=== PATIENT | female | born 1950 | race Caucasian/White ===

== ENCOUNTER → 2017-10-01 07:11 | Outpatient (CLI) | payer MEDICARE, BC, SELFPAY ==
[2017-10-01 09:07] LABS: Add Manual Diff / Slide Review NO; Basophils Percent Auto 1.2 % (0-2); Eosinophils Percent Auto 5.7 % (2-4); Hematocrit 38.4 % (36-46); Hemoglobin 12.8 g/dL (12.0-16.0); Lymphocytes Percent Auto 23.9 % (25-40); Mean Corpuscular HGB Conc 33.4 % (30-36); Mean Corpuscular Hemoglobin 29.2 PG (26-34); Mean Corpuscular Volume 87.4 fL (80-100); Monocytes Percent Auto 8.1 % (3-14); Neutrophils Absolute Auto 4800 /uL (3000-5900); Neutrophils Percent Auto 61.1 % (50-75); Platelet Count 230 X10^3/uL (150-400); Red Blood Cell Count 4.39 X10^6/uL (4.0-5.2); Red Cell Distribution Width 13.9 % (11.6-14.8); White Blood Cell Count 7.9 X10^3/uL (4.5-11.0)
[2017-10-01 09:28] LABS: Alanine Aminotransferase 38 IU/L (9-52); Albumin 4.1 g/dL (3.5-5.0); Albumin Globulin Ratio 1.8 (1.0-2.8); Alkaline Phosphatase 85 U/L (38-126); Aspartate Aminotransferase 27 IU/L (14-36); BUN Creatinine Ratio 17.5 (6-22); Bilirubin Total 0.5 mg/dL (0.2-1.3); Calcium 9.5 mg/dL (8.4-10.2); Creatine Kinase 110 U/L (30-135); Estimated Glomerular Filt Rate > 60.0 mL/min (>60); Globulin 2.3 g/dL (1.7-4.1); Glucose 88 mg/dL (80-110); HEMOLYSIS < 15 (0-50); Potassium 4.4 mmol/L (3.4-5.1); Sodium 141 mmol/L (137-145); Total Protein 6.4 g/dL (6.3-8.2)
[2017-10-03 12:59] LABS: Aldolase 5.2 U/L (< 8.2)
== END ==
PROVIDERS: PCP Family Medicine; Visit Provider Psychiatry & Neurology Neurology
DX: M60.9 Myositis, unspecified (principal)
CPT/HCPCS: 36415; 80053; 82085; 82550; 85025

== ENCOUNTER 2017-11-08 13:08 | Emergency (ER) | payer MEDICARE, BC, SELFPAY ==
[2017-11-08 13:23] VITALS: BP 160/96; PULSE 66; RESP 16; TEMP 36.4; O2SAT 97; BMI 32.8
[2017-11-08 13:36] LABS: Bacteria Urine None Seen; RBC Urine None Seen (0-5/HPF); WBC Urine None Seen (0-5/HPF)
[2017-11-08 13:37] LABS: Appearance Urine UA CLEAR; Bilirubin Urine UA NEGATIVE (NEGATIVE); Color Urine UA YELLOW; Glucose Urine UA NEGATIVE (Normal); Ketones Urine UA NEGATIVE (NEGATIVE); Leukocyte Esterase Urine UA NEGATIVE (NEGATIVE); Nitrite Urine UA Negative (Negative); Occult Blood Urine UA NEGATIVE (Negative); Protein Urine UA NEGATIVE (Negative); Urobilinogen Urine UA 0.2 E.U./dL (0.2)
[2017-11-08 13:43] LABS: Culture Indicated Urine Cult Not Indicated; Urine Comments Microscopic Normal
--- NOTE | 2017-11-08 14:01 | ED.ABDPAIN ---
HPI - Abdominal Pain <JENAE Moncada - Last Filed: 11/08/17 21:30> General Chief Complaint: Abdominal Pain Stated Complaint: Pt states possible pendicitis Time Seen by Provider: 11/08/17 13:32 History of Present Illness HPI narrative: 67-year-old female here for complaint of a right lower quadrant pain that started yesterday. She denies any trauma to the abdomen. She denies any stressor or relievers of the pain. Her last bowel movement was earlier today and was normal. No vomiting. She has had periodic nausea. No urinary symptoms. She was seen at walk-in clinic earlier today and was sent to the emergency room for further evaluation. She denies any other concerns or complaints at this time. MD complaint: abdominal pain Related Data Home Medications Medication Instructions Recorded Confirmed [turmeric] #0 05/17/16 11/08/17 coQ10 (ubiquinol) #0 05/17/16 11/08/17 vitamin B complex [B 1 tab PO QDAY #0 05/17/16 11/08/17 Complex-Vitamin B12] aspirin 81 mg PO QDAY #0 01/25/17 11/08/17 amlodipine [Norvasc] 2.5 mg PO QDAY #0 03/27/17 11/08/17 Previous Rx's Medication Instructions Recorded aripiprazole [Abilify] 10 mg PO QDAY #90 tab 06/09/17 neomycin-polymyxin B-dexameth 1 drp OP TID #5 ml 09/03/17 clobetasol 0.05 % topical ointment See Label Instructions TOP BID #15 10/23/17 gram hydrochlorothiazide 25 mg tablet 12.5 mg PO QDAY #90 tab 11/02/17 Allergies Allergy/AdvReac Type Severity Reaction Status Date / Time cimetidine [From TAGAMET] Allergy Mild hallucinati Verified 11/08/17 12:29 ons codeine [CODEINE] Allergy Mild hallucinati Verified 11/08/17 12:29 ons lisinopril [LISINOPRIL] Allergy Mild cough/GI Verified 11/08/17 12:29 issues ranitidine [From ZANTAC] Allergy Mild hallucinati Verified 11/08/17 12:29 ons Review of Systems <JENAE Moncada - Last Filed: 11/08/17 21:30> Constitutional Denies chills, Denies fatigue, Denies fever(s), Denies lethargy and Denies weakness Eyes Denies change in vision, Denies eye discharge, Denies irritation and Denies loss of vision ENT Ears, Nose, Mouth, and Throat: Denies change in voice, Denies neck pain and Denies sore throat Cardiovascular Denies dyspnea and Denies dyspnea on exertion Respiratory Denies cough, Denies dyspnea, Denies dyspnea on exertion and Denies wheezing Gastrointestinal Gastrointestinal: Reports abdominal pain and Reports nausea Genitourinary Denies hematuria, Denies flank pain, Denies urinary incontinence and Denies urinary urgency Musculoskeletal Denies neck pain Integumentary/Breasts Denies pruritus, Denies erythema, Denies rash and Denies wounds Neurologic Denies confusion, Denies loss of vision and Denies weakness Psychiatric Denies anxiety, Denies confusion, Denies depression, Denies homicidal ideation and Denies suicidal ideation Endocrine Denies fatigue and Denies flushing Hematologic/Lymphatic Denies easy bruising Allergic/Immunologic Denies wheezing Exam <JENAE Moncada - Last Filed: 11/08/17 21:30> Initial Vital Signs Initial Vital Signs: Vital Signs Temperature 97.6 F 11/08/17 13:23 Pulse Rate 66 11/08/17 13:23 Respiratory Rate 16 11/08/17 13:23 Blood Pressure 160/96 H 11/08/17 13:23 Pulse Oximetry 97 11/08/17 13:23 Const General: cooperative and well developed Nutritional Appearance: well nourished Orientation: alert, awake, oriented x3 and not confused [facility] Mouth: oral mucosae normal, oropharynx normal and moist mucous membranes Eyes General: appearance normal, both eyes and all related structures Eyelids: eyelids normal Conjunctivae: conjunctivae normal Sclera: sclerae normal Pupils: PERRL EOM: EOM intact bilaterally Resp Effort & Inspection: normal respiratory effort, able to speak in complete sentences, no respiratory distress and no use of accessory muscles Auscultation: clear to auscultation bilaterally, no rales, no rhonchi and no wheezes Cardio Rate: regular rate Rhythm: regular rhythm Heart Sounds: no click, no gallops, no murmurs and no rubs GI Inspection: normal to inspection Palpation: soft, no hepatosplenomegaly, No guarding, No pulsatile mass and tender Auscultation: normal bowel sounds General: No CVA tenderness Skin General: no rashes or lesions noted, No jaundice and No petechiae <DO Fernando Pan Last Filed: 11/09/17 07:17> Initial Vital Signs Initial Vital Signs: Vital Signs Temperature 97.6 F 11/08/17 13:23 Pulse Rate 66 11/08/17 13:23 Respiratory Rate 16 11/08/17 13:23 Blood Pressure 160/96 H 11/08/17 13:23 Pulse Oximetry 97 11/08/17 13:23 Course <JENAE Moncada - Last Filed: 11/08/17 21:30> Orders Ordered: Discontinued Medications Sodium Chloride (Normal Saline 0.9%) 1,000 mls @ 150 mls/hr IV CONT FREDDIE Last Infusion: 11/08/17 16:39 Dose: 0 mls/hr Admin: 11/08/17 15:00 Dose: 150 mls/hr Vital Signs - 8 hr 11/08/17 16:44 Pulse Rate 74 Respiratory Rate 15 Blood Pressure [Left Arm] 144/86 H Pulse Oximetry 96 <Declan Bond DO - Last Filed: 11/09/17 07:17> Orders Ordered: Discontinued Medications Sodium Chloride (Normal Saline 0.9%) 1,000 mls @ 150 mls/hr IV CONT FREDDIE Last Infusion: 11/08/17 16:39 Dose: 0 mls/hr Admin: 11/08/17 15:00 Dose: 150 mls/hr Vital Signs - 8 hr 11/08/17 16:44 Pulse Rate 74 Respiratory Rate 15 Blood Pressure [Left Arm] 144/86 H Pulse Oximetry 96 MDM - Abdominal Pain <JENAE Moncada - Last Filed: 11/08/17 21:30> Lab Data Result diagrams: 11/08/17 14:35 11/08/17 14:35 Lab Results 11/08/17 11/08/17 11/08/17 Range/Units 13:28 14:35 14:35 WBC 7.0 (4.5-11.0) X10^3/uL RBC 4.56 (4.0-5.2) X10^6/uL Hgb 13.0 (12.0-16.0) g/dL Hct 39.3 (36-46) % MCV 86.3 (80-100) fL MCH 28.6 (26-34) PG MCHC 33.1 (30-36) % RDW 14.4 (11.6-14.8) % Plt Count 278 (150-400) X10^3/uL Neut % (Auto) 62.3 (50-75) % Lymph % (Auto) 26.4 (25-40) % Sac % (Auto) 6.9 (3-14) % Eos % (Auto) 3.2 (2-4) % Baso % (Auto) 1.2 (0-2) % Neut # (Auto) 4400 (2794-8232) /uL Sodium 143 (137-145) mmol/L Potassium 4.1 (3.4-5.1) mmol/L Chloride 103 (98-107) mmol/L Carbon Dioxide 28 (22-32) mmol/L BUN 10 (7-17) mg/dL Creatinine 0.70 (0.52-1.04) mg/dL Estimated GFR > 60.0 (>60) mL/min BUN/Creatinine Ratio 14.3 (6-22) Glucose 89 (80-110) mg/dL Calcium 10.1 (8.4-10.2) mg/dL Total Bilirubin 0.5 (0.2-1.3) mg/dL AST 32 (14-36) IU/L ALT 41 (9-52) IU/L Alkaline Phosphatase 108 (38-126) U/L Total Protein 7.2 (6.3-8.2) g/dL Albumin 4.4 (3.5-5.0) g/dL Globulin 2.8 (1.7-4.1) g/dL Albumin/Globulin Ratio 1.6 (1.0-2.8) Lipase 114 (23-300) U/L Urine Color Yellow Urine Appearance Clear Urine pH 7.0 (4.5-8.0) Ur Specific [place] 1.010 (1.000-1.035) Urine Protein Negative (Negative) Urine Glucose (UA) Negative (Normal) g/dL Urine Ketones Negative (NEGATIVE) Urine Occult Blood Negative (Negative) Urine Nitrate Negative (Negative) Urine Bilirubin Negative (NEGATIVE) Urine Urobilinogen 0.2 (0.2) E.U./dL Ur Leukocyte Esterase Negative (NEGATIVE) Urine RBC None seen (0-5/HPF) Urine WBC None seen (0-5/HPF) Urine Bacteria None seen (None) Ur Culture Indicated? Cult not indicated Micro UA Comment Microscopic normal Imaging Data CT scan - abdomen: Radiologist's impression: PROCEDURE: CT ABDOMEN PELVIS W CON INDICATIONS: Pain right lower quadrant TECHNIQUE: After the administration of intravenous contrast, 5 mm thick sections acquired from the diaphragm to the symphysis. 5 mm coronal and sagittal reformats were acquired. For radiation dose reduction, the following was used: automated exposure control, adjustment of mA and/or kV according to patient size. COMPARISON: [facility], CT, ABDOMEN/PELVIS WITH CONTRAST, 08/05/2015, 13:30. FINDINGS: Image quality: Excellent. ABDOMEN: Lung bases: Lung bases are clear. Heart size is normal. Solid organs: Hepatic steatosis.. Gallbladder surgically absent. Biliary system is non dilated. Pancreas enhances normally. Spleen is normal in size and enhancement. No adrenal nodules. Kidneys demonstrate normal size and enhancement, without hydronephrosis. Peritoneum and bowel: Bowel loops demonstrate normal wall thickness and caliber. No free fluid or air. Normal appendix. Colonic diverticulosis. Nodes and vessels: No retroperitoneal or mesenteric adenopathy by size criteria. Aorta and inferior vena cava are normal in size. Miscellaneous: No ventral hernias. PELVIS: Genitourinary: Bladder wall thickness is normal. Miscellaneous: 3.5 x 3.7 cm right inguinal hernia which contains bowel loops. No evidence of obstruction seen at this time Bones: Unchanged size and appearance of water attenuation lesion within the spinal canal at the level of the sacrum with expansile appearance, since 08/05/15. No vertebral body compression fractures. IMPRESSION: Right inguinal hernia containing bowel loops without evidence of obstruction. This was present on the prior study dated 08/05/15. Normal appendix. Colonic diverticulosis. Chronic and incidental findings as above. MDM Narrative Medical decision making narrative: CBC Chem panel and lipase were obtained were unremarkable. Urinalysis was negative for any abnormalities. CT of the abdomen was obtained was negative for any acute findings. CT does show inguinal hernia however appears to be stable based on CT from 2016. No obstruction is appreciated on CT. No emergent cause for her pain is found today. Signs and symptoms and negative findings present as abdominal wall discomfort. [id number] Tylenol as needed for any discomfort. Follow up with primary care provider in the next few days for re-evaluation. For any worsening symptoms return to the emergency room. <Declan Bond DO - Last Filed: 11/09/17 07:17> Lab Data Lab Results 11/08/17 11/08/17 11/08/17 Range/Units 13:28 14:35 14:35 WBC 7.0 (4.5-11.0) X10^3/uL RBC 4.56 (4.0-5.2) X10^6/uL Hgb 13.0 (12.0-16.0) g/dL Hct 39.3 (36-46) % MCV 86.3 (80-100) fL MCH 28.6 (26-34) PG MCHC 33.1 (30-36) % RDW 14.4 (11.6-14.8) % Plt Count 278 (150-400) X10^3/uL Neut % (Auto) 62.3 (50-75) % Lymph % (Auto) 26.4 (25-40) % Sac % (Auto) 6.9 (3-14) % Eos % (Auto) 3.2 (2-4) % Baso % (Auto) 1.2 (0-2) % Neut # (Auto) 4400 (3171-1651) /uL Sodium 143 (137-145) mmol/L Potassium 4.1 (3.4-5.1) mmol/L Chloride 103 (98-107) mmol/L Carbon Dioxide 28 (22-32) mmol/L BUN 10 (7-17) mg/dL Creatinine 0.70 (0.52-1.04) mg/dL Estimated GFR > 60.0 (>60) mL/min BUN/Creatinine Ratio 14.3 (6-22) Glucose 89 (80-110) mg/dL Calcium 10.1 (8.4-10.2) mg/dL Total Bilirubin 0.5 (0.2-1.3) mg/dL AST 32 (14-36) IU/L ALT 41 (9-52) IU/L Alkaline Phosphatase 108 (38-126) U/L Total Protein 7.2 (6.3-8.2) g/dL Albumin 4.4 (3.5-5.0) g/dL Globulin 2.8 (1.7-4.1) g/dL Albumin/Globulin Ratio 1.6 (1.0-2.8) Lipase 114 (23-300) U/L Urine Color Yellow Urine Appearance Clear Urine pH 7.0 (4.5-8.0) Ur Specific [place] 1.010 (1.000-1.035) Urine Protein Negative (Negative) Urine Glucose (UA) Negative (Normal) g/dL Urine Ketones Negative (NEGATIVE) Urine Occult Blood Negative (Negative) Urine Nitrate Negative (Negative) Urine Bilirubin Negative (NEGATIVE) Urine Urobilinogen 0.2 (0.2) E.U./dL Ur Leukocyte Esterase Negative (NEGATIVE) Urine RBC None seen (0-5/HPF) Urine WBC None seen (0-5/HPF) Urine Bacteria None seen (None) Ur Culture Indicated? Cult not indicated Micro UA Comment Microscopic normal Discharge Plan Departure Patient Disposition: Home, Self-Care Clinical Impression: Abdominal pain Discharge Date/Time: 11/08/17 16:45 Interventions: ED Discharge Assessment Last Done: 11/08/17 16:44 Instructions: DI for Abdominal Pain-Adult Activity Restrictions/Additional Instructions: Laboratory results today were unremarkable. Urinalysis was negative for any abnormalities. CT of the abdomen was obtained was negative for any acute findings. CT does show inguinal hernia however appears to be stable based on CT from 2016. CT does show diverticulosis with no diverticulitis. No obstruction is appreciated on CT. No emergent cause for her pain is found today. Signs and symptoms and negative findings present as abdominal wall discomfort. [id number] Tylenol as needed for any discomfort. Follow up with primary care provider in the next few days for re-evaluation. For any worsening symptoms return to the emergency room. Prescriptions: No Action vitamin B complex [B Complex-Vitamin B12] 1 EACH tablet 1 tab PO QDAY Qty: 0 RF: 0 coQ10 (ubiquinol) 100 MG capsule Qty: 0 RF: 0 [turmeric] Qty: 0 RF: 0 aspirin 81 MG tablet,delayed release (DR/EC) 81 mg PO QDAY Qty: 0 RF: 0 amlodipine [Norvasc] 2.5 MG tablet 2.5 mg PO QDAY Qty: 0 RF: 0 aripiprazole [Abilify] 10 MG tablet 10 mg PO QDAY Qty: 90 RF: 0 neomycin-polymyxin B-dexameth 5 ML drops,suspension 1 drp OP TID Qty: 5 RF: 0 hydrochlorothiazide 25 mg tablet 12.5 mg PO QDAY Qty: 90 RF: 1 clobetasol 0.05 % ointment See Label Instructions TOP BID Qty: 15 RF: 1 Referrals: Rowdy Saldaña MD [Primary Care Provider] - <Declan Bond DO - Last Filed: 11/09/17 07:17> Cosign ED Attending Cosmikeature Attestation: I was immediately available in the department for consultation. Documentation has been reviewed. I agree with assessment and plan.
--- NOTE | 2017-11-08 14:16 | DI.CT.S_ITS ---
PROCEDURE: CT ABDOMEN PELVIS W CON INDICATIONS: Pain right lower quadrant TECHNIQUE: After the administration of intravenous contrast, 5 mm thick sections acquired from the diaphragm to the symphysis. 5 mm coronal and sagittal reformats were acquired. For radiation dose reduction, the following was used: automated exposure control, adjustment of mA and/or kV according to patient size. COMPARISON: [facility], CT, ABDOMEN/PELVIS WITH CONTRAST, 08/05/2015, 13:30. FINDINGS: Image quality: Excellent. ABDOMEN: Lung bases: Lung bases are clear. Heart size is normal. Solid organs: Hepatic steatosis.. Gallbladder surgically absent. Biliary system is non dilated. Pancreas enhances normally. Spleen is normal in size and enhancement. No adrenal nodules. Kidneys demonstrate normal size and enhancement, without hydronephrosis. Peritoneum and bowel: Bowel loops demonstrate normal wall thickness and caliber. No free fluid or air. Normal appendix. Colonic diverticulosis. Nodes and vessels: No retroperitoneal or mesenteric adenopathy by size criteria. Aorta and inferior vena cava are normal in size. Miscellaneous: No ventral hernias. PELVIS: Genitourinary: Bladder wall thickness is normal. Miscellaneous: 3.5 x 3.7 cm right inguinal hernia which contains bowel loops. No evidence of obstruction seen at this time Bones: Unchanged size and appearance of water attenuation lesion within the spinal canal at the level of the sacrum with expansile appearance, since 08/05/15. No vertebral body compression fractures. IMPRESSION: Right inguinal hernia containing bowel loops without evidence of obstruction. This was present on the prior study dated 08/05/15. Normal appendix. Colonic diverticulosis. Chronic and incidental findings as above. Dictated by: Christian Kelley M.D. on 11/08/2017 at 15:48 Approved by: Christian Kelley M.D. on 11/08/2017 at 15:56
[2017-11-08 14:42] LABS: Add Manual Diff / Slide Review NO; Basophils Percent Auto 1.2 % (0-2); Eosinophils Percent Auto 3.2 % (2-4); Hematocrit 39.3 % (36-46); Lymphocytes Percent Auto 26.4 % (25-40); Mean Corpuscular HGB Conc 33.1 % (30-36); Mean Corpuscular Hemoglobin 28.6 PG (26-34); Mean Corpuscular Volume 86.3 fL (80-100); Monocytes Percent Auto 6.9 % (3-14); Neutrophils Absolute Auto 4400 /uL (3000-5900); Neutrophils Percent Auto 62.3 % (50-75); Platelet Count 278 X10^3/uL (150-400); Red Blood Cell Count 4.56 X10^6/uL (4.0-5.2); Red Cell Distribution Width 14.4 % (11.6-14.8)
[2017-11-08 14:53] LABS: Alanine Aminotransferase 41 IU/L (9-52); Albumin 4.4 g/dL (3.5-5.0); Albumin Globulin Ratio 1.6 (1.0-2.8); Alkaline Phosphatase 108 U/L (38-126); Aspartate Aminotransferase 32 IU/L (14-36); BUN Creatinine Ratio 14.3 (6-22); Bilirubin Total 0.5 mg/dL (0.2-1.3); Blood Urea Nitrogen 10 mg/dL (7-17); Calcium 10.1 mg/dL (8.4-10.2); Carbon Dioxide 28 mmol/L (22-32); Chloride 103 mmol/L (98-107); Estimated Glomerular Filt Rate > 60.0 mL/min (>60); Globulin 2.8 g/dL (1.7-4.1); Glucose 89 mg/dL (80-110); HEMOLYSIS 27 (0-50); Lipase 114 U/L (23-300); Potassium 4.1 mmol/L (3.4-5.1); Sodium 143 mmol/L (137-145); Total Protein 7.2 g/dL (6.3-8.2)
[2017-11-08] MEDS: SODIUM CHLORIDE 0.9% 1,000 ML 150 ML IV (15:00)
[2017-11-08 16:44] VITALS: BP 144/86; PULSE 74; RESP 15; O2SAT 96
== END 2017-11-08 16:45 | disposition home or self-care (01) ==
PROVIDERS: Emergency Medicine; Emergency Provider Nurse Practitioner Family; Family Provider Family Medicine; PCP Family Medicine
DX: R10.9 Unspecified abdominal pain (principal)
CPT/HCPCS: 36415; 74177; 80053; 81001; 83690; 85025; 96360; 99283; 99284; Q9967

== ENCOUNTER → 2017-11-12 08:37 | Outpatient (CLI) | payer MEDICARE, BC, SELFPAY ==
--- NOTE | 2017-11-12 | DI.NM.S_ITS ---
PROCEDURE: NM BONE 3 PHASE RADIOPHARMACEUTICAL: 18.8 mCi Tc-99m MDP IV. INDICATIONS: RIGHT FOOT PAIN TECHNIQUE: Multiple bone scintigrams were obtained after intravenous injection of Tc-99m MDP, including flow, blood pool, and delayed images centered to the region of interest. COMPARISON: [facility] [place], CR, XR FOOT 3+ VIEWS RIGHT, 10/22/2017, 10:29. FINDINGS: Immediate blood flow images demonstrate no areas of hyperemia. Intermediate phase images demonstrate no areas of blood pooling. Delayed images demonstrate increased radiotracer uptake in the right fourth tarsal-metatarsal joint and in the first metatarsal-phalangeal joints bilaterally. No abnormal soft tissue uptake identified in the delayed images. No areas of photopenia identified in the delayed images. IMPRESSION: 1. Normal immediate blood flow and intermediate blood pool phase images. 2. Increased delayed phase radiotracer uptake involving the right fourth tarsal-metatarsal joint and the bilateral first metatarsal phalange joints most compatible with osteoarthritis. Dictated by: Cheri Perez MD, PhD on 11/12/2017 at 16:35 Approved by: Cheri Perez MD, PhD on 11/12/2017 at 16:40
== END ==
PROVIDERS: Family Provider Family Medicine; PCP Family Medicine; Visit Provider Podiatrist
DX: M79.671 Pain in right foot (principal)
CPT/HCPCS: 78315; A9503

== ENCOUNTER → 2018-02-15 10:35 | Outpatient (CLI) | payer MEDICARE, BC, SELFPAY ==
[2018-02-15 11:21] LABS: Add Manual Diff / Slide Review NO; Basophils Percent Auto 1.2 % (0-2); Eosinophils Percent Auto 6.8 % (2-4); Hemoglobin 12.7 g/dL (12.0-16.0); Lymphocytes Percent Auto 25.2 % (25-40); Mean Corpuscular HGB Conc 33.5 % (30-36); Mean Corpuscular Hemoglobin 29.3 PG (26-34); Mean Corpuscular Volume 87.4 fL (80-100); Monocytes Percent Auto 9.8 % (3-14); Neutrophils Absolute Auto 4500 /uL (3000-5900); Platelet Count 231 X10^3/uL (150-400); Red Blood Cell Count 4.35 X10^6/uL (4.0-5.2); Red Cell Distribution Width 14.5 % (11.6-14.8); White Blood Cell Count 7.9 X10^3/uL (4.5-11.0)
[2018-02-15 11:38] LABS: Appearance Urine UA CLEAR; Bilirubin Urine UA NEGATIVE (NEGATIVE); Color Urine UA YELLOW; Glucose Urine UA NEGATIVE (Normal); Ketones Urine UA NEGATIVE (NEGATIVE); Leukocyte Esterase Urine UA NEGATIVE (NEGATIVE); Nitrite Urine UA Negative (Negative); Occult Blood Urine UA NEGATIVE (Negative); Protein Urine UA NEGATIVE (Negative); Specific Gravity Urine UA <=1.005 (1.000-1.035); Urobilinogen Urine UA 0.2 E.U./dL (0.2)
[2018-02-15 11:50] LABS: Alanine Aminotransferase 34 IU/L (9-52); Albumin 4.2 g/dL (3.5-5.0); Albumin Globulin Ratio 1.8 (1.0-2.8); Alkaline Phosphatase 107 U/L (38-126); Aspartate Aminotransferase 29 IU/L (14-36); BUN Creatinine Ratio 15.7 (6-22); Bilirubin Total 0.4 mg/dL (0.2-1.3); Blood Urea Nitrogen 11 mg/dL (7-17); Carbon Dioxide 31 mmol/L (22-32); Chloride 104 mmol/L (98-107); Estimated Glomerular Filt Rate > 60.0 mL/min (>60); Globulin 2.4 g/dL (1.7-4.1); Glucose 79 mg/dL (80-110); HEMOLYSIS < 15 (0-50); Potassium 4.4 mmol/L (3.4-5.1); Sodium 144 mmol/L (137-145); Total Protein 6.6 g/dL (6.3-8.2)
== END ==
PROVIDERS: Family Provider Family Medicine; PCP Family Medicine; Visit Provider Internal Medicine
DX: I10 Essential (primary) hypertension (principal); K40.90 Unilateral inguinal hernia, without obstruction or gangrene, not specified as recurrent; R10.31 Right lower quadrant pain
CPT/HCPCS: 36415; 80053; 81003; 85025

== ENCOUNTER → 2018-04-02 12:25 | Outpatient (CLI) | payer MEDICARE, BC, SELFPAY ==
--- NOTE | 2018-04-02 | DI.CT.S_ITS ---
PROCEDURE: CT CHEST W CON INDICATIONS: SHORTNESS OF BREATH TECHNIQUE: After the administration of intravenous contrast, 5 mm thick sections acquired from the pulmonary apices to the posterior costophrenic angles. 7 mm thick coronal and sagittal MIP reformats were acquired. For radiation dose reduction, the following was used: automated exposure control, adjustment of mA and/or kV according to patient size. COMPARISON: None. FINDINGS: Image quality: Excellent. Lungs and pleura: No acute consolidation. Minimal scattered subsegmental scarring or atelectasis.. No pleural effusions or pneumothorax. Central and peripheral airways are patent and normal in caliber. Mediastinum: Heart size is normal. Coronary artery calcifications are present. No pericardial effusion. Incidental calcified right hilar lymph node on image 22. No mediastinal or hilar adenopathy by size criteria. Thoracic aorta and central pulmonary arteries are normal in size. Esophagus is normal in caliber. No hiatal hernia. Bones and chest wall: No suspicious bony lesions. No vertebral body compression fractures. No axillary or supraclavicular adenopathy by size criteria. Thyroid gland unremarkable. Mild hepatic steatosis. IMPRESSION: No acute consolidation. Mild hepatic steatosis incidentally noted. Coronary artery disease. Dictated by: Christian Kelley M.D. on 04/02/2018 at 13:48 Approved by: Christian Kelley M.D. on 04/02/2018 at 13:52
[2018-04-02 12:52] LABS: BUN Creatinine Ratio 12.5 (6-22); Blood Urea Nitrogen 10 mg/dL (7-17); Estimated Glomerular Filt Rate > 60.0 mL/min (>60)
== END ==
PROVIDERS: Family Provider Family Medicine; PCP Family Medicine; Visit Provider Psychiatry & Neurology Neurology
DX: R06.02 Shortness of breath (principal); I25.10 Atherosclerotic heart disease of native coronary artery without angina pectoris; K76.0 Fatty (change of) liver, not elsewhere classified; M62.81 Muscle weakness (generalized)
CPT/HCPCS: 36415; 71260; 82565; 84520; Q9967

== ENCOUNTER → 2018-04-15 10:20 | Outpatient (CLI) | payer MEDICARE, BC, SELFPAY ==
--- NOTE | 2018-04-15 | DI.MRI.S_ITS ---
PROCEDURE: MR HEAD/BRAIN WO/W CON INDICATIONS: vertigo TECHNIQUE: Noncontrast axial T1 spin echo, axial T2 fast spin echo, sagittal and axial FLAIR, coronal T2 fast spin echo, axial gradient echo, axial diffusion and ADC through the brain. After the administration of contrast, axial and coronal 3D VIBE or T1 spin echo with fat saturation through the brain. COMPARISON: None. FINDINGS: Image quality: Excellent. CSF Spaces: Basal cisterns are patent. No extra-axial fluid collections. Ventricles are normal in shape. There is prominence of the ventricles which represents central volume loss versus normal pressure hydrocephalus. Brain: No midline shift. No intracranial bleeds or masses. No abnormal intracranial enhancement. Mild periventricular and subcortical white matter chronic microvascular ischemic changes noted. The brainstem appears normal. Diffusion-weighted images demonstrate no acute ischemic insults. No chronic ischemic insults. Normal intravascular flow voids are present. Skull and face: Calvarial marrow is normal in signal. Orbits appear normal. Sinuses: Mucosal thickening and air-fluid level noted in the left maxillary sinus. The mastoids appear clear. IMPRESSION: 1. No acute intracranial disease process. 2. Mild ventriculomegaly which could be due to central volume loss versus normal pressure hydrocephalus. Please correlate with clinical data. 3. Mild, diffuse cerebral volume loss 4. Mild periventricular and subcortical white matter chronic microvascular ischemic changes. 5. No abnormal intracranial mass or suspicious postcontrast enhancement. 6. Left maxillary sinus mucosal thickening and air-fluid level compatible with acute superimposed on chronic sinusitis. Dictated by: Cheri Perez MD, PhD on 04/15/2018 at 15:55 Approved by: Cheri Perez MD, PhD on 04/15/2018 at 16:00
== END ==
PROVIDERS: Family Provider Family Medicine; PCP Family Medicine; Visit Provider Psychiatry & Neurology Neurology
DX: R42 Dizziness and giddiness (principal); G93.89 Other specified disorders of brain; J01.00 Acute maxillary sinusitis, unspecified
CPT/HCPCS: 70553; A9579

== ENCOUNTER → 2018-06-28 14:30 | Outpatient (CLI) | payer MEDICARE, BC, SELFPAY ==
--- NOTE | 2018-06-28 | DI.MG.S_ITS ---
BILATERAL DIGITAL SCREENING MAMMOGRAM 3D/2D WITH CAD: 06/28/2018 CLINICAL: Routine screening. Family history of breast cancer. Comparison is made to exams dated: 06/24/2017 mammogram, 05/28/2016 mammogram, and 05/15/2015 mammogram - [facility]. There are scattered fibroglandular elements in both breasts. Current study was also evaluated with a Computer Aided Detection (CAD) system. There are benign calcifications in both breasts. No significant masses, calcifications, or other findings are seen in either breast. There has been no significant interval change. IMPRESSION: There is no mammographic evidence of malignancy. A 1 year screening mammogram is recommended. This exam was interpreted at Station ID: [id number]. NOTE: For mammograms, a report in lay terms will be sent to the patient. Approximately 15% of breast malignancies will not be visualized mammographically. In the management of a palpable breast mass, a negative mammogram must not discourage biopsy of a clinically suspicious lesion. Electronically Signed By: Jimbo ramirez/eleonora:06/28/2018 15:31:23 letter sent: Normal Exam ACR BI-RADS Category 2: Benign Finding(s) 3342F
== END ==
PROVIDERS: PCP Family Medicine; Visit Provider Family Medicine
DX: Z12.31 Encounter for screening mammogram for malignant neoplasm of breast (principal); Z80.3 Family history of malignant neoplasm of breast
CPT/HCPCS: 77063; 77067

== ENCOUNTER → 2018-07-15 11:29 | Outpatient (CLI) | payer MEDICARE, BC, SELFPAY ==
[2018-07-15 11:56] LABS: Add Manual Diff / Slide Review NO; Basophils Absolute Auto 100 /uL (0-100); Basophils Percent Auto 0.8 % (0-2); Eosinophils Absolute Auto 400 /uL (0-450); Eosinophils Percent Auto 4.2 % (2-4); Hematocrit 38.4 % (36-46); Hemoglobin 12.7 g/dL (12.0-16.0); Lymphocytes Absolute Auto 2200 /uL (1100-4500); Lymphocytes Percent Auto 23.8 % (25-40); Mean Corpuscular Hemoglobin 28.7 PG (26-34); Monocytes Absolute Auto 600 /uL (0-900); Monocytes Percent Auto 6.9 % (3-14); Neutrophils Absolute Auto 5900 /uL (1500-7000); Neutrophils Percent Auto 64.3 % (50-75); Platelet Count 293 X10^3/uL (150-400); Red Blood Cell Count 4.41 X10^6/uL (4.0-5.2); Red Cell Distribution Width 14.5 % (11.6-14.8); White Blood Cell Count 9.2 X10^3/uL (4.5-11.0)
[2018-07-15 14:00] LABS: Vitamin B12 893 pg/mL (239-931)
== END ==
PROVIDERS: PCP Family Medicine; Visit Provider Family Medicine
DX: R06.02 Shortness of breath (principal); R53.82 Chronic fatigue, unspecified
CPT/HCPCS: 36415; 82607; 85025

== ENCOUNTER → 2018-09-30 11:57 | Outpatient (CLI) | payer OTHER, MEDICARE, BC, SELFPAY ==
--- NOTE | 2018-09-30 | DI.RAD.S_ITS ---
PROCEDURE: XR LUMBAR SPINE 2-3V INDICATIONS: Lumbago with sciatica, right side TECHNIQUE: 3 views of the lumbar spine were acquired. COMPARISON: [facility], , -SPINE 2-3 VIEWS, 06/03/2017, 14:24. FINDINGS: Bones: No fracture or focal osseous destruction. Multilevel degenerative endplate sclerosis and spurring. Diffuse facet arthropathy. Dextrocurvature of the lumbar spine. Diffuse mild to moderate narrowing of the lumbar disc spaces, without definite interval change. Soft tissues: Overlying bowel gas pattern is normal. No suspicious soft tissue calcifications. IMPRESSION: No interval change in diffuse lumbar spondylosis and dextroscoliosis since 06/03/17. Dictated by: Christian Kelley M.D. on 09/30/2018 at 13:20 Approved by: Christian Kelley M.D. on 09/30/2018 at 13:22
== END ==
PROVIDERS: PCP Family Medicine; Visit Provider Internal Medicine
DX: M54.41 Lumbago with sciatica, right side (principal); M47.816 Spondylosis without myelopathy or radiculopathy, lumbar region; M41.86 Other forms of scoliosis, lumbar region
CPT/HCPCS: 72100

== ENCOUNTER 2018-11-10 19:39 | Emergency (ER) | payer MEDICARE, BC, SELFPAY ==
[2018-11-10 19:40] VITALS: BP 187/86; PULSE 80; RESP 14; TEMP 36.7; O2SAT 97
--- NOTE | 2018-11-10 19:52 | DI.CT.S_ITS ---
PROCEDURE: CT HEAD/BRAIN WO CON INDICATIONS: worst headache of life, sent by PCP. Headache since 10 AM. TECHNIQUE: Noncontrast 4.5 mm thick angled axial sections acquired from the foramen magnum to the vertex, with coronal and sagittal reformats. For radiation dose reduction, the following was used: automated exposure control, adjustment of mA and/or kV according to patient size. COMPARISON: [facility], MR, MR HEAD/BRAIN WO/W CON, 04/15/2018, 10:38. FINDINGS: Image quality: Excellent. CSF spaces: Basal cisterns are patent. No extra-axial fluid collections. Ventricles are normal in size and shape. Brain: No midline shift. No intracranial masses or hemorrhage. Duong-white matter interface is normal. Mild small vessel ischemic change. Skull and face: Calvarium and visualized facial bones are intact, without suspicious lesions. Sinuses: Left maxillary sinus air-fluid level. IMPRESSION: 1. Acute left maxillary sinusitis. 2. Negative for acute stroke, hemorrhage, or mass. 3. Mild small vessel ischemic change. Dictated by: Ernie Peralta M.D. on 11/10/2018 at 20:08 Approved by: Ernie Peralta M.D. on 11/10/2018 at 20:10
[2018-11-10 19:58] LABS: Add Manual Diff / Slide Review NO; Basophils Absolute Auto 100 /uL (0-100); Basophils Percent Auto 0.6 % (0-2); Eosinophils Absolute Auto 0 /uL (0-450); Hematocrit 36.1 % (36-46); Hemoglobin 12.1 g/dL (12.0-16.0); Lymphocytes Absolute Auto 1500 /uL (1100-4500); Lymphocytes Percent Auto 17.1 % (25-40); Mean Corpuscular HGB Conc 33.7 % (30-36); Mean Corpuscular Hemoglobin 29.2 PG (26-34); Mean Corpuscular Volume 86.7 fL (80-100); Monocytes Absolute Auto 500 /uL (0-900); Neutrophils Absolute Auto 6500 /uL (1500-7000); Neutrophils Percent Auto 76.3 % (50-75); Platelet Count 284 X10^3/uL (150-400); Red Blood Cell Count 4.16 X10^6/uL (4.0-5.2); Red Cell Distribution Width 14.2 % (11.6-14.8); White Blood Cell Count 8.6 X10^3/uL (4.5-11.0)
[2018-11-10 20:08] LABS: BUN Creatinine Ratio 23.3 (6-22); Blood Urea Nitrogen 14 mg/dL (7-17); Calcium 9.8 mg/dL (8.4-10.2); Carbon Dioxide 24 mmol/L (22-32); Chloride 97 mmol/L (98-107); Estimated Glomerular Filt Rate > 60.0 mL/min (>60); Glucose 132 mg/dL (80-110); HEMOLYSIS < 15 (0-50); Potassium 3.8 mmol/L (3.4-5.1); Sodium 133 mmol/L (137-145)
[2018-11-10 20:12] LABS: C-Reactive Protein Quant 0.6 mg/dL (<1.0)
[2018-11-10 20:26] LABS: Erythrocyte Sedimentation Rate 15 MM/HR (0-20)
[2018-11-10] MEDS: SODIUM CHLORIDE 0.9% 1,000 ML 1000 ML IV (20:26)
[2018-11-10] MEDS: KETOROLAC 60 MG/2 ML VIAL 15 MG IV (20:26)
[2018-11-10 20:32] VITALS: BP 162/89; PULSE 57; RESP 16; O2SAT 96
--- NOTE | 2018-11-10 20:54 | ED_ITS ---
HPI - Headache General Chief Complaint: Headache Stated Complaint: headache, buzzing in ears Time Seen by Provider: 11/10/18 19:40 Source: patient and family Mode of arrival: ambulatory Limitations: no limitations History of Present Illness HPI Narrative: A 60-year-old female nonsmoker with history of hypertension and ongoing evaluation for possible muscular dystrophy given the evolution of generalized weakness over the past 2years or so. She presents with her and the chief complaint of severe frontal headache and ringing ears over the course of the day. She comes at the request of her PCP for evaluation. She denies any injury, use of blood thinners or other symptoms such as blurred vision, trouble with speech, focal neurologic symptoms such as numbness, tingling or weakness out of character with her norm. She states she does have a history of blood pressure and is found to be slightly elevated today. She denies chest pain, shortness of breath or abdominal pain. She denies any specific provocation, palliation or radiation. She has no fever nor neck pain Related Data Home Medications Medication Instructions Recorded Confirmed [turmeric] #0 05/17/16 11/08/18 coQ10 (ubiquinol) #0 05/17/16 11/08/18 vitamin B complex [B 1 tab PO QDAY #0 05/17/16 11/08/18 Complex-Vitamin B12] aspirin 81 mg PO QDAY #0 01/25/17 11/08/18 Previous Rx's Medication Instructions Recorded neomycin-polymyxin B-dexameth 1 drp OP TID #5 ml 09/03/17 losartan 50 mg-hydrochlorothiazide 1 tab PO DAILY #90 tab 01/04/18 12.5 mg tablet aripiprazole 20 mg tablet 10 mg PO DAILY #45 tab 03/08/18 prednisolone 5 mg (48 tabs) See Rx Instructions PO PER PKG DIR 11/08/18 tablets in a dose pack #48 each Allergies Allergy/AdvReac Type Severity Reaction Status Date / Time cimetidine [From TAGAMET] Allergy Mild hallucinati Verified 11/10/18 19:50 ons codeine [CODEINE] Allergy Mild hallucinati Verified 11/10/18 19:50 ons lisinopril [LISINOPRIL] Allergy Mild cough/GI Verified 11/10/18 19:50 issues ranitidine [From ZANTAC] Allergy Mild hallucinati Verified 11/10/18 19:50 ons Review of Systems Constitutional Denies chills, Denies fever(s), Reports headache(s), Denies lethargy and Denies weakness Eyes Denies change in vision, Denies eye discharge, Denies irritation and Denies loss of vision ENT Ears, Nose, Mouth, and Throat: Denies change in voice, Reports headache(s), Denies neck pain and Denies sore throat Cardiovascular Denies chest pain, Denies irregular heart rhythm, Denies lightheadedness, Denies palpitations, Denies dyspnea, Denies dyspnea on exertion and Denies orthopnea Respiratory Denies cough, Denies dyspnea, Denies dyspnea on exertion and Denies wheezing Gastrointestinal Gastrointestinal: Denies abdominal pain, Denies change in bowel habits, Denies diarrhea, Denies nausea and Denies vomiting Genitourinary Denies hematuria, Denies flank pain, Denies urinary incontinence and Denies urinary urgency Musculoskeletal Denies neck pain Integumentary/Breasts Denies pruritus, Denies erythema, Denies rash and Denies wounds Neurologic Denies confusion, Reports headache(s), Denies loss of vision and Denies weakness Psychiatric Denies anxiety, Denies confusion, Denies depression, Denies homicidal ideation and Denies suicidal ideation Endocrine Denies palpitations Hematologic/Lymphatic Denies easy bruising Allergic/Immunologic Denies wheezing PFSH Medical History Cervical dystonia (Chronic 1986) Depression (Chronic 1974) Hyperlipidemia (Chronic) Hypertension (Chronic) Peripheral neuropathy (Chronic 2012) SOB (shortness of breath) (Chronic 2010) Sjogren's syndrome (Chronic 2012) Sleep apnea (Chronic 2009) CTS (carpal tunnel syndrome) (Resolved 1986) Chicken pox (Resolved 1956) Cholecystectomy planned (Resolved) Colon polyps (Resolved) Denervation of muscle (Resolved) Measles (Resolved 1957) Mumps (Resolved 1958) Skin cancer (Resolved 2015) Status post DANILO-BSO (Resolved) Surgical History Anesthesia complication (Resolved) History of carpal tunnel repair (Resolved 1989) History of cervical spinal surgery (Resolved 07/2008) History of laparoscopic cholecystectomy (Resolved 2006) S/P DANILO-BSO (total abdominal hysterectomy and bilateral salpingo-oophorectomy) (Resolved 01/2007) Status post hernia repair (Resolved 2013) Status post hernia repair (Resolved 2007) Family History Brother Age: 61 Prostate cancer Heart disease Hypertension High cholesterol Heart attack Brother Age: 59 Hypertension Mental health problem Kidney transplant recipient Chronic kidney disease with end stage renal failure on dialysis Father Colon cancer Heart disease Mental health problem Heart failure Grandfather Heart disease Hypertension Brain aneurysm Mother Cancer Hypertension NHL (non-Hodgkin's lymphoma) Grandmother Stroke Sister Age: 67 Celiac disease High cholesterol Mental health problem Thyroid disorder Sister Age: 63 Psoriatic arthritis Thyroid disorder Grandmother Alzheimer's disease Grandfather Colon cancer Sister Breast cancer Sister Suicide Brother No problems noted. Sister Thyroid disorder Social History Smoking Status: Never smoker Family History Brother Age: 61 Prostate cancer Heart disease Hypertension High cholesterol Heart attack Brother Age: 59 Hypertension Mental health problem Kidney transplant recipient Chronic kidney disease with end stage renal failure on dialysis Father Colon cancer Heart disease Mental health problem Heart failure Grandfather Heart disease Hypertension Brain aneurysm Mother Cancer Hypertension NHL (non-Hodgkin's lymphoma) Grandmother Stroke Sister Age: 67 Celiac disease High cholesterol Mental health problem Thyroid disorder Sister Age: 63 Psoriatic arthritis Thyroid disorder Grandmother Alzheimer's disease Grandfather Colon cancer Sister Breast cancer Sister Suicide Brother No problems noted. Sister Thyroid disorder Social History Smoking Status: Never smoker Exam Narrative Exam Narrative: GENERAL: This is a well-nourished, well-developed patient, in mild distress. HEAD: Atraumatic. Normocephalic. No temporal or scalp tenderness. EYES: Pupils equal round and reactive. Extraocular motions intact. No scleral icterus. No injection or drainage. ENT: Nose without bleeding, purulent drainage or septal hematoma. Throat without erythema, tonsillar hypertrophy or exudate. Uvula midline. Airway patent. NECK: Trachea midline. No JVD or lymphadenopathy. Supple, nontender, no meningeal signs. CARDIOVASCULAR: Regular rate and rhythm without murmurs, gallops, or rubs. RESPIRATORY: Clear to auscultation. Breath sounds equal bilaterally. No wheezes, rales, or rhonchi. GASTROINTESTINAL: Abdomen soft, non-tender, nondistended. No hepato-sp lenomegaly, or palpable masses. No guarding. EXTREMITIES: No clubbing, cyanosis, or edema. No joint tenderness, effusion, or edema noted. BACK: Nontender without deformity or crepitance. No flank tenderness. NEURO: AOx3. SKIN: No rash or erythema. Initial Vital Signs Initial Vital Signs: Vital Signs Temperature 98.1 F 11/10/18 19:40 Pulse Rate 80 11/10/18 19:40 Respiratory Rate 14 11/10/18 19:40 Blood Pressure 187/86 H 11/10/18 19:40 Pulse Oximetry 97 11/10/18 19:40 Course Orders Ordered: ED Orders 11/10/18 19:43 Basic Metabolic Panel Stat C-Reactive Protein Quant Stat Complete Blood Count AUTO DIFF Stat Erythrocyte Sedimentation Rate Stat 11/10/18 19:52 CT head/brain wo con Stat Discontinued Medications Sodium Chloride (Normal Saline 0.9%) 1,000 mls @ 1,000 mls/hr IV BOLUS ONE Stop: 11/10/18 21:17 Last Admin: 11/10/18 20:26 Dose: 1,000 mls/hr Ketorolac Tromethamine (Toradol) 15 mg IV NOW ONE Stop: 11/10/18 20:19 Last Admin: 11/10/18 20:26 Dose: 15 mg Reevaluation(s) Reevaluation #1: patient had near complete resolution of symptoms after above stated therapies. BP down to 160s Vital Signs - 8 hr 11/10/18 19:40 11/10/18 20:32 Temperature 98.1 F Pulse Rate 80 57 L Respiratory Rate 14 16 Blood Pressure 187/86 H Blood Pressure [Left Arm] 162/89 H Pulse Oximetry 97 96 MDM - Headache Lab Data Result diagrams: 11/10/18 19:43 11/10/18 19:43 Lab Results 11/10/18 11/10/18 11/10/18 Range/Units 19:43 19:43 19:43 WBC 8.6 (4.5-11.0) X10^3/uL RBC 4.16 (4.0-5.2) X10^6/uL Hgb 12.1 (12.0-16.0) g/dL Hct 36.1 (36-46) % MCV 86.7 (80-100) fL MCH 29.2 (26-34) PG MCHC 33.7 (30-36) % RDW 14.2 (11.6-14.8) % Plt Count 284 (150-400) X10^3/uL Neut % (Auto) 76.3 H (50-75) % Lymph % (Auto) 17.1 L (25-40) % [place] % (Auto) 6.0 (3-14) % Eos % (Auto) 0.0 L (2-4) % Baso % (Auto) 0.6 (0-2) % Neut # (Auto) 6500 (8462-0668) /uL Lymph # (Auto) 1500 (1351-1096) /uL [place] # (Auto) 500 (0-900) /uL Eos # (Auto) 0 (0-450) /uL Baso # (Auto) 100 (0-100) /uL ESR 15 (0-20) MM/HR Sodium (137-145) mmol/L Potassium (3.4-5.1) mmol/L Chloride (98-107) mmol/L Carbon Dioxide (22-32) mmol/L BUN (7-17) mg/dL Creatinine (0.52-1.04) mg/dL Estimated GFR (>60) mL/min BUN/Creatinine Ratio (6-22) Glucose (80-110) mg/dL Calcium (8.4-10.2) mg/dL C-Reactive Protein 0.6 (<1.0) mg/dL 11/10/18 Range/Units 19:43 WBC (4.5-11.0) X10^3/uL RBC (4.0-5.2) X10^6/uL Hgb (12.0-16.0) g/dL Hct (36-46) % MCV (80-100) fL MCH (26-34) PG MCHC (30-36) % RDW (11.6-14.8) % Plt Count (150-400) X10^3/uL Neut % (Auto) (50-75) % Lymph % (Auto) (25-40) % [place] % (Auto) (3-14) % Eos % (Auto) (2-4) % Baso % (Auto) (0-2) % Neut # (Auto) (4452-5057) /uL Lymph # (Auto) (9038-8035) /uL [place] # (Auto) (0-900) /uL Eos # (Auto) (0-450) /uL Baso # (Auto) (0-100) /uL ESR (0-20) MM/HR Sodium 133 L (137-145) mmol/L Potassium 3.8 (3.4-5.1) mmol/L Chloride 97 L (98-107) mmol/L Carbon Dioxide 24 (22-32) mmol/L BUN 14 (7-17) mg/dL Creatinine 0.60 (0.52-1.04) mg/dL Estimated GFR > 60.0 (>60) mL/min BUN/Creatinine Ratio 23.3 H (6-22) Glucose 132 H (80-110) mg/dL Calcium 9.8 (8.4-10.2) mg/dL C-Reactive Protein (<1.0) mg/dL Imaging Data CT scan - head: Radiologist's impression: NAP MDM Narrative Medical decision making narrative: Multiple etiologies for patient's symptoms considered including: [SAH vs. meningitis vs. HTN vs. other] Patient's symptoms improved or duration of stay with above-stated therapies. Findings and discharge diagnosis discussed with patient/family followed by verb alization of understanding Return precautions discussed with patient/family whom verbalize understanding. Discharge Plan Departure Patient Disposition: Home Clinical Impression: Headache Qualifiers: Headache type: unspecified Headache chronicity pattern: acute headache Intractability: not intractable Qualified Code(s): R51 - Headache Discharge Date/Time: 11/10/18 21:15 Interventions: ED Discharge Assessment Last Done: 11/10/18 21:15 Instructions: DI for Headache Activity Restrictions/Additional Instructions: *You have been diagnosed with [acute nonspecific headache] *What to do: *Take medications as directed, however (as discussed) it seems reasonable to stop the Prednisone *Follow up with your primary care provider in 2-3 days, call for an ap pointment. Let them know you were seen in the Emergency Department and that we ask that you be seen in follow up *Return to ER if you should have any new, worsening or concerning symptoms, such as [worsening headache, vomiting, fever > 101F, focal (one sided) neurologic problems, or any other concerning symptoms. ] Prescriptions: No Action vitamin B complex [B Complex-Vitamin B12] 1 EACH tablet 1 tab PO QDAY Qty: 0 RF: 0 coQ10 (ubiquinol) 100 MG capsule Qty: 0 RF: 0 [turmeric] Qty: 0 RF: 0 aspirin 81 MG tablet,delayed release (DR/EC) 81 mg PO QDAY Qty: 0 RF: 0 neomycin-polymyxin B-dexameth 5 ML drops,suspension 1 drp OP TID Qty: 5 RF: 0 aripiprazole 20 mg tablet 10 mg PO DAILY Qty: 45 RF: 3 Millipred DP 5 mg (48 tabs) tablets,dose pack See Rx Instructions PO PER PKG DIR Qty: 48 RF: 3 losartan-hydrochlorothiazide 50-12.5 mg tablet 1 tab PO DAILY Qty: 90 RF: 3 Referrals: Rowdy Saldaña MD [Primary Care Provider] -
== END 2018-11-10 21:15 | disposition home or self-care (01) ==
PROVIDERS: Emergency Provider Emergency Medicine; PCP Family Medicine
DX: R51 Headache (principal)
CPT/HCPCS: 36591; 70450; 80048; 85025; 85651; 86140; 96361; 96374; 99283; 99284; J1885

== ENCOUNTER → 2018-11-15 10:03 | Outpatient (CLI) | payer MEDICARE, BC, SELFPAY | PROVIDERS: PCP Nurse Practitioner; Visit Provider Nurse Practitioner | DX: M85.852 Other specified disorders of bone density and structure, left thigh (principal); Z78.0 Asymptomatic menopausal state; Z90.722 Acquired absence of ovaries, bilateral | CPT/HCPCS: 77080 ==

== ENCOUNTER → 2018-11-23 17:07 | Outpatient (CLI) | payer MEDICARE, BC, SELFPAY ==
--- NOTE | 2018-11-23 17:11 | DI.MRI.S_ITS ---
PROCEDURE: MR HEAD/BRAIN WO/W CON INDICATIONS: HTN, anomia, headache TECHNIQUE: Noncontrast axial T1 spin echo, axial T2 fast spin echo, sagittal and axial FLAIR, coronal T2 fast spin echo, axial gradient echo, axial diffusion and ADC through the brain. After the administration of contrast, axial and coronal T1 spin echo with fat saturation through the brain. COMPARISON: [facility], , MR HEAD/BRAIN WO/W CON, 04/15/2018, 10:38. FINDINGS: Image quality: Excellent. CSF spaces: Basal cisterns are patent. No extra-axial fluid collections. Ventricles are mildly enlarged, as before. Brain: No midline shift. No intracranial bleeds or masses. No abnormal intracranial enhancement. There is cerebral volume loss for age. There is periventricular white matter chronic small vessel ischemic change. The brainstem appears normal. Diffusion-weighted images demonstrate no acute ischemic insults. No chronic ischemic insults. Normal intravascular flow voids are present. Skull and face: Calvarial marrow is normal in signal. Orbits appear normal. Sinuses: Mild left maxillary sinus the coastal thickening. Air-fluid level within the left maxillary sinus. Sinuses and mastoids otherwise appear clear. IMPRESSION: 1. Mild volume loss and small vessel ischemic disease. 2. No acute process. No recent infarct. 3. Left maxillary sinus disease. Dictated by: Keo Pope M.D. on 11/23/2018 at 18:14 Approved by: Keo Pope M.D. on 11/23/2018 at 18:16
== END ==
PROVIDERS: Family Provider Nurse Practitioner; PCP Nurse Practitioner; Visit Provider Nurse Practitioner
DX: R51 Headache (principal); I10 Essential (primary) hypertension; R48.8 Other symbolic dysfunctions; J32.0 Chronic maxillary sinusitis
CPT/HCPCS: 70553; A9579

== ENCOUNTER 2018-12-08 18:45 | Emergency (ER) | payer MEDICARE, BC, SELFPAY ==
[2018-12-08 18:47] VITALS: BP 151/84; PULSE 71; RESP 20; TEMP 36.2; O2SAT 97; BMI 32.2
--- NOTE | 2018-12-08 20:08 | ED.HA ---
HPI - Headache General Chief Complaint: Headache Stated Complaint: head ache, thinks from prednisone Time Seen by Provider: 12/08/18 19:48 Source: patient Mode of arrival: ambulatory Limitations: no limitations History of Present Illness HPI Narrative: Patient is a 68-year-old female here for evaluation of left-sided headache. She states that it started after she took an initial dose of 80 mg of prednisone. She states she is on prednisone prescribed by her neurologist for a ?neuromuscular disorder ?she stated that she was told by her neurologist that she could potentially get headache after taking this medicine. She states she did take some of the ?migraine medicine put that she was given during her last visit here in the ER. She does not remember the name of this. She states she normally does not get headaches however approximately 1 month ago she took a dose of prednisone and developed a headache afterwards. She is concerned that it could be the prednisone that is causing his headache. Related Data Home Medications Medication Instructions Recorded Confirmed [turmeric] #0 05/17/16 11/16/18 coQ10 (ubiquinol) #0 05/17/16 11/16/18 vitamin B complex [B 1 tab PO QDAY #0 05/17/16 11/16/18 Complex-Vitamin B12] aspirin 81 mg PO QDAY #0 01/25/17 11/16/18 Previous Rx's Medication Instructions Recorded neomycin-polymyxin B-dexameth 1 drp OP TID #5 ml 09/03/17 aripiprazole 20 mg tablet 10 mg PO DAILY #45 tab 03/08/18 prednisolone 5 mg (48 tabs) See Rx Instructions PO PER PKG DIR 11/08/18 tablets in a dose pack #48 each promethazine 25 mg tablet 25 mg PO TID PRN #30 tab 11/19/18 hydrochlorothiazide 50 mg tablet 50 mg PO DAILY #90 tab 11/30/18 losartan 100 mg tablet 100 mg PO DAILY #90 tab 11/30/18 Allergies Allergy/AdvReac Type Severity Reaction Status Date / Time cimetidine [From TAGAMET] Allergy Mild hallucinati Verified 11/24/18 10:20 ons codeine [CODEINE] Allergy Mild hallucinati Verified 11/24/18 10:20 ons lisinopril [LISINOPRIL] Allergy Mild cough/GI Verified 11/24/18 10:20 issues ranitidine [From ZANTAC] Allergy Mild hallucinati Verified 11/24/18 10:20 ons Review of Systems Constitutional Denies fever(s), Reports headache(s), Denies lethargy, Denies malaise and Denies weakness Eyes Denies blurry vision, Denies itchy eyes, Denies loss of vision and Reports photophobia ENT Ears, Nose, Mouth, and Throat: Denies vertigo, Denies dizziness, Reports headache(s), Denies neck pain, Denies disequilibrium, Denies tinnitus, Denies sore throat and Denies throat swelling Cardiovascular Denies chest pain and Denies dyspnea Respiratory Denies dyspnea Gastrointestinal Gastrointestinal: Denies abdominal pain, Denies change in stool character and Reports nausea Genitourinary Denies dysuria Musculoskeletal Denies abnormal gait, Denies myalgias, Denies arthralgias, Denies neck pain, Denies numbness and Denies tingling Integumentary/Breasts Denies new lesions and Denies rash Neurologic Denies abnormal speech, Denies abnormal gait, Denies behavioral changes, Denies confusion, Denies vertigo, Denies dizziness, Reports headache(s), Denies loss of vision, Denies numbness, Denies sensory deficit, Denies tingling, Denies paresthesias, Denies disequilibrium and Denies weakness Psychiatric Denies behavioral changes and Denies confusion Hematologic/Lymphatic Denies easy bleeding and Denies easy bruising Allergic/Immunologic Denies urticaria, Denies itchy eyes and Denies throat swelling PFSH Medical History Cervical dystonia (Chronic 1986) Depression (Chronic 1974) Hyperlipidemia (Chronic) Hypertension (Chronic) Peripheral neuropathy (Chronic 2012) SOB (shortness of breath) (Chronic 2010) Sjogren's syndrome (Chronic 2012) Sleep apnea (Chronic 2009) CTS (carpal tunnel syndrome) (Resolved 1986) Chicken pox (Resolved 1956) Cholecystectomy planned (Resolved) Colon polyps (Resolved) Denervation of muscle (Resolved) Measles (Resolved 1957) Mumps (Resolved 1958) Skin cancer (Resolved 2015) Status post DANILO-BSO (Resolved) Social History Smoking Status: Never smoker Exam Initial Vital Signs Initial Vital Signs: Vital Signs Temperature 97.1 F L 12/08/18 18:47 Pulse Rate 71 12/08/18 18:47 Respiratory Rate 20 12/08/18 18:47 Blood Pressure 151/84 H 12/08/18 18:47 Pulse Oximetry 97 12/08/18 18:47 Const General: cooperative, well developed, well groomed and No acute distress Orientation: alert, awake and oriented x3 HENMT Head: normal to inspection and normocephalic Eyes Pupils: PERRL Neck Neck: no meningeal signs Resp Effort & Inspection: normal respiratory effort Auscultation: clear to auscultation bilaterally Cardio Rate: regular rate Rhythm: regular rhythm GI Inspection: non-distended Palpation: soft Skin Lesions: no lesions Rashes: no rashes Neuro General: alert, awake and oriented x3 Cranial Nerves: CN's II-XI intact bilaterally Cognition: normal cognition Speech: speech normal Gait: normal gait Motor: muscle tone normal throughout Sensory Exam: no sensory deficits noted Extrem General: normal to inspection and capillary refill normal Psych Appearance: grossly normal and well kempt Scores GCS Warren coma scale eye opening: Spontaneous Nancy coma scale verbal response: Orientated Nancy coma scale motor response: Obey commands Warren coma scale total score: 15 Course Orders Ordered: Discontinued Medications Diphenhydramine HCl (Benadryl) 25 mg IV NOW ONE Stop: 12/08/18 20:17 Last Admin: 12/08/18 20:33 Dose: 25 mg Sodium Chloride (Normal Saline 0.9%) 1,000 mls @ 1,000 mls/hr IV BOLUS ONE Stop: 12/08/18 21:15 Last Infusion: 12/08/18 22:15 Dose: 1,000 mls/hr Admin: 12/08/18 20:35 Dose: 1,000 mls/hr Ketorolac Tromethamine (Toradol) 30 mg IV NOW ONE Stop: 12/08/18 20:17 Last Admin: 12/08/18 20:33 Dose: 30 mg Metoclopramide HCl (Reglan) 10 mg IV NOW ONE Stop: 12/08/18 20:17 Last Admin: 12/08/18 20:35 Dose: 10 mg Vital Signs - 8 hr 12/08/18 22:03 Pulse Rate 54 L Blood Pressure [Left Arm] 142/72 H Pulse Oximetry 99 MDM - Headache MDM Narrative Medical decision making narrative: Patient did report improvement of symptoms after medicines here in the ER. The 2 headaches that it brought her to the emergency department in both occurred after taking prednisone. I do suspect that this is the cause of her symptoms. She has no signs of meningitis. Low suspicion for intracerebral hemorrhage. Hold on CT scan for now. Was not of sudden onset. Has a normal neurologic exam. We did discuss her prednisone at home she is going to hold on using this until she talks with her neurologist again. We discussed return precautions and follow-up instructions. She expressed understanding and agreement with plan. Discharge Plan Departure Patient Disposition: Home Clinical Impression: Headache Qualifiers: Headache type: unspecified Headache chronicity pattern: unspecified pattern Intractability: not intractable Qualified Code(s): R51 - Headache Discharge Date/Time: 12/08/18 22:20 Interventions: ED Discharge Assessment Last Done: 12/08/18 22:20 Instructions: DI for Headache Activity Restrictions/Additional Instructions: Recommend you talk with your neurologist before taking any further prednisone. Continue other medications like we discussed. Return to the emergency department for any new or worsening symptoms Prescriptions: No Action vitamin B complex [B Complex-Vitamin B12] 1 EACH tablet 1 tab PO QDAY Qty: 0 RF: 0 coQ10 (ubiquinol) 100 MG capsule Qty: 0 RF: 0 [turmeric] Qty: 0 RF: 0 aspirin 81 MG tablet,delayed release (DR/EC) 81 mg PO QDAY Qty: 0 RF: 0 neomycin-polymyxin B-dexameth 5 ML drops,suspension 1 drp OP TID Qty: 5 RF: 0 aripiprazole 20 mg tablet 10 mg PO DAILY Qty: 45 RF: 3 promethazine 25 mg tablet 25 mg PO TID PRN (Reason: nausea) Qty: 30 RF: 0 losartan 100 mg tablet 100 mg PO DAILY Qty: 90 RF: 1 hydrochlorothiazide 50 mg tablet 50 mg PO DAILY Qty: 90 RF: 1 Millipred DP 5 mg (48 tabs) tablets,dose pack See Rx Instructions PO PER PKG DIR Qty: 48 RF: 3 Referrals: Doris Schreiber ARNP [Primary Care Provider] -
[2018-12-08] MEDS: diphenhydrAMINE 50 MG/ML VIAL 25 MG IV (20:33)
[2018-12-08] MEDS: KETOROLAC 60 MG/2 ML VIAL 30 MG IV (20:33)
[2018-12-08] MEDS: METOCLOPRAMIDE 10 MG/2 ML INJ IV (20:35)
[2018-12-08] MEDS: SODIUM CHLORIDE 0.9% 1,000 ML 1000 ML IV (20:35)
[2018-12-08 22:03] VITALS: BP 142/72; PULSE 54; O2SAT 99
== END 2018-12-08 22:20 | disposition home or self-care (01) ==
PROVIDERS: Emergency Provider Emergency Medicine; Family Provider Nurse Practitioner; PCP Nurse Practitioner
DX: R51 Headache (principal)
CPT/HCPCS: 96361; 96374; 96375; 99283; 99284; J1200; J1885; J2765

== ENCOUNTER → 2019-07-15 15:00 | Outpatient (CLI) | payer MEDICARE, BC, SELFPAY ==
--- NOTE | 2019-07-15 | DI.MG.S_ITS ---
BILATERAL DIGITAL SCREENING MAMMOGRAM 3D/2D WITH CAD: 07/15/2019 CLINICAL: Routine screening. Family history of breast cancer. Comparison is made to exams dated: 06/28/2018 mammogram, 06/24/2017 mammogram, and 05/28/2016 mammogram - [facility]. There are scattered fibroglandular elements in both breasts. Current study was also evaluated with a Computer Aided Detection (CAD) system. There are benign calcifications in both breasts. No significant masses, calcifications, or other findings are seen in either breast. There has been no significant interval change. IMPRESSION: There is no mammographic evidence of malignancy. A 1 year screening mammogram is recommended. This exam was interpreted at Station ID: [id number]. NOTE: For mammograms, a report in lay terms will be sent to the patient. Approximately 15% of breast malignancies will not be visualized mammographically. In the management of a palpable breast mass, a negative mammogram must not discourage biopsy of a clinically suspicious lesion. Electronically Signed By: Jimbo ramirez/eleonora:07/15/2019 18:33:31 letter sent: Normal Exam ACR BI-RADS Category 2: Benign Finding(s) [id number]
--- NOTE | 2019-08-02 12:42 | DIET.PN ---
Dietary Progress Note Assessment: 69y F referred to RD for help c ketogenic diet plan per recommendation of her neurologist. Pt has been sticking to 1200kcal and is doing intermittent fasting, has lost 4# in 2w. Supplements: 2 fiber tabs, turmeric, D3 c K2, Calcium Physical Activity: 10 min recumbent bike daily and PT through [facility] Interventions: 1. Discussed ketogenic diet, how it works, ratios for staying in ketosis. 2. Shared food plan with two weeks of menus. 3. Discussed label reading, what to look for. 4. Discussed current supplementation and possible need for continued monitoring for adequate nutrition if staying on diet more than 4mo. Monitoring/Evaluations: pt will schedule f/u as needed
== END ==
PROVIDERS: Family Provider Nurse Practitioner; PCP Nurse Practitioner; Referring Provider Nurse Practitioner; Visit Provider Nurse Practitioner
DX: Z12.31 Encounter for screening mammogram for malignant neoplasm of breast (principal); Z80.3 Family history of malignant neoplasm of breast
CPT/HCPCS: 77063; 77067

== ENCOUNTER → 2019-08-02 12:30 | Outpatient (CLI) | payer MEDICARE, BC, SELFPAY ==
--- NOTE | 2019-08-09 10:07 | DIET.PN ---
Addendum entered by Mariel Ortega 08/10/19 14:37: appt was on 08/02/2019 Original Note: Dietary Progress Note Assessment: 69y F referred to RD for help with ketogenic diet plan from neurologist. Pt has bilateral weakness associated c neurological condition. Her doctor wants her to go on strict keto diet in order to manage sx. Nutrition Diagnosis: nutrition related knowledge deficit r/t diet instructions for maintaining ketosis aeb pt has no previous knowledge of keto diet, pt experiencing neurological sx indicated for ketogenic diet trial. Interventions: 1. Discussed keto diet and neurology. 2. Helped pt download lyubov to manage macronutrient ratios for ketosis. 3. Problem solved meal planning and important objectives of choosing healthy fats, incorporating MVI as well as fiber supplement. Monitoring/Evaluations: f/u as desired by pt.
== END ==
PROVIDERS: Family Provider Nurse Practitioner; PCP Nurse Practitioner; Referring Provider Nurse Practitioner; Visit Provider Nurse Practitioner
DX: R53.1 Weakness (principal); G98.8 Other disorders of nervous system; Z71.3 Dietary counseling and surveillance
CPT/HCPCS: 97802

== ENCOUNTER → 2019-08-22 16:22 | Outpatient (CLI) | payer MEDICARE, BC, SELFPAY ==
[2019-08-23 12:13] LABS: Influenza A - CEPHEID Flu A NEGATIVE (NEGATIVE); Influenza B - CEPHEID Flu B NEGATIVE (NEGATIVE)
[2019-08-25 11:29] LABS: COVID19 Sendout Not Detected (Not Detected)
== END ==
PROVIDERS: Family Provider Nurse Practitioner; PCP Nurse Practitioner; Visit Provider Physician Assistant
DX: R05 Cough (principal); R06.02 Shortness of breath
CPT/HCPCS: 87502; 87635

== ENCOUNTER → 2019-09-16 10:04 | Outpatient (CLI) | payer MEDICARE, BC, SELFPAY ==
[2019-09-16 12:26] LABS: Add Manual Diff / Slide Review NO; Basophils Absolute Auto 100 /uL (0-100); Basophils Percent Auto 1.1 % (0-2); Eosinophils Absolute Auto 200 /uL (0-450); Eosinophils Percent Auto 3.3 % (2-4); Hematocrit 38.8 % (36-46); Hemoglobin 12.6 g/dL (12.0-16.0); Lymphocytes Absolute Auto 1300 /uL (1100-4500); Lymphocytes Percent Auto 18.5 % (25-40); Mean Corpuscular HGB Conc 32.4 % (30-36); Mean Corpuscular Volume 86.5 fL (80-100); Monocytes Absolute Auto 500 /uL (0-900); Monocytes Percent Auto 7.8 % (3-14); Neutrophils Absolute Auto 4800 /uL (1500-7000); Neutrophils Percent Auto 69.3 % (50-75); Platelet Count 269 X10^3/uL (150-400); Red Blood Cell Count 4.48 X10^6/uL (4.0-5.2); Red Cell Distribution Width 14.6 % (11.6-14.8); White Blood Cell Count 6.9 X10^3/uL (4.5-11.0)
[2019-09-16 12:45] LABS: Alanine Aminotransferase 29 IU/L (<35); Albumin 4.6 g/dL (3.5-5.0); Albumin Globulin Ratio 1.5 (1.0-2.8); Alkaline Phosphatase 104 U/L (38-126); Aspartate Aminotransferase 34 IU/L (14-36); BUN Creatinine Ratio 20.5 (6-22); Bilirubin Total 0.4 mg/dL (0.2-1.3); Blood Urea Nitrogen 17 mg/dL (7-17); Calcium 10.1 mg/dL (8.4-10.2); Carbon Dioxide 26 mmol/L (22-32); Chloride 101 mmol/L (98-107); Estimated Glomerular Filt Rate > 60.0 mL/min (>60); Globulin 3.1 g/dL (1.7-4.1); Glucose 94 mg/dL (80-110); HEMOLYSIS < 15 (0-50); Phosphorous 3.5 mg/dL (2.8-4.1); Potassium 4.3 mmol/L (3.4-5.1); Sodium 138 mmol/L (137-145); Total Protein 7.7 g/dL (6.3-8.2)
[2019-09-16 13:00] LABS: Free T3, Triiodothyronine Free 4.95 pg/mL (2.77-5.27); Free T4, Direct Thyroxine 0.95 ng/dL (0.78-2.19)
[2019-09-16 13:14] LABS: Thyroid Stimulating Hormone 1.43 uIU/mL (0.47-4.68)
[2019-09-16 13:32] LABS: Vitamin B12 575 pg/mL (239-931)
== END ==
PROVIDERS: Family Provider Nurse Practitioner; PCP Nurse Practitioner; Referring Provider Nurse Practitioner; Visit Provider Nurse Practitioner
DX: L29.9 Pruritus, unspecified (principal); R06.02 Shortness of breath; R53.82 Chronic fatigue, unspecified; Z78.9 Other specified health status; E87.1 Hypo-osmolality and hyponatremia; E87.6 Hypokalemia; R82.4 Acetonuria
CPT/HCPCS: 36415; 80053; 82607; 84100; 84439; 84443; 84481; 85025

== ENCOUNTER → 2019-12-27 09:50 | Outpatient (CLI) | payer MEDICARE, BC, SELFPAY ==
[2019-12-27 10:45] LABS: BUN Creatinine Ratio 14.9 (6-22); Blood Urea Nitrogen 11 mg/dL (7-17); Calcium 10.3 mg/dL (8.4-10.2); Carbon Dioxide 30 mmol/L (22-32); Chloride 97 mmol/L (98-107); Estimated Glomerular Filt Rate > 60.0 mL/min (>60); Glucose 103 mg/dL (80-110); HEMOLYSIS < 15 (0-50); Potassium 3.9 mmol/L (3.4-5.1); Sodium 134 mmol/L (137-145)
== END ==
PROVIDERS: Family Provider Nurse Practitioner; PCP Nurse Practitioner; Referring Provider Hospitalist; Visit Provider Hospitalist
DX: I10 Essential (primary) hypertension (principal)
CPT/HCPCS: 36415; 80048

== ENCOUNTER → 2020-01-15 10:05 | Outpatient (CLI) | payer MEDICARE, BC, SELFPAY ==
[2020-01-17 06:41] LABS: COVID19 Sendout Not Detected (Not Detected)
== END ==
PROVIDERS: Family Provider Nurse Practitioner; PCP Nurse Practitioner; Visit Provider Physician Assistant
DX: R10.9 Unspecified abdominal pain (principal); R63.0 Anorexia; R51 Headache
CPT/HCPCS: 87635

== ENCOUNTER 2020-01-15 10:17 | Emergency (ER) | payer MEDICARE, BC, SELFPAY ==
[2020-01-15] VITALS (10 sets, daily range): BP systolic 129–154; BP diastolic 67–82; PULSE 62–87; RESP 16; TEMP 37.2; O2SAT 94–99; BMI 32.1
[2020-01-15 11:13] LABS: Add Manual Diff / Slide Review NO; Basophils Absolute Auto 100 /uL (0-100); Basophils Percent Auto 1.3 % (0-2); Eosinophils Absolute Auto 200 /uL (0-450); Eosinophils Percent Auto 1.8 % (2-4); Hematocrit 37.3 % (36-46); Hemoglobin 12.2 g/dL (12.0-16.0); Lymphocytes Absolute Auto 2000 /uL (1100-4500); Lymphocytes Percent Auto 17.9 % (25-40); Mean Corpuscular HGB Conc 32.8 % (30-36); Mean Corpuscular Hemoglobin 27.7 PG (26-34); Mean Corpuscular Volume 84.5 fL (80-100); Monocytes Absolute Auto 600 /uL (0-900); Monocytes Percent Auto 5.7 % (3-14); Neutrophils Absolute Auto 8000 /uL (1500-7000); Neutrophils Percent Auto 73.3 % (50-75); Platelet Count 300 X10^3/uL (150-400); Red Blood Cell Count 4.42 X10^6/uL (4.0-5.2); Red Cell Distribution Width 14.9 % (11.6-14.8); White Blood Cell Count 10.9 X10^3/uL (4.5-11.0)
[2020-01-15 11:22] LABS: Alanine Aminotransferase 21 IU/L (<35); Albumin 4.5 g/dL (3.5-5.0); Albumin Globulin Ratio 1.5 (1.0-2.8); Alkaline Phosphatase 121 U/L (38-126); Aspartate Aminotransferase 30 IU/L (14-36); BUN Creatinine Ratio 17.9 (6-22); Bilirubin Total 0.6 mg/dL (0.2-1.3); Blood Urea Nitrogen 14 mg/dL (7-17); Calcium 10.1 mg/dL (8.4-10.2); Carbon Dioxide 27 mmol/L (22-32); Chloride 97 mmol/L (98-107); Estimated Glomerular Filt Rate > 60.0 mL/min (>60); Globulin 3.1 g/dL (1.7-4.1); Glucose 99 mg/dL (80-110); HEMOLYSIS 16 (0-50); Lipase 130 U/L (23-300); Potassium 3.5 mmol/L (3.4-5.1); Sodium 134 mmol/L (137-145); Total Protein 7.6 g/dL (6.3-8.2)
--- NOTE | 2020-01-15 11:26 | DI.CT.S_ITS ---
PROCEDURE: CT ABDOMEN PELVIS W CON INDICATIONS: rlq pain, nausea, chills TECHNIQUE: After the administration of intravenous contrast, 5 mm thick sections acquired from the diaphragm to the symphysis. 5 mm coronal and sagittal reformats were acquired. For radiation dose reduction, the following was used: automated exposure control, adjustment of mA and/or kV according to patient size. COMPARISON: [facility], CT, ABDOMEN/PELVIS WITH CONTRAST, 08/05/2015, 13:30. [facility], CT, CT ABDOMEN PELVIS W CON, 11/08/2017, 15:03. [facility], CT, CT CHEST W CON, 04/02/2018, 12:49. [facility], CR, XR LUMBAR SPINE 2-3V, 09/30/2018, 12:09. FINDINGS: Image quality: Excellent. ABDOMEN: Lung bases: Lung bases are clear. Heart size is normal. A small hiatal hernia is incidentally noted. Solid organs: Liver is normal in size and enhancement. Gallbladder has been removed. Biliary system is non dilated. Pancreas enhances normally. Spleen is normal in size and enhancement. Calcified granulomas are seen within the spleen. No adrenal nodules. Kidneys demonstrate normal size and enhancement, without hydronephrosis. Peritoneum and bowel: In this patient with this given history, scrutiny is given to the appendix. The appendix is well seen and is normal. No focal right lower quadrant inflammatory changes are seen. Focal wall thickening is seen involving the sigmoid colon, with mild surrounding inflammatory change. Diverticulosis can be seen within this region. No free air is seen. No loculated abscess is seen. No significant free fluid is seen. No other areas of bowel wall thickening are seen. No dilated loops of small bowel are seen. Nodes and vessels: No retroperitoneal or mesenteric adenopathy by size criteria. Aorta and inferior vena cava are normal in size. Miscellaneous: No ventral hernias. PELVIS: Genitourinary: Bladder wall thickness is normal. Miscellaneous: There is a right inguinal hernia seen, which contains fat and nondilated small bowel. This is not significantly changed compared to prior studies. No enlarged inguinal lymph nodes are seen. Bones: There is an expansile water density lesion seen within the sacrum, which is best seen on sagittal images, as on series 5, image 49. No vertebral body compression fractures. Mild to moderate dextroconvex scoliosis is seen. Degenerative changes are seen throughout, which are most prominent involving the lower lumbar spine. IMPRESSION: Negative for appendicitis. Moderate sigmoid diverticulitis, without findings of perforation or abscess. When clinically appropriate (following adequate treatment of the patient's current clinical episode) a colonoscopy is recommended for further evaluation for a potential underlying mass (if not already recently done). Stable water density lesion within the sacrum, unchanged compared to 2016 and regarded to be benign. Incidental note is made of: Small hiatal hernia Cholecystectomy Stable right inguinal hernia, with nondilated small bowel. Dictated by: Juan Ramon Diana M.D. on 01/15/2020 at 11:38 Approved by: Juan Ramon Diana M.D. on 01/15/2020 at 11:46
[2020-01-15 11:27] LABS: Bacteria Urine None Seen; WBC Urine None Seen (0-5/HPF)
[2020-01-15] MEDS: SODIUM CHLORIDE 0.9% 1,000 ML 1000 ML IV (11:31)
[2020-01-15] MEDS: ONDANSETRON 4 MG/2 ML INJ IV (11:31)
[2020-01-15 11:35] LABS: Culture Indicated Urine Cult Not Indicated; RBC Urine 1-5/HPF (0-5/HPF)
--- NOTE | 2020-01-15 12:24 | ED_ITS ---
HPI - Abdominal Pain <Yina ShenROSAP-BC - Last Filed: 01/15/20 15:10> General Chief Complaint: Abdominal Pain Stated Complaint: Sent by [facility], abdominal pain, nausea Time Seen by Provider: 01/15/20 11:06 Source: patient Mode of arrival: Ambulatory Limitations: no limitations History of Present Illness HPI narrative: The patient is a very pleasant 69-year-old female nonsmoker with complicated medical history including gastritis, fatigue, Sjogren's syndrome, and a ?neurological disorder who presents with a chief complaint of abdominal pain. She was referred by the respiratory/walk-in clinic where she presented requesting a coronavirus test before her infusions for her neurological disorder. She complains of headache, nausea with no vomiting. She states that she has had right lower quadrant pain on and off since the end of November or early December. It started in her periumbilical area that radiated down to her right lower quadrant. She states she has history of a cholecystectomy and has had a total hysterectomy. She denies any dysuria urgency or frequency. Related Data Home Medications Medication Instructions Recorded Confirmed [turmeric] #0 05/17/16 09/16/19 aspirin 81 mg PO QDAY #0 01/25/17 09/16/19 N-Acetyl- L- Cysteine PO .QDAY 09/16/19 09/16/19 Yale 3 PO .QDAY 09/16/19 09/16/19 Psyllium fiber PO .QDAY 09/16/19 09/16/19 alpha lipoic acid PO .QDAY 09/16/19 09/16/19 calcium citrate,magnesium, zinc PO .QDAY 09/16/19 09/16/19 Previous Rx's Medication Instructions Recorded aripiprazole 20 mg tablet See Rx Instructions .ROUTE 02/25/19 .COMPLEX #45 tablet miscellaneous medical supply 1 each .ROUTE .COMPLEX #1 each 08/23/19 hydrochlorothiazide 50 mg tablet 50 mg PO DAILY #90 tab 11/23/19 losartan 100 mg tablet 100 mg PO DAILY #90 tab 11/23/19 amoxicillin-pot clavulanate 1 tab PO Q8HR 7 Days #21 tab 01/15/20 [Augmentin] ondansetron 4 mg PO Q6H PRN #20 tab 01/15/20 Allergies Allergy/AdvReac Type Severity Reaction Status Date / Time cimetidine [From TAGAMET] Allergy Mild hallucinati Verified 01/15/20 10:29 ons codeine [CODEINE] Allergy Mild hallucinati Verified 01/15/20 10:29 ons lisinopril [LISINOPRIL] Allergy Mild cough/GI Verified 01/15/20 10:29 issues ranitidine [From ZANTAC] Allergy Mild hallucinati Verified 01/15/20 10:29 ons Review of Systems <WILMER Gilbert - Last Filed: 01/15/20 15:10> Review of Systems Narrative: GENERAL: See HPI HEENT: Denies sinus pain, ear pain, sore throat, difficulty swallowing, dizziness. RESPIRATORY: Denies dyspnea, cough, wheezing, hemoptysis, sputum. CARDIOVASCULAR: Denies chest pain, palpitations, orthopnea, edema, GASTROINTESTINAL: See HPI : Denies dysuria, frequency, incontinence, hematuria, urinary retention. MUSCULOSKELETAL: denies weakness, joint pain, or bony pain SKIN: Denies rash, skin lesions, or other NEUROLOGIC: Denies weakness, headache, numbness, change in speech, confusion, seizures, incoordination. PSYCHIATRIC: No concerning psychosocial issues. 12 point review of systems is negative except for those stated above Patient History <WILMER Gilbert - Last Filed: 01/15/20 15:10> Medical History Activity intolerance (Acute) Cervical dystonia (Chronic 1986) Chicken pox (Resolved 1956) Cholecystectomy planned (Resolved) Colon polyps (Resolved) CTS (carpal tunnel syndrome) (Resolved 1986) Denervation of muscle (Resolved) Depression (Chronic 1974) Dyspnea on exertion (Acute) Fatigue (Acute) Hyperlipidemia (Chronic) Hypertension (Chronic) Itch of skin (Acute) Measles (Resolved 1957) Mumps (Resolved 1958) NSAID induced gastritis (Acute) Peripheral neuropathy (Chronic 2012) Sjogren's syndrome (Chronic 2012) Skin cancer (Resolved 2015) Sleep apnea (Chronic 2009) Small fiber polyneuropathy (Acute) SOB (shortness of breath) (Chronic 2010) Status post DANILO-BSO (Resolved) Surgical History Anesthesia complication (Resolved) History of carpal tunnel repair (Resolved 1989) History of cervical spinal surgery (Resolved 07/2008) History of laparoscopic cholecystectomy (Resolved 2006) S/P DANILO-BSO (total abdominal hysterectomy and bilateral salpingo-oophorectomy) (Resolved 01/2007) Status post hernia repair (Resolved 2013) Status post hernia repair (Resolved 2007) Family History Brother Age: 63 Prostate cancer Heart disease Hypertension High cholesterol Heart attack Brother Age: 61 Hypertension Mental health problem Kidney transplant recipient Chronic kidney disease with end stage renal failure on dialysis Father Colon cancer Heart disease Mental health problem Heart failure Grandfather Heart disease Hypertension Brain aneurysm Mother Cancer Hypertension NHL (non-Hodgkin's lymphoma) Grandmother Stroke Sister Age: 69 Celiac disease High cholesterol Mental health problem Thyroid disorder Sister Age: 65 Psoriatic arthritis Thyroid disorder Grandmother Alzheimer's disease Grandfather Colon cancer Sister Breast cancer Sister Suicide Brother No problems noted. Sister Thyroid disorder Social History Smoking Status: Never smoker Smoking Status: Never smoker alcohol intake frequency: holidays/special occasions only Substance Use Type: does not use Exam <WILMER Gilbert - Last Filed: 01/15/20 15:10> Narrative Exam Narrative: GENERAL: This is a well-nourished, well-developed patient, no acute distress lying on stretcher HEAD: Atraumatic. Normocephalic. No temporal or scalp tenderness. EYES: Pupils equal round and reactive. Extraocular motions intact. No scleral icterus. No injection or drainage. ENT: Nose without bleeding, purulent drainage or septal hematoma. Throat without erythema, tonsillar hypertrophy or exudate. Uvula midline. Airway patent. NECK: Trachea midline. No JVD or lymphadenopathy. Supple, nontender, no meningeal signs. CARDIOVASCULAR: Regular rate and rhythm RESPIRATORY: Clear to auscultation. Breath sounds equal bilaterally. No wheezes, rales, or rhonchi. No cough. No increased respiratory effort. No accessory muscle use. GASTROINTESTINAL: Abdomen soft, active bowel sounds all 4 quadrants, nondistended. No hepato-splenomegaly, or palpable masses. Pain to palpation with slight guarding noted right lower quadrant over McBurney's point. No peritoneal signs noted. rebound tenderness noted on right and lower quadrants. EXTREMITIES: No clubbing, cyanosis, or edema. No joint tenderness, effusion, or edema noted. BACK: Nontender without deformity or crepitance. No flank tenderness. NEURO: AOx3. SKIN: No rash or erythema on visible skin Initial Vital Signs Initial Vital Signs: Vital Signs Temperature 99 F 01/15/20 10:30 Pulse Rate 87 01/15/20 10:30 Respiratory Rate 16 01/15/20 10:30 Blood Pressure 154/82 H 01/15/20 10:30 Pulse Oximetry 97 01/15/20 10:30 <Yadira Ram DO - Last Filed: 01/16/20 07:32> Initial Vital Signs Initial Vital Signs: Vital Signs Temperature 99 F 01/15/20 10:30 Pulse Rate 87 01/15/20 10:30 Respiratory Rate 16 01/15/20 10:30 Blood Pressure 154/82 H 01/15/20 10:30 Pulse Oximetry 97 01/15/20 10:30 Scores <WILMER Gilbert - Last Filed: 01/15/20 15:10> GCS [place] coma scale eye opening: Spontaneous [place] coma scale verbal response: Orientated [place] coma scale motor response: Obey commands [place] coma scale total score: 15 Course <WILMER Gilbert - Last Filed: 01/15/20 15:10> Orders Ordered: Discontinued Medications Acetaminophen (Tylenol) 975 mg PO NOW ONE Stop: 01/15/20 12:31 Last Admin: 01/15/20 12:36 Dose: 975 mg Documented by: PARRISH Amoxicillin/Clavulanate Potassium (Augmentin 875-125 Mg) 1 tab PO NOW ONE Stop: 01/15/20 13:37 Last Admin: 01/15/20 13:52 Dose: 1 tab Documented by: DILLON Sodium Chloride (Normal Saline 0.9%) 1,000 mls @ 1,000 mls/hr IV BOLUS ONE Stop: 01/15/20 12:25 Last Infusion: 01/15/20 13:06 Dose: 0 mls/hr Documented by: Admin: 01/15/20 11:31 Dose: 1,000 mls/hr Documented by: DILLON Ondansetron HCl (Zofran) 4 mg IV NOW ONE Stop: 01/15/20 11:27 Last Admin: 01/15/20 11:31 Dose: 4 mg Documented by: DILLON Vital Signs Vital signs: Vital Signs - 8 hr 01/15/20 10:30 01/15/20 11:27 01/15/20 11:30 Temperature 99 F Pulse Rate 87 85 83 Respiratory Rate 16 Blood Pressure 154/82 H 148/80 H Pulse Oximetry 97 98 96 01/15/20 12:00 01/15/20 12:29 01/15/20 12:30 Temperature Pulse Rate 80 79 77 Respiratory Rate Blood Pressure 138/67 152/80 H Pulse Oximetry 94 99 99 01/15/20 13:00 01/15/20 13:30 01/15/20 14:00 Temperature Pulse Rate 74 68 62 Respiratory Rate Blood Pressure 148/72 H 152/75 H 146/79 H Pulse Oximetry 97 97 98 01/15/20 14:30 Temperature Pulse Rate 65 Respiratory Rate Blood Pressure 129/73 Pulse Oximetry 98 <Yadira Ram, - Last Filed: 01/16/20 07:32> Orders Ordered: Discontinued Medications Acetaminophen (Tylenol) 975 mg PO NOW ONE Stop: 01/15/20 12:31 Last Admin: 01/15/20 12:36 Dose: 975 mg Documented by: PARRISH Amoxicillin/Clavulanate Potassium (Augmentin 875-125 Mg) 1 tab PO NOW ONE Stop: 01/15/20 13:37 Last Admin: 01/15/20 13:52 Dose: 1 tab Documented by: DILLON Sodium Chloride (Normal Saline 0.9%) 1,000 mls @ 1,000 mls/hr IV BOLUS ONE Stop: 01/15/20 12:25 Last Infusion: 01/15/20 13:06 Dose: 0 mls/hr Documented by: Admin: 01/15/20 11:31 Dose: 1,000 mls/hr Documented by: DILLON Ondansetron HCl (Zofran) 4 mg IV NOW ONE Stop: 01/15/20 11:27 Last Admin: 01/15/20 11:31 Dose: 4 mg Documented by: DILLON Vital Signs Vital signs: Vital Signs - 8 hr 01/15/20 10:30 01/15/20 11:27 01/15/20 11:30 Temperature 99 F Pulse Rate 87 85 83 Respiratory Rate 16 Blood Pressure 154/82 H 148/80 H Pulse Oximetry 97 98 96 01/15/20 12:00 01/15/20 12:29 01/15/20 12:30 Temperature Pulse Rate 80 79 77 Respiratory Rate Blood Pressure 138/67 152/80 H Pulse Oximetry 94 99 99 01/15/20 13:00 01/15/20 13:30 01/15/20 14:00 Temperature Pulse Rate 74 68 62 Respiratory Rate Blood Pressure 148/72 H 152/75 H 146/79 H Pulse Oximetry 97 97 98 01/15/20 14:30 Temperature Pulse Rate 65 Respiratory Rate Blood Pressure 129/73 Pulse Oximetry 98 MDM - Abdominal Pain <HONG Gilbert- - Last Filed: 01/15/20 15:10> Differential Diagnosis Differential diagnosis: Likely abdominal pain, acute appendicitis, constipation and diverticulitis Lab Data Result diagrams: 01/15/20 10:55 01/15/20 10:55 Labs: Lab Results 01/15/20 01/15/20 01/15/20 Range/Units 10:55 10:55 10:55 WBC 10.9 (4.5-11.0) X10^3/uL RBC 4.42 (4.0-5.2) X10^6/uL Hgb 12.2 (12.0-16.0) g/dL Hct 37.3 (36-46) % MCV 84.5 (80-100) fL MCH 27.7 (26-34) PG MCHC 32.8 (30-36) % RDW 14.9 H (11.6-14.8) % Plt Count 300 (150-400) X10^3/uL Neut % (Auto) 73.3 (50-75) % Lymph % (Auto) 17.9 L (25-40) % Todd % (Auto) 5.7 (3-14) % Eos % (Auto) 1.8 L (2-4) % Baso % (Auto) 1.3 (0-2) % Neut # (Auto) 8000 H (1028-7471) /uL Lymph # (Auto) 2000 (6467-0420) /uL Todd # (Auto) 600 (0-900) /uL Eos # (Auto) 200 (0-450) /uL Baso # (Auto) 100 (0-100) /uL Sodium 134 L (137-145) mmol/L Potassium 3.5 (3.4-5.1) mmol/L Chloride 97 L (98-107) mmol/L Carbon Dioxide 27 (22-32) mmol/L BUN 14 (7-17) mg/dL Creatinine 0.78 (0.52-1.04) mg/dL Estimated GFR > 60.0 (>60) mL/min BUN/Creatinine Ratio 17.9 (6-22) Glucose 99 (80-110) mg/dL Calcium 10.1 (8.4-10.2) mg/dL Total Bilirubin 0.6 (0.2-1.3) mg/dL AST 30 (14-36) IU/L ALT 21 (<35) IU/L Alkaline Phosphatase 121 (38-126) U/L Total Protein 7.6 (6.3-8.2) g/dL Albumin 4.5 (3.5-5.0) g/dL Globulin 3.1 (1.7-4.1) g/dL Albumin/Globulin Ratio 1.5 (1.0-2.8) Lipase 130 (23-300) U/L Urine RBC 1-5/hpf (0-5/HPF) Urine WBC None seen (0-5/HPF) Urine Bacteria None seen (None) Ur Culture Indicated? Cult not indicated Point of care testing: Urine Dip Bedside Urine Glucose Negative Bedside Urine Bilirubin - Negative Bedside Urine Ketone - Negative Urine Specific Mallie 1.005 Bedside Urine Occult Blood ++ Bedside Urine pH 7.5 Bedside Urine Protein - Negative Bedside Urine Urobilinogen - Negative Bedside Urine Nitrite - Negative Bedside Urine Leukocytes - Negative Esterase Imaging Data CT scan - abdomen/pelvis: Radiologist's Impression: [address] [place] [id number] Scan Report Signed Patient: Elizabeth Maravilla [facility]#: [id number] : 1950Acct:[id number] Age/Sex: 69 / FDate of Service: 01/15/20 Loc: ED Accession Number: [id number] Procedure: CT abdomen pelvis w con Ordering Provider: Yina Shen CODER- PROCEDURE: CT ABDOMEN PELVIS W CON INDICATIONS: rlq pain, nausea, chills TECHNIQUE: After the administration of intravenous contrast, 5 mm thick sections acquired from the diaphragm to the symphysis. 5 mm coronal and sagittal reformats were acquired. For radiation dose reduction, the following was used: automated exposure control, adjustment of mA and/or kV according to patient size. COMPARISON: [facility], CT, ABDOMEN/PELVIS WITH CONTRAST, 08/05/2015, 13:30. [facility], CT, CT ABDOMEN PELVIS W CON, 11/08/2017, 15:03. [facility], CT, CT CHEST W CON, 04/02/2018, 12:49. [facility], CR, XR LUMBAR SPINE 2-3V, 09/30/2018, 12:09. FINDINGS: Image quality: Excellent. ABDOMEN: Lung bases: Lung bases are clear. Heart size is normal. A small hiatal hernia is incidentally noted. Solid organs: Liver is normal in size and enhancement. Gallbladder has been removed. Biliary system is non dilated. Pancreas enhances normally. Spleen is normal in size and enhancement. Calcified granulomas are seen within the spleen. No adrenal nodules. Kidneys demonstrate normal size and enhancement, without hydronephrosis. Peritoneum and bowel: In this patient with this given history, scrutiny is given to the appendix. The appendix is well seen and is normal. No focal right lower quadrant inflammatory changes are seen. Focal wall thickening is seen involving the sigmoid colon, with mild surrounding inflammatory change. Diverticulosis can be seen within this region. No free air is seen. No loculated abscess is seen. No significant free fluid is seen. No other areas of bowel wall thickening are seen. No dilated loops of small bowel are seen. Nodes and vessels: No retroperitoneal or mesenteric adenopathy by size criteria. Aorta and inferior vena cava are normal in size. Miscellaneous: No ventral hernias. PELVIS: Genitourinary: Bladder wall thickness is normal. Miscellaneous: There is a right inguinal hernia seen, which contains fat and nondilated small bowel. This is not significantly changed compared to prior studies. No enlarged inguinal lymph nodes are seen. Bones: There is an expansile water density lesion seen within the sacrum, which is best seen on sagittal images, as on series 5, image 49. No vertebral body compression fractures. Mild to moderate dextroconvex scoliosis is seen. Degenerative mayte nges are seen throughout, which are most prominent involving the lower lumbar spine. IMPRESSION: Negative for appendicitis. Moderate sigmoid diverticulitis, without findings of perforation or abscess. When clinically appropriate (following adequate treatment of the patient's current clinical episode) a colonoscopy is recommended for further evaluation for a potential underlying mass (if not already recently done). Stable water density lesion within the sacrum, unchanged compared to 2016 and regarded to be benign. Incidental note is made of: Small hiatal hernia Cholecystectomy Stable right inguinal hernia, with nondilated small bowel. Dictated by: Juan Ramon Diana M.D. on 01/15/2020 at 11:38 Approved by: Juan Ramon Diana M.D. on 01/15/2020 at 11:46 [facility] Narrative Medical decision making narrative: The patient is a 69-year-old female who presents with a chief complaint of abdominal pain general malaise not feeling well. Her exam is concerning with some right lower quadrant pain to palpation, a CT was obtained to help rule out appendicitis, diverticulitis etcetera. Patient was found to have diverticulitis. I did discuss with her the medication regimes of metronidazole and ciprofloxacin, however the patient like to avoid fluoroquinolones due to her already known tendon and musculoskeletal issues. Did elect to use Augmentin t.i.d. as per up-to-date recommendations rather than and metronidazole and Cipro. I did discuss with the patient the metronidazole and Cipro might be more effective, but she was still like to proceed with Augmentin. I discussed at length the importance of following up with her PCP in the next 48-72 hours, gave her prescription for Zofran as well. Encouraged taking probiotic with antibiotic. Patient repeatedly declined pain medication throughout her stay in the emergency department and upon discharge. Did discuss with patient recommended colonoscopy to evaluate for potential underlying mass as per Radiology recommendations. Patient was able to tolerate p.o. antibiotics in the emergency department prior to discharge. Discussed at length dietary changes for diverticulitis. Patient has no questions or concerns upon discharge and states understanding return precautions of any acute concerns including inability keep down fluids/antibiotics, severe worsening and follow up with primary care provider. She has bad hemodynamically stable and nontoxic appearing throughout her stay in the emergency department. <Yadira Ram, - Last Filed: 01/16/20 07:32> Lab Data Labs: Lab Results 01/15/20 01/15/20 01/15/20 Range/Units 10:55 10:55 10:55 WBC 10.9 (4.5-11.0) X10^3/uL RBC 4.42 (4.0-5.2) X10^6/uL Hgb 12.2 (12.0-16.0) g/dL Hct 37.3 (36-46) % MCV 84.5 (80-100) fL MCH 27.7 (26-34) PG MCHC 32.8 (30-36) % RDW 14.9 H (11.6-14.8) % Plt Count 300 (150-400) X10^3/uL Neut % (Auto) 73.3 (50-75) % Lymph % (Auto) 17.9 L (25-40) % Todd % (Auto) 5.7 (3-14) % Eos % (Auto) 1.8 L (2-4) % Baso % (Auto) 1.3 (0-2) % Neut # (Auto) 8000 H (7700-3371) /uL Lymph # (Auto) 2000 (3479-9174) /uL Todd # (Auto) 600 (0-900) /uL Eos # (Auto) 200 (0-450) /uL Baso # (Auto) 100 (0-100) /uL Sodium 134 L (137-145) mmol/L Potassium 3.5 (3.4-5.1) mmol/L Chloride 97 L (98-107) mmol/L Carbon Dioxide 27 (22-32) mmol/L BUN 14 (7-17) mg/dL Creatinine 0.78 (0.52-1.04) mg/dL Estimated GFR > 60.0 (>60) mL/min BUN/Creatinine Ratio 17.9 (6-22) Glucose 99 (80-110) mg/dL Calcium 10.1 (8.4-10.2) mg/dL Total Bilirubin 0.6 (0.2-1.3) mg/dL AST 30 (14-36) IU/L ALT 21 (<35) IU/L Alkaline Phosphatase 121 (38-126) U/L Total Protein 7.6 (6.3-8.2) g/dL Albumin 4.5 (3.5-5.0) g/dL Globulin 3.1 (1.7-4.1) g/dL Albumin/Globulin Ratio 1.5 (1.0-2.8) Lipase 130 (23-300) U/L Urine RBC 1-5/hpf (0-5/HPF) Urine WBC None seen (0-5/HPF) Urine Bacteria None seen (None) Ur Culture Indicated? Cult not indicated Point of care testing: Urine Dip Bedside Urine Glucose Negative Bedside Urine Bilirubin - Negative Bedside Urine Ketone - Negative Urine Specific Mallie 1.005 Bedside Urine Occult Blood ++ Bedside Urine pH 7.5 Bedside Urine Protein - Negative Bedside Urine Urobilinogen - Negative Bedside Urine Nitrite - Negative Bedside Urine Leukocytes - Negative Esterase Discharge Plan Departure Patient Disposition: Home Clinical Impression: Diverticulitis Discharge Date/Time: 01/15/20 15:03 Instructions: DI for Diverticulitis Activity Restrictions/Additional Instructions: Thank you for trusting us with your care today. As discussed, your CT showed evidence of diverticulitis. I sent in antibiotics to [facility]. I suggest taking this with probiotic. I also sent in a prescription of nausea medicine. As discussed, please follow-up with primary care provider in the next few days. I would like you to be re-evaluated next 48-72 hours. As discussed, please come back to the emergency department for any acute concerns. This includes inability keep down fluids or your antibiotics. Regarding the martinez virus test, as discussed please follow-up with the walk-in clinic for your test results. As discussed, please act as though you are sick and stay home and self quarantine until your test results come in. wash your hands etcetera Prescriptions: New amoxicillin-pot clavulanate [Augmentin] 875-125 mg tablet 1 tab PO Q8HR 7 Days Qty: 21 RF: 0 ondansetron 4 mg tablet,disintegrating 4 mg PO Q6H PRN (Reason: nausea and vomiting) Qty: 20 RF: 0 No Action [turmeric] Qty: 0 RF: 0 aspirin 81 MG tablet,delayed release (DR/EC) 81 mg PO QDAY Qty: 0 RF: 0 aripiprazole 20 mg tablet See Rx Instructions .ROUTE .COMPLEX Qty: 45 RF: 3 miscellaneous medical supply Misc 1 each .ROUTE .COMPLEX Qty: 1 RF: 0 losartan 100 mg tablet 100 mg PO DAILY Qty: 90 RF: 3 hydrochlorothiazide 50 mg tablet 50 mg PO DAILY Qty: 90 RF: 3 alpha lipoic acid 600 mg PO .QDAY RF: 0 calcium citrate,magnesium, zinc 1,000 mg PO .QDAY RF: 0 Psyllium fiber 12 mg PO .QDAY RF: 0 N-Acetyl- L- Cysteine 600 mg PO .QDAY RF: 0 Yale 3 690 mg PO .QDAY RF: 0 Referrals: Doris Schreiber ARNP [Primary Care Provider] - <Yadira Ram DO - Last Filed: 01/16/20 07:32> Cosign ED Attending Cosignature Attestation: I was immediately available in the department for consultation. Documentation has been reviewed. I agree with assessment and plan.
[2020-01-15] MEDS: ACETAMINOPHEN 325 MG TABLET 975 MG PO (12:36)
[2020-01-15] MEDS: AMOXICILLIN/CLAV 875/125 MG 1 TAB PO (13:52)
== END 2020-01-15 15:03 | disposition home or self-care (01) ==
PROVIDERS: Emergency Medicine; Emergency Provider Nurse Practitioner Family; Family Provider Nurse Practitioner; PCP Nurse Practitioner
DX: K57.92 Diverticulitis of intestine, part unspecified, without perforation or abscess without bleeding (principal); R51 Headache; R11.0 Nausea; R10.9 Unspecified abdominal pain; R63.0 Anorexia
CPT/HCPCS: 36415; 74177; 80053; 81003; 81015; 83690; 85025; 87635; 96361; 96374; 99284; J2405; Q9967

== ENCOUNTER → 2020-02-09 13:48 | Outpatient (CLI) | payer MEDICARE, BC, SELFPAY ==
[2020-02-09 14:58] LABS: Alanine Aminotransferase 25 IU/L (<35); Albumin 4.2 g/dL (3.5-5.0); Albumin Globulin Ratio 1.9 (1.0-2.8); Alkaline Phosphatase 105 U/L (38-126); Aspartate Aminotransferase 29 IU/L (14-36); BUN Creatinine Ratio 15.9 (6-22); Bilirubin Total 0.4 mg/dL (0.2-1.3); Blood Urea Nitrogen 11 mg/dL (7-17); Calcium 9.7 mg/dL (8.4-10.2); Carbon Dioxide 28 mmol/L (22-32); Chloride 98 mmol/L (98-107); Estimated Glomerular Filt Rate > 60.0 mL/min (>60); Globulin 2.2 g/dL (1.7-4.1); Glucose 99 mg/dL (80-110); HEMOLYSIS < 15 (0-50); Potassium 3.9 mmol/L (3.4-5.1); Sodium 133 mmol/L (137-145); Total Protein 6.4 g/dL (6.3-8.2)
== END ==
PROVIDERS: Family Provider Nurse Practitioner; PCP Nurse Practitioner; Referring Provider Nurse Practitioner; Visit Provider Nurse Practitioner
DX: Z01.818 Encounter for other preprocedural examination (principal)
CPT/HCPCS: 36415; 80053

== ENCOUNTER → 2020-02-10 13:53 | Outpatient (CLI) | payer MEDICARE, BC, SELFPAY ==
--- NOTE | 2020-02-10 | DI.CT.S_ITS ---
PROCEDURE: CT HEAD/BRAIN W CON INDICATIONS: WORSENING HEADACHE TECHNIQUE: 4.5 mm thick angled axial sections acquired from the foramen magnum to the vertex after the administration of intravenous contrast, with coronal and sagittal reformats. For radiation dose reduction, the following was used: automated exposure control, adjustment of mA and/or kV according to patient size. COMPARISON: [facility], MR, MR HEAD/BRAIN WO/W CON, 11/23/2018, 17:23. [facility], CT, CT HEAD/BRAIN WO CON, 11/10/2018, 19:56. FINDINGS: Image quality: Excellent. CSF Spaces: Basal cisterns are patent. No extra-axial fluid collections. Ventricles are normal in size and shape. Brain: No midline shift. No intracranial bleeds or masses. No abnormal intracranial enhancement. Duong-white interface appears normal. Skull and face: Calvarium and visualized facial bones appear intact, without suspicious lesions. Sinuses: A small amount of layering fluid is seen within the left maxillary sinus. The paranasal sinuses otherwise appear clear. No abnormal fluid is seen within the mastoid air cells. IMPRESSION: Unremarkable intracranial study, without an imaging explanation found for the patient's presenting history of headache. No masses or abnormal enhancement can be seen. Improved appearance of the left maxillary sinus compared to 2019. Dictated by: Juan Ramon Diana M.D. on 02/10/2020 at 13:34 Approved by: Juan Ramon Diana M.D. on 02/10/2020 at 13:35
== END ==
PROVIDERS: Family Provider Nurse Practitioner; PCP Nurse Practitioner; Referring Provider Nurse Practitioner; Visit Provider Nurse Practitioner
DX: R51 Headache (principal)
CPT/HCPCS: 70460; Q9967

== ENCOUNTER → 2020-05-30 15:12 | Outpatient (CLI) | payer MEDICARE, BC, SELFPAY ==
[2020-05-30 15:37] LABS: COVID19 -Nasal RAPID Negative (Negative)
== END ==
PROVIDERS: Family Provider Nurse Practitioner; PCP Nurse Practitioner; Visit Provider Family Medicine
DX: R05 Cough (principal); R06.02 Shortness of breath; Z20.828 Contact with and (suspected) exposure to other viral communicable diseases
CPT/HCPCS: 87635

== ENCOUNTER → 2020-05-30 15:36 | Outpatient (CLI) | payer MEDICARE, BC, SELFPAY ==
--- NOTE | 2020-05-30 15:37 | DI.RAD.S_ITS ---
PROCEDURE: XR CHEST 2V INDICATIONS: cough TECHNIQUE: 2 views of the chest were acquired. COMPARISON: [facility], , CHEST 1 VIEW, 01/25/2017, 8:38. FINDINGS: Surgical changes and devices: Right upper quadrant surgical clips. Lungs and pleura: Lungs are clear. No pleural effusions or pneumothorax. Mediastinum: Mediastinal contours are normal. Heart size is normal. Bones and chest wall: No suspicious bony abnormalities. Soft tissues appear unremarkable. IMPRESSION: No acute disease. Dictated by: Christian Kelley M.D. on 05/30/2020 at 17:20 Approved by: Christian Kelley M.D. on 05/30/2020 at 17:23
== END ==
PROVIDERS: Family Provider Nurse Practitioner; PCP Nurse Practitioner; Referring Provider Nurse Practitioner; Visit Provider Family Medicine
DX: R05 Cough (principal); R06.02 Shortness of breath; Z20.828 Contact with and (suspected) exposure to other viral communicable diseases
CPT/HCPCS: 71046; 87635

== ENCOUNTER → 2020-06-13 10:48 | Outpatient (CLI) | payer MEDICARE, BC, SELFPAY ==
[2020-06-13 11:28] LABS: Add Manual Diff / Slide Review NO; Basophils Absolute Auto 0 /uL (0-100); Basophils Percent Auto 0.4 % (0-2); Eosinophils Absolute Auto 100 /uL (0-450); Eosinophils Percent Auto 2.5 % (2-4); Hematocrit 33.9 % (36-46); Hemoglobin 11.1 g/dL (12.0-16.0); Lymphocytes Absolute Auto 1400 /uL (1100-4500); Lymphocytes Percent Auto 33.5 % (25-40); Mean Corpuscular HGB Conc 32.8 % (30-36); Mean Corpuscular Hemoglobin 27.5 PG (26-34); Mean Corpuscular Volume 83.8 fL (80-100); Monocytes Absolute Auto 500 /uL (0-900); Monocytes Percent Auto 11.4 % (3-14); Neutrophils Absolute Auto 2100 /uL (1500-7000); Neutrophils Percent Auto 52.2 % (50-75); Platelet Count 232 X10^3/uL (150-400); Red Blood Cell Count 4.05 X10^6/uL (4.0-5.2); Red Cell Distribution Width 15.9 % (11.6-14.8); White Blood Cell Count 4.1 X10^3/uL (4.5-11.0)
[2020-06-13 11:46] LABS: Alanine Aminotransferase 42 IU/L (<35); Albumin 4.1 g/dL (3.5-5.0); Alkaline Phosphatase 108 U/L (38-126); Aspartate Aminotransferase 38 IU/L (14-36); BUN Creatinine Ratio 13.8 (6-22); Bilirubin Total 0.4 mg/dL (0.2-1.3); Blood Urea Nitrogen 11 mg/dL (7-17); Calcium 9.6 mg/dL (8.4-10.2); Carbon Dioxide 29 mmol/L (22-32); Chloride 99 mmol/L (98-107); Estimated Glomerular Filt Rate > 60.0 mL/min (>60); Globulin 4.3 g/dL (1.7-4.1); Glucose 88 mg/dL (80-110); HEMOLYSIS < 15 (0-50); Potassium 3.9 mmol/L (3.4-5.1); Sodium 133 mmol/L (137-145); Total Protein 8.4 g/dL (6.3-8.2)
== END ==
PROVIDERS: Family Provider Nurse Practitioner; PCP Nurse Practitioner; Referring Provider Nurse Practitioner; Visit Provider Nurse Practitioner
DX: G24.3 Spasmodic torticollis (principal); I10 Essential (primary) hypertension; G62.9 Polyneuropathy, unspecified; M35.00 Sjogren syndrome, unspecified; R06.00 Dyspnea, unspecified; R53.83 Other fatigue
CPT/HCPCS: 36415; 80053; 85025

== ENCOUNTER → 2020-06-29 10:56 | Outpatient (CLI) | payer MEDICARE, BC, SELFPAY ==
--- NOTE | 2020-06-29 10:58 | DI.CT.S_ITS ---
PROCEDURE: CT CHEST W CON INDICATIONS: Shortness of breath. Possible thymus gland abnormality TECHNIQUE: After the administration of intravenous contrast, 5 mm thick sections acquired from the pulmonary apices to the posterior costophrenic angles. 1 mm axial lung, 5 mm thick coronal and sagittal reformats and 7 mm axial MIP were acquired. For radiation dose reduction, the following was used: automated exposure control, adjustment of mA and/or kV according to patient size. COMPARISON: [facility], CT, ABDOMEN/PELVIS WITH CONTRAST, 08/05/2015, 13:30. [facility], CT, CT ABDOMEN PELVIS W CON, 11/08/2017, 15:03. [facility], CT, CT CHEST W CON, 04/02/2018, 12:49. FINDINGS: Image quality: Excellent. Lungs and pleura: No acute air space opacities. No pleural effusions or pneumothorax. Central and peripheral airways are patent and normal in caliber. Mediastinum: Heart size is normal. No pericardial effusion. There is moderate coronary artery calcification. A borderline sized mediastinal lymph node measures 9 mm, which is within normal limits by size criteria. No mediastinal or hilar adenopathy by size criteria. Thoracic aorta and central pulmonary arteries are normal in size. Esophagus is normal in caliber. Small hiatal hernia. Bones and chest wall: No suspicious bony lesions. No vertebral body compression fractures. No axillary or supraclavicular adenopathy by size criteria. Thyroid gland small is normal. Abdomen: Gallbladder is surgically absent. There is a 1.2 cm left adrenal nodule, unchanged since 08/05/2015. Hepatic steatosis. A calcified nodule in spleen is compatible with an old granuloma. IMPRESSION: 1. No mediastinal mass or lymphadenopathy. 3. A 1.2 cm indeterminate left adrenal nodule, stable since 08/05/2015, most likely benign such as an adrenal adenoma. If clinically indicated, adrenal protocol MRI may be helpful. 3. Moderate coronary artery atherosclerosis. 4. Hepatic steatosis. Dictated by: Yossi Garcia M.D. on 06/29/2020 at 11:42 Approved by: Yossi Garcia M.D. on 06/29/2020 at 14:31
== END ==
PROVIDERS: Family Provider Nurse Practitioner; PCP Nurse Practitioner; Referring Provider Psychiatry & Neurology Neurology; Visit Provider Psychiatry & Neurology Neurology
DX: R06.02 Shortness of breath (principal); E27.9 Disorder of adrenal gland, unspecified; I25.10 Atherosclerotic heart disease of native coronary artery without angina pectoris; K76.0 Fatty (change of) liver, not elsewhere classified
CPT/HCPCS: 71260

== ENCOUNTER → 2020-07-19 08:31 | Outpatient (CLI) | payer MEDICARE, BC, SELFPAY ==
[2020-07-20 15:36] LABS: Fecal Immunochemical Test Negative (Negative)
== END ==
PROVIDERS: Family Provider Nurse Practitioner; PCP Nurse Practitioner; Referring Provider Nurse Practitioner; Visit Provider Nurse Practitioner
DX: Z12.11 Encounter for screening for malignant neoplasm of colon (principal)
CPT/HCPCS: 82274

== ENCOUNTER → 2020-07-20 11:02 | Outpatient (CLI) | payer MEDICARE, BC, SELFPAY ==
--- NOTE | 2020-07-20 11:04 | DI.MG.S_ITS ---
BILATERAL DIGITAL SCREENING MAMMOGRAM 3D/2D WITH CAD: 07/20/2020 CLINICAL: Routine screening. Family history of breast cancer. Comparison is made to exams dated: 07/15/2019 mammogram, 06/28/2018 mammogram, and 06/24/2017 mammogram - [facility]. There are scattered fibroglandular elements in both breasts. Current study was also evaluated with a Computer Aided Detection (CAD) system. There is a stable benign focal asymmetry in the left breast. There also are stable benign calcifications in both breasts. No significant masses, calcifications, or other findings are seen in either breast. There has been no significant interval change. IMPRESSION: BENIGN There is no mammographic evidence of malignancy. A 1 year screening mammogram is recommended. This exam was interpreted at Station ID: [id number]. NOTE: For mammograms, a report in lay terms will be sent to the patient. Approximately 15% of breast malignancies will not be visualized mammographically. In the management of a palpable breast mass, a negative mammogram must not discourage biopsy of a clinically suspicious lesion. Electronically Signed By: Sam Fox acr/penrad:07/20/2020 12:47:28 letter sent: Normal Exam ACR BI-RADS Category 2: Benign Finding(s) [id number]
== END ==
PROVIDERS: Family Provider Nurse Practitioner; PCP Nurse Practitioner; Referring Provider Nurse Practitioner; Visit Provider Nurse Practitioner
DX: Z12.31 Encounter for screening mammogram for malignant neoplasm of breast (principal); Z80.3 Family history of malignant neoplasm of breast
CPT/HCPCS: 77063; 77067

== ENCOUNTER 2020-07-24 14:15 | Inpatient (IN) | payer MEDICARE, BC, SELFPAY ==
[2020-07-24] VITALS (18 sets, daily range): BP systolic 135–162; BP diastolic 65–82; PULSE 56–86; RESP 12–23; TEMP 36–36.6; O2SAT 96–100; BMI 33.3
--- NOTE | 2020-07-24 14:29 | DI.RAD.S_ITS ---
PROCEDURE: XR CHEST 1V INDICATIONS: chest pain TECHNIQUE: One view of the chest was acquired. COMPARISON: [facility], CT, CT CHEST W CON, 04/02/2018, 12:49. [facility], CT, CT CHEST W CON, 06/29/2020, 11:20. [facility], CR, XR CHEST 2V, 05/30/2020, 15:39. FINDINGS: Surgical changes and devices: Surgical clips are noted in the right lower neck. Lungs and pleura: Lungs are clear. No pleural effusions or pneumothorax. Mediastinum: Mediastinal contours appear normal. Heart size is normal. Bones and chest wall: No suspicious bony lesions. Overlying soft tissues appear unremarkable. IMPRESSION: No acute cardiopulmonary disease. Dictated by: Yossi Garcia M.D. on 07/24/2020 at 15:08 Approved by: Yossi Garcia M.D. on 07/24/2020 at 15:11
[2020-07-24 15:02] LABS: Add Manual Diff / Slide Review NO; Basophils Absolute Auto 100 /uL (0-100); Basophils Percent Auto 0.9 % (0-2); Eosinophils Absolute Auto 100 /uL (0-450); Eosinophils Percent Auto 1.8 % (2-4); Hemoglobin 11.8 g/dL (12.0-16.0); Lymphocytes Absolute Auto 1300 /uL (1100-4500); Lymphocytes Percent Auto 18.7 % (25-40); Mean Corpuscular HGB Conc 32.9 % (30-36); Mean Corpuscular Volume 85.3 fL (80-100); Monocytes Absolute Auto 400 /uL (0-900); Monocytes Percent Auto 6.1 % (3-14); Neutrophils Absolute Auto 5200 /uL (1500-7000); Neutrophils Percent Auto 72.5 % (50-75); Platelet Count 277 X10^3/uL (150-400); Red Blood Cell Count 4.22 X10^6/uL (4.0-5.2); Red Cell Distribution Width 15.5 % (11.6-14.8); White Blood Cell Count 7.1 X10^3/uL (4.5-11.0)
[2020-07-24 15:10] LABS: INR 1.1 (0.9-1.3); Prothrombin Time 12.2 SECONDS (10.1-12.7)
[2020-07-24 15:12] LABS: PTT Partial Thromboplastin Tim 33 SECONDS (26.4-36.2)
[2020-07-24 15:18] LABS: Alanine Aminotransferase 23 IU/L (<35); Albumin 4.4 g/dL (3.5-5.0); Albumin Globulin Ratio 1.3 (1.0-2.8); Alkaline Phosphatase 109 U/L (38-126); Aspartate Aminotransferase 27 IU/L (14-36); BUN Creatinine Ratio 13.7 (6-22); Bilirubin Total 0.4 mg/dL (0.2-1.3); Blood Urea Nitrogen 13 mg/dL (7-17); Calcium 10.1 mg/dL (8.4-10.2); Carbon Dioxide 31 mmol/L (22-32); Chloride 101 mmol/L (98-107); Creatine Kinase 112 U/L (30-135); Estimated Glomerular Filt Rate 58.2 mL/min (>60); Globulin 3.3 g/dL (1.7-4.1); Glucose 158 mg/dL (80-110); HEMOLYSIS < 15 (0-50); Potassium 3.4 mmol/L (3.4-5.1); Sodium 136 mmol/L (137-145); Total Protein 7.7 g/dL (6.3-8.2)
[2020-07-24 15:25] LABS: Lipase 3009 U/L (23-300)
[2020-07-24 15:27] LABS: Troponin I < 0.012 ng/mL (0.01-0.034)
[2020-07-24 15:33] LABS: CKMB % Relative Index 1.1 % (1.5-5.0); Creatine Kinase MB 1.24 ng/mL (<2.37)
--- NOTE | 2020-07-24 15:40 | ED.CHESTPAIN ---
HPI - Chest Pain General Chief Complaint: Chest Pain Stated Complaint: SHORTNESS OF BREATH, CHEST PAIN Time Seen by Provider: 07/24/20 14:42 Source: patient Mode of arrival: Ambulatory Limitations: no limitations History of Present Illness HPI narrative: Patient is a 70-year-old female with history of cholecystectomy, sjogrens syndrome, presenting today with chest pain and some shortness of breath. She says that over the last 2 weeks she has had some burning in her chest and some right shoulder discomfort. She occasionally feels nauseated but no real vomiting or abdominal pain. Today she was talking on the phone with her daughter while eating lunch and had significant burning in her chest and radiated to her right shoulder. She felt slightly short of breath at that time. No fever or chills. No productive cough. She actually now states that maybe she had intense abdominal pain which started suddenly and then maybe radiated up to her chest. She is no longer having abdominal pain she feels a little nauseous but no vomiting. MD complaint: chest pain Duration: now resolved Onset: during rest Pain location: substernal Pain radiation: other (right shoulder) Related Data Home Medications Medication Instructions Recorded Confirmed [turmeric] #0 05/17/16 06/22/20 aspirin 81 mg PO QDAY #0 01/25/17 06/22/20 Loraine 3 PO .QDAY 09/16/19 06/22/20 Psyllium fiber PO .QDAY 09/16/19 06/22/20 alpha lipoic acid PO .QDAY 09/16/19 06/22/20 magnesium citrate PO 05/30/20 06/22/20 Previous Rx's Medication Instructions Recorded miscellaneous medical supply 1 each .ROUTE .COMPLEX #1 each 08/23/19 hydrochlorothiazide 50 mg tablet 50 mg PO DAILY #90 tab 11/23/19 losartan 100 mg tablet 100 mg PO DAILY #90 tab 11/23/19 ondansetron 4 mg PO Q6H PRN #20 tab 01/15/20 aripiprazole 20 mg tablet See Rx Instructions .ROUTE 02/17/20 .COMPLEX #45 tab benzonatate 100 mg capsule 100 mg PO TID PRN #30 cap 05/30/20 ferrous sulfate 325 mg (65 mg 325 mg PO DAILY #90 tab 06/22/20 iron) tablet Allergies Allergy/AdvReac Type Severity Reaction Status Date / Time cimetidine [From TAGAMET] Allergy Mild hallucinati Verified 07/24/20 14:29 ons codeine [CODEINE] Allergy Mild hallucinati Verified 07/24/20 14:29 ons lisinopril [LISINOPRIL] Allergy Mild cough/GI Verified 07/24/20 14:29 issues ranitidine [From ZANTAC] Allergy Mild hallucinati Verified 07/24/20 14:29 ons Review of Systems Review of Systems ROS Unobtainable: All systems reviewed & are unremarkable except as noted in HPI and below Constitutional Constitutional: Denies chills, Denies fever(s), Denies lethargy and Denies weakness Eyes Eyes: Denies change in vision, Denies eye discharge, Denies irritation and Denies loss of vision Cardiovascular Cardiovascular: Reports as per HPI, Denies dyspnea and Denies dyspnea on exertion Respiratory Respiratory: Denies cough, Denies dyspnea, Denies dyspnea on exertion and Denies wheezing Gastrointestinal Gastrointestinal: Reports as per HPI and Reports nausea Musculoskeletal Musculoskeletal: Denies back pain and Denies myalgias Integumentary/Breasts Skin/Breast: Denies pruritus, Denies erythema, Denies rash and Denies wounds Neurologic Neurologic: Denies loss of vision and Denies weakness Allergic/Immunologic Allergic/Immunologic: Denies wheezing Patient History Medical History Abdominal pain Activity intolerance Anemia Anosmia Atypical chest pain Cervical dystonia (1986) Chicken pox (1956) Cholecystectomy planned Chronic fatigue (08/07/15) Colon polyps Cough CTS (carpal tunnel syndrome) (1986) Denervation of muscle Depression (1974) Diastasis of rectus abdominis (08/07/15) Dyspnea Dyspnea Dyspnea on exertion Episodic lightheadedness Fatigue Gastritis Generalized abdominal pain (08/07/15) Headache Hyperlipidemia Hypertension Itch of skin Measles (8) Metallic taste (10/11/15) Mumps (1958) Neoplasm of uncertain behavior of skin (10/11/15) NSAID induced gastritis Osteopenia after menopause Peripheral neuropathy (2012) Piriformis syndrome of right side Progressive neurological disorder Right hip pain Shortness of breath (08/27/15) Sjogren's syndrome (2012) Skin cancer (2015) Sleep apnea (2009) Small fiber polyneuropathy SOB (shortness of breath) (2010) Status post DANILO-BSO Visual disturbance Surgical History Anesthesia complication History of carpal tunnel repair (1989) History of cervical spinal surgery (07/2008) History of laparoscopic cholecystectomy (2006) S/P DANILO-BSO (total abdominal hysterectomy and bilateral salpingo-oophorectomy) (01/2007) Status post hernia repair (2013) Status post hernia repair (2007) Family History Brother Age: 63 Prostate cancer Heart disease Hypertension High cholesterol Heart attack Brother Age: 61 Hypertension Mental health problem Kidney transplant recipient Chronic kidney disease with end stage renal failure on dialysis Father Colon cancer Heart disease Mental health problem Heart failure Grandfather Heart disease Hypertension Brain aneurysm Mother Cancer Hypertension NHL (non-Hodgkin's lymphoma) Grandmother Stroke Sister Age: 69 Celiac disease High cholesterol Mental health problem Thyroid disorder Sister Age: 65 Psoriatic arthritis Thyroid disorder Grandmother Alzheimer's disease Grandfather Colon cancer Sister Breast cancer Sister Suicide Brother No problems noted. Sister Thyroid disorder Social History marital status: household members: spouse occupational status: previously employed Smoking Status: Never smoker alcohol intake: current substance use type: does not use Smoking Status: Never smoker alcohol intake frequency: holidays/special occasions only Substance Use Type: does not use Exam Initial Vital Signs Initial Vital Signs: Vital Signs Temperature 97.8 F 07/24/20 14:22 Pulse Rate 85 07/24/20 14:22 Respiratory Rate 16 07/24/20 14:22 Blood Pressure 144/79 H 07/24/20 14:22 Pulse Oximetry 99 07/24/20 14:22 GENERAL: Well-appearing, well-nourished and in no acute distress. HEENT: Head atraumatic,EOMI, pupils reactive, face symmetric, moist mucous membranes CARDIOVASCULAR: Regular rate and rhythm without murmurs, rubs or gallops. RESPIRATORY: Breath sounds equal bilaterally, no wheezes rales or rhonchi. ABDOMEN: Soft, nontender. Negative Bourgeois sign EXTREMITIES: Normal range of motion, no clubbing or edema. Neurovascularly intact NEUROLOGICAL: Alert and oriented x4.Normal gait and speech. Cranial nerves II through XII grossly intact. SKIN: Warm, dry, no laceration, no petechiae, no rashes or lesions. Course Orders Ordered: ED Orders 07/24/20 14:29 XR chest 1V Stat EKG-12 Lead Stat 07/24/20 14:55 Complete Blood Count AUTO DIFF Stat Comprehensive Metabolic Panel Stat Lipase Stat Partial Thromboplastin Time Stat Prothrombin Time INR Stat Troponin & CK Cardiac Panel Stat 07/24/20 16:00 US abdomen limited Stat 07/24/20 17:38 CT abdomen pelvis w con Stat Sodium Chloride (Normal Saline 0.9%) 1,000 mls @ 125 mls/hr IV CONT FREDDIE Last Admin: 07/24/20 19:20 Dose: 125 mls/hr Documented by: SYDNI Discontinued Medications Sodium Chloride (Normal Saline 0.9%) 1,000 mls @ 1,000 mls/hr IV BOLUS ONE Stop: 07/24/20 16:59 Last Infusion: 07/24/20 17:42 Dose: 0 mls/hr Documented by: Admin: 07/24/20 16:18 Dose: 1,000 mls/hr Documented by: SYDNI Vital Signs Vital signs: Vital Signs - 8 hr 07/24/20 14:22 07/24/20 14:24 07/24/20 14:26 Temperature 97.8 F Pulse Rate 85 86 Respiratory Rate 16 15 Blood Pressure 144/79 H 144/79 H Pulse Oximetry 99 97 100 07/24/20 14:30 07/24/20 15:00 07/24/20 15:21 Temperature Pulse Rate 83 76 73 Respiratory Rate 17 15 Blood Pressure 144/82 H 157/80 H Pulse Oximetry 100 99 99 07/24/20 15:27 07/24/20 15:30 07/24/20 16:00 Temperature Pulse Rate 74 73 69 Respiratory Rate 18 13 15 Blood Pressure 154/75 H 149/80 H 143/81 H Pulse Oximetry 99 98 97 07/24/20 16:30 07/24/20 17:00 07/24/20 17:30 Temperature Pulse Rate 75 56 L 69 Respiratory Rate 22 12 16 Blood Pressure 135/78 140/72 Pulse Oximetry 96 99 100 07/24/20 18:07 07/24/20 18:30 07/24/20 19:00 Temperature Pulse Rate 64 65 Respiratory Rate 23 17 Blood Pressure Pulse Oximetry 100 97 98 MDM - Chest Pain Lab Data Attestation: I reviewed the patient's lab results. Result diagrams: 07/24/20 14:55 07/24/20 14:55 Labs: Lab Results 07/24/20 07/24/20 07/24/20 Range/Units 14:55 14:55 14:55 WBC 7.1 (4.5-11.0) X10^3/uL RBC 4.22 (4.0-5.2) X10^6/uL Hgb 11.8 L (12.0-16.0) g/dL Hct 36.0 (36-46) % MCV 85.3 (80-100) fL MCH 28.0 (26-34) PG MCHC 32.9 (30-36) % RDW 15.5 H (11.6-14.8) % Plt Count 277 (150-400) X10^3/uL Neut % (Auto) 72.5 (50-75) % Lymph % (Auto) 18.7 L (25-40) % Mccracken % (Auto) 6.1 (3-14) % Eos % (Auto) 1.8 L (2-4) % Baso % (Auto) 0.9 (0-2) % Neut # (Auto) 5200 (0639-4654) /uL Lymph # (Auto) 1300 (7961-4280) /uL Mccracken # (Auto) 400 (0-900) /uL Eos # (Auto) 100 (0-450) /uL Baso # (Auto) 100 (0-100) /uL PT 12.2 (10.1-12.7) SECONDS INR 1.1 (0.9-1.3) APTT 33 (26.4-36.2) SECONDS Sodium 136 L (137-145) mmol/L Potassium 3.4 (3.4-5.1) mmol/L Chloride 101 (98-107) mmol/L Carbon Dioxide 31 (22-32) mmol/L BUN 13 (7-17) mg/dL Creatinine 0.95 (0.52-1.04) mg/dL Estimated GFR 58.2 L (>60) mL/min BUN/Creatinine Ratio 13.7 (6-22) Glucose 158 H (80-110) mg/dL Calcium 10.1 (8.4-10.2) mg/dL Total Bilirubin 0.4 (0.2-1.3) mg/dL AST 27 (14-36) IU/L ALT 23 (<35) IU/L Alkaline Phosphatase 109 (38-126) U/L Total Creatine Kinase 112 (30-135) U/L CK-MB (CK-2) 1.24 (<2.37) ng/mL CK-MB (CK-2) Rel Index 1.1 L (1.5-5.0) % Troponin I < 0.012 (0.01-0.034) ng/mL Total Protein 7.7 (6.3-8.2) g/dL Albumin 4.4 (3.5-5.0) g/dL Globulin 3.3 (1.7-4.1) g/dL Albumin/Globulin Ratio 1.3 (1.0-2.8) Lipase 3009 H (23-300) U/L Imaging Data Chest x-ray: Radiologist's Impression: PROCEDURE: XR CHEST 1V INDICATIONS: chest pain TECHNIQUE: One view of the chest was acquired. COMPARISON: [facility], CT, CT CHEST W CON, 04/02/2018, 12:49. [facility], CT, CT CHEST W CON, 06/29/2020, 11:20. [facility], CR, XR CHEST 2V, 05/30/2020, 15:39. FINDINGS: Surgical changes and devices: Surgical clips are noted in the right lower neck. Lungs and pleura: Lungs are clear. No pleural effusions or pneumothorax. Mediastinum: Mediastinal contours appear normal. Heart size is normal. Bones and chest wall: No suspicious bony lesions. Overlying soft tissues appear unremarkable. IMPRESSION: No acute cardiopulmonary disease. Dictated by: Yossi Garcia M.D. on 07/24/2020 at 15:08 US - abdomen: Radiologist's Impression: PROCEDURE: US ABDOMEN LIMITED INDICATIONS: RUQ pancreatitis, hx ibrahima TECHNIQUE: Real-time focused scanning was performed of the abdomen, with image documentation. COMPARISON: [facility], CT, CT CHEST W CON, 06/29/2020, 11:20. FINDINGS: Diffusely increased hepatic echotexture consistent with fatty infiltration. Gallbladder is surgically absent. No fluid collection in the gallbladder fossa. Common bile duct is normal in caliber measuring 5 mm. Pancreas is not well seen. IMPRESSION: Diffusely increased hepatic echotexture. This finding is most likely secondary to hepatic fatty infiltration although other hepatocellular disease may have a similar appearance. Recommend clinical correlation. Dictated by: Yossi Garcia M.D. on 07/24/2020 at 17:26 CT scan - abdomen/pelvis: Radiologist's Impression: PROCEDURE: CT ABDOMEN PELVIS W CON INDICATIONS: pancreatitis TECHNIQUE: After the administration of intravenous contrast, 5 mm thick sections acquired from the diaphragm to the symphysis. 5 mm coronal and sagittal reformats were acquired. For radiation dose reduction, the following was used: automated exposure control, adjustment of mA and/or kV according to patient size. COMPARISON: [facility], CR, L-SPINE 2-3 VIEWS, 06/03/2017, 14:24. [facility], CT, ABDOMEN/PELVIS WITH CONTRAST, 08/05/2015, 13:30. [facility], [place], [place] BONE 3 PHASE, 11/12/2017, 9:36. [facility], CT, CT ABDOMEN PELVIS W CON, 11/08/2017, 15:03. [facility], CT, CT ABDOMEN PELVIS W CON, 01/15/2020, 11:57. FINDINGS: Image quality: Excellent. ABDOMEN: Lung bases: Lung bases are clear. Heart size is normal. Small hiatal hernia. Solid organs: There is hepatic steatosis. Liver is normal in size and enhancement. Gallbladder is surgically absent. Common bile duct is mildly dilated measuring 8.5 mm, presumably secondary to cholecystectomy. Pancreas enhances normally. Spleen is normal in size and enhancement. Calcific densities in spleen are most likely old granulomas. There is a 1.2 cm left adrenal nodule, unchanged in size. Kidneys demonstrate normal size and enhancement, without hydronephrosis. There is a 1.2 cm exophytic cyst in the inferior pole of the left kidney. Peritoneum and bowel: There are numerous colonic diverticula. No CT findings to suggest acute diverticulitis. Bowel loops demonstrate normal wall thickness and caliber. No free fluid or air. Nodes and vessels: No retroperitoneal or mesenteric adenopathy by size criteria. Aorta and inferior vena cava are normal in size. Miscellaneous: Small fat containing ventral hernia is noted. There is thinning of the right rectus abdominis muscle, unchanged since 08/05/2015. PELVIS: Genitourinary: Bladder wall thickness is normal. Miscellaneous: No inguinal hernias or adenopathy. Bones: No suspicious bony lesions. No vertebral body compression fractures. There is a cystic lesion in sacrum within the sacral spinal canal, which appears unchanged since 08/05/2015. IMPRESSION: 1. Normal CT appearance of pancreas which does not rule out clinical pancreatitis. No findings to suggest pancreatic necrosis. No pancreatic duct dilation, pancreatic pseudocyst or calcification. 2. Diverticulosis without acute diverticulitis. 3. Hepatic steatosis. 4. Stable left adrenal nodule. 5. Stable cystic in lesion in sacrum. Dictated by: Yossi Garcia M.D. on 07/24/2020 at 18:18 ECG Data Attestation: I personally reviewed and interpreted this ECG as follows: Prior ECG tracings: available for review Interpretation: Normal sinus rhythm rate 76 p.r. interval 160 QRS [address] changes no T-wave inversions similar to previous EKG MDM Narrative Medical decision making narrative: Patient is surprisingly found to have elevated lipase of 3000. No levator id bilirubin ultrasound and CT not show any sign of acute pancreatitis. She actually has very minimal signs and symptoms of pancreatitis except that she had severe sudden onset of abdominal pain which is now resolved. She states that she still feels little bit nauseous and has some mild right upper quadrant pain which she has had off and on. No clear cause of pancreatitis does not appear to be gallbladder induced especially since she has had a cholecystectomy and does not seem to have significant alcohol use. Dr. Cassidy updated on patient's sinus symptoms agrees with observation Discharge Plan Departure Patient Disposition: Admitted as Observation Clinical Impression: Acute pancreatitis Qualifiers: Pancreatitis type: unspecified pancreatitis type Acute pancreatitis complication: unspecified Qualified Code(s): K85.90 - Acute pancreatitis without necrosis or infection, unspecified Admit Date/Time: 07/24/20 19:10 Admit Provider: Alli Cassidy
--- NOTE | 2020-07-24 16:00 | DI.US.S_ITS ---
PROCEDURE: US ABDOMEN LIMITED INDICATIONS: RUQ pancreatitis, hx ibrahima TECHNIQUE: Real-time focused scanning was performed of the abdomen, with image documentation. COMPARISON: [facility], CT, CT CHEST W CON, 06/29/2020, 11:20. FINDINGS: Diffusely increased hepatic echotexture consistent with fatty infiltration. Gallbladder is surgically absent. No fluid collection in the gallbladder fossa. Common bile duct is normal in caliber measuring 5 mm. Pancreas is not well seen. IMPRESSION: Diffusely increased hepatic echotexture. This finding is most likely secondary to hepatic fatty infiltration although other hepatocellular disease may have a similar appearance. Recommend clinical correlation. Dictated by: Yossi Garcia M.D. on 07/24/2020 at 17:26 Approved by: Yossi Garcia M.D. on 07/24/2020 at 17:27
[2020-07-24] MEDS: SODIUM CHLORIDE 0.9% 1,000 ML 1000 ML IV (16:18)
--- NOTE | 2020-07-24 17:38 | DI.CT.S_ITS ---
PROCEDURE: CT ABDOMEN PELVIS W CON INDICATIONS: pancreatitis TECHNIQUE: After the administration of intravenous contrast, 5 mm thick sections acquired from the diaphragm to the symphysis. 5 mm coronal and sagittal reformats were acquired. For radiation dose reduction, the following was used: automated exposure control, adjustment of mA and/or kV according to patient size. COMPARISON: [facility], CR, L-SPINE 2-3 VIEWS, 06/03/2017, 14:24. [facility], CT, ABDOMEN/PELVIS WITH CONTRAST, 08/05/2015, 13:30. [facility], [place], [place] BONE 3 PHASE, 11/12/2017, 9:36. [facility], CT, CT ABDOMEN PELVIS W CON, 11/08/2017, 15:03. [facility], CT, CT ABDOMEN PELVIS W CON, 01/15/2020, 11:57. FINDINGS: Image quality: Excellent. ABDOMEN: Lung bases: Lung bases are clear. Heart size is normal. Small hiatal hernia. Solid organs: There is hepatic steatosis. Liver is normal in size and enhancement. Gallbladder is surgically absent. Common bile duct is mildly dilated measuring 8.5 mm, presumably secondary to cholecystectomy. Pancreas enhances normally. Spleen is normal in size and enhancement. Calcific densities in spleen are most likely old granulomas. There is a 1.2 cm left adrenal nodule, unchanged in size. Kidneys demonstrate normal size and enhancement, without hydronephrosis. There is a 1.2 cm exophytic cyst in the inferior pole of the left kidney. Peritoneum and bowel: There are numerous colonic diverticula. No CT findings to suggest acute diverticulitis. Bowel loops demonstrate normal wall thickness and caliber. No free fluid or air. Nodes and vessels: No retroperitoneal or mesenteric adenopathy by size criteria. Aorta and inferior vena cava are normal in size. Miscellaneous: Small fat containing ventral hernia is noted. There is thinning of the right rectus abdominis muscle, unchanged since 08/05/2015. PELVIS: Genitourinary: Bladder wall thickness is normal. Miscellaneous: No inguinal hernias or adenopathy. Bones: No suspicious bony lesions. No vertebral body compression fractures. There is a cystic lesion in sacrum within the sacral spinal canal, which appears unchanged since 08/05/2015. IMPRESSION: 1. Normal CT appearance of pancreas which does not rule out clinical pancreatitis. No findings to suggest pancreatic necrosis. No pancreatic duct dilation, pancreatic pseudocyst or calcification. 2. Diverticulosis without acute diverticulitis. 3. Hepatic steatosis. 4. Stable left adrenal nodule. 5. Stable cystic in lesion in sacrum. Dictated by: Yossi Garcia M.D. on 07/24/2020 at 18:18 Approved by: Yossi Garcia M.D. on 07/24/2020 at 18:31
[2020-07-24] MEDS: SODIUM CHLORIDE 0.9% 1,000 ML 125 ML IV (19:20)
[2020-07-24 19:53] LABS: Cholesterol 195 mg/dL (140-199); HDL Cholesterol 48 mg/dL (40-60); LDL Cholesterol Calculated 104 mg/dL (<100); Triglycerides 215 mg/dL (35-150)
[2020-07-24] MEDS: PANTOPRAZOLE 40 MG VIAL IV (20:34)
[2020-07-24] MEDS: PYRIDOSTIGMINE 60 MG TABLET PO (21:22)
--- NOTE | 2020-07-24 22:08 | PC.ADMIT ---
[email or web address] [place] [address] Admission Note: 1931 A/Ox4, arrived via gurney from ED, able to ambulate to bed with minimal assistance, at bedside, VSS, connected to monitoring, oriented to room and call light system. Bed low and locked, call light within reach, will continue to monitor The patient,Elizabeth Maravilla,70 y/o, was given written information regarding hospital policies, unit procedures and contact persons. Patient's smoking status: Never smoker. Vital Signs - 8 hr 07/24/20 14:22 07/24/20 14:24 07/24/20 14:26 Temperature 97.8 F Pulse Rate 85 86 Respiratory Rate 16 15 Blood Pressure 144/79 H 144/79 H Pulse Oximetry 99 97 100 07/24/20 14:30 07/24/20 15:00 07/24/20 15:21 Temperature Pulse Rate 83 76 73 Respiratory Rate 17 15 Blood Pressure 144/82 H 157/80 H Pulse Oximetry 100 99 99 07/24/20 15:27 07/24/20 15:30 07/24/20 16:00 Temperature Pulse Rate 74 73 69 Respiratory Rate 18 13 15 Blood Pressure 154/75 H 149/80 H 143/81 H Pulse Oximetry 99 98 97 07/24/20 16:30 07/24/20 17:00 07/24/20 17:30 Temperature Pulse Rate 75 56 L 69 Respiratory Rate 22 12 16 Blood Pressure 135/78 140/72 Pulse Oximetry 96 99 100 07/24/20 18:07 07/24/20 18:30 07/24/20 19:00 Temperature Pulse Rate 64 65 Respiratory Rate 23 17 Blood Pressure Pulse Oximetry 100 97 98 07/24/20 19:52 07/24/20 20:01 Temperature 96.8 F L Pulse Rate 56 L Respiratory Rate 16 Blood Pressure 162/65 H Pulse Oximetry 97 98
--- NOTE | 2020-07-24 23:14 | P.HP_ITS ---
History of Present Illness History of Present Illness Date Patient Seen: 07/24/20 Time Patient Seen: 20:42 Chief complaint: SHORTNESS OF BREATH, CHEST PAIN Narrative: Ms. Elizabeth hernandez is a 70-year-old female with past medical history significant for small fiber polyneuropathy, cervical dystonia, atypical chest pain, dyspnea on exertion, chronic fatigue, HTN, hyperlipidemia, NSAID induced gastritis and Sjogren's who presents to the ER with complaints chest tightness and shortness of breath. The patient states that she developed an abrupt onset of tightness in her chest and right upper quadrant abdominal pain following eating at approximately 12:20 p.m. this afternoon. The patient the patient has had progressive difficulty breathing and has been evaluated and worked up for neurological disorder that is thought to possibly myasthenia gravis. The patient acknowledges exertional dyspnea and is unable to ascend a flight of stairs without stopping and resting that is not new but is improved with treatment with pyridostigmine. The patient describes right upper quadrant discomfort at the costal margin with point tenderness. She reports associated intermittent nausea without vomiting but denies fevers and chills, cough or wheezing, diarrhea or constipation and denies urinary symptoms. The patient does acknowledge that she had a 2nd COVID vaccination 2 weeks ago after which she did have symptoms including headache and malaise that resulted prior to today's episode. The patient uses a cane or walker for ambulation related to her neurologic disorder and polyneuropathy. Upon arrival to the ER the patient's temperature 97.8?, heart rate of 85, blood pressure 144/78, respirations 16 saturating 99% on room air. Twelve lead EKG is obtained which finds sinus rhythm with PVC biphasic P wave consistent with left atrial enlargement, no ST or T-wave changes, Q-waves inferiorly. Chest x-ray is obtained which finds no acute cardiopulmonary findings. CT of the finds normal pancreas, no suggestion of necrosis or pseudocyst, no ductal dilatation, hepatic steatosis, diverticulosis without diverticulitis. Abdominal ultrasound of the right upper quadrant identifies diffusely increased hepatic echotexture, gallbladder surgically absent without fluid collection. CBC reveals a white count of 7.1 with no shift, hemoglobin 11.8, hematocrit 36.0 platelets 277. Coags are all within normal limits. On chemistries are electrolytes are within normal range has a BUN of 13 and creatinine 0.95. She has a EGFR of 58.2. Her nonfasting glucose is 158. Liver functions are all within normal limits, albumin is 4.4 lipase is 3009. Total CK is 112 with CK-MB of 1.24 for an index of 1.1. Troponin is negative at less than 0.012. In the ER the patient received 1 L bolus of saline and normal saline 125 cc/hour. The patient is admitted to the hospitalist service for acute pancreatitis of unclear etiology. Neurologist: Dr. Julian Meza [employer] Teacher: Dr. Art Maravilla Patient History Medical History Abdominal pain Activity intolerance Anemia Anosmia Atypical chest pain Cervical dystonia (1986) Chicken pox (1956) Cholecystectomy planned Chronic fatigue (08/07/15) Colon polyps Cough CTS (carpal tunnel syndrome) (1986) Denervation of muscle Depression (1974) Diastasis of rectus abdominis (08/07/15) Dyspnea Dyspnea Dyspnea on exertion Episodic lightheadedness Fatigue Gastritis Generalized abdominal pain (08/07/15) Headache Hyperlipidemia Hypertension Itch of skin Measles (1957) Metallic taste (10/11/15) Mumps (1958) Neoplasm of uncertain behavior of skin (10/11/15) NSAID induced gastritis Osteopenia after menopause Peripheral neuropathy (2012) Piriformis syndrome of right side Progressive neurological disorder Right hip pain Shortness of breath (08/27/15) Sjogren's syndrome (2012) Skin cancer (2015) Sleep apnea (2009) Small fiber polyneuropathy SOB (shortness of breath) (2010) Status post DANILO-BSO Visual disturbance Surgical History Anesthesia complication History of carpal tunnel repair (1989) History of cervical spinal surgery (07/2008) History of laparoscopic cholecystectomy (2006) S/P DANILO-BSO (total abdominal hysterectomy and bilateral salpingo-oophorectomy) (01/2007) Status post hernia repair (2013) Status post hernia repair (2007) Family & Social History Family History Brother Age: 63 Prostate cancer Heart disease Hypertension High cholesterol Heart attack Brother Age: 61 Hypertension Mental health problem Kidney transplant recipient Chronic kidney disease with end stage renal failure on dialysis Father Colon cancer Heart disease Mental health problem Heart failure Grandfather Heart disease Hypertension Brain aneurysm Mother Cancer Hypertension NHL (non-Hodgkin's lymphoma) Grandmother Stroke Sister Age: 69 Celiac disease High cholesterol Mental health problem Thyroid disorder Sister Age: 65 Psoriatic arthritis Thyroid disorder Grandmother Alzheimer's disease Grandfather Colon cancer Sister Breast cancer Sister Suicide Brother No problems noted. Sister Thyroid disorder Social History: household members spouse Prior Living Arrangements House Safety & Behavioral: Feels Safe in Current Yes Environment Been Physically Hurt or No Threatened By a Person Suicidal Ideation Description None Suicide Plan Description No Plan Tobacco & Substance use: Smoking Status Never smoker alcohol intake current alcohol intake frequency holiday/special occasion Substance Use Type does not use Meds Home Medications and Allergies Home Medications Medication Instructions Recorded Confirmed Type [turmeric] 1,000 mg PO DAILY #0 05/17/16 07/24/20 History aspirin 81 mg PO QPM #0 01/25/17 07/24/20 History miscellaneous medical supply 1 each .ROUTE .COMPLEX #1 each 08/23/19 07/24/20 Rx Ferron 3 690 mg PO .QDAY 09/16/19 07/24/20 History Psyllium fiber 12 mg PO .QDAY 09/16/19 07/24/20 History alpha lipoic acid 600 mg PO .QDAY 09/16/19 07/24/20 History hydrochlorothiazide 50 mg tablet 50 mg PO DAILY #90 tab 11/23/19 07/24/20 Rx losartan 100 mg tablet 100 mg PO DAILY #90 tab 11/23/19 07/24/20 Rx aripiprazole 20 mg tablet See Rx Instructions .ROUTE 02/17/20 07/24/20 Rx .COMPLEX #45 tab pyridostigmine bromide 60 mg PO TID 07/24/20 07/24/20 History Allergies Allergy/AdvReac Type Severity Reaction Status Date / Time cimetidine [From TAGAMET] Allergy Mild hallucinati Verified 07/24/20 14:29 ons codeine [CODEINE] Allergy Mild hallucinati Verified 07/24/20 14:29 ons lisinopril [LISINOPRIL] Allergy Mild cough/GI Verified 07/24/20 14:29 issues ranitidine [From ZANTAC] Allergy Mild hallucinati Verified 07/24/20 14:29 ons Review of Systems Review of Systems ROS: Yes All systems reviewed with the patient and are negative except as otherwise documented Exam Vital Signs (past 8 hours): - 07/24/20 15:21 07/24/20 15:27 07/24/20 15:30 Temperature Pulse Rate 73 74 73 Respiratory Rate 15 18 13 Blood Pressure 154/75 H 149/80 H Pulse Oximetry 99 99 98 07/24/20 16:00 07/24/20 16:30 07/24/20 17:00 Temperature Pulse Rate 69 75 56 L Respiratory Rate 15 22 12 Blood Pressure 143/81 H 135/78 140/72 Pulse Oximetry 97 96 99 07/24/20 17:30 07/24/20 18:07 07/24/20 18:30 Temperature Pulse Rate 69 64 65 Respiratory Rate 16 23 17 Blood Pressure Pulse Oximetry 100 100 97 07/24/20 19:00 07/24/20 19:52 07/24/20 20:01 Temperature 96.8 F L Pulse Rate 56 L Respiratory Rate 16 Blood Pressure 162/65 H Pulse Oximetry 98 97 98 Oxygen Delivery Method Room Air Narrative Exam Narrative: GENERAL APPEARANCE: well developed, well nourished, in no acute distress. HEENT: Normocephalic, PERRLA, conjunctiva clear, EOMs intact without nystagmus, mucous membranes are moist and pink without lesions or exudate. NECK/THYROID: neck supple, no JVD, no thyromegaly, trachea midline. LYMPH NODES: no cervical or supraclavicular lymphadenopathy. SKIN: [place], warm and dry, no visible rashes. HEART: regular rate and rhythm, S1-S2, no murmur, no rubs or gallops, brisk capillary refill, trace edema LUNGS: clear to auscultation bilaterally, no coarseness crackles or wheezing, no cough present, no conversational dyspnea. CHEST: Symmetrical movement, no accessory muscle use, good tidal volume, no pain on AP and lateral compression.. ABDOMEN: Soft, obese, point tenderness on palpation RUQ at the costal margin at the midclavicular line, no guarding or peritoneal signs, no organomegaly, no f lank tenderness, active bowel tones. BACK: Normal curvature, nontender to palpation, no CVA tenderness on percussion EXTREMITIES: moves all extremities, strength is 5/5 and symmetrical, no deformities or joint effusions. NEUROLOGIC: AAO x4, cranial nerves II-XII grossly intact, neuropathy bilateral lower extremities, hearing grossly normal to speech. PSYCH: Calm and interactive with good eye contact, cooperative, appropriate with stable behavior Objective Labs Result Diagrams: 07/24/20 14:55 07/24/20 14:55 Labs: Laboratory Results - last 24 hr 07/24/20 07/24/20 07/24/20 14:55 14:55 14:55 WBC 7.1 RBC 4.22 Hgb 11.8 L Hct 36.0 MCV 85.3 MCH 28.0 MCHC 32.9 RDW 15.5 H Plt Count 277 Neut % (Auto) 72.5 Lymph % (Auto) 18.7 L [place] % (Auto) 6.1 Eos % (Auto) 1.8 L Baso % (Auto) 0.9 Neut # (Auto) 5200 Lymph # (Auto) 1300 [place] # (Auto) 400 Eos # (Auto) 100 Baso # (Auto) 100 PT 12.2 INR 1.1 APTT 33 Sodium 136 L Potassium 3.4 Chloride 101 Carbon Dioxide 31 BUN 13 Creatinine 0.95 Estimated GFR 58.2 L BUN/Creatinine Ratio 13.7 Glucose 158 H Calcium 10.1 Magnesium Total Bilirubin 0.4 AST 27 ALT 23 Alkaline Phosphatase 109 Total Creatine Kinase 112 CK-MB (CK-2) 1.24 CK-MB (CK-2) Rel Index 1.1 L Troponin I < 0.012 Total Protein 7.7 Albumin 4.4 Globulin 3.3 Albumin/Globulin Ratio 1.3 Triglycerides Cholesterol LDL Cholesterol, Calc HDL Cholesterol Lipase 3009 H 07/24/20 07/24/20 14:55 14:55 WBC RBC Hgb Hct MCV MCH MCHC RDW Plt Count Neut % (Auto) Lymph % (Auto) [place] % (Auto) Eos % (Auto) Baso % (Auto) Neut # (Auto) Lymph # (Auto) [place] # (Auto) Eos # (Auto) Baso # (Auto) PT INR APTT Sodium Potassium Chloride Carbon Dioxide BUN Creatinine Estimated GFR BUN/Creatinine Ratio Glucose Calcium Magnesium 2.0 Total Bilirubin AST ALT Alkaline Phosphatase Total Creatine Kinase CK-MB (CK-2) CK-MB (CK-2) Rel Index Troponin I Total Protein Albumin Globulin Albumin/Globulin Ratio Triglycerides 215 H Cholesterol 195 LDL Cholesterol, Calc 104 H HDL Cholesterol 48 Lipase Assessment & Plan Assessment & Plan narrative: This is a 70-year-old female patient with a complex past medical history who presents with right upper quadrant abdominal pain appearing to radiate into the chest with associated shortness of breath onset following eating. 1. Acute pancreatitis, present on admission, active -patient with palpable reproducible right upper quadrant pain. Patient's previous intense pain was following eating. -CT exam of finds a normal pancreas without suggestion of necrosis or pseudocyst, no ductal dilatation. Hepatic steatosis is noted. Abdominal ul trasound of the right upper quadrant further defines diffusely increased hepatic echotexture, gallbladder surgically absent no fluid collection. -white count is within normal range of 7.2 with no shift, liver function tests are all within normal range, lipase is elevated at 3009. -patient will be NPO except for meds. Ordered normal saline 125 cc/hour. -Protonix is ordered for GI protection. -will re-evaluate in the morning and consider trial of clear liquid diet. 2. Atypical chest pain, acute, active. -patient reports episodic burning chest discomfort that radiates to the right shoulder. Today the patient reports chest tightness opposed to burning without shoulder radiation. The patient is for pain-free at time of exam. -patient presently denies shortness of breath and reports mild nausea without diaphoresis. -12 lead EKG is feels sinus rhythm with PVC, left atrial enlargement, previous inferior infarct. -chest x-ray finds no acute cardiopulmonary findings, no cardiomegaly or pulmo nary edema. -total CK is 112, CK-MB is 1.24, index is 1.1 and troponin is less than 0.012. -patient will be monitored on telemetry. 3. Hyperglycemia without diagnosis of diabetes, present on admission, active -on initial labs the patient has an elevated serum glucose of 158. She has no previous diagnosis of diabetes. -elevation believed to be secondary to pancreatitis, ordered fingerstick glucose checks every 6 hours, coverage with low-dose correctional insulin. -will obtain hemoglobin A1c. 4. Hypertension, chronic, stable -Will continue patient's home regimen of losartan 100 mg daily, will hold hydrochlorothiazide 50 mg which she takes daily. -will follow blood pressure trends. 5. Progressive neurologic disorder, chronic, stable -per patient report condition has been improved with pyridostigmine. -patient continues to report bilateral lower extremity neuropathy and uses a cane or walker for ambulation.. -patient feels she has a baseline function in this regard. VTE prophylaxis: Enoxaparin IV fluid: Normal saline 125 cc/hour. Diet: NPO. Code status: Full code, patient designates her Abhijit to be her surrogate decision maker. The patient is admitted to the hospital due to the severity of her symptoms and to prevent further complications or adverse events. The patient is admitted observation status with expected length of stay to be less than 2 midnights. COVID-19 COVID-19 status: Negative Result date/Date tested (Pos, Neg/Pending): 07/24/20 Scores GCS Winter coma scale eye opening: Spontaneous Winter coma scale verbal response: Orientated Nancy coma scale motor response: Obey commands Nancy coma scale total score: 15
[2020-07-25] VITALS (10 sets, daily range): BP systolic 125–164; BP diastolic 58–85; PULSE 32–71; RESP 16–20; TEMP 36.4–36.9; O2SAT 96–98
[2020-07-25] MEDS: SODIUM CHLORIDE 0.9% 1,000 ML 125 ML IV (03:40)
[2020-07-25 05:32] LABS: BUN Creatinine Ratio 15.4 (6-22); Blood Urea Nitrogen 12 mg/dL (7-17); Calcium 9.2 mg/dL (8.4-10.2); Carbon Dioxide 24 mmol/L (22-32); Chloride 111 mmol/L (98-107); Estimated Glomerular Filt Rate > 60.0 mL/min (>60); Glucose 95 mg/dL (80-110); HEMOLYSIS < 15 (0-50); Potassium 3.6 mmol/L (3.4-5.1); Sodium 139 mmol/L (137-145)
[2020-07-25 07:36] LABS: Add Manual Diff / Slide Review NO; Basophils Absolute Auto 0 /uL (0-100); Basophils Percent Auto 0.8 % (0-2); Eosinophils Absolute Auto 300 /uL (0-450); Eosinophils Percent Auto 5.1 % (2-4); Hematocrit 33.2 % (36-46); Hemoglobin 10.9 g/dL (12.0-16.0); Lymphocytes Absolute Auto 1700 /uL (1100-4500); Lymphocytes Percent Auto 33.7 % (25-40); Mean Corpuscular HGB Conc 32.8 % (30-36); Mean Corpuscular Hemoglobin 28.1 PG (26-34); Mean Corpuscular Volume 85.7 fL (80-100); Monocytes Absolute Auto 500 /uL (0-900); Monocytes Percent Auto 9.7 % (3-14); Neutrophils Absolute Auto 2600 /uL (1500-7000); Neutrophils Percent Auto 50.7 % (50-75); Platelet Count 249 X10^3/uL (150-400); Red Blood Cell Count 3.88 X10^6/uL (4.0-5.2); Red Cell Distribution Width 15.4 % (11.6-14.8); White Blood Cell Count 5.1 X10^3/uL (4.5-11.0)
[2020-07-25 07:47] LABS: Hemoglobin A1C% w Est Avg Glu 5.8 % (4.0-6.0)
[2020-07-25] MEDS: PYRIDOSTIGMINE 60 MG TABLET PO (09:39)
[2020-07-25] MEDS: ENOXAPARIN 40 MG/0.4 ML SYRINGE SUBCUT (09:39)
[2020-07-25] MEDS: LOSARTAN 50 MG TABLET 100 MG PO (09:39)
[2020-07-25] MEDS: ARIPiprazole 10 MG TABLET PO (09:39)
--- NOTE | 2020-07-25 11:03 | CM.DANOTE ---
Addendum entered by KERLINE Cooper 07/25/20 15:14: ADD: Per , pt tolerated advancing diet and medically stable to d/c home today. Per RN, completed bedside d/c instructions with pt and spouse and no concerns at this time. Plan: Patient to d/c home this afternoon via spouse POV and outpt follow up with Neurologist and second opinion with [facility] Neurologist scheduled. No further SW needs at this time. BF Original Note: Patient is a 70 year old female who was admitted on 07/24/20 for SOB, Chest Pain. Pt has MCR and BX FED for insurance and her PCP is Doris EMANUEL. EMR was reviewed. Per , pt with hx of possible neurological disorder that is being worked up towards dx and has had increased dyspnea and had her 2nd COVID vaccine 2 weeks ago. Pt admitted for acute pancreatitis and NPO currently. Pt's Neurologist is Dr. Meza and [facility] [employer] is Dr. Maravilla. SW met bedside with pt and spouse and explained role and they confirm that they recently moved from a 2 story house to a one level in [place] with easier floor plan and walk in shower/tub without stairs to better accommodate her walker which has increased her ability to be more independent with ADL's. Pt's spouse is very supportive and assists pt when needed and spouse drives and runs errands/goes to the store. Pt no longer drives. Pt denies any hx of HH or SNF but states she is aware that her independence will likely begin declining and she will need more assist in the future and is looking forward to a second opinion from a Neurologist at [facility] next month towards getting a clearer diagnosis and tx plan. SW provided the Senior Resource Guidebook and discussed resources available for likely future needs and pt and spouse very appreciative and realize they need to begin planning now for the future, especially since spouse is primary CG for pt and if he gets sick or injured they would need back up. Pt's neighbor has been a PP CG and is willing to provide care to pt once needed. Pt's spouse Abhijit and their adult son Aaron Hyman (who lives in [place]) are pt's DPOA's. Plan: SW to follow closely to confirm pt safe for d/c home with spouse assist when medically stable and any further identified discharge planning needs. KERLINE Cooper Discharge Planning/Care Management CM Discharge Assessment Start: 07/25/20 10:55 Freq: Status: Active Protocol: Document 07/25/20 10:56 BF (Rec: 07/25/20 11:03 BF [id number]) Discharge Planning Assessment Assigned Educational Adviser KERLINE Chatman DPOA/Assigned Designee Name Spouse Abhijit Hyman and son Aaron Advance Directives? Yes Advance Directives on File No History Provided By Patient,Significant Other, Medical Record Has Patient been admitted in last 30 No days? Prior Living Arrangements House Household Members spouse Type of transporation used prior to Relies on Others admit Comment spouse drives Independent with ADL's Yes: mostly Is patient alert and oriented? Yes Needs Assistance With Meal Prep,Home Chores / Shopping Caregiver for Another No DME Already Rented / Owned Bath Bench,FWW / Walker,Cane Barriers to Discharge No Discharge Plan Home Whiteboard Updated in Patient Room with Yes name and ext. # of Educational Adviser Review Status In Process Please Provide Date Initial DC 07/25/20 Assessment Was Performed Next Review Type Continued Stay Review
--- NOTE | 2020-07-25 14:10 | P.DS_ITS ---
History of Present Illness History of Present Illness Date Patient Seen: 07/25/20 Chief complaint: SHORTNESS OF BREATH, CHEST PAIN Narrative: Ms. Elizabeth hernandez is a 70-year-old female with past medical history significant for small fiber polyneuropathy, cervical dystonia, atypical chest pain, dyspnea on exertion, chronic fatigue, HTN, hyperlipidemia, NSAID induced gastritis and Sjogren's who presents to the ER with complaints chest tightness and shortness of breath. The patient states that she developed an abrupt onset of tightness in her chest and right upper quadrant abdominal pain following eating at approximately 12:20 p.m. this afternoon. The patient the patient has had progressive difficulty breathing and has been evaluated and worked up for neurological disorder that is thought to possibly myasthenia gravis. The patient acknowledges exertional dyspnea and is unable to ascend a flight of stairs without stopping and resting that is not new but is improved wi th treatment with pyridostigmine. The patient describes right upper quadrant discomfort at the costal margin with point tenderness. She reports associated intermittent nausea without vomiting but denies fevers and chills, cough or wheezing, diarrhea or constipation and denies urinary symptoms. The patient does acknowledge that she had a 2nd COVID vaccination 2 weeks ago after which she did have symptoms including headache and malaise that resulted prior to today's episode. The patient uses a cane or walker for ambulation related to her neurologic disorder and polyneuropathy. Upon arrival to the ER the patient's temperature 97.8?, heart rate of 85, blood pressure 144/78, respirations 16 saturating 99% on room air. Twelve lead EKG is obtained which finds sinus rhythm with PVC biphasic P wave consistent with left atrial enlargement, no ST or T-wave changes, Q-waves inferiorly. Chest x-ray is obtained which finds no acute cardiopulmonary findings. CT of the finds normal pancreas, no suggestion of necrosis or pseudocyst, no ductal dilatation, hepatic steatosis, diverticulosis without diverticulitis. Abdominal ultrasound of the right upper quadrant identifies diffusely increased hepatic echotexture, gallbladder surgically absent without fluid collection. CBC reveals a white c ount of 7.1 with no shift, hemoglobin 11.8, hematocrit 36.0 platelets 277. Coags are all within normal limits. On chemistries are electrolytes are within normal range has a BUN of 13 and creatinine 0.95. She has a EGFR of 58.2. Her nonfasting glucose is 158. Liver functions are all within normal limits, albumin is 4.4 lipase is 3009. Total CK is 112 with CK-MB of 1.24 for an index of 1.1. Troponin is negative at less than 0.012. In the ER the patient received 1 L bolus of saline and normal saline 125 cc/hour. The patient is admitted to the hospitalist service for acute pancreatitis of unclear etiology. Neurologist: Dr. Julian Meza Medicare Contact Specialist: Dr. Art Maravilla Discharge Providers Provider Date of admission: 07/24/20 19:10 Discharge Date: 07/25/20 Primary care physician: JENAE Mark Consults: 07/24/20 19:52 Consult to Dietitian, Adult Routine Comment: Reason For Exam: Pancreatitis, hepatic steatosis Consult to Discharge Planning Routine Comment: 07/24/20 20:45 Consult to Respiratory Therapy Evaluate & Treat Comment: OSCAR on CPAP Physician Instructions: Evaluate and treat Discharge provider: Alli Cassidy DO Summary Hospital Course Discharge Diagnosis: Acute pancreatitis Atypical chest pain Hyperglycemia without diagnosis of diabetes Hypertension Suspected myasthenia gravis Hospital Course: This is a 70-year-old female with past medical history of hypertension and an atypical neurological disorder that is presumed to be myasthenia gravis who presented to the hospital with 1 day of burning chest and epigastric pain and was found to have acute pancreatitis. Presented with a soreness in her epigastric area that she described as a radiating pain through her upper abdomen. She also reported intermittent stabbing pains diffusely in her abdomen. She reported mild nausea. There was some concern for cardiovascular etiology however EKG did not reveal any acute ST/T-wave changes. Her troponin was normal. As part of her workup she had a lipase performed which was found to be significantly elevated at 3000. She had CT of her abdomen pelvis which revealed a normal pancreas without suggestion of necrosis, pseudocyst, ductal dilation, hepatic steatosis, or diverticulitis. There is no evidence of gallstone pancreatitis. Of note, the patient is status post cholecystectomy. The patient is a nondrinker. The etiology of her pancreatitis is unclear however she was admitted to the hospital and treated with high rate IV fluids. She was kept NPO for the 1st 12 hours of her admission. She reported significant improvement in her abdominal pain during admission and the next day she was able to tolerate regular foods. She was not requiring pain medications. It is felt that given her rapid recovery she would be safe for discharge home. At home she is advised to have generous fluid intake. She is also advised to return to the hospital if she has any increase in nausea, vomiting, or abdominal pain. The patient had a sudden unexpected rapid recovery. Status at Discharge Cognitive/behavioral status at discharge: oriented Functional status at discharge: independent ambulation Overall status at discharge: patient is back to baseline Time Spent with Patient Time spent: Greater than 30 minutes Exam Vital Signs (past 8 hours): - 07/25/20 08:00 07/25/20 12:00 Temperature 97.5 F L 98.2 F Pulse Rate 57 L 62 Respiratory Rate 16 16 Blood Pressure 156/85 H 164/84 H Pulse Oximetry 97 98 Oxygen Delivery Method Room Air Oxygen Flow Rate 0 Narrative Exam Narrative: Const General: cooperative Orientation: alert, awake and oriented x3 HENMT Head: normal to inspection, normocephalic and atraumatic Eyes General: appearance normal, both eyes and all related structures Pupils: PERRL EOM: EOM intact bilaterally Neck Neck: normal visual inspection and full ROM Chest Chest: normal inspection of the chest and normal palpation of entire chest wall Resp Effort & Inspection: normal respiratory effort Auscultation: no rales, no rhonchi and no wheezes Cardio Palpation: normal PMI Rate: regular rate Rhythm: regular rhythm Heart Sounds: S1 normal and S2 normal GI Inspection: normal to inspection Palpation: soft, No guarding and No tender Auscultation: normal bowel sounds Neuro General: patient alert, patient awake, patient oriented x3 and CN's II-XI intact bilaterally Motor: muscle tone normal throughout Sensory Exam: no sensory deficits noted Extrem General: normal to inspection Psych Mood: congruent mood Affect: normal affect Attitude: cooperative Thought Content: normal Objective Labs Result Diagrams: 07/25/20 04:50 07/25/20 04:50 Labs: Laboratory Results - last 24 hr 07/24/20 07/24/20 07/24/20 14:55 14:55 14:55 WBC 7.1 RBC 4.22 Hgb 11.8 L Hct 36.0 MCV 85.3 MCH 28.0 MCHC 32.9 RDW 15.5 H Plt Count 277 Neut % (Auto) 72.5 Lymph % (Auto) 18.7 L [place] % (Auto) 6.1 Eos % (Auto) 1.8 L Baso % (Auto) 0.9 Neut # (Auto) 5200 Lymph # (Auto) 1300 [place] # (Auto) 400 Eos # (Auto) 100 Baso # (Auto) 100 PT 12.2 INR 1.1 APTT 33 Sodium 136 L Potassium 3.4 Chloride 101 Carbon Dioxide 31 BUN 13 Creatinine 0.95 Estimated GFR 58.2 L BUN/Creatinine Ratio 13.7 Glucose 158 H Hemoglobin A1c Calcium 10.1 Magnesium Total Bilirubin 0.4 AST 27 ALT 23 Alkaline Phosphatase 109 Total Creatine Kinase 112 CK-MB (CK-2) 1.24 CK-MB (CK-2) Rel Index 1.1 L Troponin I < 0.012 Total Protein 7.7 Albumin 4.4 Globulin 3.3 Albumin/Globulin Ratio 1.3 Triglycerides Cholesterol LDL Cholesterol, Calc HDL Cholesterol Lipase 3009 H Nasal Screen MRSA (PCR) 07/24/20 07/24/20 07/24/20 14:55 14:55 21:50 WBC RBC Hgb Hct MCV MCH MCHC RDW Plt Count Neut % (Auto) Lymph % (Auto) [place] % (Auto) Eos % (Auto) Baso % (Auto) Neut # (Auto) Lymph # (Auto) [place] # (Auto) Eos # (Auto) Baso # (Auto) PT INR APTT Sodium Potassium Chloride Carbon Dioxide BUN Creatinine Estimated GFR BUN/Creatinine Ratio Glucose Hemoglobin A1c Calcium Magnesium 2.0 Total Bilirubin AST ALT Alkaline Phosphatase Total Creatine Kinase CK-MB (CK-2) CK-MB (CK-2) Rel Index Troponin I Total Protein Albumin Globulin Albumin/Globulin Ratio Triglycerides 215 H Cholesterol 195 LDL Cholesterol, Calc 104 H HDL Cholesterol 48 Lipase Nasal Screen MRSA (PCR) Negative for mrsa 07/25/20 07/25/20 07/25/20 04:50 04:50 04:50 WBC 5.1 RBC 3.88 L Hgb 10.9 L Hct 33.2 L MCV 85.7 MCH 28.1 MCHC 32.8 RDW 15.4 H Plt Count 249 Neut % (Auto) 50.7 D Lymph % (Auto) 33.7 [place] % (Auto) 9.7 Eos % (Auto) 5.1 H Baso % (Auto) 0.8 Neut # (Auto) 2600 Lymph # (Auto) 1700 [place] # (Auto) 500 Eos # (Auto) 300 Baso # (Auto) 0 PT INR APTT Sodium 139 Potassium 3.6 Chloride 111 H Carbon Dioxide 24 BUN 12 Creatinine 0.78 Estimated GFR > 60.0 BUN/Creatinine Ratio 15.4 Glucose 95 Hemoglobin A1c 5.8 Calcium 9.2 Magnesium Total Bilirubin AST ALT Alkaline Phosphatase Total Creatine Kinase CK-MB (CK-2) CK-MB (CK-2) Rel Index Troponin I Total Protein Albumin Globulin Albumin/Globulin Ratio Triglycerides Cholesterol LDL Cholesterol, Calc HDL Cholesterol Lipase Nasal Screen MRSA (PCR) [facility] Medical History Abdominal pain Activity intolerance Anemia Anosmia Atypical chest pain Cervical dystonia (1986) Chicken pox (1956) Cholecystectomy planned Chronic fatigue (08/07/15) Colon polyps Cough CTS (carpal tunnel syndrome) (1986) Denervation of muscle Depression (1974) Diastasis of rectus abdominis (08/07/15) Dyspnea Dyspnea Dyspnea on exertion Episodic lightheadedness Fatigue Gastritis Generalized abdominal pain (08/07/15) Headache Hyperlipidemia Hypertension Itch of skin Measles (1957) Metallic taste (10/11/15) Mumps (1958) Neoplasm of uncertain behavior of skin (10/11/15) NSAID induced gastritis Osteopenia after menopause Peripheral neuropathy (2012) Piriformis syndrome of right side Progressive neurological disorder Right hip pain Shortness of breath (08/27/15) Sjogren's syndrome (2012) Skin cancer (2015) Sleep apnea (2009) Small fiber polyneuropathy SOB (shortness of breath) (2010) Status post DANILO-BSO Visual disturbance Surgical History Anesthesia complication History of carpal tunnel repair (1989) History of cervical spinal surgery (07/2008) History of laparoscopic cholecystectomy (2006) S/P DANILO-BSO (total abdominal hysterectomy and bilateral salpingo-oophorectomy) (01/2007) Status post hernia repair (2013) Status post hernia repair (2007) Family History Brother Age: 63 Prostate cancer Heart disease Hypertension High cholesterol Heart attack Brother Age: 61 Hypertension Mental health problem Kidney transplant recipient Chronic kidney disease with end stage renal failure on dialysis Father Colon cancer Heart disease Mental health problem Heart failure Grandfather Heart disease Hypertension Brain aneurysm Mother Cancer Hypertension NHL (non-Hodgkin's lymphoma) Grandmother Stroke Sister Age: 69 Celiac disease High cholesterol Mental health problem Thyroid disorder Sister Age: 65 Psoriatic arthritis Thyroid disorder Grandmother Alzheimer's disease Grandfather Colon cancer Sister Breast cancer Sister Suicide Brother No problems noted. Sister Thyroid disorder Social History marital status: household members: spouse occupational status: previously employed Smoking Status: Never smoker alcohol intake: current substance use type: does not use Discharge Assessment & Plan Assessment and Plan Assessment: Assessment & Plan narrative: This is a 70-year-old female patient with a complex past medical history who presents with right upper quadrant abdominal pain and is found to have acute pancreatitis. 1. Acute pancreatitis CT shows normal appearing pancreas. No gallstones. She is a nondrinker.. She does meet criteria for acute pancreatitis with abdominal pain and elevated lipase. She was kept NPO and received high rate IV fluids. Her abdominal pain had the rapid recovery and the patient was trialed on regular food which he tolerated well without increase in pain. She is discharged home with instructions to return to the hospital with pain, nausea, vomiting increased. He is also instructed to have generous fluid intake at home. 2. Atypical chest pain She presented with some atypical chest pain that was most likely related to pancreatitis. Troponin was normal. EKG did not appear ischemic. 3. Hypertension, chronic, stable Continued on home meds. 4. Suspected myasthenia gravis. The patient is being followed by Neurology as an outpatient. She reports that she has had an unclassified neurologic disorder however her neurologist suspects that she has seronegative myasthenia gravis. She has been taking pyridostigmine which she reports has been improving her condition. This does not appear to be in exacerbation at this time. Code status: Full code, patient designates her Abhijit to be her surrogate decision maker. Discharge Plan Discharge Plan Patient Disposition: Home Discharge orders & Medications Prescriptions: Continued [turmeric] 1,000 mg PO DAILY Qty: 0 RF: 0 aspirin 81 MG tablet,delayed release (DR/EC) 81 mg PO QPM Qty: 0 RF: 0 miscellaneous medical supply Misc 1 each .ROUTE .COMPLEX Qty: 1 RF: 0 losartan 100 mg tablet 100 mg PO DAILY Qty: 90 RF: 3 hydrochlorothiazide 50 mg tablet 50 mg PO DAILY Qty: 90 RF: 3 aripiprazole 20 mg tablet See Rx Instructions .ROUTE .COMPLEX Qty: 45 RF: 2 alpha lipoic acid 600 mg 600 mg PO .QDAY RF: 0 Psyllium fiber 12 mg 12 mg PO .QDAY RF: 0 [place] 3 690 mg 690 mg PO .QDAY RF: 0 pyridostigmine bromide 60 mg tablet 60 mg PO TID RF: 0 Follow up/Referrals: Doris Schreiber ARNP [Primary Care Provider] - Visit Report/Discharge Packet Instructions: DI for Pancreatitis Discharge Data Primary Care Provider: Doris Schreiber
--- NOTE | 2020-07-25 14:47 | PC.NURSE ---
Pt's diet was advanced to general. Pt tolerated well. Denies pain. Goal is to go home. Hospitalist rounded and assessed pt. Orders received to dc home. Provided dc education both written and verbal. Reviewed medication reg. Pt and spouse verbalize understanding. Removed PIV with cath tip intact. Removed tele. Pt dressed herself and transferred independently to w/c. Pt was escorted to [facility] by RN at 1440 for dc home. Pt had all belongings.
== END 2020-07-25 13:40 | disposition home or self-care (01) | DRG 440 ==
LOC: ED 14:42 → ICU 19:49 → AC 07-25 12:44
PROVIDERS: Nurse Practitioner Adult Health; Admitting Provider Hospitalist; Emergency Provider Emergency Medicine; Family Provider Nurse Practitioner; PCP Nurse Practitioner; Referring Provider Emergency Medicine; Visit Provider Hospitalist
DX: K85.90 Acute pancreatitis without necrosis or infection, unspecified (principal); R07.89 Other chest pain; G70.00 Myasthenia gravis without (acute) exacerbation; G62.89 Other specified polyneuropathies; R73.9 Hyperglycemia, unspecified; I10 Essential (primary) hypertension; Z20.822 Contact with and (suspected) exposure to COVID-19
CPT/HCPCS: 36415; 71045; 74177; 76705; 80048; 80053; 80061; 82550; 82553; 82962; 83036; 83690; 83735; 84484; 85025; 85610; 85730; 87797; 93005; 96360; 97110; 97112; 99283; 99284; C9113; J1650

== ENCOUNTER 2020-08-06 11:24 | Emergency (ER) | payer MEDICARE, BC, SELFPAY ==
[2020-07-24 19:27] VITALS: BMI 33.3
[2020-08-06] VITALS (10 sets, daily range): BP systolic 129–172; BP diastolic 69–87; PULSE 52–63; RESP 16; O2SAT 95–100; BMI 33.5
--- NOTE | 2020-08-06 11:39 | ED_ITS ---
HPI - Abdominal Pain General Chief Complaint: Abdominal Pain Stated Complaint: acute pancreatitis symptoms returning, SOB Time Seen by Provider: 08/06/20 11:26 Source: patient and family Mode of arrival: Ambulatory Limitations: no limitations History of Present Illness HPI narrative: 70-year-old female nonsmoker with history of pancreatitis presents with her in the chief complaint of episodes of epigastric and right upper quadrant pain that seemed to be coming and going for the past few days and without any obvious provocation, palliation or radiation. She states it feels vaguely similar to prior episodes of pancreatitis but not a severe and more intermittent. She does state that it feels like prior episodes of diverticulitis. She has had multiple episodes of loose stools. She denies fever or chills. Related Data Home Medications Medication Instructions Recorded Confirmed [turmeric] 1,000 mg PO DAILY #0 05/17/16 07/27/20 aspirin 81 mg PO QPM #0 01/25/17 07/27/20 Eaton 3 690 mg PO .QDAY 09/16/19 07/27/20 Psyllium fiber 12 mg PO .QDAY 09/16/19 07/27/20 alpha lipoic acid 600 mg PO .QDAY 09/16/19 07/27/20 pyridostigmine bromide 60 mg PO TID 07/24/20 07/27/20 Previous Rx's Medication Instructions Recorded miscellaneous medical supply 1 each .ROUTE .COMPLEX #1 each 08/23/19 hydrochlorothiazide 50 mg tablet 50 mg PO DAILY #90 tab 11/23/19 losartan 100 mg tablet 100 mg PO DAILY #90 tab 11/23/19 aripiprazole 20 mg tablet See Rx Instructions .ROUTE 02/17/20 .COMPLEX #45 tab promethazine 12.5 mg tablet 12.5 mg PO Q6H PRN #20 tab 07/27/20 ciprofloxacin HCl 500 mg PO BID #14 tab 08/06/20 hydrocodone-acetaminophen 1 tab PO Q4-6H PRN #10 tab 08/06/20 metronidazole 500 mg PO Q8H 7 Days #21 tab 08/06/20 ondansetron HCl [Zofran] 4 mg PO Q8H PRN #10 tab 08/06/20 Allergies Allergy/AdvReac Type Severity Reaction Status Date / Time cimetidine [From TAGAMET] Allergy Mild hallucinati Verified 07/24/20 14:29 ons codeine [CODEINE] Allergy Mild hallucinati Verified 07/24/20 14:29 ons lisinopril [LISINOPRIL] Allergy Mild cough/GI Verified 07/24/20 14:29 issues ranitidine [From ZANTAC] Allergy Mild hallucinati Verified 07/24/20 14:29 ons Review of Systems Constitutional Constitutional: Denies chills, Denies fatigue, Denies fever(s), Denies frequent falls, Denies lethargy and Denies weakness Eyes Eyes: Denies change in vision, Denies eye discharge, Denies irritation and Denies loss of vision ENT Ears, Nose, Mouth, and Throat: Denies change in voice, Denies dizziness, Denies neck pain, Denies sore throat and Denies throat swelling Cardiovascular Cardiovascular: Denies chest pain, Denies irregular heart rhythm, Denies lightheadedness, Denies palpitations, Denies dyspnea, Denies dyspnea on exertion and Denies orthopnea Respiratory Respiratory: Denies cough, Denies dyspnea, Denies dyspnea on exertion and Denies wheezing Gastrointestinal Gastrointestinal: Reports abdominal pain, Denies change in bowel habits, Reports diarrhea, Denies nausea and Denies vomiting Musculoskeletal Musculoskeletal: Denies neck pain and Denies numbness Integumentary/Breasts Skin/Breast: Denies pruritus, Denies erythema, Denies rash and Denies wounds Neurologic Neurologic: Denies behavioral changes, Denies confusion, Denies dizziness, Denies frequent falls, Denies loss of vision, Denies numbness and Denies weakness Psychiatric Psychiatric: Denies anxiety, Denies behavioral changes, Denies confusion, Denies depression, Denies homicidal ideation and Denies suicidal ideation Endocrine Endocrine: Denies fatigue, Denies flushing and Denies palpitations Hematologic/Lymphatic Hematologic/Lymphatic: Denies easy bruising Allergic/Immunologic Allergic/Immunologic: Denies urticaria, Denies throat swelling and Denies wheezing Patient History Medical History Abdominal pain Activity intolerance Anemia Anosmia Atypical chest pain Cervical dystonia (1986) Chicken pox (1956) Cholecystectomy planned Chronic fatigue (08/07/15) Colon polyps Cough CTS (carpal tunnel syndrome) (1986) Denervation of muscle Depression (1974) Diastasis of rectus abdominis (08/07/15) Dyspnea Dyspnea Dyspnea on exertion Episodic lightheadedness Fatigue Gastritis Generalized abdominal pain (08/07/15) Headache Hyperlipidemia Hypertension Itch of skin Measles (1957) Metallic taste (10/11/15) Mumps (1958) Neoplasm of uncertain behavior of skin (10/11/15) NSAID induced gastritis Osteopenia after menopause Peripheral neuropathy (2012) Piriformis syndrome of right side Progressive neurological disorder Right hip pain Shortness of breath (08/27/15) Sjogren's syndrome (2012) Skin cancer (2015) Sleep apnea (2009) Small fiber polyneuropathy SOB (shortness of breath) (2010) Status post DANILO-BSO Visual disturbance Surgical History Anesthesia complication History of carpal tunnel repair (1989) History of cervical spinal surgery (07/2008) History of laparoscopic cholecystectomy (2006) S/P DANILO-BSO (total abdominal hysterectomy and bilateral salpingo-oophorectomy) (01/2007) Status post hernia repair (2013) Status post hernia repair (2007) Family History Brother Age: 63 Prostate cancer Heart disease Hypertension High cholesterol Heart attack Brother Age: 61 Hypertension Mental health problem Kidney transplant recipient Chronic kidney disease with end stage renal failure on dialysis Father Colon cancer Heart disease Mental health problem Heart failure Grandfather Heart disease Hypertension Brain aneurysm Mother Cancer Hypertension NHL (non-Hodgkin's lymphoma) Grandmother Stroke Sister Age: 69 Celiac disease High cholesterol Mental health problem Thyroid disorder Sister Age: 65 Psoriatic arthritis Thyroid disorder Grandmother Alzheimer's disease Grandfather Colon cancer Sister Breast cancer Sister Suicide Brother No problems noted. Sister Thyroid disorder Social History marital status: household members: spouse occupational status: previously employed Smoking Status: Never smoker alcohol intake: current substance use type: does not use Smoking Status: Never smoker alcohol intake frequency: holidays/special occasions only Substance Use Type: does not use Exam Narrative Exam Narrative: GENERAL: [70] year old patient appears stated age. Well- nourished, well-developed patient, in mild distress. HEAD: Atraumatic. Normocephalic. EYES: Pupils equal round and reactive. Extraocular motions intact. No scleral icterus. No injection or drainage. ENT: Nose without bleeding, purulent drainage. Throat without erythema, tonsillar hypertrophy or exudate. Airway patent. NECK: Trachea midline. Non tender CARDIOVASCULAR: Regular rate and rhythm without murmurs, gallops, or rubs. RESPIRATORY: Clear to auscultation. Breath sounds equal bilaterally. No wheezes, rales, or rhonchi. GASTROINTESTINAL: Abdomen soft, mild tenderness in right side of abdomen, nondistended. Bowel sounds present in all 4 quadrants EXTREMITIES: No edema or joint tenderness. BACK: Nontender without deformity or crepitance. No flank tenderness. NEURO: AOx3. SKIN: No rash or erythema of visible areas Initial Vital Signs Initial Vital Signs: Vital Signs Pulse Rate 61 08/06/20 11:26 Respiratory Rate 16 08/06/20 11:26 Blood Pressure 172/85 H 08/06/20 11:26 Pulse Oximetry 100 08/06/20 11:26 Course Orders Ordered: Discontinued Medications Sodium Chloride (Normal Saline 0.9%) 1,000 mls @ 1,000 mls/hr IV BOLUS ONE Stop: 08/06/20 12:38 Last Infusion: 08/06/20 15:01 Dose: 0 mls/hr Documented by: Admin: 08/06/20 12:01 Dose: 1,000 mls/hr Documented by: LALI Pantoprazole Sodium (Pantoprazole 40 Mg Vial) 40 mg IV NOW ONE Stop: 08/06/20 11:40 Last Admin: 08/06/20 12:02 Dose: 40 mg Documented by: LALI Vital Signs Vital signs: Vital Signs - 8 hr 08/06/20 11:26 08/06/20 11:46 08/06/20 12:00 Pulse Rate 61 61 59 L Respiratory Rate 16 Blood Pressure 172/85 H 165/87 H Pulse Oximetry 100 96 97 08/06/20 12:31 08/06/20 13:00 08/06/20 13:01 Pulse Rate 54 L 55 L 56 L Respiratory Rate Blood Pressure 165/77 H 153/77 H Pulse Oximetry 100 99 100 08/06/20 13:34 08/06/20 14:06 08/06/20 14:23 Pulse Rate 55 L 63 62 Respiratory Rate Blood Pressure 151/69 H 154/75 H Pulse Oximetry 95 96 98 03/08/21 14:30 Pulse Rate 52 L Respiratory Rate Blood Pressure 129/70 Pulse Oximetry 98 MDM - Abdominal Pain Lab Data Result diagrams: 08/06/20 11:40 08/06/20 11:40 Labs: Lab Results 08/06/20 08/06/20 08/06/20 Range/Units 11:40 11:40 11:40 WBC 5.7 (4.5-11.0) X10^3/uL RBC 4.20 (4.0-5.2) X10^6/uL Hgb 11.9 L (12.0-16.0) g/dL Hct 35.9 L (36-46) % MCV 85.3 (80-100) fL MCH 28.2 (26-34) PG MCHC 33.1 (30-36) % RDW 15.1 H (11.6-14.8) % Plt Count 268 (150-400) X10^3/uL Neut % (Auto) 61.2 (50-75) % Lymph % (Auto) 28.8 (25-40) % [place] % (Auto) 7.1 (3-14) % Eos % (Auto) 2.6 (2-4) % Baso % (Auto) 0.3 (0-2) % Neut # (Auto) 3500 (0336-0365) /uL Lymph # (Auto) 1700 (2661-9543) /uL [place] # (Auto) 400 (0-900) /uL Eos # (Auto) 200 (0-450) /uL Baso # (Auto) 0 (0-100) /uL D-Dimer 448 H (<230) ng/mL Sodium 132 L (137-145) mmol/L Potassium 3.6 (3.4-5.1) mmol/L Chloride 100 (98-107) mmol/L Carbon Dioxide 26 (22-32) mmol/L BUN 14 (7-17) mg/dL Creatinine 0.80 (0.52-1.04) mg/dL Estimated GFR > 60.0 (>60) mL/min BUN/Creatinine Ratio 17.5 (6-22) Glucose 104 (80-110) mg/dL Calcium 10.0 (8.4-10.2) mg/dL Total Bilirubin 0.5 (0.2-1.3) mg/dL AST 25 (14-36) IU/L ALT 18 (<35) IU/L Alkaline Phosphatase 119 (38-126) U/L Total Creatine Kinase 108 (30-135) U/L CK-MB (CK-2) 1.94 (<2.37) ng/mL CK-MB (CK-2) Rel Index 1.8 (1.5-5.0) % Troponin I < 0.012 (0.01-0.034) ng/mL NT-Pro-B Natriuret Pep 27 (<125) pg/mL Total Protein 7.7 (6.3-8.2) g/dL Albumin 4.5 (3.5-5.0) g/dL Globulin 3.2 (1.7-4.1) g/dL Albumin/Globulin Ratio 1.4 (1.0-2.8) Lipase 179 (23-300) U/L Point of care testing: Urine Dip Bedside Urine Glucose Negative Bedside Urine Bilirubin - Negative Bedside Urine Ketone - Negative Urine Specific [place] 1.015 Bedside Urine Occult Blood - Negative Bedside Urine pH 6.5 Bedside Urine Protein - Negative Bedside Urine Urobilinogen - Negative Bedside Urine Nitrite - Negative Bedside Urine Leukocytes - Negative Esterase Imaging Data Abdominal x-ray: Radiologist's Impression: [address] [id number] ReportSigned Patient: [facility] Maravilla [facility]#: [id number]: 1950Acct:[id number]/Sex: 70 / FDate of Service: 08/06/20Loc: EDAccession Number: [id number] Procedure: XR acute abdomen series Ordering Provider: Declan Bond D.O. PROCEDURE: XR ACUTE ABDOMEN SERIES INDICATIONS: Abdominal pain TECHNIQUE: One view chest and two views of the abdomen were acquired. COMPARISON: None. FINDINGS: Surgical changes and devices: Surgical clips are seen in gallbladder fossa.. Chest: Lungs are clear. Heart size is normal. No pleural effusions. No pneumoperitoneum. Abdomen: Bowel gas pattern is nonobstructive. Mild to moderate fecal stasis throughout the colon is seen.. Small calcification is seen projecting in the region of upper pole left kidney. Visualized solid organ contours appear normal. Bones: No suspicious bony lesions. IMPRESSION: 1. Constipation. No evidence of bowel obstruction or gross free air. 2. Suggestion of left-sided renal stone as above. Dictated by: Javon Wallace M.D. on 08/06/2020 at 14:14 Approved by: Javon Wallace M.D. on 08/06/2020 at 14:16 US - abdomen: Radiologist's Impression: [address] [id number] ReportSigned Patient: Elizabeth Maravilla MMR#: [id number]: 1950Acct:[id number]/Sex: 70 / FDate of Service: 08/06/20Loc: EDAccession Number: [id number] Procedure: US abdomen limited Ordering Provider: Declan Bond D.O. PROCEDURE: US ABDOMEN LIMITED INDICATIONS: SEVERE EPIGASTRIC AND RIGHT UPPER QUADRANT PAIN TECHNIQUE: Real-time focused scanning was performed of the abdomen, with image documentation. COMPARISON: [facility], , US ABDOMEN LIMITED, 07/24/2020, 16:59. FINDINGS: Study was targeted to the right upper quadrant at clinician request. The liver appears normal, the main portal vein is normal in caliber. Prior cholecystectomy. The common bile duct is unusually prominent after cholecystectomy at 10 mm. The pancreas is relatively heterogeneous and the quality of visualization is limited by bowel gas. IMPRESSION: Please correlate for whether common bile duct calculus may be present, versus pancreatitis. Follow-up by MR cholangiogram may be warranted at this time. Prior cholecystectomy. No hepatic lesion found. Dictated by: Salazar Hargrove M.D. on 08/06/2020 at 12:39 Approved by: Salazar Hargrove M.D. on 08/06/2020 at 12:40 MDM Narrative Medical decision making narrative: Patient returns with upper abdominal pain. More intermittent and moving and location when compared to prior episode of panc reatitis. Labs are very reassuring. Pain well controlled, patient tolerating orals. Patient does have a history of right-sided diverticulitis. We did discuss treating with antibiotics and pain control, encouraging clear liquids and close follow-up. Pancreatitis considered but thought unlikely given lack of classic presenting symptoms, or abnormalities on labs. Gallbladder ultrasound did note a slightly dilated common bile duct and choledocholithiasis considered but thought unlikely given lack of lab abnormalities. Return precautions given and questions answered to her apparent satisfaction Discharge Plan Departure Patient Disposition: Home Clinical Impression: Abdominal pain Qualifiers: Abdominal location: right upper quadrant Qualified Code(s): R10.11 - Right upper quadrant pain Instructions: Diverticulitis Activity Restrictions/Additional Instructions: *You have been diagnosed with [right-sided abdominal pain, no evidence of liver or pancreas abnormality. Given your history this could certainly be a r ecurrence of diverticulitis.] *What to do: *Take medications as directed: Prescriptions sent to your pharmacy *Follow up with your primary care provider in 2-3 days, call for an appointment. Let them know you were seen in the Emergency Department and that we ask that you be seen in follow up *Return to ER if you should have any new, worsening or concerning symptoms, such as [increasing pain, persistent vomiting, fever greater than 101 F, shaking chills *Please consider a clear liquid diet for the next 24-48 hours and then advance to BRAT diet (Banans, Rice, Apples [place], etc) ] Prescriptions: New ciprofloxacin HCl 500 mg tablet 500 mg PO BID Qty: 14 RF: 0 metronidazole 500 mg tablet 500 mg PO Q8H 7 Days Qty: 21 RF: 0 ondansetron HCl [Zofran] 4 mg tablet 4 mg PO Q8H PRN (Reason: nausea and vomiting) Qty: 10 RF: 0 hydrocodone-acetaminophen 5-325 mg tablet 1 tab PO Q4-6H PRN (Reason: pain) Qty: 10 RF: 0 No Action [turmeric] 1,000 mg PO DAILY Qty: 0 RF: 0 aspirin 81 MG tablet,delayed release (DR/EC) 81 mg PO QPM Qty: 0 RF: 0 miscellaneous medical supply [facility] 1 each .ROUTE .COMPLEX Qty: 1 RF: 0 losartan 100 mg tablet 100 mg PO DAILY Qty: 90 RF: 3 hydrochlorothiazide 50 mg tablet 50 mg PO DAILY Qty: 90 RF: 3 aripiprazole 20 mg tablet See Rx Instructions .ROUTE .COMPLEX Qty: 45 RF: 2 promethazine 12.5 mg tablet 12.5 mg PO Q6H PRN (Reason: nausea) Qty: 20 RF: 2 alpha lipoic acid 600 mg 600 mg PO .QDAY RF: 0 Psyllium fiber 12 mg 12 mg PO .QDAY RF: 0 Eaton 3 690 mg 690 mg PO .QDAY RF: 0 pyridostigmine bromide 60 mg tablet 60 mg PO TID RF: 0 Referrals: Doris Schreiber ARNP [Primary Care Provider] -
[2020-08-06] MEDS: SODIUM CHLORIDE 0.9% 1,000 ML 1000 ML IV (12:01)
[2020-08-06] MEDS: PANTOPRAZOLE 40 MG VIAL IV (12:02)
--- NOTE | 2020-08-06 12:07 | DI.US.S_ITS ---
PROCEDURE: US ABDOMEN LIMITED INDICATIONS: SEVERE EPIGASTRIC AND RIGHT UPPER QUADRANT PAIN TECHNIQUE: Real-time focused scanning was performed of the abdomen, with image documentation. COMPARISON: [facility], , US ABDOMEN LIMITED, 07/24/2020, 16:59. FINDINGS: Study was targeted to the right upper quadrant at clinician request. The liver appears normal, the main portal vein is normal in caliber. Prior cholecystectomy. The common bile duct is unusually prominent after cholecystectomy at 10 mm. The pancreas is relatively heterogeneous and the quality of visualization is limited by bowel gas. IMPRESSION: Please correlate for whether common bile duct calculus may be present, versus pancreatitis. Follow-up by MR cholangiogram may be warranted at this time. Prior cholecystectomy. No hepatic lesion found. Dictated by: Salazar Hargrove M.D. on 08/06/2020 at 12:39 Approved by: Salazar Hargrove M.D. on 08/06/2020 at 12:40
[2020-08-06 12:11] LABS: Alanine Aminotransferase 18 IU/L (<35); Albumin 4.5 g/dL (3.5-5.0); Albumin Globulin Ratio 1.4 (1.0-2.8); Alkaline Phosphatase 119 U/L (38-126); Aspartate Aminotransferase 25 IU/L (14-36); BUN Creatinine Ratio 17.5 (6-22); Bilirubin Total 0.5 mg/dL (0.2-1.3); Blood Urea Nitrogen 14 mg/dL (7-17); Carbon Dioxide 26 mmol/L (22-32); Chloride 100 mmol/L (98-107); Creatine Kinase 108 U/L (30-135); D Dimer 448 ng/mL (<230); Estimated Glomerular Filt Rate > 60.0 mL/min (>60); Globulin 3.2 g/dL (1.7-4.1); Glucose 104 mg/dL (80-110); HEMOLYSIS < 15 (0-50); Lipase 179 U/L (23-300); Potassium 3.6 mmol/L (3.4-5.1); Sodium 132 mmol/L (137-145); Total Protein 7.7 g/dL (6.3-8.2)
[2020-08-06 12:12] LABS: Add Manual Diff / Slide Review NO; Basophils Absolute Auto 0 /uL (0-100); Basophils Percent Auto 0.3 % (0-2); Eosinophils Absolute Auto 200 /uL (0-450); Eosinophils Percent Auto 2.6 % (2-4); Hematocrit 35.9 % (36-46); Hemoglobin 11.9 g/dL (12.0-16.0); Lymphocytes Absolute Auto 1700 /uL (1100-4500); Lymphocytes Percent Auto 28.8 % (25-40); Mean Corpuscular HGB Conc 33.1 % (30-36); Mean Corpuscular Hemoglobin 28.2 PG (26-34); Mean Corpuscular Volume 85.3 fL (80-100); Monocytes Absolute Auto 400 /uL (0-900); Monocytes Percent Auto 7.1 % (3-14); Neutrophils Absolute Auto 3500 /uL (1500-7000); Neutrophils Percent Auto 61.2 % (50-75); Platelet Count 268 X10^3/uL (150-400); Red Cell Distribution Width 15.1 % (11.6-14.8); White Blood Cell Count 5.7 X10^3/uL (4.5-11.0)
[2020-08-06 12:22] LABS: NT-proBNP (BNP-Adult 18+) 27 pg/mL (<125); Troponin I < 0.012 ng/mL (0.01-0.034)
[2020-08-06 12:26] LABS: CKMB % Relative Index 1.8 % (1.5-5.0); Creatine Kinase MB 1.94 ng/mL (<2.37)
--- NOTE | 2020-08-06 13:47 | DI.RAD.S_ITS ---
PROCEDURE: XR ACUTE ABDOMEN SERIES INDICATIONS: Abdominal pain TECHNIQUE: One view chest and two views of the abdomen were acquired. COMPARISON: None. FINDINGS: Surgical changes and devices: Surgical clips are seen in gallbladder fossa.. Chest: Lungs are clear. Heart size is normal. No pleural effusions. No pneumoperitoneum. Abdomen: Bowel gas pattern is nonobstructive. Mild to moderate fecal stasis throughout the colon is seen.. Small calcification is seen projecting in the region of upper pole left kidney. Visualized solid organ contours appear normal. Bones: No suspicious bony lesions. IMPRESSION: 1. Constipation. No evidence of bowel obstruction or gross free air. 2. Suggestion of left-sided renal stone as above. Dictated by: Javon Wallace M.D. on 08/06/2020 at 14:14 Approved by: Javon Wallace M.D. on 08/06/2020 at 14:16
== END 2020-08-06 15:18 | disposition home or self-care (01) ==
PROVIDERS: Emergency Provider Emergency Medicine; Family Provider Nurse Practitioner; PCP Nurse Practitioner
DX: R10.11 Right upper quadrant pain (principal); R19.7 Diarrhea, unspecified
CPT/HCPCS: 36415; 74022; 76705; 80053; 81003; 82550; 82553; 83690; 83880; 84484; 85025; 85379; 93005; 96361; 96374; 99284; C9113

== ENCOUNTER 2020-08-21 13:07 | Emergency (ER) | payer MEDICARE, BC, SELFPAY ==
[2020-07-24 19:27] VITALS: BMI 33.3
[2020-08-21] VITALS (11 sets, daily range): BP systolic 148–174; BP diastolic 70–75; PULSE 53–69; RESP 13–24; TEMP 36.5–36.8; O2SAT 96–100; BMI 33.1
[2020-08-21 14:00] LABS: Add Manual Diff / Slide Review NO; Basophils Absolute Auto 100 /uL (0-100); Basophils Percent Auto 1.1 % (0-2); Eosinophils Absolute Auto 200 /uL (0-450); Eosinophils Percent Auto 2.8 % (2-4); Hematocrit 34.9 % (36-46); Hemoglobin 11.4 g/dL (12.0-16.0); Lymphocytes Absolute Auto 1300 /uL (1100-4500); Lymphocytes Percent Auto 22.4 % (25-40); Mean Corpuscular HGB Conc 32.6 % (30-36); Mean Corpuscular Hemoglobin 27.7 PG (26-34); Mean Corpuscular Volume 84.9 fL (80-100); Monocytes Absolute Auto 300 /uL (0-900); Monocytes Percent Auto 5.8 % (3-14); Neutrophils Absolute Auto 4000 /uL (1500-7000); Neutrophils Percent Auto 67.9 % (50-75); Platelet Count 245 X10^3/uL (150-400); Red Blood Cell Count 4.11 X10^6/uL (4.0-5.2); Red Cell Distribution Width 15.2 % (11.6-14.8)
[2020-08-21 14:13] LABS: INR 1.1 (0.9-1.3); Prothrombin Time 12.4 SECONDS (10.1-12.7)
[2020-08-21 14:15] LABS: PTT Partial Thromboplastin Tim 35 SECONDS (26.4-36.2)
[2020-08-21 14:35] LABS: Alanine Aminotransferase 26 IU/L (<35); Albumin 4.4 g/dL (3.5-5.0); Albumin Globulin Ratio 1.5 (1.0-2.8); Alkaline Phosphatase 96 U/L (38-126); Aspartate Aminotransferase 27 IU/L (14-36); BUN Creatinine Ratio 23.3 (6-22); Bilirubin Total 0.3 mg/dL (0.2-1.3); Blood Urea Nitrogen 17 mg/dL (7-17); Calcium 9.8 mg/dL (8.4-10.2); Carbon Dioxide 24 mmol/L (22-32); Chloride 104 mmol/L (98-107); Estimated Glomerular Filt Rate > 60.0 mL/min (>60); Globulin 2.9 g/dL (1.7-4.1); Glucose 96 mg/dL (80-110); HEMOLYSIS < 15 (0-50); Lipase 228 U/L (23-300); Potassium 3.6 mmol/L (3.4-5.1); Sodium 135 mmol/L (137-145); Total Protein 7.3 g/dL (6.3-8.2)
[2020-08-21] MEDS: ONDANSETRON 4 MG/2 ML INJ IV (14:41)
[2020-08-21] MEDS: SODIUM CHLORIDE 0.9% 1,000 ML 1000 ML IV (14:42)
--- NOTE | 2020-08-21 14:54 | ED_ITS ---
HPI - Abdominal Pain <Yina Shen, MICROSCOPIST-BC - Last Filed: 08/21/20 18:47> General Chief Complaint: Abdominal Pain Stated Complaint: abdominal pain since 3am, nausea, GI referred Time Seen by Provider: 08/21/20 13:44 Source: patient Mode of arrival: Ambulatory Limitations: no limitations History of Present Illness HPI narrative: The patient is a 7-year-old female nonsmoker with history of d iverticulitis, pancreatitis, and a neurological disorder being worked up for myasthenia gravis presents with a chief complaint of right-sided abdominal pain since 3:00 a.m. in the morning. She was treated for diverticulitis earlier this month, was placed on metronidazole and ciprofloxacin. She stop taking the ciprofloxacin because she read it can make myasthenia gravis worse. She states that she woke up with pain right lower quadrant extending up to right middle abdomen and around to her back. She denies any dysuria urgency or frequency. She states that she spoke with her GI physician at [facility], who referred her to the emergency department for more rapid workup as she was recently treated for diverticulitis and there is concerned about an abscess or perforation. She has not taken anything to feel better. She does feel nauseous, has no vomiting. She notes multiple loose stools, particularly since she was admitted for pancreatitis. She presents with her .. Related Data Home Medications Medication Instructions Recorded Confirmed [turmeric] 1,000 mg PO DAILY #0 05/17/16 08/09/20 aspirin 81 mg PO QPM #0 01/25/17 08/09/20 Majestic 3 690 mg PO .QDAY 09/16/19 08/09/20 Psyllium fiber 12 mg PO .QDAY 09/16/19 08/09/20 alpha lipoic acid 600 mg PO .QDAY 09/16/19 08/09/20 pyridostigmine bromide 60 mg tablet 60 mg PO 6XD tab 08/09/20 08/09/20 Previous Rx's Medication Instructions Recorded miscellaneous medical supply 1 each .ROUTE .COMPLEX #1 each 08/23/19 hydrochlorothiazide 50 mg tablet 50 mg PO DAILY #90 tab 11/23/19 losartan 100 mg tablet 100 mg PO DAILY #90 tab 11/23/19 aripiprazole 20 mg tablet See Rx Instructions .ROUTE 02/17/20 .COMPLEX #45 tab promethazine 12.5 mg tablet 12.5 mg PO Q6H PRN #20 tab 07/27/20 hydrocodone-acetaminophen 1 tab PO Q4-6H PRN #10 tab 08/06/20 ondansetron HCl [Zofran] 4 mg PO Q8H PRN #10 tab 08/06/20 ondansetron 4 mg PO Q6H PRN #14 tab 08/21/20 Allergies Allergy/AdvReac Type Severity Reaction Status Date / Time cimetidine [From TAGAMET] Allergy Mild hallucinati Verified 08/21/20 13:13 ons codeine [CODEINE] Allergy Mild hallucinati Verified 08/21/20 13:13 ons lisinopril [LISINOPRIL] Allergy Mild cough/GI Verified 08/21/20 13:13 issues ranitidine [From ZANTAC] Allergy Mild hallucinati Verified 08/21/20 13:13 ons Review of Systems <WILMER Gilbert - Last Filed: 08/21/20 18:47> Review of Systems Narrative: GENERAL: Denies chills, fatigue, malaise, fever, sweats. HEENT: Denies sinus pain, ear pain, sore throat, difficulty swallowing, dizziness. RESPIRATORY: Denies dyspnea, cough, wheezing, hemoptysis, sputum. CARDIOVASCULAR: Denies chest pain, palpitations, orthopnea, edema, GASTROINTESTINAL: See HPI : Denies dysuria, frequency, incontinence, hematuria, urinary retention. MUSCULOSKELETAL: denies weakness, joint pain, or bony pain SKIN: Denies rash, skin lesions, or other NEUROLOGIC: Denies weakness, headache, numbness, change in speech, confusion, seizures, incoordination. PSYCHIATRIC: No concerning psychosocial issues. 12 point review of systems is negative except for those stated above Patient History <WILMER Gilbert - Last Filed: 08/21/20 18:47> Medical History Abdominal pain Activity intolerance Acute pancreatitis Anemia Anosmia Atypical chest pain Cervical dystonia (1986) Chicken pox (1956) Cholecystectomy planned Chronic fatigue (08/07/15) Colon polyps Cough CTS (carpal tunnel syndrome) (1986) Denervation of muscle Depression (1974) Diastasis of rectus abdominis (08/07/15) Diverticulitis Dyspnea Dyspnea Dyspnea on exertion Episodic lightheadedness Fatigue Gastritis Generalized abdominal pain (08/07/15) Headache Hyperlipidemia Hypertension Itch of skin Measles (1957) Metallic taste (10/11/15) Mumps (1958) Neoplasm of uncertain behavior of skin (10/11/15) NSAID induced gastritis Osteopenia after menopause Peripheral neuropathy (2012) Piriformis syndrome of right side Progressive neurological disorder Right hip pain Shortness of breath (08/27/15) Sjogren's syndrome (2012) Skin cancer (2015) Sleep apnea (2009) Small fiber polyneuropathy SOB (shortness of breath) (2010) Status post DANILO-BSO Visual disturbance Surgical History Anesthesia complication History of carpal tunnel repair (1989) History of cervical spinal surgery (07/2008) History of laparoscopic cholecystectomy (2006) S/P DANILO-BSO (total abdominal hysterectomy and bilateral salpingo-oophorectomy) (01/2007) Status post hernia repair (2013) Status post hernia repair (2007) Family History Brother Age: 63 Prostate cancer Heart disease Hypertension High cholesterol Heart attack Brother Age: 61 Hypertension Mental health problem Kidney transplant recipient Chronic kidney disease with end stage renal failure on dialysis Father Colon cancer Heart disease Mental health problem Heart failure Grandfather Heart disease Hypertension Brain aneurysm Mother Cancer Hypertension NHL (non-Hodgkin's lymphoma) Grandmother Stroke Sister Age: 69 Celiac disease High cholesterol Mental health problem Thyroid disorder Sister Age: 65 Psoriatic arthritis Thyroid disorder Grandmother Alzheimer's disease Grandfather Colon cancer Sister Breast cancer Sister Suicide Brother No problems noted. Sister Thyroid disorder Social History marital status: household members: spouse occupational status: previously employed Smoking Status: Never smoker alcohol intake: current substance use type: does not use Smoking Status: Never smoker alcohol intake frequency: holidays/special occasions only Substance Use Type: does not use Exam <WILMER Gilbert - Last Filed: 08/21/20 18:47> Narrative Exam Narrative: GENERAL: This is a well-nourished, well-developed patient, in no acute HEAD: Atraumatic. Normocephalic. No temporal or scalp tenderness. EYES: Pupils equal round and reactive. Extraocular motions intact. No scleral icterus. No injection or drainage. ENT: Nose without bleeding, purulent drainage or septal hematoma. Wearing a mask Airway patent. NECK: Trachea midline. No JVD or lymphadenopathy. Supple, nontender, no meningeal signs. CARDIOVASCULAR: Regular rate and rhythm RESPIRATORY: Clear to auscultation. Breath sounds equal bilaterally. No wheezes, rales, or rhonchi. No cough. No increased respiratory effort. No accessory muscle use. GASTROINTESTINAL: Abdomen soft, diffuse tender right lower quadrant to mid abdomen, nondistended. No hepato-splenomegaly, or palpable masses. No guarding. Active bowel sounds all 4 quadrants EXTREMITIES: No clubbing, cyanosis, or edema. No joint tenderness, effusion, or edema noted. BACK: Nontender without deformity or crepitance. No flank tenderness. NEURO: AOx3. SKIN: No rash or erythema on visible skin Initial Vital Signs Initial Vital Signs: Vital Signs Temperature 98.2 F 08/21/20 13:11 Pulse Rate 64 08/21/20 13:11 Respiratory Rate 15 08/21/20 13:11 Blood Pressure 174/74 H 08/21/20 13:11 Pulse Oximetry 100 08/21/20 13:11 <Yadira Ram DO - Last Filed: 08/21/20 18:56> Initial Vital Signs Initial Vital Signs: Vital Signs Temperature 98.2 F 08/21/20 13:11 Pulse Rate 64 08/21/20 13:11 Respiratory Rate 15 08/21/20 13:11 Blood Pressure 174/74 H 08/21/20 13:11 Pulse Oximetry 100 08/21/20 13:11 Scores <WILMER Gilbert - Last Filed: 08/21/20 18:47> GCS Nancy coma scale eye opening: Spontaneous [place] coma scale verbal response: Orientated Nancy coma scale motor response: Obey commands [place] coma scale total score: 15 Course <WILMER Gilbert - Last Filed: 08/21/20 18:47> Orders Ordered: ED Orders 08/21/20 13:17 EKG-12 Lead Stat 08/21/20 13:50 Amylase Stat Complete Blood Count AUTO DIFF Stat Comprehensive Metabolic Panel Stat Lipase Stat Magnesium Stat Partial Thromboplastin Time Stat Prothrombin Time INR Stat 08/21/20 15:01 CT abdomen pelvis w con Stat Discontinued Medications Sodium Chloride (Normal Saline 0.9%) 1,000 mls @ 1,000 mls/hr IV BOLUS PRN PRN Reason: Fluid replacement Last Infusion: 08/21/20 16:17 Dose: 0 mls/hr Documented by: Admin: 08/21/20 14:42 Dose: 1,000 mls/hr Documented by: SYDNI Ondansetron HCl (Ondansetron 4 Mg/2 Ml Inj) 4 mg IV NOW ONE Stop: 08/21/20 14:20 Last Admin: 08/21/20 14:41 Dose: 4 mg Documented by: SYDNI Vital Signs Vital signs: Vital Signs - 8 hr 08/21/20 13:11 08/21/20 13:26 08/21/20 13:30 Temperature 98.2 F 97.7 F Pulse Rate 64 58 L 69 Respiratory Rate 15 15 16 Blood Pressure 174/74 H 169/75 H Pulse Oximetry 100 97 99 08/21/20 14:00 08/21/20 14:30 08/21/20 15:16 Temperature Pulse Rate 55 L 53 L 57 L Respiratory Rate 13 19 Blood Pressure Pulse Oximetry 96 99 98 08/21/20 15:18 08/21/20 15:30 08/21/20 16:00 Temperature Pulse Rate 54 L 57 L Respiratory Rate 15 19 Blood Pressure 156/71 H 154/74 H 159/74 H Pulse Oximetry 100 98 08/21/20 16:30 08/21/20 16:31 Temperature Pulse Rate 56 L 57 L Respiratory Rate 24 24 Blood Pressure 148/70 H Pulse Oximetry 99 99 <Yadira Ram, - Last Filed: 08/21/20 18:56> Orders Ordered: ED Orders 08/21/20 13:17 EKG-12 Lead Stat 08/21/20 13:50 Amylase Stat Complete Blood Count AUTO DIFF Stat Comprehensive Metabolic Panel Stat Lipase Stat Magnesium Stat Partial Thromboplastin Time Stat Prothrombin Time INR Stat 08/21/20 15:01 CT abdomen pelvis w con Stat Discontinued Medications Sodium Chloride (Normal Saline 0.9%) 1,000 mls @ 1,000 mls/hr IV BOLUS PRN PRN Reason: Fluid replacement Last Infusion: 08/21/20 16:17 Dose: 0 mls/hr Documented by: Admin: 08/21/20 14:42 Dose: 1,000 mls/hr Documented by: SYDNI Ondansetron HCl (Ondansetron 4 Mg/2 Ml Inj) 4 mg IV NOW ONE Stop: 08/21/20 14:20 Last Admin: 08/21/20 14:41 Dose: 4 mg Documented by: SYDNI Vital Signs Vital signs: Vital Signs - 8 hr 08/21/20 13:11 08/21/20 13:26 08/21/20 13:30 Temperature 98.2 F 97.7 F Pulse Rate 64 58 L 69 Respiratory Rate 15 15 16 Blood Pressure 174/74 H 169/75 H Pulse Oximetry 100 97 99 08/21/20 14:00 08/21/20 14:30 08/21/20 15:16 Temperature Pulse Rate 55 L 53 L 57 L Respiratory Rate 13 19 Blood Pressure Pulse Oximetry 96 99 98 08/21/20 15:18 08/21/20 15:30 08/21/20 16:00 Temperature Pulse Rate 54 L 57 L Respiratory Rate 15 19 Blood Pressure 156/71 H 154/74 H 159/74 H Pulse Oximetry 100 98 08/21/20 16:30 08/21/20 16:31 Temperature Pulse Rate 56 L 57 L Respiratory Rate 24 24 Blood Pressure 148/70 H Pulse Oximetry 99 99 MDM - Abdominal Pain <HONG Gilbert- - Last Filed: 08/21/20 18:47> Lab Data Attestation: I reviewed the patient's lab results. Result diagrams: 08/21/20 13:50 08/21/20 13:50 Labs: Lab Results 08/21/20 08/21/20 08/21/20 Range/Units 13:50 13:50 13:50 WBC 6.0 (4.5-11.0) X10^3/uL RBC 4.11 (4.0-5.2) X10^6/uL Hgb 11.4 L (12.0-16.0) g/dL Hct 34.9 L (36-46) % MCV 84.9 (80-100) fL MCH 27.7 (26-34) PG MCHC 32.6 (30-36) % RDW 15.2 H (11.6-14.8) % Plt Count 245 (150-400) X10^3/uL Neut % (Auto) 67.9 (50-75) % Lymph % (Auto) 22.4 L (25-40) % [place] % (Auto) 5.8 (3-14) % Eos % (Auto) 2.8 (2-4) % Baso % (Auto) 1.1 (0-2) % Neut # (Auto) 4000 (5807-8197) /uL Lymph # (Auto) 1300 (7844-4443) /uL [place] # (Auto) 300 (0-900) /uL Eos # (Auto) 200 (0-450) /uL Baso # (Auto) 100 (0-100) /uL PT 12.4 (10.1-12.7) SECONDS INR 1.1 (0.9-1.3) APTT 35 (26.4-36.2) SECONDS Sodium 135 L (137-145) mmol/L Potassium 3.6 (3.4-5.1) mmol/L Chloride 104 (98-107) mmol/L Carbon Dioxide 24 (22-32) mmol/L BUN 17 (7-17) mg/dL Creatinine 0.73 (0.52-1.04) mg/dL Estimated GFR > 60.0 (>60) mL/min BUN/Creatinine Ratio 23.3 H (6-22) Glucose 96 (80-110) mg/dL Calcium 9.8 (8.4-10.2) mg/dL Magnesium (1.6-2.3) mg/dL Total Bilirubin 0.3 (0.2-1.3) mg/dL AST 27 (14-36) IU/L ALT 26 (<35) IU/L Alkaline Phosphatase 96 (38-126) U/L Total Protein 7.3 (6.3-8.2) g/dL Albumin 4.4 (3.5-5.0) g/dL Globulin 2.9 (1.7-4.1) g/dL Albumin/Globulin Ratio 1.5 (1.0-2.8) Amylase (30-110) U/L Lipase 228 (23-300) U/L 03/23/21 Range/Units 13:50 WBC (4.5-11.0) X10^3/uL RBC (4.0-5.2) X10^6/uL Hgb (12.0-16.0) g/dL Hct (36-46) % MCV (80-100) fL MCH (26-34) PG MCHC (30-36) % RDW (11.6-14.8) % Plt Count (150-400) X10^3/uL Neut % (Auto) (50-75) % Lymph % (Auto) (25-40) % [place] % (Auto) (3-14) % Eos % (Auto) (2-4) % Baso % (Auto) (0-2) % Neut # (Auto) (2761-5017) /uL Lymph # (Auto) (0965-1857) /uL [place] # (Auto) (0-900) /uL Eos # (Auto) (0-450) /uL Baso # (Auto) (0-100) /uL PT (10.1-12.7) SECONDS INR (0.9-1.3) APTT (26.4-36.2) SECONDS Sodium (137-145) mmol/L Potassium (3.4-5.1) mmol/L Chloride (98-107) mmol/L Carbon Dioxide (22-32) mmol/L BUN (7-17) mg/dL Creatinine (0.52-1.04) mg/dL Estimated GFR (>60) mL/min BUN/Creatinine Ratio (6-22) Glucose (80-110) mg/dL Calcium (8.4-10.2) mg/dL Magnesium 1.7 (1.6-2.3) mg/dL Total Bilirubin (0.2-1.3) mg/dL AST (14-36) IU/L ALT (<35) IU/L Alkaline Phosphatase (38-126) U/L Total Protein (6.3-8.2) g/dL Albumin (3.5-5.0) g/dL Globulin (1.7-4.1) g/dL Albumin/Globulin Ratio (1.0-2.8) Amylase 86 (30-110) U/L Lipase (23-300) U/L Point of care testing: Urine Dip Bedside Urine Glucose Negative Bedside Urine Bilirubin - Negative Bedside Urine Ketone - Negative Urine Specific Kelley 1.025 Bedside Urine Occult Blood - Negative Bedside Urine pH 6 Bedside Urine Protein - Negative Bedside Urine Urobilinogen - Negative Bedside Urine Nitrite - Negative Bedside Urine Leukocytes - Negative Esterase Imaging Data CT scan - abdomen/pelvis: Radiologist's Impression: [address] [place] [id number] Scan ReportSigned Patient: Elizabeth Maravilla MMR#: [id number]: [id number]:[id number]/Sex: 70 / FDate of Service: 08/21/20Loc: EDAccession Number: [id number] Procedure: CT abdomen pelvis w con Ordering Provider: Yina Shen MICROSCOPIST-BC PROCEDURE: CT ABDOMEN PELVIS W CON INDICATIONS: r abd pain, recent divertic dx, did not finish abx TECHNIQUE: After the administration of intravenous contrast, 5 mm thick sections acquired from the diaphragm to the symphysis. 5 mm coronal and sagittal reformats were acquired. For radiation dose reduction, the following was used: automated exposure control, adjustment of mA and/or kV according to patient size. COMPARISON: [facility], CT, ABDOMEN/PELVIS WITH CONTRAST, 08/05/2015, 13:30. [facility], CT, CT ABDOMEN PELVIS W CON, 07/24/2020, 17:53. FINDINGS: Image quality: Excellent. ABDOMEN: Lung bases: Lung bases are clear. Heart size is normal. Solid organs: Liver is with steatosis. Gallbladder has been removed. There is mild prominence of the common bile duct, unchanged. This is suspected to be related to post cholecystectomy sequela. Otherwise, biliary system is non dilated. Pancreas enhances normally. Spleen is normal in size and enhancement. Left adrenal nodule is unchanged. Kidneys demonstrate normal size and enhancement, without hydronephrosis. Left renal cysts are present. Peritoneum and bowel: Bowel loops obstructive. Prominent colonic diverticula are present. There is a stable appearance of colonic thickening. There is a very minimal appearance of pericolonic stranding at the left inferior aspect of the sigmoid colon appearing minimally more prominent when compared to prior exam. No free fluid or free air. No free fluid or air. Nodes and vessels: No retroperitoneal or mesenteric adenopathy by size criteria. Aorta and inferior vena cava are normal in size. Miscellaneous: Bowel containing pelvic ventral hernia without incarceration or strangulation. PELVIS: Genitourinary: Bladder wall thickness is normal. Miscellaneous: No inguinal hernias or adenopathy. Bones: No suspicious bony lesions. No vertebral body compression fractures. Sacral cyst is unchanged. IMPRESSION: 1. Persistent appearance colonic diverticula with thickening relatively unchanged compared to prior exam. However, there is a focus of left lower quadrant distal sigmoid colon demonstrating a minimal appearance of pericolonic stranding, more prominent when compared to prior exam. Overall appearance is suggestive of a focal area of colitis secondary to diverticulitis. Dictated by: Betsy Melgar M.D. on 08/21/2020 at 15:20 Approved by: Betsy Melgar M.D. on 08/21/2020 at 15:30 [facility] Narrative Medical decision making narrative: The patient is a 70-year-old female with history of pancreatitis as well as diverticulitis who presents with a chief co mplaint of right lower quadrant pain consistent with previous episodes of diverticulitis. She was recently diagnosed at the beginning of this month, but stopped taking her antibiotics for fear that it would interfere with myasthenia gravis, for which she is being worked up. However this does increase her risk for abscess etcetera. She spoke with her supervisor labor gang, who requested a CT scan. Her lab work was reassuring with no leukocytosis or elevated lactate. Lipase is normal. Patient was noted to have colitis on CT scan. Discussed the possibility of infectious versus inflammatory, I believe this is inflammatory at this point she has no leukocytosis or fevers. Discussed labs/ results with Dr Ram. Discussed the possibility of steroids, but the patient would like to hold off on those for now as she has bad reactions to them such as migraine. Discussed simple diet, avoiding spicy foods deep fried fatty foods etcetera. We discussed conservative treatment including pushing fluids, Zofran as needed for nausea follow-up with primary care provider as well as her GI provider. I did encourage her to get a colonoscopy which she has yet to do. Discussed at length come back to ER for acute concerns such as abdominal pain with fever, inability keep down fluids etcetera. Patient has no questions or concerns upon discharge states understanding return precautions as well as follow-up care. She has tolerated p.o. fluids in the emergency department. <Yadira Ram, DO - Last Filed: 08/21/20 18:56> Lab Data Labs: Lab Results 08/21/20 08/21/20 08/21/20 Range/Units 13:50 13:50 13:50 WBC 6.0 (4.5-11.0) X10^3/uL RBC 4.11 (4.0-5.2) X10^6/uL Hgb 11.4 L (12.0-16.0) g/dL Hct 34.9 L (36-46) % MCV 84.9 (80-100) fL MCH 27.7 (26-34) PG MCHC 32.6 (30-36) % RDW 15.2 H (11.6-14.8) % Plt Count 245 (150-400) X10^3/uL Neut % (Auto) 67.9 (50-75) % Lymph % (Auto) 22.4 L (25-40) % [place] % (Auto) 5.8 (3-14) % Eos % (Auto) 2.8 (2-4) % Baso % (Auto) 1.1 (0-2) % Neut # (Auto) 4000 (1718-3676) /uL Lymph # (Auto) 1300 (4096-6952) /uL [place] # (Auto) 300 (0-900) /uL Eos # (Auto) 200 (0-450) /uL Baso # (Auto) 100 (0-100) /uL PT 12.4 (10.1-12.7) SECONDS INR 1.1 (0.9-1.3) APTT 35 (26.4-36.2) SECONDS Sodium 135 L (137-145) mmol/L Potassium 3.6 (3.4-5.1) mmol/L Chloride 104 (98-107) mmol/L Carbon Dioxide 24 (22-32) mmol/L BUN 17 (7-17) mg/dL Creatinine 0.73 (0.52-1.04) mg/dL Estimated GFR > 60.0 (>60) mL/min BUN/Creatinine Ratio 23.3 H (6-22) Glucose 96 (80-110) mg/dL Calcium 9.8 (8.4-10.2) mg/dL Magnesium (1.6-2.3) mg/dL Total Bilirubin 0.3 (0.2-1.3) mg/dL AST 27 (14-36) IU/L ALT 26 (<35) IU/L Alkaline Phosphatase 96 (38-126) U/L Total Protein 7.3 (6.3-8.2) g/dL Albumin 4.4 (3.5-5.0) g/dL Globulin 2.9 (1.7-4.1) g/dL Albumin/Globulin Ratio 1.5 (1.0-2.8) Amylase (30-110) U/L Lipase 228 (23-300) U/L 08/21/20 Range/Units 13:50 WBC (4.5-11.0) X10^3/uL RBC (4.0-5.2) X10^6/uL Hgb (12.0-16.0) g/dL Hct (36-46) % MCV (80-100) fL MCH (26-34) PG MCHC (30-36) % RDW (11.6-14.8) % Plt Count (150-400) X10^3/uL Neut % (Auto) (50-75) % Lymph % (Auto) (25-40) % [place] % (Auto) (3-14) % Eos % (Auto) (2-4) % Baso % (Auto) (0-2) % Neut # (Auto) (1969-5609) /uL Lymph # (Auto) (4418-6071) /uL [place] # (Auto) (0-900) /uL Eos # (Auto) (0-450) /uL Baso # (Auto) (0-100) /uL PT (10.1-12.7) SECONDS INR (0.9-1.3) APTT (26.4-36.2) SECONDS Sodium (137-145) mmol/L Potassium (3.4-5.1) mmol/L Chloride (98-107) mmol/L Carbon Dioxide (22-32) mmol/L BUN (7-17) mg/dL Creatinine (0.52-1.04) mg/dL Estimated GFR (>60) mL/min BUN/Creatinine Ratio (6-22) Glucose (80-110) mg/dL Calcium (8.4-10.2) mg/dL Magnesium 1.7 (1.6-2.3) mg/dL Total Bilirubin (0.2-1.3) mg/dL AST (14-36) IU/L ALT (<35) IU/L Alkaline Phosphatase (38-126) U/L Total Protein (6.3-8.2) g/dL Albumin (3.5-5.0) g/dL Globulin (1.7-4.1) g/dL Albumin/Globulin Ratio (1.0-2.8) Amylase 86 (30-110) U/L Lipase (23-300) U/L Point of care testing: Urine Dip Bedside Urine Glucose Negative Bedside Urine Bilirubin - Negative Bedside Urine Ketone - Negative Urine Specific Kelley 1.025 Bedside Urine Occult Blood - Negative Bedside Urine pH 6 Bedside Urine Protein - Negative Bedside Urine Urobilinogen - Negative Bedside Urine Nitrite - Negative Bedside Urine Leukocytes - Negative Esterase Discharge Plan Departure Patient Disposition: Home Clinical Impression: Colitis Instructions: DI for Colitis Activity Restrictions/Additional Instructions: Thank you for trusting us with your care today As discussed, your lab work is reassuring, and your CT scan shows evidence of colitis or inflammation in your colon. As discussed, I encouraged a light diet to begin with, pushing clear fluids and advancing as tolerated and able. Please avoid deep fried fatty foods, spicy foods acidic foods and other foods that can irritate your GI tract. Please follow-up with primary care provider as well as your GI specialist. As discussed please come back to the emergency department for any acute concerns. This includes abdominal pain with fever, inability keep down fluids etcetera I did send a prescription of ondansetron for nausea to [facility]. Prescriptions: New ondansetron 4 mg tablet,disintegrating 4 mg PO Q6H PRN (Reason: nausea and vomiting) Qty: 14 RF: 0 No Action [turmeric] 1,000 mg PO DAILY Qty: 0 RF: 0 aspirin 81 MG tablet,delayed release (DR/EC) 81 mg PO QPM Qty: 0 RF: 0 miscellaneous medical supply Misc 1 each .ROUTE .COMPLEX Qty: 1 RF: 0 losartan 100 mg tablet 100 mg PO DAILY Qty: 90 RF: 3 hydrochlorothiazide 50 mg tablet 50 mg PO DAILY Qty: 90 RF: 3 aripiprazole 20 mg tablet See Rx Instructions .ROUTE .COMPLEX Qty: 45 RF: 2 promethazine 12.5 mg tablet 12.5 mg PO Q6H PRN (Reason: nausea) Qty: 20 RF: 2 alpha lipoic acid 600 mg 600 mg PO .QDAY RF: 0 Psyllium fiber 12 mg 12 mg PO .QDAY RF: 0 Majestic 3 690 mg 690 mg PO .QDAY RF: 0 pyridostigmine bromide 60 mg tablet 60 mg PO 6XD RF: 0 ondansetron HCl [Zofran] 4 mg tablet 4 mg PO Q8H PRN (Reason: nausea and vomiting) Qty: 10 RF: 0 hydrocodone-acetaminophen 5-325 mg tablet 1 tab PO Q4-6H PRN (Reason: pain) Qty: 10 RF: 0 Referrals: Doris Schreiber ARNP [Family Provider] - <Yadira Ram DO - Last Filed: 08/21/20 18:56> Cosign ED Attending Cosignature Attestation: I was immediately available in the department for consultation. Documentation has been reviewed. I agree with assessment and plan.
--- NOTE | 2020-08-21 15:01 | DI.CT.S_ITS ---
PROCEDURE: CT ABDOMEN PELVIS W CON INDICATIONS: r abd pain, recent divertic dx, did not finish abx TECHNIQUE: After the administration of intravenous contrast, 5 mm thick sections acquired from the diaphragm to the symphysis. 5 mm coronal and sagittal reformats were acquired. For radiation dose reduction, the following was used: automated exposure control, adjustment of mA and/or kV according to patient size. COMPARISON: [facility], CT, ABDOMEN/PELVIS WITH CONTRAST, 08/05/2015, 13:30. [facility], CT, CT ABDOMEN PELVIS W CON, 07/24/2020, 17:53. FINDINGS: Image quality: Excellent. ABDOMEN: Lung bases: Lung bases are clear. Heart size is normal. Solid organs: Liver is with steatosis. Gallbladder has been removed. There is mild prominence of the common bile duct, unchanged. This is suspected to be related to post cholecystectomy sequela. Otherwise, biliary system is non dilated. Pancreas enhances normally. Spleen is normal in size and enhancement. Left adrenal nodule is unchanged. Kidneys demonstrate normal size and enhancement, without hydronephrosis. Left renal cysts are present. Peritoneum and bowel: Bowel loops obstructive. Prominent colonic diverticula are present. There is a stable appearance of colonic thickening. There is a very minimal appearance of pericolonic stranding at the left inferior aspect of the sigmoid colon appearing minimally more prominent when compared to prior exam. No free fluid or free air. No free fluid or air. Nodes and vessels: No retroperitoneal or mesenteric adenopathy by size criteria. Aorta and inferior vena cava are normal in size. Miscellaneous: Bowel containing pelvic ventral hernia without incarceration or strangulation. PELVIS: Genitourinary: Bladder wall thickness is normal. Miscellaneous: No inguinal hernias or adenopathy. Bones: No suspicious bony lesions. No vertebral body compression fractures. Sacral cyst is unchanged. IMPRESSION: 1. Persistent appearance colonic diverticula with thickening relatively unchanged compared to prior exam. However, there is a focus of left lower quadrant distal sigmoid colon demonstrating a minimal appearance of pericolonic stranding, more prominent when compared to prior exam. Overall appearance is suggestive of a focal area of colitis secondary to diverticulitis. Dictated by: Betsy Melgar M.D. on 08/21/2020 at 15:20 Approved by: Betsy Melgar M.D. on 08/21/2020 at 15:30
[2020-08-21 15:18] LABS: Amylase 86 U/L (30-110); Magnesium 1.7 mg/dL (1.6-2.3)
== END 2020-08-21 17:14 | disposition home or self-care (01) ==
PROVIDERS: Emergency Medicine; Emergency Provider Nurse Practitioner Family; Family Provider Nurse Practitioner; PCP Student in an Organized Health Care Education/Training Program
DX: K52.9 Noninfective gastroenteritis and colitis, unspecified (principal); R11.0 Nausea; I10 Essential (primary) hypertension
CPT/HCPCS: 36415; 74177; 80053; 81003; 82150; 83690; 83735; 85025; 85610; 85730; 93005; 93010; 96361; 96374; 99284; J2405; Q9967

== ENCOUNTER 2020-09-23 08:21 | Emergency (ER) | payer MEDICARE, BC, SELFPAY ==
[2020-07-24 19:27] VITALS: BMI 33.3
[2020-09-23 08:36] VITALS: BP 152/72; PULSE 65; RESP 15; TEMP 36.8; O2SAT 99; BMI 32.4
--- NOTE | 2020-09-23 08:44 | ED.GENADULT ---
HPI - General Adult General Chief complaint: Abdominal Pain Stated complaint: abdominal pain since 215am, poss diverticulitis Time Seen by Provider: 09/23/20 08:23 Source: patient Mode of arrival: Ambulatory Limitations: no limitations History of Present Illness HPI narrative: Patient is a 70-year-old female. Has had diverticulitis in the past. She states that her diverticulitis pain presents in her right lower quadrant. A couple nights ago she started having pain in the right lower quadrant. Did wake her from sleep but she was able to go back to sleep. The night afterwards symptoms seem to get a little worse and then last night symptoms persisted. She did have the sensation that she had to go to the bathroom. She felt like she was going to have diarrhea but did have a normal bowel movement. There was no blood in the stool. She states that it did improve her sensation of having to go to the bathroom but did not improve her abdominal pain all that much. Has had some nausea but no vomiting. Has had her gallbladder out. Has had a hysterectomy. She took some Advil last night with no improvement. Related Data Home Medications Medication Instructions Recorded Confirmed [turmeric] 1,000 mg PO DAILY #0 05/17/16 08/28/20 aspirin 81 mg PO QPM #0 01/25/17 08/28/20 [place] 3 690 mg PO .QDAY 09/16/19 08/28/20 Psyllium fiber 12 mg PO .QDAY 09/16/19 08/28/20 alpha lipoic acid 600 mg PO .QDAY 09/16/19 08/28/20 pyridostigmine bromide 60 mg tablet 60 mg PO 6XD tab 08/09/20 08/28/20 Previous Rx's Medication Instructions Recorded miscellaneous medical supply 1 each .ROUTE .COMPLEX #1 each 08/23/19 hydrochlorothiazide 50 mg tablet 50 mg PO DAILY #90 tab 11/23/19 losartan 100 mg tablet 100 mg PO DAILY #90 tab 11/23/19 aripiprazole 20 mg tablet See Rx Instructions .ROUTE 02/17/20 .COMPLEX #45 tab promethazine 12.5 mg tablet 12.5 mg PO Q6H PRN #20 tab 07/27/20 hydrocodone-acetaminophen 1 tab PO Q4-6H PRN #10 tab 08/06/20 ondansetron HCl [Zofran] 4 mg PO Q8H PRN #10 tab 08/06/20 ondansetron 4 mg PO Q6H PRN #14 tab 08/21/20 amoxicillin-pot clavulanate 1 tab PO Q12H 7 Days #14 tab 09/23/20 [Augmentin XR] ondansetron 4 mg PO Q6H PRN #14 tab 09/23/20 Allergies Allergy/AdvReac Type Severity Reaction Status Date / Time cimetidine [From TAGAMET] Allergy Mild hallucinati Verified 09/23/20 08:40 ons codeine [CODEINE] Allergy Mild hallucinati Verified 09/23/20 08:40 ons lisinopril [LISINOPRIL] Allergy Mild cough/GI Verified 09/23/20 08:40 issues ranitidine [From ZANTAC] Allergy Mild hallucinati Verified 09/23/20 08:40 ons Review of Systems Constitutional Constitutional: Denies fatigue and Denies fever(s) Eyes Eyes: Denies change in vision ENT Ears, Nose, Mouth, and Throat: Denies sore throat Cardiovascular Cardiovascular: Denies chest pain and Denies dyspnea Respiratory Respiratory: Denies dyspnea Gastrointestinal Gastrointestinal: Reports abdominal pain, Denies change in bowel habits, Reports nausea and Denies vomiting Genitourinary Genitourinary: Denies hematuria and Denies dysuria Genitourinary: Denies hematuria and Denies dysuria Musculoskeletal Musculoskeletal: Denies arthralgias and Denies myalgias Integumentary/Breasts Skin/Breast: Denies rash Neurologic Neurologic: Denies behavioral changes Psychiatric Psychiatric: Denies behavioral changes Endocrine Endocrine: Denies fatigue Hematologic/Lymphatic On Anticoagulants: No Allergic/Immunologic Allergic/Immunologic: Denies urticaria Patient History Medical History Abdominal pain Activity intolerance Acute pancreatitis Anemia Anosmia Atypical chest pain Cervical dystonia (1986) Chicken pox (1956) Cholecystectomy planned Chronic fatigue (08/07/15) Colon polyps Cough CTS (carpal tunnel syndrome) (1986) Denervation of muscle Depression (1974) Diastasis of rectus abdominis (08/07/15) Diverticulitis Dyspnea Dyspnea Dyspnea on exertion Episodic lightheadedness Fatigue Gastritis Generalized abdominal pain (08/07/15) Headache Hyperlipidemia Hypertension Itch of skin Measles (1957) Metallic taste (10/11/15) Mumps (1959) Neoplasm of uncertain behavior of skin (10/11/15) NSAID induced gastritis Osteopenia after menopause Peripheral neuropathy (2012) Piriformis syndrome of right side Progressive neurological disorder Right hip pain Shortness of breath (08/27/15) Sjogren's syndrome (2012) Skin cancer (2016) Sleep apnea (2009) Small fiber polyneuropathy SOB (shortness of breath) (2010) Status post DANILO-BSO Visual disturbance Surgical History Anesthesia complication History of carpal tunnel repair (1989) History of cervical spinal surgery (07/2008) History of laparoscopic cholecystectomy (2006) S/P DANILO-BSO (total abdominal hysterectomy and bilateral salpingo-oophorectomy) (01/2007) Status post hernia repair (2013) Status post hernia repair (2007) Family History Brother Age: 63 Prostate cancer Heart disease Hypertension High cholesterol Heart attack Brother Age: 61 Hypertension Mental health problem Kidney transplant recipient Chronic kidney disease with end stage renal failure on dialysis Father Colon cancer Heart disease Mental health problem Heart failure Grandfather Heart disease Hypertension Brain aneurysm Mother Cancer Hypertension NHL (non-Hodgkin's lymphoma) Grandmother Stroke Sister Age: 69 Celiac disease High cholesterol Mental health problem Thyroid disorder Sister Age: 65 Psoriatic arthritis Thyroid disorder Grandmother Alzheimer's disease Grandfather Colon cancer Sister Breast cancer Sister Suicide Brother No problems noted. Sister Thyroid disorder Social History marital status: household members: spouse occupational status: previously employed Smoking Status: Never smoker alcohol intake: current substance use type: does not use Smoking Status: Never smoker alcohol intake frequency: holidays/special occasions only Substance Use Type: does not use Exam Initial Vital Signs Initial Vital Signs: Vital Signs Temperature 98.3 F 09/23/20 08:36 Pulse Rate 65 09/23/20 08:36 Respiratory Rate 15 09/23/20 08:36 Blood Pressure 152/72 H 09/23/20 08:36 Pulse Oximetry 99 09/23/20 08:36 Const General: cooperative and comfortable Limitations: mental status not altered HENMT Head: normal to inspection and atraumatic Resp Effort & Inspection: normal respiratory effort Auscultation: clear to auscultation bilaterally Cardio Rate: regular rate Rhythm: regular rhythm GI Inspection: non-distended Palpation: soft, No firm, No guarding and tender (Right lower quadrant) General: bladder normal to inspection Back/Spine/Pelvis Back: No CVA tenderness Skin Lesions: no lesions Rashes: no rashes Neuro General: patient alert, patient awake and patient oriented x3 Cognition: normal cognition Speech: speech normal Extrem General: normal to inspection and capillary refill normal Psych Appearance: grossly normal and well kempt Course Vital Signs Vital signs: Vital Signs - 8 hr 09/23/20 08:36 Temperature 98.3 F Pulse Rate 65 Respiratory Rate 15 Blood Pressure 152/72 H Pulse Oximetry 99 Medical Decision Making MDM Narrative Medical decision making narrative: Had a long discussion with the patient regarding her symptoms. She states that she is fairly convinced that her symptoms that she presents with today is very similar to her prior diagnosis of diverticulitis. Discussed with her the options to include obtaining IV and blood work and CT scan verses presumptively treating her with antibiotics and nausea medication in an attempt to avoid repeat CT scans which she has had multiple times in the past. We did discuss the risks of this to include potentially missing another surgical issue versus missing something such as an abscess. She expressed understanding of this and was okay with just treating with antibiotics. She was given return precautions and follow-up instructions. She expressed understanding and agreement plan. Discharge Plan Departure Patient Disposition: Home Clinical Impression: Abdominal pain, Diverticulitis Instructions: DI for Diverticulitis, DI for Abdominal Pain-Adult Activity Restrictions/Additional Instructions: I recommend that you take the antibiotics and the nausea medication as directed. Contact your primary provider for a follow-up. Return to the emergency department for any new or worsening symptoms Prescriptions: New ondansetron 4 mg tablet,disintegrating 4 mg PO Q6H PRN (Reason: nausea and vomiting) Qty: 14 RF: 0 amoxicillin-pot clavulanate [Augmentin XR] 1,000-62.5 mg tablet extended release 12 hr 1 tab PO Q12H 7 Days Qty: 14 RF: 0 No Action [turmeric] 1,000 mg PO DAILY Qty: 0 RF: 0 aspirin 81 MG tablet,delayed release (DR/EC) 81 mg PO QPM Qty: 0 RF: 0 miscellaneous medical supply Misc 1 each .ROUTE .COMPLEX Qty: 1 RF: 0 losartan 100 mg tablet 100 mg PO DAILY Qty: 90 RF: 3 hydrochlorothiazide 50 mg tablet 50 mg PO DAILY Qty: 90 RF: 3 aripiprazole 20 mg tablet See Rx Instructions .ROUTE .COMPLEX Qty: 45 RF: 2 promethazine 12.5 mg tablet 12.5 mg PO Q6H PRN (Reason: nausea) Qty: 20 RF: 2 alpha lipoic acid 600 mg 600 mg PO .QDAY RF: 0 Psyllium fiber 12 mg 12 mg PO .QDAY RF: 0 [place] 3 690 mg 690 mg PO .QDAY RF: 0 pyridostigmine bromide 60 mg tablet 60 mg PO 6XD RF: 0 ondansetron HCl [Zofran] 4 mg tablet 4 mg PO Q8H PRN (Reason: nausea and vomiting) Qty: 10 RF: 0 hydrocodone-acetaminophen 5-325 mg tablet 1 tab PO Q4-6H PRN (Reason: pain) Qty: 10 RF: 0 ondansetron 4 mg tablet,disintegrating 4 mg PO Q6H PRN (Reason: nausea and vomiting) Qty: 14 RF: 0 Referrals: Doris Schreiber ARNP [Primary Care Provider] -
== END 2020-09-23 08:57 | disposition home or self-care (01) ==
PROVIDERS: Emergency Provider Emergency Medicine; Family Provider Nurse Practitioner; PCP Nurse Practitioner
DX: K57.92 Diverticulitis of intestine, part unspecified, without perforation or abscess without bleeding (principal); R10.31 Right lower quadrant pain; R11.0 Nausea
CPT/HCPCS: 99281

== ENCOUNTER 2020-09-29 16:47 | Emergency (ER) | payer MEDICARE, BC, SELFPAY ==
[2020-07-24 19:27] VITALS: BMI 33.3
[2020-09-29 17:05] VITALS: BP 160/92; PULSE 62; RESP 20; TEMP 36.7; O2SAT 100; BMI 32.9
== END 2020-09-29 18:52 | disposition left against medical advice (07) ==
PROVIDERS: Emergency Provider Emergency Medicine; Family Provider Nurse Practitioner; PCP Nurse Practitioner
CPT/HCPCS: 99281

== ENCOUNTER 2020-09-29 21:17 | Emergency (ER) | payer MEDICARE, BC, SELFPAY ==
[2020-07-24 19:27] VITALS: BMI 33.3
[2020-09-29] VITALS (8 sets, daily range): BP systolic 132–163; BP diastolic 70–79; PULSE 60–68; RESP 13–22; TEMP 36.2; O2SAT 95–99; BMI 32.4
[2020-09-29] MEDS: ONDANSETRON 4 MG/2 ML INJ IV (21:56)
[2020-09-29 22:03] LABS: Add Manual Diff / Slide Review NO; Basophils Absolute Auto 100 /uL (0-100); Basophils Percent Auto 0.9 % (0-2); Eosinophils Absolute Auto 800 /uL (0-450); Hematocrit 35.3 % (36-46); Hemoglobin 11.7 g/dL (12.0-16.0); INR 1.1 (0.9-1.3); Lymphocytes Absolute Auto 1500 /uL (1100-4500); Lymphocytes Percent Auto 17.8 % (25-40); Mean Corpuscular Hemoglobin 27.6 PG (26-34); Mean Corpuscular Volume 83.7 fL (80-100); Monocytes Absolute Auto 400 /uL (0-900); Monocytes Percent Auto 5.4 % (3-14); Neutrophils Absolute Auto 5600 /uL (1500-7000); Neutrophils Percent Auto 66.9 % (50-75); Platelet Count 261 X10^3/uL (150-400); Prothrombin Time 12.4 SECONDS (10.1-12.7); Red Blood Cell Count 4.22 X10^6/uL (4.0-5.2); Red Cell Distribution Width 14.4 % (11.6-14.8); White Blood Cell Count 8.3 X10^3/uL (4.5-11.0)
[2020-09-29 22:06] LABS: PTT Partial Thromboplastin Tim 35 SECONDS (26.4-36.2)
--- NOTE | 2020-09-29 22:07 | ED.ABDPAIN ---
HPI - Abdominal Pain General Chief Complaint: Abdominal Pain Stated Complaint: lower abdominal pain, nausea Time Seen by Provider: 09/29/20 21:59 Source: patient Mode of arrival: Wheelchair Limitations: no limitations History of Present Illness HPI narrative: 70-year-old female nonsmoker with history of diverticulitis and colitis presents with a chief complaint severe, if not worsening right lower quadrant and side pain over the past week or so. She was seen and evaluated here last week and clinically was diagnosed with diverticulitis and she was placed on Augmentin. There is extensive bedside discussion about the utility of blood work and imaging and they elected to hold off. Over the course of the week the patient took her full complement of antibiotics and presents tonight with increasing pain. She admits that the pain is worse with motion and improves with rest. She denies any correlation with eating or drinking. She denies any dysuria, frequency or urgency. She denies any change in bowel habits. Patient states that she has had chills but denies any measured fever. She denies nausea or vomiting. MD complaint: abdominal pain Onset (ago): day(s) Pain Consistency: constant Location: RLQ Severity: severe Severity scale (1-10): 8 Quality: cramping and aching Radiation: none Relieving factors: rest Exacerbating factors: movement Associated symptoms: denies other symptoms Related Data Home Medications Medication Instructions Recorded Confirmed [turmeric] 1,000 mg PO DAILY #0 05/17/16 08/28/20 aspirin 81 mg PO QPM #0 01/25/17 08/28/20 [place] 3 690 mg PO .QDAY 09/16/19 08/28/20 Psyllium fiber 12 mg PO .QDAY 09/16/19 08/28/20 alpha lipoic acid 600 mg PO .QDAY 09/16/19 08/28/20 pyridostigmine bromide 60 mg tablet 60 mg PO 6XD tab 08/09/20 08/28/20 Previous Rx's Medication Instructions Recorded miscellaneous medical supply 1 each .ROUTE .COMPLEX #1 each 08/23/19 hydrochlorothiazide 50 mg tablet 50 mg PO DAILY #90 tab 11/23/19 losartan 100 mg tablet 100 mg PO DAILY #90 tab 11/23/19 aripiprazole 20 mg tablet See Rx Instructions .ROUTE 02/17/20 .COMPLEX #45 tab promethazine 12.5 mg tablet 12.5 mg PO Q6H PRN #20 tab 07/27/20 hydrocodone-acetaminophen 1 tab PO Q4-6H PRN #10 tab 08/06/20 ondansetron HCl [Zofran] 4 mg PO Q8H PRN #10 tab 08/06/20 ondansetron 4 mg PO Q6H PRN #14 tab 08/21/20 ondansetron 4 mg PO Q6H PRN #14 tab 09/23/20 amoxicillin-pot clavulanate 1 tab PO BID #20 tab 09/29/20 [Augmentin] ciprofloxacin HCl 500 mg PO BID 10 Days #20 tab 09/29/20 ketorolac 10 mg PO Q6H PRN #14 tab 09/29/20 metronidazole [Flagyl] 500 mg PO Q8H 10 Days #30 tab 09/29/20 Allergies Allergy/AdvReac Type Severity Reaction Status Date / Time cimetidine [From TAGAMET] Allergy Mild hallucinati Verified 09/29/20 21:25 ons codeine [CODEINE] Allergy Mild hallucinati Verified 09/29/20 21:25 ons lisinopril [LISINOPRIL] Allergy Mild cough/GI Verified 09/29/20 21:25 issues ranitidine [From ZANTAC] Allergy Mild hallucinati Verified 09/29/20 21:25 ons Review of Systems Constitutional Constitutional: Denies chills, Denies fatigue, Denies fever(s), Denies frequent falls, Denies lethargy and Denies weakness Eyes Eyes: Denies change in vision, Denies eye discharge, Denies irritation and Denies loss of vision ENT Ears, Nose, Mouth, and Throat: Denies change in voice, Denies dizziness, Denies neck pain, Denies sore throat and Denies throat swelling Cardiovascular Cardiovascular: Denies chest pain, Denies irregular heart rhythm, Denies lightheadedness, Denies palpitations, Denies dyspnea, Denies dyspnea on exertion and Denies orthopnea Respiratory Respiratory: Denies cough, Denies dyspnea, Denies dyspnea on exertion and Denies wheezing Gastrointestinal Gastrointestinal: Reports abdominal pain, Denies change in bowel habits, Denies diarrhea, Denies nausea and Denies vomiting Musculoskeletal Musculoskeletal: Denies neck pain and Denies numbness Integumentary/Breasts Skin/Breast: Denies pruritus, Denies erythema, Denies rash and Denies wounds Neurologic Neurologic: Denies behavioral changes, Denies confusion, Denies dizziness, Denies frequent falls, Denies loss of vision, Denies numbness and Denies weakness Psychiatric Psychiatric: Denies anxiety, Denies behavioral changes, Denies confusion, Denies depression, Denies homicidal ideation and Denies suicidal ideation Endocrine Endocrine: Denies fatigue, Denies flushing and Denies palpitations Hematologic/Lymphatic Hematologic/Lymphatic: Denies easy bruising Allergic/Immunologic Allergic/Immunologic: Denies urticaria, Denies throat swelling and Denies wheezing Patient History Medical History Abdominal pain Activity intolerance Acute pancreatitis Anemia Anosmia Atypical chest pain Cervical dystonia (1986) Chicken pox (1956) Cholecystectomy planned Chronic fatigue (08/07/15) Colon polyps Cough CTS (carpal tunnel syndrome) (1986) Denervation of muscle Depression (1974) Diastasis of rectus abdominis (08/07/15) Diverticulitis Dyspnea Dyspnea Dyspnea on exertion Episodic lightheadedness Fatigue Gastritis Generalized abdominal pain (08/07/15) Headache Hyperlipidemia Hypertension Itch of skin Measles (1957) Metallic taste (10/11/15) Mumps (1958) Neoplasm of uncertain behavior of skin (10/11/15) NSAID induced gastritis Osteopenia after menopause Peripheral neuropathy (2012) Piriformis syndrome of right side Progressive neurological disorder Right hip pain Shortness of breath (08/27/15) Sjogren's syndrome (2012) Skin cancer (2015) Sleep apnea (2009) Small fiber polyneuropathy SOB (shortness of breath) (2010) Status post DANILO-BSO Visual disturbance Surgical History Anesthesia complication History of carpal tunnel repair (1989) History of cervical spinal surgery (07/2008) History of laparoscopic cholecystectomy (2006) S/P DANILO-BSO (total abdominal hysterectomy and bilateral salpingo-oophorectomy) (01/2007) Status post hernia repair (2013) Status post hernia repair (2007) Family History Brother Age: 63 Prostate cancer Heart disease Hypertension High cholesterol Heart attack Brother Age: 61 Hypertension Mental health problem Kidney transplant recipient Chronic kidney disease with end stage renal failure on dialysis Father Colon cancer Heart disease Mental health problem Heart failure Grandfather Heart disease Hypertension Brain aneurysm Mother Cancer Hypertension NHL (non-Hodgkin's lymphoma) Grandmother Stroke Sister Age: 69 Celiac disease High cholesterol Mental health problem Thyroid disorder Sister Age: 65 Psoriatic arthritis Thyroid disorder Grandmother Alzheimer's disease Grandfather Colon cancer Sister Breast cancer Sister Suicide Brother No problems noted. Sister Thyroid disorder Social History marital status: household members: spouse occupational status: previously employed Smoking Status: Never smoker alcohol intake: current substance use type: does not use Smoking Status: Never smoker alcohol intake frequency: holidays/special occasions only Substance Use Type: does not use Exam Narrative Exam Narrative: GENERAL: [70] year old patient appears stated age. Well-nourished, well-developed patient, in mild distress. HEAD: Atraumatic. Normocephalic. EYES: Pupils equal round and reactive. Extraocular motions intact. No scleral icterus. No injection or drainage. ENT: Nose without bleeding, purulent drainage. Throat without erythema, tonsillar hypertrophy or exudate. Airway patent. NECK: Trachea midline. Non tender CARDIOVASCULAR: Regular rate and rhythm without murmurs, gallops, or rubs. RESPIRATORY: Clear to auscultation. Breath sounds equal bilaterally. No wheezes, rales, or rhonchi. GASTROINTESTINAL: Abdomen soft, tender in the right lower quadrant, nondistended. EXTREMITIES: No edema or joint tenderness. BACK: Nontender without deformity or crepitance. No flank tenderness. NEURO: AOx3. SKIN: No rash or erythema of visible areas Initial Vital Signs Initial Vital Signs: Vital Signs Temperature 97.1 F L 09/29/20 21:22 Pulse Rate 68 09/29/20 21:22 Respiratory Rate 14 09/29/20 21:22 Blood Pressure 163/79 H 09/29/20 21:22 Pulse Oximetry 99 09/29/20 21:22 Course Orders Ordered: ED Orders 09/29/20 21:26 EKG-12 Lead Stat 09/29/20 21:45 Complete Blood Count AUTO DIFF Stat Comprehensive Metabolic Panel Stat Lipase Stat Partial Thromboplastin Time Stat Prothrombin Time INR Stat 09/29/20 22:19 CT abdomen pelvis w con Stat Discontinued Medications Sodium Chloride (Normal Saline 0.9%) 1,000 mls @ 1,000 mls/hr IV BOLUS ONE Stop: 09/29/20 23:07 Last Infusion: 09/29/20 23:53 Dose: 0 mls/hr Documented by: Admin: 09/29/20 22:18 Dose: 1,000 mls/hr Documented by: MAY Ketorolac Tromethamine (Ketorolac 30 Mg/Ml Vial) 15 mg IV NOW ONE Stop: 09/29/20 23:27 Last Admin: 09/29/20 23:37 Dose: 15 mg Documented by: MAY Levofloxacin (Levofloxacin 250 Mg Tablet) 500 mg PO NOW ONE Stop: 09/29/20 23:14 Last Admin: 09/29/20 23:52 Dose: Not Given Documented by: MAY Ondansetron HCl (Ondansetron 4 Mg/2 Ml Inj) 4 mg IV NOW ONE Stop: 09/29/20 21:27 Last Admin: 09/29/20 21:56 Dose: 4 mg Documented by: MAY Vital Signs Vital signs: Vital Signs - 8 hr 09/29/20 21:22 09/29/20 21:41 09/29/20 21:42 Temperature 97.1 F L Pulse Rate 68 61 64 Respiratory Rate 14 17 15 Blood Pressure 163/79 H 142/77 H Pulse Oximetry 99 99 98 09/29/20 22:00 09/29/20 22:38 09/29/20 22:39 Temperature Pulse Rate 64 61 61 Respiratory Rate 15 22 17 Blood Pressure 149/76 H 144/72 H Pulse Oximetry 97 99 98 09/29/20 23:00 09/29/20 23:30 Temperature Pulse Rate 60 60 Respiratory Rate 16 13 Blood Pressure 132/70 Pulse Oximetry 95 96 MDM - Abdominal Pain Lab Data Result diagrams: 09/29/20 21:45 09/29/20 21:45 Labs: Lab Results 09/29/20 09/29/20 09/29/20 Range/Units 21:45 21:45 21:45 WBC 8.3 (4.5-11.0) X10^3/uL RBC 4.22 (4.0-5.2) X10^6/uL Hgb 11.7 L (12.0-16.0) g/dL Hct 35.3 L (36-46) % MCV 83.7 (80-100) fL MCH 27.6 (26-34) PG MCHC 33.0 (30-36) % RDW 14.4 (11.6-14.8) % Plt Count 261 (150-400) X10^3/uL Neut % (Auto) 66.9 (50-75) % Lymph % (Auto) 17.8 L (25-40) % [place] % (Auto) 5.4 (3-14) % Eos % (Auto) 9.0 H (2-4) % Baso % (Auto) 0.9 (0-2) % Neut # (Auto) 5600 (7420-3336) /uL Lymph # (Auto) 1500 (9708-0060) /uL [place] # (Auto) 400 (0-900) /uL Eos # (Auto) 800 H (0-450) /uL Baso # (Auto) 100 (0-100) /uL PT 12.4 (10.1-12.7) SECONDS INR 1.1 (0.9-1.3) APTT 35 (26.4-36.2) SECONDS Sodium 134 L (137-145) mmol/L Potassium 3.4 (3.4-5.1) mmol/L Chloride 100 (98-107) mmol/L Carbon Dioxide 26 (22-32) mmol/L BUN 11 (7-17) mg/dL Creatinine 0.67 (0.52-1.04) mg/dL Estimated GFR > 60.0 (>60) mL/min BUN/Creatinine Ratio 16.4 (6-22) Glucose 143 H (80-110) mg/dL Calcium 9.8 (8.4-10.2) mg/dL Total Bilirubin 0.4 (0.2-1.3) mg/dL AST 23 (14-36) IU/L ALT 19 (<35) IU/L Alkaline Phosphatase 121 (38-126) U/L Total Protein 6.9 (6.3-8.2) g/dL Albumin 4.2 (3.5-5.0) g/dL Globulin 2.7 (1.7-4.1) g/dL Albumin/Globulin Ratio 1.6 (1.0-2.8) Lipase 133 (23-300) U/L Point of care testing: Urine Dip Bedside Urine Glucose Negative Bedside Urine Bilirubin - Negative Bedside Urine Ketone - Negative Urine Specific [place] 1.015 Bedside Urine Occult Blood - Negative Bedside Urine pH 6 Bedside Urine Protein - Negative Bedside Urine Urobilinogen - Negative Bedside Urine Nitrite - Negative Bedside Urine Leukocytes - Negative Esterase Imaging Data Extremity x-ray #1: Radiologist's Impression: Non complicated acute sigmoid diverticulitis, subcentimeter hypodense lesion in the pancreatic body MDM Narrative Medical decision making narrative: Patient with history of diverticulitis presents with a very convincing story and physical exam. She has reassuring blood work and a CT showing non complicated diverticulitis. She hasn't improved on Augmentin, but is not a candidate for quinolones and Flagyl due to her suspected diagnosis of myasthenia gravis. I did have an extensive discussion with the patient and and sure the opinion that it is not worth the risk of trying a quinolone given the fact that she has improved on the operative state me in and has an upcoming EMG for confirmatory study. I had already sent prescriptions to her pharmacy prior to the discussion about her myasthenia gravis and have instructed her not to fill the Cipro and Flagyl. We will do a 2nd round of the Augmentin and encouraged close follow-up. Return precautions discussed and questions answered to her apparent satisfaction Discharge Plan Departure Patient Disposition: Home Clinical Impression: Diverticulitis Instructions: Diverticulitis Activity Restrictions/Additional Instructions: *You have been diagnosed with [acute uncomplicated sigmoid diverticulitis, no evidence of abscess or perforation. No evidence of appendicitis.] *What to do: *Take medications as directed *Follow up with your primary care provider in 2-3 days, call for an appointment. Let them know you were seen in the Emergency Department and that we ask that you be seen in follow up *Return to ER if you should have any new, worsening or concerning symptoms such as fever, shaking chills, persistent nausea and vomiting, or other bothersome symptoms Prescriptions: New ciprofloxacin HCl 500 mg tablet 500 mg PO BID 10 Days Qty: 20 RF: 0 metronidazole [Flagyl] 500 mg tablet 500 mg PO Q8H 10 Days Qty: 30 RF: 0 amoxicillin-pot clavulanate [Augmentin] 875-125 mg tablet 1 tab PO BID Qty: 20 RF: 0 ketorolac 10 mg tablet 10 mg PO Q6H PRN (Reason: pain) Qty: 14 RF: 0 No Action [turmeric] 1,000 mg PO DAILY Qty: 0 RF: 0 aspirin 81 MG tablet,delayed release (DR/EC) 81 mg PO QPM Qty: 0 RF: 0 miscellaneous medical supply Misc 1 each .ROUTE .COMPLEX Qty: 1 RF: 0 losartan 100 mg tablet 100 mg PO DAILY Qty: 90 RF: 3 hydrochlorothiazide 50 mg tablet 50 mg PO DAILY Qty: 90 RF: 3 aripiprazole 20 mg tablet See Rx Instructions .ROUTE .COMPLEX Qty: 45 RF: 2 promethazine 12.5 mg tablet 12.5 mg PO Q6H PRN (Reason: nausea) Qty: 20 RF: 2 alpha lipoic acid 600 mg 600 mg PO .QDAY RF: 0 Psyllium fiber 12 mg 12 mg PO .QDAY RF: 0 [place] 3 690 mg 690 mg PO .QDAY RF: 0 pyridostigmine bromide 60 mg tablet 60 mg PO 6XD RF: 0 ondansetron HCl [Zofran] 4 mg tablet 4 mg PO Q8H PRN (Reason: nausea and vomiting) Qty: 10 RF: 0 hydrocodone-acetaminophen 5-325 mg tablet 1 tab PO Q4-6H PRN (Reason: pain) Qty: 10 RF: 0 ondansetron 4 mg tablet,disintegrating 4 mg PO Q6H PRN (Reason: nausea and vomiting) Qty: 14 RF: 0 ondansetron 4 mg tablet,disintegrating 4 mg PO Q6H PRN (Reason: nausea and vomiting) Qty: 14 RF: 0 Referrals: Doris Schreiber ARNP [Primary Care Provider] -
[2020-09-29 22:11] LABS: Alanine Aminotransferase 19 IU/L (<35); Albumin 4.2 g/dL (3.5-5.0); Albumin Globulin Ratio 1.6 (1.0-2.8); Alkaline Phosphatase 121 U/L (38-126); Aspartate Aminotransferase 23 IU/L (14-36); BUN Creatinine Ratio 16.4 (6-22); Bilirubin Total 0.4 mg/dL (0.2-1.3); Blood Urea Nitrogen 11 mg/dL (7-17); Calcium 9.8 mg/dL (8.4-10.2); Carbon Dioxide 26 mmol/L (22-32); Chloride 100 mmol/L (98-107); Estimated Glomerular Filt Rate > 60.0 mL/min (>60); Globulin 2.7 g/dL (1.7-4.1); Glucose 143 mg/dL (80-110); HEMOLYSIS < 15 (0-50); Lipase 133 U/L (23-300); Potassium 3.4 mmol/L (3.4-5.1); Sodium 134 mmol/L (137-145); Total Protein 6.9 g/dL (6.3-8.2)
[2020-09-29] MEDS: SODIUM CHLORIDE 0.9% 1,000 ML 1000 ML IV (22:18)
--- NOTE | 2020-09-29 22:19 | DI.CT.S_ITS ---
PROCEDURE: CT ABDOMEN PELVIS W CON INDICATIONS: severe RLQ and R flank pain TECHNIQUE: After the administration of intravenous contrast, 5 mm thick sections acquired from the diaphragm to the symphysis. 5 mm coronal and sagittal reformats were acquired. For radiation dose reduction, the following was used: automated exposure control, adjustment of mA and/or kV according to patient size. COMPARISON: [facility], CT, CT ABDOMEN PELVIS W CON, 01/15/2020, 11:57. [facility], CT, CT ABDOMEN PELVIS W CON, 08/21/2020, 15:07. FINDINGS: Image quality: Excellent. ABDOMEN: Lung bases: Mild basilar atelectasis. Lung bases are otherwise clear. There is a very small hiatal hernia. Fluid is noted within the distal esophagus. There is likely mild circumferential wall thickening, similar to the prior exams. Heart size is normal. Solid organs: Liver is normal in size and enhancement. Gallbladder is surgically absent. Biliary system is prominent, likely within normal limits given surgical status. 1.0 centimeter likely cystic lesion within the body of the pancreas is stable dating back to at least 01/15/2020 Spleen is normal in size and enhancement. Stable appearance of the left 1.3 centimeter adrenal nodule and 1.1 centimeter right adrenal nodule dating back to at least 01/15/2020. Kidneys demonstrate normal size and enhancement, without hydronephrosis. Stable simple renal cysts. Peritoneum and bowel: Small hiatal hernia. The stomach is otherwise unremarkable. The small bowel are unremarkable without evidence of obstruction. The appendix is normal. There is colonic diverticula most prominent within the sigmoid colon. There is an approximate 10 centimeter stretch of inflammation surrounding the sigmoid colon and multiple diverticula within the pelvis with adjacent wall thickening. No pneumoperitoneum or focal fluid collection. Nodes and vessels: No retroperitoneal or mesenteric adenopathy by size criteria. Aorta and inferior vena cava are normal in size. Miscellaneous: No ventral hernias. PELVIS: Genitourinary: Bladder wall thickness is normal. Miscellaneous: Large fat and small bowel containing right inguinal hernia, similar prior examination. No adjacent wall thickening of the bowel or surrounding inflammation to suggest complication. Bones: Stable fluid density lesion within the sacrum widening the spinal canal. This likely represents Tarlov cysts versus arachnoid cyst. Degenerative changes of the spine. No acute osseous abnormality or aggressive appearing osseous lesion. No vertebral body compression fractures. IMPRESSION: Findings most consistent with acute uncomplicated sigmoid diverticulitis. Given multiple episodes in it, consider surgical referral and correlation with recent colonoscopy. 1.0 centimeter likely cystic lesion within the body of the pancreas is stable dating back to at least 01/15/2020, per ACR guidelines, recommend follow-up in approximately 2 years with dedicated pancreatic protocol MRI or CT. Stable adrenal nodules. Additional chronic findings as above. Agree with preliminary report. Dictated by: Sachin Plunkett D.O. on 09/30/2020 at 7:58 Approved by: Sachin Plunkett D.O. on 09/30/2020 at 8:16
[2020-09-29] MEDS: KETOROLAC 30 MG/ML VIAL 15 MG IV (23:37)
== END 2020-09-30 | disposition home or self-care (01) ==
PROVIDERS: Emergency Medicine; Emergency Provider Emergency Medicine; Family Provider Nurse Practitioner; PCP Nurse Practitioner
DX: K57.92 Diverticulitis of intestine, part unspecified, without perforation or abscess without bleeding (principal)
CPT/HCPCS: 36415; 74177; 80053; 81003; 83690; 85025; 85610; 85730; 93005; 96361; 96374; 96375; 99284; J1885; J2405; Q9967

== ENCOUNTER 2020-10-13 06:12 | Emergency (ER) | payer MEDICARE, BC, SELFPAY ==
[2020-10-04 13:43] VITALS: BMI 33.3
[2020-10-13 06:23] VITALS: BP 164/86; PULSE 64; RESP 17; TEMP 36.6; O2SAT 100; BMI 31.5
--- NOTE | 2020-10-13 06:34 | ED_ITS ---
HPI - General Adult General Chief complaint: Abdominal Pain Stated complaint: Lower abd pain Time Seen by Provider: 10/13/20 06:14 Source: patient Mode of arrival: Ambulatory Limitations: no limitations History of Present Illness HPI narrative: 70-year-old female with a history of diverticulitis who has been seen multiple times the past several weeks for right-sided abdominal discomfort. I saw her several weeks ago in after an extensive discussion we decided to treat her empirically with antibiotics and hold on any CT scans. She was sent home on Augmentin. She completed the course of this and continued to have discomfort and was seen here again in the emergency department by another provider. At that visit she had a CT scan performed which did show uncomplicated diverticulitis. She was started on a 2nd round of Augmentin. Since that visit she has seen her primary provider for continued pain. She c ompleted the 2nd round of antibiotics earlier this week however about a day before the finish of these antibiotic she had a return of the right-sided abdominal pain. Some nausea but no vomiting. Has had some chills but no fevers. No change in her bowel habits. No urinary symptoms. She stated that she talked with her GI provider who thought that she ought to come in to be evaluated. She is also talk with her neurologist. She does not have a definitive diagnosis of my standing gravis but there is concern for this. Patient states that her neurologist told her that if her symptoms were not getting better and because there was not a definitive diagnosis of by stay any a that if she needed to be started on a fluoroquinolone that it would not be unreasonable to do so. Related Data Home Medications Medication Instructions Recorded Confirmed [turmeric] 1,000 mg PO DAILY #0 05/17/16 08/28/20 aspirin 81 mg PO QPM #0 01/25/17 08/28/20 Rose Bud 3 690 mg PO .QDAY 09/16/19 08/28/20 Psyllium fiber 12 mg PO .QDAY 09/16/19 08/28/20 alpha lipoic acid 600 mg PO .QDAY 09/16/19 08/28/20 pyridostigmine bromide 60 mg tablet 60 mg PO 6XD tab 08/09/20 08/28/20 Previous Rx's Medication Instructions Recorded miscellaneous medical supply 1 each .ROUTE .COMPLEX #1 each 08/23/19 hydrochlorothiazide 50 mg tablet 50 mg PO DAILY #90 tab 11/23/19 losartan 100 mg tablet 100 mg PO DAILY #90 tab 11/23/19 aripiprazole 20 mg tablet See Rx Instructions .ROUTE 02/17/20 .COMPLEX #45 tab promethazine 12.5 mg tablet 12.5 mg PO Q6H PRN #20 tab 07/27/20 ondansetron HCl [Zofran] 4 mg PO Q8H PRN #10 tab 08/06/20 ondansetron 4 mg PO Q6H PRN #14 tab 08/21/20 ondansetron 4 mg PO Q6H PRN #14 tab 09/23/20 amoxicillin-pot clavulanate 1 tab PO BID #20 tab 09/29/20 [Augmentin] ketorolac 10 mg PO Q6H PRN #14 tab 09/29/20 tramadol 50 mg tablet 50 mg PO Q8H PRN #20 tab 10/02/20 metronidazole [Flagyl] 500 mg PO TID 10 Days #30 tab 10/13/20 sulfamethoxazole-trimethoprim 1 tab PO BID 10 Days #20 tab 10/13/20 [Bactrim DS] Allergies Allergy/AdvReac Type Severity Reaction Status Date / Time cimetidine [From TAGAMET] Allergy Mild hallucinati Verified 09/29/20 21:25 ons codeine [CODEINE] Allergy Mild hallucinati Verified 09/29/20 21:25 ons lisinopril [LISINOPRIL] Allergy Mild cough/GI Verified 09/29/20 21:25 issues ranitidine [From ZANTAC] Allergy Mild hallucinati Verified 09/29/20 21:25 ons Review of Systems Constitutional Constitutional: Reports chills and Denies fever(s) Cardiovascular Cardiovascular: Reports system reviewed and no additional complaints, except as documented Respiratory Respiratory: Reports system reviewed and no additional complaints, except as documented Gastrointestinal Gastrointestinal: Reports abdominal pain, Denies change in bowel habits, Reports nausea and Denies vomiting Genitourinary Genitourinary: Denies dysuria Genitourinary: Denies dysuria Musculoskeletal Musculoskeletal: Reports system reviewed and no additional complaints, except as documented Integumentary/Breasts Skin/Breast: Denies rash Neurologic Neurologic: Reports system reviewed and no additional complaints, except as documented Psychiatric Psychiatric: Reports system reviewed and no additional complaints, except as documented Endocrine Endocrine: Reports system reviewed and no additional complaints, except as documented Hematologic/Lymphatic On Anticoagulants: No Allergic/Immunologic Allergic/Immunologic: Reports system reviewed and no additional complaints, except as documented Patient History Medical History Abdominal pain Activity intolerance Acute pancreatitis Anemia Anosmia Atypical chest pain Cervical dystonia (1986) Chicken pox (1956) Cholecystectomy planned Chronic fatigue (08/07/15) Colon polyps Cough CTS (carpal tunnel syndrome) (1986) Denervation of muscle Depression (1974) Diastasis of rectus abdominis (08/07/15) Dyspnea Dyspnea Dyspnea on exertion Episodic lightheadedness Fatigue Gastritis Generalized abdominal pain (08/07/15) Headache Hyperlipidemia Hypertension Itch of skin Measles (1957) Metallic taste (10/11/15) Mumps (1958) Neoplasm of uncertain behavior of skin (10/11/15) NSAID induced gastritis Osteopenia after menopause Peripheral neuropathy (2012) Piriformis syndrome of right side Progressive neurological disorder Right hip pain Shortness of breath (08/27/15) Sjogren's syndrome (2012) Skin cancer (2015) Sleep apnea (2009) Small fiber polyneuropathy SOB (shortness of breath) (2010) Status post DANILO-BSO Visual disturbance Surgical History Anesthesia complication History of carpal tunnel repair (1989) History of cervical spinal surgery (07/2008) History of laparoscopic cholecystectomy (2006) S/P DANILO-BSO (total abdominal hysterectomy and bilateral salpingo-oophorectomy) (01/2007) Status post hernia repair (2013) Status post hernia repair (2007) Family History Brother Age: 63 Prostate cancer Heart disease Hypertension High cholesterol Heart attack Brother Age: 61 Hypertension Mental health problem Kidney transplant recipient Chronic kidney disease with end stage renal failure on dialysis Father Colon cancer Heart disease Mental health problem Heart failure Grandfather Heart disease Hypertension Brain aneurysm Mother Cancer Hypertension NHL (non-Hodgkin's lymphoma) Grandmother Stroke Sister Age: 69 Celiac disease High cholesterol Mental health problem Thyroid disorder Sister Age: 65 Psoriatic arthritis Thyroid disorder Grandmother Alzheimer's disease Grandfather Colon cancer Sister Breast cancer Sister Suicide Brother No problems noted. Sister Thyroid disorder Social History marital status: household members: spouse occupational status: previously employed Smoking Status: Never smoker alcohol intake: current substance use type: does not use Smoking Status: Never smoker alcohol intake frequency: holidays/special occasions only Substance Use Type: does not use Exam Initial Vital Signs Initial Vital Signs: Vital Signs Temperature 98 F 10/13/20 06:23 Pulse Rate 64 10/13/20 06:23 Respiratory Rate 17 10/13/20 06:23 Blood Pressure 164/86 H 10/13/20 06:23 Pulse Oximetry 100 10/13/20 06:23 Const General: cooperative and comfortable Limitations: mental status not altered HENMT Head: normal to inspection and normocephalic Resp Effort & Inspection: normal respiratory effort Cardio Rate: regular rate GI Inspection: non-distended Palpation: soft, No firm and tender (Right-sided abdomen) Skin Lesions: no lesions Rashes: no rashes Neuro General: patient alert, patient awake and patient oriented x3 Cognition: normal cognition Speech: speech normal Extrem General: normal to inspection and capillary refill normal Psych Appearance: grossly normal and well kempt Course Orders Ordered: ED Orders 10/13/20 06:20 Complete Blood Count AUTO DIFF Stat Comprehensive Metabolic Panel Stat Lactate (Lactic Acid) Stat Lipase Stat Discontinued Medications Metronidazole (Metronidazole 500 Mg Tablet) 500 mg PO NOW ONE Stop: 10/13/20 07:12 Trimethoprim/Sulfamethoxazole (Trimeth/Sulfa 160/800 (Ds) Tablet) 1 tab PO NOW ONE Stop: 10/13/20 07:12 Vital Signs Vital signs: Vital Signs - 8 hr 10/13/20 06:23 Temperature 98 F Pulse Rate 64 Respiratory Rate 17 Blood Pressure 164/86 H Pulse Oximetry 100 Medical Decision Making Lab Data Lab results reviewed: Yes I reviewed the patient's lab results. Result diagrams: 10/13/20 06:20 10/13/20 06:20 Labs: Lab Results 10/13/20 10/13/20 10/13/20 Range/Units 06:20 06:20 06:20 WBC 5.5 (4.5-11.0) X10^3/uL RBC 4.32 (4.0-5.2) X10^6/uL Hgb 11.8 L (12.0-16.0) g/dL Hct 36.1 (36-46) % MCV 83.6 (80-100) fL MCH 27.4 (26-34) PG MCHC 32.7 (30-36) % RDW 14.0 (11.6-14.8) % Plt Count 288 (150-400) X10^3/uL Neut % (Auto) 59.0 (50-75) % Lymph % (Auto) 26.5 (25-40) % [place] % (Auto) 9.0 (3-14) % Eos % (Auto) 4.4 H (2-4) % Baso % (Auto) 1.1 (0-2) % Neut # (Auto) 3200 (0446-3764) /uL Lymph # (Auto) 1400 (9549-9972) /uL [place] # (Auto) 500 (0-900) /uL Eos # (Auto) 200 (0-450) /uL Baso # (Auto) 100 (0-100) /uL Sodium 131 L (137-145) mmol/L Potassium 3.7 (3.4-5.1) mmol/L Chloride 98 (98-107) mmol/L Carbon Dioxide 27 (22-32) mmol/L BUN 14 (7-17) mg/dL Creatinine 0.89 (0.52-1.04) mg/dL Estimated GFR > 60.0 (>60) mL/min BUN/Creatinine Ratio 15.7 (6-22) Glucose 103 (80-110) mg/dL Lactate 1.4 (0.7-2.1) mmol/L Calcium 10.0 (8.4-10.2) mg/dL Total Bilirubin 0.4 (0.2-1.3) mg/dL AST 23 (14-36) IU/L ALT 20 (<35) IU/L Alkaline Phosphatase 122 (38-126) U/L Total Protein 7.1 (6.3-8.2) g/dL Albumin 4.4 (3.5-5.0) g/dL Globulin 2.7 (1.7-4.1) g/dL Albumin/Globulin Ratio 1.6 (1.0-2.8) Lipase 135 (23-300) U/L MDM Narrative Medical decision making narrative: 7-year-old female with a longstanding history of diverticulitis. Has had a CT scan within the past couple weeks that confirmed diverticulitis. She comes the emergency department today with the same symptoms potentially slightly worse and having some chills however is afebrile, not tachycardic, no leukocytosis, no left shift, normal lactate. Has a relatively benign abdominal exam. After discussion with her and her the plan will be is to hold on further CT scan. There has been avoidance of fluoroquinolones given her presumed diagnosis of myasthenia gravis however she has essentially failed 2 courses of Augmentin. Plan will be is to place the patient on Bactrim and Flagyl. This should treat her diverticulitis in avoid the fluoroquinolones. She agreed to this plan. Was given 1st dose of antibiotics here in the emergency department. She expressed understanding and agreement. Discharge Plan Departure Patient Disposition: Home Clinical Impression: Diverticulitis, Abdominal pain Instructions: DI for Diverticulitis Activity Restrictions/Additional Instructions: Take the antibiotics as directed. Be sure to contact your GI provider for a follow-up and also your primary provider. Return to the emergency department for any new or worsening symptoms Prescriptions: New sulfamethoxazole-trimethoprim [Bactrim DS] 800-160 mg tablet 1 tab PO BID 10 Days Qty: 20 RF: 0 metronidazole [Flagyl] 500 mg tablet 500 mg PO TID 10 Days Qty: 30 RF: 0 No Action [turmeric] 1,000 mg PO DAILY Qty: 0 RF: 0 aspirin 81 MG tablet,delayed release (DR/EC) 81 mg PO QPM Qty: 0 RF: 0 miscellaneous medical supply Misc 1 each .ROUTE .COMPLEX Qty: 1 RF: 0 losartan 100 mg tablet 100 mg PO DAILY Qty: 90 RF: 3 hydrochlorothiazide 50 mg tablet 50 mg PO DAILY Qty: 90 RF: 3 aripiprazole 20 mg tablet See Rx Instructions .ROUTE .COMPLEX Qty: 45 RF: 2 tramadol 50 mg tablet 50 mg PO Q8H PRN (Reason: pain) Qty: 20 RF: 1 promethazine 12.5 mg tablet 12.5 mg PO Q6H PRN (Reason: nausea) Qty: 20 RF: 2 alpha lipoic acid 600 mg 600 mg PO .QDAY RF: 0 Psyllium fiber 12 mg 12 mg PO .QDAY RF: 0 Rose Bud 3 690 mg 690 mg PO .QDAY RF: 0 pyridostigmine bromide 60 mg tablet 60 mg PO 6XD RF: 0 ondansetron HCl [Zofran] 4 mg tablet 4 mg PO Q8H PRN (Reason: nausea and vomiting) Qty: 10 RF: 0 ondansetron 4 mg tablet,disintegrating 4 mg PO Q6H PRN (Reason: nausea and vomiting) Qty: 14 RF: 0 ondansetron 4 mg tablet,disintegrating 4 mg PO Q6H PRN (Reason: nausea and vomiting) Qty: 14 RF: 0 amoxicillin-pot clavulanate [Augmentin] 875-125 mg tablet 1 tab PO BID Qty: 20 RF: 0 ketorolac 10 mg tablet 10 mg PO Q6H PRN (Reason: pain) Qty: 14 RF: 0 Referrals: Doris Schreiber ARNP [Primary Care Provider] -
[2020-10-13 06:47] LABS: Add Manual Diff / Slide Review NO; Basophils Absolute Auto 100 /uL (0-100); Basophils Percent Auto 1.1 % (0-2); Eosinophils Absolute Auto 200 /uL (0-450); Eosinophils Percent Auto 4.4 % (2-4); Hematocrit 36.1 % (36-46); Hemoglobin 11.8 g/dL (12.0-16.0); Lymphocytes Absolute Auto 1400 /uL (1100-4500); Lymphocytes Percent Auto 26.5 % (25-40); Mean Corpuscular HGB Conc 32.7 % (30-36); Mean Corpuscular Hemoglobin 27.4 PG (26-34); Mean Corpuscular Volume 83.6 fL (80-100); Monocytes Absolute Auto 500 /uL (0-900); Neutrophils Absolute Auto 3200 /uL (1500-7000); Platelet Count 288 X10^3/uL (150-400); Red Blood Cell Count 4.32 X10^6/uL (4.0-5.2); White Blood Cell Count 5.5 X10^3/uL (4.5-11.0)
[2020-10-13 06:59] LABS: Alanine Aminotransferase 20 IU/L (<35); Albumin 4.4 g/dL (3.5-5.0); Albumin Globulin Ratio 1.6 (1.0-2.8); Alkaline Phosphatase 122 U/L (38-126); Aspartate Aminotransferase 23 IU/L (14-36); BUN Creatinine Ratio 15.7 (6-22); Bilirubin Total 0.4 mg/dL (0.2-1.3); Blood Urea Nitrogen 14 mg/dL (7-17); Carbon Dioxide 27 mmol/L (22-32); Chloride 98 mmol/L (98-107); Estimated Glomerular Filt Rate > 60.0 mL/min (>60); Globulin 2.7 g/dL (1.7-4.1); Glucose 103 mg/dL (80-110); HEMOLYSIS < 15 (0-50); Lactate (Lactic Acid) 1.4 mmol/L (0.7-2.1); Lipase 135 U/L (23-300); Potassium 3.7 mmol/L (3.4-5.1); Sodium 131 mmol/L (137-145); Total Protein 7.1 g/dL (6.3-8.2)
[2020-10-13] MEDS: metroNIDAZOLE 500 MG TABLET PO (07:32)
[2020-10-13] MEDS: TRIMETH/SULFA 160/800 (DS) TABLET 1 TAB PO (07:32)
[2020-10-13 07:51] VITALS: BP 121/65; PULSE 52; RESP 12; O2SAT 99
== END 2020-10-13 07:52 | disposition home or self-care (01) ==
PROVIDERS: Emergency Provider Emergency Medicine; Family Provider Nurse Practitioner; PCP Nurse Practitioner
DX: K57.92 Diverticulitis of intestine, part unspecified, without perforation or abscess without bleeding (principal); R10.9 Unspecified abdominal pain; R11.0 Nausea
CPT/HCPCS: 36415; 80053; 83605; 83690; 85025; 99284

== ENCOUNTER 2020-10-21 07:01 | Emergency (ER) | payer MEDICARE, BC, SELFPAY ==
[2020-10-04 13:43] VITALS: BMI 33.3
[2020-10-21 07:10] VITALS: BP 140/95; PULSE 70; RESP 14; TEMP 36.6; O2SAT 99; BMI 32.2
--- NOTE | 2020-10-21 07:17 | ED.ABDPAIN ---
HPI - Abdominal Pain General Chief Complaint: Abdominal Pain Stated Complaint: stomach pain/chills Time Seen by Provider: 10/21/20 07:11 Source: patient, family () and old records reviewed Mode of arrival: Ambulatory Limitations: no limitations History of Present Illness HPI narrative: This is a 70-year-old female comes to the emergency department with complaint of right lower quadrant abdominal pain soon present intermittently for the past several weeks. Patient has had diverticulitis noted on her CT imaging in the right lower abdomen and has had 2 courses of Augmentin, Flagyl and Bactrim which was then switched to Flagyl and Cipro 5 days ago. Patient had some mild improvement with the Flagyl and Cipro but her pain has once again reoccurred. She states it became significantly worse starting at 2:00 a.m. this morning and she has not been able to sleep since then. She has not had any fevers but has felt chilled. She has had nausea but no active vomiting. She states that she has had her pain shift from just the right lower quadrant to little bit of suprapubic. She had some improvement over the last couple days but has since worsened again. She states walking and movement make it significantly worse. She denies any dysuria, urgency or frequency. She denies any vaginal bleeding or discharge. She has had soft bowel movements but noted that they seem black in coloration the past 2 days. She states this feels similar to her prior diverticulosis. Patient does take an aspirin daily, medication for hypertension as well as mood. She states she has been in the process of being worked up for myasthenia gravis, she has been told by her neurologist and her most recent testing that she is less likely to have it but she is not totally completed her workup. Her neurologist did tell her that she could take a fluoroquinolone if absolutely necessary after her most recent testing. Patient has had a total hysterectomy with bilateral oophorectomy, cholecystectomy and laparoscopic hernia repair. She states that codeine causes her to have hallucinations. She is accompanied by her . Dorisshaun schreiber is her primary care. Related Data Home Medications Medication Instructions Recorded Confirmed [turmeric] 1,000 mg PO DAILY #0 05/17/16 10/16/20 aspirin 81 mg PO QPM #0 01/25/17 10/16/20 [place] 3 690 mg PO .QDAY 09/16/19 10/16/20 Psyllium fiber 12 mg PO .QDAY 09/16/19 10/16/20 alpha lipoic acid 600 mg PO .QDAY 09/16/19 10/16/20 pyridostigmine bromide 60 mg tablet 60 mg PO 6XD tab 08/09/20 10/16/20 cholecalciferol (vitamin D3) 10 10 mcg PO DAILY 10/16/20 10/16/20 mcg (400 unit) capsule ciprofloxacin HCl 500 mg tablet 500 mg PO BID 10/17/20 Previous Rx's Medication Instructions Recorded miscellaneous medical supply 1 each .ROUTE .COMPLEX #1 each 08/23/19 hydrochlorothiazide 50 mg tablet 50 mg PO DAILY #90 tab 11/23/19 losartan 100 mg tablet 100 mg PO DAILY #90 tab 11/23/19 aripiprazole 20 mg tablet See Rx Instructions .ROUTE 02/17/20 .COMPLEX #45 tab promethazine 12.5 mg tablet 12.5 mg PO Q6H PRN #20 tab 07/27/20 ondansetron HCl [Zofran] 4 mg PO Q8H PRN #10 tab 08/06/20 ondansetron 4 mg PO Q6H PRN #14 tab 08/21/20 ondansetron 4 mg PO Q6H PRN #14 tab 09/23/20 amoxicillin-pot clavulanate 1 tab PO BID #20 tab 09/29/20 [Augmentin] ketorolac 10 mg PO Q6H PRN #14 tab 09/29/20 tramadol 50 mg tablet 50 mg PO Q8H PRN #20 tab 10/02/20 metronidazole [Flagyl] 500 mg PO TID 10 Days #30 tab 10/13/20 ciprofloxacin HCl 500 mg PO BID #14 tab 10/21/20 meloxicam [Mobic] 7.5 mg PO DAILY PRN #10 tab 10/21/20 metronidazole [Flagyl] 500 mg PO TID #27 tab 10/21/20 ondansetron 4 mg PO QID PRN #7 tab 10/21/20 Allergies Allergy/AdvReac Type Severity Reaction Status Date / Time cimetidine [From [facility]] Allergy Mild hallucinati Verified 09/29/20 21:25 ons codeine [CODEINE] Allergy Mild hallucinati Verified 09/29/20 21:25 ons lisinopril [LISINOPRIL] Allergy Mild cough/GI Verified 09/29/20 21:25 issues ranitidine [From [facility]] Allergy Mild hallucinati Verified 09/29/20 21:25 ons prednisone Allergy Unknown Verified 10/16/20 09:38 Review of Systems Review of Systems ROS Unobtainable: All systems reviewed & are unremarkable except as noted in HPI and below Patient History Medical History Abdominal pain Activity intolerance Acute pancreatitis Anemia Anosmia Atypical chest pain Cervical dystonia (1986) Chicken pox (1956) Cholecystectomy planned Chronic fatigue (08/07/15) Colon polyps Cough CTS (carpal tunnel syndrome) (1986) Denervation of muscle Depression (1974) Diastasis of rectus abdominis (08/07/15) Dyspnea Dyspnea Dyspnea on exertion Episodic lightheadedness Fatigue Gastritis Generalized abdominal pain (08/07/15) Headache Hyperlipidemia Hypertension Itch of skin Measles (1957) Metallic taste (10/11/15) Mumps (1958) Neoplasm of uncertain behavior of skin (10/11/15) NSAID induced gastritis Osteopenia after menopause Peripheral neuropathy (2012) Piriformis syndrome of right side Progressive neurological disorder Right hip pain Shortness of breath (08/27/15) Sjogren's syndrome (2012) Skin cancer (2015) Sleep apnea (2009) Small fiber polyneuropathy SOB (shortness of breath) (2010) Status post DANILO-BSO Visual disturbance Surgical History Anesthesia complication History of carpal tunnel repair (1989) History of cervical spinal surgery (07/2008) History of laparoscopic cholecystectomy (2006) S/P DANILO-BSO (total abdominal hysterectomy and bilateral salpingo-oophorectomy) (01/2007) Status post hernia repair (2013) Status post hernia repair (2007) Family History Brother Age: 63 Prostate cancer Heart disease Hypertension High cholesterol Heart attack Brother Age: 61 Hypertension Mental health problem Kidney transplant recipient Chronic kidney disease with end stage renal failure on dialysis Father Colon cancer Heart disease Mental health problem Heart failure Grandfather Heart disease Hypertension Brain aneurysm Mother Cancer Hypertension NHL (non-Hodgkin's lymphoma) Grandmother Stroke Sister Age: 69 Celiac disease High cholesterol Mental health problem Thyroid disorder Sister Age: 65 Psoriatic arthritis Thyroid disorder Grandmother Alzheimer's disease Grandfather Colon cancer Sister Breast cancer Sister Suicide Brother No problems noted. Sister Thyroid disorder Social History marital status: household members: spouse occupational status: previously employed Smoking Status: Never smoker alcohol intake: current substance use type: does not use Smoking Status: Never smoker alcohol intake frequency: holidays/special occasions only Substance Use Type: does not use Exam Narrative Exam Narrative: GENERAL: Alert and oriented x three, well-nourished female in mild distress. HEENT: Head normocephalic, atraumatic, EOMI, pupils reactive, face symmetric, moist mucous membranes NECK: Supple, full range of motion CARDIOVASCULAR: Regular rate and rhythm without murmurs, rubs or gallops. RESPIRATORY: Breath sounds equal bilaterally, no wheezes rales or rhonchi. ABDOMEN: Soft, mild right lower quadrant tenderness. Normoactive bowel sounds all 4 quadrants. No guarding or rebound, rigidity, no mass, nondistended. MARSHA is exam shows small external which is nontender. Stool occult is negative with no other mass, tenderness or changes noted on exam. : No CVA tenderness EXTREMITIES: Normal range of motion. Neurovascularly intact NEUROLOGICAL: Cranial nerves II through XII grossly intact. Moving all extremities SKIN: Warm, dry, no petechiae, no rashes or lesions. Initial Vital Signs Initial Vital Signs: Vital Signs Temperature 97.8 F 10/21/20 07:10 Pulse Rate 70 10/21/20 07:10 Respiratory Rate 14 10/21/20 07:10 Blood Pressure 140/95 H 10/21/20 07:10 Pulse Oximetry 99 10/21/20 07:10 Course Orders Ordered: ED Orders 10/21/20 07:28 Complete Blood Count AUTO DIFF Stat Comprehensive Metabolic Panel Stat Lipase Stat Procalcitonin Stat 10/21/20 08:04 CT abdomen pelvis w con Stat 10/21/20 08:35 Urine Microscopic Stat 10/21/20 08:45 COVID19 - ADMIT (BOTTLE LABELER swab/PCR) Stat Discontinued Medications Sodium Chloride (Normal Saline 0.9%) 1,000 mls @ 1,000 mls/hr IV BOLUS ONE Stop: 10/21/20 08:42 Last Admin: 10/21/20 07:59 Dose: 1,000 mls/hr Documented by: APRIL Ketorolac Tromethamine (Ketorolac 30 Mg/Ml Vial) 15 mg IV NOW ONE Stop: 10/21/20 07:44 Last Admin: 10/21/20 08:04 Dose: 15 mg Documented by: APRIL Ondansetron HCl (Ondansetron 4 Mg/2 Ml Inj) 4 mg IV NOW ONE Stop: 10/21/20 07:44 Last Admin: 10/21/20 08:04 Dose: 4 mg Documented by: APRIL Reevaluation(s) Reevaluation #1: Patient feels improved at this time. We reviewed her CT imaging. Also as well general surgery recommendations which she is familiar with. She had a course for 7 days of Cipro and this was extended an additional 7 as per General surgery recommendations from their note. Patient is also does not have enough medication for full 14 days of Flagyl and was extended as well. Discussed Zofran as needed for nausea. We also discussed patient should not be drinking any alcohol with Flagyl will make her vomit. She prefers to avoid narcotics, we discussed she can do Mobic but there is risk for harm to her as well as ulcers and if she can downgrade to and ibuprofen/Tylenol this to be improved but can take for short term. All questions were answered. Time: 09:19 Vital Signs Vital signs: Vital Signs - 8 hr 10/21/20 07:10 10/21/20 09:31 Temperature 97.8 F Pulse Rate 70 56 L Respiratory Rate 14 24 Blood Pressure 140/95 H 134/65 Pulse Oximetry 99 99 MDM - Abdominal Pain Lab Data Attestation: I reviewed the patient's lab results. Result diagrams: 10/21/20 07:28 10/21/20 07:28 Labs: Lab Results 10/21/20 10/21/20 10/21/20 Range/Units 07:28 07:28 07:28 WBC 5.7 (4.5-11.0) X10^3/uL RBC 4.19 (4.0-5.2) X10^6/uL Hgb 11.4 L (12.0-16.0) g/dL Hct 35.1 L (36-46) % MCV 83.8 (80-100) fL MCH 27.1 (26-34) PG MCHC 32.4 (30-36) % RDW 14.4 (11.6-14.8) % Plt Count 269 (150-400) X10^3/uL Neut % (Auto) 59.1 (50-75) % Lymph % (Auto) 27.0 (25-40) % [place] % (Auto) 7.7 (3-14) % Eos % (Auto) 4.9 H (2-4) % Baso % (Auto) 1.3 (0-2) % Neut # (Auto) 3400 (2566-8302) /uL Lymph # (Auto) 1500 (8111-8664) /uL Robeson # (Auto) 400 (0-900) /uL Eos # (Auto) 300 (0-450) /uL Baso # (Auto) 100 (0-100) /uL Sodium 130 L (137-145) mmol/L Potassium 3.5 (3.4-5.1) mmol/L Chloride 98 (98-107) mmol/L Carbon Dioxide 24 (22-32) mmol/L BUN 11 (7-17) mg/dL Creatinine 0.80 (0.52-1.04) mg/dL Estimated GFR > 60.0 (>60) mL/min BUN/Creatinine Ratio 13.8 (6-22) Glucose 95 (80-110) mg/dL Calcium 9.5 (8.4-10.2) mg/dL Total Bilirubin 0.2 (0.2-1.3) mg/dL AST 26 (14-36) IU/L ALT 22 (<35) IU/L Alkaline Phosphatase 103 (38-126) U/L Total Protein 6.8 (6.3-8.2) g/dL Albumin 4.2 (3.5-5.0) g/dL Globulin 2.6 (1.7-4.1) g/dL Albumin/Globulin Ratio 1.6 (1.0-2.8) Lipase 148 (23-300) U/L Procalcitonin 0.04 (<0.5) ng/mL Urine RBC (0-5/HPF) Urine WBC (0-5/HPF) Urine Bacteria (None) Ur Culture Indicated? 10/21/20 Range/Units 08:35 WBC (4.5-11.0) X10^3/uL RBC (4.0-5.2) X10^6/uL Hgb (12.0-16.0) g/dL Hct (36-46) % MCV (80-100) fL MCH (26-34) PG MCHC (30-36) % RDW (11.6-14.8) % Plt Count (150-400) X10^3/uL Neut % (Auto) (50-75) % Lymph % (Auto) (25-40) % Robeson % (Auto) (3-14) % Eos % (Auto) (2-4) % Baso % (Auto) (0-2) % Neut # (Auto) (1506-3555) /uL Lymph # (Auto) (4119-0262) /uL Robeson # (Auto) (0-900) /uL Eos # (Auto) (0-450) /uL Baso # (Auto) (0-100) /uL Sodium (137-145) mmol/L Potassium (3.4-5.1) mmol/L Chloride (98-107) mmol/L Carbon Dioxide (22-32) mmol/L BUN (7-17) mg/dL Creatinine (0.52-1.04) mg/dL Estimated GFR (>60) mL/min BUN/Creatinine Ratio (6-22) Glucose (80-110) mg/dL Calcium (8.4-10.2) mg/dL Total Bilirubin (0.2-1.3) mg/dL AST (14-36) IU/L ALT (<35) IU/L Alkaline Phosphatase (38-126) U/L Total Protein (6.3-8.2) g/dL Albumin (3.5-5.0) g/dL Globulin (1.7-4.1) g/dL Albumin/Globulin Ratio (1.0-2.8) Lipase (23-300) U/L Procalcitonin (<0.5) ng/mL Urine RBC 0-1/hpf (0-5/HPF) Urine WBC None seen (0-5/HPF) Urine Bacteria Occasional (0-1) (None) Ur Culture Indicated? Cult not indicated Point of care testing: Point of Care Testing Stool Occult Blood Negative Urine Dip Bedside Urine Glucose Negative Bedside Urine Bilirubin - Negative Bedside Urine Ketone - Negative Urine Specific [place] 1.010 Bedside Urine Occult Blood + Bedside Urine pH 7.0 Bedside Urine Protein - Negative Bedside Urine Urobilinogen - Negative Bedside Urine Nitrite - Negative Imaging Data CT scan - abdomen/pelvis: Radiologist's Impression: [address] [id number] Scan ReportSigned Patient: Elizabeth Maravilla [facility]#: [id number]: 1950Acct:[id number]/Sex: 70 / FDate of Service: 10/21/20Loc: EDAccession Number: [id number] Procedure: CT abdomen pelvis w con Ordering Provider: Yina Madrigal D.O. PROCEDURE: CT ABDOMEN PELVIS W CON INDICATIONS: RLQ pain, diveriticulitis in seen on CT in September TECHNIQUE: After the administration of intravenous contrast, 5 mm thick sections acquired from the diaphragm to the symphysis. 5 mm coronal and sagittal reformats were acquired. For radiation dose reduction, the following was used: automated exposure control, adjustment of mA and/or kV according to patient size. COMPARISON: [facility], CT, CT ABDOMEN PELVIS W CON, 09/29/2020, 22:26. [facility], CT, CT ABDOMEN PELVIS W CON, 08/21/2020, 15:07. [facility], CT, CT ABDOMEN PELVIS W CON, 07/24/2020, 17:53. FINDINGS: Image quality: Excellent. ABDOMEN: Lung bases: Lung bases are clear. Heart size is normal. Solid organs: Liver is normal in size and enhancement. Gallbladder has been removed. Biliary system is non dilated. There is a 1 cm cystic focus again seen involving the head of the pancreas. Spleen is normal in size and enhancement. There are stable bilateral adrenal nodules. Kidneys demonstrate normal size and enhancement, without hydronephrosis. There is an exophytic left renal cyst seen that measures 1.5 cm. Peritoneum and bowel: In this patient with this given history, scrutiny is given to the appendix. The appendix is normal and is seen in a retrocecal location. No focal right lower quadrant inflammatory changes are seen. There is mild wall thickening seen involving the sigmoid colon, which is improved compared to the prior examination. Diverticula formation can be seen within this region. No dilated loops of small bowel are seen. No free air or significant free fluid can be seen. Nodes and vessels: No retroperitoneal or mesenteric adenopathy by size criteria. Aorta and inferior vena cava are normal in size. Miscellaneous: There is a right lower quadrant anterior abdominal wall hernia seen, which contains nondilated small bowel and a portion of the bladder wall. PELVIS: Genitourinary: Bladder wall thickness is normal. This patient is status post hysterectomy. No adnexal masses are seen. Miscellaneous: No inguinal hernias or adenopathy. Bones: No suspicious bony lesions. No vertebral body compression fractures. Tarlov cysts are seen involving the sacrum. [id number] dextroconvex lumbar scoliosis is seen. Age-appropriate bony degenerative changes are seen. IMPRESSION: Normal appendix. Right lower quadrant anterior abdominal wall hernia seen containing nondilated small bowel and a portion of the bladder wall. This is similar to the prior CT. Resolving diverticulitis. Stable cystic focus seen within the head of the pancreas. Incidental note is made of: Cholecystectomy Simple appearing left renal cyst Stable adrenal nodules Hysterectomy Dextroconvex scoliotic curvature Sacrum Tarlov cysts Dictated by: Juan Ramon Diana M.D. on 10/21/2020 at 7:28 Approved by: Juan Ramon Diana M.D. on 10/21/2020 at 7:33 MDM Narrative Medical decision making narrative: 70-year-old female patient's persistent uncomplicated diverticulitis with most recent CT scanning on September 29. Discussed with patient she has been throughout the typical oral outpatient medications would be appropriate to reimage her as she would require inpatient admission and possibly urgent colonoscopy she continues to have worsening diverticulitis. Patient's abdominal exam she is tender in the right lower quadrant but does not have any rebound, rigidity or guarding. She has persistent Hyponatremia but no other significant laboratory changes or elevated white count. Procalcitonin is negative. Urine microscopy shows hematuria. stool guiac is negative. CT imaging shows improving sigmoid diverticulitis from comparison at the beginning of September. Patient is also noted to have a simple appearing left renal cyst, stable adrenal nodules without any change in size as well as a anterior abdominal wall hernia which contains bladder as well as bowel but no obvious signs of obstruction and patient has not had any obstructive symptoms. Patient saw General surgery on 10/16/2020 and their note was reviewed and they already had discussion about having colonoscopy 6 weeks after this episode has resolved. There is also discussion regarding hernia repair with our general surgeon is there is a plan to recontact the office for repair when improved from her current course. Patient was recommended to continue oral antibiotics for full 14 day course of Cipro/Flagyl by general surgery as well as daily fiber supplementation to help prevent recurrences, she is current on day 5. Prescription for Zofran was given and after discussion about pain control patient wishes to avoid narcotic medications. Discharge Plan Departure Patient Disposition: Home Clinical Impression: Diverticulitis of sigmoid colon, Renal cyst, left, Adrenal nodule, Hernia of anterior abdominal wall Activity Restrictions/Additional Instructions: Your CT today shows improvement of your diverticulitis from prior imaging. Please continue your antibiotics of Flagyl and Ciprofloxacin for a full [address] does show a renal cyst and adrenal nodules which appear unchanges from prior imaging as well as a hernia of the anterior abdominal wall that has some bowel and bladder within it and is similar to your prior CT as well. Please follow up with general surgery at 6 weeks after completion of antibiotics for colonscopy as well as for discussion and planning for surgical repair of your hernia. Continue with fiber supplemention such as metamucil daily as recommended by general surgery. Take zofran 1 tablet every 6 hours as needed for nausea/vomiting. Take pain medications as prescribed. You may take tylenol up to 1000mg every 8 hours with mobic. Do not take other NSAIDs with mobic but you may switch to motrin/ibuprofen if it controls your pain. [facility]. Please return for fevers greater than 100.4F, increasing or new abdominal, back or flank pain, persistent vomiting, lightheadedness or passing out, if you are not having bowel movements/passing flatus, new black or bloody stools or other new or concerning symptoms. Prescriptions: New ciprofloxacin HCl 500 mg tablet 500 mg PO BID Qty: 14 RF: 0 metronidazole [Flagyl] 500 mg tablet 500 mg PO TID Qty: 27 RF: 0 ondansetron 4 mg tablet,disintegrating 4 mg PO QID PRN (Reason: nausea and vomiting) Qty: 7 RF: 0 meloxicam [Mobic] 7.5 mg tablet 7.5 mg PO DAILY PRN (Reason: pain) Qty: 10 RF: 0 No Action [turmeric] 1,000 mg PO DAILY Qty: 0 RF: 0 aspirin 81 MG tablet,delayed release (DR/EC) 81 mg PO QPM Qty: 0 RF: 0 miscellaneous medical supply Misc 1 each .ROUTE .COMPLEX Qty: 1 RF: 0 losartan 100 mg tablet 100 mg PO DAILY Qty: 90 RF: 3 hydrochlorothiazide 50 mg tablet 50 mg PO DAILY Qty: 90 RF: 3 aripiprazole 20 mg tablet See Rx Instructions .ROUTE .COMPLEX Qty: 45 RF: 2 tramadol 50 mg tablet 50 mg PO Q8H PRN (Reason: pain) Qty: 20 RF: 1 ciprofloxacin HCl 500 mg tablet 500 mg PO BID RF: 0 promethazine 12.5 mg tablet 12.5 mg PO Q6H PRN (Reason: nausea) Qty: 20 RF: 2 alpha lipoic acid 600 mg 600 mg PO .QDAY RF: 0 Psyllium fiber 12 mg 12 mg PO .QDAY RF: 0 [place] 3 690 mg 690 mg PO .QDAY RF: 0 pyridostigmine bromide 60 mg tablet 60 mg PO 6XD RF: 0 cholecalciferol (vitamin D3) 10 mcg (400 unit) capsule 10 mcg PO DAILY RF: 0 ondansetron HCl [Zofran] 4 mg tablet 4 mg PO Q8H PRN (Reason: nausea and vomiting) Qty: 10 RF: 0 ondansetron 4 mg tablet,disintegrating 4 mg PO Q6H PRN (Reason: nausea and vomiting) Qty: 14 RF: 0 ondansetron 4 mg tablet,disintegrating 4 mg PO Q6H PRN (Reason: nausea and vomiting) Qty: 14 RF: 0 amoxicillin-pot clavulanate [Augmentin] 875-125 mg tablet 1 tab PO BID Qty: 20 RF: 0 ketorolac 10 mg tablet 10 mg PO Q6H PRN (Reason: pain) Qty: 14 RF: 0 metronidazole [Flagyl] 500 mg tablet 500 mg PO TID 10 Days Qty: 30 RF: 0 Referrals: Doris Schreiber ARNP [Primary Care Provider] -
[2020-10-21 07:58] LABS: Add Manual Diff / Slide Review NO; Basophils Absolute Auto 100 /uL (0-100); Basophils Percent Auto 1.3 % (0-2); Eosinophils Absolute Auto 300 /uL (0-450); Eosinophils Percent Auto 4.9 % (2-4); Hematocrit 35.1 % (36-46); Hemoglobin 11.4 g/dL (12.0-16.0); Lymphocytes Absolute Auto 1500 /uL (1100-4500); Mean Corpuscular HGB Conc 32.4 % (30-36); Mean Corpuscular Hemoglobin 27.1 PG (26-34); Mean Corpuscular Volume 83.8 fL (80-100); Monocytes Absolute Auto 400 /uL (0-900); Monocytes Percent Auto 7.7 % (3-14); Neutrophils Absolute Auto 3400 /uL (1500-7000); Neutrophils Percent Auto 59.1 % (50-75); Platelet Count 269 X10^3/uL (150-400); Red Blood Cell Count 4.19 X10^6/uL (4.0-5.2); Red Cell Distribution Width 14.4 % (11.6-14.8); White Blood Cell Count 5.7 X10^3/uL (4.5-11.0)
[2020-10-21] MEDS: SODIUM CHLORIDE 0.9% 1,000 ML 1000 ML IV (07:59)
[2020-10-21 08:03] LABS: Alanine Aminotransferase 22 IU/L (<35); Albumin 4.2 g/dL (3.5-5.0); Albumin Globulin Ratio 1.6 (1.0-2.8); Alkaline Phosphatase 103 U/L (38-126); Aspartate Aminotransferase 26 IU/L (14-36); BUN Creatinine Ratio 13.8 (6-22); Bilirubin Total 0.2 mg/dL (0.2-1.3); Blood Urea Nitrogen 11 mg/dL (7-17); Calcium 9.5 mg/dL (8.4-10.2); Carbon Dioxide 24 mmol/L (22-32); Chloride 98 mmol/L (98-107); Estimated Glomerular Filt Rate > 60.0 mL/min (>60); Globulin 2.6 g/dL (1.7-4.1); Glucose 95 mg/dL (80-110); HEMOLYSIS < 15 (0-50); Lipase 148 U/L (23-300); Potassium 3.5 mmol/L (3.4-5.1); Sodium 130 mmol/L (137-145); Total Protein 6.8 g/dL (6.3-8.2)
[2020-10-21] MEDS: KETOROLAC 30 MG/ML VIAL 15 MG IV (08:04)
[2020-10-21] MEDS: ONDANSETRON 4 MG/2 ML INJ IV (08:04)
--- NOTE | 2020-10-21 08:04 | DI.CT.S_ITS ---
PROCEDURE: CT ABDOMEN PELVIS W CON INDICATIONS: RLQ pain, diveriticulitis in seen on CT in September TECHNIQUE: After the administration of intravenous contrast, 5 mm thick sections acquired from the diaphragm to the symphysis. 5 mm coronal and sagittal reformats were acquired. For radiation dose reduction, the following was used: automated exposure control, adjustment of mA and/or kV according to patient size. COMPARISON: [facility], CT, CT ABDOMEN PELVIS W CON, 09/29/2020, 22:26. [facility], CT, CT ABDOMEN PELVIS W CON, 08/21/2020, 15:07. [facility], CT, CT ABDOMEN PELVIS W CON, 07/24/2020, 17:53. FINDINGS: Image quality: Excellent. ABDOMEN: Lung bases: Lung bases are clear. Heart size is normal. Solid organs: Liver is normal in size and enhancement. Gallbladder has been removed. Biliary system is non dilated. There is a 1 cm cystic focus again seen involving the head of the pancreas. Spleen is normal in size and enhancement. There are stable bilateral adrenal nodules. Kidneys demonstrate normal size and enhancement, without hydronephrosis. There is an exophytic left renal cyst seen that measures 1.5 cm. Peritoneum and bowel: In this patient with this given history, scrutiny is given to the appendix. The appendix is normal and is seen in a retrocecal location. No focal right lower quadrant inflammatory changes are seen. There is mild wall thickening seen involving the sigmoid colon, which is improved compared to the prior examination. Diverticula formation can be seen within this region. No dilated loops of small bowel are seen. No free air or significant free fluid can be seen. Nodes and vessels: No retroperitoneal or mesenteric adenopathy by size criteria. Aorta and inferior vena cava are normal in size. Miscellaneous: There is a right lower quadrant anterior abdominal wall hernia seen, which contains nondilated small bowel and a portion of the bladder wall. PELVIS: Genitourinary: Bladder wall thickness is normal. This patient is status post hysterectomy. No adnexal masses are seen. Miscellaneous: No inguinal hernias or adenopathy. Bones: No suspicious bony lesions. No vertebral body compression fractures. Tarlov cysts are seen involving the sacrum. [id number] dextroconvex lumbar scoliosis is seen. Age-appropriate bony degenerative changes are seen. IMPRESSION: Normal appendix. Right lower quadrant anterior abdominal wall hernia seen containing nondilated small bowel and a portion of the bladder wall. This is similar to the prior CT. Resolving diverticulitis. Stable cystic focus seen within the head of the pancreas. Incidental note is made of: Cholecystectomy Simple appearing left renal cyst Stable adrenal nodules Hysterectomy Dextroconvex scoliotic curvature Sacrum Tarlov cysts Dictated by: Juan Ramon Diana M.D. on 10/21/2020 at 7:28 Approved by: Juan Ramon Diana M.D. on 10/21/2020 at 7:33
[2020-10-21 08:19] LABS: Procalcitonin 0.04 ng/mL (<0.5)
[2020-10-21 08:47] LABS: WBC Urine None Seen (0-5/HPF)
[2020-10-21 09:05] LABS: Bacteria Urine Occasional (0-1); Culture Indicated Urine Cult Not Indicated; RBC Urine 0-1/HPF (0-5/HPF)
[2020-10-21 09:31] VITALS: BP 134/65; PULSE 56; RESP 24; O2SAT 99
[2020-10-21 09:51] LABS: COVID19 - ADMIT (NP swab/PCR) Negative (Negative)
== END 2020-10-21 09:32 | disposition home or self-care (01) ==
PROVIDERS: Emergency Provider Emergency Medicine; Family Provider Nurse Practitioner; PCP Nurse Practitioner
DX: K57.32 Diverticulitis of large intestine without perforation or abscess without bleeding (principal); N28.1 Cyst of kidney, acquired; E27.8 Other specified disorders of adrenal gland; K43.9 Ventral hernia without obstruction or gangrene; Z20.822 Contact with and (suspected) exposure to COVID-19
CPT/HCPCS: 36415; 74177; 80053; 81003; 81015; 82272; 83690; 84145; 85025; 87635; 96361; 96374; 96375; 99284; C9803; J1885; J2405; Q9967

== ENCOUNTER → 2020-11-08 15:06 | Outpatient (CLI) | payer MEDICARE, BC, SELFPAY ==
[2020-07-24 19:27] VITALS: BMI 33.3
[2020-10-04 13:43] VITALS: BMI 33.3
== END ==
PROVIDERS: Family Provider Nurse Practitioner; PCP Nurse Practitioner; Referring Provider Nurse Practitioner; Visit Provider Nurse Practitioner
DX: M81.0 Age-related osteoporosis without current pathological fracture (principal); Z90.722 Acquired absence of ovaries, bilateral; Z78.0 Asymptomatic menopausal state; K92.9 Disease of digestive system, unspecified
CPT/HCPCS: 77080

== ENCOUNTER 2020-11-12 15:15 | Outpatient (RCR) | payer MEDICARE, BC, SELFPAY ==
--- NOTE | 2019-01-06 12:57 | PT.OIE ---
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) Muscle weakness (generalized) (01/06/19) Past Medical History Cervical dystonia (Chronic 1986) Depression (Chronic 1974) Hyperlipidemia (Chronic) Hypertension (Chronic) Peripheral neuropathy (Chronic 2012) SOB (shortness of breath) (Chronic 2010) Sjogren's syndrome (Chronic 2012) Sleep apnea (Chronic 2009) CTS (carpal tunnel syndrome) (Resolved 1986) Chicken pox (Resolved 1956) Cholecystectomy planned (Resolved) Colon polyps (Resolved) Denervation of muscle (Resolved) Measles (Resolved 1957) Mumps (Resolved 1958) Skin cancer (Resolved 2015) Status post DANILO-BSO (Resolved) Past Surgical History (Last Reviewed 11/11/18 @ 00:23 by Declan Bond DO) Anesthesia complication (Resolved) History of carpal tunnel repair (Resolved 1989) History of cervical spinal surgery (Resolved 07/2008) History of laparoscopic cholecystectomy (Resolved 2006) S/P DANILO-BSO (total abdominal hysterectomy and bilateral salpingo-oophorectomy) (Resolved 01/2007) Status post hernia repair (Resolved 2013) Status post hernia repair (Resolved 2007) Provider Visit Care Team Role Provider Type JENAE [place] Family Provider Advanced Route Cdl Driver Primary Care Provider Specialty: Family Practice Address: [address] [place] [address], [id number] Email: Julian Meza MD Attending Provider Non-Staff Specialty: Neurology Address: [address] [place] [address], [phone] Email: Physical Therapy Initial Evaluation PT-OP-A Visit Information Start: 01/05/19 16:21 Freq: Status: Active Protocol: Document 01/06/19 12:57 SAK (Rec: 01/06/19 13:25 SAK [id number]) Out-Patient Physical Therapy Visit Information Visit Information Visit Type Initial Evaluation Visit Start Time 13:00 Visit Number 1 Precautions Precautions HTN PT-OP-B Current Condition Start: 01/05/19 16:21 Freq: Status: Active Protocol: Document 01/06/19 12:57 SAK (Rec: 01/06/19 13:25 SAK [id number]) Current Condition History of Current Condition Onset Date 4 yrs Current Complaints LE weakness and achiness, SOB History of Current Condition Gradual progressive weakness, started using cane May 2017. Has been seeing specialists and having tests with diagnosis of possible indeterminate type of muscular dystrophy. Also reports exercise intolerance with SOB, increasing fatigue, need for much slower pace. The more I do the worse I feel . Hoping to see if she can establish an exercise program that will not exhaust her. Requesting possible aquatic therapy. Difficulty getting out of chairs, off floor. 2018 8-10 falls, this year being more careful, last fall was in July. Has not suffererd injury. Started Prednisone yesterday 15 mg. Prior experience with Prednisone caused migraine; has headache but not migraine. LE weakness symmetrical, no numbness or tingling. With falls, reports usually [address] Frequently uses cane or walker. No dizziness. BP well-managed. Uses electric tricycle. Has recumbant exercise bike, reports not using, has tendency to overdo. 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 Stool in shower, can dress self. Trip to [place] next week, has anxiety about being able to tolerate. Prior Treatments and Tests muscle biopsy negative [facility] neurologist States MS and ALS ruled out as diagnoses. Future Testing and Treatments Planned Spoke today with Claudy Sotelo, doctor inclusion body myositis specialist at [facility] in [place]; has February 16 appointment Patient reports a second muscle biopsy recommended by [facility] physician Treatment Goals Patient/Caregiver Goals Improve strength/maintain, establish exercise program. Hoping for aquatic therapy. Had difficulty getting in/out of pool and felt uncoordinated last time in pool. Knows how to swim, but body has changed and it felt very difficult. Prior Functional Status Baseline Function- ADL's Independent Baseline Function- Mobility Independent Baseline Function- Gait independent without device Baseline Function- Work/School retired Baseline Function- Recreation/Hobbies walk, bike, hike Current Functional Impairments (Reported) Functional Limitations- ADL's slow, fatiguing Functional Limitations- Mobility/Gait very limited with c/o SOB, frequent rest breaks Functional Limitations- Work/School retired Functional Limitations- Recreation/ unable except has electric Hobbies tricycle PT-OP-D Balance Start: 01/05/19 16:21 Freq: Status: Active Protocol: Document 01/06/19 12:57 SAK (Rec: 01/09/19 12:55 SAK [id number]) OP-PT Balance Assessment Sitting Balance Static Sitting Balance Ability Normal Dynamic Sitting Balance Ability Normal Standing Balance Static Standing Balance Ability Fair Dynamic Standing Balance Ability Fair Balance Tests Other Other Balance Tests Performed Observation only, no objective tests due to fatigue from strength testing. Will do next session. Hebert Fall Scale Copyright Permission PT-OP-G Mobility & Gait Start: 01/05/19 16:21 Freq: Status: Active Protocol: Document 01/06/19 12:57 SAK (Rec: 01/09/19 12:55 [facility] [id number]) OP Mobility Evaluation Bed Mobility Rolling Indep Supine to and from Sit Indep Transfers Sit to Stand Indep with use of hands Bed to Chair Transfers Independent without device Car Transfers Independent Floor Transfers with effort per patient report Functional Movements Lifting and Carrying difficulty per patient report Squats difficult and exhausting Running Assessment unable OP Gait Assessment Gait Gait Assistance Required: Independent Distance (Feet) 50 Assistive Devices Assistive Device None Orthotic/Prosthetic Devices or Brace: No Gait Deviations General Gait Pattern Decreased Stride Length Decreased Feet Clearance Comments Gait Comments slow speed PT-OP-H Neuro Start: 01/05/19 16:21 Freq: Status: Active Protocol: Document 01/06/19 12:57 SAK (Rec: 01/09/19 12:55 [facility] [id number]) Sensation Evaluation Gross Sensation Gross Sensation WNL Comments Summary Comments denies N/T Muscle Tone Tone Assessment girma UE and LE Flexor Tone Description Normal Extensor Tone Description Normal PT-OP-J Posture/Palpation/Skin Start: 01/05/19 16:21 Freq: Status: Active Protocol: Document 01/06/19 12:57 SAK (Rec: 01/09/19 12:55 [facility] [id number]) Skin Assessment Other Assessments Skin Assessment Comments intact, no edema or brusing evident PT-OP-K Range of Motion Start: 01/05/19 16:21 Freq: Status: Active Protocol: Document 01/06/19 12:57 SAK (Rec: 01/09/19 12:55 SAK [id number]) Cervical Spine Range of Motion Cervical Spine Active Comments WNL Lumbar Spine Range of Motion Lumbar Spine Active Comments WNL Shoulder Goniometric Range of Motion Shoulder left Shoulder ROM WFL Yes right Shoulder ROM WFL Yes Elbow/Forearm Range of Motion Elbow/Forearm girma Elbow/Forearm ROM WFL Yes Wrist Goniometric Range of Motion Wrist girma Wrist ROM WFL Yes Hip Goniometric Range of Motion Hip girma Hip ROM WFL Yes Knee Goniometric Range of Motion Knee girma Knee ROM WFL Yes Ankle and Foot Goniometric Range of Motion Ankle and Foot girma Ankle/Foot ROM WFL Yes PT-OP-M Strength Start: 01/05/19 16:21 Freq: Status: Active Protocol: Document 01/06/19 12:57 [facility] (Rec: 01/09/19 12:55 [facility] [id number]) Trunk Strength Trunk Manual Muscle Testing Flexion 4- Good- Extension 4- Good- Shoulder Strength Shoulder Manual Muscle Testing Left Flexion 4- Good- Extension 4 Good Right Flexion 4+ Good+ Extension 4+ Good+ Elbow/Forearm Strength Elbow and Forearm Manual Muscle Testing Left Extension (C7) 4- Good- Pronation 4- Good- Right Flexion (C6) 4+ Good+ Extension (C7) 4+ Good+ Wrist Strength Wrist Manual Muscle Testing Right Flexion (C7) 4 Good Extension (C6) 4 Good Hand Telesales Advisor/Pinch Strength Hand Strength Left Comments 3+/5 (dynamometer not available) Right Comments 4/5 (dynamometer not available ) Hip Strength Hip Manual Muscle Testing Left Flexion (L2) 4 Good Extension (S1) 4- Good- Abduction 4 Good Adduction 4- Good- External Rotation 4 Good Right Flexion (L2) 4 Good Extension (S1) 4 Good Abduction 4 Good External Rotation 4- Good- Internal Rotation 4 Good Knee Strength Knee Manual Muscle Testing Left Flexion (S2) 4 Good Extension (L3) 4 Good Right Flexion (S2) 4+ Good+ Extension (L3) 4 Good Ankle/Foot Strength Ankle and Foot Manual Muscle Testing Left Dorsiflexion (L4) 4+ Good+ Plantarflexion (S1) 4- Good- Right Dorsiflexion (L4) 4+ Good+ Plantarflexion (S1) 4+ Good+ PT-OP-Q Treatments Start: 01/05/19 16:21 Freq: Status: Active Protocol: Document 01/06/19 12:57 [facility] (Rec: 01/09/19 12:55 [facility] [id number]) Self-Care/Home Management Treatment Education Patient Education Safety Activities Self-Care/Home Management Activities need for activity pacing, accept help, start recumbant bike 5 min every other day. Use cane or walker for safety. PT-OP-T Assessment and Plan Start: 01/05/19 16:21 Freq: Status: Active Protocol: Document 01/06/19 12:57 [facility] (Rec: 01/09/19 12:55 [facility] [id number]) Physical Therapy Assessment Rehab Potential Rehabilitation Potential Fair Evaluation Complexity Number of Personal Factors/Comorbidities 1-2 Number of Body Systems Impaired 3 Clinical Presentation at Evaluation Unstable Impairments Impairments Activity Tolerance Functional Mobility Strength Goals Three Impairment strength Short Term Goal (STG) Initiate aquatic therapy and HEP STG Duration 6 wks Timber Inspector Goal (LTG) Establish well-tolerated aquatic exercise program and HEP focused on strengthening and balance for patient with patient demonstrated independence and compliance and demonstrate good knowledge of how to modify depending on symptoms. LTG Duration 12 wks Two Impairment balance Short Term Goal (STG) Complete objective balance testing for baseline measurements STG Duration 6 wks Longterm Goal (LTG) Patient to be safe and independent with gait on level and uneven surfaces with least restrictive device, and have no reported falls. Will be compliant with recommendations for home safety. LTG Duration 12 wks One Impairment activity tolerance Short Term Goal (STG) instruct in energy conservation and pacing STG Duration 6 wks Timber Inspector Goal (LTG) Patient to demonstrate good understanding and compliance with energy conservation and pacing of activities. LTG Duration 12 wks Assessment Summary Assessment Patient presents with muscle weakness of undetermined diagnosis, causing moderate to severe fatigue, SOB, and activity intolerance. Patient has history of multiple falls . Continues with medical work -up including making appointment with specialist for next month at [facility]. She previously was highly physically active. Would like to establish an exercise program she can tolerate, and decrease her fall risk. Is interested in aquatic therapy. Muscle testing reveled bilateral weakness throughout left greater than right, with low muscle endurance. Fatigued after gross muscle testing. Objective assessment will be completed at next visit due to fatigue from patient interview and strength testing , plus patient education regarding activity and exercise pacing. She will be leaving on vacation next week for 1 month and will resume PT when she returns. Physical Therapy Plan Frequency and Duration Frequency of Treatment 1x/Week Duration of Treatment 12 Plan of Care Start Date 01/06/19 Plan of Care End Date 04/08/19 Therapeutic Interventions Therapeutic Interventions Aquatic Therapy Balance Training Gait Training Home Exercise Program Neuromuscular Re-education Patient/Caregiver Education Self-Care/Home Management Therapeutic Activities Therapeutic Exercises Next Visit Focus/Plan Next Note Type Treatment Note Next Visit Plan Further balance and gait tests including 2 min walk test, Get Up and Go Test, Sheth Balance Test. Initiate gentle exercise as tolerated.
--- NOTE | 2019-01-06 12:57 | PT.OPPOC ---
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) Muscle weakness (generalized) (01/06/19) Provider Visit Care Team Role Provider Type JENAE [place] Family Provider Advanced Fur Blender Primary Care Provider Specialty: Family Practice Address: [address] [place] [address], [phone] Email: Julian Meza MD Attending Provider Non-Staff Specialty: Neurology Address: [address] [place], [address] Email: Plan Of Care PT-OP-T Assessment and Plan Start: 01/05/19 16:21 Freq: Status: Active Protocol: Document 01/06/19 12:57 CATARINO (Rec: 01/09/19 12:55 SAK [id number]) Physical Therapy Assessment Rehab Potential Rehabilitation Potential Fair Evaluation Complexity Number of Personal Factors/Comorbidities 1-2 Number of Body Systems Impaired 3 Clinical Presentation at Evaluation Unstable Impairments Impairments Activity Tolerance Functional Mobility Strength Goals Three Impairment strength Short Term Goal (STG) Initiate aquatic therapy and HEP STG Duration 6 wks Halfway Goal (LTG) Establish well-tolerated aquatic exercise program and HEP focused on strengthening and balance for patient with patient demonstrated independence and compliance and demonstrate good knowledge of how to modify depending on symptoms. LTG Duration 12 wks Two Impairment balance Short Term Goal (STG) Complete objective balance testing for baseline measurements STG Duration 6 wks [employer] District Law Clerk Goal (LTG) Patient to be safe and independent with gait on level and uneven surfaces with least restrictive device, and have no reported falls. Will be compliant with recommendations for home safety. LTG Duration 12 wks One Impairment activity tolerance Short Term Goal (STG) instruct in energy conservation and pacing STG Duration 6 wks Halfway Goal (LTG) Patient to demonstrate good understanding and compliance with energy conservation and pacing of activities. LTG Duration 12 wks Assessment Summary Assessment Patient presents with muscle weakness of undetermined diagnosis, causing moderate to severe fatigue, SOB, and activity intolerance. Patient has history of multiple falls . Continues with medical work -up including making appointment with specialist for next month at [facility]. She previously was highly physically active. Would like to establish an exercise program she can tolerate, and decrease her fall risk. Is interested in aquatic therapy. Muscle testing reveled bilateral weakness throughout left greater than right, with low muscle endurance. Fatigued after gross muscle testing. Objective assessment will be completed at next visit due to fatigue from patient interview and strength testing , plus patient education regarding activity and exercise pacing. She will be leaving on vacation next week for 1 month and will resume PT when she returns. Physical Therapy Plan Frequency and Duration Frequency of Treatment 1x/Week Duration of Treatment 12 Plan of Care Start Date 01/06/19 Plan of Care End Date 04/08/19 Therapeutic Interventions Therapeutic Interventions Aquatic Therapy Balance Training Gait Training Home Exercise Program Neuromuscular Re-education Patient/Caregiver Education Self-Care/Home Management Therapeutic Activities Therapeutic Exercises Next Visit Focus/Plan Next Note Type Treatment Note Next Visit Plan Further balance and gait tests including 2 min walk test, Get Up and Go Test, Sheth Balance Test. Initiate gentle exercise as tolerated. Plan of Care Dates Plan of Care Start Date 01/06/19 Plan of Care End Date 04/08/19 Please Sign and Return: I have reviewed this Plan of Care and certify that the skilled therapy services above are required to meet the patient?s needs. Physician Signature Date Printed Name and Credentials Clinical Instructor Signature Printed Name and Credentials
--- NOTE | 2019-02-21 17:08 | PT.OTN ---
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) Muscle weakness (generalized) (02/21/19) Physical Therapy Treatment Note PT-OP-A Visit Information Start: 01/05/19 16:21 Freq: Status: Active Protocol: Document 02/21/19 15:16 SAK (Rec: 02/21/19 16:20 SAK [id number]) Out-Patient Physical Therapy Visit Information Visit Information Visit Type Treatment Note Visit Start Time 15:16 Visit Stop Time 16:01 Total Visit Minutes 45 Visit Number 1 Precautions Precautions HTN PT-OP-B Current Condition Start: 01/05/19 16:21 Freq: Status: Active Protocol: Document 01/06/19 12:57 SAK (Rec: 01/06/19 13:25 SAK [id number]) Current Condition History of Current Condition Onset Date 4 yrs Current Complaints LE weakness and achiness, SOB History of Current Condition Gradual progressive weakness, started using cane May 2017. Has been seeing specialists and having tests with diagnosis of possible indeterminate type of muscular dystrophy. Also reports exercise intolerance with SOB, increasing fatigue, need for much slower pace. The more I do the worse I feel . Hoping to see if she can establish an exercise program that will not exhaust her. Requesting possible aquatic therapy. Difficulty getting out of chairs, off floor. 2018 8-10 falls, this year being more careful, last fall was in July. Has not suffererd injury. Started Prednisone yesterday 15 mg. Prior experience with Prednisone caused migraine; has headache but not migraine. LE weakness symmetrical, no numbness or tingling. With falls, reports usually [address] Frequently uses cane or walker. No dizziness. BP well-managed. Uses electric tricycle. Has recumbant exercise bike, reports not using, has tendency to overdo. 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 Stool in shower, can dress self. Trip to [place] next week, has anxiety about being able to tolerate. Prior Treatments and Tests muscle biopsy negative [facility] neurologist States MS and ALS ruled out as diagnoses. Future Testing and Treatments Planned Spoke today with Claudy Sotelo, doctor inclusion body myositis specialist at [facility] in [place]; has February 16 appointment Patient reports a second muscle biopsy recommended by [facility] physician Treatment Goals Patient/Caregiver Goals Improve strength/maintain, establish exercise program. Hoping for aquatic therapy. Had difficulty getting in/out of pool and felt uncoordinated last time in pool. Knows how to swim, but body has changed and it felt very difficult. Prior Functional Status Baseline Function- ADL's Independent Baseline Function- Mobility Independent Baseline Function- Gait independent without device Baseline Function- Work/School retired Baseline Function- Recreation/Hobbies walk, bike, hike Current Functional Impairments (Reported) Functional Limitations- ADL's slow, fatiguing Functional Limitations- Mobility/Gait very limited with c/o SOB, frequent rest breaks Functional Limitations- Work/School retired Functional Limitations- Recreation/ unable except has electric Hobbies tricycle PT-OP-C Subjective Start: 01/05/19 16:21 Freq: Status: Active Protocol: Document 02/21/19 15:16 SAK (Rec: 02/21/19 16:20 SAK [id number]) OP-PT Subjective Patient Comments Patient Comments Saw specialist (neurologist) in [facility] in [facility] last week, did some labs, EMG and other tests. Will get results next week but indications were Myosits, Sjogren's, autonomic system findings, possible neuropathy. Patient is researching a treatment performed [facility]; nerve pain treatment with INF. PT-OP-D Balance Start: 01/05/19 16:21 Freq: Status: Active Protocol: Document 01/06/19 12:57 SAK (Rec: 01/09/19 12:55 [facility] [id number]) OP-PT Balance Assessment Sitting Balance Static Sitting Balance Ability Normal Dynamic Sitting Balance Ability Normal Standing Balance Static Standing Balance Ability Fair Dynamic Standing Balance Ability Fair Balance Tests Other Other Balance Tests Performed Observation only, no objective tests due to fatigue from strength testing. Will do next session. Hebert Fall Scale Copyright Permission PT-OP-G Mobility & Gait Start: 01/05/19 16:21 Freq: Status: Active Protocol: Document 01/06/19 12:57 SAK (Rec: 01/09/19 12:55 SAK [id number]) OP Mobility Evaluation Bed Mobility Rolling Indep Supine to and from Sit Indep Transfers Sit to Stand Indep with use of hands Bed to Chair Transfers Independent without device Car Transfers Independent Floor Transfers with effort per patient report Functional Movements Lifting and Carrying difficulty per patient report Squats difficult and exhausting Running Assessment unable OP Gait Assessment Gait Gait Assistance Required: Independent Distance (Feet) 50 Assistive Devices Assistive Device None Orthotic/Prosthetic Devices or Brace: No Gait Deviations General Gait Pattern Decreased Stride Length, Decreased Feet Clearance Comments Gait Comments slow speed PT-OP-H Neuro Start: 01/05/19 16:21 Freq: Status: Active Protocol: Document 01/06/19 12:57 SAK (Rec: 01/09/19 12:55 [facility] [id number]) Sensation Evaluation Gross Sensation Gross Sensation WNL Comments Summary Comments denies N/T Muscle Tone Tone Assessment girma UE and LE Flexor Tone Description Normal Extensor Tone Description Normal PT-OP-J Posture/Palpation/Skin Start: 01/05/19 16:21 Freq: Status: Active Protocol: Document 01/06/19 12:57 SAK (Rec: 01/09/19 12:55 [facility] [id number]) Skin Assessment Other Assessments Skin Assessment Comments intact, no edema or brusing evident PT-OP-K Range of Motion Start: 01/05/19 16:21 Freq: Status: Active Protocol: Document 01/06/19 12:57 SAK (Rec: 01/09/19 12:55 [facility] [id number]) Cervical Spine Range of Motion Cervical Spine Active Comments WNL Lumbar Spine Range of Motion Lumbar Spine Active Comments WNL Shoulder Goniometric Range of Motion Shoulder left Shoulder ROM WFL Yes right Shoulder ROM WFL Yes Elbow/Forearm Range of Motion Elbow/Forearm girma Elbow/Forearm ROM WFL Yes Wrist Goniometric Range of Motion Wrist girma Wrist ROM WFL Yes Hip Goniometric Range of Motion Hip girma Hip ROM WFL Yes Knee Goniometric Range of Motion Knee girma Knee ROM WFL Yes Ankle and Foot Goniometric Range of Motion Ankle and Foot girma Ankle/Foot ROM WFL Yes PT-OP-M Strength Start: 01/05/19 16:21 Freq: Status: Active Protocol: Document 01/06/19 12:57 SAK (Rec: 01/09/19 12:55 [facility] [id number]) Trunk Strength Trunk Manual Muscle Testing Flexion 4- Good- Extension 4- Good- Shoulder Strength Shoulder Manual Muscle Testing Left Flexion 4- Good- Extension 4 Good Right Flexion 4+ Good+ Extension 4+ Good+ Elbow/Forearm Strength Elbow and Forearm Manual Muscle Testing Left Extension (C7) 4- Good- Pronation 4- Good- Right Flexion (C6) 4+ Good+ Extension (C7) 4+ Good+ Wrist Strength Wrist Manual Muscle Testing Right Flexion (C7) 4 Good Extension (C6) 4 Good Hand Remediation Consultant/Pinch Strength Hand Strength Left Comments 3+/5 (dynamometer not available) Right Comments 4/5 (dynamometer not available ) Hip Strength Hip Manual Muscle Testing Left Flexion (L2) 4 Good Extension (S1) 4- Good- Abduction 4 Good Adduction 4- Good- External Rotation 4 Good Right Flexion (L2) 4 Good Extension (S1) 4 Good Abduction 4 Good External Rotation 4- Good- Internal Rotation 4 Good Knee Strength Knee Manual Muscle Testing Left Flexion (S2) 4 Good Extension (L3) 4 Good Right Flexion (S2) 4+ Good+ Extension (L3) 4 Good Ankle/Foot Strength Ankle and Foot Manual Muscle Testing Left Dorsiflexion (L4) 4+ Good+ Plantarflexion (S1) 4- Good- Right Dorsiflexion (L4) 4+ Good+ Plantarflexion (S1) 4+ Good+ PT-OP-Q Treatments Start: 01/05/19 16:21 Freq: Status: Active Protocol: Document 02/21/19 15:16 [facility] (Rec: 02/21/19 16:20 [facility] [id number]) Cardio Equipment Recumbent Elliptical ([employer]) Duration (Minutes) 6 Resistance 1 Other slow pace Therapeutic Exercises Sitting Exercises overhead stretch Reps/Minutes 1x with deep breath pec stretch Reps/Minutes 2x with deep breathing Standing Exercises LE strength and balance ex Standing Exercise Name heel raises, toe raises, mini- squats, march, SLS, tandem stand, sidestep Reps/Minutes 2 min ea, seated rest in between each ex Comments parallel bars, min UE support, verbal cues Self-Care/Home Management Treatment Education Patient Education Home Exercise Program,Safety Other Education Aquatic information sheet provided and aquatic therapy discussed. Activities Self-Care/Home Management Activities pacing of exercises of exercises and activities; break up into several exercise bouts, start with every other day, frequent rest breaks PT-OP-T Assessment and Plan Start: 01/05/19 16:21 Freq: Status: Active Protocol: Document 02/21/19 15:16 [facility] (Rec: 02/21/19 16:20 SAK [id number]) Physical Therapy Assessment Goals Three Impairment strength Short Term Goal (STG) Initiate aquatic therapy and HEP STG Duration 6 wks Mcfp Goal (LTG) Establish well-tolerated aquatic exercise program and HEP focused on strengthening and balance for patient with patient demonstrated independence and compliance and demonstrate good knowledge of how to modify depending on symptoms. LTG Duration 12 wks Two Impairment balance Short Term Goal (STG) Complete objective balance testing for baseline measurements STG Duration 6 wks Garbage Truck Driver Goal (LTG) Patient to be safe and independent with gait on level and uneven surfaces with least restrictive device, and have no reported falls. Will be compliant with recommendations for home safety. LTG Duration 12 wks One Impairment activity tolerance Short Term Goal (STG) instruct in energy conservation and pacing STG Duration 6 wks Garbage Truck Driver Goal (LTG) Patient to demonstrate good understanding and compliance with energy conservation and pacing of activities. LTG Duration 12 wks Assessment Summary Assessment Elizabeth fatigues very easily and great care was taken to have patient rest in between exercises, and encouraged her to listen to her body throughout our session. Education provided on pacing of exercises and activity and will be highly important for this patient. She reported fatigue and muscle aching after today's PT treatment. Will need to be progressed very slowly. Physical Therapy Plan Frequency and Duration Frequency of Treatment 1x/Week Duration of Treatment 12 Plan of Care Start Date 01/06/19 Plan of Care End Date 04/08/19 Therapeutic Interventions Therapeutic Interventions Aquatic Therapy,Balance Training,Gait Training,Home Exercise Program,Neuromuscular Re-education,Patient/ Caregiver Education,Self-Care/ Home Management,Therapeutic Activities,Therapeutic Exercises Next Visit Focus/Plan Next Note Type Treatment Note Next Visit Plan Initiate aquatic therapy. Next session: urther balance and gait tests including 2 min walk test, Get Up and Go Test, Sheth Balance Test. Modify exercises as indicated.
--- NOTE | 2019-02-23 16:24 | PT.OTN ---
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) Muscle weakness (generalized) (02/23/19) Physical Therapy Treatment Note PT-OP-A Visit Information Start: 01/05/19 16:21 Freq: Status: Active Protocol: Document 02/23/19 16:06 [facility] (Rec: 02/23/19 16:24 SAK [id number]) Out-Patient Physical Therapy Visit Information Visit Information Visit Type Treatment Note Visit Start Time 12:30 Visit Stop Time 13:15 Total Visit Minutes 30 Visit Number 2 Precautions Precautions HTN PT-OP-B Current Condition Start: 01/05/19 16:21 Freq: Status: Active Protocol: Document 01/06/19 12:57 SAK (Rec: 01/06/19 13:25 SAK [id number]) Current Condition History of Current Condition Onset Date 4 yrs Current Complaints LE weakness and achiness, SOB History of Current Condition Gradual progressive weakness, started using cane May 2017. Has been seeing specialists and having tests with diagnosis of possible indeterminate type of muscular dystrophy. Also reports exercise intolerance with SOB, increasing fatigue, need for much slower pace. The more I do the worse I feel . Hoping to see if she can establish an exercise program that will not exhaust her. Requesting possible aquatic therapy. Difficulty getting out of chairs, off floor. 2018 8-10 falls, this year being more careful, last fall was in July. Has not suffererd injury. Started Prednisone yesterday 15 mg. Prior experience with Prednisone caused migraine; has headache but not migraine. LE weakness symmetrical, no numbness or tingling. With falls, reports usually [address] Frequently uses cane or walker. No dizziness. BP well-managed. Uses electric tricycle. Has recumbant exercise bike, reports not using, has tendency to overdo. 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 Stool in shower, can dress self. Trip to [place] next week, has anxiety about being able to tolerate. Prior Treatments and Tests muscle biopsy negative [facility] neurologist States MS and ALS ruled out as diagnoses. Future Testing and Treatments Planned Spoke today with Claudy Sotelo, doctor inclusion body myositis specialist at [facility] in [place]; has February 16 appointment Patient reports a second muscle biopsy recommended by [facility] physician Treatment Goals Patient/Caregiver Goals Improve strength/maintain, establish exercise program. Hoping for aquatic therapy. Had difficulty getting in/out of pool and felt uncoordinated last time in pool. Knows how to swim, but body has changed and it felt very difficult. Prior Functional Status Baseline Function- ADL's Independent Baseline Function- Mobility Independent Baseline Function- Gait independent without device Baseline Function- Work/School retired Baseline Function- Recreation/Hobbies walk, bike, hike Current Functional Impairments (Reported) Functional Limitations- ADL's slow, fatiguing Functional Limitations- Mobility/Gait very limited with c/o SOB, frequent rest breaks Functional Limitations- Work/School retired Functional Limitations- Recreation/ unable except has electric Hobbies tricycle PT-OP-C Subjective Start: 01/05/19 16:21 Freq: Status: Active Protocol: Document 02/23/19 16:06 SAK (Rec: 02/23/19 16:24 [facility] [id number]) OP-PT Subjective Patient Comments Patient Comments Stated she was tired but not excessively after first full treatment session in clinic. Agreeable to keeping treatment session to approximately 30 min in pool today due ton increased physical demands of changing prior and after. PT-OP-D Balance Start: 01/05/19 16:21 Freq: Status: Active Protocol: Document 01/06/19 12:57 SAK (Rec: 01/09/19 12:55 [facility] [id number]) OP-PT Balance Assessment Sitting Balance Static Sitting Balance Ability Normal Dynamic Sitting Balance Ability Normal Standing Balance Static Standing Balance Ability Fair Dynamic Standing Balance Ability Fair Balance Tests Other Other Balance Tests Performed Observation only, no objective tests due to fatigue from strength testing. Will do next session. Hebert Fall Scale Copyright Permission PT-OP-G Mobility & Gait Start: 01/05/19 16:21 Freq: Status: Active Protocol: Document 01/06/19 12:57 SAK (Rec: 01/09/19 12:55 [facility] [id number]) OP Mobility Evaluation Bed Mobility Rolling Indep Supine to and from Sit Indep Transfers Sit to Stand Indep with use of hands Bed to Chair Transfers Independent without device Car Transfers Independent Floor Transfers with effort per patient report Functional Movements Lifting and Carrying difficulty per patient report Squats difficult and exhausting Running Assessment unable OP Gait Assessment Gait Gait Assistance Required: Independent Distance (Feet) 50 Assistive Devices Assistive Device None Orthotic/Prosthetic Devices or Brace: No Gait Deviations General Gait Pattern Decreased Stride Length, Decreased Feet Clearance Comments Gait Comments slow speed PT-OP-H Neuro Start: 01/05/19 16:21 Freq: Status: Active Protocol: Document 01/06/19 12:57 SAK (Rec: 01/09/19 12:55 [facility] [id number]) Sensation Evaluation Gross Sensation Gross Sensation WNL Comments Summary Comments denies N/T Muscle Tone Tone Assessment girma UE and LE Flexor Tone Description Normal Extensor Tone Description Normal PT-OP-J Posture/Palpation/Skin Start: 01/05/19 16:21 Freq: Status: Active Protocol: Document 01/06/19 12:57 SAK (Rec: 01/09/19 12:55 [facility] [id number]) Skin Assessment Other Assessments Skin Assessment Comments intact, no edema or brusing evident PT-OP-K Range of Motion Start: 01/05/19 16:21 Freq: Status: Active Protocol: Document 01/06/19 12:57 SAK (Rec: 01/09/19 12:55 [facility] [id number]) Cervical Spine Range of Motion Cervical Spine Active Comments WNL Lumbar Spine Range of Motion Lumbar Spine Active Comments WNL Shoulder Goniometric Range of Motion Shoulder left Shoulder ROM WFL Yes right Shoulder ROM WFL Yes Elbow/Forearm Range of Motion Elbow/Forearm girma Elbow/Forearm ROM WFL Yes Wrist Goniometric Range of Motion Wrist girma Wrist ROM WFL Yes Hip Goniometric Range of Motion Hip girma Hip ROM WFL Yes Knee Goniometric Range of Motion Knee girma Knee ROM WFL Yes Ankle and Foot Goniometric Range of Motion Ankle and Foot girma Ankle/Foot ROM WFL Yes PT-OP-M Strength Start: 01/05/19 16:21 Freq: Status: Active Protocol: Document 01/06/19 12:57 SAK (Rec: 01/09/19 12:55 [facility] [id number]) Trunk Strength Trunk Manual Muscle Testing Flexion 4- Good- Extension 4- Good- Shoulder Strength Shoulder Manual Muscle Testing Left Flexion 4- Good- Extension 4 Good Right Flexion 4+ Good+ Extension 4+ Good+ Elbow/Forearm Strength Elbow and Forearm Manual Muscle Testing Left Extension (C7) 4- Good- Pronation 4- Good- Right Flexion (C6) 4+ Good+ Extension (C7) 4+ Good+ Wrist Strength Wrist Manual Muscle Testing Right Flexion (C7) 4 Good Extension (C6) 4 Good Hand Fisher Troll Line/Pinch Strength Hand Strength Left Comments 3+/5 (dynamometer not available) Right Comments 4/5 (dynamometer not available ) Hip Strength Hip Manual Muscle Testing Left Flexion (L2) 4 Good Extension (S1) 4- Good- Abduction 4 Good Adduction 4- Good- External Rotation 4 Good Right Flexion (L2) 4 Good Extension (S1) 4 Good Abduction 4 Good External Rotation 4- Good- Internal Rotation 4 Good Knee Strength Knee Manual Muscle Testing Left Flexion (S2) 4 Good Extension (L3) 4 Good Right Flexion (S2) 4+ Good+ Extension (L3) 4 Good Ankle/Foot Strength Ankle and Foot Manual Muscle Testing Left Dorsiflexion (L4) 4+ Good+ Plantarflexion (S1) 4- Good- Right Dorsiflexion (L4) 4+ Good+ Plantarflexion (S1) 4+ Good+ PT-OP-Q Treatments Start: 01/05/19 16:21 Freq: Status: Active Protocol: Document 02/21/19 15:16 [facility] (Rec: 02/21/19 16:20 [facility] [id number]) Cardio Equipment Recumbent Elliptical ([employer]) Duration (Minutes) 6 Resistance 1 Other slow pace Therapeutic Exercises Sitting Exercises overhead stretch Reps/Minutes 1x with deep breath pec stretch Reps/Minutes 2x with deep breathing Standing Exercises LE strength and balance ex Standing Exercise Name heel raises, toe raises, mini- squats, march, SLS, tandem stand, sidestep Reps/Minutes 2 min ea, seated rest in between each ex Comments parallel bars, min UE support, verbal cues Self-Care/Home Management Treatment Education Patient Education Home Exercise Program,Safety Other Education Aquatic information sheet provided and aquatic therapy discussed. Activities Self-Care/Home Management Activities pacing of exercises of exercises and activities; break up into several exercise bouts, start with every other day, frequent rest breaks PT-OP-S Aquatic Treatment Start: 01/05/19 16:21 Freq: Status: Active Protocol: Document 02/23/19 16:06 [facility] (Rec: 02/23/19 16:24 [facility] [id number]) Aquatics Treatment Pool Entry/Exit Pool Entry/Exit Method Stairs Assistance Standby Assistance,Verbal Cues Water Walking Sideways Water Level Chest Level Level of Assistance Standby Assistance,Verbal Cues Comments UE support Backwards Water Level Chest Level Level of Assistance Standby Assistance,Verbal Cues Comments UE support Forwards Water Level Chest Level Level of Assistance Standby Assistance,Verbal Cues Comments UE support Lower Extremity Exercises side to side weight-shifts Body Position Standing Water Level Chest Level Reps/Duration 10x squats Body Position Standing Water Level Chest Level Reps/Duration 10x Spinal Exercises DKTC, SKTC Body Position Standing Water Level Cullen Equipment at wall Reps/Duration 2x Cullen Activities Cullen Activities Bicycle,Running Other Activities deep water hang Equipment [place] float Duration 10 Comments slow pace Swim Strokes [employer] Backstroke Other Equipment Used [place] float Laps/Duration 3 min Comments slow pace Other water recovery Details supine to stand Reps/Duration 3x Comments mod assist PT-OP-T Assessment and Plan Start: 01/05/19 16:21 Freq: Status: Active Protocol: Document 02/23/19 16:06 [facility] (Rec: 02/23/19 16:24 [facility] [id number]) Physical Therapy Assessment Goals Three Impairment strength Short Term Goal (STG) Initiate aquatic therapy and HEP STG Duration 6 wks Longterm Goal (LTG) Establish well-tolerated aquatic exercise program and HEP focused on strengthening and balance for patient with patient demonstrated independence and compliance and demonstrate good knowledge of how to modify depending on symptoms. LTG Duration 12 wks Two Impairment balance Short Term Goal (STG) Complete objective balance testing for baseline measurements STG Duration 6 wks Work Over Rig Operator Goal (LTG) Patient to be safe and independent with gait on level and uneven surfaces with least restrictive device, and have no reported falls. Will be compliant with recommendations for home safety. LTG Duration 12 wks One Impairment activity tolerance Short Term Goal (STG) instruct in energy conservation and pacing STG Duration 6 wks Longterm Goal (LTG) Patient to demonstrate good understanding and compliance with energy conservation and pacing of activities. LTG Duration 12 wks Assessment Summary Assessment Good tolerance for gentle aquatic exercise today with frequent rests and slow pace. Patient assisted to locker room and shown accessable shower and cautioned to use grab bars for stabilization on wet floor. Physical Therapy Plan Frequency and Duration Frequency of Treatment 1x/Week Duration of Treatment 12 Plan of Care Start Date 01/06/19 Plan of Care End Date 04/08/19 Therapeutic Interventions Therapeutic Interventions Aquatic Therapy,Balance Training,Gait Training,Home Exercise Program,Neuromuscular Re-education,Patient/ Caregiver Education,Self-Care/ Home Management,Therapeutic Activities,Therapeutic Exercises Next Visit Focus/Plan Next Note Type Treatment Note Next Visit Plan Gentle progression of ther ex in aquatic and land-based PT. 2 min walk test, Get Up and Go Test, Sheth Balance test next land-based session.
--- NOTE | 2019-03-04 13:56 | PT.OTN ---
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) Muscle weakness (generalized) (02/23/19) Physical Therapy Treatment Note PT-OP-A Visit Information Start: 01/05/19 16:21 Freq: Status: Active Protocol: Document 02/23/19 16:06 [facility] (Rec: 02/23/19 16:24 SAK [id number]) Out-Patient Physical Therapy Visit Information Visit Information Visit Type Treatment Note Visit Start Time 12:30 Visit Stop Time 13:15 Total Visit Minutes 30 Visit Number 2 Precautions Precautions HTN PT-OP-B Current Condition Start: 01/05/19 16:21 Freq: Status: Active Protocol: Document 01/06/19 12:57 SAK (Rec: 01/06/19 13:25 SAK [id number]) Current Condition History of Current Condition Onset Date 4 yrs Current Complaints LE weakness and achiness, SOB History of Current Condition Gradual progressive weakness, started using cane May 2017. Has been seeing specialists and having tests with diagnosis of possible indeterminate type of muscular dystrophy. Also reports exercise intolerance with SOB, increasing fatigue, need for much slower pace. The more I do the worse I feel . Hoping to see if she can establish an exercise program that will not exhaust her. Requesting possible aquatic therapy. Difficulty getting out of chairs, off floor. 2018 8-10 falls, this year being more careful, last fall was in July. Has not suffererd injury. Started Prednisone yesterday 15 mg. Prior experience with Prednisone caused migraine; has headache but not migraine. LE weakness symmetrical, no numbness or tingling. With falls, reports usually [address] Frequently uses cane or walker. No dizziness. BP well-managed. Uses electric tricycle. Has recumbant exercise bike, reports not using, has tendency to overdo. 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 Stool in shower, can dress self. Trip to [place] next week, has anxiety about being able to tolerate. Prior Treatments and Tests muscle biopsy negative [facility] neurologist States MS and ALS ruled out as diagnoses. Future Testing and Treatments Planned Spoke today with Claudy Sotelo, doctor inclusion body myositis specialist at [facility] in [place]; has February 16 appointment Patient reports a second muscle biopsy recommended by [facility] physician Treatment Goals Patient/Caregiver Goals Improve strength/maintain, establish exercise program. Hoping for aquatic therapy. Had difficulty getting in/out of pool and felt uncoordinated last time in pool. Knows how to swim, but body has changed and it felt very difficult. Prior Functional Status Baseline Function- ADL's Independent Baseline Function- Mobility Independent Baseline Function- Gait independent without device Baseline Function- Work/School retired Baseline Function- Recreation/Hobbies walk, bike, hike Current Functional Impairments (Reported) Functional Limitations- ADL's slow, fatiguing Functional Limitations- Mobility/Gait very limited with c/o SOB, frequent rest breaks Functional Limitations- Work/School retired Functional Limitations- Recreation/ unable except has electric Hobbies tricycle PT-OP-C Subjective Start: 01/05/19 16:21 Freq: Status: Active Protocol: Document 03/04/19 13:55 LJ (Rec: 03/04/19 13:56 LJ [id number]) OP-PT Subjective Patient Comments Patient Comments Pt showed up at the pool to report that she would not be able to participate today due to fatigue. PT-OP-D Balance Start: 01/05/19 16:21 Freq: Status: Active Protocol: Document 01/06/19 12:57 SAK (Rec: 01/09/19 12:55 SAK [id number]) OP-PT Balance Assessment Sitting Balance Static Sitting Balance Ability Normal Dynamic Sitting Balance Ability Normal Standing Balance Static Standing Balance Ability Fair Dynamic Standing Balance Ability Fair Balance Tests Other Other Balance Tests Performed Observation only, no objective tests due to fatigue from strength testing. Will do next session. Hebert Fall Scale Copyright Permission PT-OP-G Mobility & Gait Start: 01/05/19 16:21 Freq: Status: Active Protocol: Document 01/06/19 12:57 SAK (Rec: 01/09/19 12:55 SAK [id number]) OP Mobility Evaluation Bed Mobility Rolling Indep Supine to and from Sit Indep Transfers Sit to Stand Indep with use of hands Bed to Chair Transfers Independent without device Car Transfers Independent Floor Transfers with effort per patient report Functional Movements Lifting and Carrying difficulty per patient report Squats difficult and exhausting Running Assessment unable OP Gait Assessment Gait Gait Assistance Required: Independent Distance (Feet) 50 Assistive Devices Assistive Device None Orthotic/Prosthetic Devices or Brace: No Gait Deviations General Gait Pattern Decreased Stride Length, Decreased Feet Clearance Comments Gait Comments slow speed PT-OP-H Neuro Start: 01/05/19 16:21 Freq: Status: Active Protocol: Document 01/06/19 12:57 SAK (Rec: 01/09/19 12:55 [facility] [id number]) Sensation Evaluation Gross Sensation Gross Sensation WNL Comments Summary Comments denies N/T Muscle Tone Tone Assessment girma UE and LE Flexor Tone Description Normal Extensor Tone Description Normal PT-OP-J Posture/Palpation/Skin Start: 01/05/19 16:21 Freq: Status: Active Protocol: Document 01/06/19 12:57 SAK (Rec: 01/09/19 12:55 [facility] [id number]) Skin Assessment Other Assessments Skin Assessment Comments intact, no edema or brusing evident PT-OP-K Range of Motion Start: 01/05/19 16:21 Freq: Status: Active Protocol: Document 01/06/19 12:57 SAK (Rec: 01/09/19 12:55 [facility] [id number]) Cervical Spine Range of Motion Cervical Spine Active Comments WNL Lumbar Spine Range of Motion Lumbar Spine Active Comments WNL Shoulder Goniometric Range of Motion Shoulder left Shoulder ROM WFL Yes right Shoulder ROM WFL Yes Elbow/Forearm Range of Motion Elbow/Forearm girma Elbow/Forearm ROM WFL Yes Wrist Goniometric Range of Motion Wrist girma Wrist ROM WFL Yes Hip Goniometric Range of Motion Hip girma Hip ROM WFL Yes Knee Goniometric Range of Motion Knee girma Knee ROM WFL Yes Ankle and Foot Goniometric Range of Motion Ankle and Foot girma Ankle/Foot ROM WFL Yes PT-OP-M Strength Start: 01/05/19 16:21 Freq: Status: Active Protocol: Document 01/06/19 12:57 SAK (Rec: 01/09/19 12:55 [facility] [id number]) Trunk Strength Trunk Manual Muscle Testing Flexion 4- Good- Extension 4- Good- Shoulder Strength Shoulder Manual Muscle Testing Left Flexion 4- Good- Extension 4 Good Right Flexion 4+ Good+ Extension 4+ Good+ Elbow/Forearm Strength Elbow and Forearm Manual Muscle Testing Left Extension (C7) 4- Good- Pronation 4- Good- Right Flexion (C6) 4+ Good+ Extension (C7) 4+ Good+ Wrist Strength Wrist Manual Muscle Testing Right Flexion (C7) 4 Good Extension (C6) 4 Good Hand Grocery Clerk Checking/Pinch Strength Hand Strength Left Comments 3+/5 (dynamometer not available) Right Comments 4/5 (dynamometer not available ) Hip Strength Hip Manual Muscle Testing Left Flexion (L2) 4 Good Extension (S1) 4- Good- Abduction 4 Good Adduction 4- Good- External Rotation 4 Good Right Flexion (L2) 4 Good Extension (S1) 4 Good Abduction 4 Good External Rotation 4- Good- Internal Rotation 4 Good Knee Strength Knee Manual Muscle Testing Left Flexion (S2) 4 Good Extension (L3) 4 Good Right Flexion (S2) 4+ Good+ Extension (L3) 4 Good Ankle/Foot Strength Ankle and Foot Manual Muscle Testing Left Dorsiflexion (L4) 4+ Good+ Plantarflexion (S1) 4- Good- Right Dorsiflexion (L4) 4+ Good+ Plantarflexion (S1) 4+ Good+ PT-OP-Q Treatments Start: 01/05/19 16:21 Freq: Status: Active Protocol: Document 02/21/19 15:16 [facility] (Rec: 02/21/19 16:20 [facility] [id number]) Cardio Equipment Recumbent Elliptical (S B E) Duration (Minutes) 6 Resistance 1 Other slow pace Therapeutic Exercises Sitting Exercises overhead stretch Reps/Minutes 1x with deep breath pec stretch Reps/Minutes 2x with deep breathing Standing Exercises LE strength and balance ex Standing Exercise Name heel raises, toe raises, mini- squats, march, SLS, tandem stand, sidestep Reps/Minutes 2 min ea, seated rest in between each ex Comments parallel bars, min UE support, verbal cues Self-Care/Home Management Treatment Education Patient Education Home Exercise Program,Safety Other Education Aquatic information sheet provided and aquatic therapy discussed. Activities Self-Care/Home Management Activities pacing of exercises of exercises and activities; break up into several exercise bouts, start with every other day, frequent rest breaks PT-OP-S Aquatic Treatment Start: 01/05/19 16:21 Freq: Status: Active Protocol: Document 02/23/19 16:06 [facility] (Rec: 02/23/19 16:24 [facility] [id number]) Aquatics Treatment Pool Entry/Exit Pool Entry/Exit Method Stairs Assistance Standby Assistance,Verbal Cues Water Walking Sideways Water Level Chest Level Level of Assistance Standby Assistance,Verbal Cues Comments UE support Backwards Water Level Chest Level Level of Assistance Standby Assistance,Verbal Cues Comments UE support Forwards Water Level Chest Level Level of Assistance Standby Assistance,Verbal Cues Comments UE support Lower Extremity Exercises side to side weight-shifts Body Position Standing Water Level Chest Level Reps/Duration 10x squats Body Position Standing Water Level Chest Level Reps/Duration 10x Spinal Exercises DKTC, SKTC Body Position Standing Water Level [place] Equipment at wall Reps/Duration 2x [place] Activities [place] Activities Bicycle,Running Other Activities deep water hang Equipment lower brule float Duration 10 Comments slow pace Swim Strokes Elementary Backstroke Other Equipment Used lower brule float Laps/Duration 3 min Comments slow pace Other water recovery Details supine to stand Reps/Duration 3x Comments mod assist PT-OP-T Assessment and Plan Start: 01/05/19 16:21 Freq: Status: Active Protocol: Document 02/23/19 16:06 [facility] (Rec: 02/23/19 16:24 [facility] [id number]) Physical Therapy Assessment Goals Three Impairment strength Short Term Goal (STG) Initiate aquatic therapy and HEP STG Duration 6 wks Care Home Goal (LTG) Establish well-tolerated aquatic exercise program and HEP focused on strengthening and balance for patient with patient demonstrated independence and compliance and demonstrate good knowledge of how to modify depending on symptoms. LTG Duration 12 wks Two Impairment balance Short Term Goal (STG) Complete objective balance testing for baseline measurements STG Duration 6 wks Care Home Goal (LTG) Patient to be safe and independent with gait on level and uneven surfaces with least restrictive device, and have no reported falls. Will be compliant with recommendations for home safety. LTG Duration 12 wks One Impairment activity tolerance Short Term Goal (STG) instruct in energy conservation and pacing STG Duration 6 wks Care Home Goal (LTG) Patient to demonstrate good understanding and compliance with energy conservation and pacing of activities. LTG Duration 12 wks Assessment Summary Assessment Good tolerance for gentle aquatic exercise today with frequent rests and slow pace. Patient assisted to locker room and shown accessable shower and cautioned to use grab bars for stabilization on wet floor. Physical Therapy Plan Frequency and Duration Frequency of Treatment 1x/Week Duration of Treatment 12 Plan of Care Start Date 01/06/19 Plan of Care End Date 04/08/19 Therapeutic Interventions Therapeutic Interventions Aquatic Therapy,Balance Training,Gait Training,Home Exercise Program,Neuromuscular Re-education,Patient/ Caregiver Education,Self-Care/ Home Management,Therapeutic Activities,Therapeutic Exercises Next Visit Focus/Plan Next Note Type Treatment Note Next Visit Plan Gentle progression of ther ex in aquatic and land-based PT. 2 min walk test, Get Up and Go Test, Sheth Balance test next land-based session.
--- NOTE | 2019-03-08 15:12 | PT.OTN ---
Current Diagnoses Spasmodic torticollis (03/08/19) Myotonic muscular dystrophy (03/08/19) Muscle weakness (generalized) (03/08/19) Physical Therapy Treatment Note PT-OP-A Visit Information Start: 01/05/19 16:21 Freq: Status: Active Protocol: Document 02/23/19 16:06 [facility] (Rec: 02/23/19 16:24 [facility] [id number]) Out-Patient Physical Therapy Visit Information Visit Information Visit Type Treatment Note Visit Start Time 12:30 Visit Stop Time 13:15 Total Visit Minutes 30 Visit Number 2 Precautions Precautions HTN PT-OP-B Current Condition Start: 01/05/19 16:21 Freq: Status: Active Protocol: Document 01/06/19 12:57 SAK (Rec: 01/06/19 13:25 SAK [id number]) Current Condition History of Current Condition Onset Date 4 yrs Current Complaints LE weakness and achiness, SOB History of Current Condition Gradual progressive weakness, started using cane May 2017. Has been seeing specialists and having tests with diagnosis of possible indeterminate type of muscular dystrophy. Also reports exercise intolerance with SOB, increasing fatigue, need for much slower pace. The more I do the worse I feel . Hoping to see if she can establish an exercise program that will not exhaust her. Requesting possible aquatic therapy. Difficulty getting out of chairs, off floor. 2018 8-10 falls, this year being more careful, last fall was in July. Has not suffererd injury. Started Prednisone yesterday 15 mg. Prior experience with Prednisone caused migraine; has headache but not migraine. LE weakness symmetrical, no numbness or tingling. With falls, reports usually [address] Frequently uses cane or walker. No dizziness. BP well-managed. Uses electric tricycle. Has recumbant exercise bike, reports not using, has tendency to overdo. 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 Stool in shower, can dress self. Trip to [place] next week, has anxiety about being able to tolerate. Prior Treatments and Tests muscle biopsy negative [facility] neurologist States MS and ALS ruled out as diagnoses. Future Testing and Treatments Planned Spoke today with Claudy Sotelo, doctor inclusion body myositis specialist at [facility] in [place]; has February 16 appointment Patient reports a second muscle biopsy recommended by [facility] physician Treatment Goals Patient/Caregiver Goals Improve strength/maintain, establish exercise program. Hoping for aquatic therapy. Had difficulty getting in/out of pool and felt uncoordinated last time in pool. Knows how to swim, but body has changed and it felt very difficult. Prior Functional Status Baseline Function- ADL's Independent Baseline Function- Mobility Independent Baseline Function- Gait independent without device Baseline Function- Work/School retired Baseline Function- Recreation/Hobbies walk, bike, hike Current Functional Impairments (Reported) Functional Limitations- ADL's slow, fatiguing Functional Limitations- Mobility/Gait very limited with c/o SOB, frequent rest breaks Functional Limitations- Work/School retired Functional Limitations- Recreation/ unable except has electric Hobbies tricycle PT-OP-C Subjective Start: 01/05/19 16:21 Freq: Status: Active Protocol: Document 03/08/19 12:58 SP (Rec: 03/08/19 15:11 SP [email or web address]) OP-PT Subjective Patient Comments Patient Comments Pt reported today is a good day, not to tired. Pt stated has been compliant with coordinating outings, ADLs with HEP and or bike each day. Pt is noticing improvement in balance and strength, hasn't fallen in quite a while. PT-OP-D Balance Start: 01/05/19 16:21 Freq: Status: Active Protocol: Document 01/06/19 12:57 SAK (Rec: 01/09/19 12:55 SAK [id number]) OP-PT Balance Assessment Sitting Balance Static Sitting Balance Ability Normal Dynamic Sitting Balance Ability Normal Standing Balance Static Standing Balance Ability Fair Dynamic Standing Balance Ability Fair Balance Tests Other Other Balance Tests Performed Observation only, no objective tests due to fatigue from strength testing. Will do next session. Hebert Fall Scale Copyright Permission PT-OP-E Functional Tests Start: 01/05/19 16:21 Freq: Status: Active Protocol: Document 03/08/19 12:58 SP (Rec: 03/08/19 15:11 SP [email or web address]) Functional Tests 6 Minute Walk Test Distance 755 ft Device Used none initially, SC preferred after 1/2 distance Comments took 4 brief stopped rest breaks, cuing for awareness of pacing Timed Up and Go (TUG) Comments 13.04 sec, slight wt shift off midline during turn to L Other Sheth Functional Balance Scale Name of Test Sheth Functional Balance Scale Score 51/56 Comment Needed rest breaks between testing for recovery time. PT-OP-G Mobility & Gait Start: 01/05/19 16:21 Freq: Status: Active Protocol: Document 01/06/19 12:57 [facility] (Rec: 01/09/19 12:55 [facility] [id number]) OP Mobility Evaluation Bed Mobility Rolling Indep Supine to and from Sit Indep Transfers Sit to Stand Indep with use of hands Bed to Chair Transfers Independent without device Car Transfers Independent Floor Transfers with effort per patient report Functional Movements Lifting and Carrying difficulty per patient report Squats difficult and exhausting Running Assessment unable OP Gait Assessment Gait Gait Assistance Required: Independent Distance (Feet) 50 Assistive Devices Assistive Device None Orthotic/Prosthetic Devices or Brace: No Gait Deviations General Gait Pattern Decreased Stride Length, Decreased Feet Clearance Comments Gait Comments slow speed PT-OP-H Neuro Start: 01/05/19 16:21 Freq: Status: Active Protocol: Document 01/06/19 12:57 [facility] (Rec: 01/09/19 12:55 [facility] [id number]) Sensation Evaluation Gross Sensation Gross Sensation WNL Comments Summary Comments denies N/T Muscle Tone Tone Assessment girma UE and LE Flexor Tone Description Normal Extensor Tone Description Normal PT-OP-J Posture/Palpation/Skin Start: 01/05/19 16:21 Freq: Status: Active Protocol: Document 01/06/19 12:57 [facility] (Rec: 01/09/19 12:55 [facility] [id number]) Skin Assessment Other Assessments Skin Assessment Comments intact, no edema or brusing evident PT-OP-K Range of Motion Start: 01/05/19 16:21 Freq: Status: Active Protocol: Document 01/06/19 12:57 [facility] (Rec: 01/09/19 12:55 [facility] [id number]) Cervical Spine Range of Motion Cervical Spine Active Comments WNL Lumbar Spine Range of Motion Lumbar Spine Active Comments WNL Shoulder Goniometric Range of Motion Shoulder left Shoulder ROM WFL Yes right Shoulder ROM WFL Yes Elbow/Forearm Range of Motion Elbow/Forearm girma Elbow/Forearm ROM WFL Yes Wrist Goniometric Range of Motion Wrist girma Wrist ROM WFL Yes Hip Goniometric Range of Motion Hip girma Hip ROM WFL Yes Knee Goniometric Range of Motion Knee girma Knee ROM WFL Yes Ankle and Foot Goniometric Range of Motion Ankle and Foot girma Ankle/Foot ROM WFL Yes PT-OP-M Strength Start: 01/05/19 16:21 Freq: Status: Active Protocol: Document 03/08/19 12:58 SP (Rec: 03/08/19 15:11 SP [email or web address]) Hand Postal Sorting Officer/Pinch Strength Hand Strength Left Postal Sorting Officer (lbs) 21 Comments 40, 20, 20 lbs elbow bent rested on chair arm at side. Right Postal Sorting Officer (lbs) 26.66 Comments 20, 20, 22 lbs elbow bent rested on chair arm at side. PT-OP-Q Treatments Start: 01/05/19 16:21 Freq: Status: Active Protocol: Document 03/08/19 12:58 SP (Rec: 03/08/19 15:11 SP [email or web address]) Therapeutic Exercises Standing Exercises LE strength and balance ex Standing Exercise Name Review HEP: HRTR, standing march, tandem stance, sidestepping, SLS Side bilateral Resistance AROM Equipment Used none Reps/Minutes 2x10 each Comments Recall 4/6, rest breaks needed between exercises PT-OP-S Aquatic Treatment Start: 01/05/19 16:21 Freq: Status: Active Protocol: Document 02/23/19 16:06 SAK (Rec: 02/23/19 16:24 SAK [id number]) Aquatics Treatment Pool Entry/Exit Pool Entry/Exit Method Stairs Assistance Standby Assistance,Verbal Cues Water Walking Sideways Water Level Chest Level Level of Assistance Standby Assistance,Verbal Cues Comments UE support Backwards Water Level Chest Level Level of Assistance Standby Assistance,Verbal Cues Comments UE support Forwards Water Level Chest Level Level of Assistance Standby Assistance,Verbal Cues Comments UE support Lower Extremity Exercises side to side weight-shifts Body Position Standing Water Level Chest Level Reps/Duration 10x squats Body Position Standing Water Level Chest Level Reps/Duration 10x Spinal Exercises DKTC, SKTC Body Position Standing Water Level [place] Equipment at wall Reps/Duration 2x [place] Activities [place] Activities Bicycle,Running Other Activities deep water hang Equipment [place] float Duration 10 Comments slow pace Swim Strokes Elementary Backstroke Other Equipment Used [place] float Laps/Duration 3 min Comments slow pace Other water recovery Details supine to stand Reps/Duration 3x Comments mod assist PT-OP-T Assessment and Plan Start: 01/05/19 16:21 Freq: Status: Active Protocol: Document 03/08/19 14:56 SP (Rec: 03/08/19 15:11 SP [email or web address]) Physical Therapy Assessment Assessment Summary Assessment Pt tolerated HEP review and balance testing well. Educated patient on importance of pacing and rest breaks needed for recovery. Noted slight SOB , increased with conversation. Pt will continue 1 day a week aquatic PT and 1 day a week land PT. Physical Therapy Plan Frequency and Duration Frequency of Treatment 1x/Week Duration of Treatment 12 Plan of Care Start Date 01/06/19 Plan of Care End Date 04/08/19 Next Visit Focus/Plan Next Note Type Treatment Note Next Visit Plan Continue progress UE & LE strengthening, balance, modify exercises as indicated to work toward personal goal of increase endurance for activities of interest.
--- NOTE | 2019-03-14 12:26 | PT.OTN ---
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) Muscle weakness (generalized) (03/14/19) Physical Therapy Treatment Note PT-OP-A Visit Information Start: 01/05/19 16:21 Freq: Status: Active Protocol: Document 03/14/19 11:20 SP (Rec: 03/14/19 12:26 SP [email or web address]) Out-Patient Physical Therapy Visit Information Visit Information Visit Type Treatment Note Visit Start Time 10:35 Visit Stop Time 11:20 Total Visit Minutes 45 Visit Number 5 Number of CORRESPONDENCE DICTATOR Visits 2 PT-OP-B Current Condition Start: 01/05/19 16:21 Freq: Status: Active Protocol: Document 01/06/19 12:57 SAK (Rec: 01/06/19 13:25 SAK [id number]) Current Condition History of Current Condition Onset Date 4 yrs Current Complaints LE weakness and achiness, SOB History of Current Condition Gradual progressive weakness, started using cane May 2017. Has been seeing specialists and having tests with diagnosis of possible indeterminate type of muscular dystrophy. Also reports exercise intolerance with SOB, increasing fatigue, need for much slower pace. The more I do the worse I feel . Hoping to see if she can establish an exercise program that will not exhaust her. Requesting possible aquatic therapy. Difficulty getting out of chairs, off floor. 2018 8-10 falls, this year being more careful, last fall was in July. Has not suffererd injury. Started Prednisone yesterday 15 mg. Prior experience with Prednisone caused migraine; has headache but not migraine. LE weakness symmetrical, no numbness or tingling. With falls, reports usually [address] Frequently uses cane or walker. No dizziness. BP well-managed. Uses electric tricycle. Has recumbant exercise bike, reports not using, has tendency to overdo. 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 Stool in shower, can dress self. Trip to [place] next week, has anxiety about being able to tolerate. Prior Treatments and Tests muscle biopsy negative [facility] neurologist States MS and ALS ruled out as diagnoses. Future Testing and Treatments Planned Spoke today with Claudy Sotelo, doctor inclusion body myositis specialist at [facility] in [place]; has February 16 appointment Patient reports a second muscle biopsy recommended by [facility] physician Treatment Goals Patient/Caregiver Goals Improve strength/maintain, establish exercise program. Hoping for aquatic therapy. Had difficulty getting in/out of pool and felt uncoordinated last time in pool. Knows how to swim, but body has changed and it felt very difficult. Prior Functional Status Baseline Function- ADL's Independent Baseline Function- Mobility Independent Baseline Function- Gait independent without device Baseline Function- Work/School retired Baseline Function- Recreation/Hobbies walk, bike, hike Current Functional Impairments (Reported) Functional Limitations- ADL's slow, fatiguing Functional Limitations- Mobility/Gait very limited with c/o SOB, frequent rest breaks Functional Limitations- Work/School retired Functional Limitations- Recreation/ unable except has electric Hobbies tricycle PT-OP-C Subjective Start: 01/05/19 16:21 Freq: Status: Active Protocol: Document 03/14/19 11:20 SP (Rec: 03/14/19 12:26 SP [email or web address]) OP-PT Subjective Patient Comments Patient Comments Pt reported not the best day today, tired and lower endurance. Did some more walking over the weekend in [facility] and was able to go more without her cane. Compliant with HEP. PT-OP-D Balance Start: 01/05/19 16:21 Freq: Status: Active Protocol: Document 01/06/19 12:57 SAK (Rec: 01/09/19 12:55 SAK [id number]) OP-PT Balance Assessment Sitting Balance Static Sitting Balance Ability Normal Dynamic Sitting Balance Ability Normal Standing Balance Static Standing Balance Ability Fair Dynamic Standing Balance Ability Fair Balance Tests Other Other Balance Tests Performed Observation only, no objective tests due to fatigue from strength testing. Will do next session. Hebert Fall Scale Copyright Permission PT-OP-E Functional Tests Start: 01/05/19 16:21 Freq: Status: Active Protocol: Document 03/08/19 12:58 SP (Rec: 03/08/19 15:11 SP [email or web address]) Functional Tests 6 Minute Walk Test Distance 755 ft Device Used none initially, SC preferred after 1/2 distance Comments took 4 brief stopped rest breaks, cuing for awareness of pacing Timed Up and Go (TUG) Comments 13.04 sec, slight wt shift off midline during turn to L Other Sheth Functional Balance Scale Name of Test Sheth Functional Balance Scale Score 51/56 Comment Needed rest breaks between testing for recovery time. PT-OP-G Mobility & Gait Start: 01/05/19 16:21 Freq: Status: Active Protocol: Document 01/06/19 12:57 [facility] (Rec: 01/09/19 12:55 [facility] [id number]) OP Mobility Evaluation Bed Mobility Rolling Indep Supine to and from Sit Indep Transfers Sit to Stand Indep with use of hands Bed to Chair Transfers Independent without device Car Transfers Independent Floor Transfers with effort per patient report Functional Movements Lifting and Carrying difficulty per patient report Squats difficult and exhausting Running Assessment unable OP Gait Assessment Gait Gait Assistance Required: Independent Distance (Feet) 50 Assistive Devices Assistive Device None Orthotic/Prosthetic Devices or Brace: No Gait Deviations General Gait Pattern Decreased Stride Length, Decreased Feet Clearance Comments Gait Comments slow speed PT-OP-H Neuro Start: 01/05/19 16:21 Freq: Status: Active Protocol: Document 01/06/19 12:57 [facility] (Rec: 01/09/19 12:55 [facility] [id number]) Sensation Evaluation Gross Sensation Gross Sensation WNL Comments Summary Comments denies N/T Muscle Tone Tone Assessment girma UE and LE Flexor Tone Description Normal Extensor Tone Description Normal PT-OP-J Posture/Palpation/Skin Start: 01/05/19 16:21 Freq: Status: Active Protocol: Document 01/06/19 12:57 [facility] (Rec: 01/09/19 12:55 [facility] [id number]) Skin Assessment Other Assessments Skin Assessment Comments intact, no edema or brusing evident PT-OP-K Range of Motion Start: 01/05/19 16:21 Freq: Status: Active Protocol: Document 01/06/19 12:57 [facility] (Rec: 01/09/19 12:55 [facility] [id number]) Cervical Spine Range of Motion Cervical Spine Active Comments WNL Lumbar Spine Range of Motion Lumbar Spine Active Comments WNL Shoulder Goniometric Range of Motion Shoulder left Shoulder ROM WFL Yes right Shoulder ROM WFL Yes Elbow/Forearm Range of Motion Elbow/Forearm girma Elbow/Forearm ROM WFL Yes Wrist Goniometric Range of Motion Wrist girma Wrist ROM WFL Yes Hip Goniometric Range of Motion Hip girma Hip ROM WFL Yes Knee Goniometric Range of Motion Knee girma Knee ROM WFL Yes Ankle and Foot Goniometric Range of Motion Ankle and Foot girma Ankle/Foot ROM WFL Yes PT-OP-M Strength Start: 01/05/19 16:21 Freq: Status: Active Protocol: Document 03/08/19 12:58 SP (Rec: 03/08/19 15:11 SP [email or web address]) Hand Stylist Assistant/Pinch Strength Hand Strength Left Stylist Assistant (lbs) 21 Comments 40, 20, 20 lbs elbow bent rested on chair arm at side. Right Stylist Assistant (lbs) 26.66 Comments 20, 20, 22 lbs elbow bent rested on chair arm at side. PT-OP-Q Treatments Start: 01/05/19 16:21 Freq: Status: Active Protocol: Document 03/14/19 11:20 SP (Rec: 03/14/19 12:26 SP [email or web address]) Cardio Equipment Recumbent Elliptical (Biodex) Duration (Minutes) 5 Resistance level 1 Therapeutic Exercises Standing Exercises Eccentric step down Standing Exercise Name Lateral step downs Equipment Used 4 step Reps/Minutes 3x10 reps Comments alternating BLE 4 way hip Standing Exercise Name Flex, ext, abd, add Side right Resistance OTB Reps/Minutes x5-10 reps each Comments R and L LE, level one TB provided HEP. Cued for slow pacing, rest PT-OP-S Aquatic Treatment Start: 01/05/19 16:21 Freq: Status: Active Protocol: Document 02/23/19 16:06 SAK (Rec: 02/23/19 16:24 SAK [id number]) Aquatics Treatment Pool Entry/Exit Pool Entry/Exit Method Stairs Assistance Standby Assistance,Verbal Cues Water Walking Sideways Water Level Chest Level Level of Assistance Standby Assistance,Verbal Cues Comments UE support Backwards Water Level Chest Level Level of Assistance Standby Assistance,Verbal Cues Comments UE support Forwards Water Level Chest Level Level of Assistance Standby Assistance,Verbal Cues Comments UE support Lower Extremity Exercises side to side weight-shifts Body Position Standing Water Level Chest Level Reps/Duration 10x squats Body Position Standing Water Level Chest Level Reps/Duration 10x Spinal Exercises DKTC, SKTC Body Position Standing Water Level [place] Equipment at wall Reps/Duration 2x [place] Activities [place] Activities Bicycle,Running Other Activities deep water hang Equipment [place] float Duration 10 Comments slow pace [employer] Backstroke Other Equipment Used [place] float Laps/Duration 3 min Comments slow pace Other water recovery Details supine to stand Reps/Duration 3x Comments mod assist PT-OP-T Assessment and Plan Start: 01/05/19 16:21 Freq: Status: Active Protocol: Document 03/14/19 11:20 SP (Rec: 03/14/19 12:26 SP [email or web address]) Physical Therapy Assessment Rehab Potential Rehabilitation Potential Fair Assessment Summary Assessment Pt required standing rest breaks between each exercise and seated rest break between BLE for recovery. Cued for upright posture with level pelvis and contact with back of a chair for safety and facilitation of glut activation. Low endurance today noted, and occasional SOB improved with slower pacing feedback. Physical Therapy Plan Frequency and Duration Frequency of Treatment 1x/Week Duration of Treatment 12 Plan of Care Start Date 01/06/19 Plan of Care End Date 04/08/19 Next Visit Focus/Plan Next Note Type Treatment Note Next Visit Plan Continue progress UE & LE strengthening, balance, modify exercises as indicated to work toward personal goal of increase endurance for activities of interest.
--- NOTE | 2019-03-21 15:57 | PT.OTN ---
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) Muscle weakness (generalized) (03/14/19) Physical Therapy Treatment Note PT-OP-A Visit Information Start: 01/05/19 16:21 Freq: Status: Active Protocol: Document 03/21/19 10:15 LJ (Rec: 03/21/19 15:57 LJ [id number]) Out-Patient Physical Therapy Visit Information Visit Information Visit Type Aquatic Treatment Note Visit Start Time 10:15 Visit Stop Time 11:00 Total Visit Minutes 45 Visit Number 3 Number of ENVIRONMENTAL SCIENCES PROFESSOR Visits 3 PT-OP-B Current Condition Start: 01/05/19 16:21 Freq: Status: Active Protocol: Document 01/06/19 12:57 SAK (Rec: 01/06/19 13:25 SAK [id number]) Current Condition History of Current Condition Onset Date 4 yrs Current Complaints LE weakness and achiness, SOB History of Current Condition Gradual progressive weakness, started using cane May 2017. Has been seeing specialists and having tests with diagnosis of possible indeterminate type of muscular dystrophy. Also reports exercise intolerance with SOB, increasing fatigue, need for much slower pace. The more I do the worse I feel . Hoping to see if she can establish an exercise program that will not exhaust her. Requesting possible aquatic therapy. Difficulty getting out of chairs, off floor. 2018 8-10 falls, this year being more careful, last fall was in July. Has not suffererd injury. Started Prednisone yesterday 15 mg. Prior experience with Prednisone caused migraine; has headache but not migraine. LE weakness symmetrical, no numbness or tingling. With falls, reports usually [address] Frequently uses cane or walker. No dizziness. BP well-managed. Uses electric tricycle. Has recumbant exercise bike, reports not using, has tendency to overdo. 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 Stool in shower, can dress self. Trip to [place] next week, has anxiety about being able to tolerate. Prior Treatments and Tests muscle biopsy negative [facility] neurologist States MS and ALS ruled out as diagnoses. Future Testing and Treatments Planned Spoke today with Claudy Sotelo, doctor inclusion body myositis specialist at [facility] in [place]; has February 16 appointment Patient reports a second muscle biopsy recommended by [facility] physician Treatment Goals Patient/Caregiver Goals Improve strength/maintain, establish exercise program. Hoping for aquatic therapy. Had difficulty getting in/out of pool and felt uncoordinated last time in pool. Knows how to swim, but body has changed and it felt very difficult. Prior Functional Status Baseline Function- ADL's Independent Baseline Function- Mobility Independent Baseline Function- Gait independent without device Baseline Function- Work/School retired Baseline Function- Recreation/Hobbies walk, bike, hike Current Functional Impairments (Reported) Functional Limitations- ADL's slow, fatiguing Functional Limitations- Mobility/Gait very limited with c/o SOB, frequent rest breaks Functional Limitations- Work/School retired Functional Limitations- Recreation/ unable except has electric Hobbies tricycle PT-OP-C Subjective Start: 01/05/19 16:21 Freq: Status: Active Protocol: Document 03/21/19 10:15 LJ (Rec: 03/21/19 15:57 LJ [id number]) OP-PT Subjective Patient Comments Patient Comments Pt states she is feeling good this day. She feels her balance is improving. PT-OP-D Balance Start: 01/05/19 16:21 Freq: Status: Active Protocol: Document 01/06/19 12:57 SAK (Rec: 01/09/19 12:55 SAK [id number]) OP-PT Balance Assessment Sitting Balance Static Sitting Balance Ability Normal Dynamic Sitting Balance Ability Normal Standing Balance Static Standing Balance Ability Fair Dynamic Standing Balance Ability Fair Balance Tests Other Other Balance Tests Performed Observation only, no objective tests due to fatigue from strength testing. Will do next session. Hebert Fall Scale Copyright Permission PT-OP-E Functional Tests Start: 01/05/19 16:21 Freq: Status: Active Protocol: Document 03/08/19 12:58 SP (Rec: 03/08/19 15:11 SP [email or web address]) Functional Tests 6 Minute Walk Test Distance 755 ft Device Used none initially, SC preferred after 1/2 distance Comments took 4 brief stopped rest breaks, cuing for awareness of pacing Timed Up and Go (TUG) Comments 13.04 sec, slight wt shift off midline during turn to L Other Sheth Functional Balance Scale Name of Test Sheth Functional Balance Scale Score 51/56 Comment Needed rest breaks between testing for recovery time. PT-OP-G Mobility & Gait Start: 01/05/19 16:21 Freq: Status: Active Protocol: Document 01/06/19 12:57 [facility] (Rec: 01/09/19 12:55 [facility] [id number]) OP Mobility Evaluation Bed Mobility Rolling Indep Supine to and from Sit Indep Transfers Sit to Stand Indep with use of hands Bed to Chair Transfers Independent without device Car Transfers Independent Floor Transfers with effort per patient report Functional Movements Lifting and Carrying difficulty per patient report Squats difficult and exhausting Running Assessment unable OP Gait Assessment Gait Gait Assistance Required: Independent Distance (Feet) 50 Assistive Devices Assistive Device None Orthotic/Prosthetic Devices or Brace: No Gait Deviations General Gait Pattern Decreased Stride Length, Decreased Feet Clearance Comments Gait Comments slow speed PT-OP-H Neuro Start: 01/05/19 16:21 Freq: Status: Active Protocol: Document 01/06/19 12:57 [facility] (Rec: 01/09/19 12:55 [facility] [id number]) Sensation Evaluation Gross Sensation Gross Sensation WNL Comments Summary Comments denies N/T Muscle Tone Tone Assessment girma UE and LE Flexor Tone Description Normal Extensor Tone Description Normal PT-OP-J Posture/Palpation/Skin Start: 01/05/19 16:21 Freq: Status: Active Protocol: Document 01/06/19 12:57 [facility] (Rec: 01/09/19 12:55 [facility] [id number]) Skin Assessment Other Assessments Skin Assessment Comments intact, no edema or brusing evident PT-OP-K Range of Motion Start: 01/05/19 16:21 Freq: Status: Active Protocol: Document 01/06/19 12:57 [facility] (Rec: 01/09/19 12:55 [facility] [id number]) Cervical Spine Range of Motion Cervical Spine Active Comments WNL Lumbar Spine Range of Motion Lumbar Spine Active Comments WNL Shoulder Goniometric Range of Motion Shoulder left Shoulder ROM WFL Yes right Shoulder ROM WFL Yes Elbow/Forearm Range of Motion Elbow/Forearm girma Elbow/Forearm ROM WFL Yes Wrist Goniometric Range of Motion Wrist girma Wrist ROM WFL Yes Hip Goniometric Range of Motion Hip girma Hip ROM WFL Yes Knee Goniometric Range of Motion Knee girma Knee ROM WFL Yes Ankle and Foot Goniometric Range of Motion Ankle and Foot girma Ankle/Foot ROM WFL Yes PT-OP-M Strength Start: 01/05/19 16:21 Freq: Status: Active Protocol: Document 03/08/19 12:58 SP (Rec: 03/08/19 15:11 SP [email or web address]) Hand Contact Lens Lathe Operator/Pinch Strength Hand Strength Left Contact Lens Lathe Operator (lbs) 21 Comments 40, 20, 20 lbs elbow bent rested on chair arm at side. Right Contact Lens Lathe Operator (lbs) 26.66 Comments 20, 20, 22 lbs elbow bent rested on chair arm at side. PT-OP-Q Treatments Start: 01/05/19 16:21 Freq: Status: Active Protocol: Document 03/14/19 11:20 SP (Rec: 03/14/19 12:26 SP [email or web address]) Cardio Equipment Recumbent Elliptical ([facility]) Duration (Minutes) 5 Resistance level 1 Therapeutic Exercises Standing Exercises Eccentric step down Standing Exercise Name Lateral step downs Equipment Used 4 step Reps/Minutes 3x10 reps Comments alternating BLE 4 way hip Standing Exercise Name Flex, ext, abd, add Side right Resistance OTB Reps/Minutes x5-10 reps each Comments R and L LE, level one TB provided HEP. Cued for slow pacing, rest PT-OP-S Aquatic Treatment Start: 01/05/19 16:21 Freq: Status: Active Protocol: Document 03/21/19 10:15 LJ (Rec: 03/21/19 15:57 LJ [id number]) Aquatics Treatment Pool Entry/Exit Pool Entry/Exit Method Stairs Assistance Standby Assistance,Verbal Cues Water Walking quick directional change Water Level Chest Level Level of Assistance Verbal Cues Monster Walk Water Level Chest Level Level of Assistance Verbal Cues Marching Water Level Chest Level Level of Assistance Verbal Cues Sideways Water Level Chest Level Level of Assistance Standby Assistance,Verbal Cues Backwards Water Level Chest Level Level of Assistance Standby Assistance,Verbal Cues Forwards Water Level Chest Level Level of Assistance Standby Assistance,Verbal Cues Lower Extremity Exercises hacky sac Water Level Waist Level Reps/Duration 10x bilat hip flex/ext, ab/ad, circles Body Position Standing Water Level Waist Level Reps/Duration 10 ea Comments gentle side to side weight-shifts Body Position Standing Water Level Chest Level Reps/Duration 10x squats Body Position Standing Water Level Chest Level Reps/Duration 10x Lower Extremity Stretches hip flexor Body Position Standing Water Level Waist Level Equipment Small Noodle Reps/Duration 2x30 Comments at wall quads Body Position Standing Water Level Waist Level Equipment Small Noodle Comments at wall HC Body Position Standing Water Level Waist Level Equipment Small Noodle Reps/Duration 2x30 Comments toes on wall HS Body Position Standing Water Level Waist Level Reps/Duration 2x30 Upper Extremity Exercises flex/ext, ab/ad, horiz ab/ad Body Position Sitting Water Level Neck Level Reps/Duration 10 each direction Comments braced at wall, focus on core stability Spinal Exercises DKTC, SKTC Body Position Standing Water Level [place] Equipment at wall Reps/Duration 2x Balance bilateral and unilateral standing w/perturbations Body Position Standing Water Level Chest Level Reps/Duration 3 min PT-OP-T Assessment and Plan Start: 01/05/19 16:21 Freq: Status: Active Protocol: Document 03/21/19 10:15 NATASHA (Rec: 03/21/19 15:57 NATASHA [id number]) Physical Therapy Assessment Rehab Potential Rehabilitation Potential Fair Evaluation Complexity Number of Personal Factors/Comorbidities 1-2 Number of Body Systems Impaired 3 Clinical Presentation at Evaluation Unstable Impairments Impairments Activity Tolerance,Functional Mobility,Strength Goals Three Impairment strength Short Term Goal (STG) Initiate aquatic therapy and HEP STG Duration 6 wks Care Home Goal (LTG) Establish well-tolerated aquatic exercise program and HEP focused on strengthening and balance for patient with patient demonstrated independence and compliance and demonstrate good knowledge of how to modify depending on symptoms. LTG Duration 12 wks Two Impairment balance Short Term Goal (STG) Complete objective balance testing for baseline measurements STG Duration 6 wks Care Home Goal (LTG) Patient to be safe and independent with gait on level and uneven surfaces with least restrictive device, and have no reported falls. Will be compliant with recommendations for home safety. LTG Duration 12 wks One Impairment activity tolerance Short Term Goal (STG) instruct in energy conservation and pacing STG Duration 6 wks Soaking Pit Operator Goal (LTG) Patient to demonstrate good understanding and compliance with energy conservation and pacing of activities. LTG Duration 12 wks Assessment Summary Assessment Pt had good balance in walking and standing activities. Demonstrated good balance with quick directional changes and single leg standing with perturbations. Able to perform exercises w/o handhold other than occasional correction with hand on wall. Physical Therapy Plan Frequency and Duration Frequency of Treatment 1x/Week Duration of Treatment 12 Plan of Care Start Date 01/06/19 Plan of Care End Date 04/08/19 Next Visit Focus/Plan Next Note Type Treatment Note Next Visit Plan Continue progress UE & LE strengthening, balance, modify exercises as indicated to work toward personal goal of increase endurance for activities of interest.
--- NOTE | 2019-03-28 09:45 | PT.OTN ---
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) Muscle weakness (generalized) (03/28/19) Physical Therapy Treatment Note PT-OP-A Visit Information Start: 01/05/19 16:21 Freq: Status: Active Protocol: Document 03/28/19 09:45 SP (Rec: 03/28/19 11:52 SP [email or web address]) Out-Patient Physical Therapy Visit Information Visit Information Visit Type Treatment Note Visit Start Time 09:00 Visit Stop Time 09:45 Total Visit Minutes 45 Visit Number 7 Number of REVENUE CYCLE ADMINISTRATOR Visits 4 PT-OP-B Current Condition Start: 01/05/19 16:21 Freq: Status: Active Protocol: Document 01/06/19 12:57 SAK (Rec: 01/06/19 13:25 SAK [id number]) Current Condition History of Current Condition Onset Date 4 yrs Current Complaints LE weakness and achiness, SOB History of Current Condition Gradual progressive weakness, started using cane May 2017. Has been seeing specialists and having tests with diagnosis of possible indeterminate type of muscular dystrophy. Also reports exercise intolerance with SOB, increasing fatigue, need for much slower pace. The more I do the worse I feel . Hoping to see if she can establish an exercise program that will not exhaust her. Requesting possible aquatic therapy. Difficulty getting out of chairs, off floor. 2018 8-10 falls, this year being more careful, last fall was in July. Has not suffererd injury. Started Prednisone yesterday 15 mg. Prior experience with Prednisone caused migraine; has headache but not migraine. LE weakness symmetrical, no numbness or tingling. With falls, reports usually [address] Frequently uses cane or walker. No dizziness. BP well-managed. Uses electric tricycle. Has recumbant exercise bike, reports not using, has tendency to overdo. 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 Stool in shower, can dress self. Trip to [place] next week, has anxiety about being able to tolerate. Prior Treatments and Tests muscle biopsy negative [facility] neurologist States MS and ALS ruled out as diagnoses. Future Testing and Treatments Planned Spoke today with Claudy Sotelo, doctor inclusion body myositis specialist at [facility] in [place]; has February 16 appointment Patient reports a second muscle biopsy recommended by [facility] physician Treatment Goals Patient/Caregiver Goals Improve strength/maintain, establish exercise program. Hoping for aquatic therapy. Had difficulty getting in/out of pool and felt uncoordinated last time in pool. Knows how to swim, but body has changed and it felt very difficult. Prior Functional Status Baseline Function- ADL's Independent Baseline Function- Mobility Independent Baseline Function- Gait independent without device Baseline Function- Work/School retired Baseline Function- Recreation/Hobbies walk, bike, hike Current Functional Impairments (Reported) Functional Limitations- ADL's slow, fatiguing Functional Limitations- Mobility/Gait very limited with c/o SOB, frequent rest breaks Functional Limitations- Work/School retired Functional Limitations- Recreation/ unable except has electric Hobbies tricycle PT-OP-C Subjective Start: 01/05/19 16:21 Freq: Status: Active Protocol: Document 03/28/19 09:45 SP (Rec: 03/28/19 11:52 SP [email or web address]) OP-PT Subjective Patient Comments Patient Comments Pt stated not seeing significant change in increased stamina, still has to choose between activities secondary to lack of endurance through the day, frustrating. No pain or changes since last tx. Pt stated wants to try and keep with same therapists pool/land for consistancy. Unable to make early am appts secondary to needing time to recovery with the basic am ADLs. PT-OP-D Balance Start: 01/05/19 16:21 Freq: Status: Active Protocol: Document 01/06/19 12:57 SAK (Rec: 01/09/19 12:55 SAK [id number]) OP-PT Balance Assessment Sitting Balance Static Sitting Balance Ability Normal Dynamic Sitting Balance Ability Normal Standing Balance Static Standing Balance Ability Fair Dynamic Standing Balance Ability Fair Balance Tests Other Other Balance Tests Performed Observation only, no objective tests due to fatigue from strength testing. Will do next session. Hebert Fall Scale Copyright Permission PT-OP-E Functional Tests Start: 01/05/19 16:21 Freq: Status: Active Protocol: Document 03/08/19 12:58 SP (Rec: 03/08/19 15:11 SP [email or web address]) Functional Tests 6 Minute Walk Test Distance 755 ft Device Used none initially, SC preferred after 1/2 distance Comments took 4 brief stopped rest breaks, cuing for awareness of pacing Timed Up and Go (TUG) Comments 13.04 sec, slight wt shift off midline during turn to L Other Sheth Functional Balance Scale Name of Test Sheth Functional Balance Scale Score 51/56 Comment Needed rest breaks between testing for recovery time. PT-OP-G Mobility & Gait Start: 01/05/19 16:21 Freq: Status: Active Protocol: Document 01/06/19 12:57 [facility] (Rec: 01/09/19 12:55 [facility] [id number]) OP Mobility Evaluation Bed Mobility Rolling Indep Supine to and from Sit Indep Transfers Sit to Stand Indep with use of hands Bed to Chair Transfers Independent without device Car Transfers Independent Floor Transfers with effort per patient report Functional Movements Lifting and Carrying difficulty per patient report Squats difficult and exhausting Running Assessment unable OP Gait Assessment Gait Gait Assistance Required: Independent Distance (Feet) 50 Assistive Devices Assistive Device None Orthotic/Prosthetic Devices or Brace: No Gait Deviations General Gait Pattern Decreased Stride Length, Decreased Feet Clearance Comments Gait Comments slow speed PT-OP-H Neuro Start: 01/05/19 16:21 Freq: Status: Active Protocol: Document 01/06/19 12:57 [facility] (Rec: 01/09/19 12:55 [facility] [id number]) Sensation Evaluation Gross Sensation Gross Sensation WNL Comments Summary Comments denies N/T Muscle Tone Tone Assessment girma UE and LE Flexor Tone Description Normal Extensor Tone Description Normal PT-OP-J Posture/Palpation/Skin Start: 01/05/19 16:21 Freq: Status: Active Protocol: Document 01/06/19 12:57 [facility] (Rec: 01/09/19 12:55 [facility] [id number]) Skin Assessment Other Assessments Skin Assessment Comments intact, no edema or brusing evident PT-OP-K Range of Motion Start: 01/05/19 16:21 Freq: Status: Active Protocol: Document 01/06/19 12:57 SAK (Rec: 01/09/19 12:55 [facility] [id number]) Cervical Spine Range of Motion Cervical Spine Active Comments WNL Lumbar Spine Range of Motion Lumbar Spine Active Comments WNL Shoulder Goniometric Range of Motion Shoulder left Shoulder ROM WFL Yes right Shoulder ROM WFL Yes Elbow/Forearm Range of Motion Elbow/Forearm girma Elbow/Forearm ROM WFL Yes Wrist Goniometric Range of Motion Wrist girma Wrist ROM WFL Yes Hip Goniometric Range of Motion Hip girma Hip ROM WFL Yes Knee Goniometric Range of Motion Knee girma Knee ROM WFL Yes Ankle and Foot Goniometric Range of Motion Ankle and Foot girma Ankle/Foot ROM WFL Yes PT-OP-M Strength Start: 01/05/19 16:21 Freq: Status: Active Protocol: Document 03/08/19 12:58 SP (Rec: 03/08/19 15:11 SP [email or web address]) Hand Kelly Machine Operator/Pinch Strength Hand Strength Left Kelly Machine Operator (lbs) 21 Comments 40, 20, 20 lbs elbow bent rested on chair arm at side. Right Kelly Machine Operator (lbs) 26.66 Comments 20, 20, 22 lbs elbow bent rested on chair arm at side. PT-OP-Q Treatments Start: 01/05/19 16:21 Freq: Status: Active Protocol: Document 03/28/19 09:45 SP (Rec: 03/28/19 11:52 SP [email or web address]) Cardio Equipment Recumbent Bicycle Duration (Minutes) 8 Resistance 1 Seat Position 1 Gym Equipment Shuttle Balance 1 Details Blue, red Reps/Duration 3 min Comments wt shift F/B/side R and L, contact as needed (gait belt on safety-CGA), no LOB Therapeutic Exercises Standing Exercises Eccentric step down Standing Exercise Name Lateral step downs Equipment Used 4 step Reps/Minutes 3x10 reps Comments alternating BLE Neuro Re-Education Treatment Balance Activities jose f stepping Details side stepping Surface level Equipment hurdles x5 Reps/Duration 10 ft x3 laps R and L Comments Cued slow pacing, patterning for safety, stop if SOB recovery as needed between lengths, COG over BERNARDO SLS Surface level Equipment rail for contact as needed Reps/Duration 22 sec R, 21 sec L Comments Cued for COG over BERNARDO and allow trunk movement recover not just step down recover. PT-OP-S Aquatic Treatment Start: 01/05/19 16:21 Freq: Status: Active Protocol: Document 03/21/19 10:15 LJ (Rec: 03/21/19 15:57 LJ [id number]) Aquatics Treatment Pool Entry/Exit Pool Entry/Exit Method Stairs Assistance Standby Assistance,Verbal Cues Water Walking quick directional change Water Level Chest Level Level of Assistance Verbal Cues Monster Walk Water Level Chest Level Level of Assistance Verbal Cues Marching Water Level Chest Level Level of Assistance Verbal Cues Sideways Water Level Chest Level Level of Assistance Standby Assistance,Verbal Cues Backwards Water Level Chest Level Level of Assistance Standby Assistance,Verbal Cues Forwards Water Level Chest Level Level of Assistance Standby Assistance,Verbal Cues Lower Extremity Exercises hacky sac Water Level Waist Level Reps/Duration 10x bilat hip flex/ext, ab/ad, circles Body Position Standing Water Level Waist Level Reps/Duration 10 ea Comments gentle side to side weight-shifts Body Position Standing Water Level Chest Level Reps/Duration 10x squats Body Position Standing Water Level Chest Level Reps/Duration 10x Lower Extremity Stretches hip flexor Body Position Standing Water Level Waist Level Equipment Small Noodle Reps/Duration 2x30 Comments at wall quads Body Position Standing Water Level Waist Level Equipment Small Noodle Comments at wall HC Body Position Standing Water Level Waist Level Equipment Small Noodle Reps/Duration 2x30 Comments toes on wall HS Body Position Standing Water Level Waist Level Reps/Duration 2x30 Upper Extremity Exercises flex/ext, ab/ad, horiz ab/ad Body Position Sitting Water Level Neck Level Reps/Duration 10 each direction Comments braced at wall, focus on core stability Spinal Exercises DKTC, SKTC Body Position Standing Water Level Berthold Equipment at wall Reps/Duration 2x Balance bilateral and unilateral standing w/perturbations Body Position Standing Water Level Chest Level Reps/Duration 3 min PT-OP-T Assessment and Plan Start: 01/05/19 16:21 Freq: Status: Active Protocol: Document 03/28/19 09:45 SP (Rec: 03/28/19 11:52 SP [email or web address]) Physical Therapy Assessment Assessment Summary Assessment Pt required cues for slow pacing reclined bike, balance jose f stepping, step downs for rest recovery and energy conservation to decrease noted SOB with improvement. Pt is able to tolerate more challenging balance activities to work toward increasing activity tolerance for outings without adjusting ADLs. Physical Therapy Plan Frequency and Duration Frequency of Treatment 1x/Week Duration of Treatment 12 Plan of Care Start Date 01/06/19 Plan of Care End Date 04/08/19 Next Visit Focus/Plan Next Note Type Treatment Note Next Visit Plan FOllow up appt with PT. Continue progress UE & LE strengthening, balance, modify exercises as indicated to work toward personal goal of increase endurance for activities of interest.
--- NOTE | 2019-03-31 16:42 | PT.OPPN ---
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) Muscle weakness (generalized) (03/31/19) Physical Therapy Progress Note PT-OP-A Visit Information Start: 01/05/19 16:21 Freq: Status: Active Protocol: Document 03/31/19 08:15 NFW (Rec: 03/31/19 16:42 NFW [id number]) Out-Patient Physical Therapy Visit Information Visit Information Visit Type Progress Note Visit Start Time 08:15 Visit Stop Time 09:00 Total Visit Minutes 45 Visit Number 8 PT-OP-B Current Condition Start: 01/05/19 16:21 Freq: Status: Active Protocol: Document 01/06/19 12:57 SAK (Rec: 01/06/19 13:25 SAK [id number]) Current Condition History of Current Condition Onset Date 4 yrs Current Complaints LE weakness and achiness, SOB History of Current Condition Gradual progressive weakness, started using cane May 2017. Has been seeing specialists and having tests with diagnosis of possible indeterminate type of muscular dystrophy. Also reports exercise intolerance with SOB, increasing fatigue, need for much slower pace. The more I do the worse I feel . Hoping to see if she can establish an exercise program that will not exhaust her. Requesting possible aquatic therapy. Difficulty getting out of chairs, off floor. 2018 8-10 falls, this year being more careful, last fall was in July. Has not suffererd injury. Started Prednisone yesterday 15 mg. Prior experience with Prednisone caused migraine; has headache but not migraine. LE weakness symmetrical, no numbness or tingling. With falls, reports usually [address] Frequently uses cane or walker. No dizziness. BP well-managed. Uses electric tricycle. Has recumbant exercise bike, reports not using, has tendency to overdo. 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 Stool in shower, can dress self. Trip to [place] next week, has anxiety about being able to tolerate. Prior Treatments and Tests muscle biopsy negative [facility] neurologist States MS and ALS ruled out as diagnoses. Future Testing and Treatments Planned Spoke today with Claudy Sotelo, doctor inclusion body myositis specialist at [facility] in [place]; has February 16 appointment Patient reports a second muscle biopsy recommended by [facility] physician Treatment Goals Patient/Caregiver Goals Improve strength/maintain, establish exercise program. Hoping for aquatic therapy. Had difficulty getting in/out of pool and felt uncoordinated last time in pool. Knows how to swim, but body has changed and it felt very difficult. Prior Functional Status Baseline Function- ADL's Independent Baseline Function- Mobility Independent Baseline Function- Gait independent without device Baseline Function- Work/School retired Baseline Function- Recreation/Hobbies walk, bike, hike Current Functional Impairments (Reported) Functional Limitations- ADL's slow, fatiguing Functional Limitations- Mobility/Gait very limited with c/o SOB, frequent rest breaks Functional Limitations- Work/School retired Functional Limitations- Recreation/ unable except has electric Hobbies tricycle PT-OP-C Subjective Start: 01/05/19 16:21 Freq: Status: Active Protocol: Document 03/31/19 08:15 NFW (Rec: 03/31/19 16:42 NFW [id number]) OP-PT Subjective Patient Comments Patient Comments Since initiating PT, pt feels that she is 30% improved. This is noted with improved balance noted when she is getting dressed. She is having to lean against the dresser the whole time. She is also able to walk short distances around her home without the use of her cane. She has been able to double her walking tolerance to one square block. Her phone tracks her steps to an average of 1000/day from the previous 300/day. On occ. she will reach 2400 steps in one day. Patient Reported Progress Improving OP-PT Pain Assessment Comments Pain Comments States pain is now a low ache relieved with medication PT-OP-D Balance Start: 01/05/19 16:21 Freq: Status: Active Protocol: Document 03/31/19 08:15 NFW (Rec: 03/31/19 16:42 NFW [id number]) Balance Tests Single Limb Standing Single Limb- Right 28 Single Limb- Left 13 Sheth Balance Assessment Total Score Sheth Impairment Rating 1 to 19% Impaired (Score 45-55 ) PT-OP-E Functional Tests Start: 01/05/19 16:21 Freq: Status: Active Protocol: Document 03/31/19 08:15 NFW (Rec: 03/31/19 16:42 NFW [id number]) Functional Tests Timed Up and Go (TUG) Score 13.04 Comments Performed 03/08/19 TUG Impairment Rating 1 to <20% Impaired (Score 11) PT-OP-G Mobility & Gait Start: 01/05/19 16:21 Freq: Status: Active Protocol: Document 03/31/19 08:15 NFW (Rec: 03/31/19 16:42 NFW [id number]) OP Mobility Evaluation Functional Movements Lifting and Carrying Difficult for patient to perform Squats 1/3 squats, heels up with good form Running Assessment unable OP Gait Assessment Assistive Devices Assistive Device Straight Cane Comments Gait Comments Left medial list in ambulation . Reveals positive trendelenberg left. PT-OP-H Neuro Start: 01/05/19 16:21 Freq: Status: Active Protocol: Document 01/06/19 12:57 SAK (Rec: 01/09/19 12:55 SAK [id number]) Sensation Evaluation Gross Sensation Gross Sensation WNL Comments Summary Comments denies N/T Muscle Tone Tone Assessment girma UE and LE Flexor Tone Description Normal Extensor Tone Description Normal PT-OP-J Posture/Palpation/Skin Start: 01/05/19 16:21 Freq: Status: Active Protocol: Document 01/06/19 12:57 SAK (Rec: 01/09/19 12:55 SAK [id number]) Skin Assessment Other Assessments Skin Assessment Comments intact, no edema or brusing evident PT-OP-K Range of Motion Start: 01/05/19 16:21 Freq: Status: Active Protocol: Document 01/06/19 12:57 SAK (Rec: 01/09/19 12:55 SAK [id number]) Cervical Spine Range of Motion Cervical Spine Active Comments WNL Lumbar Spine Range of Motion Lumbar Spine Active Comments WNL Shoulder Goniometric Range of Motion Shoulder Measured in Degrees left Shoulder ROM WFL Yes right Shoulder ROM WFL Yes Elbow/Forearm Range of Motion Elbow/Forearm Measured in Degrees girma Elbow/Forearm ROM WFL Yes Wrist Goniometric Range of Motion Wrist Measured in Degrees girma Wrist ROM WFL Yes Hip Goniometric Range of Motion Hip Measured in Degrees girma Hip ROM WFL Yes Knee Goniometric Range of Motion Knee Measured in Degrees girma Knee ROM WFL Yes Ankle and Foot Goniometric Range of Motion Ankle and Foot Measured in Degrees girma Ankle/Foot ROM WFL Yes PT-OP-M Strength Start: 01/05/19 16:21 Freq: Status: Active Protocol: Document 03/08/19 12:58 SP (Rec: 03/08/19 15:11 SP [email or web address]) Hand Charge Weigher/Pinch Strength Hand Strength Left Charge Weigher (lbs) 21 Comments 40, 20, 20 lbs elbow bent rested on chair arm at side. Right Charge Weigher (lbs) 26.66 Comments 20, 20, 22 lbs elbow bent rested on chair arm at side. PT-OP-T Assessment and Plan Start: 01/05/19 16:21 Freq: Status: Active Protocol: Document 03/31/19 08:15 NFW (Rec: 03/31/19 16:42 NFW [id number]) Physical Therapy Assessment Impairments Impairments Activity Tolerance,Functional Mobility,Strength Goals Three Impairment strength Short Term Goal (STG) Initiate aquatic therapy and HEP STG Duration 6 wks Grain Elevator Man Goal (LTG) Establish well-tolerated aquatic exercise program and HEP focused on strengthening and balance for patient with patient demonstrated independence and compliance and demonstrate good knowledge of how to modify depending on symptoms. LTG Duration 12 wks Two Impairment balance Short Term Goal (STG) Complete objective balance testing for baseline measurements STG Duration 6 wks Grain Elevator Man Goal (LTG) Patient to be safe and independent with gait on level and uneven surfaces with least restrictive device, and have no reported falls. Will be compliant with recommendations for home safety. LTG Duration 12 wks One Impairment activity tolerance Short Term Goal (STG) instruct in energy conservation and pacing STG Duration 6 wks Grain Elevator Man Goal (LTG) Patient to demonstrate good understanding and compliance with energy conservation and pacing of activities. LTG Duration 12 wks Assessment Summary Assessment Patient has shown nice progress in strength and in her functional activities. She has residual functional weaknesses in her abdominals, pelvic girdle muscles. She requires further guidance with dynamic balance activities. Physical Therapy Plan Frequency and Duration Frequency of Treatment 1x/Week Duration of Treatment 12 Plan of Care Start Date 03/31/19 Plan of Care End Date 06/23/19 Therapeutic Interventions Therapeutic Interventions Aquatic Therapy,Balance Training,Coordination Training ,Gait Training,Home Exercise Program,Neuromuscular Re- education,Self-Care/Home Management,Therapeutic Activities,Therapeutic Exercises Next Visit Focus/Plan Next Note Type Treatment Note Next Visit Plan Continue progress UE & LE strengthening, balance, modify exercises as indicated to work toward personal goal of increase endurance for activities of interest.
--- NOTE | 2019-03-31 16:47 | PT.OPPN ---
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) Muscle weakness (generalized) (03/31/19) Physical Therapy Progress Note PT-OP-A Visit Information Start: 01/05/19 16:21 Freq: Status: Active Protocol: Document 03/31/19 08:15 NFW (Rec: 03/31/19 16:42 NFW [id number]) Out-Patient Physical Therapy Visit Information Visit Information Visit Type Progress Note Visit Start Time 08:15 Visit Stop Time 09:00 Total Visit Minutes 45 Visit Number 8 PT-OP-B Current Condition Start: 01/05/19 16:21 Freq: Status: Active Protocol: Document 01/06/19 12:57 SAK (Rec: 01/06/19 13:25 SAK [id number]) Current Condition History of Current Condition Onset Date 4 yrs Current Complaints LE weakness and achiness, SOB History of Current Condition Gradual progressive weakness, started using cane May 2017. Has been seeing specialists and having tests with diagnosis of possible indeterminate type of muscular dystrophy. Also reports exercise intolerance with SOB, increasing fatigue, need for much slower pace. The more I do the worse I feel . Hoping to see if she can establish an exercise program that will not exhaust her. Requesting possible aquatic therapy. Difficulty getting out of chairs, off floor. 2018 8-10 falls, this year being more careful, last fall was in July. Has not suffererd injury. Started Prednisone yesterday 15 mg. Prior experience with Prednisone caused migraine; has headache but not migraine. LE weakness symmetrical, no numbness or tingling. With falls, reports usually [address] Frequently uses cane or walker. No dizziness. BP well-managed. Uses electric tricycle. Has recumbant exercise bike, reports not using, has tendency to overdo. 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 Stool in shower, can dress self. Trip to [place] next week, has anxiety about being able to tolerate. Prior Treatments and Tests muscle biopsy negative [facility] neurologist States MS and ALS ruled out as diagnoses. Future Testing and Treatments Planned Spoke today with Claudy Sotelo, doctor inclusion body myositis specialist at [facility] in [place]; has February 16 appointment Patient reports a second muscle biopsy recommended by [facility] physician Treatment Goals Patient/Caregiver Goals Improve strength/maintain, establish exercise program. Hoping for aquatic therapy. Had difficulty getting in/out of pool and felt uncoordinated last time in pool. Knows how to swim, but body has changed and it felt very difficult. Prior Functional Status Baseline Function- ADL's Independent Baseline Function- Mobility Independent Baseline Function- Gait independent without device Baseline Function- Work/School retired Baseline Function- Recreation/Hobbies walk, bike, hike Current Functional Impairments (Reported) Functional Limitations- ADL's slow, fatiguing Functional Limitations- Mobility/Gait very limited with c/o SOB, frequent rest breaks Functional Limitations- Work/School retired Functional Limitations- Recreation/ unable except has electric Hobbies tricycle PT-OP-C Subjective Start: 01/05/19 16:21 Freq: Status: Active Protocol: Document 03/31/19 08:15 NFW (Rec: 03/31/19 16:42 NFW [id number]) OP-PT Subjective Patient Comments Patient Comments Since initiating PT, pt feels that she is 30% improved. This is noted with improved balance noted when she is getting dressed. She is having to lean against the dresser the whole time. She is also able to walk short distances around her home without the use of her cane. She has been able to double her walking tolerance to one square block. Her phone tracks her steps to an average of 1000/day from the previous 300/day. On occ. she will reach 2400 steps in one day. Patient Reported Progress Improving OP-PT Pain Assessment Comments Pain Comments States pain is now a low ache relieved with medication PT-OP-D Balance Start: 01/05/19 16:21 Freq: Status: Active Protocol: Document 03/31/19 08:15 NFW (Rec: 03/31/19 16:42 NFW [id number]) Balance Tests Single Limb Standing Single Limb- Right 28 Single Limb- Left 13 Sheth Balance Assessment Total Score Sheth Impairment Rating 1 to 19% Impaired (Score 45-55 ) PT-OP-E Functional Tests Start: 01/05/19 16:21 Freq: Status: Active Protocol: Document 03/31/19 08:15 NFW (Rec: 03/31/19 16:42 NFW [id number]) Functional Tests Timed Up and Go (TUG) Score 13.04 Comments Performed 03/08/19 TUG Impairment Rating 1 to <20% Impaired (Score 11) PT-OP-G Mobility & Gait Start: 01/05/19 16:21 Freq: Status: Active Protocol: Document 03/31/19 08:15 NFW (Rec: 03/31/19 16:42 NFW [id number]) OP Mobility Evaluation Functional Movements Lifting and Carrying Difficult for patient to perform Squats 1/3 squats, heels up with good form Running Assessment unable OP Gait Assessment Assistive Devices Assistive Device Straight Cane Comments Gait Comments Left medial list in ambulation . Reveals positive trendelenberg left. PT-OP-H Neuro Start: 01/05/19 16:21 Freq: Status: Active Protocol: Document 01/06/19 12:57 SAK (Rec: 01/09/19 12:55 SAK [id number]) Sensation Evaluation Gross Sensation Gross Sensation WNL Comments Summary Comments denies N/T Muscle Tone Tone Assessment girma UE and LE Flexor Tone Description Normal Extensor Tone Description Normal PT-OP-J Posture/Palpation/Skin Start: 01/05/19 16:21 Freq: Status: Active Protocol: Document 01/06/19 12:57 SAK (Rec: 01/09/19 12:55 SAK [id number]) Skin Assessment Other Assessments Skin Assessment Comments intact, no edema or brusing evident PT-OP-K Range of Motion Start: 01/05/19 16:21 Freq: Status: Active Protocol: Document 01/06/19 12:57 SAK (Rec: 01/09/19 12:55 SAK [id number]) Cervical Spine Range of Motion Cervical Spine Active Comments WNL Lumbar Spine Range of Motion Lumbar Spine Active Comments WNL Shoulder Goniometric Range of Motion Shoulder Measured in Degrees left Shoulder ROM WFL Yes right Shoulder ROM WFL Yes Elbow/Forearm Range of Motion Elbow/Forearm Measured in Degrees girma Elbow/Forearm ROM WFL Yes Wrist Goniometric Range of Motion Wrist Measured in Degrees girma Wrist ROM WFL Yes Hip Goniometric Range of Motion Hip Measured in Degrees girma Hip ROM WFL Yes Knee Goniometric Range of Motion Knee Measured in Degrees girma Knee ROM WFL Yes Ankle and Foot Goniometric Range of Motion Ankle and Foot Measured in Degrees girma Ankle/Foot ROM WFL Yes PT-OP-M Strength Start: 01/05/19 16:21 Freq: Status: Active Protocol: Document 03/08/19 12:58 SP (Rec: 03/08/19 15:11 SP [id number]) Hand Bridge Painter/Pinch Strength Hand Strength Left Bridge Painter (lbs) 21 Comments 40, 20, 20 lbs elbow bent rested on chair arm at side. Right Bridge Painter (lbs) 26.66 Comments 20, 20, 22 lbs elbow bent rested on chair arm at side. PT-OP-T Assessment and Plan Start: 01/05/19 16:21 Freq: Status: Active Protocol: Document 03/31/19 08:15 NFW (Rec: 03/31/19 16:42 NFW [id number]) Physical Therapy Assessment Impairments Impairments Activity Tolerance,Functional Mobility,Strength Goals Three Impairment strength Short Term Goal (STG) Initiate aquatic therapy and HEP STG Duration 6 wks Decorator Store Goal (LTG) Establish well-tolerated aquatic exercise program and HEP focused on strengthening and balance for patient with patient demonstrated independence and compliance and demonstrate good knowledge of how to modify depending on symptoms. LTG Duration 12 wks Two Impairment balance Short Term Goal (STG) Complete objective balance testing for baseline measurements STG Duration 6 wks Decorator Store Goal (LTG) Patient to be safe and independent with gait on level and uneven surfaces with least restrictive device, and have no reported falls. Will be compliant with recommendations for home safety. LTG Duration 12 wks One Impairment activity tolerance Short Term Goal (STG) instruct in energy conservation and pacing STG Duration 6 wks Decorator Store Goal (LTG) Patient to demonstrate good understanding and compliance with energy conservation and pacing of activities. LTG Duration 12 wks Assessment Summary Assessment Patient has shown nice progress in strength and in her functional activities. She has residual functional weaknesses in her abdominals, pelvic girdle muscles. She requires further guidance with dynamic balance activities. Physical Therapy Plan Frequency and Duration Frequency of Treatment 1x/Week Duration of Treatment 12 Plan of Care Start Date 03/31/19 Plan of Care End Date 06/23/19 Therapeutic Interventions Therapeutic Interventions Aquatic Therapy,Balance Training,Coordination Training ,Gait Training,Home Exercise Program,Neuromuscular Re- education,Self-Care/Home Management,Therapeutic Activities,Therapeutic Exercises Next Visit Focus/Plan Next Note Type Treatment Note Next Visit Plan Continue progress UE & LE strengthening, balance, modify exercises as indicated to work toward personal goal of increase endurance for activities of interest.
--- NOTE | 2019-04-11 09:45 | PT.OTN ---
Current Diagnoses Spasmodic torticollis (04/11/19) Myotonic muscular dystrophy (04/11/19) Muscle weakness (generalized) (04/11/19) Physical Therapy Treatment Note PT-OP-A Visit Information Start: 01/05/19 16:21 Freq: Status: Active Protocol: Document 04/11/19 09:05 SP (Rec: 04/11/19 10:05 SP [id number]) Out-Patient Physical Therapy Visit Information Visit Information Visit Type Treatment Note Visit Start Time 09:05 Visit Stop Time 09:45 Total Visit Minutes 40 Visit Number 9 Number of INSULATION SPRAYER Visits 1 PT-OP-B Current Condition Start: 01/05/19 16:21 Freq: Status: Active Protocol: Document 01/06/19 12:57 SAK (Rec: 01/06/19 13:25 SAK [id number]) Current Condition History of Current Condition Onset Date 4 yrs Current Complaints LE weakness and achiness, SOB History of Current Condition Gradual progressive weakness, started using cane May 2017. Has been seeing specialists and having tests with diagnosis of possible indeterminate type of muscular dystrophy. Also reports exercise intolerance with SOB, increasing fatigue, need for much slower pace. The more I do the worse I feel . Hoping to see if she can establish an exercise program that will not exhaust her. Requesting possible aquatic therapy. Difficulty getting out of chairs, off floor. 2018 8-10 falls, this year being more careful, last fall was in July. Has not suffererd injury. Started Prednisone yesterday 15 mg. Prior experience with Prednisone caused migraine; has headache but not migraine. LE weakness symmetrical, no numbness or tingling. With falls, reports usually [address] Frequently uses cane or walker. No dizziness. BP well-managed. Uses electric tricycle. Has recumbant exercise bike, reports not using, has tendency to overdo. 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 Stool in shower, can dress self. Trip to [place] next week, has anxiety about being able to tolerate. Prior Treatments and Tests muscle biopsy negative [facility] neurologist States MS and ALS ruled out as diagnoses. Future Testing and Treatments Planned Spoke today with Claudy Sotelo, doctor inclusion body myositis specialist at [facility] in [place]; has February 16 appointment Patient reports a second muscle biopsy recommended by [facility] physician Treatment Goals Patient/Caregiver Goals Improve strength/maintain, establish exercise program. Hoping for aquatic therapy. Had difficulty getting in/out of pool and felt uncoordinated last time in pool. Knows how to swim, but body has changed and it felt very difficult. Prior Functional Status Baseline Function- ADL's Independent Baseline Function- Mobility Independent Baseline Function- Gait independent without device Baseline Function- Work/School retired Baseline Function- Recreation/Hobbies walk, bike, hike Current Functional Impairments (Reported) Functional Limitations- ADL's slow, fatiguing Functional Limitations- Mobility/Gait very limited with c/o SOB, frequent rest breaks Functional Limitations- Work/School retired Functional Limitations- Recreation/ unable except has electric Hobbies tricycle PT-OP-C Subjective Start: 01/05/19 16:21 Freq: Status: Active Protocol: Document 04/11/19 09:05 SP (Rec: 04/11/19 10:05 SP [id number]) OP-PT Subjective Patient Comments Patient Comments Pt reported was really exhausted and empty feeling for 2 days after last follow up with PT. Pt states frustrated that has to choose what activity to do that day so can last the day not tired just empty feeling. PT-OP-D Balance Start: 01/05/19 16:21 Freq: Status: Active Protocol: Document 03/31/19 08:15 NFW (Rec: 03/31/19 16:42 NFW [id number]) Balance Tests Single Limb Standing Single Limb- Right 28 Single Limb- Left 13 Sheth Balance Assessment Total Score Sheth Impairment Rating 1 to 19% Impaired (Score 45-55 ) PT-OP-E Functional Tests Start: 01/05/19 16:21 Freq: Status: Active Protocol: Document 03/31/19 08:15 NFW (Rec: 03/31/19 16:42 NFW [id number]) Functional Tests Timed Up and Go (TUG) Score 13.04 Comments Performed 03/08/19 TUG Impairment Rating 1 to <20% Impaired (Score 11) PT-OP-G Mobility & Gait Start: 01/05/19 16:21 Freq: Status: Active Protocol: Document 03/31/19 08:15 NFW (Rec: 03/31/19 16:42 NFW [id number]) OP Mobility Evaluation Functional Movements Lifting and Carrying Difficult for patient to perform Squats 1/3 squats, heels up with good form Running Assessment unable OP Gait Assessment Assistive Devices Assistive Device Straight Cane Comments Gait Comments Left medial list in ambulation . Reveals positive trendelenberg left. PT-OP-H Neuro Start: 01/05/19 16:21 Freq: Status: Active Protocol: Document 01/06/19 12:57 SAK (Rec: 01/09/19 12:55 SAK [id number]) Sensation Evaluation Gross Sensation Gross Sensation WNL Comments Summary Comments denies N/T Muscle Tone Tone Assessment girma UE and LE Flexor Tone Description Normal Extensor Tone Description Normal PT-OP-J Posture/Palpation/Skin Start: 01/05/19 16:21 Freq: Status: Active Protocol: Document 01/06/19 12:57 SAK (Rec: 01/09/19 12:55 SAK [id number]) Skin Assessment Other Assessments Skin Assessment Comments intact, no edema or brusing evident PT-OP-K Range of Motion Start: 01/05/19 16:21 Freq: Status: Active Protocol: Document 01/06/19 12:57 SAK (Rec: 01/09/19 12:55 SAK [id number]) Cervical Spine Range of Motion Cervical Spine Active Comments WNL Lumbar Spine Range of Motion Lumbar Spine Active Comments WNL Shoulder Goniometric Range of Motion Shoulder left Shoulder ROM WFL Yes right Shoulder ROM WFL Yes Elbow/Forearm Range of Motion Elbow/Forearm girma Elbow/Forearm ROM WFL Yes Wrist Goniometric Range of Motion Wrist girma Wrist ROM WFL Yes Hip Goniometric Range of Motion Hip girma Hip ROM WFL Yes Knee Goniometric Range of Motion Knee girma Knee ROM WFL Yes Ankle and Foot Goniometric Range of Motion Ankle and Foot girma Ankle/Foot ROM WFL Yes PT-OP-M Strength Start: 01/05/19 16:21 Freq: Status: Active Protocol: Document 03/08/19 12:58 SP (Rec: 03/08/19 15:11 SP [id number]) Hand Truck Rental Service Attendant/Pinch Strength Hand Strength Left Truck Rental Service Attendant (lbs) 21 Comments 40, 20, 20 lbs elbow bent rested on chair arm at side. Right Truck Rental Service Attendant (lbs) 26.66 Comments 20, 20, 22 lbs elbow bent rested on chair arm at side. PT-OP-Q Treatments Start: 01/05/19 16:21 Freq: Status: Active Protocol: Document 04/11/19 09:05 SP (Rec: 04/11/19 10:05 SP [id number]) Cardio Equipment Recumbent Elliptical (Biodex) Duration (Minutes) 8 Resistance 1 Seat Position 6 Therapeutic Exercises Standing Exercises band walk Standing Exercise Name Foward/backward/side step R and L Resistance L1 theraloop Equipment Used //bar Reps/Minutes 10ft 1 lap each Comments cued slow pacing eccentric LE to assist balance Eccentric squats Reps/Minutes 2x10 Comments arms across chest 4 way hip Standing Exercise Name Flex, ext, abd, add Side right Resistance OTB Reps/Minutes x5-10 reps each Comments R and L LE, level one TB provided HEP. Cued for slow pacing, rest Neuro Re-Education Treatment Balance Activities jose f stepping Details forward/side stepping Surface level Equipment hurdles x5 Reps/Duration 10 ft x3 laps R and L Comments Cued slow pacing to allow COG over BERNARDO, patterning for safety, stop if SOB recovery as needed between lengths, COG over BERNARDO PT-OP-S Aquatic Treatment Start: 01/05/19 16:21 Freq: Status: Active Protocol: Document 03/21/19 10:15 LJ (Rec: 03/21/19 15:57 LJ [id number]) Aquatics Treatment Pool Entry/Exit Pool Entry/Exit Method Stairs Assistance Standby Assistance,Verbal Cues Water Walking quick directional change Water Level Chest Level Level of Assistance Verbal Cues Monster Walk Water Level Chest Level Level of Assistance Verbal Cues Marching Water Level Chest Level Level of Assistance Verbal Cues Sideways Water Level Chest Level Level of Assistance Standby Assistance,Verbal Cues Backwards Water Level Chest Level Level of Assistance Standby Assistance,Verbal Cues Forwards Water Level Chest Level Level of Assistance Standby Assistance,Verbal Cues Lower Extremity Exercises hacky sac Water Level Waist Level Reps/Duration 10x bilat hip flex/ext, ab/ad, circles Body Position Standing Water Level Waist Level Reps/Duration 10 ea Comments gentle side to side weight-shifts Body Position Standing Water Level Chest Level Reps/Duration 10x squats Body Position Standing Water Level Chest Level Reps/Duration 10x Lower Extremity Stretches hip flexor Body Position Standing Water Level Waist Level Equipment Small Noodle Reps/Duration 2x30 Comments at wall quads Body Position Standing Water Level Waist Level Equipment Small Noodle Comments at wall HC Body Position Standing Water Level Waist Level Equipment Small Noodle Reps/Duration 2x30 Comments toes on wall HS Body Position Standing Water Level Waist Level Reps/Duration 2x30 Upper Extremity Exercises flex/ext, ab/ad, horiz ab/ad Body Position Sitting Water Level Neck Level Reps/Duration 10 each direction Comments braced at wall, focus on core stability Spinal Exercises DKTC, SKTC Body Position Standing Water Level [place] Equipment at wall Reps/Duration 2x Balance bilateral and unilateral standing w/perturbations Body Position Standing Water Level Chest Level Reps/Duration 3 min PT-OP-T Assessment and Plan Start: 01/05/19 16:21 Freq: Status: Active Protocol: Document 04/11/19 09:05 SP (Rec: 04/11/19 10:05 SP [id number]) Physical Therapy Assessment Goals Three Impairment strength Short Term Goal (STG) Initiate aquatic therapy and HEP STG Duration 6 wks Group Home Goal (LTG) Establish well-tolerated aquatic exercise program and HEP focused on strengthening and balance for patient with patient demonstrated independence and compliance and demonstrate good knowledge of how to modify depending on symptoms. LTG Duration 12 wks Two Impairment balance Short Term Goal (STG) Complete objective balance testing for baseline measurements STG Duration 6 wks Gin Pole Operator Goal (LTG) Patient to be safe and independent with gait on level and uneven surfaces with least restrictive device, and have no reported falls. Will be compliant with recommendations for home safety. LTG Duration 12 wks One Impairment activity tolerance Short Term Goal (STG) instruct in energy conservation and pacing STG Duration 6 wks Group Home Goal (LTG) Patient to demonstrate good understanding and compliance with energy conservation and pacing of activities. LTG Duration 12 wks Assessment Summary Assessment Tx focused on strength and balance stepping. Pt required cuing for slower pacing to allow for SLS COG over BERNARDO with eccentric LE return together, able to self recover LOB side step to R. Picking activities to progress strengthening and endurance to improve functional weakness. Physical Therapy Plan Frequency and Duration Frequency of Treatment 1x/Week Duration of Treatment 12 Plan of Care Start Date 03/31/19 Plan of Care End Date 06/23/19 Therapeutic Interventions Therapeutic Interventions Aquatic Therapy,Balance Training,Coordination Training ,Gait Training,Home Exercise Program,Neuromuscular Re- education,Self-Care/Home Management,Therapeutic Activities,Therapeutic Exercises Next Visit Focus/Plan Next Note Type Treatment Note Next Visit Plan Next land Tx: balance stepping cushions, side step cord resistance, SL sweep, shuttle recovery. Continue progress UE & LE strengthening, balance, modify exercises as indicated to work toward personal goal of increase endurance for activities of interest.
--- NOTE | 2019-04-18 16:09 | PT.OTN ---
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) Muscle weakness (generalized) (04/18/19) Physical Therapy Treatment Note PT-OP-A Visit Information Start: 01/05/19 16:21 Freq: Status: Active Protocol: Document 04/18/19 11:00 LJ (Rec: 04/18/19 16:09 LJ [id number]) Out-Patient Physical Therapy Visit Information Visit Information Visit Type Aquatic Treatment Note Visit Start Time 11:00 Visit Stop Time 11:45 Total Visit Minutes 45 Visit Number 10 Number of BEVERAGE HOST Visits 2 PT-OP-B Current Condition Start: 01/05/19 16:21 Freq: Status: Active Protocol: Document 01/06/19 12:57 SAK (Rec: 01/06/19 13:25 SAK [id number]) Current Condition History of Current Condition Onset Date 4 yrs Current Complaints LE weakness and achiness, SOB History of Current Condition Gradual progressive weakness, started using cane May 2017. Has been seeing specialists and having tests with diagnosis of possible indeterminate type of muscular dystrophy. Also reports exercise intolerance with SOB, increasing fatigue, need for much slower pace. The more I do the worse I feel . Hoping to see if she can establish an exercise program that will not exhaust her. Requesting possible aquatic therapy. Difficulty getting out of chairs, off floor. 2018 8-10 falls, this year being more careful, last fall was in July. Has not suffererd injury. Started Prednisone yesterday 15 mg. Prior experience with Prednisone caused migraine; has headache but not migraine. LE weakness symmetrical, no numbness or tingling. With falls, reports usually [address] Frequently uses cane or walker. No dizziness. BP well-managed. Uses electric tricycle. Has recumbant exercise bike, reports not using, has tendency to overdo. Also weakness in UE's; hard to wash hair, can't hold chair pad maker, can only get 1 plate out of cupboard at a time, doesn't carry groceries. Stool in shower, can dress self. Trip to [place] next week, has anxiety about being able to tolerate. Prior Treatments and Tests muscle biopsy negative [facility] neurologist States MS and ALS ruled out as diagnoses. Future Testing and Treatments Planned Spoke today with Claudy Sotelo, doctor inclusion body myositis specialist at [facility] in [place]; has February 16 appointment Patient reports a second muscle biopsy recommended by [facility] physician Treatment Goals Patient/Caregiver Goals Improve strength/maintain, establish exercise program. Hoping for aquatic therapy. Had difficulty getting in/out of pool and felt uncoordinated last time in pool. Knows how to swim, but body has changed and it felt very difficult. Prior Functional Status Baseline Function- ADL's Independent Baseline Function- Mobility Independent Baseline Function- Gait independent without device Baseline Function- Work/School retired Baseline Function- Recreation/Hobbies walk, bike, hike Current Functional Impairments (Reported) Functional Limitations- ADL's slow, fatiguing Functional Limitations- Mobility/Gait very limited with c/o SOB, frequent rest breaks Functional Limitations- Work/School retired Functional Limitations- Recreation/ unable except has electric Hobbies tricycle PT-OP-C Subjective Start: 01/05/19 16:21 Freq: Status: Active Protocol: Document 04/18/19 11:00 LJ (Rec: 04/18/19 16:09 LJ [id number]) OP-PT Subjective Patient Comments Patient Comments Pt is glad to get back into pool. States she has some good days and some tough days. States today she is feeling somewhat weak. OP-PT Pain Assessment Comments Pain Comments States pain is now a low ache relieved with medication PT-OP-D Balance Start: 01/05/19 16:21 Freq: Status: Active Protocol: Document 03/31/19 08:15 NFW (Rec: 03/31/19 16:42 NFW [id number]) Balance Tests Single Limb Standing Single Limb- Right 28 Single Limb- Left 13 Sheth Balance Assessment Total Score Sheth Impairment Rating 1 to 19% Impaired (Score 45-55 ) PT-OP-E Functional Tests Start: 01/05/19 16:21 Freq: Status: Active Protocol: Document 03/31/19 08:15 NFW (Rec: 03/31/19 16:42 NFW [id number]) Functional Tests Timed Up and Go (TUG) Score 13.04 Comments Performed 03/08/19 TUG Impairment Rating 1 to <20% Impaired (Score 11) PT-OP-G Mobility & Gait Start: 01/05/19 16:21 Freq: Status: Active Protocol: Document 03/31/19 08:15 NFW (Rec: 03/31/19 16:42 NFW [id number]) OP Mobility Evaluation Functional Movements Lifting and Carrying Difficult for patient to perform Squats 1/3 squats, heels up with good form Running Assessment unable OP Gait Assessment Assistive Devices Assistive Device Straight Cane Comments Gait Comments Left medial list in ambulation . Reveals positive trendelenberg left. PT-OP-H Neuro Start: 01/05/19 16:21 Freq: Status: Active Protocol: Document 01/06/19 12:57 SAK (Rec: 01/09/19 12:55 SAK [id number]) Sensation Evaluation Gross Sensation Gross Sensation WNL Comments Summary Comments denies N/T Muscle Tone Tone Assessment girma UE and LE Flexor Tone Description Normal Extensor Tone Description Normal PT-OP-J Posture/Palpation/Skin Start: 01/05/19 16:21 Freq: Status: Active Protocol: Document 01/06/19 12:57 SAK (Rec: 01/09/19 12:55 SAK [id number]) Skin Assessment Other Assessments Skin Assessment Comments intact, no edema or brusing evident PT-OP-K Range of Motion Start: 01/05/19 16:21 Freq: Status: Active Protocol: Document 01/06/19 12:57 SAK (Rec: 01/09/19 12:55 SAK [id number]) Cervical Spine Range of Motion Cervical Spine Active Comments WNL Lumbar Spine Range of Motion Lumbar Spine Active Comments WNL Shoulder Goniometric Range of Motion Shoulder left Shoulder ROM WFL Yes right Shoulder ROM WFL Yes Elbow/Forearm Range of Motion Elbow/Forearm girma Elbow/Forearm ROM WFL Yes Wrist Goniometric Range of Motion Wrist girma Wrist ROM WFL Yes Hip Goniometric Range of Motion Hip girma Hip ROM WFL Yes Knee Goniometric Range of Motion Knee girma Knee ROM WFL Yes Ankle and Foot Goniometric Range of Motion Ankle and Foot girma Ankle/Foot ROM WFL Yes PT-OP-M Strength Start: 01/05/19 16:21 Freq: Status: Active Protocol: Document 03/08/19 12:58 SP (Rec: 03/08/19 15:11 SP [id number]) Hand Dam Worker/Pinch Strength Hand Strength Left Dam Worker (lbs) 21 Comments 40, 20, 20 lbs elbow bent rested on chair arm at side. Right Dam Worker (lbs) 26.66 Comments 20, 20, 22 lbs elbow bent rested on chair arm at side. PT-OP-Q Treatments Start: 01/05/19 16:21 Freq: Status: Active Protocol: Document 04/11/19 09:05 SP (Rec: 04/11/19 10:05 SP [id number]) Cardio Equipment Recumbent Elliptical (Biodex) Duration (Minutes) 8 Resistance 1 Seat Position 6 Therapeutic Exercises Standing Exercises band walk Standing Exercise Name Foward/backward/side step R and L Resistance L1 theraloop Equipment Used //bar Reps/Minutes 10ft 1 lap each Comments cued slow pacing eccentric LE to assist balance Eccentric squats Reps/Minutes 2x10 Comments arms across chest 4 way hip Standing Exercise Name Flex, ext, abd, add Side right Resistance OTB Reps/Minutes x5-10 reps each Comments R and L LE, level one TB provided HEP. Cued for slow pacing, rest Neuro Re-Education Treatment Balance Activities jose f stepping Details forward/side stepping Surface level Equipment hurdles x5 Reps/Duration 10 ft x3 laps R and L Comments Cued slow pacing to allow COG over BERNARDO, patterning for safety, stop if SOB recovery as needed between lengths, COG over BERNARDO PT-OP-S Aquatic Treatment Start: 01/05/19 16:21 Freq: Status: Active Protocol: Document 04/18/19 11:00 NATASHA (Rec: 04/18/19 16:09 LJ [id number]) Aquatics Treatment Pool Entry/Exit Pool Entry/Exit Method Stairs Assistance Standby Assistance,Verbal Cues Water Walking Monster Walk Water Level Chest Level Level of Assistance Verbal Cues Comments slow pace Marching Water Level Chest Level Level of Assistance Verbal Cues Comments slow pace Sideways Water Level Chest Level Level of Assistance Standby Assistance,Verbal Cues Comments slow pace Forwards Water Level Chest Level Level of Assistance Standby Assistance,Verbal Cues Comments slow pace Lower Extremity Exercises hip flex/ext, ab/ad, circles Body Position Standing Water Level Waist Level Reps/Duration 10 ea Comments gentle side to side weight-shifts Body Position Standing Water Level Chest Level Reps/Duration 10x squats Body Position Standing Water Level Chest Level Reps/Duration 10x Lower Extremity Stretches hip flexor Body Position Standing Water Level Waist Level Equipment Small Noodle Reps/Duration 2x30 Comments at wall quads Body Position Standing Water Level Waist Level Equipment Small Noodle Comments at wall HC Body Position Standing Water Level Waist Level Equipment Small Noodle Reps/Duration 2x30 Comments toes on wall HS Body Position Standing Water Level Waist Level Reps/Duration 2x30 Upper Extremity Exercises flex/ext, ab/ad, horiz ab/ad Body Position Sitting Water Level Neck Level Reps/Duration 10 each direction Comments braced at wall, focus on core stability Spinal Exercises stretch cord resisted walking Body Position Standing Water Level Chest Level Reps/Duration 2 steps 4x each direction Comments stabilizing with mvmt stretch cord rotations Body Position Standing Water Level Chest Level Reps/Duration 8 each direction PT-OP-T Assessment and Plan Start: 01/05/19 16:21 Freq: Status: Active Protocol: Document 04/18/19 11:00 NATASHA (Rec: 04/18/19 16:09 NATASHA [id number]) Physical Therapy Assessment Impairments Impairments Activity Tolerance,Functional Mobility,Strength Goals Three Impairment strength Short Term Goal (STG) Initiate aquatic therapy and HEP STG Duration 6 wks Skilled Nursing Goal (LTG) Establish well-tolerated aquatic exercise program and HEP focused on strengthening and balance for patient with patient demonstrated independence and compliance and demonstrate good knowledge of how to modify depending on symptoms. LTG Duration 12 wks Two Impairment balance Short Term Goal (STG) Complete objective balance testing for baseline measurements STG Duration 6 wks Supply Aide Goal (LTG) Patient to be safe and independent with gait on level and uneven surfaces with least restrictive device, and have no reported falls. Will be compliant with recommendations for home safety. LTG Duration 12 wks One Impairment activity tolerance Short Term Goal (STG) instruct in energy conservation and pacing STG Duration 6 wks Supply Aide Goal (LTG) Patient to demonstrate good understanding and compliance with energy conservation and pacing of activities. LTG Duration 12 wks Assessment Summary Assessment Pt required several rest breaks during exercises. Effort was kept to a moderate level d/t pt's tendancy to push herself too much. Pt was able to finish the entire treatment time but was ready to leave by the end. Pt was cued often to keep effort to a moderate-minimal level to avoid overdoing it. Physical Therapy Plan Frequency and Duration Frequency of Treatment 1x/Week Duration of Treatment 12 Plan of Care Start Date 03/31/19 Plan of Care End Date 06/23/19 Therapeutic Interventions Therapeutic Interventions Aquatic Therapy,Balance Training,Coordination Training ,Gait Training,Home Exercise Program,Neuromuscular Re- education,Self-Care/Home Management,Therapeutic Activities,Therapeutic Exercises Next Visit Focus/Plan Next Note Type Treatment Note Next Visit Plan Continue to address balance and strengthening as tolerated . Focus on core strengthening and stabilizing exercises with cords.
--- NOTE | 2019-04-26 10:30 | PT.OTN ---
Current Diagnoses Spasmodic torticollis (04/26/19) Myotonic muscular dystrophy (04/26/19) Muscle weakness (generalized) (04/26/19) Physical Therapy Treatment Note PT-OP-A Visit Information Start: 01/05/19 16:21 Freq: Status: Active Protocol: Document 04/26/19 09:50 SP (Rec: 04/26/19 10:54 SP [id number]) Out-Patient Physical Therapy Visit Information Visit Information Visit Type Treatment Note Visit Start Time 09:50 Visit Stop Time 10:30 Total Visit Minutes 40 Visit Number 11 Number of CERTIFIED LEGAL SECRETARY SPECIALIST Visits 3 PT-OP-B Current Condition Start: 01/05/19 16:21 Freq: Status: Active Protocol: Document 01/06/19 12:57 SAK (Rec: 01/06/19 13:25 SAK [id number]) Current Condition History of Current Condition Onset Date 4 yrs Current Complaints LE weakness and achiness, SOB History of Current Condition Gradual progressive weakness, started using cane May 2017. Has been seeing specialists and having tests with diagnosis of possible indeterminate type of muscular dystrophy. Also reports exercise intolerance with SOB, increasing fatigue, need for much slower pace. The more I do the worse I feel . Hoping to see if she can establish an exercise program that will not exhaust her. Requesting possible aquatic therapy. Difficulty getting out of chairs, off floor. 2018 8-10 falls, this year being more careful, last fall was in July. Has not suffererd injury. Started Prednisone yesterday 15 mg. Prior experience with Prednisone caused migraine; has headache but not migraine. LE weakness symmetrical, no numbness or tingling. With falls, reports usually [address] Frequently uses cane or walker. No dizziness. BP well-managed. Uses electric tricycle. Has recumbant exercise bike, reports not using, has tendency to overdo. Also weakness in UE's; hard to wash hair, can't hold dining chair seat cushion trimmer, can only get 1 plate out of cupboard at a time, doesn't carry groceries. Stool in shower, can dress self. Trip to [place] next week, has anxiety about being able to tolerate. Prior Treatments and Tests muscle biopsy negative [facility] neurologist States MS and ALS ruled out as diagnoses. Future Testing and Treatments Planned Spoke today with Claudy Sotelo, doctor inclusion body myositis specialist at [facility] in [place]; has February 16 appointment Patient reports a second muscle biopsy recommended by [facility] physician Treatment Goals Patient/Caregiver Goals Improve strength/maintain, establish exercise program. Hoping for aquatic therapy. Had difficulty getting in/out of pool and felt uncoordinated last time in pool. Knows how to swim, but body has changed and it felt very difficult. Prior Functional Status Baseline Function- ADL's Independent Baseline Function- Mobility Independent Baseline Function- Gait independent without device Baseline Function- Work/School retired Baseline Function- Recreation/Hobbies walk, bike, hike Current Functional Impairments (Reported) Functional Limitations- ADL's slow, fatiguing Functional Limitations- Mobility/Gait very limited with c/o SOB, frequent rest breaks Functional Limitations- Work/School retired Functional Limitations- Recreation/ unable except has electric Hobbies tricycle PT-OP-C Subjective Start: 01/05/19 16:21 Freq: Status: Active Protocol: Document 04/26/19 09:50 SP (Rec: 04/26/19 10:54 SP [id number]) OP-PT Subjective Patient Comments Patient Comments Pt reported has been feeling worsening activity tolerance, noticing tingling into B feet and legs in the past 2 weeks but her LE muscle achiness is still controlled by taking Aleve. Her standing exercises for home haven't been tolerant. Wants to back off standing activities today and maybe lay down. Pt states her balance still seems to be ok. Pt has a call into her neurologist on response to ex but doesn't have an appt til July. PT-OP-D Balance Start: 01/05/19 16:21 Freq: Status: Active Protocol: Document 03/31/19 08:15 NFW (Rec: 03/31/19 16:42 NFW [id number]) Balance Tests Single Limb Standing Single Limb- Right 28 Single Limb- Left 13 Sheth Balance Assessment Total Score Sheth Impairment Rating 1 to 19% Impaired (Score 45-55 ) PT-OP-E Functional Tests Start: 01/05/19 16:21 Freq: Status: Active Protocol: Document 03/31/19 08:15 NFW (Rec: 03/31/19 16:42 NFW [id number]) Functional Tests Timed Up and Go (TUG) Score 13.04 Comments Performed 03/08/19 TUG Impairment Rating 1 to <20% Impaired (Score 11) PT-OP-G Mobility & Gait Start: 01/05/19 16:21 Freq: Status: Active Protocol: Document 03/31/19 08:15 NFW (Rec: 03/31/19 16:42 NFW [id number]) OP Mobility Evaluation Functional Movements Lifting and Carrying Difficult for patient to perform Squats 1/3 squats, heels up with good form Running Assessment unable OP Gait Assessment Assistive Devices Assistive Device Straight Cane Comments Gait Comments Left medial list in ambulation . Reveals positive trendelenberg left. PT-OP-H Neuro Start: 01/05/19 16:21 Freq: Status: Active Protocol: Document 01/06/19 12:57 SAK (Rec: 01/09/19 12:55 SAK [id number]) Sensation Evaluation Gross Sensation Gross Sensation WNL Comments Summary Comments denies N/T Muscle Tone Tone Assessment girma UE and LE Flexor Tone Description Normal Extensor Tone Description Normal PT-OP-J Posture/Palpation/Skin Start: 01/05/19 16:21 Freq: Status: Active Protocol: Document 01/06/19 12:57 SAK (Rec: 01/09/19 12:55 SAK [id number]) Skin Assessment Other Assessments Skin Assessment Comments intact, no edema or brusing evident PT-OP-K Range of Motion Start: 01/05/19 16:21 Freq: Status: Active Protocol: Document 01/06/19 12:57 SAK (Rec: 01/09/19 12:55 SAK [id number]) Cervical Spine Range of Motion Cervical Spine Active Comments WNL Lumbar Spine Range of Motion Lumbar Spine Active Comments WNL Shoulder Goniometric Range of Motion Shoulder left Shoulder ROM WFL Yes right Shoulder ROM WFL Yes Elbow/Forearm Range of Motion Elbow/Forearm girma Elbow/Forearm ROM WFL Yes Wrist Goniometric Range of Motion Wrist girma Wrist ROM WFL Yes Hip Goniometric Range of Motion Hip girma Hip ROM WFL Yes Knee Goniometric Range of Motion Knee girma Knee ROM WFL Yes Ankle and Foot Goniometric Range of Motion Ankle and Foot girma Ankle/Foot ROM WFL Yes PT-OP-M Strength Start: 01/05/19 16:21 Freq: Status: Active Protocol: Document 03/08/19 12:58 SP (Rec: 03/08/19 15:11 SP [id number]) Hand Signals Collection Technician/Pinch Strength Hand Strength Left Signals Collection Technician (lbs) 21 Comments 40, 20, 20 lbs elbow bent rested on chair arm at side. Right Signals Collection Technician (lbs) 26.66 Comments 20, 20, 22 lbs elbow bent rested on chair arm at side. PT-OP-Q Treatments Start: 01/05/19 16:21 Freq: Status: Active Protocol: Document 04/26/19 09:50 SP (Rec: 04/26/19 10:54 SP [id number]) Therapeutic Exercises Supine Exercises hip abd Supine Exercise Name hooklying Side bilateral Equipment Used YTB Reps/Minutes 3x5 bridging Reps/Minutes 3x5 Standing Exercises band walk Standing Exercise Name Foward/backward/side step R and L Resistance L1 theraloop Equipment Used rail Reps/Minutes 10ft 1 lap each Comments cued slow pacing eccentric LE to assist balance Eccentric squats Standing Exercise Name sit to stands modification Reps/Minutes x5 Comments hands on thighs, to challenged by eccentric squat 4 way hip Standing Exercise Name ABD, Ext Side bilateral Resistance AROM Equipment Used rail Reps/Minutes 2x5 each direction PT-OP-S Aquatic Treatment Start: 01/05/19 16:21 Freq: Status: Active Protocol: Document 04/18/19 11:00 LJ (Rec: 04/18/19 16:09 LJ [id number]) Aquatics Treatment Pool Entry/Exit Pool Entry/Exit Method Stairs Assistance Standby Assistance,Verbal Cues Water Walking Monster Walk Water Level Chest Level Level of Assistance Verbal Cues Comments slow pace Marching Water Level Chest Level Level of Assistance Verbal Cues Comments slow pace Sideways Water Level Chest Level Level of Assistance Standby Assistance,Verbal Cues Comments slow pace Forwards Water Level Chest Level Level of Assistance Standby Assistance,Verbal Cues Comments slow pace Lower Extremity Exercises hip flex/ext, ab/ad, circles Body Position Standing Water Level Waist Level Reps/Duration 10 ea Comments gentle side to side weight-shifts Body Position Standing Water Level Chest Level Reps/Duration 10x squats Body Position Standing Water Level Chest Level Reps/Duration 10x Lower Extremity Stretches hip flexor Body Position Standing Water Level Waist Level Equipment Small Noodle Reps/Duration 2x30 Comments at wall quads Body Position Standing Water Level Waist Level Equipment Small Noodle Comments at wall HC Body Position Standing Water Level Waist Level Equipment Small Noodle Reps/Duration 2x30 Comments toes on wall HS Body Position Standing Water Level Waist Level Reps/Duration 2x30 Upper Extremity Exercises flex/ext, ab/ad, horiz ab/ad Body Position Sitting Water Level Neck Level Reps/Duration 10 each direction Comments braced at wall, focus on core stability Spinal Exercises stretch cord resisted walking Body Position Standing Water Level Chest Level Reps/Duration 2 steps 4x each direction Comments stabilizing with mvmt stretch cord rotations Body Position Standing Water Level Chest Level Reps/Duration 8 each direction PT-OP-T Assessment and Plan Start: 01/05/19 16:21 Freq: Status: Active Protocol: Document 04/26/19 09:50 SP (Rec: 04/26/19 10:54 SP [id number]) Physical Therapy Assessment Goals Three Impairment strength Short Term Goal (STG) Initiate aquatic therapy and HEP STG Duration 6 wks Marketing Consultant Goal (LTG) Establish well-tolerated aquatic exercise program and HEP focused on strengthening and balance for patient with patient demonstrated independence and compliance and demonstrate good knowledge of how to modify depending on symptoms. LTG Duration 12 wks Two Impairment balance Short Term Goal (STG) Complete objective balance testing for baseline measurements STG Duration 6 wks Marketing Consultant Goal (LTG) Patient to be safe and independent with gait on level and uneven surfaces with least restrictive device, and have no reported falls. Will be compliant with recommendations for home safety. LTG Duration 12 wks One Impairment activity tolerance Short Term Goal (STG) instruct in energy conservation and pacing STG Duration 6 wks Longterm Goal (LTG) Patient to demonstrate good understanding and compliance with energy conservation and pacing of activities. LTG Duration 12 wks Assessment Summary Assessment Pt tolerated modification in ther ex today, required rest breaks between set/reps for recovery. Noted little SOB, recovered within 30-60 sec breaks. Cued slow controlled pacing. Pt stated felt better than when came in today. Provided copies of HEP supine, standing for recall and cuing added during tx. Didn't progress as stated in last land tx plan secondary to patient report pre PT. Physical Therapy Plan Frequency and Duration Frequency of Treatment 1x/Week Duration of Treatment 12 Plan of Care Start Date 03/31/19 Plan of Care End Date 06/23/19 Therapeutic Interventions Therapeutic Interventions Aquatic Therapy,Balance Training,Coordination Training ,Gait Training,Home Exercise Program,Neuromuscular Re- education,Self-Care/Home Management,Therapeutic Activities,Therapeutic Exercises Next Visit Focus/Plan Next Note Type Treatment Note Next Visit Plan Assess later in day response to modifiication in HEP exercises last tx (copy in chart). Continue to address balance and strengthening as tolerated . Continue per PT's POC: progress UE & LE strengthening , balance, modify exercises as indicated to work toward personal goal of increase endurance for activities of interest.
--- NOTE | 2019-05-30 16:38 | PT-OP ANOTE ---
Returned phone call regarding patient request to cancel the rest of her PT appointments due to medical reasons. Left phone message asking if she wanted to be placed on hold or if I should go ahead and discharge her. Await patient response
--- NOTE | 2019-06-06 13:51 | PT.OTN ---
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) Muscle weakness (generalized) (06/06/19) Physical Therapy Treatment Note PT-OP-A Visit Information Start: 01/05/19 16:21 Freq: Status: Active Protocol: Document 06/06/19 08:59 SAK (Rec: 06/06/19 13:37 SAK [id number]) Out-Patient Physical Therapy Visit Information Visit Information Visit Type Progress Note Visit Start Time 08:59 Visit Stop Time 09:44 Total Visit Minutes 45 Visit Number 12 Number of ART PROFESSOR Visits 4 PT-OP-B Current Condition Start: 01/05/19 16:21 Freq: Status: Active Protocol: Document 01/06/19 12:57 SAK (Rec: 01/06/19 13:25 SAK [id number]) Current Condition History of Current Condition Onset Date 4 yrs Current Complaints LE weakness and achiness, SOB History of Current Condition Gradual progressive weakness, started using cane May 2017. Has been seeing specialists and having tests with diagnosis of possible indeterminate type of muscular dystrophy. Also reports exercise intolerance with SOB, increasing fatigue, need for much slower pace. The more I do the worse I feel . Hoping to see if she can establish an exercise program that will not exhaust her. Requesting possible aquatic therapy. Difficulty getting out of chairs, off floor. 2018 8-10 falls, this year being more careful, last fall was in July. Has not suffererd injury. Started Prednisone yesterday 15 mg. Prior experience with Prednisone caused migraine; has headache but not migraine. LE weakness symmetrical, no numbness or tingling. With falls, reports usually [address] Frequently uses cane or walker. No dizziness. BP well-managed. Uses electric tricycle. Has recumbant exercise bike, reports not using, has tendency to overdo. Also weakness in UE's; hard to wash hair, can't hold chair pad maker, can only get 1 plate out of cupboard at a time, doesn't carry groceries. Stool in shower, can dress self. Trip to [place] next week, has anxiety about being able to tolerate. Prior Treatments and Tests muscle biopsy negative [facility] neurologist States MS and ALS ruled out as diagnoses. Future Testing and Treatments Planned Spoke today with Claudy Sotelo, doctor inclusion body myositis specialist at [facility] in [place]; has February 16 appointment Patient reports a second muscle biopsy recommended by [facility] physician Treatment Goals Patient/Caregiver Goals Improve strength/maintain, establish exercise program. Hoping for aquatic therapy. Had difficulty getting in/out of pool and felt uncoordinated last time in pool. Knows how to swim, but body has changed and it felt very difficult. Prior Functional Status Baseline Function- ADL's Independent Baseline Function- Mobility Independent Baseline Function- Gait independent without device Baseline Function- Work/School retired Baseline Function- Recreation/Hobbies walk, bike, hike Current Functional Impairments (Reported) Functional Limitations- ADL's slow, fatiguing Functional Limitations- Mobility/Gait very limited with c/o SOB, frequent rest breaks Functional Limitations- Work/School retired Functional Limitations- Recreation/ unable except has electric Hobbies tricycle PT-OP-C Subjective Start: 01/05/19 16:21 Freq: Status: Active Protocol: Document 06/06/19 08:[address] [facility] (Rec: 06/06/19 09:[address] [facility] [id number]) OP-PT Subjective Patient Comments Patient Comments Since last seen, gradual decline, has appointment with neurologist tomorrow and 2nd neurologist for repeat EMG later in week. SOB worse, doesn't take much to bring it on. Feels balance better from PT but energy level minimal. Has done a little bit of walking last few days; initially stiff, then loosens up, then after 10 min concerned about how long it will take to get back home. Does a lot of sitting resting, doesn't like to lay down. States had an episode after laying supine for medical test felt she couldn't move her legs; had to have help to get off the table. Neurologist started her on medication for MG (Mestinon; no positive benefit, actually thinks made her symptoms some worse). Having testing to see if Lamberd eaton the diagnosis. Doesn't feel she has the stamina to do PT right now. Hopeful within the next couple weeks will have diagnosis and possibly new medication and/ or other treatment option including PT. Has been 2 years since she started using a cane; feels more dependent on it. States she feels she is careening without cane. Tends to use cane plus hold onto someone. Process required to get in and out of the pool too fatiguing for her . Every day feels a little harder to get through. Dystonia becoming worse including ability to write. Fatigue and achiness. No difficulty swallowing. Blurry vision and dry mouth have worsened. Seeing counselor 1x /wk. PT-OP-D Balance Start: 01/05/19 16:21 Freq: Status: Active Protocol: Document 06/06/19 08:59 SAK (Rec: 06/06/19 13:[address] [facility] [id number]) Balance Tests Sheth Balance Test Sheth Balance Test Score 53 Sheth Impairment Rating 1 to 19% Impaired (Score 45-55 ) PT-OP-E Functional Tests Start: 01/05/19 16:21 Freq: Status: Active Protocol: Document 06/06/19 08:59 SAK (Rec: 06/06/19 13:[address] [facility] [id number]) Functional Tests 6 Minute Walk Test Comments not done due to fatigue Timed Up and Go (TUG) Score 16.4 PT-OP-G Mobility & Gait Start: 01/05/19 16:21 Freq: Status: Active Protocol: Document 06/06/19 08:59 SAK (Rec: 06/06/19 13:[address] [facility] [id number]) OP Mobility Evaluation Transfers Sit to Stand Indep, no hands initially. Requires use of hands with fatigue OP Gait Assessment Gait Gait Assistance Required: Independent Distance (Feet) 50 Assistive Devices Assistive Device Straight Cane Comments Gait Comments fatigue level limits gait. Unsafe without cane PT-OP-H Neuro Start: 01/05/19 16:21 Freq: Status: Active Protocol: Document 06/06/19 08:[address] [facility] (Rec: 06/06/19 13:[address] [facility] [id number]) Sensation Evaluation Gross Sensation Gross Sensation WNL PT-OP-J Posture/Palpation/Skin Start: 01/05/19 16:21 Freq: Status: Active Protocol: Document 01/06/19 12:57 SAK (Rec: 01/09/19 12:[address] [facility] [id number]) Skin Assessment Other Assessments Skin Assessment Comments intact, no edema or brusing evident PT-OP-K Range of Motion Start: 01/05/19 16:21 Freq: Status: Active Protocol: Document 01/06/19 12:57 SAK (Rec: 01/09/19 12:[address] [facility] [id number]) Cervical Spine Range of Motion Cervical Spine Active Comments WNL Lumbar Spine Range of Motion Lumbar Spine Active Comments WNL Shoulder Goniometric Range of Motion Shoulder left Shoulder ROM WFL Yes right Shoulder ROM WFL Yes Elbow/Forearm Range of Motion Elbow/Forearm girma Elbow/Forearm ROM WFL Yes Wrist Goniometric Range of Motion Wrist girma Wrist ROM WFL Yes Hip Goniometric Range of Motion Hip girma Hip ROM WFL Yes Knee Goniometric Range of Motion Knee girma Knee ROM WFL Yes Ankle and Foot Goniometric Range of Motion Ankle and Foot girma Ankle/Foot ROM WFL Yes PT-OP-M Strength Start: 01/05/19 16:21 Freq: Status: Active Protocol: Document 06/06/19 08:[address] [facility] (Rec: 06/06/19 13:[address] [facility] [id number]) Shoulder Strength Shoulder Manual Muscle Testing Left Comments not tested due to fatigue Right Comments not tested due to fatigue Elbow/Forearm Strength Elbow and Forearm Manual Muscle Testing Left Comments not tested due to fatigue Right Comments not tested due to fatigue Hip Strength Hip Manual Muscle Testing Left Comments not tested due to fatigue Right Comments not tested due to fatigue Knee Strength Knee Manual Muscle Testing Left Comments not tested due to fatigue Right Comments not tested due to fatigue Ankle/Foot Strength Ankle and Foot Manual Muscle Testing Left Comments not tested due to fatigue Right Comments not tested due to fatigue PT-OP-Q Treatments Start: 01/05/19 16:21 Freq: Status: Active Protocol: Document 06/06/19 08:59 SAK (Rec: 06/06/19 13:50 SAK [id number]) Cardio Equipment Recumbent Elliptical (Quantum Secure) Other did not feel up to it Therapeutic Activity Therapeutic Activity balance and gait testing Reps/Minutes 25 Self-Care/Home Management Treatment Education Patient Education Home Exercise Program,Posture Other Education deep breathing; diaphragmatic, lateral trunk, chest PT-OP-S Aquatic Treatment Start: 01/05/19 16:21 Freq: Status: Active Protocol: Document 04/18/19 11:00 NATASHA (Rec: 04/18/19 16:09 LJ [id number]) Aquatics Treatment Pool Entry/Exit Pool Entry/Exit Method Stairs Assistance Standby Assistance,Verbal Cues Water Walking Monster Walk Water Level Chest Level Level of Assistance Verbal Cues Comments slow pace Marching Water Level Chest Level Level of Assistance Verbal Cues Comments slow pace Sideways Water Level Chest Level Level of Assistance Standby Assistance,Verbal Cues Comments slow pace Forwards Water Level Chest Level Level of Assistance Standby Assistance,Verbal Cues Comments slow pace Lower Extremity Exercises hip flex/ext, ab/ad, circles Body Position Standing Water Level Waist Level Reps/Duration 10 ea Comments gentle side to side weight-shifts Body Position Standing Water Level Chest Level Reps/Duration 10x squats Body Position Standing Water Level Chest Level Reps/Duration 10x Lower Extremity Stretches hip flexor Body Position Standing Water Level Waist Level Equipment Small Noodle Reps/Duration 2x30 Comments at wall quads Body Position Standing Water Level Waist Level Equipment Small Noodle Comments at wall HC Body Position Standing Water Level Waist Level Equipment Small Noodle Reps/Duration 2x30 Comments toes on wall HS Body Position Standing Water Level Waist Level Reps/Duration 2x30 Upper Extremity Exercises flex/ext, ab/ad, horiz ab/ad Body Position Sitting Water Level Neck Level Reps/Duration 10 each direction Comments braced at wall, focus on core stability Spinal Exercises stretch cord resisted walking Body Position Standing Water Level Chest Level Reps/Duration 2 steps 4x each direction Comments stabilizing with mvmt stretch cord rotations Body Position Standing Water Level Chest Level Reps/Duration 8 each direction PT-OP-T Assessment and Plan Start: 01/05/19 16:21 Freq: Status: Active Protocol: Document 06/06/19 08:[address] [facility] (Rec: 06/06/19 13:[address] [facility] [id number]) Physical Therapy Assessment Goals Three Impairment strength Short Term Goal (STG) Initiate aquatic therapy and HEP 06/06/19: goal met STG Duration MET Expansion Envelope Maker Hand Goal (LTG) Establish well-tolerated aquatic exercise program and HEP focused on strengthening and balance for patient with patient demonstrated independence and compliance and demonstrate good knowledge of how to modify depending on symptoms. LTG Duration 12 wks Two Impairment balance Short Term Goal (STG) Complete objective balance testing for baseline measurements 06/06/19: goal progress STG Duration 6 wks Expansion Envelope Maker Hand Goal (LTG) Patient to be safe and independent with gait on level and uneven surfaces with least restrictive device, and have no reported falls. Will be compliant with recommendations for home safety. 06/06/19: good goal progress LTG Duration 12 wks One Impairment activity tolerance Short Term Goal (STG) instruct in energy conservation and pacing 06/06/19: goal met STG Duration MET Expansion Envelope Maker Hand Goal (LTG) Patient to demonstrate good understanding and compliance with energy conservation and pacing of activities. 06/06/19: good goal progress LTG Duration 12 wks Assessment Summary Assessment Patient has very low tolerance (decreased) for activity at this time. Patient is hopeful for a diagnosis after seeing both of her neurologists this week and is hopeful for new treatment approach. Is interested in continuing PT and agreeable for next visit to be in 2-3 weeks following physician visits and initiating any new recommended treatment(s). Not able to complete full physical reassessment due to patient extreme fatigue with need for rest after minimal tasks. Physical Therapy Plan Frequency and Duration Frequency of Treatment 1x/Week Duration of Treatment 12 Plan of Care Start Date 03/31/19 Plan of Care End Date 06/23/19 Therapeutic Interventions Therapeutic Interventions Aquatic Therapy,Balance Training,Coordination Training ,Gait Training,Home Exercise Program,Neuromuscular Re- education,Self-Care/Home Management,Therapeutic Activities,Therapeutic Exercises Next Visit Focus/Plan Next Note Type Re-Evaluation Next Visit Plan Complete reassessment, discuss physician recommendations, update POC.
--- NOTE | 2019-06-22 09:02 | PT.OTN ---
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) Muscle weakness (generalized) (06/22/19) Physical Therapy Treatment Note PT-OP-A Visit Information Start: 01/05/19 16:21 Freq: Status: Active Protocol: Document 06/22/19 09:02 [facility] (Rec: 06/25/19 11:08 [facility] [id number]) Out-Patient Physical Therapy Visit Information Visit Information Visit Type Re-Evaluation Visit Start Time 09:00 Visit Stop Time 09:45 Total Visit Minutes 45 Visit Number 13 Precautions Precautions extreme fatigue PT-OP-B Current Condition Start: 01/05/19 16:21 Freq: Status: Active Protocol: Document 01/06/19 12:57 SAK (Rec: 01/06/19 13:25 SAK [id number]) Current Condition History of Current Condition Onset Date 4 yrs Current Complaints LE weakness and achiness, SOB History of Current Condition Gradual progressive weakness, started using cane May 2017. Has been seeing specialists and having tests with diagnosis of possible indeterminate type of muscular dystrophy. Also reports exercise intolerance with SOB, increasing fatigue, need for much slower pace. The more I do the worse I feel . Hoping to see if she can establish an exercise program that will not exhaust her. Requesting possible aquatic therapy. Difficulty getting out of chairs, off floor. 2018 8-10 falls, this year being more careful, last fall was in July. Has not suffererd injury. Started Prednisone yesterday 15 mg. Prior experience with Prednisone caused migraine; has headache but not migraine. LE weakness symmetrical, no numbness or tingling. With falls, reports usually [address] Frequently uses cane or walker. No dizziness. BP well-managed. Uses electric tricycle. Has recumbant exercise bike, reports not using, has tendency to overdo. 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 Stool in shower, can dress self. Trip to [place] next week, has anxiety about being able to tolerate. Prior Treatments and Tests muscle biopsy negative [facility] neurologist States MS and ALS ruled out as diagnoses. Future Testing and Treatments Planned Spoke today with Claudy Sotelo, doctor inclusion body myositis specialist at [facility] in [place]; has February 16 appointment Patient reports a second muscle biopsy recommended by [facility] physician Treatment Goals Patient/Caregiver Goals Improve strength/maintain, establish exercise program. Hoping for aquatic therapy. Had difficulty getting in/out of pool and felt uncoordinated last time in pool. Knows how to swim, but body has changed and it felt very difficult. Prior Functional Status Baseline Function- ADL's Independent Baseline Function- Mobility Independent Baseline Function- Gait independent without device Baseline Function- Work/School retired Baseline Function- Recreation/Hobbies walk, bike, hike Current Functional Impairments (Reported) Functional Limitations- ADL's slow, fatiguing Functional Limitations- Mobility/Gait very limited with c/o SOB, frequent rest breaks Functional Limitations- Work/School retired Functional Limitations- Recreation/ unable except has electric Hobbies tricycle PT-OP-C Subjective Start: 01/05/19 16:21 Freq: Status: Active Protocol: Document 06/22/19 09:02 SAK (Rec: 06/22/19 09:15 [facility] [id number]) OP-PT Subjective Patient Comments Patient Comments Having biopsy next week with doctor suspicious of small nerve neuropathy. Feels balance ok, prolonged standing difficult, exhausting, becomes stiff. Mornings the worst, feeling like her legs can't hold her up. Continues with extremely low activity tolerance. Wants to be able to maintain her walking ability. Some aching, but minimal pain. Feels better sleeping 6-7 hrs vs 8 hrs. Still has cough and SOB. Was at [facility] 3 yrs ago, seen for cardiac. Can get in for rheumatology, not neurology at this time; is considering. Blurry vision not improved with eye drops for dryness. PT-OP-D Balance Start: 01/05/19 16:21 Freq: Status: Active Protocol: Document 06/06/19 08:59 SAK (Rec: 06/06/19 13:50 [facility] [id number]) Balance Tests Sheth Balance Test Sheth Balance Test Score 53 Sheth Impairment Rating 1 to 19% Impaired (Score 45-55 ) PT-OP-E Functional Tests Start: 01/05/19 16:21 Freq: Status: Active Protocol: Document 06/06/19 08:59 SAK (Rec: 06/06/19 13:50 [facility] [id number]) Functional Tests 6 Minute Walk Test Comments not done due to fatigue Timed Up and Go (TUG) Score 16.4 PT-OP-G Mobility & Gait Start: 01/05/19 16:21 Freq: Status: Active Protocol: Document 06/06/19 08:59 SAK (Rec: 06/06/19 13:50 [facility] [id number]) OP Mobility Evaluation Transfers Sit to Stand Indep, no hands initially. Requires use of hands with fatigue OP Gait Assessment Gait Gait Assistance Required: Independent Distance (Feet) 50 Assistive Devices Assistive Device Straight Cane Comments Gait Comments fatigue level limits gait. Unsafe without cane PT-OP-H Neuro Start: 01/05/19 16:21 Freq: Status: Active Protocol: Document 06/06/19 08:59 SAK (Rec: 06/06/19 13:50 [facility] [id number]) Sensation Evaluation Gross Sensation Gross Sensation WNL PT-OP-J Posture/Palpation/Skin Start: 01/05/19 16:21 Freq: Status: Active Protocol: Document 01/06/19 12:57 SAK (Rec: 01/09/19 12:55 [facility] [id number]) Skin Assessment Other Assessments Skin Assessment Comments intact, no edema or brusing evident PT-OP-K Range of Motion Start: 01/05/19 16:21 Freq: Status: Active Protocol: Document 01/06/19 12:57 SAK (Rec: 01/09/19 12:55 [facility] [id number]) Cervical Spine Range of Motion Cervical Spine Active Comments WNL Lumbar Spine Range of Motion Lumbar Spine Active Comments WNL Shoulder Goniometric Range of Motion Shoulder left Shoulder ROM WFL Yes right Shoulder ROM WFL Yes Elbow/Forearm Range of Motion Elbow/Forearm girma Elbow/Forearm ROM WFL Yes Wrist Goniometric Range of Motion Wrist girma Wrist ROM WFL Yes Hip Goniometric Range of Motion Hip girma Hip ROM WFL Yes Knee Goniometric Range of Motion Knee girma Knee ROM WFL Yes Ankle and Foot Goniometric Range of Motion Ankle and Foot girma Ankle/Foot ROM WFL Yes PT-OP-M Strength Start: 01/05/19 16:21 Freq: Status: Active Protocol: Document 06/06/19 08:59 SAK (Rec: 06/06/19 13:50 [facility] [id number]) Shoulder Strength Shoulder Manual Muscle Testing Left Comments not tested due to fatigue Right Comments not tested due to fatigue Elbow/Forearm Strength Elbow and Forearm Manual Muscle Testing Left Comments not tested due to fatigue Right Comments not tested due to fatigue Hip Strength Hip Manual Muscle Testing Left Comments not tested due to fatigue Right Comments not tested due to fatigue Knee Strength Knee Manual Muscle Testing Left Comments not tested due to fatigue Right Comments not tested due to fatigue Ankle/Foot Strength Ankle and Foot Manual Muscle Testing Left Comments not tested due to fatigue Right Comments not tested due to fatigue PT-OP-Q Treatments Start: 01/05/19 16:21 Freq: Status: Active Protocol: Document 06/22/19 09:02 SAK (Rec: 06/25/19 11:08 SAK [id number]) Therapeutic Exercises Supine Exercises LTR Reps/Minutes 10x hip ab/ER Reps/Minutes 10x pillow squeeze Reps/Minutes 10x abdominal draw in Reps/Minutes 10x Therapeutic Activity Therapeutic Activity balance and gait testing Reps/Minutes 10 Comments 6 min walk test plus rest Manual Therapy Treatment Other Other Manual Treatments MMT LE's Self-Care/Home Management Treatment Education Patient Education Fall Risk,Home Exercise Program,Safety Other Education deep breathing; diaphragmatic, lateral trunk, chest updated HEP PT-OP-S Aquatic Treatment Start: 01/05/19 16:21 Freq: Status: Active Protocol: Document 04/18/19 11:00 NATASHA (Rec: 04/18/19 16:09 LJ [id number]) Aquatics Treatment Pool Entry/Exit Pool Entry/Exit Method Stairs Assistance Standby Assistance,Verbal Cues Water Walking Monster Walk Water Level Chest Level Level of Assistance Verbal Cues Comments slow pace Marching Water Level Chest Level Level of Assistance Verbal Cues Comments slow pace Sideways Water Level Chest Level Level of Assistance Standby Assistance,Verbal Cues Comments slow pace Forwards Water Level Chest Level Level of Assistance Standby Assistance,Verbal Cues Comments slow pace Lower Extremity Exercises hip flex/ext, ab/ad, circles Body Position Standing Water Level Waist Level Reps/Duration 10 ea Comments gentle side to side weight-shifts Body Position Standing Water Level Chest Level Reps/Duration 10x squats Body Position Standing Water Level Chest Level Reps/Duration 10x Lower Extremity Stretches hip flexor Body Position Standing Water Level Waist Level Equipment Small Noodle Reps/Duration 2x30 Comments at wall quads Body Position Standing Water Level Waist Level Equipment Small Noodle Comments at wall HC Body Position Standing Water Level Waist Level Equipment Small Noodle Reps/Duration 2x30 Comments toes on wall HS Body Position Standing Water Level Waist Level Reps/Duration 2x30 Upper Extremity Exercises flex/ext, ab/ad, horiz ab/ad Body Position Sitting Water Level Neck Level Reps/Duration 10 each direction Comments braced at wall, focus on core stability Spinal Exercises stretch cord resisted walking Body Position Standing Water Level Chest Level Reps/Duration 2 steps 4x each direction Comments stabilizing with mvmt stretch cord rotations Body Position Standing Water Level Chest Level Reps/Duration 8 each direction PT-OP-T Assessment and Plan Start: 01/05/19 16:21 Freq: Status: Active Protocol: Document 06/22/19 09:02 [facility]INO (Rec: 06/25/19 11:08 [facility] [id number]) Physical Therapy Assessment Rehab Potential Rehabilitation Potential Fair Evaluation Complexity Number of Personal Factors/Comorbidities 1-2 Number of Body Systems Impaired 3 Clinical Presentation at Evaluation Unstable Impairments Impairments Activity Tolerance,Functional Mobility,Strength Goals Three Impairment strength Residential Goal (LTG) Establish well-tolerated aquatic exercise program and HEP focused on strengthening and balance for patient with patient demonstrated independence and compliance and demonstrate good knowledge of how to modify depending on symptoms. 06/22/19: goal progress Two Impairment balance Short Term Goal (STG) Complete objective balance testing for baseline measurements 06/06/19: goal progress 06/22/19: further testing reveals good balance, cane required more for fatigue STG Duration 6 wks Automobile Washer Steam Goal (LTG) Patient to be safe and independent with gait on level and uneven surfaces with least restrictive device, and have no reported falls. Will be compliant with recommendations for home safety. 06/22/19: patient currently using single point cane for gait. Feel she would benefit from use of 4WW in the community to allow her to rest when needed, but she is resistant to this at this time . 06/06/19: good goal progress LTG Duration 12 wks One Impairment activity tolerance Short Term Goal (STG) instruct in energy conservation and pacing 06/06/19: goal met STG Duration MET Residential Goal (LTG) Patient to demonstrate good understanding and compliance with energy conservation and pacing of activities. 06/22/19: good goal progress LTG Duration 09/23/19 Assessment Summary Assessment No new diagnosis at this time with patient continuing to suffer from extreme fatigue and generalized weakness. Patient reports she feels she would like to have wheelchair for use at home at times but her expresses fear of what is to come including her potentially being in a wheelchair. After today's session which included a 6 min walk test (576 ft). Patient was assisted from PT gym to her car via wheelchair to assure she could make it home safely. Physical Therapy Plan Frequency and Duration Frequency of Treatment 1x/Week Duration of Treatment 12 wks Plan of Care Start Date 03/22/19 Plan of Care End Date 09/23/19 Therapeutic Interventions Therapeutic Interventions Aquatic Therapy,Balance Training,Coordination Training ,Gait Training,Home Exercise Program,Neuromuscular Re- education,Self-Care/Home Management,Therapeutic Activities,Therapeutic Exercises Next Visit Focus/Plan Next Note Type Treatment Note Next Visit Plan Continue gentle progression of ther ex as patient tolerates with emphasis on pacing, modification alternatives, deep breathing.
--- NOTE | 2019-06-22 09:02 | PT.OPPOC ---
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) Muscle weakness (generalized) (06/22/19) Visit Care Team Role Provider Type JENAE Mark Family Provider Advanced Product Development Manager Primary Care Provider Specialty: Family Practice Address: [address] [place] [address], [id number] Email: [email or web address] Julian Meza MD Attending Provider Non-Staff Specialty: Neurology Address: [address] [place], [address] Email: Plan Of Care PT-OP-T Assessment and Plan Start: 01/05/19 16:21 Freq: Status: Active Protocol: Document 06/22/19 09:02 CATARINO (Rec: 06/25/19 11:08 [facility] [id number]) Physical Therapy Assessment Rehab Potential Rehabilitation Potential Fair Evaluation Complexity Number of Personal Factors/Comorbidities 1-2 Number of Body Systems Impaired 3 Clinical Presentation at Evaluation Unstable Impairments Impairments Activity Tolerance,Functional Mobility,Strength Goals Three Impairment strength Inventory Representative Goal (LTG) Establish well-tolerated aquatic exercise program and HEP focused on strengthening and balance for patient with patient demonstrated independence and compliance and demonstrate good knowledge of how to modify depending on symptoms. 06/22/19: goal progress Two Impairment balance Short Term Goal (STG) Complete objective balance testing for baseline measurements 06/06/19: goal progress 06/22/19: further testing reveals good balance, cane required more for fatigue STG Duration 6 wks Inventory Representative Goal (LTG) Patient to be safe and independent with gait on level and uneven surfaces with least restrictive device, and have no reported falls. Will be compliant with recommendations for home safety. 06/22/19: patient currently using single point cane for gait. Feel she would benefit from use of 4WW in the community to allow her to rest when needed, but she is resistant to this at this time . 06/06/19: good goal progress LTG Duration 12 wks One Impairment activity tolerance Short Term Goal (STG) instruct in energy conservation and pacing 06/06/19: goal met STG Duration MET Inventory Representative Goal (LTG) Patient to demonstrate good understanding and compliance with energy conservation and pacing of activities. 06/22/19: good goal progress LTG Duration 09/23/19 Assessment Summary Assessment No new diagnosis at this time with patient continuing to suffer from extreme fatigue and generalized weakness. Patient reports she feels she would like to have wheelchair for use at home at times but her expresses fear of what is to come including her potentially being in a wheelchair. After today's session which included a 6 min walk test (576 ft). Patient was assisted from PT gym to her car via wheelchair to assure she could make it home safely. Physical Therapy Plan Frequency and Duration Frequency of Treatment 1x/Week Duration of Treatment 12 wks Plan of Care Start Date 03/22/19 Plan of Care End Date 09/23/19 Therapeutic Interventions Therapeutic Interventions Aquatic Therapy,Balance Training,Coordination Training ,Gait Training,Home Exercise Program,Neuromuscular Re- education,Self-Care/Home Management,Therapeutic Activities,Therapeutic Exercises Next Visit Focus/Plan Next Note Type Treatment Note Next Visit Plan Continue gentle progression of ther ex as patient tolerates with emphasis on pacing, modification alternatives, deep breathing. Plan of Care Dates Plan of Care Start Date 03/22/19 Plan of Care End Date 09/23/19 Electronically Signed by: Sydnie Clark PT 06/25/19 [id number] Please Sign and Return: I have reviewed this Plan of Care and certify that the skilled therapy services above are required to meet the patient?s needs. Physician Signature Date Printed Name and Credentials Clinical Instructor Signature Printed Name and Credentials
--- NOTE | 2019-07-04 10:34 | PT.OTN ---
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 Has been seeing specialists and having tests with diagnosis of possible indeterminate type of muscular dystrophy. Also reports exercise intolerance with SOB, increasing fatigue, need for much slower pace. The more I do the worse I feel . Hoping to see if she can establish an exercise program that will not exhaust her. Requesting possible aquatic therapy. Difficulty getting out of chairs, off floor. 2018 8-10 falls, this year being more careful, last fall was in July. Has not suffererd injury. Started Prednisone yesterday 15 mg. Prior experience with Prednisone caused migraine; has headache but not migraine. LE weakness symmetrical, no numbness or tingling. With falls, reports usually [address] Frequently uses cane or walker. No dizziness. BP well-managed. Uses electric tricycle. Has recumbant exercise bike, reports not using, has tendency to overdo. 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 Stool in shower, can dress self. Trip to [place] next week, has anxiety about being able to tolerate. Prior Treatments and Tests muscle biopsy negative [facility] neurologist States MS and ALS ruled out as diagnoses. Future Testing and Treatments Planned Spoke today with Claudy oStelo, doctor inclusion body myositis specialist at [facility] in [place]; has February 16 appointment Patient reports a second muscle biopsy recommended by [facility] physician Treatment Goals Patient/Caregiver Goals Improve strength/maintain, establish exercise program. Hoping for aquatic therapy. Had difficulty getting in/out of pool and felt uncoordinated last time in pool. Knows how to swim, but body has changed and it felt very difficult. Prior Functional Status Baseline Function- ADL's Independent Baseline Function- Mobility Independent Baseline Function- Gait independent without device Baseline Function- Work/School retired Baseline Function- Recreation/Hobbies walk, bike, hike Current Functional Impairments (Reported) Functional Limitations- ADL's slow, fatiguing Functional Limitations- Mobility/Gait very limited with c/o SOB, frequent rest breaks Functional Limitations- Work/School retired Functional Limitations- Recreation/ unable except has electric Hobbies tricycle PT-OP-C Subjective Start: 01/05/19 16:21 Freq: Status: Active Protocol: Document 07/04/19 09:44 SP (Rec: 07/04/19 11:54 SP [id number]) OP-PT Subjective Patient Comments Patient Comments Pt stated had 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 Compliant with HEP given and trying to do as tolerant with daily activities wanting to complete without fatiguing. Pt stated has been using 4 WW at home from [employer] for after shower dressing and ADL at sink so can sit for recovery. PT-OP-D Balance Start: 01/05/19 16:21 Freq: Status: Active Protocol: Document 06/06/19 08:59 SAK (Rec: 06/06/19 13:50 SAK [id number]) Balance Tests Sheth Balance Test Sheth Balance Test Score 53 Sheth Impairment Rating 1 to 19% Impaired (Score 45-55 ) PT-OP-E Functional Tests Start: 01/05/19 16:21 Freq: Status: Active Protocol: Document 06/06/19 08:59 SAK (Rec: 06/06/19 13:50 SAK [id number]) Functional Tests 6 Minute Walk Test Comments not done due to fatigue Timed Up and Go (TUG) Score 16.4 PT-OP-G Mobility & Gait Start: 01/05/19 16:21 Freq: Status: Active Protocol: Document 07/04/19 11:54 SP (Rec: 07/04/19 11:56 SP [id number]) OP Mobility Evaluation Bed Mobility Rolling I Supine to and from Sit I Transfers Sit to Stand Indep, no hands initially. Requires use of hands with fatigue PT-OP-H Neuro Start: 01/05/19 16:21 Freq: Status: Active Protocol: Document 06/06/19 08:59 [facility] (Rec: 06/06/19 13:50 [facility] [id number]) Sensation Evaluation Gross Sensation Gross Sensation WNL PT-OP-J Posture/Palpation/Skin Start: 01/05/19 16:21 Freq: Status: Active Protocol: Document 01/06/19 12:57 [facility] (Rec: 01/09/19 12:55 [facility] [id number]) Skin Assessment Other Assessments Skin Assessment Comments intact, no edema or brusing evident PT-OP-K Range of Motion Start: 01/05/19 16:21 Freq: Status: Active Protocol: Document 01/06/19 12:57 [facility] (Rec: 01/09/19 12:55 [facility] [id number]) Cervical Spine Range of Motion Cervical Spine Active Comments WNL Lumbar Spine Range of Motion Lumbar Spine Active Comments WNL Shoulder Goniometric Range of Motion Shoulder left Shoulder ROM WFL Yes right Shoulder ROM WFL Yes Elbow/Forearm Range of Motion Elbow/Forearm girma Elbow/Forearm ROM WFL Yes Wrist Goniometric Range of Motion Wrist girma Wrist ROM WFL Yes Hip Goniometric Range of Motion Hip girma Hip ROM WFL Yes Knee Goniometric Range of Motion Knee girma Knee ROM WFL Yes Ankle and Foot Goniometric Range of Motion Ankle and Foot girma Ankle/Foot ROM WFL Yes PT-OP-M Strength Start: 01/05/19 16:21 Freq: Status: Active Protocol: Document 06/06/19 08:59 [facility] (Rec: 06/06/19 13:50 [facility] [id number]) Shoulder Strength Shoulder Manual Muscle Testing Left Comments not tested due to fatigue Right Comments not tested due to fatigue Elbow/Forearm Strength Elbow and Forearm Manual Muscle Testing Left Comments not tested due to fatigue Right Comments not tested due to fatigue Hip Strength Hip Manual Muscle Testing Left Comments not tested due to fatigue Right Comments not tested due to fatigue Knee Strength Knee Manual Muscle Testing Left Comments not tested due to fatigue Right Comments not tested due to fatigue Ankle/Foot Strength Ankle and Foot Manual Muscle Testing Left Comments not tested due to fatigue Right Comments not tested due to fatigue PT-OP-Q Treatments Start: 01/05/19 16:21 Freq: Status: Active Protocol: Document 07/04/19 09:44 SP (Rec: 07/04/19 11:54 SP [id number]) Therapeutic Exercises Supine Exercises LTR Reps/Minutes 10x hip ab/ER Reps/Minutes 10x abdominal draw in Reps/Minutes 10x hip abd Supine Exercise Name hooklying Side bilateral Equipment Used YTB Reps/Minutes x10 Comments alternate, cued PPT awareness Self-Care/Home Management Treatment Activities Self-Care/Home Management Activities Bed mobility: rolling, use of stool in/out assist energy conservation on/off high bed. See mobility. PT-OP-S Aquatic Treatment Start: 01/05/19 16:21 Freq: Status: Active Protocol: Document 04/18/19 11:00 LJ (Rec: 04/18/19 16:09 LJ [id number]) Aquatics Treatment Pool Entry/Exit Pool Entry/Exit Method Stairs Assistance Standby Assistance,Verbal Cues Water Walking Monster Walk Water Level Chest Level Level of Assistance Verbal Cues Comments slow pace Marching Water Level Chest Level Level of Assistance Verbal Cues Comments slow pace Sideways Water Level Chest Level Level of Assistance Standby Assistance,Verbal Cues Comments slow pace Forwards Water Level Chest Level Level of Assistance Standby Assistance,Verbal Cues Comments slow pace Lower Extremity Exercises hip flex/ext, ab/ad, circles Body Position Standing Water Level Waist Level Reps/Duration 10 ea Comments gentle side to side weight-shifts Body Position Standing Water Level Chest Level Reps/Duration 10x squats Body Position Standing Water Level Chest Level Reps/Duration 10x Lower Extremity Stretches hip flexor Body Position Standing Water Level Waist Level Equipment Small Noodle Reps/Duration 2x30 Comments at wall quads Body Position Standing Water Level Waist Level Equipment Small Noodle Comments at wall HC Body Position Standing Water Level Waist Level Equipment Small Noodle Reps/Duration 2x30 Comments toes on wall HS Body Position Standing Water Level Waist Level Reps/Duration 2x30 Upper Extremity Exercises flex/ext, ab/ad, horiz ab/ad Body Position Sitting Water Level Neck Level Reps/Duration 10 each direction Comments braced at wall, focus on core stability Spinal Exercises stretch cord resisted walking Body Position Standing Water Level Chest Level Reps/Duration 2 steps 4x each direction Comments stabilizing with mvmt stretch cord rotations Body Position Standing Water Level Chest Level Reps/Duration 8 each direction PT-OP-T Assessment and Plan Start: 01/05/19 16:21 Freq: Status: Active Protocol: Document 07/04/19 09:44 SP (Rec: 07/04/19 11:54 SP [id number]) Physical Therapy Assessment Goals Three Impairment strength Gas Meter Checker Goal (LTG) Establish well-tolerated aquatic exercise program and HEP focused on strengthening and balance for patient with patient demonstrated independence and compliance and demonstrate good knowledge of how to modify depending on symptoms. 06/22/19: goal progress Two Impairment balance Short Term Goal (STG) Complete objective balance testing for baseline measurements 06/06/19: goal progress 06/22/19: further testing reveals good balance, cane required more for fatigue STG Duration 6 wks Gas Meter Checker Goal (LTG) Patient to be safe and independent with gait on level and uneven surfaces with least restrictive device, and have no reported falls. Will be compliant with recommendations for home safety. 06/22/19: patient currently using single point cane for gait. Feel she would benefit from use of 4WW in the community to allow her to rest when needed, but she is resistant to this at this time . 06/06/19: good goal progress LTG Duration 12 wks One Impairment activity tolerance Short Term Goal (STG) instruct in energy conservation and pacing 06/06/19: goal met STG Duration MET Gas Meter Checker Goal (LTG) Patient to demonstrate good understanding and compliance with energy conservation and pacing of activities. 06/22/19: good goal progress LTG Duration 09/23/19 Assessment Summary Assessment Tx focused on HEP review with occasional cuing for slow pacing, PPT and importance of rest for recovery between ex. Tx also focused on energy conservation during bed mobility on/off high bed using stool vs forward climb quadruped and transitioning to side sit to supine very fatiguing, instructed use of stool at EOB and back step then transitionto supine with + results that's much easier . R side (side she sleeps on) more fatiguing than L side of bed but wanting to decrease life changes right now with . Pt felt more confident using stool to use at home. Will review again next tx. Recommended patient bring 4WW next tx to work on proper brake mgt for safety during use in bathroom dressing and brushing teeth seated suupport. Physical Therapy Plan Frequency and Duration Frequency of Treatment 1x/Week Duration of Treatment 12 wks Plan of Care Start Date 03/22/19 Plan of Care End Date 09/23/19 Therapeutic Interventions Therapeutic Interventions Aquatic Therapy,Balance Training,Coordination Training ,Gait Training,Home Exercise Program,Neuromuscular Re- education,Self-Care/Home Management,Therapeutic Activities,Therapeutic Exercises Next Visit Focus/Plan Next Note Type Treatment Note Next Visit Plan Continue gentle progression of ther ex as patient tolerates with emphasis on pacing, modification alternatives, deep breathing.
--- NOTE | 2019-07-20 10:13 | PT.OTN ---
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) Muscle weakness (generalized) (07/20/19) Physical Therapy Treatment Note PT-OP-A Visit Information Start: 01/05/19 16:21 Freq: Status: Active Protocol: Document 07/20/19 09:01 SAK (Rec: 07/20/19 10:00 SAK [id number]) Out-Patient Physical Therapy Visit Information Visit Information Visit Type Treatment Note Visit Start Time 09:01 Visit Stop Time 09:46 Total Visit Minutes 45 Visit Number 15 Number of DUCT LAYER HELPER Visits 0 Precautions Precautions extreme fatigue PT-OP-B Current Condition Start: 01/05/19 16:21 Freq: Status: Active Protocol: Document 01/06/19 12:57 SAK (Rec: 01/06/19 13:25 SAK [id number]) Current Condition History of Current Condition Onset Date 4 yrs Current Complaints LE weakness and achiness, SOB History of Current Condition Gradual progressive weakness, started using cane May 2017. Has been seeing specialists and having tests with diagnosis of possible indeterminate type of muscular dystrophy. Also reports exercise intolerance with SOB, increasing fatigue, need for much slower pace. The more I do the worse I feel . Hoping to see if she can establish an exercise program that will not exhaust her. Requesting possible aquatic therapy. Difficulty getting out of chairs, off floor. 2018 8-10 falls, this year being more careful, last fall was in July. Has not suffererd injury. Started Prednisone yesterday 15 mg. Prior experience with Prednisone caused migraine; has headache but not migraine. LE weakness symmetrical, no numbness or tingling. With falls, reports usually [address] Frequently uses cane or walker. No dizziness. BP well-managed. Uses electric tricycle. Has recumbant exercise bike, reports not using, has tendency to overdo. 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 Stool in shower, can dress self. Trip to [place] next week, has anxiety about being able to tolerate. Prior Treatments and Tests muscle biopsy negative [facility] neurologist States MS and ALS ruled out as diagnoses. Future Testing and Treatments Planned Spoke today with Claudy Sotelo, doctor inclusion body myositis specialist at [facility] in [place]; has February 16 appointment Patient reports a second muscle biopsy recommended by [facility] physician Treatment Goals Patient/Caregiver Goals Improve strength/maintain, establish exercise program. Hoping for aquatic therapy. Had difficulty getting in/out of pool and felt uncoordinated last time in pool. Knows how to swim, but body has changed and it felt very difficult. Prior Functional Status Baseline Function- ADL's Independent Baseline Function- Mobility Independent Baseline Function- Gait independent without device Baseline Function- Work/School retired Baseline Function- Recreation/Hobbies walk, bike, hike Current Functional Impairments (Reported) Functional Limitations- ADL's slow, fatiguing Functional Limitations- Mobility/Gait very limited with c/o SOB, frequent rest breaks Functional Limitations- Work/School retired Functional Limitations- Recreation/ unable except has electric Hobbies tricycle PT-OP-C Subjective Start: 01/05/19 16:21 Freq: Status: Active Protocol: Document 07/20/19 09:01 [facility] (Rec: 07/20/19 10:00 [facility] [id number]) OP-PT Subjective Patient Comments Patient Comments No results from biopsy yet. Seeing Dr. Meza 07/22/19. Has been using walker more, sitting more during ADL's such as brushing teeth. Legs achy , fatigued, feeling weak. Min HEP, but riding recumbant bike every morning, has increased to 8 min per day, feels it lifts her spirits, though not strengthening so much. Walking less, using FWW more. Bowel and bladder unaffected. Feels UEs fatigue faster with emails, no N/T UE's or LE's. States she is more achy and doesn't do as well with more than 5-6 hrs of sleep. PT-OP-D Balance Start: 01/05/19 16:21 Freq: Status: Active Protocol: Document 06/06/19 08:59 [facility] (Rec: 06/06/19 13:50 [facility] [id number]) Balance Tests Sheth Balance Test Sheth Balance Test Score 53 Sheth Impairment Rating 1 to 19% Impaired (Score 45-55 ) PT-OP-E Functional Tests Start: 01/05/19 16:21 Freq: Status: Active Protocol: Document 07/20/19 09:01 [facility] (Rec: 07/20/19 10:00 SAK [id number]) Functional Tests 6 Minute Walk Test Comments not done due to fatigue PT-OP-G Mobility & Gait Start: 01/05/19 16:21 Freq: Status: Active Protocol: Document 07/04/19 11:54 SP (Rec: 07/04/19 11:56 SP [id number]) OP Mobility Evaluation Bed Mobility Rolling I Supine to and from Sit I Transfers Sit to Stand Indep, no hands initially. Requires use of hands with fatigue PT-OP-H Neuro Start: 01/05/19 16:21 Freq: Status: Active Protocol: Document 06/06/19 08:59 SAK (Rec: 06/06/19 13:50 SAK [id number]) Sensation Evaluation Gross Sensation Gross Sensation WNL PT-OP-J Posture/Palpation/Skin Start: 01/05/19 16:21 Freq: Status: Active Protocol: Document 01/06/19 12:57 SAK (Rec: 01/09/19 12:55 SAK [id number]) Skin Assessment Other Assessments Skin Assessment Comments intact, no edema or brusing evident PT-OP-K Range of Motion Start: 01/05/19 16:21 Freq: Status: Active Protocol: Document 01/06/19 12:57 SAK (Rec: 01/09/19 12:55 SAK [id number]) Cervical Spine Range of Motion Cervical Spine Active Comments WNL Lumbar Spine Range of Motion Lumbar Spine Active Comments WNL Shoulder Goniometric Range of Motion Shoulder left Shoulder ROM WFL Yes right Shoulder ROM WFL Yes Elbow/Forearm Range of Motion Elbow/Forearm girma Elbow/Forearm ROM WFL Yes Wrist Goniometric Range of Motion Wrist girma Wrist ROM WFL Yes Hip Goniometric Range of Motion Hip girma Hip ROM WFL Yes Knee Goniometric Range of Motion Knee girma Knee ROM WFL Yes Ankle and Foot Goniometric Range of Motion Ankle and Foot girma Ankle/Foot ROM WFL Yes PT-OP-M Strength Start: 01/05/19 16:21 Freq: Status: Active Protocol: Document 07/20/19 10:10 SAK (Rec: 07/20/19 10:13 SAK [id number]) Hip Strength Hip Manual Muscle Testing Left Flexion (L2) 4- Good- Right Flexion (L2) 4- Good- Knee Strength Knee Manual Muscle Testing Left Flexion (S2) 4 Good Extension (L3) 4 Good Right Flexion (S2) 4 Good Extension (L3) 4 Good Ankle/Foot Strength Ankle and Foot Manual Muscle Testing Left Dorsiflexion (L4) 4 Good Right Dorsiflexion (L4) 4 Good PT-OP-Q Treatments Start: 01/05/19 16:21 Freq: Status: Active Protocol: Document 07/20/19 09:01 SAK (Rec: 07/20/19 10:00 SAK [id number]) Cardio Equipment Recumbent Elliptical (Biodex) Duration (Minutes) 5 Resistance 1 Seat Position 4 Other low RPM Therapeutic Exercises Sitting Exercises hip abd Reps/Minutes 5x shoulder blade squeeze Reps/Minutes 5x shoulder shrugs Reps/Minutes 5x hip add Sitting Exercise Name pillow squeeze Reps/Minutes 5x LAQ Reps/Minutes 5x ea heel/toe raise Reps/Minutes 5x ea Therapeutic Activity Therapeutic Activity balance and gait testing Comments 2 min walk 184 ft with FWW Manual Therapy Treatment Other Other Manual Treatments MMT LE's Self-Care/Home Management Treatment Education Patient Education Home Exercise Program Other Education updated HEP; issued seated HEP per patient request after discussion about what she can best work into her day. PT-OP-S Aquatic Treatment Start: 01/05/19 16:21 Freq: Status: Active Protocol: Document 04/18/19 11:00 NATASHA (Rec: 04/18/19 16:09 NATASHA [id number]) Aquatics Treatment Pool Entry/Exit Pool Entry/Exit Method Stairs Assistance Standby Assistance,Verbal Cues Water Walking Monster Walk Water Level Chest Level Level of Assistance Verbal Cues Comments slow pace Marching Water Level Chest Level Level of Assistance Verbal Cues Comments slow pace Sideways Water Level Chest Level Level of Assistance Standby Assistance,Verbal Cues Comments slow pace Forwards Water Level Chest Level Level of Assistance Standby Assistance,Verbal Cues Comments slow pace Lower Extremity Exercises hip flex/ext, ab/ad, circles Body Position Standing Water Level Waist Level Reps/Duration 10 ea Comments gentle side to side weight-shifts Body Position Standing Water Level Chest Level Reps/Duration 10x squats Body Position Standing Water Level Chest Level Reps/Duration 10x Lower Extremity Stretches hip flexor Body Position Standing Water Level Waist Level Equipment Small Noodle Reps/Duration 2x30 Comments at wall quads Body Position Standing Water Level Waist Level Equipment Small Noodle Comments at wall HC Body Position Standing Water Level Waist Level Equipment Small Noodle Reps/Duration 2x30 Comments toes on wall HS Body Position Standing Water Level Waist Level Reps/Duration 2x30 Upper Extremity Exercises flex/ext, ab/ad, horiz ab/ad Body Position Sitting Water Level Neck Level Reps/Duration 10 each direction Comments braced at wall, focus on core stability Spinal Exercises stretch cord resisted walking Body Position Standing Water Level Chest Level Reps/Duration 2 steps 4x each direction Comments stabilizing with mvmt stretch cord rotations Body Position Standing Water Level Chest Level Reps/Duration 8 each direction PT-OP-T Assessment and Plan Start: 01/05/19 16:21 Freq: Status: Active Protocol: Document 07/20/19 09:01 CATARINO (Rec: 07/20/19 10:00 CATARINO [id number]) Physical Therapy Assessment Goals Three Impairment strength Pharmacy Stock Clerk Goal (LTG) Establish well-tolerated aquatic exercise program and HEP focused on strengthening and balance for patient with patient demonstrated independence and compliance and demonstrate good knowledge of how to modify depending on symptoms. 06/22/19: goal progress Two Impairment balance Short Term Goal (STG) Complete objective balance testing for baseline measurements 06/06/19: goal progress 06/22/19: further testing reveals good balance, cane required more for fatigue STG Duration 6 wks [facility] Goal (LTG) Patient to be safe and independent with gait on level and uneven surfaces with least restrictive device, and have no reported falls. Will be compliant with recommendations for home safety. 06/22/19: patient currently using single point cane for gait. Feel she would benefit from use of 4WW in the community to allow her to rest when needed, but she is resistant to this at this time . 06/06/19: good goal progress LTG Duration 12 wks One Impairment activity tolerance Short Term Goal (STG) instruct in energy conservation and pacing 06/06/19: goal met STG Duration MET Pharmacy Stock Clerk Goal (LTG) Patient to demonstrate good understanding and compliance with energy conservation and pacing of activities. 06/22/19: good goal progress LTG Duration 09/23/19 Assessment Summary Assessment Patient endurance improved today, though speed of walking slower and now using FWW mostly. She is awaiting the results of her biopsy and sees neurologist in 2 days. She talks with a counselor, but her refuses despite the toll her functional decline is taking on him as well. Patient receptive to seated exercise program, prefers over standing (too fatiguing) or laying down. Physical Therapy Plan Frequency and Duration Frequency of Treatment 1x/Week Duration of Treatment 12 wks Plan of Care Start Date 06/22/18 Plan of Care End Date 09/23/19 Therapeutic Interventions Therapeutic Interventions Aquatic Therapy,Balance Training,Coordination Training ,Gait Training,Home Exercise Program,Neuromuscular Re- education,Self-Care/Home Management,Therapeutic Activities,Therapeutic Exercises Next Visit Focus/Plan Next Note Type Treatment Note Next Visit Plan Continue gentle progression of ther ex as patient tolerates with emphasis on pacing, modification alternatives, deep breathing.
--- NOTE | 2019-07-25 10:30 | PT.OTN ---
Current Diagnoses Spasmodic torticollis (07/25/19) Myotonic muscular dystrophy (07/25/19) Muscle weakness (generalized) (07/25/19) Physical Therapy Treatment Note PT-OP-A Visit Information Start: 01/05/19 16:21 Freq: Status: Active Protocol: Document 07/25/19 10:30 RB (Rec: 07/25/19 13:29 RB [id number]) Out-Patient Physical Therapy Visit Information Visit Information Visit Type Treatment Note Visit Start Time 09:52 Visit Stop Time 10:30 Total Visit Minutes 38 Visit Number 16 Number of CHIEF GREEN OFFICER Visits 1 Precautions Precautions extreme fatigue PT-OP-B Current Condition Start: 01/05/19 16:21 Freq: Status: Active Protocol: Document 01/06/19 12:57 SAK (Rec: 01/06/19 13:25 SAK [id number]) Current Condition History of Current Condition Onset Date 4 yrs Current Complaints LE weakness and achiness, SOB History of Current Condition Gradual progressive weakness, started using cane May 2017. Has been seeing specialists and having tests with diagnosis of possible indeterminate type of muscular dystrophy. Also reports exercise intolerance with SOB, increasing fatigue, need for much slower pace. The more I do the worse I feel . Hoping to see if she can establish an exercise program that will not exhaust her. Requesting possible aquatic therapy. Difficulty getting out of chairs, off floor. 2018 8-10 falls, this year being more careful, last fall was in July. Has not suffererd injury. Started Prednisone yesterday 15 mg. Prior experience with Prednisone caused migraine; has headache but not migraine. LE weakness symmetrical, no numbness or tingling. With falls, reports usually [address] Frequently uses cane or walker. No dizziness. BP well-managed. Uses electric tricycle. Has recumbant exercise bike, reports not using, has tendency to overdo. 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 Stool in shower, can dress self. Trip to [place] next week, has anxiety about being able to tolerate. Prior Treatments and Tests muscle biopsy negative [facility] neurologist States MS and ALS ruled out as diagnoses. Future Testing and Treatments Planned Spoke today with Claudy Sotelo, doctor inclusion body myositis specialist at [facility] in [place]; has February 16 appointment Patient reports a second muscle biopsy recommended by [facility] physician Treatment Goals Patient/Caregiver Goals Improve strength/maintain, establish exercise program. Hoping for aquatic therapy. Had difficulty getting in/out of pool and felt uncoordinated last time in pool. Knows how to swim, but body has changed and it felt very difficult. Prior Functional Status Baseline Function- ADL's Independent Baseline Function- Mobility Independent Baseline Function- Gait independent without device Baseline Function- Work/School retired Baseline Function- Recreation/Hobbies walk, bike, hike Current Functional Impairments (Reported) Functional Limitations- ADL's slow, fatiguing Functional Limitations- Mobility/Gait very limited with c/o SOB, frequent rest breaks Functional Limitations- Work/School retired Functional Limitations- Recreation/ unable except has electric Hobbies tricycle PT-OP-C Subjective Start: 01/05/19 16:21 Freq: Status: Active Protocol: Document 07/25/19 10:30 RB (Rec: 07/25/19 13:29 RB [id number]) OP-PT Subjective Patient Comments Patient Comments Pt. states that she used her home recumbent bike this morning for 10 min w/ no resistance. She hope to add resistance next week. Pt. had a biopsy and states the Dr. she may have polyneuropthy and requested IVIG therapy. Pt. states PT is helping her to think clearer, boost energy for talking, overall helping. She is able to load the pipe smoking machine offbearer at her home up to 2 persons worth. Pt. states she sits while getting dressed and showering because it is draining. PT-OP-D Balance Start: 01/05/19 16:21 Freq: Status: Active Protocol: Document 06/06/19 08:59 SAK (Rec: 06/06/19 13:50 SAK [id number]) Balance Tests Sheth Balance Test Sheth Balance Test Score 53 Sheth Impairment Rating 1 to 19% Impaired (Score 45-55 ) PT-OP-E Functional Tests Start: 01/05/19 16:21 Freq: Status: Active Protocol: Document 07/20/19 09:01 SAK (Rec: 07/20/19 10:00 SAK [id number]) Functional Tests 6 Minute Walk Test Comments not done due to fatigue PT-OP-G Mobility & Gait Start: 01/05/19 16:21 Freq: Status: Active Protocol: Document 07/04/19 11:54 SP (Rec: 07/04/19 11:56 SP [id number]) OP Mobility Evaluation Bed Mobility Rolling I Supine to and from Sit I Transfers Sit to Stand Indep, no hands initially. Requires use of hands with fatigue PT-OP-H Neuro Start: 01/05/19 16:21 Freq: Status: Active Protocol: Document 06/06/19 08:59 SAK (Rec: 06/06/19 13:50 SAK [id number]) Sensation Evaluation Gross Sensation Gross Sensation WNL PT-OP-J Posture/Palpation/Skin Start: 01/05/19 16:21 Freq: Status: Active Protocol: Document 01/06/19 12:57 SAK (Rec: 01/09/19 12:55 SAK [id number]) Skin Assessment Other Assessments Skin Assessment Comments intact, no edema or brusing evident PT-OP-K Range of Motion Start: 01/05/19 16:21 Freq: Status: Active Protocol: Document 01/06/19 12:57 SAK (Rec: 01/09/19 12:55 SAK [id number]) Cervical Spine Range of Motion Cervical Spine Active Comments WNL Lumbar Spine Range of Motion Lumbar Spine Active Comments WNL Shoulder Goniometric Range of Motion Shoulder left Shoulder ROM WFL Yes right Shoulder ROM WFL Yes Elbow/Forearm Range of Motion Elbow/Forearm girma Elbow/Forearm ROM WFL Yes Wrist Goniometric Range of Motion Wrist girma Wrist ROM WFL Yes Hip Goniometric Range of Motion Hip girma Hip ROM WFL Yes Knee Goniometric Range of Motion Knee girma Knee ROM WFL Yes Ankle and Foot Goniometric Range of Motion Ankle and Foot girma Ankle/Foot ROM WFL Yes PT-OP-M Strength Start: 01/05/19 16:21 Freq: Status: Active Protocol: Document 07/20/19 10:10 SAK (Rec: 07/20/19 10:13 SAK [id number]) Hip Strength Hip Manual Muscle Testing Left Flexion (L2) 4- Good- Right Flexion (L2) 4- Good- Knee Strength Knee Manual Muscle Testing Left Flexion (S2) 4 Good Extension (L3) 4 Good Right Flexion (S2) 4 Good Extension (L3) 4 Good Ankle/Foot Strength Ankle and Foot Manual Muscle Testing Left Dorsiflexion (L4) 4 Good Right Dorsiflexion (L4) 4 Good PT-OP-Q Treatments Start: 01/05/19 16:21 Freq: Status: Active Protocol: Document 07/25/19 10:30 RB (Rec: 07/25/19 13:29 RB [id number]) Cardio Equipment Recumbent Stepper (Sci-Fit) Duration (Minutes) 5 Resistance 1.5 Seat Position 7 Therapeutic Exercises Sitting Exercises hip abd Reps/Minutes 5x shoulder blade squeeze Resistance TB 1 Reps/Minutes Hold for 5 sec x5 shoulder shrugs Reps/Minutes 5x hip add Sitting Exercise Name ball squeeze Reps/Minutes hold 5 sec x5 LAQ Reps/Minutes 10x ea heel/toe raise Reps/Minutes 5x ea Standing Exercises Sit to Stand Standing Exercise Name arms across chest Equipment Used high low table Reps/Minutes x 5 Gait Training Gait Activity gait Device Used SPC Distance/Duration 154 ft Comments aprox. 80ft stride pacing decreased significantly PT-OP-S Aquatic Treatment Start: 01/05/19 16:21 Freq: Status: Active Protocol: Document 04/18/19 11:00 LJ (Rec: 04/18/19 16:09 LJ [id number]) Aquatics Treatment Pool Entry/Exit Pool Entry/Exit Method Stairs Assistance Standby Assistance,Verbal Cues Water Walking Monster Walk Water Level Chest Level Level of Assistance Verbal Cues Comments slow pace Marching Water Level Chest Level Level of Assistance Verbal Cues Comments slow pace Sideways Water Level Chest Level Level of Assistance Standby Assistance,Verbal Cues Comments slow pace Forwards Water Level Chest Level Level of Assistance Standby Assistance,Verbal Cues Comments slow pace Lower Extremity Exercises hip flex/ext, ab/ad, circles Body Position Standing Water Level Waist Level Reps/Duration 10 ea Comments gentle side to side weight-shifts Body Position Standing Water Level Chest Level Reps/Duration 10x squats Body Position Standing Water Level Chest Level Reps/Duration 10x Lower Extremity Stretches hip flexor Body Position Standing Water Level Waist Level Equipment Small Noodle Reps/Duration 2x30 Comments at wall quads Body Position Standing Water Level Waist Level Equipment Small Noodle Comments at wall HC Body Position Standing Water Level Waist Level Equipment Small Noodle Reps/Duration 2x30 Comments toes on wall HS Body Position Standing Water Level Waist Level Reps/Duration 2x30 Upper Extremity Exercises flex/ext, ab/ad, horiz ab/ad Body Position Sitting Water Level Neck Level Reps/Duration 10 each direction Comments braced at wall, focus on core stability Spinal Exercises stretch cord resisted walking Body Position Standing Water Level Chest Level Reps/Duration 2 steps 4x each direction Comments stabilizing with mvmt stretch cord rotations Body Position Standing Water Level Chest Level Reps/Duration 8 each direction PT-OP-T Assessment and Plan Start: 01/05/19 16:21 Freq: Status: Active Protocol: Document 07/25/19 10:30 RB (Rec: 07/25/19 13:29 RB [email or web address]) Physical Therapy Assessment Goals Three Impairment strength [facility] Goal (LTG) Establish well-tolerated aquatic exercise program and HEP focused on strengthening and balance for patient with patient demonstrated independence and compliance and demonstrate good knowledge of how to modify depending on symptoms. 06/22/19: goal progress Two Impairment balance Short Term Goal (STG) Complete objective balance testing for baseline measurements 06/06/19: goal progress 06/22/19: further testing reveals good balance, cane required more for fatigue STG Duration 6 wks [facility] Goal (LTG) Patient to be safe and independent with gait on level and uneven surfaces with least restrictive device, and have no reported falls. Will be compliant with recommendations for home safety. 06/22/19: patient currently using single point cane for gait. Feel she would benefit from use of 4WW in the community to allow her to rest when needed, but she is resistant to this at this time . 06/06/19: good goal progress LTG Duration 12 wks One Impairment activity tolerance Short Term Goal (STG) instruct in energy conservation and pacing 06/06/19: goal met STG Duration MET Application Support Technician Goal (LTG) Patient to demonstrate good understanding and compliance with energy conservation and pacing of activities. 06/22/19: good goal progress LTG Duration 09/23/19 Assessment Summary Assessment Tx focused on HEP review and seated therex, required rest breaks between sets for recovery. Was able to add resistance to scap squeeze w/ good tolerance. Perfomed gait at end treatment w/ SPC and noted decresed pace as distance progressed secondary to tireing. Pt. working with PCP to meet with a dietitian to assist with boosting energy levels. Physical Therapy Plan Next Visit Focus/Plan Next Note Type Treatment Note Next Visit Plan Continue gentle progression of ther ex as patient tolerates with emphasis on pacing, modification alternatives, deep breathing.
--- NOTE | 2019-08-03 17:07 | PT.OTN ---
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) Muscle weakness (generalized) (08/03/19) Physical Therapy Treatment Note PT-OP-A Visit Information Start: 01/05/19 16:21 Freq: Status: Active Protocol: Document 08/03/19 09:02 SAK (Rec: 08/03/19 09:47 SAK [id number]) Out-Patient Physical Therapy Visit Information Visit Information Visit Type Treatment Note Visit Start Time 09:52 Visit Stop Time 10:30 Total Visit Minutes 45 Visit Number 17 Number of CHEMIST Visits 1 Precautions Precautions extreme fatigue PT-OP-B Current Condition Start: 01/05/19 16:21 Freq: Status: Active Protocol: Document 01/06/19 12:57 SAK (Rec: 01/06/19 13:25 SAK [id number]) Current Condition History of Current Condition Onset Date 4 yrs Current Complaints LE weakness and achiness, SOB History of Current Condition Gradual progressive weakness, started using cane May 2017. Has been seeing specialists and having tests with diagnosis of possible indeterminate type of muscular dystrophy. Also reports exercise intolerance with SOB, increasing fatigue, need for much slower pace. The more I do the worse I feel . Hoping to see if she can establish an exercise program that will not exhaust her. Requesting possible aquatic therapy. Difficulty getting out of chairs, off floor. 2018 8-10 falls, this year being more careful, last fall was in July. Has not suffererd injury. Started Prednisone yesterday 15 mg. Prior experience with Prednisone caused migraine; has headache but not migraine. LE weakness symmetrical, no numbness or tingling. With falls, reports usually [address] Frequently uses cane or walker. No dizziness. BP well-managed. Uses electric tricycle. Has recumbant exercise bike, reports not using, has tendency to overdo. 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 Stool in shower, can dress self. Trip to [place] next week, has anxiety about being able to tolerate. Prior Treatments and Tests muscle biopsy negative [facility] neurologist States MS and ALS ruled out as diagnoses. Future Testing and Treatments Planned Spoke today with Claudy Sotelo, doctor inclusion body myositis specialist at [facility] in [place]; has February 16 appointment Patient reports a second muscle biopsy recommended by [facility] physician Treatment Goals Patient/Caregiver Goals Improve strength/maintain, establish exercise program. Hoping for aquatic therapy. Had difficulty getting in/out of pool and felt uncoordinated last time in pool. Knows how to swim, but body has changed and it felt very difficult. Prior Functional Status Baseline Function- ADL's Independent Baseline Function- Mobility Independent Baseline Function- Gait independent without device Baseline Function- Work/School retired Baseline Function- Recreation/Hobbies walk, bike, hike Current Functional Impairments (Reported) Functional Limitations- ADL's slow, fatiguing Functional Limitations- Mobility/Gait very limited with c/o SOB, frequent rest breaks Functional Limitations- Work/School retired Functional Limitations- Recreation/ unable except has electric Hobbies tricycle PT-OP-C Subjective Start: 01/05/19 16:21 Freq: Status: Active Protocol: Document 08/03/19 09:02 [facility] (Rec: 08/03/19 09:47 [facility] [id number]) OP-PT Subjective Patient Comments Patient Comments There has been a shift, feeling some improvement. Continues to use exercise bike 10 min daily and has added a little resistanace . Hasn't used walker in a few days, went up the stairs for the first time in months. Also eating low/no carb and doing intermittant fasting. First time in 3 years able to stand to get dressed. Has hired a caregiver to help with things around the house 1 afternoon per week. Saw radiology director who stated she didn't think diagnosis small fiber polyneuropathy and Sjogren's PT-OP-D Balance Start: 01/05/19 16:21 Freq: Status: Active Protocol: Document 06/06/19 08:59 [facility] (Rec: 06/06/19 13:50 [facility] [id number]) Balance Tests Sheth Balance Test Sheth Balance Test Score 53 Sheth Impairment Rating 1 to 19% Impaired (Score 45-55 ) PT-OP-E Functional Tests Start: 01/05/19 16:21 Freq: Status: Active Protocol: Document 07/20/19 09:01 SAK (Rec: 07/20/19 10:00 [facility] [id number]) Functional Tests 6 Minute Walk Test Comments not done due to fatigue PT-OP-G Mobility & Gait Start: 01/05/19 16:21 Freq: Status: Active Protocol: Document 07/04/19 11:54 SP (Rec: 07/04/19 11:56 SP [id number]) OP Mobility Evaluation Bed Mobility Rolling I Supine to and from Sit I Transfers Sit to Stand Indep, no hands initially. Requires use of hands with fatigue PT-OP-H Neuro Start: 01/05/19 16:21 Freq: Status: Active Protocol: Document 06/06/19 08:59 SAK (Rec: 06/06/19 13:50 SAK [id number]) Sensation Evaluation Gross Sensation Gross Sensation WNL PT-OP-J Posture/Palpation/Skin Start: 01/05/19 16:21 Freq: Status: Active Protocol: Document 01/06/19 12:57 SAK (Rec: 01/09/19 12:55 SAK [id number]) Skin Assessment Other Assessments Skin Assessment Comments intact, no edema or brusing evident PT-OP-K Range of Motion Start: 01/05/19 16:21 Freq: Status: Active Protocol: Document 01/06/19 12:57 SAK (Rec: 01/09/19 12:55 SAK [id number]) Cervical Spine Range of Motion Cervical Spine Active Comments WNL Lumbar Spine Range of Motion Lumbar Spine Active Comments WNL Shoulder Goniometric Range of Motion Shoulder left Shoulder ROM WFL Yes right Shoulder ROM WFL Yes Elbow/Forearm Range of Motion Elbow/Forearm girma Elbow/Forearm ROM WFL Yes Wrist Goniometric Range of Motion Wrist girma Wrist ROM WFL Yes Hip Goniometric Range of Motion Hip girma Hip ROM WFL Yes Knee Goniometric Range of Motion Knee girma Knee ROM WFL Yes Ankle and Foot Goniometric Range of Motion Ankle and Foot girma Ankle/Foot ROM WFL Yes PT-OP-M Strength Start: 01/05/19 16:21 Freq: Status: Active Protocol: Document 07/20/19 10:10 SAK (Rec: 07/20/19 10:13 SAK [id number]) Hip Strength Hip Manual Muscle Testing Left Flexion (L2) 4- Good- Right Flexion (L2) 4- Good- Knee Strength Knee Manual Muscle Testing Left Flexion (S2) 4 Good Extension (L3) 4 Good Right Flexion (S2) 4 Good Extension (L3) 4 Good Ankle/Foot Strength Ankle and Foot Manual Muscle Testing Left Dorsiflexion (L4) 4 Good Right Dorsiflexion (L4) 4 Good PT-OP-Q Treatments Start: 01/05/19 16:21 Freq: Status: Active Protocol: Document 08/03/19 09:02 SAK (Rec: 08/03/19 09:47 SAK [id number]) Cardio Equipment Recumbent Elliptical (Biodex) Duration (Minutes) 7 Resistance 1 Seat Position 4 Therapeutic Exercises Sitting Exercises march Reps/Minutes 10x horizontal abduction Reps/Minutes 3x Comments with deep breathing hip abd Reps/Minutes 5x shoulder blade squeeze Resistance TB 1 Reps/Minutes Hold for 5 sec x5 hip add Sitting Exercise Name ball squeeze Reps/Minutes 10 x 2 sec LAQ Reps/Minutes 10x ea Standing Exercises march Reps/Minutes 10x heel raise, toe raise Reps/Minutes 5x ea Sit to Stand Standing Exercise Name arms across chest Equipment Used chair Reps/Minutes x 6 Therapeutic Activity Therapeutic Activity balance and gait testing Comments 2 min walk 248 ft with single point cane Gait Training Gait Activity gait Distance/Duration 50 x 3 PT-OP-S Aquatic Treatment Start: 01/05/19 16:21 Freq: Status: Active Protocol: Document 04/18/19 11:00 NATASHA (Rec: 04/18/19 16:09 LJ [id number]) Aquatics Treatment Pool Entry/Exit Pool Entry/Exit Method Stairs Assistance Standby Assistance,Verbal Cues Water Walking Monster Walk Water Level Chest Level Level of Assistance Verbal Cues Comments slow pace Marching Water Level Chest Level Level of Assistance Verbal Cues Comments slow pace Sideways Water Level Chest Level Level of Assistance Standby Assistance,Verbal Cues Comments slow pace Forwards Water Level Chest Level Level of Assistance Standby Assistance,Verbal Cues Comments slow pace Lower Extremity Exercises hip flex/ext, ab/ad, circles Body Position Standing Water Level Waist Level Reps/Duration 10 ea Comments gentle side to side weight-shifts Body Position Standing Water Level Chest Level Reps/Duration 10x squats Body Position Standing Water Level Chest Level Reps/Duration 10x Lower Extremity Stretches hip flexor Body Position Standing Water Level Waist Level Equipment Small Noodle Reps/Duration 2x30 Comments at wall quads Body Position Standing Water Level Waist Level Equipment Small Noodle Comments at wall HC Body Position Standing Water Level Waist Level Equipment Small Noodle Reps/Duration 2x30 Comments toes on wall HS Body Position Standing Water Level Waist Level Reps/Duration 2x30 Upper Extremity Exercises flex/ext, ab/ad, horiz ab/ad Body Position Sitting Water Level Neck Level Reps/Duration 10 each direction Comments braced at wall, focus on core stability Spinal Exercises stretch cord resisted walking Body Position Standing Water Level Chest Level Reps/Duration 2 steps 4x each direction Comments stabilizing with mvmt stretch cord rotations Body Position Standing Water Level Chest Level Reps/Duration 8 each direction PT-OP-T Assessment and Plan Start: 01/05/19 16:21 Freq: Status: Active Protocol: Document 08/03/19 09:02 SAK (Rec: 08/03/19 09:47 [facility] [id number]) Physical Therapy Assessment Goals Three Impairment strength Anesthetist Goal (LTG) Establish well-tolerated aquatic exercise program and HEP focused on strengthening and balance for patient with patient demonstrated independence and compliance and demonstrate good knowledge of how to modify depending on symptoms. 06/22/19: goal progress Two Impairment balance Short Term Goal (STG) Complete objective balance testing for baseline measurements 06/06/19: goal progress 06/22/19: further testing reveals good balance, cane required more for fatigue STG Duration 6 wks Snf Goal (LTG) Patient to be safe and independent with gait on level and uneven surfaces with least restrictive device, and have no reported falls. Will be compliant with recommendations for home safety. 06/22/19: patient currently using single point cane for gait. Feel she would benefit from use of 4WW in the community to allow her to rest when needed, but she is resistant to this at this time . 06/06/19: good goal progress LTG Duration 12 wks One Impairment activity tolerance Short Term Goal (STG) instruct in energy conservation and pacing 06/06/19: goal met STG Duration MET Anesthetist Goal (LTG) Patient to demonstrate good understanding and compliance with energy conservation and pacing of activities. 06/22/19: good goal progress LTG Duration 09/23/19 Assessment Summary Assessment Good improvement in exercise and functional activity tolerance, patient affect more positive and hopeful, though diagnosis still uncertain. Expressing hope that she will be able to return for aquatic therapy, though feel and this time not read, will continue to evaluate. Continue to have frequent rest breaks but able to tolerate full 45 min session today. Physical Therapy Plan Frequency and Duration Frequency of Treatment 1x/Week Duration of Treatment 12 wks Plan of Care Start Date 06/22/18 Plan of Care End Date 09/23/19 Therapeutic Interventions Therapeutic Interventions Aquatic Therapy,Balance Training,Coordination Training ,Gait Training,Home Exercise Program,Neuromuscular Re- education,Self-Care/Home Management,Therapeutic Activities,Therapeutic Exercises Next Visit Focus/Plan Next Note Type Treatment Note Next Visit Plan ASsess response to increase in exercise last session, and current activity tolerance at home. Continue gentle progression of ther ex as patient tolerates with emphasis on pacing, modification alternatives, deep breathing.
--- NOTE | 2019-08-08 10:33 | PT.OTN ---
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) Muscle weakness (generalized) (08/08/19) Physical Therapy Treatment Note PT-OP-A Visit Information Start: 01/05/19 16:21 Freq: Status: Active Protocol: Document 08/08/19 09:51 SP (Rec: 08/08/19 10:35 SP [id number]) Out-Patient Physical Therapy Visit Information Visit Information Visit Type Treatment Note Visit Start Time 09:51 Visit Stop Time 10:33 Total Visit Minutes 42 Visit Number 18 Number of RECOVERY SPECIALIST Visits 1 PT-OP-B Current Condition Start: 01/05/19 16:21 Freq: Status: Active Protocol: Document 01/06/19 12:57 SAK (Rec: 01/06/19 13:25 SAK [id number]) Current Condition History of Current Condition Onset Date 4 yrs Current Complaints LE weakness and achiness, SOB History of Current Condition Gradual progressive weakness, started using cane May 2017. Has been seeing specialists and having tests with diagnosis of possible indeterminate type of muscular dystrophy. Also reports exercise intolerance with SOB, increasing fatigue, need for much slower pace. The more I do the worse I feel . Hoping to see if she can establish an exercise program that will not exhaust her. Requesting possible aquatic therapy. Difficulty getting out of chairs, off floor. 2018 8-10 falls, this year being more careful, last fall was in July. Has not suffererd injury. Started Prednisone yesterday 15 mg. Prior experience with Prednisone caused migraine; has headache but not migraine. LE weakness symmetrical, no numbness or tingling. With falls, reports usually [address] Frequently uses cane or walker. No dizziness. BP well-managed. Uses electric tricycle. Has recumbant exercise bike, reports not using, has tendency to overdo. 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 Stool in shower, can dress self. Trip to [place] next week, has anxiety about being able to tolerate. Prior Treatments and Tests muscle biopsy negative [facility] neurologist States MS and ALS ruled out as diagnoses. Future Testing and Treatments Planned Spoke today with Claudy Sotelo, doctor inclusion body myositis specialist at [facility] in [place]; has February 16 appointment Patient reports a second muscle biopsy recommended by [facility] physician Treatment Goals Patient/Caregiver Goals Improve strength/maintain, establish exercise program. Hoping for aquatic therapy. Had difficulty getting in/out of pool and felt uncoordinated last time in pool. Knows how to swim, but body has changed and it felt very difficult. Prior Functional Status Baseline Function- ADL's Independent Baseline Function- Mobility Independent Baseline Function- Gait independent without device Baseline Function- Work/School retired Baseline Function- Recreation/Hobbies walk, bike, hike Current Functional Impairments (Reported) Functional Limitations- ADL's slow, fatiguing Functional Limitations- Mobility/Gait very limited with c/o SOB, frequent rest breaks Functional Limitations- Work/School retired Functional Limitations- Recreation/ unable except has electric Hobbies tricycle PT-OP-C Subjective Start: 01/05/19 16:21 Freq: Status: Active Protocol: Document 08/08/19 09:51 SP (Rec: 08/08/19 10:35 SP [id number]) OP-PT Subjective Patient Comments Patient Comments Pt stated felt pretty good after last tx. Overall doing better, legs feeling stronger with nice day yesterday so went for a walk and made around the block with her but pacing decreased as distance progressed. Has been intermittent fasting 3 pm to 7am and seeing results in weight, mental more clear and energy feeling like more. Endurance is still not as well as would like. Recovery time is shorter than has been. Pt stated tried increasing her home bike 10 min and little more resistance and was little to much and took couple days to recover. PT-OP-D Balance Start: 01/05/19 16:21 Freq: Status: Active Protocol: Document 06/06/19 08:59 SAK (Rec: 06/06/19 13:50 SAK [id number]) Balance Tests Sheth Balance Test Sheth Balance Test Score 53 Sheth Impairment Rating 1 to 19% Impaired (Score 45-55 ) PT-OP-E Functional Tests Start: 01/05/19 16:21 Freq: Status: Active Protocol: Document 07/20/19 09:01 SAK (Rec: 07/20/19 10:00 SAK [id number]) Functional Tests 6 Minute Walk Test Comments not done due to fatigue PT-OP-G Mobility & Gait Start: 01/05/19 16:21 Freq: Status: Active Protocol: Document 07/04/19 11:54 SP (Rec: 07/04/19 11:56 SP [id number]) OP Mobility Evaluation Bed Mobility Rolling I Supine to and from Sit I Transfers Sit to Stand Indep, no hands initially. Requires use of hands with fatigue PT-OP-H Neuro Start: 01/05/19 16:21 Freq: Status: Active Protocol: Document 06/06/19 08:59 SAK (Rec: 06/06/19 13:50 SAK [id number]) Sensation Evaluation Gross Sensation Gross Sensation WNL PT-OP-J Posture/Palpation/Skin Start: 01/05/19 16:21 Freq: Status: Active Protocol: Document 01/06/19 12:57 SAK (Rec: 01/09/19 12:55 SAK [id number]) Skin Assessment Other Assessments Skin Assessment Comments intact, no edema or brusing evident PT-OP-K Range of Motion Start: 01/05/19 16:21 Freq: Status: Active Protocol: Document 01/06/19 12:57 SAK (Rec: 01/09/19 12:55 SAK [id number]) Cervical Spine Range of Motion Cervical Spine Active Comments WNL Lumbar Spine Range of Motion Lumbar Spine Active Comments WNL Shoulder Goniometric Range of Motion Shoulder left Shoulder ROM WFL Yes right Shoulder ROM WFL Yes Elbow/Forearm Range of Motion Elbow/Forearm girma Elbow/Forearm ROM WFL Yes Wrist Goniometric Range of Motion Wrist girma Wrist ROM WFL Yes Hip Goniometric Range of Motion Hip girma Hip ROM WFL Yes Knee Goniometric Range of Motion Knee girma Knee ROM WFL Yes Ankle and Foot Goniometric Range of Motion Ankle and Foot girma Ankle/Foot ROM WFL Yes PT-OP-M Strength Start: 01/05/19 16:21 Freq: Status: Active Protocol: Document 07/20/19 10:10 SAK (Rec: 07/20/19 10:13 SAK [id number]) Hip Strength Hip Manual Muscle Testing Left Flexion (L2) 4- Good- Right Flexion (L2) 4- Good- Knee Strength Knee Manual Muscle Testing Left Flexion (S2) 4 Good Extension (L3) 4 Good Right Flexion (S2) 4 Good Extension (L3) 4 Good Ankle/Foot Strength Ankle and Foot Manual Muscle Testing Left Dorsiflexion (L4) 4 Good Right Dorsiflexion (L4) 4 Good PT-OP-Q Treatments Start: 01/05/19 16:21 Freq: Status: Active Protocol: Document 08/08/19 09:51 SP (Rec: 08/08/19 10:35 SP [id number]) Cardio Equipment Recumbent Elliptical (Biodex) Duration (Minutes) 8 Resistance 1 Seat Position 7 Therapeutic Exercises Sitting Exercises hip abd Resistance TB #1 Reps/Minutes x8 hip add Sitting Exercise Name ball squeeze Reps/Minutes 10 (2 sec hold each) LAQ Reps/Minutes 5x ea heel/toe raise Reps/Minutes 10x ea Standing Exercises Sit to Stand Standing Exercise Name arms across chest Equipment Used chair Reps/Minutes x [address] hip Standing Exercise Name hip abd, ext, march Neuro Re-Education Treatment Balance Activities walking balance Details f/b/ high knee Surface floor Equipment no AD Reps/Duration 2 laps each direction Comments cued slow pacing PT-OP-S Aquatic Treatment Start: 01/05/19 16:21 Freq: Status: Active Protocol: Document 04/18/19 11:00 LJ (Rec: 04/18/19 16:09 LJ [id number]) Aquatics Treatment Pool Entry/Exit Pool Entry/Exit Method Stairs Assistance Standby Assistance,Verbal Cues Water Walking Monster Walk Water Level Chest Level Level of Assistance Verbal Cues Comments slow pace Marching Water Level Chest Level Level of Assistance Verbal Cues Comments slow pace Sideways Water Level Chest Level Level of Assistance Standby Assistance,Verbal Cues Comments slow pace Forwards Water Level Chest Level Level of Assistance Standby Assistance,Verbal Cues Comments slow pace Lower Extremity Exercises hip flex/ext, ab/ad, circles Body Position Standing Water Level Waist Level Reps/Duration 10 ea Comments gentle side to side weight-shifts Body Position Standing Water Level Chest Level Reps/Duration 10x squats Body Position Standing Water Level Chest Level Reps/Duration 10x Lower Extremity Stretches hip flexor Body Position Standing Water Level Waist Level Equipment Small Noodle Reps/Duration 2x30 Comments at wall quads Body Position Standing Water Level Waist Level Equipment Small Noodle Comments at wall HC Body Position Standing Water Level Waist Level Equipment Small Noodle Reps/Duration 2x30 Comments toes on wall HS Body Position Standing Water Level Waist Level Reps/Duration 2x30 Upper Extremity Exercises flex/ext, ab/ad, horiz ab/ad Body Position Sitting Water Level Neck Level Reps/Duration 10 each direction Comments braced at wall, focus on core stability Spinal Exercises stretch cord resisted walking Body Position Standing Water Level Chest Level Reps/Duration 2 steps 4x each direction Comments stabilizing with mvmt stretch cord rotations Body Position Standing Water Level Chest Level Reps/Duration 8 each direction PT-OP-T Assessment and Plan Start: 01/05/19 16:21 Freq: Status: Active Protocol: Document 08/08/19 09:51 SP (Rec: 08/08/19 10:35 SP [id number]) Physical Therapy Assessment Goals Three Impairment strength Penitentiary Goal (LTG) Establish well-tolerated aquatic exercise program and HEP focused on strengthening and balance for patient with patient demonstrated independence and compliance and demonstrate good knowledge of how to modify depending on symptoms. 06/22/19: goal progress Two Impairment balance Short Term Goal (STG) Complete objective balance testing for baseline measurements 06/06/19: goal progress 06/22/19: further testing reveals good balance, cane required more for fatigue STG Duration 6 wks Penitentiary Goal (LTG) Patient to be safe and independent with gait on level and uneven surfaces with least restrictive device, and have no reported falls. Will be compliant with recommendations for home safety. 06/22/19: patient currently using single point cane for gait. Feel she would benefit from use of 4WW in the community to allow her to rest when needed, but she is resistant to this at this time . 06/06/19: good goal progress LTG Duration 12 wks One Impairment activity tolerance Short Term Goal (STG) instruct in energy conservation and pacing 06/06/19: goal met STG Duration MET Brim Shaper Goal (LTG) Patient to demonstrate good understanding and compliance with energy conservation and pacing of activities. 06/22/19: good goal progress LTG Duration 09/23/19 Assessment Summary Assessment Pt tolerated increaes 8 min with same# 1 resistance, 11 min at home but performs exercises different time in day for recovery. Pt toleranted exercises today to assimulate possible class performance, tolerated walking different balance in mirror with no AD, very little wt shift off balance today. Reps of ex increase 8-10 on some. Physical Therapy Plan Frequency and Duration Frequency of Treatment 1x/Week Duration of Treatment 12 wks Plan of Care Start Date 06/22/18 Plan of Care End Date 09/23/19 Therapeutic Interventions Therapeutic Interventions Aquatic Therapy,Balance Training,Coordination Training ,Gait Training,Home Exercise Program,Neuromuscular Re- education,Self-Care/Home Management,Therapeutic Activities,Therapeutic Exercises Next Visit Focus/Plan Next Note Type Treatment Note Next Visit Plan ASsess response to increase in exercise last session, and current activity tolerance at home. Continue gentle progression of ther ex as patient tolerates with emphasis on pacing, modification alternatives, deep breathing.
--- NOTE | 2019-08-15 13:08 | PT.OTN ---
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) Muscle weakness (generalized) (08/15/19) Physical Therapy Treatment Note PT-OP-A Visit Information Start: 01/05/19 16:21 Freq: Status: Active Protocol: Document 08/15/19 09:01 SAK (Rec: 08/15/19 09:49 SAK [id number]) Out-Patient Physical Therapy Visit Information Visit Information Visit Type Treatment Note Visit Start Time 09:00 Visit Stop Time 09:45 Total Visit Minutes 45 Visit Number 19 Number of METERS SUPERINTENDENT Visits 0 PT-OP-B Current Condition Start: 01/05/19 16:21 Freq: Status: Active Protocol: Document 01/06/19 12:57 SAK (Rec: 01/06/19 13:25 SAK [id number]) Current Condition History of Current Condition Onset Date 4 yrs Current Complaints LE weakness and achiness, SOB History of Current Condition Gradual progressive weakness, started using cane May 2017. Has been seeing specialists and having tests with diagnosis of possible indeterminate type of muscular dystrophy. Also reports exercise intolerance with SOB, increasing fatigue, need for much slower pace. The more I do the worse I feel . Hoping to see if she can establish an exercise program that will not exhaust her. Requesting possible aquatic therapy. Difficulty getting out of chairs, off floor. 2018 8-10 falls, this year being more careful, last fall was in July. Has not suffererd injury. Started Prednisone yesterday 15 mg. Prior experience with Prednisone caused migraine; has headache but not migraine. LE weakness symmetrical, no numbness or tingling. With falls, reports usually [address] Frequently uses cane or walker. No dizziness. BP well-managed. Uses electric tricycle. Has recumbant exercise bike, reports not using, has tendency to overdo. 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 Stool in shower, can dress self. Trip to [place] next week, has anxiety about being able to tolerate. Prior Treatments and Tests muscle biopsy negative [facility] neurologist States MS and ALS ruled out as diagnoses. Future Testing and Treatments Planned Spoke today with Claudy Sotelo, doctor inclusion body myositis specialist at [facility] in [place]; has February 16 appointment Patient reports a second muscle biopsy recommended by [facility] physician Treatment Goals Patient/Caregiver Goals Improve strength/maintain, establish exercise program. Hoping for aquatic therapy. Had difficulty getting in/out of pool and felt uncoordinated last time in pool. Knows how to swim, but body has changed and it felt very difficult. Prior Functional Status Baseline Function- ADL's Independent Baseline Function- Mobility Independent Baseline Function- Gait independent without device Baseline Function- Work/School retired Baseline Function- Recreation/Hobbies walk, bike, hike Current Functional Impairments (Reported) Functional Limitations- ADL's slow, fatiguing Functional Limitations- Mobility/Gait very limited with c/o SOB, frequent rest breaks Functional Limitations- Work/School retired Functional Limitations- Recreation/ unable except has electric Hobbies tricycle PT-OP-C Subjective Start: 01/05/19 16:21 Freq: Status: Active Protocol: Document 08/15/19 09:01 SAK (Rec: 08/15/19 09:49 SAK [id number]) OP-PT Subjective Patient Comments Patient Comments Reports has a cold. Continues to feel a little better. Legs ache and feel weak, feels she lurches without use of cane. PT-OP-D Balance Start: 01/05/19 16:21 Freq: Status: Active Protocol: Document 06/06/19 08:59 SAK (Rec: 06/06/19 13:50 [facility] [id number]) Balance Tests Sheth Balance Test Sheth Balance Test Score 53 Sheth Impairment Rating 1 to 19% Impaired (Score 45-55 ) PT-OP-E Functional Tests Start: 01/05/19 16:21 Freq: Status: Active Protocol: Document 07/20/19 09:01 SAK (Rec: 07/20/19 10:00 SAK [id number]) Functional Tests 6 Minute Walk Test Comments not done due to fatigue PT-OP-G Mobility & Gait Start: 01/05/19 16:21 Freq: Status: Active Protocol: Document 07/04/19 11:54 SP (Rec: 07/04/19 11:56 SP [id number]) OP Mobility Evaluation Bed Mobility Rolling I Supine to and from Sit I Transfers Sit to Stand Indep, no hands initially. Requires use of hands with fatigue PT-OP-H Neuro Start: 01/05/19 16:21 Freq: Status: Active Protocol: Document 06/06/19 08:59 SAK (Rec: 06/06/19 13:50 SAK [id number]) Sensation Evaluation Gross Sensation Gross Sensation WNL PT-OP-J Posture/Palpation/Skin Start: 01/05/19 16:21 Freq: Status: Active Protocol: Document 01/06/19 12:57 SAK (Rec: 01/09/19 12:55 SAK [id number]) Skin Assessment Other Assessments Skin Assessment Comments intact, no edema or brusing evident PT-OP-K Range of Motion Start: 01/05/19 16:21 Freq: Status: Active Protocol: Document 01/06/19 12:57 SAK (Rec: 01/09/19 12:55 [facility] [id number]) Cervical Spine Range of Motion Cervical Spine Active Comments WNL Lumbar Spine Range of Motion Lumbar Spine Active Comments WNL Shoulder Goniometric Range of Motion Shoulder left Shoulder ROM WFL Yes right Shoulder ROM WFL Yes Elbow/Forearm Range of Motion Elbow/Forearm girma Elbow/Forearm ROM WFL Yes Wrist Goniometric Range of Motion Wrist girma Wrist ROM WFL Yes Hip Goniometric Range of Motion Hip girma Hip ROM WFL Yes Knee Goniometric Range of Motion Knee girma Knee ROM WFL Yes Ankle and Foot Goniometric Range of Motion Ankle and Foot girma Ankle/Foot ROM WFL Yes PT-OP-M Strength Start: 01/05/19 16:21 Freq: Status: Active Protocol: Document 07/20/19 10:10 [facility] (Rec: 07/20/19 10:13 [facility] [id number]) Hip Strength Hip Manual Muscle Testing Left Flexion (L2) 4- Good- Right Flexion (L2) 4- Good- Knee Strength Knee Manual Muscle Testing Left Flexion (S2) 4 Good Extension (L3) 4 Good Right Flexion (S2) 4 Good Extension (L3) 4 Good Ankle/Foot Strength Ankle and Foot Manual Muscle Testing Left Dorsiflexion (L4) 4 Good Right Dorsiflexion (L4) 4 Good PT-OP-Q Treatments Start: 01/05/19 16:21 Freq: Status: Active Protocol: Document 08/15/19 09:01 SAK (Rec: 08/15/19 09:49 SAK [id number]) Therapeutic Exercises Sitting Exercises seated crunch Reps/Minutes 5x Standing Exercises march Reps/Minutes 10x Comments moving march in parallel bars Therapeutic Activity Therapeutic Activity balance and gait testing Comments 2 min walk 303 ft with single point cane Neuro Re-Education Treatment Balance Activities Tiltboard stand Details balance EO with head nods and turns Equipment tiltboard Reps/Duration 4' walking balance Details f/b/ high knee Surface floor Equipment no AD, in parallel bars Reps/Duration 2 laps each direction Comments cued slow pacing PT-OP-S Aquatic Treatment Start: 01/05/19 16:21 Freq: Status: Active Protocol: Document 04/18/19 11:00 LJ (Rec: 04/18/19 16:09 LJ [id number]) Aquatics Treatment Pool Entry/Exit Pool Entry/Exit Method Stairs Assistance Standby Assistance,Verbal Cues Water Walking Monster Walk Water Level Chest Level Level of Assistance Verbal Cues Comments slow pace Marching Water Level Chest Level Level of Assistance Verbal Cues Comments slow pace Sideways Water Level Chest Level Level of Assistance Standby Assistance,Verbal Cues Comments slow pace Forwards Water Level Chest Level Level of Assistance Standby Assistance,Verbal Cues Comments slow pace Lower Extremity Exercises hip flex/ext, ab/ad, circles Body Position Standing Water Level Waist Level Reps/Duration 10 ea Comments gentle side to side weight-shifts Body Position Standing Water Level Chest Level Reps/Duration 10x squats Body Position Standing Water Level Chest Level Reps/Duration 10x Lower Extremity Stretches hip flexor Body Position Standing Water Level Waist Level Equipment Small Noodle Reps/Duration 2x30 Comments at wall quads Body Position Standing Water Level Waist Level Equipment Small Noodle Comments at wall HC Body Position Standing Water Level Waist Level Equipment Small Noodle Reps/Duration 2x30 Comments toes on wall HS Body Position Standing Water Level Waist Level Reps/Duration 2x30 Upper Extremity Exercises flex/ext, ab/ad, horiz ab/ad Body Position Sitting Water Level Neck Level Reps/Duration 10 each direction Comments braced at wall, focus on core stability Spinal Exercises stretch cord resisted walking Body Position Standing Water Level Chest Level Reps/Duration 2 steps 4x each direction Comments stabilizing with mvmt stretch cord rotations Body Position Standing Water Level Chest Level Reps/Duration 8 each direction PT-OP-T Assessment and Plan Start: 01/05/19 16:21 Freq: Status: Active Protocol: Document 08/15/19 09:01 SAK (Rec: 08/15/19 09:49 SAK [id number]) Physical Therapy Assessment Goals Three Impairment strength Clinical Training Specialist Goal (LTG) Establish well-tolerated aquatic exercise program and HEP focused on strengthening and balance for patient with patient demonstrated independence and compliance and demonstrate good knowledge of how to modify depending on symptoms. 06/22/19: goal progress Two Impairment balance Short Term Goal (STG) Complete objective balance testing for baseline measurements 06/06/19: goal progress 06/22/19: further testing reveals good balance, cane required more for fatigue STG Duration 6 wks Clinical Training Specialist Goal (LTG) Patient to be safe and independent with gait on level and uneven surfaces with least restrictive device, and have no reported falls. Will be compliant with recommendations for home safety. 06/22/19: patient currently using single point cane for gait. Feel she would benefit from use of 4WW in the community to allow her to rest when needed, but she is resistant to this at this time . 06/06/19: good goal progress LTG Duration 12 wks One Impairment activity tolerance Short Term Goal (STG) instruct in energy conservation and pacing 06/06/19: goal met STG Duration MET Custodial Goal (LTG) Patient to demonstrate good understanding and compliance with energy conservation and pacing of activities. 06/22/19: good goal progress LTG Duration 09/23/19 Assessment Summary Assessment 2 min walk test 303'. Reporting shorter recovery time required when becomes fatigued. Difficulty with balance with head nods and turns, worst with looking up. Physical Therapy Plan Frequency and Duration Frequency of Treatment 1x/Week Duration of Treatment 12 wks Plan of Care Start Date 06/22/18 Plan of Care End Date 09/23/19 Therapeutic Interventions Therapeutic Interventions Aquatic Therapy,Balance Training,Coordination Training ,Gait Training,Home Exercise Program,Neuromuscular Re- education,Self-Care/Home Management,Therapeutic Activities,Therapeutic Exercises Next Visit Focus/Plan Next Note Type Treatment Note Next Visit Plan Further balance work with head turns, continue gentle strengthening
--- NOTE | 2019-11-16 15:58 | PT.OTRE ---
Current Diagnoses Spasmodic torticollis (11/16/19) Myotonic muscular dystrophy (11/16/19) Muscle weakness (generalized) (11/16/19) Past Medical History Activity intolerance (Acute) Cervical dystonia (Chronic 1986) Chicken pox (Resolved 1956) Cholecystectomy planned (Resolved) Colon polyps (Resolved) CTS (carpal tunnel syndrome) (Resolved 1986) Denervation of muscle (Resolved) Depression (Chronic 1974) Dyspnea on exertion (Acute) Fatigue (Acute) Hyperlipidemia (Chronic) Hypertension (Chronic) Itch of skin (Acute) Measles (Resolved 1957) Mumps (Resolved 1958) Peripheral neuropathy (Chronic 2012) Sjogren's syndrome (Chronic 2012) Skin cancer (Resolved 2015) Sleep apnea (Chronic 2009) Small fiber polyneuropathy (Acute) SOB (shortness of breath) (Chronic 2010) Status post DANILO-BSO (Resolved) Surgical History (Last Reviewed 09/16/19 @ 10:00 by JENAE Mark) Anesthesia complication (Resolved) History of carpal tunnel repair (Resolved 1989) History of cervical spinal surgery (Resolved 07/2008) History of laparoscopic cholecystectomy (Resolved 2006) S/P DANILO-BSO (total abdominal hysterectomy and bilateral salpingo-oophorectomy) (Resolved 01/2007) Status post hernia repair (Resolved 2013) Status post hernia repair (Resolved 2007) Visit Care Team Role Provider Type JENAE Mark Family Provider Advanced Adult Basic Studies Teacher Primary Care Provider Specialty: Family Practice Address: [address] [place] [address], [id number] Email: [email or web address] Julian Meza MD Attending Provider Non-Staff Specialty: Neurology Address: [address] [place] [address], [phone] Email: Physical Therapy Re-Evaluation PT-OP-A Visit Information Start: 01/05/19 16:21 Freq: Status: Active Protocol: Document 11/16/19 12:44 CATARINO (Rec: 11/16/19 15:58 SAK [id number]) Out-Patient Physical Therapy Visit Information Visit Information Visit Type Re-Evaluation Visit Start Time 12:45 Visit Stop Time 13:30 Total Visit Minutes 45 Visit Number 20 Number of REVENUE CYCLE SPECIALIST Visits 0 PT-OP-B Current Condition Start: 01/05/19 16:21 Freq: Status: Active Protocol: Document 01/06/19 12:57 CATARINO (Rec: 01/06/19 13:25 SAK [id number]) Current Condition History of Current Condition Onset Date 4 yrs Current Complaints LE weakness and achiness, SOB History of Current Condition Gradual progressive weakness, started using cane May 2017. Has been seeing specialists and having tests with diagnosis of possible indeterminate type of muscular dystrophy. Also reports exercise intolerance with SOB, increasing fatigue, need for much slower pace. The more I do the worse I feel . Hoping to see if she can establish an exercise program that will not exhaust her. Requesting possible aquatic therapy. Difficulty getting out of chairs, off floor. 2018 8-10 falls, this year being more careful, last fall was in July. Has not suffererd injury. Started Prednisone yesterday 15 mg. Prior experience with Prednisone caused migraine; has headache but not migraine. LE weakness symmetrical, no numbness or tingling. With falls, reports usually [address] Frequently uses cane or walker. No dizziness. BP well-managed. Uses electric tricycle. Has recumbant exercise bike, reports not using, has tendency to overdo. 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 Stool in shower, can dress self. Trip to [place] next week, has anxiety about being able to tolerate. Prior Treatments and Tests muscle biopsy negative [facility] neurologist States MS and ALS ruled out as diagnoses. Future Testing and Treatments Planned Spoke today with Claudy Sotelo, doctor inclusion body myositis specialist at [facility] in [place]; has February 16 appointment Patient reports a second muscle biopsy recommended by [facility] physician Treatment Goals Patient/Caregiver Goals Improve strength/maintain, establish exercise program. Hoping for aquatic therapy. Had difficulty getting in/out of pool and felt uncoordinated last time in pool. Knows how to swim, but body has changed and it felt very difficult. Prior Functional Status Baseline Function- ADL's Independent Baseline Function- Mobility Independent Baseline Function- Gait independent without device Baseline Function- Work/School retired Baseline Function- Recreation/Hobbies walk, bike, hike Current Functional Impairments (Reported) Functional Limitations- ADL's slow, fatiguing Functional Limitations- Mobility/Gait very limited with c/o SOB, frequent rest breaks Functional Limitations- Work/School retired Functional Limitations- Recreation/ unable except has electric Hobbies tricycle PT-OP-C Subjective Start: 01/05/19 16:21 Freq: Status: Active Protocol: Document 11/16/19 12:44 SAK (Rec: 11/16/19 13:30 [facility] [id number]) OP-PT Subjective Patient Comments Patient Comments Moved 2 weeks ago to 1 level accessable home, was very stressful time. Feels more independent but also more disabled. Now using 4- wheeled walker primarily. Has lost 14 lbs. Energy level very low. Got new recumbant bicycle which is a step- through for easier access. Legs feel weaker. New house has ramp, bathroom counter is wheelchair height. Can't stand or walk very far. Has had more tingling sensations in LE's, takes Alleve, sensations worst at night. Feels she is walking on something very soft due to numbness in her feet. Scheduled for IVIG in December 19. Considering accupuncture for the small fiber neuropathy possibility. Wants routine for using ex bike, and for exercises for her legs and core, states she needs guidance with her ther ex. PT-OP-D Balance Start: 01/05/19 16:21 Freq: Status: Active Protocol: Document 06/06/19 08:59 SAK (Rec: 06/06/19 13:50 [facility] [id number]) Balance Tests Sheth Balance Test Sheth Balance Test Score 53 Sheth Impairment Rating 1 to 19% Impaired (Score 45-55 ) PT-OP-E Functional Tests Start: 01/05/19 16:21 Freq: Status: Active Protocol: Document 07/20/19 09:01 SAK (Rec: 07/20/19 10:00 SAK [id number]) Functional Tests 6 Minute Walk Test Comments not done due to fatigue PT-OP-G Mobility & Gait Start: 01/05/19 16:21 Freq: Status: Active Protocol: Document 07/04/19 11:54 SP (Rec: 07/04/19 11:56 SP [id number]) OP Mobility Evaluation Bed Mobility Rolling I Supine to and from Sit I Transfers Sit to Stand Indep, no hands initially. Requires use of hands with fatigue PT-OP-H Neuro Start: 01/05/19 16:21 Freq: Status: Active Protocol: Document 06/06/19 08:59 [facility] (Rec: 06/06/19 13:50 [facility] [id number]) Sensation Evaluation Gross Sensation Gross Sensation WNL PT-OP-J Posture/Palpation/Skin Start: 01/05/19 16:21 Freq: Status: Active Protocol: Document 01/06/19 12:57 [facility] (Rec: 01/09/19 12:55 [facility] [id number]) Skin Assessment Other Assessments Skin Assessment Comments intact, no edema or brusing evident PT-OP-K Range of Motion Start: 01/05/19 16:21 Freq: Status: Active Protocol: Document 01/06/19 12:57 [facility] (Rec: 01/09/19 12:55 [facility] [id number]) Cervical Spine Range of Motion Cervical Spine Active Comments WNL Lumbar Spine Range of Motion Lumbar Spine Active Comments WNL Shoulder Goniometric Range of Motion Shoulder Measured in Degrees left Shoulder ROM WFL Yes right Shoulder ROM WFL Yes Elbow/Forearm Range of Motion Elbow/Forearm Measured in Degrees girma Elbow/Forearm ROM WFL Yes Wrist Goniometric Range of Motion Wrist Measured in Degrees girma Wrist ROM WFL Yes Hip Goniometric Range of Motion Hip Measured in Degrees girma Hip ROM WFL Yes Knee Goniometric Range of Motion Knee Measured in Degrees girma Knee ROM WFL Yes Ankle and Foot Goniometric Range of Motion Ankle and Foot Measured in Degrees girma Ankle/Foot ROM WFL Yes PT-OP-M Strength Start: 01/05/19 16:21 Freq: Status: Active Protocol: Document 11/16/19 12:44 [facility] (Rec: 11/16/19 13:30 [facility] [id number]) Hip Strength Hip Manual Muscle Testing Left Flexion (L2) 4- Good- Extension (S1) 3- Fair- Abduction 3- Fair- Adduction 4- Good- Right Flexion (L2) 4- Good- Extension (S1) 4- Good- Abduction 4- Good- Adduction 4- Good- Comments not tested due to fatigue Knee Strength Knee Manual Muscle Testing Left Flexion (S2) 4- Good- Extension (L3) 4- Good- Right Flexion (S2) 4 Good Extension (L3) 4 Good Ankle/Foot Strength Ankle and Foot Manual Muscle Testing Left Dorsiflexion (L4) 4- Good- Plantarflexion (S1) 3+ Fair+ Right Dorsiflexion (L4) 4 Good Plantarflexion (S1) 4 Good PT-OP-Q Treatments Start: 01/05/19 16:21 Freq: Status: Active Protocol: Document 11/16/19 12:44 [facility] (Rec: 11/16/19 15:58 [facility] [id number]) Neuro Re-Education Treatment Balance Activities tandem stand Surface level Equipment parallel bars Reps/Duration needs min to mod UE support SLS Surface level Equipment rail for contact as needed Reps/Duration 16 sec R, 4 sec L Self-Care/Home Management Treatment Education Patient Education Home Exercise Program Other Education updated written HEP handout, instructions for use of exercise bike PT-OP-T Assessment and Plan Start: 01/05/19 16:21 Freq: Status: Active Protocol: Document 11/16/19 12:44 [facility] (Rec: 11/16/19 13:30 [facility] [id number]) Physical Therapy Assessment Goals Three Impairment strength It Support Specialist Goal (LTG) Establish well-tolerated aquatic exercise program and HEP focused on strengthening and balance for patient with patient demonstrated independence and compliance and demonstrate good knowledge of how to modify depending on symptoms. 06/22/19: goal progress 08/16/19: decline in LE strength left side, will need modification. Patient lost written HEP during move, and stress of move didn't allow her to exercise. LTG Duration 01/15/20 Two Impairment balance Short Term Goal (STG) Complete objective balance testing for baseline measurements 06/06/19: goal progress 06/22/19: further testing reveals good balance, cane required more for fatigue 11/16/19: decline in balance noted with SLS and tandem stand today, denies any falls. Custodial Goal (LTG) Patient to be safe and independent with gait on level and uneven surfaces with least restrictive device, and have no reported falls. Will be compliant with recommendations for home safety. 06/22/19: patient currently using single point cane for gait. Feel she would benefit from use of 4WW in the community to allow her to rest when needed, but she is resistant to this at this time . 06/06/19: good goal progress 11/16/19: patient now using 4WW in community as recommended previously due to decline in strength and activity tolerance. Decreased foot clearance with gait noted today which increases fall risk. Will need addition and modification to HEP. LTG Duration 01/15/20 One Impairment activity tolerance Short Term Goal (STG) instruct in energy conservation and pacing 06/06/19: goal met STG Duration MET It Support Specialist Goal (LTG) Patient to demonstrate good understanding and compliance with energy conservation and pacing of activities. 06/22/19: good goal progress 11/16/19: due to decline in strength and function, needs further education and modification LTG Duration 01/15/20 Assessment Summary Assessment 2 min walk test decreased at 232' with need for 4WW vs cane previously. Times of day when feels better less and shorter. Patient is demonstrating increased weakness left LE, decreased balance, need for use of 4WW. Would benefit from further skilled PT to address above goals. Patient to see her neurologist next month. Physical Therapy Plan Frequency and Duration Frequency of Treatment 1x/Week Duration of Treatment 12 wks Plan of Care Start Date 11/16/19 Plan of Care End Date 01/15/20 Therapeutic Interventions Therapeutic Interventions Aquatic Therapy,Balance Training,Coordination Training ,Gait Training,Home Exercise Program,Neuromuscular Re- education,Self-Care/Home Management,Therapeutic Activities,Therapeutic Exercises Next Visit Focus/Plan Next Note Type Treatment Note Next Visit Plan Ther ex for gentle strengthening and balance, modification of HEP as indicated.
--- NOTE | 2019-11-16 15:58 | PT.OPPOC ---
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) Muscle weakness (generalized) (11/16/19) Visit Care Team Role Provider Type JENAE Mark Family Provider Advanced Associate Professor Of Violin Primary Care Provider Specialty: Family Practice Address: [address] [place] [address], [address] Email: [email or web address] Julian Meza MD Attending Provider Non-Staff Specialty: Neurology Address: [address] [place], [address] Email: Plan Of Care PT-OP-T Assessment and Plan Start: 01/05/19 16:21 Freq: Status: Active Protocol: Document 11/16/19 12:44 [facility] (Rec: 11/16/19 13:30 [facility] [id number]) Physical Therapy Assessment Goals Three Impairment strength Collector Goal (LTG) Establish well-tolerated aquatic exercise program and HEP focused on strengthening and balance for patient with patient demonstrated independence and compliance and demonstrate good knowledge of how to modify depending on symptoms. 06/22/19: goal progress 08/16/19: decline in LE strength left side, will need modification. Patient lost written HEP during move, and stress of move didn't allow her to exercise. LTG Duration 01/15/20 Two Impairment balance Short Term Goal (STG) Complete objective balance testing for baseline measurements 06/06/19: goal progress 06/22/19: further testing reveals good balance, cane required more for fatigue 11/16/19: decline in balance noted with SLS and tandem stand today, denies any falls. Mcfp Goal (LTG) Patient to be safe and independent with gait on level and uneven surfaces with least restrictive device, and have no reported falls. Will be compliant with recommendations for home safety. 06/22/19: patient currently using single point cane for gait. Feel she would benefit from use of 4WW in the community to allow her to rest when needed, but she is resistant to this at this time . 06/06/19: good goal progress 11/16/19: patient now using 4WW in community as recommended previously due to decline in strength and activity tolerance. Decreased foot clearance with gait noted today which increases fall risk. Will need addition and modification to HEP. LTG Duration 01/15/20 One Impairment activity tolerance Short Term Goal (STG) instruct in energy conservation and pacing 06/06/19: goal met STG Duration MET Mcfp Goal (LTG) Patient to demonstrate good understanding and compliance with energy conservation and pacing of activities. 06/22/19: good goal progress 11/16/19: due to decline in strength and function, needs further education and modification LTG Duration 01/15/20 Assessment Summary Assessment 2 min walk test decreased at 232' with need for 4WW vs cane previously. Times of day when feels better less and shorter. Patient is demonstrating increased weakness left LE, decreased balance, need for use of 4WW. Would benefit from further skilled PT to address above goals. Patient to see her neurologist next month. Physical Therapy Plan Frequency and Duration Frequency of Treatment 1x/Week Duration of Treatment 12 wks Plan of Care Start Date 11/16/19 Plan of Care End Date 01/15/20 Therapeutic Interventions Therapeutic Interventions Aquatic Therapy,Balance Training,Coordination Training ,Gait Training,Home Exercise Program,Neuromuscular Re- education,Self-Care/Home Management,Therapeutic Activities,Therapeutic Exercises Next Visit Focus/Plan Next Note Type Treatment Note Next Visit Plan Ther ex for gentle strengthening and balance, modification of HEP as indicated. Plan of Care Dates Plan of Care Start Date 11/16/19 Plan of Care End Date 01/15/20 Electronically Signed by: Sydnie Clark, PT 11/16/19 [id number] Please Sign and Return: I have reviewed this Plan of Care and certify that the skilled therapy services above are required to meet the patient?s needs. Physician Signature Date Printed Name and Credentials Clinical Instructor Signature Printed Name and Credentials
--- NOTE | 2019-11-28 16:25 | PT.OTN ---
Current Diagnoses Spasmodic torticollis (11/28/19) Myotonic muscular dystrophy (11/28/19) Muscle weakness (generalized) (11/28/19) Physical Therapy Treatment Note PT-OP-A Visit Information Start: 01/05/19 16:21 Freq: Status: Active Protocol: Document 11/28/19 15:19 SAK (Rec: 11/28/19 16:03 SAK [id number]) Out-Patient Physical Therapy Visit Information Visit Information Visit Type Treatment Note Visit Start Time 15:15 Visit Stop Time 16:00 Total Visit Minutes 45 Visit Number 21 PT-OP-B Current Condition Start: 01/05/19 16:21 Freq: Status: Active Protocol: Document 01/06/19 12:57 SAK (Rec: 01/06/19 13:25 SAK [id number]) Current Condition History of Current Condition Onset Date 4 yrs Current Complaints LE weakness and achiness, SOB History of Current Condition Gradual progressive weakness, started using cane May 2017. Has been seeing specialists and having tests with diagnosis of possible indeterminate type of muscular dystrophy. Also reports exercise intolerance with SOB, increasing fatigue, need for much slower pace. The more I do the worse I feel . Hoping to see if she can establish an exercise program that will not exhaust her. Requesting possible aquatic therapy. Difficulty getting out of chairs, off floor. 2018 8-10 falls, this year being more careful, last fall was in July. Has not suffererd injury. Started Prednisone yesterday 15 mg. Prior experience with Prednisone caused migraine; has headache but not migraine. LE weakness symmetrical, no numbness or tingling. With falls, reports usually [address] Frequently uses cane or walker. No dizziness. BP well-managed. Uses electric tricycle. Has recumbant exercise bike, reports not using, has tendency to overdo. Also weakness in UE's; hard to wash hair, can't hold hair spring cutter, can only get 1 plate out of cupboard at a time, doesn't carry groceries. Stool in shower, can dress self. Trip to [place] next week, has anxiety about being able to tolerate. Prior Treatments and Tests muscle biopsy negative [facility] neurologist States MS and ALS ruled out as diagnoses. Future Testing and Treatments Planned Spoke today with Claudy Sotelo, doctor inclusion body myositis specialist at [facility] in [place]; has February 16 appointment Patient reports a second muscle biopsy recommended by [facility] physician Treatment Goals Patient/Caregiver Goals Improve strength/maintain, establish exercise program. Hoping for aquatic therapy. Had difficulty getting in/out of pool and felt uncoordinated last time in pool. Knows how to swim, but body has changed and it felt very difficult. Prior Functional Status Baseline Function- ADL's Independent Baseline Function- Mobility Independent Baseline Function- Gait independent without device Baseline Function- Work/School retired Baseline Function- Recreation/Hobbies walk, bike, hike Current Functional Impairments (Reported) Functional Limitations- ADL's slow, fatiguing Functional Limitations- Mobility/Gait very limited with c/o SOB, frequent rest breaks Functional Limitations- Work/School retired Functional Limitations- Recreation/ unable except has electric Hobbies tricycle PT-OP-C Subjective Start: 01/05/19 16:21 Freq: Status: Active Protocol: Document 11/28/19 15:19 SAK (Rec: 11/28/19 16:03 SAK [id number]) OP-PT Subjective Patient Comments Patient Comments Reports she had a pedicure recently and noticed not able to feel as well on left LE with massage. PT-OP-D Balance Start: 01/05/19 16:21 Freq: Status: Active Protocol: Document 06/06/19 08:59 SAK (Rec: 06/06/19 13:50 [facility] [id number]) Balance Tests Sheth Balance Test Sheth Balance Test Score 53 Sheth Impairment Rating 1 to 19% Impaired (Score 45-55 ) PT-OP-E Functional Tests Start: 01/05/19 16:21 Freq: Status: Active Protocol: Document 07/20/19 09:01 SAK (Rec: 07/20/19 10:00 SAK [id number]) Functional Tests 6 Minute Walk Test Comments not done due to fatigue PT-OP-G Mobility & Gait Start: 01/05/19 16:21 Freq: Status: Active Protocol: Document 07/04/19 11:54 SP (Rec: 07/04/19 11:56 SP [id number]) OP Mobility Evaluation Bed Mobility Rolling I Supine to and from Sit I Transfers Sit to Stand Indep, no hands initially. Requires use of hands with fatigue PT-OP-H Neuro Start: 01/05/19 16:21 Freq: Status: Active Protocol: Document 06/06/19 08:59 [facility] (Rec: 06/06/19 13:50 [facility] [id number]) Sensation Evaluation Gross Sensation Gross Sensation WNL PT-OP-J Posture/Palpation/Skin Start: 01/05/19 16:21 Freq: Status: Active Protocol: Document 01/06/19 12:57 [facility] (Rec: 01/09/19 12:55 [facility] [id number]) Skin Assessment Other Assessments Skin Assessment Comments intact, no edema or brusing evident PT-OP-K Range of Motion Start: 01/05/19 16:21 Freq: Status: Active Protocol: Document 01/06/19 12:57 [facility] (Rec: 01/09/19 12:55 [facility] [id number]) Cervical Spine Range of Motion Cervical Spine Active Comments WNL Lumbar Spine Range of Motion Lumbar Spine Active Comments WNL Shoulder Goniometric Range of Motion Shoulder left Shoulder ROM WFL Yes right Shoulder ROM WFL Yes Elbow/Forearm Range of Motion Elbow/Forearm girma Elbow/Forearm ROM WFL Yes Wrist Goniometric Range of Motion Wrist girma Wrist ROM WFL Yes Hip Goniometric Range of Motion Hip girma Hip ROM WFL Yes Knee Goniometric Range of Motion Knee girma Knee ROM WFL Yes Ankle and Foot Goniometric Range of Motion Ankle and Foot girma Ankle/Foot ROM WFL Yes PT-OP-M Strength Start: 01/05/19 16:21 Freq: Status: Active Protocol: Document 11/16/19 12:44 [facility] (Rec: 11/16/19 13:30 [facility] [id number]) Hip Strength Hip Manual Muscle Testing Left Flexion (L2) 4- Good- Extension (S1) 3- Fair- Abduction 3- Fair- Adduction 4- Good- Right Flexion (L2) 4- Good- Extension (S1) 4- Good- Abduction 4- Good- Adduction 4- Good- Comments not tested due to fatigue Knee Strength Knee Manual Muscle Testing Left Flexion (S2) 4- Good- Extension (L3) 4- Good- Right Flexion (S2) 4 Good Extension (L3) 4 Good Ankle/Foot Strength Ankle and Foot Manual Muscle Testing Left Dorsiflexion (L4) 4- Good- Plantarflexion (S1) 3+ Fair+ Right Dorsiflexion (L4) 4 Good Plantarflexion (S1) 4 Good PT-OP-Q Treatments Start: 01/05/19 16:21 Freq: Status: Active Protocol: Document 11/28/19 15:19 SAK (Rec: 11/28/19 16:03 SAK [id number]) Therapeutic Exercises Supine Exercises bridging Reps/Minutes 5x Standing Exercises sidestepping Reps/Minutes 2 min march Reps/Minutes 10x Comments moving march in parallel bars heel raise, toe raise Reps/Minutes 5x ea Gait Training Gait Activity grapevine Distance/Duration 20' Comments parallel bars backwards gait Distance/Duration 12' Comments parallel bars gait Device Used 4WW Distance/Duration 75 x 1, 60'x1,50x1 Neuro Re-Education Treatment Balance Activities tandem gait Reps/Duration 20 feet tandem stand Surface level Equipment parallel bars Reps/Duration needs min to mod UE support PT-OP-S Aquatic Treatment Start: 01/05/19 16:21 Freq: Status: Active Protocol: Document 04/18/19 11:00 NATASHA (Rec: 04/18/19 16:09 LJ [id number]) Aquatics Treatment Pool Entry/Exit Pool Entry/Exit Method Stairs Assistance Standby Assistance,Verbal Cues Water Walking Monster Walk Water Level Chest Level Level of Assistance Verbal Cues Comments slow pace Marching Water Level Chest Level Level of Assistance Verbal Cues Comments slow pace Sideways Water Level Chest Level Level of Assistance Standby Assistance,Verbal Cues Comments slow pace Forwards Water Level Chest Level Level of Assistance Standby Assistance,Verbal Cues Comments slow pace Lower Extremity Exercises hip flex/ext, ab/ad, circles Body Position Standing Water Level Waist Level Reps/Duration 10 ea Comments gentle side to side weight-shifts Body Position Standing Water Level Chest Level Reps/Duration 10x squats Body Position Standing Water Level Chest Level Reps/Duration 10x Lower Extremity Stretches hip flexor Body Position Standing Water Level Waist Level Equipment Small Noodle Reps/Duration 2x30 Comments at wall quads Body Position Standing Water Level Waist Level Equipment Small Noodle Comments at wall HC Body Position Standing Water Level Waist Level Equipment Small Noodle Reps/Duration 2x30 Comments toes on wall HS Body Position Standing Water Level Waist Level Reps/Duration 2x30 Upper Extremity Exercises flex/ext, ab/ad, horiz ab/ad Body Position Sitting Water Level Neck Level Reps/Duration 10 each direction Comments braced at wall, focus on core stability Spinal Exercises stretch cord resisted walking Body Position Standing Water Level Chest Level Reps/Duration 2 steps 4x each direction Comments stabilizing with mvmt stretch cord rotations Body Position Standing Water Level Chest Level Reps/Duration 8 each direction PT-OP-T Assessment and Plan Start: 01/05/19 16:21 Freq: Status: Active Protocol: Document 11/28/19 15:19 CATARINO (Rec: 11/28/19 16:03 [facility] [id number]) Physical Therapy Assessment Goals Three Impairment strength Hanger Off Goal (LTG) Establish well-tolerated aquatic exercise program and HEP focused on strengthening and balance for patient with patient demonstrated independence and compliance and demonstrate good knowledge of how to modify depending on symptoms. 06/22/19: goal progress 08/16/19: decline in LE strength left side, will need modification. Patient lost written HEP during move, and stress of move didn't allow her to exercise. LTG Duration 01/15/20 Two Impairment balance Short Term Goal (STG) Complete objective balance testing for baseline measurements 06/06/19: goal progress 06/22/19: further testing reveals good balance, cane required more for fatigue 11/16/19: decline in balance noted with SLS and tandem stand today, denies any falls. Half-Way Goal (LTG) Patient to be safe and independent with gait on level and uneven surfaces with least restrictive device, and have no reported falls. Will be compliant with recommendations for home safety. 06/22/19: patient currently using single point cane for gait. Feel she would benefit from use of 4WW in the community to allow her to rest when needed, but she is resistant to this at this time . 06/06/19: good goal progress 11/16/19: patient now using 4WW in community as recommended previously due to decline in strength and activity tolerance. Decreased foot clearance with gait noted today which increases fall risk. Will need addition and modification to HEP. LTG Duration 01/15/20 One Impairment activity tolerance Short Term Goal (STG) instruct in energy conservation and pacing 06/06/19: goal met STG Duration MET Half-Way Goal (LTG) Patient to demonstrate good understanding and compliance with energy conservation and pacing of activities. 06/22/19: good goal progress 11/16/19: due to decline in strength and function, needs further education and modification LTG Duration 01/15/20 Assessment Summary Assessment Patient concerned she may not be able to do much today due to late in day, but overall tolerated more activities in standing today, will need to assess if too much. Sensory changes left LE. Sees neurologist 12/13/19, then new neurologist for second opinion the following week. Physical Therapy Plan Frequency and Duration Frequency of Treatment 1x/Week Duration of Treatment 12 wks Plan of Care Start Date 11/16/19 Plan of Care End Date 01/15/20 Therapeutic Interventions Therapeutic Interventions Aquatic Therapy,Balance Training,Coordination Training ,Gait Training,Home Exercise Program,Neuromuscular Re- education,Self-Care/Home Management,Therapeutic Activities,Therapeutic Exercises Next Visit Focus/Plan Next Note Type Treatment Note Next Visit Plan Evaluate response to today's treatment and modify as indicated.
--- NOTE | 2019-12-07 14:52 | PT.OTN ---
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) Muscle weakness (generalized) (12/07/19) Physical Therapy Treatment Note PT-OP-A Visit Information Start: 01/05/19 16:21 Freq: Status: Active Protocol: Document 12/07/19 13:46 SAK (Rec: 12/07/19 14:31 SAK [id number]) Out-Patient Physical Therapy Visit Information Visit Information Visit Type Treatment Note Visit Start Time 13:45 Visit Stop Time 16:00 Total Visit Minutes 45 Visit Number 22 PT-OP-B Current Condition Start: 01/05/19 16:21 Freq: Status: Active Protocol: Document 01/06/19 12:57 SAK (Rec: 01/06/19 13:25 SAK [id number]) Current Condition History of Current Condition Onset Date 4 yrs Current Complaints LE weakness and achiness, SOB History of Current Condition Gradual progressive weakness, started using cane May 2017. Has been seeing specialists and having tests with diagnosis of possible indeterminate type of muscular dystrophy. Also reports exercise intolerance with SOB, increasing fatigue, need for much slower pace. The more I do the worse I feel . Hoping to see if she can establish an exercise program that will not exhaust her. Requesting possible aquatic therapy. Difficulty getting out of chairs, off floor. 2018 8-10 falls, this year being more careful, last fall was in July. Has not suffererd injury. Started Prednisone yesterday 15 mg. Prior experience with Prednisone caused migraine; has headache but not migraine. LE weakness symmetrical, no numbness or tingling. With falls, reports usually [address] Frequently uses cane or walker. No dizziness. BP well-managed. Uses electric tricycle. Has recumbant exercise bike, reports not using, has tendency to overdo. Also weakness in UE's; hard to wash hair, can't hold social sciences chair, can only get 1 plate out of cupboard at a time, doesn't carry groceries. Stool in shower, can dress self. Trip to [place] next week, has anxiety about being able to tolerate. Prior Treatments and Tests muscle biopsy negative [facility] neurologist States MS and ALS ruled out as diagnoses. Future Testing and Treatments Planned Spoke today with Claudy Sotelo, doctor inclusion body myositis specialist at [facility] in [place]; has February 16 appointment Patient reports a second muscle biopsy recommended by [facility] physician Treatment Goals Patient/Caregiver Goals Improve strength/maintain, establish exercise program. Hoping for aquatic therapy. Had difficulty getting in/out of pool and felt uncoordinated last time in pool. Knows how to swim, but body has changed and it felt very difficult. Prior Functional Status Baseline Function- ADL's Independent Baseline Function- Mobility Independent Baseline Function- Gait independent without device Baseline Function- Work/School retired Baseline Function- Recreation/Hobbies walk, bike, hike Current Functional Impairments (Reported) Functional Limitations- ADL's slow, fatiguing Functional Limitations- Mobility/Gait very limited with c/o SOB, frequent rest breaks Functional Limitations- Work/School retired Functional Limitations- Recreation/ unable except has electric Hobbies tricycle PT-OP-C Subjective Start: 01/05/19 16:21 Freq: Status: Active Protocol: Document 12/07/19 13:46 [facility] (Rec: 12/07/19 14:31 [facility] [id number]) OP-PT Subjective Patient Comments Patient Comments Has done bike a few times, but getting more used to using her walker; 3WW in house, 4WW outside. Walking 10 min x 2 in 4WW. Done for the rest of the day after walking. Doing some of the other exercises as well everyday. IVIg in 1 1/2 weeks. Nervous about that treatment including fear of migraine due to use of Prednisone which has been a trigger. Fees stable. Has stopped taking Alleve, taking Tylenol instead. States very fatigued but didn't feel we overdid ex last session, I did recover. PT-OP-D Balance Start: 01/05/19 16:21 Freq: Status: Active Protocol: Document 06/06/19 08:59 [facility] (Rec: 06/06/19 13:50 [facility] [id number]) Balance Tests Sheth Balance Test Sheth Balance Test Score 53 Sheth Impairment Rating 1 to 19% Impaired (Score 45-55 ) PT-OP-E Functional Tests Start: 01/05/19 16:21 Freq: Status: Active Protocol: Document 07/20/19 09:01 [facility] (Rec: 07/20/19 10:00 [facility] [id number]) Functional Tests 6 Minute Walk Test Comments not done due to fatigue PT-OP-G Mobility & Gait Start: 01/05/19 16:21 Freq: Status: Active Protocol: Document 07/04/19 11:54 SP (Rec: 07/04/19 11:56 SP [id number]) OP Mobility Evaluation Bed Mobility Rolling I Supine to and from Sit I Transfers Sit to Stand Indep, no hands initially. Requires use of hands with fatigue PT-OP-H Neuro Start: 01/05/19 16:21 Freq: Status: Active Protocol: Document 06/06/19 08:59 SAK (Rec: 06/06/19 13:50 SAK [id number]) Sensation Evaluation Gross Sensation Gross Sensation WNL PT-OP-J Posture/Palpation/Skin Start: 01/05/19 16:21 Freq: Status: Active Protocol: Document 01/06/19 12:57 SAK (Rec: 01/09/19 12:55 SAK [id number]) Skin Assessment Other Assessments Skin Assessment Comments intact, no edema or brusing evident PT-OP-K Range of Motion Start: 01/05/19 16:21 Freq: Status: Active Protocol: Document 01/06/19 12:57 SAK (Rec: 01/09/19 12:55 SAK [id number]) Cervical Spine Range of Motion Cervical Spine Active Comments WNL Lumbar Spine Range of Motion Lumbar Spine Active Comments WNL Shoulder Goniometric Range of Motion Shoulder left Shoulder ROM WFL Yes right Shoulder ROM WFL Yes Elbow/Forearm Range of Motion Elbow/Forearm girma Elbow/Forearm ROM WFL Yes Wrist Goniometric Range of Motion Wrist girma Wrist ROM WFL Yes Hip Goniometric Range of Motion Hip girma Hip ROM WFL Yes Knee Goniometric Range of Motion Knee girma Knee ROM WFL Yes Ankle and Foot Goniometric Range of Motion Ankle and Foot girma Ankle/Foot ROM WFL Yes PT-OP-M Strength Start: 01/05/19 16:21 Freq: Status: Active Protocol: Document 11/16/19 12:44 SAK (Rec: 11/16/19 13:30 SAK [id number]) Hip Strength Hip Manual Muscle Testing Left Flexion (L2) 4- Good- Extension (S1) 3- Fair- Abduction 3- Fair- Adduction 4- Good- Right Flexion (L2) 4- Good- Extension (S1) 4- Good- Abduction 4- Good- Adduction 4- Good- Comments not tested due to fatigue Knee Strength Knee Manual Muscle Testing Left Flexion (S2) 4- Good- Extension (L3) 4- Good- Right Flexion (S2) 4 Good Extension (L3) 4 Good Ankle/Foot Strength Ankle and Foot Manual Muscle Testing Left Dorsiflexion (L4) 4- Good- Plantarflexion (S1) 3+ Fair+ Right Dorsiflexion (L4) 4 Good Plantarflexion (S1) 4 Good PT-OP-Q Treatments Start: 01/05/19 16:21 Freq: Status: Active Protocol: Document 12/07/19 13:46 SAK (Rec: 12/07/19 14:31 SAK [id number]) Therapeutic Exercises Standing Exercises grapevine Reps/Minutes 2x Comments parallel bars march Reps/Minutes 10x Comments moving march in parallel bars Gait Training Gait Activity stairs Device Used bilateral railings Level of Assistance SBA Surface 4, 6 grapevine Distance/Duration 20' Comments parallel bars backwards gait Distance/Duration 12' Comments parallel bars gait Device Used 4WW Distance/Duration 100'x 1 Treatment Focus activity tolerance, stability, left LE motor control Neuro Re-Education Treatment Balance Activities tandem gait Reps/Duration 20 feet tandem stand Surface level Equipment parallel bars Reps/Duration needs min to mod UE support PT-OP-S Aquatic Treatment Start: 01/05/19 16:21 Freq: Status: Active Protocol: Document 04/18/19 11:00 NATASHA (Rec: 04/18/19 16:09 LJ [id number]) Aquatics Treatment Pool Entry/Exit Pool Entry/Exit Method Stairs Assistance Standby Assistance,Verbal Cues Water Walking Monster Walk Water Level Chest Level Level of Assistance Verbal Cues Comments slow pace Marching Water Level Chest Level Level of Assistance Verbal Cues Comments slow pace Sideways Water Level Chest Level Level of Assistance Standby Assistance,Verbal Cues Comments slow pace Forwards Water Level Chest Level Level of Assistance Standby Assistance,Verbal Cues Comments slow pace Lower Extremity Exercises hip flex/ext, ab/ad, circles Body Position Standing Water Level Waist Level Reps/Duration 10 ea Comments gentle side to side weight-shifts Body Position Standing Water Level Chest Level Reps/Duration 10x squats Body Position Standing Water Level Chest Level Reps/Duration 10x Lower Extremity Stretches hip flexor Body Position Standing Water Level Waist Level Equipment Small Noodle Reps/Duration 2x30 Comments at wall quads Body Position Standing Water Level Waist Level Equipment Small Noodle Comments at wall HC Body Position Standing Water Level Waist Level Equipment Small Noodle Reps/Duration 2x30 Comments toes on wall HS Body Position Standing Water Level Waist Level Reps/Duration 2x30 Upper Extremity Exercises flex/ext, ab/ad, horiz ab/ad Body Position Sitting Water Level Neck Level Reps/Duration 10 each direction Comments braced at wall, focus on core stability Spinal Exercises stretch cord resisted walking Body Position Standing Water Level Chest Level Reps/Duration 2 steps 4x each direction Comments stabilizing with mvmt stretch cord rotations Body Position Standing Water Level Chest Level Reps/Duration 8 each direction PT-OP-T Assessment and Plan Start: 01/05/19 16:21 Freq: Status: Active Protocol: Document 12/07/19 13:46 SAK (Rec: 12/07/19 14:31 SAK [id number]) Physical Therapy Assessment Goals Three Impairment strength Halfway Goal (LTG) Establish well-tolerated aquatic exercise program and HEP focused on strengthening and balance for patient with patient demonstrated independence and compliance and demonstrate good knowledge of how to modify depending on symptoms. 06/22/19: goal progress 08/16/19: decline in LE strength left side, will need modification. Patient lost written HEP during move, and stress of move didn't allow her to exercise. LTG Duration 01/15/20 Two Impairment balance Short Term Goal (STG) Complete objective balance testing for baseline measurements 06/06/19: goal progress 06/22/19: further testing reveals good balance, cane required more for fatigue 11/16/19: decline in balance noted with SLS and tandem stand today, denies any falls. Review Scheduling Coordinator Goal (LTG) Patient to be safe and independent with gait on level and uneven surfaces with least restrictive device, and have no reported falls. Will be compliant with recommendations for home safety. 06/22/19: patient currently using single point cane for gait. Feel she would benefit from use of 4WW in the community to allow her to rest when needed, but she is resistant to this at this time . 06/06/19: good goal progress 11/16/19: patient now using 4WW in community as recommended previously due to decline in strength and activity tolerance. Decreased foot clearance with gait noted today which increases fall risk. Will need addition and modification to HEP. LTG Duration 01/15/20 One Impairment activity tolerance Short Term Goal (STG) instruct in energy conservation and pacing 06/06/19: goal met STG Duration MET Halfway Goal (LTG) Patient to demonstrate good understanding and compliance with energy conservation and pacing of activities. 06/22/19: good goal progress 11/16/19: due to decline in strength and function, needs further education and modification LTG Duration 01/15/20 Assessment Summary Assessment Patient required frequent rest breaks but overal improved tolerance for therapeutic exercises and activities today including stair training ( patient reported she has been mostly avoiding stairs at home recently) Physical Therapy Plan Frequency and Duration Frequency of Treatment 1x/Week Duration of Treatment 12 wks Plan of Care Start Date 11/16/19 Plan of Care End Date 01/15/20 Therapeutic Interventions Therapeutic Interventions Aquatic Therapy,Balance Training,Coordination Training ,Gait Training,Home Exercise Program,Neuromuscular Re- education,Self-Care/Home Management,Therapeutic Activities,Therapeutic Exercises Next Visit Focus/Plan Next Note Type Treatment Note Next Visit Plan Start session with 2 minute or 6 minute walk test depending on patient tolerance. Continue to progress strengthening and gait training as tolerated.
--- NOTE | 2019-12-14 09:45 | PT.OTN ---
Current Diagnoses Spasmodic torticollis (12/14/19) Myotonic muscular dystrophy (12/14/19) Muscle weakness (generalized) (12/14/19) Physical Therapy Treatment Note PT-OP-A Visit Information Start: 01/05/19 16:21 Freq: Status: Active Protocol: Document 12/14/19 08:58 SAK (Rec: 12/14/19 09:13 SAK [id number]) Out-Patient Physical Therapy Visit Information Visit Information Visit Type Treatment Note Visit Start Time 09:00 Visit Stop Time 09:45 Total Visit Minutes 45 Visit Number 23 PT-OP-B Current Condition Start: 01/05/19 16:21 Freq: Status: Active Protocol: Document 01/06/19 12:57 SAK (Rec: 01/06/19 13:25 SAK [id number]) Current Condition History of Current Condition Onset Date 4 yrs Current Complaints LE weakness and achiness, SOB History of Current Condition Gradual progressive weakness, started using cane May 2017. Has been seeing specialists and having tests with diagnosis of possible indeterminate type of muscular dystrophy. Also reports exercise intolerance with SOB, increasing fatigue, need for much slower pace. The more I do the worse I feel . Hoping to see if she can establish an exercise program that will not exhaust her. Requesting possible aquatic therapy. Difficulty getting out of chairs, off floor. 2018 8-10 falls, this year being more careful, last fall was in July. Has not suffererd injury. Started Prednisone yesterday 15 mg. Prior experience with Prednisone caused migraine; has headache but not migraine. LE weakness symmetrical, no numbness or tingling. With falls, reports usually [address] Frequently uses cane or walker. No dizziness. BP well-managed. Uses electric tricycle. Has recumbant exercise bike, reports not using, has tendency to overdo. Also weakness in UE's; hard to wash hair, can't hold chair, can only get 1 plate out of cupboard at a time, doesn't carry groceries. Stool in shower, can dress self. Trip to [place] next week, has anxiety about being able to tolerate. Prior Treatments and Tests muscle biopsy negative [facility] neurologist States MS and ALS ruled out as diagnoses. Future Testing and Treatments Planned Spoke today with Claudy Sotelo, doctor inclusion body myositis specialist at [facility] in [place]; has February 16 appointment Patient reports a second muscle biopsy recommended by [facility] physician Treatment Goals Patient/Caregiver Goals Improve strength/maintain, establish exercise program. Hoping for aquatic therapy. Had difficulty getting in/out of pool and felt uncoordinated last time in pool. Knows how to swim, but body has changed and it felt very difficult. Prior Functional Status Baseline Function- ADL's Independent Baseline Function- Mobility Independent Baseline Function- Gait independent without device Baseline Function- Work/School retired Baseline Function- Recreation/Hobbies walk, bike, hike Current Functional Impairments (Reported) Functional Limitations- ADL's slow, fatiguing Functional Limitations- Mobility/Gait very limited with c/o SOB, frequent rest breaks Functional Limitations- Work/School retired Functional Limitations- Recreation/ unable except has electric Hobbies tricycle PT-OP-C Subjective Start: 01/05/19 16:21 Freq: Status: Active Protocol: Document 12/14/19 08:58 SAK (Rec: 12/14/19 09:13 SAK [id number]) OP-PT Subjective Patient Comments Patient Comments Has been walking with on [employer] trail frequently, tries to make it to the first bench (10 min) at slow pace. Didn't feel up to it yesterday. Saw Dr. Meza about cervical dystonia. Wants to try accupuncture instead of IVIG after doing some research. Going to see Lenny Ortega accupuncturist in [place]. states no diagnosis for neuropathy/ dystonia. PT-OP-D Balance Start: 01/05/19 16:21 Freq: Status: Active Protocol: Document 06/06/19 08:59 SAK (Rec: 06/06/19 13:50 SAK [id number]) Balance Tests Sheth Balance Test Sheth Balance Test Score 53 Sheth Impairment Rating 1 to 19% Impaired (Score 45-55 ) PT-OP-E Functional Tests Start: 01/05/19 16:21 Freq: Status: Active Protocol: Document 07/20/19 09:01 SAK (Rec: 07/20/19 10:00 SAK [id number]) Functional Tests 6 Minute Walk Test Comments not done due to fatigue PT-OP-G Mobility & Gait Start: 01/05/19 16:21 Freq: Status: Active Protocol: Document 07/04/19 11:54 SP (Rec: 07/04/19 11:56 SP [id number]) OP Mobility Evaluation Bed Mobility Rolling I Supine to and from Sit I Transfers Sit to Stand Indep, no hands initially. Requires use of hands with fatigue PT-OP-H Neuro Start: 01/05/19 16:21 Freq: Status: Active Protocol: Document 06/06/19 08:59 SAK (Rec: 06/06/19 13:50 SAK [id number]) Sensation Evaluation Gross Sensation Gross Sensation WNL PT-OP-J Posture/Palpation/Skin Start: 01/05/19 16:21 Freq: Status: Active Protocol: Document 01/06/19 12:57 SAK (Rec: 01/09/19 12:55 SAK [id number]) Skin Assessment Other Assessments Skin Assessment Comments intact, no edema or brusing evident PT-OP-K Range of Motion Start: 01/05/19 16:21 Freq: Status: Active Protocol: Document 01/06/19 12:57 SAK (Rec: 01/09/19 12:55 SAK [id number]) Cervical Spine Range of Motion Cervical Spine Active Comments WNL Lumbar Spine Range of Motion Lumbar Spine Active Comments WNL Shoulder Goniometric Range of Motion Shoulder left Shoulder ROM WFL Yes right Shoulder ROM WFL Yes Elbow/Forearm Range of Motion Elbow/Forearm girma Elbow/Forearm ROM WFL Yes Wrist Goniometric Range of Motion Wrist girma Wrist ROM WFL Yes Hip Goniometric Range of Motion Hip girma Hip ROM WFL Yes Knee Goniometric Range of Motion Knee girma Knee ROM WFL Yes Ankle and Foot Goniometric Range of Motion Ankle and Foot girma Ankle/Foot ROM WFL Yes PT-OP-M Strength Start: 01/05/19 16:21 Freq: Status: Active Protocol: Document 11/16/19 12:44 SAK (Rec: 11/16/19 13:30 SAK [id number]) Hip Strength Hip Manual Muscle Testing Left Flexion (L2) 4- Good- Extension (S1) 3- Fair- Abduction 3- Fair- Adduction 4- Good- Right Flexion (L2) 4- Good- Extension (S1) 4- Good- Abduction 4- Good- Adduction 4- Good- Comments not tested due to fatigue Knee Strength Knee Manual Muscle Testing Left Flexion (S2) 4- Good- Extension (L3) 4- Good- Right Flexion (S2) 4 Good Extension (L3) 4 Good Ankle/Foot Strength Ankle and Foot Manual Muscle Testing Left Dorsiflexion (L4) 4- Good- Plantarflexion (S1) 3+ Fair+ Right Dorsiflexion (L4) 4 Good Plantarflexion (S1) 4 Good PT-OP-Q Treatments Start: 01/05/19 16:21 Freq: Status: Active Protocol: Document 12/14/19 08:58 SAK (Rec: 12/14/19 09:13 SAK [id number]) Gym Equipment Shuttle Recovery Unilateral Squats Resistance 25 Shuttle Recovery Platform Stable Reps/Time 5x Bilateral Squats Resistance 50 Shuttle Recovery Platform Stable Reps/Time 6x Shuttle Balance 1 Details red Reps/Duration 7 min Comments wt shift F/B/side R and L, contact as needed (gait belt on safety-CGA), no LOB Gait Training Gait Activity gait Distance/Duration 261', 50', 75' Treatment Focus activity tolerance, stability, left LE motor control PT-OP-S Aquatic Treatment Start: 01/05/19 16:21 Freq: Status: Active Protocol: Document 04/18/19 11:00 NATASHA (Rec: 04/18/19 16:09 [id number]) Aquatics Treatment Pool Entry/Exit Pool Entry/Exit Method Stairs Assistance Standby Assistance,Verbal Cues Water Walking Monster Walk Water Level Chest Level Level of Assistance Verbal Cues Comments slow pace Marching Water Level Chest Level Level of Assistance Verbal Cues Comments slow pace Sideways Water Level Chest Level Level of Assistance Standby Assistance,Verbal Cues Comments slow pace Forwards Water Level Chest Level Level of Assistance Standby Assistance,Verbal Cues Comments slow pace Lower Extremity Exercises hip flex/ext, ab/ad, circles Body Position Standing Water Level Waist Level Reps/Duration 10 ea Comments gentle side to side weight-shifts Body Position Standing Water Level Chest Level Reps/Duration 10x squats Body Position Standing Water Level Chest Level Reps/Duration 10x Lower Extremity Stretches hip flexor Body Position Standing Water Level Waist Level Equipment Small Noodle Reps/Duration 2x30 Comments at wall quads Body Position Standing Water Level Waist Level Equipment Small Noodle Comments at wall HC Body Position Standing Water Level Waist Level Equipment Small Noodle Reps/Duration 2x30 Comments toes on wall HS Body Position Standing Water Level Waist Level Reps/Duration 2x30 Upper Extremity Exercises flex/ext, ab/ad, horiz ab/ad Body Position Sitting Water Level Neck Level Reps/Duration 10 each direction Comments braced at wall, focus on core stability Spinal Exercises stretch cord resisted walking Body Position Standing Water Level Chest Level Reps/Duration 2 steps 4x each direction Comments stabilizing with mvmt stretch cord rotations Body Position Standing Water Level Chest Level Reps/Duration 8 each direction PT-OP-T Assessment and Plan Start: 01/05/19 16:21 Freq: Status: Active Protocol: Document 12/14/19 08:58 [facility] (Rec: 12/14/19 09:13 [facility] [id number]) Physical Therapy Assessment Goals Three Impairment strength Casino Games Dealer Goal (LTG) Establish well-tolerated aquatic exercise program and HEP focused on strengthening and balance for patient with patient demonstrated independence and compliance and demonstrate good knowledge of how to modify depending on symptoms. 06/22/19: goal progress 08/16/19: decline in LE strength left side, will need modification. Patient lost written HEP during move, and stress of move didn't allow her to exercise. LTG Duration 01/15/20 Two Impairment balance Short Term Goal (STG) Complete objective balance testing for baseline measurements 06/06/19: goal progress 06/22/19: further testing reveals good balance, cane required more for fatigue 11/16/19: decline in balance noted with SLS and tandem stand today, denies any falls. Snf Goal (LTG) Patient to be safe and independent with gait on level and uneven surfaces with least restrictive device, and have no reported falls. Will be compliant with recommendations for home safety. 06/22/19: patient currently using single point cane for gait. Feel she would benefit from use of 4WW in the community to allow her to rest when needed, but she is resistant to this at this time . 06/06/19: good goal progress 11/16/19: patient now using 4WW in community as recommended previously due to decline in strength and activity tolerance. Decreased foot clearance with gait noted today which increases fall risk. Will need addition and modification to HEP. LTG Duration 01/15/20 One Impairment activity tolerance Short Term Goal (STG) instruct in energy conservation and pacing 06/06/19: goal met STG Duration MET Casino Games Dealer Goal (LTG) Patient to demonstrate good understanding and compliance with energy conservation and pacing of activities. 1/22/20: good goal progress 11/16/19: due to decline in strength and function, needs further education and modification LTG Duration 01/15/20 Assessment Summary Assessment 261 ft (improvement of 29') with 2 min walk using 4WW. Added shuttle leg press, inc challenge on shuttle balance. Patient fatigued after treatment, had PT aide walk with her to her car to help manage her 4WW. Physical Therapy Plan Frequency and Duration Frequency of Treatment 1x/Week Duration of Treatment 12 wks Plan of Care Start Date 11/16/19 Plan of Care End Date 01/15/20 Therapeutic Interventions Therapeutic Interventions Aquatic Therapy,Balance Training,Coordination Training ,Gait Training,Home Exercise Program,Neuromuscular Re- education,Self-Care/Home Management,Therapeutic Activities,Therapeutic Exercises Next Visit Focus/Plan Next Note Type Treatment Note Next Visit Plan Assess response to last PT session, progress ther ex as tolerated.
--- NOTE | 2019-12-28 13:16 | PT.OTN ---
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) Muscle weakness (generalized) (12/28/19) Physical Therapy Treatment Note PT-OP-A Visit Information Start: 01/05/19 16:21 Freq: Status: Active Protocol: Document 12/28/19 13:07 SAK (Rec: 12/28/19 13:16 SAK [id number]) Out-Patient Physical Therapy Visit Information Visit Information Visit Type Treatment Note Visit Start Time 11:15 Visit Stop Time 12:00 Total Visit Minutes 45 Visit Number 24 PT-OP-B Current Condition Start: 01/05/19 16:21 Freq: Status: Active Protocol: Document 01/06/19 12:57 SAK (Rec: 01/06/19 13:25 SAK [id number]) Current Condition History of Current Condition Onset Date 4 yrs Current Complaints LE weakness and achiness, SOB History of Current Condition Gradual progressive weakness, started using cane May 2017. Has been seeing specialists and having tests with diagnosis of possible indeterminate type of muscular dystrophy. Also reports exercise intolerance with SOB, increasing fatigue, need for much slower pace. The more I do the worse I feel . Hoping to see if she can establish an exercise program that will not exhaust her. Requesting possible aquatic therapy. Difficulty getting out of chairs, off floor. 2018 8-10 falls, this year being more careful, last fall was in July. Has not suffererd injury. Started Prednisone yesterday 15 mg. Prior experience with Prednisone caused migraine; has headache but not migraine. LE weakness symmetrical, no numbness or tingling. With falls, reports usually [address] Frequently uses cane or walker. No dizziness. BP well-managed. Uses electric tricycle. Has recumbant exercise bike, reports not using, has tendency to overdo. 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 Stool in shower, can dress self. Trip to [place] next week, has anxiety about being able to tolerate. Prior Treatments and Tests muscle biopsy negative [facility] neurologist States MS and ALS ruled out as diagnoses. Future Testing and Treatments Planned Spoke today with Claudy Sotelo, doctor inclusion body myositis specialist at [facility] in [place]; has February 16 appointment Patient reports a second muscle biopsy recommended by [facility] physician Treatment Goals Patient/Caregiver Goals Improve strength/maintain, establish exercise program. Hoping for aquatic therapy. Had difficulty getting in/out of pool and felt uncoordinated last time in pool. Knows how to swim, but body has changed and it felt very difficult. Prior Functional Status Baseline Function- ADL's Independent Baseline Function- Mobility Independent Baseline Function- Gait independent without device Baseline Function- Work/School retired Baseline Function- Recreation/Hobbies walk, bike, hike Current Functional Impairments (Reported) Functional Limitations- ADL's slow, fatiguing Functional Limitations- Mobility/Gait very limited with c/o SOB, frequent rest breaks Functional Limitations- Work/School retired Functional Limitations- Recreation/ unable except has electric Hobbies tricycle PT-OP-C Subjective Start: 01/05/19 16:21 Freq: Status: Active Protocol: Document 12/28/19 13:07 [facility] (Rec: 12/28/19 13:16 [facility] [id number]) OP-PT Subjective Patient Comments Patient Comments Reports her excessive fatigue has been coming on earlier in the day. Trying to walk on [employer] trail up to 1/4 mile, but states exhausted after. Frustrated by need to conserve energy so much and tolerate so little each day. Will be seeing neurologist regarding this fatigue and wants to consult regarding possible referal to [facility]. Poor experience with accupuncturist, may try to see another as had read research about it being helpful for Sjogrens and small fiber neuropathy. PT-OP-D Balance Start: 01/05/19 16:21 Freq: Status: Active Protocol: Document 06/06/19 08:59 [facility] (Rec: 06/06/19 13:50 [facility] [id number]) Balance Tests Sheth Balance Test Sheth Balance Test Score 53 Sheth Impairment Rating 1 to 19% Impaired (Score 45-55 ) PT-OP-E Functional Tests Start: 01/05/19 16:21 Freq: Status: Active Protocol: Document 07/20/19 09:01 SAK (Rec: 07/20/19 10:00 [facility] [id number]) Functional Tests 6 Minute Walk Test Comments not done due to fatigue PT-OP-G Mobility & Gait Start: 01/05/19 16:21 Freq: Status: Active Protocol: Document 07/04/19 11:54 SP (Rec: 07/04/19 11:56 SP [id number]) OP Mobility Evaluation Bed Mobility Rolling I Supine to and from Sit I Transfers Sit to Stand Indep, no hands initially. Requires use of hands with fatigue PT-OP-H Neuro Start: 01/05/19 16:21 Freq: Status: Active Protocol: Document 06/06/19 08:59 SAK (Rec: 06/06/19 13:50 SAK [id number]) Sensation Evaluation Gross Sensation Gross Sensation WNL PT-OP-J Posture/Palpation/Skin Start: 01/05/19 16:21 Freq: Status: Active Protocol: Document 01/06/19 12:57 SAK (Rec: 01/09/19 12:55 SAK [id number]) Skin Assessment Other Assessments Skin Assessment Comments intact, no edema or brusing evident PT-OP-K Range of Motion Start: 01/05/19 16:21 Freq: Status: Active Protocol: Document 01/06/19 12:57 SAK (Rec: 01/09/19 12:55 SAK [id number]) Cervical Spine Range of Motion Cervical Spine Active Comments WNL Lumbar Spine Range of Motion Lumbar Spine Active Comments WNL Shoulder Goniometric Range of Motion Shoulder left Shoulder ROM WFL Yes right Shoulder ROM WFL Yes Elbow/Forearm Range of Motion Elbow/Forearm girma Elbow/Forearm ROM WFL Yes Wrist Goniometric Range of Motion Wrist girma Wrist ROM WFL Yes Hip Goniometric Range of Motion Hip girma Hip ROM WFL Yes Knee Goniometric Range of Motion Knee girma Knee ROM WFL Yes Ankle and Foot Goniometric Range of Motion Ankle and Foot girma Ankle/Foot ROM WFL Yes PT-OP-M Strength Start: 01/05/19 16:21 Freq: Status: Active Protocol: Document 11/16/19 12:44 SAK (Rec: 11/16/19 13:30 SAK [id number]) Hip Strength Hip Manual Muscle Testing Left Flexion (L2) 4- Good- Extension (S1) 3- Fair- Abduction 3- Fair- Adduction 4- Good- Right Flexion (L2) 4- Good- Extension (S1) 4- Good- Abduction 4- Good- Adduction 4- Good- Comments not tested due to fatigue Knee Strength Knee Manual Muscle Testing Left Flexion (S2) 4- Good- Extension (L3) 4- Good- Right Flexion (S2) 4 Good Extension (L3) 4 Good Ankle/Foot Strength Ankle and Foot Manual Muscle Testing Left Dorsiflexion (L4) 4- Good- Plantarflexion (S1) 3+ Fair+ Right Dorsiflexion (L4) 4 Good Plantarflexion (S1) 4 Good PT-OP-Q Treatments Start: 01/05/19 16:21 Freq: Status: Active Protocol: Document 12/28/19 13:07 SAK (Rec: 12/28/19 13:16 SAK [id number]) Gym Equipment Shuttle Recovery Unilateral Squats Resistance 25 Shuttle Recovery Platform Stable Reps/Time 6x Bilateral Squats Resistance 50 Shuttle Recovery Platform Stable Reps/Time 6x Shuttle Balance 1 Details red Reps/Duration 7 min Comments wt shift F/B/side R and L, contact as needed (gait belt on safety-CGA), no LOB Therapeutic Exercises Sitting Exercises seated crunch Reps/Minutes 5x Standing Exercises LE strength and balance ex Standing Exercise Name SLS, weight shifts Reps/Minutes glut activation, stability, strengthening Gait Training Gait Activity gait level without device Level of Assistance SB to CGA Surface firm Distance/Duration 10'x4 Treatment Focus hip stability, safety stairs Device Used bilateral railings Level of Assistance SBA Surface 6 stairs (4) x 2 gait Distance/Duration 237', 15', 75' Treatment Focus activity tolerance, stability, left LE motor control PT-OP-S Aquatic Treatment Start: 01/05/19 16:21 Freq: Status: Active Protocol: Document 04/18/19 11:00 NATASHA (Rec: 04/18/19 16:09 NATASHA [id number]) Aquatics Treatment Pool Entry/Exit Pool Entry/Exit Method Stairs Assistance Standby Assistance,Verbal Cues Water Walking Monster Walk Water Level Chest Level Level of Assistance Verbal Cues Comments slow pace Marching Water Level Chest Level Level of Assistance Verbal Cues Comments slow pace Sideways Water Level Chest Level Level of Assistance Standby Assistance,Verbal Cues Comments slow pace Forwards Water Level Chest Level Level of Assistance Standby Assistance,Verbal Cues Comments slow pace Lower Extremity Exercises hip flex/ext, ab/ad, circles Body Position Standing Water Level Waist Level Reps/Duration 10 ea Comments gentle side to side weight-shifts Body Position Standing Water Level Chest Level Reps/Duration 10x squats Body Position Standing Water Level Chest Level Reps/Duration 10x Lower Extremity Stretches hip flexor Body Position Standing Water Level Waist Level Equipment Small Noodle Reps/Duration 2x30 Comments at wall quads Body Position Standing Water Level Waist Level Equipment Small Noodle Comments at wall HC Body Position Standing Water Level Waist Level Equipment Small Noodle Reps/Duration 2x30 Comments toes on wall HS Body Position Standing Water Level Waist Level Reps/Duration 2x30 Upper Extremity Exercises flex/ext, ab/ad, horiz ab/ad Body Position Sitting Water Level Neck Level Reps/Duration 10 each direction Comments braced at wall, focus on core stability Spinal Exercises stretch cord resisted walking Body Position Standing Water Level Chest Level Reps/Duration 2 steps 4x each direction Comments stabilizing with mvmt stretch cord rotations Body Position Standing Water Level Chest Level Reps/Duration 8 each direction PT-OP-T Assessment and Plan Start: 01/05/19 16:21 Freq: Status: Active Protocol: Document 12/28/19 13:07 [facility] (Rec: 12/28/19 13:16 [facility] [id number]) Physical Therapy Assessment Goals Three Impairment strength Mortician Helper Goal (LTG) Establish well-tolerated aquatic exercise program and HEP focused on strengthening and balance for patient with patient demonstrated independence and compliance and demonstrate good knowledge of how to modify depending on symptoms. 06/22/19: goal progress 08/16/19: decline in LE strength left side, will need modification. Patient lost written HEP during move, and stress of move didn't allow her to exercise. LTG Duration 01/15/20 Two Impairment balance Short Term Goal (STG) Complete objective balance testing for baseline measurements 06/06/19: goal progress 06/22/19: further testing reveals good balance, cane required more for fatigue 11/16/19: decline in balance noted with SLS and tandem stand today, denies any falls. Half-Way Goal (LTG) Patient to be safe and independent with gait on level and uneven surfaces with least restrictive device, and have no reported falls. Will be compliant with recommendations for home safety. 06/22/19: patient currently using single point cane for gait. Feel she would benefit from use of 4WW in the community to allow her to rest when needed, but she is resistant to this at this time . 06/06/19: good goal progress 11/16/19: patient now using 4WW in community as recommended previously due to decline in strength and activity tolerance. Decreased foot clearance with gait noted today which increases fall risk. Will need addition and modification to HEP. LTG Duration 01/15/20 One Impairment activity tolerance Short Term Goal (STG) instruct in energy conservation and pacing 06/06/19: goal met STG Duration MET Half-Way Goal (LTG) Patient to demonstrate good understanding and compliance with energy conservation and pacing of activities. 06/22/19: good goal progress 11/16/19: due to decline in strength and function, needs further education and modification LTG Duration 01/15/20 Assessment Summary Assessment Patient stability on strength improved. Without assistive device note Trendelenberg left . Physical Therapy Plan Frequency and Duration Frequency of Treatment 1x/Week Duration of Treatment 12 wks Plan of Care Start Date 11/16/19 Plan of Care End Date 01/15/20 Therapeutic Interventions Therapeutic Interventions Aquatic Therapy,Balance Training,Coordination Training ,Gait Training,Home Exercise Program,Neuromuscular Re- education,Self-Care/Home Management,Therapeutic Activities,Therapeutic Exercises
--- NOTE | 2020-01-02 17:19 | PT.OTN ---
Current Diagnoses Spasmodic torticollis (01/02/20) Myotonic muscular dystrophy (01/02/20) Muscle weakness (generalized) (01/02/20) Physical Therapy Treatment Note PT-OP-A Visit Information Start: 01/05/19 16:21 Freq: Status: Active Protocol: Document 01/02/20 09:03 SAK (Rec: 01/02/20 09:23 SAK [id number]) Out-Patient Physical Therapy Visit Information Visit Information Visit Type Treatment Note Visit Start Time 09:02 Visit Stop Time 09:45 Total Visit Minutes 43 Visit Number 25 PT-OP-B Current Condition Start: 01/05/19 16:21 Freq: Status: Active Protocol: Document 01/06/19 12:57 SAK (Rec: 01/06/19 13:25 SAK [id number]) Current Condition History of Current Condition Onset Date 4 yrs Current Complaints LE weakness and achiness, SOB History of Current Condition Gradual progressive weakness, started using cane May 2017. Has been seeing specialists and having tests with diagnosis of possible indeterminate type of muscular dystrophy. Also reports exercise intolerance with SOB, increasing fatigue, need for much slower pace. The more I do the worse I feel . Hoping to see if she can establish an exercise program that will not exhaust her. Requesting possible aquatic therapy. Difficulty getting out of chairs, off floor. 2018 8-10 falls, this year being more careful, last fall was in July. Has not suffererd injury. Started Prednisone yesterday 15 mg. Prior experience with Prednisone caused migraine; has headache but not migraine. LE weakness symmetrical, no numbness or tingling. With falls, reports usually [address] Frequently uses cane or walker. No dizziness. BP well-managed. Uses electric tricycle. Has recumbant exercise bike, reports not using, has tendency to overdo. 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 Stool in shower, can dress self. Trip to [place] next week, has anxiety about being able to tolerate. Prior Treatments and Tests muscle biopsy negative [facility] neurologist States MS and ALS ruled out as diagnoses. Future Testing and Treatments Planned Spoke today with Claudy Sotelo, doctor inclusion body myositis specialist at [facility] in [place]; has February 16 appointment Patient reports a second muscle biopsy recommended by [facility] physician Treatment Goals Patient/Caregiver Goals Improve strength/maintain, establish exercise program. Hoping for aquatic therapy. Had difficulty getting in/out of pool and felt uncoordinated last time in pool. Knows how to swim, but body has changed and it felt very difficult. Prior Functional Status Baseline Function- ADL's Independent Baseline Function- Mobility Independent Baseline Function- Gait independent without device Baseline Function- Work/School retired Baseline Function- Recreation/Hobbies walk, bike, hike Current Functional Impairments (Reported) Functional Limitations- ADL's slow, fatiguing Functional Limitations- Mobility/Gait very limited with c/o SOB, frequent rest breaks Functional Limitations- Work/School retired Functional Limitations- Recreation/ unable except has electric Hobbies tricycle PT-OP-C Subjective Start: 01/05/19 16:21 Freq: Status: Active Protocol: Document 01/02/20 09:03 [facility] (Rec: 01/02/20 09:23 [facility] [id number]) OP-PT Subjective Patient Comments Patient Comments States yesterday had a really good morning, walked at increased pace, and increased distance, visited friends, but by mid afternoon was extremely exhausted, unable to do anything the rest of the day. States she could barely make it to bed due to fatigue. Poor sleep last night with LE pain, had to take Alleve last night and this morning. Has changed her mind about doing IVIg, is waiting to see if that will be possible. States after last PT session was fatigued but not excessively, recovered well. PT-OP-D Balance Start: 01/05/19 16:21 Freq: Status: Active Protocol: Document 06/06/19 08:59 [facility] (Rec: 06/06/19 13:50 [facility] [id number]) Balance Tests Sheth Balance Test Sheth Balance Test Score 53 Sheth Impairment Rating 1 to 19% Impaired (Score 45-55 ) PT-OP-E Functional Tests Start: 01/05/19 16:21 Freq: Status: Active Protocol: Document 07/20/19 09:01 [facility] (Rec: 07/20/19 10:00 [facility] [id number]) Functional Tests 6 Minute Walk Test Comments not done due to fatigue PT-OP-G Mobility & Gait Start: 08/07/19 16:21 Freq: Status: Active Protocol: Document 07/04/19 11:54 SP (Rec: 07/04/19 11:56 SP [id number]) OP Mobility Evaluation Bed Mobility Rolling I Supine to and from Sit I Transfers Sit to Stand Indep, no hands initially. Requires use of hands with fatigue PT-OP-H Neuro Start: 01/05/19 16:21 Freq: Status: Active Protocol: Document 06/06/19 08:59 SAK (Rec: 06/06/19 13:50 SAK [id number]) Sensation Evaluation Gross Sensation Gross Sensation WNL PT-OP-J Posture/Palpation/Skin Start: 01/05/19 16:21 Freq: Status: Active Protocol: Document 01/06/19 12:57 SAK (Rec: 01/09/19 12:55 SAK [id number]) Skin Assessment Other Assessments Skin Assessment Comments intact, no edema or brusing evident PT-OP-K Range of Motion Start: 01/05/19 16:21 Freq: Status: Active Protocol: Document 01/06/19 12:57 SAK (Rec: 01/09/19 12:55 SAK [id number]) Cervical Spine Range of Motion Cervical Spine Active Comments WNL Lumbar Spine Range of Motion Lumbar Spine Active Comments WNL Shoulder Goniometric Range of Motion Shoulder left Shoulder ROM WFL Yes right Shoulder ROM WFL Yes Elbow/Forearm Range of Motion Elbow/Forearm girma Elbow/Forearm ROM WFL Yes Wrist Goniometric Range of Motion Wrist girma Wrist ROM WFL Yes Hip Goniometric Range of Motion Hip girma Hip ROM WFL Yes Knee Goniometric Range of Motion Knee girma Knee ROM WFL Yes Ankle and Foot Goniometric Range of Motion Ankle and Foot girma Ankle/Foot ROM WFL Yes PT-OP-M Strength Start: 01/05/19 16:21 Freq: Status: Active Protocol: Document 11/16/19 12:44 SAK (Rec: 11/16/19 13:30 SAK [id number]) Hip Strength Hip Manual Muscle Testing Left Flexion (L2) 4- Good- Extension (S1) 3- Fair- Abduction 3- Fair- Adduction 4- Good- Right Flexion (L2) 4- Good- Extension (S1) 4- Good- Abduction 4- Good- Adduction 4- Good- Comments not tested due to fatigue Knee Strength Knee Manual Muscle Testing Left Flexion (S2) 4- Good- Extension (L3) 4- Good- Right Flexion (S2) 4 Good Extension (L3) 4 Good Ankle/Foot Strength Ankle and Foot Manual Muscle Testing Left Dorsiflexion (L4) 4- Good- Plantarflexion (S1) 3+ Fair+ Right Dorsiflexion (L4) 4 Good Plantarflexion (S1) 4 Good PT-OP-Q Treatments Start: 01/05/19 16:21 Freq: Status: Active Protocol: Document 01/02/20 09:03 SAK (Rec: 01/02/20 09:23 SAK [id number]) Gym Equipment Shuttle Recovery Unilateral Squats Resistance 25 Shuttle Recovery Platform Stable Reps/Time 10x Bilateral Squats Resistance 50 Shuttle Recovery Platform Stable Reps/Time 10x Shuttle Balance 1 Details red Reps/Duration 3 min x 2 Comments wt shift F/B/side R and L, contact as needed (gait belt on safety-CGA), no LOB Therapeutic Exercises Supine Exercises pec stretch Reps/Minutes 2x30 Standing Exercises posture press Reps/Minutes 1 min Therapeutic Activity Therapeutic Activity deep breathing Name alternating abdominal and chest Reps/Minutes 1 min x 3 Gait Training Gait Activity gait Distance/Duration 50', 10', 10', 20' Treatment Focus activity tolerance, stability, left LE motor control PT-OP-S Aquatic Treatment Start: 01/05/19 16:21 Freq: Status: Active Protocol: Document 04/18/19 11:00 NATASHA (Rec: 04/18/19 16:09 LJ [id number]) Aquatics Treatment Pool Entry/Exit Pool Entry/Exit Method Stairs Assistance Standby Assistance,Verbal Cues Water Walking Monster Walk Water Level Chest Level Level of Assistance Verbal Cues Comments slow pace Marching Water Level Chest Level Level of Assistance Verbal Cues Comments slow pace Sideways Water Level Chest Level Level of Assistance Standby Assistance,Verbal Cues Comments slow pace Forwards Water Level Chest Level Level of Assistance Standby Assistance,Verbal Cues Comments slow pace Lower Extremity Exercises hip flex/ext, ab/ad, circles Body Position Standing Water Level Waist Level Reps/Duration 10 ea Comments gentle side to side weight-shifts Body Position Standing Water Level Chest Level Reps/Duration 10x squats Body Position Standing Water Level Chest Level Reps/Duration 10x Lower Extremity Stretches hip flexor Body Position Standing Water Level Waist Level Equipment Small Noodle Reps/Duration 2x30 Comments at wall quads Body Position Standing Water Level Waist Level Equipment Small Noodle Comments at wall HC Body Position Standing Water Level Waist Level Equipment Small Noodle Reps/Duration 2x30 Comments toes on wall HS Body Position Standing Water Level Waist Level Reps/Duration 2x30 Upper Extremity Exercises flex/ext, ab/ad, horiz ab/ad Body Position Sitting Water Level Neck Level Reps/Duration 10 each direction Comments braced at wall, focus on core stability Spinal Exercises stretch cord resisted walking Body Position Standing Water Level Chest Level Reps/Duration 2 steps 4x each direction Comments stabilizing with mvmt stretch cord rotations Body Position Standing Water Level Chest Level Reps/Duration 8 each direction PT-OP-T Assessment and Plan Start: 01/05/19 16:21 Freq: Status: Active Protocol: Document 01/02/20 09:03 CATARINO (Rec: 01/02/20 09:23 [facility] [id number]) Physical Therapy Assessment Goals Three Impairment strength Press Hand Supervisor Goal (LTG) Establish well-tolerated aquatic exercise program and HEP focused on strengthening and balance for patient with patient demonstrated independence and compliance and demonstrate good knowledge of how to modify depending on symptoms. 06/22/19: goal progress 08/16/19: decline in LE strength left side, will need modification. Patient lost written HEP during move, and stress of move didn't allow her to exercise. LTG Duration 01/15/20 Two Impairment balance Short Term Goal (STG) Complete objective balance testing for baseline measurements 06/06/19: goal progress 06/22/19: further testing reveals good balance, cane required more for fatigue 11/16/19: decline in balance noted with SLS and tandem stand today, denies any falls. Shelter Goal (LTG) Patient to be safe and independent with gait on level and uneven surfaces with least restrictive device, and have no reported falls. Will be compliant with recommendations for home safety. 06/22/19: patient currently using single point cane for gait. Feel she would benefit from use of 4WW in the community to allow her to rest when needed, but she is resistant to this at this time . 06/06/19: good goal progress 11/16/19: patient now using 4WW in community as recommended previously due to decline in strength and activity tolerance. Decreased foot clearance with gait noted today which increases fall risk. Will need addition and modification to HEP. LTG Duration 01/15/20 One Impairment activity tolerance Short Term Goal (STG) instruct in energy conservation and pacing 06/06/19: goal met STG Duration MET Shelter Goal (LTG) Patient to demonstrate good understanding and compliance with energy conservation and pacing of activities. 06/22/19: good goal progress 11/16/19: due to decline in strength and function, needs further education and modification LTG Duration 01/15/20 Assessment Summary Assessment Decrease in activity tolerance today with increased rest breaks. Reviewed abdominal breathing and instructed in alernating abdominal and chest breathing for relaxation. Worked on posture with pec stretch and postural isometric due to forward bent posture from fatigue and weakness. Physical Therapy Plan Frequency and Duration Frequency of Treatment 1x/Week Duration of Treatment 12 wks Plan of Care Start Date 11/16/19 Plan of Care End Date 01/15/20 Therapeutic Interventions Therapeutic Interventions Aquatic Therapy,Balance Training,Coordination Training ,Gait Training,Home Exercise Program,Neuromuscular Re- education,Self-Care/Home Management,Therapeutic Activities,Therapeutic Exercises
--- NOTE | 2020-01-24 12:09 | PT.OTN ---
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) Muscle weakness (generalized) (01/24/20) Physical Therapy Treatment Note PT-OP-A Visit Information Start: 01/05/19 16:21 Freq: Status: Active Protocol: Document 01/24/20 11:23 SAK (Rec: 01/24/20 12:08 SAK [id number]) Out-Patient Physical Therapy Visit Information Visit Information Visit Type Treatment Note Visit Start Time 11:20 Visit Stop Time 12:02 Total Visit Minutes 42 Visit Number 27 PT-OP-B Current Condition Start: 01/05/19 16:21 Freq: Status: Active Protocol: Document 01/06/19 12:57 SAK (Rec: 01/06/19 13:25 SAK [id number]) Current Condition History of Current Condition Onset Date 4 yrs Current Complaints LE weakness and achiness, SOB History of Current Condition Gradual progressive weakness, started using cane May 2017. Has been seeing specialists and having tests with diagnosis of possible indeterminate type of muscular dystrophy. Also reports exercise intolerance with SOB, increasing fatigue, need for much slower pace. The more I do the worse I feel . Hoping to see if she can establish an exercise program that will not exhaust her. Requesting possible aquatic therapy. Difficulty getting out of chairs, off floor. 2018 8-10 falls, this year being more careful, last fall was in July. Has not suffererd injury. Started Prednisone yesterday 15 mg. Prior experience with Prednisone caused migraine; has headache but not migraine. LE weakness symmetrical, no numbness or tingling. With falls, reports usually [address] Frequently uses cane or walker. No dizziness. BP well-managed. Uses electric tricycle. Has recumbant exercise bike, reports not using, has tendency to overdo. 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 Stool in shower, can dress self. Trip to [place] next week, has anxiety about being able to tolerate. Prior Treatments and Tests muscle biopsy negative [facility] neurologist States MS and ALS ruled out as diagnoses. Future Testing and Treatments Planned Spoke today with Claudy Sotelo, doctor inclusion body myositis specialist at [facility] in [place]; has February 16 appointment Patient reports a second muscle biopsy recommended by [facility] physician Treatment Goals Patient/Caregiver Goals Improve strength/maintain, establish exercise program. Hoping for aquatic therapy. Had difficulty getting in/out of pool and felt uncoordinated last time in pool. Knows how to swim, but body has changed and it felt very difficult. Prior Functional Status Baseline Function- ADL's Independent Baseline Function- Mobility Independent Baseline Function- Gait independent without device Baseline Function- Work/School retired Baseline Function- Recreation/Hobbies walk, bike, hike Current Functional Impairments (Reported) Functional Limitations- ADL's slow, fatiguing Functional Limitations- Mobility/Gait very limited with c/o SOB, frequent rest breaks Functional Limitations- Work/School retired Functional Limitations- Recreation/ unable except has electric Hobbies tricycle PT-OP-C Subjective Start: 01/05/19 16:21 Freq: Status: Active Protocol: Document 01/24/20 11:23 SAK (Rec: 01/24/20 12:08 SAK [id number]) OP-PT Subjective Patient Comments Patient Comments 01/15/20 in ER, started on Augmentum due to diverticulitis, just finished medicine 01/22/20. Stayed mostly in bed for 1 week. Reports feeling better past couple days, able to ambulate with cane, energy a little better. Thinks accunpuncture helpful as well as possibly the antibiotic. PT-OP-D Balance Start: 01/05/19 16:21 Freq: Status: Active Protocol: Document 06/06/19 08:59 SAK (Rec: 06/06/19 13:50 SAK [id number]) Balance Tests Sheth Balance Test Sheth Balance Test Score 53 Sheth Impairment Rating 1 to 19% Impaired (Score 45-55 ) PT-OP-E Functional Tests Start: 01/05/19 16:21 Freq: Status: Active Protocol: Document 07/20/19 09:01 SAK (Rec: 07/20/19 10:00 SAK [id number]) Functional Tests 6 Minute Walk Test Comments not done due to fatigue PT-OP-G Mobility & Gait Start: 01/05/19 16:21 Freq: Status: Active Protocol: Document 07/04/19 11:54 SP (Rec: 07/04/19 11:56 SP [id number]) OP Mobility Evaluation Bed Mobility Rolling I Supine to and from Sit I Transfers Sit to Stand Indep, no hands initially. Requires use of hands with fatigue PT-OP-H Neuro Start: 01/05/19 16:21 Freq: Status: Active Protocol: Document 06/06/19 08:59 [facility] (Rec: 06/06/19 13:50 [facility] [id number]) Sensation Evaluation Gross Sensation Gross Sensation WNL PT-OP-J Posture/Palpation/Skin Start: 01/05/19 16:21 Freq: Status: Active Protocol: Document 01/06/19 12:57 [facility] (Rec: 01/09/19 12:55 [facility] [id number]) Skin Assessment Other Assessments Skin Assessment Comments intact, no edema or brusing evident PT-OP-K Range of Motion Start: 01/05/19 16:21 Freq: Status: Active Protocol: Document 01/06/19 12:57 [facility] (Rec: 01/09/19 12:55 [facility] [id number]) Cervical Spine Range of Motion Cervical Spine Active Comments WNL Lumbar Spine Range of Motion Lumbar Spine Active Comments WNL Shoulder Goniometric Range of Motion Shoulder left Shoulder ROM WFL Yes right Shoulder ROM WFL Yes Elbow/Forearm Range of Motion Elbow/Forearm girma Elbow/Forearm ROM WFL Yes Wrist Goniometric Range of Motion Wrist girma Wrist ROM WFL Yes Hip Goniometric Range of Motion Hip girma Hip ROM WFL Yes Knee Goniometric Range of Motion Knee girma Knee ROM WFL Yes Ankle and Foot Goniometric Range of Motion Ankle and Foot girma Ankle/Foot ROM WFL Yes PT-OP-M Strength Start: 01/05/19 16:21 Freq: Status: Active Protocol: Document 11/16/19 12:44 [facility] (Rec: 11/16/19 13:30 [facility] [id number]) Hip Strength Hip Manual Muscle Testing Left Flexion (L2) 4- Good- Extension (S1) 3- Fair- Abduction 3- Fair- Adduction 4- Good- Right Flexion (L2) 4- Good- Extension (S1) 4- Good- Abduction 4- Good- Adduction 4- Good- Comments not tested due to fatigue Knee Strength Knee Manual Muscle Testing Left Flexion (S2) 4- Good- Extension (L3) 4- Good- Right Flexion (S2) 4 Good Extension (L3) 4 Good Ankle/Foot Strength Ankle and Foot Manual Muscle Testing Left Dorsiflexion (L4) 4- Good- Plantarflexion (S1) 3+ Fair+ Right Dorsiflexion (L4) 4 Good Plantarflexion (S1) 4 Good PT-OP-Q Treatments Start: 01/05/19 16:21 Freq: Status: Active Protocol: Document 01/24/20 11:23 SAK (Rec: 01/24/20 12:08 SAK [id number]) Gym Equipment Shuttle Recovery Unilateral Squats Resistance 25 Shuttle Recovery Platform Stable Reps/Time 10x Bilateral Squats Resistance 50 Shuttle Recovery Platform Stable Reps/Time 10x2 Shuttle Balance 1 Details red Reps/Duration 3 min x 2 Comments staggered feet balance and weight shift, UE support as needed (gait belt on safety- CGA), frequent LOB Therapeutic Exercises Supine Exercises pec stretch Reps/Minutes 2x30 Standing Exercises posture press Reps/Minutes 1 min Therapeutic Activity Therapeutic Activity deep breathing Name alternating abdominal and chest Reps/Minutes 1 min x 3 Gait Training Gait Activity gait Comments 2 min walk test x 2. (only second one timed); 310'. PT-OP-S Aquatic Treatment Start: 01/05/19 16:21 Freq: Status: Active Protocol: Document 04/18/19 11:00 LJ (Rec: 04/18/19 16:09 LJ [id number]) Aquatics Treatment Pool Entry/Exit Pool Entry/Exit Method Stairs Assistance Standby Assistance,Verbal Cues Water Walking Monster Walk Water Level Chest Level Level of Assistance Verbal Cues Comments slow pace Marching Water Level Chest Level Level of Assistance Verbal Cues Comments slow pace Sideways Water Level Chest Level Level of Assistance Standby Assistance,Verbal Cues Comments slow pace Forwards Water Level Chest Level Level of Assistance Standby Assistance,Verbal Cues Comments slow pace Lower Extremity Exercises hip flex/ext, ab/ad, circles Body Position Standing Water Level Waist Level Reps/Duration 10 ea Comments gentle side to side weight-shifts Body Position Standing Water Level Chest Level Reps/Duration 10x squats Body Position Standing Water Level Chest Level Reps/Duration 10x Lower Extremity Stretches hip flexor Body Position Standing Water Level Waist Level Equipment Small Noodle Reps/Duration 2x30 Comments at wall quads Body Position Standing Water Level Waist Level Equipment Small Noodle Comments at wall HC Body Position Standing Water Level Waist Level Equipment Small Noodle Reps/Duration 2x30 Comments toes on wall HS Body Position Standing Water Level Waist Level Reps/Duration 2x30 Upper Extremity Exercises flex/ext, ab/ad, horiz ab/ad Body Position Sitting Water Level Neck Level Reps/Duration 10 each direction Comments braced at wall, focus on core stability Spinal Exercises stretch cord resisted walking Body Position Standing Water Level Chest Level Reps/Duration 2 steps 4x each direction Comments stabilizing with mvmt stretch cord rotations Body Position Standing Water Level Chest Level Reps/Duration 8 each direction PT-OP-T Assessment and Plan Start: 01/05/19 16:21 Freq: Status: Active Protocol: Document 01/24/20 11:23 [facility] (Rec: 01/24/20 12:08 [facility] [id number]) Physical Therapy Assessment Goals Three Impairment strength Shelver Goal (LTG) Establish well-tolerated aquatic exercise program and HEP focused on strengthening and balance for patient with patient demonstrated independence and compliance and demonstrate good knowledge of how to modify depending on symptoms. 06/22/19: goal progress 08/16/19: decline in LE strength left side, will need modification. Patient lost written HEP during move, and stress of move didn't allow her to exercise. LTG Duration 01/15/20 Two Impairment balance Short Term Goal (STG) Complete objective balance testing for baseline measurements 06/06/19: goal progress 06/22/19: further testing reveals good balance, cane required more for fatigue 11/16/19: decline in balance noted with SLS and tandem stand today, denies any falls. Assisted Goal (LTG) Patient to be safe and independent with gait on level and uneven surfaces with least restrictive device, and have no reported falls. Will be compliant with recommendations for home safety. 06/22/19: patient currently using single point cane for gait. Feel she would benefit from use of 4WW in the community to allow her to rest when needed, but she is resistant to this at this time . 06/06/19: good goal progress 11/16/19: patient now using 4WW in community as recommended previously due to decline in strength and activity tolerance. Decreased foot clearance with gait noted today which increases fall risk. Will need addition and modification to HEP. LTG Duration 01/15/20 One Impairment activity tolerance Short Term Goal (STG) instruct in energy conservation and pacing 06/06/19: goal met STG Duration MET Assisted Goal (LTG) Patient to demonstrate good understanding and compliance with energy conservation and pacing of activities. 06/22/19: good goal progress 11/16/19: due to decline in strength and function, needs further education and modification LTG Duration 01/15/20 Assessment Summary Assessment 310' 2 min walk. Able to ambulate with straight cane, increased energy level today. Patient sees accupuncturist . Physical Therapy Plan Frequency and Duration Frequency of Treatment 1x/Week Duration of Treatment 12 wks Plan of Care Start Date 11/16/19 Plan of Care End Date 01/15/20 Therapeutic Interventions Therapeutic Interventions Aquatic Therapy,Balance Training,Coordination Training ,Gait Training,Home Exercise Program,Neuromuscular Re- education,Self-Care/Home Management,Therapeutic Activities,Therapeutic Exercises
--- NOTE | 2020-01-24 16:28 | PT.OTRE ---
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) Muscle weakness (generalized) (01/24/20) Past Medical History (Last Reviewed 01/19/20 @ 14:13 by Fabian Lagos MD) Abdominal pain (Acute) Activity intolerance (Acute) Atypical chest pain (Inactive) Cervical dystonia (Chronic 1986) Chicken pox (Resolved 1956) Cholecystectomy planned (Resolved) Colon polyps (Resolved) Cough (Inactive) CTS (carpal tunnel syndrome) (Resolved 1986) Denervation of muscle (Resolved) Depression (Chronic 1974) Diastasis of rectus abdominis (08/07/15) Dyspnea (Inactive) Dyspnea on exertion (Acute) Episodic lightheadedness (Inactive) Fatigue (Acute) Gastritis (Inactive) Generalized abdominal pain (08/07/15) Hyperlipidemia (Chronic) Hypertension (Chronic) Itch of skin (Inactive) Measles (Resolved 1957) Metallic taste (10/11/15) Mumps (Resolved 1958) Neoplasm of uncertain behavior of skin (10/11/15) NSAID induced gastritis (Inactive) Peripheral neuropathy (Chronic 2012) Piriformis syndrome of right side (Inactive) Progressive neurological disorder (Inactive) Right hip pain (Inactive) Shortness of breath (08/27/15) Sjogren's syndrome (Chronic 2012) Skin cancer (Resolved 2015) Sleep apnea (Chronic 2009) Small fiber polyneuropathy (Acute) SOB (shortness of breath) (Chronic 2010) Status post DANILO-BSO (Resolved) Visual disturbance (Inactive) Surgical History (Last Reviewed 01/19/20 @ 14:13 by Fabian Lagos MD) Anesthesia complication (Resolved) History of carpal tunnel repair (Resolved 1989) History of cervical spinal surgery (Resolved 07/2008) History of laparoscopic cholecystectomy (Resolved 2006) S/P DANILO-BSO (total abdominal hysterectomy and bilateral salpingo-oophorectomy) (Resolved 01/2007) Status post hernia repair (Resolved 2013) Status post hernia repair (Resolved 2007) Visit Care Team Role Provider Type JENAE Mark Family Provider Advanced Prisoner Classification Interviewer Primary Care Provider Specialty: Family Practice Address: [address] [place] [address], [id number] Email: [email or web address] Julian Meza MD Attending Provider Non-Staff Specialty: Neurology Address: [address], [place], [address] Email: Physical Therapy Re-Evaluation PT-OP-A Visit Information Start: 01/05/19 16:21 Freq: Status: Active Protocol: Document 01/24/20 11:23 SAK (Rec: 01/24/20 12:08 SAK [id number]) Out-Patient Physical Therapy Visit Information Visit Information Visit Type Treatment Note Visit Start Time 11:20 Visit Stop Time 12:02 Total Visit Minutes 42 Visit Number 27 PT-OP-B Current Condition Start: 01/05/19 16:21 Freq: Status: Active Protocol: Document 01/06/19 12:57 SAK (Rec: 01/06/19 13:25 SAK [id number]) Current Condition History of Current Condition Onset Date 4 yrs Current Complaints LE weakness and achiness, SOB History of Current Condition Gradual progressive weakness, started using cane May 2017. Has been seeing specialists and having tests with diagnosis of possible indeterminate type of muscular dystrophy. Also reports exercise intolerance with SOB, increasing fatigue, need for much slower pace. The more I do the worse I feel . Hoping to see if she can establish an exercise program that will not exhaust her. Requesting possible aquatic therapy. Difficulty getting out of chairs, off floor. 2018 8-10 falls, this year being more careful, last fall was in July. Has not suffererd injury. Started Prednisone yesterday 15 mg. Prior experience with Prednisone caused migraine; has headache but not migraine. LE weakness symmetrical, no numbness or tingling. With falls, reports usually [address] Frequently uses cane or walker. No dizziness. BP well-managed. Uses electric tricycle. Has recumbant exercise bike, reports not using, has tendency to overdo. 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 Stool in shower, can dress self. Trip to [place] next week, has anxiety about being able to tolerate. Prior Treatments and Tests muscle biopsy negative [facility] neurologist States MS and ALS ruled out as diagnoses. Future Testing and Treatments Planned Spoke today with Claudy Sotelo, doctor inclusion body myositis specialist at [facility] in [place]; has February 16 appointment Patient reports a second muscle biopsy recommended by [facility] physician Treatment Goals Patient/Caregiver Goals Improve strength/maintain, establish exercise program. Hoping for aquatic therapy. Had difficulty getting in/out of pool and felt uncoordinated last time in pool. Knows how to swim, but body has changed and it felt very difficult. Prior Functional Status Baseline Function- ADL's Independent Baseline Function- Mobility Independent Baseline Function- Gait independent without device Baseline Function- Work/School retired Baseline Function- Recreation/Hobbies walk, bike, hike Current Functional Impairments (Reported) Functional Limitations- ADL's slow, fatiguing Functional Limitations- Mobility/Gait very limited with c/o SOB, frequent rest breaks Functional Limitations- Work/School retired Functional Limitations- Recreation/ unable except has electric Hobbies tricycle PT-OP-C Subjective Start: 01/05/19 16:21 Freq: Status: Active Protocol: Document 01/24/20 11:23 SAK (Rec: 01/24/20 12:08 [facility] [id number]) OP-PT Subjective Patient Comments Patient Comments 01/15/20 in ER, started on Augmentum due to diverticulitis, just finished medicine 01/22/20. Stayed mostly in bed for 1 week. Reports feeling better past couple days, able to ambulate with cane, energy a little better. Thinks accunpuncture helpful as well as possibly the antibiotic. PT-OP-D Balance Start: 01/05/19 16:21 Freq: Status: Active Protocol: Document 06/06/19 08:59 SAK (Rec: 06/06/19 13:50 [facility] [id number]) Balance Tests Sheth Balance Test Sheth Balance Test Score 53 Sheth Impairment Rating 1 to 19% Impaired (Score 45-55 ) PT-OP-E Functional Tests Start: 01/05/19 16:21 Freq: Status: Active Protocol: Document 07/20/19 09:01 SAK (Rec: 07/20/19 10:00 SAK [id number]) Functional Tests 6 Minute Walk Test Comments not done due to fatigue PT-OP-G Mobility & Gait Start: 01/05/19 16:21 Freq: Status: Active Protocol: Document 07/04/19 11:54 SP (Rec: 07/04/19 11:56 SP [id number]) OP Mobility Evaluation Bed Mobility Rolling I Supine to and from Sit I Transfers Sit to Stand Indep, no hands initially. Requires use of hands with fatigue PT-OP-H Neuro Start: 01/05/19 16:21 Freq: Status: Active Protocol: Document 06/06/19 08:59 SAK (Rec: 06/06/19 13:50 SAK [id number]) Sensation Evaluation Gross Sensation Gross Sensation WNL PT-OP-J Posture/Palpation/Skin Start: 01/05/19 16:21 Freq: Status: Active Protocol: Document 01/06/19 12:57 SAK (Rec: 01/09/19 12:55 [facility] [id number]) Skin Assessment Other Assessments Skin Assessment Comments intact, no edema or brusing evident PT-OP-K Range of Motion Start: 01/05/19 16:21 Freq: Status: Active Protocol: Document 01/06/19 12:57 SAK (Rec: 01/09/19 12:55 [facility] [id number]) Cervical Spine Range of Motion Cervical Spine Active Comments WNL Lumbar Spine Range of Motion Lumbar Spine Active Comments WNL Shoulder Goniometric Range of Motion Shoulder Measured in Degrees left Shoulder ROM WFL Yes right Shoulder ROM WFL Yes Elbow/Forearm Range of Motion Elbow/Forearm Measured in Degrees girma Elbow/Forearm ROM WFL Yes Wrist Goniometric Range of Motion Wrist Measured in Degrees girma Wrist ROM WFL Yes Hip Goniometric Range of Motion Hip Measured in Degrees girma Hip ROM WFL Yes Knee Goniometric Range of Motion Knee Measured in Degrees girma Knee ROM WFL Yes Ankle and Foot Goniometric Range of Motion Ankle and Foot Measured in Degrees girma Ankle/Foot ROM WFL Yes PT-OP-M Strength Start: 01/05/19 16:21 Freq: Status: Active Protocol: Document 11/16/19 12:44 SAK (Rec: 11/16/19 13:30 SAK [id number]) Hip Strength Hip Manual Muscle Testing Left Flexion (L2) 4- Good- Extension (S1) 3- Fair- Abduction 3- Fair- Adduction 4- Good- Right Flexion (L2) 4- Good- Extension (S1) 4- Good- Abduction 4- Good- Adduction 4- Good- Comments not tested due to fatigue Knee Strength Knee Manual Muscle Testing Left Flexion (S2) 4- Good- Extension (L3) 4- Good- Right Flexion (S2) 4 Good Extension (L3) 4 Good Ankle/Foot Strength Ankle and Foot Manual Muscle Testing Left Dorsiflexion (L4) 4- Good- Plantarflexion (S1) 3+ Fair+ Right Dorsiflexion (L4) 4 Good Plantarflexion (S1) 4 Good PT-OP-Q Treatments Start: 01/05/19 16:21 Freq: Status: Active Protocol: Document 01/24/20 11:23 [facility] (Rec: 01/24/20 12:08 [facility] [id number]) Gym Equipment Shuttle Recovery Unilateral Squats Resistance 25 Shuttle Recovery Platform Stable Reps/Time 10x Bilateral Squats Resistance 50 Shuttle Recovery Platform Stable Reps/Time 10x2 Shuttle Balance 1 Details red Reps/Duration 3 min x 2 Comments staggered feet balance and weight shift, UE support as needed (gait belt on safety- CGA), frequent LOB Therapeutic Exercises Supine Exercises pec stretch Reps/Minutes 2x30 Standing Exercises posture press Reps/Minutes 1 min Therapeutic Activity Therapeutic Activity deep breathing Name alternating abdominal and chest Reps/Minutes 1 min x 3 Gait Training Gait Activity gait Comments 2 min walk test x 2. (only second one timed); 310'. PT-OP-T Assessment and Plan Start: 01/05/19 16:21 Freq: Status: Active Protocol: Document 01/24/20 11:23 [facility] (Rec: 01/24/20 12:08 [facility] [id number]) Physical Therapy Assessment Goals Three Impairment strength Fci Goal (LTG) Establish well-tolerated aquatic exercise program and HEP focused on strengthening and balance for patient with patient demonstrated independence and compliance and demonstrate good knowledge of how to modify depending on symptoms. 06/22/19: goal progress 08/16/19: decline in LE strength left side, will need modification. Patient lost written HEP during move, and stress of move didn't allow her to exercise. 01/24/20: Patient has written ex for supine, sitting, and standing depending on how she is doing and what she feels she can tolerate any given day . Has been trying to walk most days. LTG Duration 04/25/20 Two Impairment balance Short Term Goal (STG) Complete objective balance testing for baseline measurements 06/06/19: goal progress 06/22/19: further testing reveals good balance, cane required more for fatigue 11/16/19: decline in balance noted with SLS and tandem stand today, denies any falls. Sculpture Instructor Goal (LTG) Patient to be safe and independent with gait on level and uneven surfaces with least restrictive device, and have no reported falls. Will be compliant with recommendations for home safety. 06/22/19: patient currently using single point cane for gait. Feel she would benefit from use of 4WW in the community to allow her to rest when needed, but she is resistant to this at this time . 06/06/19: good goal progress 11/16/19: patient now using 4WW in community as recommended previously due to decline in strength and activity tolerance. Decreased foot clearance with gait noted today which increases fall risk. Will need addition and modification to HEP. 01/24/20: Patient has been ambulating with 4WW primarily, although today able to ambulate with straight cane for first time in weeks. She attributes this to possibly taking antibiotics. LTG Duration 04/25/20 One Impairment activity tolerance Short Term Goal (STG) instruct in energy conservation and pacing 06/06/19: goal met STG Duration MET Sculpture Instructor Goal (LTG) Patient to demonstrate good understanding and compliance with energy conservation and pacing of activities. 06/22/19: good goal progress 11/16/19: due to decline in strength and function, needs further education and modification 04/25/20: continues to require modification due to variability of patient's energy level and activity tolerance. Today her activity tolerance was increased to her max of 310' on 2 min walk test. LTG Duration 04/25/20 Assessment Summary Assessment 310' 2 min walk. Able to ambulate with straight cane for first time in weeks, increased energy level today. Patient attributes the improvement today to possibly both antibiotics as well as accupuncture. Patient sees accupuncturist again 08/26/19. Would benefit from further PT to address above goals for improved gait, balance, activity tolerance, and HEP instruction Physical Therapy Plan Frequency and Duration Frequency of Treatment 1x/Week Duration of Treatment 12 wks Plan of Care Start Date 11/16/19 Plan of Care End Date 01/15/20 Therapeutic Interventions Therapeutic Interventions Aquatic Therapy,Balance Training,Coordination Training ,Gait Training,Home Exercise Program,Neuromuscular Re- education,Self-Care/Home Management,Therapeutic Activities,Therapeutic Exercises Next Visit Focus/Plan Next Note Type Treatment Note Next Visit Plan Progress ther ex as tolerated, with adjustments to HEP as indicated.
--- NOTE | 2020-01-24 16:32 | PT.OTRE ---
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) Muscle weakness (generalized) (01/24/20) Past Medical History (Last Reviewed 01/19/20 @ 14:13 by Fabian Lagos MD) Abdominal pain (Acute) Activity intolerance (Acute) Atypical chest pain (Inactive) Cervical dystonia (Chronic 1986) Chicken pox (Resolved 1956) Cholecystectomy planned (Resolved) Colon polyps (Resolved) Cough (Inactive) CTS (carpal tunnel syndrome) (Resolved 1986) Denervation of muscle (Resolved) Depression (Chronic 1974) Diastasis of rectus abdominis (08/07/15) Dyspnea (Inactive) Dyspnea on exertion (Acute) Episodic lightheadedness (Inactive) Fatigue (Acute) Gastritis (Inactive) Generalized abdominal pain (08/07/15) Hyperlipidemia (Chronic) Hypertension (Chronic) Itch of skin (Inactive) Measles (Resolved 1957) Metallic taste (10/11/15) Mumps (Resolved 1958) Neoplasm of uncertain behavior of skin (10/11/15) NSAID induced gastritis (Inactive) Peripheral neuropathy (Chronic 2012) Piriformis syndrome of right side (Inactive) Progressive neurological disorder (Inactive) Right hip pain (Inactive) Shortness of breath (08/27/15) Sjogren's syndrome (Chronic 2012) Skin cancer (Resolved 2015) Sleep apnea (Chronic 2009) Small fiber polyneuropathy (Acute) SOB (shortness of breath) (Chronic 2010) Status post DANILO-BSO (Resolved) Visual disturbance (Inactive) Surgical History (Last Reviewed 01/19/20 @ 14:13 by Fabian Lagos MD) Anesthesia complication (Resolved) History of carpal tunnel repair (Resolved 1989) History of cervical spinal surgery (Resolved 07/2008) History of laparoscopic cholecystectomy (Resolved 2006) S/P DANILO-BSO (total abdominal hysterectomy and bilateral salpingo-oophorectomy) (Resolved 01/2007) Status post hernia repair (Resolved 2013) Status post hernia repair (Resolved 2007) Visit Care Team Role Provider Type JENAE Mark Family Provider Advanced Aircraft Structural Repairer Primary Care Provider Specialty: Family Practice Address: [address] [place] [address], [id number] Email: [email or web address] Julian Meza MD Attending Provider Non-Staff Specialty: Neurology Address: [address], [place], [address] Email: Physical Therapy Re-Evaluation PT-OP-A Visit Information Start: 01/05/19 16:21 Freq: Status: Active Protocol: Document 01/24/20 11:23 SAK (Rec: 01/24/20 12:08 SAK [id number]) Out-Patient Physical Therapy Visit Information Visit Information Visit Type Treatment Note Visit Start Time 11:20 Visit Stop Time 12:02 Total Visit Minutes 42 Visit Number 27 PT-OP-B Current Condition Start: 01/05/19 16:21 Freq: Status: Active Protocol: Document 01/06/19 12:57 SAK (Rec: 01/06/19 13:25 SAK [id number]) Current Condition History of Current Condition Onset Date 4 yrs Current Complaints LE weakness and achiness, SOB History of Current Condition Gradual progressive weakness, started using cane May 2017. Has been seeing specialists and having tests with diagnosis of possible indeterminate type of muscular dystrophy. Also reports exercise intolerance with SOB, increasing fatigue, need for much slower pace. The more I do the worse I feel . Hoping to see if she can establish an exercise program that will not exhaust her. Requesting possible aquatic therapy. Difficulty getting out of chairs, off floor. 2018 8-10 falls, this year being more careful, last fall was in July. Has not suffererd injury. Started Prednisone yesterday 15 mg. Prior experience with Prednisone caused migraine; has headache but not migraine. LE weakness symmetrical, no numbness or tingling. With falls, reports usually [address] Frequently uses cane or walker. No dizziness. BP well-managed. Uses electric tricycle. Has recumbant exercise bike, reports not using, has tendency to overdo. 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 Stool in shower, can dress self. Trip to [place] next week, has anxiety about being able to tolerate. Prior Treatments and Tests muscle biopsy negative [facility] neurologist States MS and ALS ruled out as diagnoses. Future Testing and Treatments Planned Spoke today with Claudy Sotelo, doctor inclusion body myositis specialist at [facility] in [place]; has February 16 appointment Patient reports a second muscle biopsy recommended by [facility] physician Treatment Goals Patient/Caregiver Goals Improve strength/maintain, establish exercise program. Hoping for aquatic therapy. Had difficulty getting in/out of pool and felt uncoordinated last time in pool. Knows how to swim, but body has changed and it felt very difficult. Prior Functional Status Baseline Function- ADL's Independent Baseline Function- Mobility Independent Baseline Function- Gait independent without device Baseline Function- Work/School retired Baseline Function- Recreation/Hobbies walk, bike, hike Current Functional Impairments (Reported) Functional Limitations- ADL's slow, fatiguing Functional Limitations- Mobility/Gait very limited with c/o SOB, frequent rest breaks Functional Limitations- Work/School retired Functional Limitations- Recreation/ unable except has electric Hobbies tricycle PT-OP-C Subjective Start: 01/05/19 16:21 Freq: Status: Active Protocol: Document 01/24/20 11:23 SAK (Rec: 01/24/20 12:08 [facility] [id number]) OP-PT Subjective Patient Comments Patient Comments 01/15/20 in ER, started on Augmentum due to diverticulitis, just finished medicine 01/22/20. Stayed mostly in bed for 1 week. Reports feeling better past couple days, able to ambulate with cane, energy a little better. Thinks accunpuncture helpful as well as possibly the antibiotic. PT-OP-D Balance Start: 01/05/19 16:21 Freq: Status: Active Protocol: Document 06/06/19 08:59 SAK (Rec: 06/06/19 13:50 [facility] [id number]) Balance Tests Sheth Balance Test Hseth Balance Test Score 53 Sheth Impairment Rating 1 to 19% Impaired (Score 45-55 ) PT-OP-E Functional Tests Start: 01/05/19 16:21 Freq: Status: Active Protocol: Document 07/20/19 09:01 SAK (Rec: 07/20/19 10:00 SAK [id number]) Functional Tests 6 Minute Walk Test Comments not done due to fatigue PT-OP-G Mobility & Gait Start: 01/05/19 16:21 Freq: Status: Active Protocol: Document 07/04/19 11:54 SP (Rec: 07/04/19 11:56 SP [id number]) OP Mobility Evaluation Bed Mobility Rolling I Supine to and from Sit I Transfers Sit to Stand Indep, no hands initially. Requires use of hands with fatigue PT-OP-H Neuro Start: 01/05/19 16:21 Freq: Status: Active Protocol: Document 06/06/19 08:59 SAK (Rec: 06/06/19 13:50 SAK [id number]) Sensation Evaluation Gross Sensation Gross Sensation WNL PT-OP-J Posture/Palpation/Skin Start: 01/05/19 16:21 Freq: Status: Active Protocol: Document 01/06/19 12:57 SAK (Rec: 01/09/19 12:55 [facility] [id number]) Skin Assessment Other Assessments Skin Assessment Comments intact, no edema or brusing evident PT-OP-K Range of Motion Start: 01/05/19 16:21 Freq: Status: Active Protocol: Document 01/06/19 12:57 SAK (Rec: 01/09/19 12:55 [facility] [id number]) Cervical Spine Range of Motion Cervical Spine Active Comments WNL Lumbar Spine Range of Motion Lumbar Spine Active Comments WNL Shoulder Goniometric Range of Motion Shoulder Measured in Degrees left Shoulder ROM WFL Yes right Shoulder ROM WFL Yes Elbow/Forearm Range of Motion Elbow/Forearm Measured in Degrees girma Elbow/Forearm ROM WFL Yes Wrist Goniometric Range of Motion Wrist Measured in Degrees girma Wrist ROM WFL Yes Hip Goniometric Range of Motion Hip Measured in Degrees girma Hip ROM WFL Yes Knee Goniometric Range of Motion Knee Measured in Degrees girma Knee ROM WFL Yes Ankle and Foot Goniometric Range of Motion Ankle and Foot Measured in Degrees girma Ankle/Foot ROM WFL Yes PT-OP-M Strength Start: 01/05/19 16:21 Freq: Status: Active Protocol: Document 11/16/19 12:44 SAK (Rec: 11/16/19 13:30 SAK [id number]) Hip Strength Hip Manual Muscle Testing Left Flexion (L2) 4- Good- Extension (S1) 3- Fair- Abduction 3- Fair- Adduction 4- Good- Right Flexion (L2) 4- Good- Extension (S1) 4- Good- Abduction 4- Good- Adduction 4- Good- Comments not tested due to fatigue Knee Strength Knee Manual Muscle Testing Left Flexion (S2) 4- Good- Extension (L3) 4- Good- Right Flexion (S2) 4 Good Extension (L3) 4 Good Ankle/Foot Strength Ankle and Foot Manual Muscle Testing Left Dorsiflexion (L4) 4- Good- Plantarflexion (S1) 3+ Fair+ Right Dorsiflexion (L4) 4 Good Plantarflexion (S1) 4 Good PT-OP-Q Treatments Start: 01/05/19 16:21 Freq: Status: Active Protocol: Document 01/24/20 11:23 [facility] (Rec: 01/24/20 12:08 [facility] [id number]) Gym Equipment Shuttle Recovery Unilateral Squats Resistance 25 Shuttle Recovery Platform Stable Reps/Time 10x Bilateral Squats Resistance 50 Shuttle Recovery Platform Stable Reps/Time 10x2 Shuttle Balance 1 Details red Reps/Duration 3 min x 2 Comments staggered feet balance and weight shift, UE support as needed (gait belt on safety- CGA), frequent LOB Therapeutic Exercises Supine Exercises pec stretch Reps/Minutes 2x30 Standing Exercises posture press Reps/Minutes 1 min Therapeutic Activity Therapeutic Activity deep breathing Name alternating abdominal and chest Reps/Minutes 1 min x 3 Gait Training Gait Activity gait Comments 2 min walk test x 2. (only second one timed); 310'. PT-OP-T Assessment and Plan Start: 01/05/19 16:21 Freq: Status: Active Protocol: Document 01/24/20 11:23 [facility] (Rec: 01/24/20 12:08 [facility] [id number]) Physical Therapy Assessment Goals Three Impairment strength Long-Term Goal (LTG) Establish well-tolerated aquatic exercise program and HEP focused on strengthening and balance for patient with patient demonstrated independence and compliance and demonstrate good knowledge of how to modify depending on symptoms. 06/22/19: goal progress 08/16/19: decline in LE strength left side, will need modification. Patient lost written HEP during move, and stress of move didn't allow her to exercise. 01/24/20: Patient has written ex for supine, sitting, and standing depending on how she is doing and what she feels she can tolerate any given day . Has been trying to walk most days. LTG Duration 04/25/20 Two Impairment balance Short Term Goal (STG) Complete objective balance testing for baseline measurements 06/06/19: goal progress 06/22/19: further testing reveals good balance, cane required more for fatigue 11/16/19: decline in balance noted with SLS and tandem stand today, denies any falls. Equipment Maintenance Superintendent Goal (LTG) Patient to be safe and independent with gait on level and uneven surfaces with least restrictive device, and have no reported falls. Will be compliant with recommendations for home safety. 06/22/19: patient currently using single point cane for gait. Feel she would benefit from use of 4WW in the community to allow her to rest when needed, but she is resistant to this at this time . 06/06/19: good goal progress 11/16/19: patient now using 4WW in community as recommended previously due to decline in strength and activity tolerance. Decreased foot clearance with gait noted today which increases fall risk. Will need addition and modification to HEP. 01/24/20: Patient has been ambulating with 4WW primarily, although today able to ambulate with straight cane for first time in weeks. She attributes this to possibly taking antibiotics. LTG Duration 04/25/20 One Impairment activity tolerance Short Term Goal (STG) instruct in energy conservation and pacing 06/06/19: goal met STG Duration MET Equipment Maintenance Superintendent Goal (LTG) Patient to demonstrate good understanding and compliance with energy conservation and pacing of activities. 06/22/19: good goal progress 11/16/19: due to decline in strength and function, needs further education and modification 04/25/20: continues to require modification due to variability of patient's energy level and activity tolerance. Today her activity tolerance was increased to her max of 310' on 2 min walk test. LTG Duration 04/25/20 Assessment Summary Assessment 310' 2 min walk. Able to ambulate with straight cane for first time in weeks, increased energy level today. Patient attributes the improvement today to possibly both antibiotics as well as accupuncture. Patient sees accupuncturist again 08/26/19. Would benefit from further PT to address above goals for improved gait, balance, activity tolerance, and HEP instruction Physical Therapy Plan Frequency and Duration Frequency of Treatment 1x/Week Duration of Treatment 12 wks Plan of Care Start Date 01/24/20 Plan of Care End Date 04/25/20 Therapeutic Interventions Therapeutic Interventions Aquatic Therapy,Balance Training,Coordination Training ,Gait Training,Home Exercise Program,Neuromuscular Re- education,Self-Care/Home Management,Therapeutic Activities,Therapeutic Exercises Next Visit Focus/Plan Next Note Type Treatment Note Next Visit Plan Progress ther ex as tolerated, with adjustments to HEP as indicated.
--- NOTE | 2020-01-24 16:32 | PT.OPPOC ---
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) Muscle weakness (generalized) (01/24/20) Visit Care Team Role Provider Type JENAE Mark Family Provider Advanced Porter Baggage Primary Care Provider Specialty: Family Practice Address: [address] [place] [address], [address] Email: [email or web address] Julian Meza MD Attending Provider Non-Staff Specialty: Neurology Address: [address] [place], [address] Email: Plan Of Care PT-OP-T Assessment and Plan Start: 01/05/19 16:21 Freq: Status: Active Protocol: Document 01/24/20 11:23 [facility] (Rec: 01/24/20 12:08 [facility] [id number]) Physical Therapy Assessment Goals Three Impairment strength Electronics Hardware Design Engineer Goal (LTG) Establish well-tolerated aquatic exercise program and HEP focused on strengthening and balance for patient with patient demonstrated independence and compliance and demonstrate good knowledge of how to modify depending on symptoms. 06/22/19: goal progress 08/16/19: decline in LE strength left side, will need modification. Patient lost written HEP during move, and stress of move didn't allow her to exercise. 01/24/20: Patient has written ex for supine, sitting, and standing depending on how she is doing and what she feels she can tolerate any given day . Has been trying to walk most days. LTG Duration 04/25/20 Two Impairment balance Short Term Goal (STG) Complete objective balance testing for baseline measurements 06/06/19: goal progress 06/22/19: further testing reveals good balance, cane required more for fatigue 11/16/19: decline in balance noted with SLS and tandem stand today, denies any falls. Correction Goal (LTG) Patient to be safe and independent with gait on level and uneven surfaces with least restrictive device, and have no reported falls. Will be compliant with recommendations for home safety. 06/22/19: patient currently using single point cane for gait. Feel she would benefit from use of 4WW in the community to allow her to rest when needed, but she is resistant to this at this time . 06/06/19: good goal progress 11/16/19: patient now using 4WW in community as recommended previously due to decline in strength and activity tolerance. Decreased foot clearance with gait noted today which increases fall risk. Will need addition and modification to HEP. 01/24/20: Patient has been ambulating with 4WW primarily, although today able to ambulate with straight cane for first time in weeks. She attributes this to possibly taking antibiotics. LTG Duration 04/25/20 One Impairment activity tolerance Short Term Goal (STG) instruct in energy conservation and pacing 06/06/19: goal met STG Duration MET Correction Goal (LTG) Patient to demonstrate good understanding and compliance with energy conservation and pacing of activities. 06/22/19: good goal progress 11/16/19: due to decline in strength and function, needs further education and modification 04/25/20: continues to require modification due to variability of patient's energy level and activity tolerance. Today her activity tolerance was increased to her max of 310' on 2 min walk test. LTG Duration 04/25/20 Assessment Summary Assessment 310' 2 min walk. Able to ambulate with straight cane for first time in weeks, increased energy level today. Patient attributes the improvement today to possibly both antibiotics as well as accupuncture. Patient sees accupuncturist again 08/26/19. Would benefit from further PT to address above goals for improved gait, balance, activity tolerance, and HEP instruction Physical Therapy Plan Frequency and Duration Frequency of Treatment 1x/Week Duration of Treatment 12 wks Plan of Care Start Date 01/24/20 Plan of Care End Date 04/25/20 Therapeutic Interventions Therapeutic Interventions Aquatic Therapy,Balance Training,Coordination Training ,Gait Training,Home Exercise Program,Neuromuscular Re- education,Self-Care/Home Management,Therapeutic Activities,Therapeutic Exercises Next Visit Focus/Plan Next Note Type Treatment Note Next Visit Plan Progress ther ex as tolerated, with adjustments to HEP as indicated. Plan of Care Dates Plan of Care Start Date 01/24/20 Plan of Care End Date 04/25/20 Electronically Signed by: Sydnie Clark, PT 01/26/20 [id number] Please Sign and Return: I have reviewed this Plan of Care and certify that the skilled therapy services above are required to meet the patient?s needs. Physician Signature Date Printed Name and Credentials Clinical Instructor Signature Printed Name and Credentials
--- NOTE | 2020-01-30 09:46 | PT.OTN ---
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) Muscle weakness (generalized) (01/30/20) Physical Therapy Treatment Note PT-OP-A Visit Information Start: 01/05/19 16:21 Freq: Status: Active Protocol: Document 01/30/20 09:00 SAK (Rec: 01/30/20 09:45 SAK [id number]) Out-Patient Physical Therapy Visit Information Visit Information Visit Type Treatment Note Visit Start Time 09:00 Visit Stop Time 09:45 Total Visit Minutes 45 Visit Number 28 PT-OP-B Current Condition Start: 01/05/19 16:21 Freq: Status: Active Protocol: Document 01/06/19 12:57 SAK (Rec: 01/06/19 13:25 SAK [id number]) Current Condition History of Current Condition Onset Date 4 yrs Current Complaints LE weakness and achiness, SOB History of Current Condition Gradual progressive weakness, started using cane May 2017. Has been seeing specialists and having tests with diagnosis of possible indeterminate type of muscular dystrophy. Also reports exercise intolerance with SOB, increasing fatigue, need for much slower pace. The more I do the worse I feel . Hoping to see if she can establish an exercise program that will not exhaust her. Requesting possible aquatic therapy. Difficulty getting out of chairs, off floor. 2018 8-10 falls, this year being more careful, last fall was in July. Has not suffererd injury. Started Prednisone yesterday 15 mg. Prior experience with Prednisone caused migraine; has headache but not migraine. LE weakness symmetrical, no numbness or tingling. With falls, reports usually [address] Frequently uses cane or walker. No dizziness. BP well-managed. Uses electric tricycle. Has recumbant exercise bike, reports not using, has tendency to overdo. 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 Stool in shower, can dress self. Trip to [place] next week, has anxiety about being able to tolerate. Prior Treatments and Tests muscle biopsy negative [facility] neurologist States MS and ALS ruled out as diagnoses. Future Testing and Treatments Planned Spoke today with Claudy Sotelo, doctor inclusion body myositis specialist at [facility] in [place]; has February 16 appointment Patient reports a second muscle biopsy recommended by [facility] physician Treatment Goals Patient/Caregiver Goals Improve strength/maintain, establish exercise program. Hoping for aquatic therapy. Had difficulty getting in/out of pool and felt uncoordinated last time in pool. Knows how to swim, but body has changed and it felt very difficult. Prior Functional Status Baseline Function- ADL's Independent Baseline Function- Mobility Independent Baseline Function- Gait independent without device Baseline Function- Work/School retired Baseline Function- Recreation/Hobbies walk, bike, hike Current Functional Impairments (Reported) Functional Limitations- ADL's slow, fatiguing Functional Limitations- Mobility/Gait very limited with c/o SOB, frequent rest breaks Functional Limitations- Work/School retired Functional Limitations- Recreation/ unable except has electric Hobbies tricycle PT-OP-C Subjective Start: 01/05/19 16:21 Freq: Status: Active Protocol: Document 01/30/20 09:00 [facility] (Rec: 01/30/20 09:45 [facility] [id number]) OP-PT Subjective Patient Comments Patient Comments Fatigued but ok after last session. Has been walking without the walker more. Walkis some in house without cane. Doesn't feel fully stable, but no giving way of her leg. Rode exercise bike 6 min x 2 since last seen.Had another accupunture session, worked on digestive issues. Didn't notice improvement in legs until yesterday. Tingling and deep aching mostly gone. States she feels better when she sleeps a little less. Finished antibiotics a week from yesterday. Takes Tumeric for anti-inflammatory PT-OP-D Balance Start: 01/05/19 16:21 Freq: Status: Active Protocol: Document 06/06/19 08:59 SAK (Rec: 06/06/19 13:50 [facility] [id number]) Balance Tests Sheth Balance Test Sheth Balance Test Score 53 Sheth Impairment Rating 1 to 19% Impaired (Score 45-55 ) PT-OP-E Functional Tests Start: 01/05/19 16:21 Freq: Status: Active Protocol: Document 07/20/19 09:01 SAK (Rec: 07/20/19 10:00 [facility] [id number]) Functional Tests 6 Minute Walk Test Comments not done due to fatigue PT-OP-G Mobility & Gait Start: 01/05/19 16:21 Freq: Status: Active Protocol: Document 07/04/19 11:54 SP (Rec: 07/04/19 11:56 SP [id number]) OP Mobility Evaluation Bed Mobility Rolling I Supine to and from Sit I Transfers Sit to Stand Indep, no hands initially. Requires use of hands with fatigue PT-OP-H Neuro Start: 01/05/19 16:21 Freq: Status: Active Protocol: Document 06/06/19 08:59 SAK (Rec: 06/06/19 13:50 SAK [id number]) Sensation Evaluation Gross Sensation Gross Sensation WNL PT-OP-J Posture/Palpation/Skin Start: 01/05/19 16:21 Freq: Status: Active Protocol: Document 01/06/19 12:57 SAK (Rec: 01/09/19 12:55 SAK [id number]) Skin Assessment Other Assessments Skin Assessment Comments intact, no edema or brusing evident PT-OP-K Range of Motion Start: 01/05/19 16:21 Freq: Status: Active Protocol: Document 01/06/19 12:57 SAK (Rec: 01/09/19 12:55 [facility] [id number]) Cervical Spine Range of Motion Cervical Spine Active Comments WNL Lumbar Spine Range of Motion Lumbar Spine Active Comments WNL Shoulder Goniometric Range of Motion Shoulder left Shoulder ROM WFL Yes right Shoulder ROM WFL Yes Elbow/Forearm Range of Motion Elbow/Forearm girma Elbow/Forearm ROM WFL Yes Wrist Goniometric Range of Motion Wrist girma Wrist ROM WFL Yes Hip Goniometric Range of Motion Hip girma Hip ROM WFL Yes Knee Goniometric Range of Motion Knee girma Knee ROM WFL Yes Ankle and Foot Goniometric Range of Motion Ankle and Foot girma Ankle/Foot ROM WFL Yes PT-OP-M Strength Start: 01/05/19 16:21 Freq: Status: Active Protocol: Document 11/16/19 12:44 SAK (Rec: 11/16/19 13:30 SAK [id number]) Hip Strength Hip Manual Muscle Testing Left Flexion (L2) 4- Good- Extension (S1) 3- Fair- Abduction 3- Fair- Adduction 4- Good- Right Flexion (L2) 4- Good- Extension (S1) 4- Good- Abduction 4- Good- Adduction 4- Good- Comments not tested due to fatigue Knee Strength Knee Manual Muscle Testing Left Flexion (S2) 4- Good- Extension (L3) 4- Good- Right Flexion (S2) 4 Good Extension (L3) 4 Good Ankle/Foot Strength Ankle and Foot Manual Muscle Testing Left Dorsiflexion (L4) 4- Good- Plantarflexion (S1) 3+ Fair+ Right Dorsiflexion (L4) 4 Good Plantarflexion (S1) 4 Good PT-OP-Q Treatments Start: 01/05/19 16:21 Freq: Status: Active Protocol: Document 01/30/20 09:00 SAK (Rec: 01/30/20 09:45 SAK [id number]) Gym Equipment Shuttle Recovery Unilateral Squats Resistance 37 Shuttle Recovery Platform Stable Reps/Time 10 (3x 25#, 7x 37# right), ( 10x 37# left) Bilateral Squats Resistance 62 Shuttle Recovery Platform Stable Reps/Time 10 (4x 50#, 6x 62#) Therapeutic Exercises Standing Exercises posture press Reps/Minutes 1 min Gait Training Gait Activity gait Comments 2 min walk test x 1: 287' with FWW Neuro Re-Education Treatment Balance Activities BOSU balance Reps/Duration 1'x1, 2'x Comments on blue side also lunges 2x each side PT-OP-S Aquatic Treatment Start: 01/05/19 16:21 Freq: Status: Active Protocol: Document 04/18/19 11:00 NATASHA (Rec: 04/18/19 16:09 LJ [id number]) Aquatics Treatment Pool Entry/Exit Pool Entry/Exit Method Stairs Assistance Standby Assistance,Verbal Cues Water Walking Monster Walk Water Level Chest Level Level of Assistance Verbal Cues Comments slow pace Marching Water Level Chest Level Level of Assistance Verbal Cues Comments slow pace Sideways Water Level Chest Level Level of Assistance Standby Assistance,Verbal Cues Comments slow pace Forwards Water Level Chest Level Level of Assistance Standby Assistance,Verbal Cues Comments slow pace Lower Extremity Exercises hip flex/ext, ab/ad, circles Body Position Standing Water Level Waist Level Reps/Duration 10 ea Comments gentle side to side weight-shifts Body Position Standing Water Level Chest Level Reps/Duration 10x squats Body Position Standing Water Level Chest Level Reps/Duration 10x Lower Extremity Stretches hip flexor Body Position Standing Water Level Waist Level Equipment Small Noodle Reps/Duration 2x30 Comments at wall quads Body Position Standing Water Level Waist Level Equipment Small Noodle Comments at wall HC Body Position Standing Water Level Waist Level Equipment Small Noodle Reps/Duration 2x30 Comments toes on wall HS Body Position Standing Water Level Waist Level Reps/Duration 2x30 Upper Extremity Exercises flex/ext, ab/ad, horiz ab/ad Body Position Sitting Water Level Neck Level Reps/Duration 10 each direction Comments braced at wall, focus on core stability Spinal Exercises stretch cord resisted walking Body Position Standing Water Level Chest Level Reps/Duration 2 steps 4x each direction Comments stabilizing with mvmt stretch cord rotations Body Position Standing Water Level Chest Level Reps/Duration 8 each direction PT-OP-T Assessment and Plan Start: 01/05/19 16:21 Freq: Status: Active Protocol: Document 01/30/20 09:00 CATARINO (Rec: 01/30/20 09:45 SAK [id number]) Physical Therapy Assessment Goals Three Impairment strength Alf Goal (LTG) Establish well-tolerated aquatic exercise program and HEP focused on strengthening and balance for patient with patient demonstrated independence and compliance and demonstrate good knowledge of how to modify depending on symptoms. 06/22/19: goal progress 08/16/19: decline in LE strength left side, will need modification. Patient lost written HEP during move, and stress of move didn't allow her to exercise. 01/24/20: Patient has written ex for supine, sitting, and standing depending on how she is doing and what she feels she can tolerate any given day . Has been trying to walk most days. LTG Duration 04/25/20 Two Impairment balance Short Term Goal (STG) Complete objective balance testing for baseline measurements 06/06/19: goal progress 06/22/19: further testing reveals good balance, cane required more for fatigue 11/16/19: decline in balance noted with SLS and tandem stand today, denies any falls. Alf Goal (LTG) Patient to be safe and independent with gait on level and uneven surfaces with least restrictive device, and have no reported falls. Will be compliant with recommendations for home safety. 06/22/19: patient currently using single point cane for gait. Feel she would benefit from use of 4WW in the community to allow her to rest when needed, but she is resistant to this at this time . 06/06/19: good goal progress 11/16/19: patient now using 4WW in community as recommended previously due to decline in strength and activity tolerance. Decreased foot clearance with gait noted today which increases fall risk. Will need addition and modification to HEP. 01/24/20: Patient has been ambulating with 4WW primarily, although today able to ambulate with straight cane for first time in weeks. She attributes this to possibly taking antibiotics. LTG Duration 04/25/20 One Impairment activity tolerance Short Term Goal (STG) instruct in energy conservation and pacing 06/06/19: goal met STG Duration [employer] Goal (LTG) Patient to demonstrate good understanding and compliance with energy conservation and pacing of activities. 06/22/19: good goal progress 11/16/19: due to decline in strength and function, needs further education and modification 04/25/20: continues to require modification due to variability of patient's energy level and activity tolerance. Today her activity tolerance was increased to her max of 310' on 2 min walk test. LTG Duration 04/25/20 Assessment Summary Assessment 287' 2 min walk, used FWW today due to increased fatigue , though able to increase resistance per her request on shuttle leg press, trial use of BOSU for strengthening and balance.45 Physical Therapy Plan Frequency and Duration Frequency of Treatment 1x/Week Duration of Treatment 12 wks Plan of Care Start Date 01/24/20 Plan of Care End Date 04/25/20 Therapeutic Interventions Therapeutic Interventions Aquatic Therapy,Balance Training,Coordination Training ,Gait Training,Home Exercise Program,Neuromuscular Re- education,Self-Care/Home Management,Therapeutic Activities,Therapeutic Exercises Next Visit Focus/Plan Next Note Type Treatment Note Next Visit Plan Progress ther ex as tolerated, with adjustments to HEP as indicated.
--- NOTE | 2020-02-13 11:08 | PT.OTN ---
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) Muscle weakness (generalized) (02/13/20) Physical Therapy Treatment Note PT-OP-A Visit Information Start: 01/05/19 16:21 Freq: Status: Active Protocol: Document 02/13/20 09:00 SAK (Rec: 02/13/20 09:44 SAK [id number]) Out-Patient Physical Therapy Visit Information Visit Information Visit Type Treatment Note Visit Start Time 09:00 Visit Stop Time 09:45 Total Visit Minutes 45 Visit Number 29 PT-OP-B Current Condition Start: 01/05/19 16:21 Freq: Status: Active Protocol: Document 01/06/19 12:57 SAK (Rec: 01/06/19 13:25 SAK [id number]) Current Condition History of Current Condition Onset Date 4 yrs Current Complaints LE weakness and achiness, SOB History of Current Condition Gradual progressive weakness, started using cane May 2017. Has been seeing specialists and having tests with diagnosis of possible indeterminate type of muscular dystrophy. Also reports exercise intolerance with SOB, increasing fatigue, need for much slower pace. The more I do the worse I feel . Hoping to see if she can establish an exercise program that will not exhaust her. Requesting possible aquatic therapy. Difficulty getting out of chairs, off floor. 2018 8-10 falls, this year being more careful, last fall was in July. Has not suffererd injury. Started Prednisone yesterday 15 mg. Prior experience with Prednisone caused migraine; has headache but not migraine. LE weakness symmetrical, no numbness or tingling. With falls, reports usually [address] Frequently uses cane or walker. No dizziness. BP well-managed. Uses electric tricycle. Has recumbant exercise bike, reports not using, has tendency to overdo. Also weakness in UE's; hard to wash hair, can't hold chair, can only get 1 plate out of cupboard at a time, doesn't carry groceries. Stool in shower, can dress self. Trip to [place] next week, has anxiety about being able to tolerate. Prior Treatments and Tests muscle biopsy negative [facility] neurologist States MS and ALS ruled out as diagnoses. Future Testing and Treatments Planned Spoke today with Claudy Sotelo, doctor inclusion body myositis specialist at [facility] in [place]; has February 16 appointment Patient reports a second muscle biopsy recommended by [facility] physician Treatment Goals Patient/Caregiver Goals Improve strength/maintain, establish exercise program. Hoping for aquatic therapy. Had difficulty getting in/out of pool and felt uncoordinated last time in pool. Knows how to swim, but body has changed and it felt very difficult. Prior Functional Status Baseline Function- ADL's Independent Baseline Function- Mobility Independent Baseline Function- Gait independent without device Baseline Function- Work/School retired Baseline Function- Recreation/Hobbies walk, bike, hike Current Functional Impairments (Reported) Functional Limitations- ADL's slow, fatiguing Functional Limitations- Mobility/Gait very limited with c/o SOB, frequent rest breaks Functional Limitations- Work/School retired Functional Limitations- Recreation/ unable except has electric Hobbies tricycle PT-OP-C Subjective Start: 01/05/19 16:21 Freq: Status: Active Protocol: Document 02/13/20 09:00 SAK (Rec: 02/13/20 09:44 SAK [id number]) OP-PT Subjective Patient Comments Patient Comments Has had headache and ringing in ears, nausea, off balance for at least 1 week, doesn't usually get headaches. Prescribed Tramedol. Had CT scan Thursday, no results yet. Obtained BOSU for home use, hasn't tried yet. PT-OP-D Balance Start: 01/05/19 16:21 Freq: Status: Active Protocol: Document 06/06/19 08:59 SAK (Rec: 06/06/19 13:50 SAK [id number]) Balance Tests Sheth Balance Test Sheth Balance Test Score 53 Sheth Impairment Rating 1 to 19% Impaired (Score 45-55 ) PT-OP-E Functional Tests Start: 01/05/19 16:21 Freq: Status: Active Protocol: Document 07/20/19 09:01 SAK (Rec: 07/20/19 10:00 SAK [id number]) Functional Tests 6 Minute Walk Test Comments not done due to fatigue PT-OP-G Mobility & Gait Start: 01/05/19 16:21 Freq: Status: Active Protocol: Document 07/04/19 11:54 SP (Rec: 07/04/19 11:56 SP [id number]) OP Mobility Evaluation Bed Mobility Rolling I Supine to and from Sit I Transfers Sit to Stand Indep, no hands initially. Requires use of hands with fatigue PT-OP-H Neuro Start: 01/05/19 16:21 Freq: Status: Active Protocol: Document 06/06/19 08:59 [facility] (Rec: 06/06/19 13:50 [facility] [id number]) Sensation Evaluation Gross Sensation Gross Sensation WNL PT-OP-J Posture/Palpation/Skin Start: 01/05/19 16:21 Freq: Status: Active Protocol: Document 01/06/19 12:57 [facility] (Rec: 01/09/19 12:55 [facility] [id number]) Skin Assessment Other Assessments Skin Assessment Comments intact, no edema or brusing evident PT-OP-K Range of Motion Start: 01/05/19 16:21 Freq: Status: Active Protocol: Document 01/06/19 12:57 [facility] (Rec: 01/09/19 12:55 [facility] [id number]) Cervical Spine Range of Motion Cervical Spine Active Comments WNL Lumbar Spine Range of Motion Lumbar Spine Active Comments WNL Shoulder Goniometric Range of Motion Shoulder left Shoulder ROM WFL Yes right Shoulder ROM WFL Yes Elbow/Forearm Range of Motion Elbow/Forearm girma Elbow/Forearm ROM WFL Yes Wrist Goniometric Range of Motion Wrist girma Wrist ROM WFL Yes Hip Goniometric Range of Motion Hip girma Hip ROM WFL Yes Knee Goniometric Range of Motion Knee girma Knee ROM WFL Yes Ankle and Foot Goniometric Range of Motion Ankle and Foot girma Ankle/Foot ROM WFL Yes PT-OP-M Strength Start: 01/05/19 16:21 Freq: Status: Active Protocol: Document 11/16/19 12:44 [facility] (Rec: 11/16/19 13:30 [facility] [id number]) Hip Strength Hip Manual Muscle Testing Left Flexion (L2) 4- Good- Extension (S1) 3- Fair- Abduction 3- Fair- Adduction 4- Good- Right Flexion (L2) 4- Good- Extension (S1) 4- Good- Abduction 4- Good- Adduction 4- Good- Comments not tested due to fatigue Knee Strength Knee Manual Muscle Testing Left Flexion (S2) 4- Good- Extension (L3) 4- Good- Right Flexion (S2) 4 Good Extension (L3) 4 Good Ankle/Foot Strength Ankle and Foot Manual Muscle Testing Left Dorsiflexion (L4) 4- Good- Plantarflexion (S1) 3+ Fair+ Right Dorsiflexion (L4) 4 Good Plantarflexion (S1) 4 Good PT-OP-Q Treatments Start: 01/05/19 16:21 Freq: Status: Active Protocol: Document 02/13/20 09:00 SAK (Rec: 02/13/20 09:44 SAK [id number]) Gym Equipment Shuttle Recovery Unilateral Squats Resistance 37 Shuttle Recovery Platform Stable Reps/Time 10 (3x 25#, 7x 37# right), ( 10x 37# left) Bilateral Squats Resistance 62 Shuttle Recovery Platform Stable Reps/Time 10 (4x 50#, 6x 62#) Shuttle Balance 1 Details red Reps/Duration 3 min x 2 Comments staggered feet balance and weight shift, UE support as needed (gait belt on safety- CGA), frequent LOB Therapeutic Exercises Supine Exercises pec stretch Reps/Minutes 2x30 Therapeutic Activity Therapeutic Activity deep breathing Name alternating abdominal and chest Reps/Minutes 1 min x 3 Gait Training Gait Activity gait Comments 2 min walk test x 1: 290' with FWW Manual Therapy Treatment Soft Tissue Mobilization UT, CS Body Position Supine Neuro Re-Education Treatment Balance Activities BOSU balance Reps/Duration 1'x1 Comments on blue side also lunges 3x each side PT-OP-S Aquatic Treatment Start: 01/05/19 16:21 Freq: Status: Active Protocol: Document 04/18/19 11:00 NATASHA (Rec: 04/18/19 16:09 LJ [id number]) Aquatics Treatment Pool Entry/Exit Pool Entry/Exit Method Stairs Assistance Standby Assistance,Verbal Cues Water Walking Monster Walk Water Level Chest Level Level of Assistance Verbal Cues Comments slow pace Marching Water Level Chest Level Level of Assistance Verbal Cues Comments slow pace Sideways Water Level Chest Level Level of Assistance Standby Assistance,Verbal Cues Comments slow pace Forwards Water Level Chest Level Level of Assistance Standby Assistance,Verbal Cues Comments slow pace Lower Extremity Exercises hip flex/ext, ab/ad, circles Body Position Standing Water Level Waist Level Reps/Duration 10 ea Comments gentle side to side weight-shifts Body Position Standing Water Level Chest Level Reps/Duration 10x squats Body Position Standing Water Level Chest Level Reps/Duration 10x Lower Extremity Stretches hip flexor Body Position Standing Water Level Waist Level Equipment Small Noodle Reps/Duration 2x30 Comments at wall quads Body Position Standing Water Level Waist Level Equipment Small Noodle Comments at wall HC Body Position Standing Water Level Waist Level Equipment Small Noodle Reps/Duration 2x30 Comments toes on wall HS Body Position Standing Water Level Waist Level Reps/Duration 2x30 Upper Extremity Exercises flex/ext, ab/ad, horiz ab/ad Body Position Sitting Water Level Neck Level Reps/Duration 10 each direction Comments braced at wall, focus on core stability Spinal Exercises stretch cord resisted walking Body Position Standing Water Level Chest Level Reps/Duration 2 steps 4x each direction Comments stabilizing with mvmt stretch cord rotations Body Position Standing Water Level Chest Level Reps/Duration 8 each direction PT-OP-T Assessment and Plan Start: 01/05/19 16:21 Freq: Status: Active Protocol: Document 02/13/20 09:00 CATARINO (Rec: 02/13/20 09:44 SAK [id number]) Physical Therapy Assessment Goals Three Impairment strength [employer] Goal (LTG) Establish well-tolerated aquatic exercise program and HEP focused on strengthening and balance for patient with patient demonstrated independence and compliance and demonstrate good knowledge of how to modify depending on symptoms. 06/22/19: goal progress 08/16/19: decline in LE strength left side, will need modification. Patient lost written HEP during move, and stress of move didn't allow her to exercise. 01/24/20: Patient has written ex for supine, sitting, and standing depending on how she is doing and what she feels she can tolerate any given day . Has been trying to walk most days. LTG Duration 04/25/20 Two Impairment balance Short Term Goal (STG) Complete objective balance testing for baseline measurements 06/06/19: goal progress 06/22/19: further testing reveals good balance, cane required more for fatigue 11/16/19: decline in balance noted with SLS and tandem stand today, denies any falls. [employer] Goal (LTG) Patient to be safe and independent with gait on level and uneven surfaces with least restrictive device, and have no reported falls. Will be compliant with recommendations for home safety. 06/22/19: patient currently using single point cane for gait. Feel she would benefit from use of 4WW in the community to allow her to rest when needed, but she is resistant to this at this time . 06/06/19: good goal progress 11/16/19: patient now using 4WW in community as recommended previously due to decline in strength and activity tolerance. Decreased foot clearance with gait noted today which increases fall risk. Will need addition and modification to HEP. 01/24/20: Patient has been ambulating with 4WW primarily, although today able to ambulate with straight cane for first time in weeks. She attributes this to possibly taking antibiotics. LTG Duration 04/25/20 One Impairment activity tolerance Short Term Goal (STG) instruct in energy conservation and pacing 06/06/19: goal met STG Duration MET [employer] Goal (LTG) Patient to demonstrate good understanding and compliance with energy conservation and pacing of activities. 06/22/19: good goal progress 11/16/19: due to decline in strength and function, needs further education and modification 04/25/20: continues to require modification due to variability of patient's energy level and activity tolerance. Today her activity tolerance was increased to her max of 310' on 2 min walk test. LTG Duration 04/25/20 Assessment Summary Assessment 290' 2 min walk Physical Therapy Plan Frequency and Duration Frequency of Treatment 1x/Week Duration of Treatment 12 wks Plan of Care Start Date 01/24/20 Plan of Care End Date 04/25/20 Therapeutic Interventions Therapeutic Interventions Aquatic Therapy,Balance Training,Coordination Training ,Gait Training,Home Exercise Program,Neuromuscular Re- education,Self-Care/Home Management,Therapeutic Activities,Therapeutic Exercises Next Visit Focus/Plan Next Note Type Treatment Note Next Visit Plan Progress ther ex as tolerated, with adjustments to HEP as indicated.
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
--- NOTE | 2020-02-27 16:32 | PT.OTN ---
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) Muscle weakness (generalized) (02/27/20) Physical Therapy Treatment Note PT-OP-A Visit Information Start: 01/05/19 16:21 Freq: Status: Active Protocol: Document 02/27/20 09:12 SAK (Rec: 02/27/20 09:49 SAK [id number]) Out-Patient Physical Therapy Visit Information Visit Information Visit Type Treatment Note Visit Start Time 09:01 Visit Stop Time 09:45 Total Visit Minutes 44 Visit Number 31 PT-OP-B Current Condition Start: 01/05/19 16:21 Freq: Status: Active Protocol: Document 01/06/19 12:57 SAK (Rec: 01/06/19 13:25 SAK [id number]) Current Condition History of Current Condition Onset Date 4 yrs Current Complaints LE weakness and achiness, SOB History of Current Condition Gradual progressive weakness, started using cane May 2017. Has been seeing specialists and having tests with diagnosis of possible indeterminate type of muscular dystrophy. Also reports exercise intolerance with SOB, increasing fatigue, need for much slower pace. The more I do the worse I feel . Hoping to see if she can establish an exercise program that will not exhaust her. Requesting possible aquatic therapy. Difficulty getting out of chairs, off floor. 2018 8-10 falls, this year being more careful, last fall was in July. Has not suffererd injury. Started Prednisone yesterday 15 mg. Prior experience with Prednisone caused migraine; has headache but not migraine. LE weakness symmetrical, no numbness or tingling. With falls, reports usually [address] Frequently uses cane or walker. No dizziness. BP well-managed. Uses electric tricycle. Has recumbant exercise bike, reports not using, has tendency to overdo. 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 Stool in shower, can dress self. Trip to [place] next week, has anxiety about being able to tolerate. Prior Treatments and Tests muscle biopsy negative [facility] neurologist States MS and ALS ruled out as diagnoses. Future Testing and Treatments Planned Spoke today with Claudy Sotelo, doctor inclusion body myositis specialist at [facility] in [place]; has February 16 appointment Patient reports a second muscle biopsy recommended by [facility] physician Treatment Goals Patient/Caregiver Goals Improve strength/maintain, establish exercise program. Hoping for aquatic therapy. Had difficulty getting in/out of pool and felt uncoordinated last time in pool. Knows how to swim, but body has changed and it felt very difficult. Prior Functional Status Baseline Function- ADL's Independent Baseline Function- Mobility Independent Baseline Function- Gait independent without device Baseline Function- Work/School retired Baseline Function- Recreation/Hobbies walk, bike, hike Current Functional Impairments (Reported) Functional Limitations- ADL's slow, fatiguing Functional Limitations- Mobility/Gait very limited with c/o SOB, frequent rest breaks Functional Limitations- Work/School retired Functional Limitations- Recreation/ unable except has electric Hobbies tricycle PT-OP-C Subjective Start: 01/05/19 16:21 Freq: Status: Active Protocol: Document 02/27/20 09:12 [facility] (Rec: 02/27/20 09:49 [facility] [id number]) OP-PT Subjective Patient Comments Patient Comments Reports didn't have a good week, decreased ability to walk, feeling week. Looking to buy a power wheelchair off [employer]. Eventually wants to [employer] Rode ex bike 1x for about 10 min, exhausted for several days after. Also moved seasonal clothes using her walker. Lots of discomfort in her legs . From 5-7 in am has a hard time getting moving, then 7-11 or 12 feels better, then in am doesn't tolerate other activity. Doing IVIG next week. PT-OP-D Balance Start: 01/05/19 16:21 Freq: Status: Active Protocol: Document 06/06/19 08:59 SAK (Rec: 06/06/19 13:50 [facility] [id number]) Balance Tests Sheth Balance Test Sheth Balance Test Score 53 Sheth Impairment Rating 1 to 19% Impaired (Score 45-55 ) PT-OP-E Functional Tests Start: 01/05/19 16:21 Freq: Status: Active Protocol: Document 07/20/19 09:01 SAK (Rec: 07/20/19 10:00 SAK [id number]) Functional Tests 6 Minute Walk Test Comments not done due to fatigue PT-OP-G Mobility & Gait Start: 01/05/19 16:21 Freq: Status: Active Protocol: Document 07/04/19 11:54 SP (Rec: 07/04/19 11:56 SP [id number]) OP Mobility Evaluation Bed Mobility Rolling I Supine to and from Sit I Transfers Sit to Stand Indep, no hands initially. Requires use of hands with fatigue PT-OP-H Neuro Start: 01/05/19 16:21 Freq: Status: Active Protocol: Document 06/06/19 08:59 SAK (Rec: 06/06/19 13:50 SAK [id number]) Sensation Evaluation Gross Sensation Gross Sensation WNL PT-OP-J Posture/Palpation/Skin Start: 01/05/19 16:21 Freq: Status: Active Protocol: Document 01/06/19 12:57 SAK (Rec: 01/09/19 12:55 SAK [id number]) Skin Assessment Other Assessments Skin Assessment Comments intact, no edema or brusing evident PT-OP-K Range of Motion Start: 01/05/19 16:21 Freq: Status: Active Protocol: Document 01/06/19 12:57 SAK (Rec: 01/09/19 12:55 SAK [id number]) Cervical Spine Range of Motion Cervical Spine Active Comments WNL Lumbar Spine Range of Motion Lumbar Spine Active Comments WNL Shoulder Goniometric Range of Motion Shoulder left Shoulder ROM WFL Yes right Shoulder ROM WFL Yes Elbow/Forearm Range of Motion Elbow/Forearm girma Elbow/Forearm ROM WFL Yes Wrist Goniometric Range of Motion Wrist girma Wrist ROM WFL Yes Hip Goniometric Range of Motion Hip girma Hip ROM WFL Yes Knee Goniometric Range of Motion Knee girma Knee ROM WFL Yes Ankle and Foot Goniometric Range of Motion Ankle and Foot girma Ankle/Foot ROM WFL Yes PT-OP-M Strength Start: 01/05/19 16:21 Freq: Status: Active Protocol: Document 11/16/19 12:44 SAK (Rec: 11/16/19 13:30 SAK [id number]) Hip Strength Hip Manual Muscle Testing Left Flexion (L2) 4- Good- Extension (S1) 3- Fair- Abduction 3- Fair- Adduction 4- Good- Right Flexion (L2) 4- Good- Extension (S1) 4- Good- Abduction 4- Good- Adduction 4- Good- Comments not tested due to fatigue Knee Strength Knee Manual Muscle Testing Left Flexion (S2) 4- Good- Extension (L3) 4- Good- Right Flexion (S2) 4 Good Extension (L3) 4 Good Ankle/Foot Strength Ankle and Foot Manual Muscle Testing Left Dorsiflexion (L4) 4- Good- Plantarflexion (S1) 3+ Fair+ Right Dorsiflexion (L4) 4 Good Plantarflexion (S1) 4 Good PT-OP-Q Treatments Start: 01/05/19 16:21 Freq: Status: Active Protocol: Document 02/20/20 09:02 SAK (Rec: 02/20/20 09:44 SAK [id number]) Therapeutic Activity Therapeutic Activity deep breathing Name alternating abdominal and chest Reps/Minutes 1 min x 3 Gait Training Gait Activity gait level without device Description parallel bars Level of Assistance SBA Surface firm Distance/Duration 2 laps Treatment Focus hip stability, safety Comments NO LOB backwards gait Distance/Duration 2 laps Comments parallel bars no LOB gait Comments 2 min walk test x 1: 303' with FWW Neuro Re-Education Treatment Balance Activities sidestepping Details parallel bars Reps/Duration 2 laps BOSU balance Details standing bal, weight-shift Comments on blue side also lunges 3x each side Self-Care/Home Management Treatment Education Other Education pacing of activities PT-OP-S Aquatic Treatment Start: 01/05/19 16:21 Freq: Status: Active Protocol: Document 04/18/19 11:00 NATASHA (Rec: 04/18/19 16:09 LJ [id number]) Aquatics Treatment Pool Entry/Exit Pool Entry/Exit Method Stairs Assistance Standby Assistance,Verbal Cues Water Walking Monster Walk Water Level Chest Level Level of Assistance Verbal Cues Comments slow pace Marching Water Level Chest Level Level of Assistance Verbal Cues Comments slow pace Sideways Water Level Chest Level Level of Assistance Standby Assistance,Verbal Cues Comments slow pace Forwards Water Level Chest Level Level of Assistance Standby Assistance,Verbal Cues Comments slow pace Lower Extremity Exercises hip flex/ext, ab/ad, circles Body Position Standing Water Level Waist Level Reps/Duration 10 ea Comments gentle side to side weight-shifts Body Position Standing Water Level Chest Level Reps/Duration 10x squats Body Position Standing Water Level Chest Level Reps/Duration 10x Lower Extremity Stretches hip flexor Body Position Standing Water Level Waist Level Equipment Small Noodle Reps/Duration 2x30 Comments at wall quads Body Position Standing Water Level Waist Level Equipment Small Noodle Comments at wall HC Body Position Standing Water Level Waist Level Equipment Small Noodle Reps/Duration 2x30 Comments toes on wall HS Body Position Standing Water Level Waist Level Reps/Duration 2x30 Upper Extremity Exercises flex/ext, ab/ad, horiz ab/ad Body Position Sitting Water Level Neck Level Reps/Duration 10 each direction Comments braced at wall, focus on core stability Spinal Exercises stretch cord resisted walking Body Position Standing Water Level Chest Level Reps/Duration 2 steps 4x each direction Comments stabilizing with mvmt stretch cord rotations Body Position Standing Water Level Chest Level Reps/Duration 8 each direction PT-OP-T Assessment and Plan Start: 01/05/19 16:21 Freq: Status: Active Protocol: Document 02/27/20 09:12 [facility] (Rec: 02/27/20 09:49 [facility] [id number]) Physical Therapy Assessment Goals Three Impairment strength [employer] Goal (LTG) Establish well-tolerated aquatic exercise program and HEP focused on strengthening and balance for patient with patient demonstrated independence and compliance and demonstrate good knowledge of how to modify depending on symptoms. 06/22/19: goal progress 08/16/19: decline in LE strength left side, will need modification. Patient lost written HEP during move, and stress of move didn't allow her to exercise. 01/24/20: Patient has written ex for supine, sitting, and standing depending on how she is doing and what she feels she can tolerate any given day . Has been trying to walk most days. LTG Duration 04/25/20 Two Impairment balance Short Term Goal (STG) Complete objective balance testing for baseline measurements 06/06/19: goal progress 06/22/19: further testing reveals good balance, cane required more for fatigue 11/16/19: decline in balance noted with SLS and tandem stand today, denies any falls. Custodial Goal (LTG) Patient to be safe and independent with gait on level and uneven surfaces with least restrictive device, and have no reported falls. Will be compliant with recommendations for home safety. 06/22/19: patient currently using single point cane for gait. Feel she would benefit from use of 4WW in the community to allow her to rest when needed, but she is resistant to this at this time . 06/06/19: good goal progress 11/16/19: patient now using 4WW in community as recommended previously due to decline in strength and activity tolerance. Decreased foot clearance with gait noted today which increases fall risk. Will need addition and modification to HEP. 01/24/20: Patient has been ambulating with 4WW primarily, although today able to ambulate with straight cane for first time in weeks. She attributes this to possibly taking antibiotics. LTG Duration 04/25/20 One Impairment activity tolerance Short Term Goal (STG) instruct in energy conservation and pacing 06/06/19: goal met STG Duration MET Manager [employer] Goal (LTG) Patient to demonstrate good understanding and compliance with energy conservation and pacing of activities. 06/22/19: good goal progress 11/16/19: due to decline in strength and function, needs further education and modification 04/25/20: continues to require modification due to variability of patient's energy level and activity tolerance. Today her activity tolerance was increased to her max of 310' on 2 min walk test. LTG Duration 04/25/20 Assessment Summary Assessment 267 2 min walk. Continued review of energy conservation. Discussion about w/c options , benefits; patient may buy a used one online at this time. Physical Therapy Plan Frequency and Duration Frequency of Treatment 1x/Week Duration of Treatment 12 wks Plan of Care Start Date 01/24/20 Plan of Care End Date 04/25/20 Therapeutic Interventions Therapeutic Interventions Aquatic Therapy,Balance Training,Coordination Training ,Gait Training,Home Exercise Program,Neuromuscular Re- education,Self-Care/Home Management,Therapeutic Activities,Therapeutic Exercises Next Visit Focus/Plan Next Note Type Treatment Note Next Visit Plan Evaluate patient status, physical response to IVIG. Progress ex as tolerated.
--- NOTE | 2020-03-14 12:12 | PT.OTN ---
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) Muscle weakness (generalized) (03/14/20) Physical Therapy Treatment Note PT-OP-A Visit Information Start: 01/05/19 16:21 Freq: Status: Active Protocol: Document 03/14/20 11:17 SAK (Rec: 03/14/20 12:12 SAK [id number]) Out-Patient Physical Therapy Visit Information Visit Information Visit Type Treatment Note Visit Start Time 11:18 Visit Stop Time 12:00 Total Visit Minutes 42 Visit Number 32 PT-OP-B Current Condition Start: 01/05/19 16:21 Freq: Status: Active Protocol: Document 01/06/19 12:57 SAK (Rec: 01/06/19 13:25 SAK [id number]) Current Condition History of Current Condition Onset Date 4 yrs Current Complaints LE weakness and achiness, SOB History of Current Condition Gradual progressive weakness, started using cane May 2017. Has been seeing specialists and having tests with diagnosis of possible indeterminate type of muscular dystrophy. Also reports exercise intolerance with SOB, increasing fatigue, need for much slower pace. The more I do the worse I feel . Hoping to see if she can establish an exercise program that will not exhaust her. Requesting possible aquatic therapy. Difficulty getting out of chairs, off floor. 2018 8-10 falls, this year being more careful, last fall was in July. Has not suffererd injury. Started Prednisone yesterday 15 mg. Prior experience with Prednisone caused migraine; has headache but not migraine. LE weakness symmetrical, no numbness or tingling. With falls, reports usually [address] Frequently uses cane or walker. No dizziness. BP well-managed. Uses electric tricycle. Has recumbant exercise bike, reports not using, has tendency to overdo. 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 Stool in shower, can dress self. Trip to [place] next week, has anxiety about being able to tolerate. Prior Treatments and Tests muscle biopsy negative [facility] neurologist States MS and ALS ruled out as diagnoses. Future Testing and Treatments Planned Spoke today with Claudy Sotelo, doctor inclusion body myositis specialist at [facility] in [place]; has February 16 appointment Patient reports a second muscle biopsy recommended by [facility] physician Treatment Goals Patient/Caregiver Goals Improve strength/maintain, establish exercise program. Hoping for aquatic therapy. Had difficulty getting in/out of pool and felt uncoordinated last time in pool. Knows how to swim, but body has changed and it felt very difficult. Prior Functional Status Baseline Function- ADL's Independent Baseline Function- Mobility Independent Baseline Function- Gait independent without device Baseline Function- Work/School retired Baseline Function- Recreation/Hobbies walk, bike, hike Current Functional Impairments (Reported) Functional Limitations- ADL's slow, fatiguing Functional Limitations- Mobility/Gait very limited with c/o SOB, frequent rest breaks Functional Limitations- Work/School retired Functional Limitations- Recreation/ unable except has electric Hobbies tricycle PT-OP-C Subjective Start: 01/05/19 16:21 Freq: Status: Active Protocol: Document 03/14/20 11:17 [facility] (Rec: 03/14/20 12:12 SAK [id number]) OP-PT Subjective Patient Comments Patient Comments Migraine and nausea reaction to IVIG treatments last week. Scheduled to repeat every 4 weeks. Not sure she feels any improvement from IVIG. Yesterday was best day since IVIG treatments, but feels overdid her activity yesterday . waiting and observing. PT-OP-D Balance Start: 01/05/19 16:21 Freq: Status: Active Protocol: Document 06/06/19 08:59 SAK (Rec: 06/06/19 13:50 SAK [id number]) Balance Tests Sheth Balance Test Sheth Balance Test Score 53 Sheth Impairment Rating 1 to 19% Impaired (Score 45-55 ) PT-OP-E Functional Tests Start: 01/05/19 16:21 Freq: Status: Active Protocol: Document 07/20/19 09:01 SAK (Rec: 07/20/19 10:00 SAK [id number]) Functional Tests 6 Minute Walk Test Comments not done due to fatigue PT-OP-G Mobility & Gait Start: 01/05/19 16:21 Freq: Status: Active Protocol: Document 07/04/19 11:54 SP (Rec: 07/04/19 11:56 SP [id number]) OP Mobility Evaluation Bed Mobility Rolling I Supine to and from Sit I Transfers Sit to Stand Indep, no hands initially. Requires use of hands with fatigue PT-OP-H Neuro Start: 01/05/19 16:21 Freq: Status: Active Protocol: Document 06/06/19 08:59 [facility] (Rec: 06/06/19 13:50 [facility] [id number]) Sensation Evaluation Gross Sensation Gross Sensation WNL PT-OP-J Posture/Palpation/Skin Start: 01/05/19 16:21 Freq: Status: Active Protocol: Document 01/06/19 12:57 [facility] (Rec: 01/09/19 12:55 [facility] [id number]) Skin Assessment Other Assessments Skin Assessment Comments intact, no edema or brusing evident PT-OP-K Range of Motion Start: 01/05/19 16:21 Freq: Status: Active Protocol: Document 01/06/19 12:57 [facility] (Rec: 01/09/19 12:55 [facility] [id number]) Cervical Spine Range of Motion Cervical Spine Active Comments WNL Lumbar Spine Range of Motion Lumbar Spine Active Comments WNL Shoulder Goniometric Range of Motion Shoulder left Shoulder ROM WFL Yes right Shoulder ROM WFL Yes Elbow/Forearm Range of Motion Elbow/Forearm girma Elbow/Forearm ROM WFL Yes Wrist Goniometric Range of Motion Wrist girma Wrist ROM WFL Yes Hip Goniometric Range of Motion Hip girma Hip ROM WFL Yes Knee Goniometric Range of Motion Knee girma Knee ROM WFL Yes Ankle and Foot Goniometric Range of Motion Ankle and Foot girma Ankle/Foot ROM WFL Yes PT-OP-M Strength Start: 01/05/19 16:21 Freq: Status: Active Protocol: Document 11/16/19 12:44 [facility] (Rec: 11/16/19 13:30 [facility] [id number]) Hip Strength Hip Manual Muscle Testing Left Flexion (L2) 4- Good- Extension (S1) 3- Fair- Abduction 3- Fair- Adduction 4- Good- Right Flexion (L2) 4- Good- Extension (S1) 4- Good- Abduction 4- Good- Adduction 4- Good- Comments not tested due to fatigue Knee Strength Knee Manual Muscle Testing Left Flexion (S2) 4- Good- Extension (L3) 4- Good- Right Flexion (S2) 4 Good Extension (L3) 4 Good Ankle/Foot Strength Ankle and Foot Manual Muscle Testing Left Dorsiflexion (L4) 4- Good- Plantarflexion (S1) 3+ Fair+ Right Dorsiflexion (L4) 4 Good Plantarflexion (S1) 4 Good PT-OP-Q Treatments Start: 01/05/19 16:21 Freq: Status: Active Protocol: Document 03/14/20 11:17 SAK (Rec: 03/14/20 12:12 SAK [id number]) Gym Equipment Shuttle Balance 2 Details green Comments balloon volleyball 1 Details red Reps/Duration 3 min x 2 Comments staggered feet balance and weight shift, UE support as needed (gait belt on safety- CGA), frequent LOB Therapeutic Exercises Supine Exercises overhead stretch Reps/Minutes 2x30 bent knee hip IR/ER Reps/Minutes 5x pec stretch Reps/Minutes 2x30 LTR Reps/Minutes 10x Therapeutic Activity Therapeutic Activity deep breathing Name alternating abdominal and chest Reps/Minutes 1 min x 3 Gait Training Gait Activity gait Comments 2 min walk test x 1: 272' with FWW PT-OP-S Aquatic Treatment Start: 01/05/19 16:21 Freq: Status: Active Protocol: Document 04/18/19 11:00 NATASHA (Rec: 04/18/19 16:09 LJ [id number]) Aquatics Treatment Pool Entry/Exit Pool Entry/Exit Method Stairs Assistance Standby Assistance,Verbal Cues Water Walking Monster Walk Water Level Chest Level Level of Assistance Verbal Cues Comments slow pace Marching Water Level Chest Level Level of Assistance Verbal Cues Comments slow pace Sideways Water Level Chest Level Level of Assistance Standby Assistance,Verbal Cues Comments slow pace Forwards Water Level Chest Level Level of Assistance Standby Assistance,Verbal Cues Comments slow pace Lower Extremity Exercises hip flex/ext, ab/ad, circles Body Position Standing Water Level Waist Level Reps/Duration 10 ea Comments gentle side to side weight-shifts Body Position Standing Water Level Chest Level Reps/Duration 10x squats Body Position Standing Water Level Chest Level Reps/Duration 10x Lower Extremity Stretches hip flexor Body Position Standing Water Level Waist Level Equipment Small Noodle Reps/Duration 2x30 Comments at wall quads Body Position Standing Water Level Waist Level Equipment Small Noodle Comments at wall HC Body Position Standing Water Level Waist Level Equipment Small Noodle Reps/Duration 2x30 Comments toes on wall HS Body Position Standing Water Level Waist Level Reps/Duration 2x30 Upper Extremity Exercises flex/ext, ab/ad, horiz ab/ad Body Position Sitting Water Level Neck Level Reps/Duration 10 each direction Comments braced at wall, focus on core stability Spinal Exercises stretch cord resisted walking Body Position Standing Water Level Chest Level Reps/Duration 2 steps 4x each direction Comments stabilizing with mvmt stretch cord rotations Body Position Standing Water Level Chest Level Reps/Duration 8 each direction PT-OP-T Assessment and Plan Start: 01/05/19 16:21 Freq: Status: Active Protocol: Document 03/14/20 11:17 SAK (Rec: 03/14/20 12:12 SAK [id number]) Physical Therapy Assessment Goals Three Impairment strength Gum Sprayer Goal (LTG) Establish well-tolerated aquatic exercise program and HEP focused on strengthening and balance for patient with patient demonstrated independence and compliance and demonstrate good knowledge of how to modify depending on symptoms. 06/22/19: goal progress 08/16/19: decline in LE strength left side, will need modification. Patient lost written HEP during move, and stress of move didn't allow her to exercise. 01/24/20: Patient has written ex for supine, sitting, and standing depending on how she is doing and what she feels she can tolerate any given day . Has been trying to walk most days. LTG Duration 04/25/20 Two Impairment balance Short Term Goal (STG) Complete objective balance testing for baseline measurements 06/06/19: goal progress 06/22/19: further testing reveals good balance, cane required more for fatigue 11/16/19: decline in balance noted with SLS and tandem stand today, denies any falls. Gum Sprayer Goal (LTG) Patient to be safe and independent with gait on level and uneven surfaces with least restrictive device, and have no reported falls. Will be compliant with recommendations for home safety. 06/22/19: patient currently using single point cane for gait. Feel she would benefit from use of 4WW in the community to allow her to rest when needed, but she is resistant to this at this time . 06/06/19: good goal progress 11/16/19: patient now using 4WW in community as recommended previously due to decline in strength and activity tolerance. Decreased foot clearance with gait noted today which increases fall risk. Will need addition and modification to HEP. 01/24/20: Patient has been ambulating with 4WW primarily, although today able to ambulate with straight cane for first time in weeks. She attributes this to possibly taking antibiotics. LTG Duration 04/25/20 One Impairment activity tolerance Short Term Goal (STG) instruct in energy conservation and pacing 06/06/19: goal met STG Duration MET Gum Sprayer Goal (LTG) Patient to demonstrate good understanding and compliance with energy conservation and pacing of activities. 06/22/19: good goal progress 11/16/19: due to decline in strength and function, needs further education and modification 04/25/20: continues to require modification due to variability of patient's energy level and activity tolerance. Today her activity tolerance was increased to her max of 310' on 2 min walk test. LTG Duration 04/25/20 Assessment Summary Assessment 272 2 min walk. Improved balance noted on shuttle balanace machine. Physical Therapy Plan Frequency and Duration Frequency of Treatment 1x/Week Duration of Treatment 12 wks Plan of Care Start Date 01/24/20 Plan of Care End Date 04/25/20 Therapeutic Interventions Therapeutic Interventions Aquatic Therapy,Balance Training,Coordination Training ,Gait Training,Home Exercise Program,Neuromuscular Re- education,Self-Care/Home Management,Therapeutic Activities,Therapeutic Exercises Next Visit Focus/Plan Next Note Type Treatment Note Next Visit Plan Continue gentle progression of ther ex as tolerated
--- NOTE | 2020-03-26 14:39 | PT.OTN ---
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) Muscle weakness (generalized) (03/26/20) Physical Therapy Treatment Note PT-OP-A Visit Information Start: 01/05/19 16:21 Freq: Status: Active Protocol: Document 03/26/20 11:19 SAK (Rec: 03/26/20 11:38 SAK [id number]) Out-Patient Physical Therapy Visit Information Visit Information Visit Type Treatment Note Visit Start Time 11:19 Visit Stop Time 12:05 Total Visit Minutes 45 Visit Number 33 PT-OP-B Current Condition Start: 01/05/19 16:21 Freq: Status: Active Protocol: Document 01/06/19 12:57 SAK (Rec: 01/06/19 13:25 SAK [id number]) Current Condition History of Current Condition Onset Date 4 yrs Current Complaints LE weakness and achiness, SOB History of Current Condition Gradual progressive weakness, started using cane May 2017. Has been seeing specialists and having tests with diagnosis of possible indeterminate type of muscular dystrophy. Also reports exercise intolerance with SOB, increasing fatigue, need for much slower pace. The more I do the worse I feel . Hoping to see if she can establish an exercise program that will not exhaust her. Requesting possible aquatic therapy. Difficulty getting out of chairs, off floor. 2018 8-10 falls, this year being more careful, last fall was in July. Has not suffererd injury. Started Prednisone yesterday 15 mg. Prior experience with Prednisone caused migraine; has headache but not migraine. LE weakness symmetrical, no numbness or tingling. With falls, reports usually [address] Frequently uses cane or walker. No dizziness. BP well-managed. Uses electric tricycle. Has recumbant exercise bike, reports not using, has tendency to overdo. 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 Stool in shower, can dress self. Trip to [place] next week, has anxiety about being able to tolerate. Prior Treatments and Tests muscle biopsy negative [facility] neurologist States MS and ALS ruled out as diagnoses. Future Testing and Treatments Planned Spoke today with Claudy Sotelo, doctor inclusion body myositis specialist at [facility] in [place]; has February 16 appointment Patient reports a second muscle biopsy recommended by [facility] physician Treatment Goals Patient/Caregiver Goals Improve strength/maintain, establish exercise program. Hoping for aquatic therapy. Had difficulty getting in/out of pool and felt uncoordinated last time in pool. Knows how to swim, but body has changed and it felt very difficult. Prior Functional Status Baseline Function- ADL's Independent Baseline Function- Mobility Independent Baseline Function- Gait independent without device Baseline Function- Work/School retired Baseline Function- Recreation/Hobbies walk, bike, hike Current Functional Impairments (Reported) Functional Limitations- ADL's slow, fatiguing Functional Limitations- Mobility/Gait very limited with c/o SOB, frequent rest breaks Functional Limitations- Work/School retired Functional Limitations- Recreation/ unable except has electric Hobbies tricycle PT-OP-C Subjective Start: 01/05/19 16:21 Freq: Status: Active Protocol: Document 03/26/20 11:19 [facility] (Rec: 03/26/20 11:38 [facility] [id number]) OP-PT Subjective Patient Comments Patient Comments Reports more tingly, arms feel they are getting weaker; ie had difficulty stirring cookie dough. 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 Sees doctor (Dr. Meza) 03/30/20, and supposed to have second IVIG 04/03/20. Brain MRI supposed to be ordered by Dr. Meza, not scheduled yet. Has used her electric w/c some in the house; offers some independence but is also scared of becoming dependent. Is concerned about who would take care of her if something were to happen to her . PT-OP-D Balance Start: 01/05/19 16:21 Freq: Status: Active Protocol: Document 06/06/19 08:59 SAK (Rec: 06/06/19 13:50 [facility] [id number]) Balance Tests Sheth Balance Test Sheth Balance Test Score 53 Sheth Impairment Rating 1 to 19% Impaired (Score 45-55 ) PT-OP-E Functional Tests Start: 01/05/19 16:21 Freq: Status: Active Protocol: Document 07/20/19 09:01 SAK (Rec: 07/20/19 10:00 SAK [id number]) Functional Tests 6 Minute Walk Test Comments not done due to fatigue PT-OP-G Mobility & Gait Start: 01/05/19 16:21 Freq: Status: Active Protocol: Document 07/04/19 11:54 SP (Rec: 07/04/19 11:56 SP [id number]) OP Mobility Evaluation Bed Mobility Rolling I Supine to and from Sit I Transfers Sit to Stand Indep, no hands initially. Requires use of hands with fatigue PT-OP-H Neuro Start: 01/05/19 16:21 Freq: Status: Active Protocol: Document 06/06/19 08:59 SAK (Rec: 06/06/19 13:50 SAK [id number]) Sensation Evaluation Gross Sensation Gross Sensation WNL PT-OP-J Posture/Palpation/Skin Start: 01/05/19 16:21 Freq: Status: Active Protocol: Document 01/06/19 12:57 SAK (Rec: 01/09/19 12:55 SAK [id number]) Skin Assessment Other Assessments Skin Assessment Comments intact, no edema or brusing evident PT-OP-K Range of Motion Start: 01/05/19 16:21 Freq: Status: Active Protocol: Document 01/06/19 12:57 SAK (Rec: 01/09/19 12:55 SAK [id number]) Cervical Spine Range of Motion Cervical Spine Active Comments WNL Lumbar Spine Range of Motion Lumbar Spine Active Comments WNL Shoulder Goniometric Range of Motion Shoulder left Shoulder ROM WFL Yes right Shoulder ROM WFL Yes Elbow/Forearm Range of Motion Elbow/Forearm girma Elbow/Forearm ROM WFL Yes Wrist Goniometric Range of Motion Wrist girma Wrist ROM WFL Yes Hip Goniometric Range of Motion Hip girma Hip ROM WFL Yes Knee Goniometric Range of Motion Knee girma Knee ROM WFL Yes Ankle and Foot Goniometric Range of Motion Ankle and Foot girma Ankle/Foot ROM WFL Yes PT-OP-M Strength Start: 01/05/19 16:21 Freq: Status: Active Protocol: Document 03/26/20 11:38 SAK (Rec: 03/26/20 12:11 SAK [id number]) Shoulder Strength Shoulder Manual Muscle Testing Left Flexion 4- Good- Extension 4 Good Right Flexion 4+ Good+ Extension 4+ Good+ Elbow/Forearm Strength Elbow and Forearm Manual Muscle Testing Left Extension (C7) 4- Good- Pronation 4- Good- Right Flexion (C6) 4+ Good+ Extension (C7) 4+ Good+ Wrist Strength Wrist Manual Muscle Testing Right Flexion (C7) 4- Good- Extension (C6) 4- Good- Hand Sifting Operator/Pinch Strength Hand Strength Left Comments 40,40, after a few UE ex: 24, 38lbs elbow bent rested on chair arm at side. Right Comments 24, 24, after a few UE ex; 12,20 lbs elbow bent rested on chair arm at side. PT-OP-Q Treatments Start: 01/05/19 16:21 Freq: Status: Active Protocol: Document 03/26/20 11:19 SAK (Rec: 03/26/20 14:32 SAK [id number]) Gait Training Gait Activity gait Comments 2 min walk test x1: 230' with FWW Self-Care/Home Management Treatment Education Other Education use of power chair as needed pacing of activities asking for help consider interviewing private caregiver companies or people to be prepared as needed PT-OP-S Aquatic Treatment Start: 01/05/19 16:21 Freq: Status: Active Protocol: Document 04/18/19 11:00 NATASHA (Rec: 04/18/19 16:09 LJ [id number]) Aquatics Treatment Pool Entry/Exit Pool Entry/Exit Method Stairs Assistance Standby Assistance,Verbal Cues Water Walking Monster Walk Water Level Chest Level Level of Assistance Verbal Cues Comments slow pace Marching Water Level Chest Level Level of Assistance Verbal Cues Comments slow pace Sideways Water Level Chest Level Level of Assistance Standby Assistance,Verbal Cues Comments slow pace Forwards Water Level Chest Level Level of Assistance Standby Assistance,Verbal Cues Comments slow pace Lower Extremity Exercises hip flex/ext, ab/ad, circles Body Position Standing Water Level Waist Level Reps/Duration 10 ea Comments gentle side to side weight-shifts Body Position Standing Water Level Chest Level Reps/Duration 10x squats Body Position Standing Water Level Chest Level Reps/Duration 10x Lower Extremity Stretches hip flexor Body Position Standing Water Level Waist Level Equipment Small Noodle Reps/Duration 2x30 Comments at wall quads Body Position Standing Water Level Waist Level Equipment Small Noodle Comments at wall HC Body Position Standing Water Level Waist Level Equipment Small Noodle Reps/Duration 2x30 Comments toes on wall HS Body Position Standing Water Level Waist Level Reps/Duration 2x30 Upper Extremity Exercises flex/ext, ab/ad, horiz ab/ad Body Position Sitting Water Level Neck Level Reps/Duration 10 each direction Comments braced at wall, focus on core stability Spinal Exercises stretch cord resisted walking Body Position Standing Water Level Chest Level Reps/Duration 2 steps 4x each direction Comments stabilizing with mvmt stretch cord rotations Body Position Standing Water Level Chest Level Reps/Duration 8 each direction PT-OP-T Assessment and Plan Start: 01/05/19 16:21 Freq: Status: Active Protocol: Document 03/26/20 11:19 SAK (Rec: 03/26/20 11:38 [facility] [id number]) Physical Therapy Assessment Goals Three Impairment strength Fpc Goal (LTG) Establish well-tolerated aquatic exercise program and HEP focused on strengthening and balance for patient with patient demonstrated independence and compliance and demonstrate good knowledge of how to modify depending on symptoms. 06/22/19: goal progress 08/16/19: decline in LE strength left side, will need modification. Patient lost written HEP during move, and stress of move didn't allow her to exercise. 01/24/20: Patient has written ex for supine, sitting, and standing depending on how she is doing and what she feels she can tolerate any given day . Has been trying to walk most days. LTG Duration 04/25/20 Two Impairment balance Short Term Goal (STG) Complete objective balance testing for baseline measurements 06/06/19: goal progress 06/22/19: further testing reveals good balance, cane required more for fatigue 11/16/19: decline in balance noted with SLS and tandem stand today, denies any falls. Fpc Goal (LTG) Patient to be safe and independent with gait on level and uneven surfaces with least restrictive device, and have no reported falls. Will be compliant with recommendations for home safety. 06/22/19: patient currently using single point cane for gait. Feel she would benefit from use of 4WW in the community to allow her to rest when needed, but she is resistant to this at this time . 06/06/19: good goal progress 11/16/19: patient now using 4WW in community as recommended previously due to decline in strength and activity tolerance. Decreased foot clearance with gait noted today which increases fall risk. Will need addition and modification to HEP. 01/24/20: Patient has been ambulating with 4WW primarily, although today able to ambulate with straight cane for first time in weeks. She attributes this to possibly taking antibiotics. LTG Duration 04/25/20 One Impairment activity tolerance Short Term Goal (STG) instruct in energy conservation and pacing 06/06/19: goal met STG Duration MET Car Seat Upholsterer Goal (LTG) Patient to demonstrate good understanding and compliance with energy conservation and pacing of activities. 06/22/19: good goal progress 11/16/19: due to decline in strength and function, needs further education and modification 04/25/20: continues to require modification due to variability of patient's energy level and activity tolerance. Today her activity tolerance was increased to her max of 310' on 2 min walk test. LTG Duration 04/25/20 Assessment Summary Assessment 230 ' 2 min walk, more fatigued, shorter distance. Doesn't feel benefiting from IVIG. Sees her physician . Low tolerance for activity in PT, needed patient education regarding self-care , options for private caregiving, importance of being honest with her son about how she is doing so she can get family help as able. Strength measurements in UE's minimally changed but muscle endurance and activity tolerance very low. Encouraged patient to interview private caregivers or companies to be prepared if /when assistance needed. Patient doing mostly the supine ex including breathing ex plus trying to walk as much as able. She is concerned about declining function, decreased muscle enducance and activity tolerance with UE's now as well as LE's, will discuss with physician at next appointment 03/30/20 Physical Therapy Plan Frequency and Duration Frequency of Treatment 1x/Week Duration of Treatment 12 wks Plan of Care Start Date 01/24/20 Plan of Care End Date 04/25/20 Therapeutic Interventions Therapeutic Interventions Aquatic Therapy,Balance Training,Coordination Training ,Gait Training,Home Exercise Program,Neuromuscular Re- education,Self-Care/Home Management,Therapeutic Activities,Therapeutic Exercises Next Visit Focus/Plan Next Note Type Treatment Note Next Visit Plan LE strength testing, continue gentle ther ex, patient education, self-care and activity modification education.
--- NOTE | 2020-04-10 10:58 | PT.OTN ---
Current Diagnoses Spasmodic torticollis (04/10/20) Myotonic muscular dystrophy (04/10/20) Muscle weakness (generalized) (04/10/20) Physical Therapy Treatment Note PT-OP-A Visit Information Start: 01/05/19 16:21 Freq: Status: Active Protocol: Document 04/10/20 09:00 SAK (Rec: 04/10/20 09:41 SAK [id number]) Out-Patient Physical Therapy Visit Information Visit Information Visit Type Treatment Note Visit Start Time 09:01 Visit Stop Time 09:40 Total Visit Minutes 39 Visit Number 34 PT-OP-B Current Condition Start: 01/05/19 16:21 Freq: Status: Active Protocol: Document 01/06/19 12:57 SAK (Rec: 01/06/19 13:25 SAK [id number]) Current Condition History of Current Condition Onset Date 4 yrs Current Complaints LE weakness and achiness, SOB History of Current Condition Gradual progressive weakness, started using cane May 2017. Has been seeing specialists and having tests with diagnosis of possible indeterminate type of muscular dystrophy. Also reports exercise intolerance with SOB, increasing fatigue, need for much slower pace. The more I do the worse I feel . Hoping to see if she can establish an exercise program that will not exhaust her. Requesting possible aquatic therapy. Difficulty getting out of chairs, off floor. 2018 8-10 falls, this year being more careful, last fall was in July. Has not suffererd injury. Started Prednisone yesterday 15 mg. Prior experience with Prednisone caused migraine; has headache but not migraine. LE weakness symmetrical, no numbness or tingling. With falls, reports usually [address] Frequently uses cane or walker. No dizziness. BP well-managed. Uses electric tricycle. Has recumbant exercise bike, reports not using, has tendency to overdo. 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 Stool in shower, can dress self. Trip to [place] next week, has anxiety about being able to tolerate. Prior Treatments and Tests muscle biopsy negative [facility] neurologist States MS and ALS ruled out as diagnoses. Future Testing and Treatments Planned Spoke today with Claudy Sotelo, doctor inclusion body myositis specialist at [facility] in [place]; has February 16 appointment Patient reports a second muscle biopsy recommended by [facility] physician Treatment Goals Patient/Caregiver Goals Improve strength/maintain, establish exercise program. Hoping for aquatic therapy. Had difficulty getting in/out of pool and felt uncoordinated last time in pool. Knows how to swim, but body has changed and it felt very difficult. Prior Functional Status Baseline Function- ADL's Independent Baseline Function- Mobility Independent Baseline Function- Gait independent without device Baseline Function- Work/School retired Baseline Function- Recreation/Hobbies walk, bike, hike Current Functional Impairments (Reported) Functional Limitations- ADL's slow, fatiguing Functional Limitations- Mobility/Gait very limited with c/o SOB, frequent rest breaks Functional Limitations- Work/School retired Functional Limitations- Recreation/ unable except has electric Hobbies tricycle PT-OP-C Subjective Start: 01/05/19 16:21 Freq: Status: Active Protocol: Document 04/10/20 09:00 SAK (Rec: 04/10/20 09:41 SAK [id number]) OP-PT Subjective Patient Comments Patient Comments Better today. Started TQI anti-inflammatory diet starting 2 days ago, feels it may be helpful; energy level higher. 2/3 vegetables and fruit, 1/3 lean protein and whole grains. Trying to walk a little more, but not using exercise bike. Previously has been exhausted by walks and no energy for anything else. PT-OP-D Balance Start: 01/05/19 16:21 Freq: Status: Active Protocol: Document 06/06/19 08:59 SAK (Rec: 06/06/19 13:50 SAK [id number]) Balance Tests Sheth Balance Test Sheth Balance Test Score 53 Sheth Impairment Rating 1 to 19% Impaired (Score 45-55 ) PT-OP-E Functional Tests Start: 01/05/19 16:21 Freq: Status: Active Protocol: Document 07/20/19 09:01 SAK (Rec: 07/20/19 10:00 SAK [id number]) Functional Tests 6 Minute Walk Test Comments not done due to fatigue PT-OP-G Mobility & Gait Start: 01/05/19 16:21 Freq: Status: Active Protocol: Document 07/04/19 11:54 SP (Rec: 07/04/19 11:56 SP [id number]) OP Mobility Evaluation Bed Mobility Rolling I Supine to and from Sit I Transfers Sit to Stand Indep, no hands initially. Requires use of hands with fatigue PT-OP-H Neuro Start: 01/05/19 16:21 Freq: Status: Active Protocol: Document 06/06/19 08:59 [facility] (Rec: 06/06/19 13:50 [facility] [id number]) Sensation Evaluation Gross Sensation Gross Sensation WNL PT-OP-J Posture/Palpation/Skin Start: 01/05/19 16:21 Freq: Status: Active Protocol: Document 01/06/19 12:57 [facility] (Rec: 01/09/19 12:55 [facility] [id number]) Skin Assessment Other Assessments Skin Assessment Comments intact, no edema or brusing evident PT-OP-K Range of Motion Start: 01/05/19 16:21 Freq: Status: Active Protocol: Document 01/06/19 12:57 [facility] (Rec: 01/09/19 12:55 [facility] [id number]) Cervical Spine Range of Motion Cervical Spine Active Comments WNL Lumbar Spine Range of Motion Lumbar Spine Active Comments WNL Shoulder Goniometric Range of Motion Shoulder left Shoulder ROM WFL Yes right Shoulder ROM WFL Yes Elbow/Forearm Range of Motion Elbow/Forearm girma Elbow/Forearm ROM WFL Yes Wrist Goniometric Range of Motion Wrist girma Wrist ROM WFL Yes Hip Goniometric Range of Motion Hip girma Hip ROM WFL Yes Knee Goniometric Range of Motion Knee girma Knee ROM WFL Yes Ankle and Foot Goniometric Range of Motion Ankle and Foot girma Ankle/Foot ROM WFL Yes PT-OP-M Strength Start: 01/05/19 16:21 Freq: Status: Active Protocol: Document 03/26/20 11:38 [facility] (Rec: 03/26/20 12:11 [facility] [id number]) Shoulder Strength Shoulder Manual Muscle Testing Left Flexion 4- Good- Extension 4 Good Right Flexion 4+ Good+ Extension 4+ Good+ Elbow/Forearm Strength Elbow and Forearm Manual Muscle Testing Left Extension (C7) 4- Good- Pronation 4- Good- Right Flexion (C6) 4+ Good+ Extension (C7) 4+ Good+ Wrist Strength Wrist Manual Muscle Testing Right Flexion (C7) 4- Good- Extension (C6) 4- Good- Hand Senior Clinical Consultant/Pinch Strength Hand Strength Left Comments 40,40, after a few UE ex: 24, 38lbs elbow bent rested on chair arm at side. Right Comments 24, 24, after a few UE ex; 12,20 lbs elbow bent rested on chair arm at side. PT-OP-Q Treatments Start: 01/05/19 16:21 Freq: Status: Active Protocol: Document 04/10/20 09:00 [facility] (Rec: 04/10/20 09:41 [facility] [id number]) Cardio Equipment Recumbent Elliptical (BiodLikeAndy) Duration (Minutes) 10 Resistance 1 Seat Position 5 Gait Training Gait Activity gait Comments 2 min walk test x 1: 297' with FWW Self-Care/Home Management Treatment Education Other Education discussion of pacing, trade- off of decreased exercise to allow her to tolerate other activities as needed PT-OP-T Assessment and Plan Start: 01/05/19 16:21 Freq: Status: Active Protocol: Document 04/10/20 09:00 [facility] (Rec: 04/10/20 09:41 [facility] [id number]) Physical Therapy Assessment Goals Three Impairment strength Intermediate Goal (LTG) Establish well-tolerated aquatic exercise program and HEP focused on strengthening and balance for patient with patient demonstrated independence and compliance and demonstrate good knowledge of how to modify depending on symptoms. 06/22/19: goal progress 08/16/19: decline in LE strength left side, will need modification. Patient lost written HEP during move, and stress of move didn't allow her to exercise. 01/24/20: Patient has written ex for supine, sitting, and standing depending on how she is doing and what she feels she can tolerate any given day . Has been trying to walk most days. LTG Duration 04/25/20 Two Impairment balance Short Term Goal (STG) Complete objective balance testing for baseline measurements 06/06/19: goal progress 06/22/19: further testing reveals good balance, cane required more for fatigue 11/16/19: decline in balance noted with SLS and tandem stand today, denies any falls. Alarm Installation Technician Goal (LTG) Patient to be safe and independent with gait on level and uneven surfaces with least restrictive device, and have no reported falls. Will be compliant with recommendations for home safety. 06/22/19: patient currently using single point cane for gait. Feel she would benefit from use of 4WW in the community to allow her to rest when needed, but she is resistant to this at this time . 06/06/19: good goal progress 11/16/19: patient now using 4WW in community as recommended previously due to decline in strength and activity tolerance. Decreased foot clearance with gait noted today which increases fall risk. Will need addition and modification to HEP. 01/24/20: Patient has been ambulating with 4WW primarily, although today able to ambulate with straight cane for first time in weeks. She attributes this to possibly taking antibiotics. LTG Duration 04/25/20 One Impairment activity tolerance Short Term Goal (STG) instruct in energy conservation and pacing 06/06/19: goal met STG Duration MET Alarm Installation Technician Goal (LTG) Patient to demonstrate good understanding and compliance with energy conservation and pacing of activities. 06/22/19: good goal progress 11/16/19: due to decline in strength and function, needs further education and modification 04/25/20: continues to require modification due to variability of patient's energy level and activity tolerance. Today her activity tolerance was increased to her max of 310' on 2 min walk test. LTG Duration 04/25/20 Assessment Summary Assessment 297' 2 min walk, improved energy level, which patient is attributing to change in diet vs IVIG. Continue with patient education for pacing and prioritizing of activities and exercises with patient demonstrating improving understanding and follow- through. Physical Therapy Plan Frequency and Duration Frequency of Treatment 1x/Week Duration of Treatment 12 wks Plan of Care Start Date 01/24/20 Plan of Care End Date 04/25/20 Therapeutic Interventions Therapeutic Interventions Aquatic Therapy,Balance Training,Coordination Training ,Gait Training,Home Exercise Program,Neuromuscular Re- education,Self-Care/Home Management,Therapeutic Activities,Therapeutic Exercises Next Visit Focus/Plan Next Note Type Treatment Note Next Visit Plan LE strength testing, continue gentle ther ex, patient education, self-care and activity modification education.
--- NOTE | 2020-04-16 14:58 | PT.OTN ---
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) Muscle weakness (generalized) (04/16/20) Physical Therapy Treatment Note PT-OP-A Visit Information Start: 01/05/19 16:21 Freq: Status: Active Protocol: Document 04/16/20 09:46 SAK (Rec: 04/16/20 10:30 SAK [id number]) Out-Patient Physical Therapy Visit Information Visit Information Visit Type Treatment Note Visit Start Time 09:45 Visit Stop Time 10:30 Total Visit Minutes 45 Visit Number 35 PT-OP-B Current Condition Start: 01/05/19 16:21 Freq: Status: Active Protocol: Document 01/06/19 12:57 SAK (Rec: 01/06/19 13:25 SAK [id number]) Current Condition History of Current Condition Onset Date 4 yrs Current Complaints LE weakness and achiness, SOB History of Current Condition Gradual progressive weakness, started using cane May 2017. Has been seeing specialists and having tests with diagnosis of possible indeterminate type of muscular dystrophy. Also reports exercise intolerance with SOB, increasing fatigue, need for much slower pace. The more I do the worse I feel . Hoping to see if she can establish an exercise program that will not exhaust her. Requesting possible aquatic therapy. Difficulty getting out of chairs, off floor. 2018 8-10 falls, this year being more careful, last fall was in July. Has not suffererd injury. Started Prednisone yesterday 15 mg. Prior experience with Prednisone caused migraine; has headache but not migraine. LE weakness symmetrical, no numbness or tingling. With falls, reports usually [address] Frequently uses cane or walker. No dizziness. BP well-managed. Uses electric tricycle. Has recumbant exercise bike, reports not using, has tendency to overdo. Also weakness in UE's; hard to wash hair, can't hold chair springer, can only get 1 plate out of cupboard at a time, doesn't carry groceries. Stool in shower, can dress self. Trip to [place] next week, has anxiety about being able to tolerate. Prior Treatments and Tests muscle biopsy negative [facility] neurologist States MS and ALS ruled out as diagnoses. Future Testing and Treatments Planned Spoke today with Claudy Sotelo, doctor inclusion body myositis specialist at [facility] in [place]; has February 16 appointment Patient reports a second muscle biopsy recommended by [facility] physician Treatment Goals Patient/Caregiver Goals Improve strength/maintain, establish exercise program. Hoping for aquatic therapy. Had difficulty getting in/out of pool and felt uncoordinated last time in pool. Knows how to swim, but body has changed and it felt very difficult. Prior Functional Status Baseline Function- ADL's Independent Baseline Function- Mobility Independent Baseline Function- Gait independent without device Baseline Function- Work/School retired Baseline Function- Recreation/Hobbies walk, bike, hike Current Functional Impairments (Reported) Functional Limitations- ADL's slow, fatiguing Functional Limitations- Mobility/Gait very limited with c/o SOB, frequent rest breaks Functional Limitations- Work/School retired Functional Limitations- Recreation/ unable except has electric Hobbies tricycle PT-OP-C Subjective Start: 01/05/19 16:21 Freq: Status: Active Protocol: Document 04/16/20 09:46 SAK (Rec: 04/16/20 10:30 SAK [id number]) OP-PT Subjective Patient Comments Patient Comments No new c/o; had a busy 3 days then crashed last week. Thinking of modifying anti- inflammatory diet. States she feels a little better in am, but still fatigues quite easily. Has been riding her exercise bike, L2 up to 15 min . Walking very tiring, has difficulty with planning outings. PT-OP-D Balance Start: 01/05/19 16:21 Freq: Status: Active Protocol: Document 06/06/19 08:59 SAK (Rec: 06/06/19 13:50 SAK [id number]) Balance Tests Sheth Balance Test Sheth Balance Test Score 53 Sheth Impairment Rating 1 to 19% Impaired (Score 45-55 ) PT-OP-E Functional Tests Start: 01/05/19 16:21 Freq: Status: Active Protocol: Document 07/20/19 09:01 SAK (Rec: 07/20/19 10:00 SAK [id number]) Functional Tests 6 Minute Walk Test Comments not done due to fatigue PT-OP-G Mobility & Gait Start: 01/05/19 16:21 Freq: Status: Active Protocol: Document 07/04/19 11:54 SP (Rec: 07/04/19 11:56 SP [id number]) OP Mobility Evaluation Bed Mobility Rolling I Supine to and from Sit I Transfers Sit to Stand Indep, no hands initially. Requires use of hands with fatigue PT-OP-H Neuro Start: 01/05/19 16:21 Freq: Status: Active Protocol: Document 06/06/19 08:59 [facility] (Rec: 06/06/19 13:50 [facility] [id number]) Sensation Evaluation Gross Sensation Gross Sensation WNL PT-OP-J Posture/Palpation/Skin Start: 01/05/19 16:21 Freq: Status: Active Protocol: Document 01/06/19 12:57 [facility] (Rec: 01/09/19 12:55 [facility] [id number]) Skin Assessment Other Assessments Skin Assessment Comments intact, no edema or brusing evident PT-OP-K Range of Motion Start: 01/05/19 16:21 Freq: Status: Active Protocol: Document 01/06/19 12:57 [facility] (Rec: 01/09/19 12:55 [facility] [id number]) Cervical Spine Range of Motion Cervical Spine Active Comments WNL Lumbar Spine Range of Motion Lumbar Spine Active Comments WNL Shoulder Goniometric Range of Motion Shoulder left Shoulder ROM WFL Yes right Shoulder ROM WFL Yes Elbow/Forearm Range of Motion Elbow/Forearm girma Elbow/Forearm ROM WFL Yes Wrist Goniometric Range of Motion Wrist girma Wrist ROM WFL Yes Hip Goniometric Range of Motion Hip girma Hip ROM WFL Yes Knee Goniometric Range of Motion Knee girma Knee ROM WFL Yes Ankle and Foot Goniometric Range of Motion Ankle and Foot girma Ankle/Foot ROM WFL Yes PT-OP-M Strength Start: 01/05/19 16:21 Freq: Status: Active Protocol: Document 03/26/20 11:38 [facility] (Rec: 03/26/20 12:11 [facility] [id number]) Shoulder Strength Shoulder Manual Muscle Testing Left Flexion 4- Good- Extension 4 Good Right Flexion 4+ Good+ Extension 4+ Good+ Elbow/Forearm Strength Elbow and Forearm Manual Muscle Testing Left Extension (C7) 4- Good- Pronation 4- Good- Right Flexion (C6) 4+ Good+ Extension (C7) 4+ Good+ Wrist Strength Wrist Manual Muscle Testing Right Flexion (C7) 4- Good- Extension (C6) 4- Good- Hand Report Programmer/Pinch Strength Hand Strength Left Comments 40,40, after a few UE ex: 24, 38lbs elbow bent rested on chair arm at side. Right Comments 24, 24, after a few UE ex; 12,20 lbs elbow bent rested on chair arm at side. PT-OP-Q Treatments Start: 01/05/19 16:21 Freq: Status: Active Protocol: Document 04/16/20 09:46 [facility] (Rec: 04/16/20 10:30 [facility] [id number]) Cardio Equipment Recumbent Elliptical (Biodex) Duration (Minutes) 10 Resistance 1 Seat Position 5 Gym Equipment Shuttle Balance 1 Details red Comments balance and weight shift fwd/ bck, side/side Therapeutic Exercises Sitting Exercises horizontal abduction Reps/Minutes 3x Comments with deep breathing hip abd Resistance TB #2 Reps/Minutes x5 hip add Sitting Exercise Name ball squeeze Reps/Minutes 10 (2 sec hold each) LAQ Reps/Minutes 5x ea Gait Training Gait Activity gait Comments 2 min walk test x 1 296' with FWW Self-Care/Home Management Treatment Education Other Education Continue discussion of pacing, trade-off of decreased exercise to allow her to tolerate other activities as needed PT-OP-T Assessment and Plan Start: 01/05/19 16:21 Freq: Status: Active Protocol: Document 04/16/20 09:46 [facility] (Rec: 04/16/20 10:30 [facility] [id number]) Physical Therapy Assessment Goals Three Impairment strength Accounting Systems Analyst Goal (LTG) Establish well-tolerated aquatic exercise program and HEP focused on strengthening and balance for patient with patient demonstrated independence and compliance and demonstrate good knowledge of how to modify depending on symptoms. 06/22/19: goal progress 08/16/19: decline in LE strength left side, will need modification. Patient lost written HEP during move, and stress of move didn't allow her to exercise. 01/24/20: Patient has written ex for supine, sitting, and standing depending on how she is doing and what she feels she can tolerate any given day . Has been trying to walk most days. LTG Duration 04/25/20 Two Impairment balance Short Term Goal (STG) Complete objective balance testing for baseline measurements 06/06/19: goal progress 06/22/19: further testing reveals good balance, cane required more for fatigue 11/16/19: decline in balance noted with SLS and tandem stand today, denies any falls. Accounting Systems Analyst Goal (LTG) Patient to be safe and independent with gait on level and uneven surfaces with least restrictive device, and have no reported falls. Will be compliant with recommendations for home safety. 06/22/19: patient currently using single point cane for gait. Feel she would benefit from use of 4WW in the community to allow her to rest when needed, but she is resistant to this at this time . 06/06/19: good goal progress 11/16/19: patient now using 4WW in community as recommended previously due to decline in strength and activity tolerance. Decreased foot clearance with gait noted today which increases fall risk. Will need addition and modification to HEP. 01/24/20: Patient has been ambulating with 4WW primarily, although today able to ambulate with straight cane for first time in weeks. She attributes this to possibly taking antibiotics. LTG Duration 04/25/20 One Impairment activity tolerance Short Term Goal (STG) instruct in energy conservation and pacing 06/06/19: goal met STG Duration MET Senior Care Goal (LTG) Patient to demonstrate good understanding and compliance with energy conservation and pacing of activities. 06/22/19: good goal progress 11/16/19: due to decline in strength and function, needs further education and modification 04/25/20: continues to require modification due to variability of patient's energy level and activity tolerance. Today her activity tolerance was increased to her max of 310' on 2 min walk test. LTG Duration 04/25/20 Assessment Summary Assessment Reviewed patient's sitting HEP , pacing and prioritizing of her activities as at last session; patient demonstrating improved understanding and followl-through. Physical Therapy Plan Frequency and Duration Frequency of Treatment 1x/Week Duration of Treatment 12 wks Plan of Care Start Date 01/24/20 Plan of Care End Date 04/25/20 Therapeutic Interventions Therapeutic Interventions Aquatic Therapy,Balance Training,Coordination Training ,Gait Training,Home Exercise Program,Neuromuscular Re- education,Self-Care/Home Management,Therapeutic Activities,Therapeutic Exercises Next Visit Focus/Plan Next Note Type Treatment Note Next Visit Plan Review any HEP as needed, upgrade as tolerated with further options for increasing or decreasing difficulty as indicated. Anticipate discharge after next PT session.
--- NOTE | 2020-05-29 08:40 | PT.OTRE ---
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) Muscle weakness (generalized) (05/28/20) Past Medical History (Last Updated 02/09/20 @ 11:53 by JENAE Mark) Abdominal pain Activity intolerance Anosmia Atypical chest pain Cervical dystonia (1986) Chicken pox (1956) Cholecystectomy planned Chronic fatigue (08/07/15) Colon polyps Cough CTS (carpal tunnel syndrome) (1986) Denervation of muscle Depression (1974) Diastasis of rectus abdominis (08/07/15) Dyspnea Dyspnea on exertion Episodic lightheadedness Fatigue Gastritis Generalized abdominal pain (08/07/15) Headache Hyperlipidemia Hypertension Itch of skin Measles (1957) Metallic taste (10/11/15) Mumps (1958) Neoplasm of uncertain behavior of skin (10/11/15) NSAID induced gastritis Osteopenia after menopause Peripheral neuropathy (2012) Piriformis syndrome of right side Progressive neurological disorder Right hip pain Shortness of breath (08/27/15) Sjogren's syndrome (2012) Skin cancer (2015) Sleep apnea (2009) Small fiber polyneuropathy SOB (shortness of breath) (2010) Status post DANILO-BSO Visual disturbance Surgical History (Last Reviewed 01/19/20 @ 14:13 by Fabian Lagos MD) Anesthesia complication History of carpal tunnel repair (1989) History of cervical spinal surgery (07/2008) History of laparoscopic cholecystectomy (2006) S/P DANILO-BSO (total abdominal hysterectomy and bilateral salpingo-oophorectomy) (01/2007) Status post hernia repair (2013) Status post hernia repair (2007) Visit Care Team Role Provider Type JENAE Mark Family Provider Advanced Fishing Rod Trimmer Primary Care Provider Specialty: Family Practice Address: [address] [place] [address], [id number] Email: [email or web address] Julian Meza MD Attending Provider Non-Staff Specialty: Neurology Address: [address] [place] [address], [phone] Email: Physical Therapy Re-Evaluation PT-OP-A Visit Information Start: 01/05/19 16:21 Freq: Status: Active Protocol: Document 05/28/20 09:02 [facility] (Rec: 05/28/20 09:43 [facility] [id number]) Out-Patient Physical Therapy Visit Information Visit Information Visit Type Treatment Note Visit Start Time 09:02 Visit Stop Time 09:41 Total Visit Minutes 39 Visit Number 36 PT-OP-B Current Condition Start: 01/05/19 16:21 Freq: Status: Active Protocol: Document 01/06/19 12:57 [facility] (Rec: 01/06/19 13:25 [facility] [id number]) Current Condition History of Current Condition Onset Date 4 yrs Current Complaints LE weakness and achiness, SOB History of Current Condition Gradual progressive weakness, started using cane May 2017. Has been seeing specialists and having tests with diagnosis of possible indeterminate type of muscular dystrophy. Also reports exercise intolerance with SOB, increasing fatigue, need for much slower pace. The more I do the worse I feel . Hoping to see if she can establish an exercise program that will not exhaust her. Requesting possible aquatic therapy. Difficulty getting out of chairs, off floor. 2018 8-10 falls, this year being more careful, last fall was in July. Has not suffererd injury. Started Prednisone yesterday 15 mg. Prior experience with Prednisone caused migraine; has headache but not migraine. LE weakness symmetrical, no numbness or tingling. With falls, reports usually [address] Frequently uses cane or walker. No dizziness. BP well-managed. Uses electric tricycle. Has recumbant exercise bike, reports not using, has tendency to overdo. 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 Stool in shower, can dress self. Trip to [place] next week, has anxiety about being able to tolerate. Prior Treatments and Tests muscle biopsy negative [facility] neurologist States MS and ALS ruled out as diagnoses. Future Testing and Treatments Planned Spoke today with Claudy Sotelo, doctor inclusion body myositis specialist at [facility] in [place]; has February 16 appointment Patient reports a second muscle biopsy recommended by [facility] physician Treatment Goals Patient/Caregiver Goals Improve strength/maintain, establish exercise program. Hoping for aquatic therapy. Had difficulty getting in/out of pool and felt uncoordinated last time in pool. Knows how to swim, but body has changed and it felt very difficult. Prior Functional Status Baseline Function- ADL's Independent Baseline Function- Mobility Independent Baseline Function- Gait independent without device Baseline Function- Work/School retired Baseline Function- Recreation/Hobbies walk, bike, hike Current Functional Impairments (Reported) Functional Limitations- ADL's slow, fatiguing Functional Limitations- Mobility/Gait very limited with c/o SOB, frequent rest breaks Functional Limitations- Work/School retired Functional Limitations- Recreation/ unable except has electric Hobbies tricycle PT-OP-C Subjective Start: 01/05/19 16:21 Freq: Status: Active Protocol: Document 05/28/20 09:02 [facility] (Rec: 05/28/20 09:43 [facility] [id number]) OP-PT Subjective Patient Comments Patient Comments Achiness and SOB worse over past couple weeks. Has contacted her physician by phone and email but hasn't heard back. Yesterday only able to take a shower, get dressed, no other activity. Hoping to get IVIG this week. SOB worst thing. Also arms feel very tired. No LOB or falls, needs to use walker or cane. No N/T. PT-OP-D Balance Start: 01/05/19 16:21 Freq: Status: Active Protocol: Document 06/06/19 08:59 [facility] (Rec: 06/06/19 13:50 [facility] [id number]) Balance Tests Sheth Balance Test Sheth Balance Test Score 53 Sheth Impairment Rating 1 to 19% Impaired (Score 45-55 ) PT-OP-E Functional Tests Start: 01/05/19 16:21 Freq: Status: Active Protocol: Document 07/20/19 09:01 [facility] (Rec: 07/20/19 10:00 [facility] [id number]) Functional Tests 6 Minute Walk Test Comments not done due to fatigue PT-OP-G Mobility & Gait Start: 01/05/19 16:21 Freq: Status: Active Protocol: Document 07/04/19 11:54 [facility] (Rec: 07/04/19 11:56 [facility] [id number]) OP Mobility Evaluation Bed Mobility Rolling I Supine to and from Sit I Transfers Sit to Stand Indep, no hands initially. Requires use of hands with fatigue PT-OP-H Neuro Start: 01/05/19 16:21 Freq: Status: Active Protocol: Document 06/06/19 08:59 [facility] (Rec: 06/06/19 13:50 [facility] [id number]) Sensation Evaluation Gross Sensation Gross Sensation WNL PT-OP-J Posture/Palpation/Skin Start: 01/05/19 16:21 Freq: Status: Active Protocol: Document 01/06/19 12:57 [facility] (Rec: 01/09/19 12:55 [facility] [id number]) Skin Assessment Other Assessments Skin Assessment Comments intact, no edema or brusing evident PT-OP-K Range of Motion Start: 01/05/19 16:21 Freq: Status: Active Protocol: Document 01/06/19 12:57 [facility] (Rec: 01/09/19 12:55 [facility] [id number]) Cervical Spine Range of Motion Cervical Spine Active Comments WNL Lumbar Spine Range of Motion Lumbar Spine Active Comments WNL Shoulder Goniometric Range of Motion Shoulder Measured in Degrees left Shoulder ROM WFL Yes right Shoulder ROM WFL Yes Elbow/Forearm Range of Motion Elbow/Forearm Measured in Degrees girma Elbow/Forearm ROM WFL Yes Wrist Goniometric Range of Motion Wrist Measured in Degrees girma Wrist ROM WFL Yes Hip Goniometric Range of Motion Hip Measured in Degrees girma Hip ROM WFL Yes Knee Goniometric Range of Motion Knee Measured in Degrees girma Knee ROM WFL Yes Ankle and Foot Goniometric Range of Motion Ankle and Foot Measured in Degrees girma Ankle/Foot ROM WFL Yes PT-OP-M Strength Start: 01/05/19 16:21 Freq: Status: Active Protocol: Document 03/26/20 11:38 [facility] (Rec: 03/26/20 12:11 [facility] [id number]) Shoulder Strength Shoulder Manual Muscle Testing Left Flexion 4- Good- Extension 4 Good Right Flexion 4+ Good+ Extension 4+ Good+ Elbow/Forearm Strength Elbow and Forearm Manual Muscle Testing Left Extension (C7) 4- Good- Pronation 4- Good- Right Flexion (C6) 4+ Good+ Extension (C7) 4+ Good+ Wrist Strength Wrist Manual Muscle Testing Right Flexion (C7) 4- Good- Extension (C6) 4- Good- Hand Trench Shovel Operator/Pinch Strength Hand Strength Left Comments 40,40, after a few UE ex: 24, 38lbs elbow bent rested on chair arm at side. Right Comments 24, 24, after a few UE ex; 12,20 lbs elbow bent rested on chair arm at side. PT-OP-Q Treatments Start: 01/05/19 16:21 Freq: Status: Active Protocol: Document 05/28/20 09:02 [facility] (Rec: 05/28/20 09:43 [facility] [id number]) Cardio Equipment Recumbent Bicycle Duration (Minutes) 5 Resistance 1 Seat Position 1 Therapeutic Exercises Sitting Exercises horizontal abduction Reps/Minutes 3x Comments with deep breathing shoulder blade squeeze Resistance TB 1 Reps/Minutes Hold for 5 sec x5 pec stretch Reps/Minutes 2x with deep breathing Therapeutic Activity Therapeutic Activity deep breathing Name alternating abdominal and chest Reps/Minutes 1 min Gait Training Gait Activity gait Comments 2 min walk test x 1 203' with FWW Self-Care/Home Management Treatment Education Other Education Deep breathing, postural correction importance, consider use of power wheelchair to allow increased mobility with decreased energy expenditure. PT-OP-T Assessment and Plan Start: 01/05/19 16:21 Freq: Status: Active Protocol: Document 05/28/20 09:02 [facility] (Rec: 05/28/20 09:43 [facility] [id number]) Physical Therapy Assessment Goals Three Impairment strength Halfway Goal (LTG) Establish well-tolerated aquatic exercise program and HEP focused on strengthening and balance for patient with patient demonstrated independence and compliance and demonstrate good knowledge of how to modify depending on symptoms. 06/22/19: goal progress 08/16/19: decline in LE strength left side, will need modification. Patient lost written HEP during move, and stress of move didn't allow her to exercise. 01/24/20: Patient has written ex for supine, sitting, and standing depending on how she is doing and what she feels she can tolerate any given day . Has been trying to walk most days. 05/28/20: Patient reports she has been unable to perform exercises past couple weeks due to SOB, fatigue, achiness. Hasn't felt up to trying ex bike. LTG Duration 08/27/20 Two Impairment balance Short Term Goal (STG) Complete objective balance testing for baseline measurements 06/06/19: goal progress 06/22/19: further testing reveals good balance, cane required more for fatigue 11/16/19: decline in balance noted with SLS and tandem stand today, denies any falls. Steam Powerplant Supervisor Goal (LTG) Patient to be safe and independent with gait on level and uneven surfaces with least restrictive device, and have no reported falls. Will be compliant with recommendations for home safety. 06/22/19: patient currently using single point cane for gait. Feel she would benefit from use of 4WW in the community to allow her to rest when needed, but she is resistant to this at this time . 06/06/19: good goal progress 11/16/19: patient now using 4WW in community as recommended previously due to decline in strength and activity tolerance. Decreased foot clearance with gait noted today which increases fall risk. Will need addition and modification to HEP. 01/24/20: Patient has been ambulating with 4WW primarily, although today able to ambulate with straight cane for first time in weeks. She attributes this to possibly taking antibiotics. 05/28/20: No change noted in balance functionally, though patient unable to tolerate formal balance testing LTG Duration 08/27/20 One Impairment activity tolerance Short Term Goal (STG) instruct in energy conservation and pacing 06/06/19: goal met STG Duration MET Halfway Goal (LTG) Patient to demonstrate good understanding and compliance with energy conservation and pacing of activities. 06/22/19: good goal progress 11/16/19: due to decline in strength and function, needs further education and modification 04/25/20: continues to require modification due to variability of patient's energy level and activity tolerance. Today her activity tolerance was increased to her max of 310' on 2 min walk test. 05/28/20: much discussion required regarding modification of activity level and patient to consider use of power wheelchair for improved mobility less energy expenture. Also reviewed importance of gentle postural correction and deep breathing techniques to improve lung capacity. LTG Duration 08/27/20 Assessment Summary Assessment 203' 2 min walk with use of 4WW(decrease from 296' last session). Patient unable to to tolerate MMT due to fatigue and achiness. Trial ex bike x 5 min at lowest resistance, patient with heavy fatigue. Discussed importance of deep breathing techniques for relaxation, improved oxygenation as well as gentle postural exercises to improve lung capacity. Also discussed potential use of power wheelchair to improve patient mobility with less energy expenditure; patient to consider. She is hoping to receive IVIG again this week and is waiting to hear from physician regarding her increased achiness and SOB. O2 sats remained 97-99% throughout PT session. Recommend continued PT to monitor patient status, modify HEP as indicated, continue breathing exercise instruction and progression, assist with modifications for mobility as indicated. Physical Therapy Plan Frequency and Duration Frequency of Treatment Every Other Week Duration of Treatment 12 wks Plan of Care Start Date 05/28/20 Plan of Care End Date 08/27/20 Therapeutic Interventions Therapeutic Interventions Aquatic Therapy,Balance Training,Coordination Training ,Gait Training,Home Exercise Program,Neuromuscular Re- education,Self-Care/Home Management,Therapeutic Activities,Therapeutic Exercises Next Visit Focus/Plan Next Note Type Treatment Note Next Visit Plan Follow up in 3-4 weeks after patient sees physician, potentially has IVIG again. Patient to consider use of power wheelchair to allow her to be more mobile with less energy exertion.
--- NOTE | 2020-07-04 16:11 | PT.OTN ---
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) Muscle weakness (generalized) (07/04/20) Physical Therapy Treatment Note PT-OP-A Visit Information Start: 01/05/19 16:21 Freq: Status: Active Protocol: Document 07/04/20 11:17 SAK (Rec: 07/04/20 11:59 SAK [id number]) Out-Patient Physical Therapy Visit Information Visit Information Visit Type Treatment Note Visit Start Time 11:15 Visit Stop Time 12:00 Total Visit Minutes 45 Visit Number 37 Number of EMT DRIVER Visits 0 PT-OP-B Current Condition Start: 01/05/19 16:21 Freq: Status: Active Protocol: Document 01/06/19 12:57 SAK (Rec: 01/06/19 13:25 SAK [id number]) Current Condition History of Current Condition Onset Date 4 yrs Current Complaints LE weakness and achiness, SOB History of Current Condition Gradual progressive weakness, started using cane May 2017. Has been seeing specialists and having tests with diagnosis of possible indeterminate type of muscular dystrophy. Also reports exercise intolerance with SOB, increasing fatigue, need for much slower pace. The more I do the worse I feel . Hoping to see if she can establish an exercise program that will not exhaust her. Requesting possible aquatic therapy. Difficulty getting out of chairs, off floor. 2018 8-10 falls, this year being more careful, last fall was in July. Has not suffererd injury. Started Prednisone yesterday 15 mg. Prior experience with Prednisone caused migraine; has headache but not migraine. LE weakness symmetrical, no numbness or tingling. With falls, reports usually [address] Frequently uses cane or walker. No dizziness. BP well-managed. Uses electric tricycle. Has recumbant exercise bike, reports not using, has tendency to overdo. 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 Stool in shower, can dress self. Trip to [place] next week, has anxiety about being able to tolerate. Prior Treatments and Tests muscle biopsy negative [facility] neurologist States MS and ALS ruled out as diagnoses. Future Testing and Treatments Planned Spoke today with Claudy Sotelo, doctor inclusion body myositis specialist at [facility] in [place]; has February 16 appointment Patient reports a second muscle biopsy recommended by [facility] physician Treatment Goals Patient/Caregiver Goals Improve strength/maintain, establish exercise program. Hoping for aquatic therapy. Had difficulty getting in/out of pool and felt uncoordinated last time in pool. Knows how to swim, but body has changed and it felt very difficult. Prior Functional Status Baseline Function- ADL's Independent Baseline Function- Mobility Independent Baseline Function- Gait independent without device Baseline Function- Work/School retired Baseline Function- Recreation/Hobbies walk, bike, hike Current Functional Impairments (Reported) Functional Limitations- ADL's slow, fatiguing Functional Limitations- Mobility/Gait very limited with c/o SOB, frequent rest breaks Functional Limitations- Work/School retired Functional Limitations- Recreation/ unable except has electric Hobbies tricycle PT-OP-C Subjective Start: 01/05/19 16:21 Freq: Status: Active Protocol: Document 07/04/20 11:17 [facility] (Rec: 07/04/20 11:59 [facility] [id number]) OP-PT Subjective Patient Comments Patient Comments Since last seen states she has had worsened SOB, mostly using wheelchair, was unable to stand long enough to brush teeth or do other ADL's. Hasn 't gone anywhere until today. O2 sats have been 98%. 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 Recommended COVID test: negative. States she was feeling weaker, had to use wheelchair, couldn't hardly move. Never heard back from neurologist about whether or not to still do IVIG. Went ahead and did the IVIG, experienced high BP got phlebitis in her arm. No benefit from the IVIG. Had dystonia appointment scheduled to see neurologist, got usual dystonia shot. Had another appointment 2 weeks later still weak and SOB, no benefit from IVIG. Waste Recycler says not a pulmonary issue. Differential diagnosis includes inclusion body myositis vs MG vs CIDP. Patient also asked for referral to another neurologist for 2nd opinioin; started 30mg TID Mestinon, increased now to 60 mg TID. Feels SOB improved, felt legs stronger, today first day trying not to use w/c. Thinking MG probably the issue . Will be seeing new neurologist 07/12/20 Dr. Ferrer . Is going to attend virtual MG support group meeting this Thursday. Wants more PT to work on walking with less support. Bloodwork also showed mild anemia. PT-OP-D Balance Start: 01/05/19 16:21 Freq: Status: Active Protocol: Document 06/06/19 08:59 SAK (Rec: 06/06/19 13:50 SAK [id number]) Balance Tests Sheth Balance Test Sheth Balance Test Score 53 Sheth Impairment Rating 1 to 19% Impaired (Score 45-55 ) PT-OP-E Functional Tests Start: 01/05/19 16:21 Freq: Status: Active Protocol: Document 07/20/19 09:01 SAK (Rec: 07/20/19 10:00 SAK [id number]) Functional Tests 6 Minute Walk Test Comments not done due to fatigue PT-OP-G Mobility & Gait Start: 01/05/19 16:21 Freq: Status: Active Protocol: Document 07/04/19 11:54 SP (Rec: 07/04/19 11:56 SP [id number]) OP Mobility Evaluation Bed Mobility Rolling I Supine to and from Sit I Transfers Sit to Stand Indep, no hands initially. Requires use of hands with fatigue PT-OP-H Neuro Start: 01/05/19 16:21 Freq: Status: Active Protocol: Document 06/06/19 08:59 SAK (Rec: 06/06/19 13:50 SAK [id number]) Sensation Evaluation Gross Sensation Gross Sensation WNL PT-OP-J Posture/Palpation/Skin Start: 01/05/19 16:21 Freq: Status: Active Protocol: Document 01/06/19 12:57 SAK (Rec: 01/09/19 12:55 SAK [id number]) Skin Assessment Other Assessments Skin Assessment Comments intact, no edema or brusing evident PT-OP-K Range of Motion Start: 01/05/19 16:21 Freq: Status: Active Protocol: Document 01/06/19 12:57 SAK (Rec: 01/09/19 12:55 SAK [id number]) Cervical Spine Range of Motion Cervical Spine Active Comments WNL Lumbar Spine Range of Motion Lumbar Spine Active Comments WNL Shoulder Goniometric Range of Motion Shoulder left Shoulder ROM WFL Yes right Shoulder ROM WFL Yes Elbow/Forearm Range of Motion Elbow/Forearm girma Elbow/Forearm ROM WFL Yes Wrist Goniometric Range of Motion Wrist girma Wrist ROM WFL Yes Hip Goniometric Range of Motion Hip girma Hip ROM WFL Yes Knee Goniometric Range of Motion Knee girma Knee ROM WFL Yes Ankle and Foot Goniometric Range of Motion Ankle and Foot girma Ankle/Foot ROM WFL Yes PT-OP-M Strength Start: 01/05/19 16:21 Freq: Status: Active Protocol: Document 03/26/20 11:38 [facility] (Rec: 03/26/20 12:11 [facility] [id number]) Shoulder Strength Shoulder Manual Muscle Testing Left Flexion 4- Good- Extension 4 Good Right Flexion 4+ Good+ Extension 4+ Good+ Elbow/Forearm Strength Elbow and Forearm Manual Muscle Testing Left Extension (C7) 4- Good- Pronation 4- Good- Right Flexion (C6) 4+ Good+ Extension (C7) 4+ Good+ Wrist Strength Wrist Manual Muscle Testing Right Flexion (C7) 4- Good- Extension (C6) 4- Good- Hand Supervisor Incising/Pinch Strength Hand Strength Left Comments 40,40, after a few UE ex: 24, 38lbs elbow bent rested on chair arm at side. Right Comments 24, 24, after a few UE ex; 12,20 lbs elbow bent rested on chair arm at side. PT-OP-Q Treatments Start: 01/05/19 16:21 Freq: Status: Active Protocol: Document 05/28/20 09:02 [facility] (Rec: 05/28/20 09:43 [facility] [id number]) Cardio Equipment Recumbent Bicycle Duration (Minutes) 5 Resistance 1 Seat Position 1 Therapeutic Exercises Sitting Exercises horizontal abduction Reps/Minutes 3x Comments with deep breathing shoulder blade squeeze Resistance TB 1 Reps/Minutes Hold for 5 sec x5 pec stretch Reps/Minutes 2x with deep breathing Therapeutic Activity Therapeutic Activity deep breathing Name alternating abdominal and chest Reps/Minutes 1 min Gait Training Gait Activity gait Comments 2 min walk test x 1 203' with FWW Self-Care/Home Management Treatment Education Other Education Deep breathing, postural correction importance, consider use of power wheelchair to allow increased mobility with decreased energy expenditure. PT-OP-T Assessment and Plan Start: 01/05/19 16:21 Freq: Status: Active Protocol: Document 07/04/20 11:17 [facility] (Rec: 07/04/20 11:59 SAK [id number]) Physical Therapy Assessment Goals Three Impairment strength Machine Filler Goal (LTG) Establish well-tolerated aquatic exercise program and HEP focused on strengthening and balance for patient with patient demonstrated independence and compliance and demonstrate good knowledge of how to modify depending on symptoms. 06/22/19: goal progress 08/16/19: decline in LE strength left side, will need modification. Patient lost written HEP during move, and stress of move didn't allow her to exercise. 01/24/20: Patient has written ex for supine, sitting, and standing depending on how she is doing and what she feels she can tolerate any given day . Has been trying to walk most days. 05/28/20: Patient reports she has been unable to perform exercises past couple weeks due to SOB, fatigue, achiness. Hasn't felt up to trying ex bike. 07/04/20: hip flex 4/5 right 4-/ 5 left, hip abduction 4+/5 right, 3-/5 left, adduction 4+ /5 right, 4-/5 left, knee extension 5/5 right, 4+/5 left . Functional weakness left hip and knee. LTG Duration 08/27/20 Two Impairment balance Short Term Goal (STG) Complete objective balance testing for baseline measurements 06/06/19: goal progress 06/22/19: further testing reveals good balance, cane required more for fatigue 11/16/19: decline in balance noted with SLS and tandem stand today, denies any fall Machine Filler Goal (LTG) Patient to be safe and independent with gait on level and uneven surfaces with least restrictive device, and have no reported falls. Will be compliant with recommendations for home safety. 06/22/19: patient currently using single point cane for gait. Feel she would benefit from use of 4WW in the community to allow her to rest when needed, but she is resistant to this at this time . 06/06/19: good goal progress 11/16/19: patient now using 4WW in community as recommended previously due to decline in strength and activity tolerance. Decreased foot clearance with gait noted today which increases fall risk. Will need addition and modification to HEP. 01/24/20: Patient has been ambulating with 4WW primarily, although today able to ambulate with straight cane for first time in weeks. She attributes this to possibly taking antibiotics. 05/28/20: No change noted in balance functionally, though patient unable to tolerate formal balance testing 07/04/20: SLS right 3 sec, left unable LTG Duration 08/27/20 One Impairment activity tolerance Short Term Goal (STG) instruct in energy conservation and pacing 06/06/19: goal met STG Duration MET Machine Filler Goal (LTG) Patient to demonstrate good understanding and compliance with energy conservation and pacing of activities. 06/22/19: good goal progress 11/16/19: due to decline in strength and function, needs further education and modification 07/04/20: ongoing education. Will need work on deep breathing and thoracic mobility to maximize breathing 04/25/20: continues to require modification due to variability of patient's energy level and activity tolerance. Today her activity tolerance was increased to her max of 310' on 2 min walk test. 05/28/20: much discussion required regarding modification of activity level and patient to consider use of power wheelchair for improved mobility less energy expenture. Also reviewed importance of gentle postural correction and deep breathing techniques to improve lung capacity. LTG Duration 08/27/20 Assessment Summary Assessment 297 ft in 3 min today. Biggest goals are to improve her walking and functional LE strength with less need for assistive device support, improved breathing through deep breathing exercises and thoracic mobility exercises, continue patient education and home program modification as needed. Physical Therapy Plan Frequency and Duration Frequency of Treatment Every Other Week Duration of Treatment 12 wks Plan of Care Start Date 05/28/20 Plan of Care End Date 08/27/20 Therapeutic Interventions Therapeutic Interventions Aquatic Therapy,Balance Training,Coordination Training ,Gait Training,Home Exercise Program,Neuromuscular Re- education,Self-Care/Home Management,Therapeutic Activities,Therapeutic Exercises Next Visit Focus/Plan Next Note Type Treatment Note Next Visit Plan evaluate response to last session, deep breathing exercises including emphasis on exhalation phase of breathing, thoracic mobility and LE strengthening exercises .
--- NOTE | 2020-07-19 16:26 | PT.OTN ---
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) Muscle weakness (generalized) (07/19/20) Physical Therapy Treatment Note PT-OP-A Visit Information Start: 01/05/19 16:21 Freq: Status: Active Protocol: Document 07/19/20 15:32 SAK (Rec: 07/19/20 16:25 SAK [id number]) Out-Patient Physical Therapy Visit Information Visit Information Visit Type Treatment Note Visit Start Time 15:20 Visit Stop Time 16:04 Total Visit Minutes 44 Visit Number 39 Number of ROOM MANAGER Visits 0 PT-OP-B Current Condition Start: 01/05/19 16:21 Freq: Status: Active Protocol: Document 01/06/19 12:57 SAK (Rec: 01/06/19 13:25 SAK [id number]) Current Condition History of Current Condition Onset Date 4 yrs Current Complaints LE weakness and achiness, SOB History of Current Condition Gradual progressive weakness, started using cane May 2017. Has been seeing specialists and having tests with diagnosis of possible indeterminate type of muscular dystrophy. Also reports exercise intolerance with SOB, increasing fatigue, need for much slower pace. The more I do the worse I feel . Hoping to see if she can establish an exercise program that will not exhaust her. Requesting possible aquatic therapy. Difficulty getting out of chairs, off floor. 2018 8-10 falls, this year being more careful, last fall was in July. Has not suffererd injury. Started Prednisone yesterday 15 mg. Prior experience with Prednisone caused migraine; has headache but not migraine. LE weakness symmetrical, no numbness or tingling. With falls, reports usually [address] Frequently uses cane or walker. No dizziness. BP well-managed. Uses electric tricycle. Has recumbant exercise bike, reports not using, has tendency to overdo. 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 Stool in shower, can dress self. Trip to [place] next week, has anxiety about being able to tolerate. Prior Treatments and Tests muscle biopsy negative [facility] neurologist States MS and ALS ruled out as diagnoses. Future Testing and Treatments Planned Spoke today with Claudy Sotelo, doctor inclusion body myositis specialist at [facility] in [place]; has February 16 appointment Patient reports a second muscle biopsy recommended by [facility] physician Treatment Goals Patient/Caregiver Goals Improve strength/maintain, establish exercise program. Hoping for aquatic therapy. Had difficulty getting in/out of pool and felt uncoordinated last time in pool. Knows how to swim, but body has changed and it felt very difficult. Prior Functional Status Baseline Function- ADL's Independent Baseline Function- Mobility Independent Baseline Function- Gait independent without device Baseline Function- Work/School retired Baseline Function- Recreation/Hobbies walk, bike, hike Current Functional Impairments (Reported) Functional Limitations- ADL's slow, fatiguing Functional Limitations- Mobility/Gait very limited with c/o SOB, frequent rest breaks Functional Limitations- Work/School retired Functional Limitations- Recreation/ unable except has electric Hobbies tricycle PT-OP-C Subjective Start: 01/05/19 16:21 Freq: Status: Active Protocol: Document 07/19/20 15:32 SAK (Rec: 07/19/20 16:25 SAK [id number]) OP-PT Subjective Patient Comments Patient Comments Feels medication helping a little, feels able to walk a little further but still feeling weaker left leg. Has had a couple episodes of difficulty getting water down. Had second Covid19 shot 07/16 had a few days of headache and nausea, better today. Feeling more sensation in her legs, not painful, more like tingling. Feels energylevel maybe a little better; not capable of more but feels exhausted. SOB much improved (about 90%). Feeling more fatigue in her arms while emailing though reports had stopped even Sees neurologist in [facility] next Thursday (Dr. Meza), and neurologist at [facility] in 2 weeks. PT-OP-D Balance Start: 01/05/19 16:21 Freq: Status: Active Protocol: Document 06/06/19 08:59 SAK (Rec: 06/06/19 13:50 SAK [id number]) Balance Tests Sheth Balance Test Sheth Balance Test Score 53 Sheth Impairment Rating 1 to 19% Impaired (Score 45-55 ) PT-OP-E Functional Tests Start: 01/05/19 16:21 Freq: Status: Active Protocol: Document 07/20/19 09:01 SAK (Rec: 07/20/19 10:00 SAK [id number]) Functional Tests 6 Minute Walk Test Comments not done due to fatigue PT-OP-G Mobility & Gait Start: 01/05/19 16:21 Freq: Status: Active Protocol: Document 07/04/19 11:54 SP (Rec: 07/04/19 11:56 SP [id number]) OP Mobility Evaluation Bed Mobility Rolling I Supine to and from Sit I Transfers Sit to Stand Indep, no hands initially. Requires use of hands with fatigue PT-OP-H Neuro Start: 01/05/19 16:21 Freq: Status: Active Protocol: Document 06/06/19 08:59 SAK (Rec: 06/06/19 13:50 SAK [id number]) Sensation Evaluation Gross Sensation Gross Sensation WNL PT-OP-J Posture/Palpation/Skin Start: 01/05/19 16:21 Freq: Status: Active Protocol: Document 01/06/19 12:57 SAK (Rec: 01/09/19 12:55 SAK [id number]) Skin Assessment Other Assessments Skin Assessment Comments intact, no edema or brusing evident PT-OP-K Range of Motion Start: 01/05/19 16:21 Freq: Status: Active Protocol: Document 01/06/19 12:57 SAK (Rec: 01/09/19 12:55 SAK [id number]) Cervical Spine Range of Motion Cervical Spine Active Comments WNL Lumbar Spine Range of Motion Lumbar Spine Active Comments WNL Shoulder Goniometric Range of Motion Shoulder left Shoulder ROM WFL Yes right Shoulder ROM WFL Yes Elbow/Forearm Range of Motion Elbow/Forearm girma Elbow/Forearm ROM WFL Yes Wrist Goniometric Range of Motion Wrist girma Wrist ROM WFL Yes Hip Goniometric Range of Motion Hip girma Hip ROM WFL Yes Knee Goniometric Range of Motion Knee girma Knee ROM WFL Yes Ankle and Foot Goniometric Range of Motion Ankle and Foot girma Ankle/Foot ROM WFL Yes PT-OP-M Strength Start: 01/05/19 16:21 Freq: Status: Active Protocol: Document 03/26/20 11:38 SAK (Rec: 03/26/20 12:11 SAK [id number]) Shoulder Strength Shoulder Manual Muscle Testing Left Flexion 4- Good- Extension 4 Good Right Flexion 4+ Good+ Extension 4+ Good+ Elbow/Forearm Strength Elbow and Forearm Manual Muscle Testing Left Extension (C7) 4- Good- Pronation 4- Good- Right Flexion (C6) 4+ Good+ Extension (C7) 4+ Good+ Wrist Strength Wrist Manual Muscle Testing Right Flexion (C7) 4- Good- Extension (C6) 4- Good- Hand Demi Chef/Pinch Strength Hand Strength Left Comments 40,40, after a few UE ex: 24, 38lbs elbow bent rested on chair arm at side. Right Comments 24, 24, after a few UE ex; 12,20 lbs elbow bent rested on chair arm at side. PT-OP-Q Treatments Start: 01/05/19 16:21 Freq: Status: Active Protocol: Document 07/19/20 15:32 [facility] (Rec: 07/19/20 16:25 [facility] [id number]) Gym Equipment Shuttle Recovery Unilateral Squats Resistance 25 right, 12 left Shuttle Recovery Platform Stable Reps/Time 10x Bilateral Squats Resistance 37 Shuttle Recovery Platform Stable Reps/Time 10x Therapeutic Exercises Supine Exercises overhead stretch Side bilateral Reps/Minutes 2x Comments with deep breathing pec stretch Side bilateral Reps/Minutes 2x Comments with deep breathing Sitting Exercises shoulder blade squeeze Resistance TB 1 Reps/Minutes Hold for 5 sec x5 Gait Training Gait Activity gait level without device Description parallel bars Level of Assistance SBA Surface firm Distance/Duration 2 laps Treatment Focus hip stability, safety Comments mirror for visual feedback, cues for gluteal activation gait Comments 3 min walk test 347'' with FWW Self-Care/Home Management Treatment Education Patient Education Home Exercise Program,Posture PT-OP-T Assessment and Plan Start: 01/05/19 16:21 Freq: Status: Active Protocol: Document 07/19/20 15:32 [facility] (Rec: 07/19/20 16:25 [facility] [id number]) Physical Therapy Assessment Goals Three Impairment strength Halfway Goal (LTG) Establish well-tolerated aquatic exercise program and HEP focused on strengthening and balance for patient with patient demonstrated independence and compliance and demonstrate good knowledge of how to modify depending on symptoms. 06/22/19: goal progress 08/16/19: decline in LE strength left side, will need modification. Patient lost written HEP during move, and stress of move didn't allow her to exercise. 01/24/20: Patient has written ex for supine, sitting, and standing depending on how she is doing and what she feels she can tolerate any given day . Has been trying to walk most days. 05/28/20: Patient reports she has been unable to perform exercises past couple weeks due to SOB, fatigue, achiness. Hasn't felt up to trying ex bike. 07/04/20: hip flex 4/5 right 4-/ 5 left, hip abduction 4+/5 right, 3-/5 left, adduction 4+ /5 right, 4-/5 left, knee extension 5/5 right, 4+/5 left . Functional weakness left hip and knee. LTG Duration 08/27/20 Two Impairment balance Short Term Goal (STG) Complete objective balance testing for baseline measurements 06/06/19: goal progress 06/22/19: further testing reveals good balance, cane required more for fatigue 11/16/19: decline in balance noted with SLS and tandem stand today, denies any fall Halfway Goal (LTG) Patient to be safe and independent with gait on level and uneven surfaces with least restrictive device, and have no reported falls. Will be compliant with recommendations for home safety. 06/22/19: patient currently using single point cane for gait. Feel she would benefit from use of 4WW in the community to allow her to rest when needed, but she is resistant to this at this time . 06/06/19: good goal progress 11/16/19: patient now using 4WW in community as recommended previously due to decline in strength and activity tolerance. Decreased foot clearance with gait noted today which increases fall risk. Will need addition and modification to HEP. 01/24/20: Patient has been ambulating with 4WW primarily, although today able to ambulate with straight cane for first time in weeks. She attributes this to possibly taking antibiotics. 05/28/20: No change noted in balance functionally, though patient unable to tolerate formal balance testing 07/04/20: SLS right 3 sec, left unable LTG Duration 08/27/20 One Impairment activity tolerance Short Term Goal (STG) instruct in energy conservation and pacing 06/06/19: goal met STG Duration MET Director Of Math Goal (LTG) Patient to demonstrate good understanding and compliance with energy conservation and pacing of activities. 06/22/19: good goal progress 11/16/19: due to decline in strength and function, needs further education and modification 07/04/20: ongoing education. Will need work on deep breathing and thoracic mobility to maximize breathing 04/25/20: continues to require modification due to variability of patient's energy level and activity tolerance. Today her activity tolerance was increased to her max of 310' on 2 min walk test. 05/28/20: much discussion required regarding modification of activity level and patient to consider use of power wheelchair for improved mobility less energy expenture. Also reviewed importance of gentle postural correction and deep breathing techniques to improve lung capacity. LTG Duration 08/27/20 Assessment Summary Assessment Patient noting improved walking ability and tested at 347' 3 min walk today despite being the latest appointment she has ever had in PT. Improved energy level including resuming being able to type emails which she had stopped doing due to severe fatigue. Physical Therapy Plan Frequency and Duration Frequency of Treatment 1x/Week Duration of Treatment 12 wks Plan of Care Start Date 05/28/20 Plan of Care End Date 08/27/20 Therapeutic Interventions Therapeutic Interventions Aquatic Therapy,Balance Training,Coordination Training ,Gait Training,Home Exercise Program,Neuromuscular Re- education,Self-Care/Home Management,Therapeutic Activities,Therapeutic Exercises Next Visit Focus/Plan Next Note Type Treatment Note Next Visit Plan Continue PT to progress functional strengthening and gait training.
--- NOTE | 2020-07-24 11:05 | PT.OTN ---
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 Has been seeing specialists and having tests with diagnosis of possible indeterminate type of muscular dystrophy. Also reports exercise intolerance with SOB, increasing fatigue, need for much slower pace. The more I do the worse I feel . Hoping to see if she can establish an exercise program that will not exhaust her. Requesting possible aquatic therapy. Difficulty getting out of chairs, off floor. 2018 8-10 falls, this year being more careful, last fall was in July. Has not suffererd injury. Started Prednisone yesterday 15 mg. Prior experience with Prednisone caused migraine; has headache but not migraine. LE weakness symmetrical, no numbness or tingling. With falls, reports usually [address] Frequently uses cane or walker. No dizziness. BP well-managed. Uses electric tricycle. Has recumbant exercise bike, reports not using, has tendency to overdo. Also weakness in UE's; hard to wash hair, can't hold chair mender, can only get 1 plate out of cupboard at a time, doesn't carry groceries. Stool in shower, can dress self. Trip to [place] next week, has anxiety about being able to tolerate. Prior Treatments and Tests muscle biopsy negative [facility] neurologist States MS and ALS ruled out as diagnoses. Future Testing and Treatments Planned Spoke today with Claudy Sotelo, doctor inclusion body myositis specialist at [facility] in [place]; has February 16 appointment Patient reports a second muscle biopsy recommended by [facility] physician Treatment Goals Patient/Caregiver Goals Improve strength/maintain, establish exercise program. Hoping for aquatic therapy. Had difficulty getting in/out of pool and felt uncoordinated last time in pool. Knows how to swim, but body has changed and it felt very difficult. Prior Functional Status Baseline Function- ADL's Independent Baseline Function- Mobility Independent Baseline Function- Gait independent without device Baseline Function- Work/School retired Baseline Function- Recreation/Hobbies walk, bike, hike Current Functional Impairments (Reported) Functional Limitations- ADL's slow, fatiguing Functional Limitations- Mobility/Gait very limited with c/o SOB, frequent rest breaks Functional Limitations- Work/School retired Functional Limitations- Recreation/ unable except has electric Hobbies tricycle PT-OP-C Subjective Start: 01/05/19 16:21 Freq: Status: Active Protocol: Document 07/24/20 09:02 SAK (Rec: 07/24/20 09:53 SAK [id number]) OP-PT Subjective Patient Comments Patient Comments Less SOB, and better energy level. Took a short walk already this am. Legs feel better, arms fatiguing and aching; don't seem to be improving. Reports UE's quickly fatigue while typing emails at desk. Sees Dr. Meza tomorrow. Still questioning MG diagnosis. Patient Reported Progress Improving PT-OP-D Balance Start: 01/05/19 16:21 Freq: Status: Active Protocol: Document 06/06/19 08:59 SAK (Rec: 06/06/19 13:50 SAK [id number]) Balance Tests Sheth Balance Test Sheth Balance Test Score 53 Sheth Impairment Rating 1 to 19% Impaired (Score 45-55 ) PT-OP-E Functional Tests Start: 01/05/19 16:21 Freq: Status: Active Protocol: Document 07/20/19 09:01 SAK (Rec: 07/20/19 10:00 SAK [id number]) Functional Tests 6 Minute Walk Test Comments not done due to fatigue PT-OP-G Mobility & Gait Start: 01/05/19 16:21 Freq: Status: Active Protocol: Document 07/04/19 11:54 SP (Rec: 07/04/19 11:56 SP [id number]) OP Mobility Evaluation Bed Mobility Rolling I Supine to and from Sit I Transfers Sit to Stand Indep, no hands initially. Requires use of hands with fatigue PT-OP-H Neuro Start: 01/05/19 16:21 Freq: Status: Active Protocol: Document 06/06/19 08:59 [facility] (Rec: 06/06/19 13:50 [facility] [id number]) Sensation Evaluation Gross Sensation Gross Sensation WNL PT-OP-J Posture/Palpation/Skin Start: 01/05/19 16:21 Freq: Status: Active Protocol: Document 01/06/19 12:57 [facility] (Rec: 01/09/19 12:55 [facility] [id number]) Skin Assessment Other Assessments Skin Assessment Comments intact, no edema or brusing evident PT-OP-K Range of Motion Start: 01/05/19 16:21 Freq: Status: Active Protocol: Document 01/06/19 12:57 [facility] (Rec: 01/09/19 12:55 [facility] [id number]) Cervical Spine Range of Motion Cervical Spine Active Comments WNL Lumbar Spine Range of Motion Lumbar Spine Active Comments WNL Shoulder Goniometric Range of Motion Shoulder left Shoulder ROM WFL Yes right Shoulder ROM WFL Yes Elbow/Forearm Range of Motion Elbow/Forearm girma Elbow/Forearm ROM WFL Yes Wrist Goniometric Range of Motion Wrist girma Wrist ROM WFL Yes Hip Goniometric Range of Motion Hip girma Hip ROM WFL Yes Knee Goniometric Range of Motion Knee girma Knee ROM WFL Yes Ankle and Foot Goniometric Range of Motion Ankle and Foot girma Ankle/Foot ROM WFL Yes PT-OP-M Strength Start: 01/05/19 16:21 Freq: Status: Active Protocol: Document 03/26/20 11:38 [facility] (Rec: 03/26/20 12:11 [facility] [id number]) Shoulder Strength Shoulder Manual Muscle Testing Left Flexion 4- Good- Extension 4 Good Right Flexion 4+ Good+ Extension 4+ Good+ Elbow/Forearm Strength Elbow and Forearm Manual Muscle Testing Left Extension (C7) 4- Good- Pronation 4- Good- Right Flexion (C6) 4+ Good+ Extension (C7) 4+ Good+ Wrist Strength Wrist Manual Muscle Testing Right Flexion (C7) 4- Good- Extension (C6) 4- Good- Hand Road Machine Runner/Pinch Strength Hand Strength Left Comments 40,40, after a few UE ex: 24, 38lbs elbow bent rested on chair arm at side. Right Comments 24, 24, after a few UE ex; 12,20 lbs elbow bent rested on chair arm at side. PT-OP-Q Treatments Start: 01/05/19 16:21 Freq: Status: Active Protocol: Document 07/24/20 09:02 [facility] (Rec: 07/24/20 09:53 [facility] [id number]) Gym Equipment Shuttle Recovery Unilateral Squats Resistance 25 right, 12 left Shuttle Recovery Platform Stable Reps/Time 10x Bilateral Squats Resistance 37 Shuttle Recovery Platform Stable Reps/Time 10x Shuttle Balance 2 Details chains blue Comments EO, EC, head turns 1 Details red Comments balance and weight shift fwd/ bck Therapeutic Exercises Supine Exercises overhead stretch Side bilateral Reps/Minutes 2x Comments with deep breathing pec stretch Side bilateral Reps/Minutes 2x Comments with deep breathing Sitting Exercises bicep curl Resistance 1# Reps/Minutes 5x shoulder flex Reps/Minutes 5 deep breathing Sitting Exercise Name with exhale focus Side bilateral Reps/Minutes 5x shoulder blade squeeze Resistance TB 1 Reps/Minutes Hold for 5 sec x5 Gait Training Gait Activity stairs Device Used bilateral railings Level of Assistance SBA Surface 4 stairs (6) x 2 Treatment Focus gluteal activation gait Comments 3 min walk test 408'' with FWW PT-OP-T Assessment and Plan Start: 01/05/19 16:21 Freq: Status: Active Protocol: Document 07/24/20 09:02 [facility] (Rec: 07/24/20 09:53 [facility] [id number]) Physical Therapy Assessment Impairments Impairments Activity Tolerance,Functional Mobility,Strength Goals Three Impairment strength Senior Care Goal (LTG) Establish well-tolerated aquatic exercise program and HEP focused on strengthening and balance for patient with patient demonstrated independence and compliance and demonstrate good knowledge of how to modify depending on symptoms. 06/22/19: goal progress 08/16/19: decline in LE strength left side, will need modification. Patient lost written HEP during move, and stress of move didn't allow her to exercise. 01/24/20: Patient has written ex for supine, sitting, and standing depending on how she is doing and what she feels she can tolerate any given day . Has been trying to walk most days. 05/28/20: Patient reports she has been unable to perform exercises past couple weeks due to SOB, fatigue, achiness. Hasn't felt up to trying ex bike. 07/04/20: hip flex 4/5 right 4-/ 5 left, hip abduction 4+/5 right, 3-/5 left, adduction 4+ /5 right, 4-/5 left, knee extension 5/5 right, 4+/5 left . Functional weakness left hip and knee. LTG Duration 08/27/20 Two Impairment balance Short Term Goal (STG) Complete objective balance testing for baseline measurements 06/06/19: goal progress 06/22/19: further testing reveals good balance, cane required more for fatigue 11/16/19: decline in balance noted with SLS and tandem stand today, denies any fall 07/24/20: Patient denies any recent falls, fatigues quickly with balance ex, but noting improved stability on left LE Senior Care Goal (LTG) Patient to be safe and independent with gait on level and uneven surfaces with least restrictive device, and have no reported falls. Will be compliant with recommendations for home safety. 06/22/19: patient currently using single point cane for gait. Feel she would benefit from use of 4WW in the community to allow her to rest when needed, but she is resistant to this at this time . 06/06/19: good goal progress 11/16/19: patient now using 4WW in community as recommended previously due to decline in strength and activity tolerance. Decreased foot clearance with gait noted today which increases fall risk. Will need addition and modification to HEP. 01/24/20: Patient has been ambulating with 4WW primarily, although today able to ambulate with straight cane for first time in weeks. She attributes this to possibly taking antibiotics. 05/28/20: No change noted in balance functionally, though patient unable to tolerate formal balance testing 07/04/20: SLS right 3 sec, left unable LTG Duration 08/27/20 One Impairment activity tolerance Short Term Goal (STG) instruct in energy conservation and pacing 06/06/19: goal met STG Duration MET Marine Technician Goal (LTG) Patient to demonstrate good understanding and compliance with energy conservation and pacing of activities. 06/22/19: good goal progress 11/16/19: due to decline in strength and function, needs further education and modification 07/04/20: ongoing education. Will need work on deep breathing and thoracic mobility to maximize breathing 04/25/20: continues to require modification due to variability of patient's energy level and activity tolerance. Today her activity tolerance was increased to her max of 310' on 2 min walk test. 05/28/20: much discussion required regarding modification of activity level and patient to consider use of power wheelchair for improved mobility less energy expenture. Also reviewed importance of gentle postural correction and deep breathing techniques to improve lung capacity. 07/24/20: Improving activity tolerance past couple weeks with patient reporting decrease in SOB, was able to take very short walk with this am and then tolerate 45 min PT session today (with frequent seated rest breaks). Continues to demonstrate improved understanding and follow- through with energy conservation and pacing of activities. LTG Duration 08/27/20 Assessment Summary Assessment 3 min walk improved to 405' today. Minimal SOB noted. Denies recent falls. Continues to ambulate with 4WW for support and ability to rest when needed. Most concerned today about continued feeling of weakness and achiness in UE's with minimal activity, expressed guarded hope about recent gains in activity tolerance. Physical Therapy Plan Frequency and Duration Frequency of Treatment 1x/Week Duration of Treatment 12 wks Plan of Care Start Date 05/28/20 Plan of Care End Date 08/27/20 Therapeutic Interventions Therapeutic Interventions Aquatic Therapy,Balance Training,Coordination Training ,Gait Training,Home Exercise Program,Neuromuscular Re- education,Self-Care/Home Management,Therapeutic Activities,Therapeutic Exercises Next Visit Focus/Plan Next Note Type Treatment Note Next Visit Plan Continue PT to progress functional strengthening and gait training pending any other recommendations from Dr. Meza.
--- NOTE | 2020-08-02 13:18 | PT.OTN ---
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) Muscle weakness (generalized) (08/02/20) Physical Therapy Treatment Note PT-OP-A Visit Information Start: 01/05/19 16:21 Freq: Status: Active Protocol: Document 08/02/20 09:02 SAK (Rec: 08/02/20 09:48 SAK [id number]) Out-Patient Physical Therapy Visit Information Visit Information Visit Type Treatment Note Visit Start Time 09:02 Visit Stop Time 09:47 Total Visit Minutes 45 Visit Number 41 Number of MEDICAL PARASITOLOGIST Visits 0 PT-OP-B Current Condition Start: 01/05/19 16:21 Freq: Status: Active Protocol: Document 01/06/19 12:57 SAK (Rec: 01/06/19 13:25 SAK [id number]) Current Condition History of Current Condition Onset Date 4 yrs Current Complaints LE weakness and achiness, SOB History of Current Condition Gradual progressive weakness, started using cane May 2017. Has been seeing specialists and having tests with diagnosis of possible indeterminate type of muscular dystrophy. Also reports exercise intolerance with SOB, increasing fatigue, need for much slower pace. The more I do the worse I feel . Hoping to see if she can establish an exercise program that will not exhaust her. Requesting possible aquatic therapy. Difficulty getting out of chairs, off floor. 2018 8-10 falls, this year being more careful, last fall was in July. Has not suffererd injury. Started Prednisone yesterday 15 mg. Prior experience with Prednisone caused migraine; has headache but not migraine. LE weakness symmetrical, no numbness or tingling. With falls, reports usually [address] Frequently uses cane or walker. No dizziness. BP well-managed. Uses electric tricycle. Has recumbant exercise bike, reports not using, has tendency to overdo. 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 Stool in shower, can dress self. Trip to [place] next week, has anxiety about being able to tolerate. Prior Treatments and Tests muscle biopsy negative [facility] neurologist States MS and ALS ruled out as diagnoses. Future Testing and Treatments Planned Spoke today with Claudy Sotelo, doctor inclusion body myositis specialist at [facility] in [place]; has February 16 appointment Patient reports a second muscle biopsy recommended by [facility] physician Treatment Goals Patient/Caregiver Goals Improve strength/maintain, establish exercise program. Hoping for aquatic therapy. Had difficulty getting in/out of pool and felt uncoordinated last time in pool. Knows how to swim, but body has changed and it felt very difficult. Prior Functional Status Baseline Function- ADL's Independent Baseline Function- Mobility Independent Baseline Function- Gait independent without device Baseline Function- Work/School retired Baseline Function- Recreation/Hobbies walk, bike, hike Current Functional Impairments (Reported) Functional Limitations- ADL's slow, fatiguing Functional Limitations- Mobility/Gait very limited with c/o SOB, frequent rest breaks Functional Limitations- Work/School retired Functional Limitations- Recreation/ unable except has electric Hobbies tricycle PT-OP-C Subjective Start: 01/05/19 16:21 Freq: Status: Active Protocol: Document 08/02/20 09:02 SAK (Rec: 08/02/20 09:48 SAK [id number]) OP-PT Subjective Patient Comments Patient Comments Day after last seen started having horrible abdominal pain , admitted with acute pancreatitis, was in hospital x 2 days. Hasn't done much exercising or walking but symptoms resolved with treatment except having some rolling waves of nausea. Sees neurologist at [facility] today, excited and nervous. PT-OP-D Balance Start: 01/05/19 16:21 Freq: Status: Active Protocol: Document 06/06/19 08:59 SAK (Rec: 06/06/19 13:50 SAK [id number]) Balance Tests Sheth Balance Test Sheth Balance Test Score 53 Sheth Impairment Rating 1 to 19% Impaired (Score 45-55 ) PT-OP-E Functional Tests Start: 01/05/19 16:21 Freq: Status: Active Protocol: Document 07/20/19 09:01 SAK (Rec: 07/20/19 10:00 SAK [id number]) Functional Tests 6 Minute Walk Test Comments not done due to fatigue PT-OP-G Mobility & Gait Start: 01/05/19 16:21 Freq: Status: Active Protocol: Document 07/04/19 11:54 SP (Rec: 07/04/19 11:56 SP [id number]) OP Mobility Evaluation Bed Mobility Rolling I Supine to and from Sit I Transfers Sit to Stand Indep, no hands initially. Requires use of hands with fatigue PT-OP-H Neuro Start: 01/05/19 16:21 Freq: Status: Active Protocol: Document 06/06/19 08:59 [facility] (Rec: 06/06/19 13:50 [facility] [id number]) Sensation Evaluation Gross Sensation Gross Sensation WNL PT-OP-J Posture/Palpation/Skin Start: 01/05/19 16:21 Freq: Status: Active Protocol: Document 01/06/19 12:57 [facility] (Rec: 01/09/19 12:55 [facility] [id number]) Skin Assessment Other Assessments Skin Assessment Comments intact, no edema or brusing evident PT-OP-K Range of Motion Start: 01/05/19 16:21 Freq: Status: Active Protocol: Document 01/06/19 12:57 [facility] (Rec: 01/09/19 12:55 [facility] [id number]) Cervical Spine Range of Motion Cervical Spine Active Comments WNL Lumbar Spine Range of Motion Lumbar Spine Active Comments WNL Shoulder Goniometric Range of Motion Shoulder left Shoulder ROM WFL Yes right Shoulder ROM WFL Yes Elbow/Forearm Range of Motion Elbow/Forearm girma Elbow/Forearm ROM WFL Yes Wrist Goniometric Range of Motion Wrist girma Wrist ROM WFL Yes Hip Goniometric Range of Motion Hip girma Hip ROM WFL Yes Knee Goniometric Range of Motion Knee girma Knee ROM WFL Yes Ankle and Foot Goniometric Range of Motion Ankle and Foot girma Ankle/Foot ROM WFL Yes PT-OP-M Strength Start: 01/05/19 16:21 Freq: Status: Active Protocol: Document 03/26/20 11:38 [facility] (Rec: 03/26/20 12:11 [facility] [id number]) Shoulder Strength Shoulder Manual Muscle Testing Left Flexion 4- Good- Extension 4 Good Right Flexion 4+ Good+ Extension 4+ Good+ Elbow/Forearm Strength Elbow and Forearm Manual Muscle Testing Left Extension (C7) 4- Good- Pronation 4- Good- Right Flexion (C6) 4+ Good+ Extension (C7) 4+ Good+ Wrist Strength Wrist Manual Muscle Testing Right Flexion (C7) 4- Good- Extension (C6) 4- Good- Hand Regional Project Manager/Pinch Strength Hand Strength Left Comments 40,40, after a few UE ex: 24, 38lbs elbow bent rested on chair arm at side. Right Comments 24, 24, after a few UE ex; 12,20 lbs elbow bent rested on chair arm at side. PT-OP-Q Treatments Start: 01/05/19 16:21 Freq: Status: Active Protocol: Document 08/02/20 09:02 [facility] (Rec: 08/02/20 09:48 [facility] [id number]) Gym Equipment Shuttle Recovery Unilateral Squats Resistance 25 right, 12 left Shuttle Recovery Platform Stable Reps/Time 10x Bilateral Squats Resistance 37 Shuttle Recovery Platform Stable Reps/Time 10x Therapeutic Exercises Sitting Exercises pulleys Sitting Exercise Name flex, abduction Reps/Minutes 5x ea deep breathing Sitting Exercise Name with exhale focus Side bilateral Reps/Minutes 5x horizontal abduction Reps/Minutes 3x Comments with deep breathing Gait Training Gait Activity gait Comments 3 min walk test 421'' with FWW Neuro Re-Education Treatment Balance Activities BOSU Reps/Duration 5x Comments step touch, bal with one foot on top one on ground PT-OP-T Assessment and Plan Start: 01/05/19 16:21 Freq: Status: Active Protocol: Document 08/02/20 09:02 [facility] (Rec: 08/02/20 09:48 [facility] [id number]) Physical Therapy Assessment Goals Three Impairment strength Enrobing Machine Operator Goal (LTG) Establish well-tolerated aquatic exercise program and HEP focused on strengthening and balance for patient with patient demonstrated independence and compliance and demonstrate good knowledge of how to modify depending on symptoms. 06/22/19: goal progress 08/16/19: decline in LE strength left side, will need modification. Patient lost written HEP during move, and stress of move didn't allow her to exercise. 01/24/20: Patient has written ex for supine, sitting, and standing depending on how she is doing and what she feels she can tolerate any given day . Has been trying to walk most days. 05/28/20: Patient reports she has been unable to perform exercises past couple weeks due to SOB, fatigue, achiness. Hasn't felt up to trying ex bike. 07/04/20: hip flex 4/5 right 4-/ 5 left, hip abduction 4+/5 right, 3-/5 left, adduction 4+ /5 right, 4-/5 left, knee extension 5/5 right, 4+/5 left . Functional weakness left hip and knee. LTG Duration 08/27/20 Two Impairment balance Short Term Goal (STG) Complete objective balance testing for baseline measurements 06/06/19: goal progress 06/22/19: further testing reveals good balance, cane required more for fatigue 11/16/19: decline in balance noted with SLS and tandem stand today, denies any fall 07/24/20: Patient denies any recent falls, fatigues quickly with balance ex, but noting improved stability on left LE Detention Goal (LTG) Patient to be safe and independent with gait on level and uneven surfaces with least restrictive device, and have no reported falls. Will be compliant with recommendations for home safety. 06/22/19: patient currently using single point cane for gait. Feel she would benefit from use of 4WW in the community to allow her to rest when needed, but she is resistant to this at this time . 06/06/19: good goal progress 11/16/19: patient now using 4WW in community as recommended previously due to decline in strength and activity tolerance. Decreased foot clearance with gait noted today which increases fall risk. Will need addition and modification to HEP. 01/24/20: Patient has been ambulating with 4WW primarily, although today able to ambulate with straight cane for first time in weeks. She attributes this to possibly taking antibiotics. 05/28/20: No change noted in balance functionally, though patient unable to tolerate formal balance testing 07/04/20: SLS right 3 sec, left unable LTG Duration 08/27/20 One Impairment activity tolerance Short Term Goal (STG) instruct in energy conservation and pacing 06/06/19: goal met STG Duration MET Enrobing Machine Operator Goal (LTG) Patient to demonstrate good understanding and compliance with energy conservation and pacing of activities. 06/22/19: good goal progress 11/16/19: due to decline in strength and function, needs further education and modification 07/04/20: ongoing education. Will need work on deep breathing and thoracic mobility to maximize breathing 04/25/20: continues to require modification due to variability of patient's energy level and activity tolerance. Today her activity tolerance was increased to her max of 310' on 2 min walk test. 05/28/20: much discussion required regarding modification of activity level and patient to consider use of power wheelchair for improved mobility less energy expenture. Also reviewed importance of gentle postural correction and deep breathing techniques to improve lung capacity. 07/24/20: Improving activity tolerance past couple weeks with patient reporting decrease in SOB, was able to take very short walk with this am and then tolerate 45 min PT session today (with frequent seated rest breaks). Continues to demonstrate improved understanding and follow- through with energy conservation and pacing of activities. LTG Duration 08/27/20 Assessment Summary Assessment Improved 3 min walk again today to 421', arms fatigued with pulleys but reorted good stretch and ability to lift overhead with assistance. Sees neurologist today. Physical Therapy Plan Frequency and Duration Frequency of Treatment 1x/Week Duration of Treatment 12 wks Plan of Care Start Date 05/28/20 Plan of Care End Date 08/27/20 Therapeutic Interventions Therapeutic Interventions Aquatic Therapy,Balance Training,Coordination Training ,Gait Training,Home Exercise Program,Neuromuscular Re- education,Self-Care/Home Management,Therapeutic Activities,Therapeutic Exercises Next Visit Focus/Plan Next Note Type Treatment Note Next Visit Plan Continue PT to progress functional strengthening and gait training pending any other recommendations from Dr. Hiral Kapadia
--- NOTE | 2020-08-06 10:13 | PT-OP ANOTE ---
Patient cancelled due to feeling ill, possibly going to ER
--- NOTE | 2020-08-13 16:03 | PT.OTN ---
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) Muscle weakness (generalized) (08/13/20) Physical Therapy Treatment Note PT-OP-A Visit Information Start: 01/05/19 16:21 Freq: Status: Active Protocol: Document 08/13/20 13:00 SAK (Rec: 08/13/20 13:46 SAK [id number]) Out-Patient Physical Therapy Visit Information Visit Information Visit Type Treatment Note Visit Start Time 13:00 Visit Stop Time 13:45 Total Visit Minutes 45 Visit Number 42 Number of COUNTER STACKER Visits 0 PT-OP-B Current Condition Start: 01/05/19 16:21 Freq: Status: Active Protocol: Document 01/06/19 12:57 SAK (Rec: 01/06/19 13:25 SAK [id number]) Current Condition History of Current Condition Onset Date 4 yrs Current Complaints LE weakness and achiness, SOB History of Current Condition Gradual progressive weakness, started using cane May 2017. Has been seeing specialists and having tests with diagnosis of possible indeterminate type of muscular dystrophy. Also reports exercise intolerance with SOB, increasing fatigue, need for much slower pace. The more I do the worse I feel . Hoping to see if she can establish an exercise program that will not exhaust her. Requesting possible aquatic therapy. Difficulty getting out of chairs, off floor. 2018 8-10 falls, this year being more careful, last fall was in July. Has not suffererd injury. Started Prednisone yesterday 15 mg. Prior experience with Prednisone caused migraine; has headache but not migraine. LE weakness symmetrical, no numbness or tingling. With falls, reports usually [address] Frequently uses cane or walker. No dizziness. BP well-managed. Uses electric tricycle. Has recumbant exercise bike, reports not using, has tendency to overdo. 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 Stool in shower, can dress self. Trip to [place] next week, has anxiety about being able to tolerate. Prior Treatments and Tests muscle biopsy negative [facility] neurologist States MS and ALS ruled out as diagnoses. Future Testing and Treatments Planned Spoke today with Claudy Sotelo, doctor inclusion body myositis specialist at [facility] in [place]; has February 16 appointment Patient reports a second muscle biopsy recommended by [facility] physician Treatment Goals Patient/Caregiver Goals Improve strength/maintain, establish exercise program. Hoping for aquatic therapy. Had difficulty getting in/out of pool and felt uncoordinated last time in pool. Knows how to swim, but body has changed and it felt very difficult. Prior Functional Status Baseline Function- ADL's Independent Baseline Function- Mobility Independent Baseline Function- Gait independent without device Baseline Function- Work/School retired Baseline Function- Recreation/Hobbies walk, bike, hike Current Functional Impairments (Reported) Functional Limitations- ADL's slow, fatiguing Functional Limitations- Mobility/Gait very limited with c/o SOB, frequent rest breaks Functional Limitations- Work/School retired Functional Limitations- Recreation/ unable except has electric Hobbies tricycle PT-OP-C Subjective Start: 01/05/19 16:21 Freq: Status: Active Protocol: Document 08/13/20 13:00 SAK (Rec: 08/13/20 13:46 SAK [id number]) OP-PT Subjective Patient Comments Patient Comments Had to cancel last session due to exacerbation of diverticulitis. Bad day yesterday, legs not working well; had to sit to do ADL's. Today so far has been a good day, has already taken a couple small walks. States can't identify anything that results in a good day or bad day. Saw new neurologist, needs simple fiber EMG at to confirm whether diagnosis is MG. PT-OP-D Balance Start: 01/05/19 16:21 Freq: Status: Active Protocol: Document 06/06/19 08:59 SAK (Rec: 06/06/19 13:50 SAK [id number]) Balance Tests Sheth Balance Test Sheth Balance Test Score 53 Sheth Impairment Rating 1 to 19% Impaired (Score 45-55 ) PT-OP-E Functional Tests Start: 01/05/19 16:21 Freq: Status: Active Protocol: Document 07/20/19 09:01 SAK (Rec: 07/20/19 10:00 SAK [id number]) Functional Tests 6 Minute Walk Test Comments not done due to fatigue PT-OP-G Mobility & Gait Start: 01/05/19 16:21 Freq: Status: Active Protocol: Document 07/04/19 11:54 SP (Rec: 07/04/19 11:56 SP [id number]) OP Mobility Evaluation Bed Mobility Rolling I Supine to and from Sit I Transfers Sit to Stand Indep, no hands initially. Requires use of hands with fatigue PT-OP-H Neuro Start: 01/05/19 16:21 Freq: Status: Active Protocol: Document 06/06/19 08:59 SAK (Rec: 06/06/19 13:50 SAK [id number]) Sensation Evaluation Gross Sensation Gross Sensation WNL PT-OP-J Posture/Palpation/Skin Start: 01/05/19 16:21 Freq: Status: Active Protocol: Document 01/06/19 12:57 SAK (Rec: 01/09/19 12:55 SAK [id number]) Skin Assessment Other Assessments Skin Assessment Comments intact, no edema or brusing evident PT-OP-K Range of Motion Start: 01/05/19 16:21 Freq: Status: Active Protocol: Document 01/06/19 12:57 SAK (Rec: 01/09/19 12:55 SAK [id number]) Cervical Spine Range of Motion Cervical Spine Active Comments WNL Lumbar Spine Range of Motion Lumbar Spine Active Comments WNL Shoulder Goniometric Range of Motion Shoulder left Shoulder ROM WFL Yes right Shoulder ROM WFL Yes Elbow/Forearm Range of Motion Elbow/Forearm girma Elbow/Forearm ROM WFL Yes Wrist Goniometric Range of Motion Wrist girma Wrist ROM WFL Yes Hip Goniometric Range of Motion Hip girma Hip ROM WFL Yes Knee Goniometric Range of Motion Knee girma Knee ROM WFL Yes Ankle and Foot Goniometric Range of Motion Ankle and Foot girma Ankle/Foot ROM WFL Yes PT-OP-M Strength Start: 01/05/19 16:21 Freq: Status: Active Protocol: Document 03/26/20 11:38 SAK (Rec: 03/26/20 12:11 SAK [id number]) Shoulder Strength Shoulder Manual Muscle Testing Left Flexion 4- Good- Extension 4 Good Right Flexion 4+ Good+ Extension 4+ Good+ Elbow/Forearm Strength Elbow and Forearm Manual Muscle Testing Left Extension (C7) 4- Good- Pronation 4- Good- Right Flexion (C6) 4+ Good+ Extension (C7) 4+ Good+ Wrist Strength Wrist Manual Muscle Testing Right Flexion (C7) 4- Good- Extension (C6) 4- Good- Hand Shipyard Helper/Pinch Strength Hand Strength Left Comments 40,40, after a few UE ex: 24, 38lbs elbow bent rested on chair arm at side. Right Comments 24, 24, after a few UE ex; 12,20 lbs elbow bent rested on chair arm at side. PT-OP-Q Treatments Start: 01/05/19 16:21 Freq: Status: Active Protocol: Document 08/13/20 13:00 [facility] (Rec: 08/13/20 13:46 [facility] [id number]) Therapeutic Exercises Sitting Exercises pulleys Sitting Exercise Name flex, abduction Reps/Minutes 5x ea deep breathing Sitting Exercise Name with exhale focus Side bilateral Reps/Minutes 5x horizontal abduction Reps/Minutes 3x Comments with deep breathing Standing Exercises tandem stand Reps/Minutes 2x ea side SLS Reps/Minutes 3x ea Comments right 10, left 3sec Gait Training Gait Activity gait Comments 3 min walk test 469'' with FWW Neuro Re-Education Treatment Balance Activities BOSU Reps/Duration 5x Comments lungmargret lara standing on blue side sidestepping Details parallel bars Reps/Duration 2 laps Comments no UE support tandem stand Surface level Equipment parallel bars Reps/Duration needs min to mod support walking balance Details fwd Surface at bar Equipment no AD, in parallel bars Reps/Duration 2 laps each direction Comments no UE support Self-Care/Home Management Treatment Education Other Education energy conservation PT-OP-T Assessment and Plan Start: 01/05/19 16:21 Freq: Status: Active Protocol: Document 08/13/20 13:00 [facility] (Rec: 08/13/20 13:46 [facility] [id number]) Physical Therapy Assessment Goals Three Impairment strength Woodworker Helper Goal (LTG) Establish well-tolerated aquatic exercise program and HEP focused on strengthening and balance for patient with patient demonstrated independence and compliance and demonstrate good knowledge of how to modify depending on symptoms. 06/22/19: goal progress 08/16/19: decline in LE strength left side, will need modification. Patient lost written HEP during move, and stress of move didn't allow her to exercise. 01/24/20: Patient has written ex for supine, sitting, and standing depending on how she is doing and what she feels she can tolerate any given day . Has been trying to walk most days. 05/28/20: Patient reports she has been unable to perform exercises past couple weeks due to SOB, fatigue, achiness. Hasn't felt up to trying ex bike. 07/04/20: hip flex 4/5 right 4-/ 5 left, hip abduction 4+/5 right, 3-/5 left, adduction 4+ /5 right, 4-/5 left, knee extension 5/5 right, 4+/5 left . Functional weakness left hip and knee. LTG Duration 08/27/20 Two Impairment balance Short Term Goal (STG) Complete objective balance testing for baseline measurements 06/06/19: goal progress 06/22/19: further testing reveals good balance, cane required more for fatigue 11/16/19: decline in balance noted with SLS and tandem stand today, denies any fall 07/24/20: Patient denies any recent falls, fatigues quickly with balance ex, but noting improved stability on left LE Prison Goal (LTG) Patient to be safe and independent with gait on level and uneven surfaces with least restrictive device, and have no reported falls. Will be compliant with recommendations for home safety. 06/22/19: patient currently using single point cane for gait. Feel she would benefit from use of 4WW in the community to allow her to rest when needed, but she is resistant to this at this time . 06/06/19: good goal progress 11/16/19: patient now using 4WW in community as recommended previously due to decline in strength and activity tolerance. Decreased foot clearance with gait noted today which increases fall risk. Will need addition and modification to HEP. 01/24/20: Patient has been ambulating with 4WW primarily, although today able to ambulate with straight cane for first time in weeks. She attributes this to possibly taking antibiotics. 05/28/20: No change noted in balance functionally, though patient unable to tolerate formal balance testing 07/04/20: SLS right 3 sec, left unable LTG Duration 08/27/20 One Impairment activity tolerance Short Term Goal (STG) instruct in energy conservation and pacing 06/06/19: goal met STG Duration MET Woodworker Helper Goal (LTG) Patient to demonstrate good understanding and compliance with energy conservation and pacing of activities. 06/22/19: good goal progress 11/16/19: due to decline in strength and function, needs further education and modification 07/04/20: ongoing education. Will need work on deep breathing and thoracic mobility to maximize breathing 04/25/20: continues to require modification due to variability of patient's energy level and activity tolerance. Today her activity tolerance was increased to her max of 310' on 2 min walk test. 05/28/20: much discussion required regarding modification of activity level and patient to consider use of power wheelchair for improved mobility less energy expenture. Also reviewed importance of gentle postural correction and deep breathing techniques to improve lung capacity. 07/24/20: Improving activity tolerance past couple weeks with patient reporting decrease in SOB, was able to take very short walk with this am and then tolerate 45 min PT session today (with frequent seated rest breaks). Continues to demonstrate improved understanding and follow- through with energy conservation and pacing of activities. LTG Duration 08/27/20 Assessment Summary Assessment Improved 3 min walk test to 469' today even after taking a couple short walks with her earlier today, though horrible day yesterday. Patient pleased with new neurologist and will be having EMG at end of month to confirm diagnosis. Physical Therapy Plan Frequency and Duration Frequency of Treatment 1x/Week Duration of Treatment 12 wks Plan of Care Start Date 05/28/20 Plan of Care End Date 08/27/20 Therapeutic Interventions Therapeutic Interventions Aquatic Therapy,Balance Training,Coordination Training ,Gait Training,Home Exercise Program,Neuromuscular Re- education,Self-Care/Home Management,Therapeutic Activities,Therapeutic Exercises Next Visit Focus/Plan Next Note Type Treatment Note Next Visit Plan Assess response to today's PT session due to increased tolerance in activity today; frequent brief rest breaks required. Progress as indicated with emphasis on functional balance as patient reported unable to stand to don LE clothing.
--- NOTE | 2020-08-20 14:09 | PT.OTN ---
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) Muscle weakness (generalized) (08/20/20) Physical Therapy Treatment Note PT-OP-A Visit Information Start: 01/05/19 16:21 Freq: Status: Active Protocol: Document 08/20/20 12:58 SAK (Rec: 08/20/20 13:53 SAK [id number]) Out-Patient Physical Therapy Visit Information Visit Information Visit Type Treatment Note Visit Start Time 13:00 Visit Stop Time 13:45 Total Visit Minutes 45 Visit Number 43 Number of PHYSICIAN INDUSTRIAL Visits 0 PT-OP-B Current Condition Start: 01/05/19 16:21 Freq: Status: Active Protocol: Document 01/06/19 12:57 SAK (Rec: 01/06/19 13:25 SAK [id number]) Current Condition History of Current Condition Onset Date 4 yrs Current Complaints LE weakness and achiness, SOB History of Current Condition Gradual progressive weakness, started using cane May 2017. Has been seeing specialists and having tests with diagnosis of possible indeterminate type of muscular dystrophy. Also reports exercise intolerance with SOB, increasing fatigue, need for much slower pace. The more I do the worse I feel . Hoping to see if she can establish an exercise program that will not exhaust her. Requesting possible aquatic therapy. Difficulty getting out of chairs, off floor. 2018 8-10 falls, this year being more careful, last fall was in July. Has not suffererd injury. Started Prednisone yesterday 15 mg. Prior experience with Prednisone caused migraine; has headache but not migraine. LE weakness symmetrical, no numbness or tingling. With falls, reports usually [address] Frequently uses cane or walker. No dizziness. BP well-managed. Uses electric tricycle. Has recumbant exercise bike, reports not using, has tendency to overdo. 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 Stool in shower, can dress self. Trip to [place] next week, has anxiety about being able to tolerate. Prior Treatments and Tests muscle biopsy negative [facility] neurologist States MS and ALS ruled out as diagnoses. Future Testing and Treatments Planned Spoke today with Claudy Sotelo, doctor inclusion body myositis specialist at [facility] in [place]; has February 16 appointment Patient reports a second muscle biopsy recommended by [facility] physician Treatment Goals Patient/Caregiver Goals Improve strength/maintain, establish exercise program. Hoping for aquatic therapy. Had difficulty getting in/out of pool and felt uncoordinated last time in pool. Knows how to swim, but body has changed and it felt very difficult. Prior Functional Status Baseline Function- ADL's Independent Baseline Function- Mobility Independent Baseline Function- Gait independent without device Baseline Function- Work/School retired Baseline Function- Recreation/Hobbies walk, bike, hike Current Functional Impairments (Reported) Functional Limitations- ADL's slow, fatiguing Functional Limitations- Mobility/Gait very limited with c/o SOB, frequent rest breaks Functional Limitations- Work/School retired Functional Limitations- Recreation/ unable except has electric Hobbies tricycle PT-OP-C Subjective Start: 01/05/19 16:21 Freq: Status: Active Protocol: Document 08/20/20 12:58 [facility] (Rec: 08/20/20 13:53 [facility] [id number]) OP-PT Subjective Patient Comments Patient Comments Decided to try not taking Mestinon for 24-36 hours to see if it is really helping. Reports her legs don't feel as good and she feels more short of breath. Waiting to hear back about Went away for weekend, had to use cane in the [place], more fatiguing. Maybe did too much in 1 day over weekend. Has been trying to stand on one leg getting paints on if she leans against wall. PT-OP-D Balance Start: 01/05/19 16:21 Freq: Status: Active Protocol: Document 06/06/19 08:59 [facility] (Rec: 06/06/19 13:50 [facility] [id number]) Balance Tests Sheth Balance Test Sheth Balance Test Score 53 Sheth Impairment Rating 1 to 19% Impaired (Score 45-55 ) PT-OP-E Functional Tests Start: 01/05/19 16:21 Freq: Status: Active Protocol: Document 07/20/19 09:01 SAK (Rec: 07/20/19 10:00 [facility] [id number]) Functional Tests 6 Minute Walk Test Comments not done due to fatigue PT-OP-G Mobility & Gait Start: 01/05/19 16:21 Freq: Status: Active Protocol: Document 07/04/19 11:54 SP (Rec: 07/04/19 11:56 SP [id number]) OP Mobility Evaluation Bed Mobility Rolling I Supine to and from Sit I Transfers Sit to Stand Indep, no hands initially. Requires use of hands with fatigue PT-OP-H Neuro Start: 01/05/19 16:21 Freq: Status: Active Protocol: Document 06/06/19 08:59 SAK (Rec: 06/06/19 13:50 SAK [id number]) Sensation Evaluation Gross Sensation Gross Sensation WNL PT-OP-J Posture/Palpation/Skin Start: 01/05/19 16:21 Freq: Status: Active Protocol: Document 01/06/19 12:57 SAK (Rec: 01/09/19 12:55 SAK [id number]) Skin Assessment Other Assessments Skin Assessment Comments intact, no edema or brusing evident PT-OP-K Range of Motion Start: 01/05/19 16:21 Freq: Status: Active Protocol: Document 01/06/19 12:57 SAK (Rec: 01/09/19 12:55 SAK [id number]) Cervical Spine Range of Motion Cervical Spine Active Comments WNL Lumbar Spine Range of Motion Lumbar Spine Active Comments WNL Shoulder Goniometric Range of Motion Shoulder left Shoulder ROM WFL Yes right Shoulder ROM WFL Yes Elbow/Forearm Range of Motion Elbow/Forearm girma Elbow/Forearm ROM WFL Yes Wrist Goniometric Range of Motion Wrist gimra Wrist ROM WFL Yes Hip Goniometric Range of Motion Hip girma Hip ROM WFL Yes Knee Goniometric Range of Motion Knee girma Knee ROM WFL Yes Ankle and Foot Goniometric Range of Motion Ankle and Foot girma Ankle/Foot ROM WFL Yes PT-OP-M Strength Start: 01/05/19 16:21 Freq: Status: Active Protocol: Document 03/26/20 11:38 SAK (Rec: 03/26/20 12:11 SAK [id number]) Shoulder Strength Shoulder Manual Muscle Testing Left Flexion 4- Good- Extension 4 Good Right Flexion 4+ Good+ Extension 4+ Good+ Elbow/Forearm Strength Elbow and Forearm Manual Muscle Testing Left Extension (C7) 4- Good- Pronation 4- Good- Right Flexion (C6) 4+ Good+ Extension (C7) 4+ Good+ Wrist Strength Wrist Manual Muscle Testing Right Flexion (C7) 4- Good- Extension (C6) 4- Good- Hand Closing Agent/Pinch Strength Hand Strength Left Comments 40,40, after a few UE ex: 24, 38lbs elbow bent rested on chair arm at side. Right Comments 24, 24, after a few UE ex; 12,20 lbs elbow bent rested on chair arm at side. PT-OP-Q Treatments Start: 01/05/19 16:21 Freq: Status: Active Protocol: Document 08/20/20 12:58 [facility] (Rec: 08/20/20 13:53 [facility] [id number]) Gym Equipment Shuttle Balance 2 Details chains red Comments bal and wt shift fwd/bck 1 Details chains blue Comments bal WBOS side to side bal and head turns balloon volleyball Therapeutic Exercises Sitting Exercises pulleys Sitting Exercise Name flex, abduction Reps/Minutes 5x ea deep breathing Sitting Exercise Name with exhale focus Side bilateral Reps/Minutes 5x Gait Training Gait Activity gait Comments 3 min walk test 415'' with FWW Neuro Re-Education Treatment Balance Activities sidestepping Details parallel bars Reps/Duration 2 laps Comments no UE support walking balance Details fwd Surface firm Equipment no AD, in parallel bars Reps/Duration 3 laps each direction Comments no UE support PT-OP-T Assessment and Plan Start: 01/05/19 16:21 Freq: Status: Active Protocol: Document 08/20/20 12:58 [facility] (Rec: 08/20/20 13:53 [facility] [id number]) Physical Therapy Assessment Goals Three Impairment strength Jail Goal (LTG) Establish well-tolerated aquatic exercise program and HEP focused on strengthening and balance for patient with patient demonstrated independence and compliance and demonstrate good knowledge of how to modify depending on symptoms. 06/22/19: goal progress 08/16/19: decline in LE strength left side, will need modification. Patient lost written HEP during move, and stress of move didn't allow her to exercise. 01/24/20: Patient has written ex for supine, sitting, and standing depending on how she is doing and what she feels she can tolerate any given day . Has been trying to walk most days. 05/28/20: Patient reports she has been unable to perform exercises past couple weeks due to SOB, fatigue, achiness. Hasn't felt up to trying ex bike. 07/04/20: hip flex 4/5 right 4-/ 5 left, hip abduction 4+/5 right, 3-/5 left, adduction 4+ /5 right, 4-/5 left, knee extension 5/5 right, 4+/5 left . Functional weakness left hip and knee. LTG Duration 08/27/20 Two Impairment balance Short Term Goal (STG) Complete objective balance testing for baseline measurements 06/06/19: goal progress 06/22/19: further testing reveals good balance, cane required more for fatigue 11/16/19: decline in balance noted with SLS and tandem stand today, denies any fall 07/24/20: Patient denies any recent falls, fatigues quickly with balance ex, but noting improved stability on left LE Jail Goal (LTG) Patient to be safe and independent with gait on level and uneven surfaces with least restrictive device, and have no reported falls. Will be compliant with recommendations for home safety. 06/22/19: patient currently using single point cane for gait. Feel she would benefit from use of 4WW in the community to allow her to rest when needed, but she is resistant to this at this time . 06/06/19: good goal progress 11/16/19: patient now using 4WW in community as recommended previously due to decline in strength and activity tolerance. Decreased foot clearance with gait noted today which increases fall risk. Will need addition and modification to HEP. 01/24/20: Patient has been ambulating with 4WW primarily, although today able to ambulate with straight cane for first time in weeks. She attributes this to possibly taking antibiotics. 05/28/20: No change noted in balance functionally, though patient unable to tolerate formal balance testing 07/04/20: SLS right 3 sec, left unable LTG Duration 08/27/20 One Impairment activity tolerance Short Term Goal (STG) instruct in energy conservation and pacing 06/06/19: goal met STG Duration MET [employer]raft[employer] Teacher Goal (LTG) Patient to demonstrate good understanding and compliance with energy conservation and pacing of activities. 06/22/19: good goal progress 11/16/19: due to decline in strength and function, needs further education and modification 07/04/20: ongoing education. Will need work on deep breathing and thoracic mobility to maximize breathing 04/25/20: continues to require modification due to variability of patient's energy level and activity tolerance. Today her activity tolerance was increased to her max of 310' on 2 min walk test. 05/28/20: much discussion required regarding modification of activity level and patient to consider use of power wheelchair for improved mobility less energy expenture. Also reviewed importance of gentle postural correction and deep breathing techniques to improve lung capacity. 07/24/20: Improving activity tolerance past couple weeks with patient reporting decrease in SOB, was able to take very short walk with this am and then tolerate 45 min PT session today (with frequent seated rest breaks). Continues to demonstrate improved understanding and follow- through with energy conservation and pacing of activities. LTG Duration 08/27/20 Assessment Summary Assessment Patient not feeling as well without taking Mestinon, states she is going to resume today. Given that she did fairly well in PT today, walked 415' in 3 min with FWW, also walked 3 laps in parallel bars without device and increased balance activities on shuttle balance today Physical Therapy Plan Frequency and Duration Frequency of Treatment 1x/Week Duration of Treatment 12 wks Plan of Care Start Date 05/28/20 Plan of Care End Date 08/27/20 Therapeutic Interventions Therapeutic Interventions Aquatic Therapy,Balance Training,Coordination Training ,Gait Training,Home Exercise Program,Neuromuscular Re- education,Self-Care/Home Management,Therapeutic Activities,Therapeutic Exercises Next Visit Focus/Plan Next Note Type Treatment Note Next Visit Plan Continue progress of ther ex per POC
--- NOTE | 2020-08-29 09:18 | PT.OTRE ---
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) Muscle weakness (generalized) (08/29/20) Past Medical History (Last Reviewed 08/28/20 @ 16:44 by JENAE Mark) Abdominal pain Activity intolerance Acute pancreatitis Anemia Anosmia Atypical chest pain Cervical dystonia (1986) Chicken pox (1956) Cholecystectomy planned Chronic fatigue (08/07/15) Colon polyps Cough CTS (carpal tunnel syndrome) (1986) Denervation of muscle Depression (1974) Diastasis of rectus abdominis (08/07/15) Diverticulitis Dyspnea Dyspnea Dyspnea on exertion Episodic lightheadedness Fatigue Gastritis Generalized abdominal pain (08/07/15) Headache Hyperlipidemia Hypertension Itch of skin Measles (1957) Metallic taste (10/11/15) Mumps (1958) Neoplasm of uncertain behavior of skin (10/11/15) NSAID induced gastritis Osteopenia after menopause Peripheral neuropathy (2012) Piriformis syndrome of right side Progressive neurological disorder Right hip pain Shortness of breath (08/27/15) Sjogren's syndrome (2012) Skin cancer (2015) Sleep apnea (2009) Small fiber polyneuropathy SOB (shortness of breath) (2010) Status post DANILO-BSO Visual disturbance Surgical History (Last Reviewed 08/28/20 @ 16:44 by JENAE Mark) Anesthesia complication History of carpal tunnel repair (1989) History of cervical spinal surgery (07/2008) History of laparoscopic cholecystectomy (2006) S/P DANILO-BSO (total abdominal hysterectomy and bilateral salpingo-oophorectomy) (01/2007) Status post hernia repair (2013) Status post hernia repair (2007) Visit Care Team Role Provider Type JENAE Mark Family Provider Advanced Daycare Director Primary Care Provider Specialty: Family Practice Address: [address] [place] [address], [id number] Email: [email or web address] Julian Meza MD Attending Provider Non-Staff Specialty: Neurology Address: [address] [place] [address], [id number] Email: Physical Therapy Re-Evaluation PT-OP-A Visit Information Start: 01/05/19 16:21 Freq: Status: Active Protocol: Document 08/29/20 08:14 [facility] (Rec: 08/29/20 09:03 [facility] [id number]) Out-Patient Physical Therapy Visit Information Visit Information Visit Type Treatment Note Visit Start Time 08:15 Visit Stop Time 09:01 Total Visit Minutes 46 Visit Number 44 PT-OP-B Current Condition Start: 01/05/19 16:21 Freq: Status: Active Protocol: Document 01/06/19 12:57 [facility] (Rec: 01/06/19 13:25 [facility] [id number]) Current Condition History of Current Condition Onset Date 4 yrs Current Complaints LE weakness and achiness, SOB History of Current Condition Gradual progressive weakness, started using cane May 2017. Has been seeing specialists and having tests with diagnosis of possible indeterminate type of muscular dystrophy. Also reports exercise intolerance with SOB, increasing fatigue, need for much slower pace. The more I do the worse I feel . Hoping to see if she can establish an exercise program that will not exhaust her. Requesting possible aquatic therapy. Difficulty getting out of chairs, off floor. 2018 8-10 falls, this year being more careful, last fall was in July. Has not suffererd injury. Started Prednisone yesterday 15 mg. Prior experience with Prednisone caused migraine; has headache but not migraine. LE weakness symmetrical, no numbness or tingling. With falls, reports usually [address] Frequently uses cane or walker. No dizziness. BP well-managed. Uses electric tricycle. Has recumbant exercise bike, reports not using, has tendency to overdo. 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 Stool in shower, can dress self. Trip to [place] next week, has anxiety about being able to tolerate. Prior Treatments and Tests muscle biopsy negative [facility] neurologist States MS and ALS ruled out as diagnoses. Future Testing and Treatments Planned Spoke today with Claudy Sotelo, doctor inclusion body myositis specialist at [facility] in [place]; has February 16 appointment Patient reports a second muscle biopsy recommended by [facility] physician Treatment Goals Patient/Caregiver Goals Improve strength/maintain, establish exercise program. Hoping for aquatic therapy. Had difficulty getting in/out of pool and felt uncoordinated last time in pool. Knows how to swim, but body has changed and it felt very difficult. Prior Functional Status Baseline Function- ADL's Independent Baseline Function- Mobility Independent Baseline Function- Gait independent without device Baseline Function- Work/School retired Baseline Function- Recreation/Hobbies walk, bike, hike Current Functional Impairments (Reported) Functional Limitations- ADL's slow, fatiguing Functional Limitations- Mobility/Gait very limited with c/o SOB, frequent rest breaks Functional Limitations- Work/School retired Functional Limitations- Recreation/ unable except has electric Hobbies tricycle PT-OP-C Subjective Start: 01/05/19 16:21 Freq: Status: Active Protocol: Document 08/29/20 08:14 [facility] (Rec: 08/29/20 09:03 [facility] [id number]) OP-PT Subjective Patient Comments Patient Comments Went to ER 08/21/20 put on soft foods due to diagnosis of colitis. Saw Dr. Doris Schreiber , long visit, had long discussion, recommended [facility]. Has telehealth visit with aviation technician aircraft today, also recommended consult with perforator loader. Previously denied from [facility], but hopeful with progression of symptoms she may qualify. Taking Mestinon and feels it is helpful in function, walking outside, practicing sanding on one leg. Feels like PT is her lifeline. PT-OP-D Balance Start: 01/05/19 16:21 Freq: Status: Active Protocol: Document 06/06/19 08:59 [facility] (Rec: 06/06/19 13:50 [facility] [id number]) Balance Tests Sheth Balance Test Sheth Balance Test Score 53 Sheth Impairment Rating 1 to 19% Impaired (Score 45-55 ) PT-OP-E Functional Tests Start: 01/05/19 16:21 Freq: Status: Active Protocol: Document 07/20/19 09:01 [facility] (Rec: 07/20/19 10:00 [facility] [id number]) Functional Tests 6 Minute Walk Test Comments not done due to fatigue PT-OP-G Mobility & Gait Start: 01/05/19 16:21 Freq: Status: Active Protocol: Document 07/04/19 11:54 [facility] (Rec: 07/04/19 11:56 [facility] [id number]) OP Mobility Evaluation Bed Mobility Rolling I Supine to and from Sit I Transfers Sit to Stand Indep, no hands initially. Requires use of hands with fatigue PT-OP-H Neuro Start: 01/05/19 16:21 Freq: Status: Active Protocol: Document 06/06/19 08:59 [facility] (Rec: 06/06/19 13:50 [facility] [id number]) Sensation Evaluation Gross Sensation Gross Sensation WNL PT-OP-J Posture/Palpation/Skin Start: 01/05/19 16:21 Freq: Status: Active Protocol: Document 01/06/19 12:57 [facility] (Rec: 01/09/19 12:55 [facility] [id number]) Skin Assessment Other Assessments Skin Assessment Comments intact, no edema or brusing evident PT-OP-K Range of Motion Start: 01/05/19 16:21 Freq: Status: Active Protocol: Document 01/06/19 12:57 [facility] (Rec: 01/09/19 12:55 [facility] [id number]) Cervical Spine Range of Motion Cervical Spine Active Comments WNL Lumbar Spine Range of Motion Lumbar Spine Active Comments WNL Shoulder Goniometric Range of Motion Shoulder Measured in Degrees left Shoulder ROM WFL Yes right Shoulder ROM WFL Yes Elbow/Forearm Range of Motion Elbow/Forearm Measured in Degrees girma Elbow/Forearm ROM WFL Yes Wrist Goniometric Range of Motion Wrist Measured in Degrees girma Wrist ROM WFL Yes Hip Goniometric Range of Motion Hip Measured in Degrees girma Hip ROM WFL Yes Knee Goniometric Range of Motion Knee Measured in Degrees girma Knee ROM WFL Yes Ankle and Foot Goniometric Range of Motion Ankle and Foot Measured in Degrees girma Ankle/Foot ROM WFL Yes PT-OP-M Strength Start: 01/05/19 16:21 Freq: Status: Active Protocol: Document 03/26/20 11:38 [facility] (Rec: 03/26/20 12:11 [facility] [id number]) Shoulder Strength Shoulder Manual Muscle Testing Left Flexion 4- Good- Extension 4 Good Right Flexion 4+ Good+ Extension 4+ Good+ Elbow/Forearm Strength Elbow and Forearm Manual Muscle Testing Left Extension (C7) 4- Good- Pronation 4- Good- Right Flexion (C6) 4+ Good+ Extension (C7) 4+ Good+ Wrist Strength Wrist Manual Muscle Testing Right Flexion (C7) 4- Good- Extension (C6) 4- Good- Hand Blood Bank Booking Clerk/Pinch Strength Hand Strength Left Comments 40,40, after a few UE ex: 24, 38lbs elbow bent rested on chair arm at side. Right Comments 24, 24, after a few UE ex; 12,20 lbs elbow bent rested on chair arm at side. PT-OP-Q Treatments Start: 01/05/19 16:21 Freq: Status: Active Protocol: Document 08/29/20 08:14 [facility] (Rec: 08/29/20 09:03 [facility] [id number]) Gym Equipment Shuttle Balance 2 Details chains red Comments bal and wt shift fwd/bck and side to side 1 Details chains blue Comments bal WBOS side to side bal and head turns balloon volleyball Gait Training Gait Activity gait with trekking poles Device Used 2 IceBreakering poles Level of Assistance SBA, cues Distance/Duration 10'x2 Treatment Focus balance, options for gait gait Treatment Focus activity tolerance, stability, left LE motor control Comments 3 min walk test 469' with FWW PT-OP-T Assessment and Plan Start: 01/05/19 16:21 Freq: Status: Active Protocol: Document 08/29/20 08:14 [facility] (Rec: 08/29/20 09:03 [facility] [id number]) Physical Therapy Assessment Goals Four Impairment low activity tolerance with 3 min walk test 250' Alf Goal (LTG) Improve 3 min walk test to 500 ' with single point cane 08/27/20: has recently improved 469' today with 4WW LTG Duration 10/28/20 Three Impairment strength Alf Goal (LTG) Establish well-tolerated aquatic exercise program and HEP focused on strengthening and balance for patient with patient demonstrated independence and compliance and demonstrate good knowledge of how to modify depending on symptoms. 06/22/19: goal progress 08/16/19: decline in LE strength left side, will need modification. Patient lost written HEP during move, and stress of move didn't allow her to exercise. 01/24/20: Patient has written ex for supine, sitting, and standing depending on how she is doing and what she feels she can tolerate any given day . Has been trying to walk most days. 05/28/20: Patient reports she has been unable to perform exercises past couple weeks due to SOB, fatigue, achiness. Hasn't felt up to trying ex bike. 07/04/20: hip flex 4/5 right 4-/ 5 left, hip abduction 4+/5 right, 3-/5 left, adduction 4+ /5 right, 4-/5 left, knee extension 5/5 right, 4+/5 left . Functional weakness left hip and knee. 08/28/20: hip flex 4/5 right, 4 -/5 left, hip abduction 4/5 right, 4-/5 left, adduction 4+ /5 right, 4-/5 left, knee extension 5-/5 right, 4+/5 left. Patient demonstrates Trendelenberg gait left though improved from previously, less apparent. LTG Duration 10/28/20 Two Impairment balance Short Term Goal (STG) Complete objective balance testing for baseline measurements 06/06/19: goal progress 06/22/19: further testing reveals good balance, cane required more for fatigue 11/16/19: decline in balance noted with SLS and tandem stand today, denies any fall 07/24/20: Patient denies any recent falls, fatigues quickly with balance ex, but noting improved stability on left LE Lighting Engineer Goal (LTG) Patient to be safe and independent with gait on level and uneven surfaces with least restrictive device, and have no reported falls. Will be compliant with recommendations for home safety. 06/22/19: patient currently using single point cane for gait. Feel she would benefit from use of 4WW in the community to allow her to rest when needed, but she is resistant to this at this time . 06/06/19: good goal progress 11/16/19: patient now using 4WW in community as recommended previously due to decline in strength and activity tolerance. Decreased foot clearance with gait noted today which increases fall risk. Will need addition and modification to HEP. 01/24/20: Patient has been ambulating with 4WW primarily, although today able to ambulate with straight cane for first time in weeks. She attributes this to possibly taking antibiotics. 05/28/20: No change noted in balance functionally, though patient unable to tolerate formal balance testing 07/04/20: SLS right 3 sec, left unable 08/27/20: SLS right 4 sec, left 2 sec LTG Duration 10/28/20 One Impairment activity tolerance Short Term Goal (STG) instruct in energy conservation and pacing 06/06/19: goal met STG Duration MET Alf Goal (LTG) Patient to demonstrate good understanding and compliance with energy conservation and pacing of activities. 06/22/19: good goal progress 11/16/19: due to decline in strength and function, needs further education and modification 07/04/20: ongoing education. Will need work on deep breathing and thoracic mobility to maximize breathing 04/25/20: continues to require modification due to variability of patient's energy level and activity tolerance. Today her activity tolerance was increased to her max of 310' on 2 min walk test. 05/28/20: much discussion required regarding modification of activity level and patient to consider use of power wheelchair for improved mobility less energy expenture. Also reviewed importance of gentle postural correction and deep breathing techniques to improve lung capacity. 07/24/20: Improving activity tolerance past couple weeks with patient reporting decrease in SOB, was able to take very short walk with this am and then tolerate 45 min PT session today (with frequent seated rest breaks). Continues to demonstrate improved understanding and follow- through with energy conservation and pacing of activities. LTG Duration 10/28/20 Assessment Summary Assessment Improvement in 3 min walk test , functional balance, activity tolerance, though very fatigued after PT. Primarily worked on balance with shuttle balance machine and did gait training with trekking poles with SBA and cues for sequencing, safety, discussion of trekking poles as option for gait; patient demonstrated good balance but found very fatiguing. Concerned over patient going to ER 3x over past month with gut issues, at least 2 of the times very close to PT sessions. Patient to be speaking to aviation technician aircraft today, and go back to perforator loader soon per physician recommendation. Hopeful about referral to [facility]. Physical Therapy Plan Frequency and Duration Frequency of Treatment 1x/Week Duration of Treatment 8 weeks Plan of Care Start Date 08/29/20 Plan of Care End Date 10/28/20 Therapeutic Interventions Therapeutic Interventions Aquatic Therapy,Balance Training,Coordination Training ,Gait Training,Home Exercise Program,Neuromuscular Re- education,Self-Care/Home Management,Therapeutic Activities,Therapeutic Exercises Next Visit Focus/Plan Next Note Type Treatment Note Next Visit Plan Assess response to today's treatment, progress ther ex, HEP, mobility skills as tolerated.
--- NOTE | 2020-09-10 16:56 | PT.OTN ---
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) Muscle weakness (generalized) (09/10/20) Physical Therapy Treatment Note PT-OP-A Visit Information Start: 01/05/19 16:21 Freq: Status: Active Protocol: Document 09/10/20 15:18 SAK (Rec: 09/10/20 15:26 SAK [id number]) Out-Patient Physical Therapy Visit Information Visit Information Visit Type Treatment Note Visit Start Time 15:20 Visit Stop Time 16:02 Total Visit Minutes 42 Visit Number 45 PT-OP-B Current Condition Start: 01/05/19 16:21 Freq: Status: Active Protocol: Document 01/06/19 12:57 SAK (Rec: 01/06/19 13:25 SAK [id number]) Current Condition History of Current Condition Onset Date 4 yrs Current Complaints LE weakness and achiness, SOB History of Current Condition Gradual progressive weakness, started using cane May 2017. Has been seeing specialists and having tests with diagnosis of possible indeterminate type of muscular dystrophy. Also reports exercise intolerance with SOB, increasing fatigue, need for much slower pace. The more I do the worse I feel . Hoping to see if she can establish an exercise program that will not exhaust her. Requesting possible aquatic therapy. Difficulty getting out of chairs, off floor. 2018 8-10 falls, this year being more careful, last fall was in July. Has not suffererd injury. Started Prednisone yesterday 15 mg. Prior experience with Prednisone caused migraine; has headache but not migraine. LE weakness symmetrical, no numbness or tingling. With falls, reports usually [address] Frequently uses cane or walker. No dizziness. BP well-managed. Uses electric tricycle. Has recumbant exercise bike, reports not using, has tendency to overdo. 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 Stool in shower, can dress self. Trip to [place] next week, has anxiety about being able to tolerate. Prior Treatments and Tests muscle biopsy negative [facility] neurologist States MS and ALS ruled out as diagnoses. Future Testing and Treatments Planned Spoke today with Claudy Sotelo, doctor inclusion body myositis specialist at [facility] in [place]; has February 16 appointment Patient reports a second muscle biopsy recommended by [facility] physician Treatment Goals Patient/Caregiver Goals Improve strength/maintain, establish exercise program. Hoping for aquatic therapy. Had difficulty getting in/out of pool and felt uncoordinated last time in pool. Knows how to swim, but body has changed and it felt very difficult. Prior Functional Status Baseline Function- ADL's Independent Baseline Function- Mobility Independent Baseline Function- Gait independent without device Baseline Function- Work/School retired Baseline Function- Recreation/Hobbies walk, bike, hike Current Functional Impairments (Reported) Functional Limitations- ADL's slow, fatiguing Functional Limitations- Mobility/Gait very limited with c/o SOB, frequent rest breaks Functional Limitations- Work/School retired Functional Limitations- Recreation/ unable except has electric Hobbies tricycle PT-OP-C Subjective Start: 01/05/19 16:21 Freq: Status: Active Protocol: Document 09/10/20 15:18 SAK (Rec: 09/10/20 15:26 SAK [id number]) OP-PT Subjective Patient Comments Patient Comments Has been more fatigued, not feeling as well past few days; down a level from where it was. Patient planning to contact her neurologist online as well as call [facility] to determine what will be involved for a referral or if she can self refer. Still feeling she doesn't have a diagnoses and doesn't fully fit into either MG or CIDP diagnoses. PT-OP-D Balance Start: 01/05/19 16:21 Freq: Status: Active Protocol: Document 06/06/19 08:59 SAK (Rec: 06/06/19 13:50 SAK [id number]) Balance Tests Sheth Balance Test Sheth Balance Test Score 53 Sheth Impairment Rating 1 to 19% Impaired (Score 45-55 ) PT-OP-E Functional Tests Start: 01/05/19 16:21 Freq: Status: Active Protocol: Document 07/20/19 09:01 SAK (Rec: 07/20/19 10:00 SAK [id number]) Functional Tests 6 Minute Walk Test Comments not done due to fatigue PT-OP-G Mobility & Gait Start: 01/05/19 16:21 Freq: Status: Active Protocol: Document 07/04/19 11:54 SP (Rec: 07/04/19 11:56 SP [id number]) OP Mobility Evaluation Bed Mobility Rolling I Supine to and from Sit I Transfers Sit to Stand Indep, no hands initially. Requires use of hands with fatigue PT-OP-H Neuro Start: 01/05/19 16:21 Freq: Status: Active Protocol: Document 06/06/19 08:59 [facility] (Rec: 06/06/19 13:50 [facility] [id number]) Sensation Evaluation Gross Sensation Gross Sensation WNL PT-OP-J Posture/Palpation/Skin Start: 01/05/19 16:21 Freq: Status: Active Protocol: Document 01/06/19 12:57 [facility] (Rec: 01/09/19 12:55 [facility] [id number]) Skin Assessment Other Assessments Skin Assessment Comments intact, no edema or brusing evident PT-OP-K Range of Motion Start: 01/05/19 16:21 Freq: Status: Active Protocol: Document 01/06/19 12:57 [facility] (Rec: 01/09/19 12:55 [facility] [id number]) Cervical Spine Range of Motion Cervical Spine Active Comments WNL Lumbar Spine Range of Motion Lumbar Spine Active Comments WNL Shoulder Goniometric Range of Motion Shoulder left Shoulder ROM WFL Yes right Shoulder ROM WFL Yes Elbow/Forearm Range of Motion Elbow/Forearm girma Elbow/Forearm ROM WFL Yes Wrist Goniometric Range of Motion Wrist girma Wrist ROM WFL Yes Hip Goniometric Range of Motion Hip girma Hip ROM WFL Yes Knee Goniometric Range of Motion Knee girma Knee ROM WFL Yes Ankle and Foot Goniometric Range of Motion Ankle and Foot girma Ankle/Foot ROM WFL Yes PT-OP-M Strength Start: 01/05/19 16:21 Freq: Status: Active Protocol: Document 03/26/20 11:38 [facility] (Rec: 03/26/20 12:11 [facility] [id number]) Shoulder Strength Shoulder Manual Muscle Testing Left Flexion 4- Good- Extension 4 Good Right Flexion 4+ Good+ Extension 4+ Good+ Elbow/Forearm Strength Elbow and Forearm Manual Muscle Testing Left Extension (C7) 4- Good- Pronation 4- Good- Right Flexion (C6) 4+ Good+ Extension (C7) 4+ Good+ Wrist Strength Wrist Manual Muscle Testing Right Flexion (C7) 4- Good- Extension (C6) 4- Good- Hand Mogul Operator/Pinch Strength Hand Strength Left Comments 40,40, after a few UE ex: 24, 38lbs elbow bent rested on chair arm at side. Right Comments 24, 24, after a few UE ex; 12,20 lbs elbow bent rested on chair arm at side. PT-OP-Q Treatments Start: 01/05/19 16:21 Freq: Status: Active Protocol: Document 09/10/20 15:18 [facility] (Rec: 09/10/20 15:26 [facility] [id number]) Gym Equipment Shuttle Balance 2 Details chains red Comments bal and wt shift fwd/bck and side to side 1 Details chains blue Comments bal WBOS side to side bal balloon volleyball Therapeutic Exercises Sitting Exercises pulleys Sitting Exercise Name flex, abduction Reps/Minutes 5x ea deep breathing Sitting Exercise Name with exhale focus Side bilateral Reps/Minutes 5x horizontal abduction Reps/Minutes 3x Comments with deep breathing Gait Training Gait Activity gait Treatment Focus activity tolerance, stability, left LE motor control Comments 3 min walk test 397' with FWW PT-OP-T Assessment and Plan Start: 01/05/19 16:21 Freq: Status: Active Protocol: Document 09/10/20 15:18 [facility] (Rec: 09/10/20 15:26 [facility] [id number]) Physical Therapy Assessment Goals Four Impairment low activity tolerance with 3 min walk test 250' [facility] Goal (LTG) Improve 3 min walk test to 500 ' with single point cane 08/27/20: has recently improved 469' today with 4WW LTG Duration 10/28/20 Three Impairment strength [facility] Goal (LTG) Establish well-tolerated aquatic exercise program and HEP focused on strengthening and balance for patient with patient demonstrated independence and compliance and demonstrate good knowledge of how to modify depending on symptoms. 06/22/19: goal progress 08/16/19: decline in LE strength left side, will need modification. Patient lost written HEP during move, and stress of move didn't allow her to exercise. 01/24/20: Patient has written ex for supine, sitting, and standing depending on how she is doing and what she feels she can tolerate any given day . Has been trying to walk most days. 05/28/20: Patient reports she has been unable to perform exercises past couple weeks due to SOB, fatigue, achiness. Hasn't felt up to trying ex bike. 07/04/20: hip flex 4/5 right 4-/ 5 left, hip abduction 4+/5 right, 3-/5 left, adduction 4+ /5 right, 4-/5 left, knee extension 5/5 right, 4+/5 left . Functional weakness left hip and knee. 08/28/20: hip flex 4/5 right, 4 -/5 left, hip abduction 4/5 right, 4-/5 left, adduction 4+ /5 right, 4-/5 left, knee extension 5-/5 right, 4+/5 left. Patient demonstrates Trendelenberg gait left though improved from previously, less apparent. LTG Duration 10/28/20 Two Impairment balance Short Term Goal (STG) Complete objective balance testing for baseline measurements 06/06/19: goal progress 06/22/19: further testing reveals good balance, cane required more for fatigue 11/16/19: decline in balance noted with SLS and tandem stand today, denies any fall 07/24/20: Patient denies any recent falls, fatigues quickly with balance ex, but noting improved stability on left LE [facility] Goal (LTG) Patient to be safe and independent with gait on level and uneven surfaces with least restrictive device, and have no reported falls. Will be compliant with recommendations for home safety. 06/22/19: patient currently using single point cane for gait. Feel she would benefit from use of 4WW in the community to allow her to rest when needed, but she is resistant to this at this time . 06/06/19: good goal progress 11/16/19: patient now using 4WW in community as recommended previously due to decline in strength and activity tolerance. Decreased foot clearance with gait noted today which increases fall risk. Will need addition and modification to HEP. 01/24/20: Patient has been ambulating with 4WW primarily, although today able to ambulate with straight cane for first time in weeks. She attributes this to possibly taking antibiotics. 05/28/20: No change noted in balance functionally, though patient unable to tolerate formal balance testing 07/04/20: SLS right 3 sec, left unable 08/27/20: SLS right 4 sec, left 2 sec LTG Duration 10/28/20 One Impairment activity tolerance Short Term Goal (STG) instruct in energy conservation and pacing 06/06/19: goal met STG Duration MET [facility] Goal (LTG) Patient to demonstrate good understanding and compliance with energy conservation and pacing of activities. 06/22/19: good goal progress 11/16/19: due to decline in strength and function, needs further education and modification 07/04/20: ongoing education. Will need work on deep breathing and thoracic mobility to maximize breathing 04/25/20: continues to require modification due to variability of patient's energy level and activity tolerance. Today her activity tolerance was increased to her max of 310' on 2 min walk test. 05/28/20: much discussion required regarding modification of activity level and patient to consider use of power wheelchair for improved mobility less energy expenture. Also reviewed importance of gentle postural correction and deep breathing techniques to improve lung capacity. 07/24/20: Improving activity tolerance past couple weeks with patient reporting decrease in SOB, was able to take very short walk with this am and then tolerate 45 min PT session today (with frequent seated rest breaks). Continues to demonstrate improved understanding and follow- through with energy conservation and pacing of activities. LTG Duration 10/28/20 Assessment Summary Assessment 3 min walk test 397 ft; decreased distance. Noted lateral trunk flexion to the left with gait, some correction with verbal cues. Patient verbalizing frustration with her physical limitations and is going to contact her neurologist as well as [facility]. She asked questions about power wheelchair and is looking at options and also what type of vehicle would be required to transport if going out in community. Physical Therapy Plan Frequency and Duration Frequency of Treatment 1x/Week Duration of Treatment 8 weeks Plan of Care Start Date 08/29/20 Plan of Care End Date 10/28/20 Therapeutic Interventions Therapeutic Interventions Aquatic Therapy,Balance Training,Coordination Training ,Gait Training,Home Exercise Program,Neuromuscular Re- education,Self-Care/Home Management,Therapeutic Activities,Therapeutic Exercises Next Visit Focus/Plan Next Note Type Treatment Note Next Visit Plan Assess response to today's treatment, progress ther ex, HEP, mobility skills as tolerated. Further disussion of power w/c options and transportation requirements.
--- NOTE | 2020-09-20 15:11 | PT.OTN ---
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) Muscle weakness (generalized) (09/20/20) Physical Therapy Treatment Note PT-OP-A Visit Information Start: 01/05/19 16:21 Freq: Status: Active Protocol: Document 09/20/20 10:32 SAK (Rec: 09/20/20 11:18 SAK [id number]) Out-Patient Physical Therapy Visit Information Visit Information Visit Type Treatment Note Visit Start Time 10:30 Visit Stop Time 11:15 Total Visit Minutes 45 Visit Number 46 PT-OP-B Current Condition Start: 01/05/19 16:21 Freq: Status: Active Protocol: Document 01/06/19 12:57 SAK (Rec: 01/06/19 13:25 SAK [id number]) Current Condition History of Current Condition Onset Date 4 yrs Current Complaints LE weakness and achiness, SOB History of Current Condition Gradual progressive weakness, started using cane May 2017. Has been seeing specialists and having tests with diagnosis of possible indeterminate type of muscular dystrophy. Also reports exercise intolerance with SOB, increasing fatigue, need for much slower pace. The more I do the worse I feel . Hoping to see if she can establish an exercise program that will not exhaust her. Requesting possible aquatic therapy. Difficulty getting out of chairs, off floor. 2018 8-10 falls, this year being more careful, last fall was in July. Has not suffererd injury. Started Prednisone yesterday 15 mg. Prior experience with Prednisone caused migraine; has headache but not migraine. LE weakness symmetrical, no numbness or tingling. With falls, reports usually [address] Frequently uses cane or walker. No dizziness. BP well-managed. Uses electric tricycle. Has recumbant exercise bike, reports not using, has tendency to overdo. Also weakness in UE's; hard to wash hair, can't hold behavioral science chair, can only get 1 plate out of cupboard at a time, doesn't carry groceries. Stool in shower, can dress self. Trip to [place] next week, has anxiety about being able to tolerate. Prior Treatments and Tests muscle biopsy negative [facility] neurologist States MS and ALS ruled out as diagnoses. Future Testing and Treatments Planned Spoke today with Claudy Sotelo, doctor inclusion body myositis specialist at [facility] in [place]; has February 16 appointment Patient reports a second muscle biopsy recommended by [facility] physician Treatment Goals Patient/Caregiver Goals Improve strength/maintain, establish exercise program. Hoping for aquatic therapy. Had difficulty getting in/out of pool and felt uncoordinated last time in pool. Knows how to swim, but body has changed and it felt very difficult. Prior Functional Status Baseline Function- ADL's Independent Baseline Function- Mobility Independent Baseline Function- Gait independent without device Baseline Function- Work/School retired Baseline Function- Recreation/Hobbies walk, bike, hike Current Functional Impairments (Reported) Functional Limitations- ADL's slow, fatiguing Functional Limitations- Mobility/Gait very limited with c/o SOB, frequent rest breaks Functional Limitations- Work/School retired Functional Limitations- Recreation/ unable except has electric Hobbies tricycle PT-OP-C Subjective Start: 01/05/19 16:21 Freq: Status: Active Protocol: Document 09/20/20 10:32 [facility] (Rec: 09/20/20 11:18 SAK [id number]) OP-PT Subjective Patient Comments Patient Comments More fatigued and SOB recently . If takes a walk doesn't have much energy left for anything else in her day. If gets overheated, wiped out. Feels she gets SOB with talking. Emailed new neurolgist about still feeling like she is still gradually declining. 4 weeks to go until single fiber EMG study. Mestinon helpful if taken very regularly. Getting less frequent good days. States also hasn't walked as much due to somehow injuring her left buttock while bending and reaching, pain sometimes as high as 7-8/10; doesn't have all the time or even every day. PT-OP-D Balance Start: 01/05/19 16:21 Freq: Status: Active Protocol: Document 06/06/19 08:59 [facility] (Rec: 06/06/19 13:50 [facility] [id number]) Balance Tests Sheth Balance Test Sheth Balance Test Score 53 Sheth Impairment Rating 1 to 19% Impaired (Score 45-55 ) PT-OP-E Functional Tests Start: 01/05/19 16:21 Freq: Status: Active Protocol: Document 07/20/19 09:01 SAK (Rec: 07/20/19 10:00 SAK [id number]) Functional Tests 6 Minute Walk Test Comments not done due to fatigue PT-OP-G Mobility & Gait Start: 01/05/19 16:21 Freq: Status: Active Protocol: Document 07/04/19 11:54 SP (Rec: 07/04/19 11:56 SP [id number]) OP Mobility Evaluation Bed Mobility Rolling I Supine to and from Sit I Transfers Sit to Stand Indep, no hands initially. Requires use of hands with fatigue PT-OP-H Neuro Start: 01/05/19 16:21 Freq: Status: Active Protocol: Document 06/06/19 08:59 SAK (Rec: 06/06/19 13:50 SAK [id number]) Sensation Evaluation Gross Sensation Gross Sensation WNL PT-OP-J Posture/Palpation/Skin Start: 01/05/19 16:21 Freq: Status: Active Protocol: Document 01/06/19 12:57 SAK (Rec: 01/09/19 12:55 SAK [id number]) Skin Assessment Other Assessments Skin Assessment Comments intact, no edema or brusing evident PT-OP-K Range of Motion Start: 01/05/19 16:21 Freq: Status: Active Protocol: Document 01/06/19 12:57 SAK (Rec: 01/09/19 12:55 SAK [id number]) Cervical Spine Range of Motion Cervical Spine Active Comments WNL Lumbar Spine Range of Motion Lumbar Spine Active Comments WNL Shoulder Goniometric Range of Motion Shoulder left Shoulder ROM WFL Yes right Shoulder ROM WFL Yes Elbow/Forearm Range of Motion Elbow/Forearm girma Elbow/Forearm ROM WFL Yes Wrist Goniometric Range of Motion Wrist girma Wrist ROM WFL Yes Hip Goniometric Range of Motion Hip girma Hip ROM WFL Yes Knee Goniometric Range of Motion Knee girma Knee ROM WFL Yes Ankle and Foot Goniometric Range of Motion Ankle and Foot girma Ankle/Foot ROM WFL Yes PT-OP-M Strength Start: 01/05/19 16:21 Freq: Status: Active Protocol: Document 03/26/20 11:38 SAK (Rec: 03/26/20 12:11 SAK [id number]) Shoulder Strength Shoulder Manual Muscle Testing Left Flexion 4- Good- Extension 4 Good Right Flexion 4+ Good+ Extension 4+ Good+ Elbow/Forearm Strength Elbow and Forearm Manual Muscle Testing Left Extension (C7) 4- Good- Pronation 4- Good- Right Flexion (C6) 4+ Good+ Extension (C7) 4+ Good+ Wrist Strength Wrist Manual Muscle Testing Right Flexion (C7) 4- Good- Extension (C6) 4- Good- Hand Senior Pastor/Pinch Strength Hand Strength Left Comments 40,40, after a few UE ex: 24, 38lbs elbow bent rested on chair arm at side. Right Comments 24, 24, after a few UE ex; 12,20 lbs elbow bent rested on chair arm at side. PT-OP-Q Treatments Start: 01/05/19 16:21 Freq: Status: Active Protocol: Document 09/20/20 10:32 [facility] (Rec: 09/20/20 11:18 [facility] [id number]) Gym Equipment Shuttle Balance 1 Details chains blue Comments bal WBOS side to side bal balloon volleyball Therapeutic Exercises Sitting Exercises pulleys Sitting Exercise Name flex, abduction Reps/Minutes 5x ea deep breathing Sitting Exercise Name with exhale focus Side bilateral Reps/Minutes 5x Gait Training Gait Activity gait level without device Description parallel bars Level of Assistance SBA Surface firm Distance/Duration 2 laps Treatment Focus hip stability, safety Comments mirror for visual feedback, cues for gluteal activation gait Treatment Focus activity tolerance, stability, left LE motor control Comments 3 min walk test 394' with FWW PT-OP-T Assessment and Plan Start: 01/05/19 16:21 Freq: Status: Active Protocol: Document 09/20/20 10:32 [facility] (Rec: 09/20/20 11:18 [facility] [id number]) Physical Therapy Assessment Goals Four Impairment low activity tolerance with 3 min walk test 250' Elastic Yarn Twister Helper Goal (LTG) Improve 3 min walk test to 500 ' with single point cane 08/27/20: has recently improved 469' today with 4WW LTG Duration 10/28/20 Three Impairment strength Shelter Goal (LTG) Establish well-tolerated aquatic exercise program and HEP focused on strengthening and balance for patient with patient demonstrated independence and compliance and demonstrate good knowledge of how to modify depending on symptoms. 06/22/19: goal progress 08/16/19: decline in LE strength left side, will need modification. Patient lost written HEP during move, and stress of move didn't allow her to exercise. 01/24/20: Patient has written ex for supine, sitting, and standing depending on how she is doing and what she feels she can tolerate any given day . Has been trying to walk most days. 05/28/20: Patient reports she has been unable to perform exercises past couple weeks due to SOB, fatigue, achiness. Hasn't felt up to trying ex bike. 07/04/20: hip flex 4/5 right 4-/ 5 left, hip abduction 4+/5 right, 3-/5 left, adduction 4+ /5 right, 4-/5 left, knee extension 5/5 right, 4+/5 left . Functional weakness left hip and knee. 08/28/20: hip flex 4/5 right, 4 -/5 left, hip abduction 4/5 right, 4-/5 left, adduction 4+ /5 right, 4-/5 left, knee extension 5-/5 right, 4+/5 left. Patient demonstrates Trendelenberg gait left though improved from previously, less apparent. LTG Duration 10/28/20 Two Impairment balance Short Term Goal (STG) Complete objective balance testing for baseline measurements 06/06/19: goal progress 06/22/19: further testing reveals good balance, cane required more for fatigue 11/16/19: decline in balance noted with SLS and tandem stand today, denies any fall 07/24/20: Patient denies any recent falls, fatigues quickly with balance ex, but noting improved stability on left LE Elastic Yarn Twister Helper Goal (LTG) Patient to be safe and independent with gait on level and uneven surfaces with least restrictive device, and have no reported falls. Will be compliant with recommendations for home safety. 06/22/19: patient currently using single point cane for gait. Feel she would benefit from use of 4WW in the community to allow her to rest when needed, but she is resistant to this at this time . 06/06/19: good goal progress 11/16/19: patient now using 4WW in community as recommended previously due to decline in strength and activity tolerance. Decreased foot clearance with gait noted today which increases fall risk. Will need addition and modification to HEP. 01/24/20: Patient has been ambulating with 4WW primarily, although today able to ambulate with straight cane for first time in weeks. She attributes this to possibly taking antibiotics. 05/28/20: No change noted in balance functionally, though patient unable to tolerate formal balance testing 07/04/20: SLS right 3 sec, left unable 08/27/20: SLS right 4 sec, left 2 sec LTG Duration 10/28/20 One Impairment activity tolerance Short Term Goal (STG) instruct in energy conservation and pacing 06/06/19: goal met STG Duration MET Shelter Goal (LTG) Patient to demonstrate good understanding and compliance with energy conservation and pacing of activities. 06/22/19: good goal progress 11/16/19: due to decline in strength and function, needs further education and modification 07/04/20: ongoing education. Will need work on deep breathing and thoracic mobility to maximize breathing 04/25/20: continues to require modification due to variability of patient's energy level and activity tolerance. Today her activity tolerance was increased to her max of 310' on 2 min walk test. 05/28/20: much discussion required regarding modification of activity level and patient to consider use of power wheelchair for improved mobility less energy expenture. Also reviewed importance of gentle postural correction and deep breathing techniques to improve lung capacity. 07/24/20: Improving activity tolerance past couple weeks with patient reporting decrease in SOB, was able to take very short walk with this am and then tolerate 45 min PT session today (with frequent seated rest breaks). Continues to demonstrate improved understanding and follow- through with energy conservation and pacing of activities. LTG Duration 10/28/20 Assessment Summary Assessment Patient c/o increased SOB and decreased tolerance for walking and standing. Doesn' t like trade-off of needing to walk less to be able to tolerate doing a little bit of other activity during the day . 3 min walk test 394 ft, even though did a little laundry, made a salad, and set the table prior to PT today. Hasn't looked into power w/c or scooter further. Improved tolerance for shuttle balance today, no LOB with increased challenge on blue chains. Physical Therapy Plan Frequency and Duration Frequency of Treatment 1x/Week Duration of Treatment 8 weeks Plan of Care Start Date 08/29/20 Plan of Care End Date 10/28/20 Therapeutic Interventions Therapeutic Interventions Aquatic Therapy,Balance Training,Coordination Training ,Gait Training,Home Exercise Program,Neuromuscular Re- education,Self-Care/Home Management,Therapeutic Activities,Therapeutic Exercises Next Visit Focus/Plan Next Note Type Treatment Note Next Visit Plan Assess response to today's treatment, progress ther ex, HEP, mobility skills as tolerated. Further disussion of power w/c options and transportation requirements.
--- NOTE | 2020-09-24 08:11 | PT-OP ANOTE ---
cancelled due to ill; in ER last night
--- NOTE | 2020-10-01 08:48 | PT-OP ANOTE ---
Patient was DNS for PT appointment. Hospital records show she was in ER yesterday. ASHLY
--- NOTE | 2020-11-12 16:29 | PT.OTN ---
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) Muscle weakness (generalized) (11/12/20) Physical Therapy Treatment Note PT-OP-A Visit Information Start: 01/05/19 16:21 Freq: Status: Active Protocol: Document 11/12/20 15:20 SAK (Rec: 11/12/20 16:29 [facility] [id number]) Out-Patient Physical Therapy Visit Information Visit Information Visit Type Treatment Note Visit Start Time 15:20 Visit Stop Time 16:04 Total Visit Minutes 44 Visit Number 47 PT-OP-B Current Condition Start: 01/05/19 16:21 Freq: Status: Active Protocol: Document 01/06/19 12:57 SAK (Rec: 01/06/19 13:25 SAK [id number]) Current Condition History of Current Condition Onset Date 4 yrs Current Complaints LE weakness and achiness, SOB History of Current Condition Gradual progressive weakness, started using cane May 2017. Has been seeing specialists and having tests with diagnosis of possible indeterminate type of muscular dystrophy. Also reports exercise intolerance with SOB, increasing fatigue, need for much slower pace. The more I do the worse I feel . Hoping to see if she can establish an exercise program that will not exhaust her. Requesting possible aquatic therapy. Difficulty getting out of chairs, off floor. 2018 8-10 falls, this year being more careful, last fall was in July. Has not suffererd injury. Started Prednisone yesterday 15 mg. Prior experience with Prednisone caused migraine; has headache but not migraine. LE weakness symmetrical, no numbness or tingling. With falls, reports usually [address] Frequently uses cane or walker. No dizziness. BP well-managed. Uses electric tricycle. Has recumbant exercise bike, reports not using, has tendency to overdo. 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 Stool in shower, can dress self. Trip to [place] next week, has anxiety about being able to tolerate. Prior Treatments and Tests muscle biopsy negative [facility] neurologist States MS and ALS ruled out as diagnoses. Future Testing and Treatments Planned Spoke today with Claudy Sotelo, doctor inclusion body myositis specialist at [facility] in [place]; has February 16 appointment Patient reports a second muscle biopsy recommended by [facility] physician Treatment Goals Patient/Caregiver Goals Improve strength/maintain, establish exercise program. Hoping for aquatic therapy. Had difficulty getting in/out of pool and felt uncoordinated last time in pool. Knows how to swim, but body has changed and it felt very difficult. Prior Functional Status Baseline Function- ADL's Independent Baseline Function- Mobility Independent Baseline Function- Gait independent without device Baseline Function- Work/School retired Baseline Function- Recreation/Hobbies walk, bike, hike Current Functional Impairments (Reported) Functional Limitations- ADL's slow, fatiguing Functional Limitations- Mobility/Gait very limited with c/o SOB, frequent rest breaks Functional Limitations- Work/School retired Functional Limitations- Recreation/ unable except has electric Hobbies tricycle PT-OP-C Subjective Start: 01/05/19 16:21 Freq: Status: Active Protocol: Document 11/12/20 15:20 SAK (Rec: 11/12/20 16:29 SAK [id number]) OP-PT Subjective Patient Comments Patient Comments Patient reports has been on antibiotics for about 1 month, was in ER 3x for either diverticulitis or pancreatitis . Feeling exhausted, has been using wheelchair more, minimal tolerance for doing HEP. Had small fiber biopsy, continues to be followed by neurologist who is recommending patient be worked up at either [facility] or [facility]. EMG study was negative for MG but apparently 5% of people with MG test negative. Patient feeling very discouraged. Surgeon stating she needs bowel resection but if she has MG having general anesthetic contraindicated. Agreeable to discharge from PT at this time, follow-up agaion in a few months. PT-OP-D Balance Start: 01/05/19 16:21 Freq: Status: Active Protocol: Document 06/06/19 08:59 SAK (Rec: 06/06/19 13:50 SAK [id number]) Balance Tests Sheth Balance Test Sheth Balance Test Score 53 Sheth Impairment Rating 1 to 19% Impaired (Score 45-55 ) PT-OP-E Functional Tests Start: 01/05/19 16:21 Freq: Status: Active Protocol: Document 07/20/19 09:01 SAK (Rec: 07/20/19 10:00 SAK [id number]) Functional Tests 6 Minute Walk Test Comments not done due to fatigue PT-OP-G Mobility & Gait Start: 01/05/19 16:21 Freq: Status: Active Protocol: Document 07/04/19 11:54 SP (Rec: 07/04/19 11:56 SP [id number]) OP Mobility Evaluation Bed Mobility Rolling I Supine to and from Sit I Transfers Sit to Stand Indep, no hands initially. Requires use of hands with fatigue PT-OP-H Neuro Start: 01/05/19 16:21 Freq: Status: Active Protocol: Document 06/06/19 08:59 SAK (Rec: 06/06/19 13:50 SAK [id number]) Sensation Evaluation Gross Sensation Gross Sensation WNL PT-OP-J Posture/Palpation/Skin Start: 01/05/19 16:21 Freq: Status: Active Protocol: Document 01/06/19 12:57 SAK (Rec: 01/09/19 12:55 SAK [id number]) Skin Assessment Other Assessments Skin Assessment Comments intact, no edema or brusing evident PT-OP-K Range of Motion Start: 01/05/19 16:21 Freq: Status: Active Protocol: Document 01/06/19 12:57 SAK (Rec: 01/09/19 12:55 SAK [id number]) Cervical Spine Range of Motion Cervical Spine Active Comments WNL Lumbar Spine Range of Motion Lumbar Spine Active Comments WNL Shoulder Goniometric Range of Motion Shoulder left Shoulder ROM WFL Yes right Shoulder ROM WFL Yes Elbow/Forearm Range of Motion Elbow/Forearm girma Elbow/Forearm ROM WFL Yes Wrist Goniometric Range of Motion Wrist girma Wrist ROM WFL Yes Hip Goniometric Range of Motion Hip girma Hip ROM WFL Yes Knee Goniometric Range of Motion Knee girma Knee ROM WFL Yes Ankle and Foot Goniometric Range of Motion Ankle and Foot girma Ankle/Foot ROM WFL Yes PT-OP-M Strength Start: 01/05/19 16:21 Freq: Status: Active Protocol: Document 03/26/20 11:38 SAK (Rec: 03/26/20 12:11 SAK [id number]) Shoulder Strength Shoulder Manual Muscle Testing Left Flexion 4- Good- Extension 4 Good Right Flexion 4+ Good+ Extension 4+ Good+ Elbow/Forearm Strength Elbow and Forearm Manual Muscle Testing Left Extension (C7) 4- Good- Pronation 4- Good- Right Flexion (C6) 4+ Good+ Extension (C7) 4+ Good+ Wrist Strength Wrist Manual Muscle Testing Right Flexion (C7) 4- Good- Extension (C6) 4- Good- Hand Gin Pole Operator/Pinch Strength Hand Strength Left Comments 40,40, after a few UE ex: 24, 38lbs elbow bent rested on chair arm at side. Right Comments 24, 24, after a few UE ex; 12,20 lbs elbow bent rested on chair arm at side. PT-OP-Q Treatments Start: 01/05/19 16:21 Freq: Status: Active Protocol: Document 11/12/20 15:20 [facility] (Rec: 11/12/20 16:29 [facility] [id number]) Gait Training Gait Activity gait level without device Description parallel bars Level of Assistance SBA Surface firm Distance/Duration 1 laps Treatment Focus hip stability, safety Comments mirror for visual feedback, cues for gluteal activation gait Treatment Focus activity tolerance, stability, left LE motor control Comments 3 min walk test 253' with FWW Neuro Re-Education Treatment Balance Activities tandem stand Surface level Equipment parallel bars Reps/Duration CG to min assist SLS Surface level Equipment rail for contact as needed Reps/Duration 6 sec right , 4 sec L PT-OP-T Assessment and Plan Start: 01/05/19 16:21 Freq: Status: Active Protocol: Document 11/12/20 15:20 [facility] (Rec: 11/12/20 16:29 [facility] [id number]) Physical Therapy Assessment Assessment Summary Assessment PT goals not achieved, patient status declined due to GI issues as well as still undiagnosed neurological disorder. At this time we have agreed to discharge patient from PT, looking at possibly further PT in a few months after she is able to address the GI issues, and possibly be worked up at one of recommended clinics. She has written HEP and she demonstrates good understanding of pacing her activities for energy conservation. Physical Therapy Plan Discharge Physical Therapy Discharge Reasons Change in Medical Status Discharge Comments Recommend see patient in approximately 3 months for evaluation, determine if appropriate for further PT.
--- NOTE | 2020-11-12 16:39 | PT.OTRE ---
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) Muscle weakness (generalized) (11/12/20) Past Medical History (Last Reviewed 10/21/20 @ 07:48 by Yina Madrigal DO) Abdominal pain Activity intolerance Acute pancreatitis Anemia Anosmia Atypical chest pain Cervical dystonia (1986) Chicken pox (1956) Cholecystectomy planned Chronic fatigue (08/07/15) Colon polyps Cough CTS (carpal tunnel syndrome) (1986) Denervation of muscle Depression (1974) Diastasis of rectus abdominis (08/07/15) Dyspnea Dyspnea Dyspnea on exertion Episodic lightheadedness Fatigue Gastritis Generalized abdominal pain (08/07/15) Headache Hyperlipidemia Hypertension Itch of skin Measles (1957) Metallic taste (10/11/15) Mumps (1958) Neoplasm of uncertain behavior of skin (10/11/15) NSAID induced gastritis Osteopenia after menopause Peripheral neuropathy (2012) Piriformis syndrome of right side Progressive neurological disorder Right hip pain Shortness of breath (08/27/15) Sjogren's syndrome (2012) Skin cancer (2015) Sleep apnea (2009) Small fiber polyneuropathy SOB (shortness of breath) (2010) Status post DANILO-BSO Visual disturbance Surgical History (Last Reviewed 10/21/20 @ 07:48 by Yina Madrigal DO) Anesthesia complication History of carpal tunnel repair (1989) History of cervical spinal surgery (07/2008) History of laparoscopic cholecystectomy (2006) S/P DANILO-BSO (total abdominal hysterectomy and bilateral salpingo-oophorectomy) (01/2007) Status post hernia repair (2013) Status post hernia repair (2007) Visit Care Team Role Provider Type JENAE Mark Family Provider Advanced Laboratory Sampler Primary Care Provider Specialty: Family Practice Address: [address] [place] [address], [id number] Email: [email or web address] Julian Meza MD Attending Provider Non-Staff Specialty: Neurology Address: [address] [place] [address], [phone] Email: Physical Therapy Re-Evaluation PT-OP-A Visit Information Start: 01/05/19 16:21 Freq: Status: Active Protocol: Document 11/12/20 15:20 [facility] (Rec: 11/12/20 16:29 [facility] [id number]) Out-Patient Physical Therapy Visit Information Visit Information Visit Type Treatment Note Visit Start Time 15:20 Visit Stop Time 16:04 Total Visit Minutes 44 Visit Number 47 PT-OP-B Current Condition Start: 01/05/19 16:21 Freq: Status: Active Protocol: Document 01/06/19 12:57 [facility] (Rec: 01/06/19 13:25 [facility] [id number]) Current Condition History of Current Condition Onset Date 4 yrs Current Complaints LE weakness and achiness, SOB History of Current Condition Gradual progressive weakness, started using cane May 2017. Has been seeing specialists and having tests with diagnosis of possible indeterminate type of muscular dystrophy. Also reports exercise intolerance with SOB, increasing fatigue, need for much slower pace. The more I do the worse I feel . Hoping to see if she can establish an exercise program that will not exhaust her. Requesting possible aquatic therapy. Difficulty getting out of chairs, off floor. 2018 8-10 falls, this year being more careful, last fall was in July. Has not suffererd injury. Started Prednisone yesterday 15 mg. Prior experience with Prednisone caused migraine; has headache but not migraine. LE weakness symmetrical, no numbness or tingling. With falls, reports usually [address] Frequently uses cane or walker. No dizziness. BP well-managed. Uses electric tricycle. Has recumbant exercise bike, reports not using, has tendency to overdo. 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 Stool in shower, can dress self. Trip to [place] next week, has anxiety about being able to tolerate. Prior Treatments and Tests muscle biopsy negative [facility] neurologist States MS and ALS ruled out as diagnoses. Future Testing and Treatments Planned Spoke today with Claudy Sotelo, doctor inclusion body myositis specialist at [facility] in [place]; has February 16 appointment Patient reports a second muscle biopsy recommended by [facility] physician Treatment Goals Patient/Caregiver Goals Improve strength/maintain, establish exercise program. Hoping for aquatic therapy. Had difficulty getting in/out of pool and felt uncoordinated last time in pool. Knows how to swim, but body has changed and it felt very difficult. Prior Functional Status Baseline Function- ADL's Independent Baseline Function- Mobility Independent Baseline Function- Gait independent without device Baseline Function- Work/School retired Baseline Function- Recreation/Hobbies walk, bike, hike Current Functional Impairments (Reported) Functional Limitations- ADL's slow, fatiguing Functional Limitations- Mobility/Gait very limited with c/o SOB, frequent rest breaks Functional Limitations- Work/School retired Functional Limitations- Recreation/ unable except has electric Hobbies tricycle PT-OP-C Subjective Start: 01/05/19 16:21 Freq: Status: Active Protocol: Document 11/12/20 15:20 [facility] (Rec: 11/12/20 16:29 [facility] [id number]) OP-PT Subjective Patient Comments Patient Comments Patient reports has been on antibiotics for about 1 month, was in ER 3x for either diverticulitis or pancreatitis . Feeling exhausted, has been using wheelchair more, minimal tolerance for doing HEP. Had small fiber biopsy, continues to be followed by neurologist who is recommending patient be worked up at either [facility] or [facility]. EMG study was negative for MG but apparently 5% of people with MG test negative. Patient feeling very discouraged. Surgeon stating she needs bowel resection but if she has MG having general anesthetic contraindicated. Agreeable to discharge from PT at this time, follow-up agaion in a few months. PT-OP-D Balance Start: 01/05/19 16:21 Freq: Status: Active Protocol: Document 06/06/19 08:59 [facility] (Rec: 06/06/19 13:50 [facility] [id number]) Balance Tests Sheth Balance Test Sheth Balance Test Score 53 Sheth Impairment Rating 1 to 19% Impaired (Score 45-55 ) PT-OP-E Functional Tests Start: 01/05/19 16:21 Freq: Status: Active Protocol: Document 07/20/19 09:01 [facility] (Rec: 07/20/19 10:00 [facility] [id number]) Functional Tests 6 Minute Walk Test Comments not done due to fatigue PT-OP-G Mobility & Gait Start: 01/05/19 16:21 Freq: Status: Active Protocol: Document 07/04/19 11:54 [facility] (Rec: 07/04/19 11:56 [facility] [id number]) OP Mobility Evaluation Bed Mobility Rolling I Supine to and from Sit I Transfers Sit to Stand Indep, no hands initially. Requires use of hands with fatigue PT-OP-H Neuro Start: 01/05/19 16:21 Freq: Status: Active Protocol: Document 06/06/19 08:59 [facility] (Rec: 06/06/19 13:50 [facility] [id number]) Sensation Evaluation Gross Sensation Gross Sensation WNL PT-OP-J Posture/Palpation/Skin Start: 01/05/19 16:21 Freq: Status: Active Protocol: Document 01/06/19 12:57 [facility] (Rec: 01/09/19 12:55 [facility] [id number]) Skin Assessment Other Assessments Skin Assessment Comments intact, no edema or brusing evident PT-OP-K Range of Motion Start: 01/05/19 16:21 Freq: Status: Active Protocol: Document 01/06/19 12:57 [facility] (Rec: 01/09/19 12:55 [facility] [id number]) Cervical Spine Range of Motion Cervical Spine Active Comments WNL Lumbar Spine Range of Motion Lumbar Spine Active Comments WNL Shoulder Goniometric Range of Motion Shoulder Measured in Degrees left Shoulder ROM WFL Yes right Shoulder ROM WFL Yes Elbow/Forearm Range of Motion Elbow/Forearm Measured in Degrees girma Elbow/Forearm ROM WFL Yes Wrist Goniometric Range of Motion Wrist Measured in Degrees girma Wrist ROM WFL Yes Hip Goniometric Range of Motion Hip Measured in Degrees girma Hip ROM WFL Yes Knee Goniometric Range of Motion Knee Measured in Degrees girma Knee ROM WFL Yes Ankle and Foot Goniometric Range of Motion Ankle and Foot Measured in Degrees girma Ankle/Foot ROM WFL Yes PT-OP-M Strength Start: 01/05/19 16:21 Freq: Status: Active Protocol: Document 03/26/20 11:38 [facility] (Rec: 03/26/20 12:11 [facility] [id number]) Shoulder Strength Shoulder Manual Muscle Testing Left Flexion 4- Good- Extension 4 Good Right Flexion 4+ Good+ Extension 4+ Good+ Elbow/Forearm Strength Elbow and Forearm Manual Muscle Testing Left Extension (C7) 4- Good- Pronation 4- Good- Right Flexion (C6) 4+ Good+ Extension (C7) 4+ Good+ Wrist Strength Wrist Manual Muscle Testing Right Flexion (C7) 4- Good- Extension (C6) 4- Good- Hand Entry Level Account Executive/Pinch Strength Hand Strength Left Comments 40,40, after a few UE ex: 24, 38lbs elbow bent rested on chair arm at side. Right Comments 24, 24, after a few UE ex; 12,20 lbs elbow bent rested on chair arm at side. PT-OP-Q Treatments Start: 01/05/19 16:21 Freq: Status: Active Protocol: Document 11/12/20 15:20 [facility] (Rec: 11/12/20 16:29 [facility] [id number]) Gait Training Gait Activity gait level without device Description parallel bars Level of Assistance SBA Surface firm Distance/Duration 1 laps Treatment Focus hip stability, safety Comments mirror for visual feedback, cues for gluteal activation gait Treatment Focus activity tolerance, stability, left LE motor control Comments 3 min walk test 253' with FWW Neuro Re-Education Treatment Balance Activities tandem stand Surface level Equipment parallel bars Reps/Duration CG to min assist SLS Surface level Equipment rail for contact as needed Reps/Duration 6 sec right , 4 sec L PT-OP-T Assessment and Plan Start: 01/05/19 16:21 Freq: Status: Active Protocol: Document 11/12/20 15:20 [facility] (Rec: 11/12/20 16:29 [facility] [id number]) Physical Therapy Assessment Goals Four Impairment low activity tolerance with 3 min walk test 250' Art Class Model Goal (LTG) Improve 3 min walk test to 500 ' with single point cane 08/27/20: has recently improved 469' today with 4WW 11/12/20: 3 min walk test 253 today LTG Duration 10/28/20 Three Impairment strength Art Class Model Goal (LTG) Establish well-tolerated aquatic exercise program and HEP focused on strengthening and balance for patient with patient demonstrated independence and compliance and demonstrate good knowledge of how to modify depending on symptoms. 06/22/19: goal progress 08/16/19: decline in LE strength left side, will need modification. Patient lost written HEP during move, and stress of move didn't allow her to exercise. 01/24/20: Patient has written ex for supine, sitting, and standing depending on how she is doing and what she feels she can tolerate any given day . Has been trying to walk most days. 05/28/20: Patient reports she has been unable to perform exercises past couple weeks due to SOB, fatigue, achiness. Hasn't felt up to trying ex bike. 07/04/20: hip flex 4/5 right 4-/ 5 left, hip abduction 4+/5 right, 3-/5 left, adduction 4+ /5 right, 4-/5 left, knee extension 5/5 right, 4+/5 left . Functional weakness left hip and knee. 08/28/20: hip flex 4/5 right, 4 -/5 left, hip abduction 4/5 right, 4-/5 left, adduction 4+ /5 right, 4-/5 left, knee extension 5-/5 right, 4+/5 left. Patient demonstrates Trendelenberg gait left though improved from previously, less apparent. 11/12/20: too fatigued for MMT LTG Duration 10/28/20 Two Impairment balance Short Term Goal (STG) Complete objective balance testing for baseline measurements 06/06/19: goal progress 06/22/19: further testing reveals good balance, cane required more for fatigue 11/16/19: decline in balance noted with SLS and tandem stand today, denies any fall 07/24/20: Patient denies any recent falls, fatigues quickly with balance ex, but noting improved stability on left LE Art Class Model Goal (LTG) Patient to be safe and independent with gait on level and uneven surfaces with least restrictive device, and have no reported falls. Will be compliant with recommendations for home safety. 06/22/19: patient currently using single point cane for gait. Feel she would benefit from use of 4WW in the community to allow her to rest when needed, but she is resistant to this at this time . 06/06/19: good goal progress 11/16/19: patient now using 4WW in community as recommended previously due to decline in strength and activity tolerance. Decreased foot clearance with gait noted today which increases fall risk. Will need addition and modification to HEP. 01/24/20: Patient has been ambulating with 4WW primarily, although today able to ambulate with straight cane for first time in weeks. She attributes this to possibly taking antibiotics. 05/28/20: No change noted in balance functionally, though patient unable to tolerate formal balance testing 07/04/20: SLS right 3 sec, left unable 08/27/20: SLS right 4 sec, left 2 sec 11/12/20: had improved to 12 sec right and 4 sec left, but after being ill now 6 sec right and 4 sec left today. LTG Duration 10/28/20 One Impairment activity tolerance Short Term Goal (STG) instruct in energy conservation and pacing 06/06/19: goal met STG Duration MET Art Class Model Goal (LTG) Patient to demonstrate good understanding and compliance with energy conservation and pacing of activities. 06/22/19: good goal progress 11/16/19: due to decline in strength and function, needs further education and modification 07/04/20: ongoing education. Will need work on deep breathing and thoracic mobility to maximize breathing 04/25/20: continues to require modification due to variability of patient's energy level and activity tolerance. Today her activity tolerance was increased to her max of 310' on 2 min walk test. 05/28/20: much discussion required regarding modification of activity level and patient to consider use of power wheelchair for improved mobility less energy expenture. Also reviewed importance of gentle postural correction and deep breathing techniques to improve lung capacity. 07/24/20: Improving activity tolerance past couple weeks with patient reporting decrease in SOB, was able to take very short walk with this am and then tolerate 45 min PT session today (with frequent seated rest breaks). Continues to demonstrate improved understanding and follow- through with energy conservation and pacing of activities. 11/12/20: goal met with patient using wheelchair more frequently recently due to illness, decline in activity tolerance. Depending on if energy level and activity tolerance rebounds, patient may benefit from the use of a power wheelchair to allow more functional independence in the home as at this time has to carefully plan any ambulation as she becomes severely fatigued with activity. LTG Duration 10/28/20 Assessment Summary Assessment PT goals not achieved, patient status declined due to GI issues as well as still undiagnosed neurological disorder. At this time we have agreed to discharge patient from PT, looking at possibly further PT in a few months after she is able to address the GI issues, and possibly be worked up at one of recommended clinics for more firm diagnosis. At that time she may be better able to tolerate and benefit from physical therapy. She has been issued written HEP for options of supine, sitting, and standing exercises depending on energy level on any particular day and she is independent in those exercises , and she demonstrates good understanding of pacing her activities for energy conservation. Depending on her ability to recover function after this most recent illness, patient may benefit from the use of a power wheelchair for allowing improved functional independence in the home. Physical Therapy Plan Frequency and Duration Frequency of Treatment 1 visit Duration of Treatment 1 week Plan of Care Start Date 11/12/20 Plan of Care End Date 11/19/20 Discharge Physical Therapy Discharge Reasons Change in Medical Status Discharge Comments Recommend see patient in approximately 3 months for evaluation, determine if appropriate for further PT. Will need new order for physical therapy.
== END 2020-11-13 08:35 | disposition home or self-care (01) ==
LOC: PHYS 15:15
PROVIDERS: Family Provider Nurse Practitioner; PCP Nurse Practitioner; Visit Provider Psychiatry & Neurology Neurology
DX: G71.11 Myotonic muscular dystrophy (principal); G24.3 Spasmodic torticollis
CPT/HCPCS: 97110; 97112; 97113; 97116; 97163; 97164; 97530; 97535

== ENCOUNTER 2020-12-04 13:49 | Emergency (ER) | payer MEDICARE, BC, SELFPAY ==
[2020-10-04 13:43] VITALS: BMI 33.3
[2020-12-04] VITALS (73 sets, daily range): BP systolic 93–164; BP diastolic 54–102; PULSE 48–78; RESP 11–32; TEMP 36.9; O2SAT 99
--- NOTE | 2020-12-04 14:00 | DI.RAD.S_ITS ---
PROCEDURE: XR CHEST 1V INDICATIONS: chest pain TECHNIQUE: One view of the chest was acquired. COMPARISON: [facility], CR, XR CHEST 1V, 07/24/2020, 14:48. [facility], CR, XR CHEST 2V, 05/30/2020, 15:39. FINDINGS: Surgical changes and devices: None. Lungs and pleura: Lungs are clear. No pleural effusions or pneumothorax. Mediastinum: Mediastinal contours appear normal. Heart size is normal. Bones and chest wall: No suspicious bony lesions. Overlying soft tissues appear unremarkable. IMPRESSION: Normal for age, source of current chest pain symptoms is not seen. Dictated by: Salazar Hargrove M.D. on 12/04/2020 at 14:48 Approved by: Salazar Hargrove M.D. on 12/04/2020 at 14:48
[2020-12-04 14:38] LABS: Add Manual Diff / Slide Review NO; Basophils Absolute Auto 100 /uL (0-100); Basophils Percent Auto 1.5 % (0-2); Eosinophils Absolute Auto 200 /uL (0-450); Eosinophils Percent Auto 2.8 % (2-4); Hematocrit 37.2 % (36-46); Hemoglobin 12.3 g/dL (12.0-16.0); Lymphocytes Absolute Auto 1800 /uL (1100-4500); Lymphocytes Percent Auto 29.1 % (25-40); Mean Corpuscular HGB Conc 33.1 % (30-36); Mean Corpuscular Hemoglobin 27.7 PG (26-34); Mean Corpuscular Volume 83.8 fL (80-100); Monocytes Absolute Auto 400 /uL (0-900); Monocytes Percent Auto 7.1 % (3-14); Neutrophils Absolute Auto 3700 /uL (1500-7000); Neutrophils Percent Auto 59.5 % (50-75); Platelet Count 266 X10^3/uL (150-400); Red Blood Cell Count 4.44 X10^6/uL (4.0-5.2); White Blood Cell Count 6.2 X10^3/uL (4.5-11.0)
[2020-12-04 14:47] LABS: Alanine Aminotransferase 22 IU/L (<35); Albumin 4.8 g/dL (3.5-5.0); Albumin Globulin Ratio 1.6 (1.0-2.8); Alkaline Phosphatase 117 U/L (38-126); Aspartate Aminotransferase 26 IU/L (14-36); BUN Creatinine Ratio 20.3 (6-22); Bilirubin Total 0.4 mg/dL (0.2-1.3); Blood Urea Nitrogen 14 mg/dL (7-17); Calcium 10.5 mg/dL (8.4-10.2); Carbon Dioxide 24 mmol/L (22-32); Chloride 105 mmol/L (98-107); Creatine Kinase 52 U/L (30-135); Estimated Glomerular Filt Rate > 60.0 mL/min (>60); Glucose 96 mg/dL (80-110); HEMOLYSIS < 15 (0-50); Lipase 349 U/L (23-300); Potassium 3.6 mmol/L (3.4-5.1); Sodium 138 mmol/L (137-145); Total Protein 7.8 g/dL (6.3-8.2)
[2020-12-04 14:59] LABS: Troponin I < 0.012 ng/mL (0.01-0.034)
--- NOTE | 2020-12-04 15:52 | ED_ITS ---
HPI - Chest Pain <Yinanaman MadrigalDO - Last Filed: 12/05/20 20:32> General Chief Complaint: Chest Pain Stated Complaint: chest pain, pressure, nausea, SOB, sweating Time Seen by Provider: 12/04/20 15:52 Source: patient Mode of arrival: Ambulatory History of Present Illness HPI narrative: This is a 70-year-old female who comes emergency department with acute onset of chest pain, which became more of a pressure sensation, nausea and shortness of breath as well as diaphoresis this morning. Patient states the nausea started about 11:00 a.m., the chest discomfort started at about 11:30 a.m.. Patient has continued to have symptoms. She did not have any improvement at home. She has not had any fevers. She has had a mild cough since her symptoms started. She denies any vomiting. She denies any abdominal pain. She states she does have some mild radiation between her shoulders. No black or bloody stools. No diarrhea constipation. No urinary symptoms. Patient is on medication for hypertension, she is seronegative for myasthenia gravis but states that she is still under investigation. She does not have any known cardiac history. No cardiac stents. No tobacco, rare alcohol she has had 2 alcoholic drinks in the last 10 days and no illicit. Related Data Home Medications Medication Instructions Recorded Confirmed aspirin 81 mg tablet,delayed 81 mg PO QPM #0 01/25/17 12/05/20 release pyridostigmine bromide 60 mg tablet 60 mg PO 6XD tab 08/09/20 12/05/20 aripiprazole 20 mg tablet 10 mg PO QAM 12/05/20 12/05/20 Previous Rx's Medication Instructions Recorded miscellaneous medical supply 1 each .ROUTE .COMPLEX #1 each 08/23/19 hydrochlorothiazide 50 mg tablet 50 mg PO DAILY #90 tab 11/13/20 losartan 100 mg tablet 100 mg PO DAILY #90 tab 11/13/20 Allergies Allergy/AdvReac Type Severity Reaction Status Date / Time cimetidine [From TAGAMET] Allergy Mild hallucinati Verified 12/04/20 21:33 ons codeine [CODEINE] Allergy Mild hallucinati Verified 12/04/20 21:33 ons lisinopril [LISINOPRIL] Allergy Mild cough/GI Verified 12/04/20 21:33 issues ranitidine [From ZANTAC] Allergy Mild hallucinati Verified 12/04/20 21:33 ons prednisone Allergy Unknown Verified 12/04/20 21:33 ciprofloxacin AdvReac Severe Weakness Verified 12/04/20 21:33 Review of Systems <Yina Madrigal DO - Last Filed: 12/05/20 20:32> Review of Systems ROS Unobtainable: All systems reviewed & are unremarkable except as noted in HPI and below Patient History <Yina Madrigal DO - Last Filed: 12/05/20 20:32> Medical History Abdominal pain Activity intolerance Acute pancreatitis Anemia Anosmia Atypical chest pain Cervical dystonia (1986) Chicken pox (1956) Cholecystectomy planned Chronic fatigue (08/07/15) Colon polyps Cough CTS (carpal tunnel syndrome) (1986) Denervation of muscle Depression (1974) Diastasis of rectus abdominis (08/07/15) Dyspnea Dyspnea Dyspnea on exertion Episodic lightheadedness Fatigue Gastritis Generalized abdominal pain (08/07/15) Headache Hyperlipidemia Hypertension Itch of skin Measles (1957) Metallic taste (10/11/15) Mumps (1958) Neoplasm of uncertain behavior of skin (10/11/15) NSAID induced gastritis Osteopenia after menopause Peripheral neuropathy (2012) Piriformis syndrome of right side Progressive neurological disorder Right hip pain Shortness of breath (08/27/15) Sjogren's syndrome (2012) Skin cancer (2015) Sleep apnea (2009) Small fiber polyneuropathy SOB (shortness of breath) (2010) Status post DANILO-BSO Visual disturbance Surgical History Anesthesia complication History of carpal tunnel repair (1989) History of cervical spinal surgery (07/2008) History of laparoscopic cholecystectomy (2006) S/P DANILO-BSO (total abdominal hysterectomy and bilateral salpingo-oophorectomy) (01/2007) Status post hernia repair (2013) Status post hernia repair (2007) Family History Brother Age: 63 Prostate cancer Heart disease Hypertension High cholesterol Heart attack Brother Age: 61 Hypertension Mental health problem Kidney transplant recipient Chronic kidney disease with end stage renal failure on dialysis Father Colon cancer Heart disease Mental health problem Heart failure Grandfather Heart disease Hypertension Brain aneurysm Mother Cancer Hypertension NHL (non-Hodgkin's lymphoma) Grandmother Stroke Sister Age: 69 Celiac disease High cholesterol Mental health problem Thyroid disorder Sister Age: 65 Psoriatic arthritis Thyroid disorder Grandmother Alzheimer's disease Grandfather Colon cancer Sister Breast cancer Sister Suicide Brother No problems noted. Sister Thyroid disorder Social History marital status: household members: spouse occupational status: previously employed Smoking Status: Never smoker alcohol intake: current substance use type: does not use Smoking Status: Never smoker alcohol intake frequency: holidays/special occasions only Substance Use Type: does not use Exam <Yina Madrigal DO - Last Filed: 12/05/20 20:32> Narrative Exam Narrative: GENERAL: Alert and oriented x three, female in mild distress. Patient is not diaphoretic. HEENT: Head normocephalic, atraumatic, EOMI, pupils reactive, face symmetric, moist mucous membranes NECK: Supple, full range of motion CARDIOVASCULAR: Regular rate and rhythm without murmurs, rubs or gallops. RESPIRATORY: Breath sounds equal bilaterally, no wheezes rales or rhonchi. ABDOMEN: Soft, nontender to palpation, mild discomfort with epigastric tenderness but not really painful. Normoactive bowel sounds all 4 quadrants. No guarding or rebound, rigidity, no mass. Nondistended. : No CVA tenderness EXTREMITIES: Normal range of motion, no clubbing or edema. Neurovascularly intact NEUROLOGICAL: Cranial nerves II through XII grossly intact. Moving all extremities SKIN: Warm, dry, no petechiae, no rashes or lesions. Initial Vital Signs Initial Vital Signs: Vital Signs Temperature 98.5 F 12/04/20 13:57 Pulse Rate 63 12/04/20 13:57 Respiratory Rate 20 12/04/20 13:57 Blood Pressure 164/72 H 12/04/20 13:57 Pulse Oximetry 99 12/04/20 13:57 <Aaron Castillo DO - Last Filed: 12/05/20 08:12> Initial Vital Signs Initial Vital Signs: Vital Signs Temperature 98.5 F 12/04/20 13:57 Pulse Rate 63 12/04/20 13:57 Respiratory Rate 20 12/04/20 13:57 Blood Pressure 164/72 H 12/04/20 13:57 Pulse Oximetry 99 12/04/20 13:57 Course <Yina Madrigal, - Last Filed: 12/05/20 20:32> Orders Ordered: Discontinued Medications Acetaminophen (Acetaminophen 325 Mg Tablet) 650 mg PO NOW ONE Stop: 12/04/20 23:35 Last Admin: 12/04/20 23:39 Dose: 650 mg Documented by: CRISTIANO Acetaminophen (Acetaminophen 325 Mg Tablet) 650 mg PO NOW ONE Stop: 12/05/20 05:58 Last Admin: 12/05/20 06:06 Dose: 650 mg Documented by: CRISTIANO Acetaminophen (Acetaminophen 325 Mg Tablet) 650 mg PO Q6HR PRN PRN Reason: Pain, Severe (7-10) Last Admin: 12/05/20 12:25 Dose: 650 mg Documented by: DANAY Aripiprazole (Aripiprazole 10 Mg Tablet) 10 mg PO NOW ONE Stop: 12/05/20 08:33 Last Admin: 12/05/20 10:12 Dose: 10 mg Documented by: JULIAN Aspirin (Aspirin 81 Mg Chew Tab) 324 mg PO NOW ONE Stop: 12/04/20 16:18 Last Admin: 12/04/20 16:30 Dose: 324 mg Documented by: MAY Aspirin (Aspirin 81 Mg Chew Tab) 324 mg PO NOW ONE Stop: 12/05/20 08:33 Last Admin: 12/05/20 10:14 Dose: 324 mg Documented by: JULIAN Atorvastatin Calcium (Atorvastatin 20 Mg Tablet) 80 mg PO NOW ONE Stop: 12/04/20 19:41 Last Admin: 12/04/20 20:56 Dose: Not Given Documented by: JULIAN Atorvastatin Calcium (Atorvastatin 20 Mg Tablet) 80 mg PO NOW ONE Stop: 12/04/20 20:01 Last Admin: 12/05/20 10:23 Dose: 80 mg Documented by: JULIAN Heparin Sodium (Porcine) (Heparin 5,000 Unit/Ml Vial) 5,000 unit IV NOW ONE Stop: 12/04/20 17:55 Last Admin: 12/04/20 18:25 Dose: 5,000 unit Documented by: MAY Nitroglycerin (Nitroglycerin) 50 mg in 250 mls @ 1.5 mls/hr IV TITRATE FREDDIE; Protocol Last Titration: 12/05/20 13:29 Dose: 0 mcg/min, 0 mls/hr Documented by: Admin: 12/04/20 18:26 Dose: 5 mcg/min, 1.5 mls/hr Documented by: MAY Heparin Sodium/Dextrose (Heparin Drip) 25,000 unit in 500 mls @ 19.813 mls/hr IV CONT FREDDIE; Protocol Last Infusion: 12/05/20 13:28 Dose: 0 units/kg/hr, 0 mls/hr Documented by: Infusion: 12/05/20 07:00 Dose: 9.69 units/kg/hr, 16 mls/hr Documented by: Infusion: 12/04/20 18:52 Dose: 12.11 units/kg/hr, 20 mls/hr Documented by: Admin: 12/04/20 18:26 Dose: 12 units/kg/hr, 19.813 mls/hr Documented by: MAY Losartan Potassium (Losartan 50 Mg Tablet) 100 mg PO NOW ONE Stop: 12/05/20 08:33 Last Admin: 12/05/20 10:12 Dose: 100 mg Documented by: JULIAN Morphine Sulfate (Morphine 4 Mg/Ml Inj) 4 mg IV NOW ONE Stop: 12/04/20 17:03 Last Admin: 12/04/20 19:34 Dose: Not Given Documented by: JULIAN Nitroglycerin (Nitroglycerin 0.4 Mg Sl Tab) 0.4 mg SL [id number] PRN PRN Reason: Chest Pain Last Admin: 12/04/20 16:49 Dose: 0.4 mg Documented by: Admin: 12/04/20 16:41 Dose: 0.4 mg Documented by: Admin: 12/04/20 16:30 Dose: 0.4 mg Documented by: MAY Ondansetron HCl (Ondansetron 4 Mg Odt) 4 mg SL NOW ONE Stop: 12/04/20 23:47 Last Admin: 12/04/20 23:50 Dose: 4 mg Documented by: CRISTIANO Ondansetron HCl (Ondansetron 4 Mg/2 Ml Inj) 4 mg IV NOW ONE Stop: 12/05/20 05:58 Last Admin: 12/05/20 06:06 Dose: 4 mg Documented by: CRISTIANO Consultations Consultation #1: Dr. Ross, cardiology at [facility]. EKGs reviewed, patient concerning for ischemia. Does not feel stat transfer but would be on list to ca th, agrees with nitro gtt and heparin gtt. Recontact for changing symptoms. Consultation #2: Dr. Perez, cardiology at [facility]. Asks for CTA chest to rule out other causes. Is negative they would want patient where they have cath capabilities. If positive or has other cause causing EKG changes could go to different [facility] facility. Consultation #3: Dr. Gerardo, hospitalist at [facility]. Accepts for transfer. Discussed labs up to this date, CBC, troponin and chemistries are pending, CTA is negative except for some interstitial changes which could be pulmonary edema although BNP yesterday was in the 50s. But is not currently available waiting for assignment before transfer. Vital Signs Vital signs: Vital Signs - 8 hr 12/05/20 12:45 12/05/20 13:00 Pulse Rate 59 L 45 L Respiratory Rate 17 14 Blood Pressure 118/60 Pulse Oximetry 95 <Aaron Castillo DO - Last Filed: 12/05/20 08:12> Orders Ordered: Discontinued Medications Acetaminophen (Acetaminophen 325 Mg Tablet) 650 mg PO NOW ONE Stop: 12/04/20 23:35 Last Admin: 12/04/20 23:39 Dose: 650 mg Documented by: CRISTIANO Acetaminophen (Acetaminophen 325 Mg Tablet) 650 mg PO NOW ONE Stop: 12/05/20 05:58 Last Admin: 12/05/20 06:06 Dose: 650 mg Documented by: CRISTIANO Acetaminophen (Acetaminophen 325 Mg Tablet) 650 mg PO Q6HR PRN PRN Reason: Pain, Severe (7-10) Last Admin: 12/05/20 12:25 Dose: 650 mg Documented by: DANAY Aripiprazole (Aripiprazole 10 Mg Tablet) 10 mg PO NOW ONE Stop: 12/05/20 08:33 Last Admin: 12/05/20 10:12 Dose: 10 mg Documented by: JULIAN Aspirin (Aspirin 81 Mg Chew Tab) 324 mg PO NOW ONE Stop: 12/04/20 16:18 Last Admin: 12/04/20 16:30 Dose: 324 mg Documented by: MAY Aspirin (Aspirin 81 Mg Chew Tab) 324 mg PO NOW ONE Stop: 12/05/20 08:33 Last Admin: 12/05/20 10:14 Dose: 324 mg Documented by: JULIAN Atorvastatin Calcium (Atorvastatin 20 Mg Tablet) 80 mg PO NOW ONE Stop: 12/04/20 19:41 Last Admin: 12/04/20 20:56 Dose: Not Given Documented by: JULIAN Atorvastatin Calcium (Atorvastatin 20 Mg Tablet) 80 mg PO NOW ONE Stop: 12/04/20 20:01 Last Admin: 12/05/20 10:23 Dose: 80 mg Documented by: JULIAN Heparin Sodium (Porcine) (Heparin 5,000 Unit/Ml Vial) 5,000 unit IV NOW ONE Stop: 12/04/20 17:55 Last Admin: 12/04/20 18:25 Dose: 5,000 unit Documented by: MAY Nitroglycerin (Nitroglycerin) 50 mg in 250 mls @ 1.5 mls/hr IV TITRATE FREDDIE; Protocol Last Titration: 12/05/20 13:29 Dose: 0 mcg/min, 0 mls/hr Documented by: Admin: 12/04/20 18:26 Dose: 5 mcg/min, 1.5 mls/hr Documented by: MAY Heparin Sodium/Dextrose (Heparin Drip) 25,000 unit in 500 mls @ 19.813 mls/hr IV CONT FREDDIE; Protocol Last Infusion: 12/05/20 13:28 Dose: 0 units/kg/hr, 0 mls/hr Documented by: Infusion: 12/05/20 07:00 Dose: 9.69 units/kg/hr, 16 mls/hr Documented by: Infusion: 12/04/20 18:52 Dose: 12.11 units/kg/hr, 20 mls/hr Documented by: Admin: 12/04/20 18:26 Dose: 12 units/kg/hr, 19.813 mls/hr Documented by: MAY Losartan Potassium (Losartan 50 Mg Tablet) 100 mg PO NOW ONE Stop: 12/05/20 08:33 Last Admin: 12/05/20 10:12 Dose: 100 mg Documented by: JULIAN Morphine Sulfate (Morphine 4 Mg/Ml Inj) 4 mg IV NOW ONE Stop: 12/04/20 17:03 Last Admin: 12/04/20 19:34 Dose: Not Given Documented by: JULIAN Nitroglycerin (Nitroglycerin 0.4 Mg Sl Tab) 0.4 mg SL [id number] PRN PRN Reason: Chest Pain Last Admin: 12/04/20 16:49 Dose: 0.4 mg Documented by: Admin: 12/04/20 16:41 Dose: 0.4 mg Documented by: Admin: 12/04/20 16:30 Dose: 0.4 mg Documented by: MAY Ondansetron HCl (Ondansetron 4 Mg Odt) 4 mg SL NOW ONE Stop: 12/04/20 23:47 Last Admin: 12/04/20 23:50 Dose: 4 mg Documented by: CRISTIANO Ondansetron HCl (Ondansetron 4 Mg/2 Ml Inj) 4 mg IV NOW ONE Stop: 12/05/20 05:58 Last Admin: 12/05/20 06:06 Dose: 4 mg Documented by: CRISTIANO Vital Signs Vital signs: Vital Signs - 8 hr 12/05/20 12:45 12/05/20 13:00 Pulse Rate 59 L 45 L Respiratory Rate 17 14 Blood Pressure 118/60 Pulse Oximetry 95 MDM - Chest Pain <Yina Madrigal DO - Last Filed: 12/05/20 20:32> Lab Data Result diagrams: 12/05/20 09:57 12/05/20 09:57 Labs: Lab Results 12/04/20 12/04/20 12/04/20 Range/Units 14:10 14:10 14:10 WBC 6.2 (4.5-11.0) X10^3/uL RBC 4.44 (4.0-5.2) X10^6/uL Hgb 12.3 (12.0-16.0) g/dL Hct 37.2 (36-46) % MCV 83.8 (80-100) fL MCH 27.7 (26-34) PG MCHC 33.1 (30-36) % RDW 16.0 H (11.6-14.8) % Plt Count 266 (150-400) X10^3/uL Neut % (Auto) 59.5 (50-75) % Lymph % (Auto) 29.1 (25-40) % [place] % (Auto) 7.1 (3-14) % Eos % (Auto) 2.8 (2-4) % Baso % (Auto) 1.5 (0-2) % Neut # (Auto) 3700 (2407-2350) /uL Lymph # (Auto) 1800 (7390-0416) /uL [place] # (Auto) 400 (0-900) /uL Eos # (Auto) 200 (0-450) /uL Baso # (Auto) 100 (0-100) /uL APTT (26.4-36.2) SECONDS D-Dimer (<230) ng/mL Sodium 138 (137-145) mmol/L Potassium 3.6 (3.4-5.1) mmol/L Chloride 105 (98-107) mmol/L Carbon Dioxide 24 (22-32) mmol/L BUN 14 (7-17) mg/dL Creatinine 0.69 (0.52-1.04) mg/dL Estimated GFR > 60.0 (>60) mL/min BUN/Creatinine Ratio 20.3 (6-22) Glucose 96 (80-110) mg/dL Calcium 10.5 H (8.4-10.2) mg/dL Total Bilirubin 0.4 (0.2-1.3) mg/dL AST 26 (14-36) IU/L ALT 22 (<35) IU/L Alkaline Phosphatase 117 (38-126) U/L Total Creatine Kinase 52 (30-135) U/L CK-MB (CK-2) TNP CK-MB (CK-2) Rel Index TNP Troponin I < 0.012 (0.01-0.034) ng/mL NT-Pro-B Natriuret Pep 51 (<125) pg/mL Total Protein 7.8 (6.3-8.2) g/dL Albumin 4.8 (3.5-5.0) g/dL Globulin 3.0 (1.7-4.1) g/dL Albumin/Globulin Ratio 1.6 (1.0-2.8) Lipase 349 H (23-300) U/L SARS-CoV-2 (PCR) (Negative) 12/04/20 12/04/20 12/04/20 Range/Units 16:16 16:35 18:02 WBC (4.5-11.0) X10^3/uL RBC (4.0-5.2) X10^6/uL Hgb (12.0-16.0) g/dL Hct (36-46) % MCV (80-100) fL MCH (26-34) PG MCHC (30-36) % RDW (11.6-14.8) % Plt Count (150-400) X10^3/uL Neut % (Auto) (50-75) % Lymph % (Auto) (25-40) % [place] % (Auto) (3-14) % Eos % (Auto) (2-4) % Baso % (Auto) (0-2) % Neut # (Auto) (2500-4490) /uL Lymph # (Auto) (6688-3156) /uL [place] # (Auto) (0-900) /uL Eos # (Auto) (0-450) /uL Baso # (Auto) (0-100) /uL APTT (26.4-36.2) SECONDS D-Dimer 290 H (<230) ng/mL Sodium (137-145) mmol/L Potassium (3.4-5.1) mmol/L Chloride (98-107) mmol/L Carbon Dioxide (22-32) mmol/L BUN (7-17) mg/dL Creatinine (0.52-1.04) mg/dL Estimated GFR (>60) mL/min BUN/Creatinine Ratio (6-22) Glucose (80-110) mg/dL Calcium (8.4-10.2) mg/dL Total Bilirubin (0.2-1.3) mg/dL AST (14-36) IU/L ALT (<35) IU/L Alkaline Phosphatase (38-126) U/L Total Creatine Kinase (30-135) U/L CK-MB (CK-2) CK-MB (CK-2) Rel Index Troponin I < 0.012 (0.01-0.034) ng/mL NT-Pro-B Natriuret Pep (<125) pg/mL Total Protein (6.3-8.2) g/dL Albumin (3.5-5.0) g/dL Globulin (1.7-4.1) g/dL Albumin/Globulin Ratio (1.0-2.8) Lipase (23-300) U/L SARS-CoV-2 (PCR) Negative (Negative) 12/04/20 12/05/20 12/05/20 Range/Units 18:02 00:43 00:43 WBC (4.5-11.0) X10^3/uL RBC (4.0-5.2) X10^6/uL Hgb (12.0-16.0) g/dL Hct (36-46) % MCV (80-100) fL MCH (26-34) PG MCHC (30-36) % RDW (11.6-14.8) % Plt Count (150-400) X10^3/uL Neut % (Auto) (50-75) % Lymph % (Auto) (25-40) % [place] % (Auto) (3-14) % Eos % (Auto) (2-4) % Baso % (Auto) (0-2) % Neut # (Auto) (0894-5446) /uL Lymph # (Auto) (6302-5309) /uL [place] # (Auto) (0-900) /uL Eos # (Auto) (0-450) /uL Baso # (Auto) (0-100) /uL APTT 34 148 H* D (26.4-36.2) SECONDS D-Dimer (<230) ng/mL Sodium (137-145) mmol/L Potassium (3.4-5.1) mmol/L Chloride (98-107) mmol/L Carbon Dioxide (22-32) mmol/L BUN (7-17) mg/dL Creatinine (0.52-1.04) mg/dL Estimated GFR (>60) mL/min BUN/Creatinine Ratio (6-22) Glucose (80-110) mg/dL Calcium (8.4-10.2) mg/dL Total Bilirubin (0.2-1.3) mg/dL AST (14-36) IU/L ALT (<35) IU/L Alkaline Phosphatase (38-126) U/L Total Creatine Kinase (30-135) U/L CK-MB (CK-2) CK-MB (CK-2) Rel Index Troponin I < 0.012 (0.01-0.034) ng/mL NT-Pro-B Natriuret Pep (<125) pg/mL Total Protein (6.3-8.2) g/dL Albumin (3.5-5.0) g/dL Globulin (1.7-4.1) g/dL Albumin/Globulin Ratio (1.0-2.8) Lipase (23-300) U/L SARS-CoV-2 (PCR) (Negative) 12/05/20 12/05/20 12/05/20 Range/Units 06:05 09:57 09:57 WBC 6.6 (4.5-11.0) X10^3/uL RBC 3.86 L (4.0-5.2) X10^6/uL Hgb 10.6 L (12.0-16.0) g/dL Hct 32.3 L (36-46) % MCV 83.7 (80-100) fL MCH 27.5 (26-34) PG MCHC 32.8 (30-36) % RDW 15.9 H (11.6-14.8) % Plt Count 214 (150-400) X10^3/uL Neut % (Auto) 68.4 (50-75) % Lymph % (Auto) 21.1 L (25-40) % [place] % (Auto) 6.3 (3-14) % Eos % (Auto) 3.3 (2-4) % Baso % (Auto) 0.9 (0-2) % Neut # (Auto) 4500 (6528-9453) /uL Lymph # (Auto) 1400 (1669-4448) /uL [place] # (Auto) 400 (0-900) /uL Eos # (Auto) 200 (0-450) /uL Baso # (Auto) 100 (0-100) /uL APTT 81 H* D (26.4-36.2) SECONDS D-Dimer (<230) ng/mL Sodium 133 L (137-145) mmol/L Potassium 3.8 (3.4-5.1) mmol/L Chloride 106 (98-107) mmol/L Carbon Dioxide 23 (22-32) mmol/L BUN 15 (7-17) mg/dL Creatinine 0.75 (0.52-1.04) mg/dL Estimated GFR > 60.0 (>60) mL/min BUN/Creatinine Ratio 20.0 (6-22) Glucose 91 (80-110) mg/dL Calcium 9.3 (8.4-10.2) mg/dL Total Bilirubin (0.2-1.3) mg/dL AST (14-36) IU/L ALT (<35) IU/L Alkaline Phosphatase (38-126) U/L Total Creatine Kinase (30-135) U/L CK-MB (CK-2) CK-MB (CK-2) Rel Index Troponin I < 0.012 (0.01-0.034) ng/mL NT-Pro-B Natriuret Pep (<125) pg/mL Total Protein (6.3-8.2) g/dL Albumin (3.5-5.0) g/dL Globulin (1.7-4.1) g/dL Albumin/Globulin Ratio (1.0-2.8) Lipase (23-300) U/L SARS-CoV-2 (PCR) (Negative) Imaging Data Chest x-ray: Radiologist's Impression: [address] [id number] ReportSigned Patient: Elizabeth Maravilla [facility]#: [id number]: [id number]:[id number]/Sex: 70 / FDate of Service: 12/04/20Loc: EDAccession Number: [id number] Procedure: XR chest 1V Ordering Provider: Yina Madrigal D.O. PROCEDURE: XR CHEST 1V INDICATIONS: chest pain TECHNIQUE: One view of the chest was acquired. COMPARISON: [facility], XR CHEST 1V, 07/24/2020, 14:48. Located Within [facility], , XR CHEST 2V, 05/30/2020, 15:39. FINDINGS: Surgical changes and devices: None. Lungs and pleura: Lungs are clear. No pleural effusions or pneumothorax. Mediastinum: Mediastinal contours appear normal. Heart size is normal. Bones and chest wall: No suspicious bony lesions. Overlying soft tissues lyubov ear unremarkable. IMPRESSION: Normal for age, source of current chest pain symptoms is not seen. Dictated by: Salazar Hargrove M.D. on 12/04/2020 at 14:48 Approved by: Salazar Hargrove M.D. on 12/04/2020 at 14:48 US - abdomen: My Impression: [address] [id number] ReportSigned Patient: Elizabeth Maravilla MMR#: [id number]: 1950Acct:[id number]/Sex: 70 / FDate of Service: 12/04/20Loc: EDAccession Number: [id number] Procedure: US abdomen limited Ordering Provider: Yina Madrigal D.O. PROCEDURE: US ABDOMEN LIMITED INDICATIONS: epigastric/chest pain, hx pancreatitis. TECHNIQUE: Real-time scanning was performed of the abdominal and retroperitoneal organs, with image documentation. COMPARISON: Located Within [facility], CT, CT ABDOMEN PELVIS W CON, 01/15/2020, 11:57. Located Within [facility], CT, CT ABDOMEN PELVIS W CON, 10/21/2020, 8:19. Located Within [facility], US, US ABDOMEN LIMITED, 08/06/2020, 12:38. FINDINGS: Liver: Liver is normal in size and homogeneous in echotexture. Gallbladder: Status post cholecystectomy Biliary ducts: Intrahepatic bile ducts are non-dilated. Extrahepatic bile duct caliber measures 11 mm. Normal is 6-7 mm or less in diameter, or 10 mm or less post-cholecystectomy. Pancreas: There is a 0.6 x 0.7 x 0.7 cm ill-defined hypoechoic area near the pancreatic head. There is also a hypoechoic area within the pancreatic body measuring 1.4 x 0.8 x 1.4 cm. There is a previously described hypoechoic and hypodense region in the pancreatic head which may represent lesions described on prior imaging dating back to January 15, 2020. Remainder of the visualized portions of the pancreas are sonographically normal. Miscellaneous: No free abdominal fluid. IMPRESSION: 1. Normal sonographic evaluation of the liver. 2. Status post cholecystectomy. Mild prominence of the common bile duct likely related to post cholecystectomy physiologic dilatation. 3. Ill-defined hypoechoic lesions within the pancreas as described above likely representing cystic lesions. These have been described on prior imaging jerson luation and appear to have been present dating back to December 2019. Recommend dedicated outpatient CT or MRI of the abdomen using pancreatic mass protocol. Dictated by: Jimbo Turk M.D. on 12/04/2020 at 18:00 Approved by: Jimbo Turk M.D. on 12/04/2020 at 18:09 ECG Data Interpretation: EKG 1. Normal sinus rhythm, rate of 68 OR 158 QRS of 102 and QTC of 457. EKG 2. Shows sinus bradycardia with a rate of 58, P are 170, QRS of 96 and QTC of 451. Patient appears to have T-wave inversion occurring in lateral leads EKG 3 shows sinus bradycardia rate 55 P are 174 QRS of 96 and QTC 447. Patient has significantly more T-wave inversion and depression in lateral leads do not appreciate true elevation. EKG 4. 12/05/20: Sinus bradycardia, T-wave abnormalities consistent with prior EKGs from yesterday particularly 3. Rate of 49 P are 166 QRS of 96 and QTC 431. T-wave inversion in lateral leads V1 through V6. No elevation appreciated. MDM Narrative Medical decision making narrative: This is a 70-year-old female comes to the emergency department with complaint of chest pain pressure in nausea which I in the department is responsive to nitro. Patient had mildly elevated lipase and ultrasound shows stable changed to the pancreas but patient developed EKG changes which are concerning for cardiac nature. Ddimer is negative after age adjustment. lipase slightly high and US has changes noted on report that do not appear different as prior. Patient was placed on nitro drip, heparin was initiated. Discussed with Cardiology. Patient's initial [address] Ross from Cardiology at [facility] would like to transfer patient for cardiac catheterization urgently. She does not feel patient needs emergent catheterization ER to ER as this moment. There is little bed available the recently holding patient until there is bed available at outside hospital. Patient signed out to Dr. Castillo while pending transfer. Dr Castillo: Patient has remained stable overnight. No further chest discomfort. Heparin has been maintained per protocol. She has received a couple doses of Tylenol secondary to headache and also Zofran for nausea. Care turned back over to Dr. Madrigal to continue to evaluate and disposition. Dr. Madrigal: Patient was signed back over to myself. Patient has had some nausea overnight but no other worsening symptoms. She did have some Zofran at 6:00 a.m.. Heparin it has been continued per protocol. She also receives some Tylenol for headache. Patient's EKG, CBC, BMP and troponin were repeated as it has been greater than 8 hours. Multiple hospitals recontacted and no beds c urrently available. Wait listed at [facility]. <Aaron Castillo, DO - Last Filed: 12/05/20 08:12> Lab Data Labs: Lab Results 12/04/20 12/04/20 12/04/20 Range/Units 14:10 14:10 14:10 WBC 6.2 (4.5-11.0) X10^3/uL RBC 4.44 (4.0-5.2) X10^6/uL Hgb 12.3 (12.0-16.0) g/dL Hct 37.2 (36-46) % MCV 83.8 (80-100) fL MCH 27.7 (26-34) PG MCHC 33.1 (30-36) % RDW 16.0 H (11.6-14.8) % Plt Count 266 (150-400) X10^3/uL Neut % (Auto) 59.5 (50-75) % Lymph % (Auto) 29.1 (25-40) % [place] % (Auto) 7.1 (3-14) % Eos % (Auto) 2.8 (2-4) % Baso % (Auto) 1.5 (0-2) % Neut # (Auto) 3700 (2235-1369) /uL Lymph # (Auto) 1800 (3665-3780) /uL [place] # (Auto) 400 (0-900) /uL Eos # (Auto) 200 (0-450) /uL Baso # (Auto) 100 (0-100) /uL APTT (26.4-36.2) SECONDS D-Dimer (<230) ng/mL Sodium 138 (137-145) mmol/L Potassium 3.6 (3.4-5.1) mmol/L Chloride 105 (98-107) mmol/L Carbon Dioxide 24 (22-32) mmol/L BUN 14 (7-17) mg/dL Creatinine 0.69 (0.52-1.04) mg/dL Estimated GFR > 60.0 (>60) mL/min BUN/Creatinine Ratio 20.3 (6-22) Glucose 96 (80-110) mg/dL Calcium 10.5 H (8.4-10.2) mg/dL Total Bilirubin 0.4 (0.2-1.3) mg/dL AST 26 (14-36) IU/L ALT 22 (<35) IU/L Alkaline Phosphatase 117 (38-126) U/L Total Creatine Kinase 52 (30-135) U/L CK-MB (CK-2) TNP CK-MB (CK-2) Rel Index TNP Troponin I < 0.012 (0.01-0.034) ng/mL NT-Pro-B Natriuret Pep 51 (<125) pg/mL Total Protein 7.8 (6.3-8.2) g/dL Albumin 4.8 (3.5-5.0) g/dL Globulin 3.0 (1.7-4.1) g/dL Albumin/Globulin Ratio 1.6 (1.0-2.8) Lipase 349 H (23-300) U/L SARS-CoV-2 (PCR) (Negative) 12/04/20 12/04/20 12/04/20 Range/Units 16:16 16:35 18:02 WBC (4.5-11.0) X10^3/uL RBC (4.0-5.2) X10^6/uL Hgb (12.0-16.0) g/dL Hct (36-46) % MCV (80-100) fL MCH (26-34) PG MCHC (30-36) % RDW (11.6-14.8) % Plt Count (150-400) X10^3/uL Neut % (Auto) (50-75) % Lymph % (Auto) (25-40) % [place] % (Auto) (3-14) % Eos % (Auto) (2-4) % Baso % (Auto) (0-2) % Neut # (Auto) (7466-9659) /uL Lymph # (Auto) (4690-9665) /uL [place] # (Auto) (0-900) /uL Eos # (Auto) (0-450) /uL Baso # (Auto) (0-100) /uL APTT (26.4-36.2) SECONDS D-Dimer 290 H (<230) ng/mL Sodium (137-145) mmol/L Potassium (3.4-5.1) mmol/L Chloride (98-107) mmol/L Carbon Dioxide (22-32) mmol/L BUN (7-17) mg/dL Creatinine (0.52-1.04) mg/dL Estimated GFR (>60) mL/min BUN/Creatinine Ratio (6-22) Glucose (80-110) mg/dL Calcium (8.4-10.2) mg/dL Total Bilirubin (0.2-1.3) mg/dL AST (14-36) IU/L ALT (<35) IU/L Alkaline Phosphatase (38-126) U/L Total Creatine Kinase (30-135) U/L CK-MB (CK-2) CK-MB (CK-2) Rel Index Troponin I < 0.012 (0.01-0.034) ng/mL NT-Pro-B Natriuret Pep (<125) pg/mL Total Protein (6.3-8.2) g/dL Albumin (3.5-5.0) g/dL Globulin (1.7-4.1) g/dL Albumin/Globulin Ratio (1.0-2.8) Lipase (23-300) U/L SARS-CoV-2 (PCR) Negative (Negative) 12/04/20 12/05/20 12/05/20 Range/Units 18:02 00:43 00:43 WBC (4.5-11.0) X10^3/uL RBC (4.0-5.2) X10^6/uL Hgb (12.0-16.0) g/dL Hct (36-46) % MCV (80-100) fL MCH (26-34) PG MCHC (30-36) % RDW (11.6-14.8) % Plt Count (150-400) X10^3/uL Neut % (Auto) (50-75) % Lymph % (Auto) (25-40) % [place] % (Auto) (3-14) % Eos % (Auto) (2-4) % Baso % (Auto) (0-2) % Neut # (Auto) (0816-9128) /uL Lymph # (Auto) (1822-7407) /uL [place] # (Auto) (0-900) /uL Eos # (Auto) (0-450) /uL Baso # (Auto) (0-100) /uL APTT 34 148 H* D (26.4-36.2) SECONDS D-Dimer (<230) ng/mL Sodium (137-145) mmol/L Potassium (3.4-5.1) mmol/L Chloride (98-107) mmol/L Carbon Dioxide (22-32) mmol/L BUN (7-17) mg/dL Creatinine (0.52-1.04) mg/dL Estimated GFR (>60) mL/min BUN/Creatinine Ratio (6-22) Glucose (80-110) mg/dL Calcium (8.4-10.2) mg/dL Total Bilirubin (0.2-1.3) mg/dL AST (14-36) IU/L ALT (<35) IU/L Alkaline Phosphatase (38-126) U/L Total Creatine Kinase (30-135) U/L CK-MB (CK-2) CK-MB (CK-2) Rel Index Troponin I < 0.012 (0.01-0.034) ng/mL NT-Pro-B Natriuret Pep (<125) pg/mL Total Protein (6.3-8.2) g/dL Albumin (3.5-5.0) g/dL Globulin (1.7-4.1) g/dL Albumin/Globulin Ratio (1.0-2.8) Lipase (23-300) U/L SARS-CoV-2 (PCR) (Negative) 12/05/20 12/05/20 12/05/20 Range/Units 06:05 09:57 09:57 WBC 6.6 (4.5-11.0) X10^3/uL RBC 3.86 L (4.0-5.2) X10^6/uL Hgb 10.6 L (12.0-16.0) g/dL Hct 32.3 L (36-46) % MCV 83.7 (80-100) fL MCH 27.5 (26-34) PG MCHC 32.8 (30-36) % RDW 15.9 H (11.6-14.8) % Plt Count 214 (150-400) X10^3/uL Neut % (Auto) 68.4 (50-75) % Lymph % (Auto) 21.1 L (25-40) % [place] % (Auto) 6.3 (3-14) % Eos % (Auto) 3.3 (2-4) % Baso % (Auto) 0.9 (0-2) % Neut # (Auto) 4500 (8724-0514) /uL Lymph # (Auto) 1400 (1257-1787) /uL [place] # (Auto) 400 (0-900) /uL Eos # (Auto) 200 (0-450) /uL Baso # (Auto) 100 (0-100) /uL APTT 81 H* D (26.4-36.2) SECONDS D-Dimer (<230) ng/mL Sodium 133 L (137-145) mmol/L Potassium 3.8 (3.4-5.1) mmol/L Chloride 106 (98-107) mmol/L Carbon Dioxide 23 (22-32) mmol/L BUN 15 (7-17) mg/dL Creatinine 0.75 (0.52-1.04) mg/dL Estimated GFR > 60.0 (>60) mL/min BUN/Creatinine Ratio 20.0 (6-22) Glucose 91 (80-110) mg/dL Calcium 9.3 (8.4-10.2) mg/dL Total Bilirubin (0.2-1.3) mg/dL AST (14-36) IU/L ALT (<35) IU/L Alkaline Phosphatase (38-126) U/L Total Creatine Kinase (30-135) U/L CK-MB (CK-2) CK-MB (CK-2) Rel Index Troponin I < 0.012 (0.01-0.034) ng/mL NT-Pro-B Natriuret Pep (<125) pg/mL Total Protein (6.3-8.2) g/dL Albumin (3.5-5.0) g/dL Globulin (1.7-4.1) g/dL Albumin/Globulin Ratio (1.0-2.8) Lipase (23-300) U/L SARS-CoV-2 (PCR) (Negative) MDM Narrative Medical decision making narrative: This is a 70-year-old female comes to the emergency department with complaint of chest pain pressure in nausea which I in the department is responsive to nitro. Patient had mildly elevated lipase and ultrasound shows stable changed to the pancreas but patient developed EKG changes which are concerning for cardiac nature. Ddimer is negative after age adjustment. lipase slightly high and US has changes noted on report that do not appear different as prior. Patient was placed on nitro drip, heparin was initiated. Discussed with Cardiology. Patient's initial [address] Ross from Cardiology at [facility] would like to transfer patient for cardiac catheterization urgently. She does not feel patient needs emergent catheterization ER to ER as this moment. There is little bed available the recently holding patient until there is bed available at outside hospital. Patient signed out to Dr. Castillo while pending transfer. Dr castillo: Patient has remained stable overnight. No further chest discomfort. Heparin has been maintained per protocol. She has received a couple doses of Tylenol secondary to headache and also Zofran for nausea. Care turned back over to Dr. Madrigal to continue to evaluate and disposition. Critical Care Time <Yina Madrigal, DO - Last Filed: 12/05/20 20:32> Critical Care Time Critical Care Time: Yes Attestation: The high probability of a clinically significant, sudden or life threatening deterioration of the [cardiac] system(s) required my full and direct attention, intervention and personal management. The aggregate critical care time was [65] minutes. This time is in addition to time spent performing reported procedures but includes the following: [x] Data Review and interpretation [x] Patient assessment and monitoring of vital signs [x] Documentation [x] Medication orders and management <Aaron Castillo, DO - Last Filed: 12/05/20 08:12> Critical Care Time Total Critical Care Time: 45 Attestation: The high probability of a clinically significant, sudden or life threatening deterioration of the [cardiac] system(s) required my full and direct attention, intervention and personal management. The aggregate critical care time was [45] minutes. This time is in addition to time spent performing reported procedures but includes the following: [x] Data Review and interpretation [x] Patient assessment and monitoring of vital signs [x] Documentation [x] Medication orders and management Discharge Plan Departure Patient Disposition: [facility] Clinical Impression: Unstable angina Prescriptions: No Action aspirin 81 MG tablet,delayed release (DR/EC) 81 mg PO QPM Qty: 0 RF: 0 miscellaneous medical supply Misc 1 each .ROUTE .COMPLEX Qty: 1 RF: 0 hydrochlorothiazide 50 mg tablet 50 mg PO DAILY Qty: 90 RF: 3 losartan 100 mg tablet 100 mg PO DAILY Qty: 90 RF: 3 pyridostigmine bromide 60 mg tablet 60 mg PO 6XD RF: 0 aripiprazole 20 mg tablet 10 mg PO QAM RF: 0 Referrals: Doris Schreiber ARNP [Primary Care Provider] -
--- NOTE | 2020-12-04 16:17 | DI.US.S_ITS ---
PROCEDURE: US ABDOMEN LIMITED INDICATIONS: epigastric/chest pain, hx pancreatitis. TECHNIQUE: Real-time scanning was performed of the abdominal and retroperitoneal organs, with image documentation. COMPARISON: [facility], CT, CT ABDOMEN PELVIS W CON, 01/15/2020, 11:57. [facility], CT, CT ABDOMEN PELVIS W CON, 10/21/2020, 8:19. [facility], US, US ABDOMEN LIMITED, 08/06/2020, 12:38. FINDINGS: Liver: Liver is normal in size and homogeneous in echotexture. Gallbladder: Status post cholecystectomy Biliary ducts: Intrahepatic bile ducts are non-dilated. Extrahepatic bile duct caliber measures 11 mm. Normal is 6-7 mm or less in diameter, or 10 mm or less post-cholecystectomy. Pancreas: There is a 0.6 x 0.7 x 0.7 cm ill-defined hypoechoic area near the pancreatic head. There is also a hypoechoic area within the pancreatic body measuring 1.4 x 0.8 x 1.4 cm. There is a previously described hypoechoic and hypodense region in the pancreatic head which may represent lesions described on prior imaging dating back to January 15, 2020. Remainder of the visualized portions of the pancreas are sonographically normal. Miscellaneous: No free abdominal fluid. IMPRESSION: 1. Normal sonographic evaluation of the liver. 2. Status post cholecystectomy. Mild prominence of the common bile duct likely related to post cholecystectomy physiologic dilatation. 3. Ill-defined hypoechoic lesions within the pancreas as described above likely representing cystic lesions. These have been described on prior imaging evaluation and appear to have been present dating back to December 2019. Recommend dedicated outpatient CT or MRI of the abdomen using pancreatic mass protocol. Dictated by: Jimbo Turk M.D. on 12/04/2020 at 18:00 Approved by: Jimbo Turk M.D. on 12/04/2020 at 18:09
[2020-12-04] MEDS: ASPIRIN 81 MG CHEW TAB 324 MG PO (16:30)
[2020-12-04] MEDS: NITROGLYCERIN 0.4 MG SL TAB SL ×3 (16:30→16:49)
[2020-12-04 16:50] LABS: NT-proBNP (BNP-Adult 18+) 51 pg/mL (<125)
[2020-12-04 16:53] LABS: Troponin I < 0.012 ng/mL (0.01-0.034)
[2020-12-04 17:02] LABS: COVID19 -Nasal RAPID Negative (Negative)
[2020-12-04] MEDS: HEPARIN 5,000 UNIT/ML VIAL 5000 UNIT IV (18:25)
[2020-12-04] MEDS: HEPARIN DRIP 25,000 UNIT/500 ML IV.SOLN 19.813 UNIT IV (18:26)
[2020-12-04] MEDS: NITROGLYCERIN 50 MG/250 ML INFUS..BTL IV (18:26)
[2020-12-04 18:58] LABS: PTT Partial Thromboplastin Tim 34 SECONDS (26.4-36.2)
[2020-12-04 19:04] LABS: D Dimer 290 ng/mL (<230)
[2020-12-04] MEDS: ACETAMINOPHEN 325 MG TABLET 650 MG PO (23:39)
[2020-12-04] MEDS: ONDANSETRON 4 MG ODT SL (23:50)
[2020-12-05] VITALS (58 sets, daily range): BP systolic 98–139; BP diastolic 54–67; PULSE 40–66; RESP 13–29; O2SAT 95–99
--- NOTE | 2020-12-05 01:16 | PC.NURSE ---
critical value 0117 ptt 148 notified
[2020-12-05 01:17] LABS: PTT Partial Thromboplastin Tim 148 SECONDS (26.4-36.2); Troponin I < 0.012 ng/mL (0.01-0.034)
--- NOTE | 2020-12-05 01:21 | PC.NURSE ---
Per protocol with a PTT of 148,heparin gtt is stopped at 0120 for one hour,DR Castillo notified.
--- NOTE | 2020-12-05 02:30 | PC.NURSE ---
Heparin gtt restarted at 17 ml per hour per prptocol.
[2020-12-05] MEDS: ONDANSETRON 4 MG/2 ML INJ IV (06:06)
[2020-12-05] MEDS: ACETAMINOPHEN 325 MG TABLET 650 MG PO ×2 (06:06→12:25)
[2020-12-05 06:53] LABS: PTT Partial Thromboplastin Tim 81 SECONDS (26.4-36.2)
--- NOTE | 2020-12-05 07:04 | PC.NURSE ---
heparin gtt decreased 1 ml per hour per ptt protocol,gtt now at 16 ml per hour.
--- NOTE | 2020-12-05 09:54 | DI.CT.S_ITS ---
PROCEDURE: CT ANGIO CHEST PE PROTOCOL INDICATIONS: chest pain TECHNIQUE: After the administration of intravenous contrast, 2 mm thick sections acquired from the pulmonary apices to the posterior costophrenic angles. 3-dimensional maximum intensity projection (MIP) coronal and sagittal reformats were then acquired through the thorax. For radiation dose reduction, the following was used: automated exposure control, adjustment of mA and/or kV according to patient size. COMPARISON: [facility], CT, CT CHEST W CON, 06/29/2020, 11:20. [facility], CR, XR CHEST 1V, 12/04/2020, 14:18. FINDINGS: Image quality: Excellent. Pulmonary arteries: Pulmonary arteries are normal in size, and demonstrate no intraluminal filling defects to suggest central pulmonary embolism. Lungs and pleura: Bilateral ground-glass opacity and areas of interlobular septal thickening. No consolidation. No pleural effusions or pneumothorax. Central and peripheral airways are patent. Mediastinum: Heart size is normal, without pericardial effusion. No mediastinal or hilar adenopathy. Thoracic aorta is normal in caliber and enhancement. Esophagus is normal in caliber, without hiatal hernia. Bones and chest wall: No suspicious bony lesions. Ribs and thoracic spine appear intact throughout. Thyroid gland is unremarkable. No axillary or supraclavicular adenopathy. Abdomen: Post cholecystectomy. Small right adrenal nodule is again seen. Left adrenal gland is outside the field of view. Visualized upper abdominal solid organs appear normal in the early arterial phase of enhancement. IMPRESSION: 1. No pulmonary embolism. 2. Bilateral ground-glass opacity and interlobular septal thickening. Suspect mild fluid overload/CHF. Infectious/inflammatory etiology could have a similar appearance. No consolidative opacity. 3. No pleural effusion. Dictated by: Michael Cormier M.D. on 12/05/2020 at 9:53 Approved by: Michael Cormier M.D. on 12/05/2020 at 10:04
[2020-12-05 10:06] LABS: Add Manual Diff / Slide Review NO; Basophils Absolute Auto 100 /uL (0-100); Basophils Percent Auto 0.9 % (0-2); Eosinophils Absolute Auto 200 /uL (0-450); Eosinophils Percent Auto 3.3 % (2-4); Hematocrit 32.3 % (36-46); Hemoglobin 10.6 g/dL (12.0-16.0); Lymphocytes Absolute Auto 1400 /uL (1100-4500); Lymphocytes Percent Auto 21.1 % (25-40); Mean Corpuscular HGB Conc 32.8 % (30-36); Mean Corpuscular Hemoglobin 27.5 PG (26-34); Mean Corpuscular Volume 83.7 fL (80-100); Monocytes Absolute Auto 400 /uL (0-900); Monocytes Percent Auto 6.3 % (3-14); Neutrophils Absolute Auto 4500 /uL (1500-7000); Neutrophils Percent Auto 68.4 % (50-75); Platelet Count 214 X10^3/uL (150-400); Red Blood Cell Count 3.86 X10^6/uL (4.0-5.2); Red Cell Distribution Width 15.9 % (11.6-14.8); White Blood Cell Count 6.6 X10^3/uL (4.5-11.0)
[2020-12-05] MEDS: LOSARTAN 50 MG TABLET 100 MG PO (10:12)
[2020-12-05] MEDS: ARIPiprazole 10 MG TABLET PO (10:12)
[2020-12-05] MEDS: ASPIRIN 81 MG CHEW TAB 324 MG PO (10:14)
[2020-12-05 10:20] LABS: Blood Urea Nitrogen 15 mg/dL (7-17); Calcium 9.3 mg/dL (8.4-10.2); Carbon Dioxide 23 mmol/L (22-32); Chloride 106 mmol/L (98-107); Estimated Glomerular Filt Rate > 60.0 mL/min (>60); Glucose 91 mg/dL (80-110); HEMOLYSIS < 15 (0-50); Potassium 3.8 mmol/L (3.4-5.1); Sodium 133 mmol/L (137-145)
[2020-12-05] MEDS: ATORVASTATIN 20 MG TABLET 80 MG PO (10:23)
[2020-12-05 10:32] LABS: Troponin I < 0.012 ng/mL (0.01-0.034)
--- NOTE | 2020-12-05 12:08 | PC.NURSE ---
reported that Heaprin was increased at 0700. Running at 16 cc/hour upon my arrival at 0900. MAR adjusted.
--- NOTE | 2020-12-05 13:30 | PC.NURSE ---
Heparin and ntg gtts continued w/ [facility]WA during transport. Discontinued for purposes of [facility] documentation only.
== END 2020-12-05 13:24 | disposition short-term general hospital (02) ==
PROVIDERS: Emergency Medicine; Emergency Provider Emergency Medicine; Family Provider Nurse Practitioner; PCP Nurse Practitioner
DX: I20.0 Unstable angina (principal); R07.9 Chest pain, unspecified; R06.02 Shortness of breath; R11.0 Nausea; R05 Cough; Z20.822 Contact with and (suspected) exposure to COVID-19
CPT/HCPCS: 36415; 71045; 71275; 76705; 80048; 80053; 82550; 83690; 83880; 84484; 85025; 85379; 85730; 87635; 93005; 96365; 96366; 96367; 96368; 96375; 99285; C9803; J1644; J2405; Q9967

== ENCOUNTER → 2020-12-10 11:08 | Outpatient (CLI) | payer MEDICARE, BC, SELFPAY ==
[2020-10-04 13:43] VITALS: BMI 33.3
[2020-12-10 13:04] LABS: COVID19 -Nasal RAPID Negative (Negative)
== END ==
PROVIDERS: Family Provider Nurse Practitioner; PCP Nurse Practitioner; Visit Provider Physician Assistant
DX: Z01.812 Encounter for preprocedural laboratory examination (principal); Z20.822 Contact with and (suspected) exposure to COVID-19
CPT/HCPCS: 87635; C9803

== ENCOUNTER 2020-12-12 13:55 | Day surgery (SDC) | payer MEDICARE, BC, SELFPAY ==
[2020-07-24 19:27] VITALS: BMI 33.3
[2020-10-04 13:43] VITALS: BMI 33.3
[2020-12-12 14:48] VITALS: BP 140/84; PULSE 78; RESP 18; TEMP 36.8; O2SAT 99; BMI 30.7
--- NOTE | 2020-12-12 15:03 | PM.HP.1 ---
History of Present Illness History of Present Illness Chief complaint: [facility] Narrative: Recurrent diverticulitis and need for colorectal cancer screening Patient History Medical History (Updated 12/12/20 @ 14:46 by Keena Nuñez RN) Abdominal pain Activity intolerance Acute pancreatitis Anemia Anosmia Atypical chest pain Cervical dystonia (1986) Chicken pox (1956) Cholecystectomy planned Chronic fatigue (08/07/15) Colon polyps Cough CTS (carpal tunnel syndrome) (1986) Denervation of muscle Depression (1974) Diastasis of rectus abdominis (08/07/15) Dyspnea Dyspnea Dyspnea on exertion Episodic lightheadedness Fatigue Gastritis Generalized abdominal pain (08/07/15) Headache History of unstable angina Hyperlipidemia Hypertension Itch of skin Measles (1957) Metallic taste (10/11/15) Mumps (1958) Myasthenia gravis Neoplasm of uncertain behavior of skin (10/11/15) NSAID induced gastritis Osteopenia after menopause Peripheral neuropathy (2012) Piriformis syndrome of right side Progressive neurological disorder Right hip pain Shortness of breath (08/27/15) Sjogren's syndrome (2012) Skin cancer (2015) Sleep apnea (2009) Small fiber polyneuropathy SOB (shortness of breath) (2010) Status post DANILO-BSO Visual disturbance Surgical History Anesthesia complication History of carpal tunnel repair (1989) History of cervical spinal surgery (07/2008) History of laparoscopic cholecystectomy (2006) S/P DANILO-BSO (total abdominal hysterectomy and bilateral salpingo-oophorectomy) (01/2007) Status post hernia repair (2013) Status post hernia repair (2007) Family & Social History Family History Brother Age: 63 Prostate cancer Heart disease Hypertension High cholesterol Heart attack Brother Age: 61 Hypertension Mental health problem Kidney transplant recipient Chronic kidney disease with end stage renal failure on dialysis Father Colon cancer Heart disease Mental health problem Heart failure Grandfather Heart disease Hypertension Brain aneurysm Mother Cancer Hypertension NHL (non-Hodgkin's lymphoma) Grandmother Stroke Sister Age: 69 Celiac disease High cholesterol Mental health problem Thyroid disorder Sister Age: 65 Psoriatic arthritis Thyroid disorder Grandmother Alzheimer's disease Grandfather Colon cancer Sister Breast cancer Sister Suicide Brother No problems noted. Sister Thyroid disorder Social History: household members spouse Tobacco & Substance use: Smoking Status Never smoker alcohol intake never alcohol intake frequency holiday/special occasion Substance Use Type does not use Meds Home Medications and Allergies Home Medications Medication Instructions Recorded Confirmed Type aspirin 81 mg tablet,delayed 81 mg PO QPM #0 01/25/17 12/12/20 History release miscellaneous medical supply 1 each .ROUTE .COMPLEX #1 each 08/23/19 12/12/20 Rx pyridostigmine bromide 60 mg tablet 60 mg PO 6XD tab 08/09/20 12/12/20 History hydrochlorothiazide 50 mg tablet 50 mg PO DAILY #90 tab 11/13/20 12/12/20 Rx losartan 100 mg tablet 100 mg PO DAILY #90 tab 11/13/20 12/12/20 Rx aripiprazole 20 mg tablet 10 mg PO QAM 12/05/20 12/12/20 History Allergies Allergy/AdvReac Type Severity Reaction Status Date / Time cimetidine [From TAGAMET] Allergy Mild hallucinati Verified 12/04/20 21:33 ons codeine [CODEINE] Allergy Mild hallucinati Verified 12/04/20 21:33 ons lisinopril [LISINOPRIL] Allergy Mild cough/GI Verified 12/04/20 21:33 issues ranitidine [From ZANTAC] Allergy Mild hallucinati Verified 12/04/20 21:33 ons prednisone Allergy Unknown Verified 12/12/20 14:42 ciprofloxacin AdvReac Severe Weakness Verified 12/04/20 21:33 Exam Vital Signs (past 8 hours): - 12/12/20 14:48 Temperature 98.2 F Pulse Rate 78 Respiratory Rate 18 Blood Pressure 140/84 Pulse Oximetry 99 Oxygen Delivery Method Room Air Oxygen Flow Rate 0 Narrative Exam Narrative: Oropharynx free of lesions Chest clear to auscultation percussion Cardiac exam reveals no S3 or murmur Assessment & Plan Assessment & Plan narrative: History of recurring diverticulitis and need for colorectal cancer screening. Risks, benefits, alternatives have been explained. Colonoscopy to be performed
--- NOTE | 2020-12-12 15:05 | PM.OP.ENDO ---
Procedure & Clinicians Study performed: Colonoscopy Indications: Recurrent diverticulitis and need for colorectal cancer screening Surgeon: Seble Wood Procedure Notes Procedure in detail: After informed consent was obtained the patient was placed in left lateral decubitus position. Video colonoscope was introduced the rectum slowly advanced cecum. On slow withdrawal mucosa was carefully examined. The scope was removed. The patient tolerated procedure well. Blood loss none Complications none Sedation Total sedation time 14 minutes Versed 5 mg fentanyl 100 mg IV titration Findings 1. Scattered small diverticula in the sigmoid colon 2. Otherwise negative colonoscopy to cecum With her history of adenomatous colon polyps but with 2- colonoscopies in a row at a 10 year interval 1 might consider follow-up colonoscopy in 10 years
[2020-12-12] MEDS: SODIUM CHLORIDE 0.9% 1,000 ML 84 ML IV (15:09)
[2020-12-12] MEDS: MIDAZOLAM 5 MG/5 ML VIAL IV (15:28)
[2020-12-12] MEDS: fentaNYL 250 MCG/5 ML INJ IV (15:28)
[2020-12-12 15:39] VITALS: BP 110/73; PULSE 86; RESP 16; TEMP 37.1; O2SAT 97
[2020-12-12 15:44] VITALS: BP 139/88; PULSE 70; RESP 12; O2SAT 96
[2020-12-12 16:20] VITALS: BP 131/81; PULSE 66; RESP 16; TEMP 36.3; O2SAT 97
== END 2020-12-12 16:40 | disposition home or self-care (01) ==
PROVIDERS: PCP Nurse Practitioner; Referring Provider Student in an Organized Health Care Education/Training Program; Visit Provider Internal Medicine Gastroenterology
PROC: 0DJD8ZZ Inspection of Lower Intestinal Tract, Via Natural or Artificial Opening Endoscopic (ICD-10-PCS; CPT 45378; principal; 2020-12-12 15:30)
DX: Z12.11 Encounter for screening for malignant neoplasm of colon (principal); Z87.19 Personal history of other diseases of the digestive system; K57.30 Diverticulosis of large intestine without perforation or abscess without bleeding; Z86.010 Personal history of colon polyps
CPT/HCPCS: G0105; J2250; J3010

== ENCOUNTER → 2021-01-11 11:16 | Outpatient (CLI) | payer MEDICARE, BC, SELFPAY ==
[2020-10-04 13:43] VITALS: BMI 33.3
[2021-01-11 12:00] LABS: Add Manual Diff / Slide Review NO; Basophils Absolute Auto 100 /uL (0-100); Basophils Percent Auto 1.2 % (0-2); Eosinophils Absolute Auto 100 /uL (0-450); Eosinophils Percent Auto 2.3 % (2-4); Hematocrit 39.1 % (36-46); Hemoglobin 12.4 g/dL (12.0-16.0); Lymphocytes Absolute Auto 1300 /uL (1100-4500); Lymphocytes Percent Auto 21.7 % (25-40); Mean Corpuscular HGB Conc 31.8 % (30-36); Mean Corpuscular Volume 85.2 fL (80-100); Monocytes Absolute Auto 400 /uL (0-900); Monocytes Percent Auto 6.3 % (3-14); Neutrophils Absolute Auto 4300 /uL (1500-7000); Neutrophils Percent Auto 68.5 % (50-75); Platelet Count 243 X10^3/uL (150-400); Red Blood Cell Count 4.58 X10^6/uL (4.0-5.2); Red Cell Distribution Width 16.7 % (11.6-14.8); White Blood Cell Count 6.2 X10^3/uL (4.5-11.0)
[2021-01-11 12:19] LABS: Alanine Aminotransferase 31 IU/L (<35); Albumin 4.7 g/dL (3.5-5.0); Albumin Globulin Ratio 1.6 (1.0-2.8); Alkaline Phosphatase 125 U/L (38-126); Aspartate Aminotransferase 33 IU/L (14-36); BUN Creatinine Ratio 16.9 (6-22); Bilirubin Total 0.7 mg/dL (0.2-1.3); Blood Urea Nitrogen 12 mg/dL (7-17); Calcium 10.6 mg/dL (8.4-10.2); Carbon Dioxide 26 mmol/L (22-32); Chloride 103 mmol/L (98-107); Estimated Glomerular Filt Rate > 60.0 mL/min (>60); Glucose 105 mg/dL (80-110); HEMOLYSIS < 15 (0-50); Sodium 137 mmol/L (137-145); Total Protein 7.7 g/dL (6.3-8.2)
[2021-01-11 12:22] LABS: High Sensitivity CRP - Cardiac 1.8 mg/L (1.0-3.0)
[2021-01-11 12:32] LABS: Erythrocyte Sedimentation Rate 14 MM/HR (0-20)
[2021-01-11 12:48] LABS: Thyroid Stimulating Hormone 1.17 uIU/mL (0.47-4.68)
[2021-01-12 00:29] LABS: Rheumatoid Factor < 8.6 IU/mL (<12.0)
[2021-01-13 17:37] LABS: SS A Ro Sjogrens Antibody 0.2 AI (0.0-0.9); SS B La Sjogrens Antibody < 0.2 AI (0.0-0.9)
[2021-01-16 15:08] LABS: ANA Screen, IFA Negative (.)
== END ==
PROVIDERS: PCP Nurse Practitioner; Referring Provider Ophthalmology; Visit Provider Ophthalmology
DX: M35.00 Sjogren syndrome, unspecified (principal)
CPT/HCPCS: 36415; 80053; 84443; 84550; 85025; 85651; 86038; 86140; 86235; 86430

== ENCOUNTER → 2021-02-15 10:14 | Outpatient (CLI) | payer MEDICARE, BC, SELFPAY ==
[2020-10-04 13:43] VITALS: BMI 33.3
[2021-02-15 11:18] LABS: NT-proBNP (BNP-Adult 18+) 28 pg/mL (<125)
== END ==
PROVIDERS: PCP Nurse Practitioner; Referring Provider Internal Medicine Cardiovascular Disease; Visit Provider Internal Medicine Cardiovascular Disease
DX: I50.32 Chronic diastolic (congestive) heart failure (principal)
CPT/HCPCS: 36415; 83880

== ENCOUNTER → 2021-02-25 07:06 | Outpatient (CLI) | payer MEDICARE, BC, SELFPAY ==
[2020-10-04 13:43] VITALS: BMI 33.3
[2021-02-25 09:07] LABS: BUN Creatinine Ratio 16.9 (6-22); Blood Urea Nitrogen 15 mg/dL (7-17); Calcium 10.1 mg/dL (8.4-10.2); Carbon Dioxide 27 mmol/L (22-32); Chloride 103 mmol/L (98-107); Estimated Glomerular Filt Rate > 60.0 mL/min (>60); Glucose 96 mg/dL (80-110); HEMOLYSIS < 15 (0-50); Potassium 4.8 mmol/L (3.4-5.1); Sodium 138 mmol/L (137-145)
== END ==
PROVIDERS: PCP Nurse Practitioner; Referring Provider Internal Medicine Cardiovascular Disease; Visit Provider Internal Medicine Cardiovascular Disease
DX: I50.32 Chronic diastolic (congestive) heart failure (principal)
CPT/HCPCS: 36415; 80048

== ENCOUNTER → 2021-02-28 14:43 | Outpatient (CLI) | payer MEDICARE, BC, SELFPAY ==
[2020-10-04 13:43] VITALS: BMI 33.3
--- NOTE | 2021-02-28 | DI.ECHO.S_ITS ---
[facility] +---------+ : : [address] : [place] : : : : [id number] : : : : Phone: [phone]+ Echocardiogram Report + + :Name: BRIAN RODRIGUEZ Study Date: 02/28/2021 Height: 64 in : :[facility] ReadingLocation: Weight: 181 lb : : Gender: Female BSA: 1.9 m2 : :: 1950 Age: 70 yrs BP: 143/83 mmHg: :Reason For Study: Congestive Heart Failure : :Ordering Physician: Demetrice : :Traci Angela Performed By: Jaskaran Diaz : :Referring: DEMETRICE ANGELA : + + Interpretation Summary The left ventricle is normal in size and wall thickness. Left ventricular systolic function is normal. The ejection fraction is estimated to be 60-65%. There are no focal wall motion abnormalities. Diastolic parameters suggest a relaxation abnormality of the left ventricle, consistent with probable normal filling pressures. The right ventricle is normal in size and function. Pulmonary artery pressures cannot be estimated because of the lack of a measurable TR jet velocity but the IVC suggests a CVP of around 3 mmHg. Both atria are normal in size. There is no significant valvular heart disease. The aortic root is normal size. Procedure: A two-dimensional transthoracic echocardiogram with color flow and Doppler was performed. The study quality was technically difficult. Comparison is made with the echocardiogram of 01/07/2016. Left Ventricle: The left ventricle is normal in size and wall thickness. Left ventricular systolic function is normal. The ejection fraction is estimated to be 60-65%. There are no focal wall motion abnormalities. Diastolic parameters suggest a relaxation abnormality of the left ventricle, consistent with probable normal filling pressures. Right Ventricle: The right ventricle is normal in size and function. Atria: Both atria are normal in size. There is no Doppler evidence for an interatrial shunt. Mitral Valve: The mitral valve is normal in structure and function. There is no mitral regurgitation noted. Aortic Valve: The aortic valve is normal in structure and function. There is trace aortic regurgitation. Tricuspid Valve: The tricuspid valve is normal in structure and function. There is a trace or physiologic amount of tricuspid regurgitation. Pulmonary artery pressures cannot be estimated because of the lack of a measurable TR jet velocity but the IVC suggests a CVP of around 3 mmHg. Pulmonic Valve: The pulmonic valve is normal in structure and function. There is no pulmonic valvular regurgitation. There is no significant valvular heart disease. Great Vessels: The aortic root is normal size. The ascending aorta could not be visualized. The IVC is of normal diameter and collapses greater than 50% with a sniff. This suggests a low right atrial pressure of 3 mm Hg. Pericardium/ Pleura There is no pericardial effusion. There is no pleural effusion. MMode/2D Measurements & Calculations LVIDd: 4.7 cm LVOT diam: 2.2 cm LVIDs: 3.0 cm Ao root diam: 3.7 cm FS: 36.2 % IVSd: 1.0 cm LVPWd: 1.0 cm LV bonilla. diameter/BSA (cm/m^2): 2.5 LV sys. diameter/BSA (cm/m^2): 1.6 LA dimension: 3.2 cm RA long axis: 3.7 cm LA A2 area: 10.6 cm2 LA A4 area: 9.9 cm2 LA length (vol): 4.6 cm LA vol: 19.4 ml LA vol index: 10.4 ml/m2 TAPSE_phl: 2.2 cm Doppler Measurements & Calculations Ao V2 max: 131.0 cm/sec LVOT Max Armen: 119.0 cm/sec Ao V2 mean: 88.6 cm/sec LV V1 max P.7 mmHg Ao max P.0 mmHg LV V1 VTI: 19.9 cm Ao mean P.0 mmHg ELSY(I,D): 3.5 cm2 Ao V2 VTI: 21.4 cm ELSY(V,D): 3.5 cm2 sev ratio: 0.93 ELSY indexed to BSA (cm^2/m^2): 1.9 MV E max armen: 42.7 cm/sec SV(LVOT): 75.6 ml MV A max armen: 82.0 cm/sec MV E/A: 0.52 Med Peak E' Armen: 7.4 cm/sec E/E' med: 5.8 Lat Peak E' Armen: 6.4 cm/sec E/E' lat: 6.7 E/e' average: 6.3 MV dec time: 0.33 sec AV VR_phl: 0.91 MV P1/2t-pr_phl: 97.0 msec ELSY(VTI)/BSA_phl: 1.9 Reading Physician:04:04 PM
== END ==
PROVIDERS: PCP Nurse Practitioner; Referring Provider Internal Medicine Cardiovascular Disease; Visit Provider Internal Medicine Cardiovascular Disease
DX: I50.32 Chronic diastolic (congestive) heart failure (principal)
CPT/HCPCS: 93306

== ENCOUNTER 2021-03-18 13:27 | Emergency (ER) | payer MEDICARE, BC, SELFPAY ==
[2020-10-04 13:43] VITALS: BMI 33.3
[2021-03-18] VITALS (11 sets, daily range): BP systolic 112–142; BP diastolic 67–77; PULSE 69–80; RESP 11–25; TEMP 36.6; O2SAT 89–97
--- NOTE | 2021-03-18 14:19 | DI.RAD.S_ITS ---
PROCEDURE: XR CHEST 2V INDICATIONS: chest pain TECHNIQUE: 2 views of the chest were acquired. COMPARISON: [facility], CR, XR CHEST 1V, 12/04/2020, 14:18. FINDINGS: Surgical changes and devices: None. Lungs and pleura: Lungs are mildly hyperinflated but clear. No pleural effusions or pneumothorax. Mediastinum: Mediastinal contours are normal. Heart size is normal. Bones and chest wall: No suspicious bony abnormalities. Soft tissues appear unremarkable. IMPRESSION: No acute cardiopulmonary disease. Dictated by: Hiral Galloway M.D. on 03/18/2021 at 15:48 Approved by: Hiral Galloway M.D. on 03/18/2021 at 15:49
[2021-03-18 14:38] LABS: Add Manual Diff / Slide Review NO; Basophils Absolute Auto 100 /uL (0-100); Eosinophils Absolute Auto 200 /uL (0-450); Eosinophils Percent Auto 2.7 % (2-4); Hematocrit 37.4 % (36-46); Hemoglobin 12.3 g/dL (12.0-16.0); Lymphocytes Absolute Auto 1900 /uL (1100-4500); Mean Corpuscular HGB Conc 32.9 % (30-36); Mean Corpuscular Hemoglobin 28.6 PG (26-34); Monocytes Absolute Auto 400 /uL (0-900); Neutrophils Absolute Auto 3600 /uL (1500-7000); Neutrophils Percent Auto 58.3 % (50-75); Platelet Count 236 X10^3/uL (150-400); Red Cell Distribution Width 15.4 % (11.6-14.8); White Blood Cell Count 6.2 X10^3/uL (4.5-11.0)
--- NOTE | 2021-03-18 14:47 | ED_ITS ---
HPI - Chest Pain <Kenney Honeycutt PA-C - Last Filed: 03/18/21 19:42> General Chief Complaint: Chest Pain Stated Complaint: Angina Time Seen by Provider: 03/18/21 14:08 Source: patient Mode of arrival: Ambulatory History of Present Illness HPI narrative: 70-year-old female with a history of CAD, diastolic heart failure with preserved ejection fraction, essential hypertension, Sjogren syndrome, hyperlipidemia presents to the ED with 1 day of chest pain, shortness of breath. Patient experience some chest pain this morning, along with shortness of breath, took 2 pills of nitroglycerin with some relief, rested. An hour and a half later, patient experience chest pain again for which she took 1 nitroglycerin. Patient called her PCP, who sent her to the ED for further evaluation. Patient was seen in the ED here in November 2020 for chest pain following which she underwent a cardiac workup which showed diastolic heart failure with preserved ejection fraction. Patient states that she is short of breath at baseline, but today felt the shortness of breath was worsening. Patient denies any history of DVT/PE. Patient is not on blood thinners. Patient takes aspirin daily. Patient also endorses lightheadedness, nausea. Patient denies fever, chills, cough, vomiting, abdominal pain, syncope. Related Data Home Medications Medication Instructions Recorded Confirmed aspirin 81 mg tablet,delayed 81 mg PO QPM #0 01/25/17 03/01/21 release aripiprazole 20 mg tablet 10 mg PO QAM 12/05/20 03/01/21 nitroglycerin 0.4 mg sublingual 0.4 mg SUBLINGUAL Q5-15M PRN 12/17/20 03/01/21 tablet alpha lipoic acid 600 mg capsule 600 mg PO DAILY 03/01/21 03/01/21 isosorbide mononitrate 30 mg 30 mg PO QAM 03/01/21 03/01/21 tablet,extended release 24 hr omega 3 690 mg PO DAILY 03/01/21 03/01/21 spironolactone 25 mg tablet 25 mg PO DAILY 03/01/21 03/01/21 torsemide 10 mg tablet 10 mg PO DAILY 03/01/21 03/01/21 Previous Rx's Medication Instructions Recorded miscellaneous medical supply 1 each .ROUTE .COMPLEX #1 each 08/23/19 losartan 100 mg tablet 100 mg PO DAILY #90 tab 11/13/20 Allergies Allergy/AdvReac Type Severity Reaction Status Date / Time cimetidine [From TAGAMET] Allergy Mild hallucinati Verified 12/04/20 21:33 ons codeine [CODEINE] Allergy Mild hallucinati Verified 12/04/20 21:33 ons lisinopril [LISINOPRIL] Allergy Mild cough/GI Verified 12/04/20 21:33 issues ranitidine [From ZANTAC] Allergy Mild hallucinati Verified 12/04/20 21:33 ons prednisone Allergy Unknown Verified 12/12/20 14:42 ciprofloxacin AdvReac Severe Weakness Verified 12/04/20 21:33 atorvastatin [From Lipitor] AdvReac Intermediate Muscle Verified 03/01/21 14:50 aches and pains Review of Systems <Kenney Honeycutt PA-C - Last Filed: 03/18/21 19:42> Constitutional Constitutional: Denies chills, Denies fatigue, Denies fever(s), Denies frequent falls, Denies lethargy and Denies weakness Eyes Eyes: Denies change in vision, Denies eye discharge, Denies irritation and Denies loss of vision ENT Ears, Nose, Mouth, and Throat: Denies change in voice, Denies dizziness, Denies neck pain, Denies sore throat and Denies throat swelling Cardiovascular Cardiovascular: Reports chest pain, Denies irregular heart rhythm, Reports lightheadedness, Denies palpitations, Reports dyspnea, Reports dyspnea on exertion and Denies orthopnea Respiratory Respiratory: Denies cough, Reports dyspnea, Reports dyspnea on exertion and Denies wheezing Gastrointestinal Gastrointestinal: Denies abdominal pain, Denies change in bowel habits, Denies diarrhea, Reports nausea and Denies vomiting Musculoskeletal Musculoskeletal: Denies neck pain and Denies numbness Integumentary/Breasts Skin/Breast: Denies pruritus, Denies erythema, Denies rash and Denies wounds Neurologic Neurologic: Denies behavioral changes, Denies confusion, Denies dizziness, Denies frequent falls, Denies loss of vision, Denies numbness and Denies weakness Psychiatric Psychiatric: Denies anxiety, Denies behavioral changes, Denies confusion, Denies depression, Denies homicidal ideation and Denies suicidal ideation Endocrine Endocrine: Denies fatigue, Denies flushing and Denies palpitations Hematologic/Lymphatic Hematologic/Lymphatic: Denies easy bruising Allergic/Immunologic Allergic/Immunologic: Denies urticaria, Denies throat swelling and Denies wheezing Patient History <Kenney Honeycutt PA-C - Last Filed: 03/18/21 19:42> Medical History Abdominal pain Activity intolerance Acute pancreatitis Anemia Anosmia Atypical chest pain Cervical dystonia (1986) Chicken pox (1956) Cholecystectomy planned Chronic fatigue (08/07/15) Colon polyps Coronary artery disease Cough CTS (carpal tunnel syndrome) (1986) Denervation of muscle Depression (1974) Diastasis of rectus abdominis (08/07/15) Diastolic heart failure Dyspnea Dyspnea Dyspnea on exertion Episodic lightheadedness Fatigue Gastritis Generalized abdominal pain (08/07/15) Headache History of unstable angina Hyperlipidemia Hypertension Itch of skin Measles (1957) Metallic taste (10/11/15) Mumps (1958) Myasthenia gravis Neoplasm of uncertain behavior of skin (10/11/15) NSAID induced gastritis Osteopenia after menopause Osteoporosis Peripheral neuropathy (2012) Piriformis syndrome of right side Progressive neurological disorder Right hip pain Shortness of breath (08/27/15) Sjogren's syndrome (2012) Skin cancer (2015) Sleep apnea (2009) Small fiber polyneuropathy SOB (shortness of breath) (2010) Status post DANILO-BSO Visual disturbance Surgical History Anesthesia complication History of carpal tunnel repair (1989) History of cervical spinal surgery (07/2008) History of laparoscopic cholecystectomy (2006) S/P DANILO-BSO (total abdominal hysterectomy and bilateral salpingo-oophorectomy) (01/2007) Status post hernia repair (2013) Status post hernia repair (2007) Family History Brother Age: 64 Prostate cancer Heart disease Hypertension High cholesterol Heart attack Brother Age: 62 Hypertension Mental health problem Kidney transplant recipient Chronic kidney disease with end stage renal failure on dialysis Father Colon cancer Heart disease Mental health problem Heart failure Grandfather Heart disease Hypertension Brain aneurysm Mother Cancer Hypertension NHL (non-Hodgkin's lymphoma) Grandmother Stroke Sister Age: 70 Celiac disease High cholesterol Mental health problem Thyroid disorder Sister Age: 66 Psoriatic arthritis Thyroid disorder Grandmother Alzheimer's disease Grandfather Colon cancer Sister Breast cancer Sister Suicide Brother No problems noted. Sister Thyroid disorder Social History marital status: household members: spouse occupational status: previously employed Smoking Status: Never smoker alcohol intake: never substance use type: does not use Smoking Status: Never smoker alcohol intake frequency: holidays/special occasions only Substance Use Type: does not use Exam <Kenney Honeycutt PA-C - Last Filed: 03/18/21 19:42> Initial Vital Signs Initial Vital Signs: Vital Signs Temperature 97.9 F 03/18/21 13:36 Pulse Rate 73 03/18/21 13:36 Respiratory Rate 22 03/18/21 13:36 Blood Pressure 142/77 H 03/18/21 13:36 Pulse Oximetry 95 03/18/21 13:36 Const General: cooperative HENMT Head: normocephalic and atraumatic Ears: external ears normal and TM's normal bilaterally Nose: external nose normal and No nasal discharge Face and sinus: sinuses nontender, face symmetric, no sinus tenderness and No dry mucous membranes Mouth: oral mucosae normal and moist mucous membranes Teeth and gingiva: dentition normal Throat: tonsils normal and uvula midline Eyes General: appearance normal, both eyes and all related structures Eyelids: eyelids normal Conjunctivae: conjunctivae normal Sclera: sclerae normal Pupils: PERRL EOM: EOM intact bilaterally Neck Neck: normal visual inspection, trachea midline, No lymphadenopathy, No midline deformity and No JVD Lymphatic: No lymphedema Chest Chest: normal inspection of the chest Resp Effort & Inspection: normal respiratory effort, able to speak in complete sentences, no respiratory distress and no use of accessory muscles Auscultation: clear to auscultation bilaterally, no rales, no rhonchi and no wheezes Cardio Rate: regular rate Rhythm: regular rhythm Heart Sounds: no click, no gallops, no murmurs and no rubs Pulses: normal peripheral pulses GI Inspection: non-distended Palpation: soft, no hepatosplenomegaly, No guarding, No pulsatile mass and No tender Auscultation: normal bowel sounds Back/Spine/Pelvis Back: No CVA tenderness Cervical Spine: cervical ROM normal and No pain with cervical ROM Thoracic/Lumbar Spine: thoracic and lumbar spine normal to inspection Skin General: no rashes or lesions noted, No jaundice and No petechiae Neuro General: patient alert, patient oriented x3, gait normal and no focal motor de ficits Speech: speech normal Extrem General: full ROM, no clubbing, cyanosis or edema, no pedal edema and no calf tenderness Psych Appearance: well kempt Mental Status: mental status grossly normal Attitude: cooperative Thought Content: normal and suicidality Judgment: judgment good <Yadira Ram DO - Last Filed: 03/22/21 09:24> Initial Vital Signs Initial Vital Signs: Vital Signs Temperature 97.9 F 03/18/21 13:36 Pulse Rate 73 03/18/21 13:36 Respiratory Rate 22 03/18/21 13:36 Blood Pressure 142/77 H 03/18/21 13:36 Pulse Oximetry 95 03/18/21 13:36 Course <Kenney Honeycutt PA-C - Last Filed: 03/18/21 19:42> Course Course Narrative: Chest x-ray without acute findings. D-dimer elevated to 474, which is above age adjusted cutoff of 350. Will CT PE. Repeat trop at 17:25. CT PE negative for acute findings. Repeat trope within normal limits. Will discharge home with endoscopy nurse follow-up and ED return precautions. Orders Ordered: ED Orders 03/18/21 14:19 XR chest 2V Stat 03/18/21 14:25 Complete Blood Count AUTO DIFF Stat Comprehensive Metabolic Panel Stat D Dimer Stat NT-proBNP (BNP-Adult 18+) Stat Troponin I Stat 03/18/21 14:28 COVID19 - ADMIT (IV THERAPY NURSE swab/PCR) Stat 03/18/21 15:44 CT angio chest PE protocol Stat 03/18/21 17:25 Troponin I Stat Vital Signs Vital signs: Vital Signs - 8 hr 03/18/21 13:36 03/18/21 14:47 03/18/21 15:09 Temperature 97.9 F Pulse Rate 73 69 71 Respiratory Rate 22 11 L Blood Pressure 142/77 H Blood Pressure [Left Arm] Pulse Oximetry 95 95 89 L 03/18/21 15:12 03/18/21 15:13 03/18/21 15:30 Temperature Pulse Rate 73 71 80 Respiratory Rate 16 21 17 Blood Pressure 117/67 Blood Pressure [Left Arm] Pulse Oximetry 96 96 97 03/18/21 16:00 03/18/21 16:30 03/18/21 17:00 Temperature Pulse Rate 75 74 78 Respiratory Rate 20 17 24 Blood Pressure 117/67 Blood Pressure [Left Arm] Pulse Oximetry 95 95 93 03/18/21 17:10 03/18/21 18:08 Temperature Pulse Rate 77 80 Respiratory Rate 25 H 16 Blood Pressure 125/67 Blood Pressure [Left Arm] 112/68 Pulse Oximetry 93 95 <Yadira Ram DO - Last Filed: 03/22/21 09:24> Orders Ordered: ED Orders 03/18/21 14:19 XR chest 2V Stat 03/18/21 14:25 Complete Blood Count AUTO DIFF Stat Comprehensive Metabolic Panel Stat D Dimer Stat NT-proBNP (BNP-Adult 18+) Stat Troponin I Stat 03/18/21 14:28 COVID19 - ADMIT (IV THERAPY NURSE swab/PCR) Stat 03/18/21 15:44 CT angio chest PE protocol Stat 03/18/21 17:25 Troponin I Stat Vital Signs Vital signs: Vital Signs - 8 hr 03/18/21 13:36 03/18/21 14:47 03/18/21 15:09 Temperature 97.9 F Pulse Rate 73 69 71 Respiratory Rate 22 11 L Blood Pressure 142/77 H Blood Pressure [Left Arm] Pulse Oximetry 95 95 89 L 03/18/21 15:12 03/18/21 15:13 03/18/21 15:30 Temperature Pulse Rate 73 71 80 Respiratory Rate 16 21 17 Blood Pressure 117/67 Blood Pressure [Left Arm] Pulse Oximetry 96 96 97 03/18/21 16:00 03/18/21 16:30 03/18/21 17:00 Temperature Pulse Rate 75 74 78 Respiratory Rate 20 17 24 Blood Pressure 117/67 Blood Pressure [Left Arm] Pulse Oximetry 95 95 93 03/18/21 17:10 03/18/21 18:08 Temperature Pulse Rate 77 80 Respiratory Rate 25 H 16 Blood Pressure 125/67 Blood Pressure [Left Arm] 112/68 Pulse Oximetry 93 95 MDM - Chest Pain <Kenney Honeycutt PA-C - Last Filed: 03/18/21 19:42> Lab Data Lab results narrative: D-dimer 474. COVID negative. Troponin negative Result diagrams: 03/18/21 14:25 03/18/21 14:25 Labs: Lab Results 03/18/21 03/18/21 03/18/21 Range/Units 14:25 14:25 14:25 WBC 6.2 (4.5-11.0) X10^3/uL RBC 4.30 (4.0-5.2) X10^6/uL Hgb 12.3 (12.0-16.0) g/dL Hct 37.4 (36-46) % MCV 87.0 (80-100) fL MCH 28.6 (26-34) PG MCHC 32.9 (30-36) % RDW 15.4 H (11.6-14.8) % Plt Count 236 (150-400) X10^3/uL Neut % (Auto) 58.3 (50-75) % Lymph % (Auto) 31.0 (25-40) % [place] % (Auto) 7.0 (3-14) % Eos % (Auto) 2.7 (2-4) % Baso % (Auto) 1.0 (0-2) % Neut # (Auto) 3600 (6987-0652) /uL Lymph # (Auto) 1900 (9342-8627) /uL [place] # (Auto) 400 (0-900) /uL Eos # (Auto) 200 (0-450) /uL Baso # (Auto) 100 (0-100) /uL D-Dimer 474 H (<230) ng/mL Sodium 141 (137-145) mmol/L Potassium 3.7 (3.4-5.1) mmol/L Chloride 105 (98-107) mmol/L Carbon Dioxide 25 (22-32) mmol/L BUN 9 (7-17) mg/dL Creatinine 0.92 (0.52-1.04) mg/dL Estimated GFR > 60.0 (>60) mL/min BUN/Creatinine Ratio 9.8 (6-22) Glucose 97 (80-110) mg/dL Calcium 9.5 (8.4-10.2) mg/dL Total Bilirubin 0.3 (0.2-1.3) mg/dL AST 24 (14-36) IU/L ALT 22 (<35) IU/L Alkaline Phosphatase 107 (38-126) U/L Troponin I < 0.012 (0.01-0.034) ng/mL NT-Pro-B Natriuret Pep 20 (<125) pg/mL Total Protein 7.0 (6.3-8.2) g/dL Albumin 4.5 (3.5-5.0) g/dL Globulin 2.5 (1.7-4.1) g/dL Albumin/Globulin Ratio 1.8 (1.0-2.8) SARS-CoV-2 (PCR) (Negative) 03/18/21 03/18/21 Range/Units 14:28 17:25 WBC (4.5-11.0) X10^3/uL RBC (4.0-5.2) X10^6/uL Hgb (12.0-16.0) g/dL Hct (36-46) % MCV (80-100) fL MCH (26-34) PG MCHC (30-36) % RDW (11.6-14.8) % Plt Count (150-400) X10^3/uL Neut % (Auto) (50-75) % Lymph % (Auto) (25-40) % [place] % (Auto) (3-14) % Eos % (Auto) (2-4) % Baso % (Auto) (0-2) % Neut # (Auto) (9244-6682) /uL Lymph # (Auto) (6669-3057) /uL [place] # (Auto) (0-900) /uL Eos # (Auto) (0-450) /uL Baso # (Auto) (0-100) /uL D-Dimer (<230) ng/mL Sodium (137-145) mmol/L Potassium (3.4-5.1) mmol/L Chloride (98-107) mmol/L Carbon Dioxide (22-32) mmol/L BUN (7-17) mg/dL Creatinine (0.52-1.04) mg/dL Estimated GFR (>60) mL/min BUN/Creatinine Ratio (6-22) Glucose (80-110) mg/dL Calcium (8.4-10.2) mg/dL Total Bilirubin (0.2-1.3) mg/dL AST (14-36) IU/L ALT (<35) IU/L Alkaline Phosphatase (38-126) U/L Troponin I < 0.012 (0.01-0.034) ng/mL NT-Pro-B Natriuret Pep (<125) pg/mL Total Protein (6.3-8.2) g/dL Albumin (3.5-5.0) g/dL Globulin (1.7-4.1) g/dL Albumin/Globulin Ratio (1.0-2.8) SARS-CoV-2 (PCR) Negative (Negative) Imaging Data Chest x-ray: Radiologist's Impression: PROCEDURE:? XR CHEST 2V ? INDICATIONS:? chest pain ? TECHNIQUE:? 2 views of the chest were acquired.? ? COMPARISON:? [facility], CR, XR CHEST 1V, 12/04/2020, 14:18. ? FINDINGS:? ? Surgical changes and devices:? None.? ? Lungs and pleura:? Lungs are mildly hyperinflated but clear.? No pleural effusions or pneumothorax.? ? Mediastinum:? Mediastinal contours are normal.? Heart size is normal.? ? Bones and chest wall:? No suspicious bony abnormalities.? Soft tissues appear unremarkable.? ? IMPRESSION:? No acute cardiopulmonary disease.? ? ? Dictated by: Hiral Galloway M.D. on 03/18/2021 at 15:48 ? ? Approved by: Hiral Galloway M.D. on 03/18/2021 at 15:49 ? CT scan - chest: Radiologist's Impression: PROCEDURE:? CT ANGIO CHEST PE PROTOCOL ? INDICATIONS:? SOB, CP ? TECHNIQUE:? After the administration of intravenous contrast, 2 mm thick sections acquired from the pulmonary apices to the posterior costophrenic angles.? 3-dimensional maximum intensity projection (MIP) coronal and sagittal reformats were then acquired through the thorax.? For radiation dose reduction, the following was used:? automated exposure control, adjustment of mA and/or kV according to patient size.? ? COMPARISON:? [facility], CT, CT ANGIO CHEST PE PROTOCOL, 12/05/2020, 9:49. ? FINDINGS:? Image quality:? Excellent.? ? Pulmonary arteries:? Pulmonary arteries are normal in size, and demonstrate no intraluminal filling defects to suggest pulmonary embolism.? ? Lungs and pleura:? No consolidation, pleural effusions or pneumothorax.? Central and peripheral airways are patent.? No suspicious nodules or masses. ? Mediastinum:? Heart size is normal, without pericardial effusion.? Coronary artery calcifications are seen.? No mediastinal or hilar adenopathy.? Thoracic aorta is normal in caliber and enhancement.? Esophagus is normal in caliber, without hiatal hernia.? ? Bones and chest wall:? No suspicious bony lesions.? Multilevel degenerative changes of the thoracic spine.? The ribs and thoracic spine appear intact throughout.? Thyroid gland is homogeneous. No axillary or supraclavicular adenopathy.? ? Abdomen:? Visualized upper abdominal solid organs appear normal in the early arterial phase of enhancement. 1.4 cm nodule in the left adrenal gland, which is indeterminate.? ? IMPRESSION:? 1. No significant intrathoracic abnormality. 2. 1.4 cm nodule in the left adrenal gland, which is indeterminate but statistically represents an adenoma in the absence of neoplastic history.? ? Dictated by: Sid Cole M.D. on 03/18/2021 at 16:36 ? ? Approved by: Sid Cole M.D. on 03/18/2021 at 16:45 ? ECG Data Interpretation: Sinus rhythm with frequent PVCs, no axis deviation, no ST-T changes. MDM Narrative Medical decision making narrative: 70-year-old female with a history of CAD, diastolic heart failure with preserved ejection fraction, essential hypertension, Sjogren syndrome, hyperlipidemia presents to the ED with 1 day of chest pain, shortness of breath. Concern for ACS versus acute congestive heart failure versus pneumonia versus COVID-19 versus PE. Will order labs, troponin, BNP, chest x-ray, EKG, COVID-19, D-dimer. Will re-evaluate. <Yadira Ram, DO - Last Filed: 03/22/21 09:24> Lab Data Labs: Lab Results 03/18/21 03/18/21 03/18/21 Range/Units 14:25 14:25 14:25 WBC 6.2 (4.5-11.0) X10^3/uL RBC 4.30 (4.0-5.2) X10^6/uL Hgb 12.3 (12.0-16.0) g/dL Hct 37.4 (36-46) % MCV 87.0 (80-100) fL MCH 28.6 (26-34) PG MCHC 32.9 (30-36) % RDW 15.4 H (11.6-14.8) % Plt Count 236 (150-400) X10^3/uL Neut % (Auto) 58.3 (50-75) % Lymph % (Auto) 31.0 (25-40) % [place] % (Auto) 7.0 (3-14) % Eos % (Auto) 2.7 (2-4) % Baso % (Auto) 1.0 (0-2) % Neut # (Auto) 3600 (4704-9356) /uL Lymph # (Auto) 1900 (8454-9382) /uL [place] # (Auto) 400 (0-900) /uL Eos # (Auto) 200 (0-450) /uL Baso # (Auto) 100 (0-100) /uL D-Dimer 474 H (<230) ng/mL Sodium 141 (137-145) mmol/L Potassium 3.7 (3.4-5.1) mmol/L Chloride 105 (98-107) mmol/L Carbon Dioxide 25 (22-32) mmol/L BUN 9 (7-17) mg/dL Creatinine 0.92 (0.52-1.04) mg/dL Estimated GFR > 60.0 (>60) mL/min BUN/Creatinine Ratio 9.8 (6-22) Glucose 97 (80-110) mg/dL Calcium 9.5 (8.4-10.2) mg/dL Total Bilirubin 0.3 (0.2-1.3) mg/dL AST 24 (14-36) IU/L ALT 22 (<35) IU/L Alkaline Phosphatase 107 (38-126) U/L Troponin I < 0.012 (0.01-0.034) ng/mL NT-Pro-B Natriuret Pep 20 (<125) pg/mL Total Protein 7.0 (6.3-8.2) g/dL Albumin 4.5 (3.5-5.0) g/dL Globulin 2.5 (1.7-4.1) g/dL Albumin/Globulin Ratio 1.8 (1.0-2.8) SARS-CoV-2 (PCR) (Negative) 03/18/21 03/18/21 Range/Units 14:28 17:25 WBC (4.5-11.0) X10^3/uL RBC (4.0-5.2) X10^6/uL Hgb (12.0-16.0) g/dL Hct (36-46) % MCV (80-100) fL MCH (26-34) PG MCHC (30-36) % RDW (11.6-14.8) % Plt Count (150-400) X10^3/uL Neut % (Auto) (50-75) % Lymph % (Auto) (25-40) % [place] % (Auto) (3-14) % Eos % (Auto) (2-4) % Baso % (Auto) (0-2) % Neut # (Auto) (3064-5778) /uL Lymph # (Auto) (0973-4087) /uL [place] # (Auto) (0-900) /uL Eos # (Auto) (0-450) /uL Baso # (Auto) (0-100) /uL D-Dimer (<230) ng/mL Sodium (137-145) mmol/L Potassium (3.4-5.1) mmol/L Chloride (98-107) mmol/L Carbon Dioxide (22-32) mmol/L BUN (7-17) mg/dL Creatinine (0.52-1.04) mg/dL Estimated GFR (>60) mL/min BUN/Creatinine Ratio (6-22) Glucose (80-110) mg/dL Calcium (8.4-10.2) mg/dL Total Bilirubin (0.2-1.3) mg/dL AST (14-36) IU/L ALT (<35) IU/L Alkaline Phosphatase (38-126) U/L Troponin I < 0.012 (0.01-0.034) ng/mL NT-Pro-B Natriuret Pep (<125) pg/mL Total Protein (6.3-8.2) g/dL Albumin (3.5-5.0) g/dL Globulin (1.7-4.1) g/dL Albumin/Globulin Ratio (1.0-2.8) SARS-CoV-2 (PCR) Negative (Negative) ECG Data Interpretation: Sinus rhythm with frequent PVCs, no axis deviation, no ST-T changes. botnick: Rhythm rate 73 [place] interval 156 QRS 100 QTC [address] changes or T-wave in inversions previous EKG shows a T-wave inversion in V2 and V3 which is no longer present Discharge Plan Departure Patient Disposition: Home Clinical Impression: Chest pain Qualifiers: Chest pain type: unspecified Qualified Code(s): R07.9 - Chest pain, unspecified Instructions: DI for Chest Pain Activity Restrictions/Additional Instructions: You were evaluated in the ED for chest pain and shortness of breath. Your EKG, chest x-ray, labs, troponin, CT chest were all normal. Please follow-up with your endoscopy nurse as soon as possible for further workup. Return to the ED if your symptoms worsen. Prescriptions: No Action aspirin 81 MG tablet,delayed release (DR/EC) 81 mg PO QPM Qty: 0 RF: 0 miscellaneous medical supply Misc 1 each .ROUTE .COMPLEX Qty: 1 RF: 0 losartan 100 mg tablet 100 mg PO DAILY Qty: 90 RF: 3 nitroglycerin 0.4 mg tablet, sublingual 0.4 mg sublingual Q5-15M PRNRF: 0 isosorbide mononitrate 30 mg tablet extended release 24 hr 30 mg PO QAM RF: 0 torsemide 10 mg tablet 10 mg PO DAILY RF: 0 spironolactone 25 mg tablet 25 mg PO DAILY RF: 0 omega 3 690 mg PO DAILY RF: 0 alpha lipoic acid 600 mg capsule 600 mg PO DAILY RF: 0 aripiprazole 20 mg tablet 10 mg PO QAM RF: 0 Referrals: Doris Schreiber ARNP [Primary Care Provider] -
[2021-03-18 14:49] LABS: Alanine Aminotransferase 22 IU/L (<35); Albumin 4.5 g/dL (3.5-5.0); Albumin Globulin Ratio 1.8 (1.0-2.8); Alkaline Phosphatase 107 U/L (38-126); Aspartate Aminotransferase 24 IU/L (14-36); BUN Creatinine Ratio 9.8 (6-22); Bilirubin Total 0.3 mg/dL (0.2-1.3); Blood Urea Nitrogen 9 mg/dL (7-17); Calcium 9.5 mg/dL (8.4-10.2); Carbon Dioxide 25 mmol/L (22-32); Chloride 105 mmol/L (98-107); Estimated Glomerular Filt Rate > 60.0 mL/min (>60); Globulin 2.5 g/dL (1.7-4.1); Glucose 97 mg/dL (80-110); HEMOLYSIS < 15 (0-50); Potassium 3.7 mmol/L (3.4-5.1); Sodium 141 mmol/L (137-145)
[2021-03-18 15:02] LABS: NT-proBNP (BNP-Adult 18+) 20 pg/mL (<125); Troponin I < 0.012 ng/mL (0.01-0.034)
[2021-03-18 15:23] LABS: D Dimer 474 ng/mL (<230)
--- NOTE | 2021-03-18 15:44 | DI.CT.S_ITS ---
PROCEDURE: CT ANGIO CHEST PE PROTOCOL INDICATIONS: SOB, CP TECHNIQUE: After the administration of intravenous contrast, 2 mm thick sections acquired from the pulmonary apices to the posterior costophrenic angles. 3-dimensional maximum intensity projection (MIP) coronal and sagittal reformats were then acquired through the thorax. For radiation dose reduction, the following was used: automated exposure control, adjustment of mA and/or kV according to patient size. COMPARISON: [facility], CT, CT ANGIO CHEST PE PROTOCOL, 12/05/2020, 9:49. FINDINGS: Image quality: Excellent. Pulmonary arteries: Pulmonary arteries are normal in size, and demonstrate no intraluminal filling defects to suggest pulmonary embolism. Lungs and pleura: No consolidation, pleural effusions or pneumothorax. Central and peripheral airways are patent. No suspicious nodules or masses. Mediastinum: Heart size is normal, without pericardial effusion. Coronary artery calcifications are seen. No mediastinal or hilar adenopathy. Thoracic aorta is normal in caliber and enhancement. Esophagus is normal in caliber, without hiatal hernia. Bones and chest wall: No suspicious bony lesions. Multilevel degenerative changes of the thoracic spine. The ribs and thoracic spine appear intact throughout. Thyroid gland is homogeneous. No axillary or supraclavicular adenopathy. Abdomen: Visualized upper abdominal solid organs appear normal in the early arterial phase of enhancement. 1.4 cm nodule in the left adrenal gland, which is indeterminate. IMPRESSION: 1. No significant intrathoracic abnormality. 2. 1.4 cm nodule in the left adrenal gland, which is indeterminate but statistically represents an adenoma in the absence of neoplastic history. Dictated by: Sid Cole M.D. on 03/18/2021 at 16:36 Approved by: Sid Cole M.D. on 03/18/2021 at 16:45
[2021-03-18 15:47] LABS: COVID19 - ADMIT (NP swab/PCR) Negative (Negative)
[2021-03-18 17:55] LABS: Troponin I < 0.012 ng/mL (0.01-0.034)
== END 2021-03-18 18:14 | disposition home or self-care (01) ==
PROVIDERS: Emergency Provider Student in an Organized Health Care Education/Training Program; PCP Nurse Practitioner
DX: R07.9 Chest pain, unspecified (principal); Z20.822 Contact with and (suspected) exposure to COVID-19
CPT/HCPCS: 36415; 71046; 71275; 80053; 83880; 84484; 85025; 85379; 87635; 93005; 93010; 99284; C9803; Q9967

== ENCOUNTER → 2021-03-29 11:04 | Outpatient (CLI) | payer MEDICARE, BC, SELFPAY ==
[2020-10-04 13:43] VITALS: BMI 33.3
--- NOTE | 2021-03-29 11:24 | DI.CT.S_ITS ---
PROCEDURE: CT ABDOMEN W CON INDICATIONS: pancreatic protocol TECHNIQUE: After the administration of intravenous contrast, axial sections acquired from the diaphragm to the iliac crests. Coronal and sagittal reformats were performed. For radiation dose reduction, the following was used: automated exposure control, adjustment of mA and/or kV according to patient size. COMPARISON: [facility], CT, ABDOMEN/PELVIS WITH CONTRAST, 08/05/2015, 13:30. [facility], US, US ABDOMEN LIMITED, 12/04/2020, 16:32. [facility], CT, CT ABDOMEN PELVIS W CON, 10/21/2020, 8:19. [facility], CT, CT ANGIO CHEST PE PROTOCOL, 03/18/2021, 15:57. FINDINGS: Image quality: Excellent. Lung bases: Unremarkable. Heart: No significant findings. Liver: No focal lesion. Gallbladder: Surgically absent. Biliary ducts: Unchanged prominent CBD likely due to post cholecystectomy status. No intrahepatic biliary ductal dilatation. Pancreas: Hypodensity in the body of the pancreas measuring 0.9 cm, (), previously 1 cm and more remotely 0.7 cm in 2016. No suspicious enhancement demonstrated. No pancreatic ductal dilatation demonstrated. The pancreas enhances uniformly. No peripancreatic fluid collection. Spleen: No splenomegaly. Calcified granuloma. Adrenal Glands: Left adrenal nodule measuring 1.2 cm, (07/27), remotely 1.3 cm in 2016. Kidneys and Ureters: No solid renal mass. Small simple appearing left kidney cyst. Stomach and Bowel: Stomach, small bowel loops, and colon are unremarkable. Colonic diverticulosis. Portions of the visualized appendix are not dilated. Peritoneum: No abnormal intraperitoneal fluid. No free air. Ventral Wall: No hernia. Abdominal Nodes: No retroperitoneal or mesenteric adenopathy by size criteria. Vessels: Aorta and inferior vena cava are normal in size. Mild calcified atherosclerotic plaque. Bones: No compression fracture. No suspicious lesion. IMPRESSION: 1. Cystic lesion in the body of the pancreas measuring 0.9 cm is minimally increased in size compared to 2016. This could represent a small IPMN. No pancreatic ductal dilatation is seen. 2. Mild prominence of the CBD is unchanged and likely related to post cholecystectomy status. No intrahepatic biliary ductal dilatation. 3. Left adrenal nodule measuring 1.2 cm is not significantly changed compared to 2016. This likely represents a benign adenoma given its long-term stability. Dictated by: Michael Cormier M.D. on 03/29/2021 at 18:42 Approved by: Michael Cormier M.D. on 03/29/2021 at 18:53
== END ==
PROVIDERS: PCP Nurse Practitioner; Referring Provider Nurse Practitioner; Visit Provider Nurse Practitioner
DX: K86.89 Other specified diseases of pancreas (principal); E27.9 Disorder of adrenal gland, unspecified
CPT/HCPCS: 74160

== ENCOUNTER 2021-04-10 14:30 | Outpatient (RCR) | payer MEDICARE, BC, SELFPAY ==
[2020-10-04 13:43] VITALS: BMI 33.3
--- NOTE | 2021-01-28 13:47 | PT.OIE ---
Current Diagnoses Other specified polyneuropathies (01/28/21) Weakness (01/28/21) History of falling (01/28/21) Dependence on other enabling machines and devices (01/28/21) Past Medical History (Last Updated 12/20/20 @ 12:39 by JENAE Mark) Abdominal pain Activity intolerance Acute pancreatitis Anemia Anosmia Atypical chest pain Cervical dystonia (1986) Chicken pox (1956) Cholecystectomy planned Chronic fatigue (08/07/15) Colon polyps Cough CTS (carpal tunnel syndrome) (1986) Denervation of muscle Depression (1974) Diastasis of rectus abdominis (08/07/15) Dyspnea Dyspnea Dyspnea on exertion Episodic lightheadedness Fatigue Gastritis Generalized abdominal pain (08/07/15) Headache History of cervical spinal surgery (07/2008) History of laparoscopic cholecystectomy (2006) History of unstable angina Hyperlipidemia Hypertension Itch of skin Measles (1957) Metallic taste (10/11/15) Mumps (1958) Myasthenia gravis Neoplasm of uncertain behavior of skin (10/11/15) NSAID induced gastritis Osteopenia after menopause Osteoporosis Peripheral neuropathy (2012) Piriformis syndrome of right side Progressive neurological disorder Right hip pain S/P DANILO-BSO (total abdominal hysterectomy and bilateral salpingo-oophorectomy) (01/2007) Shortness of breath (08/27/15) Sjogren's syndrome (2012) Skin cancer (2015) Sleep apnea (2009) Small fiber polyneuropathy SOB (shortness of breath) (2010) Status post DANILO-BSO Visual disturbance Past Surgical History (Last Reviewed 12/20/20 @ 12:31 by JENAE Mark) Anesthesia complication History of carpal tunnel repair (1989) History of cervical spinal surgery (07/2008) History of laparoscopic cholecystectomy (2006) S/P DANILO-BSO (total abdominal hysterectomy and bilateral salpingo-oophorectomy) (01/2007) Status post hernia repair (2013) Status post hernia repair (2007) Visit Care Team Role Provider Type JENAE Mark Attending Provider Advanced Maintenance Millwright Primary Care Provider Referring Provider Specialty: Family Practice Address: [address] [place] [address], [id number] Email: [email or web address] Physical Therapy Initial Evaluation PT-OP-A Visit Information Start: 01/27/21 08:16 Freq: Status: Active Protocol: Document 01/28/21 13:47 SAK (Rec: 01/28/21 14:33 SAK [id number]) Out-Patient Physical Therapy Visit Information Visit Information Visit Type Initial Evaluation Visit Start Time 13:45 Visit Stop Time 14:30 Total Visit Minutes 45 Visit Number 1 Evaluation Information Evaluation Date 01/28/21 Precautions Precautions Has nitroglycerin to take if chest pain. PT-OP-B Current Condition Start: 01/27/21 08:16 Freq: Status: Active Protocol: Document 01/28/21 13:47 SAK (Rec: 01/28/21 14:33 SAK [id number]) Current Condition History of Current Condition Onset Date 4 yrs Current Complaints fatigue, weakness, still no neuro diagnosis, cardiac diagnosis History of Current Condition Gradual progressive weakness, SOB and exercise intolerance and excess fatigue started using cane May 2017. Since that time has been seeing specialists and having tests with diagnosis of possible indeterminate type of muscular dystrophy vs small fiber polyneuropathy . Since last seen in PT 11/12/20 reports has had a harder time getting around physically, no longer able to use cane at night, uses 4WW, also uses portable folding electric wheelchair at times, more than she used to. Occasionally has to use electric wheelchair in the house. Moving less because it's harder to do, reports had an episode where she stayed in bed for 4 days only getting up to go to bathroom and didn't have energy to shower. Had chest pain since last seen, went to ER, had angiogram, no blockages, other tests as below. Diagnosed last week with CAD and diastolic dysfunction. States doctor told her she is candidate for heart attack within 5 years even with medication. Was started on Furosemide, and 1x day long acting nitroglycerine . Carries regular nitro. Has more tingling in her legs, aching, feel weak. Won't walk with cane without holding onto someone or something. Has to pay more attention to posture . Has tipped into wall or dresser, not fallen fully to floor. Prior Treatments and Tests Angiogram [place] [facility] Medically-induced stress test all over past month. No conclusive diagnosis related to neuro symptoms; MG vs small fiber polyneuropathy Future Testing and Treatments Planned No tests planned at this point . February 07 at [facility] with Dr. Ramirez. May be transferring care to Dr Stone Angela at [facility]. Treatment Goals Patient/Caregiver Goals Get back to being more confident walking; move legs more normally. Improve endurance and strength. Improve breathing. Hasn't been able to follow-through with HEP including breathing exercises. Prior Functional Status Baseline Function- ADL's Independent Baseline Function- Mobility Independent Baseline Function- Gait independent Baseline Function- Work/School no limitations Baseline Function- Recreation/Hobbies no limitations Current Functional Impairments (Reported) Functional Limitations- ADL's slow, exhausting Functional Limitations- Mobility/Gait uses 4WW primarily occasionally electric w/c Functional Limitations- Work/School unable Functional Limitations- Recreation/ not able to tolerate beyond Hobbies occasional reading or writing notes. PT-OP-C Subjective Start: 01/27/21 08:16 Freq: Status: Active Protocol: Document 01/28/21 13:47 [facility] (Rec: 01/29/21 13:44 [facility] [id number]) Patient Questionnaires ABC- Activity Specific Balance Confidence Scale ABC Score 50 PT-OP-D Balance Start: 01/27/21 08:16 Freq: Status: Active Protocol: Document 01/28/21 13:47 SAK (Rec: 01/29/21 13:44 [facility] [id number]) OP-PT Balance Assessment Sitting Balance Static Sitting Balance Ability Normal Dynamic Sitting Balance Ability Normal Standing Balance Static Standing Balance Ability Good Dynamic Standing Balance Ability Fair Balance Tests Other Other Balance Tests Performed not done today, ran out of time after patient interview, strength, ROM, and neuro testing. Patient fatigued Hebert Fall Scale Copyright Permission PT-OP-E Functional Tests Start: 01/27/21 08:16 Freq: Status: Active Protocol: Document 01/28/21 13:47 SAK (Rec: 01/29/21 13:44 [facility] [id number]) Functional Tests 2 Minute Walk Test Distance 194 ft Device Used 4WW PT-OP-G Mobility & Gait Start: 01/27/21 08:16 Freq: Status: Active Protocol: Document 01/28/21 13:47 SAK (Rec: 01/29/21 13:44 [facility] [id number]) OP Mobility Evaluation Bed Mobility Rolling indep, but labored Supine to and from Sit indep but but labored Transfers Sit to Stand slow, indep but labored Car Transfers SBA Floor Transfers not assessed due to fatigue Functional Movements Lifting and Carrying unable Squats fatiguing Running Assessment unaqble OP Gait Assessment Gait Gait Assistance Required: Independent Distance (Feet) 194 Able to Maintain Weight Bearing Status Yes During Gait Assistive Devices Assistive Device 4 Wheeled Walker Comments Gait Comments Trendelenberg left with increased lateral trunk flexion left and hip drop, limited by fatigues, SOB Stair Climbing Evaluation Comments Stair Climbing Comments not done today due to fatigue PT-OP-H Neuro Start: 01/27/21 08:16 Freq: Status: Active Protocol: Document 01/28/21 13:47 [facility] (Rec: 01/29/21 13:44 [facility] [id number]) Sensation Evaluation Gross Sensation Gross Sensation Right LE Impaired Sensation Description Numbness Comments Summary Comments min LT sensation right knee to toes c/o pins and needles sensation bilateral LE's at times. Deep Tendon Reflex & Clonus Assessment Deep Tendon Reflex Right Patellar Deep Tendon Reflex 0 Absent Left Patellar Deep Tendon Reflex 1+ Diminished Bilateral Achilles Deep Tendon Reflex 0 Absent Vital Signs Comments Vital Signs Comments BP 154/90 after physical eval, not taken at beginning of session; plan to monitor at least 2x at beginning and during subsequent PT-OP-K Range of Motion Start: 01/27/21 08:16 Freq: Status: Active Protocol: Document 01/28/21 13:47 [facility] (Rec: 01/29/21 13:44 [facility] [id number]) Cervical Spine Range of Motion Cervical Spine Active Comments WNL Shoulder Goniometric Range of Motion Shoulder Girma Shoulder ROM WFL Yes Hip Goniometric Range of Motion Hip girma Straight Leg Raise 55 Internal Rotation 40 External Rotation 50 Comments patient requires assist for SLR Hip ROM Limitations Hip ROM Limitations Soft Tissue Tightness,Muscle Weakness Knee Goniometric Range of Motion Knee girma Knee ROM WFL Yes Ankle and Foot Goniometric Range of Motion Ankle and Foot girma Dorsiflexion with Knee Flexed 5 Dorsiflexion with Knee Extended 0 Ankle and Foot ROM Limitations ROM Limitations Soft Tissue Tightness PT-OP-M Strength Start: 01/27/21 08:16 Freq: Status: Active Protocol: Document 01/28/21 13:47 [facility] (Rec: 01/29/21 17:01 [facility] [id number]) Shoulder Strength Shoulder Manual Muscle Testing girma Flexion 4+ Good+ Extension 4+ Good+ Abduction (C5) 4+ Good+ External Rotation 4+ Good+ Internal Rotation 4+ Good+ Elbow/Forearm Strength Elbow and Forearm Manual Muscle Testing girma Flexion (C6) 4+ Good+ Extension (C7) 4+ Good+ Hip Strength Hip Manual Muscle Testing Right Flexion (L2) 4- Good- Extension (S1) 3+ Fair+ Abduction 3+ Fair+ External Rotation 3+ Fair+ Internal Rotation 3+ Fair+ Left Flexion (L2) 3+ Fair+ Extension (S1) 4- Good- Abduction 3+ Fair+ External Rotation 4- Good- Internal Rotation 4- Good- Knee Strength Knee Manual Muscle Testing Right Flexion (S2) 3+ Fair+ Extension (L3) 4 Good Left Flexion (S2) 4- Good- Extension (L3) 4 Good Ankle/Foot Strength Ankle and Foot Manual Muscle Testing Right Dorsiflexion (L4) 4 Good Plantarflexion (S1) 3+ Fair+ Left Dorsiflexion (L4) 4 Good Plantarflexion (S1) 1 Trace PT-OP-Q Treatments Start: 01/27/21 08:16 Freq: Status: Active Protocol: Document 01/28/21 13:47 [facility] (Rec: 01/29/21 17:01 [facility] [id number]) Self-Care/Home Management Treatment Education Patient Education Home Exercise Program PT-OP-T Assessment and Plan Start: 01/27/21 08:16 Freq: Status: Active Protocol: Document 01/28/21 13:47 [facility] (Rec: 01/29/21 17:01 [facility] [id number]) Physical Therapy Assessment Rehab Potential Rehabilitation Potential Fair Evaluation Complexity Number of Personal Factors/Comorbidities 3 or More Number of Body Systems Impaired 4 or More Clinical Presentation at Evaluation Unstable Impairments Impairments Activity Tolerance,Functional Mobility,Gait,Strength Goals Four Impairment excess fatigue with activity Short Term Goal (STG) Patient to be instructed in energy conservation and pacing . STG Duration 02/28/21 Anhydrous Ammonia Production Supervisor Goal (LTG) Patient to demonstrate good understanding and compliance with energy conservation measures and pacing of her activity. LTG Duration 04/29/21 Three Impairment Activities-Specific Balance Confidence scale 50% Anhydrous Ammonia Production Supervisor Goal (LTG) improve ABC scale to at least 65% as measure of improved confidence in her mobility to allow more functional independence in her daily life . LTG Duration 04/29/21 Two Impairment limited gait tolerance, requires use of 4WW or power w /c Impairment fatigued after 2 min ambulation, Trendelenberg gait Short Term Goal (STG) Patient able to ambulate for 4 min without excess fatigue with 4WW. STG Duration 02/28/21 Intermediate Goal (LTG) Patient able to ambulate without compensatory Trendelenberg gait pattern for at least 6 min with 4WW as measure of improved ability to perform short distance community mobility. LTG Duration 04/29/21 One Impairment weakness bilateral LE's Short Term Goal (STG) Patient to be instructed in HEP for LE strengthening supine, sitting, standing depending on tolerance. Improve muscle strength 1/2 grade all muscle groups STG Duration 02/28/21 Intermediate Goal (LTG) Patient to be independent and compliant with HEP for purposes of LE strengthening, including options for supine, sitting, and standing. Improved strength by 1 grade all muscle groups. LTG Duration 04/29/21 Assessment Summary Assessment Patient presents with activity intolerance, SOB with activity, weakness, and recent diagnosis of diastolic dysfunction after presenting to ER with chest pain. Extensive patient interview as well as patient fatigue limited physical testing which will have to be continued at next PT session. Patient previously being seen by neurologists and being tested for MD vs small fiber polyneuropathy. No treatments have had much effect and she has continued to lose function . [place] [facility] was helpful previously and noted significant decline in function since last seen in PT a few months ago. Has been started on Furosemide, Nitroglycerine, and will be following up further with her legal services manager. BP today at end of session 154/90. Will continue to monitor both pre and post treatment. Feel she would benefit from PT to address the above patient goals with focus on improved activity tolerance and LE strength. Physical Therapy Plan Frequency and Duration Frequency of Treatment 2x/Week Duration of Treatment 12 weeks Plan of Care Start Date 01/29/21 Plan of Care End Date 04/29/21 Therapeutic Interventions Therapeutic Interventions Gait Training,Home Exercise Program,Neuromuscular Re- education,Patient/Caregiver Education,Self-Care/Home Management,Soft Tissue Mobilization,Taping, Therapeutic Activities, Therapeutic Exercises Modalities Electric Stimulation Next Visit Focus/Plan Next Note Type Treatment Note Next Visit Plan Further functional strength and balance testing; 5x sit to stand and Get up and Go test, SLS, tandem stand test. Initiate HEP instruction as tolerated.
--- NOTE | 2021-01-28 13:47 | PT.OPPOC ---
Physical, Occupational & Speech Therapy At [facility] Current Diagnoses Other specified polyneuropathies (01/28/21) Weakness (01/28/21) History of falling (01/28/21) Dependence on other enabling machines and devices (01/28/21) Visit Care Team Role Provider Type JENAE Mark Attending Provider Advanced Home Energy Consultant Supervisor Primary Care Provider Referring Provider Specialty: [facility] Address: [address] [place] [address], [facility] Email: [email or web address] Plan Of Care PT-OP-T Assessment and Plan Start: 01/27/21 08:16 Freq: Status: Active Protocol: Document 01/28/21 13:47 SAK (Rec: 01/29/21 17:01 SAK [id number]) Physical Therapy Assessment Rehab Potential Rehabilitation Potential Fair Evaluation Complexity Number of Personal Factors/Comorbidities 3 or More Number of Body Systems Impaired 4 or More Clinical Presentation at Evaluation Unstable Impairments Impairments Activity Tolerance,Functional Mobility,Gait,Strength Goals Four Impairment excess fatigue with activity Short Term Goal (STG) Patient to be instructed in energy conservation and pacing . STG Duration 02/28/21 Alf Goal (LTG) Patient to demonstrate good understanding and compliance with energy conservation measures and pacing of her activity. LTG Duration 04/29/21 Three Impairment Activities-Specific Balance Confidence scale 50% Turn Machine Operator Goal (LTG) improve ABC scale to at least 65% as measure of improved confidence in her mobility to allow more functional independence in her daily life . LTG Duration 04/29/21 Two Impairment limited gait tolerance, requires use of 4WW or power w /c Impairment fatigued after 2 min ambulation, Trendelenberg gait Short Term Goal (STG) Patient able to ambulate for 4 min without excess fatigue with 4WW. STG Duration 02/28/21 Turn Machine Operator Goal (LTG) Patient able to ambulate without compensatory Trendelenberg gait pattern for at least 6 min with 4WW as measure of improved ability to perform short distance community mobility. LTG Duration 04/29/21 One Impairment weakness bilateral LE's Short Term Goal (STG) Patient to be instructed in HEP for LE strengthening supine, sitting, standing depending on tolerance. Improve muscle strength 1/2 grade all muscle groups STG Duration 02/28/21 Turn Machine Operator Goal (LTG) Patient to be independent and compliant with HEP for purposes of LE strengthening, including options for supine, sitting, and standing. Improved strength by 1 grade all muscle groups. LTG Duration 04/29/21 Assessment Summary Assessment Patient presents with activity intolerance, SOB with activity, weakness, and recent diagnosis of diastolic dysfunction after presenting to ER with chest pain. Extensive patient interview as well as patient fatigue limited physical testing which will have to be continued at next PT session. Patient previously being seen by neurologists and being tested for MD vs small fiber polyneuropathy. No treatments have had much effect and she has continued to lose function . [place] [facility] was helpful previously and noted significant decline in function since last seen in PT a few months ago. Has been started on Furosemide, Nitroglycerine, and will be following up further with her steeple jack. BP today at end of session 154/90. Will continue to monitor both pre and post treatment. Feel she would benefit from PT to address the above patient goals with focus on improved activity tolerance and LE strength. Physical Therapy Plan Frequency and Duration Frequency of Treatment 2x/Week Duration of Treatment 12 weeks Plan of Care Start Date 01/29/21 Plan of Care End Date 04/29/21 Therapeutic Interventions Therapeutic Interventions Gait Training,Home Exercise Program,Neuromuscular Re- education,Patient/Caregiver Education,Self-Care/Home Management,Soft Tissue Mobilization,Taping, Therapeutic Activities, Therapeutic Exercises Modalities Electric Stimulation Next Visit Focus/Plan Next Note Type Treatment Note Next Visit Plan Further functional strength and balance testing; 5x sit to stand and Get up and Go test, SLS, tandem stand test. Initiate HEP instruction as tolerated. Plan of Care Dates Plan of Care Start Date 01/29/21 Plan of Care End Date 04/29/21 Electronically Signed by: Sydnie Clark, PT 01/29/21 0778 Please Sign and Return: I have reviewed this Plan of Care and certify that the skilled therapy services above are required to meet the patient?s needs. Physician Signature Date Printed Name and Credentials Clinical Instructor Signature Printed Name and Credentials
--- NOTE | 2021-01-30 13:43 | PT.OTN ---
Current Diagnoses Other specified polyneuropathies (01/30/21) Weakness (01/30/21) History of falling (01/30/21) Dependence on other enabling machines and devices (01/30/21) Physical Therapy Treatment Note PT-OP-A Visit Information Start: 01/27/21 08:16 Freq: Status: Active Protocol: Document 01/30/21 13:43 SAK (Rec: 01/30/21 14:32 SAK [id number]) Out-Patient Physical Therapy Visit Information Visit Information Visit Type Treatment Note Visit Start Time 13:45 Visit Stop Time 14:30 Total Visit Minutes 45 Visit Number 2 Evaluation Information Evaluation Date 01/28/21 Precautions Precautions Has nitroglycerin to take if chest pain. PT-OP-B Current Condition Start: 01/27/21 08:16 Freq: Status: Active Protocol: Document 01/30/21 13:43 SAK (Rec: 01/30/21 14:32 SAK [id number]) Current Condition History of Current Condition Onset Date 4 yrs Current Complaints fatigue, weakness, still no neuro diagnosis, cardiac diagnosis History of Current Condition Gradual progressive weakness, SOB and exercise intolerance and excess fatigue started using cane May 2017. Since that time has been seeing specialists and having tests with diagnosis of possible indeterminate type of muscular dystrophy vs small fiber polyneuropathy . Since last seen in PT 11/12/20 reports has had a harder time getting around physically, no longer able to use cane at night, uses 4WW, also uses portable folding electric wheelchair at times, more than she used to. Occasionally has to use electric wheelchair in the house. Moving less because it's harder to do, reports had an episode where she stayed in bed for 4 days only getting up to go to bathroom and didn't have energy to shower. Had chest pain since last seen, went to ER, had angiogram, no blockages, other tests as below. Diagnosed last week with CAD and diastolic dysfunction. States doctor told her she is candidate for heart attack within 5 years even with medication. Was started on Furosemide, and 1x day long acting nitroglycerine . Carries regular nitro. Has more tingling in her legs, aching, feel weak. Won't walk with cane without holding onto someone or something. Has to pay more attention to posture . Has tipped into wall or dresser, not fallen fully to floor. Prior Treatments and Tests Angiogram [place] [facility] Medically-induced stress test all over past month. No conclusive diagnosis related to neuro symptoms; MG vs small fiber polyneuropathy Future Testing and Treatments Planned No tests planned at this point . February 07 at [facility] with Dr. Ramirez. May be transferring care to Dr Stone Angela at [facility]. Treatment Goals Patient/Caregiver Goals Wants to be able to drive herself short distances 1/2 to 1 mile in the community. Feels like it takes so much energy. Hasn't used her exercise bike. Has stopped taking Mestinon; feels SOB worse since heart thing, doesn 't feel Mestinon was helping the mobility. PT-OP-C Subjective Start: 01/27/21 08:16 Freq: Status: Active Protocol: Document 01/30/21 13:43 SAK (Rec: 01/30/21 14:32 SAK [id number]) OP-PT Subjective Patient Comments Patient Comments Fatigued after first session. Got booster shot for Covid 19 01/28. PT-OP-D Balance Start: 01/27/21 08:16 Freq: Status: Active Protocol: Document 01/28/21 13:47 SAK (Rec: 01/29/21 13:44 SAK [id number]) OP-PT Balance Assessment Sitting Balance Static Sitting Balance Ability Normal Dynamic Sitting Balance Ability Normal Standing Balance Static Standing Balance Ability Good Dynamic Standing Balance Ability Fair Balance Tests Other Other Balance Tests Performed not done today, ran out of time after patient interview, strength, ROM, and neuro testing. Patient fatigued Hebert Fall Scale Copyright Permission PT-OP-E Functional Tests Start: 01/27/21 08:16 Freq: Status: Active Protocol: Document 01/28/21 13:47 SAK (Rec: 01/29/21 13:44 SAK [id number]) Functional Tests 2 Minute Walk Test Distance 194 ft Device Used 4WW PT-OP-G Mobility & Gait Start: 01/27/21 08:16 Freq: Status: Active Protocol: Document 01/28/21 13:47 SAK (Rec: 01/29/21 13:44 SAK [id number]) OP Mobility Evaluation Bed Mobility Rolling indep, but labored Supine to and from Sit indep but but labored Transfers Sit to Stand slow, indep but labored Car Transfers SBA Floor Transfers not assessed due to fatigue Functional Movements Lifting and Carrying unable Squats fatiguing Running Assessment unaqble OP Gait Assessment Gait Gait Assistance Required: Independent Distance (Feet) 194 Able to Maintain Weight Bearing Status Yes During Gait Assistive Devices Assistive Device 4 Wheeled Walker Comments Gait Comments Trendelenberg left with increased lateral trunk flexion left and hip drop, limited by fatigues, SOB Stair Climbing Evaluation Comments Stair Climbing Comments not done today due to fatigue PT-OP-H Neuro Start: 01/27/21 08:16 Freq: Status: Active Protocol: Document 01/28/21 13:47 [facility] (Rec: 01/29/21 13:44 [facility] [id number]) Sensation Evaluation Gross Sensation Gross Sensation Right LE Impaired Sensation Description Numbness Comments Summary Comments min LT sensation right knee to toes c/o pins and needles sensation bilateral LE's at times. Deep Tendon Reflex & Clonus Assessment Deep Tendon Reflex Right Patellar Deep Tendon Reflex 0 Absent Left Patellar Deep Tendon Reflex 1+ Diminished Bilateral Achilles Deep Tendon Reflex 0 Absent Vital Signs Comments Vital Signs Comments BP 154/90 after physical eval, not taken at beginning of session; plan to monitor at least 2x at beginning and during subsequent PT-OP-K Range of Motion Start: 01/27/21 08:16 Freq: Status: Active Protocol: Document 01/28/21 13:47 [facility] (Rec: 01/29/21 13:44 [facility] [id number]) Cervical Spine Range of Motion Cervical Spine Active Comments WNL Shoulder Goniometric Range of Motion Shoulder León Shoulder ROM WFL Yes Hip Goniometric Range of Motion Hip león Straight Leg Raise 55 Internal Rotation 40 External Rotation 50 Comments patient requires assist for SLR Hip ROM Limitations Hip ROM Limitations Soft Tissue Tightness,Muscle Weakness Knee Goniometric Range of Motion Knee león Knee ROM WFL Yes Ankle and Foot Goniometric Range of Motion Ankle and Foot león Dorsiflexion with Knee Flexed 5 Dorsiflexion with Knee Extended 0 Ankle and Foot ROM Limitations ROM Limitations Soft Tissue Tightness PT-OP-M Strength Start: 01/27/21 08:16 Freq: Status: Active Protocol: Document 01/28/21 13:47 [facility] (Rec: 01/29/21 17:01 [facility] [id number]) Shoulder Strength Shoulder Manual Muscle Testing león Flexion 4+ Good+ Extension 4+ Good+ Abduction (C5) 4+ Good+ External Rotation 4+ Good+ Internal Rotation 4+ Good+ Elbow/Forearm Strength Elbow and Forearm Manual Muscle Testing león Flexion (C6) 4+ Good+ Extension (C7) 4+ Good+ Hip Strength Hip Manual Muscle Testing Right Flexion (L2) 4- Good- Extension (S1) 3+ Fair+ Abduction 3+ Fair+ External Rotation 3+ Fair+ Internal Rotation 3+ Fair+ Left Flexion (L2) 3+ Fair+ Extension (S1) 4- Good- Abduction 3+ Fair+ External Rotation 4- Good- Internal Rotation 4- Good- Knee Strength Knee Manual Muscle Testing Right Flexion (S2) 3+ Fair+ Extension (L3) 4 Good Left Flexion (S2) 4- Good- Extension (L3) 4 Good Ankle/Foot Strength Ankle and Foot Manual Muscle Testing Right Dorsiflexion (L4) 4 Good Plantarflexion (S1) 3+ Fair+ Left Dorsiflexion (L4) 4 Good Plantarflexion (S1) 1 Trace PT-OP-Q Treatments Start: 01/27/21 08:16 Freq: Status: Active Protocol: Document 01/30/21 13:43 [facility] (Rec: 02/03/21 09:24 [facility] [id number]) Therapeutic Activity Therapeutic Activity 1 Name functional testing Comments 5x sit to stand 28.52 sec without use of UE's Get Up and Go 13.01 with 4WW SLS right 20 sec, left 7 sec Tandem stand 21 sec right foot in front 20 sec left foot in front. Gait Training Gait Activity gait level without device Description parallel bars Level of Assistance SBA Surface firm Distance/Duration 1 laps Treatment Focus hip stability, safety Comments mirror for visual feedback, cues for gluteal activation Self-Care/Home Management Treatment Education Other Education bring exercise handouts next session for review and modification as needed. PT-OP-T Assessment and Plan Start: 01/27/21 08:16 Freq: Status: Active Protocol: Document 01/30/21 13:43 [facility] (Rec: 01/30/21 14:32 [facility] [id number]) Physical Therapy Assessment Goals Four Impairment excess fatigue with activity Short Term Goal (STG) Patient to be instructed in energy conservation and pacing . STG Duration 02/28/21 Half-Way Goal (LTG) Patient to demonstrate good understanding and compliance with energy conservation measures and pacing of her activity. LTG Duration 04/29/21 Three Impairment Activities-Specific Balance Confidence scale 50% Form Tamper Goal (LTG) improve ABC scale to at least 65% as measure of improved confidence in her mobility to allow more functional independence in her daily life . LTG Duration 04/29/21 Two Impairment limited gait tolerance, requires use of 4WW or power w /c Impairment fatigued after 2 min ambulation, Trendelenberg gait Short Term Goal (STG) Patient able to ambulate for 4 min without excess fatigue with 4WW. STG Duration 02/28/21 Half-Way Goal (LTG) Patient able to ambulate without compensatory Trendelenberg gait pattern for at least 6 min with 4WW as measure of improved ability to perform short distance community mobility. LTG Duration 04/29/21 One Impairment weakness bilateral LE's Short Term Goal (STG) Patient to be instructed in HEP for LE strengthening supine, sitting, standing depending on tolerance. Improve muscle strength 1/2 grade all muscle groups STG Duration 02/28/21 Form Tamper Goal (LTG) Patient to be independent and compliant with HEP for purposes of LE strengthening, including options for supine, sitting, and standing. Improved strength by 1 grade all muscle groups. LTG Duration 04/29/21 Assessment Summary Assessment 5x sit to stand 28.52 sec without use of UE's Get Up and Go 13.01 with 4WW SLS right 20 sec, left 7 sec Tandem stand 21 sec right foot in front 20 sec left foot in front. BP 132/90 pre treatment, 140/ 80 after treatment. Physical Therapy Plan Frequency and Duration Frequency of Treatment 2x/Week Duration of Treatment 12 weeks Plan of Care Start Date 01/29/21 Plan of Care End Date 04/29/21 Therapeutic Interventions Therapeutic Interventions Gait Training,Home Exercise Program,Neuromuscular Re- education,Patient/Caregiver Education,Self-Care/Home Management,Soft Tissue Mobilization,Taping, Therapeutic Activities, Therapeutic Exercises Modalities Electric Stimulation Next Visit Focus/Plan Next Note Type Treatment Note Next Visit Plan Continue gentle progression of ther ex as tolerated to improve strength and functional activity tolerance, gait, and ability to self- manage with ther ex. Patient to bring exercise handouts to next PT session for review and modification as needed.
--- NOTE | 2021-02-06 17:01 | PT.OTN ---
Current Diagnoses Other specified polyneuropathies (02/06/21) Weakness (02/06/21) History of falling (02/06/21) Dependence on other enabling machines and devices (02/06/21) Physical Therapy Treatment Note PT-OP-A Visit Information Start: 01/27/21 08:16 Freq: Status: Active Protocol: Document 02/06/21 13:00 SAK (Rec: 02/06/21 13:47 SAK [id number]) Out-Patient Physical Therapy Visit Information Visit Information Visit Type Treatment Note Visit Start Time 13:00 Visit Stop Time 13:45 Total Visit Minutes 45 Visit Number 3 Evaluation Information Evaluation Date 01/28/21 Precautions Precautions Has nitroglycerin to take if chest pain. PT-OP-B Current Condition Start: 01/27/21 08:16 Freq: Status: Active Protocol: Document 02/06/21 13:00 SAK (Rec: 02/06/21 13:47 SAK [id number]) Current Condition History of Current Condition Onset Date 4 yrs Current Complaints fatigue, weakness, still no neuro diagnosis, cardiac diagnosis History of Current Condition Gradual progressive weakness, SOB and exercise intolerance and excess fatigue started using cane May 2017. Since that time has been seeing specialists and having tests with diagnosis of possible indeterminate type of muscular dystrophy vs small fiber polyneuropathy . Since last seen in PT 11/12/20 reports has had a harder time getting around physically, no longer able to use cane at night, uses 4WW, also uses portable folding electric wheelchair at times, more than she used to. Occasionally has to use electric wheelchair in the house. Moving less because it's harder to do, reports had an episode where she stayed in bed for 4 days only getting up to go to bathroom and didn't have energy to shower. Had chest pain since last seen, went to ER, had angiogram, no blockages, other tests as below. Diagnosed last week with CAD and diastolic dysfunction. States doctor told her she is candidate for heart attack within 5 years even with medication. Was started on Furosemide, and 1x day long acting nitroglycerine . Carries regular nitro. Has more tingling in her legs, aching, feel weak. Won't walk with cane without holding onto someone or something. Has to pay more attention to posture . Has tipped into wall or dresser, not fallen fully to floor. Prior Treatments and Tests Angiogram [place] [facility] CT Medically-induced stress test all over past month. No conclusive diagnosis related to neuro symptoms; MG vs small fiber polyneuropathy Future Testing and Treatments Planned No tests planned at this point . February 07 at [facility] with Dr. Ramirez. May be transferring care to Dr Stone Angela at [facility]. PT-OP-C Subjective Start: 01/27/21 08:16 Freq: Status: Active Protocol: Document 02/06/21 13:00 SAK (Rec: 02/06/21 13:47 [facility] [id number]) OP-PT Subjective Patient Comments Patient Comments New Nitro medication causing side effects of nausea, headache, but improving tolerance. Did ex bike 3x 2-3 min. First time did 3-4 min, had angina later and had to take Nitro, subsequent 2-3 min . Taking BP at home, has been high. Pulse variable, usually 60, over weekend was up around 112. Has had angina 2x after getting into bed middle of night, couple times when sitting and reading. Sees bottom saw operator tomorrow. PT-OP-D Balance Start: 01/27/21 08:16 Freq: Status: Active Protocol: Document 01/28/21 13:47 [facility] (Rec: 01/29/21 13:44 [facility] [id number]) OP-PT Balance Assessment Sitting Balance Static Sitting Balance Ability Normal Dynamic Sitting Balance Ability Normal Standing Balance Static Standing Balance Ability Good Dynamic Standing Balance Ability Fair Balance Tests Other Other Balance Tests Performed not done today, ran out of time after patient interview, strength, ROM, and neuro testing. Patient fatigued Hebert Fall Scale Copyright Permission PT-OP-E Functional Tests Start: 01/27/21 08:16 Freq: Status: Active Protocol: Document 01/28/21 13:47 [facility] (Rec: 01/29/21 13:44 [facility] [id number]) Functional Tests 2 Minute Walk Test Distance 194 ft Device Used 4WW PT-OP-G Mobility & Gait Start: 01/27/21 08:16 Freq: Status: Active Protocol: Document 01/28/21 13:47 [facility] (Rec: 01/29/21 13:44 [facility] [id number]) OP Mobility Evaluation Bed Mobility Rolling indep, but labored Supine to and from Sit indep but but labored Transfers Sit to Stand slow, indep but labored Car Transfers SBA Floor Transfers not assessed due to fatigue Functional Movements Lifting and Carrying unable Squats fatiguing Running Assessment unaqble OP Gait Assessment Gait Gait Assistance Required: Independent Distance (Feet) 194 Able to Maintain Weight Bearing Status Yes During Gait Assistive Devices Assistive Device 4 Wheeled Walker Comments Gait Comments Trendelenberg left with increased lateral trunk flexion left and hip drop, limited by fatigues, SOB Stair Climbing Evaluation Comments Stair Climbing Comments not done today due to fatigue PT-OP-H Neuro Start: 01/27/21 08:16 Freq: Status: Active Protocol: Document 01/28/21 13:47 [facility] (Rec: 01/29/21 13:44 [facility] [id number]) Sensation Evaluation Gross Sensation Gross Sensation Right LE Impaired Sensation Description Numbness Comments Summary Comments min LT sensation right knee to toes c/o pins and needles sensation bilateral LE's at times. Deep Tendon Reflex & Clonus Assessment Deep Tendon Reflex Right Patellar Deep Tendon Reflex 0 Absent Left Patellar Deep Tendon Reflex 1+ Diminished Bilateral Achilles Deep Tendon Reflex 0 Absent Vital Signs Comments Vital Signs Comments BP 154/90 after physical eval, not taken at beginning of session; plan to monitor at least 2x at beginning and during subsequent PT-OP-K Range of Motion Start: 01/27/21 08:16 Freq: Status: Active Protocol: Document 01/28/21 13:47 [facility] (Rec: 01/29/21 13:44 [facility] [id number]) Cervical Spine Range of Motion Cervical Spine Active Comments WNL Shoulder Goniometric Range of Motion Shoulder León Shoulder ROM WFL Yes Hip Goniometric Range of Motion Hip león Straight Leg Raise 55 Internal Rotation 40 External Rotation 50 Comments patient requires assist for SLR Hip ROM Limitations Hip ROM Limitations Soft Tissue Tightness,Muscle Weakness Knee Goniometric Range of Motion Knee león Knee ROM WFL Yes Ankle and Foot Goniometric Range of Motion Ankle and Foot león Dorsiflexion with Knee Flexed 5 Dorsiflexion with Knee Extended 0 Ankle and Foot ROM Limitations ROM Limitations Soft Tissue Tightness PT-OP-M Strength Start: 01/27/21 08:16 Freq: Status: Active Protocol: Document 01/28/21 13:47 SAK (Rec: 01/29/21 17:01 [facility] [id number]) Shoulder Strength Shoulder Manual Muscle Testing león Flexion 4+ Good+ Extension 4+ Good+ Abduction (C5) 4+ Good+ External Rotation 4+ Good+ Internal Rotation 4+ Good+ Elbow/Forearm Strength Elbow and Forearm Manual Muscle Testing león Flexion (C6) 4+ Good+ Extension (C7) 4+ Good+ Hip Strength Hip Manual Muscle Testing Right Flexion (L2) 4- Good- Extension (S1) 3+ Fair+ Abduction 3+ Fair+ External Rotation 3+ Fair+ Internal Rotation 3+ Fair+ Left Flexion (L2) 3+ Fair+ Extension (S1) 4- Good- Abduction 3+ Fair+ External Rotation 4- Good- Internal Rotation 4- Good- Knee Strength Knee Manual Muscle Testing Right Flexion (S2) 3+ Fair+ Extension (L3) 4 Good Left Flexion (S2) 4- Good- Extension (L3) 4 Good Ankle/Foot Strength Ankle and Foot Manual Muscle Testing Right Dorsiflexion (L4) 4 Good Plantarflexion (S1) 3+ Fair+ Left Dorsiflexion (L4) 4 Good Plantarflexion (S1) 1 Trace PT-OP-Q Treatments Start: 01/27/21 08:16 Freq: Status: Active Protocol: Document 02/06/21 13:00 [facility] (Rec: 02/06/21 13:47 [facility] [id number]) Therapeutic Activity Therapeutic Activity 1 Name 2 min walk test Reps/Minutes 2 min Comments 254 ft Gait Training Gait Activity gait with trekking poles Device Used 2 trekking poles Level of Assistance SBA, cues Distance/Duration 10'x1 Treatment Focus gait sequencing Comments optional assistive device for gait. gait Device Used quad cane Distance/Duration 15 ft x 2 Comments slow, steady, cues for sequencing. Self-Care/Home Management Treatment Education Patient Education Home Exercise Program Other Education review of HEP, pacing, start with 1-2 ex per day and build as tolerated. Same with exercise bike,pending any other recommendations from bottom saw operator. PT-OP-T Assessment and Plan Start: 01/27/21 08:16 Freq: Status: Active Protocol: Document 02/06/21 13:00 [facility] (Rec: 02/06/21 13:47 [facility] [id number]) Physical Therapy Assessment Goals Four Impairment excess fatigue with activity Short Term Goal (STG) Patient to be instructed in energy conservation and pacing . STG Duration 02/28/21 Snf Goal (LTG) Patient to demonstrate good understanding and compliance with energy conservation measures and pacing of her activity. LTG Duration 04/29/21 Three Impairment Activities-Specific Balance Confidence scale 50% Snf Goal (LTG) improve ABC scale to at least 65% as measure of improved confidence in her mobility to allow more functional independence in her daily life . LTG Duration 04/29/21 Two Impairment limited gait tolerance, requires use of 4WW or power w /c Impairment fatigued after 2 min ambulation, Trendelenberg gait Short Term Goal (STG) Patient able to ambulate for 4 min without excess fatigue with 4WW. STG Duration 02/28/21 Snf Goal (LTG) Patient able to ambulate without compensatory Trendelenberg gait pattern for at least 6 min with 4WW as measure of improved ability to perform short distance community mobility. LTG Duration 04/29/21 One Impairment weakness bilateral LE's Short Term Goal (STG) Patient to be instructed in HEP for LE strengthening supine, sitting, standing depending on tolerance. Improve muscle strength 1/2 grade all muscle groups STG Duration 02/28/21 Snf Goal (LTG) Patient to be independent and compliant with HEP for purposes of LE strengthening, including options for supine, sitting, and standing. Improved strength by 1 grade all muscle groups. LTG Duration 04/29/21 Assessment Summary Assessment RPE 2 min walk 8-9/10. Has had angina at home, typiccaly feels at rest. BP 188/70. O2 sats 98%, pulse 65. Denied chest pain with PT, but was highly fatigued. Sees bottom saw operator tomorrow. Physical Therapy Plan Frequency and Duration Frequency of Treatment 2x/Week Duration of Treatment 12 weeks Plan of Care Start Date 01/29/21 Plan of Care End Date 04/29/21 Therapeutic Interventions Therapeutic Interventions Gait Training,Home Exercise Program,Neuromuscular Re- education,Patient/Caregiver Education,Self-Care/Home Management,Soft Tissue Mobilization,Taping, Therapeutic Activities, Therapeutic Exercises Modalities Electric Stimulation Next Visit Focus/Plan Next Note Type Treatment Note Next Visit Plan Continue gentle progression of ther ex as tolerated to improve strength and functional activity tolerance, gait, and ability to self- manage with ther ex, pending any other recommendations from bottom saw operator.
--- NOTE | 2021-02-12 16:28 | PT.OTN ---
Current Diagnoses Other specified polyneuropathies (02/12/21) Weakness (02/12/21) History of falling (02/12/21) Dependence on other enabling machines and devices (02/12/21) Physical Therapy Treatment Note PT-OP-A Visit Information Start: 01/27/21 08:16 Freq: Status: Active Protocol: Document 02/12/21 14:31 SAK (Rec: 02/12/21 15:18 SAK [id number]) Out-Patient Physical Therapy Visit Information Visit Information Visit Type Treatment Note Visit Start Time 13:00 Visit Stop Time 13:45 Total Visit Minutes 45 Visit Number 4 Precautions Precautions Has nitroglycerin to take if chest pain. PT-OP-B Current Condition Start: 01/27/21 08:16 Freq: Status: Active Protocol: Document 02/12/21 14:31 SAK (Rec: 02/12/21 15:18 SAK [id number]) Current Condition History of Current Condition Onset Date 4 yrs Current Complaints fatigue, weakness, still no neuro diagnosis, cardiac diagnosis History of Current Condition Gradual progressive weakness, SOB and exercise intolerance and excess fatigue started using cane May 2017. Since that time has been seeing specialists and having tests with diagnosis of possible indeterminate type of muscular dystrophy vs small fiber polyneuropathy . Since last seen in PT 11/12/20 reports has had a harder time getting around physically, no longer able to use cane at night, uses 4WW, also uses portable folding electric wheelchair at times, more than she used to. Occasionally has to use electric wheelchair in the house. Moving less because it's harder to do, reports had an episode where she stayed in bed for 4 days only getting up to go to bathroom and didn't have energy to shower. Had chest pain since last seen, went to ER, had angiogram, no blockages, other tests as below. Diagnosed last week with CAD and diastolic dysfunction. States doctor told her she is candidate for heart attack within 5 years even with medication. Was started on Furosemide, and 1x day long acting nitroglycerine . Carries regular nitro. Has more tingling in her legs, aching, feel weak. Won't walk with cane without holding onto someone or something. Has to pay more attention to posture . Has tipped into wall or dresser, not fallen fully to floor. Prior Treatments and Tests Angiogram [place] [facility] Medically-induced stress test all over past month. No conclusive diagnosis related to neuro symptoms; MG vs small fiber polyneuropathy Future Testing and Treatments Planned No tests planned at this point . February 07 at [facility] with Dr. Ramirez. May be transferring care to Dr Stone Angela at [facility]. Treatment Goals Patient/Caregiver Goals Wants to be able to drive herself short distances 1/2 to 1 mile in the community. Feels like it takes so much energy. Hasn't used her exercise bike. Has stopped taking Mestinon; feels SOB worse since heart thing, doesn 't feel Mestinon was helping the mobility. PT-OP-C Subjective Start: 01/27/21 08:16 Freq: Status: Active Protocol: Document 02/12/21 14:31 SAK (Rec: 02/12/21 15:18 SAK [id number]) OP-PT Subjective Patient Comments Patient Comments Saw medical policy specialist at [facility]; angiogram shows no blockages in large vessels. Echocardiogram and metabolic panel ordered. Medications changed, but hasn't started changes yet due to appointment tomorrow. Sees medical policy specialist in [facility] tomorrow. Did start HEP, and ex bike x 3 min. Able to do 2 short walks. Has been monitoring BP 140-150 / 80-85 in am. In evening BP 130-135/80-83. SOB is an increasing problem. Went to [employer] Thursday, just a little walking. Couldn't do anything even talk with anyone on Thursday due to SOB, felt pressure in chest. PT-OP-D Balance Start: 01/27/21 08:16 Freq: Status: Active Protocol: Document 01/28/21 13:47 SAK (Rec: 01/29/21 13:44 SAK [id number]) OP-PT Balance Assessment Sitting Balance Static Sitting Balance Ability Normal Dynamic Sitting Balance Ability Normal Standing Balance Static Standing Balance Ability Good Dynamic Standing Balance Ability Fair Balance Tests Other Other Balance Tests Performed not done today, ran out of time after patient interview, strength, ROM, and neuro testing. Patient fatigued Hebert Fall Scale Copyright Permission PT-OP-E Functional Tests Start: 01/27/21 08:16 Freq: Status: Active Protocol: Document 01/28/21 13:47 SAK (Rec: 01/29/21 13:44 [facility] [id number]) Functional Tests 2 Minute Walk Test Distance 194 ft Device Used 4WW PT-OP-G Mobility & Gait Start: 01/27/21 08:16 Freq: Status: Active Protocol: Document 01/28/21 13:47 [facility] (Rec: 01/29/21 13:44 [facility] [id number]) OP Mobility Evaluation Bed Mobility Rolling indep, but labored Supine to and from Sit indep but but labored Transfers Sit to Stand slow, indep but labored Car Transfers SBA Floor Transfers not assessed due to fatigue Functional Movements Lifting and Carrying unable Squats fatiguing Running Assessment unaqble OP Gait Assessment Gait Gait Assistance Required: Independent Distance (Feet) 194 Able to Maintain Weight Bearing Status Yes During Gait Assistive Devices Assistive Device 4 Wheeled Walker Comments Gait Comments Trendelenberg left with increased lateral trunk flexion left and hip drop, limited by fatigues, SOB Stair Climbing Evaluation Comments Stair Climbing Comments not done today due to fatigue PT-OP-H Neuro Start: 01/27/21 08:16 Freq: Status: Active Protocol: Document 01/28/21 13:47 [facility] (Rec: 01/29/21 13:44 [facility] [id number]) Sensation Evaluation Gross Sensation Gross Sensation Right LE Impaired Sensation Description Numbness Comments Summary Comments min LT sensation right knee to toes c/o pins and needles sensation bilateral LE's at times. Deep Tendon Reflex & Clonus Assessment Deep Tendon Reflex Right Patellar Deep Tendon Reflex 0 Absent Left Patellar Deep Tendon Reflex 1+ Diminished Bilateral Achilles Deep Tendon Reflex 0 Absent Vital Signs Comments Vital Signs Comments BP 154/90 after physical eval, not taken at beginning of session; plan to monitor at least 2x at beginning and during subsequent PT-OP-K Range of Motion Start: 01/27/21 08:16 Freq: Status: Active Protocol: Document 01/28/21 13:47 [facility] (Rec: 01/29/21 13:44 [facility] [id number]) Cervical Spine Range of Motion Cervical Spine Active Comments WNL Shoulder Goniometric Range of Motion Shoulder Lenó Shoulder ROM WFL Yes Hip Goniometric Range of Motion Hip león Straight Leg Raise 55 Internal Rotation 40 External Rotation 50 Comments patient requires assist for SLR Hip ROM Limitations Hip ROM Limitations Soft Tissue Tightness,Muscle Weakness Knee Goniometric Range of Motion Knee león Knee ROM WFL Yes Ankle and Foot Goniometric Range of Motion Ankle and Foot león Dorsiflexion with Knee Flexed 5 Dorsiflexion with Knee Extended 0 Ankle and Foot ROM Limitations ROM Limitations Soft Tissue Tightness PT-OP-M Strength Start: 01/27/21 08:16 Freq: Status: Active Protocol: Document 01/28/21 13:47 [facility] (Rec: 01/29/21 17:01 [facility] [id number]) Shoulder Strength Shoulder Manual Muscle Testing león Flexion 4+ Good+ Extension 4+ Good+ Abduction (C5) 4+ Good+ External Rotation 4+ Good+ Internal Rotation 4+ Good+ Elbow/Forearm Strength Elbow and Forearm Manual Muscle Testing león Flexion (C6) 4+ Good+ Extension (C7) 4+ Good+ Hip Strength Hip Manual Muscle Testing Right Flexion (L2) 4- Good- Extension (S1) 3+ Fair+ Abduction 3+ Fair+ External Rotation 3+ Fair+ Internal Rotation 3+ Fair+ Left Flexion (L2) 3+ Fair+ Extension (S1) 4- Good- Abduction 3+ Fair+ External Rotation 4- Good- Internal Rotation 4- Good- Knee Strength Knee Manual Muscle Testing Right Flexion (S2) 3+ Fair+ Extension (L3) 4 Good Left Flexion (S2) 4- Good- Extension (L3) 4 Good Ankle/Foot Strength Ankle and Foot Manual Muscle Testing Right Dorsiflexion (L4) 4 Good Plantarflexion (S1) 3+ Fair+ Left Dorsiflexion (L4) 4 Good Plantarflexion (S1) 1 Trace PT-OP-Q Treatments Start: 01/27/21 08:16 Freq: Status: Active Protocol: Document 02/12/21 14:31 [facility] (Rec: 02/12/21 15:18 [facility] [id number]) Gym Equipment Shuttle Balance 2 Details chains red Comments bal and wt shift fwd/bck, side to side Therapeutic Exercises Sitting Exercises deep breathing Reps/Minutes 6 min Comments cues for breathing through nose, longer exhale than inhale pulleys Reps/Minutes 5x Therapeutic Activity Therapeutic Activity 1 Name 2 min walk test Reps/Minutes 2 min Comments 317 ft Gait Training Gait Activity gait Description fwd Device Used 4WW Level of Assistance SBA, cues Surface firm Distance/Duration 20x4 Treatment Focus pacing, controlled breathing Self-Care/Home Management Treatment Education Other Education pacing, controlled breathing with walking PT-OP-T Assessment and Plan Start: 01/27/21 08:16 Freq: Status: Active Protocol: Document 02/12/21 14:31 [facility] (Rec: 02/12/21 15:18 [facility] [id number]) Physical Therapy Assessment Goals Four Impairment excess fatigue with activity Short Term Goal (STG) Patient to be instructed in energy conservation and pacing . STG Duration 02/28/21 Converting Operator Goal (LTG) Patient to demonstrate good understanding and compliance with energy conservation measures and pacing of her activity. LTG Duration 04/29/21 Three Impairment Activities-Specific Balance Confidence scale 50% Fpc Goal (LTG) improve ABC scale to at least 65% as measure of improved confidence in her mobility to allow more functional independence in her daily life . LTG Duration 04/29/21 Two Impairment limited gait tolerance, requires use of 4WW or power w /c Impairment fatigued after 2 min ambulation, Trendelenberg gait Short Term Goal (STG) Patient able to ambulate for 4 min without excess fatigue with 4WW. STG Duration 02/28/21 Converting Operator Goal (LTG) Patient able to ambulate without compensatory Trendelenberg gait pattern for at least 6 min with 4WW as measure of improved ability to perform short distance community mobility. LTG Duration 04/29/21 One Impairment weakness bilateral LE's Short Term Goal (STG) Patient to be instructed in HEP for LE strengthening supine, sitting, standing depending on tolerance. Improve muscle strength 1/2 grade all muscle groups STG Duration 02/28/21 Fpc Goal (LTG) Patient to be independent and compliant with HEP for purposes of LE strengthening, including options for supine, sitting, and standing. Improved strength by 1 grade all muscle groups. LTG Duration 04/29/21 Assessment Summary Assessment O2 sats 98%, pulse 64, BP 138 /88 after ambulation. Patient took 1 Nitroglycerine during treatment due to c/o pain between shoulder blades and education on atypical presentation of cardiac pain in women; reported improved pain after Nitoglycerine. Improved 2 min walk test today . Physical Therapy Plan Frequency and Duration Frequency of Treatment 2x/Week Duration of Treatment 12 weeks Plan of Care Start Date 01/29/21 Plan of Care End Date 04/29/21 Therapeutic Interventions Therapeutic Interventions Gait Training,Home Exercise Program,Neuromuscular Re- education,Patient/Caregiver Education,Self-Care/Home Management,Soft Tissue Mobilization,Taping, Therapeutic Activities, Therapeutic Exercises Modalities Electric Stimulation Next Visit Focus/Plan Next Note Type Treatment Note Next Visit Plan Continue gentle progression of ther ex as tolerated to improve strength and functional activity tolerance, gait, and ability to self- manage with ther ex, pending any other recommendations from medical policy specialist.
--- NOTE | 2021-02-21 16:46 | PT.OTN ---
Current Diagnoses Other specified polyneuropathies (02/21/21) Weakness (02/21/21) History of falling (02/21/21) Dependence on other enabling machines and devices (02/21/21) Physical Therapy Treatment Note PT-OP-A Visit Information Start: 01/27/21 08:16 Freq: Status: Active Protocol: Document 02/21/21 16:39 SAK (Rec: 02/21/21 16:46 SAK [id number]) Out-Patient Physical Therapy Visit Information Visit Information Visit Type Treatment Note Visit Start Time 15:15 Visit Stop Time 16:00 Total Visit Minutes 45 Visit Number 5 Precautions Precautions Has nitroglycerin to take if chest pain. PT-OP-B Current Condition Start: 01/27/21 08:16 Freq: Status: Active Protocol: Document 02/21/21 16:39 SAK (Rec: 02/21/21 16:46 [facility] [id number]) Current Condition History of Current Condition Onset Date 4 yrs Current Complaints fatigue, weakness, still no neuro diagnosis, cardiac diagnosis History of Current Condition Gradual progressive weakness, SOB and exercise intolerance and excess fatigue started using cane May 2017. Since that time has been seeing specialists and having tests with diagnosis of possible indeterminate type of muscular dystrophy vs small fiber polyneuropathy . Since last seen in PT 11/12/20 reports has had a harder time getting around physically, no longer able to use cane at night, uses 4WW, also uses portable folding electric wheelchair at times, more than she used to. Occasionally has to use electric wheelchair in the house. Moving less because it's harder to do, reports had an episode where she stayed in bed for 4 days only getting up to go to bathroom and didn't have energy to shower. Had chest pain since last seen, went to ER, had angiogram, no blockages, other tests as below. Diagnosed last week with CAD and diastolic dysfunction. States doctor told her she is candidate for heart attack within 5 years even with medication. Was started on Furosemide, and 1x day long acting nitroglycerine . Carries regular nitro. Has more tingling in her legs, aching, feel weak. Won't walk with cane without holding onto someone or something. Has to pay more attention to posture . Has tipped into wall or dresser, not fallen fully to floor. Prior Treatments and Tests Angiogram [place] [facility] CT Medically-induced stress test all over past month. No conclusive diagnosis related to neuro symptoms; MG vs small fiber polyneuropathy Future Testing and Treatments Planned No tests planned at this point . February 07 at [facility] with Dr. Ramirez. May be transferring care to Dr Stone Angela at [facility]. PT-OP-C Subjective Start: 01/27/21 08:16 Freq: Status: Active Protocol: Document 02/21/21 16:39 SAK (Rec: 02/21/21 16:46 SAK [id number]) OP-PT Subjective Patient Comments Patient Comments Saw refinery operator helper cracking unit in [place] , no changes to treatment plan made but mentioned microvascular refinery operator helper cracking unit specialist she may refer her to. Reported heart racing at home, no chest pain. PT-OP-D Balance Start: 01/27/21 08:16 Freq: Status: Active Protocol: Document 01/28/21 13:47 SAK (Rec: 01/29/21 13:44 SAK [id number]) OP-PT Balance Assessment Sitting Balance Static Sitting Balance Ability Normal Dynamic Sitting Balance Ability Normal Standing Balance Static Standing Balance Ability Good Dynamic Standing Balance Ability Fair Balance Tests Other Other Balance Tests Performed not done today, ran out of time after patient interview, strength, ROM, and neuro testing. Patient fatigued Hebert Fall Scale Copyright Permission PT-OP-E Functional Tests Start: 01/27/21 08:16 Freq: Status: Active Protocol: Document 01/28/21 13:47 SAK (Rec: 01/29/21 13:44 SAK [id number]) Functional Tests 2 Minute Walk Test Distance 194 ft Device Used 4WW PT-OP-G Mobility & Gait Start: 01/27/21 08:16 Freq: Status: Active Protocol: Document 01/28/21 13:47 SAK (Rec: 01/29/21 13:44 SAK [id number]) OP Mobility Evaluation Bed Mobility Rolling indep, but labored Supine to and from Sit indep but but labored Transfers Sit to Stand slow, indep but labored Car Transfers SBA Floor Transfers not assessed due to fatigue Functional Movements Lifting and Carrying unable Squats fatiguing Running Assessment unaqble OP Gait Assessment Gait Gait Assistance Required: Independent Distance (Feet) 194 Able to Maintain Weight Bearing Status Yes During Gait Assistive Devices Assistive Device 4 Wheeled Walker Comments Gait Comments Trendelenberg left with increased lateral trunk flexion left and hip drop, limited by fatigues, SOB Stair Climbing Evaluation Comments Stair Climbing Comments not done today due to fatigue PT-OP-H Neuro Start: 01/27/21 08:16 Freq: Status: Active Protocol: Document 01/28/21 13:47 [facility] (Rec: 01/29/21 13:44 [facility] [id number]) Sensation Evaluation Gross Sensation Gross Sensation Right LE Impaired Sensation Description Numbness Comments Summary Comments min LT sensation right knee to toes c/o pins and needles sensation bilateral LE's at times. Deep Tendon Reflex & Clonus Assessment Deep Tendon Reflex Right Patellar Deep Tendon Reflex 0 Absent Left Patellar Deep Tendon Reflex 1+ Diminished Bilateral Achilles Deep Tendon Reflex 0 Absent Vital Signs Comments Vital Signs Comments BP 154/90 after physical eval, not taken at beginning of session; plan to monitor at least 2x at beginning and during subsequent PT-OP-K Range of Motion Start: 01/27/21 08:16 Freq: Status: Active Protocol: Document 01/28/21 13:47 [facility] (Rec: 01/29/21 13:44 [facility] [id number]) Cervical Spine Range of Motion Cervical Spine Active Comments WNL Shoulder Goniometric Range of Motion Shoulder León Shoulder ROM WFL Yes Hip Goniometric Range of Motion Hip león Straight Leg Raise 55 Internal Rotation 40 External Rotation 50 Comments patient requires assist for SLR Hip ROM Limitations Hip ROM Limitations Soft Tissue Tightness,Muscle Weakness Knee Goniometric Range of Motion Knee león Knee ROM WFL Yes Ankle and Foot Goniometric Range of Motion Ankle and Foot león Dorsiflexion with Knee Flexed 5 Dorsiflexion with Knee Extended 0 Ankle and Foot ROM Limitations ROM Limitations Soft Tissue Tightness PT-OP-M Strength Start: 01/27/21 08:16 Freq: Status: Active Protocol: Document 01/28/21 13:47 [facility] (Rec: 01/29/21 17:01 [facility] [id number]) Shoulder Strength Shoulder Manual Muscle Testing león Flexion 4+ Good+ Extension 4+ Good+ Abduction (C5) 4+ Good+ External Rotation 4+ Good+ Internal Rotation 4+ Good+ Elbow/Forearm Strength Elbow and Forearm Manual Muscle Testing león Flexion (C6) 4+ Good+ Extension (C7) 4+ Good+ Hip Strength Hip Manual Muscle Testing Right Flexion (L2) 4- Good- Extension (S1) 3+ Fair+ Abduction 3+ Fair+ External Rotation 3+ Fair+ Internal Rotation 3+ Fair+ Left Flexion (L2) 3+ Fair+ Extension (S1) 4- Good- Abduction 3+ Fair+ External Rotation 4- Good- Internal Rotation 4- Good- Knee Strength Knee Manual Muscle Testing Right Flexion (S2) 3+ Fair+ Extension (L3) 4 Good Left Flexion (S2) 4- Good- Extension (L3) 4 Good Ankle/Foot Strength Ankle and Foot Manual Muscle Testing Right Dorsiflexion (L4) 4 Good Plantarflexion (S1) 3+ Fair+ Left Dorsiflexion (L4) 4 Good Plantarflexion (S1) 1 Trace PT-OP-Q Treatments Start: 01/27/21 08:16 Freq: Status: Active Protocol: Document 02/21/21 16:39 [facility] (Rec: 02/21/21 16:46 [facility] [id number]) Gym Equipment Shuttle Balance 2 Details chains red Comments bal and wt shift fwd/bck, side to side Therapeutic Exercises Sitting Exercises deep breathing Reps/Minutes 6 min Comments cues for breathing through nose, longer exhale than inhale pulleys Reps/Minutes 10x fwd, 10x lateral Standing Exercises wall posture Reps/Minutes 1x20 Therapeutic Activity Therapeutic Activity 1 Name 2 min walk test Reps/Minutes 2 min Comments 324 ft Gait Training Gait Activity gait Description fwd Device Used 4WW Level of Assistance SBA, cues Surface firm Distance/Duration 20x4 Treatment Focus pacing, controlled breathing Self-Care/Home Management Treatment Education Patient Education Home Exercise Program Other Education wall posture controlled breathing in/out through nose with longer exhale review PT-OP-T Assessment and Plan Start: 01/27/21 08:16 Freq: Status: Active Protocol: Document 02/21/21 16:39 [facility] (Rec: 02/21/21 16:46 [facility] [id number]) Physical Therapy Assessment Goals Four Impairment excess fatigue with activity Short Term Goal (STG) Patient to be instructed in energy conservation and pacing . STG Duration 02/28/21 Cook Chef Goal (LTG) Patient to demonstrate good understanding and compliance with energy conservation measures and pacing of her activity. LTG Duration 04/29/21 Three Impairment Activities-Specific Balance Confidence scale 50% Fdc Goal (LTG) improve ABC scale to at least 65% as measure of improved confidence in her mobility to allow more functional independence in her daily life . LTG Duration 04/29/21 Two Impairment limited gait tolerance, requires use of 4WW or power w /c Impairment fatigued after 2 min ambulation, Trendelenberg gait Short Term Goal (STG) Patient able to ambulate for 4 min without excess fatigue with 4WW. STG Duration 02/28/21 Cook Chef Goal (LTG) Patient able to ambulate without compensatory Trendelenberg gait pattern for at least 6 min with 4WW as measure of improved ability to perform short distance community mobility. LTG Duration 04/29/21 One Impairment weakness bilateral LE's Short Term Goal (STG) Patient to be instructed in HEP for LE strengthening supine, sitting, standing depending on tolerance. Improve muscle strength 1/2 grade all muscle groups STG Duration 02/28/21 Cook Chef Goal (LTG) Patient to be independent and compliant with HEP for purposes of LE strengthening, including options for supine, sitting, and standing. Improved strength by 1 grade all muscle groups. LTG Duration 04/29/21 Assessment Summary Assessment increased activity tolerance today. HR 88 and O2 sats 98. Patient reporting most limited by SOB, but does agree that physically tolerating a little more. Needs frequent cues for controlled breathing, abdominal and lateral chest. Physical Therapy Plan Frequency and Duration Frequency of Treatment 2x/Week Duration of Treatment 12 weeks Plan of Care Start Date 01/29/21 Plan of Care End Date 04/29/21 Therapeutic Interventions Therapeutic Interventions Gait Training,Home Exercise Program,Neuromuscular Re- education,Patient/Caregiver Education,Self-Care/Home Management,Soft Tissue Mobilization,Taping, Therapeutic Activities, Therapeutic Exercises Modalities Electric Stimulation Next Visit Focus/Plan Next Note Type Treatment Note Next Visit Plan Continue gentle progression of ther ex as tolerated to improve strength and functional activity tolerance, gait, and ability to self- manage with ther ex.
--- NOTE | 2021-02-25 09:01 | PT.OTN ---
Current Diagnoses Other specified polyneuropathies (02/25/21) Weakness (02/25/21) History of falling (02/25/21) Dependence on other enabling machines and devices (02/25/21) Physical Therapy Treatment Note PT-OP-A Visit Information Start: 01/27/21 08:16 Freq: Status: Active Protocol: Document 02/25/21 08:15 SAK (Rec: 02/25/21 09:01 SAK [id number]) Out-Patient Physical Therapy Visit Information Visit Information Visit Type Treatment Note Visit Start Time 08:15 Visit Stop Time 09:00 Total Visit Minutes 45 Visit Number 6 Precautions Precautions Has nitroglycerin to take if chest pain. PT-OP-B Current Condition Start: 01/27/21 08:16 Freq: Status: Active Protocol: Document 02/25/21 08:15 SAK (Rec: 02/25/21 09:01 SAK [id number]) Current Condition History of Current Condition Onset Date 4 yrs Current Complaints fatigue, weakness, still no neuro diagnosis, cardiac diagnosis History of Current Condition Gradual progressive weakness, SOB and exercise intolerance and excess fatigue started using cane May 2017. Since that time has been seeing specialists and having tests with diagnosis of possible indeterminate type of muscular dystrophy vs small fiber polyneuropathy . Since last seen in PT 11/12/20 reports has had a harder time getting around physically, no longer able to use cane at night, uses 4WW, also uses portable folding electric wheelchair at times, more than she used to. Occasionally has to use electric wheelchair in the house. Moving less because it's harder to do, reports had an episode where she stayed in bed for 4 days only getting up to go to bathroom and didn't have energy to shower. Had chest pain since last seen, went to ER, had angiogram, no blockages, other tests as below. Diagnosed last week with CAD and diastolic dysfunction. States doctor told her she is candidate for heart attack within 5 years even with medication. Was started on Furosemide, and 1x day long acting nitroglycerine . Carries regular nitro. Has more tingling in her legs, aching, feel weak. Won't walk with cane without holding onto someone or something. Has to pay more attention to posture . Has tipped into wall or dresser, not fallen fully to floor. Prior Treatments and Tests Angiogram [place] [facility] Medically-induced stress test all over past month. No conclusive diagnosis related to neuro symptoms; MG vs small fiber polyneuropathy Future Testing and Treatments Planned No tests planned at this point . February 07 at [facility] with Dr. Ramirez. May be transferring care to Dr Stone Angela at [facility]. Treatment Goals Patient/Caregiver Goals Wants to be able to drive herself short distances 1/2 to 1 mile in the community. Feels like it takes so much energy. Hasn't used her exercise bike. Has stopped taking Mestinon; feels SOB worse since heart thing, doesn 't feel Mestinon was helping the mobility. PT-OP-C Subjective Start: 01/27/21 08:16 Freq: Status: Active Protocol: Document 02/25/21 08:15 SAK (Rec: 02/25/21 09:01 SAK [id number]) OP-PT Subjective Patient Comments Patient Comments Reports working on breathing as instructed. Feels like today is a good day. Up to 6 minutes on ex bike, walking more outside. Looking at side effects of her medications, one of them talks about being used for myesthenia gravis Spironolactone (started it 10 days ago. Less tired after physical activity. PT-OP-D Balance Start: 01/27/21 08:16 Freq: Status: Active Protocol: Document 01/28/21 13:47 SAK (Rec: 01/29/21 13:44 [facility] [id number]) OP-PT Balance Assessment Sitting Balance Static Sitting Balance Ability Normal Dynamic Sitting Balance Ability Normal Standing Balance Static Standing Balance Ability Good Dynamic Standing Balance Ability Fair Balance Tests Other Other Balance Tests Performed not done today, ran out of time after patient interview, strength, ROM, and neuro testing. Patient fatigued Hebert Fall Scale Copyright Permission PT-OP-E Functional Tests Start: 01/27/21 08:16 Freq: Status: Active Protocol: Document 01/28/21 13:47 SAK (Rec: 01/29/21 13:44 SAK [id number]) Functional Tests 2 Minute Walk Test Distance 194 ft Device Used 4WW PT-OP-G Mobility & Gait Start: 01/27/21 08:16 Freq: Status: Active Protocol: Document 01/28/21 13:47 SAK (Rec: 01/29/21 13:44 SAK [id number]) OP Mobility Evaluation Bed Mobility Rolling indep, but labored Supine to and from Sit indep but but labored Transfers Sit to Stand slow, indep but labored Car Transfers SBA Floor Transfers not assessed due to fatigue Functional Movements Lifting and Carrying unable Squats fatiguing Running Assessment unaqble OP Gait Assessment Gait Gait Assistance Required: Independent Distance (Feet) 194 Able to Maintain Weight Bearing Status Yes During Gait Assistive Devices Assistive Device 4 Wheeled Walker Comments Gait Comments Trendelenberg left with increased lateral trunk flexion left and hip drop, limited by fatigues, SOB Stair Climbing Evaluation Comments Stair Climbing Comments not done today due to fatigue PT-OP-H Neuro Start: 01/27/21 08:16 Freq: Status: Active Protocol: Document 01/28/21 13:47 [facility] (Rec: 01/29/21 13:44 [facility] [id number]) Sensation Evaluation Gross Sensation Gross Sensation Right LE Impaired Sensation Description Numbness Comments Summary Comments min LT sensation right knee to toes c/o pins and needles sensation bilateral LE's at times. Deep Tendon Reflex & Clonus Assessment Deep Tendon Reflex Right Patellar Deep Tendon Reflex 0 Absent Left Patellar Deep Tendon Reflex 1+ Diminished Bilateral Achilles Deep Tendon Reflex 0 Absent Vital Signs Comments Vital Signs Comments BP 154/90 after physical eval, not taken at beginning of session; plan to monitor at least 2x at beginning and during subsequent PT-OP-K Range of Motion Start: 01/27/21 08:16 Freq: Status: Active Protocol: Document 01/28/21 13:47 [facility] (Rec: 01/29/21 13:44 [facility] [id number]) Cervical Spine Range of Motion Cervical Spine Active Comments WNL Shoulder Goniometric Range of Motion Shoulder León Shoulder ROM WFL Yes Hip Goniometric Range of Motion Hip león Straight Leg Raise 55 Internal Rotation 40 External Rotation 50 Comments patient requires assist for SLR Hip ROM Limitations Hip ROM Limitations Soft Tissue Tightness,Muscle Weakness Knee Goniometric Range of Motion Knee león Knee ROM WFL Yes Ankle and Foot Goniometric Range of Motion Ankle and Foot león Dorsiflexion with Knee Flexed 5 Dorsiflexion with Knee Extended 0 Ankle and Foot ROM Limitations ROM Limitations Soft Tissue Tightness PT-OP-M Strength Start: 01/27/21 08:16 Freq: Status: Active Protocol: Document 01/28/21 13:47 [facility] (Rec: 01/29/21 17:01 [facility] [id number]) Shoulder Strength Shoulder Manual Muscle Testing león Flexion 4+ Good+ Extension 4+ Good+ Abduction (C5) 4+ Good+ External Rotation 4+ Good+ Internal Rotation 4+ Good+ Elbow/Forearm Strength Elbow and Forearm Manual Muscle Testing lóen Flexion (C6) 4+ Good+ Extension (C7) 4+ Good+ Hip Strength Hip Manual Muscle Testing Right Flexion (L2) 4- Good- Extension (S1) 3+ Fair+ Abduction 3+ Fair+ External Rotation 3+ Fair+ Internal Rotation 3+ Fair+ Left Flexion (L2) 3+ Fair+ Extension (S1) 4- Good- Abduction 3+ Fair+ External Rotation 4- Good- Internal Rotation 4- Good- Knee Strength Knee Manual Muscle Testing Right Flexion (S2) 3+ Fair+ Extension (L3) 4 Good Left Flexion (S2) 4- Good- Extension (L3) 4 Good Ankle/Foot Strength Ankle and Foot Manual Muscle Testing Right Dorsiflexion (L4) 4 Good Plantarflexion (S1) 3+ Fair+ Left Dorsiflexion (L4) 4 Good Plantarflexion (S1) 1 Trace PT-OP-Q Treatments Start: 01/27/21 08:16 Freq: Status: Active Protocol: Document 02/25/21 08:15 [facility] (Rec: 02/25/21 09:01 [facility] [id number]) Gym Equipment Shuttle Balance 2 Details chains red Comments bal and wt shift fwd/bck, side to side 1 Details chains blue Comments bal WBOS side to side bal balloon volleyball Therapeutic Exercises Sitting Exercises bicep curls Resistance 1# león Reps/Minutes 5x deep breathing Reps/Minutes 6 min Comments cues for breathing through nose, longer exhale than inhale pulleys Reps/Minutes 10x fwd, 10x lateral Standing Exercises wall posture Reps/Minutes 1x20 Therapeutic Activity Therapeutic Activity 1 Name 2 min walk test Reps/Minutes 2 min Comments 349 ft Gait Training Gait Activity gait with SPC Device Used SPC Surface firm Distance/Duration 50,25 Treatment Focus safety, gait sequencing gait Description fwd Device Used 4WW Level of Assistance SBA, cues Surface firm Distance/Duration 20x4 Treatment Focus pacing, controlled breathing Self-Care/Home Management Treatment Education Other Education wall posture controlled breathing in/out through nose with longer exhale review PT-OP-T Assessment and Plan Start: 01/27/21 08:16 Freq: Status: Active Protocol: Document 02/25/21 08:15 [facility] (Rec: 02/25/21 09:01 [facility] [id number]) Physical Therapy Assessment Goals Four Impairment excess fatigue with activity Short Term Goal (STG) Patient to be instructed in energy conservation and pacing . STG Duration 02/28/21 Sensitizer Goal (LTG) Patient to demonstrate good understanding and compliance with energy conservation measures and pacing of her activity. LTG Duration 04/29/21 Three Impairment Activities-Specific Balance Confidence scale 50% Snf Goal (LTG) improve ABC scale to at least 65% as measure of improved confidence in her mobility to allow more functional independence in her daily life . LTG Duration 04/29/21 Two Impairment limited gait tolerance, requires use of 4WW or power w /c Impairment fatigued after 2 min ambulation, Trendelenberg gait Short Term Goal (STG) Patient able to ambulate for 4 min without excess fatigue with 4WW. STG Duration 02/28/21 Snf Goal (LTG) Patient able to ambulate without compensatory Trendelenberg gait pattern for at least 6 min with 4WW as measure of improved ability to perform short distance community mobility. LTG Duration 04/29/21 One Impairment weakness bilateral LE's Short Term Goal (STG) Patient to be instructed in HEP for LE strengthening supine, sitting, standing depending on tolerance. Improve muscle strength 1/2 grade all muscle groups STG Duration 02/28/21 Sensitizer Goal (LTG) Patient to be independent and compliant with HEP for purposes of LE strengthening, including options for supine, sitting, and standing. Improved strength by 1 grade all muscle groups. LTG Duration 04/29/21 Assessment Summary Assessment Improved distance with 2 min walk test to 349' with FWW. Improving awareness of breathing. Wall posture exercise fatiguing. No LOB with gait with SPC Physical Therapy Plan Frequency and Duration Frequency of Treatment 2x/Week Duration of Treatment 12 weeks Plan of Care Start Date 01/29/21 Plan of Care End Date 04/29/21 Therapeutic Interventions Therapeutic Interventions Gait Training,Home Exercise Program,Neuromuscular Re- education,Patient/Caregiver Education,Self-Care/Home Management,Soft Tissue Mobilization,Taping, Therapeutic Activities, Therapeutic Exercises Modalities Electric Stimulation Next Visit Focus/Plan Next Note Type Treatment Note Next Visit Plan Add L1 TB row ex, further ex progression as tolerated.
--- NOTE | 2021-03-04 10:09 | PT.OTN ---
Current Diagnoses Other specified polyneuropathies (03/04/21) Weakness (03/04/21) History of falling (03/04/21) Dependence on other enabling machines and devices (03/04/21) Physical Therapy Treatment Note PT-OP-A Visit Information Start: 01/27/21 08:16 Freq: Status: Active Protocol: Document 03/04/21 08:59 SAK (Rec: 03/04/21 09:47 SAK [id number]) Out-Patient Physical Therapy Visit Information Visit Information Visit Type Treatment Note Visit Start Time 09:02 Visit Stop Time 09:45 Total Visit Minutes 43 Visit Number 7 PT-OP-B Current Condition Start: 01/27/21 08:16 Freq: Status: Active Protocol: Document 03/04/21 08:59 SAK (Rec: 03/04/21 09:47 SAK [id number]) Current Condition History of Current Condition Onset Date 4 yrs Current Complaints fatigue, weakness, still no neuro diagnosis, cardiac diagnosis History of Current Condition Gradual progressive weakness, SOB and exercise intolerance and excess fatigue started using cane May 2017. Since that time has been seeing specialists and having tests with diagnosis of possible indeterminate type of muscular dystrophy vs small fiber polyneuropathy . Since last seen in PT 11/12/20 reports has had a harder time getting around physically, no longer able to use cane at night, uses 4WW, also uses portable folding electric wheelchair at times, more than she used to. Occasionally has to use electric wheelchair in the house. Moving less because it's harder to do, reports had an episode where she stayed in bed for 4 days only getting up to go to bathroom and didn't have energy to shower. Had chest pain since last seen, went to ER, had angiogram, no blockages, other tests as below. Diagnosed last week with CAD and diastolic dysfunction. States doctor told her she is candidate for heart attack within 5 years even with medication. Was started on Furosemide, and 1x day long acting nitroglycerine . Carries regular nitro. Has more tingling in her legs, aching, feel weak. Won't walk with cane without holding onto someone or something. Has to pay more attention to posture . Has tipped into wall or dresser, not fallen fully to floor. Prior Treatments and Tests Angiogram [place] [facility] Medically-induced stress test all over past month. No conclusive diagnosis related to neuro symptoms; MG vs small fiber polyneuropathy Future Testing and Treatments Planned No tests planned at this point . February 07 at [facility] with Dr. Ramirez. May be transferring care to Dr Stone Angela at [facility]. Treatment Goals Patient/Caregiver Goals Wants to be able to drive herself short distances 1/2 to 1 mile in the community. Feels like it takes so much energy. Hasn't used her exercise bike. Has stopped taking Mestinon; feels SOB worse since heart thing, doesn 't feel Mestinon was helping the mobility. Saw Dr. He at [facility] for a neurology appointment, did work-up for Parkinson's which was negative . PT-OP-C Subjective Start: 01/27/21 08:16 Freq: Status: Active Protocol: Document 03/04/21 08:59 SAK (Rec: 03/04/21 09:47 SAK [id number]) OP-PT Subjective Patient Comments Patient Comments really paying attention to breathing and finds it helpful . Walking a little more outside. Hasn't started taking statin medication yet due to concerns over musculoskeletal pain. Not sure how she'll do today due to having company over the weekend and doing a little housework. Feels some achiness in her joints. Wants to work on walking without walker, thinks maybe due to being lopsided. Asked for referral to specialist in women's diastolic heart dysfunction. Her neurologist sent information to [facility], waiting to hear back. Considering [facility]. BP coming down nicely, HR more stable. Doing a fair bit walking in the house without assistive device , more fatiguing. Waiting to get into cardiac rehab. PT-OP-D Balance Start: 01/27/21 08:16 Freq: Status: Active Protocol: Document 01/28/21 13:47 SAK (Rec: 01/29/21 13:44 SAK [id number]) OP-PT Balance Assessment Sitting Balance Static Sitting Balance Ability Normal Dynamic Sitting Balance Ability Normal Standing Balance Static Standing Balance Ability Good Dynamic Standing Balance Ability Fair Balance Tests Other Other Balance Tests Performed not done today, ran out of time after patient interview, strength, ROM, and neuro testing. Patient fatigued Hebert Fall Scale Copyright Permission PT-OP-E Functional Tests Start: 01/27/21 08:16 Freq: Status: Active Protocol: Document 01/28/21 13:47 [facility] (Rec: 01/29/21 13:44 [facility] [id number]) Functional Tests 2 Minute Walk Test Distance 194 ft Device Used 4WW PT-OP-G Mobility & Gait Start: 01/27/21 08:16 Freq: Status: Active Protocol: Document 01/28/21 13:47 SAK (Rec: 01/29/21 13:44 [facility] [id number]) OP Mobility Evaluation Bed Mobility Rolling indep, but labored Supine to and from Sit indep but but labored Transfers Sit to Stand slow, indep but labored Car Transfers SBA Floor Transfers not assessed due to fatigue Functional Movements Lifting and Carrying unable Squats fatiguing Running Assessment unaqble OP Gait Assessment Gait Gait Assistance Required: Independent Distance (Feet) 194 Able to Maintain Weight Bearing Status Yes During Gait Assistive Devices Assistive Device 4 Wheeled Walker Comments Gait Comments Trendelenberg left with increased lateral trunk flexion left and hip drop, limited by fatigues, SOB Stair Climbing Evaluation Comments Stair Climbing Comments not done today due to fatigue PT-OP-H Neuro Start: 01/27/21 08:16 Freq: Status: Active Protocol: Document 01/28/21 13:47 [facility] (Rec: 01/29/21 13:44 [facility] [id number]) Sensation Evaluation Gross Sensation Gross Sensation Right LE Impaired Sensation Description Numbness Comments Summary Comments min LT sensation right knee to toes c/o pins and needles sensation bilateral LE's at times. Deep Tendon Reflex & Clonus Assessment Deep Tendon Reflex Right Patellar Deep Tendon Reflex 0 Absent Left Patellar Deep Tendon Reflex 1+ Diminished Bilateral Achilles Deep Tendon Reflex 0 Absent Vital Signs Comments Vital Signs Comments BP 154/90 after physical eval, not taken at beginning of session; plan to monitor at least 2x at beginning and during subsequent PT-OP-K Range of Motion Start: 01/27/21 08:16 Freq: Status: Active Protocol: Document 01/28/21 13:47 [facility] (Rec: 01/29/21 13:44 [facility] [id number]) Cervical Spine Range of Motion Cervical Spine Active Comments WNL Shoulder Goniometric Range of Motion Shoulder León Shoulder ROM WFL Yes Hip Goniometric Range of Motion Hip león Straight Leg Raise 55 Internal Rotation 40 External Rotation 50 Comments patient requires assist for SLR Hip ROM Limitations Hip ROM Limitations Soft Tissue Tightness,Muscle Weakness Knee Goniometric Range of Motion Knee león Knee ROM WFL Yes Ankle and Foot Goniometric Range of Motion Ankle and Foot león Dorsiflexion with Knee Flexed 5 Dorsiflexion with Knee Extended 0 Ankle and Foot ROM Limitations ROM Limitations Soft Tissue Tightness PT-OP-M Strength Start: 01/27/21 08:16 Freq: Status: Active Protocol: Document 01/28/21 13:47 [facility] (Rec: 01/29/21 17:01 [facility] [id number]) Shoulder Strength Shoulder Manual Muscle Testing león Flexion 4+ Good+ Extension 4+ Good+ Abduction (C5) 4+ Good+ External Rotation 4+ Good+ Internal Rotation 4+ Good+ Elbow/Forearm Strength Elbow and Forearm Manual Muscle Testing león Flexion (C6) 4+ Good+ Extension (C7) 4+ Good+ Hip Strength Hip Manual Muscle Testing Right Flexion (L2) 4- Good- Extension (S1) 3+ Fair+ Abduction 3+ Fair+ External Rotation 3+ Fair+ Internal Rotation 3+ Fair+ Left Flexion (L2) 3+ Fair+ Extension (S1) 4- Good- Abduction 3+ Fair+ External Rotation 4- Good- Internal Rotation 4- Good- Knee Strength Knee Manual Muscle Testing Right Flexion (S2) 3+ Fair+ Extension (L3) 4 Good Left Flexion (S2) 4- Good- Extension (L3) 4 Good Ankle/Foot Strength Ankle and Foot Manual Muscle Testing Right Dorsiflexion (L4) 4 Good Plantarflexion (S1) 3+ Fair+ Left Dorsiflexion (L4) 4 Good Plantarflexion (S1) 1 Trace PT-OP-Q Treatments Start: 01/27/21 08:16 Freq: Status: Active Protocol: Document 03/04/21 08:59 [facility] (Rec: 03/04/21 09:47 [facility] [id number]) Gym Equipment Shuttle Balance 2 Details chains red Comments bal and wt shift fwd/bck, side to side Therapeutic Exercises Sitting Exercises deep breathing Reps/Minutes 6 min Comments cues for breathing through nose, longer exhale than inhale Therapeutic Activity Therapeutic Activity 1 Name 2 min walk test Reps/Minutes 2 min Comments 324 ft Gait Training Gait Activity gait level without device Description at wall bar Device Used none Level of Assistance SBA Surface firm Distance/Duration 2 laps x 2 Treatment Focus hip stability, safety Comments mirror for visual feedback, cues for gluteal activation no UE support PT-OP-T Assessment and Plan Start: 01/27/21 08:16 Freq: Status: Active Protocol: Document 03/04/21 08:59 [facility] (Rec: 03/04/21 09:47 [facility] [id number]) Physical Therapy Assessment Goals Four Impairment excess fatigue with activity Short Term Goal (STG) Patient to be instructed in energy conservation and pacing . STG Duration 02/28/21 Usp Goal (LTG) Patient to demonstrate good understanding and compliance with energy conservation measures and pacing of her activity. LTG Duration 04/29/21 Three Impairment Activities-Specific Balance Confidence scale 50% Usp Goal (LTG) improve ABC scale to at least 65% as measure of improved confidence in her mobility to allow more functional independence in her daily life . LTG Duration 04/29/21 Two Impairment limited gait tolerance, requires use of 4WW or power w /c Impairment fatigued after 2 min ambulation, Trendelenberg gait Short Term Goal (STG) Patient able to ambulate for 4 min without excess fatigue with 4WW. STG Duration 02/28/21 Usp Goal (LTG) Patient able to ambulate without compensatory Trendelenberg gait pattern for at least 6 min with 4WW as measure of improved ability to perform short distance community mobility. LTG Duration 04/29/21 One Impairment weakness bilateral LE's Short Term Goal (STG) Patient to be instructed in HEP for LE strengthening supine, sitting, standing depending on tolerance. Improve muscle strength 1/2 grade all muscle groups STG Duration 02/28/21 Usp Goal (LTG) Patient to be independent and compliant with HEP for purposes of LE strengthening, including options for supine, sitting, and standing. Improved strength by 1 grade all muscle groups. LTG Duration 04/29/21 Assessment Summary Assessment Shortened distance with 2 min walk today, left hip still noted with gait in front of mirror. Due to patient continued c/o feeling one leg longer than the other, looked at leg length. Right LE 1/4 inch shorter. Put 1/8 inch cork in right shoe. Physical Therapy Plan Next Visit Focus/Plan Next Note Type Treatment Note Next Visit Plan Add L1 TB row ex, further ex progression as tolerated. Evaluate response to cork in her right shoe. Sidestepping, SLS for hip strengthening and stability
--- NOTE | 2021-03-07 12:20 | PT.OTN ---
Current Diagnoses Other specified polyneuropathies (03/07/21) Weakness (03/07/21) History of falling (03/07/21) Dependence on other enabling machines and devices (03/07/21) Physical Therapy Treatment Note PT-OP-A Visit Information Start: 01/27/21 08:16 Freq: Status: Active Protocol: Document 03/07/21 08:14 SAK (Rec: 03/07/21 08:57 SAK [id number]) Out-Patient Physical Therapy Visit Information Visit Information Visit Type Treatment Note Visit Start Time 08:15 Visit Stop Time 09:00 Total Visit Minutes 45 Visit Number 8 Precautions Precautions Has nitroglycerin to take if chest pain. PT-OP-B Current Condition Start: 01/27/21 08:16 Freq: Status: Active Protocol: Document 03/07/21 08:14 SAK (Rec: 03/07/21 08:57 [facility] [id number]) Current Condition History of Current Condition Onset Date 4 yrs Current Complaints fatigue, weakness, still no neuro diagnosis, cardiac diagnosis History of Current Condition Gradual progressive weakness, SOB and exercise intolerance and excess fatigue started using cane May 2017. Since that time has been seeing specialists and having tests with diagnosis of possible indeterminate type of muscular dystrophy vs small fiber polyneuropathy . Since last seen in PT 11/12/20 reports has had a harder time getting around physically, no longer able to use cane at night, uses 4WW, also uses portable folding electric wheelchair at times, more than she used to. Occasionally has to use electric wheelchair in the house. Moving less because it's harder to do, reports had an episode where she stayed in bed for 4 days only getting up to go to bathroom and didn't have energy to shower. Had chest pain since last seen, went to ER, had angiogram, no blockages, other tests as below. Diagnosed last week with CAD and diastolic dysfunction. States doctor told her she is candidate for heart attack within 5 years even with medication. Was started on Furosemide, and 1x day long acting nitroglycerine . Carries regular nitro. Has more tingling in her legs, aching, feel weak. Won't walk with cane without holding onto someone or something. Has to pay more attention to posture . Has tipped into wall or dresser, not fallen fully to floor. Prior Treatments and Tests Angiogram [place] [facility] CT Medically-induced stress test all over past month. No conclusive diagnosis related to neuro symptoms; MG vs small fiber polyneuropathy Future Testing and Treatments Planned No tests planned at this point . February 07 at [facility] with Dr. Ramirez. May be transferring care to Dr Stone Angela at [facility]. Treatment Goals Patient/Caregiver Goals Wants to be able to drive herself short distances 1/2 to 1 mile in the community. Feels like it takes so much energy. Hasn't used her exercise bike. Has stopped taking Mestinon; feels SOB worse since heart thing, doesn 't feel Mestinon was helping the mobility. Saw Dr. He at [facility] for a neurology appointment, did work-up for Parkinson's which was negative . PT-OP-C Subjective Start: 01/27/21 08:16 Freq: Status: Active Protocol: Document 03/07/21 08:14 SAK (Rec: 03/07/21 08:57 SAK [id number]) OP-PT Subjective Patient Comments Patient Comments fatigued today due to more walking yesterday due to having company, used walker and cane (holding onto someone when using cane. Kota feels helpful in her shoe. Called cardiac rehab, near top of waiting list, anticipating end of March or first april. SOB feels a little improved. Energy level a little improved. Feels medication as well as focus on breathing helping. Was given referral to microvascular testing. PT-OP-D Balance Start: 01/27/21 08:16 Freq: Status: Active Protocol: Document 01/28/21 13:47 SAK (Rec: 01/29/21 13:44 SAK [id number]) OP-PT Balance Assessment Sitting Balance Static Sitting Balance Ability Normal Dynamic Sitting Balance Ability Normal Standing Balance Static Standing Balance Ability Good Dynamic Standing Balance Ability Fair Balance Tests Other Other Balance Tests Performed not done today, ran out of time after patient interview, strength, ROM, and neuro testing. Patient fatigued Hebert Fall Scale Copyright Permission PT-OP-E Functional Tests Start: 01/27/21 08:16 Freq: Status: Active Protocol: Document 01/28/21 13:47 SAK (Rec: 01/29/21 13:44 SAK [id number]) Functional Tests 2 Minute Walk Test Distance 194 ft Device Used 4WW PT-OP-G Mobility & Gait Start: 01/27/21 08:16 Freq: Status: Active Protocol: Document 01/28/21 13:47 [facility] (Rec: 01/29/21 13:44 [facility] [id number]) OP Mobility Evaluation Bed Mobility Rolling indep, but labored Supine to and from Sit indep but but labored Transfers Sit to Stand slow, indep but labored Car Transfers SBA Floor Transfers not assessed due to fatigue Functional Movements Lifting and Carrying unable Squats fatiguing Running Assessment unaqble OP Gait Assessment Gait Gait Assistance Required: Independent Distance (Feet) 194 Able to Maintain Weight Bearing Status Yes During Gait Assistive Devices Assistive Device 4 Wheeled Walker Comments Gait Comments Trendelenberg left with increased lateral trunk flexion left and hip drop, limited by fatigues, SOB Stair Climbing Evaluation Comments Stair Climbing Comments not done today due to fatigue PT-OP-H Neuro Start: 01/27/21 08:16 Freq: Status: Active Protocol: Document 01/28/21 13:47 [facility] (Rec: 01/29/21 13:44 [facility] [id number]) Sensation Evaluation Gross Sensation Gross Sensation Right LE Impaired Sensation Description Numbness Comments Summary Comments min LT sensation right knee to toes c/o pins and needles sensation bilateral LE's at times. Deep Tendon Reflex & Clonus Assessment Deep Tendon Reflex Right Patellar Deep Tendon Reflex 0 Absent Left Patellar Deep Tendon Reflex 1+ Diminished Bilateral Achilles Deep Tendon Reflex 0 Absent Vital Signs Comments Vital Signs Comments BP 154/90 after physical eval, not taken at beginning of session; plan to monitor at least 2x at beginning and during subsequent PT-OP-K Range of Motion Start: 01/27/21 08:16 Freq: Status: Active Protocol: Document 01/28/21 13:47 [facility] (Rec: 01/29/21 13:44 [facility] [id number]) Cervical Spine Range of Motion Cervical Spine Active Comments WNL Shoulder Goniometric Range of Motion Shoulder Girma Shoulder ROM WFL Yes Hip Goniometric Range of Motion Hip girma Straight Leg Raise 55 Internal Rotation 40 External Rotation 50 Comments patient requires assist for SLR Hip ROM Limitations Hip ROM Limitations Soft Tissue Tightness,Muscle Weakness Knee Goniometric Range of Motion Knee girma Knee ROM WFL Yes Ankle and Foot Goniometric Range of Motion Ankle and Foot girma Dorsiflexion with Knee Flexed 5 Dorsiflexion with Knee Extended 0 Ankle and Foot ROM Limitations ROM Limitations Soft Tissue Tightness PT-OP-M Strength Start: 01/27/21 08:16 Freq: Status: Active Protocol: Document 01/28/21 13:47 [facility] (Rec: 01/29/21 17:01 [facility] [id number]) Shoulder Strength Shoulder Manual Muscle Testing girma Flexion 4+ Good+ Extension 4+ Good+ Abduction (C5) 4+ Good+ External Rotation 4+ Good+ Internal Rotation 4+ Good+ Elbow/Forearm Strength Elbow and Forearm Manual Muscle Testing girma Flexion (C6) 4+ Good+ Extension (C7) 4+ Good+ Hip Strength Hip Manual Muscle Testing Right Flexion (L2) 4- Good- Extension (S1) 3+ Fair+ Abduction 3+ Fair+ External Rotation 3+ Fair+ Internal Rotation 3+ Fair+ Left Flexion (L2) 3+ Fair+ Extension (S1) 4- Good- Abduction 3+ Fair+ External Rotation 4- Good- Internal Rotation 4- Good- Knee Strength Knee Manual Muscle Testing Right Flexion (S2) 3+ Fair+ Extension (L3) 4 Good Left Flexion (S2) 4- Good- Extension (L3) 4 Good Ankle/Foot Strength Ankle and Foot Manual Muscle Testing Right Dorsiflexion (L4) 4 Good Plantarflexion (S1) 3+ Fair+ Left Dorsiflexion (L4) 4 Good Plantarflexion (S1) 1 Trace PT-OP-Q Treatments Start: 01/27/21 08:16 Freq: Status: Active Protocol: Document 03/07/21 08:14 [facility] (Rec: 03/07/21 08:57 [facility] [id number]) Cardio Equipment Recumbent Elliptical (Biodex) Resistance 1 Seat Position 6 Other low RPM < 30 Gym Equipment Shuttle Balance 2 Details chains red Comments bal and wt shift fwd/bck, side to side Therapeutic Exercises Sitting Exercises deep breathing Reps/Minutes 1 min x 3 Comments cues for breathing through nose, longer exhale than inhale Standing Exercises sidestepping Reps/Minutes 10'x 2 Therapeutic Activity Therapeutic Activity 1 Name 2 min walk test Reps/Minutes 2 min Comments 345 ft Gait Training Gait Activity tandem gait Distance/Duration 10'x2 Treatment Focus balance, breathing Comments by wall bar for safety gait level without device Description at wall bar Device Used none Level of Assistance SBA Surface firm Distance/Duration 2 laps x 2 Treatment Focus hip stability, safety Comments mirror for visual feedback, cues for gluteal activation no UE support Self-Care/Home Management Treatment Education Other Education deep breathing: abdominal and ribcage walking program and ex bike; gentle progression PT-OP-T Assessment and Plan Start: 01/27/21 08:16 Freq: Status: Active Protocol: Document 03/07/21 08:14 [facility] (Rec: 03/07/21 08:57 [facility] [id number]) Physical Therapy Assessment Goals Four Impairment excess fatigue with activity Short Term Goal (STG) Patient to be instructed in energy conservation and pacing . STG Duration 02/28/21 Clasp Machine Operator Goal (LTG) Patient to demonstrate good understanding and compliance with energy conservation measures and pacing of her activity. LTG Duration 04/29/21 Three Impairment Activities-Specific Balance Confidence scale 50% [facility] Goal (LTG) improve ABC scale to at least 65% as measure of improved confidence in her mobility to allow more functional independence in her daily life . LTG Duration 04/29/21 Two Impairment limited gait tolerance, requires use of 4WW or power w /c Impairment fatigued after 2 min ambulation, Trendelenberg gait Short Term Goal (STG) Patient able to ambulate for 4 min without excess fatigue with 4WW. STG Duration 02/28/21 Clasp Machine Operator Goal (LTG) Patient able to ambulate without compensatory Trendelenberg gait pattern for at least 6 min with 4WW as measure of improved ability to perform short distance community mobility. LTG Duration 04/29/21 One Impairment weakness bilateral LE's Short Term Goal (STG) Patient to be instructed in HEP for LE strengthening supine, sitting, standing depending on tolerance. Improve muscle strength 1/2 grade all muscle groups STG Duration 02/28/21 Clasp Machine Operator Goal (LTG) Patient to be independent and compliant with HEP for purposes of LE strengthening, including options for supine, sitting, and standing. Improved strength by 1 grade all muscle groups. LTG Duration 04/29/21 Assessment Summary Assessment 2 min walk test 345 ft today despite fatigue from having company and more walking than typical, used cane some usually hanging on to . Able to use Biodecx for 6 min L1 Physical Therapy Plan Frequency and Duration Frequency of Treatment 2x/Week Duration of Treatment 12 weeks Plan of Care Start Date 01/29/21 Plan of Care End Date 04/29/21 Therapeutic Interventions Therapeutic Interventions Gait Training,Home Exercise Program,Neuromuscular Re- education,Patient/Caregiver Education,Self-Care/Home Management,Soft Tissue Mobilization,Taping, Therapeutic Activities, Therapeutic Exercises Modalities Electric Stimulation Next Visit Focus/Plan Next Note Type Treatment Note Next Visit Plan Evaluate response to Biodex. Add L1 TB row ex, further ex progression as tolerated. Evaluate response to cork in her right shoe. Sidestepping, SLS for hip strengthening and stability
--- NOTE | 2021-03-12 16:49 | PT.OTN ---
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 PT-OP-B Current Condition Start: 01/27/21 08:16 Freq: Status: Active Protocol: Document 03/12/21 09:00 [facility] (Rec: 03/12/21 09:46 [facility] [id number]) Current Condition History of Current Condition Onset Date 4 yrs Current Complaints fatigue, weakness, still no neuro diagnosis, cardiac diagnosis History of Current Condition Gradual progressive weakness, SOB and exercise intolerance and excess fatigue started using cane May 2017. Since that time has been seeing specialists and having tests with diagnosis of possible indeterminate type of muscular dystrophy vs small fiber polyneuropathy . Since last seen in PT 11/12/20 reports has had a harder time getting around physically, no longer able to use cane at night, uses 4WW, also uses portable folding electric wheelchair at times, more than she used to. Occasionally has to use electric wheelchair in the house. Moving less because it's harder to do, reports had an episode where she stayed in bed for 4 days only getting up to go to bathroom and didn't have energy to shower. Had chest pain since last seen, went to ER, had angiogram, no blockages, other tests as below. Diagnosed last week with CAD and diastolic dysfunction. States doctor told her she is candidate for heart attack within 5 years even with medication. Was started on Furosemide, and 1x day long acting nitroglycerine . Carries regular nitro. Has more tingling in her legs, aching, feel weak. Won't walk with cane without holding onto someone or something. Has to pay more attention to posture . Has tipped into wall or dresser, not fallen fully to floor. Prior Treatments and Tests Angiogram [place] [facility] Medically-induced stress test all over past month. No conclusive diagnosis related to neuro symptoms; MG vs small fiber polyneuropathy Future Testing and Treatments Planned No tests planned at this point . February 07 at [facility] with Dr. Ramirez. May be transferring care to Dr Stone Angela at [facility]. Treatment Goals Patient/Caregiver Goals Wants to be able to drive herself short distances 1/2 to 1 mile in the community. Feels like it takes so much energy. Hasn't used her exercise bike. Has stopped taking Mestinon; feels SOB worse since heart thing, doesn 't feel Mestinon was helping the mobility. Saw Dr. He at [facility] for a neurology appointment, did work-up for Parkinson's which was negative . PT-OP-C Subjective Start: 01/27/21 08:16 Freq: Status: Active Protocol: Document 03/12/21 09:00 [facility] (Rec: 03/12/21 09:46 [facility] [id number]) OP-PT Subjective Patient Comments Patient Comments Has appointment with new spot facer April 03 at [facility] [place] who has special interest in women's cardiology. Trying to walk more. Still working on breath management with activity and for stress control. PT-OP-D Balance Start: 01/27/21 08:16 Freq: Status: Active Protocol: Document 01/28/21 13:47 [facility] (Rec: 01/29/21 13:44 [facility] [id number]) OP-PT Balance Assessment Sitting Balance Static Sitting Balance Ability Normal Dynamic Sitting Balance Ability Normal Standing Balance Static Standing Balance Ability Good Dynamic Standing Balance Ability Fair Balance Tests Other Other Balance Tests Performed not done today, ran out of time after patient interview, strength, ROM, and neuro testing. Patient fatigued Hebert Fall Scale Copyright Permission PT-OP-E Functional Tests Start: 01/27/21 08:16 Freq: Status: Active Protocol: Document 01/28/21 13:47 [facility] (Rec: 01/29/21 13:44 [facility] [id number]) Functional Tests 2 Minute Walk Test Distance 194 ft Device Used 4WW PT-OP-G Mobility & Gait Start: 01/27/21 08:16 Freq: Status: Active Protocol: Document 01/28/21 13:47 [facility] (Rec: 01/29/21 13:44 [facility] [id number]) OP Mobility Evaluation Bed Mobility Rolling indep, but labored Supine to and from Sit indep but but labored Transfers Sit to Stand slow, indep but labored Car Transfers SBA Floor Transfers not assessed due to fatigue Functional Movements Lifting and Carrying unable Squats fatiguing Running Assessment unaqble OP Gait Assessment Gait Gait Assistance Required: Independent Distance (Feet) 194 Able to Maintain Weight Bearing Status Yes During Gait Assistive Devices Assistive Device 4 Wheeled Walker Comments Gait Comments Trendelenberg left with increased lateral trunk flexion left and hip drop, limited by fatigues, SOB Stair Climbing Evaluation Comments Stair Climbing Comments not done today due to fatigue PT-OP-H Neuro Start: 01/27/21 08:16 Freq: Status: Active Protocol: Document 01/28/21 13:47 [facility] (Rec: 01/29/21 13:44 [facility] [id number]) Sensation Evaluation Gross Sensation Gross Sensation Right LE Impaired Sensation Description Numbness Comments Summary Comments min LT sensation right knee to toes c/o pins and needles sensation bilateral LE's at times. Deep Tendon Reflex & Clonus Assessment Deep Tendon Reflex Right Patellar Deep Tendon Reflex 0 Absent Left Patellar Deep Tendon Reflex 1+ Diminished Bilateral Achilles Deep Tendon Reflex 0 Absent Vital Signs Comments Vital Signs Comments BP 154/90 after physical eval, not taken at beginning of session; plan to monitor at least 2x at beginning and during subsequent PT-OP-K Range of Motion Start: 01/27/21 08:16 Freq: Status: Active Protocol: Document 01/28/21 13:47 [facility] (Rec: 01/29/21 13:44 [facility] [id number]) Cervical Spine Range of Motion Cervical Spine Active Comments WNL Shoulder Goniometric Range of Motion Shoulder León Shoulder ROM WFL Yes Hip Goniometric Range of Motion Hip león Straight Leg Raise 55 Internal Rotation 40 External Rotation 50 Comments patient requires assist for SLR Hip ROM Limitations Hip ROM Limitations Soft Tissue Tightness,Muscle Weakness Knee Goniometric Range of Motion Knee león Knee ROM WFL Yes Ankle and Foot Goniometric Range of Motion Ankle and Foot león Dorsiflexion with Knee Flexed 5 Dorsiflexion with Knee Extended 0 Ankle and Foot ROM Limitations ROM Limitations Soft Tissue Tightness PT-OP-M Strength Start: 01/27/21 08:16 Freq: Status: Active Protocol: Document 01/28/21 13:47 [facility] (Rec: 01/29/21 17:01 [facility] [id number]) Shoulder Strength Shoulder Manual Muscle Testing león Flexion 4+ Good+ Extension 4+ Good+ Abduction (C5) 4+ Good+ External Rotation 4+ Good+ Internal Rotation 4+ Good+ Elbow/Forearm Strength Elbow and Forearm Manual Muscle Testing león Flexion (C6) 4+ Good+ Extension (C7) 4+ Good+ Hip Strength Hip Manual Muscle Testing Right Flexion (L2) 4- Good- Extension (S1) 3+ Fair+ Abduction 3+ Fair+ External Rotation 3+ Fair+ Internal Rotation 3+ Fair+ Left Flexion (L2) 3+ Fair+ Extension (S1) 4- Good- Abduction 3+ Fair+ External Rotation 4- Good- Internal Rotation 4- Good- Knee Strength Knee Manual Muscle Testing Right Flexion (S2) 3+ Fair+ Extension (L3) 4 Good Left Flexion (S2) 4- Good- Extension (L3) 4 Good Ankle/Foot Strength Ankle and Foot Manual Muscle Testing Right Dorsiflexion (L4) 4 Good Plantarflexion (S1) 3+ Fair+ Left Dorsiflexion (L4) 4 Good Plantarflexion (S1) 1 Trace PT-OP-Q Treatments Start: 01/27/21 08:16 Freq: Status: Active Protocol: Document 03/12/21 09:00 [facility] (Rec: 03/12/21 09:46 [facility] [id number]) Cardio Equipment Recumbent Elliptical ([employer]) Duration (Minutes) 7 Resistance 1 Seat Position 6 Other RPM 30 Therapeutic Exercises Sitting Exercises row, shld ext Resistance L1 TB Reps/Minutes 5x2 deep breathing Reps/Minutes 1 min x 3 Comments cues for breathing through nose, longer exhale than inhale Standing Exercises sidestepping Reps/Minutes 10'x 2 Comments empasis on slow, hip muscle activation for stability Therapeutic Activity Therapeutic Activity 1 Name 2 min walk test Reps/Minutes 2 min Comments 357 ft PT-OP-T Assessment and Plan Start: 01/27/21 08:16 Freq: Status: Active Protocol: Document 03/12/21 09:00 [facility] (Rec: 03/12/21 09:46 [facility] [id number]) Physical Therapy Assessment Goals Four Impairment excess fatigue with activity Short Term Goal (STG) Patient to be instructed in energy conservation and pacing . STG Duration 02/28/21 Laser Set Up Operator Goal (LTG) Patient to demonstrate good understanding and compliance with energy conservation measures and pacing of her activity. LTG Duration 04/29/21 Three Impairment Activities-Specific Balance Confidence scale 50% Long-Term Goal (LTG) improve ABC scale to at least 65% as measure of improved confidence in her mobility to allow more functional independence in her daily life . LTG Duration 04/29/21 Two Impairment limited gait tolerance, requires use of 4WW or power w /c Impairment fatigued after 2 min ambulation, Trendelenberg gait Short Term Goal (STG) Patient able to ambulate for 4 min without excess fatigue with 4WW. STG Duration 02/28/21 Long-Term Goal (LTG) Patient able to ambulate without compensatory Trendelenberg gait pattern for at least 6 min with 4WW as measure of improved ability to perform short distance community mobility. LTG Duration 04/29/21 One Impairment weakness bilateral LE's Short Term Goal (STG) Patient to be instructed in HEP for LE strengthening supine, sitting, standing depending on tolerance. Improve muscle strength 1/2 grade all muscle groups STG Duration 02/28/21 Laser Set Up Operator Goal (LTG) Patient to be independent and compliant with HEP for purposes of LE strengthening, including options for supine, sitting, and standing. Improved strength by 1 grade all muscle groups. LTG Duration 04/29/21 Assessment Summary Assessment Progressed to 7 min on Biodex, improving activity tolerance. BP 136/78, pulse 84 after walking. Improving activity tolerance, better awareness of breathing both at rest and with activity. Expressing frustration about her diagnosis taking so long, able to express this. Looking forward to seeing spot facer who specializes in women's heart health. Physical Therapy Plan Frequency and Duration Frequency of Treatment 2x/Week Duration of Treatment 12 weeks Plan of Care Start Date 01/29/21 Plan of Care End Date 04/29/21 Therapeutic Interventions Therapeutic Interventions Gait Training,Home Exercise Program,Neuromuscular Re- education,Patient/Caregiver Education,Self-Care/Home Management,Soft Tissue Mobilization,Taping, Therapeutic Activities, Therapeutic Exercises Modalities Electric Stimulation Next Visit Focus/Plan Next Note Type Treatment Note Next Visit Plan Continue to progress ther ex with monitoring of vital signs and perceived level of exertion. Guide progression of HEP.
--- NOTE | 2021-03-19 10:44 | PT.OTN ---
Current Diagnoses Other specified polyneuropathies (03/19/21) Weakness (03/19/21) History of falling (03/19/21) Dependence on other enabling machines and devices (03/19/21) Physical Therapy Treatment Note PT-OP-A Visit Information Start: 01/27/21 08:16 Freq: Status: Active Protocol: Document 03/19/21 09:02 SAK (Rec: 03/19/21 09:46 SAK [id number]) Out-Patient Physical Therapy Visit Information Visit Information Visit Type Treatment Note Visit Note BP 118/76 after walking, 122/ 70 after Sci-Fit 8 min Visit Start Time 09:01 Visit Stop Time 09:45 Total Visit Minutes 44 Visit Number 10 Precautions Precautions Has nitroglycerin to take if chest pain. PT-OP-B Current Condition Start: 01/27/21 08:16 Freq: Status: Active Protocol: Document 03/19/21 09:02 SAK (Rec: 03/19/21 09:46 SAK [id number]) Current Condition History of Current Condition Onset Date 4 yrs Current Complaints fatigue, weakness, still no neuro diagnosis, cardiac diagnosis History of Current Condition Gradual progressive weakness, SOB and exercise intolerance and excess fatigue started using cane May 2017. Since that time has been seeing specialists and having tests with diagnosis of possible indeterminate type of muscular dystrophy vs small fiber polyneuropathy . Since last seen in PT 11/12/20 reports has had a harder time getting around physically, no longer able to use cane at night, uses 4WW, also uses portable folding electric wheelchair at times, more than she used to. Occasionally has to use electric wheelchair in the house. Moving less because it's harder to do, reports had an episode where she stayed in bed for 4 days only getting up to go to bathroom and didn't have energy to shower. Had chest pain since last seen, went to ER, had angiogram, no blockages, other tests as below. Diagnosed last week with CAD and diastolic dysfunction. States doctor told her she is candidate for heart attack within 5 years even with medication. Was started on Furosemide, and 1x day long acting nitroglycerine . Carries regular nitro. Has more tingling in her legs, aching, feel weak. Won't walk with cane without holding onto someone or something. Has to pay more attention to posture . Has tipped into wall or dresser, not fallen fully to floor. Prior Treatments and Tests Angiogram [place] Coronary CT Medically-induced stress test all over past month. No conclusive diagnosis related to neuro symptoms; MG vs small fiber polyneuropathy Future Testing and Treatments Planned No tests planned at this point . February 07 at [facility] with Dr. Ramirez. May be transferring care to Dr Stone Angela at [facility]. Treatment Goals Patient/Caregiver Goals Wants to be able to drive herself short distances 1/2 to 1 mile in the community. Feels like it takes so much energy. Hasn't used her exercise bike. Has stopped taking Mestinon; feels SOB worse since heart thing, doesn 't feel Mestinon was helping the mobility. Saw Dr. He at [facility] for a neurology appointment, did work-up for Parkinson's which was negative . Prior Functional Status Baseline Function- ADL's Independent Baseline Function- Mobility Independent Baseline Function- Gait independent Baseline Function- Work/School no limitations Baseline Function- Recreation/Hobbies no limitations Current Functional Impairments (Reported) Functional Limitations- ADL's slow, exhausting Functional Limitations- Mobility/Gait uses 4WW primarily occasionally electric w/c Functional Limitations- Work/School unable Functional Limitations- Recreation/ not able to tolerate beyond Hobbies occasional reading or writing notes. PT-OP-C Subjective Start: 01/27/21 08:16 Freq: Status: Active Protocol: Document 03/19/21 09:02 [facility] (Rec: 03/19/21 09:46 [facility] [id number]) OP-PT Subjective Patient Comments Patient Comments SOB worse since last seen, in ER yesterday due to angina that wasn't inmproved with Nitroglycerine. Was more SOB, felt like lower legs were being squeezed but weren't swollen. Tests were run, nothing found. Working hard on breathing. Reports feeling very weak today. States balance machine has helped her , especially when feeling dizzy while at hospital yesterday. States gets nauseated prior to having angina. PT-OP-D Balance Start: 01/27/21 08:16 Freq: Status: Active Protocol: Document 01/28/21 13:47 [facility] (Rec: 01/29/21 13:44 [facility] [id number]) OP-PT Balance Assessment Sitting Balance Static Sitting Balance Ability Normal Dynamic Sitting Balance Ability Normal Standing Balance Static Standing Balance Ability Good Dynamic Standing Balance Ability Fair Balance Tests Other Other Balance Tests Performed not done today, ran out of time after patient interview, strength, ROM, and neuro testing. Patient fatigued Hebert Fall Scale Copyright Permission PT-OP-E Functional Tests Start: 01/27/21 08:16 Freq: Status: Active Protocol: Document 01/28/21 13:47 SAK (Rec: 01/29/21 13:44 [facility] [id number]) Functional Tests 2 Minute Walk Test Distance 194 ft Device Used 4WW PT-OP-G Mobility & Gait Start: 01/27/21 08:16 Freq: Status: Active Protocol: Document 01/28/21 13:47 SAK (Rec: 01/29/21 13:44 [facility] [id number]) OP Mobility Evaluation Bed Mobility Rolling indep, but labored Supine to and from Sit indep but but labored Transfers Sit to Stand slow, indep but labored Car Transfers SBA Floor Transfers not assessed due to fatigue Functional Movements Lifting and Carrying unable Squats fatiguing Running Assessment unaqble OP Gait Assessment Gait Gait Assistance Required: Independent Distance (Feet) 194 Able to Maintain Weight Bearing Status Yes During Gait Assistive Devices Assistive Device 4 Wheeled Walker Comments Gait Comments Trendelenberg left with increased lateral trunk flexion left and hip drop, limited by fatigues, SOB Stair Climbing Evaluation Comments Stair Climbing Comments not done today due to fatigue PT-OP-H Neuro Start: 01/27/21 08:16 Freq: Status: Active Protocol: Document 01/28/21 13:47 [facility] (Rec: 01/29/21 13:44 [facility] [id number]) Sensation Evaluation Gross Sensation Gross Sensation Right LE Impaired Sensation Description Numbness Comments Summary Comments min LT sensation right knee to toes c/o pins and needles sensation bilateral LE's at times. Deep Tendon Reflex & Clonus Assessment Deep Tendon Reflex Right Patellar Deep Tendon Reflex 0 Absent Left Patellar Deep Tendon Reflex 1+ Diminished Bilateral Achilles Deep Tendon Reflex 0 Absent Vital Signs Comments Vital Signs Comments BP 154/90 after physical eval, not taken at beginning of session; plan to monitor at least 2x at beginning and during subsequent PT-OP-K Range of Motion Start: 01/27/21 08:16 Freq: Status: Active Protocol: Document 01/28/21 13:47 [facility] (Rec: 01/29/21 13:44 [facility] [id number]) Cervical Spine Range of Motion Cervical Spine Active Comments WNL Shoulder Goniometric Range of Motion Shoulder León Shoulder ROM WFL Yes Hip Goniometric Range of Motion Hip león Straight Leg Raise 55 Internal Rotation 40 External Rotation 50 Comments patient requires assist for SLR Hip ROM Limitations Hip ROM Limitations Soft Tissue Tightness,Muscle Weakness Knee Goniometric Range of Motion Knee león Knee ROM WFL Yes Ankle and Foot Goniometric Range of Motion Ankle and Foot león Dorsiflexion with Knee Flexed 5 Dorsiflexion with Knee Extended 0 Ankle and Foot ROM Limitations ROM Limitations Soft Tissue Tightness PT-OP-M Strength Start: 01/27/21 08:16 Freq: Status: Active Protocol: Document 01/28/21 13:47 [facility] (Rec: 01/29/21 17:01 [facility] [id number]) Shoulder Strength Shoulder Manual Muscle Testing león Flexion 4+ Good+ Extension 4+ Good+ Abduction (C5) 4+ Good+ External Rotation 4+ Good+ Internal Rotation 4+ Good+ Elbow/Forearm Strength Elbow and Forearm Manual Muscle Testing león Flexion (C6) 4+ Good+ Extension (C7) 4+ Good+ Hip Strength Hip Manual Muscle Testing Right Flexion (L2) 4- Good- Extension (S1) 3+ Fair+ Abduction 3+ Fair+ External Rotation 3+ Fair+ Internal Rotation 3+ Fair+ Left Flexion (L2) 3+ Fair+ Extension (S1) 4- Good- Abduction 3+ Fair+ External Rotation 4- Good- Internal Rotation 4- Good- Knee Strength Knee Manual Muscle Testing Right Flexion (S2) 3+ Fair+ Extension (L3) 4 Good Left Flexion (S2) 4- Good- Extension (L3) 4 Good Ankle/Foot Strength Ankle and Foot Manual Muscle Testing Right Dorsiflexion (L4) 4 Good Plantarflexion (S1) 3+ Fair+ Left Dorsiflexion (L4) 4 Good Plantarflexion (S1) 1 Trace PT-OP-Q Treatments Start: 01/27/21 08:16 Freq: Status: Active Protocol: Document 03/19/21 09:02 [facility] (Rec: 03/19/21 09:46 [facility] [id number]) Cardio Equipment Recumbent Elliptical (Biodex) Duration (Minutes) 8 Resistance 1 Seat Position 6 Other RPM <30 Therapeutic Exercises Sitting Exercises deep breathing Reps/Minutes 1 min x 3 Comments cues for breathing through nose, longer exhale than inhale Therapeutic Activity Therapeutic Activity 1 Name 2 min walk test Reps/Minutes 2 min Comments 246 ft Gait Training Gait Activity tandem gait Description tandem gait and tandem stand Device Used parallel bars Surface firm Distance/Duration 6 ft Treatment Focus balance Comments tandem stand 30 sec x 2 PT-OP-T Assessment and Plan Start: 01/27/21 08:16 Freq: Status: Active Protocol: Document 03/19/21 09:02 [facility] (Rec: 03/19/21 09:46 [facility] [id number]) Physical Therapy Assessment Goals Four Impairment excess fatigue with activity Short Term Goal (STG) Patient to be instructed in energy conservation and pacing . STG Duration 02/28/21 Department Clerk Goal (LTG) Patient to demonstrate good understanding and compliance with energy conservation measures and pacing of her activity. LTG Duration 04/29/21 Three Impairment Activities-Specific Balance Confidence scale 50% Skilled Nursing Goal (LTG) improve ABC scale to at least 65% as measure of improved confidence in her mobility to allow more functional independence in her daily life . LTG Duration 04/29/21 Two Impairment limited gait tolerance, requires use of 4WW or power w /c Impairment fatigued after 2 min ambulation, Trendelenberg gait Short Term Goal (STG) Patient able to ambulate for 4 min without excess fatigue with 4WW. STG Duration 02/28/21 Department Clerk Goal (LTG) Patient able to ambulate without compensatory Trendelenberg gait pattern for at least 6 min with 4WW as measure of improved ability to perform short distance community mobility. LTG Duration 04/29/21 One Impairment weakness bilateral LE's Short Term Goal (STG) Patient to be instructed in HEP for LE strengthening supine, sitting, standing depending on tolerance. Improve muscle strength 1/2 grade all muscle groups STG Duration 02/28/21 Department Clerk Goal (LTG) Patient to be independent and compliant with HEP for purposes of LE strengthening, including options for supine, sitting, and standing. Improved strength by 1 grade all muscle groups. LTG Duration 04/29/21 Assessment Summary Assessment 2 min walk test 246 ft. Patient more fatigued with increased SOB, mild angina when initially walking. BP stable. No angina with Biodex recumbant stepper though reported arms and legs feel tingly after Biodex. BP 118/ 76 after walking, 122/70 after Sci-Fit 8 min Physical Therapy Plan Frequency and Duration Frequency of Treatment 2x/Week Duration of Treatment 12 weeks Plan of Care Start Date 01/29/21 Plan of Care End Date 04/29/21 Therapeutic Interventions Therapeutic Interventions Gait Training,Home Exercise Program,Neuromuscular Re- education,Patient/Caregiver Education,Self-Care/Home Management,Soft Tissue Mobilization,Taping, Therapeutic Activities, Therapeutic Exercises Modalities Electric Stimulation Next Visit Focus/Plan Next Note Type Treatment Note Next Visit Plan Continue to progress ther ex with monitoring of vital signs and perceived level of exertion. Guide progression of HEP.
--- NOTE | 2021-03-26 16:46 | PT.OTN ---
Current Diagnoses Other specified polyneuropathies (03/26/21) Weakness (03/26/21) History of falling (03/26/21) Dependence on other enabling machines and devices (03/26/21) Physical Therapy Treatment Note PT-OP-A Visit Information Start: 01/27/21 08:16 Freq: Status: Active Protocol: Document 03/26/21 09:03 SAK (Rec: 03/26/21 09:49 SAK [id number]) Out-Patient Physical Therapy Visit Information Visit Information Visit Type Treatment Note Visit Note BP 122/76 after walking, 122/ 70 after Sci-Fit 8 min Visit Start Time 09:01 Visit Stop Time 09:45 Total Visit Minutes 44 Visit Number 10 Precautions Precautions Has nitroglycerin to take if chest pain. PT-OP-B Current Condition Start: 01/27/21 08:16 Freq: Status: Active Protocol: Document 03/26/21 09:03 SAK (Rec: 03/26/21 09:49 SAK [id number]) Current Condition History of Current Condition Onset Date 4 yrs Current Complaints fatigue, weakness, still no neuro diagnosis, cardiac diagnosis History of Current Condition Gradual progressive weakness, SOB and exercise intolerance and excess fatigue started using cane May 2017. Since that time has been seeing specialists and having tests with diagnosis of possible indeterminate type of muscular dystrophy vs small fiber polyneuropathy . Since last seen in PT 11/12/20 reports has had a harder time getting around physically, no longer able to use cane at night, uses 4WW, also uses portable folding electric wheelchair at times, more than she used to. Occasionally has to use electric wheelchair in the house. Moving less because it's harder to do, reports had an episode where she stayed in bed for 4 days only getting up to go to bathroom and didn't have energy to shower. Had chest pain since last seen, went to ER, had angiogram, no blockages, other tests as below. Diagnosed last week with CAD and diastolic dysfunction. States doctor told her she is candidate for heart attack within 5 years even with medication. Was started on Furosemide, and 1x day long acting nitroglycerine . Carries regular nitro. Has more tingling in her legs, aching, feel weak. Won't walk with cane without holding onto someone or something. Has to pay more attention to posture . Has tipped into wall or dresser, not fallen fully to floor. Prior Treatments and Tests Angiogram [place] Coronary CT Medically-induced stress test all over past month. No conclusive diagnosis related to neuro symptoms; MG vs small fiber polyneuropathy Future Testing and Treatments Planned No tests planned at this point . February 07 at [facility] [place] with Dr. Ramirez. May be transferring care to Dr Stone Angela at [facility]. Treatment Goals Patient/Caregiver Goals Wants to be able to drive herself short distances 1/2 to 1 mile in the community. Feels like it takes so much energy. Hasn't used her exercise bike. Has stopped taking Mestinon; feels SOB worse since heart thing, doesn 't feel Mestinon was helping the mobility. Saw Dr. He at [facility] for a neurology appointment, did work-up for Parkinson's which was negative . PT-OP-C Subjective Start: 01/27/21 08:16 Freq: Status: Active Protocol: Document 03/26/21 09:03 SAK (Rec: 03/26/21 09:49 SAK [id number]) OP-PT Subjective Patient Comments Patient Comments Cont to have more SOB, some pain into her tooth and jaw. Got Nu-Step over weekend, has used 2x. Totally exhausted by having company, took 2hours for her to pace herself to be able to set up table. Sees new director cpg next week. Agreeable to hold PT after today and discuss precautions and recommendations for any further PT. Asking questions about when a power wheelchair or scooter might be appropriate. PT-OP-D Balance Start: 01/27/21 08:16 Freq: Status: Active Protocol: Document 01/28/21 13:47 SAK (Rec: 01/29/21 13:44 SAK [id number]) OP-PT Balance Assessment Sitting Balance Static Sitting Balance Ability Normal Dynamic Sitting Balance Ability Normal Standing Balance Static Standing Balance Ability Good Dynamic Standing Balance Ability Fair Balance Tests Other Other Balance Tests Performed not done today, ran out of time after patient interview, strength, ROM, and neuro testing. Patient fatigued Hebert Fall Scale Copyright Permission PT-OP-E Functional Tests Start: 01/27/21 08:16 Freq: Status: Active Protocol: Document 01/28/21 13:47 SAK (Rec: 01/29/21 13:44 SAK [id number]) Functional Tests 2 Minute Walk Test Distance 194 ft Device Used 4WW PT-OP-G Mobility & Gait Start: 01/27/21 08:16 Freq: Status: Active Protocol: Document 01/28/21 13:47 [facility] (Rec: 01/29/21 13:44 [facility] [id number]) OP Mobility Evaluation Bed Mobility Rolling indep, but labored Supine to and from Sit indep but but labored Transfers Sit to Stand slow, indep but labored Car Transfers SBA Floor Transfers not assessed due to fatigue Functional Movements Lifting and Carrying unable Squats fatiguing Running Assessment unaqble OP Gait Assessment Gait Gait Assistance Required: Independent Distance (Feet) 194 Able to Maintain Weight Bearing Status Yes During Gait Assistive Devices Assistive Device 4 Wheeled Walker Comments Gait Comments Trendelenberg left with increased lateral trunk flexion left and hip drop, limited by fatigues, SOB Stair Climbing Evaluation Comments Stair Climbing Comments not done today due to fatigue PT-OP-H Neuro Start: 01/27/21 08:16 Freq: Status: Active Protocol: Document 01/28/21 13:47 [facility] (Rec: 01/29/21 13:44 [facility] [id number]) Sensation Evaluation Gross Sensation Gross Sensation Right LE Impaired Sensation Description Numbness Comments Summary Comments min LT sensation right knee to toes c/o pins and needles sensation bilateral LE's at times. Deep Tendon Reflex & Clonus Assessment Deep Tendon Reflex Right Patellar Deep Tendon Reflex 0 Absent Left Patellar Deep Tendon Reflex 1+ Diminished Bilateral Achilles Deep Tendon Reflex 0 Absent Vital Signs Comments Vital Signs Comments BP 154/90 after physical eval, not taken at beginning of session; plan to monitor at least 2x at beginning and during subsequent PT-OP-K Range of Motion Start: 01/27/21 08:16 Freq: Status: Active Protocol: Document 01/28/21 13:47 [facility] (Rec: 01/29/21 13:44 [facility] [id number]) Cervical Spine Range of Motion Cervical Spine Active Comments WNL Shoulder Goniometric Range of Motion Shoulder León Shoulder ROM WFL Yes Hip Goniometric Range of Motion Hip león Straight Leg Raise 55 Internal Rotation 40 External Rotation 50 Comments patient requires assist for SLR Hip ROM Limitations Hip ROM Limitations Soft Tissue Tightness,Muscle Weakness Knee Goniometric Range of Motion Knee león Knee ROM WFL Yes Ankle and Foot Goniometric Range of Motion Ankle and Foot león Dorsiflexion with Knee Flexed 5 Dorsiflexion with Knee Extended 0 Ankle and Foot ROM Limitations ROM Limitations Soft Tissue Tightness PT-OP-M Strength Start: 01/27/21 08:16 Freq: Status: Active Protocol: Document 01/28/21 13:47 [facility] (Rec: 01/29/21 17:01 [facility] [id number]) Shoulder Strength Shoulder Manual Muscle Testing león Flexion 4+ Good+ Extension 4+ Good+ Abduction (C5) 4+ Good+ External Rotation 4+ Good+ Internal Rotation 4+ Good+ Elbow/Forearm Strength Elbow and Forearm Manual Muscle Testing león Flexion (C6) 4+ Good+ Extension (C7) 4+ Good+ Hip Strength Hip Manual Muscle Testing Right Flexion (L2) 4- Good- Extension (S1) 3+ Fair+ Abduction 3+ Fair+ External Rotation 3+ Fair+ Internal Rotation 3+ Fair+ Left Flexion (L2) 3+ Fair+ Extension (S1) 4- Good- Abduction 3+ Fair+ External Rotation 4- Good- Internal Rotation 4- Good- Knee Strength Knee Manual Muscle Testing Right Flexion (S2) 3+ Fair+ Extension (L3) 4 Good Left Flexion (S2) 4- Good- Extension (L3) 4 Good Ankle/Foot Strength Ankle and Foot Manual Muscle Testing Right Dorsiflexion (L4) 4 Good Plantarflexion (S1) 3+ Fair+ Left Dorsiflexion (L4) 4 Good Plantarflexion (S1) 1 Trace PT-OP-Q Treatments Start: 01/27/21 08:16 Freq: Status: Active Protocol: Document 03/26/21 09:03 [facility] (Rec: 03/26/21 09:49 [facility] [id number]) Cardio Equipment Recumbent Elliptical (Biodex) Duration (Minutes) 8 Resistance 1 Seat Position 6 Other RPM <30 Gym Equipment Shuttle Balance 2 Details chains red Reps/Duration 4 min Comments bal and wt shift fwd/bck, side to side no LOB Therapeutic Exercises Sitting Exercises pec stretch Reps/Minutes 1x10 deep breathing Reps/Minutes 1 min x 3 Comments cues for breathing through nose, longer exhale than inhale Therapeutic Activity Therapeutic Activity 1 Name 2 min walk test Reps/Minutes 2 min Comments 276 ft Self-Care/Home Management Treatment Education Patient Education Home Exercise Program,Safety Other Education pacing, benefits of scooter or electric w/c. PT-OP-T Assessment and Plan Start: 01/27/21 08:16 Freq: Status: Active Protocol: Document 03/26/21 09:03 [facility] (Rec: 03/26/21 09:49 [facility] [id number]) Physical Therapy Assessment Goals Four Impairment excess fatigue with activity Short Term Goal (STG) Patient to be instructed in energy conservation and pacing . STG Duration 02/28/21 Vacation Sales Advisor Goal (LTG) Patient to demonstrate good understanding and compliance with energy conservation measures and pacing of her activity. LTG Duration 04/29/21 Three Impairment Activities-Specific Balance Confidence scale 50% Fdc Goal (LTG) improve ABC scale to at least 65% as measure of improved confidence in her mobility to allow more functional independence in her daily life . LTG Duration 04/29/21 Two Impairment limited gait tolerance, requires use of 4WW or power w /c Impairment fatigued after 2 min ambulation, Trendelenberg gait Short Term Goal (STG) Patient able to ambulate for 4 min without excess fatigue with 4WW. STG Duration 02/28/21 Vacation Sales Advisor Goal (LTG) Patient able to ambulate without compensatory Trendelenberg gait pattern for at least 6 min with 4WW as measure of improved ability to perform short distance community mobility. LTG Duration 04/29/21 One Impairment weakness bilateral LE's Short Term Goal (STG) Patient to be instructed in HEP for LE strengthening supine, sitting, standing depending on tolerance. Improve muscle strength 1/2 grade all muscle groups STG Duration 02/28/21 Vacation Sales Advisor Goal (LTG) Patient to be independent and compliant with HEP for purposes of LE strengthening, including options for supine, sitting, and standing. Improved strength by 1 grade all muscle groups. LTG Duration 04/29/21 Assessment Summary Assessment 2 min walk test 276 ft. Patient cont to report inc SOB and fatigue. Sees new director cpg next week. Got Nu-step recumbant stepper. PT on hold until after patient sees director cpg. Feel she may be more appropriate for cardiac rehab at this time. Discussed benefits of scooter or power wheelchair, patient to consider, no decision until after sees director cpg. Physical Therapy Plan Frequency and Duration Frequency of Treatment 2x/Week Duration of Treatment 12 weeks Plan of Care Start Date 01/29/21 Plan of Care End Date 04/29/21 Therapeutic Interventions Therapeutic Interventions Gait Training,Home Exercise Program,Neuromuscular Re- education,Patient/Caregiver Education,Self-Care/Home Management,Soft Tissue Mobilization,Taping, Therapeutic Activities, Therapeutic Exercises Modalities Electric Stimulation Next Visit Focus/Plan Next Note Type Treatment Note Next Visit Plan Continue PT pending recommendations from new director cpg, patient may be most appropriate for cardiac rehab and she has been waiting for approval from insurance.
--- NOTE | 2021-04-10 16:26 | PT.OTN ---
Current Diagnoses Other specified polyneuropathies (04/10/21) Weakness (04/10/21) History of falling (04/10/21) Dependence on other enabling machines and devices (04/10/21) Physical Therapy Treatment Note PT-OP-A Visit Information Start: 01/27/21 08:16 Freq: Status: Active Protocol: Document 04/10/21 14:31 SAK (Rec: 04/10/21 15:15 SAK [id number]) Out-Patient Physical Therapy Visit Information Visit Information Visit Type Treatment Note Visit Note BP 122/76 after walking, 122/ 70 after Sci-Fit 8 min Visit Start Time 09:01 Visit Stop Time 09:45 Total Visit Minutes 45 Visit Number 10 PT-OP-B Current Condition Start: 01/27/21 08:16 Freq: Status: Active Protocol: Document 04/10/21 14:31 SAK (Rec: 04/10/21 15:15 SAK [id number]) Current Condition History of Current Condition Onset Date 4 yrs Current Complaints fatigue, weakness, still no neuro diagnosis, cardiac diagnosis History of Current Condition Gradual progressive weakness, SOB and exercise intolerance and excess fatigue started using cane May 2017. Since that time has been seeing specialists and having tests with diagnosis of possible indeterminate type of muscular dystrophy vs small fiber polyneuropathy . Since last seen in PT 11/12/20 reports has had a harder time getting around physically, no longer able to use cane at night, uses 4WW, also uses portable folding electric wheelchair at times, more than she used to. Occasionally has to use electric wheelchair in the house. Moving less because it's harder to do, reports had an episode where she stayed in bed for 4 days only getting up to go to bathroom and didn't have energy to shower. Had chest pain since last seen, went to ER, had angiogram, no blockages, other tests as below. Diagnosed last week with CAD and diastolic dysfunction. States doctor told her she is candidate for heart attack within 5 years even with medication. Was started on Furosemide, and 1x day long acting nitroglycerine . Carries regular nitro. Has more tingling in her legs, aching, feel weak. Won't walk with cane without holding onto someone or something. Has to pay more attention to posture . Has tipped into wall or dresser, not fallen fully to floor. Prior Treatments and Tests Angiogram [facility] Medically-induced stress test all over past month. No conclusive diagnosis related to neuro symptoms; MG vs small fiber polyneuropathy Future Testing and Treatments Planned No tests planned at this point . February 07 at [facility] with Dr. Ramirez. May be transferring care to Dr Stone Angela at [facility]. Treatment Goals Patient/Caregiver Goals Wants to be able to drive herself short distances 1/2 to 1 mile in the community. Feels like it takes so much energy. Hasn't used her exercise bike. Has stopped taking Mestinon; feels SOB worse since heart thing, doesn 't feel Mestinon was helping the mobility. Saw Dr. He at [facility] for a neurology appointment, did work-up for Parkinson's which was negative . PT-OP-C Subjective Start: 01/27/21 08:16 Freq: Status: Active Protocol: Document 04/10/21 14:31 SAK (Rec: 04/10/21 15:15 SAK [id number]) OP-PT Subjective Patient Comments Patient Comments Some decrease in emotional stress related to her daughter since last seen, but states her is in a deep depression. Drove herself for first time in over a year. Yesterday had intake with cardiac rehab, will be going [facility] for 12 weeks. Today had 20 min on the treadmill, then 20 min on Nustep in cardiac rehab. Wants to put PT on hold while does cardiac rehab. Saw sanitation lead Belem Amin at in [place], liked her but no revolutionary new info. Going tohave another angiogram for microvascular system 04/29/21 with Christelle Peters MD. Next Thursday having another echocardiogram for exercise induced heart failure. Had 2 episodes of angina last week, has taken 2 nitro which helped. PT-OP-D Balance Start: 01/27/21 08:16 Freq: Status: Active Protocol: Document 01/28/21 13:47 SAK (Rec: 01/29/21 13:44 SAK [id number]) OP-PT Balance Assessment Sitting Balance Static Sitting Balance Ability Normal Dynamic Sitting Balance Ability Normal Standing Balance Static Standing Balance Ability Good Dynamic Standing Balance Ability Fair Balance Tests Other Other Balance Tests Performed not done today, ran out of time after patient interview, strength, ROM, and neuro testing. Patient fatigued Hebert Fall Scale Copyright Permission PT-OP-E Functional Tests Start: 01/27/21 08:16 Freq: Status: Active Protocol: Document 01/28/21 13:47 [facility] (Rec: 01/29/21 13:44 [facility] [id number]) Functional Tests 2 Minute Walk Test Distance 194 ft Device Used 4WW PT-OP-G Mobility & Gait Start: 01/27/21 08:16 Freq: Status: Active Protocol: Document 01/28/21 13:47 [facility] (Rec: 01/29/21 13:44 [facility] [id number]) OP Mobility Evaluation Bed Mobility Rolling indep, but labored Supine to and from Sit indep but but labored Transfers Sit to Stand slow, indep but labored Car Transfers SBA Floor Transfers not assessed due to fatigue Functional Movements Lifting and Carrying unable Squats fatiguing Running Assessment unaqble OP Gait Assessment Gait Gait Assistance Required: Independent Distance (Feet) 194 Able to Maintain Weight Bearing Status Yes During Gait Assistive Devices Assistive Device 4 Wheeled Walker Comments Gait Comments Trendelenberg left with increased lateral trunk flexion left and hip drop, limited by fatigues, SOB Stair Climbing Evaluation Comments Stair Climbing Comments not done today due to fatigue PT-OP-H Neuro Start: 01/27/21 08:16 Freq: Status: Active Protocol: Document 01/28/21 13:47 [facility] (Rec: 01/29/21 13:44 [facility] [id number]) Sensation Evaluation Gross Sensation Gross Sensation Right LE Impaired Sensation Description Numbness Comments Summary Comments min LT sensation right knee to toes c/o pins and needles sensation bilateral LE's at times. Deep Tendon Reflex & Clonus Assessment Deep Tendon Reflex Right Patellar Deep Tendon Reflex 0 Absent Left Patellar Deep Tendon Reflex 1+ Diminished Bilateral Achilles Deep Tendon Reflex 0 Absent Vital Signs Comments Vital Signs Comments BP 154/90 after physical eval, not taken at beginning of session; plan to monitor at least 2x at beginning and during subsequent PT-OP-K Range of Motion Start: 01/27/21 08:16 Freq: Status: Active Protocol: Document 01/28/21 13:47 [facility] (Rec: 01/29/21 13:44 [facility] [id number]) Cervical Spine Range of Motion Cervical Spine Active Comments WNL Shoulder Goniometric Range of Motion Shoulder Girma Shoulder ROM WFL Yes Hip Goniometric Range of Motion Hip girma Straight Leg Raise 55 Internal Rotation 40 External Rotation 50 Comments patient requires assist for SLR Hip ROM Limitations Hip ROM Limitations Soft Tissue Tightness,Muscle Weakness Knee Goniometric Range of Motion Knee girma Knee ROM WFL Yes Ankle and Foot Goniometric Range of Motion Ankle and Foot girma Dorsiflexion with Knee Flexed 5 Dorsiflexion with Knee Extended 0 Ankle and Foot ROM Limitations ROM Limitations Soft Tissue Tightness PT-OP-M Strength Start: 01/27/21 08:16 Freq: Status: Active Protocol: Document 01/28/21 13:47 [facility] (Rec: 01/29/21 17:01 [facility] [id number]) Shoulder Strength Shoulder Manual Muscle Testing girma Flexion 4+ Good+ Extension 4+ Good+ Abduction (C5) 4+ Good+ External Rotation 4+ Good+ Internal Rotation 4+ Good+ Elbow/Forearm Strength Elbow and Forearm Manual Muscle Testing girma Flexion (C6) 4+ Good+ Extension (C7) 4+ Good+ Hip Strength Hip Manual Muscle Testing Right Flexion (L2) 4- Good- Extension (S1) 3+ Fair+ Abduction 3+ Fair+ External Rotation 3+ Fair+ Internal Rotation 3+ Fair+ Left Flexion (L2) 3+ Fair+ Extension (S1) 4- Good- Abduction 3+ Fair+ External Rotation 4- Good- Internal Rotation 4- Good- Knee Strength Knee Manual Muscle Testing Right Flexion (S2) 3+ Fair+ Extension (L3) 4 Good Left Flexion (S2) 4- Good- Extension (L3) 4 Good Ankle/Foot Strength Ankle and Foot Manual Muscle Testing Right Dorsiflexion (L4) 4 Good Plantarflexion (S1) 3+ Fair+ Left Dorsiflexion (L4) 4 Good Plantarflexion (S1) 1 Trace PT-OP-Q Treatments Start: 01/27/21 08:16 Freq: Status: Active Protocol: Document 04/10/21 14:31 [facility] (Rec: 04/10/21 16:25 [facility] [id number]) Cardio Equipment Recumbent Elliptical ([email or web address]) Other not done due to cardiac rehab earlier Gym Equipment Shuttle Balance 2 Details chains red Reps/Duration 4 min Comments bal and wt shift fwd/bck, side to side no LOB Therapeutic Exercises Sitting Exercises pec stretch Reps/Minutes 1x10 deep breathing Reps/Minutes 1 min x 3 Comments cues for breathing through nose, longer exhale than inhale Therapeutic Activity Therapeutic Activity 1 Name 2 min walk test Reps/Minutes 2 min Comments 312 ft Manual Therapy Treatment Other Other Manual Treatments MMT girma LE's Self-Care/Home Management Treatment Education Patient Education Home Exercise Program Other Education pacing PT-OP-T Assessment and Plan Start: 01/27/21 08:16 Freq: Status: Active Protocol: Document 04/10/21 14:31 SAK (Rec: 04/10/21 15:15 SAK [id number]) Physical Therapy Assessment Goals Four Impairment excess fatigue with activity Short Term Goal (STG) Patient to be instructed in energy conservation and pacing . 04/09/21: goal met STG Duration 02/28/21 Retail Planner Goal (LTG) Patient to demonstrate good understanding and compliance with energy conservation measures and pacing of her activity. 04/10/21: goal met LTG Duration 04/29/21 Three Impairment Activities-Specific Balance Confidence scale 50% Retail Planner Goal (LTG) improve ABC scale to at least 65% as measure of improved confidence in her mobility to allow more functional independence in her daily life . 04/10/21: LTG Duration 04/29/21 Two Impairment limited gait tolerance, requires use of 4WW or power w /c Impairment fatigued after 2 min ambulation, Trendelenberg gait Short Term Goal (STG) Patient able to ambulate for 4 min without excess fatigue with 4WW. 04/10/21: becomes easily SOB, some improvement with controlled breathing as instructed but SOB due to cardiac issues and deconditioning STG Duration 02/28/21 Retail Planner Goal (LTG) Patient able to ambulate without compensatory Trendelenberg gait pattern for at least 6 min with 4WW as measure of improved ability to perform short distance community mobility. 04/10/21: Not yet able to walk 6 min in PT, though reports walked 20 min on treadmill LTG Duration 04/29/21 One Impairment weakness bilateral LE's Short Term Goal (STG) Patient to be instructed in HEP for LE strengthening supine, sitting, standing depending on tolerance. Improve muscle strength 1/2 grade all muscle groups 04/10/21: goal met STG Duration 02/28/21 Retail Planner Goal (LTG) Patient to be independent and compliant with HEP for purposes of LE strengthening, including options for supine, sitting, and standing. Improved strength by 1 grade all muscle groups. 04/10/21: goal met LTG Duration 04/29/21 Assessment Summary Assessment 2 min walk test 312 ft. Goals mostly achieved. Patient has just started cardiac rehab 3x /wk. Will cancel last PT visit, as can't tolerate both PT and cardiac rehab. May return to PT after cardiac rehab. Physical Therapy Plan Discharge Physical Therapy Discharge Reasons Patient Request Discharge Comments Now attending cardiac rehab.
== END 2021-07-02 09:44 ==
LOC: PHYS 14:30
PROVIDERS: PCP Nurse Practitioner; Referring Provider Nurse Practitioner; Visit Provider Nurse Practitioner
DX: G62.89 Other specified polyneuropathies (principal); Z91.81 History of falling; R53.1 Weakness; Z99.89 Dependence on other enabling machines and devices
CPT/HCPCS: 97110; 97116; 97140; 97163; 97530; 97535

== ENCOUNTER → 2021-04-26 09:59 | Outpatient (CLI) | payer MEDICARE, BC, SELFPAY ==
[2020-10-04 13:43] VITALS: BMI 33.3
[2021-04-26 11:47] LABS: COVID-19 CEPHEID PCR (VTM/NP) Negative (Negative)
== END ==
PROVIDERS: PCP Nurse Practitioner; Visit Provider Nurse Practitioner Family
DX: Z20.822 Contact with and (suspected) exposure to COVID-19 (principal)
CPT/HCPCS: C9803; U0003

== ENCOUNTER → 2021-05-22 06:57 | Outpatient (CLI) | payer MEDICARE, BC, SELFPAY ==
[2020-10-04 13:43] VITALS: BMI 33.3
[2021-05-22 09:27] LABS: Creatinine Urine Random 16.2 mg/dL
[2021-05-22 09:30] LABS: Alanine Aminotransferase 25 IU/L (<35); Albumin 4.5 g/dL (3.5-5.0); Alkaline Phosphatase 102 U/L (38-126); Aspartate Aminotransferase 27 IU/L (14-36); BUN Creatinine Ratio 15.2 (6-22); Bilirubin Total 0.6 mg/dL (0.2-1.3); Blood Urea Nitrogen 15 mg/dL (7-17); Calcium 9.7 mg/dL (8.4-10.2); Carbon Dioxide 29 mmol/L (22-32); Chloride 103 mmol/L (98-107); Cholesterol 133 mg/dL (140-199); Estimated Glomerular Filt Rate 55.5 mL/min (>60); Globulin 2.3 g/dL (1.7-4.1); Glucose 104 mg/dL (80-110); HDL Cholesterol 50 mg/dL (40-60); HEMOLYSIS < 15 (0-50); LDL Cholesterol Calculated 54 mg/dL (<100); Potassium 4.3 mmol/L (3.4-5.1); Sodium 140 mmol/L (137-145); Total Protein 6.8 g/dL (6.3-8.2); Triglycerides 147 mg/dL (35-150)
[2021-05-22 09:35] LABS: Microalbumin Urine Random < 0.6 mg/dL (0-1.6)
== END ==
PROVIDERS: PCP Nurse Practitioner; Referring Provider Nurse Practitioner; Visit Provider Nurse Practitioner
DX: I10 Essential (primary) hypertension (principal); E78.5 Hyperlipidemia, unspecified; Z79.899 Other long term (current) drug therapy
CPT/HCPCS: 36415; 80053; 80061; 82043; 82570

== ENCOUNTER → 2021-06-25 12:28 | Outpatient (CLI) | payer MEDICARE, BC, SELFPAY ==
[2020-10-04 13:43] VITALS: BMI 33.3
--- NOTE | 2021-06-25 12:31 | DI.RAD.S_ITS ---
PROCEDURE: XR CHEST 2V INDICATIONS: cough and SOB TECHNIQUE: 2 views of the chest were acquired. COMPARISON: [facility], CR, XR CHEST 2V, 03/18/2021, 14:42. FINDINGS: Surgical changes and devices: None. Lungs and pleura: Lungs are clear. No pleural effusions or pneumothorax. Mediastinum: Mediastinal contours are normal. Heart size is normal. Bones and chest wall: No suspicious bony abnormalities. Soft tissues appear unremarkable. IMPRESSION: No evidence acute pulmonary process. Dictated by: Ernie Peralta M.D. on 06/25/2021 at 15:48 Approved by: Ernie Peralta M.D. on 06/25/2021 at 19:11
[2021-06-25 13:21] LABS: Add Manual Diff / Slide Review NO; Basophils Absolute Auto 0 /uL (0-100); Basophils Percent Auto 0.6 % (0-2); Eosinophils Absolute Auto 200 /uL (0-450); Eosinophils Percent Auto 2.8 % (2-4); Hematocrit 38.1 % (36-46); Hemoglobin 12.5 g/dL (12.0-16.0); Lymphocytes Absolute Auto 1400 /uL (1100-4500); Lymphocytes Percent Auto 25.9 % (25-40); Mean Corpuscular HGB Conc 32.9 % (30-36); Mean Corpuscular Volume 88.2 fL (80-100); Monocytes Absolute Auto 500 /uL (0-900); Monocytes Percent Auto 8.5 % (3-14); Neutrophils Absolute Auto 3500 /uL (1500-7000); Neutrophils Percent Auto 62.2 % (50-75); Platelet Count 224 X10^3/uL (150-400); Red Blood Cell Count 4.32 X10^6/uL (4.0-5.2); Red Cell Distribution Width 14.9 % (11.6-14.8); White Blood Cell Count 5.6 X10^3/uL (4.5-11.0)
[2021-06-25 13:44] LABS: Alanine Aminotransferase 24 IU/L (<35); Albumin 4.5 g/dL (3.5-5.0); Albumin Globulin Ratio 1.7 (1.0-2.8); Alkaline Phosphatase 85 U/L (38-126); Aspartate Aminotransferase 27 IU/L (14-36); Bilirubin Total 0.4 mg/dL (0.2-1.3); Blood Urea Nitrogen 18 mg/dL (7-17); Calcium 9.9 mg/dL (8.4-10.2); Carbon Dioxide 29 mmol/L (22-32); Chloride 105 mmol/L (98-107); Creatine Kinase 59 U/L (30-135); Estimated Glomerular Filt Rate > 60.0 mL/min (>60); Globulin 2.7 g/dL (1.7-4.1); Glucose 118 mg/dL (80-110); HEMOLYSIS 20 (0-50); Potassium 4.1 mmol/L (3.4-5.1); Sodium 141 mmol/L (137-145); Total Protein 7.2 g/dL (6.3-8.2)
[2021-06-25 13:57] LABS: Free T3, Triiodothyronine Free 3.57 pg/mL (2.77-5.27); Free T4, Direct Thyroxine 0.78 ng/dL (0.78-2.19)
[2021-06-25 14:11] LABS: Thyroid Stimulating Hormone 1.71 uIU/mL (0.47-4.68)
== END ==
PROVIDERS: PCP Nurse Practitioner; Referring Provider Nurse Practitioner; Visit Provider Nurse Practitioner
DX: R05.9 Cough, unspecified (principal); R53.83 Other fatigue; R06.02 Shortness of breath
CPT/HCPCS: 36415; 71046; 80053; 82550; 84439; 84443; 84481; 85025

== ENCOUNTER → 2021-07-03 15:48 | Outpatient (CLI) | payer MEDICARE, BC, SELFPAY ==
[2020-10-04 13:43] VITALS: BMI 33.3
--- NOTE | 2021-07-03 15:49 | DI.MRI.S_ITS ---
PROCEDURE: MR CERVICAL SPINE WO CON INDICATIONS: Other symptoms and signs involving the musculoskeletal syste TECHNIQUE: Noncontrast sagittal T1 spin echo and T2 fast spin echo, sagittal STIR, foraminal oblique sagittal T2 fast spin echo, and axial gradient echo or T2 fast spin echo through the cervical spine. COMPARISON: [facility], MR, MR CERVICAL SPINE WITH/WITHOUT CONTRAST, 09/10/2017, 19:20. FINDINGS: Image quality: This examination is limited by involuntary motion artifact. Alignment and Curvature: There is normal bony alignment. Bone Marrow: Marrow demonstrates normal overall signal. Spinal Cord: Visualized spinal cord has normal size and signal. No cerebellar tonsillar herniation. Paraspinous Soft Tissues: No paravertebral masses. Prevertebral soft tissues are normal in thickness. C2-C3: The disc height is well-preserved. Loss of disc signal is seen at this level. A mild degree of generalized disc osteophyte complex is seen. There is moderate to prominent right-sided and mild left-sided facet hypertrophy seen. There is [id number] bilateral neural foraminal narrowing seen. The central canal is widely patent. These imaging findings have progressed compared to the prior study. C3-C4: The disc height is well-preserved. Loss of disc signal is seen at this level. Mild to moderate disc osteophyte complex is seen. There is at least moderate right-sided and moderate left-sided facet hypertrophy. There is moderate to severe right-sided and at least moderate left-sided neural foraminal narrowing. Minimal central canal narrowing is seen. These imaging findings have progressed compared to the prior study. C4-C5: Moderate loss of disc height is seen. Loss of disc signal is seen. Moderate generalized disc osteophyte complex is seen. At least moderate facet hypertrophy can be seen. There is moderate to severe bilateral neural foraminal narrowing seen. Minimal central canal narrowing is seen. There is mild progression compared to 2018. C5-C6: Moderate loss of disc height is seen. Loss of disc signal is seen. At least moderate disc osteophyte complex is seen, which is eccentric to the left side. Moderate facet joint hypertrophy is seen. There is moderate to severe left-sided and minimal right-sided neural foraminal narrowing. Mild central canal narrowing is seen. When comparison is made with the prior images, these findings are similar. C6-C7: Moderate loss of disc height is seen. Loss of disc signal is seen. Moderate generalized disc osteophyte complex is seen. There is a mild central disc osteophyte protrusion. Mild facet joint hypertrophy is seen. There is moderate to severe bilateral neural foraminal narrowing. Mild to moderate central canal narrowing can be seen. These imaging findings have progressed compared to the prior study. C7-T1: No significant abnormality is seen. IMPRESSION: Multiple levels of cervical spine degenerative change are seen, which are worst inferiorly. Compared to 2018, the degenerative changes are overall mildly progressed. Dictated by: Juan Ramon Diana M.D. on 07/03/2021 at 15:46 Approved by: Juan Ramon Diana M.D. on 07/03/2021 at 15:51
--- NOTE | 2021-07-03 15:49 | DI.MRI.S_ITS ---
PROCEDURE: MR LUMBAR SPINE WO CON INDICATIONS: Other symptoms and signs involving the musculoskeletal syste TECHNIQUE: Noncontrast sagittal T1 spin echo and T2 fast echo, sagittal STIR, axial T1 and T2 fast spin echo through the lumbar spine. In cases with scoliosis, additional coronal T2 fast spin echo may be performed. COMPARISON: [facility], CT, CT ABDOMEN PELVIS W CON, 10/21/2020, 8:19. [facility], MR, MR CERVICAL SPINE WO CON, 07/03/2021, 15:57. [facility], CT, CT ABDOMEN W CON, 03/29/2021, 11:33. FINDINGS: Image quality: Excellent. Alignment and Curvature: There is minimal retrolisthesis seen at with L2-L3, with minimal anterolisthesis at L4-L5. No associated pars defects are seen. Bone Marrow: Marrow is of normal overall signal. No acute vertebral body compression fractures. Spinal Cord: Conus medullaris terminates at the T12-L1 level. Visualized cord demonstrates normal signal and size. Paraspinous Soft Tissues: No paravertebral masses. T12-L1: Normal appearance. L1-L2: Normal appearance. L2-L3: Mild loss of disc height is seen. Loss of disc signal is seen. Mild generalized disc bulge is seen. There is a superimposed central disc protrusion. Mild facet joint hypertrophy is seen. Mild to moderate bilateral neural foraminal narrowing can be seen. No significant central canal narrowing is seen. L3-L4: The disc height is well-preserved. Loss of disc signal is seen at this level. Mild to moderate disc bulge is seen. Mild to moderate facet hypertrophy is seen, with associated hypertrophy of the ligamentum flavum. There is mild left-sided and no significant right-sided neural narrowing. Mild central canal narrowing is seen. L4-L5: Moderate loss of disc height is seen. Loss of disc signal is seen. Moderate generalized disc bulge is seen. There is a superimposed central disc protrusion. At least moderate facet hypertrophy is seen, right worse than left. Moderate bilateral neural foraminal narrowing is seen. Moderate central canal narrowing is seen. L5-S1: The disc height and disc signal are relatively well preserved. Moderate disc bulge is seen, which is eccentric to the right. Moderate facet joint hypertrophy is seen. Moderate bilateral neural foraminal narrowing can be seen. No significant central canal narrowing is seen. Extensive, expansile Tarlov cysts are again seen within the sacrum. IMPRESSION: Multiple levels of lumbar spine degenerative change are seen, which are overall worst at the L4-L5 level. Extensive, expansile Tarlov cysts are again seen within the sacrum. Dictated by: Juan Ramon Diana M.D. on 07/03/2021 at 16:54 Approved by: Juan Ramon Diana M.D. on 07/03/2021 at 17:00
== END ==
PROVIDERS: PCP Nurse Practitioner; Referring Provider Psychiatry & Neurology Neurology; Visit Provider Psychiatry & Neurology Neurology
DX: M48.02 Spinal stenosis, cervical region (principal); M50.31 Other cervical disc degeneration, high cervical region; M47.816 Spondylosis without myelopathy or radiculopathy, lumbar region; G96.191 Perineural cyst; M79.10 Myalgia, unspecified site; R29.898 Other symptoms and signs involving the musculoskeletal system
CPT/HCPCS: 72141; 72148

== ENCOUNTER → 2021-07-15 10:13 | Outpatient (CLI) | payer MEDICARE, BC, SELFPAY ==
[2020-10-04 13:43] VITALS: BMI 33.3
--- NOTE | 2021-07-15 10:19 | DIET.OUTPTC ---
Dietary Outpatient Consultation Note Consultation Date: 07/15/20[address] 71[address] visit for help with meal planning for her cardiac and rhumatic disease states. Pt enrolled in cardiac rehab, has completed 24 sessions, has found much benefit with the nutrition lectures, however, has not seen weight loss thus far. Pt lives c spouse and adult daughter. Spouse likes healthy food, they eat primarily unrefined diet but daughter likes processed foods and keeps them in house. Pt has difficulty moderating intake processed foods if in home. Pt usually has coffee first thing in am. Often waits too long to eat breakfast and grabs what is convenient. Usually has leftovers for lunch and a healthy dinner. Pt cannot grocery shop because she does not have the stamina, pts shops and cooks. He has been spiralizing vegetables in place of noodles and they use brown rice instead of white for stir fries. Pt would like to eat main meal at lunch because she tends to be sedentary in evening. Interventions: 1. Collaborated c pt on better breakfast routine. Pt will have her purchase Low Sugar instant oats, low sugar yogurt, and ground flaxseed. She will have yogurt or oatmeal with fruit and flax every morning. 2. Discussed ways pt can broach subject of main meal at lunch with spouse and daughter. Pt feels confident this conversation will go well. 3. Provided pt resource of [employer] for meal planning as well as a meal plan template. Discussed planning 4 dinners per week and making enough for lunch portions the next day. Electronically Signed by: Mariel Ortega 07/15/21 10:19 Clinical Dietitian [address] [id number]
== END ==
PROVIDERS: PCP Nurse Practitioner; Referring Provider Nurse Practitioner; Visit Provider Nurse Practitioner
DX: M06.9 Rheumatoid arthritis, unspecified (principal); I51.9 Heart disease, unspecified; Z71.3 Dietary counseling and surveillance
CPT/HCPCS: 97802

== ENCOUNTER → 2021-07-15 15:05 | Outpatient (CLI) | payer MEDICARE, BC, SELFPAY ==
[2020-10-04 13:43] VITALS: BMI 33.3
--- NOTE | 2021-07-15 15:07 | DI.MG.S_ITS ---
BILATERAL DIGITAL SCREENING MAMMOGRAM 3D/2D WITH CAD: 07/15/2021 CLINICAL: Routine screening. Family history of breast cancer. Comparison is made to exams dated: 07/20/2020 mammogram, 07/15/2019 mammogram, and 06/28/2018 mammogram - [facility]. There are scattered fibroglandular elements in both breasts. Current study was also evaluated with a Computer Aided Detection (CAD) system. There is a benign focal asymmetry in the left breast. There also are benign calcifications in both breasts. No significant masses, calcifications, or other findings are seen in either breast. There has been no significant interval change. IMPRESSION: BENIGN There is no mammographic evidence of malignancy. A 1 year screening mammogram is recommended. This exam was interpreted at Station ID: [id number]. NOTE: For mammograms, a report in lay terms will be sent to the patient. Approximately 15% of breast malignancies will not be visualized mammographically. In the management of a palpable breast mass, a negative mammogram must not discourage biopsy of a clinically suspicious lesion. Electronically Signed By: Jimbo ramirez/eleonora:07/15/2021 16:39:41 letter sent: Normal Exam ACR BI-RADS Category 2: Benign Finding(s) [id number]
== END ==
PROVIDERS: PCP Nurse Practitioner; Referring Provider Nurse Practitioner; Visit Provider Nurse Practitioner
DX: Z12.31 Encounter for screening mammogram for malignant neoplasm of breast (principal); Z80.3 Family history of malignant neoplasm of breast
CPT/HCPCS: 77063; 77067

== ENCOUNTER → 2021-08-09 13:38 | Outpatient (CLI) | payer MEDICARE, BC, SELFPAY ==
[2020-10-04 13:43] VITALS: BMI 33.3
--- NOTE | 2021-08-09 13:39 | DI.MRI.S_ITS ---
PROCEDURE: MR RUN OFF 3 STAGES ABD START INDICATIONS: Lower extremity weakness, rule out lower extremity arteritis TECHNIQUE: Precontrast axial and coronal TruFISP acquired through the abdomen and pelvis. Multi-station dynamic coronal MRA using Care Bolus timing from the kidneys to the ankles during the administration of contrast, with 3-dimensional maximum intensity projection (MIP) reformats constructed. COMPARISON: None. FINDINGS: Image quality: Excellent. ABDOMEN: Aorta: Aorta is normal in caliber and is patent. Renal arteries: Renal arteries all appear patent. Extravascular soft tissues: Visualized solid organs are normal in size on limited pre-contrast images. Bowel loops are normal in caliber. No free fluid. No retroperitoneal or mesenteric adenopathy by size criteria. No ventral hernias. Bones: Marrow demonstrates normal overall signal. PELVIS AND BILATERAL LOWER EXTREMITIES: Right sided vessels: Common, internal, and external iliac arteries are patent. Common, and profunda femoral arteries are patent. Moderate stenosis within the right distal superficial femoral artery. Above and below knee popliteal artery is patent. Anterior tibial artery is not well seen secondary to venous overlap. Tibioperoneal trunk is patent. Peroneal posterior tibial arteries are patent. Left sided vessels: Common, internal, and external iliac arteries are patent. Common, profunda, and superficial femoral arteries are patent. Above above and below knee popliteal artery is patent. Anterior tibial artery, tibioperoneal trunk, peroneal and posterior tibial arteries are patent. IMPRESSION: 1. No significant inflow stenosis bilaterally. 2. Moderate right-sided outflow stenosis. No left-sided outflow stenosis. 3. At least 2 vessel bilateral lower extremity runoff. Dictated by: Keo Pope M.D. on 08/12/2021 at 13:35 Approved by: Keo Pope M.D. on 08/12/2021 at 13:38
== END ==
PROVIDERS: PCP Nurse Practitioner; Referring Provider Nurse Practitioner; Visit Provider Nurse Practitioner
DX: I70.201 Unspecified atherosclerosis of native arteries of extremities, right leg (principal); M62.81 Muscle weakness (generalized); R29.898 Other symptoms and signs involving the musculoskeletal system
CPT/HCPCS: C8902; C8912; C8918

== ENCOUNTER 2021-08-26 08:30 | Outpatient (RCR) | payer MEDICARE, BC, SELFPAY ==
[2020-10-04 13:43] VITALS: BMI 33.3
== END 2021-08-26 12:24 ==
LOC: CAR 08:30
PROVIDERS: PCP Nurse Practitioner; Referring Provider Family Medicine; Visit Provider Family Medicine
DX: I20.9 Angina pectoris, unspecified (principal)
CPT/HCPCS: 93798

== ENCOUNTER → 2021-10-03 06:48 | Outpatient (CLI) | payer MEDICARE, BC, SELFPAY ==
[2020-10-04 13:43] VITALS: BMI 33.3
[2021-10-03 09:01] LABS: Cholesterol 195 mg/dL (140-199); HDL Cholesterol 48 mg/dL (40-60); LDL Cholesterol Calculated 113 mg/dL (<100); Triglycerides 169 mg/dL (35-150)
== END ==
PROVIDERS: PCP Nurse Practitioner; Referring Provider Nurse Practitioner; Visit Provider Nurse Practitioner
DX: E78.5 Hyperlipidemia, unspecified (principal)
CPT/HCPCS: 80061

== ENCOUNTER → 2021-10-11 08:25 | Outpatient (CLI) | payer MEDICARE, BC, SELFPAY ==
[2020-10-04 13:43] VITALS: BMI 33.3
--- NOTE | 2021-10-11 08:26 | DI.RAD.S_ITS ---
PROCEDURE: XR KNEE LT 3V INDICATIONS: Left knee popping, pain TECHNIQUE: 3 views of the knee were acquired. COMPARISON: None. FINDINGS: Bones: No fractures or dislocations. [id number] tricompartmental osteoarthritis is seen more prominent in medial femoral tibial compartment. No suspicious bony lesions. Soft tissues: No significant joint effusion. No suspicious soft tissue calcifications. IMPRESSION: [id number] tricompartmental osteoarthritis. No acute fracture or dislocation. No significant joint effusion. Dictated by: Javon Wallace M.D. on 10/11/2021 at 8:45 Approved by: Javon Wallace M.D. on 10/11/2021 at 8:46
== END ==
PROVIDERS: PCP Nurse Practitioner; Referring Provider Physician Assistant; Visit Provider Physician Assistant
DX: M25.562 Pain in left knee (principal); M17.12 Unilateral primary osteoarthritis, left knee
CPT/HCPCS: 73562

== ENCOUNTER 2021-10-17 12:50 | Emergency (ER) | payer MEDICARE, BC, SELFPAY ==
[2020-10-04 13:43] VITALS: BMI 33.3
[2021-10-17 12:53] VITALS: BP 148/70; PULSE 79; RESP 16; TEMP 36.7; O2SAT 98; BMI 32.4
[2021-10-17 13:12] LABS: Add Manual Diff / Slide Review NO; Basophils Absolute Auto 100 /uL (0-100); Basophils Percent Auto 1.4 % (0-2); Eosinophils Absolute Auto 100 /uL (0-450); Hematocrit 37.7 % (36-46); Hemoglobin 12.9 g/dL (12.0-16.0); Lymphocytes Absolute Auto 1700 /uL (1100-4500); Lymphocytes Percent Auto 26.3 % (25-40); Mean Corpuscular HGB Conc 34.2 % (30-36); Mean Corpuscular Hemoglobin 29.9 PG (26-34); Mean Corpuscular Volume 87.3 fL (80-100); Monocytes Absolute Auto 500 /uL (0-900); Neutrophils Absolute Auto 4200 /uL (1500-7000); Neutrophils Percent Auto 63.3 % (50-75); Platelet Count 232 X10^3/uL (150-400); Red Blood Cell Count 4.32 X10^6/uL (4.0-5.2); Red Cell Distribution Width 14.3 % (11.6-14.8); White Blood Cell Count 6.6 X10^3/uL (4.5-11.0)
[2021-10-17 13:28] LABS: Alanine Aminotransferase 23 IU/L (<35); Albumin 4.7 g/dL (3.5-5.0); Albumin Globulin Ratio 1.7 (1.0-2.8); Alkaline Phosphatase 110 U/L (38-126); Aspartate Aminotransferase 27 IU/L (14-36); BUN Creatinine Ratio 21.8 (6-22); Bilirubin Total 0.4 mg/dL (0.2-1.3); Blood Urea Nitrogen 22 mg/dL (7-17); Calcium 9.9 mg/dL (8.4-10.2); Carbon Dioxide 27 mmol/L (22-32); Chloride 101 mmol/L (98-107); Estimated Glomerular Filt Rate 60 mL/min (>60); Globulin 2.8 g/dL (1.7-4.1); Glucose 133 mg/dL (80-110); HEMOLYSIS 23 (0-50); Lipase 180 U/L (23-300); Potassium 4.2 mmol/L (3.4-5.1); Sodium 137 mmol/L (137-145); Total Protein 7.5 g/dL (6.3-8.2)
[2021-10-17 14:04] VITALS: PULSE 78; O2SAT 96
[2021-10-17 14:05] VITALS: BP 143/69; PULSE 77; O2SAT 96
[2021-10-17 14:30] VITALS: PULSE 77; O2SAT 95
--- NOTE | 2021-10-17 14:51 | DI.CT.S_ITS ---
PROCEDURE: CT ABDOMEN PELVIS W CON INDICATIONS: RLQ pain, hx ibrahima, diverticulitis, total hyst, pancreatitis TECHNIQUE: After the administration of intravenous contrast, axial sections acquired from the lung bases to the pubic symphysis. Coronal and sagittal reformats were performed. For radiation dose reduction, the following was used: automated exposure control, adjustment of mA and/or kV according to patient size. COMPARISON: [facility], CT, CT ABDOMEN PELVIS W CON, 10/21/2020, 8:19. FINDINGS: Image quality: Excellent. Lung bases: Lung bases are clear. Heart size is normal. Solid organs: Liver: The liver has no mass or intrahepatic biliary ductal dilatation. The portal vein and hepatic veins are patent. Biliary: Status post cholecystectomy Pancreas: A 1 cm cystic focus in the head of the pancreas is unchanged compared to 10/21/2020. No ductal dilatation. No surrounding inflammation. Spleen: Normal size. There are no masses. Adrenals: The left adrenal gland has a 1 cm low-density nodule consistent with a benign lipid rich adenoma. Kidneys: No obstructive calculus or hydronephrosis. No solid mass. The left kidney has a simple exophytic cyst measuring 1.5 cm. Peritoneum and bowel: Small hiatal hernia. The distal esophagus is otherwise normal. The stomach is normal. The small bowel has a normal caliber and appearance. The terminal ileum is normal. The large bowel has a normal caliber and appearance. The appendix is normal. No free fluid or air. Nodes and vessels: No retroperitoneal or mesenteric adenopathy by size criteria. Aorta and inferior vena cava are normal in size. Miscellaneous: There is rectus diastasis of the inferior abdomen. PELVIS: Genitourinary: The bladder has no wall thickening or mass. No bladder calcifications. Bones: There is S shaped scoliosis of the lumbar spine. 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 No vertebral body compression fractures. IMPRESSION: 1. No acute abdominal or pelvic abnormality. 2. Normal appendix. 3. Stable left adrenal nodule. 4. Stable cystic focus in the head of the pancreas. 5. Diverticulosis without evidence of diverticulitis. Dictated by: Sam Fox M.D. on 10/17/2021 at 15:30 Approved by: Sam Fox M.D. on 10/17/2021 at 15:35
--- NOTE | 2021-10-17 14:54 | ED_ITS ---
HPI - Abdominal Pain <JENAE David - Last Filed: 10/17/21 20:19> General Chief Complaint: Abdominal Pain Stated Complaint: Rt Sided Abd Pain/Nausea Time Seen by Provider: 10/17/21 14:42 Source: patient Mode of arrival: Ambulatory History of Present Illness HPI narrative: This is a 71-year-old female presents to the emergency department complaining right middle quadrant pain which started this morning. Patient has a history of cholecystectomy, total hysterectomy, pancreatitis and diverticulitis and awoke this morning feeling sharp pain in her right middle quadrant region. She denies any fever, vomiting, changes to her stool, or any urogenital complaints. She denies any dysuria or urinary frequency, endorses that she was up one time last night to void. She states that she had a lot of gas in her bowel yesterday, endorses that her pain is worse after eating. She states that she has had a bowel movement today and yesterday and usually has a daily bowel movement. She denies any belching or dyspepsia. She denies any back pain or flank pain. Related Data Home Medications Medication Instructions Recorded Confirmed aspirin 81 mg tablet,delayed 81 mg PO QPM #0 01/25/17 10/17/21 release aripiprazole 20 mg tablet 10 mg PO QAM 12/05/20 10/17/21 alpha lipoic acid 600 mg capsule 600 mg PO DAILY 03/01/21 10/17/21 isosorbide mononitrate 30 mg 30 mg PO QAM 03/01/21 10/17/21 tablet,extended release 24 hr omega 3 690 mg PO DAILY 03/01/21 10/17/21 spironolactone 25 mg tablet 25 mg PO DAILY 03/01/21 10/17/21 torsemide 10 mg tablet 10 mg PO DAILY 03/01/21 10/17/21 fish oil-vit E-fat acids cap PO 05/17/21 10/17/21 comb.5-herbal comb. 137 400 mg-5 unit capsule (Flax, Fish and Borage Oil) Previous Rx's Medication Instructions Recorded miscellaneous medical supply 1 each .ROUTE .COMPLEX #1 each 08/23/19 losartan 100 mg tablet 100 mg PO DAILY #90 tab 11/13/20 lidocaine HCl 2 % mucosal solution 1 applic MUCOUS MEMBRANE Q8H PRN 04/04/21 (Lidocaine Viscous) #100 ml nitroglycerin 0.4 mg sublingual 0.4 mg SUBLINGUAL Q5-15M PRN #30 05/17/21 tablet tab niacin 500 mg tablet,extended 500 mg PO BEDTIME #30 tab 10/02/21 release 24 hr (Niaspan) ibuprofen 800 mg tablet 800 mg PO Q6H PRN #60 tab 10/10/21 Allergies Allergy/AdvReac Type Severity Reaction Status Date / Time cimetidine [From TAGAMET] Allergy Mild hallucinati Verified 10/17/21 12:54 ons codeine [CODEINE] Allergy Mild hallucinati Verified 10/17/21 12:54 ons lisinopril [LISINOPRIL] Allergy Mild cough/GI Verified 10/17/21 12:54 issues ranitidine [From ZANTAC] Allergy Mild hallucinati Verified 10/17/21 12:54 ons prednisone Allergy Unknown Verified 10/17/21 12:54 ciprofloxacin AdvReac Severe Weakness Verified 10/17/21 12:54 atorvastatin [From Lipitor] AdvReac Intermediate Muscle Verified 10/17/21 12:54 aches and pains metoprolol AdvReac Mild Verified 10/17/21 12:54 Review of Systems <JENAE David - Last Filed: 10/17/21 20:19> Review of Systems Narrative: General: denies fever, chills, malaise, sweats, fatigue Head/Neck: denies headache, neck pain, dizziness Eyes: denies visual changes, eye pain Cardio: denies chest pain, palpitations, edema Respiratory: denies dyspnea, cough, orthopnea GI: Endorses right sided mid abdominal pain with nausea, denies vomiting, or diarrhea : denies dysuria, hematuria, urinary retention, frequency or incontinence MSK: denies joint pain, muscle weakness Skin: denies rash, itching, skin lesions or other Neuro: denies numbness, tingling Patient History <JENAE David - Last Filed: 10/17/21 20:19> Medical History Abdominal pain Activity intolerance Acute pancreatitis Adrenal adenoma Adverse effects of medication Anemia Anosmia Atypical chest pain Cervical dystonia (1986) Cervical dystonia Chicken pox (1956) Cholecystectomy planned Chronic fatigue (08/07/15) Chronic venous insufficiency (10/11/15) Colon polyps Coronary artery disease Cough CTS (carpal tunnel syndrome) (1986) Denervation of muscle Depression (1974) Diastasis of rectus abdominis (08/07/15) Diastolic heart failure Diverticulitis large intestine Dyspnea Dyspnea Dyspnea on exertion Episodic lightheadedness Fatigue Gastritis Generalized abdominal pain (08/07/15) Generalized muscle weakness Headache History of coronary artery disease History of progressive weakness History of unstable angina Hyperlipidemia Hypertension Itch of skin Measles (1957) Metallic taste (10/11/15) Mumps (1958) Myasthenia gravis Neoplasm of uncertain behavior of skin (10/11/15) NSAID induced gastritis Osteopenia after menopause Osteoporosis Peripheral arterial disease Peripheral neuropathy (2012) Piriformis syndrome of right side Progressive neurological disorder Right hip pain Shortness of breath (08/27/15) Sjogren's syndrome (08/07/15) Sjogren's syndrome (2012) Skin cancer (2015) Sleep apnea (2009) Small fiber polyneuropathy SOB (shortness of breath) (2010) Status post DANILO-BSO Visual disturbance Surgical History Anesthesia complication History of carpal tunnel repair (1989) History of cervical spinal surgery (07/2008) History of hernia repair History of laparoscopic cholecystectomy (2006) S/P DANILO-BSO (total abdominal hysterectomy and bilateral salpingo-oophorectomy) (01/2007) Status post hernia repair (2013) Status post hernia repair (2007) Family History Brother Age: 64 Prostate cancer Heart disease Hypertension High cholesterol Heart attack Brother Age: 62 Hypertension Mental health problem Kidney transplant recipient Chronic kidney disease with end stage renal failure on dialysis Father Colon cancer Heart disease Mental health problem Heart failure Grandfather Heart disease Hypertension Brain aneurysm Mother Cancer Hypertension NHL (non-Hodgkin's lymphoma) Grandmother Stroke Sister Age: 70 Celiac disease High cholesterol Mental health problem Thyroid disorder Sister Age: 66 Psoriatic arthritis Thyroid disorder Grandmother Alzheimer's disease Grandfather Colon cancer Sister Breast cancer Sister Suicide Brother No problems noted. Sister Thyroid disorder Social History marital status: household members: spouse occupational status: previously employed Smoking Status: Never smoker alcohol intake: never substance use type: does not use Smoking Status: Never smoker alcohol intake frequency: holidays/special occasions only Substance Use Type: does not use Exam <JENAE David - Last Filed: 10/17/21 20:19> Narrative Exam Narrative: Independently reviewed vitals signs and nursing notes. General: Awake, alert, nontoxic, no cardiorespiratory distress Head/Neck: Atraumatic, neck supple Eyes: EOMI, conjunctiva normal Nose: nares patent, no rhinorrhea Mouth/Throat: moist mucus membranes, posterior pharynx without erythema or [place]an Cardio: Regular rate and rhythm, no peripheral edema Respiratory: respirations unlabored without wheezing, stridor, or rales. No retractions, hypoxia or tachypnea, breath sounds are clear throughout GI: Abdomen soft, obese, mildly tender over McBurney's point, nontender to palpation in all other areas, no guarding or rebound tenderness, bowel tones are active MSK: Moves all extremities, neurovascularly intact, range of motion without deficit Skin: Normal capillary refill, no rash Neuro: Normal speech and cognition, normal gait Initial Vital Signs Initial Vital Signs: Vital Signs Temperature 98.1 F 10/17/21 12:53 Pulse Rate 79 10/17/21 12:53 Respiratory Rate 16 10/17/21 12:53 Blood Pressure 148/70 H 10/17/21 12:53 Pulse Oximetry 98 10/17/21 12:53 <Yina Madrigal DO - Last Filed: 10/24/21 07:38> Initial Vital Signs Initial Vital Signs: Vital Signs Temperature 98.1 F 10/17/21 12:53 Pulse Rate 79 10/17/21 12:53 Respiratory Rate 16 10/17/21 12:53 Blood Pressure 148/70 H 10/17/21 12:53 Pulse Oximetry 98 10/17/21 12:53 Course <JENAE David - Last Filed: 10/17/21 20:19> Orders Ordered: Discontinued Medications Ketorolac Tromethamine (Ketorolac 30 Mg/Ml Vial) 15 mg IV NOW ONE Stop: 10/17/21 16:26 Last Admin: 10/17/21 16:34 Dose: 15 mg Documented by: CAROLINA Ondansetron HCl (Ondansetron 4 Mg Odt) 4 mg SL NOW ONE Stop: 10/17/21 14:59 Last Admin: 10/17/21 15:21 Dose: 4 mg Documented by: FUENTES Vital Signs Vital signs: Vital Signs - 8 hr 10/17/21 12:53 10/17/21 14:04 10/17/21 14:05 Temperature 98.1 F Pulse Rate 79 78 77 Respiratory Rate 16 Blood Pressure 148/70 H 143/69 H Pulse Oximetry 98 96 96 10/17/21 14:30 10/17/21 16:15 10/17/21 16:16 Temperature Pulse Rate 77 64 62 Respiratory Rate 17 Blood Pressure 146/65 H Pulse Oximetry 95 97 98 <Yina Madrigal DO - Last Filed: 10/24/21 07:38> Orders Ordered: Discontinued Medications Ketorolac Tromethamine (Ketorolac 30 Mg/Ml Vial) 15 mg IV NOW ONE Stop: 10/17/21 16:26 Last Admin: 10/17/21 16:34 Dose: 15 mg Documented by: CAROLINA Ondansetron HCl (Ondansetron 4 Mg Odt) 4 mg SL NOW ONE Stop: 10/17/21 14:59 Last Admin: 10/17/21 15:21 Dose: 4 mg Documented by: FUENTES Vital Signs Vital signs: Vital Signs - 8 hr 10/17/21 12:53 10/17/21 14:04 10/17/21 14:05 Temperature 98.1 F Pulse Rate 79 78 77 Respiratory Rate 16 Blood Pressure 148/70 H 143/69 H Pulse Oximetry 98 96 96 10/17/21 14:30 10/17/21 16:15 10/17/21 16:16 Temperature Pulse Rate 77 64 62 Respiratory Rate 17 Blood Pressure 146/65 H Pulse Oximetry 95 97 98 MDM - Abdominal Pain <JENAE David - Last Filed: 10/17/21 20:19> Lab Data Result diagrams: 10/17/21 13:05 10/17/21 13:05 Labs: Lab Results 10/17/21 10/17/21 10/17/21 Range/Units 13:05 13:05 13:05 WBC 6.6 (4.5-11.0) X10^3/uL RBC 4.32 (4.0-5.2) X10^6/uL Hgb 12.9 (12.0-16.0) g/dL Hct 37.7 (36-46) % MCV 87.3 (80-100) fL MCH 29.9 (26-34) PG MCHC 34.2 (30-36) % RDW 14.3 (11.6-14.8) % Plt Count 232 (150-400) X10^3/uL Neut % (Auto) 63.3 (50-75) % Lymph % (Auto) 26.3 (25-40) % [place] % (Auto) 7.0 (3-14) % Eos % (Auto) 2.0 (2-4) % Baso % (Auto) 1.4 (0-2) % Neut # (Auto) 4200 (5994-3597) /uL Lymph # (Auto) 1700 (6631-5155) /uL [place] # (Auto) 500 (0-900) /uL Eos # (Auto) 100 (0-450) /uL Baso # (Auto) 100 (0-100) /uL Sodium 137 (137-145) mmol/L Potassium 4.2 (3.4-5.1) mmol/L Chloride 101 (98-107) mmol/L Carbon Dioxide 27 (22-32) mmol/L BUN 22 H (7-17) mg/dL Creatinine 1.01 (0.52-1.04) mg/dL Estimated GFR 60 (>60) mL/min BUN/Creatinine Ratio 21.8 (6-22) Glucose 133 H (80-110) mg/dL Calcium 9.9 (8.4-10.2) mg/dL Total Bilirubin 0.4 (0.2-1.3) mg/dL AST 27 (14-36) IU/L ALT 23 (<35) IU/L Alkaline Phosphatase 110 (38-126) U/L Total Creatine Kinase (30-135) U/L CK-MB (CK-2) CK-MB (CK-2) Rel Index Troponin I (0.01-0.034) ng/mL C-Reactive Protein < 0.5 (<1.0) mg/dL Total Protein 7.5 (6.3-8.2) g/dL Albumin 4.7 (3.5-5.0) g/dL Globulin 2.8 (1.7-4.1) g/dL Albumin/Globulin Ratio 1.7 (1.0-2.8) Lipase 180 (23-300) U/L Procalcitonin (<0.5) ng/mL 10/17/21 10/17/21 Range/Units 13:05 13:05 WBC (4.5-11.0) X10^3/uL RBC (4.0-5.2) X10^6/uL Hgb (12.0-16.0) g/dL Hct (36-46) % MCV (80-100) fL MCH (26-34) PG MCHC (30-36) % RDW (11.6-14.8) % Plt Count (150-400) X10^3/uL Neut % (Auto) (50-75) % Lymph % (Auto) (25-40) % [place] % (Auto) (3-14) % Eos % (Auto) (2-4) % Baso % (Auto) (0-2) % Neut # (Auto) (3135-1260) /uL Lymph # (Auto) (0126-0486) /uL [place] # (Auto) (0-900) /uL Eos # (Auto) (0-450) /uL Baso # (Auto) (0-100) /uL Sodium (137-145) mmol/L Potassium (3.4-5.1) mmol/L Chloride (98-107) mmol/L Carbon Dioxide (22-32) mmol/L BUN (7-17) mg/dL Creatinine (0.52-1.04) mg/dL Estimated GFR (>60) mL/min BUN/Creatinine Ratio (6-22) Glucose (80-110) mg/dL Calcium (8.4-10.2) mg/dL Total Bilirubin (0.2-1.3) mg/dL AST (14-36) IU/L ALT (<35) IU/L Alkaline Phosphatase (38-126) U/L Total Creatine Kinase 97 (30-135) U/L CK-MB (CK-2) TNP CK-MB (CK-2) Rel Index TNP Troponin I < 0.012 (0.01-0.034) ng/mL C-Reactive Protein (<1.0) mg/dL Total Protein (6.3-8.2) g/dL Albumin (3.5-5.0) g/dL Globulin (1.7-4.1) g/dL Albumin/Globulin Ratio (1.0-2.8) Lipase (23-300) U/L Procalcitonin 0.05 (<0.5) ng/mL Point of care testing: Urine Dip Bedside Urine Glucose Negative Bedside Urine Bilirubin - Negative Bedside Urine Ketone - Negative Urine Specific [place] 1.010 Bedside Urine Occult Blood - Negative Bedside Urine pH 6.5 Bedside Urine Protein - Negative Bedside Urine Urobilinogen - Negative Bedside Urine Nitrite - Negative Bedside Urine Leukocytes - Negative Esterase Imaging Data CT scan - abdomen/pelvis: Radiologist's Impression: PROCEDURE:? CT ABDOMEN PELVIS W CON ? INDICATIONS:? RLQ pain, hx ibrahima, diverticulitis, total hyst, pancreatitis ? TECHNIQUE:? After the administration of intravenous contrast, axial sections acquired from the lung bases to the pubic symphysis.? Coronal and sagittal reformats were performed.? For radiation dose reduction, the following was used:? automated exposure control, adjustment of mA and/or kV according to patient size.? ? COMPARISON:? [facility], CT, CT ABDOMEN PELVIS W CON, 10/21/2020, 8:19. ? FINDINGS: Image quality:? Excellent.? ? Lung bases:? Lung bases are clear.? Heart size is normal. ? Solid organs:? Liver: The liver has no mass or intrahepatic biliary ductal dilatation. The portal vein and hepatic veins are patent. Biliary:? Status post cholecystectomy Pancreas:? A 1 cm cystic focus in the head of the pancreas is unchanged compared to 10/21/2020.? No ductal dilatation.? No surrounding inflammation.? Spleen: Normal size. There are no masses. Adrenals:? The left adrenal gland has a 1 cm low-density nodule consistent with a benign lipid rich adenoma. Kidneys: No obstructive calculus or hydronephrosis.? No solid mass.? The left kidney has a simple exophytic cyst measuring 1.5 cm. ? Peritoneum and bowel:? Small hiatal hernia.? The distal esophagus is otherwise normal.? The stomach is normal.? The small bowel has a normal caliber and appearance. The terminal ileum is normal. The large bowel has a normal caliber and appearance.? The appendix is normal. No free fluid or air.? ? Nodes and vessels:? No retroperitoneal or mesenteric adenopathy by size cri teria.? Aorta and inferior vena cava are normal in size.? ? Miscellaneous:? There is rectus diastasis of the inferior abdomen. ? PELVIS:? Genitourinary:? The bladder has no wall thickening or mass. No bladder calcifications. ? Bones:? There is S shaped scoliosis of the lumbar spine.? Tarlov cysts are noted within the sacrum.? No vertebral body compression fractures.? ? IMPRESSION: 1. No acute abdominal or pelvic abnormality. 2. Normal appendix. 3. Stable left adrenal nodule. 4. Stable cystic focus in the head of the pancreas. 5. Diverticulosis without evidence of diverticulitis.? ? ? Dictated by: Sam Fox M.D. on 10/17/2021 at 15:30 ? ? Approved by: Sam Fox M.D. on 10/17/2021 at 15:35 ? MDM Narrative Medical decision making narrative: This is a 71-year-old female presents to the emergency department with acute onset of right lower quadrant pain today, She has a history of cholecystectomy, total hysterectomy, diverticulosis/itis, and pancreatitis. Patient denies any recent illness, fever, vomiting, she endorses nausea and feeling fatigued with this pain that started today. She denies any dysuria, flank pain, changes to her stool, states she has normal daily bowel movements. Lab work was grossly reassuring, there is no leukocytosis, no electrolyte abnormality, creatinine 1.01 is stable, total bilirubin is 0.4 and is stable, no elevation in liver enzymes troponin is negative, CRP was less than 0.5, procalcitonin 0.05, lipase 180. Specific gravity of 1.01, negative for all abnormalities. Patient's exam is somewhat reassuring, she has active bowel tones x4 quadrants, she endorses fe eling gaseous yesterday, she does have urine her bowels today. CT abdomen pelvis with contrast was obtained due to patient's history of pancreatitis without elevated lipase, concern for appendicitis as she had tenderness over McBurney point, CT shows no acute abdominal or pelvic abnormality, normal appendix, stable left adrenal nodule, stable cystic foci in the head of the pancreas, diverticulosis without evidence of diverticulitis. There are no emergent causes to her symptoms found on workup and exam today. Recommend patient have a low fat, clear diet, encourage close follow-up with her primary doctor, return to the emergency department for any worsening of her symptoms, vomiting, fever, or other new symptom. No peritoneal signs on abdominal exam. Patient remains p.o. tolerant. Serial abdominal exam without increase in abdominal pain. Given history and exam, low suspicion for acute abdominal process, such as acute pancreatitis, bowel obstruction, perforated viscus, atypical appendicitis, colitis, diverticulitis or torsion. Extensive conversation about ER return precautions and need for close follow-up. Patient is appropriate and amenable to discharge home. Vital signs are stable on repeat examination is unremarkable. Patient has been informed of results. Patient has been given strict return to ER precautions for any new or worsening symptoms. Patient understands to follow up closely with outpatient providers as instructed. Patient understands plan and agrees to discharge home. All questions and concerns answered at this time. <Yina Madrigal, DO - Last Filed: 10/24/21 07:38> Lab Data Labs: Lab Results 10/17/21 10/17/21 10/17/21 Range/Units 13:05 13:05 13:05 WBC 6.6 (4.5-11.0) X10^3/uL RBC 4.32 (4.0-5.2) X10^6/uL Hgb 12.9 (12.0-16.0) g/dL Hct 37.7 (36-46) % MCV 87.3 (80-100) fL MCH 29.9 (26-34) PG MCHC 34.2 (30-36) % RDW 14.3 (11.6-14.8) % Plt Count 232 (150-400) X10^3/uL Neut % (Auto) 63.3 (50-75) % Lymph % (Auto) 26.3 (25-40) % [place] % (Auto) 7.0 (3-14) % Eos % (Auto) 2.0 (2-4) % Baso % (Auto) 1.4 (0-2) % Neut # (Auto) 4200 (5827-6276) /uL Lymph # (Auto) 1700 (8960-8560) /uL [place] # (Auto) 500 (0-900) /uL Eos # (Auto) 100 (0-450) /uL Baso # (Auto) 100 (0-100) /uL Sodium 137 (137-145) mmol/L Potassium 4.2 (3.4-5.1) mmol/L Chloride 101 (98-107) mmol/L Carbon Dioxide 27 (22-32) mmol/L BUN 22 H (7-17) mg/dL Creatinine 1.01 (0.52-1.04) mg/dL Estimated GFR 60 (>60) mL/min BUN/Creatinine Ratio 21.8 (6-22) Glucose 133 H (80-110) mg/dL Calcium 9.9 (8.4-10.2) mg/dL Total Bilirubin 0.4 (0.2-1.3) mg/dL AST 27 (14-36) IU/L ALT 23 (<35) IU/L Alkaline Phosphatase 110 (38-126) U/L Total Creatine Kinase (30-135) U/L CK-MB (CK-2) CK-MB (CK-2) Rel Index Troponin I (0.01-0.034) ng/mL C-Reactive Protein < 0.5 (<1.0) mg/dL Total Protein 7.5 (6.3-8.2) g/dL Albumin 4.7 (3.5-5.0) g/dL Globulin 2.8 (1.7-4.1) g/dL Albumin/Globulin Ratio 1.7 (1.0-2.8) Lipase 180 (23-300) U/L Procalcitonin (<0.5) ng/mL 10/17/21 10/17/21 Range/Units 13:05 13:05 WBC (4.5-11.0) X10^3/uL RBC (4.0-5.2) X10^6/uL Hgb (12.0-16.0) g/dL Hct (36-46) % MCV (80-100) fL MCH (26-34) PG MCHC (30-36) % RDW (11.6-14.8) % Plt Count (150-400) X10^3/uL Neut % (Auto) (50-75) % Lymph % (Auto) (25-40) % [place] % (Auto) (3-14) % Eos % (Auto) (2-4) % Baso % (Auto) (0-2) % Neut # (Auto) (0360-1780) /uL Lymph # (Auto) (6406-3083) /uL [place] # (Auto) (0-900) /uL Eos # (Auto) (0-450) /uL Baso # (Auto) (0-100) /uL Sodium (137-145) mmol/L Potassium (3.4-5.1) mmol/L Chloride (98-107) mmol/L Carbon Dioxide (22-32) mmol/L BUN (7-17) mg/dL Creatinine (0.52-1.04) mg/dL Estimated GFR (>60) mL/min BUN/Creatinine Ratio (6-22) Glucose (80-110) mg/dL Calcium (8.4-10.2) mg/dL Total Bilirubin (0.2-1.3) mg/dL AST (14-36) IU/L ALT (<35) IU/L Alkaline Phosphatase (38-126) U/L Total Creatine Kinase 97 (30-135) U/L CK-MB (CK-2) TNP CK-MB (CK-2) Rel Index TNP Troponin I < 0.012 (0.01-0.034) ng/mL C-Reactive Protein (<1.0) mg/dL Total Protein (6.3-8.2) g/dL Albumin (3.5-5.0) g/dL Globulin (1.7-4.1) g/dL Albumin/Globulin Ratio (1.0-2.8) Lipase (23-300) U/L Procalcitonin 0.05 (<0.5) ng/mL Point of care testing: Urine Dip Bedside Urine Glucose Negative Bedside Urine Bilirubin - Negative Bedside Urine Ketone - Negative Urine Specific [place] 1.010 Bedside Urine Occult Blood - Negative Bedside Urine pH 6.5 Bedside Urine Protein - Negative Bedside Urine Urobilinogen - Negative Bedside Urine Nitrite - Negative Bedside Urine Leukocytes - Negative Esterase Discharge Plan Departure Patient Disposition: Home Clinical Impression: Abdominal pain Qualifiers: Abdominal location: right lower quadrant Qualified Code(s): R10.31 - Right lower quadrant pain Instructions: DI for Acute Abdominal Pain Activity Restrictions/Additional Instructions: *You have been diagnosed with abdominal pain without emergent cause. Your lab work is quite reassuring, there are no signs of inflammation, infection, biliary obstruction or pancreatitis, or diverticulitis, or appendicitis. Your CT showed abdominal pelvic abnormality, a normal appendix, and diverticulosis without any evidence of diverticulitis or any inflammation. Please continue taking your medications as they are prescribed, you may take Tylenol, stay hydrated for this type of pain. Try to avoid gaseous foods, caffeine, dairy, and see if this starts to improve over the next 24 hours with good hydration. There were no dangerous causes to your pain found today, please return to the emergency department if you spike a fever, started vomiting, have any worsening pain, or new symptom. I hope you feel better soon. *What to do: *Please continue to take your regular medications as directed. [ ] New medication prescriptions sent to your pharmacy: [ ] [ ] New medication written as a paper prescription [x ] No new medications given *Please follow up with your primary care provider in 2-3 days, call for an appointment. Let them know you were seen in the Emergency Department and that we asked that you be seen for follow-up. We will electronically transmit a record of today's note if your PCP is in our system *If you do not have a primary care provider please contact [phone] to establish care with one of the [facility] primary care providers. *Return to Emergency Department if you should have any new, worsening or concerning symptoms, such as [fever greater than 101F, chills, worsening pain, persistent vomiting or other bothersome symptoms] Prescriptions: No Action lidocaine HCl [Lidocaine Viscous] 2 % solution 1 applic mucous membrane Q8H PRN (Reason: pain) Qty: 100 0RF Rx Instructions: Mix 10mL of viscous lidocaine, 10mL of Mag-Al Plus, and 10mL of oral benadryl suspension. Swish medication in mouth then spit out up to every 8 hours for pain. aspirin 81 MG tablet,delayed release (DR/EC) 81 mg PO QPM Qty: 0 0RF miscellaneous medical supply Misc 1 each .ROUTE .COMPLEX Qty: 1 0RF Rx Instructions: Medical equipment: [employer] [place] nitro euro style losartan 100 mg tablet 100 mg PO DAILY Qty: 90 3RF ibuprofen 800 mg tablet 800 mg PO Q6H PRN (Reason: pain) Qty: 60 3RF Rx Instructions: Take 1 tab every 6 hours as needed for pain isosorbide mononitrate 30 mg tablet extended release 24 hr 30 mg PO QAM 0RF torsemide 10 mg tablet 10 mg PO DAILY 0RF spironolactone 25 mg tablet 25 mg PO DAILY 0RF omega 3 690 mg PO DAILY 0RF alpha lipoic acid 600 mg capsule 600 mg PO DAILY 0RF nitroglycerin 0.4 mg tablet, sublingual 0.4 mg sublingual Q5-15M PRN (Reason: angina) Qty: 30 3RF Rx Instructions: do not exceed 3 doses per episode Flax, Fish and Borage Oil 400-5 mg-unit capsule PO 0RF niacin [Niaspan Extended-Release] 500 mg tablet extended release 24 hr 500 mg PO BEDTIME Qty: 30 2RF Rx Instructions: Take 1 tab at bedtime daily aripiprazole 20 mg tablet 10 mg PO QAM 0RF Referrals: Doris Schreiber ARNP [Primary Care Provider] - <Yina Madrigal DO - Last Filed: 10/24/21 07:38> Cosign ED Attending Cosmikeature Attestation: I was immediately available in the department for consultation. Documentation has been reviewed.
[2021-10-17 15:13] LABS: Creatine Kinase 97 U/L (30-135)
[2021-10-17 15:17] LABS: C-Reactive Protein Quant < 0.5 mg/dL (<1.0)
[2021-10-17] MEDS: ONDANSETRON 4 MG ODT SL (15:21)
[2021-10-17 15:25] LABS: Troponin I < 0.012 ng/mL (0.01-0.034)
[2021-10-17 15:30] LABS: Procalcitonin 0.05 ng/mL (<0.5)
[2021-10-17 16:15] VITALS: PULSE 64; O2SAT 97
[2021-10-17 16:16] VITALS: BP 146/65; PULSE 62; RESP 17; O2SAT 98
[2021-10-17] MEDS: KETOROLAC 30 MG/ML VIAL 15 MG IV (16:34)
== END 2021-10-17 16:45 | disposition home or self-care (01) ==
PROVIDERS: Emergency Medicine; Emergency Provider Nurse Practitioner Critical Care Medicine; PCP Nurse Practitioner
DX: R10.31 Right lower quadrant pain (principal); E66.9 Obesity, unspecified; Z68.32 Body mass index [BMI] 32.0-32.9, adult
CPT/HCPCS: 36415; 74177; 80053; 81003; 82550; 83690; 84145; 84484; 85025; 86140; 93005; 93010; 96374; 99284; J1885; Q9967

== ENCOUNTER → 2021-11-02 13:21 | Outpatient (CLI) | payer MEDICARE, BC, SELFPAY ==
[2020-10-04 13:43] VITALS: BMI 33.3
[2021-11-02 14:15] LABS: Influenza A - CEPHEID Flu A NEGATIVE (NEGATIVE); Influenza B - CEPHEID Flu B NEGATIVE (NEGATIVE)
[2021-11-02 15:46] LABS: COVID-19 CEPHEID PCR (VTM/NP) Negative (Negative)
== END ==
PROVIDERS: PCP Nurse Practitioner; Visit Provider Physician Assistant
DX: R05.9 Cough, unspecified (principal); Z20.822 Contact with and (suspected) exposure to COVID-19
CPT/HCPCS: 0240U

== ENCOUNTER → 2021-11-05 19:00 | Outpatient (CLI) | payer MEDICARE, BC, SELFPAY ==
[2020-10-04 13:43] VITALS: BMI 33.3
--- NOTE | 2021-11-05 19:05 | DI.RAD.S_ITS ---
PROCEDURE: XR CHEST 2V INDICATIONS: COVID exposure, worsened symptoms x7d TECHNIQUE: 2 views of the chest were acquired. COMPARISON: [facility], CR, XR CHEST 2V, 06/25/2021, 12:26. FINDINGS: Surgical changes and devices: None. Lungs and pleura: Lungs are clear. No pleural effusions or pneumothorax. Mediastinum: Mediastinal contours are normal. Heart size is normal. Bones and chest wall: No suspicious bony abnormalities. Soft tissues appear unremarkable. IMPRESSION: No acute process. Dictated by: Keo Pope M.D. on 11/05/2021 at 19:24 Approved by: Keo Pope M.D. on 11/05/2021 at 19:24
== END ==
PROVIDERS: PCP Nurse Practitioner; Referring Provider Physician Assistant; Visit Provider Physician Assistant
DX: R53.1 Weakness (principal); Z20.822 Contact with and (suspected) exposure to COVID-19
CPT/HCPCS: 71046

== ENCOUNTER 2021-11-08 10:47 | Emergency (ER) | payer MEDICARE, BC, SELFPAY ==
[2020-10-04 13:43] VITALS: BMI 33.3
[2021-11-08] VITALS (9 sets, daily range): BP systolic 117–159; BP diastolic 66–89; PULSE 54–70; RESP 12–21; TEMP 36.6; O2SAT 95–100; BMI 32.1
--- NOTE | 2021-11-08 11:12 | DI.RAD.S_ITS ---
PROCEDURE: XR CHEST 1V INDICATIONS: chest pain TECHNIQUE: One view of the chest was acquired. COMPARISON: [facility], CR, XR CHEST 2V, 11/05/2021, 18:57. FINDINGS: Surgical changes and devices: None. Lungs and pleura: Lungs are clear. No pleural effusions or pneumothorax. Mediastinum: Mediastinal contours appear normal. Heart size is normal. Bones and chest wall: No suspicious bony lesions. Overlying soft tissues appear unremarkable. IMPRESSION: No acute cardiopulmonary abnormalities or focal airspace disease. Dictated by: Jimbo Turk M.D. on 11/08/2021 at 11:38 Approved by: Jimbo Turk M.D. on 11/08/2021 at 11:38
[2021-11-08 11:36] LABS: COVID19 -Nasal RAPID Negative (Negative)
[2021-11-08 12:05] LABS: Add Manual Diff / Slide Review NO; Basophils Absolute Auto 100 /uL (0-100); Basophils Percent Auto 1.1 % (0-2); Eosinophils Absolute Auto 200 /uL (0-450); Eosinophils Percent Auto 2.9 % (2-4); Lymphocytes Absolute Auto 1900 /uL (1100-4500); Lymphocytes Percent Auto 29.1 % (25-40); Mean Corpuscular HGB Conc 34.1 % (30-36); Mean Corpuscular Hemoglobin 29.8 PG (26-34); Mean Corpuscular Volume 87.6 fL (80-100); Monocytes Absolute Auto 500 /uL (0-900); Monocytes Percent Auto 7.9 % (3-14); Neutrophils Absolute Auto 3900 /uL (1500-7000); Platelet Count 245 X10^3/uL (150-400); Red Blood Cell Count 4.34 X10^6/uL (4.0-5.2); Red Cell Distribution Width 14.2 % (11.6-14.8); White Blood Cell Count 6.6 X10^3/uL (4.5-11.0)
[2021-11-08 12:08] LABS: Prothrombin Time 10.9 SECONDS (10.1-12.7)
[2021-11-08 12:10] LABS: PTT Partial Thromboplastin Tim 34 SECONDS (26.4-36.2)
[2021-11-08 12:11] LABS: Alanine Aminotransferase 33 IU/L (<35); Albumin 4.6 g/dL (3.5-5.0); Albumin Globulin Ratio 1.4 (1.0-2.8); Alkaline Phosphatase 107 U/L (38-126); Aspartate Aminotransferase 47 IU/L (14-36); BUN Creatinine Ratio 18.5 (6-22); Bilirubin Total 0.8 mg/dL (0.2-1.3); Blood Urea Nitrogen 17 mg/dL (7-17); Calcium 9.4 mg/dL (8.4-10.2); Carbon Dioxide 24 mmol/L (22-32); Chloride 104 mmol/L (98-107); Creatine Kinase 80 U/L (30-135); Estimated Glomerular Filt Rate > 60 mL/min (>60); Globulin 3.4 g/dL (1.7-4.1); Glucose 89 mg/dL (80-110); Lipase 112 U/L (23-300); Magnesium 2.1 mg/dL (1.6-2.3); Potassium 5.3 mmol/L (3.4-5.1); Sodium 138 mmol/L (137-145)
[2021-11-08 12:12] LABS: HEMOLYSIS 131 (0-50)
[2021-11-08 12:23] LABS: Troponin I < 0.012 ng/mL (0.01-0.034)
[2021-11-08] MEDS: KETOROLAC 30 MG/ML VIAL 15 MG IV (12:45)
[2021-11-08] MEDS: LACTATED RINGERS 500 ML 1000 ML IV (12:45)
[2021-11-08] MEDS: methocarbamoL 500 MG TABLET PO (12:45)
[2021-11-08] MEDS: guaiFENesin ER 600 MG TAB PO (12:51)
[2021-11-08] MEDS: LORATADINE 10 MG TABLET PO (12:51)
[2021-11-08 13:05] LABS: NT-proBNP (BNP-Adult 18+) 57 pg/mL (<125)
--- NOTE | 2021-11-08 13:58 | ED_ITS ---
HPI - URI/Sore Throat <Kimberly Carranza, [facility] - Last Filed: 11/08/21 17:20> General Chief Complaint: Upper Respiratory Symptoms Stated Complaint: feeling sick, has Covid day 11 Time Seen by Provider: 11/08/21 12:02 Source: patient Mode of arrival: Ambulatory History of Present Illness HPI Narrative: This is a 71 year female who presents to the emergency department complaining of 11 days of fatigue, shortness of breath with exertion, nausea, headache, sore throat, brain fog and states that her is positive for COVID, she states that they were both exposed on a cruise to [place], and both started having symptoms on October 29. Patient denies having any chest pain, any shortness of breath at rest, any diaphoresis, fevers, or chills. She states that she is just not getting better, has a mildly productive cough, and feels fatigued each day. She endorses having muscle aches, denies any trauma, denies any mental status changes, syncope, or weakness. She states that she is vaccinated for COVID x4. She was seen in the walk-in clinic on 11/02/2021, her COVID, influenza a and B were all negative that day. Related Data Home Medications Medication Instructions Recorded Confirmed aspirin 81 mg tablet,delayed 81 mg PO QPM ##0 01/25/17 11/05/21 release aripiprazole 20 mg tablet 10 mg PO QAM 12/05/20 11/05/21 alpha lipoic acid 600 mg capsule 600 mg PO DAILY 03/01/21 11/05/21 isosorbide mononitrate 30 mg 30 mg PO QAM 03/01/21 11/05/21 tablet,extended release 24 hr omega 3 690 mg PO DAILY 03/01/21 11/05/21 spironolactone 25 mg tablet 25 mg PO DAILY 03/01/21 11/05/21 torsemide 10 mg tablet 10 mg PO DAILY 03/01/21 11/05/21 fish oil-vit E-fat acids cap PO 05/17/21 11/05/21 comb.5-herbal comb. 137 400 mg-5 unit capsule (Flax, Fish and Borage Oil) Previous Rx's Medication Instructions Recorded miscellaneous medical supply 1 each .Route .COMPLEX to aid in 08/23/19 walking and ADL's #1 ea losartan 100 mg tablet 100 mg PO DAILY #90 tabs 11/13/20 lidocaine HCl 2 % mucosal solution 1 applic mucous membrane Q8H PRN 04/04/21 (Lidocaine Viscous) pain #100 mL nitroglycerin 0.4 mg sublingual 0.4 mg sublingual Q5-15M PRN 05/17/21 tablet angina #30 tabs niacin 500 mg tablet,extended 500 mg PO BEDTIME #30 tabs 10/02/21 release 24 hr (Niaspan) ibuprofen 800 mg tablet 800 mg PO Q6H PRN pain #60 tabs 10/10/21 cetirizine 10 mg capsule (All Day 10 mg PO DAILY PRN allergy 11/08/21 Allergy (cetirizine)) symptoms #30 caps cyclobenzaprine 5 mg tablet 5 mg PO DAILY PRN muscle spasm #20 11/08/21 tabs Allergies Allergy/AdvReac Type Severity Reaction Status Date / Time prednisone Allergy Unknown Verified 11/13/21 16:10 ciprofloxacin AdvReac Severe Weakness Verified 11/13/21 16:10 atorvastatin [From Lipitor] AdvReac Intermediate Muscle Verified 11/13/21 16:10 aches and pains cimetidine [From TAGAMET] AdvReac Mild hallucinati Verified 11/13/21 16:10 ons codeine [CODEINE] AdvReac Mild hallucinati Verified 11/13/21 16:10 ons lisinopril [LISINOPRIL] AdvReac Mild cough/GI Verified 11/13/21 16:10 issues metoprolol AdvReac Mild Verified 11/13/21 16:10 ranitidine [From ZANTAC] AdvReac Mild hallucinati Verified 11/13/21 16:10 ons Review of Systems <BRENDA DavidP - Last Filed: 11/08/21 17:20> Review of Systems Narrative: General: denies fever, chills, endorses fatigue and muscle aches Head/Neck: Endorses mild headache, denies neck pain Eyes: denies visual changes, eye pain Cardio: denies chest pain, palpitations Respiratory: denies shortness of breath at rest, endorses exertional shortness of breath and a frequent but mildly productive cough GI: denies abdominal pain, nausea, vomiting, or diarrhea : denies dysuria, hematuria or flank pain MSK: denies new joint pain, muscle weakness or swelling Skin: denies rash, itching or wound Neuro: denies numbness, tingling, dizziness Patient History <JENAE David - Last Filed: 11/08/21 17:20> Medical History (Updated 11/13/21 @ 16:36 by JEANE Mark) Abdominal pain Activity intolerance Acute pancreatitis Adrenal adenoma Adverse effects of medication Anemia Anosmia Atypical chest pain Cervical dystonia (1986) Cervical dystonia Chicken pox (1956) Cholecystectomy planned Chronic fatigue (08/07/15) Chronic venous insufficiency (10/11/15) Colon polyps Coronary artery disease Cough CTS (carpal tunnel syndrome) (1986) Denervation of muscle Depression (1974) Diastasis of rectus abdominis (08/07/15) Diastolic heart failure Diverticulitis large intestine Dyspnea Dyspnea Dyspnea on exertion Episodic lightheadedness Fatigue Gastritis Generalized abdominal pain (08/07/15) Generalized muscle weakness Headache History of coronary artery disease History of progressive weakness History of unstable angina Hyperlipidemia Hypertension Itch of skin Measles (1957) Metallic taste (10/11/15) Mumps (1958) Myasthenia gravis Neoplasm of uncertain behavior of skin (10/11/15) NSAID induced gastritis Osteopenia after menopause Osteoporosis Peripheral arterial disease Peripheral neuropathy (2012) Piriformis syndrome of right side Post viral syndrome Progressive neurological disorder Right hip pain Shortness of breath (08/27/15) Sjogren's syndrome (08/07/15) Sjogren's syndrome (2012) Skin cancer (2015) Sleep apnea (2009) Small fiber polyneuropathy SOB (shortness of breath) (2010) Status post DANILO-BSO Visual disturbance Surgical History Anesthesia complication History of carpal tunnel repair (1989) History of cervical spinal surgery (07/2008) History of hernia repair History of laparoscopic cholecystectomy (2006) S/P DANILO-BSO (total abdominal hysterectomy and bilateral salpingo-oophorectomy) (01/2007) Status post hernia repair (2013) Status post hernia repair (2007) Family History Brother Age: 64 Prostate cancer Heart disease Hypertension High cholesterol Heart attack Brother Age: 62 Hypertension Mental health problem Kidney transplant recipient Chronic kidney disease with end stage renal failure on dialysis Father Colon cancer Heart disease Mental health problem Heart failure Grandfather Heart disease Hypertension Brain aneurysm Mother Cancer Hypertension NHL (non-Hodgkin's lymphoma) Grandmother Stroke Sister Age: 70 Celiac disease High cholesterol Mental health problem Thyroid disorder Sister Age: 66 Psoriatic arthritis Thyroid disorder Grandmother Alzheimer's disease Grandfather Colon cancer Sister Breast cancer Sister Suicide Brother No problems noted. Sister Thyroid disorder Social History marital status: household members: spouse occupational status: previously employed Smoking Status: Never smoker alcohol intake: never substance use type: does not use Smoking Status: Never smoker alcohol intake frequency: holidays/special occasions only Substance Use Type: does not use Exam <JENAE David - Last Filed: 11/08/21 17:20> Narrative Exam Narrative: Independently reviewed vitals signs and nursing notes. General: cooperative, comfortable, in no acute distress, well groomed, afebrile, Head: atraumatic, symmetrical facial expressions Neck: supple Eyes: equal round and reactive, EOMI, conjunctiva normal Nose: nares patent, no rhinorrhea Mouth/Throat: moist mucus membranes Cardiovascular: regular rate and rhythm, no peripheral edema, warm extremities Respiratory: normal effort, able to speak in complete sentences, no audible wheezing, stridor, or rales. No retractions or tachypnea. GI: abdomen soft, nontender to palpation, nondistended, no masses, no exquisite tenderness with exam, without guarding or rebound. MSK: moves all extremities, neurovascularly intact, no weakness, normal tone Skin: brisk capillary refill, no rash, no erythema Neuro: normal speech and cognition, A&O x3 Psych: mental status is grossly normal, congruent mood, normal affect, pleasant and cooperative Initial Vital Signs Initial Vital Signs: Vital Signs Temperature 97.8 F 11/08/21 11:07 Pulse Rate 70 11/08/21 11:07 Respiratory Rate 15 11/08/21 11:07 Blood Pressure 159/89 H 11/08/21 11:07 Pulse Oximetry 97 11/08/21 11:07 Oxygen Delivery Method 11/08/21 11:07 <Yadira Ram DO - Last Filed: 11/16/21 18:37> Initial Vital Signs Initial Vital Signs: Vital Signs Temperature 97.8 F 11/08/21 11:07 Pulse Rate 70 11/08/21 11:07 Respiratory Rate 15 11/08/21 11:07 Blood Pressure 159/89 H 11/08/21 11:07 Pulse Oximetry 97 11/08/21 11:07 Oxygen Delivery Method 11/08/21 11:07 Course <JENAE David - Last Filed: 11/08/21 17:20> Orders Ordered: Discontinued Medications Guaifenesin (Guaifenesin Er 600 Mg Tab) 600 mg PO NOW ONE Stop: 11/08/21 12:26 Last Admin: 11/08/21 12:51 Dose: 600 mg Documented By: MAXWELL Lactated Ringer's (Lactated Ringers) 500 mls @ 1,000 mls/hr IV BOLUS ONE Stop: 11/08/21 12:54 Last Infusion: 11/08/21 13:17 Dose: 0 mls/hr Documented By: Admin: 11/08/21 12:45 Dose: 1,000 mls/hr Documented By: MAXWELL Ketorolac Tromethamine (Ketorolac 30 Mg/Ml Vial) 15 mg IV NOW ONE Stop: 11/08/21 12:26 Last Admin: 11/08/21 12:45 Dose: 15 mg Documented By: MAXWELL Loratadine (Loratadine 10 Mg Tablet) 10 mg PO NOW ONE Stop: 11/08/21 12:26 Last Admin: 11/08/21 12:51 Dose: 10 mg Documented By: MAXWELL Methocarbamol (Methocarbamol 500 Mg Tablet) 500 mg PO NOW ONE Stop: 11/08/21 12:26 Last Admin: 11/08/21 12:45 Dose: 500 mg Documented By: MAXWELL Vital Signs Vital signs: Vital Signs - 8 hr 11/08/21 11:07 11/08/21 11:41 11/08/21 11:42 Temperature 97.8 F Pulse Rate 70 65 Respiratory Rate 15 Blood Pressure 159/89 H 147/78 H Pulse Oximetry 97 100 Oxygen Delivery Method Room Air 11/08/21 11:42 11/08/21 12:00 11/08/21 12:00 Temperature Pulse Rate 66 62 Respiratory Rate 16 Blood Pressure 121/71 Pulse Oximetry 98 98 Oxygen Delivery Method 11/08/21 12:30 11/08/21 12:30 11/08/21 13:00 Temperature Pulse Rate 67 54 L Respiratory Rate 21 13 Blood Pressure 117/74 Pulse Oximetry 95 96 Oxygen Delivery Method 11/08/21 13:01 11/08/21 13:01 11/08/21 13:30 Temperature Pulse Rate 54 L 61 Respiratory Rate 12 20 Blood Pressure 140/69 Pulse Oximetry 97 96 Oxygen Delivery Method 11/08/21 13:31 11/08/21 13:31 Temperature Pulse Rate 59 L Respiratory Rate 17 Blood Pressure 140/66 Pulse Oximetry 97 Oxygen Delivery Method <Yadira Ram, DO - Last Filed: 11/16/21 18:37> Orders Ordered: Discontinued Medications Guaifenesin (Guaifenesin Er 600 Mg Tab) 600 mg PO NOW ONE Stop: 11/08/21 12:26 Last Admin: 11/08/21 12:51 Dose: 600 mg Documented By: MAXWELL Lactated Ringer's (Lactated Ringers) 500 mls @ 1,000 mls/hr IV BOLUS ONE Stop: 11/08/21 12:54 Last Infusion: 11/08/21 13:17 Dose: 0 mls/hr Documented By: Admin: 11/08/21 12:45 Dose: 1,000 mls/hr Documented By: MAXWELL Ketorolac Tromethamine (Ketorolac 30 Mg/Ml Vial) 15 mg IV NOW ONE Stop: 11/08/21 12:26 Last Admin: 11/08/21 12:45 Dose: 15 mg Documented By: MAXWELL Loratadine (Loratadine 10 Mg Tablet) 10 mg PO NOW ONE Stop: 11/08/21 12:26 Last Admin: 11/08/21 12:51 Dose: 10 mg Documented By: MAXWELL Methocarbamol (Methocarbamol 500 Mg Tablet) 500 mg PO NOW ONE Stop: 11/08/21 12:26 Last Admin: 11/08/21 12:45 Dose: 500 mg Documented By: MAXWELL Vital Signs Vital signs: Vital Signs - 8 hr 11/08/21 11:07 11/08/21 11:41 11/08/21 11:42 Temperature 97.8 F Pulse Rate 70 65 Respiratory Rate 15 Blood Pressure 159/89 H 147/78 H Pulse Oximetry 97 100 Oxygen Delivery Method Room Air 11/08/21 11:42 11/08/21 12:00 11/08/21 12:00 Temperature Pulse Rate 66 62 Respiratory Rate 16 Blood Pressure 121/71 Pulse Oximetry 98 98 Oxygen Delivery Method 11/08/21 12:30 11/08/21 12:30 11/08/21 13:00 Temperature Pulse Rate 67 54 L Respiratory Rate 21 13 Blood Pressure 117/74 Pulse Oximetry 95 96 Oxygen Delivery Method 11/08/21 13:01 11/08/21 13:01 11/08/21 13:30 Temperature Pulse Rate 54 L 61 Respiratory Rate 12 20 Blood Pressure 140/69 Pulse Oximetry 97 96 Oxygen Delivery Method 11/08/21 13:31 11/08/21 13:31 Temperature Pulse Rate 59 L Respiratory Rate 17 Blood Pressure 140/66 Pulse Oximetry 97 Oxygen Delivery Method MDM - URI/Sore Throat <JENAE David - Last Filed: 11/08/21 17:20> Lab Data Result diagrams: 11/08/21 11:54 11/08/21 11:54 Labs: Lab Results 11/08/21 11/08/21 11/08/21 Range/Units 11:13 11:54 11:54 WBC 6.6 (4.5-11.0) X10^3/uL RBC 4.34 (4.0-5.2) X10^6/uL Hgb 13.0 (12.0-16.0) g/dL Hct 38.0 (36-46) % MCV 87.6 (80-100) fL MCH 29.8 (26-34) PG MCHC 34.1 (30-36) % RDW 14.2 (11.6-14.8) % Plt Count 245 (150-400) X10^3/uL Neut % (Auto) 59.0 (50-75) % Lymph % (Auto) 29.1 (25-40) % Hettinger % (Auto) 7.9 (3-14) % Eos % (Auto) 2.9 (2-4) % Baso % (Auto) 1.1 (0-2) % Neut # (Auto) 3900 (1551-4311) /uL Lymph # (Auto) 1900 (6097-9792) /uL Hettinger # (Auto) 500 (0-900) /uL Eos # (Auto) 200 (0-450) /uL Baso # (Auto) 100 (0-100) /uL PT 10.9 (10.1-12.7) SECONDS INR 1.0 (0.9-1.3) APTT 34 D (26.4-36.2) SECONDS Sodium (137-145) mmol/L Potassium (3.4-5.1) mmol/L Chloride (98-107) mmol/L Carbon Dioxide (22-32) mmol/L BUN (7-17) mg/dL Creatinine (0.52-1.04) mg/dL Estimated GFR (>60) mL/min BUN/Creatinine Ratio (6-22) Glucose (80-110) mg/dL Calcium (8.4-10.2) mg/dL Magnesium (1.6-2.3) mg/dL Total Bilirubin (0.2-1.3) mg/dL AST (14-36) IU/L ALT (<35) IU/L Alkaline Phosphatase (38-126) U/L Total Creatine Kinase (30-135) U/L CK-MB (CK-2) CK-MB (CK-2) Rel Index Troponin I (0.01-0.034) ng/mL NT-Pro-B Natriuret Pep (<125) pg/mL Total Protein (6.3-8.2) g/dL Albumin (3.5-5.0) g/dL Globulin (1.7-4.1) g/dL Albumin/Globulin Ratio (1.0-2.8) Lipase (23-300) U/L SARS-CoV-2 (PCR) Negative (Negative) 11/08/21 11/08/21 Range/Units 11:54 11:54 WBC (4.5-11.0) X10^3/uL RBC (4.0-5.2) X10^6/uL Hgb (12.0-16.0) g/dL Hct (36-46) % MCV (80-100) fL MCH (26-34) PG MCHC (30-36) % RDW (11.6-14.8) % Plt Count (150-400) X10^3/uL Neut % (Auto) (50-75) % Lymph % (Auto) (25-40) % Hettinger % (Auto) (3-14) % Eos % (Auto) (2-4) % Baso % (Auto) (0-2) % Neut # (Auto) (5089-1617) /uL Lymph # (Auto) (9274-2488) /uL Hettinger # (Auto) (0-900) /uL Eos # (Auto) (0-450) /uL Baso # (Auto) (0-100) /uL PT (10.1-12.7) SECONDS INR (0.9-1.3) APTT (26.4-36.2) SECONDS Sodium 138 (137-145) mmol/L Potassium 5.3 H (3.4-5.1) mmol/L Chloride 104 (98-107) mmol/L Carbon Dioxide 24 (22-32) mmol/L BUN 17 (7-17) mg/dL Creatinine 0.92 (0.52-1.04) mg/dL Estimated GFR > 60 (>60) mL/min BUN/Creatinine Ratio 18.5 (6-22) Glucose 89 (80-110) mg/dL Calcium 9.4 (8.4-10.2) mg/dL Magnesium 2.1 (1.6-2.3) mg/dL Total Bilirubin 0.8 (0.2-1.3) mg/dL AST 47 H (14-36) IU/L ALT 33 (<35) IU/L Alkaline Phosphatase 107 (38-126) U/L Total Creatine Kinase 80 (30-135) U/L CK-MB (CK-2) TNP CK-MB (CK-2) Rel Index TNP Troponin I < 0.012 (0.01-0.034) ng/mL NT-Pro-B Natriuret Pep 57 (<125) pg/mL Total Protein 8.0 (6.3-8.2) g/dL Albumin 4.6 (3.5-5.0) g/dL Globulin 3.4 (1.7-4.1) g/dL Albumin/Globulin Ratio 1.4 (1.0-2.8) Lipase 112 (23-300) U/L SARS-CoV-2 (PCR) (Negative) Imaging Data Chest x-ray: Radiologist's Impression: PROCEDURE:? XR CHEST 1V ? INDICATIONS:? chest pain ? TECHNIQUE:? One view of the chest was acquired.? ? COMPARISON:? [facility], CR, XR CHEST 2V, 11/05/2021, 18:57. ? FINDINGS:? ? Surgical changes and devices:? None.? ? Lungs and pleura:? Lungs are clear.? No pleural effusions or pneumothorax.? ? Mediastinum:? Mediastinal contours appear normal.? Heart size is normal.? ? Bones and chest wall:? No suspicious bony lesions.? Overlying soft tissues appear unremarkable.? ? IMPRESSION:? No acute cardiopulmonary abnormalities or focal airspace disease. ? Dictated by: Jimbo Turk M.D. on 11/08/2021 at 11:38 ? ? Approved by: Jimbo Turk M.D. on 11/08/2021 at 11:38 ? MDM Narrative Medical decision making narrative: This is a 71-year-old female who presents to the emergency department with concern for viral respiratory infection. 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 She states she has not tested positive for COVID, or influenza thus far. She presents today for ongoing symptoms with concern that she is not getting better. On exam today, patient has fatigue, breath sounds are clear throughout all pereira with good aeration, no increased work of breathing, without wheezing, crackles, rales. Her vital signs are wi thin normal limits without any hypoxia. Lab work shows no leukocytosis, elevated potassium at 5.3 without any other electrolyte abnormalities, lipase of 112, COVID negative PCR today, COVID negative PCR 11/02/2021 as well as flu A and B negative on 11/02/2021. Patient does not have any severe symptoms today, she is tolerating p.o., states that she feels better after she was given Toradol, Mucinex, Robaxin, Claritin, and a 500 mL bolus of lactated Ringer's for elevated potassium. Noticed that patient is on spironolactone and torsemide, presume patient was slightly dry today. She is nontoxic appearing, has not had any chest pain, shortness of breath at rest, hypoxia, or significant symptoms which she would need admission to the hospital for. Her vital signs are within normal ranges without any support. She is on day 11 of her symptoms without hypoxia, respiratory distress, dehydration, or focal exam to suggest secondary bacterial infection. Discussed supportive treatment at home including Tylenol/Motrin as needed for pain/fever. OTC decongestant medications and/or antihistamines for symptomatic relief. Maintain adequate fluid intake. Do not take any additional potassium replacement. Follow-up with primary care if symptoms are ongoing. Discussed post COVID syndrome. Follow-up with PCP as directed. Return to clinic/ER instructions discussed for new, not improving, or worsening symptoms. All questions answered. <Yadira Ram, DO - Last Filed: 11/16/21 18:37> Lab Data Labs: Lab Results 11/08/21 11/08/21 11/08/21 Range/Units 11:13 11:54 11:54 WBC 6.6 (4.5-11.0) X10^3/uL RBC 4.34 (4.0-5.2) X10^6/uL Hgb 13.0 (12.0-16.0) g/dL Hct 38.0 (36-46) % MCV 87.6 (80-100) fL MCH 29.8 (26-34) PG MCHC 34.1 (30-36) % RDW 14.2 (11.6-14.8) % Plt Count 245 (150-400) X10^3/uL Neut % (Auto) 59.0 (50-75) % Lymph % (Auto) 29.1 (25-40) % Hettinger % (Auto) 7.9 (3-14) % Eos % (Auto) 2.9 (2-4) % Baso % (Auto) 1.1 (0-2) % Neut # (Auto) 3900 (2824-1802) /uL Lymph # (Auto) 1900 (9411-2153) /uL Hettinger # (Auto) 500 (0-900) /uL Eos # (Auto) 200 (0-450) /uL Baso # (Auto) 100 (0-100) /uL PT 10.9 (10.1-12.7) SECONDS INR 1.0 (0.9-1.3) APTT 34 D (26.4-36.2) SECONDS Sodium (137-145) mmol/L Potassium (3.4-5.1) mmol/L Chloride (98-107) mmol/L Carbon Dioxide (22-32) mmol/L BUN (7-17) mg/dL Creatinine (0.52-1.04) mg/dL Estimated GFR (>60) mL/min BUN/Creatinine Ratio (6-22) Glucose (80-110) mg/dL Calcium (8.4-10.2) mg/dL Magnesium (1.6-2.3) mg/dL Total Bilirubin (0.2-1.3) mg/dL AST (14-36) IU/L ALT (<35) IU/L Alkaline Phosphatase (38-126) U/L Total Creatine Kinase (30-135) U/L CK-MB (CK-2) CK-MB (CK-2) Rel Index Troponin I (0.01-0.034) ng/mL NT-Pro-B Natriuret Pep (<125) pg/mL Total Protein (6.3-8.2) g/dL Albumin (3.5-5.0) g/dL Globulin (1.7-4.1) g/dL Albumin/Globulin Ratio (1.0-2.8) Lipase (23-300) U/L SARS-CoV-2 (PCR) Negative (Negative) 11/08/21 11/08/21 Range/Units 11:54 11:54 WBC (4.5-11.0) X10^3/uL RBC (4.0-5.2) X10^6/uL Hgb (12.0-16.0) g/dL Hct (36-46) % MCV (80-100) fL MCH (26-34) PG MCHC (30-36) % RDW (11.6-14.8) % Plt Count (150-400) X10^3/uL Neut % (Auto) (50-75) % Lymph % (Auto) (25-40) % Hettinger % (Auto) (3-14) % Eos % (Auto) (2-4) % Baso % (Auto) (0-2) % Neut # (Auto) (1005-9612) /uL Lymph # (Auto) (3341-2222) /uL Hettinger # (Auto) (0-900) /uL Eos # (Auto) (0-450) /uL Baso # (Auto) (0-100) /uL PT (10.1-12.7) SECONDS INR (0.9-1.3) APTT (26.4-36.2) SECONDS Sodium 138 (137-145) mmol/L Potassium 5.3 H (3.4-5.1) mmol/L Chloride 104 (98-107) mmol/L Carbon Dioxide 24 (22-32) mmol/L BUN 17 (7-17) mg/dL Creatinine 0.92 (0.52-1.04) mg/dL Estimated GFR > 60 (>60) mL/min BUN/Creatinine Ratio 18.5 (6-22) Glucose 89 (80-110) mg/dL Calcium 9.4 (8.4-10.2) mg/dL Magnesium 2.1 (1.6-2.3) mg/dL Total Bilirubin 0.8 (0.2-1.3) mg/dL AST 47 H (14-36) IU/L ALT 33 (<35) IU/L Alkaline Phosphatase 107 (38-126) U/L Total Creatine Kinase 80 (30-135) U/L CK-MB (CK-2) TNP CK-MB (CK-2) Rel Index TNP Troponin I < 0.012 (0.01-0.034) ng/mL NT-Pro-B Natriuret Pep 57 (<125) pg/mL Total Protein 8.0 (6.3-8.2) g/dL Albumin 4.6 (3.5-5.0) g/dL Globulin 3.4 (1.7-4.1) g/dL Albumin/Globulin Ratio 1.4 (1.0-2.8) Lipase 112 (23-300) U/L SARS-CoV-2 (PCR) (Negative) Discharge Plan Departure Patient Disposition: Home Clinical Impression: Respiratory illness Instructions: DI for Viral Syndrome Activity Restrictions/Additional Instructions: *You have been diagnosed with a viral illness or post COVID syndrome. A lot of patients have been complaining about symptoms better ongoing following their viral illness or COVID illness and your symptoms are very similar. Please treat your runny nose and postnasal drip with allergy medicine like Flonase nasal spray and Claritin. Please use flexeril as needed for muscle aches and spasm. Please stay hydrated, please take Mucinex if you are having thick phlegm. I hope you feel better soon, return for any new or worsening symptoms. Please rest when you need rest, if your symptoms or any worsening, or your spiking fevers or having difficulty breathing please return to the emergency department for another evaluation and would be happy to rethink everything. *What to do: *Please continue to take your regular medications as directed. [ x] New medication prescriptions sent to your pharmacy: [[facility] ] [ ] New medication written as a paper prescription [ ] No new medications given *Please follow up with your primary care provider in 2-3 days, call for an appointment. Let them know you were seen in the Emergency Department and that we asked that you be seen for follow-up. We will electronically transmit a record of today's note if your PCP is in our system *If you do not have a primary care provider please contact [phone] to establish care with one of the [facility] primary care providers. *Return to Emergency Department if you should have any new, worsening or concerning symptoms, such as [fever greater than 101F, chills, worsening pain, persistent vomiting or other bothersome symptoms] Prescriptions: New All Day Allergy (cetirizine) 10 mg capsule 10 mg PO DAILY PRN (Reason: allergy symptoms) Qty: 30 0RF cyclobenzaprine 5 mg tablet 5 mg PO DAILY PRN (Reason: muscle spasm) Qty: 20 0RF No Action lidocaine HCl [Lidocaine Viscous] 2 % solution 1 applic mucous membrane Q8H PRN (Reason: pain) Qty: 100 0RF Rx Instructions: Mix 10mL of viscous lidocaine, 10mL of Mag-Al Plus, and 10mL of oral benadryl suspension. Swish medication in mouth then spit out up to every 8 hours for pain. aspirin 81 MG tablet,delayed release (DR/EC) 81 mg PO QPM Qty: 0 miscellaneous medical supply Misc 1 each .ROUTE .COMPLEX Qty: 1 0RF Rx Instructions: Medical equipment: [employer] nitro euro style losartan 100 mg tablet 100 mg PO DAILY Qty: 90 3RF ibuprofen 800 mg tablet 800 mg PO Q6H PRN (Reason: pain) Qty: 60 3RF Rx Instructions: Take 1 tab every 6 hours as needed for pain isosorbide mononitrate 30 mg tablet extended release 24 hr 30 mg PO QAM torsemide 10 mg tablet 10 mg PO DAILY spironolactone 25 mg tablet 25 mg PO DAILY omega 3 690 mg PO DAILY alpha lipoic acid 600 mg capsule 600 mg PO DAILY nitroglycerin 0.4 mg tablet, sublingual 0.4 mg sublingual Q5-15M PRN (Reason: angina) Qty: 30 3RF Rx Instructions: do not exceed 3 doses per episode Flax, Fish and Borage Oil 400-5 mg-unit capsule PO niacin [Niaspan Extended-Release] 500 mg tablet extended release 24 hr 500 mg PO BEDTIME Qty: 30 2RF Rx Instructions: Take 1 tab at bedtime daily aripiprazole 20 mg tablet 10 mg PO QAM Referrals: Doris Schreiber ARNP [Primary Care Provider] - Visit Report Forms: Patient Portal/API <Yadira Ram DO - Last Filed: 11/16/21 18:37> Cosign ED Attending Darryl Attestation: I was immediately available in the department for consultation. Documentation has been reviewed. I agree with assessment and plan.
== END 2021-11-08 13:54 | disposition home or self-care (01) ==
PROVIDERS: Emergency Medicine; Emergency Provider Nurse Practitioner Critical Care Medicine; PCP Nurse Practitioner
DX: B34.9 Viral infection, unspecified (principal); R07.9 Chest pain, unspecified; Z20.822 Contact with and (suspected) exposure to COVID-19
CPT/HCPCS: 36415; 71045; 80053; 82550; 83690; 83735; 83880; 84484; 85025; 85610; 85730; 87635; 93005; 93010; 96361; 96374; 99284; C9803; J1885

== ENCOUNTER → 2021-11-20 15:42 | Outpatient (CLI) | payer MEDICARE, BC, SELFPAY ==
[2020-10-04 13:43] VITALS: BMI 33.3
[2021-11-20 16:06] LABS: Add Manual Diff / Slide Review NO; Basophils Absolute Auto 100 /uL (0-100); Eosinophils Absolute Auto 200 /uL (0-450); Eosinophils Percent Auto 2.2 % (2-4); Hematocrit 38.3 % (36-46); Hemoglobin 12.9 g/dL (12.0-16.0); Lymphocytes Absolute Auto 1800 /uL (1100-4500); Lymphocytes Percent Auto 23.1 % (25-40); Mean Corpuscular HGB Conc 33.7 % (30-36); Mean Corpuscular Hemoglobin 29.9 PG (26-34); Mean Corpuscular Volume 88.6 fL (80-100); Monocytes Absolute Auto 600 /uL (0-900); Monocytes Percent Auto 8.3 % (3-14); Neutrophils Absolute Auto 5100 /uL (1500-7000); Neutrophils Percent Auto 65.4 % (50-75); Platelet Count 230 X10^3/uL (150-400); Red Blood Cell Count 4.32 X10^6/uL (4.0-5.2); Red Cell Distribution Width 14.4 % (11.6-14.8); White Blood Cell Count 7.8 X10^3/uL (4.5-11.0)
[2021-11-20 16:34] LABS: Alanine Aminotransferase 26 IU/L (<35); Albumin 4.6 g/dL (3.5-5.0); Albumin Globulin Ratio 1.5 (1.0-2.8); Alkaline Phosphatase 133 U/L (38-126); Amylase 86 U/L (30-110); Aspartate Aminotransferase 28 IU/L (14-36); Bilirubin Total 0.7 mg/dL (0.2-1.3); Blood Urea Nitrogen 17 mg/dL (7-17); Calcium 9.7 mg/dL (8.4-10.2); Carbon Dioxide 25 mmol/L (22-32); Chloride 102 mmol/L (98-107); Estimated Glomerular Filt Rate > 60 mL/min (>60); Glucose 94 mg/dL (80-110); HEMOLYSIS 23 (0-50); Lipase 150 U/L (23-300); Potassium 4.5 mmol/L (3.4-5.1); Sodium 137 mmol/L (137-145); Total Protein 7.6 g/dL (6.3-8.2)
[2021-11-21 09:11] LABS: Appearance Urine UA CLEAR; Bilirubin Urine UA NEGATIVE (NEGATIVE); Color Urine UA YELLOW; Glucose Urine UA NEGATIVE (Negative); Ketones Urine UA NEGATIVE (NEGATIVE); Leukocyte Esterase Urine UA NEGATIVE (NEGATIVE); Nitrite Urine UA NEGATIVE (Negative); Occult Blood Urine UA 2+ (Negative); Protein Urine UA NEGATIVE (Negative); Urobilinogen Urine UA 0.2 E.U./dL (0.2)
[2021-11-21 09:13] LABS: pH Urine UA 6.5 (4.5-8.0)
[2021-11-21 09:24] LABS: Amorphous Sediment Urine 1+; Bacteria Urine None Seen; Culture Indicated Urine Specimen Cultured; RBC Urine 0-1/HPF (0-5/HPF); Squamous Epithelial Cell Urine 0-1 /HPF (0-5/HPF); WBC Urine 1-5/HPF (0-5/HPF)
== END ==
PROVIDERS: PCP Nurse Practitioner; Referring Provider Nurse Practitioner; Visit Provider Nurse Practitioner
DX: R10.9 Unspecified abdominal pain (principal)
CPT/HCPCS: 36415; 80053; 81001; 82150; 83690; 85025; 87086

== ENCOUNTER → 2021-11-29 15:36 | Outpatient (CLI) | payer MEDICARE, BC, SELFPAY ==
[2020-10-04 13:43] VITALS: BMI 33.3
--- NOTE | 2021-11-29 15:36 | DI.US.S_ITS ---
PROCEDURE: US ABDOMEN COMPLETE INDICATIONS: LOWER QUADRANT PAIN TECHNIQUE: Real-time scanning was performed of the abdominal and retroperitoneal organs, with image documentation. COMPARISON: [facility], CT, CT ABDOMEN PELVIS W CON, 10/21/2020, 8:19. [facility], CT, CT ABDOMEN PELVIS W CON, 10/17/2021, 14:57. [facility], CT, CT ABDOMEN W CON, 03/29/2021, 11:33. FINDINGS: Liver: Liver is normal in size and homogeneous in echotexture. Gallbladder: Surgically absent Biliary ducts: Intrahepatic bile ducts are non-dilated. Extrahepatic bile duct caliber measures 1.2 mm. Normal is 6-7 mm or less in diameter, or 10 mm or less post-cholecystectomy. Pancreas: There is a 1.6 x 1.3 x 1.5 centimeter cyst in the body of the pancreas. Pancreas otherwise has a normal sonographic appearance. Spleen: Spleen is normal in size and homogeneous in echotexture. Kidneys: Kidneys are normal in size and echotexture. Right kidney measures 11.9 cm long; left kidney measures 12.7 cm long. No hydronephrosis or nephrolithiasis. No solid masses. 1.5 centimeter right simple cyst. Aorta: Visualized aorta is normal in caliber at less than 3 cm. Iliacs: Proximal common iliac arteries are normal in caliber at less than 2.5 cm. IVC: Intrahepatic inferior vena cava is patent. Miscellaneous: No free abdominal fluid. Appendix is not visualized and cannot be evaluated. IMPRESSION: Status post cholecystectomy. 1.6 x 1.3 x 1.5 centimeter pancreatic cyst which is not significantly changed compared to prior CT scans. Appendix not visualized and cannot be evaluated. This study does not exclude appendicitis. Dictated by: Cheri Perez MD, PhD on 12/03/2021 at 16:32 Approved by: Cheri Perez MD, PhD on 12/03/2021 at 16:37
== END ==
PROVIDERS: PCP Nurse Practitioner; Referring Provider Nurse Practitioner; Visit Provider Nurse Practitioner
DX: K86.2 Cyst of pancreas (principal); R10.31 Right lower quadrant pain; R11.0 Nausea; Z90.49 Acquired absence of other specified parts of digestive tract
CPT/HCPCS: 76700

== ENCOUNTER 2021-11-30 16:41 | Emergency (ER) | payer MEDICARE, BC, SELFPAY ==
[2020-10-04 13:43] VITALS: BMI 33.3
[2021-11-30] VITALS (8 sets, daily range): BP systolic 112–149; BP diastolic 64–75; PULSE 59–76; RESP 22; TEMP 36.6; O2SAT 94–99; BMI 31.9
[2021-11-30 18:44] LABS: Bacteria Urine None Seen; Culture Indicated Urine Cult Not Indicated; RBC Urine 0-1/HPF (0-5/HPF); Squamous Epithelial Cell Urine None Seen (0-5/HPF); WBC Urine 0-1/HPF (0-5/HPF)
[2021-11-30 19:04] LABS: Add Manual Diff / Slide Review NO; Basophils Absolute Auto 0 /uL (0-100); Basophils Percent Auto 0.2 % (0-2); Eosinophils Absolute Auto 300 /uL (0-450); Eosinophils Percent Auto 4.2 % (2-4); Hematocrit 37.7 % (36-46); Hemoglobin 12.9 g/dL (12.0-16.0); Lymphocytes Absolute Auto 2100 /uL (1100-4500); Mean Corpuscular HGB Conc 34.3 % (30-36); Mean Corpuscular Hemoglobin 30.4 PG (26-34); Mean Corpuscular Volume 88.6 fL (80-100); Monocytes Absolute Auto 600 /uL (0-900); Monocytes Percent Auto 9.2 % (3-14); Neutrophils Absolute Auto 3500 /uL (1500-7000); Neutrophils Percent Auto 54.4 % (50-75); Platelet Count 222 X10^3/uL (150-400); Red Blood Cell Count 4.26 X10^6/uL (4.0-5.2); Red Cell Distribution Width 14.7 % (11.6-14.8); White Blood Cell Count 6.5 X10^3/uL (4.5-11.0)
[2021-11-30 19:09] LABS: Alanine Aminotransferase 22 IU/L (<35); Albumin 4.8 g/dL (3.5-5.0); Albumin Globulin Ratio 1.7 (1.0-2.8); Alkaline Phosphatase 118 U/L (38-126); Aspartate Aminotransferase 28 IU/L (14-36); Bilirubin Total 0.4 mg/dL (0.2-1.3); Blood Urea Nitrogen 18 mg/dL (7-17); Calcium 9.9 mg/dL (8.4-10.2); Carbon Dioxide 28 mmol/L (22-32); Chloride 104 mmol/L (98-107); Estimated Glomerular Filt Rate > 60 mL/min (>60); Globulin 2.8 g/dL (1.7-4.1); Glucose 86 mg/dL (80-110); HEMOLYSIS < 15 (0-50); Lipase 161 U/L (23-300); Potassium 4.2 mmol/L (3.4-5.1); Sodium 138 mmol/L (137-145); Total Protein 7.6 g/dL (6.3-8.2)
--- NOTE | 2021-11-30 20:10 | ED.GENADULT ---
HPI - General Adult General Chief complaint: Abdominal Pain Stated complaint: right upper pain/flank pain/nausea Time Seen by Provider: 11/30/21 20:10 Source: patient Mode of arrival: Ambulatory History of Present Illness HPI narrative: 71-year-old woman with a history of pancreatitis and right-sided diverticulitis, microvascular cardiac disease, and hypertension presents with abdominal pain since November 19. Initially it was in the upper quadrants now she describes it as right upper quadrant into the flank at times it has been into the left upper quadrant. She describes it is waxing and waning it is tolerable but she feels worse after she eats. She has been nauseated but has not had any emesis, denies fevers. She notes that she has been weak and tired recently and has had a deep ache throughout the tops of both thighs which is a new finding for her. She has seen her primary care doctor in did have a ultrasound that was done late yesterday afternoon that is not available for review. She denies actual chest pain, palpitations, headaches. Related Data Home Medications Medication Instructions Recorded Confirmed aspirin 81 mg tablet,delayed 81 mg PO QPM ##0 01/25/17 11/20/21 release alpha lipoic acid 600 mg capsule 600 mg PO DAILY 03/01/21 11/20/21 isosorbide mononitrate 30 mg 30 mg PO QAM 03/01/21 11/20/21 tablet,extended release 24 hr omega 3 690 mg PO DAILY 03/01/21 11/20/21 spironolactone 25 mg tablet 25 mg PO DAILY 03/01/21 11/20/21 torsemide 10 mg tablet 10 mg PO DAILY 03/01/21 11/20/21 fish oil-vit E-fat acids cap PO 05/17/21 11/20/21 comb.5-herbal comb. 137 400 mg-5 unit capsule (Flax, Fish and Borage Oil) Previous Rx's Medication Instructions Recorded miscellaneous medical supply 1 each .Route .COMPLEX to aid in 08/23/19 walking and ADL's #1 ea lidocaine HCl 2 % mucosal solution 1 applic mucous membrane Q8H PRN 04/04/21 (Lidocaine Viscous) pain #100 mL nitroglycerin 0.4 mg sublingual 0.4 mg sublingual Q5-15M PRN 05/17/21 tablet angina #30 tabs niacin 500 mg tablet,extended 500 mg PO BEDTIME #30 tabs 10/02/21 release 24 hr (Niaspan) aripiprazole 20 mg tablet See Rx Instructions .Route 11/18/21 .COMPLEX #45 tabs losartan 100 mg tablet See Rx Instructions .Route 11/18/21 .COMPLEX #90 tabs phenazopyridine 100 mg tablet 100 mg PO TID PRN pain 6 doses #3 11/21/21 (Pyridium) tabs Allergies Allergy/AdvReac Type Severity Reaction Status Date / Time prednisone Allergy Unknown Verified 11/30/21 16:54 ciprofloxacin AdvReac Severe Weakness Verified 11/30/21 16:54 atorvastatin [From Lipitor] AdvReac Intermediate Muscle Verified 11/30/21 16:54 aches and pains cimetidine [From TAGAMET] AdvReac Mild hallucinati Verified 11/30/21 16:54 ons codeine [CODEINE] AdvReac Mild hallucinati Verified 11/30/21 16:54 ons lisinopril [LISINOPRIL] AdvReac Mild cough/GI Verified 11/30/21 16:54 issues metoprolol AdvReac Mild Verified 11/30/21 16:54 ranitidine [From ZANTAC] AdvReac Mild hallucinati Verified 11/30/21 16:54 ons Review of Systems Review of Systems Narrative: Remainder of complete review of systems is otherwise unremarkable except for that included in the HPI. Patient History Medical History Abdominal pain Activity intolerance Acute pancreatitis Adrenal adenoma Adverse effects of medication Anemia Anosmia Atypical chest pain Cervical dystonia (1986) Cervical dystonia Chicken pox (1956) Cholecystectomy planned Chronic fatigue (08/07/15) Chronic venous insufficiency (10/11/15) Colon polyps Coronary artery disease Cough CTS (carpal tunnel syndrome) (1986) Denervation of muscle Depression (1974) Diastasis of rectus abdominis (08/07/15) Diastolic heart failure Diverticulitis large intestine Dyspnea Dyspnea Dyspnea on exertion Episodic lightheadedness Fatigue Gastritis Generalized abdominal pain (08/07/15) Generalized muscle weakness Headache History of coronary artery disease History of progressive weakness History of unstable angina Hyperlipidemia Hypertension Itch of skin Measles (1957) Metallic taste (10/11/15) Mumps (1958) Myasthenia gravis Neoplasm of uncertain behavior of skin (10/11/15) NSAID induced gastritis Osteopenia after menopause Osteoporosis Peripheral arterial disease Peripheral neuropathy (2012) Piriformis syndrome of right side Post viral syndrome Progressive neurological disorder Right hip pain Shortness of breath (08/27/15) Sjogren's syndrome (08/07/15) Sjogren's syndrome (2012) Skin cancer (2015) Sleep apnea (2009) Small fiber polyneuropathy SOB (shortness of breath) (2010) Status post DANILO-BSO Visual disturbance Surgical History Anesthesia complication History of carpal tunnel repair (1989) History of cervical spinal surgery (07/2008) History of hernia repair History of laparoscopic cholecystectomy (2006) S/P DANILO-BSO (total abdominal hysterectomy and bilateral salpingo-oophorectomy) (01/2007) Status post hernia repair (2013) Status post hernia repair (2007) Family History Brother Age: 64 Prostate cancer Heart disease Hypertension High cholesterol Heart attack Brother Age: 62 Hypertension Mental health problem Kidney transplant recipient Chronic kidney disease with end stage renal failure on dialysis Father Colon cancer Heart disease Mental health problem Heart failure Grandfather Heart disease Hypertension Brain aneurysm Mother Cancer Hypertension NHL (non-Hodgkin's lymphoma) Grandmother Stroke Sister Age: 70 Celiac disease High cholesterol Mental health problem Thyroid disorder Sister Age: 66 Psoriatic arthritis Thyroid disorder Grandmother Alzheimer's disease Grandfather Colon cancer Sister Breast cancer Sister Suicide Brother No problems noted. Sister Thyroid disorder Social History marital status: household members: spouse occupational status: previously employed Smoking Status: Never smoker alcohol intake: never substance use type: does not use Smoking Status: Never smoker alcohol intake frequency: holidays/special occasions only Substance Use Type: does not use Exam Initial Vital Signs Initial Vital Signs: Vital Signs Temperature 97.8 F 11/30/21 16:55 Pulse Rate 75 11/30/21 16:55 Respiratory Rate 22 11/30/21 16:55 Blood Pressure 149/70 H 11/30/21 16:55 Pulse Oximetry 99 11/30/21 16:55 Oxygen Delivery Method 11/30/21 16:55 General: Healthy appearing, in no acute distress. Able to give a complete and coherent history. Well-nourished well-developed HEENT: Moist mucous membranes, normal sclera with reactive pupils, Neck: No JVD, supple Respiratory: Lungs are clear to auscultation, no wheezing no rales no rhonchi. Full and symmetrical air movement Cardiac: Regular rate and rhythm no murmurs no bruits Abdomen: Soft, tender in right upper quadrant and upper right flank area as well as left lower quadrant. No rebound or guarding Skin: Warm and dry, no rashes Neurologic: Grossly neurologically intact with no obvious asymmetries or abnormalities Extremities: No trauma, well perfused Psych: Cooperative, appropriate insight and affect Course Orders Ordered: ED Orders 11/30/21 18:30 Complete Blood Count AUTO DIFF Stat Comprehensive Metabolic Panel Stat Lipase Stat 11/30/21 18:32 Urine Microscopic Stat 11/30/21 20:26 CT abdomen pelvis w con Stat Discontinued Medications Ondansetron HCl (Ondansetron 4 Mg/2 Ml Inj) 4 mg IV NOW ONE Stop: 11/30/21 17:01 Last Admin: 11/30/21 18:49 Dose: Not Given Documented By: KENIA Vital Signs Vital signs: Vital Signs - 8 hr 11/30/21 16:55 11/30/21 19:24 11/30/21 21:30 Temperature 97.8 F Pulse Rate 75 59 L 66 Respiratory Rate 22 Blood Pressure 149/70 H 134/64 Pulse Oximetry 99 97 95 Oxygen Delivery Method Room Air Room Air 11/30/21 21:31 11/30/21 21:31 11/30/21 22:00 Temperature Pulse Rate 64 Respiratory Rate Blood Pressure 123/67 112/73 Pulse Oximetry 95 Oxygen Delivery Method 11/30/21 22:00 11/30/21 22:30 11/30/21 22:30 Temperature Pulse Rate 69 70 Respiratory Rate Blood Pressure 124/65 Pulse Oximetry 94 94 Oxygen Delivery Method 11/30/21 23:00 11/30/21 23:00 Temperature Pulse Rate 76 Respiratory Rate Blood Pressure 136/75 Pulse Oximetry 94 Oxygen Delivery Method Medical Decision Making Lab Data Result diagrams: 11/30/21 18:30 11/30/21 18:30 Labs: Lab Results 11/30/21 11/30/21 11/30/21 Range/Units 16:07 16:07 18:30 WBC Cancelled 6.5 RBC Cancelled 4.26 Hgb Cancelled 12.9 Hct Cancelled 37.7 MCV Cancelled 88.6 MCH Cancelled 30.4 MCHC Cancelled 34.3 RDW Cancelled 14.7 Plt Count Cancelled 222 Neut % (Auto) Cancelled 54.4 Lymph % (Auto) Cancelled 32.0 Cochran % (Auto) Cancelled 9.2 Eos % (Auto) Cancelled 4.2 H Baso % (Auto) Cancelled 0.2 Neut # (Auto) Cancelled 3500 Lymph # (Auto) Cancelled 2100 Cochran # (Auto) Cancelled 600 Eos # (Auto) Cancelled 300 Baso # (Auto) Cancelled 0 Sodium Cancelled Potassium Cancelled Chloride Cancelled Carbon Dioxide Cancelled BUN Cancelled Creatinine Cancelled Estimated GFR Cancelled BUN/Creatinine Ratio Cancelled Glucose Cancelled Calcium Cancelled Total Bilirubin Cancelled AST Cancelled ALT Cancelled Alkaline Phosphatase Cancelled Total Protein Cancelled Albumin Cancelled Globulin Cancelled Albumin/Globulin Ratio Cancelled Lipase Cancelled Urine RBC (0-5/HPF) Urine WBC (0-5/HPF) Ur Squamous Epith Cells (0-5/HPF) Urine Bacteria (None) Ur Culture Indicated? 11/30/21 11/30/21 Range/Units 18:30 18:32 WBC RBC Hgb Hct MCV MCH MCHC RDW Plt Count Neut % (Auto) Lymph % (Auto) Cochran % (Auto) Eos % (Auto) Baso % (Auto) Neut # (Auto) Lymph # (Auto) Cochran # (Auto) Eos # (Auto) Baso # (Auto) Sodium 138 Potassium 4.2 Chloride 104 Carbon Dioxide 28 BUN 18 H Creatinine 1.00 Estimated GFR > 60 BUN/Creatinine Ratio 18.0 Glucose 86 Calcium 9.9 Total Bilirubin 0.4 AST 28 ALT 22 Alkaline Phosphatase 118 Total Protein 7.6 Albumin 4.8 Globulin 2.8 Albumin/Globulin Ratio 1.7 Lipase 161 Urine RBC 0-1/hpf (0-5/HPF) Urine WBC 0-1/hpf (0-5/HPF) Ur Squamous Epith Cells None seen (0-5/HPF) Urine Bacteria None seen (None) Ur Culture Indicated? Cult not indicated Urine Dip Bedside Urine Glucose Negative Bedside Urine Bilirubin - Negative Bedside Urine Ketone - Negative Urine Specific [place] 1.015 Bedside Urine Occult Blood ++ Bedside Urine pH 5.5 Bedside Urine Protein +/- 15 Bedside Urine Nitrite - Negative Bedside Urine Leukocytes - Negative Esterase Point of care testing: Urine Dip Bedside Urine Glucose Negative Bedside Urine Bilirubin - Negative Bedside Urine Ketone - Negative Urine Specific [place] 1.015 Bedside Urine Occult Blood ++ Bedside Urine pH 5.5 Bedside Urine Protein +/- 15 Bedside Urine Nitrite - Negative Bedside Urine Leukocytes - Negative Esterase Imaging Data Abdomen pelvis CT: Radiologist's Impression: FINDINGS:? Image quality:? Excellent.? ? Lung bases:? There are basilar scars and atelectasis.? Tiny hiatal hernia.? Heart:? No significant findings. ? ? ABDOMEN: Liver:? Normal size.? Mild hepatic steatosis.? ? Gallbladder:? Surgically resected.? ? Biliary ducts:? Prominent common bile duct measuring 9 mm, presumably secondary to cholecystectomy.? ? Pancreas:? There is a 9 mm low-density nodule in the pancreatic head.? ? Spleen:? Normal size.? Calcified granulomas are seen.? ? Adrenal Glands:? There is a 1.2 cm left adrenal nodule, unchanged.? ? Kidneys and Ureters:? Normal size and symmetrical enhancement.? There is a 1.3 cm exophytic nodule in the anterior cortex of the left kidney, most likely a cyst.? ? ? Stomach and Bowel:? Stomach, small bowel loops, and colon are normal in caliber.? Scattered colonic diverticula.? No CT findings to suggest acute diverticulitis.? Normal appendix. Peritoneum:? No abnormal intraperitoneal fluid.? No free air.? ? Ventral Wall: ? The right rectus muscle is atrophic.? There is diastasis of rectus abdominous sheath with bulging anterior abdominal wall.? A small fat containing ventral hernia is seen in the inferior anterior abdominal wall below the umbilicus.? Abdominal Nodes:? No retroperitoneal or mesenteric adenopathy by size criteria.? Vessels:? Aorta and inferior vena cava are normal in size.? ? PELVIS: Pelvic Organs:? Uterus is absent.? Ovaries are not identified.? No adnexal mass or pathological free-fluid.? ? Bladder:? Unremarkable.? ? Pelvic Nodes: No enlarged lymph nodes.? Miscellaneous: No inguinal hernias are seen. ? ? ? Bones:? Mild levoscoliosis and degenerative changes in lumbar spine.? Prominent large sacral Tarlov cysts are noted. ? ? ? IMPRESSION:? ? 1. A 9 mm low-density nodule in the pancreatic head, unchanged.? Differential diagnoses include a benign cyst versus IPMN. 2. Mild hepatic steatosis. 3. Cholecystectomy.? Common bile duct is mildly dilated measuring 9 mm, likely secondary to postsurgical change. 4. Remote granulomatous infections of the spleen. 5. Diverticulosis without diverticulitis.? 6. Atrophic right rectus abdominis muscle.? Diastasis of rectus abdominus sheath bulging anterior abdominal wall. 7. Small fat containing and ventral hernia. 8.? Hepatic steatosis? Dictated by: Yossi Garcia M.D. on 11/30/2021 at 22:21 ? ? MDM Narrative Medical decision making narrative: 71-year-old woman with a month of worsening abdominal pain usually on the right side sometimes on the left on physical exam today in the left lower quadrant. It is interesting to note that her symptoms started shortly after COVID infection in early October. She has a history of pancreatic abnormalities and CT scan is repeated today with no changes. Labs are reassuring. Her exam is benign with no evidence of acute surgical abdomen. Findings reviewed with the patient and encouraged her to follow-up with her primary care physician. At this point she does not have diverticulitis severe constipation, pancreatitis, acute intra abdominal infection, acute kidney or liver failure or reason for additional workup or hospital admission at this time. Discharge Plan Departure Patient Disposition: Home Clinical Impression: Abdominal pain Qualifiers: Abdominal location: generalized Qualified Code(s): R10.84 - Generalized abdominal pain Instructions: DI for Abdominal Pain-Adult Activity Restrictions/Additional Instructions: Thank you for coming in today Sorry it on have any definitive answers for you. Your blood work as well as your CT scan do not show any changes. The mi abnormalities previously noted in have your pancreas are unchanged. It is interesting that your symptoms have persisted after your COVID infection approximately a month ago. Unfortunately we do not have a complete understanding or explanation for persistent COVID complaints. If you continue to have symptoms I would encourage you to do some research on your own regarding long COVID. If you have new or worsening symptoms or a different direction in which we should be looking, please feel free to return to the emergency department Prescriptions: No Action lidocaine HCl [Lidocaine Viscous] 2 % solution 1 applic mucous membrane Q8H PRN (Reason: pain) Qty: 100 0RF Rx Instructions: Mix 10mL of viscous lidocaine, 10mL of Mag-Al Plus, and 10mL of oral benadryl suspension. Swish medication in mouth then spit out up to every 8 hours for pain. aspirin 81 MG tablet,delayed release (DR/EC) 81 mg PO QPM Qty: 0 miscellaneous medical supply Misc 1 each .ROUTE .COMPLEX Qty: 1 0RF Rx Instructions: Medical equipment: [employer]- medical drive nitro euro style losartan 100 mg tablet See Rx Instructions .ROUTE .COMPLEX Qty: 90 2RF Dose Instruction: TAKE 1 TABLET BY MOUTH DAILY Rx Instructions: TAKE 1 TABLET BY MOUTH DAILY aripiprazole 20 mg tablet See Rx Instructions .ROUTE .COMPLEX Qty: 45 2RF Dose Instruction: TAKE 1/2 TABLET BY MOUTH DAILY Rx Instructions: TAKE 1/2 TABLET BY MOUTH DAILY phenazopyridine [Pyridium] 100 mg tablet 100 mg PO TID PRN (Reason: pain) Qty: 3 0RF isosorbide mononitrate 30 mg tablet extended release 24 hr 30 mg PO QAM torsemide 10 mg tablet 10 mg PO DAILY spironolactone 25 mg tablet 25 mg PO DAILY omega 3 690 mg PO DAILY alpha lipoic acid 600 mg capsule 600 mg PO DAILY nitroglycerin 0.4 mg tablet, sublingual 0.4 mg sublingual Q5-15M PRN (Reason: angina) Qty: 30 3RF Rx Instructions: do not exceed 3 doses per episode Flax, Fish and Borage Oil 400-5 mg-unit capsule PO niacin [Niaspan Extended-Release] 500 mg tablet extended release 24 hr 500 mg PO BEDTIME Qty: 30 2RF Rx Instructions: Take 1 tab at bedtime daily Referrals: Doris Schreiber ARNP [Primary Care Provider] -
--- NOTE | 2021-11-30 20:26 | DI.CT.S_ITS ---
PROCEDURE: CT ABDOMEN PELVIS W CON INDICATIONS: upper abdominal pain TECHNIQUE: After the administration of IV contrast, axial sections were acquired from the lung bases to the pubic symphysis. Coronal and sagittal reformats were performed. For radiation dose reduction, the following was used: automated exposure control, adjustment of mA and/or kV according to patient size. COMPARISON: [facility], CT, CT ABDOMEN PELVIS W [facility], 10/21/2020, 8:19. [facility], CT, CT ABDOMEN W [facility], 03/29/2021, 11:33. [facility], CT, CT ABDOMEN PELVIS W CON, 10/17/2021, 14:57. FINDINGS: Image quality: Excellent. Lung bases: There are basilar scars and atelectasis. Tiny hiatal hernia. Heart: No significant findings. ABDOMEN: Liver: Normal size. Mild hepatic steatosis. Gallbladder: Surgically resected. Biliary ducts: Prominent common bile duct measuring 9 mm, presumably secondary to cholecystectomy. Pancreas: There is a 9 mm low-density nodule in the pancreatic head. Spleen: Normal size. Calcified granulomas are seen. Adrenal Glands: There is a 1.2 cm left adrenal nodule, unchanged. Kidneys and Ureters: Normal size and symmetrical enhancement. There is a 1.3 cm exophytic nodule in the anterior cortex of the left kidney, most likely a cyst. Stomach and Bowel: Stomach, small bowel loops, and colon are normal in caliber. Scattered colonic diverticula. No CT findings to suggest acute diverticulitis. Normal appendix. Peritoneum: No abnormal intraperitoneal fluid. No free air. Ventral Wall: The right rectus muscle is atrophic. There is diastasis of rectus abdominous sheath with bulging anterior abdominal wall. A small fat containing ventral hernia is seen in the inferior anterior abdominal wall below the umbilicus. Abdominal Nodes: No retroperitoneal or mesenteric adenopathy by size criteria. Vessels: Aorta and inferior vena cava are normal in size. PELVIS: Pelvic Organs: Uterus is absent. Ovaries are not identified. No adnexal mass or pathological free-fluid. Bladder: Unremarkable. Pelvic Nodes: No enlarged lymph nodes. Miscellaneous: No inguinal hernias are seen. Bones: Mild levoscoliosis and degenerative changes in lumbar spine. Prominent large sacral Tarlov cysts are noted. IMPRESSION: 1. A 9 mm low-density nodule in the pancreatic head, unchanged. Differential diagnoses include a benign cyst versus IPMN. 2. Mild hepatic steatosis. 3. Cholecystectomy. Common bile duct is mildly dilated measuring 9 mm, likely secondary to postsurgical change. 4. Remote granulomatous infections of the spleen. 5. Diverticulosis without diverticulitis. 6. Atrophic right rectus abdominis muscle. Diastasis of rectus abdominus sheath bulging anterior abdominal wall. 7. Small fat containing and ventral hernia. 8. Hepatic steatosis Dictated by: Yossi Garcia M.D. on 11/30/2021 at 22:21 Approved by: Yossi Garcia M.D. on 11/30/2021 at 22:31
[2021-12-01] VITALS: BP 135/74; PULSE 75; O2SAT 95
[2021-12-01 00:30] VITALS: BP 139/72; PULSE 80; O2SAT 95
== END 2021-12-01 01:02 | disposition home or self-care (01) ==
PROVIDERS: Emergency Provider Emergency Medicine; PCP Nurse Practitioner
DX: R10.84 Generalized abdominal pain (principal); R11.0 Nausea
CPT/HCPCS: 36415; 74177; 80053; 81003; 81015; 83690; 85025; 99283; 99284; Q9967

== ENCOUNTER 2022-03-15 10:07 | Emergency (ER) | payer MEDICARE, BC, SELFPAY ==
[2022-03-13 13:40] VITALS: BMI 33.3
[2022-03-15 10:10] VITALS: BP 144/70; PULSE 74; RESP 15; TEMP 35.9; O2SAT 97; BMI 32.9
[2022-03-15 10:41] LABS: Add Manual Diff / Slide Review NO; Basophils Absolute Auto 100 /uL (0-100); Basophils Percent Auto 0.7 % (0-2); Eosinophils Absolute Auto 100 /uL (0-450); Eosinophils Percent Auto 1.3 % (2-4); Hematocrit 37.2 % (36-46); Hemoglobin 12.7 g/dL (12.0-16.0); Lymphocytes Absolute Auto 1400 /uL (1100-4500); Lymphocytes Percent Auto 17.5 % (25-40); Mean Corpuscular Hemoglobin 30.5 PG (26-34); Mean Corpuscular Volume 89.6 fL (80-100); Monocytes Absolute Auto 600 /uL (0-900); Monocytes Percent Auto 7.3 % (3-14); Neutrophils Absolute Auto 5700 /uL (1500-7000); Neutrophils Percent Auto 73.2 % (50-75); Platelet Count 201 X10^3/uL (150-400); Prothrombin Time 11.2 SECONDS (10.1-12.7); Red Blood Cell Count 4.15 X10^6/uL (4.0-5.2); Red Cell Distribution Width 14.2 % (11.6-14.8); White Blood Cell Count 7.8 X10^3/uL (4.5-11.0)
[2022-03-15 10:44] LABS: PTT Partial Thromboplastin Tim 33 SECONDS (26-36)
[2022-03-15 10:45] LABS: Alanine Aminotransferase 32 IU/L (<35); Albumin 4.2 g/dL (3.5-5.0); Albumin Globulin Ratio 1.5 (1.0-2.8); Alkaline Phosphatase 99 U/L (38-126); Aspartate Aminotransferase 28 IU/L (14-36); BUN Creatinine Ratio 22.2 (6-22); Bilirubin Total 0.5 mg/dL (0.2-1.3); Blood Urea Nitrogen 20 mg/dL (7-17); Calcium 9.1 mg/dL (8.4-10.2); Carbon Dioxide 24 mmol/L (22-32); Chloride 104 mmol/L (98-107); Estimated Glomerular Filt Rate > 60 mL/min (>60); Globulin 2.8 g/dL (1.7-4.1); Glucose 95 mg/dL (80-110); HEMOLYSIS < 15 (0-50); Lipase 130 U/L (23-300); Potassium 4.6 mmol/L (3.4-5.1); Sodium 135 mmol/L (137-145)
[2022-03-15 11:30] LABS: Bacteria Urine Occasional (0-1); RBC Urine 0-1/HPF (0-5/HPF); Squamous Epithelial Cell Urine None Seen (0-5/HPF); WBC Urine None Seen (0-5/HPF)
--- NOTE | 2022-03-15 12:26 | ED_ITS ---
HPI - Abdominal Pain <Mike Pak PA-C - Last Filed: 03/15/22 14:21> General Chief Complaint: Abdominal Pain Stated Complaint: Upper middle Stomach pain Time Seen by Provider: 03/15/22 12:01 Source: patient Mode of arrival: Ambulatory History of Present Illness HPI narrative: Patient is a 71-year-old female presents to the emergency room today with abdominal pain that started last night between 7 and 730. States that the pain is mostly in the center of the abdomen and rotates through to the right side of her back. Does not describe the pain as a ripping or tearing but he states it feels like a dull shooting ache. Admission pancreatitis in the past and it feels like this but pancreatitis on the right side and 7 center. Patient denies a history of reflux esophagitis but admits to having her gallbladder removed in 2011. Also admits to having a cyst on her pancreas that was diagnosed about 1 year ago. States she has had has had nausea but no vomiting associated with this incident and described the pain as being 8/10 at its worst and about a 5/10 at its best. He is never had a UTI before and also has never had a kidney stone before. Related Data Home Medications Medication Instructions Recorded Confirmed aspirin 81 mg tablet,delayed 81 mg PO QPM ##0 01/25/17 11/20/21 release alpha lipoic acid 600 mg capsule 600 mg PO DAILY 03/01/21 11/20/21 isosorbide mononitrate 30 mg 30 mg PO QAM 03/01/21 11/20/21 tablet,extended release 24 hr omega 3 690 mg PO DAILY 03/01/21 11/20/21 spironolactone 25 mg tablet 25 mg PO DAILY 03/01/21 11/20/21 torsemide 10 mg tablet 10 mg PO DAILY 03/01/21 11/20/21 fish oil-vit E-fat acids cap PO 05/17/21 11/20/21 comb.5-herbal comb. 137 400 mg-5 unit capsule (Flax, Fish and Borage Oil) Previous Rx's Medication Instructions Recorded miscellaneous medical supply 1 each .Route .COMPLEX to aid in 08/23/19 walking and ADL's #1 ea lidocaine HCl 2 % mucosal solution 1 applic mucous membrane Q8H PRN 04/04/21 (Lidocaine Viscous) pain #100 mL nitroglycerin 0.4 mg sublingual 0.4 mg sublingual Q5-15M PRN 05/17/21 tablet angina #30 tabs niacin 500 mg tablet,extended 500 mg PO BEDTIME #30 tabs 10/02/21 release 24 hr (Niaspan) aripiprazole 20 mg tablet See Rx Instructions .Route 11/18/21 .COMPLEX #45 tabs losartan 100 mg tablet See Rx Instructions .Route 11/18/21 .COMPLEX #90 tabs phenazopyridine 100 mg tablet 100 mg PO TID PRN pain 6 doses #3 11/21/21 (Pyridium) tabs Allergies Allergy/AdvReac Type Severity Reaction Status Date / Time prednisone Allergy Unknown Verified 03/15/22 10:09 ciprofloxacin AdvReac Severe Weakness Verified 03/15/22 10:09 atorvastatin [From Lipitor] AdvReac Intermediate Muscle Verified 03/15/22 10:09 aches and pains cimetidine [From TAGAMET] AdvReac Mild hallucinati Verified 03/15/22 10:09 ons codeine [CODEINE] AdvReac Mild hallucinati Verified 03/15/22 10:09 ons lisinopril [LISINOPRIL] AdvReac Mild cough/GI Verified 03/15/22 10:09 issues metoprolol AdvReac Mild Verified 03/15/22 10:09 ranitidine [From ZANTAC] AdvReac Mild hallucinati Verified 03/15/22 10:09 ons Review of Systems <Mike Pak PA-C - Last Filed: 03/15/22 14:21> Review of Systems Narrative: R.O.S.: General: No fever, chills or fatigue. Cardiovascular: No chest pain or palpitations Respiratory: No S.O.B. HEENT: No congestion, ear pain, rhinorrhea, sore throat or tinnitus Gastrointestinal: No nausea or vomiting : Abdominal pain Skin: No rash or associated abnormalities Musculoskeletal: No pain in muscles or joints, no limitation of range of motion, no paresthesia or numbness. ?? Neurological: Awake, alert and in not apparent distress. No Headaches, changes in vision or other related neurological concerns. Patient History <Mike Pak PA-C - Last Filed: 03/15/22 14:21> Medical History (Updated 03/15/22 @ 14:19 by Mike Pak PA-C) Abdominal pain Activity intolerance Acute pancreatitis Adrenal adenoma Adverse effects of medication Anemia Anosmia Atypical chest pain Cervical dystonia (1986) Cervical dystonia Chicken pox (1956) Cholecystectomy planned Chronic fatigue (08/07/15) Chronic venous insufficiency (10/11/15) Colon polyps Coronary artery disease Cough CTS (carpal tunnel syndrome) (1986) Denervation of muscle Depression (1974) Diastasis of rectus abdominis (08/07/15) Diastolic heart failure Diverticulitis large intestine Dyspnea Dyspnea Dyspnea on exertion Episodic lightheadedness Fatigue Gastritis Generalized abdominal pain (08/07/15) Generalized muscle weakness Headache Hepatic steatosis History of coronary artery disease History of progressive weakness History of unstable angina Hyperlipidemia Hypertension Itch of skin Measles (1957) Metallic taste (10/11/15) Mumps (1958) Myasthenia gravis Neoplasm of uncertain behavior of skin (10/11/15) NSAID induced gastritis Osteopenia after menopause Osteoporosis Peripheral arterial disease Peripheral neuropathy (2012) Piriformis syndrome of right side Post viral syndrome Progressive neurological disorder Right hip pain Shortness of breath (08/27/15) Sjogren's syndrome (08/07/15) Sjogren's syndrome (2012) Skin cancer (2015) Sleep apnea (2009) Small fiber polyneuropathy SOB (shortness of breath) (2010) Status post DANILO-BSO Tarlov cysts Ventral hernia Visual disturbance Surgical History Anesthesia complication History of carpal tunnel repair (1989) History of cervical spinal surgery (07/2008) History of hernia repair History of laparoscopic cholecystectomy (2006) S/P DANILO-BSO (total abdominal hysterectomy and bilateral salpingo-oophorectomy) (01/2007) Status post hernia repair (2013) Status post hernia repair (2007) Family History Brother Age: 65 Prostate cancer Heart disease Hypertension High cholesterol Heart attack Brother Age: 63 Hypertension Mental health problem Kidney transplant recipient Chronic kidney disease with end stage renal failure on dialysis Father Colon cancer Heart disease Mental health problem Heart failure Grandfather Heart disease Hypertension Brain aneurysm Mother Cancer Hypertension NHL (non-Hodgkin's lymphoma) Grandmother Stroke Sister Age: 71 Celiac disease High cholesterol Mental health problem Thyroid disorder Sister Age: 67 Psoriatic arthritis Thyroid disorder Grandmother Alzheimer's disease Grandfather Colon cancer Sister Breast cancer Sister Suicide Brother No problems noted. Sister Thyroid disorder Social History marital status: household members: spouse occupational status: previously employed Smoking Status: Never smoker alcohol intake: never substance use type: does not use Smoking Status: Never smoker alcohol intake frequency: holidays/special occasions only Substance Use Type: does not use Exam <Mike Pak PA-C - Last Filed: 03/15/22 14:21> Narrative Exam Narrative: Physical Exam: ? General: normal appearance, well developed, well nourished, alert, and awake. Not in acute distress. ? Head: Normocephalic, no lesions. Chest: Lungs CTAB, no rales, rhonchi or wheezes. ?? Heart: RRR, no murmurs, rubs or gallops. Eyes: PERRLA, EOM's full, conjunctivae clear. ? Neuro: Physiological, no localizing findings, CN3-12 intact. ?? Extremities: Warm, well perfused, FROM, no deformities, no edema. ?? Skin: Normal, no rashes, no lesions noted. ?? PSYCHIATRIC: The mood is good, no blunted affect. Speech is clear. Thought process is linear, thought content is appropriate. The voice is without si gnificant inflection. Gastrointestinal: Soft; NT; Mild tenderness slightly right to mid epigastric a surjit; Pos BS with Neg. rebound tenderness. No scars or major deformities noted on Visual Inspection. Initial Vital Signs Initial Vital Signs: Vital Signs Temperature 96.6 F L 03/15/22 10:10 Pulse Rate 74 03/15/22 10:10 Respiratory Rate 15 03/15/22 10:10 Blood Pressure 144/70 H 03/15/22 10:10 Pulse Oximetry 97 03/15/22 10:10 Oxygen Delivery Method 03/15/22 10:10 <Yina Madrigal DO - Last Filed: 03/16/22 11:08> Initial Vital Signs Initial Vital Signs: Vital Signs Temperature 96.6 F L 03/15/22 10:10 Pulse Rate 74 03/15/22 10:10 Respiratory Rate 15 03/15/22 10:10 Blood Pressure 144/70 H 03/15/22 10:10 Pulse Oximetry 97 03/15/22 10:10 Oxygen Delivery Method 03/15/22 10:10 Course <Mike Pak PA-C - Last Filed: 03/15/22 14:21> Orders Ordered: Discontinued Medications Sodium Chloride (Normal Saline 0.9%) 1,000 mls @ 1,000 mls/hr IV BOLUS ONE Stop: 03/15/22 13:48 Last Infusion: 03/15/22 14:26 Dose: 0 mls/hr Documented By: Admin: 03/15/22 13:22 Dose: 1,000 mls/hr Documented By: MAXWELL(2) Vital Signs Vital signs: Vital Signs - 8 hr 03/15/22 10:10 Temperature 96.6 F L Pulse Rate 74 Respiratory Rate 15 Blood Pressure 144/70 H Pulse Oximetry 97 Oxygen Delivery Method Room Air <Yina Madrigal DO - Last Filed: 03/16/22 11:08> Orders Ordered: Discontinued Medications Sodium Chloride (Normal Saline 0.9%) 1,000 mls @ 1,000 mls/hr IV BOLUS ONE Stop: 03/15/22 13:48 Last Infusion: 03/15/22 14:26 Dose: 0 mls/hr Documented By: Admin: 03/15/22 13:22 Dose: 1,000 mls/hr Documented By: MAXWELL(2) Vital Signs Vital signs: Vital Signs - 8 hr 03/15/22 10:10 Temperature 96.6 F L Pulse Rate 74 Respiratory Rate 15 Blood Pressure 144/70 H Pulse Oximetry 97 Oxygen Delivery Method Room Air MDM - Abdominal Pain <Mike Pak PA-C - Last Filed: 03/15/22 14:21> Lab Data Result diagrams: 03/15/22 10:25 03/15/22 10:25 Labs: Lab Results 03/15/22 03/15/22 03/15/22 Range/Units 10:25 10:25 10:25 WBC 7.8 (4.5-11.0) X10^3/uL RBC 4.15 (4.0-5.2) X10^6/uL Hgb 12.7 (12.0-16.0) g/dL Hct 37.2 (36-46) % MCV 89.6 (80-100) fL MCH 30.5 (26-34) PG MCHC 34.0 (30-36) % RDW 14.2 (11.6-14.8) % Plt Count 201 (150-400) X10^3/uL Neut % (Auto) 73.2 (50-75) % Lymph % (Auto) 17.5 L (25-40) % Arthur % (Auto) 7.3 (3-14) % Eos % (Auto) 1.3 L (2-4) % Baso % (Auto) 0.7 (0-2) % Neut # (Auto) 5700 (6174-8969) /uL Lymph # (Auto) 1400 (4278-6119) /uL Arthur # (Auto) 600 (0-900) /uL Eos # (Auto) 100 (0-450) /uL Baso # (Auto) 100 (0-100) /uL PT 11.2 (10.1-12.7) SECONDS INR 1.0 (0.9-1.3) APTT 33 (26-36) SECONDS Sodium 135 L (137-145) mmol/L Potassium 4.6 (3.4-5.1) mmol/L Chloride 104 (98-107) mmol/L Carbon Dioxide 24 (22-32) mmol/L BUN 20 H (7-17) mg/dL Creatinine 0.90 (0.52-1.04) mg/dL Estimated GFR > 60 (>60) mL/min BUN/Creatinine Ratio 22.2 H (6-22) Glucose 95 (80-110) mg/dL Calcium 9.1 (8.4-10.2) mg/dL Total Bilirubin 0.5 (0.2-1.3) mg/dL AST 28 (14-36) IU/L ALT 32 (<35) IU/L Alkaline Phosphatase 99 (38-126) U/L Total Creatine Kinase (30-135) U/L CK-MB (CK-2) CK-MB (CK-2) Rel Index Troponin I (0.01-0.034) ng/mL Total Protein 7.0 (6.3-8.2) g/dL Albumin 4.2 (3.5-5.0) g/dL Globulin 2.8 (1.7-4.1) g/dL Albumin/Globulin Ratio 1.5 (1.0-2.8) Lipase 130 (23-300) U/L Urine RBC (0-5/HPF) Urine WBC (0-5/HPF) Ur Squamous Epith Cells (0-5/HPF) Urine Bacteria (None) Ur Culture Indicated? 03/15/22 03/15/22 Range/Units 11:19 13:43 WBC (4.5-11.0) X10^3/uL RBC (4.0-5.2) X10^6/uL Hgb (12.0-16.0) g/dL Hct (36-46) % MCV (80-100) fL MCH (26-34) PG MCHC (30-36) % RDW (11.6-14.8) % Plt Count (150-400) X10^3/uL Neut % (Auto) (50-75) % Lymph % (Auto) (25-40) % Arthur % (Auto) (3-14) % Eos % (Auto) (2-4) % Baso % (Auto) (0-2) % Neut # (Auto) (6786-2102) /uL Lymph # (Auto) (8238-1718) /uL Arthur # (Auto) (0-900) /uL Eos # (Auto) (0-450) /uL Baso # (Auto) (0-100) /uL PT (10.1-12.7) SECONDS INR (0.9-1.3) APTT (26-36) SECONDS Sodium (137-145) mmol/L Potassium (3.4-5.1) mmol/L Chloride (98-107) mmol/L Carbon Dioxide (22-32) mmol/L BUN (7-17) mg/dL Creatinine (0.52-1.04) mg/dL Estimated GFR (>60) mL/min BUN/Creatinine Ratio (6-22) Glucose (80-110) mg/dL Calcium (8.4-10.2) mg/dL Total Bilirubin (0.2-1.3) mg/dL AST (14-36) IU/L ALT (<35) IU/L Alkaline Phosphatase (38-126) U/L Total Creatine Kinase 51 (30-135) U/L CK-MB (CK-2) TNP CK-MB (CK-2) Rel Index TNP Troponin I < 0.012 (0.01-0.034) ng/mL Total Protein (6.3-8.2) g/dL Albumin (3.5-5.0) g/dL Globulin (1.7-4.1) g/dL Albumin/Globulin Ratio (1.0-2.8) Lipase (23-300) U/L Urine RBC 0-1/hpf (0-5/HPF) Urine WBC None seen (0-5/HPF) Ur Squamous Epith Cells None seen (0-5/HPF) Urine Bacteria Occasional (0-1) (None) Ur Culture Indicated? Culture not indicate Point of care testing: Urine Dip Bedside Urine Glucose Negative Bedside Urine Bilirubin - Negative Bedside Urine Ketone - Negative Urine Specific Glen 1.005 Bedside Urine Occult Blood + Bedside Urine pH 6 Bedside Urine Protein - Negative Bedside Urine Urobilinogen - Negative Bedside Urine Nitrite - Negative Bedside Urine Leukocytes - Negative Esterase Imaging Data CT scan - abdomen/pelvis: Radiologist's Impression: [address] [address] [address] Scan Report Signed Patient: Elizabeth Maravilla MR#: [id number] : 1950 Acct:[id number] Age/Sex: 71 / F Date of Service: 03/15/22 Loc: ED Accession Number: [id number] ?? Procedure: CT abdomen pelvis w con Ordering Provider: Mike Pak P.A-C PROCEDURE:? CT ABDOMEN PELVIS W CON ? INDICATIONS:? Abdominal pain ? TECHNIQUE:? After the administration of oral and IV contrast, axial sections were acquired from the lung bases to the pubic symphysis.? Coronal and sagittal reformats were performed.? For radiation dose reduction, the following was used:? automated exposure control, adjustment of mA and/or kV according to patient size. ? COMPARISON:? [facility], MR, MR LUMBAR SPINE WO CON, 07/03/2021, 15:57.? [facility], CT, ABDOMEN/PELVIS WITH CONTRAST, 08/05/2015, 13:30.? [facility], CT, CT ABDOMEN PELVIS W CON, 11/30/2021, 21:03.? [facility], US, US ABDOMEN COMPLETE, 11/29/2021, 15:54.? [facility], CR, XR CHEST 2V, 03/15/2022, 12:59.? [facility], CT, CT ABDOMEN PELVIS W CON, 10/17/2021, 14:57. ? FINDINGS:? Image quality:? Excellent.? ? Lung bases:? Unremarkable.? ? Heart:? No significant findings. ? ? ABDOMEN: Liver: Diffuse fatty liver infiltration is noted.? The liver is normal in size and demonstrates no suspicious lesions. Gallbladder:? Removed.? ? Biliary ducts:? The common bile duct measures 11 mm, which is near their lobe it is of normal for a post cholecystectomy patient. Pancreas:? There is a fluid density lesion seen involving the head of the pancreas, which is similar to the prior study. Spleen:? Calcified granulomas are seen within the spleen. The spleen is of normal size and demonstrates no focal lesions.? Adrenal Glands:? Unremarkable.? ? Kidneys and Ureters:? Unremarkable.? ? ? Stomach and Bowel:? Stomach, small bowel loops, and colon are unremarkable.? Colonic diverticulosis is seen, without findings of active diverticulitis. A normal appendix is incidentally noted.? Peritoneum:? No abnormal intraperitoneal fluid.? No free air.? ? Ventral Wall:? There is a trace fat containing periumbilical hernia. Abdominal Nodes:? No retroperitoneal or mesenteric adenopathy by size criteria.? Vessels:? Aorta and inferior vena cava are normal in size.? ? PELVIS: Pelvic Organs: This patient is status post hysterectomy. No adnexal masses are seen.? Bladder:? Unremarkable.? ? Pelvic Nodes: No enlarged lymph nodes.? Miscellaneous: There is an anterior abdominal wall hernia seen involving the groin just to the right of the midline, which contains anterior portion of the bladder as well as nondilated loops of small bowel and fat. ? Bones:? S-shaped scoliotic curvature is seen.? Focal lower lumbar spine degenerative changes are seen.? Milder degenerative changes are seen elsewhere.? Cystic promi nence can be seen of the sacrum.? ? ? IMPRESSION:? There is a pelvic hernia seen centered just to the right of the midline which contains the anterior aspect the bladder as well as fat and nondilated small bowel. ?This hernia appears slightly worse than on the 11/30/2021 examination. ? Fluid density lesion seen involving the head of the pancreas.? Please consider IPMN. ? ? Incidental note is made of: Fatty liver infiltration Cholecystectomy Prior granulomatous exposure. Mild fat containing epigastric hernia Hysterectomy Diverticulosis, without active diverticulitis Focal lower lumbar spine degenerative change Apparent Tarlov cysts of the sacrum, similar to 2016 ? ? ? Dictated by: Juan Ramon Daina M.D. on 03/15/2022 at 12:27 ? ? Approved by: Juan aRmon Diana M.D. on 03/15/2022 at 12:34 ? ECG Data Interpretation: EKG has normal sinus rhythm with nonspecific T-wave abnormality and prolonged QT. No new obvious left bundle-branch block ST segment elevation or Q-wave morphology. MDM Narrative Medical decision making narrative: Patient is a 71-year-old female with a history diverticulitis and pancreatitis presents to the emergency room today with complaint of abdominal pain that started last night. Labs and diagnostics were ordered to rule out urinary blood pulmonary pulmonary emergent concerns. CT scan identified a slightly worsened p elvic hernia diverticulosis and fatty liver. Further discussions with the patient reveal that the patient is aware of her pelvic hernia and has been consulting with the surgeon at the [facility]. Patient states she would like to follow-up with that provider and not be referred by us. Patient also is aware of her history of diverticulitis and diverticulosis and states she will be following up with her primary care provider for a referral in that regard. Patient also admits to having a history of a prolonged QT that was diagnosed when she was also diagnosed with microvascular disease. She states she will also be following up with the PCP in that regard. Patient is okay to b e discharged at this time and denies any other concerns. <Yina Madrigal, DO - Last Filed: 03/16/22 11:08> Lab Data Labs: Lab Results 03/15/22 03/15/22 03/15/22 Range/Units 10:25 10:25 10:25 WBC 7.8 (4.5-11.0) X10^3/uL RBC 4.15 (4.0-5.2) X10^6/uL Hgb 12.7 (12.0-16.0) g/dL Hct 37.2 (36-46) % MCV 89.6 (80-100) fL MCH 30.5 (26-34) PG MCHC 34.0 (30-36) % RDW 14.2 (11.6-14.8) % Plt Count 201 (150-400) X10^3/uL Neut % (Auto) 73.2 (50-75) % Lymph % (Auto) 17.5 L (25-40) % Arthur % (Auto) 7.3 (3-14) % Eos % (Auto) 1.3 L (2-4) % Baso % (Auto) 0.7 (0-2) % Neut # (Auto) 5700 (3500-1742) /uL Lymph # (Auto) 1400 (9800-5693) /uL Arthur # (Auto) 600 (0-900) /uL Eos # (Auto) 100 (0-450) /uL Baso # (Auto) 100 (0-100) /uL PT 11.2 (10.1-12.7) SECONDS INR 1.0 (0.9-1.3) APTT 33 (26-36) SECONDS Sodium 135 L (137-145) mmol/L Potassium 4.6 (3.4-5.1) mmol/L Chloride 104 (98-107) mmol/L Carbon Dioxide 24 (22-32) mmol/L BUN 20 H (7-17) mg/dL Creatinine 0.90 (0.52-1.04) mg/dL Estimated GFR > 60 (>60) mL/min BUN/Creatinine Ratio 22.2 H (6-22) Glucose 95 (80-110) mg/dL Calcium 9.1 (8.4-10.2) mg/dL Total Bilirubin 0.5 (0.2-1.3) mg/dL AST 28 (14-36) IU/L ALT 32 (<35) IU/L Alkaline Phosphatase 99 (38-126) U/L Total Creatine Kinase (30-135) U/L CK-MB (CK-2) CK-MB (CK-2) Rel Index Troponin I (0.01-0.034) ng/mL Total Protein 7.0 (6.3-8.2) g/dL Albumin 4.2 (3.5-5.0) g/dL Globulin 2.8 (1.7-4.1) g/dL Albumin/Globulin Ratio 1.5 (1.0-2.8) Lipase 130 (23-300) U/L Urine RBC (0-5/HPF) Urine WBC (0-5/HPF) Ur Squamous Epith Cells (0-5/HPF) Urine Bacteria (None) Ur Culture Indicated? 03/15/22 03/15/22 Range/Units 11:19 13:43 WBC (4.5-11.0) X10^3/uL RBC (4.0-5.2) X10^6/uL Hgb (12.0-16.0) g/dL Hct (36-46) % MCV (80-100) fL MCH (26-34) PG MCHC (30-36) % RDW (11.6-14.8) % Plt Count (150-400) X10^3/uL Neut % (Auto) (50-75) % Lymph % (Auto) (25-40) % Arthur % (Auto) (3-14) % Eos % (Auto) (2-4) % Baso % (Auto) (0-2) % Neut # (Auto) (2360-3959) /uL Lymph # (Auto) (9913-3992) /uL Arthur # (Auto) (0-900) /uL Eos # (Auto) (0-450) /uL Baso # (Auto) (0-100) /uL PT (10.1-12.7) SECONDS INR (0.9-1.3) APTT (26-36) SECONDS Sodium (137-145) mmol/L Potassium (3.4-5.1) mmol/L Chloride (98-107) mmol/L Carbon Dioxide (22-32) mmol/L BUN (7-17) mg/dL Creatinine (0.52-1.04) mg/dL Estimated GFR (>60) mL/min BUN/Creatinine Ratio (6-22) Glucose (80-110) mg/dL Calcium (8.4-10.2) mg/dL Total Bilirubin (0.2-1.3) mg/dL AST (14-36) IU/L ALT (<35) IU/L Alkaline Phosphatase (38-126) U/L Total Creatine Kinase 51 (30-135) U/L CK-MB (CK-2) TNP CK-MB (CK-2) Rel Index TNP Troponin I < 0.012 (0.01-0.034) ng/mL Total Protein (6.3-8.2) g/dL Albumin (3.5-5.0) g/dL Globulin (1.7-4.1) g/dL Albumin/Globulin Ratio (1.0-2.8) Lipase (23-300) U/L Urine RBC 0-1/hpf (0-5/HPF) Urine WBC None seen (0-5/HPF) Ur Squamous Epith Cells None seen (0-5/HPF) Urine Bacteria Occasional (0-1) (None) Ur Culture Indicated? Culture not indicate Point of care testing: Urine Dip Bedside Urine Glucose Negative Bedside Urine Bilirubin - Negative Bedside Urine Ketone - Negative Urine Specific Glen 1.005 Bedside Urine Occult Blood + Bedside Urine pH 6 Bedside Urine Protein - Negative Bedside Urine Urobilinogen - Negative Bedside Urine Nitrite - Negative Bedside Urine Leukocytes - Negative Esterase Discharge Plan Departure Patient Disposition: Home Clinical Impression: Hernia, Diverticulosis, Fatty liver, Abdominal pain Instructions: Groin Hernia -- Adult, DI for Abdominal Pain-Adult, DI for Diverticulosis, DI for Nonalcoholic Fatty Liver Disease Activity Restrictions/Additional Instructions: *You have been diagnosed with abdominal pain secondary to pelvic hernia diverticulosis and fatty liver disease. I have discussed these concerns with your knee agreed to follow up with your primary care provider in regards to your gastrointestinal concerns. Also agreed to follow up with your surgeon at [facility] in regards to your worsening hernia. As we discussed I also suggest she discuss your prolonged QT interval with your primary care provider or life scientists. Also please return to the emergency room she any emergent concerns arise. [ ] *What to do: *Please continue to take your regular medications as directed. [ ] New medication prescriptions sent to your pharmacy: [ ] [ ] New medication written as a paper prescription [x] No new medications given *Please follow up with your primary care provider in 2-3 days, call for an appointment. Let them know you were seen in the Emergency Department and that we ask that you be seen in follow up. We will electronically transmit a record of today's note if your PCP is in our system *If you do not have a primary care provider please contact the [facility] Resource line at [phone]. They will ask some questions about your medical history and help get you set up with a doctor in the community. *Return to Emergency Department if you should have any new, worsening or concerning symptoms, such as [fever greater than 101 F, shaking chills, worsening pain, persistent vomiting or other bothersome symptoms] Prescriptions: No Action lidocaine HCl [Lidocaine Viscous] 2 % solution 1 applic mucous membrane Q8H PRN (Reason: pain) Qty: 100 0RF Rx Instructions: Mix 10mL of viscous lidocaine, 10mL of Mag-Al Plus, and 10mL of oral benadryl suspension. Swish medication in mouth then spit out up to every 8 hours for pain. aspirin 81 MG tablet,delayed release (DR/EC) 81 mg PO QPM Qty: 0 miscellaneous medical supply Misc 1 each .ROUTE .COMPLEX Qty: 1 0RF Rx Instructions: Medical equipment: [employer] nitro euro style losartan 100 mg tablet See Rx Instructions .ROUTE .COMPLEX Qty: 90 2RF Dose Instruction: TAKE 1 TABLET BY MOUTH DAILY Rx Instructions: TAKE 1 TABLET BY MOUTH DAILY aripiprazole 20 mg tablet See Rx Instructions .ROUTE .COMPLEX Qty: 45 2RF Dose Instruction: TAKE 1/2 TABLET BY MOUTH DAILY Rx Instructions: TAKE 1/2 TABLET BY MOUTH DAILY phenazopyridine [Pyridium] 100 mg tablet 100 mg PO TID PRN (Reason: pain) Qty: 3 0RF isosorbide mononitrate 30 mg tablet extended release 24 hr 30 mg PO QAM torsemide 10 mg tablet 10 mg PO DAILY spironolactone 25 mg tablet 25 mg PO DAILY omega 3 690 mg PO DAILY alpha lipoic acid 600 mg capsule 600 mg PO DAILY nitroglycerin 0.4 mg tablet, sublingual 0.4 mg sublingual Q5-15M PRN (Reason: angina) Qty: 30 3RF Rx Instructions: do not exceed 3 doses per episode Flax, Fish and Borage Oil 400-5 mg-unit capsule PO niacin [Niaspan Extended-Release] 500 mg tablet extended release 24 hr 500 mg PO BEDTIME Qty: 30 2RF Rx Instructions: Take 1 tab at bedtime daily Referrals: Doris Schreiber ARNP [Primary Care Provider] - Visit Report Forms: Patient Portal/API <Yina Madrigal DO - Last Filed: 03/16/22 11:08> Cosign ED Attending Silvaature Attestation: I was immediately available in the department for consultation. Documentation has been reviewed. Case discussed. Pain is also likely can attributed to from her pancreas.
--- NOTE | 2022-03-15 12:29 | DI.CT.S_ITS ---
PROCEDURE: CT ABDOMEN PELVIS W CON INDICATIONS: Abdominal pain TECHNIQUE: After the administration of oral and IV contrast, axial sections were acquired from the lung bases to the pubic symphysis. Coronal and sagittal reformats were performed. For radiation dose reduction, the following was used: automated exposure control, adjustment of mA and/or kV according to patient size. COMPARISON: [facility], MR, MR LUMBAR SPINE WO CON, 07/03/2021, 15:57. [facility], CT, ABDOMEN/PELVIS WITH CONTRAST, 08/05/2015, 13:30. [facility], CT, CT ABDOMEN PELVIS W CON, 11/30/2021, 21:03. [facility], US, US ABDOMEN COMPLETE, 11/29/2021, 15:54. [facility], CR, XR CHEST 2V, 03/15/2022, 12:59. [facility], CT, CT ABDOMEN PELVIS W CON, 10/17/2021, 14:57. FINDINGS: Image quality: Excellent. Lung bases: Unremarkable. Heart: No significant findings. ABDOMEN: Liver: Diffuse fatty liver infiltration is noted. The liver is normal in size and demonstrates no suspicious lesions. Gallbladder: Removed. Biliary ducts: The common bile duct measures 11 mm, which is near their lobe it is of normal for a post cholecystectomy patient. Pancreas: There is a fluid density lesion seen involving the head of the pancreas, which is similar to the prior study. Spleen: Calcified granulomas are seen within the spleen. The spleen is of normal size and demonstrates no focal lesions. Adrenal Glands: Unremarkable. Kidneys and Ureters: Unremarkable. Stomach and Bowel: Stomach, small bowel loops, and colon are unremarkable. Colonic diverticulosis is seen, without findings of active diverticulitis. A normal appendix is incidentally noted. Peritoneum: No abnormal intraperitoneal fluid. No free air. Ventral Wall: There is a trace fat containing periumbilical hernia. Abdominal Nodes: No retroperitoneal or mesenteric adenopathy by size criteria. Vessels: Aorta and inferior vena cava are normal in size. PELVIS: Pelvic Organs: This patient is status post hysterectomy. No adnexal masses are seen. Bladder: Unremarkable. Pelvic Nodes: No enlarged lymph nodes. Miscellaneous: There is an anterior abdominal wall hernia seen involving the groin just to the right of the midline, which contains anterior portion of the bladder as well as nondilated loops of small bowel and fat. Bones: S-shaped scoliotic curvature is seen. Focal lower lumbar spine degenerative changes are seen. Milder degenerative changes are seen elsewhere. Cystic prominence can be seen of the sacrum. IMPRESSION: There is a pelvic hernia seen centered just to the right of the midline which contains the anterior aspect the bladder as well as fat and nondilated small bowel. This hernia appears slightly worse than on the 11/30/2021 examination. Fluid density lesion seen involving the head of the pancreas. Please consider IPMN. Incidental note is made of: Fatty liver infiltration Cholecystectomy Prior granulomatous exposure. Mild fat containing epigastric hernia Hysterectomy Diverticulosis, without active diverticulitis Focal lower lumbar spine degenerative change Apparent Tarlov cysts of the sacrum, similar to 2016 Dictated by: Juan Ramon Diana M.D. on 03/15/2022 at 12:27 Approved by: Juan Ramon Diana M.D. on 03/15/2022 at 12:34
--- NOTE | 2022-03-15 12:58 | DI.RAD.S_ITS ---
PROCEDURE: XR CHEST 2V INDICATIONS: Abdominal pain TECHNIQUE: 2 views of the chest were acquired. COMPARISON: [facility], CT, CT ABDOMEN PELVIS W CON, 03/15/2022, 13:08. [facility], CR, XR CHEST 2V, 06/25/2021, 12:26. [facility], CR, XR CHEST 2V, 11/05/2021, 18:57. [facility], CR, XR CHEST 1V, 11/08/2021, 11:21. FINDINGS: Surgical changes and devices: Right lower neck clips are seen. Cholecystectomy clips are seen. Lungs and pleura: Lungs are clear. No pleural effusions or pneumothorax. Mediastinum: The cardiac contours are within normal limits. The aorta demonstrates calcification and tortuosity. Bones and chest wall: No suspicious bony abnormalities. Age-appropriate bony degenerative changes are seen. Soft tissues appear unremarkable. IMPRESSION: No acute cardiopulmonary process is seen. Postoperative and degenerative changes are seen. Dictated by: Juan Ramon Diana M.D. on 03/15/2022 at 12:26 Approved by: Juan Ramon Diana M.D. on 03/15/2022 at 12:27
[2022-03-15] MEDS: SODIUM CHLORIDE 0.9% 1,000 ML 1000 ML IV (13:22)
[2022-03-15 13:55] LABS: Creatine Kinase 51 U/L (30-135)
[2022-03-15 14:08] LABS: Troponin I < 0.012 ng/mL (0.01-0.034)
[2022-03-15 14:26] VITALS: BP 134/67; PULSE 66; O2SAT 99
== END 2022-03-15 14:27 | disposition home or self-care (01) ==
PROVIDERS: Emergency Medicine; Emergency Provider Physician Assistant; PCP Nurse Practitioner
DX: K43.9 Ventral hernia without obstruction or gangrene (principal); R10.9 Unspecified abdominal pain; K76.0 Fatty (change of) liver, not elsewhere classified
CPT/HCPCS: 36415; 71046; 74177; 80053; 81003; 81015; 82550; 83690; 84484; 85025; 85610; 85730; 87086; 93005; 93010; 99284; Q9967

== ENCOUNTER → 2022-05-28 07:18 | Outpatient (CLI) | payer MEDICARE, BC, SELFPAY ==
[2022-03-17 12:58] VITALS: BMI 33.3
[2022-05-28 07:55] LABS: Add Manual Diff / Slide Review NO; Basophils Absolute Auto 0 /uL (0-100); Basophils Percent Auto 0.6 % (0-2); Eosinophils Absolute Auto 300 /uL (0-450); Eosinophils Percent Auto 5.2 % (2-4); Hemoglobin 12.8 g/dL (12.0-16.0); Lymphocytes Absolute Auto 2100 /uL (1100-4500); Lymphocytes Percent Auto 33.2 % (25-40); Mean Corpuscular HGB Conc 33.6 % (30-36); Mean Corpuscular Hemoglobin 30.3 PG (26-34); Mean Corpuscular Volume 90.2 fL (80-100); Monocytes Absolute Auto 400 /uL (0-900); Monocytes Percent Auto 6.5 % (3-14); Neutrophils Absolute Auto 3500 /uL (1500-7000); Neutrophils Percent Auto 54.5 % (50-75); Platelet Count 235 X10^3/uL (150-400); Red Blood Cell Count 4.22 X10^6/uL (4.0-5.2); Red Cell Distribution Width 14.5 % (11.6-14.8); White Blood Cell Count 6.4 X10^3/uL (4.5-11.0)
[2022-05-28 08:16] LABS: Hemoglobin A1C% w Est Avg Glu 6.1 % (4.0-6.0)
[2022-05-28 08:26] LABS: HEMOLYSIS < 15 (0-50); Iron 86 ug/dL (37-170)
[2022-05-28 08:28] LABS: Alanine Aminotransferase 27 IU/L (<35); Albumin 4.1 g/dL (3.5-5.0); Albumin Globulin Ratio 1.6 (1.0-2.8); Alkaline Phosphatase 107 U/L (38-126); Aspartate Aminotransferase 22 IU/L (14-36); BUN Creatinine Ratio 16.9 (6-22); Bilirubin Total 0.4 mg/dL (0.2-1.3); Blood Urea Nitrogen 15 mg/dL (7-17); Calcium 9.5 mg/dL (8.4-10.2); Carbon Dioxide 23 mmol/L (22-32); Chloride 106 mmol/L (98-107); Cholesterol 173 mg/dL (140-199); Estimated Glomerular Filt Rate > 60 mL/min (>60); Globulin 2.6 g/dL (1.7-4.1); Glucose 98 mg/dL (80-110); HDL Cholesterol 44 mg/dL (40-60); HEMOLYSIS < 15 (0-50); LDL Cholesterol Calculated 87 mg/dL (<100); Potassium 4.3 mmol/L (3.4-5.1); Sodium 141 mmol/L (137-145); Total Protein 6.7 g/dL (6.3-8.2); Triglycerides 208 mg/dL (35-150)
[2022-05-28 08:29] LABS: Creatinine Urine Random 22.6 mg/dL
[2022-05-28 08:37] LABS: Microalbumin Urine Random < 0.6 mg/dL (0-1.6)
[2022-05-28 08:39] LABS: Percent Iron Saturation 28 % (15-50); Total Iron Binding Capacity 308 ug/dL (265-497); Transferrin 240 mg/dL (206-381)
[2022-05-28 08:46] LABS: Free T3, Triiodothyronine Free 5.09 pg/mL (2.77-5.27); Free T4, Direct Thyroxine 0.84 ng/dL (0.78-2.19)
[2022-05-28 08:59] LABS: Thyroid Stimulating Hormone 4.05 uIU/mL (0.47-4.68)
[2022-05-28 09:05] LABS: Ferritin 33 ng/mL (11-264)
[2022-05-28 09:37] LABS: Folate 9.1 ng/mL (2.76-20.0); Vitamin B12 860 pg/mL (239-931)
== END ==
PROVIDERS: Family Provider Nurse Practitioner; PCP Nurse Practitioner; Referring Provider Nurse Practitioner; Visit Provider Nurse Practitioner
DX: E78.5 Hyperlipidemia, unspecified (principal); Z79.899 Other long term (current) drug therapy; K76.0 Fatty (change of) liver, not elsewhere classified; I10 Essential (primary) hypertension; M62.81 Muscle weakness (generalized); R53.82 Chronic fatigue, unspecified; R73.03 Prediabetes; Z13.1 Encounter for screening for diabetes mellitus
CPT/HCPCS: 36415; 80053; 80061; 82043; 82570; 82607; 82728; 82746; 83036; 83540; 83550; 84439; 84443; 84481; 85025

== ENCOUNTER → 2022-06-06 14:24 | Outpatient (CLI) | payer MEDICARE, BC, SELFPAY ==
[2022-03-17 12:58] VITALS: BMI 33.3
[2022-06-06 15:43] LABS: Add Manual Diff / Slide Review NO; Basophils Absolute Auto 100 /uL (0-100); Basophils Percent Auto 0.8 % (0-2); Eosinophils Absolute Auto 100 /uL (0-450); Hematocrit 38.6 % (36-46); Hemoglobin 12.8 g/dL (12.0-16.0); Lymphocytes Absolute Auto 1900 /uL (1100-4500); Lymphocytes Percent Auto 26.4 % (25-40); Mean Corpuscular HGB Conc 33.1 % (30-36); Mean Corpuscular Hemoglobin 30.1 PG (26-34); Mean Corpuscular Volume 90.8 fL (80-100); Monocytes Absolute Auto 600 /uL (0-900); Neutrophils Absolute Auto 4600 /uL (1500-7000); Neutrophils Percent Auto 62.8 % (50-75); Platelet Count 270 X10^3/uL (150-400); Red Blood Cell Count 4.25 X10^6/uL (4.0-5.2); Red Cell Distribution Width 14.1 % (11.6-14.8); White Blood Cell Count 7.3 X10^3/uL (4.5-11.0)
[2022-06-06 17:07] LABS: BUN Creatinine Ratio 14.3 (6-22); Blood Urea Nitrogen 14 mg/dL (7-17); Calcium 9.9 mg/dL (8.4-10.2); Carbon Dioxide 24 mmol/L (22-32); Chloride 103 mmol/L (98-107); Estimated Glomerular Filt Rate > 60 mL/min (>60); Glucose 99 mg/dL (80-110); HEMOLYSIS < 15 (0-50); Magnesium 1.9 mg/dL (1.6-2.3); Potassium 4.2 mmol/L (3.4-5.1); Sodium 139 mmol/L (137-145)
== END ==
PROVIDERS: Family Provider Nurse Practitioner; PCP Nurse Practitioner; Referring Provider Internal Medicine Cardiovascular Disease; Visit Provider Internal Medicine Cardiovascular Disease
DX: I25.89 Other forms of chronic ischemic heart disease (principal)
CPT/HCPCS: 36415; 80048; 83735; 85025

== ENCOUNTER 2022-06-12 09:05 | Emergency (ER) | payer MEDICARE, BC, SELFPAY ==
[2022-03-17 12:58] VITALS: BMI 33.3
[2022-06-12] VITALS (72 sets, daily range): BP systolic 92–136; BP diastolic 49–76; PULSE 59–86; RESP 8–22; TEMP 36.4; O2SAT 93–98; BMI 34.0
--- NOTE | 2022-06-12 09:14 | DI.RAD.S_ITS ---
PROCEDURE: XR CHEST 1V INDICATIONS: chest pain TECHNIQUE: One view of the chest was acquired. COMPARISON: [facility], CR, XR CHEST 1V, 11/08/2021, 11:21. FINDINGS: Surgical changes and devices: None. Lungs and pleura: Lungs are clear. No pleural effusions or pneumothorax. Mediastinum: Mediastinal contours appear normal. Heart size is normal. Bones and chest wall: No suspicious bony lesions. Overlying soft tissues appear unremarkable. IMPRESSION: No acute process. Dictated by: Keo Pope M.D. on 06/12/2022 at 9:30 Approved by: Keo Pope M.D. on 06/12/2022 at 9:31
--- NOTE | 2022-06-12 09:15 | ED_ITS ---
HPI - Chest Pain General Chief Complaint: Chest Pain Stated Complaint: angina,pain in lt arm Time Seen by Provider: 06/12/22 09:15 History of Present Illness HPI narrative: Patient is a 72-year-old female history of microvascular coronary artery disease, hypertension hyperlipidemia followed by cardiology at [facility] presents today with worsening chest discomfort and left arm discomfort. She says it has been progressively getting worse since Naseem. She says she has angina attacks regularly. She takes nitro. However pain today came across her chest and was worse than normal. She did take nitroglycerin at home and she took aspirin last night. He is short of breath with exertion. Minimal nausea no vomiting. She is having some minor epigastric pain Related Data Home Medications Medication Instructions Recorded Confirmed aspirin 81 mg tablet,delayed 81 mg PO QPM ##0 01/25/17 04/09/22 release alpha lipoic acid 600 mg capsule 600 mg PO DAILY 03/01/21 04/09/22 isosorbide mononitrate 30 mg 30 mg PO QAM 03/01/21 04/09/22 tablet,extended release 24 hr omega 3 690 mg PO DAILY 03/01/21 04/09/22 spironolactone 25 mg tablet 25 mg PO DAILY 03/01/21 04/09/22 torsemide 10 mg tablet 10 mg PO DAILY 03/01/21 04/09/22 fish oil-vit E-fat acids cap PO 05/17/21 04/09/22 comb.5-herbal comb. 137 400 mg-5 unit capsule (Flax, Fish and Borage Oil) ezetimibe 10 mg tablet (Zetia) 10 mg PO DAILY 03/18/22 04/09/22 Previous Rx's Medication Instructions Recorded miscellaneous medical supply 1 each .Route .COMPLEX to aid in 08/23/19 walking and ADL's #1 ea lidocaine HCl 2 % mucosal solution 1 applic mucous membrane Q8H PRN 04/04/21 (Lidocaine Viscous) pain #100 mL nitroglycerin 0.4 mg sublingual 0.4 mg sublingual Q5-15M PRN 05/17/21 tablet angina #30 tabs aripiprazole 20 mg tablet See Rx Instructions .Route 11/18/21 .COMPLEX #45 tabs naltrexone 50 mg tablet 50 mg PO DAILY #90 tabs 04/09/22 isosorbide mononitrate 60 mg 60 mg PO DAILY #60 tabs 06/12/22 tablet,extended release 24 hr Allergies Allergy/AdvReac Type Severity Reaction Status Date / Time prednisone Allergy Unknown Verified 06/12/22 09:14 ciprofloxacin AdvReac Severe Weakness Verified 06/12/22 09:14 atorvastatin [From Lipitor] AdvReac Intermediate Muscle Verified 06/12/22 09:14 aches and pains cimetidine [From TAGAMET] AdvReac Mild hallucinati Verified 06/12/22 09:14 ons codeine [CODEINE] AdvReac Mild hallucinati Verified 06/12/22 09:14 ons lisinopril [LISINOPRIL] AdvReac Mild cough/GI Verified 06/12/22 09:14 issues metoprolol AdvReac Mild Verified 06/12/22 09:14 ranitidine [From ZANTAC] AdvReac Mild hallucinati Verified 06/12/22 09:14 ons Patient History Medical History Abdominal pain Activity intolerance Acute pancreatitis Adrenal adenoma Adverse effects of medication Anemia Anosmia Atypical chest pain Cerebrovascular small vessel disease Cervical dystonia (1986) Cervical dystonia Chicken pox (1956) Cholecystectomy planned Chronic fatigue (08/07/15) Chronic venous insufficiency (10/11/15) Colon polyps Coronary artery disease Cough CTS (carpal tunnel syndrome) (1986) Denervation of muscle Depression (1974) Diastasis of rectus abdominis (08/07/15) Diastolic heart failure Diverticulitis large intestine Dyspnea Dyspnea Dyspnea on exertion Episodic lightheadedness Fatigue Gastritis Generalized abdominal pain (08/07/15) Generalized muscle weakness Headache Hepatic steatosis History of coronary artery disease History of progressive weakness History of unstable angina Hyperlipidemia Hypertension Itch of skin Measles (1957) Metallic taste (10/11/15) Mumps (1958) Myasthenia gravis Neoplasm of uncertain behavior of skin (10/11/15) NSAID induced gastritis Osteopenia after menopause Osteoporosis Peripheral arterial disease Peripheral neuropathy (2012) Piriformis syndrome of right side Post viral syndrome Progressive neurological disorder Right hip pain Shortness of breath (08/27/15) Situational depression Sjogren's syndrome (2012) Skin cancer (2015) Sleep apnea (2009) Small fiber polyneuropathy SOB (shortness of breath) (2010) Status post DANILO-BSO Tarlov cysts Ventral hernia Visual disturbance Surgical History Anesthesia complication History of carpal tunnel repair (1989) History of cervical spinal surgery (07/2008) History of hernia repair History of laparoscopic cholecystectomy (2006) S/P DANILO-BSO (total abdominal hysterectomy and bilateral salpingo-oophorectomy) (01/2007) Status post hernia repair (2013) Status post hernia repair (2007) Family History Brother Age: 65 Prostate cancer Heart disease Hypertension High cholesterol Heart attack Brother Age: 63 Hypertension Mental health problem Kidney transplant recipient Chronic kidney disease with end stage renal failure on dialysis Father Colon cancer Heart disease Mental health problem Heart failure Grandfather Heart disease Hypertension Brain aneurysm Mother Cancer Hypertension NHL (non-Hodgkin's lymphoma) Grandmother Stroke Sister Age: 71 Celiac disease High cholesterol Mental health problem Thyroid disorder Sister Age: 67 Psoriatic arthritis Thyroid disorder Grandmother Alzheimer's disease Grandfather Colon cancer Sister Breast cancer Sister Suicide Brother No problems noted. Sister Thyroid disorder Social History marital status: household members: spouse occupational status: previously employed Smoking Status: Never smoker alcohol intake: never substance use type: does not use Smoking Status: Never smoker alcohol intake frequency: holidays/special occasions only Substance Use Type: does not use Exam Initial Vital Signs Initial Vital Signs: Vital Signs Temperature 97.5 F L 06/12/22 09:08 Pulse Rate 74 06/12/22 09:08 Respiratory Rate 12 06/12/22 09:08 Blood Pressure 136/73 06/12/22 09:08 Pulse Oximetry 98 06/12/22 09:08 Oxygen Delivery Method 06/12/22 09:08 GENERAL: Alert 72 female appears mildly uncomfortable HEENT: Head atraumatic,EOMI, pupils reactive, face symmetric, moist mucous membranes CARDIOVASCULAR: Regular rate and rhythm without murmurs, rubs or gallops. RESPIRATORY: Breath sounds equal bilaterally, no wheezes rales or rhonchi. ABDOMEN: Soft, nontender. Normoactive bowel sounds all 4 quadrants. No guarding or rebound. EXTREMITIES: Normal range of motion, no clubbing or edema. Neurovascularly intact NEUROLOGICAL: Alert and oriented x4.Normal gait and speech. SKIN: Warm, dry, no laceration, no petechiae, no rashes or lesions. Course Orders Ordered: ED Orders 06/12/22 11:30 Trop I [Troponin I] Stat 06/12/22 11:35 EKG-12 Lead Stat 06/12/22 15:15 Trop I [Troponin I] Stat Discontinued Medications Aspirin (Aspirin 81 Mg Chew Tab) 324 mg PO NOW ONE Stop: 06/12/22 09:24 Last Admin: 06/12/22 09:38 Dose: 324 mg Documented By: MAXWELL Nitroglycerin (Nitroglycerin 0.4 Mg Sl Tab) 0.4 mg SL [id number] PRN PRN Reason: Chest Pain Last Admin: 06/12/22 09:51 Dose: 0.4 mg Documented By: Admin: 06/12/22 09:39 Dose: 0.4 mg Documented By: MAXWELL Vital Signs Vital signs: Vital Signs - 8 hr 06/12/22 11:29 06/12/22 11:29 06/12/22 11:30 Pulse Rate 66 67 Respiratory Rate 16 14 Blood Pressure 114/67 Pulse Oximetry 95 97 06/12/22 11:31 06/12/22 11:31 06/12/22 11:36 Pulse Rate 69 Respiratory Rate 15 Blood Pressure 133/61 105/49 L Pulse Oximetry 97 06/12/22 11:36 06/12/22 11:44 06/12/22 11:44 Pulse Rate 65 63 Respiratory Rate 20 22 Blood Pressure 108/68 Pulse Oximetry 95 96 06/12/22 11:45 06/12/22 11:45 06/12/22 11:50 Pulse Rate 61 59 L Respiratory Rate 13 13 Blood Pressure 119/67 Pulse Oximetry 96 96 06/12/22 11:50 06/12/22 11:55 06/12/22 11:55 Pulse Rate 68 Respiratory Rate 15 Blood Pressure 118/60 113/65 Pulse Oximetry 96 06/12/22 12:00 06/12/22 12:00 06/12/22 12:05 Pulse Rate 64 Respiratory Rate 14 Blood Pressure 112/68 109/67 Pulse Oximetry 95 06/12/22 12:05 06/12/22 12:10 06/12/22 12:10 Pulse Rate 70 67 Respiratory Rate 13 Blood Pressure 111/65 Pulse Oximetry 96 94 06/12/22 12:15 06/12/22 12:15 06/12/22 12:20 Pulse Rate 62 Respiratory Rate 15 Blood Pressure 126/66 120/63 Pulse Oximetry 96 06/12/22 12:20 06/12/22 12:25 06/12/22 12:25 Pulse Rate 66 68 Respiratory Rate 12 13 Blood Pressure 105/66 Pulse Oximetry 96 97 06/12/22 12:30 06/12/22 12:30 06/12/22 12:35 Pulse Rate 65 Respiratory Rate Blood Pressure 109/70 122/68 Pulse Oximetry 97 06/12/22 12:35 06/12/22 12:40 06/12/22 12:40 Pulse Rate 69 73 Respiratory Rate 12 22 Blood Pressure 118/67 Pulse Oximetry 96 96 06/12/22 12:50 06/12/22 12:50 06/12/22 12:55 Pulse Rate 72 Respiratory Rate 16 Blood Pressure 116/73 110/72 Pulse Oximetry 95 06/12/22 12:55 06/12/22 13:10 06/12/22 13:10 Pulse Rate 67 68 Respiratory Rate 11 L 15 Blood Pressure 112/68 Pulse Oximetry 94 97 06/12/22 13:15 06/12/22 13:15 06/12/22 13:20 Pulse Rate 71 74 Respiratory Rate 16 13 Blood Pressure 127/64 Pulse Oximetry 95 96 06/12/22 13:20 06/12/22 13:25 06/12/22 13:25 Pulse Rate 70 Respiratory Rate 15 Blood Pressure 108/65 117/64 Pulse Oximetry 95 06/12/22 13:30 06/12/22 13:30 06/12/22 13:35 Pulse Rate 71 Respiratory Rate 15 Blood Pressure 114/68 124/72 Pulse Oximetry 95 06/12/22 13:35 06/12/22 13:40 06/12/22 13:40 Pulse Rate 71 71 Respiratory Rate 12 Blood Pressure 105/67 Pulse Oximetry 95 95 06/12/22 13:56 06/12/22 13:56 06/12/22 14:00 Pulse Rate 75 Respiratory Rate Blood Pressure 101/75 107/76 Pulse Oximetry 96 06/12/22 14:00 06/12/22 14:05 06/12/22 14:05 Pulse Rate 68 72 Respiratory Rate 14 Blood Pressure 100/62 Pulse Oximetry 95 95 06/12/22 14:10 06/12/22 14:10 06/12/22 14:15 Pulse Rate 71 Respiratory Rate 15 Blood Pressure 106/61 109/62 Pulse Oximetry 94 06/12/22 14:15 06/12/22 14:20 06/12/22 14:20 Pulse Rate 74 77 Respiratory Rate 15 15 Blood Pressure 111/65 Pulse Oximetry 94 95 06/12/22 14:25 06/12/22 14:25 06/12/22 14:30 Pulse Rate 76 Respiratory Rate 13 Blood Pressure 114/58 L 114/63 Pulse Oximetry 94 06/12/22 14:30 06/12/22 14:35 06/12/22 14:35 Pulse Rate 71 73 Respiratory Rate 14 14 Blood Pressure 115/67 Pulse Oximetry 94 94 06/12/22 14:40 06/12/22 14:40 06/12/22 14:45 Pulse Rate 73 Respiratory Rate 13 Blood Pressure 126/58 L 111/56 L Pulse Oximetry 94 06/12/22 14:45 06/12/22 14:50 06/12/22 14:50 Pulse Rate 69 73 Respiratory Rate 19 Blood Pressure 112/56 L Pulse Oximetry 96 94 06/12/22 14:55 06/12/22 14:55 06/12/22 15:00 Pulse Rate 73 Respiratory Rate 14 Blood Pressure 103/56 L 107/66 Pulse Oximetry 94 06/12/22 15:00 06/12/22 15:05 06/12/22 15:05 Pulse Rate 73 73 Respiratory Rate 14 12 Blood Pressure 105/64 Pulse Oximetry 94 93 06/12/22 15:10 06/12/22 15:10 06/12/22 15:16 Pulse Rate 72 Respiratory Rate 13 Blood Pressure 92/62 123/58 L Pulse Oximetry 94 06/12/22 15:16 06/12/22 15:19 06/12/22 15:20 Pulse Rate 70 70 Respiratory Rate 17 20 Blood Pressure 120/63 Pulse Oximetry 94 96 06/12/22 15:20 06/12/22 15:25 06/12/22 15:25 Pulse Rate 72 68 Respiratory Rate 17 17 Blood Pressure 119/57 L Pulse Oximetry 95 96 06/12/22 15:30 06/12/22 15:30 06/12/22 15:35 Pulse Rate 69 Respiratory Rate 18 Blood Pressure 111/53 L 117/58 L Pulse Oximetry 94 06/12/22 15:35 06/12/22 15:40 06/12/22 15:40 Pulse Rate 66 71 Respiratory Rate 12 13 Blood Pressure 117/68 Pulse Oximetry 94 94 06/12/22 15:45 06/12/22 15:51 06/12/22 15:51 Pulse Rate 71 69 Respiratory Rate 12 15 Blood Pressure 119/71 Pulse Oximetry 95 95 06/12/22 15:55 06/12/22 15:55 06/12/22 16:00 Pulse Rate 69 Respiratory Rate 13 Blood Pressure 120/62 120/64 Pulse Oximetry 93 06/12/22 16:00 06/12/22 16:05 06/12/22 16:05 Pulse Rate 73 69 Respiratory Rate 17 16 Blood Pressure 124/59 L Pulse Oximetry 94 93 06/12/22 16:10 06/12/22 16:10 06/12/22 16:15 Pulse Rate 68 Respiratory Rate 14 Blood Pressure 120/68 114/57 L Pulse Oximetry 93 06/12/22 16:15 Pulse Rate 70 Respiratory Rate 20 Blood Pressure Pulse Oximetry 94 MDM - Chest Pain Lab Data Result diagrams: 06/12/22 09:20 06/12/22 09:20 Labs: Lab Results 06/12/22 06/12/22 06/12/22 Range/Units 09:20 09:20 09:20 WBC 6.3 (4.5-11.0) X10^3/uL RBC 4.17 (4.0-5.2) X10^6/uL Hgb 12.7 (12.0-16.0) g/dL Hct 38.3 (36-46) % MCV 91.8 (80-100) fL MCH 30.5 (26-34) PG MCHC 33.2 (30-36) % RDW 14.0 (11.6-14.8) % Plt Count 232 (150-400) X10^3/uL Neut % (Auto) 58.7 (50-75) % Lymph % (Auto) 26.7 (25-40) % [place] % (Auto) 10.2 (3-14) % Eos % (Auto) 3.1 (2-4) % Baso % (Auto) 1.3 (0-2) % Neut # (Auto) 3700 (4791-0321) /uL Lymph # (Auto) 1700 (0186-8405) /uL [place] # (Auto) 600 (0-900) /uL Eos # (Auto) 200 (0-450) /uL Baso # (Auto) 100 (0-100) /uL PT 11.9 (10.1-12.7) SECONDS INR 1.0 (0.9-1.3) APTT 25 L (26-36) SECONDS Sodium 139 (137-145) mmol/L Potassium 3.8 (3.4-5.1) mmol/L Chloride 101 (98-107) mmol/L Carbon Dioxide 25 (22-32) mmol/L BUN 11 (7-17) mg/dL Creatinine 0.93 (0.52-1.04) mg/dL Estimated GFR > 60 (>60) mL/min BUN/Creatinine Ratio 11.8 (6-22) Glucose 102 (80-110) mg/dL Calcium 9.7 (8.4-10.2) mg/dL Magnesium 2.0 (1.6-2.3) mg/dL Total Bilirubin 0.7 (0.2-1.3) mg/dL AST 29 (14-36) IU/L ALT 29 (<35) IU/L Alkaline Phosphatase 107 (38-126) U/L Total Creatine Kinase 66 (30-135) U/L CK-MB (CK-2) TNP CK-MB (CK-2) Rel Index TNP Troponin I < 0.012 (0.01-0.034) ng/mL Total Protein 7.7 (6.3-8.2) g/dL Albumin 4.8 (3.5-5.0) g/dL Globulin 2.9 (1.7-4.1) g/dL Albumin/Globulin Ratio 1.7 (1.0-2.8) Lipase 143 (23-300) U/L 06/12/22 06/12/22 Range/Units 11:30 15:15 WBC (4.5-11.0) X10^3/uL RBC (4.0-5.2) X10^6/uL Hgb (12.0-16.0) g/dL Hct (36-46) % MCV (80-100) fL MCH (26-34) PG MCHC (30-36) % RDW (11.6-14.8) % Plt Count (150-400) X10^3/uL Neut % (Auto) (50-75) % Lymph % (Auto) (25-40) % Berg[place] % (Auto) (3-14) % Eos % (Auto) (2-4) % Baso % (Auto) (0-2) % Neut # (Auto) (0466-3998) /uL Lymph # (Auto) (1453-4100) /uL Berg[place] # (Auto) (0-900) /uL Eos # (Auto) (0-450) /uL Baso # (Auto) (0-100) /uL PT (10.1-12.7) SECONDS INR (0.9-1.3) APTT (26-36) SECONDS Sodium (137-145) mmol/L Potassium (3.4-5.1) mmol/L Chloride (98-107) mmol/L Carbon Dioxide (22-32) mmol/L BUN (7-17) mg/dL Creatinine (0.52-1.04) mg/dL Estimated GFR (>60) mL/min BUN/Creatinine Ratio (6-22) Glucose (80-110) mg/dL Calcium (8.4-10.2) mg/dL Magnesium (1.6-2.3) mg/dL Total Bilirubin (0.2-1.3) mg/dL AST (14-36) IU/L ALT (<35) IU/L Alkaline Phosphatase (38-126) U/L Total Creatine Kinase (30-135) U/L CK-MB (CK-2) CK-MB (CK-2) Rel Index Troponin I < 0.012 < 0.012 (0.01-0.034) ng/mL Total Protein (6.3-8.2) g/dL Albumin (3.5-5.0) g/dL Globulin (1.7-4.1) g/dL Albumin/Globulin Ratio (1.0-2.8) Lipase (23-300) U/L Imaging Data Chest x-ray: Radiologist's Impression: XRay Report Signed Patient: Elizbaeth Maravilla MR#: [id number] : 1950 Acct:[id number] Age/Sex: 72 / F Date of Service: 06/12/22 Loc: ED Accession Number: [id number] ?? Procedure: XR chest 1V Ordering Provider: Yadira Ram D.O. PROCEDURE:? XR CHEST 1V ? INDICATIONS:? chest pain ? TECHNIQUE:? One view of the chest was acquired.? ? COMPARISON:? [facility], CR, XR CHEST 1V, 11/08/2021, 11:21. ? FINDINGS:? ? Surgical changes and devices:? None.? ? Lungs and pleura:? Lungs are clear.? No pleural effusions or pneumothorax.? ? Mediastinum:? Mediastinal contours appear normal.? Heart size is normal.? ? Bones and chest wall:? No suspicious bony lesions.? Overlying soft tissues appear unremarkable.? ? IMPRESSION:? No acute process. ? ? Dictated by: Keo Pope M.D. on 06/12/2022 at 9:30 ? ? ECG Data Interpretation: Normal sinus rhythm rate 70 NJ 154 QRS 100 QTC 444, no ST changes no T-wave inversion MRN number appears to have been put in wrong but previous EKGs appear similar Normal sinus rhythm rate 62 NJ interval 174 QRS [address] changes T-wave inversion persistent in precordial leads V2 V3 V4 V5 and V6. MDM Narrative Medical decision making narrative: Patient is 72-year-old female with known history of coronary artery disease presenting today with increasing chest discomfort left arm discomfort frequent attacks. She is followed by [facility] cardiology. She is 2- troponins and 2 EKGs without any ischemic changes. She has been given nitroglycerin and aspirin here in the emergency department the nitro does seem to help a little bit but she does continue to have some spikes in pain. Overall she is feeling a bit better. 14:44 Dr. Amin, cardiology on-call [facility] is quite familiar with the patient. Agrees that this is likely anginal she is microvascular disease she is had multiple cardiac catheterizations and stress test. Recommend increasing her Imdur to 60 mg and stopping losartan completely. She will follow-up with her in clinic. Patient had a 3rd troponin prior to discharge due to T-wave inversions noted sudden EKG 3rd troponin is also negative. Patient has a history of angina I have discussed with Cardiology plan is to increase Imdur her losartan [] Multiple etiologies for patient's symptoms considered including, but not limited to: Acute coronary syndrome, dissection pulmonary embolism Prior Charts reviewed: PCP no from 04/09/2022 Labs reviewed and interpreted by myself: Imaging reviewed: Chest x-ray no acute process Consultations: Cardiology Patient's symptoms improved over duration of stay with above-stated therapies. Patient received aspirin and nitroglycerin Findings and discharge diagnosis discussed with patient/family followed by verbalization of understanding Return precautions discussed with patient/family whom verbalize understanding of diagnosis and plan Discharge Plan Departure Patient Disposition: Home Clinical Impression: Chronic stable angina Clinical Impression: (Ruled Out): History of coronary artery disease Instructions: DI for Angina Activity Restrictions/Additional Instructions: *You have been diagnosed with stable angina *What to do: At this time blood work is overall reassuring. I did speak with your director general today who recommended changing some medication as directed below. Please continue to monitor and follow with Cardiology as directed *Continue to take medications as directed Imdur 60 mg once daily (stop 30 mg once daily) --> SENT TO [facility] Stop losartan *Follow up with your primary care provider in 2-3 days or call [phone] *Return to ER if you should have increasing dizziness lightheadedness changing and chest discomfort, left arm pain, jaw pain, back or any new, worsening or concerning symptoms Prescriptions: New isosorbide mononitrate 60 mg tablet extended release 24 hr 60 mg PO DAILY Qty: 60 0RF No Action lidocaine HCl [Lidocaine Viscous] 2 % solution 1 applic mucous membrane Q8H PRN (Reason: pain) Qty: 100 0RF Rx Instructions: Mix 10mL of viscous lidocaine, 10mL of Mag-Al Plus, and 10mL of oral benadryl suspension. Swish medication in mouth then spit out up to every 8 hours for pain. aspirin 81 MG tablet,delayed release (DR/EC) 81 mg PO QPM Qty: 0 miscellaneous medical supply Misc 1 each .ROUTE .COMPLEX Qty: 1 0RF Rx Instructions: Medical equipment: [employer] nitro euro style aripiprazole 20 mg tablet See Rx Instructions .ROUTE .COMPLEX Qty: 45 2RF Dose Instruction: TAKE 1/2 TABLET BY MOUTH DAILY Rx Instructions: TAKE 1/2 TABLET BY MOUTH DAILY ezetimibe [Zetia] 10 mg tablet 10 mg PO DAILY Hold Instructions: Muscle weakness and fatigue naltrexone 50 mg tablet 50 mg PO DAILY Qty: 90 3RF Rx Instructions: Titrate per [facility] titration schedule for fatigue, weakness, and pain isosorbide mononitrate 30 mg tablet extended release 24 hr 30 mg PO QAM torsemide 10 mg tablet 10 mg PO DAILY spironolactone 25 mg tablet 25 mg PO DAILY omega 3 690 mg PO DAILY alpha lipoic acid 600 mg capsule 600 mg PO DAILY nitroglycerin 0.4 mg tablet, sublingual 0.4 mg sublingual Q5-15M PRN (Reason: angina) Qty: 30 3RF Rx Instructions: do not exceed 3 doses per episode Flax, Fish and Borage Oil 400-5 mg-unit capsule PO Referrals: Doris Schreiber ARNP [Primary Care Provider] - Stand Alone Forms: Patient Portal/API
[2022-06-12] MEDS: ASPIRIN 81 MG CHEW TAB 324 MG PO (09:38)
[2022-06-12] MEDS: NITROGLYCERIN 0.4 MG SL TAB SL ×2 (09:39→09:51)
[2022-06-12 09:56] LABS: Add Manual Diff / Slide Review NO; Basophils Absolute Auto 100 /uL (0-100); Basophils Percent Auto 1.3 % (0-2); Eosinophils Absolute Auto 200 /uL (0-450); Eosinophils Percent Auto 3.1 % (2-4); Hematocrit 38.3 % (36-46); Hemoglobin 12.7 g/dL (12.0-16.0); Lymphocytes Absolute Auto 1700 /uL (1100-4500); Lymphocytes Percent Auto 26.7 % (25-40); Mean Corpuscular HGB Conc 33.2 % (30-36); Mean Corpuscular Hemoglobin 30.5 PG (26-34); Mean Corpuscular Volume 91.8 fL (80-100); Monocytes Absolute Auto 600 /uL (0-900); Monocytes Percent Auto 10.2 % (3-14); Neutrophils Absolute Auto 3700 /uL (1500-7000); Neutrophils Percent Auto 58.7 % (50-75); Platelet Count 232 X10^3/uL (150-400); Red Blood Cell Count 4.17 X10^6/uL (4.0-5.2); White Blood Cell Count 6.3 X10^3/uL (4.5-11.0)
[2022-06-12 10:04] LABS: Prothrombin Time 11.9 SECONDS (10.1-12.7)
[2022-06-12 10:06] LABS: PTT Partial Thromboplastin Tim 25 SECONDS (26-36)
[2022-06-12 10:08] LABS: Alanine Aminotransferase 29 IU/L (<35); Albumin 4.8 g/dL (3.5-5.0); Albumin Globulin Ratio 1.7 (1.0-2.8); Alkaline Phosphatase 107 U/L (38-126); Aspartate Aminotransferase 29 IU/L (14-36); BUN Creatinine Ratio 11.8 (6-22); Bilirubin Total 0.7 mg/dL (0.2-1.3); Blood Urea Nitrogen 11 mg/dL (7-17); Calcium 9.7 mg/dL (8.4-10.2); Carbon Dioxide 25 mmol/L (22-32); Chloride 101 mmol/L (98-107); Creatine Kinase 66 U/L (30-135); Estimated Glomerular Filt Rate > 60 mL/min (>60); Globulin 2.9 g/dL (1.7-4.1); Glucose 102 mg/dL (80-110); HEMOLYSIS < 15 (0-50); Lipase 143 U/L (23-300); Potassium 3.8 mmol/L (3.4-5.1); Sodium 139 mmol/L (137-145); Total Protein 7.7 g/dL (6.3-8.2)
[2022-06-12 10:20] LABS: Troponin I < 0.012 ng/mL (0.01-0.034)
[2022-06-12 12:11] LABS: Troponin I < 0.012 ng/mL (0.01-0.034)
[2022-06-12 15:56] LABS: Troponin I < 0.012 ng/mL (0.01-0.034)
== END 2022-06-12 16:22 | disposition home or self-care (01) ==
PROVIDERS: Emergency Provider Emergency Medicine; Family Provider Nurse Practitioner; PCP Nurse Practitioner
DX: I25.118 Atherosclerotic heart disease of native coronary artery with other forms of angina pectoris (principal); R10.13 Epigastric pain; Z79.899 Other long term (current) drug therapy
CPT/HCPCS: 36415; 71045; 80053; 82550; 83690; 83735; 84484; 85025; 85610; 85730; 93005; 93010; 99284

== ENCOUNTER → 2022-07-19 09:40 | Outpatient (CLI) | payer MEDICARE, BC, SELFPAY ==
[2022-03-17 12:58] VITALS: BMI 33.3
[2022-07-19 11:13] LABS: Hematocrit 38.2 % (36-46); Hemoglobin 12.7 g/dL (12.0-16.0)
== END ==
PROVIDERS: Family Provider Nurse Practitioner; PCP Nurse Practitioner; Referring Provider Nurse Practitioner; Visit Provider Nurse Practitioner
DX: I67.9 Cerebrovascular disease, unspecified (principal); R06.02 Shortness of breath
CPT/HCPCS: 36415; 85014; 85018

== ENCOUNTER → 2022-07-23 12:30 | Outpatient (CLI) | payer MEDICARE, BC, SELFPAY ==
[2022-03-17 12:58] VITALS: BMI 33.3
--- NOTE | 2022-07-23 12:32 | DI.MG.S_ITS ---
BILATERAL DIGITAL SCREENING MAMMOGRAM 3D/2D WITH CAD: 07/23/2022 CLINICAL: Routine screening. Family history of breast cancer. Comparison is made to exams dated: 07/15/2021 mammogram, 07/20/2020 mammogram, and 07/15/2019 mammogram - [facility]. There are scattered areas of fibroglandular density in both breasts (category b / 25%-50% glandular tissue). Current study was also evaluated with a Computer Aided Detection (CAD) system. There is a benign focal asymmetry in the left breast. There also are benign calcifications in both breasts. No significant masses, calcifications, or other findings are seen in either breast. There has been no significant interval change. IMPRESSION: BENIGN There is no mammographic evidence of malignancy. A 1 year screening mammogram is recommended. Based on the Tyrer Cuzick model (a risk assessment model) the patient's lifetime risk is 6.1% and her 10 year risk is 4.6%. According to the ACR, ACS, and NCCN guidelines, an annual breast MRI exam along with mammogram is recommended if the patient's lifetime risk is 20% or greater. This exam was interpreted at Station ID: [id number]. NOTE: For mammograms, a report in lay terms will be sent to the patient. Approximately 15% of breast malignancies will not be visualized mammographically. In the management of a palpable breast mass, a negative mammogram must not discourage biopsy of a clinically suspicious lesion. Electronically Signed By: Jimbo ramirez/eleonora:07/23/2022 16:50:11 letter sent: Normal Exam ACR BI-RADS Category 2: Benign Finding(s) 3342F
== END ==
PROVIDERS: Family Provider Nurse Practitioner; PCP Nurse Practitioner; Referring Provider Nurse Practitioner; Visit Provider Nurse Practitioner
DX: Z12.31 Encounter for screening mammogram for malignant neoplasm of breast (principal); Z80.3 Family history of malignant neoplasm of breast
CPT/HCPCS: 77063; 77067

== ENCOUNTER → 2022-07-24 08:16 | Outpatient (CLI) | payer MEDICARE, BC, SELFPAY ==
[2022-03-17 12:58] VITALS: BMI 33.3
--- NOTE | 2022-07-30 10:27 | PM.PFT.1 ---
Pulmonary Function Test Referral & Results Date Patient Seen: 08/21/22 Requesting provider: Doris Schreiber Results: The spirometry demonstrates an FVC of 2.58 L which is 92% of predicted. The FEV1 was measured at 2.09 L which is 98% of predicted. The FEV1/FVC ratio was 81 which is 107% of predicted. Following the administration of bronchodilator there was a 24% improvement in FEF 25-75%. Lung volumes show an SVC of 2.77 L which is 102% of predicted. The diffusing capacity was measured at 17.71 which is 77% of predicted. No hemoglobin value was provided, so no correction for potential anemia could be made, if appropriate. The maximum voluntary ventilation was slightly reduced Interpretation: This study demonstrates normal spirometry although maximum voluntary ventilation slightly reduced which in the absence of abnormalities of spirometry suggest the possibility of neuromuscular disease There is a minimal reduction diffusing capacity unless the patient is anemic as above Compared to forced spirometry performed in September 2016, current study is unchanged (although no diffusing capacity or lung volumes were performed previously) Clinical correlation suggested
== END ==
PROVIDERS: Family Provider Nurse Practitioner; PCP Nurse Practitioner; Referring Provider Nurse Practitioner; Visit Provider Nurse Practitioner
DX: R06.02 Shortness of breath (principal); M62.81 Muscle weakness (generalized); R29.818 Other symptoms and signs involving the nervous system; J98.8 Other specified respiratory disorders
CPT/HCPCS: 94060; 94726; 94729

== ENCOUNTER 2022-08-05 10:30 | Outpatient (RCR) | payer MEDICARE, BC, SELFPAY ==
[2022-03-17 12:58] VITALS: BMI 33.3
--- NOTE | 2022-04-07 09:27 | PT.OTN ---
Current Diagnoses Polyneuropathy in diseases classified elsewhere (04/07/22) Muscle weakness (generalized) (04/07/22) Other abnormalities of gait and mobility (04/07/22) Other symptoms and signs involving the nervous system (04/07/22) Chronic fatigue, unspecified (04/07/22) History of falling (04/07/22) Physical Therapy Treatment Note PT-OP-A Visit Information Start: 04/03/22 09:11 Freq: Status: Active Protocol: Document 04/07/22 08:13 SAK (Rec: 04/07/22 09:03 SAK [id number]) Out-Patient Physical Therapy Visit Information Visit Information Visit Type Treatment Note Visit Start Time 08:14 Visit Stop Time 08:58 Total Visit Minutes 43 Visit Number 2 Evaluation Information Evaluation Date 04/03/22 Precautions Precautions Sjogren's, cardiac history, fatigues easily, PT-OP-B Current Condition Start: 04/03/22 09:11 Freq: Status: Active Protocol: Document 04/07/22 08:13 SAK (Rec: 04/07/22 09:03 SAK [id number]) Current Condition History of Current Condition Onset Date October 30 Current Complaints weakness, balance difficulty History of Current Condition Long history of medical issues , most recently had been doing cardiac rehab, was able to walk 2-3 laps at [employer]. Came back from cruise and had Covid, hasn't recovered her physical ability since then; much slower pace, less distance, more fatigued. Energy level hasn't recovered. Has been to the ER several times for hernia, doctor reluctant to do surgery due to difficulty of recovery. Also having some left knee pain x 6 months. Breathing issues better with change in medication. Balance more impaired, no fall but feels less steady, skuffs feet, uses 4WW primarily, short distance with cane and holding onto someone. Numbness and tingling in hands are new. Stopped Prednisone due to weight gain and not feeling benefit. Prior Treatments and Tests left knee x-ray: bone on bone medial knee, seeing Dr. Gill in June. Seeing a new neurologist in [place] at [facility]. EMG at [facility]. showed severe peripheral neuropathy. Doing a new EMG next years with Dr. Jolley. Treatment Goals Patient/Caregiver Goals improve strength, balance, activity tolerance, walk park 2x and better pace. PT-OP-C Subjective Start: 04/03/22 09:11 Freq: Status: Active Protocol: Document 04/07/22 08:13 SAK (Rec: 04/07/22 09:03 [facility] [id number]) OP-PT Subjective Patient Comments Patient Comments Thursday walked 3 blocks and it about killed me. Exhausted and knee hurt. Feeling depressed, doesn't feel like she has any emotional reserves. Seeing a therapist, taking medications. PT-OP-D Balance Start: 04/03/22 09:11 Freq: Status: Active Protocol: Document 04/03/22 12:58 SAK (Rec: 04/03/22 14:28 SAK [id number]) Sheth Balance Assessment Evaluation Sitting to Standing Ability Independent w/out Hands Unsupported Stance Safely- 2 minutes Sitting Unsupported, Feet on Floor Safely- 2 minutes Standing to Sitting Ability Assist, Use Legs on Chair Transfer Ability Safely, Hand Use Unsupported Stance- Eyes Closed Safely, With Eyes Open Unsupported Stance- Eyes Open Supervision to maintain Reaching Forward Standing Safely, 5 inches Pick- Up Object From Floor Requires Assistance Look Behind Shoulder - Standing Supervision w/Turning Turning 360 Degrees Turns , < 4 secs Unsupported Stance, Alternating Feet on (I)- 8 Steps in > 20 secs Stair Unsupported Tandem Stance Balance Lost- Step/Stand Unilateral Leg Stance Lifts Leg/Holds > 3 secs Total Score Sheth Total Score (out of 56 points) 33 Tinetti Balance Assessment Sitting Balance Sitting Balance Steady, safe Arising from Chair Ability to Arise Able, uses arms to help Standing Balance Immediate Standing Balance Steady with support Standing Balance Steady, wide stance Nudged Response Staggers, catches self Standing with Eyes Closed Unsteady Turning Step Pattern Turning 360 Degrees Continuous steps Sitting Down Sitting Down Uses arms or unsteady Gait and Step Initiation of Gait Hesitancy, mult. attempts Right Foot Step Length Does not pass stance ft. Right Foot Step Height Does not clear floor Left Foot Step Length Does not pass stance foot Left Foot Step Height Does not clear floor Step Description Step Symmetry Step length appears equal Step Continuity Steps appear continuous Gait Description Path Description Straight Trunk Description Marked sway or uses aide Walking Stance Heels apart Scoring and Interpretation Tinetti Composite Score (points) 11 PT-OP-E Functional Tests Start: 04/03/22 09:11 Freq: Status: Active Protocol: Document 04/03/22 12:58 [facility] (Rec: 04/03/22 14:28 [facility] [id number]) Functional Tests 2 Minute Walk Test Distance 232 ft Device Used 4WW Five Times Sit to Stand Test Comments deferred due to fatigue Timed Up and Go (TUG) Comments deferred due to fatigue PT-OP-G Mobility & Gait Start: 04/03/22 09:11 Freq: Status: Active Protocol: Document 04/03/22 12:58 [facility] (Rec: 04/03/22 14:28 [facility] [id number]) OP Gait Assessment Gait Gait Assistance Required: Independent Distance (Feet) 232 Assistive Devices Assistive Device 4 Wheeled Walker Gait Deviations General Gait Pattern Decreased Stride Length, Decreased Feet Clearance,Wide Based Gait Factors Limiting Gait Function Factors Limiting Gait Function Decreased Activity Tolerance PT-OP-H Neuro Start: 04/03/22 09:11 Freq: Status: Active Protocol: Document 04/03/22 12:58 [facility] (Rec: 04/03/22 14:28 [facility] [id number]) Sensation Evaluation Gross Sensation Gross Sensation Left UE Impaired,Right UE Impaired,Left LE Impaired, Right LE Impaired Sensation Description Paresthesia PT-OP-J Posture/Palpation/Skin Start: 04/03/22 09:11 Freq: Status: Active Protocol: Document 04/03/22 12:58 [facility] (Rec: 04/03/22 14:28 [facility] [id number]) Posture Evaluation Position Standing Head/C-Spine Posture Forward Head T-Spine Posture Increased Kyphosis L-Spine Posture Increased Lordosis Shoulder Posture (L) Rounded,(R) Rounded Scapula Posture (L) Protracted,(R) Protracted Arm Posture (L) Internally Rotated,(R) Internally Rotated Pelvis Posture Anteriorly Tilted Knee Posture (L) Genu Varus Patellar Posture (L) Neutral Palpation Assessment Location left knee Palpation Location medial. Palpation Findings Tenderness PT-OP-M Strength Start: 04/03/22 09:11 Freq: Status: Active Protocol: Document 04/03/22 12:58 [facility] (Rec: 04/03/22 14:28 [facility] [id number]) Shoulder Strength Shoulder Manual Muscle Testing girma Comments functionally difficulty with lifting overhead due to weakness, no MMT due to fatigue after other testing Elbow/Forearm Strength Elbow and Forearm Manual Muscle Testing girma Comments difficulty lifting, not formally tested due to fatigue from other testing PT-OP-Q Treatments Start: 04/03/22 09:11 Freq: Status: Active Protocol: Document 04/07/22 08:13 [facility] (Rec: 04/07/22 09:03 SAK [id number]) Gym Equipment Shuttle Balance 2 Details chains red Reps/Duration 4 min Comments bal and wt shift fwd/bck, side to side loses balance backward, requires mod assist for balance Therapeutic Exercises Sitting Exercises heel raise Reps/Minutes 5x girma pec stretch Reps/Minutes 3x5 deep breathing Reps/Minutes 3x Comments cues for longer exhale, fully expanding all portions of lungs pendulum Reps/Minutes 3x 5 girma Standing Exercises posture press Reps/Minutes 2x5 Therapeutic Activity Therapeutic Activity sit to stand Reps/Minutes 3x Comments cues for neutral LE alignment (tendency to ER left LE), falling back into chair Gait Training Gait Activity 1 Description level Device Used 4WW Level of Assistance verbal cues Treatment Focus no hyperextension left Manual Therapy Treatment Taping left knee Treatment Focus pain management Type of Tape kinesiotape Skin Inspection intact Comments I strip: tibial tuberosity across medial joint line proximally PT-OP-T Assessment and Plan Start: 04/03/22 09:11 Freq: Status: Active Protocol: Document 04/07/22 08:13 [facility] (Rec: 04/07/22 09:03 [facility] [id number]) Physical Therapy Assessment Goals Four Impairment general UE weakness Impairment unable to reach overhead for purposes of performing ADL's Longterm Goal (LTG) patient will improve her strength sufficient to allow her to reach overhead for purposes of ADL's LTG Duration 07/02/22 left knee pain Impairment left knee pain 4/10 Impairment limits activity Short Term Goal (STG) decrease pain to no greater than 2/10 STG Duration 06/01/22 Longterm Goal (LTG) decrease pain to no greater than 1/10 with all usual activities LTG Duration 07/02/22 Three Impairment balance dysfunction Impairment Sheth Balance score 33/56 indicating high fall risk activities-specific balance confidence (ABC) scale score 56% Short Term Goal (STG) Improve Sheth balance score to at least 40/56 as measure of improved safety with mobility Improve ABC score to at least 65% as measure of improved confidence in balance STG Duration 05/15/22 Longterm Goal (LTG) Patient will improve Sheth Balance score to at least 48/ 56 as measure of improved safety and decreased risk of falls Improve ABC score to at least 75% as measure of improved confidence in balance LTG Duration 07/02/22 One Impairment activity tolerance Impairment 2 min walk test 232 ft, unable to do 6 min walk test due to fatigue Short Term Goal (STG) Improve 2 min walk test to 350 ft as measure of improved activity tolerance STG Duration 05/15/22 Longterm Goal (LTG) Patient will be able to tolerate 6 min walk test without rest break as measure of improved activity tolerance . LTG Duration 07/02/22 Two Impairment fatigued after 2 min ambulation, Trendelenberg gait Assessment Summary Assessment Patient activity tolerance very low, expressing depression but states not suicidal. Sees counselor. Demonstrated good understanding of importance of neutral alignment with sit to stand, safety with not keeping hands on walker, importance of deep breathing. Loses balances easily backward with shuttle balance Physical Therapy Plan Frequency and Duration Frequency of Treatment 2x/Week Duration of treatment (weeks) 12 Plan of Care Start Date 04/03/22 Plan of Care End Date 07/02/22 Therapeutic Interventions Therapeutic Interventions Balance Training,Gait Training ,Home Exercise Program,Manual Therapy,Neuromuscular Re- education,Patient/Caregiver Education,Self-Care/Home Management,Soft Tissue Mobilization,Taping, Therapeutic Activities, Therapeutic Exercises Modalities Cold Pack/Ice Massage,Electric Stimulation,Hot Packs, Infrared Therapy,Ultrasound Next Visit Focus/Plan Next Note Type Treatment Note Next Visit Plan Continue gentle PT for strengthening, balance, gait training, activity tolerance
--- NOTE | 2022-04-16 09:02 | PT.OTN ---
Current Diagnoses Polyneuropathy in diseases classified elsewhere (04/16/22) Muscle weakness (generalized) (04/16/22) Other abnormalities of gait and mobility (04/16/22) Other symptoms and signs involving the nervous system (04/16/22) Chronic fatigue, unspecified (04/16/22) History of falling (04/16/22) Physical Therapy Treatment Note PT-OP-A Visit Information Start: 04/03/22 09:11 Freq: Status: Active Protocol: Document 04/16/22 08:17 SAK (Rec: 04/16/22 09:02 SAK [id number]) Out-Patient Physical Therapy Visit Information Visit Information Visit Type Treatment Note Visit Start Time 08:16 Visit Stop Time 08:58 Total Visit Minutes 43 Visit Number 3 Evaluation Information Evaluation Date 04/03/22 Precautions Precautions Sjogren's, cardiac history, fatigues easily, PT-OP-B Current Condition Start: 04/03/22 09:11 Freq: Status: Active Protocol: Document 04/16/22 08:17 SAK (Rec: 04/16/22 09:02 SAK [id number]) Current Condition Treatment Goals Patient/Caregiver Goals improve strength, balance, activity tolerance, walk park 2x and better pace. PT-OP-C Subjective Start: 04/03/22 09:11 Freq: Status: Active Protocol: Document 04/16/22 08:17 SAK (Rec: 04/16/22 09:02 SAK [id number]) OP-PT Subjective Patient Comments Patient Comments States morning used to be the best part of her day, doesn't have a good time of day anymore. Sleeping well. Feels achy in am, energy level very low, can't get legs to work the way she wants to. Has appt with sleep apnea doctor soon. Fatigue is debilitating. Saw PCP, cried in her office, has been put on low dose anti-depressant. 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 Has started taking Alleve in the afternoon. 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 PT-OP-D Balance Start: 04/03/22 09:11 Freq: Status: Active Protocol: Document 04/03/22 12:58 SAK (Rec: 04/03/22 14:28 SAK [id number]) Sheth Balance Assessment Evaluation Sitting to Standing Ability Independent w/out Hands Unsupported Stance Safely- 2 minutes Sitting Unsupported, Feet on Floor Safely- 2 minutes Standing to Sitting Ability Assist, Use Legs on Chair Transfer Ability Safely, Hand Use Unsupported Stance- Eyes Closed Safely, With Eyes Open Unsupported Stance- Eyes Open Supervision to maintain Reaching Forward Standing Safely, 5 inches Pick- Up Object From Floor Requires Assistance Look Behind Shoulder - Standing Supervision w/Turning Turning 360 Degrees Turns , < 4 secs Unsupported Stance, Alternating Feet on (I)- 8 Steps in > 20 secs Stair Unsupported Tandem Stance Balance Lost- Step/Stand Unilateral Leg Stance Lifts Leg/Holds > 3 secs Total Score Sheth Total Score (out of 56 points) 33 Tinetti Balance Assessment Sitting Balance Sitting Balance Steady, safe Arising from Chair Ability to Arise Able, uses arms to help Standing Balance Immediate Standing Balance Steady with support Standing Balance Steady, wide stance Nudged Response Staggers, catches self Standing with Eyes Closed Unsteady Turning Step Pattern Turning 360 Degrees Continuous steps Sitting Down Sitting Down Uses arms or unsteady Gait and Step Initiation of Gait Hesitancy, mult. attempts Right Foot Step Length Does not pass stance ft. Right Foot Step Height Does not clear floor Left Foot Step Length Does not pass stance foot Left Foot Step Height Does not clear floor Step Description Step Symmetry Step length appears equal Step Continuity Steps appear continuous Gait Description Path Description Straight Trunk Description Marked sway or uses aide Walking Stance Heels apart Scoring and Interpretation Tinetti Composite Score (points) 11 PT-OP-E Functional Tests Start: 04/03/22 09:11 Freq: Status: Active Protocol: Document 04/03/22 12:58 [facility] (Rec: 04/03/22 14:28 [facility] [id number]) Functional Tests 2 Minute Walk Test Distance 232 ft Device Used 4WW Five Times Sit to Stand Test Comments deferred due to fatigue Timed Up and Go (TUG) Comments deferred due to fatigue PT-OP-G Mobility & Gait Start: 04/03/22 09:11 Freq: Status: Active Protocol: Document 04/03/22 12:58 [facility] (Rec: 04/03/22 14:28 [facility] [id number]) OP Gait Assessment Gait Gait Assistance Required: Independent Distance (Feet) 232 Assistive Devices Assistive Device 4 Wheeled Walker Gait Deviations General Gait Pattern Decreased Stride Length, Decreased Feet Clearance,Wide Based Gait Factors Limiting Gait Function Factors Limiting Gait Function Decreased Activity Tolerance PT-OP-H Neuro Start: 04/03/22 09:11 Freq: Status: Active Protocol: Document 04/03/22 12:58 [facility] (Rec: 04/03/22 14:28 [facility] [id number]) Sensation Evaluation Gross Sensation Gross Sensation Left UE Impaired,Right UE Impaired,Left LE Impaired, Right LE Impaired Sensation Description Paresthesia PT-OP-J Posture/Palpation/Skin Start: 04/03/22 09:11 Freq: Status: Active Protocol: Document 04/03/22 12:58 [facility] (Rec: 04/03/22 14:28 [facility] [id number]) Posture Evaluation Position Standing Head/C-Spine Posture Forward Head T-Spine Posture Increased Kyphosis L-Spine Posture Increased Lordosis Shoulder Posture (L) Rounded,(R) Rounded Scapula Posture (L) Protracted,(R) Protracted Arm Posture (L) Internally Rotated,(R) Internally Rotated Pelvis Posture Anteriorly Tilted Knee Posture (L) Genu Varus Patellar Posture (L) Neutral Palpation Assessment Location left knee Palpation Location medial. Palpation Findings Tenderness PT-OP-M Strength Start: 04/03/22 09:11 Freq: Status: Active Protocol: Document 04/03/22 12:58 [facility] (Rec: 04/03/22 14:28 [facility] [id number]) Shoulder Strength Shoulder Manual Muscle Testing girma Comments functionally difficulty with lifting overhead due to weakness, no MMT due to fatigue after other testing Elbow/Forearm Strength Elbow and Forearm Manual Muscle Testing girma Comments difficulty lifting, not formally tested due to fatigue from other testing PT-OP-Q Treatments Start: 04/03/22 09:11 Freq: Status: Active Protocol: Document 04/16/22 08:17 [facility] (Rec: 04/16/22 09:02 [facility] [id number]) Gym Equipment Shuttle Balance 2 Details chains red, green Reps/Duration 10 min Comments bal and wt shift fwd/bck, side to side, balloon volleyball; rest in between each activity. Therapeutic Exercises Sitting Exercises pec stretch Reps/Minutes 3x5 deep breathing Reps/Minutes 3x Comments cues for longer exhale, fully expanding all portions of lungs Standing Exercises interval walking Standing Exercise Name 2nd gear Comments 46 ft x 2 with 3 min rest break Gait Training Gait Activity 1 Description level Device Used 4WW Level of Assistance verbal cues Treatment Focus no hyperextension left Self-Care/Home Management Treatment Education Patient Education Fall Risk,Home Exercise Program Other Education HIIT benefits, try for home ie sit to stands, short quick day PT-OP-T Assessment and Plan Start: 04/03/22 09:11 Freq: Status: Active Protocol: Document 04/16/22 08:17 [facility] (Rec: 04/16/22 09:02 [facility] [id number]) Physical Therapy Assessment Impairments Impairments Activity Tolerance,Balance, Gait,Pain,Strength Goals Four Impairment general UE weakness Impairment unable to reach overhead for purposes of performing ADL's Halfway Goal (LTG) patient will improve her strength sufficient to allow her to reach overhead for purposes of ADL's LTG Duration 07/02/22 left knee pain Impairment left knee pain 4/10 Impairment limits activity Short Term Goal (STG) decrease pain to no greater than 2/10 STG Duration 06/01/22 Halfway Goal (LTG) decrease pain to no greater than 1/10 with all usual activities LTG Duration 07/02/22 Three Impairment balance dysfunction Impairment Sheth Balance score 33/56 indicating high fall risk activities-specific balance confidence (ABC) scale score 56% Short Term Goal (STG) Improve Sheth balance score to at least 40/56 as measure of improved safety with mobility Improve ABC score to at least 65% as measure of improved confidence in balance STG Duration 05/15/22 Hand [place]eter Goal (LTG) Patient will improve Sheth Balance score to at least 48/ 56 as measure of improved safety and decreased risk of falls Improve ABC score to at least 75% as measure of improved confidence in balance LTG Duration 07/02/22 One Impairment activity tolerance Impairment 2 min walk test 232 ft, unable to do 6 min walk test due to fatigue Short Term Goal (STG) Improve 2 min walk test to 350 ft as measure of improved activity tolerance STG Duration 05/15/22 Halfway Goal (LTG) Patient will be able to tolerate 6 min walk test without rest break as measure of improved activity tolerance . LTG Duration 07/02/22 Two Impairment fatigued after 2 min ambulation, Trendelenberg gait Assessment Summary Assessment Discouraged regarding low activity tolerance.Discussion of HIIT with trial today walking short distance higher intensity. Improved balance on shuttle balance machine Physical Therapy Plan Frequency and Duration Frequency of Treatment 2x/Week Duration of treatment (weeks) 12 Plan of Care Start Date 04/03/22 Plan of Care End Date 07/02/22 Therapeutic Interventions Therapeutic Interventions Balance Training,Gait Training ,Home Exercise Program,Manual Therapy,Neuromuscular Re- education,Patient/Caregiver Education,Self-Care/Home Management,Soft Tissue Mobilization,Taping, Therapeutic Activities, Therapeutic Exercises Modalities Cold Pack/Ice Massage,Electric Stimulation,Hot Packs, Infrared Therapy,Ultrasound Next Visit Focus/Plan Next Note Type Treatment Note Next Visit Plan Continue gentle PT for strengthening, balance, gait training, activity tolerance. Chains yellow or blue for balloon volleyhball.
--- NOTE | 2022-04-21 09:04 | PT.OTN ---
Current Diagnoses Polyneuropathy in diseases classified elsewhere (04/21/22) Muscle weakness (generalized) (04/21/22) Other abnormalities of gait and mobility (04/21/22) Other symptoms and signs involving the nervous system (04/21/22) Chronic fatigue, unspecified (04/21/22) History of falling (04/21/22) Physical Therapy Treatment Note PT-OP-A Visit Information Start: 04/03/22 09:11 Freq: Status: Active Protocol: Document 04/21/22 08:13 SAK (Rec: 04/21/22 09:04 SAK [id number]) Out-Patient Physical Therapy Visit Information Visit Information Visit Type Treatment Note Visit Start Time 08:15 Visit Stop Time 09:00 Total Visit Minutes 45 Visit Number 4 Evaluation Information Evaluation Date 04/03/22 Precautions Precautions Sjogren's, cardiac history, fatigues easily, PT-OP-B Current Condition Start: 04/03/22 09:11 Freq: Status: Active Protocol: Document 04/21/22 08:13 SAK (Rec: 04/21/22 09:04 SAK [id number]) Current Condition History of Current Condition Onset Date October 30 Current Complaints weakness, balance difficulty History of Current Condition Long history of medical issues , most recently had been doing cardiac rehab, was able to walk 2-3 laps at [facility]. Came back from cruise and had Covid, hasn't recovered her physical ability since then; much slower pace, less distance, more fatigued. Energy level hasn't recovered. Has been to the ER several times for hernia, doctor reluctant to do surgery due to difficulty of recovery. Also having some left knee pain x 6 months. Breathing issues better with change in medication. Balance more impaired, no fall but feels less steady, skuffs feet, uses 4WW primarily, short distance with cane and holding onto someone. Numbness and tingling in hands are new. Stopped Prednisone due to weight gain and not feeling benefit. Prior Treatments and Tests left knee x-ray: bone on bone medial knee, seeing Dr. Gill in June. Seeing a new neurologist in [place] Burt Jolley at [facility]. EMG at [facility]. showed severe peripheral neuropathy. Doing a new EMG next years with Dr. Jolley. Treatment Goals Patient/Caregiver Goals improve strength, balance, activity tolerance, walk park 2x and better pace. PT-OP-C Subjective Start: 04/03/22 09:11 Freq: Status: Active Protocol: Document 04/21/22 08:13 [facility] (Rec: 04/21/22 09:04 [facility] [id number]) OP-PT Subjective Patient Comments Patient Comments Walked in [place] Thursday, sat and rested frequently, was in store 1 1/2 hours. Didn't feel well over the weekend. States doesn't feel off balance, legs fee weak. Thinks Pete Mae is potential diagnosis wants to ask neurologist about testing. PT-OP-D Balance Start: 04/03/22 09:11 Freq: Status: Active Protocol: Document 04/03/22 12:58 [facility] (Rec: 04/03/22 14:28 [facility] [id number]) Sheth Balance Assessment Evaluation Sitting to Standing Ability Independent w/out Hands Unsupported Stance Safely- 2 minutes Sitting Unsupported, Feet on Floor Safely- 2 minutes Standing to Sitting Ability Assist, Use Legs on Chair Transfer Ability Safely, Hand Use Unsupported Stance- Eyes Closed Safely, With Eyes Open Unsupported Stance- Eyes Open Supervision to maintain Reaching Forward Standing Safely, 5 inches Pick- Up Object From Floor Requires Assistance Look Behind Shoulder - Standing Supervision w/Turning Turning 360 Degrees Turns , < 4 secs Unsupported Stance, Alternating Feet on (I)- 8 Steps in > 20 secs Stair Unsupported Tandem Stance Balance Lost- Step/Stand Unilateral Leg Stance Lifts Leg/Holds > 3 secs Total Score Sheth Total Score (out of 56 points) 33 Tinetti Balance Assessment Sitting Balance Sitting Balance Steady, safe Arising from Chair Ability to Arise Able, uses arms to help Standing Balance Immediate Standing Balance Steady with support Standing Balance Steady, wide stance Nudged Response Staggers, catches self Standing with Eyes Closed Unsteady Turning Step Pattern Turning 360 Degrees Continuous steps Sitting Down Sitting Down Uses arms or unsteady Gait and Step Initiation of Gait Hesitancy, mult. attempts Right Foot Step Length Does not pass stance ft. Right Foot Step Height Does not clear floor Left Foot Step Length Does not pass stance foot Left Foot Step Height Does not clear floor Step Description Step Symmetry Step length appears equal Step Continuity Steps appear continuous Gait Description Path Description Straight Trunk Description Marked sway or uses aide Walking Stance Heels apart Scoring and Interpretation Tinetti Composite Score (points) 11 PT-OP-E Functional Tests Start: 04/03/22 09:11 Freq: Status: Active Protocol: Document 04/03/22 12:58 [facility] (Rec: 04/03/22 14:28 [facility] [id number]) Functional Tests 2 Minute Walk Test Distance 232 ft Device Used 4WW Five Times Sit to Stand Test Comments deferred due to fatigue Timed Up and Go (TUG) Comments deferred due to fatigue PT-OP-G Mobility & Gait Start: 04/03/22 09:11 Freq: Status: Active Protocol: Document 04/03/22 12:58 [facility] (Rec: 04/03/22 14:28 [facility] [id number]) OP Gait Assessment Gait Gait Assistance Required: Independent Distance (Feet) 232 Assistive Devices Assistive Device 4 Wheeled Walker Gait Deviations General Gait Pattern Decreased Stride Length, Decreased Feet Clearance,Wide Based Gait Factors Limiting Gait Function Factors Limiting Gait Function Decreased Activity Tolerance PT-OP-H Neuro Start: 04/03/22 09:11 Freq: Status: Active Protocol: Document 04/03/22 12:58 [facility] (Rec: 04/03/22 14:28 [facility] [id number]) Sensation Evaluation Gross Sensation Gross Sensation Left UE Impaired,Right UE Impaired,Left LE Impaired, Right LE Impaired Sensation Description Paresthesia PT-OP-J Posture/Palpation/Skin Start: 04/03/22 09:11 Freq: Status: Active Protocol: Document 04/03/22 12:58 [facility] (Rec: 04/03/22 14:28 [facility] [id number]) Posture Evaluation Position Standing Head/C-Spine Posture Forward Head T-Spine Posture Increased Kyphosis L-Spine Posture Increased Lordosis Shoulder Posture (L) Rounded,(R) Rounded Scapula Posture (L) Protracted,(R) Protracted Arm Posture (L) Internally Rotated,(R) Internally Rotated Pelvis Posture Anteriorly Tilted Knee Posture (L) Genu Varus Patellar Posture (L) Neutral Palpation Assessment Location left knee Palpation Location medial. Palpation Findings Tenderness PT-OP-M Strength Start: 04/03/22 09:11 Freq: Status: Active Protocol: Document 04/03/22 12:58 [facility] (Rec: 04/03/22 14:28 [facility] [id number]) Shoulder Strength Shoulder Manual Muscle Testing girma Comments functionally difficulty with lifting overhead due to weakness, no MMT due to fatigue after other testing Elbow/Forearm Strength Elbow and Forearm Manual Muscle Testing girma Comments difficulty lifting, not formally tested due to fatigue from other testing PT-OP-Q Treatments Start: 04/03/22 09:11 Freq: Status: Active Protocol: Document 04/21/22 08:13 [facility] (Rec: 04/21/22 09:04 [facility] [id number]) Cardio Equipment Recumbent Bicycle Duration (Minutes) 3 Resistance 1 Seat Position 2 Gym Equipment Shuttle Balance 2 Details chains blue Reps/Duration 2 min Comments balloon volleyball Therapeutic Exercises Sitting Exercises HS stretch Side bilateral Reps/Minutes 1x 30 pec stretch Reps/Minutes 3x5 Standing Exercises quad stretch Equipment Used chair Gait Training Gait Activity 1 Description level Device Used 4WW Level of Assistance verbal cues Treatment Focus no hyperextension left Comments 45 ft x 2 faster (2nd gear) Manual Therapy Treatment Taping left knee Treatment Focus pain management Type of Tape kinesiotape Skin Inspection intact Comments 2 I strips; sup and inf surrounding patella PT-OP-T Assessment and Plan Start: 04/03/22 09:11 Freq: Status: Active Protocol: Document 04/21/22 08:13 [facility] (Rec: 04/21/22 09:04 [facility] [id number]) Physical Therapy Assessment Goals Four Impairment general UE weakness Impairment unable to reach overhead for purposes of performing ADL's [place] Goal (LTG) patient will improve her strength sufficient to allow her to reach overhead for purposes of ADL's LTG Duration 07/02/22 left knee pain Impairment left knee pain 4/10 Impairment limits activity Short Term Goal (STG) decrease pain to no greater than 2/10 STG Duration 06/01/22 [place] Goal (LTG) decrease pain to no greater than 1/10 with all usual activities LTG Duration 07/02/22 Three Impairment balance dysfunction Impairment Sheth Balance score 33/56 indicating high fall risk activities-specific balance confidence (ABC) scale score 56% Short Term Goal (STG) Improve Sheth balance score to at least 40/56 as measure of improved safety with mobility Improve ABC score to at least 65% as measure of improved confidence in balance STG Duration 05/15/22 Halfway Goal (LTG) Patient will improve Sheth Balance score to at least 48/ 56 as measure of improved safety and decreased risk of falls Improve ABC score to at least 75% as measure of improved confidence in balance LTG Duration 07/02/22 One Impairment activity tolerance Impairment 2 min walk test 232 ft, unable to do 6 min walk test due to fatigue Short Term Goal (STG) Improve 2 min walk test to 350 ft as measure of improved activity tolerance STG Duration 05/15/22 [place] Goal (LTG) Patient will be able to tolerate 6 min walk test without rest break as measure of improved activity tolerance . LTG Duration 07/02/22 Two Impairment fatigued after 2 min ambulation, Trendelenberg gait Assessment Summary Assessment Able to je 3 min on recumbant ex bike, 2 bouts of faster walking. Frequent rest breaks during sesion Physical Therapy Plan Frequency and Duration Frequency of Treatment 2x/Week Duration of treatment (weeks) 12 Plan of Care Start Date 04/03/22 Plan of Care End Date 07/02/22 Therapeutic Interventions Therapeutic Interventions Balance Training,Gait Training ,Home Exercise Program,Manual Therapy,Neuromuscular Re- education,Patient/Caregiver Education,Self-Care/Home Management,Soft Tissue Mobilization,Taping, Therapeutic Activities, Therapeutic Exercises Modalities Cold Pack/Ice Massage,Electric Stimulation,Hot Packs, Infrared Therapy,Ultrasound Next Visit Focus/Plan Next Note Type Treatment Note Next Visit Plan Continue gentle PT for strengthening, balance, gait training, activity tolerance.
--- NOTE | 2022-05-01 16:36 | PT.OTN ---
Current Diagnoses Polyneuropathy in diseases classified elsewhere (05/01/22) Muscle weakness (generalized) (05/01/22) Other abnormalities of gait and mobility (05/01/22) Other symptoms and signs involving the nervous system (05/01/22) Chronic fatigue, unspecified (05/01/22) History of falling (05/01/22) Physical Therapy Treatment Note PT-OP-A Visit Information Start: 04/03/22 09:11 Freq: Status: Active Protocol: Document 05/01/22 13:47 [facility] (Rec: 05/01/22 14:31 [facility] [id number]) Out-Patient Physical Therapy Visit Information Visit Information Visit Type Treatment Note Visit Start Time 13:47 Visit Stop Time 14:30 Total Visit Minutes 43 Visit Number 5 Evaluation Information Evaluation Date 04/03/22 Precautions Precautions Sjogren's, cardiac history, fatigues easily, PT-OP-B Current Condition Start: 04/03/22 09:11 Freq: Status: Active Protocol: Document 05/01/22 13:47 SAK (Rec: 05/01/22 14:31 [facility] [id number]) Current Condition History of Current Condition Onset Date October 30 Current Complaints weakness, balance difficulty History of Current Condition Long history of medical issues , most recently had been doing cardiac rehab, was able to walk 2-3 laps at [facility] [employer]. Came back from cruise and had Covid, hasn't recovered her physical ability since then; much slower pace, less distance, more fatigued. Energy level hasn't recovered. Has been to the ER several times for hernia, doctor reluctant to do surgery due to difficulty of recovery. Also having some left knee pain x 6 months. Breathing issues better with change in medication. Balance more impaired, no fall but feels less steady, skuffs feet, uses 4WW primarily, short distance with cane and holding onto someone. Numbness and tingling in hands are new. Stopped Prednisone due to weight gain and not feeling benefit. Prior Treatments and Tests left knee x-ray: bone on bone medial knee, seeing Dr. Gill in June. Seeing a new neurologist in [place] at [facility]. EMG at [facility]. showed severe peripheral neuropathy. Doing a new EMG next years with Dr. Jolley. Treatment Goals Patient/Caregiver Goals improve strength, balance, activity tolerance, walk park 2x and better pace. PT-OP-C Subjective Start: 04/03/22 09:11 Freq: Status: Active Protocol: Document 05/01/22 13:47 [facility] (Rec: 05/01/22 14:31 [facility] [id number]) OP-PT Subjective Patient Comments Patient Comments Started with personal chef madelyn Freeman initially, couldn 't hardly move, now cutting down time to 15 min. Has done some of the faster walking, has walked a little more at [facility] and at [employer]. PT-OP-D Balance Start: 04/03/22 09:11 Freq: Status: Active Protocol: Document 04/03/22 12:58 [facility] (Rec: 04/03/22 14:28 [facility] [id number]) Sheth Balance Assessment Evaluation Sitting to Standing Ability Independent w/out Hands Unsupported Stance Safely- 2 minutes Sitting Unsupported, Feet on Floor Safely- 2 minutes Standing to Sitting Ability Assist, Use Legs on Chair Transfer Ability Safely, Hand Use Unsupported Stance- Eyes Closed Safely, With Eyes Open Unsupported Stance- Eyes Open Supervision to maintain Reaching Forward Standing Safely, 5 inches Pick- Up Object From Floor Requires Assistance Look Behind Shoulder - Standing Supervision w/Turning Turning 360 Degrees Turns , < 4 secs Unsupported Stance, Alternating Feet on (I)- 8 Steps in > 20 secs Stair Unsupported Tandem Stance Balance Lost- Step/Stand Unilateral Leg Stance Lifts Leg/Holds > 3 secs Total Score Sheth Total Score (out of 56 points) 33 Tinetti Balance Assessment Sitting Balance Sitting Balance Steady, safe Arising from Chair Ability to Arise Able, uses arms to help Standing Balance Immediate Standing Balance Steady with support Standing Balance Steady, wide stance Nudged Response Staggers, catches self Standing with Eyes Closed Unsteady Turning Step Pattern Turning 360 Degrees Continuous steps Sitting Down Sitting Down Uses arms or unsteady Gait and Step Initiation of Gait Hesitancy, mult. attempts Right Foot Step Length Does not pass stance ft. Right Foot Step Height Does not clear floor Left Foot Step Length Does not pass stance foot Left Foot Step Height Does not clear floor Step Description Step Symmetry Step length appears equal Step Continuity Steps appear continuous Gait Description Path Description Straight Trunk Description Marked sway or uses aide Walking Stance Heels apart Scoring and Interpretation Tinetti Composite Score (points) 11 PT-OP-E Functional Tests Start: 04/03/22 09:11 Freq: Status: Active Protocol: Document 04/03/22 12:58 [facility] (Rec: 04/03/22 14:28 [facility] [id number]) Functional Tests 2 Minute Walk Test Distance 232 ft Device Used 4WW Five Times Sit to Stand Test Comments deferred due to fatigue Timed Up and Go (TUG) Comments deferred due to fatigue PT-OP-G Mobility & Gait Start: 04/03/22 09:11 Freq: Status: Active Protocol: Document 04/03/22 12:58 [facility] (Rec: 04/03/22 14:28 [facility] [id number]) OP Gait Assessment Gait Gait Assistance Required: Independent Distance (Feet) 232 Assistive Devices Assistive Device 4 Wheeled Walker Gait Deviations General Gait Pattern Decreased Stride Length, Decreased Feet Clearance,Wide Based Gait Factors Limiting Gait Function Factors Limiting Gait Function Decreased Activity Tolerance PT-OP-H Neuro Start: 04/03/22 09:11 Freq: Status: Active Protocol: Document 04/03/22 12:58 [facility] (Rec: 04/03/22 14:28 [facility] [id number]) Sensation Evaluation Gross Sensation Gross Sensation Left UE Impaired,Right UE Impaired,Left LE Impaired, Right LE Impaired Sensation Description Paresthesia PT-OP-J Posture/Palpation/Skin Start: 04/03/22 09:11 Freq: Status: Active Protocol: Document 04/03/22 12:58 [facility] (Rec: 04/03/22 14:28 [facility] [id number]) Posture Evaluation Position Standing Head/C-Spine Posture Forward Head T-Spine Posture Increased Kyphosis L-Spine Posture Increased Lordosis Shoulder Posture (L) Rounded,(R) Rounded Scapula Posture (L) Protracted,(R) Protracted Arm Posture (L) Internally Rotated,(R) Internally Rotated Pelvis Posture Anteriorly Tilted Knee Posture (L) Genu Varus Patellar Posture (L) Neutral Palpation Assessment Location left knee Palpation Location medial. Palpation Findings Tenderness PT-OP-M Strength Start: 04/03/22 09:11 Freq: Status: Active Protocol: Document 04/03/22 12:58 [facility] (Rec: 04/03/22 14:28 [facility] [id number]) Shoulder Strength Shoulder Manual Muscle Testing girma Comments functionally difficulty with lifting overhead due to weakness, no MMT due to fatigue after other testing Elbow/Forearm Strength Elbow and Forearm Manual Muscle Testing girma Comments difficulty lifting, not formally tested due to fatigue from other testing PT-OP-Q Treatments Start: 04/03/22 09:11 Freq: Status: Active Protocol: Document 05/01/22 13:47 [facility] (Rec: 05/01/22 14:31 [facility] [id number]) Therapeutic Exercises Sitting Exercises overhead reach Reps/Minutes 4x figure 4 Reps/Minutes 2x30 pec stretch Reps/Minutes 3x5 deep breathing Reps/Minutes 3x Comments cues for longer exhale, fully expanding all portions of lungs Gait Training Gait Activity no device Description forward, sideways Distance/Duration 10' x 2 each Treatment Focus hip stability 1 Description level Device Used 4WW Level of Assistance verbal cues Surface firm Distance/Duration 30, 30, 20 Treatment Focus hip stability Manual Therapy Treatment Taping left knee Treatment Focus pain management Type of Tape kinesiotape Skin Inspection intact Comments I strip from tibial tuberosity across medial joint line Self-Care/Home Management Treatment Education Patient Education Home Exercise Program,Posture PT-OP-T Assessment and Plan Start: 04/03/22 09:11 Freq: Status: Active Protocol: Document 05/01/22 13:47 [facility] (Rec: 05/01/22 14:31 [facility] [id number]) Physical Therapy Assessment Goals Four Impairment general UE weakness Impairment unable to reach overhead for purposes of performing ADL's Halfway Goal (LTG) patient will improve her strength sufficient to allow her to reach overhead for purposes of ADL's LTG Duration 07/02/22 left knee pain Impairment left knee pain 4/10 Impairment limits activity Short Term Goal (STG) decrease pain to no greater than 2/10 STG Duration 06/01/22 Halfway Goal (LTG) decrease pain to no greater than 1/10 with all usual activities LTG Duration 07/02/22 Three Impairment balance dysfunction Impairment Sheth Balance score 33/56 indicating high fall risk activities-specific balance confidence (ABC) scale score 56% Short Term Goal (STG) Improve Shteh balance score to at least 40/56 as measure of improved safety with mobility Improve ABC score to at least 65% as measure of improved confidence in balance STG Duration 05/15/22 Halfway Goal (LTG) Patient will improve Sheth Balance score to at least 48/ 56 as measure of improved safety and decreased risk of falls Improve ABC score to at least 75% as measure of improved confidence in balance LTG Duration 07/02/22 One Impairment activity tolerance Impairment 2 min walk test 232 ft, unable to do 6 min walk test due to fatigue Short Term Goal (STG) Improve 2 min walk test to 350 ft as measure of improved activity tolerance STG Duration 05/15/22 Pediatric Physician Assistant Goal (LTG) Patient will be able to tolerate 6 min walk test without rest break as measure of improved activity tolerance . LTG Duration 07/02/22 Two Impairment fatigued after 2 min ambulation, Trendelenberg gait Assessment Summary Assessment PT clarified HEP with written cues on written HEP. Some improvement in activity tolerance with increased small community walks. Needs to modify session with personal chef due to excess fatigue and pain. Physical Therapy Plan Frequency and Duration Frequency of Treatment 2x/Week Duration of treatment (weeks) 12 Plan of Care Start Date 04/03/22 Plan of Care End Date 07/02/22 Therapeutic Interventions Therapeutic Interventions Balance Training,Gait Training ,Home Exercise Program,Manual Therapy,Neuromuscular Re- education,Patient/Caregiver Education,Self-Care/Home Management,Soft Tissue Mobilization,Taping, Therapeutic Activities, Therapeutic Exercises Modalities Cold Pack/Ice Massage,Electric Stimulation,Hot Packs, Infrared Therapy,Ultrasound Next Visit Focus/Plan Next Note Type Treatment Note Next Visit Plan Continue gentle PT for strengthening, balance, gait training, activity tolerance.
--- NOTE | 2022-05-06 13:30 | PT.OTN ---
Current Diagnoses Polyneuropathy in diseases classified elsewhere (05/06/22) Muscle weakness (generalized) (05/06/22) Other abnormalities of gait and mobility (05/06/22) Other symptoms and signs involving the nervous system (05/06/22) Chronic fatigue, unspecified (05/06/22) History of falling (05/06/22) Physical Therapy Treatment Note PT-OP-A Visit Information Start: 04/03/22 09:11 Freq: Status: Active Protocol: Document 05/06/22 08:10 [facility] (Rec: 05/06/22 09:00 [facility] [id number]) Out-Patient Physical Therapy Visit Information Visit Information Visit Type Treatment Note Visit Start Time 08:15 Visit Stop Time 08:55 Total Visit Minutes 40 Visit Number 6 Evaluation Information Evaluation Date 04/03/22 Precautions Precautions Sjogren's, cardiac history, fatigues easily, PT-OP-B Current Condition Start: 04/03/22 09:11 Freq: Status: Active Protocol: Document 05/06/22 08:10 [facility]AK (Rec: 05/06/22 09:00 [facility] [id number]) Current Condition History of Current Condition Onset Date October 30 Current Complaints weakness, balance difficulty History of Current Condition Long history of medical issues , most recently had been doing cardiac rehab, was able to walk 2-3 laps at [employer]. Came back from cruise and had Covid, hasn't recovered her physical ability since then; much slower pace, less distance, more fatigued. Energy level hasn't recovered. Has been to the ER several times for hernia, doctor reluctant to do surgery due to difficulty of recovery. Also having some left knee pain x 6 months. Breathing issues better with change in medication. Balance more impaired, no fall but feels less steady, skuffs feet, uses 4WW primarily, short distance with cane and holding onto someone. Numbness and tingling in hands are new. Stopped Prednisone due to weight gain and not feeling benefit. Prior Treatments and Tests left knee x-ray: bone on bone medial knee, seeing Dr. Gill in June. Seeing a new neurologist in [place] Jolley at [facility]. EMG at [facility]. showed severe peripheral neuropathy. Doing a new EMG next years with Dr. Jolley. Treatment Goals Patient/Caregiver Goals improve strength, balance, activity tolerance, walk park 2x and better pace. PT-OP-C Subjective Start: 04/03/22 09:11 Freq: Status: Active Protocol: Document 05/06/22 08:10 [facility] (Rec: 05/06/22 09:00 [facility] [id number]) OP-PT Subjective Patient Comments Patient Comments legs sore but overall body felt ok after PT last week. Saw maintenance trainer 05/02, went better, was able to do an outing Thursday night. Thursday was a bad day, didn't do much of anything. Thursday legs were weak and tingly in am, cancelled with Lydia. Was able to do 1:00 volunteer activity at [employer], was very tired. Today feels better at this time than she did last few days. Having more trouble reaching overhead , doing her hair and had difficulty drying herself off after a shower. Took tape off her knee last night. PT-OP-D Balance Start: 04/03/22 09:11 Freq: Status: Active Protocol: Document 04/03/22 12:58 [facility] (Rec: 04/03/22 14:28 [facility] [id number]) Sheth Balance Assessment Evaluation Sitting to Standing Ability Independent w/out Hands Unsupported Stance Safely- 2 minutes Sitting Unsupported, Feet on Floor Safely- 2 minutes Standing to Sitting Ability Assist, Use Legs on Chair Transfer Ability Safely, Hand Use Unsupported Stance- Eyes Closed Safely, With Eyes Open Unsupported Stance- Eyes Open Supervision to maintain Reaching Forward Standing Safely, 5 inches Pick- Up Object From Floor Requires Assistance Look Behind Shoulder - Standing Supervision w/Turning Turning 360 Degrees Turns , < 4 secs Unsupported Stance, Alternating Feet on (I)- 8 Steps in > 20 secs Stair Unsupported Tandem Stance Balance Lost- Step/Stand Unilateral Leg Stance Lifts Leg/Holds > 3 secs Total Score Sheth Total Score (out of 56 points) 33 Tinetti Balance Assessment Sitting Balance Sitting Balance Steady, safe Arising from Chair Ability to Arise Able, uses arms to help Standing Balance Immediate Standing Balance Steady with support Standing Balance Steady, wide stance Nudged Response Staggers, catches self Standing with Eyes Closed Unsteady Turning Step Pattern Turning 360 Degrees Continuous steps Sitting Down Sitting Down Uses arms or unsteady Gait and Step Initiation of Gait Hesitancy, mult. attempts Right Foot Step Length Does not pass stance ft. Right Foot Step Height Does not clear floor Left Foot Step Length Does not pass stance foot Left Foot Step Height Does not clear floor Step Description Step Symmetry Step length appears equal Step Continuity Steps appear continuous Gait Description Path Description Straight Trunk Description Marked sway or uses aide Walking Stance Heels apart Scoring and Interpretation Tinetti Composite Score (points) 11 PT-OP-E Functional Tests Start: 04/03/22 09:11 Freq: Status: Active Protocol: Document 04/03/22 12:58 [facility] (Rec: 04/03/22 14:28 [facility] [id number]) Functional Tests 2 Minute Walk Test Distance 232 ft Device Used 4WW Five Times Sit to Stand Test Comments deferred due to fatigue Timed Up and Go (TUG) Comments deferred due to fatigue PT-OP-G Mobility & Gait Start: 04/03/22 09:11 Freq: Status: Active Protocol: Document 04/03/22 12:58 [facility] (Rec: 04/03/22 14:28 [facility] [id number]) OP Gait Assessment Gait Gait Assistance Required: Independent Distance (Feet) 232 Assistive Devices Assistive Device 4 Wheeled Walker Gait Deviations General Gait Pattern Decreased Stride Length, Decreased Feet Clearance,Wide Based Gait Factors Limiting Gait Function Factors Limiting Gait Function Decreased Activity Tolerance PT-OP-H Neuro Start: 04/03/22 09:11 Freq: Status: Active Protocol: Document 04/03/22 12:58 [facility] (Rec: 04/03/22 14:28 [facility] [id number]) Sensation Evaluation Gross Sensation Gross Sensation Left UE Impaired,Right UE Impaired,Left LE Impaired, Right LE Impaired Sensation Description Paresthesia PT-OP-J Posture/Palpation/Skin Start: 04/03/22 09:11 Freq: Status: Active Protocol: Document 04/03/22 12:58 [facility] (Rec: 04/03/22 14:28 [facility] [id number]) Posture Evaluation Position Standing Head/C-Spine Posture Forward Head T-Spine Posture Increased Kyphosis L-Spine Posture Increased Lordosis Shoulder Posture (L) Rounded,(R) Rounded Scapula Posture (L) Protracted,(R) Protracted Arm Posture (L) Internally Rotated,(R) Internally Rotated Pelvis Posture Anteriorly Tilted Knee Posture (L) Genu Varus Patellar Posture (L) Neutral Palpation Assessment Location left knee Palpation Location medial. Palpation Findings Tenderness PT-OP-M Strength Start: 04/03/22 09:11 Freq: Status: Active Protocol: Document 04/03/22 12:58 [facility] (Rec: 04/03/22 14:28 [facility] [id number]) Shoulder Strength Shoulder Manual Muscle Testing girma Comments functionally difficulty with lifting overhead due to weakness, no MMT due to fatigue after other testing Elbow/Forearm Strength Elbow and Forearm Manual Muscle Testing girma Comments difficulty lifting, not formally tested due to fatigue from other testing PT-OP-Q Treatments Start: 04/03/22 09:11 Freq: Status: Active Protocol: Document 05/06/22 08:10 [facility] (Rec: 05/06/22 09:00 [facility] [id number]) Therapeutic Exercises Supine Exercises hip abd Equipment Used slider sheet Reps/Minutes 3x LTR Reps/Minutes 5x glut sets Reps/Minutes 5x girma ankle pumps Reps/Minutes 5x ball squeeze Reps/Minutes 5x5 shoulder flex Reps/Minutes 5x10 Sitting Exercises deep breathing Reps/Minutes 3x Comments cues for longer exhale, fully expanding all portions of lungs Manual Therapy Treatment Taping left knee Treatment Focus pain management Type of Tape kinesiotape Skin Inspection intact Comments I strip from tibial tuberosity across medial joint line PT-OP-T Assessment and Plan Start: 04/03/22 09:11 Freq: Status: Active Protocol: Document 05/06/22 08:10 [facility] (Rec: 05/06/22 09:00 [facility] [id number]) Physical Therapy Assessment Goals Four Impairment general UE weakness Impairment unable to reach overhead for purposes of performing ADL's Penitentiary Goal (LTG) patient will improve her strength sufficient to allow her to reach overhead for purposes of ADL's LTG Duration 07/02/22 left knee pain Impairment left knee pain 4/10 Impairment limits activity Short Term Goal (STG) decrease pain to no greater than 2/10 STG Duration 06/01/22 Penitentiary Goal (LTG) decrease pain to no greater than 1/10 with all usual activities LTG Duration 07/02/22 Three Impairment balance dysfunction Impairment Sheth Balance score 33/56 indicating high fall risk activities-specific balance confidence (ABC) scale score 56% Short Term Goal (STG) Improve Sheth balance score to at least 40/56 as measure of improved safety with mobility Improve ABC score to at least 65% as measure of improved confidence in balance STG Duration 05/15/22 Retail Consultant Goal (LTG) Patient will improve Sheth Balance score to at least 48/ 56 as measure of improved safety and decreased risk of falls Improve ABC score to at least 75% as measure of improved confidence in balance LTG Duration 07/02/22 One Impairment activity tolerance Impairment 2 min walk test 232 ft, unable to do 6 min walk test due to fatigue Short Term Goal (STG) Improve 2 min walk test to 350 ft as measure of improved activity tolerance STG Duration 05/15/22 Penitentiary Goal (LTG) Patient will be able to tolerate 6 min walk test without rest break as measure of improved activity tolerance . LTG Duration 07/02/22 Two Impairment fatigued after 2 min ambulation, Trendelenberg gait Penitentiary Goal (LTG) Patient able to walk without Trendelenberg gait at least 6 min LTG Duration 07/02/22 Assessment Summary Assessment 2 min walk test 253 ft today ( inc of 21 ft from eval). Fatigued rapidly with supine ex, roequired frequent rest breaks. Cont to work at finding appropriate ex level for patient at this time. Physical Therapy Plan Frequency and Duration Frequency of Treatment 2x/Week Duration of treatment (weeks) 12 Plan of Care Start Date 04/03/22 Plan of Care End Date 07/02/22 Therapeutic Interventions Therapeutic Interventions Balance Training,Gait Training ,Home Exercise Program,Manual Therapy,Neuromuscular Re- education,Patient/Caregiver Education,Self-Care/Home Management,Soft Tissue Mobilization,Taping, Therapeutic Activities, Therapeutic Exercises Modalities Cold Pack/Ice Massage,Electric Stimulation,Hot Packs, Infrared Therapy,Ultrasound Next Visit Focus/Plan Next Note Type Treatment Note Next Visit Plan Continue gentle PT for strengthening, balance, gait training, activity tolerance.
--- NOTE | 2022-05-20 14:42 | PT.OTN ---
Current Diagnoses Polyneuropathy in diseases classified elsewhere (05/20/22) Muscle weakness (generalized) (05/20/22) Other abnormalities of gait and mobility (05/20/22) Other symptoms and signs involving the nervous system (05/20/22) Chronic fatigue, unspecified (05/20/22) History of falling (05/20/22) Physical Therapy Treatment Note PT-OP-A Visit Information Start: 04/03/22 09:11 Freq: Status: Active Protocol: Document 05/20/22 13:47 [facility] (Rec: 05/20/22 14:40 [facility] [id number]) Out-Patient Physical Therapy Visit Information Visit Information Visit Type Treatment Note Visit Start Time 14:47 Total Visit Minutes 40 Visit Number 7 Evaluation Information Evaluation Date 04/03/22 Precautions Precautions Sjogren's, cardiac history, fatigues easily, PT-OP-B Current Condition Start: 04/03/22 09:11 Freq: Status: Active Protocol: Document 05/20/22 13:47 [facility] (Rec: 05/20/22 14:40 [facility] [id number]) Current Condition History of Current Condition Onset Date October 30 Current Complaints weakness, balance difficulty History of Current Condition Long history of medical issues , most recently had been doing cardiac rehab, was able to [facility] 2[facility]. Came back from cruise and had Covid, hasn't recovered her physical ability since then; much slower pace, less distance, more fatigued. Energy level hasn't recovered. Has been to the ER several times for hernia, doctor reluctant to do surgery due to difficulty of recovery. Also having some left knee pain x 6 months. Breathing issues better with change in medication. Balance more impaired, no fall but feels less steady, skuffs feet, uses 4WW primarily, short distance with cane and holding onto someone. Numbness and tingling in hands are new. Stopped Prednisone due to weight gain and not feeling benefit. Prior Treatments and Tests left knee x-ray: bone on bone medial knee, seeing Dr. Gill in June. Seeing a new neurologist in [place] Burt Jolley at [facility]. EMG at [facility]. showed severe peripheral neuropathy. Doing a new EMG next years with Dr. Jolley. PT-OP-C Subjective Start: 04/03/22 09:11 Freq: Status: Active Protocol: Document 05/20/22 13:47 [facility] (Rec: 05/20/22 14:40 [facility] [id number]) OP-PT Subjective Patient Comments Patient Comments Had an episode of sharp, searing pain left hip/buttok as well as bursitis-type pain in left shoulder most of the time. The hip/buttock pain lasted 2 days. Not doing exercises with personal care worker this month due to holiday activities; concerned she wouldn't have enough energy for both. PT-OP-D Balance Start: 04/03/22 09:11 Freq: Status: Active Protocol: Document 04/03/22 12:58 [facility] (Rec: 04/03/22 14:28 [facility] [id number]) Sheth Balance Assessment Evaluation Sitting to Standing Ability Independent w/out Hands Unsupported Stance Safely- 2 minutes Sitting Unsupported, Feet on Floor Safely- 2 minutes Standing to Sitting Ability Assist, Use Legs on Chair Transfer Ability Safely, Hand Use Unsupported Stance- Eyes Closed Safely, With Eyes Open Unsupported Stance- Eyes Open Supervision to maintain Reaching Forward Standing Safely, 5 inches Pick- Up Object From Floor Requires Assistance Look Behind Shoulder - Standing Supervision w/Turning Turning 360 Degrees Turns , < 4 secs Unsupported Stance, Alternating Feet on (I)- 8 Steps in > 20 secs Stair Unsupported Tandem Stance Balance Lost- Step/Stand Unilateral Leg Stance Lifts Leg/Holds > 3 secs Total Score Sheth Total Score (out of 56 points) 33 Tinetti Balance Assessment Sitting Balance Sitting Balance Steady, safe Arising from Chair Ability to Arise Able, uses arms to help Standing Balance Immediate Standing Balance Steady with support Standing Balance Steady, wide stance Nudged Response Staggers, catches self Standing with Eyes Closed Unsteady Turning Step Pattern Turning 360 Degrees Continuous steps Sitting Down Sitting Down Uses arms or unsteady Gait and Step Initiation of Gait Hesitancy, mult. attempts Right Foot Step Length Does not pass stance ft. Right Foot Step Height Does not clear floor Left Foot Step Length Does not pass stance foot Left Foot Step Height Does not clear floor Step Description Step Symmetry Step length appears equal Step Continuity Steps appear continuous Gait Description Path Description Straight Trunk Description Marked sway or uses aide Walking Stance Heels apart Scoring and Interpretation Tinetti Composite Score (points) 11 PT-OP-E Functional Tests Start: 04/03/22 09:11 Freq: Status: Active Protocol: Document 04/03/22 12:58 [facility] (Rec: 04/03/22 14:28 [facility] [id number]) Functional Tests 2 Minute Walk Test Distance 232 ft Device Used 4WW Five Times Sit to Stand Test Comments deferred due to fatigue Timed Up and Go (TUG) Comments deferred due to fatigue PT-OP-G Mobility & Gait Start: 04/03/22 09:11 Freq: Status: Active Protocol: Document 04/03/22 12:58 [facility] (Rec: 04/03/22 14:28 [facility] [id number]) OP Gait Assessment Gait Gait Assistance Required: Independent Distance (Feet) 232 Assistive Devices Assistive Device 4 Wheeled Walker Gait Deviations General Gait Pattern Decreased Stride Length, Decreased Feet Clearance,Wide Based Gait Factors Limiting Gait Function Factors Limiting Gait Function Decreased Activity Tolerance PT-OP-H Neuro Start: 04/03/22 09:11 Freq: Status: Active Protocol: Document 04/03/22 12:58 [facility] (Rec: 04/03/22 14:28 [facility] [id number]) Sensation Evaluation Gross Sensation Gross Sensation Left UE Impaired,Right UE Impaired,Left LE Impaired, Right LE Impaired Sensation Description Paresthesia PT-OP-J Posture/Palpation/Skin Start: 04/03/22 09:11 Freq: Status: Active Protocol: Document 04/03/22 12:58 [facility] (Rec: 04/03/22 14:28 [facility] [id number]) Posture Evaluation Position Standing Head/C-Spine Posture Forward Head T-Spine Posture Increased Kyphosis L-Spine Posture Increased Lordosis Shoulder Posture (L) Rounded,(R) Rounded Scapula Posture (L) Protracted,(R) Protracted Arm Posture (L) Internally Rotated,(R) Internally Rotated Pelvis Posture Anteriorly Tilted Knee Posture (L) Genu Varus Patellar Posture (L) Neutral Palpation Assessment Location left knee Palpation Location medial. Palpation Findings Tenderness PT-OP-M Strength Start: 04/03/22 09:11 Freq: Status: Active Protocol: Document 04/03/22 12:58 [facility] (Rec: 04/03/22 14:28 [facility] [id number]) Shoulder Strength Shoulder Manual Muscle Testing girma Comments functionally difficulty with lifting overhead due to weakness, no MMT due to fatigue after other testing Elbow/Forearm Strength Elbow and Forearm Manual Muscle Testing girma Comments difficulty lifting, not formally tested due to fatigue from other testing PT-OP-Q Treatments Start: 04/03/22 09:11 Freq: Status: Active Protocol: Document 05/20/22 13:47 [facility] (Rec: 05/20/22 14:40 [facility] [id number]) Therapeutic Exercises Supine Exercises figure 4 Reps/Minutes 2x30 Comments manual piriformis stretch Reps/Minutes 2x30 Comments manual IT band stretch Reps/Minutes 2x30 Comments manual HS stretch Reps/Minutes 2x30 Comments manual SKTC Reps/Minutes 2x30 Comments manual pec stretch Reps/Minutes 2x30 Sitting Exercises HS stretch Side bilateral Reps/Minutes 1x 30 Manual Therapy Treatment Taping left knee Treatment Focus pain management Type of Tape kinesiotape Skin Inspection intact Comments I strip from tibial tuberosity across medial joint line Self-Care/Home Management Treatment Education Patient Education Home Exercise Program,Pain Management,Posture Other Education self massage with tennis ball issued handout for LE stretches PT-OP-T Assessment and Plan Start: 04/03/22 09:11 Freq: Status: Active Protocol: Document 05/20/22 13:47 [facility] (Rec: 05/20/22 14:40 [facility] [id number]) Physical Therapy Assessment Goals Four Impairment general UE weakness Impairment unable to reach overhead for purposes of performing ADL's Residential Goal (LTG) patient will improve her strength sufficient to allow her to reach overhead for purposes of ADL's LTG Duration 07/02/22 left knee pain Impairment left knee pain 4/10 Impairment limits activity Short Term Goal (STG) decrease pain to no greater than 2/10 STG Duration 06/01/22 Eyelet Maker Goal (LTG) decrease pain to no greater than 1/10 with all usual activities LTG Duration 07/02/22 Three Impairment balance dysfunction Impairment Sheth Balance score 33/56 indicating high fall risk activities-specific balance confidence (ABC) scale score 56% Short Term Goal (STG) Improve Sheth balance score to at least 40/56 as measure of improved safety with mobility Improve ABC score to at least 65% as measure of improved confidence in balance 05/20/22: goal met STG Duration 05/15/22 Eyelet Maker Goal (LTG) Patient will improve Sheth Balance score to at least 48/ 56 as measure of improved safety and decreased risk of falls Improve ABC score to at least 75% as measure of improved confidence in balance LTG Duration 07/02/22 One Impairment activity tolerance Impairment 2 min walk test 232 ft, unable to do 6 min walk test due to fatigue Short Term Goal (STG) Improve 2 min walk test to 350 ft as measure of improved activity tolerance 05/20/22: increased to 267 ft STG Duration 05/15/22 Eyelet Maker Goal (LTG) Patient will be able to tolerate 6 min walk test without rest break as measure of improved activity tolerance . LTG Duration 07/02/22 Two Impairment fatigued after 2 min ambulation, Trendelenberg gait Residential Goal (LTG) Patient able to walk without Trendelenberg gait at least 6 min 05/20/22: patient more aware but has difficulty correcting. LTG Duration 07/02/22 Assessment Summary Assessment Patient reported decrease in buttock pain after treatment, demonstrated good understanding of exercises. Neurologist referring her for biopsy at [facility]. 6 min walk test 267 ft today with 4WW. Physical Therapy Plan Frequency and Duration Frequency of Treatment 2x/Week Duration of treatment (weeks) 12 Plan of Care Start Date 04/03/22 Plan of Care End Date 07/02/22 Therapeutic Interventions Therapeutic Interventions Balance Training,Gait Training ,Home Exercise Program,Manual Therapy,Neuromuscular Re- education,Patient/Caregiver Education,Self-Care/Home Management,Soft Tissue Mobilization,Taping, Therapeutic Activities, Therapeutic Exercises Modalities Cold Pack/Ice Massage,Electric Stimulation,Hot Packs, Infrared Therapy,Ultrasound Next Visit Focus/Plan Next Note Type Treatment Note
--- NOTE | 2022-05-27 10:09 | PT.OTN ---
Current Diagnoses Polyneuropathy in diseases classified elsewhere (05/27/22) Muscle weakness (generalized) (05/27/22) Other abnormalities of gait and mobility (05/27/22) Other symptoms and signs involving the nervous system (05/27/22) Chronic fatigue, unspecified (05/27/22) History of falling (05/27/22) Physical Therapy Treatment Note PT-OP-A Visit Information Start: 04/03/22 09:11 Freq: Status: Active Protocol: Document 05/27/22 09:04 [facility] (Rec: 05/27/22 09:46 [facility] [id number]) Out-Patient Physical Therapy Visit Information Visit Information Visit Type Treatment Note Visit Start Time 09:04 Visit Stop Time 09:45 Total Visit Minutes 41 Visit Number 8 Evaluation Information Evaluation Date 04/03/22 Precautions Precautions Sjogren's, cardiac history, fatigues easily, PT-OP-B Current Condition Start: 04/03/22 09:11 Freq: Status: Active Protocol: Document 05/27/22 09:04 [facility] (Rec: 05/27/22 09:46 [facility] [id number]) Current Condition History of Current Condition Onset Date October 30 Current Complaints weakness, balance difficulty History of Current Condition Long history of medical issues , most recently had been doing cardiac rehab, was able to walk 2-3 laps at [facility]. Came back from cruise and had Covid, hasn't recovered her physical ability since then; much slower pace, less distance, more fatigued. Energy level hasn't recovered. Has been to the ER several times for hernia, doctor reluctant to do surgery due to difficulty of recovery. Also having some left knee pain x 6 months. Breathing issues better with change in medication. Balance more impaired, no fall but feels less steady, skuffs feet, uses 4WW primarily, short distance with cane and holding onto someone. Numbness and tingling in hands are new. Stopped Prednisone due to weight gain and not feeling benefit. Prior Treatments and Tests left knee x-ray: bone on bone medial knee, seeing Dr. Gill in June. Seeing a new neurologist in [place] Burt Jolley at [facility]. EMG at [facility]. showed severe peripheral neuropathy. Doing a new EMG next years with Dr. Jolley. PT-OP-C Subjective Start: 04/03/22 09:11 Freq: Status: Active Protocol: Document 05/27/22 09:04 [facility] (Rec: 05/27/22 09:46 [facility] [id number]) OP-PT Subjective Patient Comments Patient Comments Reports massage use of ball for self-massage helpful. Not doing very well, very tired. Claire was a long, fatiguing day with family. day stayed in a chair. Had outing outside using power w/c. Very discouraged. Legs hurt, needs Alleve 2x/day. Using walker in the house. Buying folding power w/c. Will be calling back about referral to [facility]. won't see her anymore, has had. [facility] won't see her again; doesn't think anything they can do anymore. PT-OP-D Balance Start: 04/03/22 09:11 Freq: Status: Active Protocol: Document 04/03/22 12:58 [facility] (Rec: 04/03/22 14:28 [facility] [id number]) Sheth Balance Assessment Evaluation Sitting to Standing Ability Independent w/out Hands Unsupported Stance Safely- 2 minutes Sitting Unsupported, Feet on Floor Safely- 2 minutes Standing to Sitting Ability Assist, Use Legs on Chair Transfer Ability Safely, Hand Use Unsupported Stance- Eyes Closed Safely, With Eyes Open Unsupported Stance- Eyes Open Supervision to maintain Reaching Forward Standing Safely, 5 inches Pick- Up Object From Floor Requires Assistance Look Behind Shoulder - Standing Supervision w/Turning Turning 360 Degrees Turns , < 4 secs Unsupported Stance, Alternating Feet on (I)- 8 Steps in > 20 secs Stair Unsupported Tandem Stance Balance Lost- Step/Stand Unilateral Leg Stance Lifts Leg/Holds > 3 secs Total Score Sheth Total Score (out of 56 points) 33 Tinetti Balance Assessment Sitting Balance Sitting Balance Steady, safe Arising from Chair Ability to Arise Able, uses arms to help Standing Balance Immediate Standing Balance Steady with support Standing Balance Steady, wide stance Nudged Response Staggers, catches self Standing with Eyes Closed Unsteady Turning Step Pattern Turning 360 Degrees Continuous steps Sitting Down Sitting Down Uses arms or unsteady Gait and Step Initiation of Gait Hesitancy, mult. attempts Right Foot Step Length Does not pass stance ft. Right Foot Step Height Does not clear floor Left Foot Step Length Does not pass stance foot Left Foot Step Height Does not clear floor Step Description Step Symmetry Step length appears equal Step Continuity Steps appear continuous Gait Description Path Description Straight Trunk Description Marked sway or uses aide Walking Stance Heels apart Scoring and Interpretation Tinetti Composite Score (points) 11 PT-OP-E Functional Tests Start: 04/03/22 09:11 Freq: Status: Active Protocol: Document 04/03/22 12:58 [facility] (Rec: 04/03/22 14:28 [facility] [id number]) Functional Tests 2 Minute Walk Test Distance 232 ft Device Used 4WW Five Times Sit to Stand Test Comments deferred due to fatigue Timed Up and Go (TUG) Comments deferred due to fatigue PT-OP-G Mobility & Gait Start: 04/03/22 09:11 Freq: Status: Active Protocol: Document 04/03/22 12:58 [facility] (Rec: 04/03/22 14:28 [facility] [id number]) OP Gait Assessment Gait Gait Assistance Required: Independent Distance (Feet) 232 Assistive Devices Assistive Device 4 Wheeled Walker Gait Deviations General Gait Pattern Decreased Stride Length, Decreased Feet Clearance,Wide Based Gait Factors Limiting Gait Function Factors Limiting Gait Function Decreased Activity Tolerance PT-OP-H Neuro Start: 04/03/22 09:11 Freq: Status: Active Protocol: Document 04/03/22 12:58 [facility] (Rec: 04/03/22 14:28 [facility] [id number]) Sensation Evaluation Gross Sensation Gross Sensation Left UE Impaired,Right UE Impaired,Left LE Impaired, Right LE Impaired Sensation Description Paresthesia PT-OP-J Posture/Palpation/Skin Start: 04/03/22 09:11 Freq: Status: Active Protocol: Document 04/03/22 12:58 [facility] (Rec: 04/03/22 14:28 [facility] [id number]) Posture Evaluation Position Standing Head/C-Spine Posture Forward Head T-Spine Posture Increased Kyphosis L-Spine Posture Increased Lordosis Shoulder Posture (L) Rounded,(R) Rounded Scapula Posture (L) Protracted,(R) Protracted Arm Posture (L) Internally Rotated,(R) Internally Rotated Pelvis Posture Anteriorly Tilted Knee Posture (L) Genu Varus Patellar Posture (L) Neutral Palpation Assessment Location left knee Palpation Location medial. Palpation Findings Tenderness PT-OP-M Strength Start: 04/03/22 09:11 Freq: Status: Active Protocol: Document 04/03/22 12:58 [facility] (Rec: 04/03/22 14:28 [facility] [id number]) Shoulder Strength Shoulder Manual Muscle Testing girma Comments functionally difficulty with lifting overhead due to weakness, no MMT due to fatigue after other testing Elbow/Forearm Strength Elbow and Forearm Manual Muscle Testing girma Comments difficulty lifting, not formally tested due to fatigue from other testing PT-OP-Q Treatments Start: 04/03/22 09:11 Freq: Status: Active Protocol: Document 05/27/22 09:04 [facility] (Rec: 05/27/22 09:46 [facility] [id number]) Therapeutic Exercises Supine Exercises ball squeeze Reps/Minutes 5x5 Sitting Exercises Seated clam Resistance L1 TB Reps/Minutes 5x5 sitting core Sitting Exercise Name bal, circles, lean backs Reps/Minutes 5 min HS stretch Side bilateral Reps/Minutes 1x 30 pec stretch Reps/Minutes 3x5 deep breathing Reps/Minutes 3x Comments cues for longer exhale, fully expanding all portions of lungs Manual Therapy Treatment Taping left knee Treatment Focus pain management Type of Tape kinesiotape Skin Inspection intact Comments I strip from tibial tuberosity across medial joint line Self-Care/Home Management Treatment Education Patient Education Home Exercise Program,Pain Management,Posture Other Education pacing of activities, benefits of power w/c PT-OP-T Assessment and Plan Start: 04/03/22 09:11 Freq: Status: Active Protocol: Document 05/27/22 09:04 [facility] (Rec: 05/27/22 09:46 [facility] [id number]) Physical Therapy Assessment Goals Four Impairment general UE weakness Impairment unable to reach overhead for purposes of performing ADL's Halfway Goal (LTG) patient will improve her strength sufficient to allow her to reach overhead for purposes of ADL's LTG Duration 07/02/22 left knee pain Impairment left knee pain 4/10 Impairment limits activity Short Term Goal (STG) decrease pain to no greater than 2/10 STG Duration 06/01/22 Reinforcement Maker Goal (LTG) decrease pain to no greater than 1/10 with all usual activities LTG Duration 07/02/22 Three Impairment balance dysfunction Impairment Sheth Balance score 33/56 indicating high fall risk activities-specific balance confidence (ABC) scale score 56% Short Term Goal (STG) Improve Sheth balance score to at least 40/56 as measure of improved safety with mobility Improve ABC score to at least 65% as measure of improved confidence in balance 05/20/22: goal met STG Duration 05/15/22 Halfway Goal (LTG) Patient will improve Sheth Balance score to at least 48/ 56 as measure of improved safety and decreased risk of falls Improve ABC score to at least 75% as measure of improved confidence in balance LTG Duration 07/02/22 One Impairment activity tolerance Impairment 2 min walk test 232 ft, unable to do 6 min walk test due to fatigue Short Term Goal (STG) Improve 2 min walk test to 350 ft as measure of improved activity tolerance 05/20/22: increased to 267 ft STG Duration 05/15/22 Reinforcement Maker Goal (LTG) Patient will be able to tolerate 6 min walk test without rest break as measure of improved activity tolerance . LTG Duration 07/02/22 Two Impairment fatigued after 2 min ambulation, Trendelenberg gait Halfway Goal (LTG) Patient able to walk without Trendelenberg gait at least 6 min 05/20/22: patient more aware but has difficulty correcting. LTG Duration 07/02/22 Assessment Summary Assessment HR 99, O2 96 after walking. Hr 82bpm after 4 min seated rest. More fatigued after busyness of the holidays, feeling of worsening condition overall, considering power w/ c and w/c van. Tearful and frustrated including verbalization that at times doesn't have the energy to have a phone conversation. Physical Therapy Plan Frequency and Duration Frequency of Treatment 2x/Week Duration of treatment (weeks) 12 Plan of Care Start Date 04/03/22 Plan of Care End Date 07/02/22 Therapeutic Interventions Therapeutic Interventions Balance Training,Gait Training ,Home Exercise Program,Manual Therapy,Neuromuscular Re- education,Patient/Caregiver Education,Self-Care/Home Management,Soft Tissue Mobilization,Taping, Therapeutic Activities, Therapeutic Exercises Modalities Cold Pack/Ice Massage,Electric Stimulation,Hot Packs, Infrared Therapy,Ultrasound Next Visit Focus/Plan Next Note Type Treatment Note Next Visit Plan Continue PT per POC for gentle strengthening, balance, gait, pain management, activity tolerance.
--- NOTE | 2022-06-10 12:06 | PT.OTN ---
Current Diagnoses Polyneuropathy in diseases classified elsewhere (06/10/22) Muscle weakness (generalized) (06/10/22) Other abnormalities of gait and mobility (06/10/22) Other symptoms and signs involving the nervous system (06/10/22) Chronic fatigue, unspecified (06/10/22) History of falling (06/10/22) Physical Therapy Treatment Note PT-OP-A Visit Information Start: 04/03/22 09:11 Freq: Status: Active Protocol: Document 06/10/22 08:58 [facility] (Rec: 06/10/22 09:45 [facility] [id number]) Out-Patient Physical Therapy Visit Information Visit Information Visit Type Treatment Note Visit Start Time 09:00 Visit Stop Time 09:45 Total Visit Minutes 45 Visit Number 9 Evaluation Information Evaluation Date 04/03/22 Precautions Precautions Sjogren's, cardiac history, fatigues easily, PT-OP-B Current Condition Start: 04/03/22 09:11 Freq: Status: Active Protocol: Document 06/10/22 08:58 [facility] (Rec: 06/10/22 09:45 [facility] [id number]) Current Condition History of Current Condition Onset Date October 30 Current Complaints weakness, balance difficulty History of Current Condition Long history of medical issues , most recently had been doing cardiac rehab, was able to walk 2-3 laps at [facility]. Came back from cruise and had Covid, hasn't recovered her physical ability since then; much slower pace, less distance, more fatigued. Energy level hasn't recovered. Has been to the ER several times for hernia, doctor reluctant to do surgery due to difficulty of recovery. Also having some left knee pain x 6 months. Breathing issues better with change in medication. Balance more impaired, no fall but feels less steady, skuffs feet, uses 4WW primarily, short distance with cane and holding onto someone. Numbness and tingling in hands are new. Stopped Prednisone due to weight gain and not feeling benefit. Prior Treatments and Tests left knee x-ray: bone on bone medial knee, seeing Dr. Gill in June. Seeing a new neurologist in [place] at [facility]. EMG at [facility]. showed severe peripheral neuropathy. Doing a new EMG next years with Dr. Jolley. PT-OP-C Subjective Start: 04/03/22 09:11 Freq: Status: Active Protocol: Document 06/10/22 08:58 [facility] (Rec: 06/10/22 09:45 [facility] [id number]) OP-PT Subjective Patient Comments Patient Comments Has had more episodes of angina lasting longer, spent whole day in bed on Thursday not feeling well; angina all day waxing and waning, profound fatigue and weakness. Called clinic office assistant, had labs ordered , told they were normal. Sees cardiolosgist 07/18/22. Used power w/c on Thursday on paved trail. Has lost 4 pounds. Not driving anymore. BP most recently at doctor 89/54. Also reports more SOB with the angina. Saw Dr. Gill, no surgery recommended yet PT-OP-D Balance Start: 04/03/22 09:11 Freq: Status: Active Protocol: Document 04/03/22 12:58 [facility] (Rec: 04/03/22 14:28 [facility] [id number]) Sheth Balance Assessment Evaluation Sitting to Standing Ability Independent w/out Hands Unsupported Stance Safely- 2 minutes Sitting Unsupported, Feet on Floor Safely- 2 minutes Standing to Sitting Ability Assist, Use Legs on Chair Transfer Ability Safely, Hand Use Unsupported Stance- Eyes Closed Safely, With Eyes Open Unsupported Stance- Eyes Open Supervision to maintain Reaching Forward Standing Safely, 5 inches Pick- Up Object From Floor Requires Assistance Look Behind Shoulder - Standing Supervision w/Turning Turning 360 Degrees Turns , < 4 secs Unsupported Stance, Alternating Feet on (I)- 8 Steps in > 20 secs Stair Unsupported Tandem Stance Balance Lost- Step/Stand Unilateral Leg Stance Lifts Leg/Holds > 3 secs Total Score Sheth Total Score (out of 56 points) 33 Tinetti Balance Assessment Sitting Balance Sitting Balance Steady, safe Arising from Chair Ability to Arise Able, uses arms to help Standing Balance Immediate Standing Balance Steady with support Standing Balance Steady, wide stance Nudged Response Staggers, catches self Standing with Eyes Closed Unsteady Turning Step Pattern Turning 360 Degrees Continuous steps Sitting Down Sitting Down Uses arms or unsteady Gait and Step Initiation of Gait Hesitancy, mult. attempts Right Foot Step Length Does not pass stance ft. Right Foot Step Height Does not clear floor Left Foot Step Length Does not pass stance foot Left Foot Step Height Does not clear floor Step Description Step Symmetry Step length appears equal Step Continuity Steps appear continuous Gait Description Path Description Straight Trunk Description Marked sway or uses aide Walking Stance Heels apart Scoring and Interpretation Tinetti Composite Score (points) 11 PT-OP-E Functional Tests Start: 04/03/22 09:11 Freq: Status: Active Protocol: Document 04/03/22 12:58 [facility] (Rec: 04/03/22 14:28 [facility] [id number]) Functional Tests 2 Minute Walk Test Distance 232 ft Device Used 4WW Five Times Sit to Stand Test Comments deferred due to fatigue Timed Up and Go (TUG) Comments deferred due to fatigue PT-OP-G Mobility & Gait Start: 04/03/22 09:11 Freq: Status: Active Protocol: Document 04/03/22 12:58 [facility] (Rec: 04/03/22 14:28 [facility] [id number]) OP Gait Assessment Gait Gait Assistance Required: Independent Distance (Feet) 232 Assistive Devices Assistive Device 4 Wheeled Walker Gait Deviations General Gait Pattern Decreased Stride Length, Decreased Feet Clearance,Wide Based Gait Factors Limiting Gait Function Factors Limiting Gait Function Decreased Activity Tolerance PT-OP-H Neuro Start: 04/03/22 09:11 Freq: Status: Active Protocol: Document 04/03/22 12:58 [facility] (Rec: 04/03/22 14:28 [facility] [id number]) Sensation Evaluation Gross Sensation Gross Sensation Left UE Impaired,Right UE Impaired,Left LE Impaired, Right LE Impaired Sensation Description Paresthesia PT-OP-J Posture/Palpation/Skin Start: 04/03/22 09:11 Freq: Status: Active Protocol: Document 04/03/22 12:58 [facility] (Rec: 04/03/22 14:28 [facility] [id number]) Posture Evaluation Position Standing Head/C-Spine Posture Forward Head T-Spine Posture Increased Kyphosis L-Spine Posture Increased Lordosis Shoulder Posture (L) Rounded,(R) Rounded Scapula Posture (L) Protracted,(R) Protracted Arm Posture (L) Internally Rotated,(R) Internally Rotated Pelvis Posture Anteriorly Tilted Knee Posture (L) Genu Varus Patellar Posture (L) Neutral Palpation Assessment Location left knee Palpation Location medial. Palpation Findings Tenderness PT-OP-M Strength Start: 04/03/22 09:11 Freq: Status: Active Protocol: Document 04/03/22 12:58 [facility] (Rec: 04/03/22 14:28 [facility] [id number]) Shoulder Strength Shoulder Manual Muscle Testing girma Comments functionally difficulty with lifting overhead due to weakness, no MMT due to fatigue after other testing Elbow/Forearm Strength Elbow and Forearm Manual Muscle Testing girma Comments difficulty lifting, not formally tested due to fatigue from other testing PT-OP-Q Treatments Start: 04/03/22 09:11 Freq: Status: Active Protocol: Document 06/10/22 08:58 [facility] (Rec: 06/10/22 09:45 [facility] [id number]) Cardio Equipment Recumbent Bicycle Duration (Minutes) 1 Resistance 1 Seat Position 1 Gait Training Gait Activity 1 Description 6 min walk test Device Used 4WW Level of Assistance verbal cues Surface firm Distance/Duration 269 ft Treatment Focus speed Manual Therapy Treatment Taping left knee Treatment Focus pain management Type of Tape kinesiotape Skin Inspection intact Comments I strip from tibial tuberosity across medial joint line Self-Care/Home Management Treatment Education Patient Education Home Exercise Program,Pain Management,Posture Other Education breathing exercises for relaxation, improved lung capacity PT-OP-T Assessment and Plan Start: 04/03/22 09:11 Freq: Status: Active Protocol: Document 06/10/22 08:58 [facility] (Rec: 06/10/22 09:45 [facility] [id number]) Physical Therapy Assessment Goals Four Impairment general UE weakness Impairment unable to reach overhead for purposes of performing ADL's [employer] Goal (LTG) patient will improve her strength sufficient to allow her to reach overhead for purposes of ADL's LTG Duration 07/02/22 left knee pain Impairment left knee pain 4/10 Impairment limits activity Short Term Goal (STG) decrease pain to no greater than 2/10 STG Duration 06/01/22 [employer] Goal (LTG) decrease pain to no greater than 1/10 with all usual activities LTG Duration 07/02/22 Three Impairment balance dysfunction Impairment Sheth Balance score 33/56 indicating high fall risk activities-specific balance confidence (ABC) scale score 56% Short Term Goal (STG) Improve Sheth balance score to at least 40/56 as measure of improved safety with mobility Improve ABC score to at least 65% as measure of improved confidence in balance 05/20/22: goal met STG Duration 05/15/22 [facility] Goal (LTG) Patient will improve Sheth Balance score to at least 48/ 56 as measure of improved safety and decreased risk of falls Improve ABC score to at least 75% as measure of improved confidence in balance LTG Duration 07/02/22 One Impairment activity tolerance Impairment 2 min walk test 232 ft, unable to do 6 min walk test due to fatigue Short Term Goal (STG) Improve 2 min walk test to 350 ft as measure of improved activity tolerance 05/20/22: increased to 267 ft STG Duration 05/15/22 [employer] Goal (LTG) Patient will be able to tolerate 6 min walk test without rest break as measure of improved activity tolerance . LTG Duration 07/02/22 Two Impairment fatigued after 2 min ambulation, Trendelenberg gait [facility] Goal (LTG) Patient able to walk without Trendelenberg gait at least 6 min 05/20/22: patient more aware but has difficulty correcting. LTG Duration 07/02/22 Assessment Summary Assessment BP 120/75. No angina in PT today. Able to do 2 min walk test today with improved distance. Patient now utilizing power w/c to allow for some outdoor outings. Patient receptive to contacting clinic office assistant to see if can be seen earlier. Physical Therapy Plan Frequency and Duration Frequency of Treatment 2x/Week Duration of treatment (weeks) 12 Plan of Care Start Date 04/03/22 Plan of Care End Date 07/02/22 Therapeutic Interventions Therapeutic Interventions Balance Training,Gait Training ,Home Exercise Program,Manual Therapy,Neuromuscular Re- education,Patient/Caregiver Education,Self-Care/Home Management,Soft Tissue Mobilization,Taping, Therapeutic Activities, Therapeutic Exercises Modalities Cold Pack/Ice Massage,Electric Stimulation,Hot Packs, Infrared Therapy,Ultrasound Next Visit Focus/Plan Next Note Type Treatment Note Next Visit Plan Continue PT per POC for gentle strengthening, balance, gait, pain management, activity tolerance. Monitor vital signs.
--- NOTE | 2022-06-19 16:37 | PT.OTN ---
Current Diagnoses Polyneuropathy in diseases classified elsewhere (06/19/22) Muscle weakness (generalized) (06/19/22) Other abnormalities of gait and mobility (06/19/22) Other symptoms and signs involving the nervous system (06/19/22) Chronic fatigue, unspecified (06/19/22) History of falling (06/19/22) Physical Therapy Treatment Note PT-OP-A Visit Information Start: 04/03/22 09:11 Freq: Status: Active Protocol: Document 06/19/22 13:44 SAK (Rec: 06/19/22 14:31 [facility] [id number]) Out-Patient Physical Therapy Visit Information Visit Information Visit Type Treatment Note Visit Start Time 13:45 Visit Stop Time 14:24 Total Visit Minutes 40 Visit Number 10 Evaluation Information Evaluation Date 04/03/22 Precautions Precautions Sjogren's, cardiac history, fatigues easily, PT-OP-B Current Condition Start: 04/03/22 09:11 Freq: Status: Active Protocol: Document 06/19/22 13:44 SAK (Rec: 06/19/22 14:31 [facility] [id number]) Current Condition History of Current Condition Onset Date October 30 Current Complaints weakness, balance difficulty History of Current Condition Long history of medical issues , most recently had been doing cardiac rehab, was able to walk 2-3 laps at [facility]. Came back from cruise and had Covid, hasn't recovered her physical ability since then; much slower pace, less distance, more fatigued. Energy level hasn't recovered. Has been to the ER several times for hernia, doctor reluctant to do surgery due to difficulty of recovery. Also having some left knee pain x 6 months. Breathing issues better with change in medication. Balance more impaired, no fall but feels less steady, skuffs feet, uses 4WW primarily, short distance with cane and holding onto someone. Numbness and tingling in hands are new. Stopped Prednisone due to weight gain and not feeling benefit. Prior Treatments and Tests left knee x-ray: bone on bone medial knee, seeing Dr. Gill in June. Seeing a new neurologist in [place] Burt Jolley at [facility]. EMG at [facility]. showed severe peripheral neuropathy. Doing a new EMG next years with Dr. Jolley. PT-OP-C Subjective Start: 04/03/22 09:11 Freq: Status: Active Protocol: Document 06/19/22 13:44 SAK (Rec: 06/19/22 14:31 [facility] [id number]) OP-PT Subjective Patient Comments Patient Comments Was in ER last week due to persistent angina, tests revealed no heart attack. Medications adjusted per medical record. Patient continues to carry nitroglycerine. States feeling her legs feel better with decline in activity intensity due to SOB and angina. Becomes SOB with brushing teeth. Sees vp software engineering 07/18. Fatigue increased Increased sleeping amount, sleeping well. Angina comes on when at rest. PT-OP-D Balance Start: 04/03/22 09:11 Freq: Status: Active Protocol: Document 04/03/22 12:58 SAK (Rec: 04/03/22 14:28 [facility] [id number]) Sheth Balance Assessment Evaluation Sitting to Standing Ability Independent w/out Hands Unsupported Stance Safely- 2 minutes Sitting Unsupported, Feet on Floor Safely- 2 minutes Standing to Sitting Ability Assist, Use Legs on Chair Transfer Ability Safely, Hand Use Unsupported Stance- Eyes Closed Safely, With Eyes Open Unsupported Stance- Eyes Open Supervision to maintain Reaching Forward Standing Safely, 5 inches Pick- Up Object From Floor Requires Assistance Look Behind Shoulder - Standing Supervision w/Turning Turning 360 Degrees Turns , < 4 secs Unsupported Stance, Alternating Feet on (I)- 8 Steps in > 20 secs Stair Unsupported Tandem Stance Balance Lost- Step/Stand Unilateral Leg Stance Lifts Leg/Holds > 3 secs Total Score Sheth Total Score (out of 56 points) 33 Tinetti Balance Assessment Sitting Balance Sitting Balance Steady, safe Arising from Chair Ability to Arise Able, uses arms to help Standing Balance Immediate Standing Balance Steady with support Standing Balance Steady, wide stance Nudged Response Staggers, catches self Standing with Eyes Closed Unsteady Turning Step Pattern Turning 360 Degrees Continuous steps Sitting Down Sitting Down Uses arms or unsteady Gait and Step Initiation of Gait Hesitancy, mult. attempts Right Foot Step Length Does not pass stance ft. Right Foot Step Height Does not clear floor Left Foot Step Length Does not pass stance foot Left Foot Step Height Does not clear floor Step Description Step Symmetry Step length appears equal Step Continuity Steps appear continuous Gait Description Path Description Straight Trunk Description Marked sway or uses aide Walking Stance Heels apart Scoring and Interpretation Tinetti Composite Score (points) 11 PT-OP-E Functional Tests Start: 04/03/22 09:11 Freq: Status: Active Protocol: Document 04/03/22 12:58 [facility] (Rec: 04/03/22 14:28 [facility] [id number]) Functional Tests 2 Minute Walk Test Distance 232 ft Device Used 4WW Five Times Sit to Stand Test Comments deferred due to fatigue Timed Up and Go (TUG) Comments deferred due to fatigue PT-OP-G Mobility & Gait Start: 04/03/22 09:11 Freq: Status: Active Protocol: Document 04/03/22 12:58 [facility] (Rec: 04/03/22 14:28 [facility] [id number]) OP Gait Assessment Gait Gait Assistance Required: Independent Distance (Feet) 232 Assistive Devices Assistive Device 4 Wheeled Walker Gait Deviations General Gait Pattern Decreased Stride Length, Decreased Feet Clearance,Wide Based Gait Factors Limiting Gait Function Factors Limiting Gait Function Decreased Activity Tolerance PT-OP-H Neuro Start: 04/03/22 09:11 Freq: Status: Active Protocol: Document 04/03/22 12:58 [facility] (Rec: 04/03/22 14:28 [facility] [id number]) Sensation Evaluation Gross Sensation Gross Sensation Left UE Impaired,Right UE Impaired,Left LE Impaired, Right LE Impaired Sensation Description Paresthesia PT-OP-J Posture/Palpation/Skin Start: 04/03/22 09:11 Freq: Status: Active Protocol: Document 04/03/22 12:58 [facility] (Rec: 04/03/22 14:28 [facility] [id number]) Posture Evaluation Position Standing Head/C-Spine Posture Forward Head T-Spine Posture Increased Kyphosis L-Spine Posture Increased Lordosis Shoulder Posture (L) Rounded,(R) Rounded Scapula Posture (L) Protracted,(R) Protracted Arm Posture (L) Internally Rotated,(R) Internally Rotated Pelvis Posture Anteriorly Tilted Knee Posture (L) Genu Varus Patellar Posture (L) Neutral Palpation Assessment Location left knee Palpation Location medial. Palpation Findings Tenderness PT-OP-M Strength Start: 04/03/22 09:11 Freq: Status: Active Protocol: Document 04/03/22 12:58 [facility] (Rec: 04/03/22 14:28 [facility] [id number]) Shoulder Strength Shoulder Manual Muscle Testing girma Comments functionally difficulty with lifting overhead due to weakness, no MMT due to fatigue after other testing Elbow/Forearm Strength Elbow and Forearm Manual Muscle Testing girma Comments difficulty lifting, not formally tested due to fatigue from other testing PT-OP-Q Treatments Start: 04/03/22 09:11 Freq: Status: Active Protocol: Document 06/19/22 13:44 [facility] (Rec: 06/19/22 14:31 SAK [id number]) Cardio Equipment Recumbent Bicycle Duration (Minutes) 2 Resistance 1 Seat Position 1 Therapeutic Exercises Sitting Exercises sitting core Sitting Exercise Name bal, circles, lean backs, LAQ Equipment Used Dynadisc Reps/Minutes 7 min deep breathing Reps/Minutes 3x Comments cues for longer exhale, fully expanding all portions of lungs Gait Training Gait Activity 1 Description 2 min walk test Device Used 4WW Level of Assistance verbal cues Surface firm Distance/Duration 267 ft Treatment Focus speed, pacing Manual Therapy Treatment Taping left knee Treatment Focus pain management Type of Tape kinesiotape Skin Inspection intact Comments I strip from tibial tuberosity across medial joint line Self-Care/Home Management Treatment Education Patient Education Home Exercise Program,Pain Management,Posture Other Education pacing of activity, go to ER again if uncontrolled angina PT-OP-T Assessment and Plan Start: 04/03/22 09:11 Freq: Status: Active Protocol: Document 06/19/22 13:44 [facility] (Rec: 06/19/22 14:31 [facility] [id number]) Physical Therapy Assessment Goals Four Impairment general UE weakness Impairment unable to reach overhead for purposes of performing ADL's Snf Goal (LTG) patient will improve her strength sufficient to allow her to reach overhead for purposes of ADL's LTG Duration 07/02/22 left knee pain Impairment left knee pain 4/10 Impairment limits activity Short Term Goal (STG) decrease pain to no greater than 2/10 STG Duration 06/01/22 Hand Packer Goal (LTG) decrease pain to no greater than 1/10 with all usual activities LTG Duration 07/02/22 Three Impairment balance dysfunction Impairment Sheth Balance score 33/56 indicating high fall risk activities-specific balance confidence (ABC) scale score 56% Short Term Goal (STG) Improve Sheth balance score to at least 40/56 as measure of improved safety with mobility Improve ABC score to at least 65% as measure of improved confidence in balance 05/20/22: goal met STG Duration 05/15/22 Snf Goal (LTG) Patient will improve Sheth Balance score to at least 48/ 56 as measure of improved safety and decreased risk of falls Improve ABC score to at least 75% as measure of improved confidence in balance LTG Duration 07/02/22 One Impairment activity tolerance Impairment 2 min walk test 232 ft, unable to do 6 min walk test due to fatigue Short Term Goal (STG) Improve 2 min walk test to 350 ft as measure of improved activity tolerance 05/20/22: increased to 267 ft STG Duration 05/15/22 Snf Goal (LTG) Patient will be able to tolerate 6 min walk test without rest break as measure of improved activity tolerance . LTG Duration 07/02/22 Two Impairment fatigued after 2 min ambulation, Trendelenberg gait Hand Packer Goal (LTG) Patient able to walk without Trendelenberg gait at least 6 min 05/20/22: patient more aware but has difficulty correcting. LTG Duration 07/02/22 Assessment Summary Assessment BP 129/72, HR 59bpm. No angina in PT today, was in ER last week due to uncontrolled angina. Sees vp software engineering 07/18. No change 2 min walk test, has decreased activity levl some due to SOB and angina. Knee was better until inc walking last couple days with standing breaks. Physical Therapy Plan Frequency and Duration Frequency of Treatment 2x/Week Duration of treatment (weeks) 12 Plan of Care Start Date 04/03/22 Plan of Care End Date 07/02/22 Therapeutic Interventions Therapeutic Interventions Balance Training,Gait Training ,Home Exercise Program,Manual Therapy,Neuromuscular Re- education,Patient/Caregiver Education,Self-Care/Home Management,Soft Tissue Mobilization,Taping, Therapeutic Activities, Therapeutic Exercises Modalities Cold Pack/Ice Massage,Electric Stimulation,Hot Packs, Infrared Therapy,Ultrasound Next Visit Focus/Plan Next Note Type Treatment Note Next Visit Plan Continue PT per POC for gentle strengthening, balance, gait, pain management, activity tolerance. Monitor vital signs.
--- NOTE | 2022-06-24 16:55 | PT.OTN ---
Current Diagnoses Polyneuropathy in diseases classified elsewhere (06/24/22) Muscle weakness (generalized) (06/24/22) Other abnormalities of gait and mobility (06/24/22) Other symptoms and signs involving the nervous system (06/24/22) Chronic fatigue, unspecified (06/24/22) History of falling (06/24/22) Physical Therapy Treatment Note PT-OP-A Visit Information Start: 04/03/22 09:11 Freq: Status: Active Protocol: Document 06/24/22 09:52 [facility] (Rec: 06/24/22 10:29 [facility] [id number]) Out-Patient Physical Therapy Visit Information Visit Information Visit Type Treatment Note Visit Start Time 09:45 Visit Stop Time 10:25 Total Visit Minutes 40 Visit Number 11 Evaluation Information Evaluation Date 04/03/22 Precautions Precautions Sjogren's, cardiac history, fatigues easily, PT-OP-B Current Condition Start: 04/03/22 09:11 Freq: Status: Active Protocol: Document 06/24/22 09:52 [facility] (Rec: 06/24/22 10:29 [facility] [id number]) Current Condition History of Current Condition Onset Date October 30 Current Complaints weakness, balance difficulty History of Current Condition Long history of medical issues , most recently had been doing cardiac rehab, was able to walk 2-3 laps at [facility]. Came back from cruise and had Covid, hasn't recovered her physical ability since then; much slower pace, less distance, more fatigued. Energy level hasn't recovered. Has been to the ER several times for hernia, doctor reluctant to do surgery due to difficulty of recovery. Also having some left knee pain x 6 months. Breathing issues better with change in medication. Balance more impaired, no fall but feels less steady, skuffs feet, uses 4WW primarily, short distance with cane and holding onto someone. Numbness and tingling in hands are new. Stopped Prednisone due to weight gain and not feeling benefit. Prior Treatments and Tests left knee x-ray: bone on bone medial knee, seeing Dr. Gill in June. Seeing a new neurologist in [place] Burt Jolley at [facility]. EMG at [facility]. showed severe peripheral neuropathy. Doing a new EMG next years with Dr. Jolley. PT-OP-C Subjective Start: 04/03/22 09:11 Freq: Status: Active Protocol: Document 06/24/22 09:52 [facility] (Rec: 06/24/22 10:29 [facility] [id number]) OP-PT Subjective Patient Comments Patient Comments After PT last week, called auto refinisher to report pain and SOB; Cartia XT new cardiac medication 1x/day with purpose of dec frequent angina and SOB, lower BP. Hasn't noticed dec BP but noticed dec HR and SOB and angina. PT-OP-D Balance Start: 04/03/22 09:11 Freq: Status: Active Protocol: Document 04/03/22 12:58 [facility] (Rec: 04/03/22 14:28 [facility] [id number]) Sheth Balance Assessment Evaluation Sitting to Standing Ability Independent w/out Hands Unsupported Stance Safely- 2 minutes Sitting Unsupported, Feet on Floor Safely- 2 minutes Standing to Sitting Ability Assist, Use Legs on Chair Transfer Ability Safely, Hand Use Unsupported Stance- Eyes Closed Safely, With Eyes Open Unsupported Stance- Eyes Open Supervision to maintain Reaching Forward Standing Safely, 5 inches Pick- Up Object From Floor Requires Assistance Look Behind Shoulder - Standing Supervision w/Turning Turning 360 Degrees Turns , < 4 secs Unsupported Stance, Alternating Feet on (I)- 8 Steps in > 20 secs Stair Unsupported Tandem Stance Balance Lost- Step/Stand Unilateral Leg Stance Lifts Leg/Holds > 3 secs Total Score Sheth Total Score (out of 56 points) 33 Tinetti Balance Assessment Sitting Balance Sitting Balance Steady, safe Arising from Chair Ability to Arise Able, uses arms to help Standing Balance Immediate Standing Balance Steady with support Standing Balance Steady, wide stance Nudged Response Staggers, catches self Standing with Eyes Closed Unsteady Turning Step Pattern Turning 360 Degrees Continuous steps Sitting Down Sitting Down Uses arms or unsteady Gait and Step Initiation of Gait Hesitancy, mult. attempts Right Foot Step Length Does not pass stance ft. Right Foot Step Height Does not clear floor Left Foot Step Length Does not pass stance foot Left Foot Step Height Does not clear floor Step Description Step Symmetry Step length appears equal Step Continuity Steps appear continuous Gait Description Path Description Straight Trunk Description Marked sway or uses aide Walking Stance Heels apart Scoring and Interpretation Tinetti Composite Score (points) 11 PT-OP-E Functional Tests Start: 04/03/22 09:11 Freq: Status: Active Protocol: Document 04/03/22 12:58 [facility] (Rec: 04/03/22 14:28 [facility] [id number]) Functional Tests 2 Minute Walk Test Distance 232 ft Device Used 4WW Five Times Sit to Stand Test Comments deferred due to fatigue Timed Up and Go (TUG) Comments deferred due to fatigue PT-OP-G Mobility & Gait Start: 04/03/22 09:11 Freq: Status: Active Protocol: Document 04/03/22 12:58 [facility] (Rec: 04/03/22 14:28 [facility] [id number]) OP Gait Assessment Gait Gait Assistance Required: Independent Distance (Feet) 232 Assistive Devices Assistive Device 4 Wheeled Walker Gait Deviations General Gait Pattern Decreased Stride Length, Decreased Feet Clearance,Wide Based Gait Factors Limiting Gait Function Factors Limiting Gait Function Decreased Activity Tolerance PT-OP-H Neuro Start: 04/03/22 09:11 Freq: Status: Active Protocol: Document 04/03/22 12:58 [facility] (Rec: 04/03/22 14:28 [facility] [id number]) Sensation Evaluation Gross Sensation Gross Sensation Left UE Impaired,Right UE Impaired,Left LE Impaired, Right LE Impaired Sensation Description Paresthesia PT-OP-J Posture/Palpation/Skin Start: 04/03/22 09:11 Freq: Status: Active Protocol: Document 04/03/22 12:58 [facility] (Rec: 04/03/22 14:28 [facility] [id number]) Posture Evaluation Position Standing Head/C-Spine Posture Forward Head T-Spine Posture Increased Kyphosis L-Spine Posture Increased Lordosis Shoulder Posture (L) Rounded,(R) Rounded Scapula Posture (L) Protracted,(R) Protracted Arm Posture (L) Internally Rotated,(R) Internally Rotated Pelvis Posture Anteriorly Tilted Knee Posture (L) Genu Varus Patellar Posture (L) Neutral Palpation Assessment Location left knee Palpation Location medial. Palpation Findings Tenderness PT-OP-M Strength Start: 04/03/22 09:11 Freq: Status: Active Protocol: Document 04/03/22 12:58 [facility] (Rec: 04/03/22 14:28 [facility] [id number]) Shoulder Strength Shoulder Manual Muscle Testing girma Comments functionally difficulty with lifting overhead due to weakness, no MMT due to fatigue after other testing Elbow/Forearm Strength Elbow and Forearm Manual Muscle Testing girma Comments difficulty lifting, not formally tested due to fatigue from other testing PT-OP-Q Treatments Start: 04/03/22 09:11 Freq: Status: Active Protocol: Document 06/24/22 09:52 [facility] (Rec: 06/24/22 10:29 [facility] [id number]) Therapeutic Exercises Sitting Exercises pulleys Reps/Minutes 5x girma UE elevation Sitting Exercise Name apple picking UE ROM Sitting Exercise Name hands, wrists, elbows, Reps/Minutes 5x Comments ROM all planes sitting core Sitting Exercise Name bal, circles, lean backs, LAQ Equipment Used Dynadisc Reps/Minutes 7 min deep breathing Reps/Minutes 3x Comments cues for longer exhale, fully expanding all portions of lungs Gait Training Gait Activity 1 Description 2 min walk test Device Used 4WW Level of Assistance verbal cues Surface firm Distance/Duration 327 ft Treatment Focus speed, pacing Manual Therapy Treatment Taping left knee Treatment Focus pain management Type of Tape kinesiotape Skin Inspection intact Comments I strip from tibial tuberosity across medial joint line Self-Care/Home Management Treatment Education Patient Education Home Exercise Program PT-OP-T Assessment and Plan Start: 04/03/22 09:11 Freq: Status: Active Protocol: Document 06/24/22 09:52 [facility] (Rec: 06/24/22 10:29 [facility] [id number]) Physical Therapy Assessment Goals Four Impairment general UE weakness Impairment unable to reach overhead for purposes of performing ADL's Prison Goal (LTG) patient will improve her strength sufficient to allow her to reach overhead for purposes of ADL's LTG Duration 07/02/22 left knee pain Impairment left knee pain 4/10 Impairment limits activity Short Term Goal (STG) decrease pain to no greater than 2/10 STG Duration 06/01/22 Stock Worker Goal (LTG) decrease pain to no greater than 1/10 with all usual activities LTG Duration 07/02/22 Three Impairment balance dysfunction Impairment Sheth Balance score 33/56 indicating high fall risk activities-specific balance confidence (ABC) scale score 56% Short Term Goal (STG) Improve Sheth balance score to at least 40/56 as measure of improved safety with mobility Improve ABC score to at least 65% as measure of improved confidence in balance 05/20/22: goal met STG Duration 05/15/22 Prison Goal (LTG) Patient will improve Sheth Balance score to at least 48/ 56 as measure of improved safety and decreased risk of falls Improve ABC score to at least 75% as measure of improved confidence in balance LTG Duration 07/02/22 One Impairment activity tolerance Impairment 2 min walk test 232 ft, unable to do 6 min walk test due to fatigue Short Term Goal (STG) Improve 2 min walk test to 350 ft as measure of improved activity tolerance 05/20/22: increased to 267 ft STG Duration 05/15/22 Stock Worker Goal (LTG) Patient will be able to tolerate 6 min walk test without rest break as measure of improved activity tolerance . LTG Duration 07/02/22 Two Impairment fatigued after 2 min ambulation, Trendelenberg gait Prison Goal (LTG) Patient able to walk without Trendelenberg gait at least 6 min 05/20/22: patient more aware but has difficulty correcting. LTG Duration 07/02/22 Assessment Summary Assessment Improved activity je, dec angina and SOB with new cardiac meds. 2 min walk test 327 ft; fatigued and SOB but large increase in distance. Seeing new neurologist 07/01/22 . Still feeling legs are going to collapse at times. Still difficulty with holding phone up during calls, can't write, UE's have to be supported with typing and time very limited. More hopeful with new meds and some improvement in activity tolerance. Physical Therapy Plan Frequency and Duration Frequency of Treatment 2x/Week Duration of treatment (weeks) 12 Plan of Care Start Date 04/03/22 Plan of Care End Date 07/02/22 Therapeutic Interventions Therapeutic Interventions Balance Training,Gait Training ,Home Exercise Program,Manual Therapy,Neuromuscular Re- education,Patient/Caregiver Education,Self-Care/Home Management,Soft Tissue Mobilization,Taping, Therapeutic Activities, Therapeutic Exercises Modalities Cold Pack/Ice Massage,Electric Stimulation,Hot Packs, Infrared Therapy,Ultrasound Next Visit Focus/Plan Next Note Type Treatment Note Next Visit Plan Continue PT per POC for gentle strengthening, balance, gait, pain management, activity tolerance. Monitor vital signs.
--- NOTE | 2022-07-03 16:33 | PT.OTN ---
Current Diagnoses Polyneuropathy in diseases classified elsewhere (07/03/22) Muscle weakness (generalized) (07/03/22) Other abnormalities of gait and mobility (07/03/22) Other symptoms and signs involving the nervous system (07/03/22) Chronic fatigue, unspecified (07/03/22) History of falling (07/03/22) Physical Therapy Treatment Note PT-OP-A Visit Information Start: 04/03/22 09:11 Freq: Status: Active Protocol: Document 07/03/22 14:30 SAK (Rec: 07/03/22 15:16 [facility] [id number]) Out-Patient Physical Therapy Visit Information Visit Information Visit Type Treatment Note Visit Start Time 14:30 Visit Stop Time 15:13 Total Visit Minutes 43 Visit Number 12 Evaluation Information Evaluation Date 04/03/22 Precautions Precautions Sjogren's, cardiac history, fatigues easily, PT-OP-B Current Condition Start: 04/03/22 09:11 Freq: Status: Active Protocol: Document 07/03/22 14:30 SAK (Rec: 07/03/22 15:16 [facility] [id number]) Current Condition History of Current Condition Onset Date October 30 Current Complaints weakness, balance difficulty History of Current Condition Long history of medical issues , most recently had been doing cardiac rehab, was able to walk 2-3 laps at [facility]. Came back from cruise and had Covid, hasn't recovered her physical ability since then; much slower pace, less distance, more fatigued. Energy level hasn't recovered. Has been to the ER several times for hernia, doctor reluctant to do surgery due to difficulty of recovery. Also having some left knee pain x 6 months. Breathing issues better with change in medication. Balance more impaired, no fall but feels less steady, skuffs feet, uses 4WW primarily, short distance with cane and holding onto someone. Numbness and tingling in hands are new. Stopped Prednisone due to weight gain and not feeling benefit. Prior Treatments and Tests left knee x-ray: bone on bone medial knee, seeing Dr. Gill in June. Seeing a new neurologist in [place] at [facility]. EMG at [facility]. showed severe peripheral neuropathy. Doing a new EMG next years with Dr. Jolley. PT-OP-C Subjective Start: 04/03/22 09:11 Freq: Status: Active Protocol: Document 07/03/22 14:30 [facility] (Rec: 07/03/22 15:16 SAK [id number]) OP-PT Subjective Patient Comments Patient Comments Went to [facility] on Thursday, saw new neurologist. Took history , thorough exam. 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 Will go back for further testing. Wants pulmonary function test redone. Possibly more genetic testing. Did a lot of walking , feels worn out from the trip . SOB persists. PT-OP-D Balance Start: 04/03/22 09:11 Freq: Status: Active Protocol: Document 04/03/22 12:58 [facility] (Rec: 04/03/22 14:28 [facility] [id number]) Sheth Balance Assessment Evaluation Sitting to Standing Ability Independent w/out Hands Unsupported Stance Safely- 2 minutes Sitting Unsupported, Feet on Floor Safely- 2 minutes Standing to Sitting Ability Assist, Use Legs on Chair Transfer Ability Safely, Hand Use Unsupported Stance- Eyes Closed Safely, With Eyes Open Unsupported Stance- Eyes Open Supervision to maintain Reaching Forward Standing Safely, 5 inches Pick- Up Object From Floor Requires Assistance Look Behind Shoulder - Standing Supervision w/Turning Turning 360 Degrees Turns , < 4 secs Unsupported Stance, Alternating Feet on (I)- 8 Steps in > 20 secs Stair Unsupported Tandem Stance Balance Lost- Step/Stand Unilateral Leg Stance Lifts Leg/Holds > 3 secs Total Score Sheth Total Score (out of 56 points) 33 Tinetti Balance Assessment Sitting Balance Sitting Balance Steady, safe Arising from Chair Ability to Arise Able, uses arms to help Standing Balance Immediate Standing Balance Steady with support Standing Balance Steady, wide stance Nudged Response Staggers, catches self Standing with Eyes Closed Unsteady Turning Step Pattern Turning 360 Degrees Continuous steps Sitting Down Sitting Down Uses arms or unsteady Gait and Step Initiation of Gait Hesitancy, mult. attempts Right Foot Step Length Does not pass stance ft. Right Foot Step Height Does not clear floor Left Foot Step Length Does not pass stance foot Left Foot Step Height Does not clear floor Step Description Step Symmetry Step length appears equal Step Continuity Steps appear continuous Gait Description Path Description Straight Trunk Description Marked sway or uses aide Walking Stance Heels apart Scoring and Interpretation Tinetti Composite Score (points) 11 PT-OP-E Functional Tests Start: 04/03/22 09:11 Freq: Status: Active Protocol: Document 04/03/22 12:58 [facility] (Rec: 04/03/22 14:28 [facility] [id number]) Functional Tests 2 Minute Walk Test Distance 232 ft Device Used 4WW Five Times Sit to Stand Test Comments deferred due to fatigue Timed Up and Go (TUG) Comments deferred due to fatigue PT-OP-G Mobility & Gait Start: 04/03/22 09:11 Freq: Status: Active Protocol: Document 04/03/22 12:58 [facility] (Rec: 04/03/22 14:28 [facility] [id number]) OP Gait Assessment Gait Gait Assistance Required: Independent Distance (Feet) 232 Assistive Devices Assistive Device 4 Wheeled Walker Gait Deviations General Gait Pattern Decreased Stride Length, Decreased Feet Clearance,Wide Based Gait Factors Limiting Gait Function Factors Limiting Gait Function Decreased Activity Tolerance PT-OP-H Neuro Start: 04/03/22 09:11 Freq: Status: Active Protocol: Document 04/03/22 12:58 [facility] (Rec: 04/03/22 14:28 [facility] [id number]) Sensation Evaluation Gross Sensation Gross Sensation Left UE Impaired,Right UE Impaired,Left LE Impaired, Right LE Impaired Sensation Description Paresthesia PT-OP-J Posture/Palpation/Skin Start: 04/03/22 09:11 Freq: Status: Active Protocol: Document 04/03/22 12:58 [facility] (Rec: 04/03/22 14:28 [facility] [id number]) Posture Evaluation Position Standing Head/C-Spine Posture Forward Head T-Spine Posture Increased Kyphosis L-Spine Posture Increased Lordosis Shoulder Posture (L) Rounded,(R) Rounded Scapula Posture (L) Protracted,(R) Protracted Arm Posture (L) Internally Rotated,(R) Internally Rotated Pelvis Posture Anteriorly Tilted Knee Posture (L) Genu Varus Patellar Posture (L) Neutral Palpation Assessment Location left knee Palpation Location medial. Palpation Findings Tenderness PT-OP-M Strength Start: 04/03/22 09:11 Freq: Status: Active Protocol: Document 04/03/22 12:58 [facility] (Rec: 04/03/22 14:28 [facility] [id number]) Shoulder Strength Shoulder Manual Muscle Testing girma Comments functionally difficulty with lifting overhead due to weakness, no MMT due to fatigue after other testing Elbow/Forearm Strength Elbow and Forearm Manual Muscle Testing girma Comments difficulty lifting, not formally tested due to fatigue from other testing PT-OP-Q Treatments Start: 04/03/22 09:11 Freq: Status: Active Protocol: Document 07/03/22 14:30 [facility] (Rec: 07/03/22 15:16 [facility] [id number]) Cardio Equipment Recumbent Bicycle Resistance 1 Seat Position 1 Other 2 min, 1 min Therapeutic Exercises Sitting Exercises UE elevation Sitting Exercise Name apple picking Reps/Minutes 3x sitting core Sitting Exercise Name bal, circles, lean backs, LAQ Equipment Used Dynadisc Reps/Minutes 7 min deep breathing Reps/Minutes 5x Comments cues for longer exhale, fully expanding all portions of lungs PT-OP-T Assessment and Plan Start: 04/03/22 09:11 Freq: Status: Active Protocol: Document 07/03/22 14:30 [facility] (Rec: 07/03/22 15:16 [facility] [id number]) Physical Therapy Assessment Goals Four Impairment general UE weakness Impairment unable to reach overhead for purposes of performing ADL's [facility] Staff Nurse Goal (LTG) patient will improve her strength sufficient to allow her to reach overhead for purposes of ADL's LTG Duration 08/26/22 left knee pain Impairment left knee pain 4/10 Impairment limits activity Short Term Goal (STG) decrease pain to no greater than 2/10 07/02/22: good goal progress. Pain 2-4/10. Best decrease noted with kinesiotape of knee . STG Duration 07/29/22 [facility] Staff Nurse Goal (LTG) decrease pain to no greater than 1/10 with all usual activities LTG Duration 08/26/22 Three Impairment balance dysfunction Impairment Sheth Balance score 33/56 indicating high fall risk activities-specific balance confidence (ABC) scale score 56% Short Term Goal (STG) Improve Sheth balance score to at least 40/56 as measure of improved safety with mobility Improve ABC score to at least 65% as measure of improved confidence in balance 05/20/22: goal met STG Duration goal met [facility] Goal (LTG) Patient will improve Sheth Balance score to at least 48/ 56 as measure of improved safety and decreased risk of falls Improve ABC score to at least 75% as measure of improved confidence in balance 07/02/22: good goal progress. Sheth balance score 41/56 LTG Duration 07/02/22 One Impairment activity tolerance Impairment 2 min walk test 232 ft, unable to do 6 min walk test due to fatigue Short Term Goal (STG) Improve 2 min walk test to 350 ft as measure of improved activity tolerance 05/20/22: increased to 267 ft 07/02/22: increased to 327 ft, good goal progress STG Duration 07/29/22 [facility] Staff Nurse Goal (LTG) Patient will be able to tolerate 6 min walk test without rest break as measure of improved activity tolerance . LTG Duration 08/26/22 Two Impairment fatigued after 2 min ambulation, Trendelenberg gait [facility] Goal (LTG) Patient able to walk without Trendelenberg gait at least 6 min 05/20/22: patient more aware but has difficulty correcting. 07/02/22: ambulation ability variable, limited today due to fatigue from trip to [place] . Trendelenberg persists. LTG Duration 07/02/22 Assessment Summary Assessment BP 127/74. ENergy level remains low with patient c/o SOB, limited walking ability. Planning further testing per neurologist. No 2 min walk test due to fatigue today. Last session 327 ft improved but then tolerated minimal activity after. Has made good progress toward PT goals. Due to variability of functional status, functional strength and activity tolerance feel she would benefit from further PT to help her fully achieve her PT goals as she undergoes further medical testing Physical Therapy Plan Frequency and Duration Frequency of Treatment 1x/Week Duration of treatment (weeks) 8 Plan of Care Start Date 07/03/22 Plan of Care End Date 08/26/22 Therapeutic Interventions Therapeutic Interventions Balance Training,Gait Training ,Home Exercise Program,Manual Therapy,Neuromuscular Re- education,Patient/Caregiver Education,Self-Care/Home Management,Soft Tissue Mobilization,Taping, Therapeutic Activities, Therapeutic Exercises Modalities Cold Pack/Ice Massage,Electric Stimulation,Hot Packs, Infrared Therapy,Ultrasound Next Visit Focus/Plan Next Note Type Treatment Note Next Visit Plan Continue PT per POC for gentle strengthening, balance, gait, pain management, activity tolerance. Monitor vital signs. Assure independence and compliance with modifiable HEP.
--- NOTE | 2022-07-03 16:33 | PT.OPPOC ---
Physical, Occupational & Speech Therapy At [facility] Current Diagnoses Polyneuropathy in diseases classified elsewhere (07/03/22) Muscle weakness (generalized) (07/03/22) Other abnormalities of gait and mobility (07/03/22) Other symptoms and signs involving the nervous system (07/03/22) Chronic fatigue, unspecified (07/03/22) History of falling (07/03/22) Visit Care Team Role Provider Type JENAE Mark Attending Provider Advanced Junior Database Administrator Family Provider Primary Care Provider Referring Provider Specialty: Family Practice Address: [address] [place] [address], [facility] Email: [email or web address] Plan Of Care PT-OP-T Assessment and Plan Start: 04/03/22 09:11 Freq: Status: Active Protocol: Document 07/03/22 14:30 [facility] (Rec: 07/03/22 15:16 [facility] [id number]) Physical Therapy Assessment Goals Four Impairment general UE weakness Impairment unable to reach overhead for purposes of performing ADL's Nursing Home Goal (LTG) patient will improve her strength sufficient to allow her to reach overhead for purposes of ADL's LTG Duration 08/26/22 left knee pain Impairment left knee pain 4/10 Impairment limits activity Short Term Goal (STG) decrease pain to no greater than 2/10 07/02/22: good goal progress. Pain 2-4/10. Best decrease noted with kinesiotape of knee . STG Duration 07/29/22 Quality Control Inspector Heading Goal (LTG) decrease pain to no greater than 1/10 with all usual activities LTG Duration 08/26/22 Three Impairment balance dysfunction Impairment Sheth Balance score 33/56 indicating high fall risk activities-specific balance confidence (ABC) scale score 56% Short Term Goal (STG) Improve Sheth balance score to at least 40/56 as measure of improved safety with mobility Improve ABC score to at least 65% as measure of improved confidence in balance 05/20/22: goal met STG Duration goal met Quality Control Inspector Heading Goal (LTG) Patient will improve Sheth Balance score to at least 48/ 56 as measure of improved safety and decreased risk of falls Improve ABC score to at least 75% as measure of improved confidence in balance 07/02/22: good goal progress. Sheth balance score 41/56 LTG Duration 07/02/22 One Impairment activity tolerance Impairment 2 min walk test 232 ft, unable to do 6 min walk test due to fatigue Short Term Goal (STG) Improve 2 min walk test to 350 ft as measure of improved activity tolerance 05/20/22: increased to 267 ft 07/02/22: increased to 327 ft, good goal progress STG Duration 07/29/22 Nursing Home Goal (LTG) Patient will be able to tolerate 6 min walk test without rest break as measure of improved activity tolerance . LTG Duration 08/26/22 Two Impairment fatigued after 2 min ambulation, Trendelenberg gait Nursing Home Goal (LTG) Patient able to walk without Trendelenberg gait at least 6 min 05/20/22: patient more aware but has difficulty correcting. 07/02/22: ambulation ability variable, limited today due to fatigue from trip to [place] . Trendelenberg persists. LTG Duration 07/02/22 Assessment Summary Assessment BP 127/74. ENergy level remains low with patient c/o SOB, limited walking ability. Planning further testing per neurologist. No 2 min walk test due to fatigue today. Last session 327 ft improved but then tolerated minimal activity after. Has made good progress toward PT goals. Due to variability of functional status, functional strength and activity tolerance feel she would benefit from further PT to help her fully achieve her PT goals as she undergoes further medical testing Physical Therapy Plan Frequency and Duration Frequency of Treatment 1x/Week Duration of treatment (weeks) 8 Plan of Care Start Date 07/03/22 Plan of Care End Date 08/26/22 Therapeutic Interventions Therapeutic Interventions Balance Training,Gait Training ,Home Exercise Program,Manual Therapy,Neuromuscular Re- education,Patient/Caregiver Education,Self-Care/Home Management,Soft Tissue Mobilization,Taping, Therapeutic Activities, Therapeutic Exercises Modalities Cold Pack/Ice Massage,Electric Stimulation,Hot Packs, Infrared Therapy,Ultrasound Next Visit Focus/Plan Next Note Type Treatment Note Next Visit Plan Continue PT per POC for gentle strengthening, balance, gait, pain management, activity tolerance. Monitor vital signs. Assure independence and compliance with modifiable HEP. Plan of Care Dates Plan of Care Start Date 07/03/22 Plan of Care End Date 08/26/22 Electronically Signed by: Sydnie Clark, PT 07/03/22 9709 If you are in agreement with this Plan of Care, please return a signed and dated copy. I have reviewed this Plan of Care and certify that the skilled therapy services above are required to meet the patient?s needs. Physician Signature Date Printed Name and Credentials Clinical Instructor Signature Printed Name and Credentials
--- NOTE | 2022-07-09 12:21 | PT.OTN ---
Current Diagnoses Polyneuropathy in diseases classified elsewhere (07/09/22) Muscle weakness (generalized) (07/09/22) Other abnormalities of gait and mobility (07/09/22) Other symptoms and signs involving the nervous system (07/09/22) Chronic fatigue, unspecified (07/09/22) History of falling (07/09/22) Physical Therapy Treatment Note PT-OP-A Visit Information Start: 04/03/22 09:11 Freq: Status: Active Protocol: Document 07/09/22 11:19 [facility] (Rec: 07/09/22 12:21 [facility] [id number]) Out-Patient Physical Therapy Visit Information Visit Information Visit Type Treatment Note Visit Start Time 11:20 Visit Stop Time 12:05 Total Visit Minutes 45 Visit Number 13 Evaluation Information Evaluation Date 04/03/22 Precautions Precautions Sjogren's, cardiac history, fatigues easily, PT-OP-B Current Condition Start: 04/03/22 09:11 Freq: Status: Active Protocol: Document 07/09/22 11:19 [facility]AK (Rec: 07/09/22 12:21 [facility] [id number]) Current Condition History of Current Condition Onset Date October 30 Current Complaints weakness, balance difficulty History of Current Condition Long history of medical issues , most recently had been doing cardiac rehab, was able to walk 2-3 laps at [facility] [place]. Came back from cruise and had Covid, hasn't recovered her physical ability since then; much slower pace, less distance, more fatigued. Energy level hasn't recovered. Has been to the ER several times for hernia, doctor reluctant to do surgery due to difficulty of recovery. Also having some left knee pain x 6 months. Breathing issues better with change in medication. Balance more impaired, no fall but feels less steady, skuffs feet, uses 4WW primarily, short distance with cane and holding onto someone. Numbness and tingling in hands are new. Stopped Prednisone due to weight gain and not feeling benefit. Prior Treatments and Tests left knee x-ray: bone on bone medial knee, seeing Dr. Gill in June. Seeing a new neurologist in [place] Burt Jolley at [facility]. EMG at [facility]. showed severe peripheral neuropathy. Doing a new EMG next years with Dr. Jolley. PT-OP-C Subjective Start: 04/03/22 09:11 Freq: Status: Active Protocol: Document 07/09/22 11:19 [facility] (Rec: 07/09/22 12:21 [facility] [id number]) OP-PT Subjective Patient Comments Patient Comments Got an appointment with [facility] for non-ischemic forearm test end of July. Fair amount of SOB and fatigue plus nausea. More compliant to HEP. Paying attention to breathing ex as instructed. Walking approx 10 min per day, needs resting breaks. BP and HR have been stable. PT-OP-D Balance Start: 04/03/22 09:11 Freq: Status: Active Protocol: Document 04/03/22 12:58 [facility] (Rec: 04/03/22 14:28 [facility] [id number]) Sheth Balance Assessment Evaluation Sitting to Standing Ability Independent w/out Hands Unsupported Stance Safely- 2 minutes Sitting Unsupported, Feet on Floor Safely- 2 minutes Standing to Sitting Ability Assist, Use Legs on Chair Transfer Ability Safely, Hand Use Unsupported Stance- Eyes Closed Safely, With Eyes Open Unsupported Stance- Eyes Open Supervision to maintain Reaching Forward Standing Safely, 5 inches Pick- Up Object From Floor Requires Assistance Look Behind Shoulder - Standing Supervision w/Turning Turning 360 Degrees Turns , < 4 secs Unsupported Stance, Alternating Feet on (I)- 8 Steps in > 20 secs Stair Unsupported Tandem Stance Balance Lost- Step/Stand Unilateral Leg Stance Lifts Leg/Holds > 3 secs Total Score Sheth Total Score (out of 56 points) 33 Tinetti Balance Assessment Sitting Balance Sitting Balance Steady, safe Arising from Chair Ability to Arise Able, uses arms to help Standing Balance Immediate Standing Balance Steady with support Standing Balance Steady, wide stance Nudged Response Staggers, catches self Standing with Eyes Closed Unsteady Turning Step Pattern Turning 360 Degrees Continuous steps Sitting Down Sitting Down Uses arms or unsteady Gait and Step Initiation of Gait Hesitancy, mult. attempts Right Foot Step Length Does not pass stance ft. Right Foot Step Height Does not clear floor Left Foot Step Length Does not pass stance foot Left Foot Step Height Does not clear floor Step Description Step Symmetry Step length appears equal Step Continuity Steps appear continuous Gait Description Path Description Straight Trunk Description Marked sway or uses aide Walking Stance Heels apart Scoring and Interpretation Tinetti Composite Score (points) 11 PT-OP-E Functional Tests Start: 04/03/22 09:11 Freq: Status: Active Protocol: Document 04/03/22 12:58 [facility] (Rec: 04/03/22 14:28 [facility] [id number]) Functional Tests 2 Minute Walk Test Distance 232 ft Device Used 4WW Five Times Sit to Stand Test Comments deferred due to fatigue Timed Up and Go (TUG) Comments deferred due to fatigue PT-OP-G Mobility & Gait Start: 04/03/22 09:11 Freq: Status: Active Protocol: Document 04/03/22 12:58 [facility] (Rec: 04/03/22 14:28 [facility] [id number]) OP Gait Assessment Gait Gait Assistance Required: Independent Distance (Feet) 232 Assistive Devices Assistive Device 4 Wheeled Walker Gait Deviations General Gait Pattern Decreased Stride Length, Decreased Feet Clearance,Wide Based Gait Factors Limiting Gait Function Factors Limiting Gait Function Decreased Activity Tolerance PT-OP-H Neuro Start: 04/03/22 09:11 Freq: Status: Active Protocol: Document 04/03/22 12:58 [facility] (Rec: 04/03/22 14:28 [facility] [id number]) Sensation Evaluation Gross Sensation Gross Sensation Left UE Impaired,Right UE Impaired,Left LE Impaired, Right LE Impaired Sensation Description Paresthesia PT-OP-J Posture/Palpation/Skin Start: 04/03/22 09:11 Freq: Status: Active Protocol: Document 04/03/22 12:58 [facility] (Rec: 04/03/22 14:28 [facility] [id number]) Posture Evaluation Position Standing Head/C-Spine Posture Forward Head T-Spine Posture Increased Kyphosis L-Spine Posture Increased Lordosis Shoulder Posture (L) Rounded,(R) Rounded Scapula Posture (L) Protracted,(R) Protracted Arm Posture (L) Internally Rotated,(R) Internally Rotated Pelvis Posture Anteriorly Tilted Knee Posture (L) Genu Varus Patellar Posture (L) Neutral Palpation Assessment Location left knee Palpation Location medial. Palpation Findings Tenderness PT-OP-M Strength Start: 04/03/22 09:11 Freq: Status: Active Protocol: Document 04/03/22 12:58 [facility] (Rec: 04/03/22 14:28 [facility] [id number]) Shoulder Strength Shoulder Manual Muscle Testing girma Comments functionally difficulty with lifting overhead due to weakness, no MMT due to fatigue after other testing Elbow/Forearm Strength Elbow and Forearm Manual Muscle Testing girma Comments difficulty lifting, not formally tested due to fatigue from other testing PT-OP-Q Treatments Start: 04/03/22 09:11 Freq: Status: Active Protocol: Document 07/09/22 11:19 [facility] (Rec: 07/09/22 12:21 [facility] [id number]) Cardio Equipment Recumbent Bicycle Resistance 1 Seat Position 1 Other 2 min 12 sec, 1 min 22 sec Gym Equipment Shuttle Balance 2 Details red bal and wt shift f/b, side Reps/Duration 10 min Therapeutic Exercises Sitting Exercises lateral trunk stretch Reps/Minutes 2x10 pec stretch Reps/Minutes 3x5 deep breathing Reps/Minutes 5x Comments cues for longer exhale, fully expanding all portions of lungs Manual Therapy Treatment Taping left knee Treatment Focus pain management Type of Tape kinesiotape Skin Inspection intact Comments I strip from tibial tuberosity across medial joint line PT-OP-T Assessment and Plan Start: 04/03/22 09:11 Freq: Status: Active Protocol: Document 07/09/22 11:19 [facility] (Rec: 07/09/22 12:21 [facility] [id number]) Physical Therapy Assessment Goals Four Impairment general UE weakness Impairment unable to reach overhead for purposes of performing ADL's Alf Goal (LTG) patient will improve her strength sufficient to allow her to reach overhead for purposes of ADL's LTG Duration 08/26/22 left knee pain Impairment left knee pain 4/10 Impairment limits activity Short Term Goal (STG) decrease pain to no greater than 2/10 07/02/22: good goal progress. Pain 2-4/10. Best decrease noted with kinesiotape of knee . STG Duration 07/29/22 Alf Goal (LTG) decrease pain to no greater than 1/10 with all usual activities LTG Duration 08/26/22 Three Impairment balance dysfunction Impairment Sheth Balance score 33/56 indicating high fall risk activities-specific balance confidence (ABC) scale score 56% Short Term Goal (STG) Improve Sheth balance score to at least 40/56 as measure of improved safety with mobility Improve ABC score to at least 65% as measure of improved confidence in balance 05/20/22: goal met STG Duration goal met M[employer] Acquisitions Attorney Goal (LTG) Patient will improve Sheth Balance score to at least 48/ 56 as measure of improved safety and decreased risk of falls Improve ABC score to at least 75% as measure of improved confidence in balance 07/02/22: good goal progress. Sheth balance score 41/56 LTG Duration 07/02/22 One Impairment activity tolerance Impairment 2 min walk test 232 ft, unable to do 6 min walk test due to fatigue Short Term Goal (STG) Improve 2 min walk test to 350 ft as measure of improved activity tolerance 05/20/22: increased to 267 ft 07/02/22: increased to 327 ft, good goal progress STG Duration 07/29/22 [employer] Acquis[employer] Attorney Goal (LTG) Patient will be able to tolerate 6 min walk test without rest break as measure of improved activity tolerance . LTG Duration 08/26/22 Two Impairment fatigued after 2 min ambulation, Trendelenberg gait Alf Goal (LTG) Patient able to walk without Trendelenberg gait at least 6 min 05/20/22: patient more aware but has difficulty correcting. 07/02/22: ambulation ability variable, limited today due to fatigue from trip to [place] . Trendelenberg persists. LTG Duration 07/02/22 Assessment Summary Assessment 2 min walk test 260 ft. Improved compliance to HEP. Slightly longer on recumbent bicycle. Improved control on shuttle balance. Physical Therapy Plan Frequency and Duration Frequency of Treatment 1x/Week Duration of treatment (weeks) 8 Plan of Care Start Date 07/03/22 Plan of Care End Date 08/26/22 Therapeutic Interventions Therapeutic Interventions Balance Training,Gait Training ,Home Exercise Program,Manual Therapy,Neuromuscular Re- education,Patient/Caregiver Education,Self-Care/Home Management,Soft Tissue Mobilization,Taping, Therapeutic Activities, Therapeutic Exercises Modalities Cold Pack/Ice Massage,Electric Stimulation,Hot Packs, Infrared Therapy,Ultrasound Next Visit Focus/Plan Next Note Type Treatment Note Next Visit Plan Continue PT per POC for gentle strengthening, balance, gait, pain management, activity tolerance. Monitor vital signs. Assure independence and compliance with modifiable HEP.
--- NOTE | 2022-07-14 13:43 | PT.OTN ---
Current Diagnoses Polyneuropathy in diseases classified elsewhere (07/14/22) Muscle weakness (generalized) (07/14/22) Other abnormalities of gait and mobility (07/14/22) Other symptoms and signs involving the nervous system (07/14/22) Chronic fatigue, unspecified (07/14/22) History of falling (07/14/22) Physical Therapy Treatment Note PT-OP-A Visit Information Start: 04/03/22 09:11 Freq: Status: Active Protocol: Document 07/14/22 12:59 [facility] (Rec: 07/14/22 13:43 [facility] [id number]) Out-Patient Physical Therapy Visit Information Visit Information Visit Type Treatment Note Visit Start Time 13:00 Visit Stop Time 13:44 Total Visit Minutes 44 Visit Number 14 Precautions Precautions Sjogren's, cardiac history, fatigues easily, PT-OP-B Current Condition Start: 04/03/22 09:11 Freq: Status: Active Protocol: Document 07/14/22 12:59 [facility] (Rec: 07/14/22 13:43 [facility] [id number]) Current Condition History of Current Condition Onset Date October 30 Current Complaints weakness, balance difficulty History of Current Condition Long history of medical issues , most recently had been doing cardiac rehab, was able to walk 2-3 laps at [email or web address] Came back from cruise and had Covid, hasn't recovered her physical ability since then; much slower pace, less distance, more fatigued. Energy level hasn't recovered. Has been to the ER several times for hernia, doctor reluctant to do surgery due to difficulty of recovery. Also having some left knee pain x 6 months. Breathing issues better with change in medication. Balance more impaired, no fall but feels less steady, skuffs feet, uses 4WW primarily, short distance with cane and holding onto someone. Numbness and tingling in hands are new. Stopped Prednisone due to weight gain and not feeling benefit. Prior Treatments and Tests left knee x-ray: bone on bone medial knee, seeing Dr. Gill in June. Seeing a new neurologist in [place] Burt Jolley at [facility]. EMG at [facility]. showed severe peripheral neuropathy. Doing a new EMG next years with Dr. Jolley. PT-OP-C Subjective Start: 04/03/22 09:11 Freq: Status: Active Protocol: Document 07/14/22 12:59 [facility] (Rec: 07/14/22 13:43 [facility] [id number]) OP-PT Subjective Patient Comments Patient Comments Today has been a bad day; nausea worsening and SOB, fatigue. Breathing exercises helpful when feeling SOB. Trying to walk 10-15 min at least every other day. HR has been low for about a week. Sees croze cutter this Thursday. Went for short walk yesterday, exhausted after, had to help her in and out of car. PT-OP-D Balance Start: 04/03/22 09:11 Freq: Status: Active Protocol: Document 04/03/22 12:58 [facility] (Rec: 04/03/22 14:28 [facility] [id number]) Sheth Balance Assessment Evaluation Sitting to Standing Ability Independent w/out Hands Unsupported Stance Safely- 2 minutes Sitting Unsupported, Feet on Floor Safely- 2 minutes Standing to Sitting Ability Assist, Use Legs on Chair Transfer Ability Safely, Hand Use Unsupported Stance- Eyes Closed Safely, With Eyes Open Unsupported Stance- Eyes Open Supervision to maintain Reaching Forward Standing Safely, 5 inches Pick- Up Object From Floor Requires Assistance Look Behind Shoulder - Standing Supervision w/Turning Turning 360 Degrees Turns , < 4 secs Unsupported Stance, Alternating Feet on (I)- 8 Steps in > 20 secs Stair Unsupported Tandem Stance Balance Lost- Step/Stand Unilateral Leg Stance Lifts Leg/Holds > 3 secs Total Score Sheth Total Score (out of 56 points) 33 Tinetti Balance Assessment Sitting Balance Sitting Balance Steady, safe Arising from Chair Ability to Arise Able, uses arms to help Standing Balance Immediate Standing Balance Steady with support Standing Balance Steady, wide stance Nudged Response Staggers, catches self Standing with Eyes Closed Unsteady Turning Step Pattern Turning 360 Degrees Continuous steps Sitting Down Sitting Down Uses arms or unsteady Gait and Step Initiation of Gait Hesitancy, mult. attempts Right Foot Step Length Does not pass stance ft. Right Foot Step Height Does not clear floor Left Foot Step Length Does not pass stance foot Left Foot Step Height Does not clear floor Step Description Step Symmetry Step length appears equal Step Continuity Steps appear continuous Gait Description Path Description Straight Trunk Description Marked sway or uses aide Walking Stance Heels apart Scoring and Interpretation Tinetti Composite Score (points) 11 PT-OP-E Functional Tests Start: 04/03/22 09:11 Freq: Status: Active Protocol: Document 04/03/22 12:58 [facility] (Rec: 04/03/22 14:28 [facility] [id number]) Functional Tests 2 Minute Walk Test Distance 232 ft Device Used 4WW Five Times Sit to Stand Test Comments deferred due to fatigue Timed Up and Go (TUG) Comments deferred due to fatigue PT-OP-G Mobility & Gait Start: 04/03/22 09:11 Freq: Status: Active Protocol: Document 04/03/22 12:58 [facility] (Rec: 04/03/22 14:28 [facility] [id number]) OP Gait Assessment Gait Gait Assistance Required: Independent Distance (Feet) 232 Assistive Devices Assistive Device 4 Wheeled Walker Gait Deviations General Gait Pattern Decreased Stride Length, Decreased Feet Clearance,Wide Based Gait Factors Limiting Gait Function Factors Limiting Gait Function Decreased Activity Tolerance PT-OP-H Neuro Start: 04/03/22 09:11 Freq: Status: Active Protocol: Document 04/03/22 12:58 [facility] (Rec: 04/03/22 14:28 [facility] [id number]) Sensation Evaluation Gross Sensation Gross Sensation Left UE Impaired,Right UE Impaired,Left LE Impaired, Right LE Impaired Sensation Description Paresthesia PT-OP-J Posture/Palpation/Skin Start: 04/03/22 09:11 Freq: Status: Active Protocol: Document 04/03/22 12:58 [facility] (Rec: 04/03/22 14:28 [facility] [id number]) Posture Evaluation Position Standing Head/C-Spine Posture Forward Head T-Spine Posture Increased Kyphosis L-Spine Posture Increased Lordosis Shoulder Posture (L) Rounded,(R) Rounded Scapula Posture (L) Protracted,(R) Protracted Arm Posture (L) Internally Rotated,(R) Internally Rotated Pelvis Posture Anteriorly Tilted Knee Posture (L) Genu Varus Patellar Posture (L) Neutral Palpation Assessment Location left knee Palpation Location medial. Palpation Findings Tenderness PT-OP-M Strength Start: 04/03/22 09:11 Freq: Status: Active Protocol: Document 04/03/22 12:58 [facility] (Rec: 04/03/22 14:28 [facility] [id number]) Shoulder Strength Shoulder Manual Muscle Testing girma Comments functionally difficulty with lifting overhead due to weakness, no MMT due to fatigue after other testing Elbow/Forearm Strength Elbow and Forearm Manual Muscle Testing girma Comments difficulty lifting, not formally tested due to fatigue from other testing PT-OP-Q Treatments Start: 04/03/22 09:11 Freq: Status: Active Protocol: Document 07/14/22 12:59 [facility] (Rec: 07/14/22 13:43 [facility] [id number]) Cardio Equipment Recumbent Bicycle Resistance 1 Seat Position 2 Other 2 min , 1 min 40 sec Gym Equipment Shuttle Balance 2 Details red bal and wt shift f/b, side Reps/Duration 10 min Therapeutic Exercises Sitting Exercises hor ab Resistance L1 Reps/Minutes 10x row Resistance L1 Reps/Minutes 10x lateral trunk stretch Reps/Minutes 2x10 deep breathing Reps/Minutes 5x Comments cues for longer exhale, fully expanding all portions of lungs Gait Training Gait Activity 1 Description 2 min walk test Device Used 4WW Level of Assistance verbal cues Surface firm Distance/Duration 326 ft Treatment Focus speed, pacing Manual Therapy Treatment Taping left knee Treatment Focus pain management Type of Tape kinesiotape Skin Inspection intact Comments I strip from tibial tuberosity across medial joint line PT-OP-T Assessment and Plan Start: 04/03/22 09:11 Freq: Status: Active Protocol: Document 07/14/22 12:59 [facility] (Rec: 07/14/22 13:43 [facility] [id number]) Physical Therapy Assessment Goals Four Impairment general UE weakness Impairment unable to reach overhead for purposes of performing ADL's Supply Tech Goal (LTG) patient will improve her strength sufficient to allow her to reach overhead for purposes of ADL's LTG Duration 08/26/22 left knee pain Impairment left knee pain 4/10 Impairment limits activity Short Term Goal (STG) decrease pain to no greater than 2/10 07/02/22: good goal progress. Pain 2-4/10. Best decrease noted with kinesiotape of knee . STG Duration 07/29/22 Supply Tech Goal (LTG) decrease pain to no greater than 1/10 with all usual activities LTG Duration 08/26/22 Three Impairment balance dysfunction Impairment Sheth Balance score 33/56 indicating high fall risk activities-specific balance confidence (ABC) scale score 56% Short Term Goal (STG) Improve Sheth balance score to at least 40/56 as measure of improved safety with mobility Improve ABC score to at least 65% as measure of improved confidence in balance 05/20/22: goal met STG Duration goal met Supply Tech Goal (LTG) Patient will improve Sheth Balance score to at least 48/ 56 as measure of improved safety and decreased risk of falls Improve ABC score to at least 75% as measure of improved confidence in balance 07/02/22: good goal progress. Sheth balance score 41/56 LTG Duration 07/02/22 One Impairment activity tolerance Impairment 2 min walk test 232 ft, unable to do 6 min walk test due to fatigue Short Term Goal (STG) Improve 2 min walk test to 350 ft as measure of improved activity tolerance 05/20/22: increased to 267 ft 07/02/22: increased to 327 ft, good goal progress STG Duration 07/29/22 Residential Goal (LTG) Patient will be able to tolerate 6 min walk test without rest break as measure of improved activity tolerance . LTG Duration 08/26/22 Two Impairment fatigued after 2 min ambulation, Trendelenberg gait Supply Tech Goal (LTG) Patient able to walk without Trendelenberg gait at least 6 min 05/20/22: patient more aware but has difficulty correcting. 07/02/22: ambulation ability variable, limited today due to fatigue from trip to [place] . Trendelenberg persists. LTG Duration 07/02/22 Assessment Summary Assessment BP 128/74 and HR 67 after exercise. Mild SOB with recumbant bike and shuttle balance. Sees croze cutter this Thursday. Activity tolerance overall appears worsening. Physical Therapy Plan Frequency and Duration Frequency of Treatment 1x/Week Duration of treatment (weeks) 8 Plan of Care Start Date 07/03/22 Plan of Care End Date 08/26/22 Therapeutic Interventions Therapeutic Interventions Balance Training,Gait Training ,Home Exercise Program,Manual Therapy,Neuromuscular Re- education,Patient/Caregiver Education,Self-Care/Home Management,Soft Tissue Mobilization,Taping, Therapeutic Activities, Therapeutic Exercises Modalities Cold Pack/Ice Massage,Electric Stimulation,Hot Packs, Infrared Therapy,Ultrasound Next Visit Focus/Plan Next Note Type Treatment Note
--- NOTE | 2022-07-21 14:30 | PT.OTN ---
Current Diagnoses Polyneuropathy in diseases classified elsewhere (07/21/22) Muscle weakness (generalized) (07/21/22) Other abnormalities of gait and mobility (07/21/22) Other symptoms and signs involving the nervous system (07/21/22) Chronic fatigue, unspecified (07/21/22) History of falling (07/21/22) Physical Therapy Treatment Note PT-OP-A Visit Information Start: 04/03/22 09:11 Freq: Status: Active Protocol: Document 07/21/22 13:48 SAK (Rec: 07/21/22 14:30 [facility] [id number]) Out-Patient Physical Therapy Visit Information Visit Information Visit Type Treatment Note Visit Start Time 13:50 Visit Stop Time 14:30 Total Visit Minutes 40 Visit Number 15 Precautions Precautions Sjogren's, cardiac history, fatigues easily, PT-OP-B Current Condition Start: 04/03/22 09:11 Freq: Status: Active Protocol: Document 07/21/22 13:48 SAK (Rec: 07/21/22 14:30 [facility] [id number]) Current Condition History of Current Condition Onset Date October 30 Current Complaints weakness, balance difficulty History of Current Condition Long history of medical issues , most recently had been doing cardiac rehab, was able to walk 2-3 laps at [facility]. Came back from cruise and had Covid, hasn't recovered her physical ability since then; much slower pace, less distance, more fatigued. Energy level hasn't recovered. Has been to the ER several times for hernia, doctor reluctant to do surgery due to difficulty of recovery. Also having some left knee pain x 6 months. Breathing issues better with change in medication. Balance more impaired, no fall but feels less steady, skuffs feet, uses 4WW primarily, short distance with cane and holding onto someone. Numbness and tingling in hands are new. Stopped Prednisone due to weight gain and not feeling benefit. Prior Treatments and Tests left knee x-ray: bone on bone medial knee, seeing Dr. Gill in June. Seeing a new neurologist in [place] at [facility]. EMG at [facility]. showed severe peripheral neuropathy. Doing a new EMG next years with Dr. Jolley. PT-OP-C Subjective Start: 04/03/22 09:11 Freq: Status: Active Protocol: Document 07/21/22 13:48 SAK (Rec: 07/21/22 14:30 [facility] [id number]) OP-PT Subjective Patient Comments Patient Comments Saw human resources manager Thursday; she increased Isosorbide due to SOB but pharmacy didn't have in and has run out of another cardiac med. Hoping for improvement when receives her medication. Wants to be able to drive again. PT-OP-D Balance Start: 04/03/22 09:11 Freq: Status: Active Protocol: Document 04/03/22 12:58 [facility] (Rec: 04/03/22 14:28 [facility] [id number]) Sheth Balance Assessment Evaluation Sitting to Standing Ability Independent w/out Hands Unsupported Stance Safely- 2 minutes Sitting Unsupported, Feet on Floor Safely- 2 minutes Standing to Sitting Ability Assist, Use Legs on Chair Transfer Ability Safely, Hand Use Unsupported Stance- Eyes Closed Safely, With Eyes Open Unsupported Stance- Eyes Open Supervision to maintain Reaching Forward Standing Safely, 5 inches Pick- Up Object From Floor Requires Assistance Look Behind Shoulder - Standing Supervision w/Turning Turning 360 Degrees Turns , < 4 secs Unsupported Stance, Alternating Feet on (I)- 8 Steps in > 20 secs Stair Unsupported Tandem Stance Balance Lost- Step/Stand Unilateral Leg Stance Lifts Leg/Holds > 3 secs Total Score Sheth Total Score (out of 56 points) 33 Tinetti Balance Assessment Sitting Balance Sitting Balance Steady, safe Arising from Chair Ability to Arise Able, uses arms to help Standing Balance Immediate Standing Balance Steady with support Standing Balance Steady, wide stance Nudged Response Staggers, catches self Standing with Eyes Closed Unsteady Turning Step Pattern Turning 360 Degrees Continuous steps Sitting Down Sitting Down Uses arms or unsteady Gait and Step Initiation of Gait Hesitancy, mult. attempts Right Foot Step Length Does not pass stance ft. Right Foot Step Height Does not clear floor Left Foot Step Length Does not pass stance foot Left Foot Step Height Does not clear floor Step Description Step Symmetry Step length appears equal Step Continuity Steps appear continuous Gait Description Path Description Straight Trunk Description Marked sway or uses aide Walking Stance Heels apart Scoring and Interpretation Tinetti Composite Score (points) 11 PT-OP-E Functional Tests Start: 04/03/22 09:11 Freq: Status: Active Protocol: Document 04/03/22 12:58 [facility] (Rec: 04/03/22 14:28 [facility] [id number]) Functional Tests 2 Minute Walk Test Distance 232 ft Device Used 4WW Five Times Sit to Stand Test Comments deferred due to fatigue Timed Up and Go (TUG) Comments deferred due to fatigue PT-OP-G Mobility & Gait Start: 04/03/22 09:11 Freq: Status: Active Protocol: Document 04/03/22 12:58 [facility] (Rec: 04/03/22 14:28 [facility] [id number]) OP Gait Assessment Gait Gait Assistance Required: Independent Distance (Feet) 232 Assistive Devices Assistive Device 4 Wheeled Walker Gait Deviations General Gait Pattern Decreased Stride Length, Decreased Feet Clearance,Wide Based Gait Factors Limiting Gait Function Factors Limiting Gait Function Decreased Activity Tolerance PT-OP-H Neuro Start: 04/03/22 09:11 Freq: Status: Active Protocol: Document 04/03/22 12:58 [facility] (Rec: 04/03/22 14:28 [facility] [id number]) Sensation Evaluation Gross Sensation Gross Sensation Left UE Impaired,Right UE Impaired,Left LE Impaired, Right LE Impaired Sensation Description Paresthesia PT-OP-J Posture/Palpation/Skin Start: 04/03/22 09:11 Freq: Status: Active Protocol: Document 04/03/22 12:58 [facility] (Rec: 04/03/22 14:28 [facility] [id number]) Posture Evaluation Position Standing Head/C-Spine Posture Forward Head T-Spine Posture Increased Kyphosis L-Spine Posture Increased Lordosis Shoulder Posture (L) Rounded,(R) Rounded Scapula Posture (L) Protracted,(R) Protracted Arm Posture (L) Internally Rotated,(R) Internally Rotated Pelvis Posture Anteriorly Tilted Knee Posture (L) Genu Varus Patellar Posture (L) Neutral Palpation Assessment Location left knee Palpation Location medial. Palpation Findings Tenderness PT-OP-M Strength Start: 04/03/22 09:11 Freq: Status: Active Protocol: Document 04/03/22 12:58 [facility] (Rec: 04/03/22 14:28 [facility] [id number]) Shoulder Strength Shoulder Manual Muscle Testing girma Comments functionally difficulty with lifting overhead due to weakness, no MMT due to fatigue after other testing Elbow/Forearm Strength Elbow and Forearm Manual Muscle Testing girma Comments difficulty lifting, not formally tested due to fatigue from other testing PT-OP-Q Treatments Start: 04/03/22 09:11 Freq: Status: Active Protocol: Document 07/21/22 13:48 [facility] (Rec: 07/21/22 14:30 [facility] [id number]) Therapeutic Exercises Standing Exercises sidestepping Reps/Minutes 10 ft x 2 Manual Therapy Treatment Taping left knee Treatment Focus pain management Type of Tape kinesiotape Skin Inspection intact Comments I strip from tibial tuberosity across medial joint line PT-OP-T Assessment and Plan Start: 04/03/22 09:11 Freq: Status: Active Protocol: Document 07/21/22 13:48 [facility] (Rec: 07/21/22 14:30 [facility] [id number]) Physical Therapy Assessment Goals Four Impairment general UE weakness Impairment unable to reach overhead for purposes of performing ADL's Pasteurizer Goal (LTG) patient will improve her strength sufficient to allow her to reach overhead for purposes of ADL's LTG Duration 08/26/22 left knee pain Impairment left knee pain 4/10 Impairment limits activity Short Term Goal (STG) decrease pain to no greater than 2/10 07/02/22: good goal progress. Pain 2-4/10. Best decrease noted with kinesiotape of knee . STG Duration 07/29/22 Pasteurizer Goal (LTG) decrease pain to no greater than 1/10 with all usual activities LTG Duration 08/26/22 Three Impairment balance dysfunction Impairment Sheth Balance score 33/56 indicating high fall risk activities-specific balance confidence (ABC) scale score 56% Short Term Goal (STG) Improve Sheth balance score to at least 40/56 as measure of improved safety with mobility Improve ABC score to at least 65% as measure of improved confidence in balance 05/20/22: goal met STG Duration goal met Pasteurizer Goal (LTG) Patient will improve Sheth Balance score to at least 48/ 56 as measure of improved safety and decreased risk of falls Improve ABC score to at least 75% as measure of improved confidence in balance 07/02/22: good goal progress. Sheth balance score 41/56 LTG Duration 07/02/22 One Impairment activity tolerance Impairment 2 min walk test 232 ft, unable to do 6 min walk test due to fatigue Short Term Goal (STG) Improve 2 min walk test to 350 ft as measure of improved activity tolerance 05/20/22: increased to 267 ft 07/02/22: increased to 327 ft, good goal progress STG Duration 07/29/22 Assisted Goal (LTG) Patient will be able to tolerate 6 min walk test without rest break as measure of improved activity tolerance . LTG Duration 08/26/22 Two Impairment fatigued after 2 min ambulation, Trendelenberg gait Pasteurizer Goal (LTG) Patient able to walk without Trendelenberg gait at least 6 min 05/20/22: patient more aware but has difficulty correcting. 07/02/22: ambulation ability variable, limited today due to fatigue from trip to [place] . Trendelenberg persists. LTG Duration 07/02/22 Assessment Summary Assessment BP stable, improved balance on shuttle balance. SOB persists, anticipate improvement with medication. Physical Therapy Plan Frequency and Duration Frequency of Treatment 1x/Week Duration of treatment (weeks) 8 Plan of Care Start Date 07/03/22 Plan of Care End Date 08/26/22 Therapeutic Interventions Therapeutic Interventions Balance Training,Gait Training ,Home Exercise Program,Manual Therapy,Neuromuscular Re- education,Patient/Caregiver Education,Self-Care/Home Management,Soft Tissue Mobilization,Taping, Therapeutic Activities, Therapeutic Exercises Modalities Cold Pack/Ice Massage,Electric Stimulation,Hot Packs, Infrared Therapy,Ultrasound Next Visit Focus/Plan Next Note Type Treatment Note Next Visit Plan Further exercise bike progression, challenged gait, functional strengthening. Continue breathing exercises
--- NOTE | 2022-07-31 09:46 | PT.OTN ---
Current Diagnoses Polyneuropathy in diseases classified elsewhere (07/31/22) Muscle weakness (generalized) (07/31/22) Other abnormalities of gait and mobility (07/31/22) Other symptoms and signs involving the nervous system (07/31/22) Chronic fatigue, unspecified (07/31/22) History of falling (07/31/22) Physical Therapy Treatment Note PT-OP-A Visit Information Start: 04/03/22 09:11 Freq: Status: Active Protocol: Document 07/31/22 09:03 SAK (Rec: 07/31/22 09:46 [facility] [id number]) Out-Patient Physical Therapy Visit Information Visit Information Visit Type Treatment Note Visit Start Time 09:04 Visit Stop Time 09:44 Total Visit Minutes 40 Visit Number 16 Precautions Precautions Sjogren's, cardiac history, fatigues easily, PT-OP-B Current Condition Start: 04/03/22 09:11 Freq: Status: Active Protocol: Document 07/31/22 09:03 SAK (Rec: 07/31/22 09:46 SAK [id number]) Current Condition History of Current Condition Onset Date October 30 Current Complaints weakness, balance difficulty History of Current Condition Long history of medical issues , most recently had been doing cardiac rehab, was able to walk 2-3 laps at [facility]. Came back from cruise and had Covid, hasn't recovered her physical ability since then; much slower pace, less distance, more fatigued. Energy level hasn't recovered. Has been to the ER several times for hernia, doctor reluctant to do surgery due to difficulty of recovery. Also having some left knee pain x 6 months. Breathing issues better with change in medication. Balance more impaired, no fall but feels less steady, skuffs feet, uses 4WW primarily, short distance with cane and holding onto someone. Numbness and tingling in hands are new. Stopped Prednisone due to weight gain and not feeling benefit. Prior Treatments and Tests left knee x-ray: bone on bone medial knee, seeing Dr. Gill in June. Seeing a new neurologist in [place] Burt Jolley at [facility]. EMG at [facility]. showed severe peripheral neuropathy. Doing a new EMG next years with Dr. Jolley. PT-OP-C Subjective Start: 04/03/22 09:11 Freq: Status: Active Protocol: Document 07/31/22 09:03 [facility] (Rec: 07/31/22 09:46 [facility] [id number]) OP-PT Subjective Patient Comments Patient Comments SOB continues despite change in Isosorbide. States breathing ex have helped her to not gasp for breath as she did previously. Pulmonary function test done 07/24/22; normal pulmonary function, mild neuromuscular disease. Pulmonary rehab has been recommended. Sees neurologist at [facility] on Thursday for injections in neck. Knee bothering her more PT-OP-D Balance Start: 04/03/22 09:11 Freq: Status: Active Protocol: Document 04/03/22 12:58 [facility] (Rec: 04/03/22 14:28 [facility] [id number]) Sheth Balance Assessment Evaluation Sitting to Standing Ability Independent w/out Hands Unsupported Stance Safely- 2 minutes Sitting Unsupported, Feet on Floor Safely- 2 minutes Standing to Sitting Ability Assist, Use Legs on Chair Transfer Ability Safely, Hand Use Unsupported Stance- Eyes Closed Safely, With Eyes Open Unsupported Stance- Eyes Open Supervision to maintain Reaching Forward Standing Safely, 5 inches Pick- Up Object From Floor Requires Assistance Look Behind Shoulder - Standing Supervision w/Turning Turning 360 Degrees Turns , < 4 secs Unsupported Stance, Alternating Feet on (I)- 8 Steps in > 20 secs Stair Unsupported Tandem Stance Balance Lost- Step/Stand Unilateral Leg Stance Lifts Leg/Holds > 3 secs Total Score Sheth Total Score (out of 56 points) 33 Tinetti Balance Assessment Sitting Balance Sitting Balance Steady, safe Arising from Chair Ability to Arise Able, uses arms to help Standing Balance Immediate Standing Balance Steady with support Standing Balance Steady, wide stance Nudged Response Staggers, catches self Standing with Eyes Closed Unsteady Turning Step Pattern Turning 360 Degrees Continuous steps Sitting Down Sitting Down Uses arms or unsteady Gait and Step Initiation of Gait Hesitancy, mult. attempts Right Foot Step Length Does not pass stance ft. Right Foot Step Height Does not clear floor Left Foot Step Length Does not pass stance foot Left Foot Step Height Does not clear floor Step Description Step Symmetry Step length appears equal Step Continuity Steps appear continuous Gait Description Path Description Straight Trunk Description Marked sway or uses aide Walking Stance Heels apart Scoring and Interpretation Tinetti Composite Score (points) 11 PT-OP-E Functional Tests Start: 04/03/22 09:11 Freq: Status: Active Protocol: Document 04/03/22 12:58 [facility] (Rec: 04/03/22 14:28 [facility] [id number]) Functional Tests 2 Minute Walk Test Distance 232 ft Device Used 4WW Five Times Sit to Stand Test Comments deferred due to fatigue Timed Up and Go (TUG) Comments deferred due to fatigue PT-OP-G Mobility & Gait Start: 04/03/22 09:11 Freq: Status: Active Protocol: Document 04/03/22 12:58 [facility] (Rec: 04/03/22 14:28 [facility] [id number]) OP Gait Assessment Gait Gait Assistance Required: Independent Distance (Feet) 232 Assistive Devices Assistive Device 4 Wheeled Walker Gait Deviations General Gait Pattern Decreased Stride Length, Decreased Feet Clearance,Wide Based Gait Factors Limiting Gait Function Factors Limiting Gait Function Decreased Activity Tolerance PT-OP-H Neuro Start: 04/03/22 09:11 Freq: Status: Active Protocol: Document 04/03/22 12:58 [facility] (Rec: 04/03/22 14:28 [facility] [id number]) Sensation Evaluation Gross Sensation Gross Sensation Left UE Impaired,Right UE Impaired,Left LE Impaired, Right LE Impaired Sensation Description Paresthesia PT-OP-J Posture/Palpation/Skin Start: 04/03/22 09:11 Freq: Status: Active Protocol: Document 04/03/22 12:58 [facility] (Rec: 04/03/22 14:28 [facility] [id number]) Posture Evaluation Position Standing Head/C-Spine Posture Forward Head T-Spine Posture Increased Kyphosis L-Spine Posture Increased Lordosis Shoulder Posture (L) Rounded,(R) Rounded Scapula Posture (L) Protracted,(R) Protracted Arm Posture (L) Internally Rotated,(R) Internally Rotated Pelvis Posture Anteriorly Tilted Knee Posture (L) Genu Varus Patellar Posture (L) Neutral Palpation Assessment Location left knee Palpation Location medial. Palpation Findings Tenderness PT-OP-M Strength Start: 04/03/22 09:11 Freq: Status: Active Protocol: Document 04/03/22 12:58 [facility] (Rec: 04/03/22 14:28 [facility] [id number]) Shoulder Strength Shoulder Manual Muscle Testing girma Comments functionally difficulty with lifting overhead due to weakness, no MMT due to fatigue after other testing Elbow/Forearm Strength Elbow and Forearm Manual Muscle Testing girma Comments difficulty lifting, not formally tested due to fatigue from other testing PT-OP-Q Treatments Start: 04/03/22 09:11 Freq: Status: Active Protocol: Document 07/31/22 09:03 [facility] (Rec: 07/31/22 09:46 [facility] [id number]) Cardio Equipment Recumbent Bicycle Resistance 1 Seat Position 2 Other 2 min , 2 min Gym Equipment Shuttle Balance 2 Details red bal and wt shift f/b, side Reps/Duration 10 min Gait Training Gait Activity 1 Description 2 min walk test Device Used 4WW Level of Assistance verbal cues Surface firm Distance/Duration 222 ft Treatment Focus speed, pacing Manual Therapy Treatment Taping left knee Treatment Focus pain management Type of Tape kinesiotape Skin Inspection intact Comments I strip from tibial tuberosity across medial joint line PT-OP-T Assessment and Plan Start: 04/03/22 09:11 Freq: Status: Active Protocol: Document 07/31/22 09:03 [facility] (Rec: 07/31/22 09:46 [facility] [id number]) Physical Therapy Assessment Goals Four Impairment general UE weakness Impairment unable to reach overhead for purposes of performing ADL's [facility] Goal (LTG) patient will improve her strength sufficient to allow her to reach overhead for purposes of ADL's LTG Duration 08/26/22 left knee pain Impairment left knee pain 4/10 Impairment limits activity Short Term Goal (STG) decrease pain to no greater than 2/10 07/02/22: good goal progress. Pain 2-4/10. Best decrease noted with kinesiotape of knee . STG Duration 07/29/22 [facility] Goal (LTG) decrease pain to no greater than 1/10 with all usual activities LTG Duration 08/26/22 Three Impairment balance dysfunction Impairment Sheth Balance score 33/56 indicating high fall risk activities-specific balance confidence (ABC) scale score 56% Short Term Goal (STG) Improve Sheth balance score to at least 40/56 as measure of improved safety with mobility Improve ABC score to at least 65% as measure of improved confidence in balance 05/20/22: goal met STG Duration goal met [facility] Goal (LTG) Patient will improve Sheth Balance score to at least 48/ 56 as measure of improved safety and decreased risk of falls Improve ABC score to at least 75% as measure of improved confidence in balance 07/02/22: good goal progress. Sheth balance score 41/56 LTG Duration 07/02/22 One Impairment activity tolerance Impairment 2 min walk test 232 ft, unable to do 6 min walk test due to fatigue Short Term Goal (STG) Improve 2 min walk test to 350 ft as measure of improved activity tolerance 05/20/22: increased to 267 ft 07/02/22: increased to 327 ft, good goal progress STG Duration 07/29/22 [employer] Goal (LTG) Patient will be able to tolerate 6 min walk test without rest break as measure of improved activity tolerance . LTG Duration 08/26/22 Two Impairment fatigued after 2 min ambulation, Trendelenberg gait [employer] Goal (LTG) Patient able to walk without Trendelenberg gait at least 6 min 05/20/22: patient more aware but has difficulty correcting. 07/02/22: ambulation ability variable, limited today due to fatigue from trip to [place] . Trendelenberg persists. LTG Duration 07/02/22 Assessment Summary Assessment Increased pain in knee. Physical Therapy Plan Frequency and Duration Frequency of Treatment 1x/Week Duration of treatment (weeks) 8 Plan of Care Start Date 07/03/22 Plan of Care End Date 08/26/22 Therapeutic Interventions Therapeutic Interventions Balance Training,Gait Training ,Home Exercise Program,Manual Therapy,Neuromuscular Re- education,Patient/Caregiver Education,Self-Care/Home Management,Soft Tissue Mobilization,Taping, Therapeutic Activities, Therapeutic Exercises Modalities Cold Pack/Ice Massage,Electric Stimulation,Hot Packs, Infrared Therapy,Ultrasound Next Visit Focus/Plan Next Note Type Treatment Note Next Visit Plan gait in parallel bars with mirror for visual feedback. 2 min walk test. Review ther ex for knee.
--- NOTE | 2022-08-05 17:05 | PT.OTN ---
Current Diagnoses Polyneuropathy in diseases classified elsewhere (08/05/22) Muscle weakness (generalized) (08/05/22) Other abnormalities of gait and mobility (08/05/22) Other symptoms and signs involving the nervous system (08/05/22) Chronic fatigue, unspecified (08/05/22) History of falling (08/05/22) Physical Therapy Treatment Note PT-OP-A Visit Information Start: 04/03/22 09:11 Freq: Status: Active Protocol: Document 08/05/22 10:32 SAK (Rec: 08/05/22 11:12 [facility] [id number]) Out-Patient Physical Therapy Visit Information Visit Information Visit Type Treatment Note Visit Start Time 10:32 Visit Stop Time 11:14 Total Visit Minutes 42 Visit Number 16 Number of SURGICAL FIRST ASSISTANT Visits 17 Precautions Precautions Sjogren's, cardiac history, fatigues easily, PT-OP-B Current Condition Start: 04/03/22 09:11 Freq: Status: Active Protocol: Document 08/05/22 10:32 SAK (Rec: 08/05/22 11:12 [facility] [id number]) Current Condition History of Current Condition Onset Date October 30 Current Complaints weakness, balance difficulty History of Current Condition Long history of medical issues , most recently had been doing cardiac rehab, was able to walk 2-3 laps at [facility]. Came back from cruise and had Covid, hasn't recovered her physical ability since then; much slower pace, less distance, more fatigued. Energy level hasn't recovered. Has been to the ER several times for hernia, doctor reluctant to do surgery due to difficulty of recovery. Also having some left knee pain x 6 months. Breathing issues better with change in medication. Balance more impaired, no fall but feels less steady, skuffs feet, uses 4WW primarily, short distance with cane and holding onto someone. Numbness and tingling in hands are new. Stopped Prednisone due to weight gain and not feeling benefit. Prior Treatments and Tests left knee x-ray: bone on bone medial knee, seeing Dr. Gill in June. Seeing a new neurologist in [place] Burt Jolley at [facility]. EMG at [facility]. showed severe peripheral neuropathy. Doing a new EMG next years with Dr. Jolley. PT-OP-C Subjective Start: 04/03/22 09:11 Freq: Status: Active Protocol: Document 08/05/22 10:32 [facility]AK (Rec: 08/05/22 11:12 [facility]AK [id number]) OP-PT Subjective Patient Comments Patient Comments Has pulmonary rehab intake, starting tomorrow. Saw [facility] neurologist yesterday, glad she is getting the other testing because thinks pulmonary function is due to neuromuscular issues. Went to [place] Thursday, took walks Thursday and Thursday; short but pleased able to get out PT-OP-D Balance Start: 04/03/22 09:11 Freq: Status: Active Protocol: Document 04/03/22 12:58 [facility]AK (Rec: 04/03/22 14:28 [facility]AK [id number]) Sheth Balance Assessment Evaluation Sitting to Standing Ability Independent w/out Hands Unsupported Stance Safely- 2 minutes Sitting Unsupported, Feet on Floor Safely- 2 minutes Standing to Sitting Ability Assist, Use Legs on Chair Transfer Ability Safely, Hand Use Unsupported Stance- Eyes Closed Safely, With Eyes Open Unsupported Stance- Eyes Open Supervision to maintain Reaching Forward Standing Safely, 5 inches Pick- Up Object From Floor Requires Assistance Look Behind Shoulder - Standing Supervision w/Turning Turning 360 Degrees Turns , < 4 secs Unsupported Stance, Alternating Feet on (I)- 8 Steps in > 20 secs Stair Unsupported Tandem Stance Balance Lost- Step/Stand Unilateral Leg Stance Lifts Leg/Holds > 3 secs Total Score Sheth Total Score (out of 56 points) 33 Tinetti Balance Assessment Sitting Balance Sitting Balance Steady, safe Arising from Chair Ability to Arise Able, uses arms to help Standing Balance Immediate Standing Balance Steady with support Standing Balance Steady, wide stance Nudged Response Staggers, catches self Standing with Eyes Closed Unsteady Turning Step Pattern Turning 360 Degrees Continuous steps Sitting Down Sitting Down Uses arms or unsteady Gait and Step Initiation of Gait Hesitancy, mult. attempts Right Foot Step Length Does not pass stance ft. Right Foot Step Height Does not clear floor Left Foot Step Length Does not pass stance foot Left Foot Step Height Does not clear floor Step Description Step Symmetry Step length appears equal Step Continuity Steps appear continuous Gait Description Path Description Straight Trunk Description Marked sway or uses aide Walking Stance Heels apart Scoring and Interpretation Tinetti Composite Score (points) 11 PT-OP-E Functional Tests Start: 04/03/22 09:11 Freq: Status: Active Protocol: Document 04/03/22 12:58 [facility] (Rec: 04/03/22 14:28 [facility] [id number]) Functional Tests 2 Minute Walk Test Distance 232 ft Device Used 4WW Five Times Sit to Stand Test Comments deferred due to fatigue Timed Up and Go (TUG) Comments deferred due to fatigue PT-OP-G Mobility & Gait Start: 04/03/22 09:11 Freq: Status: Active Protocol: Document 04/03/22 12:58 [facility] (Rec: 04/03/22 14:28 [facility] [id number]) OP Gait Assessment Gait Gait Assistance Required: Independent Distance (Feet) 232 Assistive Devices Assistive Device 4 Wheeled Walker Gait Deviations General Gait Pattern Decreased Stride Length, Decreased Feet Clearance,Wide Based Gait Factors Limiting Gait Function Factors Limiting Gait Function Decreased Activity Tolerance PT-OP-H Neuro Start: 04/03/22 09:11 Freq: Status: Active Protocol: Document 04/03/22 12:58 [facility] (Rec: 04/03/22 14:28 [facility] [id number]) Sensation Evaluation Gross Sensation Gross Sensation Left UE Impaired,Right UE Impaired,Left LE Impaired, Right LE Impaired Sensation Description Paresthesia PT-OP-J Posture/Palpation/Skin Start: 04/03/22 09:11 Freq: Status: Active Protocol: Document 04/03/22 12:58 [facility] (Rec: 04/03/22 14:28 [facility] [id number]) Posture Evaluation Position Standing Head/C-Spine Posture Forward Head T-Spine Posture Increased Kyphosis L-Spine Posture Increased Lordosis Shoulder Posture (L) Rounded,(R) Rounded Scapula Posture (L) Protracted,(R) Protracted Arm Posture (L) Internally Rotated,(R) Internally Rotated Pelvis Posture Anteriorly Tilted Knee Posture (L) Genu Varus Patellar Posture (L) Neutral Palpation Assessment Location left knee Palpation Location medial. Palpation Findings Tenderness PT-OP-M Strength Start: 04/03/22 09:11 Freq: Status: Active Protocol: Document 04/03/22 12:58 [facility] (Rec: 04/03/22 14:28 [facility] [id number]) Shoulder Strength Shoulder Manual Muscle Testing girma Comments functionally difficulty with lifting overhead due to weakness, no MMT due to fatigue after other testing Elbow/Forearm Strength Elbow and Forearm Manual Muscle Testing girma Comments difficulty lifting, not formally tested due to fatigue from other testing PT-OP-Q Treatments Start: 04/03/22 09:11 Freq: Status: Active Protocol: Document 08/05/22 10:32 [facility]AK (Rec: 08/05/22 11:12 [facility] [id number]) Gym Equipment Shuttle Balance 2 Details red bal and wt shift f/b, side Reps/Duration 10 min Gait Training Gait Activity no device Description forward, sideways Distance/Duration 10' x 2 each Treatment Focus hip stability Comments parallel bars Manual Therapy Treatment Taping left knee Treatment Focus pain management Type of Tape kinesiotape Skin Inspection intact Comments I strip from tibial tuberosity across medial joint line PT-OP-T Assessment and Plan Start: 04/03/22 09:11 Freq: Status: Active Protocol: Document 08/05/22 10:32 [facility] (Rec: 08/05/22 11:12 [facility] [id number]) Physical Therapy Assessment Goals Four Impairment general UE weakness Impairment unable to reach overhead for purposes of performing ADL's [employer] Goal (LTG) patient will improve her strength sufficient to allow her to reach overhead for purposes of ADL's 08/05/22: goal plrogress LTG Duration 08/26/22 left knee pain Impairment left knee pain 4/10 Impairment limits activity Short Term Goal (STG) decrease pain to no greater than 2/10 07/02/22: good goal progress. Pain 2-4/10. Best decrease noted with kinesiotape of knee . 08/05/22: increased pain recently, no known reason STG Duration 07/29/22 [facility] [employer] Goal (LTG) decrease pain to no greater than 1/10 with all usual activities LTG Duration 08/26/22 Three Impairment balance dysfunction Impairment Sheth Balance score 33/56 indicating high fall risk activities-specific balance confidence (ABC) scale score 56% Short Term Goal (STG) Improve Sheth balance score to at least 40/56 as measure of improved safety with mobility Improve ABC score to at least 65% as measure of improved confidence in balance 05/20/22: goal met STG Duration goal met [facility] Goal (LTG) Patient will improve Sheth Balance score to at least 48/ 56 as measure of improved safety and decreased risk of falls Improve ABC score to at least 75% as measure of improved confidence in balance 07/02/22: good goal progress. Sheth balance score 41/56 08/05/22: Sheth balance score improved to 45/56 LTG Duration 08/26/22 One Impairment activity tolerance Impairment 2 min walk test 232 ft, unable to do 6 min walk test due to fatigue Short Term Goal (STG) Improve 2 min walk test to 350 ft as measure of improved activity tolerance 05/20/22: increased to 267 ft 07/02/22: increased to 327 ft, good goal progress STG Duration 07/29/22 [facility] Psych[facility] Goal (LTG) Patient will be able to tolerate 6 min walk test without rest break as measure of improved activity tolerance . 08/05/22: was able to tolerate during pulmonary rehab intake yesterday LTG Duration 08/26/22 Two Impairment fatigued after 2 min ambulation, Trendelenberg gait Sport Psychologist Goal (LTG) Patient able to walk without Trendelenberg gait at least 6 min 05/20/22: patient more aware but has difficulty correcting. 07/02/22: ambulation ability variable, limited today due to fatigue from trip to [place] . Trendelenberg persists. 08/05/22: able to self-correct for short distance in parallel bars with visual feedback but has difficulty correcting due to extreme fatigue during the day LTG Duration 08/26/22 Assessment Summary Assessment Patient going to start pulmonary rehab tomorrow. Will discharge from PT as that program is 12 week. Patient has made some progress toward goals. Due to cardiac, pulmonary, and neuromuscular issues progress has been slow. She may follow-up with PT after completing 12 weeks of pulmonary rehab. Physical Therapy Plan Discharge Physical Therapy Discharge Comments starting pulmonary rehab tomorrow.
== END 2022-09-26 11:43 | disposition home or self-care (01) ==
LOC: PHYS 10:30
PROVIDERS: Family Provider Nurse Practitioner; PCP Nurse Practitioner; Referring Provider Nurse Practitioner; Visit Provider Nurse Practitioner
DX: R53.82 Chronic fatigue, unspecified (principal); R29.818 Other symptoms and signs involving the nervous system; G63 Polyneuropathy in diseases classified elsewhere; R26.89 Other abnormalities of gait and mobility; Z91.81 History of falling; M62.81 Muscle weakness (generalized)
CPT/HCPCS: 93010; 97110; 97112; 97116; 97140; 97163; 97535

== ENCOUNTER → 2022-08-21 09:18 | Outpatient (CLI) | payer MEDICARE, BC, SELFPAY ==
[2022-03-17 12:58] VITALS: BMI 33.3
[2022-08-21 10:31] LABS: Influenza A - CEPHEID Flu A NEGATIVE (NEGATIVE); Influenza B - CEPHEID Flu B NEGATIVE (NEGATIVE); Respiratory Syncytial Virus Negative (Negative)
[2022-08-21 10:32] LABS: COVID-19 CEPHEID 4-PLEX PCR POSITIVE (Negative)
== END ==
PROVIDERS: Family Provider Nurse Practitioner; PCP Nurse Practitioner; Visit Provider Registered Nurse
DX: U07.1 COVID-19 (principal); R05.1 Acute cough; Z20.822 Contact with and (suspected) exposure to COVID-19
CPT/HCPCS: 0241U

== ENCOUNTER → 2022-11-19 10:45 | Outpatient (CLI) | payer MEDICARE, BC, SELFPAY ==
[2022-03-17 12:58] VITALS: BMI 33.3
--- NOTE | 2022-11-19 10:46 | DI.CT.S_ITS ---
PROCEDURE: CT HEAD/BRAIN WO CON INDICATIONS: pressure in head, memory loss (acute, transient) TECHNIQUE: Noncontrast 4.5 mm thick angled axial sections acquired from the foramen magnum to the vertex, with coronal and sagittal reformats. For radiation dose reduction, the following was used: automated exposure control, adjustment of mA and/or kV according to patient size. COMPARISON: [facility], CT, CT HEAD/BRAIN W CON, 02/10/2020, 14:17. [facility], CT, CT HEAD/BRAIN WO CON, 11/10/2018, 19:56. FINDINGS: Image quality: Excellent. CSF spaces: Basal cisterns are patent. No extra-axial fluid collections. The ventricles are symmetric in size and shape. Brain: No intracranial bleeds or masses. There is cerebral volume loss for age, with resultant ventricular and sulcal prominence. There are periventricular and deep white matter chronic small vessel ischemic changes. There is intracranial internal carotid artery atherosclerosis. Skull and face: Calvarium and visualized facial bones appear intact, without suspicious lesions. Sinuses: An air-fluid level is seen within the left maxillary sinus. The paranasal sinuses otherwise appear clear. No abnormal fluid is seen within the mastoid air cells. IMPRESSION: No acute intracranial process is seen. Note is made of age-appropriate brain parenchymal volume loss and chronic small vessel ischemic changes. Air-fluid level again seen within the left maxillary sinus. Dictated by: Juan Ramon Diana M.D. on 11/19/2022 at 10:36 Approved by: Juan Ramon Diana M.D. on 11/19/2022 at 10:38
== END ==
PROVIDERS: Family Provider Nurse Practitioner; PCP Nurse Practitioner; Referring Provider Nurse Practitioner; Visit Provider Nurse Practitioner
DX: R41.3 Other amnesia (principal); R51.9 Headache, unspecified
CPT/HCPCS: 70450

== ENCOUNTER 2022-12-04 08:30 | Outpatient (RCR) | payer MEDICARE, BC, SELFPAY ==
[2022-03-17 12:58] VITALS: BMI 33.3
== END 2022-12-04 10:30 ==
LOC: PUL 08:30
PROVIDERS: Family Provider Nurse Practitioner; PCP Nurse Practitioner; Referring Provider Nurse Practitioner; Visit Provider Nurse Practitioner
DX: R06.02 Shortness of breath (principal)
CPT/HCPCS: G0237; G0238

== ENCOUNTER → 2023-01-02 06:51 | Outpatient (CLI) | payer MEDICARE, BC, SELFPAY ==
[2022-12-08 17:04] VITALS: BMI 33.3
[2023-01-02 07:47] LABS: Add Manual Diff / Slide Review NO; Basophils Absolute Auto 100 /uL (0-100); Basophils Percent Auto 0.8 % (0-2); Eosinophils Absolute Auto 200 /uL (0-450); Eosinophils Percent Auto 3.7 % (2-4); Hematocrit 39.8 % (36-46); Hemoglobin 13.3 g/dL (12.0-16.0); Lymphocytes Absolute Auto 2000 /uL (1100-4500); Lymphocytes Percent Auto 30.6 % (25-40); Mean Corpuscular HGB Conc 33.4 % (30-36); Mean Corpuscular Hemoglobin 30.2 PG (26-34); Mean Corpuscular Volume 90.5 fL (80-100); Monocytes Absolute Auto 600 /uL (0-900); Monocytes Percent Auto 8.4 % (3-14); Neutrophils Absolute Auto 3800 /uL (1500-7000); Neutrophils Percent Auto 56.5 % (50-75); Platelet Count 230 X10^3/uL (150-400); Red Blood Cell Count 4.39 X10^6/uL (4.0-5.2); Red Cell Distribution Width 14.7 % (11.6-14.8); White Blood Cell Count 6.6 X10^3/uL (4.5-11.0)
[2023-01-02 08:02] LABS: HEMOLYSIS < 15 (0-50); Iron 92 ug/dL (37-170)
[2023-01-02 08:04] LABS: Alanine Aminotransferase 27 IU/L (<35); Albumin 4.2 g/dL (3.5-5.0); Albumin Globulin Ratio 1.8 (1.0-2.8); Alkaline Phosphatase 121 U/L (38-126); Aspartate Aminotransferase 22 IU/L (14-36); BUN Creatinine Ratio 18.1 (6-22); Bilirubin Total 0.7 mg/dL (0.2-1.3); Blood Urea Nitrogen 17 mg/dL (7-17); Calcium 9.7 mg/dL (8.4-10.2); Carbon Dioxide 25 mmol/L (22-32); Chloride 104 mmol/L (98-107); Cholesterol 155 mg/dL (140-199); Estimated Glomerular Filt Rate > 60 mL/min (>60); Globulin 2.4 g/dL (1.7-4.1); Glucose 99 mg/dL (80-110); HDL Cholesterol 49 mg/dL (40-60); HEMOLYSIS < 15 (0-50); LDL Cholesterol Calculated 77 mg/dL (<100); Potassium 4.2 mmol/L (3.4-5.1); Sodium 139 mmol/L (137-145); Total Protein 6.6 g/dL (6.3-8.2); Triglycerides 143 mg/dL (35-150)
[2023-01-02 08:13] LABS: Percent Iron Saturation 27 % (15-50); Total Iron Binding Capacity 335 ug/dL (265-497); Transferrin 250 mg/dL (206-381)
[2023-01-02 08:22] LABS: Free T3, Triiodothyronine Free 5.18 pg/mL (2.77-5.27); Free T4, Direct Thyroxine 0.91 ng/dL (0.78-2.19)
[2023-01-02 08:35] LABS: Thyroid Stimulating Hormone 2.23 uIU/mL (0.47-4.68)
[2023-01-02 08:56] LABS: Vitamin B12 > 1000 pg/mL (239-931)
== END ==
PROVIDERS: Family Provider Nurse Practitioner; PCP Nurse Practitioner; Referring Provider Nurse Practitioner; Visit Provider Nurse Practitioner
DX: E78.5 Hyperlipidemia, unspecified (principal); E88.40 Mitochondrial metabolism disorder, unspecified; G70.9 Myoneural disorder, unspecified; I10 Essential (primary) hypertension; K76.0 Fatty (change of) liver, not elsewhere classified; R53.83 Other fatigue; Z86.79 Personal history of other diseases of the circulatory system
CPT/HCPCS: 36415; 80053; 80061; 82607; 83540; 83550; 84439; 84443; 84481; 85025

== ENCOUNTER → 2023-02-09 08:07 | Outpatient (CLI) | payer MEDICARE, BC, SELFPAY ==
[2022-12-08 17:04] VITALS: BMI 33.3
== END ==
PROVIDERS: Family Provider Nurse Practitioner; PCP Nurse Practitioner; Visit Provider Physician Assistant
DX: K13.79 Other lesions of oral mucosa (principal)
CPT/HCPCS: 87070

== ENCOUNTER → 2023-02-26 06:52 | Outpatient (CLI) | payer MEDICARE, BC, SELFPAY ==
[2022-12-08 17:04] VITALS: BMI 33.3
[2023-02-26 08:28] LABS: Lactate (Lactic Acid) 1.2 mmol/L (0.7-2.1)
[2023-02-26 08:34] LABS: Alanine Aminotransferase 31 IU/L (<35); Albumin 4.3 g/dL (3.5-5.0); Albumin Globulin Ratio 1.8 (1.0-2.8); Alkaline Phosphatase 109 U/L (38-126); Aspartate Aminotransferase 23 IU/L (14-36); Bilirubin Total 0.4 mg/dL (0.2-1.3); Blood Urea Nitrogen 12 mg/dL (7-17); Calcium 9.9 mg/dL (8.4-10.2); Carbon Dioxide 24 mmol/L (22-32); Chloride 105 mmol/L (98-107); Estimated Glomerular Filt Rate > 60 mL/min (>60); Globulin 2.4 g/dL (1.7-4.1); Glucose 100 mg/dL (80-110); HEMOLYSIS < 15 (0-50); Potassium 4.1 mmol/L (3.4-5.1); Sodium 139 mmol/L (137-145); Total Protein 6.7 g/dL (6.3-8.2)
[2023-03-03 12:36] LABS: Carnitine, Free 31 umol/L (20-55); Esterified/Free Ratio 0.4 Ratio (0.0-0.9)
== END ==
PROVIDERS: Family Provider Nurse Practitioner; PCP Nurse Practitioner; Referring Provider Pediatrics; Visit Provider Pediatrics
DX: G72.9 Myopathy, unspecified (principal)
CPT/HCPCS: 36415; 80053; 82017; 82139; 82379; 83605; 83919

== ENCOUNTER → 2023-03-04 15:27 | Outpatient (CLI) | payer MEDICARE, BC, SELFPAY ==
[2022-12-08 17:04] VITALS: BMI 33.3
[2023-03-11 12:49] LABS: C10 0.11 umol/L (0.00-0.38); C10:2 0.03 umol/L (0.00-0.05); C12 0.04 umol/L (0.00-0.15); C14 0.02 umol/L (0.00-0.06); C14:1 0.04 umol/L (0.00-0.17); C14:2 0.03 umol/L (0.00-0.11); C16 0.08 umol/L (0.03-0.13); C16:1 0.02 umol/L (0.00-0.04); C18 0.03 umol/L (0.00-0.07); C18:2 0.05 umol/L (0.00-0.11); C2 4.37 umol/L (3.23-10.29); C3 0.27 umol/L (0.16-0.62); C3-DICARBOXYLIC 0.03 umol/L (0.02-0.12); C4 0.13 umol/L (0.08-0.32); C5 Hydroxy 0.02 umol/L (0.00-0.06); C5- Dicarboxylic 0.04 umol/L (0.00-0.10); C5:1 0.01 umol/L (0.00-0.02); C6 0.04 umol/L (0.00-0.10); C8 0.07 umol/L (0.00-0.27)
== END ==
PROVIDERS: Pediatrics; Family Provider Nurse Practitioner; PCP Nurse Practitioner; Referring Provider Nurse Practitioner; Visit Provider Nurse Practitioner
DX: G72.9 Myopathy, unspecified (principal)
CPT/HCPCS: 82017

== ENCOUNTER → 2023-04-08 15:52 | Outpatient (CLI) | payer MEDICARE, BC, SELFPAY ==
[2022-12-08 17:04] VITALS: BMI 33.3
--- NOTE | 2023-04-08 15:53 | DI.MRI.S_ITS ---
PROCEDURE: MR AB PANCREATIC/MRCP PROTOCOL INDICATIONS: monitor IPMN TECHNIQUE: Coronal HASTE through the abdomen, axial 2-D FLASH in- and [id number], and breath-hold T2 FSE with fat saturation through the biliary system and pancreas. Oblique coronal and axial thin-slice HASTE, radial thick-slab HASTE centered on the extrahepatic bile ducts. Intravenous secretin: Not requested. COMPARISON: [facility], CT, CT ABDOMEN PELVIS W CON, 11/08/2017, 15:03. FINDINGS: Image quality: Excellent. Liver: No solid mass. Gallbladder and biliary tree: Cholecystectomy. Biliary tree is within normal limits, status post cholecystectomy. Spleen: Normal size. Pancreas: 1.5 centimeter cystic lesion in the pancreatic body, previously measuring 0.8 centimeters in 2018. Close association to the pancreatic duct. No internal nodularity. Adrenal glands: Stable 1.5 centimeter left adrenal nodule compared with 2018, therefore statistically benign. Kidneys: No hydronephrosis. No solid mass. No complex renal cysts which requires follow-up. Nodes and vessels: No retroperitoneal or mesenteric adenopathy by size criteria. Aorta and inferior vena cava are normal in size. Bowel and peritoneum: Unenhanced bowel loops are normal in caliber. No free fluid. Lung bases: No basal pleural effusions. Heart size is normal. Bones and soft tissues: No ventral hernias. Bone marrow is of normal overall signal. IMPRESSION: Interval growth of the 1.5 centimeters cystic lesion in the pancreatic body compared with 2018. Recommend GI referral for endoscopic evaluation. No suspicious features. No nodularity or ductal dilation. Dictated by: Heriberto Weaver M.D. on 04/09/2023 at 8:44 Approved by: Heriberto Weaver M.D. on 04/09/2023 at 9:00
== END ==
PROVIDERS: Family Provider Nurse Practitioner; PCP Nurse Practitioner; Referring Provider Nurse Practitioner; Visit Provider Nurse Practitioner
DX: D49.0 Neoplasm of unspecified behavior of digestive system (principal)
CPT/HCPCS: 74183; A9579

== ENCOUNTER → 2023-05-08 11:26 | Outpatient (CLI) | payer MEDICARE, BC, SELFPAY ==
[2022-12-08 17:04] VITALS: BMI 33.3
--- NOTE | 2023-05-08 11:30 | DI.RAD.S_ITS ---
PROCEDURE: XR HAND LT MIN 3V INDICATIONS: Left 3rd MCP joint pain TECHNIQUE: 3 views of the hand(s) acquired. COMPARISON: None. FINDINGS: Bones: No fractures or dislocations. Mild degenerative changes of the MCP and interphalangeal joints. Decreased osseous mineralization. Carpal bones are normally aligned. No suspicious bony lesions. Soft tissues: No suspicious soft tissue calcifications. IMPRESSION: No acute osseous abnormalities. Mild degenerative changes of the hand. No significant abnormality of the 3rd MCP joint. Dictated by: Terry Wilder M.D. on 05/08/2023 at 12:39 Approved by: Terry Wilder M.D. on 05/08/2023 at 12:40
== END ==
PROVIDERS: Family Provider Nurse Practitioner; PCP Nurse Practitioner; Referring Provider Nurse Practitioner Family; Visit Provider Nurse Practitioner Family
DX: M79.642 Pain in left hand (principal)
CPT/HCPCS: 73130

== ENCOUNTER → 2023-05-11 10:39 | Outpatient (CLI) | payer MEDICARE, BC, SELFPAY ==
[2022-12-08 17:04] VITALS: BMI 33.3
--- NOTE | 2023-05-11 | DI.MRI.S_ITS ---
PROCEDURE: MR KNEE LT WO CON INDICATIONS: Unilateral primary osteoarthritis, left knee TECHNIQUE: Noncontrast sagittal PD fast spin echo and T2 fast spin echo with fat saturation, sagittal 3-D FLASH with fat saturation; coronal T1 spin echo and PD fast spin echo with fat saturation, and axial PD fast spin echo with fat saturation through the knee. COMPARISON: [facility], CR, XR KNEE ARTHRITIC SERIES LT, 12/24/2022, 10:10. FINDINGS: Image quality: Excellent. Menisci: There is medial meniscal extrusion and complex tear involving the body and posterior horn of the medial meniscus. A clustered meniscal cysts are seen adjacent to the posterior horn and body of the medial meniscus. Question a small radial tear involving the free edge of the body of the lateral meniscus (series 7 image 27 close). The meniscal root ligaments appear intact. Cruciate ligaments: The anterior and posterior cruciate ligaments appear intact. Medial structures: The medial collateral ligament appears intact. The semimembranosus tendon insertions and meniscocapsular junction appear intact. Visualized portions of the pes anserinus tendons appear normal. No abnormal bursal fluid. Lateral structures: The lateral collateral ligament, long and short heads of the biceps femoris tendon appear intact. The popliteus tendon appears normal. Iliotibial band appears normal. Anterior structures: The quadriceps and patellar tendons appear intact. There is low-grade quadriceps tendinitis. Patellar alignment is normal. No femoral trochlear dysplasia or ventral trochlear prominence. No edema in the infrapatellar fat pad. Bones and cartilage: No bone marrow contusions or fractures. There is tricompartmental cartilage thinning and fibrillation, most pronounced in the medial femorotibial compartment. There is denuded weight-bearing articular surface of the medial femoral condyle and medial tibial plateau with associated subchondral edema and cyst formation. Joint space: There is small knee joint effusion. There is a tiny Zaragoza's cyst. Normal appearing synovial plicae are incidentally noted. IMPRESSION: 1. Medial meniscal extrusion and complex medial meniscal tear. 2. Question small radial tear of the body of the lateral meniscus. 3. Severe cartilage loss in the medial femorotibial compartment. 4. Small knee joint effusion. Dictated by: Yossi Garcia M.D. on 05/11/2023 at 15:44 Approved by: Yossi Garcia M.D. on 05/11/2023 at 16:41
== END ==
PROVIDERS: Family Provider Nurse Practitioner; PCP Nurse Practitioner; Referring Provider Student in an Organized Health Care Education/Training Program; Visit Provider Student in an Organized Health Care Education/Training Program
DX: S83.232A Complex tear of medial meniscus, current injury, left knee, initial encounter (principal); M17.12 Unilateral primary osteoarthritis, left knee; M25.462 Effusion, left knee
CPT/HCPCS: 73721

== ENCOUNTER 2023-06-11 08:55 | Emergency (ER) | payer MEDICARE, BC, SELFPAY ==
[2022-12-08 17:04] VITALS: BMI 33.3
[2023-06-11] VITALS (9 sets, daily range): BP systolic 124–141; BP diastolic 72–83; PULSE 80–94; RESP 18; TEMP 36.6; O2SAT 95–98; BMI 32.5
[2023-06-11 09:35] LABS: Add Manual Diff / Slide Review NO; Basophils Absolute Auto 100 /uL (0-100); Basophils Percent Auto 0.9 % (0-2); Eosinophils Absolute Auto 100 /uL (0-450); Eosinophils Percent Auto 1.5 % (2-4); Hematocrit 42.6 % (36-46); Hemoglobin 14.3 g/dL (12.0-16.0); Lymphocytes Absolute Auto 1900 /uL (1100-4500); Lymphocytes Percent Auto 23.6 % (25-40); Mean Corpuscular HGB Conc 33.6 % (30-36); Mean Corpuscular Hemoglobin 30.8 PG (26-34); Mean Corpuscular Volume 91.6 fL (80-100); Monocytes Absolute Auto 700 /uL (0-900); Monocytes Percent Auto 8.8 % (3-14); Neutrophils Absolute Auto 5200 /uL (1500-7000); Neutrophils Percent Auto 65.2 % (50-75); Platelet Count 243 X10^3/uL (150-400); Red Blood Cell Count 4.64 X10^6/uL (4.0-5.2); Red Cell Distribution Width 13.8 % (11.6-14.8); White Blood Cell Count 7.9 X10^3/uL (4.5-11.0)
[2023-06-11 10:05] LABS: Alanine Aminotransferase 28 IU/L (<35); Albumin 4.7 g/dL (3.5-5.0); Albumin Globulin Ratio 1.6 (1.0-2.8); Alkaline Phosphatase 110 U/L (38-126); Aspartate Aminotransferase 26 IU/L (14-36); Bilirubin Total 0.6 mg/dL (0.2-1.3); Blood Urea Nitrogen 15 mg/dL (7-17); Calcium 10.2 mg/dL (8.4-10.2); Carbon Dioxide 27 mmol/L (22-32); Chloride 101 mmol/L (98-107); Estimated Glomerular Filt Rate > 60 mL/min (>60); Glucose 97 mg/dL (80-110); HEMOLYSIS < 15 (0-50); Lipase 167 U/L (23-300); Sodium 138 mmol/L (137-145); Total Protein 7.7 g/dL (6.3-8.2)
--- NOTE | 2023-06-11 12:03 | ED_ITS ---
HPI - Abdominal Pain General Chief Complaint: Abdominal Pain Stated Complaint: upper abd pain radiating to back R side, nausea Time Seen by Provider: 06/11/23 12:03 Source: patient Mode of arrival: Ambulatory Limitations: no limitations History of Present Illness HPI narrative: 73-year-old female history of microvascular coronary artery disease, hypertension, dyslipidemia, disorder with known pancreatic mass seen on MRCP on 04/08/2023 on aspirin 81 mg daily. Patient presents with complaint of 2 days of abdominal pain patient states Thursday started having epigastric pain she thought it might be her angina she gets a quite frequently tried nitro sublingual without change. Patient states pain initially started epigastric has been persistent since then but moved more to the right upper quadrant. She did try some Tums which he states did not make much difference being continued woke up last night with symptoms. She states pain has continued over more in the right upper quadrant is still present. She has had nausea but never had any vomiting. She is Zofran at home but states it constipate her so she has not taken any. No fevers or chills. No cold cough congestion. She has had normal bowel movements since terms of consistency but has been more of a pale larsen brown color, no black or blood. No urinary symptoms. No rash, no trauma. Patient does have an MRCP from 04/08/2023 which showed 1.5 cm pancreatic lesion increased in size she has a tele visit follow-up in July or July with [facility]. Patient states she takes Abilify for depression/movement, torsemide, spironolactone, isosorbide, aspirin 81 mg daily and Zetia. Has adverse reactions to statin, codeine, metoprolol and lisinopril. No tobacco, alcohol or recreational drugs. Primary care is Doris schreiber, cardiology is Dr. Jaguar Bellamy in [place]. Related Data Home Medications Medication Instructions Recorded Confirmed aspirin 81 mg tablet,delayed 81 mg PO QPM ##0 01/25/17 05/18/23 release alpha lipoic acid 600 mg capsule 600 mg PO DAILY 03/01/21 05/18/23 spironolactone 25 mg tablet 25 mg PO DAILY 03/01/21 05/18/23 torsemide 10 mg tablet 10 mg PO DAILY 03/01/21 05/18/23 ezetimibe 10 mg tablet (Zetia) 10 mg PO DAILY 03/18/22 05/18/23 cholecalciferol (vitamin D3) 50 50 mcg PO DAILY 11/17/22 05/18/23 mcg (2,000 unit) capsule coenzyme Q10 400 mg capsule 400 mg PO DAILY 11/17/22 05/18/23 levocarnitine 500 mg tablet 1,000 mg PO DAILY 11/17/22 05/18/23 (L-Carnitine) omega 3 345 mg PO DAILY 11/17/22 05/18/23 vitamin B complex 1 cap PO DAILY 11/17/22 05/18/23 isosorbide mononitrate 120 mg 120 mg PO DAILY 05/02/23 05/18/23 tablet,extended release 24 hr Previous Rx's Medication Instructions Recorded miscellaneous medical supply 1 each .Route .COMPLEX to aid in 08/23/19 walking and ADL's #1 ea lidocaine HCl 2 % mucosal solution 1 applic mucous membrane Q8H PRN 04/04/21 (Lidocaine Viscous) pain #100 mL nitroglycerin 0.4 mg sublingual 0.4 mg sublingual Q5-15M PRN 06/25/22 tablet angina #30 tabs dextroamphetamine-amphetamine ER 5 5 mg PO QAM #30 caps 12/31/22 mg 24hr capsule,extend release (Adderall XR) desoximetasone 0.05 % topical 1 applic topical BID PRN skin 03/31/23 cream (Topicort) irritation #60 grams desonide 0.05 % topical ointment 1 applic topical BEDTIME #60 grams 04/06/23 aripiprazole 20 mg tablet 10 mg (1/2 x 20 mg) PO DAILY #45 05/12/23 tabs Allergies Allergy/AdvReac Type Severity Reaction Status Date / Time rosuvastatin Allergy Intermediate Verified 06/11/23 09:19 prednisone Allergy Unknown Verified 06/11/23 09:19 ciprofloxacin AdvReac Severe Weakness Verified 06/11/23 09:19 atorvastatin [From Lipitor] AdvReac Intermediate Muscle Verified 06/11/23 09:19 aches and pains cimetidine [From TAGAMET] AdvReac Mild hallucinati Verified 06/11/23 09:19 ons codeine [CODEINE] AdvReac Mild hallucinati Verified 06/11/23 09:19 ons lisinopril [LISINOPRIL] AdvReac Mild cough/GI Verified 06/11/23 09:19 issues metoprolol AdvReac Mild Verified 06/11/23 09:19 ranitidine [From ZANTAC] AdvReac Mild hallucinati Verified 06/11/23 09:19 ons Review of Systems Review of Systems ROS Unobtainable: All systems reviewed & are unremarkable except as noted in HPI and below Patient History Medical History Executive function deficit Genetic disorder of mitochondria Situational depression Cerebrovascular small vessel disease Hepatic steatosis Ventral hernia Tarlov cysts Post viral syndrome Peripheral arterial disease Generalized muscle weakness History of coronary artery disease Adrenal adenoma Adverse effects of medication History of progressive weakness Diastolic heart failure Coronary artery disease Osteoporosis History of unstable angina Myasthenia gravis Diverticulitis large intestine Acute pancreatitis Anemia Dyspnea Headache NSAID induced gastritis Gastritis Activity intolerance Fatigue Dyspnea on exertion Itch of skin Dyspnea Cough Piriformis syndrome of right side Right hip pain Small fiber polyneuropathy Progressive neurological disorder Visual disturbance Anosmia Episodic lightheadedness Osteopenia after menopause Cervical dystonia Peripheral neuropathy (2012) Cervical dystonia (1986) SOB (shortness of breath) (2010) Sjogren's syndrome (2012) Hyperlipidemia Hypertension Colon polyps Chicken pox (1956) Measles (1957) Mumps (1958) CTS (carpal tunnel syndrome) (1986) Depression (1974) Sleep apnea (2009) Skin cancer (2015) Cholecystectomy planned Denervation of muscle Status post DANILO-BSO Neoplasm of uncertain behavior of skin (10/11/15) Metallic taste (10/11/15) Chronic venous insufficiency (10/11/15) Shortness of breath (08/27/15) Generalized abdominal pain (08/07/15) Diastasis of rectus abdominis (08/07/15) Chronic fatigue (08/07/15) Atypical chest pain Abdominal pain Surgical History History of hernia repair S/P DANILO-BSO (total abdominal hysterectomy and bilateral salpingo-oophorectomy) (01/2007) History of cervical spinal surgery (07/2008) History of laparoscopic cholecystectomy (2006) Anesthesia complication History of carpal tunnel repair (1989) Status post hernia repair (2007) Status post hernia repair (2013) Family History Brother Age: 66 Prostate cancer Heart disease Hypertension High cholesterol Heart attack Brother Age: 64 Hypertension Mental health problem Kidney transplant recipient Chronic kidney disease with end stage renal failure on dialysis Father Colon cancer Heart disease Mental health problem Heart failure Grandfather Heart disease Hypertension Brain aneurysm Mother Cancer Hypertension NHL (non-Hodgkin's lymphoma) Grandmother Stroke Sister Age: 72 Celiac disease High cholesterol Mental health problem Thyroid disorder Sister Age: 68 Psoriatic arthritis Thyroid disorder Grandmother Alzheimer's disease Grandfather Colon cancer Sister Breast cancer Sister Suicide Brother No problems noted. Sister Thyroid disorder Social History marital status: household members: spouse occupational status: previously employed Smoking Status: Never smoker alcohol intake: never substance use type: does not use Smoking Status: Never smoker alcohol intake frequency: holidays/special occasions only Substance Use Type: does not use Exam Narrative Exam Narrative: GENERAL: Alert and oriented x three, female in mild distress HEENT: Head normocephalic, atraumatic, EOMI, pupils reactive, face symmetric, moist mucous membranes NECK: Supple, full range of motion CARDIOVASCULAR: Regular rate and rhythm without murmurs, rubs or gallops. No reproducible chest pain. RESPIRATORY: Breath sounds equal bilaterally, no wheezes rales or rhonchi. ABDOMEN: Soft, mild epigastric tenderness with palpation, mild tenderness right upper quadrant. Normoactive bowel sounds all 4 quadrants. No guarding or rebound, rigidity, no mass. No rash or skin changes, no vesicles. : No CVA tenderness bilaterally. EXTREMITIES: Normal range of motion, no clubbing or edema. Neurovascularly intact NEUROLOGICAL: Cranial nerves II through XII grossly intact. Moving all extremities SKIN: Warm, dry, no petechiae, no rashes or lesions. Initial Vital Signs Initial Vital Signs: Vital Signs Temperature 97.8 F 06/11/23 09:14 Pulse Rate 84 06/11/23 09:14 Respiratory Rate 18 06/11/23 09:14 Blood Pressure 141/83 H 06/11/23 09:14 Pulse Oximetry 98 06/11/23 09:14 Oxygen Delivery Method Room Air 06/11/23 09:14 Course Orders Ordered: ED Orders 06/11/23 09:27 Complete Blood Count AUTO DIFF Stat Comprehensive Metabolic Panel Stat Lipase Stat 06/11/23 09:32 Troponin & CK Cardiac Panel Stat EKG-12 Lead Stat 06/11/23 12:18 CT abdomen pelvis w con Stat Discontinued Medications Acetaminophen (Acetaminophen 325 Mg Tablet) 975 mg PO NOW ONE Stop: 06/11/23 12:19 Last Admin: 06/11/23 12:28 Dose: 975 mg Documented By: SERAFIN Ondansetron HCl (Ondansetron 4 Mg Odt) 4 mg PO NOW PRN PRN Reason: Nausea And Vomiting Ondansetron HCl (Ondansetron 4 Mg/2 Ml Inj) 4 mg IV NOW PRN PRN Reason: Nausea And Vomiting Vital Signs Vital signs: Vital Signs - 8 hr 06/11/23 10:51 06/11/23 10:53 06/11/23 10:53 Pulse Rate 94 H 83 Blood Pressure 135/81 Pulse Oximetry 96 97 06/11/23 11:00 06/11/23 11:00 06/11/23 11:30 Pulse Rate 83 80 Blood Pressure 134/77 Pulse Oximetry 95 96 06/11/23 11:30 06/11/23 12:05 06/11/23 12:32 Pulse Rate 83 83 Blood Pressure 124/78 Pulse Oximetry 97 95 06/11/23 12:33 06/11/23 12:33 06/11/23 13:00 Pulse Rate 81 81 Blood Pressure 141/75 H Pulse Oximetry 95 95 06/11/23 13:00 Pulse Rate Blood Pressure 128/72 Pulse Oximetry MDM - Abdominal Pain Lab Data 06/11/23 09:27 06/11/23 09:27 Labs: Lab Results 06/11/23 06/11/23 Range/Units 09:27 09:32 WBC 7.9 (4.5-11.0) X10^3/uL RBC 4.64 (4.0-5.2) X10^6/uL Hgb 14.3 (12.0-16.0) g/dL Hct 42.6 (36-46) % MCV 91.6 (80-100) fL MCH 30.8 (26-34) PG MCHC 33.6 (30-36) % RDW 13.8 (11.6-14.8) % Plt Count 243 (150-400) X10^3/uL Neut % (Auto) 65.2 (50-75) % Lymph % (Auto) 23.6 L (25-40) % [place] % (Auto) 8.8 (3-14) % Eos % (Auto) 1.5 L (2-4) % Baso % (Auto) 0.9 (0-2) % Neut # (Auto) 5200 (1923-0396) /uL Lymph # (Auto) 1900 (6659-5427) /uL [place] # (Auto) 700 (0-900) /uL Eos # (Auto) 100 (0-450) /uL Baso # (Auto) 100 (0-100) /uL Sodium 138 (137-145) mmol/L Potassium 4.0 (3.4-5.1) mmol/L Chloride 101 (98-107) mmol/L Carbon Dioxide 27 (22-32) mmol/L BUN 15 (7-17) mg/dL Creatinine 0.88 (0.52-1.04) mg/dL Estimated GFR > 60 (>60) mL/min BUN/Creatinine Ratio 17.0 (6-22) Glucose 97 (80-110) mg/dL Calcium 10.2 (8.4-10.2) mg/dL Total Bilirubin 0.6 (0.2-1.3) mg/dL AST 26 (14-36) IU/L ALT 28 (<35) IU/L Alkaline Phosphatase 110 (38-126) U/L Total Creatine Kinase 40 (30-135) U/L Troponin I < 0.012 (0.01-0.034) ng/mL Total Protein 7.7 (6.3-8.2) g/dL Albumin 4.7 (3.5-5.0) g/dL Globulin 3.0 (1.7-4.1) g/dL Albumin/Globulin Ratio 1.6 (1.0-2.8) Lipase 167 (23-300) U/L Point of care testing: Urine Dip Bedside Urine Glucose Negative Bedside Urine Bilirubin - Negative Bedside Urine Ketone - Negative Urine Specific [place] 1.010 Bedside Urine Occult Blood - Negative Bedside Urine pH 6.0 Bedside Urine Protein - Negative Bedside Urine Urobilinogen - Negative Bedside Urine Nitrite - Negative Bedside Urine Leukocytes - Negative Esterase Imaging Data [facility] 04/23: Radiologist's Impression: Close Knee MRI (Signed) RadhaRyan frymandi - 05/11/23 Hand X-Ray (Signed) WilderSterling harrisy - 05/08/23 Abdomen MRI with MRCP (Signed) Heriberto Weaver - 04/08/[address] (Signed) Juan Ramon Diana - 11/19/22 PFT Result 07/24/22 Mammogram Screening (Signed) Jimbo Turk - 07/23/22 Chest X-Ray (Signed) Keo Pope - 06/12/22 DI Result CC 03/26/22 Chest X-Ray (Signed) Juan Ramon Diana - 03/15/22 Abdomen/Pelvis CT (Signed) Juan Ramon Diana - 03/15/22 Abdomen/Pelvis CT (Signed) Jania Garcia - 11/30/21 Abdomen Ultrasound (Signed) Cheri Perez - 11/29/21 Chest X-Ray (Signed) Jimbo Turk - 11/08/21 Chest X-Ray (Signed) Keo Pope - 11/05/21 Abdomen/Pelvis CT (Signed) Sam Fox - 10/17/21 Knee X-Ray (Signed) Javon Wallace - 10/11/21 DI Result 08/22/21 DI Result 08/22/21 Angiography MRI (Signed) Keo Ppoe - 08/09/21 Mammogram Screening (Signed) Jimbo Turk - 07/15/21 Lumbar Spine MRI (Signed) Juan Ramon Diana - 07/03/21 Cervical Spine MRI (Signed) Juan Ramon Diana - 07/03/21 Chest X-Ray (Signed) Ernie Peralta - 06/25/21 DI Result CC 04/16/21 Outside Stress Test 04/16/[address] (Signed) Michael Cormier - 03/29/21 Chest CTA (Signed) Sid Cole - 03/18/21 Chest X-Ray (Signed) Hiral Galloway - 03/18/21 Echocardiogram Ultrasound (Signed) Herman Angela - 02/28/21 Telemetry Strips 12/12/20 DI Result CC 12/07/20 Chest CTA (Signed) Michael Cormier - 12/05/20 Abdomen Ultrasound (Signed) Jimbo Turk - 12/04/20 Chest X-Ray (Signed) Salazar Hargrove - 12/04/20 Bone Densitometry 11/08/20 DEXA Result 11/08/20 Abdomen/Pelvis CT (Signed) Juan Ramon Diana - 10/21/20 Abdomen/Pelvis CT (Signed) Sachin Plunkett - 09/29/20 Abdomen/Pelvis CT (Signed) Betsy Melgar - 08/21/20 Chest/Abdomen X-ray (Signed) Javon Wallace - 08/06/20 Abdomen Ultrasound (Signed) Salazar Hargrove - 08/06/20 Telemetry Strips 07/24/20 Abdomen/Pelvis CT (Signed) Jania Garcia - 07/24/20 Abdomen Ultrasound (Signed) Jania Garcia - 07/24/20 Chest X-Ray (Signed) Jania Garcia - 07/24/20 Mammogram Screening (Signed) Sam Fox - 07/20/[address] (Signed) Jania Garcia - 06/29/20 Chest X-Ray (Signed) Christian Kelley - 05/30/[address] (Signed) Juan Ramon Diana - 02/10/20 Abdomen/Pelvis CT (Signed) Juan Ramon Diana - 01/15/20 Mammogram Screening (Signed) Jimbo Turk - 07/15/19 Brain MRI (Signed) eKo Pope - 11/23/18 DEXA Result 11/15/18 Bone Densitometry 11/15/[address] (Signed) Ernie Peralta - 11/10/18 Lumbar Spine X-Ray (Signed) Christian Kelley - 09/30/18 Mammogram Screening (Signed) Jimbo Turk - 06/28/18 Brain MRI (Signed) Cheri Perez - 04/15/[address] (Signed) Christian Kelley - 04/02/18 Bone Scan Nuclear Medicine (Signed) Cheri Perez - 11/12/[address] [address] Magnetic Resonance Report Signed Patient: Elizabeth Maravilla MR#: [id number] : 1950 Acct:[id number] Age/Sex: 72 / F Date of Service: 04/08/23 Loc: MRI Accession Number: [id number] Procedure: MR Ab Pancreatic/MRCP protocol Ordering Provider: Doris Schreiber PROCEDURE: MR AB PANCREATIC/MRCP PROTOCOL INDICATIONS: monitor IPMN TECHNIQUE: Coronal HASTE through the abdomen, axial 2-D FLASH in- and [id number], and breath-hold T2 FSE with fat saturation through the biliary system and pancreas. Oblique coronal and axial thin-slice HASTE, radial thick-slab HASTE centered on the extrahepatic bile ducts. Intravenous secretin: Not requested. COMPARISON: [facility], CT, CT ABDOMEN PELVIS W CON, 11/08/2017, 15:03. FINDINGS: Image quality: Excellent. Liver: No solid mass. Gallbladder and biliary tree: Cholecystectomy. Biliary tree is within normal limits, status post cholecystectomy. Spleen: Normal size. Pancreas: 1.5 centimeter cystic lesion in the pancreatic body, previously measuring 0.8 centimeters in 2018. Close association to the pancreatic duct. No internal nodularity. Adrenal glands: Stable 1.5 centimeter left adrenal nodule compared with 2018, therefore statistically benign. Kidneys: No hydronephrosis. No solid mass. No complex renal cysts which requires follow-up. Nodes and vessels: No retroperitoneal or mesenteric adenopathy by size criteria. Aorta and inferior vena cava are normal in size. Bowel and peritoneum: Unenhanced bowel loops are normal in caliber. No free fluid. Lung bases: No basal pleural effusions. Heart size is normal. Bones and soft tissues: No ventral hernias. Bone marrow is of normal overall signal. IMPRESSION: Interval growth of the 1.5 centimeters cystic lesion in the pancreatic body compared with 2018. Recommend GI referral for endoscopic evaluation. No suspicious features. No nodularity or ductal dilation. Dictated by: Heriberto Weaver M.D. on 04/09/2023 at 8:44 Approved by: Heriberto Weaver M.D. on 04/09/2023 at 9:00 CT scan - abdomen/pelvis: Radiologist's Impression: Close Abdomen/Pelvis CT (Signed) Michael Cormier - 06/11/23 Launch?[facility] [address] [address] [address] Scan Report Signed Patient: Elizabeth Maravilla MR#: [id number] : 1950 Acct:[id number] Age/Sex: 73 / F Date of Service: 06/11/23 Loc: ED Accession Number: [id number] Procedure: CT abdomen pelvis w con Ordering Provider: Yina Madrigal D.O. PROCEDURE: CT ABDOMEN PELVIS W CON INDICATIONS: epigastric/RUQ pain, hx pancreatic mass on MRCP 04/08/23, TECHNIQUE: After the administration of intravenous contrast, axial sections acquired from the lung bases to the pubic symphysis. Coronal and sagittal reformats were performed. For radiation dose reduction, the following was used: automated exposure control, adjustment of mA and/or kV according to patient size. COMPARISON: [facility], CT, CT ABDOMEN PELVIS W CON, 11/08/2017, 15:03. [facility], CT, CT ABDOMEN PELVIS W CON, 03/15/2022, 13:08. FINDINGS: Image quality: Diagnostic. Lower Chest: No significant findings. ABDOMEN: Liver: No solid mass. Gallbladder: Absent. Biliary ducts: No biliary dilation. Pancreas: No ductal dilation. Cyst in the body of the pancreas measuring 1.5 x 1.3 cm, (07/23), previously 1.4 x 1.1 cm on 03/15/2022. Spleen: Size is within normal limits. Calcified granuloma. Adrenal Glands: Left adrenal nodule measuring 1.1 cm, (07/21), unchanged since 2018. Kidneys and Ureters: No hydronephrosis. No solid mass. No complex renal cystic lesion which requires follow up. Stomach and Bowel: Normal colonic caliber, without significant wall thickening. Diverticulosis. Normal appendix. Peritoneum: No abnormal intraperitoneal fluid. No free air. Ventral Wall: Tiny fat containing cyst at the lower abdominal wall. Abdominal Nodes: No retroperitoneal or mesenteric adenopathy by size criteria. Vessels: Aorta and inferior vena cava are normal in size. Retroaortic left renal vein. PELVIS: Pelvic Organs: Uterus is absent. Bladder: Unremarkable. Pelvic Nodes: No enlarged lymph nodes. Miscellaneous: No inguinal hernias are seen. Bones: No aggressive osseous abnormality. Sacral Tarlov cysts. IMPRESSION: 1. No acute abnormality identified. No free fluid. 2. Cystic lesion in the body of the pancreas measuring 1.5 cm is unchanged. No suspicious imaging features demonstrated. 3. Left adrenal nodule measuring 1.1 cm is unchanged since 2018. This most likely represents an adrenal adenoma. Dictated by: Michael Cormier M.D. on 06/11/2023 at 12:43 Approved by: Michael Cormier M.D. on 06/11/2023 at 13:01 ECG Data Attestation: I personally reviewed and interpreted this ECG as follows: Prior ECG tracings: available for review Interpretation: Sinus rhythm sinus arrhythmia rate 80 TN 162 QRS of 98 QTC 498. Patient has prior from 03/15/2022 which has nonspecific change from today to that [facility] Narrative Medical decision making narrative: 73-year-old female with approximately 48 hours of epigastric pain radiating to the right upper quadrant. Patient does have microvascular coronary artery disease no acute changes on EKG. Lab workup included abdominal labs CBC, CMP, coags, LFTs which show no clear acute change or source including negative lipase. Troponin was included because of patient's history this is negative. With greater than 24 hours of symptoms no acute EKG changes patient is felt appropriate discharge for cardiac perspective. EKG shows some mild nonspecific change. MRCP from 04/08/2023 showed a 1.5 cm lesion in the pancreatic body which is increased in size patient has not had follow-up since but is scheduled for follow up but a tele visit. This is in the area could cause symptoms she has had a prior cholecystectomy in the past has normal LFTs today. Discussed with patient ultrasound may not be able to visualize the pancreas adequately and would like to obtain CT abdomen pelvis. Patient was agreeable. She defers any antinausea medications she is open to some nonnarcotic pain management. Was given Tylenol. CT abdomen pelvis shows no acute abnormality identified cystic lesion body pancreas is 1.5 cm unchanged, no suspicious changes otherwise left adrenal nodules unchanged from 2018 is 1.1 cm. Discussed with patient plan for follow-up, discussed can try Tylenol for discomfort. She has tele follow-up for the pancreatic lesion. discussed potential for ulcer/gastritis to be source, may benefit from EGD. She will talk with physician about follow up. Can take pepcid 40mg daily or similar medication OTC to see if improvement. Discharge Plan Departure Patient Disposition: Home Clinical Impression: Abdominal pain, Pancreatic lesion, Adrenal nodule Activity Restrictions/Additional Instructions: Please follow-up with your physician for recheck. I do recommend keeping your tele visit follow-up or the pancreatic lesion. Your imaging today shows stable adrenal nodule that has not changed since 2018 and the pancreatic cystic lesion which has not changed from your MRCP in April. You may take Tylenol up to a 1000 mg every 6 hours as needed for discomfort. Continue your other home medications as prescribed. You can take pepcid or omeprazole 40 mg once daily to see if this improves symptoms. Please return for new or worsening symptoms, new chest pain or shortness of breath, fevers, lightheadedness or passing out, persistent vomiting, black or bloody stools or other new or concerning changes. Prescriptions: No Action lidocaine HCl [Lidocaine Viscous] 2 % solution 1 applic mucous membrane Q8H PRN (Reason: pain) Qty: 100 0RF Rx Instructions: Mix 10mL of viscous lidocaine, 10mL of Mag-Al Plus, and 10mL of oral benadryl suspension. Swish medication in mouth then spit out up to every 8 hours for pain. isosorbide mononitrate 120 mg tablet extended release 24 hr 120 mg PO DAILY aspirin 81 MG tablet,delayed release (DR/EC) 81 mg PO QPM Qty: 0 miscellaneous medical supply Misc 1 each .ROUTE .COMPLEX Qty: 1 0RF Rx Instructions: Medical equipment: [employer] nitro euro style aripiprazole 20 mg tablet 10 mg PO DAILY Qty: 45 3RF ezetimibe [Zetia] 10 mg tablet 10 mg PO DAILY Hold Instructions: Muscle weakness and fatigue coenzyme Q10 400 mg capsule 400 mg PO DAILY cholecalciferol (vitamin D3) 50 mcg (2,000 unit) capsule 50 mcg PO DAILY L-Carnitine 500 mg tablet 1,000 mg PO DAILY Rx Instructions: must administer with a meal/food vitamin B complex Capsule 1 cap PO DAILY Patient Comments: with folate desoximetasone [Topicort] 0.05 % cream 1 applic topical BID PRN (Reason: skin irritation) Qty: 60 1RF Rx Instructions: Apply to perineal areas that are itchy twice daily as needed desonide 0.05 % ointment 1 applic topical BEDTIME Qty: 60 0RF Rx Instructions: apply to affected area nightly for 2 weeks, then use once per week until complete resolution of symptoms torsemide 10 mg tablet 10 mg PO DAILY spironolactone 25 mg tablet 25 mg PO DAILY alpha lipoic acid 600 mg capsule 600 mg PO DAILY omega 3 345 mg PO DAILY nitroglycerin 0.4 mg tablet, sublingual 0.4 mg sublingual Q5-15M PRN (Reason: angina) Qty: 30 3RF Rx Instructions: do not exceed 3 doses per episode dextroamphetamine-amphetamine [Adderall XR] 5 mg capsule,extended release 24hr 5 mg PO QAM Qty: 30 0RF Rx Instructions: Take 1 tab in the multiple slide operator hours for executive dysfunction Referrals: Doris Schreiber ARNP [Primary Care Provider] - Stand Alone Forms: Patient Portal/API
--- NOTE | 2023-06-11 12:18 | DI.CT.S_ITS ---
PROCEDURE: CT ABDOMEN PELVIS W CON INDICATIONS: epigastric/RUQ pain, hx pancreatic mass on MRCP 04/08/23, TECHNIQUE: After the administration of intravenous contrast, axial sections acquired from the lung bases to the pubic symphysis. Coronal and sagittal reformats were performed. For radiation dose reduction, the following was used: automated exposure control, adjustment of mA and/or kV according to patient size. COMPARISON: [facility], CT, CT ABDOMEN PELVIS W CON, 11/08/2017, 15:03. [facility], CT, CT ABDOMEN PELVIS W CON, 03/15/2022, 13:08. FINDINGS: Image quality: Diagnostic. Lower Chest: No significant findings. ABDOMEN: Liver: No solid mass. Gallbladder: Absent. Biliary ducts: No biliary dilation. Pancreas: No ductal dilation. Cyst in the body of the pancreas measuring 1.5 x 1.3 cm, (07/23), previously 1.4 x 1.1 cm on 03/15/2022. Spleen: Size is within normal limits. Calcified granuloma. Adrenal Glands: Left adrenal nodule measuring 1.1 cm, (07/21), unchanged since 2018. Kidneys and Ureters: No hydronephrosis. No solid mass. No complex renal cystic lesion which requires follow up. Stomach and Bowel: Normal colonic caliber, without significant wall thickening. Diverticulosis. Normal appendix. Peritoneum: No abnormal intraperitoneal fluid. No free air. Ventral Wall: Tiny fat containing cyst at the lower abdominal wall. Abdominal Nodes: No retroperitoneal or mesenteric adenopathy by size criteria. Vessels: Aorta and inferior vena cava are normal in size. Retroaortic left renal vein. PELVIS: Pelvic Organs: Uterus is absent. Bladder: Unremarkable. Pelvic Nodes: No enlarged lymph nodes. Miscellaneous: No inguinal hernias are seen. Bones: No aggressive osseous abnormality. Sacral Tarlov cysts. IMPRESSION: 1. No acute abnormality identified. No free fluid. 2. Cystic lesion in the body of the pancreas measuring 1.5 cm is unchanged. No suspicious imaging features demonstrated. 3. Left adrenal nodule measuring 1.1 cm is unchanged since 2018. This most likely represents an adrenal adenoma. Dictated by: Michael Cormier M.D. on 06/11/2023 at 12:43 Approved by: Michael Cormier M.D. on 06/11/2023 at 13:01
[2023-06-11 12:28] LABS: Creatine Kinase 40 U/L (30-135)
[2023-06-11] MEDS: ACETAMINOPHEN 325 MG TABLET 975 MG PO (12:28)
[2023-06-11 12:41] LABS: Troponin I < 0.012 ng/mL (0.01-0.034)
== END 2023-06-11 13:30 | disposition home or self-care (01) ==
PROVIDERS: Emergency Provider Emergency Medicine; Family Provider Nurse Practitioner; PCP Nurse Practitioner
DX: R10.13 Epigastric pain (principal); K86.9 Disease of pancreas, unspecified; E27.8 Other specified disorders of adrenal gland
CPT/HCPCS: 36415; 74177; 80053; 81003; 82550; 83690; 84484; 85025; 93005; 93010; 99284; Q9967

== ENCOUNTER → 2023-07-02 10:16 | Outpatient (CLI) | payer MEDICARE, BC, SELFPAY ==
[2022-12-08 17:04] VITALS: BMI 33.3
--- NOTE | 2023-07-02 10:18 | DI.ECHO.S_ITS ---
[facility]---------+ [facility] +---------+ : : [address] : : [place] : : : : [id number] : : : : Phone: [phone]+ Echocardiogram Report + + :Name: BRIAN RODRIGUEZ Study Date: 07/02/2023 Height: 64 in : :[facility] ReadingLocation: Weight: 191 lb : : Gender: Female BSA: 1.9 m2 : :: 1950 Age: 73 yrs BP: 149/92 mmHg: :Reason For Study: SHORTNESS OF BREATH : :Ordering Physician: TANO, : :EUGENE Performed By: Rowdy Pollard : :Referring: EUGENE FREEDMAN : + + Interpretation Summary The ejection fraction is estimated to be 60-65%. There are no obvious focal wall motion abnormalities noted but poor endocardial definition reduces the sensitivity for the detection of such. No tricuspid regurgitation. Pulmonary artery pressures cannot be estimated because of the lack of a measurable TR jet velocity. Procedure: A two-dimensional transthoracic echocardiogram with color flow and Doppler was performed. The study quality was technically difficult. Comparison is made with the echocardiogram of 02/28/21. The patient was in normal sinus rhythm during the exam. The heart rate ranged between 68-81 bpm during the study. Left Ventricle: The left ventricle is normal in size and wall thickness. The ejection fraction is estimated to be 60-65%. There are no obvious focal wall motion abnormalities noted but poor endocardial definition reduces the sensitivity for the detection of such. Right Ventricle: The right ventricle is not well visualized. Atria: The left atrium grossly appears normal in size. Right atrium not well visualized. Mitral Valve: The mitral valve is normal in structure and function. There is no mitral valve stenosis. There is no mitral regurgitation noted. Aortic Valve: The aortic valve is trileaflet. There is no aortic valve stenosis. Trace AI seen on SAX color. Tricuspid Valve: The tricuspid valve is not well visualized. There is no tricuspid stenosis. No tricuspid regurgitation. Pulmonary artery pressures cannot be estimated because of the lack of a measurable TR jet velocity. Pulmonic Valve: The pulmonic valve is not well visualized. There is no pulmonic valvular stenosis. There is no pulmonic valvular regurgitation. Great Vessels: The aortic root is borderline dilated. The dimensions of the ascending aorta are normal. The inferior vena cava appeared normal. Pericardium/ Pleura There is no pericardial effusion. There is no pleural effusion. MMode/2D Measurements & Calculations LVIDd: 4.6 cm LVOT diam: 2.2 cm LVIDs: 2.6 cm Ao root diam: 3.8 cm FS: 43.4 % asc Aorta Diam: 3.6 cm IVSd: 1.2 cm Ao Arch Diam (Prox Trans): 2.8 cm LVPWd: 0.99 cm LV bonilla. diameter/BSA (cm/m^2): 2.4 LV sys. diameter/BSA (cm/m^2): 1.4 LA A4 area: 16.2 cm2 RA long axis: 4.3 cm LA length (vol): 4.5 cm RA area: 13.9 cm2 RA vol: 37.8 ml RA : 19.7 ml/m2 IVC diam: 1.7 cm TAPSE: 2.1 cm Doppler Measurements & Calculations Ao V2 max: 109.2 cm/sec LVOT Max Armen: 89.4 cm/sec Ao V2 mean: 79.7 cm/sec LV V1 max P.2 mmHg Ao max P.8 mmHg LV V1 VTI: 19.2 cm Ao mean P.8 mmHg ELSY(I,D): 3.2 cm2 Ao V2 VTI: 23.2 cm ELSY(V,D): 3.1 cm2 sev ratio: 0.83 ELSY indexed to BSA (cm^2/m^2): 1.7 MV E max armen: 49.6 cm/sec SV(LVOT): 73.9 ml MV A max armen: 75.5 cm/sec MV E/A: 0.66 Med Peak E' Armen: 5.7 cm/sec E/E' med: 8.8 Lat Peak E' Armen: 8.0 cm/sec E/E' lat: 6.2 E/e' average: 7.5 MV dec time: 0.25 sec Reading Physician:02:54 PM
== END ==
PROVIDERS: Family Provider Nurse Practitioner; PCP Nurse Practitioner; Referring Provider Nurse Practitioner; Visit Provider Nurse Practitioner
DX: R06.02 Shortness of breath (principal); I35.9 Nonrheumatic aortic valve disorder, unspecified; R53.83 Other fatigue
CPT/HCPCS: 93306

== ENCOUNTER 2023-07-15 14:30 | Outpatient (RCR) | payer MEDICARE, OTHER, BC, SELFPAY ==
[2022-12-08 17:04] VITALS: BMI 33.3
--- NOTE | 2023-06-15 16:00 | PT.OPPOC ---
Physical, Occupational & Speech Therapy At [facility] Current Diagnoses Unilateral primary osteoarthritis, left knee (06/15/23) Difficulty in walking, not elsewhere classified (06/15/23) Weakness (06/15/23) Visit Care Team Role Provider Type JENAE Mark Family Provider Advanced Manager Developmental Primary Care Provider Specialty: Family Practice Address: [address] [place] [address], [id number] Email: [email or web address] Adebayo Segovia MD Attending Provider Non-Staff Referring Provider Specialty: Orthopedic Surgery Address: [address] [place], [place] [address]kyle Kowalski, [place], [address] Fax: Email: Plan Of Care PT-OP-T Assessment and Plan Start: 06/15/23 08:53 Freq: Status: Active Protocol: Document 06/15/23 13:00 SAK (Rec: 06/16/23 08:15 SAK [id number]) Physical Therapy Assessment Rehab Potential Rehabilitation Potential Fair Evaluation Complexity Number of Personal Factors/Comorbidities 1-2 Number of Body Systems Impaired 3 Impairments Impairments Activity Tolerance,Edema, Functional Activities,Pain, Strength Goals Four Impairment gait Impairment antalgic Embryology Teacher Goal (LTG) Patient will be able to walk with no limp using 4WW LTG Duration 08/14/23 Three Impairment decreased functional activity tolerance Impairment LEFS score 26% Short Term Goal (STG) Improve LEFS score to at least 40% as measure of improved left knee function and activity tolerance STG Duration 07/16/23 Nursing Home Goal (LTG) Improve LEFS score to at least 60% as measure of improved left knee function and activity tolerance LTG Duration 08/14/23 One Impairment left knee pain as high as 7/10 Short Term Goal (STG) Decrease pain to no greater than 4/10 with all usual activities STG Duration 07/16/23 Nursing Home Goal (LTG) Decrease pain to no greater than 2/10 with all usual activities LTG Duration 08/14/23 Two Impairment weakness left knee Short Term Goal (STG) instruct patient in gentle targeted strengthening exercises for left knee to improve muscular support and decrease knee pain STG Duration 07/16/23 Nursing Home Goal (LTG) Patient to be independent and compliant with HEP and demonstrate improved muscle strength to at least 4+/5 for improved muscular support of knee for function LTG Duration 08/14/23 Assessment Summary Assessment Patient presents to PT with function-limiting left knee pain, gradually worsening for past 2 years. Injections minimally helpful. Signs and symptoms consistent with MRI results of 1. Medial meniscal extrusion and complex medial meniscal tear. 2. Question small radial tear of the body of the lateral meniscus. 3. Severe cartilage loss in the medial femorotibial compartment. 4. Small knee joint effusion. Recovery will be complicated by patient low activity tolerance due to mitochondrial muscle pathology with progressive weakness as well as cardiac issues. Will need to introduce and progress ther ex gently, monitoring carefully for tolerance. If exercises not tolerated treatment will focus more on modalities, manual tecniques and patient education for self -management. Patient may benefit from use of a knee brace. POC was discussed and patient was in agreement. Issued HEP of 4 isometric exercises, trial IFES with cold pack, and application of kinesiotape done today. Physical Therapy Plan Frequency and Duration Frequency of Treatment 2x/Week Duration of treatment (weeks) 8 Plan of Care Start Date 06/15/23 Plan of Care End Date 08/14/23 Therapeutic Interventions Therapeutic Interventions Gait Training,Home Exercise Program,Manual Therapy,Patient /Caregiver Education,Self-Care /Home Management,Soft Tissue Mobilization,Taping, Therapeutic Activities, Therapeutic Exercises Modalities Cold Pack/Ice Massage,Electric Stimulation,Hot Packs, Infrared Therapy,Ultrasound Next Visit Focus/Plan Next Note Type Treatment Note Next Visit Plan evaluate repsonse to first treatment. REview HEP, continue IFES with cold or heat pending tolerance. KT tape left knee. Discuss brace options Plan of Care Dates Plan of Care Start Date 06/15/23 Plan of Care End Date 08/14/23 Electronically Signed by: Sydnie Clark PT 06/16/23 0934 If you are in agreement with this Plan of Care, please return a signed and dated copy. I have reviewed this Plan of Care and certify that the skilled therapy services above are required to meet the patient?s needs. Physician Signature Date Printed Name and Credentials Clinical Instructor Signature Printed Name and Credentials
--- NOTE | 2023-06-15 16:00 | PT.OIE ---
Current Diagnoses Unilateral primary osteoarthritis, left knee (06/15/23) Difficulty in walking, not elsewhere classified (06/15/23) Weakness (06/15/23) Past Medical History (Last Reviewed 06/11/23 @ 12:24 by Yina Madrigal DO) Abdominal pain Activity intolerance Acute pancreatitis Adrenal adenoma Adverse effects of medication Anemia Anosmia Atypical chest pain Cerebrovascular small vessel disease Cervical dystonia (1986) Cervical dystonia Chicken pox (1956) Cholecystectomy planned Chronic fatigue (08/07/15) Chronic venous insufficiency (10/11/15) Colon polyps Coronary artery disease Cough CTS (carpal tunnel syndrome) (1986) Denervation of muscle Depression (1974) Diastasis of rectus abdominis (08/07/15) Diastolic heart failure Diverticulitis large intestine Dyspnea Dyspnea Dyspnea on exertion Episodic lightheadedness Executive function deficit Fatigue Gastritis Generalized abdominal pain (08/07/15) Generalized muscle weakness Genetic disorder of mitochondria Headache Hepatic steatosis History of coronary artery disease History of progressive weakness History of unstable angina Hyperlipidemia Hypertension Itch of skin Measles (1957) Metallic taste (10/11/15) Mumps (1958) Myasthenia gravis Neoplasm of uncertain behavior of skin (10/11/15) NSAID induced gastritis Osteopenia after menopause Osteoporosis Peripheral arterial disease Peripheral neuropathy (2012) Piriformis syndrome of right side Post viral syndrome Progressive neurological disorder Right hip pain Shortness of breath (08/27/15) Situational depression Sjogren's syndrome (2012) Skin cancer (2015) Sleep apnea (2009) Small fiber polyneuropathy SOB (shortness of breath) (2010) Status post DANILO-BSO Tarlov cysts Ventral hernia Visual disturbance Past Surgical History (Last Reviewed 06/11/23 @ 12:24 by Yina Madrigal DO) Anesthesia complication History of carpal tunnel repair (1989) History of cervical spinal surgery (07/2008) History of hernia repair History of laparoscopic cholecystectomy (2006) S/P DANILO-BSO (total abdominal hysterectomy and bilateral salpingo-oophorectomy) (01/2007) Status post hernia repair (2013) Status post hernia repair (2007) Visit Care Team Role Provider Type JENAE Mark Family Provider Advanced Boiler Room Operator Primary Care Provider Specialty: Family Practice Address: [address] [place] [address], [address] Email: [email or web address] Adebayo Segovia MD Attending Provider Non-Staff Referring Provider Specialty: Orthopedic Surgery Address: [facility] Sylvia Kowalski, [place], [address] Fax: Email: Physical Therapy Initial Evaluation PT-OP-A Visit Information Start: 06/15/23 08:53 Freq: Status: Active Protocol: Document 06/15/23 13:00 SAK (Rec: 06/16/23 08:15 SAK [id number]) Out-Patient Physical Therapy Visit Information Visit Information Visit Type Initial Evaluation Visit Start Time 13:00 Visit Stop Time 13:50 Total Visit Minutes 50 Visit Number 1 Evaluation Information Evaluation Date 06/15/23 Precautions Precautions cardiac history mitochondrial muscle disorder with progressive weakness and poor activity tolerance PT-OP-B Current Condition Start: 06/15/23 08:53 Freq: Status: Active Protocol: Document 06/15/23 13:00 SAK (Rec: 06/16/23 08:15 SAK [id number]) Current Condition History of Current Condition Onset Date 2 years Current Complaints left knee pain History of Current Condition Gradual onset left knee pain, denies any fall or other injury. At this time pain increases with standing, walking, twisting and reports feels swollen. Some decrease in pain with rest. 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 Concerned she won't be able to tolerate PT. MRI left knee shows medial meniscal tear and moderate medial arthritis with possible small lateral meniscal tear as well. Patient doesn't feel she would be able to tolerate a surgery and rehab, concerned about tolerating PT, but wants to address pain in conservative manner as able. Has had 3 injections left knee ; 2 cortisone and 1 gel but pain persists. Patient also reports stress in the household with her daughter who lives with patient and undergoing treatment for girma breast cancer. Prior Treatments and Tests MRI 05.11.24: 1. Medial meniscal extrusion and complex medial meniscal tear. 2. Question small radial tear of the body of the lateral meniscus. 3. Severe cartilage loss in the medial femorotibial compartment. 4. Small knee joint effusion. Treatment Goals Patient/Caregiver Goals decrease pain to improve tolerance for mobility Prior Functional Status Baseline Function- ADL's Modified Independent Baseline Function- Mobility Modified Independent Baseline Function- Gait independent with 4WW Current Functional Impairments (Reported) Functional Limitations- ADL's painful Functional Limitations- Mobility/Gait painful PT-OP-R Modalities Start: 06/15/23 08:53 Freq: Status: Active Protocol: Document 06/15/23 13:00 [facility] (Rec: 06/16/23 08:15 [facility] [id number]) Electric Stimulation Electric Stimulation Interferential Current (IFC) Duration (Minutes) 10 Patient Position Hooklying Combined With Heat/Cold Cold Pack PT-OP-T Assessment and Plan Start: 06/15/23 08:53 Freq: Status: Active Protocol: Document 06/15/23 13:00 [facility] (Rec: 06/16/23 08:15 [facility] [id number]) Physical Therapy Assessment Rehab Potential Rehabilitation Potential Fair Evaluation Complexity Number of Personal Factors/Comorbidities 1-2 Number of Body Systems Impaired 3 Impairments Impairments Activity Tolerance,Edema, Functional Activities,Pain, Strength Goals Four Impairment gait Impairment antalgic Group Home Goal (LTG) Patient will be able to walk with no limp using 4WW LTG Duration 08/14/23 Three Impairment decreased functional activity tolerance Impairment LEFS score 26% Short Term Goal (STG) Improve LEFS score to at least 40% as measure of improved left knee function and activity tolerance STG Duration 07/16/23 Group Home Goal (LTG) Improve LEFS score to at least 60% as measure of improved left knee function and activity tolerance LTG Duration 08/14/23 One Impairment left knee pain as high as 7/10 Short Term Goal (STG) Decrease pain to no greater than 4/10 with all usual activities STG Duration 07/16/23 Group Home Goal (LTG) Decrease pain to no greater than 2/10 with all usual activities LTG Duration 08/14/23 Two Impairment weakness left knee Short Term Goal (STG) instruct patient in gentle targeted strengthening exercises for left knee to improve muscular support and decrease knee pain STG Duration 07/16/23 Group Home Goal (LTG) Patient to be independent and compliant with HEP and demonstrate improved muscle strength to at least 4+/5 for improved muscular support of knee for function LTG Duration 08/14/23 Assessment Summary Assessment Patient presents to PT with function-limiting left knee pain, gradually worsening for past 2 years. Injections minimally helpful. Signs and symptoms consistent with MRI results of 1. Medial meniscal extrusion and complex medial meniscal tear. 2. Question small radial tear of the body of the lateral meniscus. 3. Severe cartilage loss in the medial femorotibial compartment. 4. Small knee joint effusion. Recovery will be complicated by patient low activity tolerance due to mitochondrial muscle pathology with progressive weakness as well as cardiac issues. Will need to introduce and progress ther ex gently, monitoring carefully for tolerance. If exercises not tolerated treatment will focus more on modalities, manual tecniques and patient education for self -management. Patient may benefit from use of a knee brace. POC was discussed and patient was in agreement. Issued HEP of 4 isometric exercises, trial IFES with cold pack, and application of kinesiotape done today. Physical Therapy Plan Frequency and Duration Frequency of Treatment 2x/Week Duration of treatment (weeks) 8 Plan of Care Start Date 06/15/23 Plan of Care End Date 08/14/23 Therapeutic Interventions Therapeutic Interventions Gait Training,Home Exercise Program,Manual Therapy,Patient /Caregiver Education,Self-Care /Home Management,Soft Tissue Mobilization,Taping, Therapeutic Activities, Therapeutic Exercises Modalities Cold Pack/Ice Massage,Electric Stimulation,Hot Packs, Infrared Therapy,Ultrasound Next Visit Focus/Plan Next Note Type Treatment Note Next Visit Plan evaluate repsonse to first treatment. REview HEP, continue IFES with cold or heat pending tolerance. KT tape left knee. Discuss brace options
--- NOTE | 2023-06-18 13:41 | PT.OTN ---
Current Diagnoses Unilateral primary osteoarthritis, left knee (06/18/23) Difficulty in walking, not elsewhere classified (06/18/23) Weakness (06/18/23) Physical Therapy Treatment Note PT-OP-A Visit Information Start: 06/15/23 08:53 Freq: Status: Active Protocol: Document 06/18/23 13:01 [facility] (Rec: 06/18/23 13:41 [facility] [id number]) Out-Patient Physical Therapy Visit Information Visit Information Visit Type Treatment Note Visit Start Time 13:01 Visit Stop Time 13:45 Total Visit Minutes 44 Visit Number 2 Precautions Precautions cardiac history mitochondrial muscle disorder with progressive weakness and poor activity tolerance PT-OP-B Current Condition Start: 06/15/23 08:53 Freq: Status: Active Protocol: Document 06/18/23 13:01 SAK (Rec: 06/18/23 13:41 [facility] [id number]) Current Condition History of Current Condition Onset Date 2 years Current Complaints left knee pain History of Current Condition Gradual onset left knee pain, denies any fall or other injury. At this time pain increases with standing, walking, twisting and reports feels swollen. Some decrease in pain with rest. 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 Concerned she won't be able to tolerate PT. MRI left knee shows medial meniscal tear and moderate medial arthritis with possible small lateral meniscal tear as well. Patient doesn't feel she would be able to tolerate a surgery and rehab, concerned about tolerating PT, but wants to address pain in conservative manner as able. Has had 3 injections left knee ; 2 cortisone and 1 gel but pain persists. Patient also reports stress in the household with her daughter who lives with patient and undergoing treatment for girma breast cancer. Prior Treatments and Tests MRI 05.11.24: 1. Medial meniscal extrusion and complex medial meniscal tear. 2. Question small radial tear of the body of the lateral meniscus. 3. Severe cartilage loss in the medial femorotibial compartment. 4. Small knee joint effusion. PT-OP-C Subjective Start: 06/15/23 08:53 Freq: Status: Active Protocol: Document 06/18/23 13:01 SAK (Rec: 06/18/23 13:41 [facility] [id number]) OP-PT Subjective Patient Comments Patient Comments knee not too bad today. Thinks taping helpful; knee felt great after PT. OP-PT Pain Assessment Location Left Knee Intensity 7 Description Aching,Sharp Frequency Frequent Pain Aggravating Factors Activity,Standing,Walking, Bending Pain Alleviating Factors Inactivity,Rest PT-OP-G Mobility & Gait Start: 06/15/23 08:53 Freq: Status: Active Protocol: Document 06/15/23 13:00 [facility] (Rec: 06/16/23 09:34 [facility] [id number]) OP Mobility Evaluation Transfers Sit to Stand indep with dec left LE use OP Gait Assessment Gait Gait Assistance Required: Independent Assistive Devices Assistive Device 4 Wheeled Walker Gait Deviations General Gait Pattern Antalgic,Decreased Stride Length,Decreased Feet Clearance Comments Gait Comments dec speed, patient fatigues easily PT-OP-H Neuro Start: 06/15/23 08:53 Freq: Status: Active Protocol: Document 06/15/23 13:00 [facility] (Rec: 06/16/23 09:34 [facility] [id number]) Sensation Evaluation Gross Sensation Gross Sensation WNL PT-OP-J Posture/Palpation/Skin Start: 06/15/23 08:53 Freq: Status: Active Protocol: Document 06/15/23 13:00 [facility] (Rec: 06/16/23 09:34 [facility] [id number]) Palpation Assessment Location left knee Palpation Location med joint line Palpation Findings Edema,Tenderness PT-OP-K Range of Motion Start: 06/15/23 08:53 Freq: Status: Active Protocol: Document 06/15/23 13:00 [facility] (Rec: 06/16/23 09:34 [facility] [id number]) Knee Goniometric Range of Motion Knee Left Flexion Active (degrees) 115 Extension Active (degrees) 0 Right Knee ROM WFL Yes Knee ROM Limitations Knee ROM Limitations Pain,Swelling Ankle and Foot Goniometric Range of Motion Ankle and Foot Left Dorsiflexion with Knee Flexed 5 Dorsiflexion with Knee Extended 0 Plantarflexion 55 Right Ankle/Foot ROM WFL Yes Ankle and Foot ROM Limitations ROM Limitations Soft Tissue Tightness,Muscle Weakness PT-OP-M Strength Start: 06/15/23 08:53 Freq: Status: Active Protocol: Document 06/15/23 13:00 [facility] (Rec: 06/16/23 09:34 [facility] [id number]) Knee Strength Knee Manual Muscle Testing Left Flexion (S2) 4- Good- Extension (L3) 4- Good- Comments pain Right Flexion (S2) 4 Good Extension (L3) 4 Good PT-OP-Q Treatments Start: 06/15/23 08:53 Freq: Status: Active Protocol: Document 06/18/23 13:01 [facility] (Rec: 06/18/23 13:41 SAK [id number]) Cardio Equipment Recumbent Elliptical (Biodex) Duration (Minutes) 5 Resistance 1 Seat Position 7 Manual Therapy Treatment Taping left knee Body Location med meniscus Treatment Focus pain reduction Type of Tape kinesiotape Skin Inspection intact Comments I strip 50% stretch Self-Care/Home Management Treatment Education Patient Education Home Exercise Program PT-OP-R Modalities Start: 06/15/23 08:53 Freq: Status: Active Protocol: Document 06/18/23 13:01 [facility] (Rec: 06/18/23 13:41 [facility] [id number]) Electric Stimulation Electric Stimulation Interferential Current (IFC) Duration (Minutes) 10 Patient Position Hooklying Combined With Heat/Cold Cold Pack Infrared Treatment Treatment left knee Duration (Minutes) 5 Body Position Hooklying Continuous/Pulsed cont Program or Protocal chronic joint pain and stiffness PT-OP-T Assessment and Plan Start: 06/15/23 08:53 Freq: Status: Active Protocol: Document 06/18/23 13:01 [facility] (Rec: 06/18/23 13:41 [facility] [id number]) Physical Therapy Assessment Impairments Impairments Activity Tolerance,Edema, Functional Activities,Pain, Strength Goals Four Impairment gait Impairment antalgic Paint Roller Winder Goal (LTG) Patient will be able to walk with no limp using 4WW LTG Duration 08/14/23 Three Impairment decreased functional activity tolerance Impairment LEFS score 26% Short Term Goal (STG) Improve LEFS score to at least 40% as measure of improved left knee function and activity tolerance STG Duration 07/16/23 Paint Roller Winder Goal (LTG) Improve LEFS score to at least 60% as measure of improved left knee function and activity tolerance LTG Duration 08/14/23 One Impairment left knee pain as high as 7/10 Impairment 2 min walk test 232 ft, unable to do 6 min walk test due to fatigue Short Term Goal (STG) Decrease pain to no greater than 4/10 with all usual activities STG Duration 07/16/23 [facility] Goal (LTG) Decrease pain to no greater than 2/10 with all usual activities LTG Duration 08/14/23 Two Impairment weakness left knee Impairment fatigued after 2 min ambulation, Trendelenberg gait Short Term Goal (STG) instruct patient in gentle targeted strengthening exercises for left knee to improve muscular support and decrease knee pain STG Duration 07/16/23 [facility] Goal (LTG) Patient to be independent and compliant with HEP and demonstrate improved muscle strength to at least 4+/5 for improved muscular support of knee for function LTG Duration 08/14/23 Assessment Summary Assessment Dec pain after first treatment . REviewed HEP with patient demonstrating good understanding. Benefits from kinesiotape. Physical Therapy Plan Frequency and Duration Frequency of Treatment 2x/Week Duration of treatment (weeks) 8 Plan of Care Start Date 06/15/23 Plan of Care End Date 08/14/23 Therapeutic Interventions Therapeutic Interventions Gait Training,Home Exercise Program,Manual Therapy,Patient /Caregiver Education,Self-Care /Home Management,Soft Tissue Mobilization,Taping, Therapeutic Activities, Therapeutic Exercises Modalities Cold Pack/Ice Massage,Electric Stimulation,Hot Packs, Infrared Therapy,Ultrasound Next Visit Focus/Plan Next Note Type Treatment Note Next Visit Plan Continue gentle ther ex, modalities and manual therapy as tolerated.
--- NOTE | 2023-06-23 12:43 | PT.OTN ---
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 At this time pain increases with standing, walking, twisting and reports feels swollen. Some decrease in pain with rest. 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 Concerned she won't be able to tolerate PT. MRI left knee shows medial meniscal tear and moderate medial arthritis with possible small lateral meniscal tear as well. Patient doesn't feel she would be able to tolerate a surgery and rehab, concerned about tolerating PT, but wants to address pain in conservative manner as able. Has had 3 injections left knee ; 2 cortisone and 1 gel but pain persists. Patient also reports stress in the household with her daughter who lives with patient and undergoing treatment for girma breast cancer. Prior Treatments and Tests MRI 05.11.24: 1. Medial meniscal extrusion and complex medial meniscal tear. 2. Question small radial tear of the body of the lateral meniscus. 3. Severe cartilage loss in the medial femorotibial compartment. 4. Small knee joint effusion. PT-OP-C Subjective Start: 06/15/23 08:53 Freq: Status: Active Protocol: Document 06/23/23 11:16 [facility]AK (Rec: 06/23/23 12:03 [facility] [id number]) OP-PT Subjective Patient Comments Patient Comments Didn't sleep well, feeling weaker and more tired. Using power wheelchair today due to fatigue. Having more angina ( consulting with physician), though denies angina today. OP-PT Pain Assessment Location Left Knee Intensity 7 Description Aching,Sharp Frequency Frequent Pain Aggravating Factors Activity,Standing,Walking, Bending Pain Alleviating Factors Inactivity,Rest PT-OP-G Mobility & Gait Start: 06/15/23 08:53 Freq: Status: Active Protocol: Document 06/15/23 13:00 [facility] (Rec: 06/16/23 09:34 [facility] [id number]) OP Mobility Evaluation Transfers Sit to Stand indep with dec left LE use OP Gait Assessment Gait Gait Assistance Required: Independent Assistive Devices Assistive Device 4 Wheeled Walker Gait Deviations General Gait Pattern Antalgic,Decreased Stride Length,Decreased Feet Clearance Comments Gait Comments dec speed, patient fatigues easily PT-OP-H Neuro Start: 06/15/23 08:53 Freq: Status: Active Protocol: Document 06/15/23 13:00 [facility] (Rec: 06/16/23 09:34 [facility] [id number]) Sensation Evaluation Gross Sensation Gross Sensation WNL PT-OP-J Posture/Palpation/Skin Start: 06/15/23 08:53 Freq: Status: Active Protocol: Document 06/15/23 13:00 [facility] (Rec: 06/16/23 09:34 [facility] [id number]) Palpation Assessment Location left knee Palpation Location med joint line Palpation Findings Edema,Tenderness PT-OP-K Range of Motion Start: 06/15/23 08:53 Freq: Status: Active Protocol: Document 06/15/23 13:00 [facility] (Rec: 06/16/23 09:34 [facility] [id number]) Knee Goniometric Range of Motion Knee Left Flexion Active (degrees) 115 Extension Active (degrees) 0 Right Knee ROM WFL Yes Knee ROM Limitations Knee ROM Limitations Pain,Swelling Ankle and Foot Goniometric Range of Motion Ankle and Foot Left Dorsiflexion with Knee Flexed 5 Dorsiflexion with Knee Extended 0 Plantarflexion 55 Right Ankle/Foot ROM WFL Yes Ankle and Foot ROM Limitations ROM Limitations Soft Tissue Tightness,Muscle Weakness PT-OP-M Strength Start: 06/15/23 08:53 Freq: Status: Active Protocol: Document 06/15/23 13:00 [facility] (Rec: 06/16/23 09:34 [facility] [id number]) Knee Strength Knee Manual Muscle Testing Left Flexion (S2) 4- Good- Extension (L3) 4- Good- Comments pain Right Flexion (S2) 4 Good Extension (L3) 4 Good PT-OP-Q Treatments Start: 06/15/23 08:53 Freq: Status: Active Protocol: Document 06/23/23 11:16 [facility] (Rec: 06/23/23 12:03 [facility] [id number]) Cardio Equipment Recumbent Elliptical (Biodex) Duration (Minutes) 5 Resistance 1 Seat Position 7 Manual Therapy Treatment Taping left knee Body Location med meniscus Treatment Focus pain reduction Type of Tape kinesiotape Skin Inspection intact Comments I strip 50% stretch PT-OP-R Modalities Start: 06/15/23 08:53 Freq: Status: Active Protocol: Document 06/23/23 11:16 [facility] (Rec: 06/23/23 12:03 [facility] [id number]) Electric Stimulation Electric Stimulation Interferential Current (IFC) Duration (Minutes) 10 Patient Position Hooklying Combined With Heat/Cold Hot Pack Comments trial heat instead of ice Infrared Treatment Treatment left knee Duration (Minutes) 6 Body Position Hooklying Continuous/Pulsed cont Program or Protocal chronic joint pain and stiffness PT-OP-T Assessment and Plan Start: 06/15/23 08:53 Freq: Status: Active Protocol: Document 06/23/23 11:16 [facility] (Rec: 06/23/23 12:03 [facility] [id number]) Physical Therapy Assessment Impairments Impairments Activity Tolerance,Edema, Functional Activities,Pain, Strength Goals Four Impairment gait Impairment antalgic Mcc Goal (LTG) Patient will be able to walk with no limp using 4WW LTG Duration 08/14/23 Three Impairment decreased functional activity tolerance Impairment LEFS score 26% Short Term Goal (STG) Improve LEFS score to at least 40% as measure of improved left knee function and activity tolerance STG Duration 07/16/23 Mcc Goal (LTG) Improve LEFS score to at least 60% as measure of improved left knee function and activity tolerance LTG Duration 08/14/23 One Impairment left knee pain as high as 7/10 Impairment 2 min walk test 232 ft, unable to do 6 min walk test due to fatigue Short Term Goal (STG) Decrease pain to no greater than 4/10 with all usual activities STG Duration 07/16/23 Manager Change Goal (LTG) Decrease pain to no greater than 2/10 with all usual activities LTG Duration 08/14/23 Two Impairment weakness left knee Impairment fatigued after 2 min ambulation, Trendelenberg gait Short Term Goal (STG) instruct patient in gentle targeted strengthening exercises for left knee to improve muscular support and decrease knee pain STG Duration 07/16/23 Manager Change Goal (LTG) Patient to be independent and compliant with HEP and demonstrate improved muscle strength to at least 4+/5 for improved muscular support of knee for function LTG Duration 08/14/23 Progress Towards Goals Progress Towards Goals Progressing Toward Goals Assessment Summary Assessment Patient reporting decrease in knee pain with PT treatment. Hasn't felt strong enough to use ex bike at home, mn ability to perform HEP. Patient emotionally labile regarding decline in function related to cardiac issues ( carries nitroglycerine) and progressive muscle disorder. Tolerated treatemtn well with use of power w/c for mobility today. Transfers safe Physical Therapy Plan Frequency and Duration Frequency of Treatment 2x/Week Duration of treatment (weeks) 8 Plan of Care Start Date 06/15/23 Plan of Care End Date 08/14/23 Therapeutic Interventions Therapeutic Interventions Gait Training,Home Exercise Program,Manual Therapy,Patient /Caregiver Education,Self-Care /Home Management,Soft Tissue Mobilization,Taping, Therapeutic Activities, Therapeutic Exercises Modalities Cold Pack/Ice Massage,Electric Stimulation,Hot Packs, Infrared Therapy,Ultrasound Next Visit Focus/Plan Next Note Type Treatment Note Next Visit Plan Continue gentle ther ex, modalities and manual therapy as tolerated.
--- NOTE | 2023-06-30 13:42 | PT.OTN ---
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 At this time pain increases with standing, walking, twisting and reports feels swollen. Some decrease in pain with rest. 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 Concerned she won't be able to tolerate PT. MRI left knee shows medial meniscal tear and moderate medial arthritis with possible small lateral meniscal tear as well. Patient doesn't feel she would be able to tolerate a surgery and rehab, concerned about tolerating PT, but wants to address pain in conservative manner as able. Has had 3 injections left knee ; 2 cortisone and 1 gel but pain persists. Patient also reports stress in the household with her daughter who lives with patient and undergoing treatment for girma breast cancer. Prior Treatments and Tests MRI 05.11.24: 1. Medial meniscal extrusion and complex medial meniscal tear. 2. Question small radial tear of the body of the lateral meniscus. 3. Severe cartilage loss in the medial femorotibial compartment. 4. Small knee joint effusion. PT-OP-C Subjective Start: 06/15/23 08:53 Freq: Status: Active Protocol: Document 06/30/23 13:11 [facility] (Rec: 06/30/23 13:42 [facility] [id number]) OP-PT Subjective Patient Comments Patient Comments Knee not hurting at night now, walking limited by other medical issues, fatigue. PT-OP-G Mobility & Gait Start: 06/15/23 08:53 Freq: Status: Active Protocol: Document 06/15/23 13:00 [facility] (Rec: 06/16/23 09:34 [facility] [id number]) OP Mobility Evaluation Transfers Sit to Stand indep with dec left LE use OP Gait Assessment Gait Gait Assistance Required: Independent Assistive Devices Assistive Device 4 Wheeled Walker Gait Deviations General Gait Pattern Antalgic,Decreased Stride Length,Decreased Feet Clearance Comments Gait Comments dec speed, patient fatigues easily PT-OP-H Neuro Start: 06/15/23 08:53 Freq: Status: Active Protocol: Document 06/15/23 13:00 [facility] (Rec: 06/16/23 09:34 [facility] [id number]) Sensation Evaluation Gross Sensation Gross Sensation WNL PT-OP-J Posture/Palpation/Skin Start: 06/15/23 08:53 Freq: Status: Active Protocol: Document 06/15/23 13:00 [facility] (Rec: 06/16/23 09:34 [facility] [id number]) Palpation Assessment Location left knee Palpation Location med joint line Palpation Findings Edema,Tenderness PT-OP-K Range of Motion Start: 06/15/23 08:53 Freq: Status: Active Protocol: Document 06/15/23 13:00 [facility] (Rec: 06/16/23 09:34 [facility] [id number]) Knee Goniometric Range of Motion Knee Left Flexion Active (degrees) 115 Extension Active (degrees) 0 Right Knee ROM WFL Yes Knee ROM Limitations Knee ROM Limitations Pain,Swelling Ankle and Foot Goniometric Range of Motion Ankle and Foot Left Dorsiflexion with Knee Flexed 5 Dorsiflexion with Knee Extended 0 Plantarflexion 55 Right Ankle/Foot ROM WFL Yes Ankle and Foot ROM Limitations ROM Limitations Soft Tissue Tightness,Muscle Weakness PT-OP-M Strength Start: 06/15/23 08:53 Freq: Status: Active Protocol: Document 06/15/23 13:00 [facility] (Rec: 06/16/23 09:34 [facility] [id number]) Knee Strength Knee Manual Muscle Testing Left Flexion (S2) 4- Good- Extension (L3) 4- Good- Comments pain Right Flexion (S2) 4 Good Extension (L3) 4 Good PT-OP-Q Treatments Start: 06/15/23 08:53 Freq: Status: Active Protocol: Document 06/30/23 13:11 [facility] (Rec: 06/30/23 13:42 [facility] [id number]) Cardio Equipment Recumbent Elliptical (Biodex) Duration (Minutes) 5 Resistance 1 Seat Position 7 Manual Therapy Treatment Taping left knee Body Location med meniscus Treatment Focus pain reduction Type of Tape kinesiotape Skin Inspection intact Comments I strip 50% stretch PT-OP-R Modalities Start: 06/15/23 08:53 Freq: Status: Active Protocol: Document 06/30/23 13:11 [facility] (Rec: 06/30/23 13:42 [facility] [id number]) Electric Stimulation Electric Stimulation Interferential Current (IFC) Patient Position Hooklying Combined With Heat/Cold Hot Pack Comments trial heat instead of ice Infrared Treatment Treatment left knee Body Position Hooklying Continuous/Pulsed cont Program or Protocal chronic joint pain and stiffness PT-OP-T Assessment and Plan Start: 06/15/23 08:53 Freq: Status: Active Protocol: Document 06/30/23 13:11 [facility] (Rec: 06/30/23 13:42 [facility] [id number]) Physical Therapy Assessment Impairments Impairments Activity Tolerance,Edema, Functional Activities,Pain, Strength Goals Four Impairment gait Impairment antalgic Half-Way Goal (LTG) Patient will be able to walk with no limp using 4WW LTG Duration 08/14/23 Three Impairment decreased functional activity tolerance Impairment LEFS score 26% Short Term Goal (STG) Improve LEFS score to at least 40% as measure of improved left knee function and activity tolerance STG Duration 07/16/23 Half-Way Goal (LTG) Improve LEFS score to at least 60% as measure of improved left knee function and activity tolerance LTG Duration 08/14/23 One Impairment left knee pain as high as 7/10 Impairment 2 min walk test 232 ft, unable to do 6 min walk test due to fatigue Short Term Goal (STG) Decrease pain to no greater than 4/10 with all usual activities STG Duration 07/16/23 Nascar Racer Goal (LTG) Decrease pain to no greater than 2/10 with all usual activities LTG Duration 08/14/23 Two Impairment weakness left knee Impairment fatigued after 2 min ambulation, Trendelenberg gait Short Term Goal (STG) instruct patient in gentle targeted strengthening exercises for left knee to improve muscular support and decrease knee pain STG Duration 07/16/23 Nascar Racer Goal (LTG) Patient to be independent and compliant with HEP and demonstrate improved muscle strength to at least 4+/5 for improved muscular support of knee for function LTG Duration 08/14/23 Progress Towards Goals Progress Towards Goals Progressing Toward Goals Assessment Summary Assessment Decreasing knee pain with treatment. Compliant to HEP despite fatigue level due to good response. States still pain with walking. Physical Therapy Plan Frequency and Duration Frequency of Treatment 2x/Week Duration of treatment (weeks) 8 Plan of Care Start Date 06/15/23 Plan of Care End Date 08/14/23 Therapeutic Interventions Therapeutic Interventions Gait Training,Home Exercise Program,Manual Therapy,Patient /Caregiver Education,Self-Care /Home Management,Soft Tissue Mobilization,Taping, Therapeutic Activities, Therapeutic Exercises Modalities Cold Pack/Ice Massage,Electric Stimulation,Hot Packs, Infrared Therapy,Ultrasound Next Visit Focus/Plan Next Note Type Treatment Note Next Visit Plan Increase time on Biodex to 7 min
--- NOTE | 2023-07-07 08:51 | PT.OTN ---
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 At this time pain increases with standing, walking, twisting and reports feels swollen. Some decrease in pain with rest. 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 Concerned she won't be able to tolerate PT. MRI left knee shows medial meniscal tear and moderate medial arthritis with possible small lateral meniscal tear as well. Patient doesn't feel she would be able to tolerate a surgery and rehab, concerned about tolerating PT, but wants to address pain in conservative manner as able. Has had 3 injections left knee ; 2 cortisone and 1 gel but pain persists. Patient also reports stress in the household with her daughter who lives with patient and undergoing treatment for girma breast cancer. Prior Treatments and Tests MRI 05.11.24: 1. Medial meniscal extrusion and complex medial meniscal tear. 2. Question small radial tear of the body of the lateral meniscus. 3. Severe cartilage loss in the medial femorotibial compartment. 4. Small knee joint effusion. PT-OP-C Subjective Start: 06/15/23 08:53 Freq: Status: Active Protocol: Document 07/07/23 08:14 [facility]AK (Rec: 07/07/23 08:51 [facility] [id number]) OP-PT Subjective Patient Comments Patient Comments Rough morning, achy pain in legs which shortens her breath , brought power w/c. Better day yesterday; 2 outings and was exhausted. Met with hospice nurse yesterday was accepted, they are going to bring oxygen. Getting will updated. Knee overall better. PT-OP-G Mobility & Gait Start: 06/15/23 08:53 Freq: Status: Active Protocol: Document 06/15/23 13:00 [facility] (Rec: 06/16/23 09:34 [facility] [id number]) OP Mobility Evaluation Transfers Sit to Stand indep with dec left LE use OP Gait Assessment Gait Gait Assistance Required: Independent Assistive Devices Assistive Device 4 Wheeled Walker Gait Deviations General Gait Pattern Antalgic,Decreased Stride Length,Decreased Feet Clearance Comments Gait Comments dec speed, patient fatigues easily PT-OP-H Neuro Start: 06/15/23 08:53 Freq: Status: Active Protocol: Document 06/15/23 13:00 [facility] (Rec: 06/16/23 09:34 [facility] [id number]) Sensation Evaluation Gross Sensation Gross Sensation WNL PT-OP-J Posture/Palpation/Skin Start: 06/15/23 08:53 Freq: Status: Active Protocol: Document 06/15/23 13:00 [facility] (Rec: 06/16/23 09:34 [facility] [id number]) Palpation Assessment Location left knee Palpation Location med joint line Palpation Findings Edema,Tenderness PT-OP-K Range of Motion Start: 06/15/23 08:53 Freq: Status: Active Protocol: Document 06/15/23 13:00 [facility] (Rec: 06/16/23 09:34 [facility] [id number]) Knee Goniometric Range of Motion Knee Left Flexion Active (degrees) 115 Extension Active (degrees) 0 Right Knee ROM WFL Yes Knee ROM Limitations Knee ROM Limitations Pain,Swelling Ankle and Foot Goniometric Range of Motion Ankle and Foot Left Dorsiflexion with Knee Flexed 5 Dorsiflexion with Knee Extended 0 Plantarflexion 55 Right Ankle/Foot ROM WFL Yes Ankle and Foot ROM Limitations ROM Limitations Soft Tissue Tightness,Muscle Weakness PT-OP-M Strength Start: 06/15/23 08:53 Freq: Status: Active Protocol: Document 06/15/23 13:00 [facility] (Rec: 06/16/23 09:34 [facility] [id number]) Knee Strength Knee Manual Muscle Testing Left Flexion (S2) 4- Good- Extension (L3) 4- Good- Comments pain Right Flexion (S2) 4 Good Extension (L3) 4 Good PT-OP-Q Treatments Start: 06/15/23 08:53 Freq: Status: Active Protocol: Document 07/07/23 08:14 [facility] (Rec: 07/07/23 08:51 [facility] [id number]) Cardio Equipment Recumbent Elliptical (Biodex) Duration (Minutes) 6 Resistance 1 Seat Position 7 Therapeutic Exercises Supine Exercises SAQ Reps/Minutes 3x Manual Therapy Treatment Taping left knee Body Location med meniscus Treatment Focus pain reduction Type of Tape kinesiotape Skin Inspection intact Comments I strip 50% stretch PT-OP-R Modalities Start: 06/15/23 08:53 Freq: Status: Active Protocol: Document 07/07/23 08:14 [facility] (Rec: 07/07/23 08:51 [facility] [id number]) Electric Stimulation Electric Stimulation Interferential Current (IFC) Patient Position Hooklying Combined With Heat/Cold Hot Pack Comments trial heat instead of ice Infrared Treatment Treatment left knee Body Position Hooklying Continuous/Pulsed cont Program or Protocal chronic joint pain and stiffness PT-OP-T Assessment and Plan Start: 06/15/23 08:53 Freq: Status: Active Protocol: Document 07/07/23 08:14 [facility] (Rec: 07/07/23 08:51 [facility] [id number]) Physical Therapy Assessment Impairments Impairments Activity Tolerance,Edema, Functional Activities,Pain, Strength Goals Four Impairment gait Impairment antalgic Senior Living Goal (LTG) Patient will be able to walk with no limp using 4WW LTG Duration 08/14/23 Three Impairment decreased functional activity tolerance Impairment LEFS score 26% Short Term Goal (STG) Improve LEFS score to at least 40% as measure of improved left knee function and activity tolerance STG Duration 07/16/23 Senior Living Goal (LTG) Improve LEFS score to at least 60% as measure of improved left knee function and activity tolerance LTG Duration 08/14/23 One Impairment left knee pain as high as 7/10 Impairment 2 min walk test 232 ft, unable to do 6 min walk test due to fatigue Short Term Goal (STG) Decrease pain to no greater than 4/10 with all usual activities STG Duration 07/16/23 Senior Living Goal (LTG) Decrease pain to no greater than 2/10 with all usual activities LTG Duration 08/14/23 Two Impairment weakness left knee Impairment fatigued after 2 min ambulation, Trendelenberg gait Short Term Goal (STG) instruct patient in gentle targeted strengthening exercises for left knee to improve muscular support and decrease knee pain STG Duration 07/16/23 Cigar Binder Goal (LTG) Patient to be independent and compliant with HEP and demonstrate improved muscle strength to at least 4+/5 for improved muscular support of knee for function LTG Duration 08/14/23 Progress Towards Goals Progress Towards Goals Progressing Toward Goals Assessment Summary Assessment Improving knee pain. Low activity je though able to add SAQ and inc Biodex 1 min. Physical Therapy Plan Frequency and Duration Frequency of Treatment 2x/Week Duration of treatment (weeks) 8 Plan of Care Start Date 06/15/23 Plan of Care End Date 08/14/23 Next Visit Focus/Plan Next Note Type Treatment Note Next Visit Plan Continue gentle progressive ther ex as patient je. Continue modalities and manual therapy PRN.
--- NOTE | 2023-08-05 10:25 | PT.OPDS ---
Current Diagnoses Unilateral primary osteoarthritis, left knee (07/15/23) Difficulty in walking, not elsewhere classified (07/15/23) Weakness (07/15/23) Visit Care Team Role Provider Type JENAE Mark Family Provider Advanced Pointer Helper Primary Care Provider Specialty: Family Practice Address: [address] [place] [address], [id number] Email: [email or web address] Adebayo Segovia MD Attending Provider Non-Staff Referring Provider Specialty: Orthopedic Surgery Address: [address] [place] [address] , [place], [address] Fax: Email: Visit Number Visit Number 6 Discharge Summary PT-OP-B Current Condition Start: 06/15/23 08:53 Freq: Status: Active Protocol: Document 07/15/23 14:33 [facility] (Rec: 07/15/23 15:07 [facility] [id number]) Current Condition History of Current Condition Onset Date 2 years Current Complaints left knee pain History of Current Condition Gradual onset left knee pain, denies any fall or other injury. At this time pain increases with standing, walking, twisting and reports feels swollen. Some decrease in pain with rest. 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 Concerned she won't be able to tolerate PT. MRI left knee shows medial meniscal tear and moderate medial arthritis with possible small lateral meniscal tear as well. Patient doesn't feel she would be able to tolerate a surgery and rehab, concerned about tolerating PT, but wants to address pain in conservative manner as able. Has had 3 injections left knee ; 2 cortisone and 1 gel but pain persists. Patient also reports stress in the household with her daughter who lives with patient and undergoing treatment for girma breast cancer. Prior Treatments and Tests MRI 05.11.24: 1. Medial meniscal extrusion and complex medial meniscal tear. 2. Question small radial tear of the body of the lateral meniscus. 3. Severe cartilage loss in the medial femorotibial compartment. 4. Small knee joint effusion. PT-OP-C Subjective Start: 06/15/23 08:53 Freq: Status: Active Protocol: Document 07/15/23 14:33 [facility] (Rec: 07/15/23 15:07 [facility] [id number]) OP-PT Subjective Patient Comments Patient Comments Woke up early and didn't get back to sleep, has SELBY. Yesterday was a good day; got injection in knee and injection in knee for her dystonia. Orthopedist recomended TKA but patient does not want. Just walking around her house with her walker wears her out, using wheelchair more and more. PT-OP-G Mobility & Gait Start: 06/15/23 08:53 Freq: Status: Active Protocol: Document 06/15/23 13:00 [facility] (Rec: 06/16/23 09:34 [facility] [id number]) OP Mobility Evaluation Transfers Sit to Stand indep with dec left LE use OP Gait Assessment Gait Gait Assistance Required: Independent Assistive Devices Assistive Device 4 Wheeled Walker Gait Deviations General Gait Pattern Antalgic,Decreased Stride Length,Decreased Feet Clearance Comments Gait Comments dec speed, patient fatigues easily PT-OP-H Neuro Start: 06/15/23 08:53 Freq: Status: Active Protocol: Document 06/15/23 13:00 [facility] (Rec: 06/16/23 09:34 [facility] [id number]) Sensation Evaluation Gross Sensation Gross Sensation WNL PT-OP-J Posture/Palpation/Skin Start: 06/15/23 08:53 Freq: Status: Active Protocol: Document 06/15/23 13:00 [facility] (Rec: 06/16/23 09:34 [facility] [id number]) Palpation Assessment Location left knee Palpation Location med joint line Palpation Findings Edema,Tenderness PT-OP-K Range of Motion Start: 06/15/23 08:53 Freq: Status: Active Protocol: Document 06/15/23 13:00 [facility] (Rec: 06/16/23 09:34 [facility] [id number]) Knee Goniometric Range of Motion Knee Left Flexion Active (degrees) 115 Extension Active (degrees) 0 Right Knee ROM WFL Yes Knee ROM Limitations Knee ROM Limitations Pain,Swelling Ankle and Foot Goniometric Range of Motion Ankle and Foot Left Dorsiflexion with Knee Flexed 5 Dorsiflexion with Knee Extended 0 Plantarflexion 55 Right Ankle/Foot ROM WFL Yes Ankle and Foot ROM Limitations ROM Limitations Soft Tissue Tightness,Muscle Weakness PT-OP-M Strength Start: 06/15/23 08:53 Freq: Status: Active Protocol: Document 06/15/23 13:00 [facility] (Rec: 06/16/23 09:34 [facility] [id number]) Knee Strength Knee Manual Muscle Testing Left Flexion (S2) 4- Good- Extension (L3) 4- Good- Comments pain Right Flexion (S2) 4 Good Extension (L3) 4 Good PT-OP-T Assessment and Plan Start: 06/15/23 08:53 Freq: Status: Active Protocol: Document 08/05/23 10:25 [facility] (Rec: 08/05/23 10:25 [facility] [id number]) Physical Therapy Plan Discharge Physical Therapy Discharge Reasons Change in Medical Status Discharge Comments patient on hospice.
== END 2023-08-06 12:44 | disposition home or self-care (01) ==
LOC: PHYS 14:30
PROVIDERS: Family Provider Nurse Practitioner; PCP Nurse Practitioner; Referring Provider Student in an Organized Health Care Education/Training Program; Visit Provider Student in an Organized Health Care Education/Training Program
DX: M17.12 Unilateral primary osteoarthritis, left knee (principal); R53.1 Weakness; R26.2 Difficulty in walking, not elsewhere classified
CPT/HCPCS: 97014; 97110; 97140; 97162; 97535; G0283

== ENCOUNTER → 2023-08-11 13:01 | Outpatient (CLI) | payer MEDICARE, BC, SELFPAY ==
[2022-12-08 17:04] VITALS: BMI 33.3
[2023-08-11 14:28] LABS: Blood Urea Nitrogen 16 mg/dL (7-17); Calcium 9.8 mg/dL (8.4-10.2); Carbon Dioxide 30 mmol/L (22-32); Chloride 107 mmol/L (98-107); Estimated Glomerular Filt Rate 51 mL/min (>60); Glucose 129 mg/dL (80-110); HEMOLYSIS < 15 (0-50); Potassium 4.1 mmol/L (3.4-5.1); Sodium 142 mmol/L (137-145)
== END ==
LOC: LAB 13:04
PROVIDERS: Family Provider Nurse Practitioner; PCP Nurse Practitioner; Referring Provider Internal Medicine Cardiovascular Disease; Visit Provider Internal Medicine Cardiovascular Disease
DX: I25.118 Atherosclerotic heart disease of native coronary artery with other forms of angina pectoris (principal); I51.89 Other ill-defined heart diseases; I25.85 Chronic coronary microvascular dysfunction
CPT/HCPCS: 36415; 80048

== ENCOUNTER → 2023-10-13 12:36 | Outpatient (CLI) | payer MEDICARE, BC, SELFPAY ==
[2022-12-08 17:04] VITALS: BMI 33.3
--- NOTE | 2023-10-13 12:38 | DI.RAD.S_ITS ---
PROCEDURE: XR CHEST 2V INDICATIONS: rule out CHF or pneumonia TECHNIQUE: 2 views of the chest were acquired. COMPARISON: [facility], , XR CHEST 1V, 06/12/2022, 9:15. FINDINGS: Surgical changes and devices: None. Lungs and pleura: Lungs are clear. No pleural effusions or pneumothorax. Mediastinum: Mediastinal contours are normal. Heart size is normal. Bones and chest wall: No suspicious bony abnormalities. Soft tissues appear unremarkable. IMPRESSION: No acute cardiopulmonary findings Approved by: Santy Altamirano M.D. on 10/13/2023 at 18:33
[2023-10-13 13:16] LABS: Add Manual Diff / Slide Review NO; Basophils Absolute Auto 100 /uL (0-100); Basophils Percent Auto 0.9 % (0-2); Eosinophils Absolute Auto 100 /uL (0-450); Eosinophils Percent Auto 1.3 % (2-4); Hemoglobin 12.9 g/dL (12.0-16.0); Lymphocytes Absolute Auto 900 /uL (1100-4500); Lymphocytes Percent Auto 13.6 % (25-40); Mean Corpuscular Hemoglobin 31.2 PG (26-34); Mean Corpuscular Volume 91.6 fL (80-100); Monocytes Absolute Auto 200 /uL (0-900); Monocytes Percent Auto 2.4 % (3-14); Neutrophils Absolute Auto 5700 /uL (1500-7000); Neutrophils Percent Auto 81.8 % (50-75); Platelet Count 244 X10^3/uL (150-400); Red Blood Cell Count 4.15 X10^6/uL (4.0-5.2); Red Cell Distribution Width 14.2 % (11.6-14.8)
[2023-10-13 13:28] LABS: Hemoglobin A1C% w Est Avg Glu 6.1 % (4.0-6.0)
[2023-10-13 13:39] LABS: HEMOLYSIS < 15 (0-50); Iron 63 ug/dL (37-170)
[2023-10-13 13:42] LABS: Alanine Aminotransferase 27 IU/L (<35); Albumin 4.7 g/dL (3.5-5.0); Albumin Globulin Ratio 2.2 (1.0-2.8); Alkaline Phosphatase 106 U/L (38-126); Aspartate Aminotransferase 25 IU/L (14-36); BUN Creatinine Ratio 16.3 (6-22); Bilirubin Total 0.4 mg/dL (0.2-1.3); Blood Urea Nitrogen 15 mg/dL (7-17); Calcium 9.9 mg/dL (8.4-10.2); Carbon Dioxide 26 mmol/L (22-32); Chloride 108 mmol/L (98-107); Estimated Glomerular Filt Rate > 60 mL/min (>60); Globulin 2.1 g/dL (1.7-4.1); Glucose 109 mg/dL (80-110); HEMOLYSIS < 15 (0-50); Magnesium 2.2 mg/dL (1.6-2.3); Potassium 4.1 mmol/L (3.4-5.1); Sodium 139 mmol/L (137-145); Total Protein 6.8 g/dL (6.3-8.2)
[2023-10-13 13:49] LABS: Percent Iron Saturation 21 % (15-50); Total Iron Binding Capacity 301 ug/dL (265-497); Transferrin 242 mg/dL (206-381)
[2023-10-13 13:53] LABS: Free T3, Triiodothyronine Free 4.29 pg/mL (2.77-5.27)
[2023-10-13 14:06] LABS: Thyroid Stimulating Hormone 0.882 uIU/mL (0.47-4.68)
[2023-10-13 14:26] LABS: Vitamin B12 987 pg/mL (239-931)
== END ==
PROVIDERS: Family Provider Nurse Practitioner; PCP Nurse Practitioner; Referring Provider Nurse Practitioner; Visit Provider Nurse Practitioner
DX: R06.02 Shortness of breath (principal); R73.01 Impaired fasting glucose; R53.83 Other fatigue; R05.9 Cough, unspecified; M79.89 Other specified soft tissue disorders; E88.40 Mitochondrial metabolism disorder, unspecified; G70.9 Myoneural disorder, unspecified; F43.21 Adjustment disorder with depressed mood; K76.0 Fatty (change of) liver, not elsewhere classified; M81.0 Age-related osteoporosis without current pathological fracture; E78.5 Hyperlipidemia, unspecified; I10 Essential (primary) hypertension
CPT/HCPCS: 36415; 71046; 80053; 82607; 83036; 83540; 83550; 83735; 84439; 84443; 84481; 85025